=== PATIENT | female | born 1935 | race Caucasian/White ===

== ENCOUNTER → 2017-12-06 15:21 | Outpatient (CLI) | payer MEDICARE, OTHER, SELFPAY | PROVIDERS: Family Provider Family Medicine; PCP Family Medicine; Visit Provider Family Medicine | DX: M81.0 Age-related osteoporosis without current pathological fracture (principal); Z78.0 Asymptomatic menopausal state | CPT/HCPCS: 77080 ==

== ENCOUNTER → 2018-04-05 14:19 | Outpatient (CLI) | payer MEDICARE, OTHER, SELFPAY ==
--- NOTE | 2018-04-05 | DI.MG.S_ITS ---
BILATERAL DIGITAL SCREENING MAMMOGRAM 3D/2D WITH CAD: 04/05/2018 CLINICAL: Routine screening. Family history of breast cancer. Comparison is made to exams dated: 03/01/2017 mammogram, 01/13/2016 mammogram, and 01/11/2015 mammogram - [facility]. There are scattered fibroglandular elements in both breasts. Current study was also evaluated with a Computer Aided Detection (CAD) system. No significant masses, calcifications, or other findings are seen in either breast. There has been no significant interval change. IMPRESSION: NEGATIVE There is no mammographic evidence of malignancy. A 1 year screening mammogram is recommended. This exam was interpreted at Station ID: [id number]. NOTE: For mammograms, a report in lay terms will be sent to the patient. Approximately 15% of breast malignancies will not be visualized mammographically. In the management of a palpable breast mass, a negative mammogram must not discourage biopsy of a clinically suspicious lesion. Electronically Signed By: Ihsan grover/wilma:04/05/2018 16:39:50 letter sent: Normal Exam ACR BI-RADS Category 1: Negative [id number]
== END ==
PROVIDERS: Family Provider Family Medicine; PCP Family Medicine; Visit Provider Family Medicine
DX: Z12.31 Encounter for screening mammogram for malignant neoplasm of breast (principal); Z80.3 Family history of malignant neoplasm of breast
CPT/HCPCS: 77063; 77067

== ENCOUNTER → 2018-10-23 12:07 | Outpatient (CLI) | payer MEDICARE, OTHER, SELFPAY ==
--- NOTE | 2018-10-23 | DI.RAD.S_ITS ---
PROCEDURE: XR THORACIC SPINE 2V INDICATIONS: Pain in thoracic spine TECHNIQUE: 3 views of the thoracic spine were acquired. COMPARISON: None. FINDINGS: Motion artifact limits evaluation of the lateral spine. Bones: No fractures or dislocations. No suspicious bony lesions. Severe degenerative changes are present within the lower thoracic spine including intervertebral disc space narrowing, endplate sclerosis, and osteophytosis. 12 pairs of ribs are noted, and appear intact where visualized. Soft tissues: No paravertebral stripe thickening. Scattered atheromatous calcifications are visualized within the thoracic aorta. IMPRESSION: Thoracic spine osteoarthritis and aortic atherosclerosis. Dictated by: Jailene Julien M.D. on 10/23/2018 at 14:33 Approved by: Jailene Julien M.D. on 10/23/2018 at 14:34
== END ==
PROVIDERS: Family Provider Family Medicine; PCP Family Medicine; Visit Provider Family Medicine
DX: M47.894 Other spondylosis, thoracic region (principal); M54.6 Pain in thoracic spine
CPT/HCPCS: 72070

== ENCOUNTER → 2019-01-20 15:53 | Outpatient (CLI) | payer MEDICARE, OTHER, SELFPAY ==
--- NOTE | 2019-01-20 | DI.RAD.S_ITS ---
PROCEDURE: XR FOOT RT MIN 3V INDICATIONS: Right Foot Pain TECHNIQUE: 3 views of the foot were acquired. COMPARISON: None. FINDINGS: Bones: Diffuse osteopenia. No acute fractures or dislocations. Plantar calcaneal spurring. Multilevel degenerative changes predominantly involving the interphalangeal joints of the first through fifth toes. The distal interphalangeal joints and great toe interphalangeal joint are most pronounced. No osseous erosions or periarticular osteopenia. No suspicious bony lesions. Soft tissues: No tibiotalar joint effusion. Achilles tendon appears normal. IMPRESSION: 1. 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 2. Plantar calcaneal spurring. 3. Diffuse osteopenia. No evidence for erosive/inflammatory arthropathy. Dictated by: Ronald Mitchell M.D. on 01/20/2019 at 17:22 Approved by: Ronald Mitchell M.D. on 01/20/2019 at 17:25
== END ==
PROVIDERS: Family Provider Family Medicine; PCP Family Medicine; Visit Provider Family Medicine
DX: M79.671 Pain in right foot (principal); M77.31 Calcaneal spur, right foot; M85.871 Other specified disorders of bone density and structure, right ankle and foot
CPT/HCPCS: 73630

== ENCOUNTER → 2019-05-05 14:06 | Outpatient (CLI) | payer MEDICARE, OTHER, SELFPAY ==
--- NOTE | 2019-05-05 | DI.MG.S_ITS ---
BILATERAL DIGITAL SCREENING MAMMOGRAM 3D/2D WITH CAD: 05/05/2019 CLINICAL: Routine screening. Family history of breast cancer. Comparison is made to exams dated: 04/05/2018 mammogram, 03/01/2017 mammogram, and 01/13/2016 mammogram - [facility]. There are scattered fibroglandular elements in both breasts. Current study was also evaluated with a Computer Aided Detection (CAD) system. No significant masses, calcifications, or other findings are seen in either breast. There has been no significant interval change. IMPRESSION: NEGATIVE There is no mammographic evidence of malignancy. A 1 year screening mammogram is recommended. This exam was interpreted at Station ID: [id number]. NOTE: For mammograms, a report in lay terms will be sent to the patient. Approximately 15% of breast malignancies will not be visualized mammographically. In the management of a palpable breast mass, a negative mammogram must not discourage biopsy of a clinically suspicious lesion. Electronically Signed By: Ihsan grover/wilma:05/05/2019 15:06:03 letter sent: Normal Exam ACR BI-RADS Category 1: Negative [id number]
== END ==
PROVIDERS: Family Provider Family Medicine; PCP Family Medicine; Referring Provider Family Medicine; Visit Provider Family Medicine
DX: Z12.31 Encounter for screening mammogram for malignant neoplasm of breast (principal); Z80.3 Family history of malignant neoplasm of breast
CPT/HCPCS: 77063; 77067

== ENCOUNTER → 2020-01-13 11:03 | Outpatient (CLI) | payer MEDICARE, OTHER, SELFPAY ==
--- NOTE | 2020-01-13 | DI.RAD.S_ITS ---
PROCEDURE: FL BARIUM SWALLOW W SPEECH INDICATIONS: Other specified symptoms and signs involving the c COMPARISON: TECHNIQUE: Examination was conducted in conjunction with speech pathology per standard protocol. In the lateral projection, filming was performed of the patient swallowing. AP projection filming may also be performed with patient swallowing. COMPARISON: [facility], , CHEST 1 VIEW, 10/13/2015, 19:57. FINDINGS: Function: The oral preparatory phase is within normal limits, with proper containment. The subsequent oral propulsive phase is delayed. There is vallecular pooling which persists throughout the exam. There is intermittent piriform sinus pooling. No laryngotracheal penetration or aspiration demonstrated. Barium tablet transit was not delayed. Morphology: No strictures. Note a large hiatal hernia is seen on remote CXR from 2016. IMPRESSION: Persistent abnormal vallecular pooling throughout the exam. No aspiration. Please see separately prepared speech pathology report. Dictated by: Juan R Quezada M.D. on 01/13/2020 at 12:16 Approved by: Juan R Quezada M.D. on 01/13/2020 at 12:20
== END ==
PROVIDERS: Family Provider Family Medicine; PCP Family Medicine; Referring Provider Family Medicine; Visit Provider Family Medicine
DX: R09.89 Other specified symptoms and signs involving the circulatory and respiratory systems (principal); K44.9 Diaphragmatic hernia without obstruction or gangrene
CPT/HCPCS: 74230; 92611

== ENCOUNTER → 2020-05-05 12:42 | Outpatient (CLI) | payer MEDICARE, OTHER, SELFPAY ==
--- NOTE | 2020-05-05 | DI.RAD.S_ITS ---
PROCEDURE: XR DEXA AXIAL SKELETON INDICATIONS: Z78.0 COMPARISON: [facility], CR, XR DEXA AXIAL SKELETON, 12/06/2017, 15:54. FINDINGS: This blank DEXA report has been sent in error by the PACS system. The correct and complete report will be forthcoming in 1-2 days. Thank you for your patience and understanding. Dictated by: Radha Rodriguez MD, PhD on 05/05/2020 at 17:27 Approved by: Radha Rodriguez MD, PhD on 05/05/2020 at 17:27
== END ==
PROVIDERS: Family Provider Family Medicine; PCP Family Medicine; Referring Provider Family Medicine; Visit Provider Family Medicine
DX: M85.852 Other specified disorders of bone density and structure, left thigh (principal); Z78.0 Asymptomatic menopausal state; Z82.62 Family history of osteoporosis
CPT/HCPCS: 77080

== ENCOUNTER → 2020-05-07 10:12 | Outpatient (CLI) | payer MEDICARE, OTHER, SELFPAY ==
--- NOTE | 2020-05-07 10:14 | DI.RAD.S_ITS ---
PROCEDURE: XR THORACIC SPINE 3V INDICATIONS: THORACIC SPINE PAIN, CERVICAL DJD TECHNIQUE: 3 views of the thoracic spine were acquired. COMPARISON: [facility], CR, XR THORACIC SPINE 2V, 10/23/2018, 12:17. FINDINGS: Bones: No fractures or dislocations. No suspicious bony lesions. Mild rightward scoliosis of thoracic spine centered at T6-7 level is seen with compensatory leftward scoliosis of lumbar spine centered at L2-3 level slightly more exaggerated compared to 2019 study. Degenerative endplate changes throughout mid to lower thoracic spine is again seen, not significantly changed from prior study. 12 pairs of ribs are noted, and appear intact where visualized. Soft tissues: No paravertebral stripe thickening. IMPRESSION: No acute thoracic spine fracture or dislocation. Scoliosis of thoracolumbar spine slightly more exaggerated since previous study. 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 Dictated by: Jani Sims M.D. on 05/07/2020 at 12:11 Approved by: Jani Sims M.D. on 05/07/2020 at 12:13
--- NOTE | 2020-05-07 10:14 | DI.RAD.S_ITS ---
PROCEDURE: XR CERVICAL SPINE 2V OR 3V INDICATIONS: THORACIC SPINE PAIN, CERVICAL DJD TECHNIQUE: 3 view(s) of the cervical spine were acquired. COMPARISON: None. FINDINGS: Bones: No fractures or dislocations to the C7-T1 level. There is straightening of normal cervical lordosis. Degenerative endplate changes and decreased intervertebral disc space at C4-5 through C6-7 levels are seen. The lateral masses of C1 appear intact on the odontoid view. No suspicious bony lesions. Soft tissues: No prevertebral soft tissue swelling. IMPRESSION: No cervical spine fracture or dislocation. Degenerative disc disease throughout mid to lower cervical spine. Dictated by: Jani Sims M.D. on 05/07/2020 at 12:10 Approved by: Jani Sims M.D. on 05/07/2020 at 12:10
== END ==
PROVIDERS: Family Provider Family Medicine; PCP Family Medicine; Referring Provider Family Medicine; Visit Provider Family Medicine
DX: M47.812 Spondylosis without myelopathy or radiculopathy, cervical region (principal); M50.321 Other cervical disc degeneration at C4-C5 level; M41.85 Other forms of scoliosis, thoracolumbar region; M51.34 Other intervertebral disc degeneration, thoracic region
CPT/HCPCS: 72040; 72072

== ENCOUNTER → 2020-05-14 10:08 | Outpatient (CLI) | payer MEDICARE, OTHER, SELFPAY ==
--- NOTE | 2020-05-14 10:11 | DI.MG.S_ITS ---
BILATERAL DIGITAL SCREENING MAMMOGRAM 3D/2D WITH CAD: 05/14/2020 CLINICAL: Routine screening. Family history of breast cancer. Comparison is made to exams dated: 05/05/2019 mammogram, 04/05/2018 mammogram, 03/01/2017 mammogram, 01/13/2016 mammogram, and 01/11/2015 mammogram - . There are scattered fibroglandular elements in both breasts. Current study was also evaluated with a Computer Aided Detection (CAD) system. No significant masses, calcifications, or other findings are seen in either breast. There has been no significant interval change. IMPRESSION: NEGATIVE There is no mammographic evidence of malignancy. A 1 year screening mammogram is recommended. This exam was interpreted at Station ID: [id number]. NOTE: For mammograms, a report in lay terms will be sent to the patient. Approximately 15% of breast malignancies will not be visualized mammographically. In the management of a palpable breast mass, a negative mammogram must not discourage biopsy of a clinically suspicious lesion. Electronically Signed By: Juan R denney/wilma:05/14/2020 13:43:36 letter sent: Normal Exam ACR BI-RADS Category 1: Negative [id number]
== END ==
PROVIDERS: Family Provider Family Medicine; PCP Family Medicine; Referring Provider Family Medicine; Visit Provider Family Medicine
DX: Z12.31 Encounter for screening mammogram for malignant neoplasm of breast (principal); Z80.3 Family history of malignant neoplasm of breast
CPT/HCPCS: 77063; 77067

== ENCOUNTER → 2020-06-11 13:17 | Outpatient (CLI) | payer MEDICARE, OTHER, SELFPAY ==
[2020-06-11] MEDS: COVID-19 VACC, Ad26(JANSSEN)/PF 0.5 ML IM (13:24)
== END ==
PROVIDERS: Family Provider Family Medicine; PCP Family Medicine; Visit Provider Internal Medicine
DX: Z23 Encounter for immunization (principal)
CPT/HCPCS: 0031A; 91303

== ENCOUNTER → 2020-06-29 11:50 | Outpatient (CLI) | payer MEDICARE, OTHER, SELFPAY ==
--- NOTE | 2020-06-29 11:52 | DI.RAD.S_ITS ---
PROCEDURE: XR LUMBAR SPINE MIN 4V INDICATIONS: Scoliosis TECHNIQUE: 5 views of the lumbar spine acquired, including flexion and extension views. COMPARISON: None. FINDINGS: Bones: 5 nonrib-bearing vertebrae are present. Moderate levoscoliosis. Severe multilevel disc degeneration,. Moderate to severe L4-L5 and L5-S1 facet joint arthropathy. Bones are osteopenic. No vertebral body compression fractures. No suspicious bony lesions. Soft tissues: Overlying bowel gas pattern is normal. No suspicious soft tissue calcifications. Vascular calcifications indicate atherosclerosis. IMPRESSION: Multilevel spondylosis and diffuse osteopenia. Dictated by: Nilton Whittingtno [facility] Interpreted: Edgar Hart MD on 06/29/2020 at 17:30 Approved by: Edgar Hart M.D. on 06/30/2020 at 15:24
--- NOTE | 2020-06-29 11:56 | DI.MRI.S_ITS ---
PROCEDURE: MR LUMBAR SPINE WO CON INDICATIONS: SCOLIOSIS TECHNIQUE: Noncontrast sagittal T1 spin echo and T2 fast echo, sagittal STIR, axial T1 and T2 fast spin echo through the lumbar spine. In cases with scoliosis, additional coronal T2 fast spin echo may be performed. COMPARISON: None. FINDINGS: Image quality: Excellent. Alignment and Curvature: There is trace L3-L4 retrolisthesis. There is trace L5-S1 anterolisthesis. There is approximately 22? of convex left thoracolumbar spine scoliosis. Bone Marrow: Marrow is of normal overall signal. No acute vertebral body compression fractures. Spinal Cord: Conus medullaris terminates at the L1 level. Visualized cord demonstrates normal signal and size. Paraspinous Soft Tissues: No paravertebral masses. T12-L1: Loss of disc signal and height. Mild, diffuse disc bulge. Mild bilateral facet hypertrophy. Mild narrowing of the central canal. No neural foraminal narrowing. No neural compression. L1-L2: Near complete loss of disc substance. Mild bilateral facet hypertrophy. No central stenosis. Mild right neural foraminal narrowing. No neural compression. L2-L3: Loss of disc signal and height. Mild, diffuse disc bulge. Mild bilateral facet hypertrophy. Mild narrowing of the central canal. Mild bilateral neural foraminal narrowing. No neural compression L3-L4: Loss of disc signal and height. Mild, diffuse disc bulge. Mild, diffuse disc bulge. Moderate bilateral facet hypertrophy. Mild to moderate narrowing of the central canal. Moderate bilateral neural foraminal narrowing. No neural compression. L4-L5: Loss of disc signal and height. Mild, diffuse disc bulge. Moderate bilateral facet hypertrophy. Mild narrowing of the central canal. Mild right and moderate left neural foraminal narrowing. No neural compression. L5-S1: Loss of disc signal. Mild, diffuse disc bulge. Moderate bilateral facet hypertrophy. No central stenosis. Mild right and moderate left neural foraminal narrowing. No neural compression. IMPRESSION: 1. Convex left scoliosis. 2. Multilevel degenerative disease. 3. Multilevel facet arthropathy. 4. No severe central canal narrowing. 5. No severe neural foraminal narrowing. 6. No neural compression. Dictated by: Radha Rodriguez MD, PhD on 06/29/2020 at 16:24 Approved by: Radha Rodriguez MD, PhD on 06/29/2020 at 16:59
== END ==
PROVIDERS: Family Provider Family Medicine; PCP Family Medicine; Referring Provider Physical Medicine & Rehabilitation; Visit Provider Physical Medicine & Rehabilitation
DX: M41.85 Other forms of scoliosis, thoracolumbar region (principal); M54.5 Low back pain; M51.36 Other intervertebral disc degeneration, lumbar region; M51.37 Other intervertebral disc degeneration, lumbosacral region; M47.816 Spondylosis without myelopathy or radiculopathy, lumbar region; M47.817 Spondylosis without myelopathy or radiculopathy, lumbosacral region; M48.00 Spinal stenosis, site unspecified
CPT/HCPCS: 72110; 72148

== ENCOUNTER → 2020-08-03 08:04 | Outpatient (CLI) | payer MEDICARE, OTHER, SELFPAY ==
[2020-08-03 15:26] LABS: COVID19 -Nasal RAPID Negative (Negative)
== END ==
PROVIDERS: Family Provider Family Medicine; PCP Family Medicine; Visit Provider Physical Medicine & Rehabilitation
DX: Z20.822 Contact with and (suspected) exposure to COVID-19 (principal)
CPT/HCPCS: 87635; C9803

== ENCOUNTER 2020-08-05 12:52 | Outpatient (CLI) | payer MEDICARE, OTHER, SELFPAY ==
[2020-08-05] VITALS (9 sets, daily range): BP systolic 119–188; BP diastolic 56–83; PULSE 60–84; RESP 17–23; TEMP 37.1; O2SAT 96–100
--- NOTE | 2020-08-05 12:54 | DI.RAD.S_ITS ---
PROCEDURE: PAIN L INTERLAMINAR/CAUDAL INJ INDICATIONS: SPONDYLOSIS COMPARISON: [facility], CR, XR LUMBAR SPINE MIN 4V, 06/29/2020, 12:36. FINDINGS: Fluoroscopic spot filming was performed to verify placement of a spinal needle at the L5-S1 level, as labeled on the films. Appropriate location of the needle tip was confirmed by injection of iodinated contrast. IMPRESSION: No significant intraprocedural abnormality. Dictated by: Arron Coleman M.D. on 08/05/2020 at 13:18 Approved by: Arron Coleman M.D. on 08/05/2020 at 13:19
[2020-08-05] MEDS: MIDAZOLAM 5 MG/5 ML VIAL IV (13:37)
[2020-08-05] MEDS: BETAMETHASONE 30 MG/5 ML MDV 6 MG INJ (13:42)
[2020-08-05] MEDS: IOPAMIDOL 15 ML VIAL 3 ML INJ (13:42)
[2020-08-05] MEDS: BUPIVACAINE 0.25% (PF) VIAL 2 ML INJ (13:42)
[2020-08-05] MEDS: DEXAMETHASONE 10 MG/ML VIAL 20 MG INJ (13:43)
--- NOTE | 2020-08-05 13:55 | PM.PROC.IR.1 ---
Date/Time/Diagnoses Date of procedure: 08/05/20 Time of procedure: 13:55 Pre-procedure diagnosis: 1. HNP WITH RADICULAR FEATURES, 2. MULTILEVEL CENTRAL STENOSIS, Post-procedure diagnosis: same Procedure Notes Procedure: 1. FLUOROSCOPICALLY GUIDED CONTRAST CONTROLLED INTERLAMINAR EPIDURAL STEROID INJECTION - L5/S1 Indications: Stacey is referred by Dr. Sheridan for treatment of Bilateral Foraminal Stenosis L>R LE symptoms. Physician: Al Kunz Total Fluoroscopy time (seconds): 10 Total sedation minutes: 11 Complications: none Procedure in detail & Post-procedure care: FINDINGS Multilevel Central Spinal Stenosis with Nerve Root Compression DESCRIPTION OF PROCEDURE Fluoroscopically guided, contrast-controlled L5/S1 translaminar epidural steroid injection. Following review of allergy and review of potential side effects and complications, including, but not necessarily limited to, infection, allergic reaction, local tissue breakdown, temporary as well as permanent nerve injury, paralysis, stroke and possible , the patient indicated that the patient understood and agreed to proceed. An informed consent document was signed by the patient, witnessed by a nurse, and placed in the patient's chart. Additionally, other treatment options including modalities, medications, and physical therapy were reviewed with the patient. After review of previous anaesthesic history and IV conscious sedation the patient was deemed safe to proceed with today?s procedure with IV conscious sedation as ASA class II designation. Safety time-out was performed to confirm patient ID, procedure to be performed and site of procedure. IV sedation was accomplished with a combination of 1mg of Versed administered by the RN after DO order, titrated to patient comfort during the course of the procedure while the patient remained responsive to all verbal commands. In the prone position, following sterile prep and drape of the lumbar region, the L5/S1 translaminar space was identified fluoroscopically. The skin was anesthetized via a 25-gauge, 1.5-inch needle with 1% lidocaine solution. At this point, a 22-gauge short bevel spinal needle was atraumatically introduced and advanced under fluoroscopic guidance into the region of the L5/S1 translaminar space. Depth was confirmed on lateral view. Radiological data, including multiple fluoroscopic views of the lumbar spine, reveal a spinal needle at the L5/S1 translaminar space. Lateral views then show placement of the needle in the epidural space. Subsequent views show contrast material flowing superiorly and inferiorly in the epidural space. No vascular or intrathecal uptake is observed. At this point, using loss of resistance technique with saline and air, the epidural space was entered. This was confirmed following negative aspiration with injection of approximately 1.5cc of Isovue 200, showing excellent epidural flow without vascular or intrathecal uptake. At this point, 1cc of 1% lidocaine solution combined with 3cc or 20mg of dexamethasone and 6mg of betamethasone was injected without incident. The patent tolerated the procedure without signs of symptoms of complications prior to transfer to the recovery area for further monitoring. The patient was then transferred to the recovery area where they were observed for an appropriate period of time after the injection. The patient reported a VAS score of 6 prior to the procedure and a post-procedure VAS of 0. POST OP INSTRUCTIONS The patient was provided a Pain Log to continue to record their response to the target-specific procedure prior to follow-up visit with their referring physician. Additionally, specific post-injection care instructions and a contact number to our office were provided if concerns arise regarding possible complications associated with the procedure are suspected.
== END 2020-08-05 14:27 | disposition home or self-care (01) ==
LOC: RAD 12:53
PROVIDERS: Family Provider Family Medicine; PCP Family Medicine; Referring Provider Family Medicine; Visit Provider Physical Medicine & Rehabilitation
DX: M51.17 Intervertebral disc disorders with radiculopathy, lumbosacral region (principal); M48.07 Spinal stenosis, lumbosacral region
CPT/HCPCS: 62323; 99152; J0702; J1100; J2250; J3010

== ENCOUNTER 2020-08-18 13:45 | Outpatient (RCR) | payer MEDICARE, OTHER, SELFPAY ==
--- NOTE | 2017-08-06 16:52 | PT.OTN ---
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 All documentation prior to July 31 can be found under [employer] saved data. From July 31 forward all medical record documentation will be in [employer] 6.1.
--- NOTE | 2017-08-06 17:42 | PT.OTN ---
Current Diagnoses Scoliosis, unspecified (08/06/17) Spondylosis without myelopathy or radiculopathy, cervical region (08/06/17) Other intervertebral disc degeneration, lumbosacral region (08/06/17) Pain in thoracic spine (08/06/17) Physical Therapy Treatment Note PT-OP-A Visit Information Start: 08/06/17 17:30 Freq: Status: Active Protocol: Activity Type Activity Date Activity User E-Sign Co-Sign Detail Recorded Client Recorded Date Recorded By Document 08/06/17 14:30 [facility] [id number] 08/06/17 17:42 [facility] 08/06/17 14:30 Out-Patient Physical Therapy Visit Information [Visit Information] -Visit Type Treatment Note -Visit Start Time 14:30 -Visit Stop Time 15:15 -Total Visit Minutes 45 -Visit Number 10 -Number of ELECTRICAL DESIGNER DRAFTER Visits 0 [Evaluation Information] -Evaluation Date 05/28/17 PT-OP-C Subjective Start: 08/06/17 17:30 Freq: Status: Active Protocol: Activity Type Activity Date Activity User E-Sign Co-Sign Detail Recorded Client Recorded Date Recorded By Document 08/06/17 14:30 [facility] [id number] 08/06/17 17:42 [facility] 08/06/17 14:30 OP-PT Subjective [Patient Comments] -Patient Comments My shoulder has been feeling reasonably well , but my ribs have started to rub on my pelvis again. -Patient Reported Progress Same PT-OP-Q Treatments Start: 08/06/17 17:30 Freq: Status: Active Protocol: Activity Type Activity Date Activity User E-Sign Co-Sign Detail Recorded Client Recorded Date Recorded By Document 08/06/17 14:30 [facility] [id number] 08/06/17 17:42 [facility] 08/06/17 14:30 Cardio Equipment [Upper Body Ergometer (UBE)] -Duration (Minutes) 5 -RPM 60 -Height 2.5 Therapeutic Exercises [Supine Exercises] 1 -Supine Exercise Name Supine on Towel roll at T10-12 -Side bilateral -Comments increase thoracolumbar extension Manual Therapy Treatment [Soft Tissue Mobilization] 3 -Body Location Quadratus Lumborum -Mobilization Type Myofascial Release Strumming Sustained Pressure -Intensity/Depth Moderate -Body Position Sidelying 2 -Body Location Glute Med -Mobilization Type Strumming Sustained Pressure -Intensity/Depth Moderate -Body Position Sidelying 1 -Body Location Lumbar Erector Spinae -Mobilization Type Myofascial Release Sustained Pressure -Intensity/Depth Moderate -Body Position Sidelying [Joint Mobilizations] 1 -Joint Thoracic Spine -Direction P->A -Grade III -Body Position Sidelying [Manual Traction] Lumbar -Details Hip/Iliac crest depression -Body Position Sidelying PT-OP-T Assessment and Plan Start: 08/06/17 17:30 Freq: Status: Active Protocol: Activity Type Activity Date Activity User E-Sign Co-Sign Detail Recorded Client Recorded Date Recorded By Document 08/06/17 14:30 [facility] [id number] 08/06/17 17:42 [facility] 08/06/17 14:30 Physical Therapy Assessment [Rehab Potential] -Rehabilitation Potential Good [Impairments] -Impairments Functional Mobility Pain Posture ROM Soft Tissue Mobility Strength Tone [Progress Towards Goals] -Progress Towards Goals Slow Progress due to Medical Issues [Assessment Summary] -Assessment Pt continues to have difficulty based on severe Thoracic kyphosis, therapy helping to improve posture and mobility, however following therapy, she only notices benefits for a limited 2-3 days, and then returns to her normal posture. Physical Therapy Plan [Frequency and Duration] -Frequency of Treatment 1x/Week -Plan of Care Start Date 07/30/17 -Plan of Care End Date 10/07/17 [Therapeutic Interventions] -Therapeutic Interventions Aquatic Therapy Home Exercise Program Joint Mobilizations Manual Therapy Neuromuscular Re-education Self-Care/Home Management Soft Tissue Mobilization Therapeutic Exercises -Modalities Cold Pack/Ice Massage Electric Stimulation Hot Packs [Next Visit Focus/Plan] -Next Visit Plan Continued Manual therapy and posture training to help limit thoracic kyphosis
--- NOTE | 2017-08-13 15:44 | PT.OTN ---
Current Diagnoses Scoliosis, unspecified (08/13/17) Spondylosis without myelopathy or radiculopathy, cervical region (08/13/17) Other intervertebral disc degeneration, lumbosacral region (08/13/17) Pain in thoracic spine (08/13/17) Physical Therapy Treatment Note PT-OP-A Visit Information Start: 08/06/17 17:30 Freq: Status: Active Protocol: Document 08/13/17 14:30 DCW (Rec: 08/13/17 15:44 DCW [id number]) Out-Patient Physical Therapy Visit Information Visit Information Visit Type Treatment Note Visit Start Time 14:30 Visit Stop Time 15:15 Total Visit Minutes 45 Visit Number 11 Number of EXTRACT MIXER Visits 0 Evaluation Information Evaluation Date 05/28/17 PT-OP-C Subjective Start: 08/06/17 17:30 Freq: Status: Active Protocol: Document 08/13/17 14:30 DCW (Rec: 08/13/17 15:44 DCW [id number]) OP-PT Subjective Patient Comments Patient Comments I was doing well until I decided to get out and pull some weeds today and then finish up my laundry. Patient Reported Progress Improving PT-OP-Q Treatments Start: 08/06/17 17:30 Freq: Status: Active Protocol: Document 08/13/17 14:30 DCW (Rec: 08/13/17 15:44 DCW [id number]) Cardio Equipment Upper Body Ergometer (UBE) Duration (Minutes) 5 RPM 60 Height 2.5 Therapeutic Exercises Supine Exercises 1 Supine Exercise Name Supine on Towel roll at T10-12 Side bilateral Comments increase thoracolumbar extension Manual Therapy Treatment Soft Tissue Mobilization 3 Body Location Quadratus Lumborum Mobilization Type Myofascial Release Strumming Sustained Pressure Intensity/Depth Moderate Body Position Sidelying 2 Body Location Glute Med Mobilization Type Strumming Sustained Pressure Intensity/Depth Moderate Body Position Sidelying 1 Body Location Lumbar Erector Spinae Mobilization Type Myofascial Release Sustained Pressure Intensity/Depth Moderate Body Position Sidelying Joint Mobilizations 1 Joint Thoracic Spine Direction P->A Grade III Body Position Sidelying Manual Traction Lumbar Details Hip/Iliac crest depression Body Position Sidelying PT-OP-T Assessment and Plan Start: 08/06/17 17:30 Freq: Status: Active Protocol: Document 08/13/17 14:30 DCW (Rec: 08/13/17 15:44 DCW [id number]) Physical Therapy Assessment Rehab Potential Rehabilitation Potential Good Impairments Impairments Functional Mobility Pain Posture ROM Soft Tissue Mobility Strength Tone Progress Towards Goals Progress Towards Goals Slow Progress due to Medical Issues Assessment Summary Assessment Pt reports she felt good following last week, which was more manual therapy than normal for her. Pt tolerated it well, and had fewer complaints of her rib rubbing her pelvis. Physical Therapy Plan Frequency and Duration Frequency of Treatment 1x/Week Plan of Care Start Date 07/30/17 Plan of Care End Date 10/07/17 Therapeutic Interventions Therapeutic Interventions Aquatic Therapy Home Exercise Program Joint Mobilizations Manual Therapy Neuromuscular Re-education Self-Care/Home Management Soft Tissue Mobilization Therapeutic Exercises Modalities Cold Pack/Ice Massage Electric Stimulation Hot Packs Next Visit Focus/Plan Next Visit Plan Continued Manual therapy and posture training to help limit thoracic kyphosis
--- NOTE | 2017-08-20 15:10 | PT.OTN ---
Current Diagnoses Scoliosis, unspecified (08/20/17) Spondylosis without myelopathy or radiculopathy, cervical region (08/20/17) Other intervertebral disc degeneration, lumbosacral region (08/20/17) Pain in thoracic spine (08/20/17) Physical Therapy Treatment Note PT-OP-A Visit Information Start: 08/06/17 17:30 Freq: Status: Active Protocol: Document 08/20/17 14:30 DCW (Rec: 08/20/17 15:10 DCW [id number]) Out-Patient Physical Therapy Visit Information Visit Information Visit Type Treatment Note Visit Start Time 14:30 Visit Stop Time 15:15 Total Visit Minutes 45 Visit Number 12 Number of LATEX SPOOLER Visits 0 Evaluation Information Evaluation Date 05/28/17 PT-OP-C Subjective Start: 08/06/17 17:30 Freq: Status: Active Protocol: Document 08/20/17 14:30 DCW (Rec: 08/20/17 15:10 DCW [id number]) OP-PT Subjective Patient Comments Patient Comments Pt reports her shoulder and thumbs are bothering her a little more today. PT-OP-Q Treatments Start: 08/06/17 17:30 Freq: Status: Active Protocol: Document 08/20/17 14:30 DCW (Rec: 08/20/17 15:10 DCW [id number]) Cardio Equipment Upper Body Ergometer (UBE) Duration (Minutes) 5 RPM 60 Seat Position 13 Height 2.5 Therapeutic Exercises Supine Exercises 1 Supine Exercise Name Supine on Towel roll at T10-12 Side bilateral Comments increase thoracolumbar extension Manual Therapy Treatment Soft Tissue Mobilization 3 Body Location Quadratus Lumborum Mobilization Type Myofascial Release Strumming Sustained Pressure Intensity/Depth Moderate Body Position Sidelying 2 Body Location Glute Med Mobilization Type Strumming Sustained Pressure Intensity/Depth Moderate Body Position Sidelying 1 Body Location Lumbar Erector Spinae Mobilization Type Myofascial Release Sustained Pressure Intensity/Depth Moderate Body Position Sidelying Joint Mobilizations 1 Joint Thoracic Spine Direction P->A Grade III Body Position Sidelying Manual Traction Lumbar Details Hip/Iliac crest depression Body Position Sidelying PT-OP-T Assessment and Plan Start: 08/06/17 17:30 Freq: Status: Active Protocol: Document 08/20/17 14:30 DCW (Rec: 08/20/17 15:10 DCW [id number]) Physical Therapy Assessment Rehab Potential Rehabilitation Potential Good Impairments Impairments Functional Mobility Pain Posture ROM Soft Tissue Mobility Strength Tone Progress Towards Goals Progress Towards Goals Slow Progress due to Medical Issues Assessment Summary Assessment Pt able to stand with less kyphosis following her session today. Physical Therapy Plan Frequency and Duration Frequency of Treatment 1x/Week Plan of Care Start Date 07/30/17 Plan of Care End Date 10/07/17 Therapeutic Interventions Therapeutic Interventions Aquatic Therapy Home Exercise Program Joint Mobilizations Manual Therapy Neuromuscular Re-education Self-Care/Home Management Soft Tissue Mobilization Therapeutic Exercises Modalities Cold Pack/Ice Massage Electric Stimulation Hot Packs Next Visit Focus/Plan Next Visit Plan Manual therapy and TherEx to limit further Kyphosis Please Sign and Return: I have reviewed this Plan of Care and certify that the skilled therapy services above are required to meet the patient???s needs. Physician Signature Date Printed Name and Credentials Clinical Instructor Signature Printed Name and Credentials
--- NOTE | 2017-09-03 15:05 | PT.OTN ---
Current Diagnoses Scoliosis, unspecified (09/03/17) Spondylosis without myelopathy or radiculopathy, cervical region (09/03/17) Other intervertebral disc degeneration, lumbosacral region (09/03/17) Pain in thoracic spine (09/03/17) Physical Therapy Treatment Note PT-OP-A Visit Information Start: 08/06/17 17:30 Freq: Status: Active Protocol: Document 09/03/17 14:25 DCW (Rec: 09/03/17 15:05 DCW [id number]) Out-Patient Physical Therapy Visit Information Visit Information Visit Type Treatment Note Visit Start Time 14:25 Visit Stop Time 15:10 Total Visit Minutes 45 Visit Number 13 Number of CARGO INSPECTOR Visits 0 Evaluation Information Evaluation Date 05/28/17 PT-OP-C Subjective Start: 08/06/17 17:30 Freq: Status: Active Protocol: Document 09/03/17 14:25 DCW (Rec: 09/03/17 15:05 DCW [id number]) OP-PT Subjective Patient Comments Patient Comments It's been a while, and I'm really feeling it. Pt notes she is pretty stiff and sore. PT-OP-Q Treatments Start: 08/06/17 17:30 Freq: Status: Active Protocol: Document 09/03/17 14:25 DCW (Rec: 09/03/17 15:05 DCW [id number]) Cardio Equipment Upper Body Ergometer (UBE) Duration (Minutes) 5 RPM 60 Seat Position 13 Height 2.5 Therapeutic Exercises Supine Exercises 1 Supine Exercise Name Supine on Towel roll at T10-12 Side bilateral Comments increase thoracolumbar extension Manual Therapy Treatment Soft Tissue Mobilization 3 Body Location Quadratus Lumborum Mobilization Type Myofascial Release Strumming Sustained Pressure Intensity/Depth Moderate Body Position Sidelying 2 Body Location Glute Med Mobilization Type Strumming Sustained Pressure Intensity/Depth Moderate Body Position Sidelying 1 Body Location Lumbar Erector Spinae Mobilization Type Myofascial Release Sustained Pressure Intensity/Depth Moderate Body Position Sidelying Joint Mobilizations 1 Joint Thoracic Spine Direction P->A Grade III Body Position Sidelying Manual Traction Lumbar Details Hip/Iliac crest depression Body Position Sidelying PT-OP-T Assessment and Plan Start: 08/06/17 17:30 Freq: Status: Active Protocol: Document 09/03/17 14:25 DCW (Rec: 09/03/17 15:05 DCW [id number]) Physical Therapy Assessment Rehab Potential Rehabilitation Potential Good Impairments Impairments Functional Mobility Pain Posture ROM Soft Tissue Mobility Strength Tone Progress Towards Goals Progress Towards Goals Slow Progress due to Medical Issues Assessment Summary Assessment Pt more sore than normal following her session today due to two weeks between treatment sessions led to increased tone. Physical Therapy Plan Frequency and Duration Frequency of Treatment 1x/Week Plan of Care Start Date 07/30/17 Plan of Care End Date 10/07/17 Therapeutic Interventions Therapeutic Interventions Aquatic Therapy Home Exercise Program Joint Mobilizations Manual Therapy Neuromuscular Re-education Self-Care/Home Management Soft Tissue Mobilization Therapeutic Exercises Modalities Cold Pack/Ice Massage Electric Stimulation Hot Packs Next Visit Focus/Plan Next Visit Plan Manual therapy and TherEx to limit further Kyphosis
--- NOTE | 2017-09-10 15:10 | PT.OTN ---
Current Diagnoses Scoliosis, unspecified (09/10/17) Spondylosis without myelopathy or radiculopathy, cervical region (09/10/17) Other intervertebral disc degeneration, lumbosacral region (09/10/17) Pain in thoracic spine (09/10/17) Physical Therapy Treatment Note PT-OP-A Visit Information Start: 08/06/17 17:30 Freq: Status: Active Protocol: Document 09/10/17 14:30 DCW (Rec: 09/10/17 15:10 DCW [id number]) Out-Patient Physical Therapy Visit Information Visit Information Visit Type Treatment Note Visit Start Time 14:30 Visit Stop Time 15:15 Total Visit Minutes 45 Visit Number 14 Number of RAW STOCK MACHINE FEEDER Visits 0 Evaluation Information Evaluation Date 05/28/17 PT-OP-C Subjective Start: 08/06/17 17:30 Freq: Status: Active Protocol: Document 09/10/17 14:30 DCW (Rec: 09/10/17 15:10 DCW [id number]) OP-PT Subjective Patient Comments Patient Comments It's Sunday, so I'm a little sore from all my weekend chores, but I'm alright. PT-OP-Q Treatments Start: 08/06/17 17:30 Freq: Status: Active Protocol: Document 09/10/17 14:30 DCW (Rec: 09/10/17 15:10 DCW [id number]) Cardio Equipment Upper Body Ergometer (UBE) Duration (Minutes) 5 RPM 60 Seat Position 13 Height 3 PT-OP-T Assessment and Plan Start: 08/06/17 17:30 Freq: Status: Active Protocol: Document 09/10/17 14:30 DCW (Rec: 09/10/17 15:10 DCW [id number]) Physical Therapy Assessment Rehab Potential Rehabilitation Potential Good Impairments Impairments Functional Mobility Pain Posture ROM Soft Tissue Mobility Strength Tone Progress Towards Goals Progress Towards Goals Slow Progress due to Medical Issues Assessment Summary Assessment Pt improved today vs last week , still limited ROM through spine, particularly in the thoracic spine. Physical Therapy Plan Frequency and Duration Frequency of Treatment 1x/Week Plan of Care Start Date 07/30/17 Plan of Care End Date 10/07/17 Therapeutic Interventions Therapeutic Interventions Aquatic Therapy Home Exercise Program Joint Mobilizations Manual Therapy Neuromuscular Re-education Self-Care/Home Management Soft Tissue Mobilization Therapeutic Exercises Modalities Cold Pack/Ice Massage Electric Stimulation Hot Packs Next Visit Focus/Plan Next Visit Plan Manual therapy and TherEx to limit further Kyphosis
--- NOTE | 2017-09-17 15:10 | PT.OTN ---
Current Diagnoses Scoliosis, unspecified (09/17/17) Spondylosis without myelopathy or radiculopathy, cervical region (09/17/17) Other intervertebral disc degeneration, lumbosacral region (09/17/17) Pain in thoracic spine (09/17/17) Physical Therapy Treatment Note PT-OP-A Visit Information Start: 08/06/17 17:30 Freq: Status: Active Protocol: Document 09/17/17 14:30 DCW (Rec: 09/17/17 15:10 DCW [id number]) Out-Patient Physical Therapy Visit Information Visit Information Visit Type Treatment Note Visit Start Time 14:30 Visit Stop Time 15:15 Total Visit Minutes 45 Visit Number 15 Number of TABLEAU DEVELOPER Visits 0 Evaluation Information Evaluation Date 05/28/17 PT-OP-C Subjective Start: 08/06/17 17:30 Freq: Status: Active Protocol: Document 09/17/17 14:30 DCW (Rec: 09/17/17 15:10 DCW [id number]) OP-PT Subjective Patient Comments Patient Comments Pt reports she had a stressful day after her dog got out of their yard and she spent the morning looking for it. PT-OP-Q Treatments Start: 08/06/17 17:30 Freq: Status: Active Protocol: Document 09/17/17 14:30 DCW (Rec: 09/17/17 15:10 DCW [id number]) Cardio Equipment Upper Body Ergometer (UBE) Duration (Minutes) 5 RPM 60 Seat Position 13 Height 3 Therapeutic Exercises Supine Exercises 1 Supine Exercise Name Supine on Towel roll at T10-12 Side bilateral Comments increase thoracolumbar extension Manual Therapy Treatment Soft Tissue Mobilization 3 Body Location Quadratus Lumborum Mobilization Type Myofascial Release Strumming Sustained Pressure Intensity/Depth Moderate Body Position Sidelying 2 Body Location Glute Med Mobilization Type Strumming Sustained Pressure Intensity/Depth Moderate Body Position Sidelying 1 Body Location Lumbar Erector Spinae Mobilization Type Myofascial Release Sustained Pressure Intensity/Depth Moderate Body Position Sidelying Manual Traction Lumbar Details Hip/Iliac crest depression Body Position Sidelying PT-OP-T Assessment and Plan Start: 08/06/17 17:30 Freq: Status: Active Protocol: Document 09/17/17 14:30 DCW (Rec: 09/17/17 15:10 DCW [id number]) Physical Therapy Assessment Rehab Potential Rehabilitation Potential Good Impairments Impairments Functional Mobility Pain Posture ROM Soft Tissue Mobility Strength Tone Progress Towards Goals Progress Towards Goals Slow Progress due to Medical Issues Assessment Summary Assessment Pt improved vs last week, even after her self-reported stressful morning, although lying supine on the towel roll did produce increased complaints of discomfort today . Physical Therapy Plan Frequency and Duration Frequency of Treatment 1x/Week Plan of Care Start Date 07/30/17 Plan of Care End Date 10/07/17 Therapeutic Interventions Therapeutic Interventions Aquatic Therapy Home Exercise Program Joint Mobilizations Manual Therapy Neuromuscular Re-education Self-Care/Home Management Soft Tissue Mobilization Therapeutic Exercises Modalities Cold Pack/Ice Massage Electric Stimulation Hot Packs Next Visit Focus/Plan Next Visit Plan Manual therapy and TherEx to limit further Kyphosis
--- NOTE | 2017-09-24 15:13 | PT.OTN ---
Current Diagnoses Scoliosis, unspecified (09/24/17) Spondylosis without myelopathy or radiculopathy, cervical region (09/24/17) Other intervertebral disc degeneration, lumbosacral region (09/24/17) Pain in thoracic spine (09/24/17) Physical Therapy Treatment Note PT-OP-A Visit Information Start: 08/06/17 17:30 Freq: Status: Active Protocol: Document 09/24/17 14:30 DCW (Rec: 09/24/17 15:13 DCW [id number]) Out-Patient Physical Therapy Visit Information Visit Information Visit Type Treatment Note Visit Start Time 14:30 Visit Stop Time 15:25 Total Visit Minutes 55 Visit Number 16 Number of DIALYSIS NURSE Visits 0 Evaluation Information Evaluation Date 05/28/17 PT-OP-C Subjective Start: 08/06/17 17:30 Freq: Status: Active Protocol: Document 09/24/17 14:30 DCW (Rec: 09/24/17 15:13 DCW [id number]) OP-PT Subjective Patient Comments Patient Comments Pt reports she has already had a busy day, but is feeling pretty good overall PT-OP-Q Treatments Start: 08/06/17 17:30 Freq: Status: Active Protocol: Document 09/24/17 14:30 DCW (Rec: 09/24/17 15:13 DCW [id number]) Cardio Equipment Upper Body Ergometer (UBE) Duration (Minutes) 5 RPM 60 Seat Position 13 Height 3 Therapeutic Exercises Supine Exercises 1 Supine Exercise Name Supine on Towel roll at T10-12 Side bilateral Comments increase thoracolumbar extension Manual Therapy Treatment Soft Tissue Mobilization 3 Body Location Quadratus Lumborum Mobilization Type Myofascial Release Strumming Sustained Pressure Intensity/Depth Moderate Body Position Sidelying 2 Body Location Glute Med Mobilization Type Strumming Sustained Pressure Intensity/Depth Moderate Body Position Sidelying 1 Body Location Lumbar Erector Spinae Mobilization Type Myofascial Release Sustained Pressure Intensity/Depth Moderate Body Position Sidelying Joint Mobilizations 1 Joint Thoracic Spine Direction P->A Grade III Body Position Sidelying Manual Traction Lumbar Details Hip/Iliac crest depression Body Position Sidelying PT-OP-R Modalities Start: 08/06/17 17:30 Freq: Status: Active Protocol: Document 09/24/17 14:30 DCW (Rec: 06/25/18 15:13 DCW [id number]) Electric Stimulation Electric Stimulation Interferential Current (IFC) Body Location Lumbar Spine Duration (Minutes) 15 Intensity 21 Patient Position Sitting Combined With Heat/Cold Hot Pack PT-OP-T Assessment and Plan Start: 08/06/17 17:30 Freq: Status: Active Protocol: Document 09/24/17 14:30 DCW (Rec: 09/24/17 15:13 DCW [id number]) Physical Therapy Assessment Rehab Potential Rehabilitation Potential Good Impairments Impairments Functional Mobility Pain Posture ROM Soft Tissue Mobility Strength Tone Progress Towards Goals Progress Towards Goals Slow Progress due to Medical Issues Assessment Summary Assessment Attempting addition of E-stim and MHP today, pt has previouly had this in past PT sessions, reports it seems to help with her pain and mobility. Physical Therapy Plan Frequency and Duration Frequency of Treatment 1x/Week Plan of Care Start Date 07/30/17 Plan of Care End Date 10/07/17 Therapeutic Interventions Therapeutic Interventions Aquatic Therapy Home Exercise Program Joint Mobilizations Manual Therapy Neuromuscular Re-education Self-Care/Home Management Soft Tissue Mobilization Therapeutic Exercises Modalities Cold Pack/Ice Massage Electric Stimulation Hot Packs Next Visit Focus/Plan Next Note Type Progress Note Next Visit Plan Manual therapy and TherEx to limit further Kyphosis
--- NOTE | 2017-10-04 15:34 | PT.OTN ---
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, lumbosacral region (10/04/17) Pain in thoracic spine (10/04/17) Physical Therapy Treatment Note PT-OP-A Visit Information Start: 08/06/17 17:30 Freq: Status: Active Protocol: Document 10/04/17 14:25 DCW (Rec: 10/04/17 15:34 [facility] [id number]) Out-Patient Physical Therapy Visit Information Visit Information Visit Type Progress Note Visit Start Time 14:25 Visit Stop Time 15:20 Total Visit Minutes 55 Visit Number 17 Number of TREATMENT PLANT MECHANIC Visits 0 Evaluation Information Evaluation Date 05/28/17 PT-OP-B Current Condition Start: 10/04/17 14:21 Freq: Status: Active Protocol: Document 10/04/17 14:25 DCW (Rec: 10/04/17 15:34 [facility] [id number]) Current Condition History of Current Condition History of Current Condition Please see patient's chart in Therapy Source for complete history and initial evaluation Current Functional Impairments (Reported) Functional Limitations- Recreation/ Pt unable to tolerate yard- Hobbies work more than 90 minutes without significant increased pain. PT-OP-C Subjective Start: 08/06/17 17:30 Freq: Status: Active Protocol: Document 10/04/17 14:25 DCW (Rec: 10/04/17 15:34 [facility] [id number]) OP-PT Subjective Patient Comments Patient Comments Pt reports she really needs the hot pack today after spending four hours out gardening yesterday. Patient Reported Progress Same OP-PT Pain Assessment Location Bilateral Back Pain Location Details Thoracic spine, distal ribs, superior hip Intensity 7 Scale Used Numeric (1 - 10) PT-OP-F Manual Assessment Start: 10/04/17 14:21 Freq: Status: Active Protocol: Document 10/04/17 14:25 DCW (Rec: 10/04/17 15:34 [facility] [id number]) Manual Assessments Soft Tissue Assessment Soft Tissue Mobility Assessment Moderate tone in Bilateral thoracic and lumbar paraspinals, piriformis, iliopsoas, and quadratus lumborum. Mild tone in bilateral hamstrings and adductor vinod PT-OP-J Posture/Palpation/Skin Start: 10/04/17 14:21 Freq: Status: Active Protocol: Document 10/04/17 14:25 DCW (Rec: 10/04/17 15:34 DCW [id number]) Posture Evaluation Position Standing Head/C-Spine Posture Forward Head T-Spine Posture Flexible Scoliosis on (L) Increased Kyphosis L-Spine Posture Flexible Scoliosis on (R) Pelvis Posture (L) Iliac Crest Superior Hip Posture (L) Flexed (R) Flexed PT-OP-K Range of Motion Start: 10/04/17 14:21 Freq: Status: Active Protocol: Document 10/04/17 14:25 DCW (Rec: 10/04/17 15:34 DCW [id number]) Lumbar Spine Range of Motion Lumbar Spine Active Degrees Testing Position Standing Comments Max extension, pt is forward flexed 7? at her thoracic spine PT-OP-Q Treatments Start: 08/06/17 17:30 Freq: Status: Active Protocol: Document 10/04/17 14:25 DCW (Rec: 10/04/17 15:34 DCW [id number]) Cardio Equipment Upper Body Ergometer (UBE) Duration (Minutes) 5 RPM 60 Seat Position 13 Height 3 Therapeutic Exercises Supine Exercises 1 Supine Exercise Name Supine on Towel roll at T10-12 Side bilateral Comments increase thoracolumbar extension Manual Therapy Treatment Soft Tissue Mobilization 3 Body Location Quadratus Lumborum Mobilization Type Myofascial Release Strumming Sustained Pressure Intensity/Depth Moderate Body Position Sidelying 2 Body Location Glute Med Mobilization Type Strumming Sustained Pressure Intensity/Depth Moderate Body Position Sidelying 1 Body Location Lumbar Erector Spinae Mobilization Type Myofascial Release Sustained Pressure Intensity/Depth Moderate Body Position Sidelying Joint Mobilizations 1 Joint Thoracic Spine Direction P->A Grade III Body Position Sidelying Manual Traction Lumbar Details Hip/Iliac crest depression Body Position Sidelying PT-OP-R Modalities Start: 08/06/17 17:30 Freq: Status: Active Protocol: Document 10/04/17 14:25 DCW (Rec: 10/04/17 15:34 DCW [id number]) Electric Stimulation Electric Stimulation Interferential Current (IFC) Body Location Lumbar Spine Duration (Minutes) 15 Intensity 21 Patient Position Sitting Combined With Heat/Cold Hot Pack PT-OP-T Assessment and Plan Start: 08/06/17 17:30 Freq: Status: Active Protocol: Document 10/04/17 14:25 DCW (Rec: 10/04/17 15:34 DCW [id number]) Physical Therapy Assessment Rehab Potential Rehabilitation Potential Good Impairments Impairments Functional Mobility Pain Posture ROM Soft Tissue Mobility Strength Tone Goals Four Impairment Palpable muscle tone School Business Administrator Goal (LTG) Pt muscle tone grossly to mild levels of tone LTG Duration 11/15/17 Three Impairment Thoracic Spine ROM Short Term Goal (STG) Thoracic spine to lacking 10 degrees from neutral at full extension STG Duration Met Intermediate Goal (LTG) Thoracic spine to neutral at full extension LTG Duration 11/15/17 Two Impairment Pain Intermediate Goal (LTG) Pt to report decreased pain to a max of 4/10 LTG Duration 11/15/17 One Impairment Activity tolerance Intermediate Goal (LTG) Pt to tolerate gardening with no increased pain for three hours LTG Duration 11/15/17 Progress Towards Goals Progress Towards Goals Slow Progress due to Medical Issues Assessment Summary Assessment Pt tolerated e-stim and heat well last week, requests continued use. Pt made minimal progress since her last reassessment, however she admits that today was not a good day for remeasuring her, as she spent four hours gardening yesterday, and is much more stiff and sore than usual today. Physical Therapy Plan Frequency and Duration Frequency of Treatment 1x/Week Duration of Treatment 10 weeks Plan of Care Start Date 10/04/17 Plan of Care End Date 12/13/17 Therapeutic Interventions Therapeutic Interventions Aquatic Therapy Home Exercise Program Joint Mobilizations Manual Therapy Neuromuscular Re-education Self-Care/Home Management Soft Tissue Mobilization Therapeutic Exercises Modalities Cold Pack/Ice Massage Electric Stimulation Hot Packs Next Visit Focus/Plan Next Note Type Treatment Note Next Visit Plan Manual therapy and TherEx to limit further Kyphosis
--- NOTE | 2017-10-04 15:35 | PT.OPPOC ---
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, lumbosacral region (10/04/17) Pain in thoracic spine (10/04/17) Provider Visit Care Team Role Provider Type Jia Sheridan MD Attending Provider Physician Family Provider Primary Care Provider Specialty: Family Practice Address: [address] [place] [address], [facility] Email: Plan Of Care PT-OP-T Assessment and Plan Start: 08/06/17 17:30 Freq: Status: Active Protocol: Document 10/04/17 14:25 DCW (Rec: 10/04/17 15:34 DCW [id number]) Physical Therapy Assessment Rehab Potential Rehabilitation Potential Good Impairments Impairments Functional Mobility Pain Posture ROM Soft Tissue Mobility Strength Tone Goals Four Impairment Palpable muscle tone Gauge Machine Operator Goal (LTG) Pt muscle tone grossly to mild levels of tone LTG Duration 11/15/17 Three Impairment Thoracic Spine ROM Short Term Goal (STG) Thoracic spine to lacking 10 degrees from neutral at full extension STG Duration Met Fdc Goal (LTG) Thoracic spine to neutral at full extension LTG Duration 11/15/17 Two Impairment Pain Gauge Machine Operator Goal (LTG) Pt to report decreased pain to a max of 4/10 LTG Duration 11/15/17 One Impairment Activity tolerance Fdc Goal (LTG) Pt to tolerate gardening with no increased pain for three hours LTG Duration 11/15/17 Progress Towards Goals Progress Towards Goals Slow Progress due to Medical Issues Assessment Summary Assessment Pt tolerated e-stim and heat well last week, requests continued use. Pt made minimal progress since her last reassessment, however she admits that today was not a good day for remeasuring her, as she spent four hours gardening yesterday, and is much more stiff and sore than usual today. Physical Therapy Plan Frequency and Duration Frequency of Treatment 1x/Week Duration of Treatment 10 weeks Plan of Care Start Date 10/04/17 Plan of Care End Date 12/13/17 Therapeutic Interventions Therapeutic Interventions Aquatic Therapy Home Exercise Program Joint Mobilizations Manual Therapy Neuromuscular Re-education Self-Care/Home Management Soft Tissue Mobilization Therapeutic Exercises Modalities Cold Pack/Ice Massage Electric Stimulation Hot Packs Next Visit Focus/Plan Next Note Type Treatment Note Next Visit Plan Manual therapy and TherEx to limit further Kyphosis Plan of Care Dates Plan of Care Start Date 10/04/17 Plan of Care End Date 12/13/17 Please Sign and Return: I have reviewed this Plan of Care and certify that the skilled therapy services above are required to meet the patient?s needs. Physician Signature Date Printed Name and Credentials Clinical Instructor Signature Printed Name and Credentials
--- NOTE | 2017-10-08 16:59 | PT.OTN ---
Current Diagnoses Scoliosis, unspecified (10/08/17) Spondylosis without myelopathy or radiculopathy, cervical region (10/08/17) Other intervertebral disc degeneration, lumbosacral region (10/08/17) Pain in thoracic spine (10/08/17) Physical Therapy Treatment Note PT-OP-A Visit Information Start: 08/06/17 17:30 Freq: Status: Active Protocol: Document 10/08/17 14:30 DCW (Rec: 10/08/17 16:58 DCW [id number]) Out-Patient Physical Therapy Visit Information Visit Information Visit Type Treatment Note Visit Start Time 14:30 Visit Stop Time 15:25 Total Visit Minutes 55 Visit Number 18 Number of SEARCH CONSULTANT Visits 0 Evaluation Information Evaluation Date 05/28/17 PT-OP-B Current Condition Start: 10/04/17 14:21 Freq: Status: Active Protocol: Document 10/04/17 14:25 DCW (Rec: 10/04/17 15:34 DCW [id number]) Current Condition History of Current Condition History of Current Condition Please see patient's chart in Therapy Source for complete history and initial evaluation Current Functional Impairments (Reported) Functional Limitations- Recreation/ Pt unable to tolerate yard- Hobbies work more than 90 minutes without significant increased pain. PT-OP-C Subjective Start: 08/06/17 17:30 Freq: Status: Active Protocol: Document 10/08/17 14:30 DCW (Rec: 10/08/17 16:58 DCW [id number]) OP-PT Subjective Patient Comments Patient Comments Pt reports being a little sore today, but nothing too bad. PT-OP-F Manual Assessment Start: 10/04/17 14:21 Freq: Status: Active Protocol: Document 10/04/17 14:25 DCW (Rec: 10/04/17 15:34 DCW [id number]) Manual Assessments Soft Tissue Assessment Soft Tissue Mobility Assessment Moderate tone in Bilateral thoracic and lumbar paraspinals, piriformis, iliopsoas, and quadratus lumborum. Mild tone in bilateral hamstrings and adductor vinod PT-OP-J Posture/Palpation/Skin Start: 10/04/17 14:21 Freq: Status: Active Protocol: Document 10/04/17 14:25 DCW (Rec: 10/04/17 15:34 DCW [id number]) Posture Evaluation Position Standing Head/C-Spine Posture Forward Head T-Spine Posture Flexible Scoliosis on (L) Increased Kyphosis L-Spine Posture Flexible Scoliosis on (R) Pelvis Posture (L) Iliac Crest Superior Hip Posture (L) Flexed (R) Flexed PT-OP-K Range of Motion Start: 10/04/17 14:21 Freq: Status: Active Protocol: Document 10/04/17 14:25 DCW (Rec: 10/04/17 15:34 DCW [id number]) Lumbar Spine Range of Motion Lumbar Spine Active Degrees Testing Position Standing Comments Max extension, pt is forward flexed 7? at her thoracic spine PT-OP-Q Treatments Start: 08/06/17 17:30 Freq: Status: Active Protocol: Document 10/08/17 14:30 DCW (Rec: 10/08/17 16:58 DCW [id number]) Cardio Equipment Upper Body Ergometer (UBE) Duration (Minutes) 5 RPM 60 Seat Position 13 Height 3 Therapeutic Exercises Supine Exercises 1 Supine Exercise Name Supine on Towel roll at T10-12 Side bilateral Comments increase thoracolumbar extension Manual Therapy Treatment Soft Tissue Mobilization 3 Body Location Quadratus Lumborum Mobilization Type Myofascial Release Strumming Sustained Pressure Intensity/Depth Moderate Body Position Sidelying 2 Body Location Glute Med Mobilization Type Strumming Sustained Pressure Intensity/Depth Moderate Body Position Sidelying 1 Body Location Lumbar Erector Spinae Mobilization Type Myofascial Release Sustained Pressure Intensity/Depth Moderate Body Position Sidelying Joint Mobilizations 1 Joint Thoracic Spine Direction P->A Grade III Body Position Sidelying Manual Traction Lumbar Details Hip/Iliac crest depression Body Position Sidelying PT-OP-R Modalities Start: 08/06/17 17:30 Freq: Status: Active Protocol: Document 10/08/17 14:30 DCW (Rec: 10/08/17 16:58 DCW [id number]) Electric Stimulation Electric Stimulation Interferential Current (IFC) Body Location Lumbar Spine Duration (Minutes) 15 Intensity 29 Patient Position Sitting Combined With Heat/Cold Hot Pack PT-OP-T Assessment and Plan Start: 08/06/17 17:30 Freq: Status: Active Protocol: Document 10/08/17 14:30 DCW (Rec: 10/08/17 16:58 DCW [id number]) Physical Therapy Assessment Rehab Potential Rehabilitation Potential Good Impairments Impairments Functional Mobility Pain Posture ROM Soft Tissue Mobility Strength Tone Goals Four Impairment Palpable muscle tone Craps Dealer Goal (LTG) Pt muscle tone grossly to mild levels of tone LTG Duration 11/15/17 Three Impairment Thoracic Spine ROM Short Term Goal (STG) Thoracic spine to lacking 10 degrees from neutral at full extension STG Duration Met Craps Dealer Goal (LTG) Thoracic spine to neutral at full extension LTG Duration 11/15/17 Two Impairment Pain Senior Care Goal (LTG) Pt to report decreased pain to a max of 4/10 LTG Duration 11/15/17 One Impairment Activity tolerance Senior Care Goal (LTG) Pt to tolerate gardening with no increased pain for three hours LTG Duration 11/15/17 Progress Towards Goals Progress Towards Goals Slow Progress due to Medical Issues Assessment Summary Assessment Pt improved today vs last visit, much less stiffness and demonstrated increased mobility. Physical Therapy Plan Frequency and Duration Frequency of Treatment 1x/Week Duration of Treatment 10 weeks Plan of Care Start Date 10/04/17 Plan of Care End Date 12/13/17 Therapeutic Interventions Therapeutic Interventions Aquatic Therapy Home Exercise Program Joint Mobilizations Manual Therapy Neuromuscular Re-education Self-Care/Home Management Soft Tissue Mobilization Therapeutic Exercises Modalities Cold Pack/Ice Massage Electric Stimulation Hot Packs Next Visit Focus/Plan Next Note Type Treatment Note Next Visit Plan Manual therapy and TherEx to limit further Kyphosis
--- NOTE | 2017-10-22 15:12 | PT.OTN ---
Current Diagnoses Scoliosis, unspecified (10/22/17) Spondylosis without myelopathy or radiculopathy, cervical region (10/22/17) Other intervertebral disc degeneration, lumbosacral region (10/22/17) Pain in thoracic spine (10/22/17) Physical Therapy Treatment Note PT-OP-A Visit Information Start: 08/06/17 17:30 Freq: Status: Active Protocol: Document 10/22/17 14:30 DCW (Rec: 10/22/17 15:11 DCW [id number]) Out-Patient Physical Therapy Visit Information Visit Information Visit Type Treatment Note Visit Start Time 14:30 Visit Stop Time 15:25 Total Visit Minutes 55 Visit Number 19 Number of FEEDLOT MANAGER Visits 0 Evaluation Information Evaluation Date 05/28/17 PT-OP-B Current Condition Start: 10/04/17 14:21 Freq: Status: Active Protocol: Document 10/04/17 14:25 DCW (Rec: 10/04/17 15:34 DCW [id number]) Current Condition History of Current Condition History of Current Condition Please see patient's chart in Therapy Source for complete history and initial evaluation Current Functional Impairments (Reported) Functional Limitations- Recreation/ Pt unable to tolerate yard- Hobbies work more than 90 minutes without significant increased pain. PT-OP-C Subjective Start: 08/06/17 17:30 Freq: Status: Active Protocol: Document 10/22/17 14:30 DCW (Rec: 10/22/17 15:11 DCW [id number]) OP-PT Subjective Patient Comments Patient Comments I'm tired, my back hurts, but overall I'm alright. PT-OP-F Manual Assessment Start: 10/04/17 14:21 Freq: Status: Active Protocol: Document 10/04/17 14:25 DCW (Rec: 10/04/17 15:34 DCW [id number]) Manual Assessments Soft Tissue Assessment Soft Tissue Mobility Assessment Moderate tone in Bilateral thoracic and lumbar paraspinals, piriformis, iliopsoas, and quadratus lumborum. Mild tone in bilateral hamstrings and adductor vinod PT-OP-J Posture/Palpation/Skin Start: 10/04/17 14:21 Freq: Status: Active Protocol: Document 10/04/17 14:25 DCW (Rec: 10/04/17 15:34 DCW [id number]) Posture Evaluation Position Standing Head/C-Spine Posture Forward Head T-Spine Posture Flexible Scoliosis on (L) Increased Kyphosis L-Spine Posture Flexible Scoliosis on (R) Pelvis Posture (L) Iliac Crest Superior Hip Posture (L) Flexed (R) Flexed PT-OP-K Range of Motion Start: 10/04/17 14:21 Freq: Status: Active Protocol: Document 10/04/17 14:25 DCW (Rec: 10/04/17 15:34 DCW [id number]) Lumbar Spine Range of Motion Lumbar Spine Active Degrees Testing Position Standing Comments Max extension, pt is forward flexed 7? at her thoracic spine PT-OP-Q Treatments Start: 08/06/17 17:30 Freq: Status: Active Protocol: Document 10/22/17 14:30 DCW (Rec: 10/22/17 15:11 DCW [id number]) Cardio Equipment Upper Body Ergometer (UBE) Duration (Minutes) 5 RPM 60 Seat Position 13 Height 3 Therapeutic Exercises Supine Exercises 1 Supine Exercise Name Supine on Towel roll at T10-12 Side bilateral Comments increase thoracolumbar extension Manual Therapy Treatment Soft Tissue Mobilization 3 Body Location Quadratus Lumborum Mobilization Type Myofascial Release Strumming Sustained Pressure Intensity/Depth Moderate Body Position Sidelying 2 Body Location Glute Med Mobilization Type Strumming Sustained Pressure Intensity/Depth Moderate Body Position Sidelying 1 Body Location Lumbar Erector Spinae Mobilization Type Myofascial Release Sustained Pressure Intensity/Depth Moderate Body Position Sidelying Joint Mobilizations 1 Joint Thoracic Spine Direction P->A Grade III Body Position Sidelying Manual Traction Lumbar Details Hip/Iliac crest depression Body Position Sidelying PT-OP-R Modalities Start: 08/06/17 17:30 Freq: Status: Active Protocol: Document 10/22/17 14:30 DCW (Rec: 10/22/17 15:11 DCW [id number]) Electric Stimulation Electric Stimulation Interferential Current (IFC) Body Location Lumbar Spine Duration (Minutes) 15 Intensity 29 Patient Position Sitting Combined With Heat/Cold Hot Pack PT-OP-T Assessment and Plan Start: 08/06/17 17:30 Freq: Status: Active Protocol: Document 10/22/17 14:30 DCW (Rec: 07/23/18 15:11 DCW [id number]) Physical Therapy Assessment Rehab Potential Rehabilitation Potential Good Impairments Impairments Functional Mobility Pain Posture ROM Soft Tissue Mobility Strength Tone Goals Four Impairment Palpable muscle tone Mold Making 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 Goal (LTG) Pt muscle tone grossly to mild levels of tone LTG Duration 11/15/17 Three Impairment Thoracic Spine ROM Short Term Goal (STG) Thoracic spine to lacking 10 degrees from neutral at full extension STG Duration Met [employer] Making 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 Goal (LTG) Thoracic spine to neutral at full extension LTG Duration 11/15/17 Two Impairment Pain Chcf Goal (LTG) Pt to report decreased pain to a max of 4/10 LTG Duration 11/15/17 One Impairment Activity tolerance Chcf Goal (LTG) Pt to tolerate gardening with no increased pain for three hours LTG Duration 11/15/17 Progress Towards Goals Progress Towards Goals Slow Progress due to Medical Issues Assessment Summary Assessment Pt reporting less pain since beginning E-stim Physical Therapy Plan Frequency and Duration Frequency of Treatment 1x/Week Duration of Treatment 10 weeks Plan of Care Start Date 10/04/17 Plan of Care End Date 12/13/17 Therapeutic Interventions Therapeutic Interventions Aquatic Therapy Home Exercise Program Joint Mobilizations Manual Therapy Neuromuscular Re-education Self-Care/Home Management Soft Tissue Mobilization Therapeutic Exercises Modalities Cold Pack/Ice Massage Electric Stimulation Hot Packs Next Visit Focus/Plan Next Note Type Treatment Note Next Visit Plan Manual therapy and TherEx to limit further Kyphosis
--- NOTE | 2017-10-29 15:10 | PT.OTN ---
Current Diagnoses Scoliosis, unspecified (10/29/17) Spondylosis without myelopathy or radiculopathy, cervical region (10/29/17) Other intervertebral disc degeneration, lumbosacral region (10/29/17) Pain in thoracic spine (10/29/17) Physical Therapy Treatment Note PT-OP-A Visit Information Start: 08/06/17 17:30 Freq: Status: Active Protocol: Document 10/29/17 14:30 DCW (Rec: 10/29/17 15:10 DCW [id number]) Out-Patient Physical Therapy Visit Information Visit Information Visit Type Treatment Note Visit Start Time 14:30 Visit Stop Time 15:25 Total Visit Minutes 55 Visit Number 19 Number of HSE COORDINATOR Visits 0 Evaluation Information Evaluation Date 05/28/17 PT-OP-B Current Condition Start: 10/04/17 14:21 Freq: Status: Active Protocol: Document 10/04/17 14:25 DCW (Rec: 10/04/17 15:34 DCW [id number]) Current Condition History of Current Condition History of Current Condition Please see patient's chart in Therapy Source for complete history and initial evaluation Current Functional Impairments (Reported) Functional Limitations- Recreation/ Pt unable to tolerate yard- Hobbies work more than 90 minutes without significant increased pain. PT-OP-C Subjective Start: 08/06/17 17:30 Freq: Status: Active Protocol: Document 10/29/17 14:30 DCW (Rec: 10/29/17 15:10 DCW [id number]) OP-PT Subjective Patient Comments Patient Comments I'm doing okay, but I swept off my porch today, and it hasn't been cleaned in a while , so it was a lot of work. PT-OP-F Manual Assessment Start: 10/04/17 14:21 Freq: Status: Active Protocol: Document 10/04/17 14:25 DCW (Rec: 10/04/17 15:34 DCW [id number]) Manual Assessments Soft Tissue Assessment Soft Tissue Mobility Assessment Moderate tone in Bilateral thoracic and lumbar paraspinals, piriformis, iliopsoas, and quadratus lumborum. Mild tone in bilateral hamstrings and adductor vinod PT-OP-J Posture/Palpation/Skin Start: 10/04/17 14:21 Freq: Status: Active Protocol: Document 10/04/17 14:25 DCW (Rec: 10/04/17 15:34 DCW [id number]) Posture Evaluation Position Standing Head/C-Spine Posture Forward Head T-Spine Posture Flexible Scoliosis on (L) Increased Kyphosis L-Spine Posture Flexible Scoliosis on (R) Pelvis Posture (L) Iliac Crest Superior Hip Posture (L) Flexed (R) Flexed PT-OP-K Range of Motion Start: 10/04/17 14:21 Freq: Status: Active Protocol: Document 10/04/17 14:25 DCW (Rec: 10/04/17 15:34 DCW [id number]) Lumbar Spine Range of Motion Lumbar Spine Active Degrees Testing Position Standing Comments Max extension, pt is forward flexed 7? at her thoracic spine PT-OP-Q Treatments Start: 08/06/17 17:30 Freq: Status: Active Protocol: Document 10/29/17 14:30 DCW (Rec: 10/29/17 15:10 DCW [id number]) Cardio Equipment Upper Body Ergometer (UBE) Duration (Minutes) 5 RPM 60 Seat Position 13 Height 3 Therapeutic Exercises Supine Exercises 1 Supine Exercise Name Supine on Towel roll at T10-12 Side bilateral Comments increase thoracolumbar extension Manual Therapy Treatment Soft Tissue Mobilization 3 Body Location Quadratus Lumborum Mobilization Type Myofascial Release Strumming Sustained Pressure Intensity/Depth Moderate Body Position Sidelying 2 Body Location Glute Med Mobilization Type Strumming Sustained Pressure Intensity/Depth Moderate Body Position Sidelying 1 Body Location Lumbar Erector Spinae Mobilization Type Myofascial Release Sustained Pressure Intensity/Depth Moderate Body Position Sidelying Joint Mobilizations 1 Joint Thoracic Spine Direction P->A Grade III Body Position Sidelying Manual Traction Lumbar Details Hip/Iliac crest depression Body Position Sidelying PT-OP-R Modalities Start: 08/06/17 17:30 Freq: Status: Active Protocol: Document 10/29/17 14:30 DCW (Rec: 10/29/17 15:10 DCW [id number]) Electric Stimulation Electric Stimulation Interferential Current (IFC) Body Location Lumbar Spine Duration (Minutes) 15 Intensity 29 Patient Position Sitting Combined With Heat/Cold Hot Pack PT-OP-T Assessment and Plan Start: 08/06/17 17:30 Freq: Status: Active Protocol: Document 10/29/17 14:30 DCW (Rec: 10/29/17 15:10 DCW [id number]) Physical Therapy Assessment Rehab Potential Rehabilitation Potential Good Impairments Impairments Functional Mobility Pain Posture ROM Soft Tissue Mobility Strength Tone Goals Four Impairment Palpable muscle tone Speedometer Inspector Goal (LTG) Pt muscle tone grossly to mild levels of tone LTG Duration 11/15/17 Three Impairment Thoracic Spine ROM Short Term Goal (STG) Thoracic spine to lacking 10 degrees from neutral at full extension STG Duration Met [facility] Goal (LTG) Thoracic spine to neutral at full extension LTG Duration 11/15/17 Two Impairment Pain Speedometer Inspector Goal (LTG) Pt to report decreased pain to a max of 4/10 LTG Duration 11/15/17 One Impairment Activity tolerance Speedometer Inspector Goal (LTG) Pt to tolerate gardening with no increased pain for three hours LTG Duration 11/15/17 Progress Towards Goals Progress Towards Goals Slow Progress due to Medical Issues Assessment Summary Assessment Pt still progressing slowly, has been experiencing less rubbing of the ribs on her pelvis Physical Therapy Plan Frequency and Duration Frequency of Treatment 1x/Week Duration of Treatment 10 weeks Plan of Care Start Date 10/04/17 Plan of Care End Date 12/13/17 Therapeutic Interventions Therapeutic Interventions Aquatic Therapy Home Exercise Program Joint Mobilizations Manual Therapy Neuromuscular Re-education Self-Care/Home Management Soft Tissue Mobilization Therapeutic Exercises Modalities Cold Pack/Ice Massage Electric Stimulation Hot Packs Next Visit Focus/Plan Next Note Type Treatment Note Next Visit Plan Manual therapy and TherEx to limit further Kyphosis
--- NOTE | 2017-11-05 15:14 | PT.OTN ---
Current Diagnoses Scoliosis, unspecified (11/05/17) Spondylosis without myelopathy or radiculopathy, cervical region (11/05/17) Other intervertebral disc degeneration, lumbosacral region (11/05/17) Pain in thoracic spine (11/05/17) Physical Therapy Treatment Note PT-OP-A Visit Information Start: 08/06/17 17:30 Freq: Status: Active Protocol: Document 11/05/17 14:30 DCW (Rec: 11/05/17 15:13 DCW [id number]) Out-Patient Physical Therapy Visit Information Visit Information Visit Type Treatment Note Visit Start Time 14:30 Visit Stop Time 15:25 Total Visit Minutes 55 Visit Number 21 Number of CERTIFIED FAMILY MEDIATOR Visits 0 Evaluation Information Evaluation Date 05/28/17 PT-OP-B Current Condition Start: 10/04/17 14:21 Freq: Status: Active Protocol: Document 10/04/17 14:25 DCW (Rec: 10/04/17 15:34 DCW [id number]) Current Condition History of Current Condition History of Current Condition Please see patient's chart in Therapy Source for complete history and initial evaluation Current Functional Impairments (Reported) Functional Limitations- Recreation/ Pt unable to tolerate yard- Hobbies work more than 90 minutes without significant increased pain. PT-OP-C Subjective Start: 08/06/17 17:30 Freq: Status: Active Protocol: Document 11/05/17 14:30 DCW (Rec: 11/05/17 15:13 DCW [id number]) OP-PT Subjective Patient Comments Patient Comments Pt reports she is doing well following a relaxing weekend. PT-OP-F Manual Assessment Start: 10/04/17 14:21 Freq: Status: Active Protocol: Document 10/04/17 14:25 DCW (Rec: 10/04/17 15:34 DCW [id number]) Manual Assessments Soft Tissue Assessment Soft Tissue Mobility Assessment Moderate tone in Bilateral thoracic and lumbar paraspinals, piriformis, iliopsoas, and quadratus lumborum. Mild tone in bilateral hamstrings and adductor vinod PT-OP-J Posture/Palpation/Skin Start: 10/04/17 14:21 Freq: Status: Active Protocol: Document 10/04/17 14:25 DCW (Rec: 10/04/17 15:34 DCW [id number]) Posture Evaluation Position Standing Head/C-Spine Posture Forward Head T-Spine Posture Flexible Scoliosis on (L) Increased Kyphosis L-Spine Posture Flexible Scoliosis on (R) Pelvis Posture (L) Iliac Crest Superior Hip Posture (L) Flexed (R) Flexed PT-OP-K Range of Motion Start: 10/04/17 14:21 Freq: Status: Active Protocol: Document 10/04/17 14:25 DCW (Rec: 10/04/17 15:34 DCW [id number]) Lumbar Spine Range of Motion Lumbar Spine Active Degrees Testing Position Standing Comments Max extension, pt is forward flexed 7? at her thoracic spine PT-OP-Q Treatments Start: 08/06/17 17:30 Freq: Status: Active Protocol: Document 11/05/17 14:30 DCW (Rec: 11/05/17 15:13 DCW [id number]) Cardio Equipment Upper Body Ergometer (UBE) Duration (Minutes) 5 RPM 60 Seat Position 13 Height 3 Therapeutic Exercises Supine Exercises 1 Supine Exercise Name Supine on Towel roll at T10-12 Side bilateral Comments increase thoracolumbar extension Manual Therapy Treatment Soft Tissue Mobilization 3 Body Location Quadratus Lumborum Mobilization Type Myofascial Release Strumming Sustained Pressure Intensity/Depth Moderate Body Position Sidelying 2 Body Location Glute Med Mobilization Type Strumming Sustained Pressure Intensity/Depth Moderate Body Position Sidelying 1 Body Location Lumbar Erector Spinae Mobilization Type Myofascial Release Sustained Pressure Intensity/Depth Moderate Body Position Sidelying Joint Mobilizations 1 Joint Thoracic Spine Direction P->A Grade III Body Position Sidelying Manual Traction Lumbar Details Hip/Iliac crest depression Body Position Sidelying PT-OP-R Modalities Start: 08/06/17 17:30 Freq: Status: Active Protocol: Document 11/05/17 14:30 DCW (Rec: 11/05/17 15:13 DCW [id number]) Electric Stimulation Electric Stimulation Interferential Current (IFC) Body Location Lumbar Spine Duration (Minutes) 15 Intensity 29 Patient Position Sitting Combined With Heat/Cold Hot Pack PT-OP-T Assessment and Plan Start: 08/06/17 17:30 Freq: Status: Active Protocol: Document 11/05/17 14:30 DCW (Rec: 11/05/17 15:14 DCW [id number]) Physical Therapy Assessment Rehab Potential Rehabilitation Potential Good Impairments Impairments Functional Mobility Pain Posture ROM Soft Tissue Mobility Strength Tone Goals Four Impairment Palpable muscle tone Geometrician Goal (LTG) Pt muscle tone grossly to mild levels of tone LTG Duration 11/15/17 Three Impairment Thoracic Spine ROM Short Term Goal (STG) Thoracic spine to lacking 10 degrees from neutral at full extension STG Duration Met Geometrician Goal (LTG) Thoracic spine to neutral at full extension LTG Duration 11/15/17 Two Impairment Pain Detention Goal (LTG) Pt to report decreased pain to a max of 4/10 LTG Duration 11/15/17 One Impairment Activity tolerance Geometrician Goal (LTG) Pt to tolerate gardening with no increased pain for three hours LTG Duration 11/15/17 Progress Towards Goals Progress Towards Goals Slow Progress due to Medical Issues Assessment Summary Assessment Pt tolerated treatment well today Physical Therapy Plan Frequency and Duration Frequency of Treatment 1x/Week Duration of Treatment 10 weeks Plan of Care Start Date 10/04/17 Plan of Care End Date 12/13/17 Therapeutic Interventions Therapeutic Interventions Aquatic Therapy Home Exercise Program Joint Mobilizations Manual Therapy Neuromuscular Re-education Self-Care/Home Management Soft Tissue Mobilization Therapeutic Exercises Modalities Cold Pack/Ice Massage Electric Stimulation Hot Packs Next Visit Focus/Plan Next Note Type Treatment Note Next Visit Plan Manual therapy and TherEx to limit further Kyphosis
--- NOTE | 2017-11-21 15:57 | PT.OTN ---
Current Diagnoses Scoliosis, unspecified (11/21/17) Spondylosis without myelopathy or radiculopathy, cervical region (11/21/17) Other intervertebral disc degeneration, lumbosacral region (11/21/17) Pain in thoracic spine (11/21/17) Physical Therapy Treatment Note PT-OP-A Visit Information Start: 08/06/17 17:30 Freq: Status: Active Protocol: Document 11/21/17 15:15 DCW (Rec: 11/21/17 15:56 DCW [id number]) Out-Patient Physical Therapy Visit Information Visit Information Visit Type Treatment Note Visit Start Time 15:15 Visit Stop Time 16:10 Total Visit Minutes 55 Visit Number 22 Number of RESIDENTIAL SUBCONTRACTOR Visits 0 Evaluation Information Evaluation Date 05/28/17 PT-OP-B Current Condition Start: 10/04/17 14:21 Freq: Status: Active Protocol: Document 10/04/17 14:25 DCW (Rec: 10/04/17 15:34 DCW [id number]) Current Condition History of Current Condition History of Current Condition Please see patient's chart in Therapy Source for complete history and initial evaluation Current Functional Impairments (Reported) Functional Limitations- Recreation/ Pt unable to tolerate yard- Hobbies work more than 90 minutes without significant increased pain. PT-OP-C Subjective Start: 08/06/17 17:30 Freq: Status: Active Protocol: Document 11/21/17 15:15 DCW (Rec: 11/21/17 15:56 DCW [id number]) OP-PT Subjective Patient Comments Patient Comments Pt doing well today, but notes some shoulder and hand pain. PT-OP-F Manual Assessment Start: 10/04/17 14:21 Freq: Status: Active Protocol: Document 10/04/17 14:25 DCW (Rec: 10/04/17 15:34 DCW [id number]) Manual Assessments Soft Tissue Assessment Soft Tissue Mobility Assessment Moderate tone in Bilateral thoracic and lumbar paraspinals, piriformis, iliopsoas, and quadratus lumborum. Mild tone in bilateral hamstrings and adductor vinod PT-OP-J Posture/Palpation/Skin Start: 10/04/17 14:21 Freq: Status: Active Protocol: Document 10/04/17 14:25 DCW (Rec: 10/04/17 15:34 DCW [id number]) Posture Evaluation Position Standing Head/C-Spine Posture Forward Head T-Spine Posture Flexible Scoliosis on (L) Increased Kyphosis L-Spine Posture Flexible Scoliosis on (R) Pelvis Posture (L) Iliac Crest Superior Hip Posture (L) Flexed (R) Flexed PT-OP-K Range of Motion Start: 10/04/17 14:21 Freq: Status: Active Protocol: Document 10/04/17 14:25 DCW (Rec: 10/04/17 15:34 DCW [id number]) Lumbar Spine Range of Motion Lumbar Spine Active Degrees Testing Position Standing Comments Max extension, pt is forward flexed 7? at her thoracic spine PT-OP-Q Treatments Start: 08/06/17 17:30 Freq: Status: Active Protocol: Document 11/21/17 15:15 DCW (Rec: 11/21/17 15:56 DCW [id number]) Cardio Equipment Upper Body Ergometer (UBE) Duration (Minutes) 5 RPM 60 Seat Position 13 Height 3 Therapeutic Exercises Supine Exercises 1 Supine Exercise Name Supine on Towel roll at T10-12 Side bilateral Comments increase thoracolumbar extension Manual Therapy Treatment Soft Tissue Mobilization 3 Body Location Quadratus Lumborum Mobilization Type Myofascial Release Strumming Sustained Pressure Intensity/Depth Moderate Body Position Sidelying 2 Body Location Glute Med Mobilization Type Strumming Sustained Pressure Intensity/Depth Moderate Body Position Sidelying 1 Body Location Lumbar Erector Spinae Mobilization Type Myofascial Release Sustained Pressure Intensity/Depth Moderate Body Position Sidelying Joint Mobilizations 1 Joint Thoracic Spine Direction P->A Grade III Body Position Sidelying Manual Traction Lumbar Details Hip/Iliac crest depression Body Position Sidelying PT-OP-R Modalities Start: 08/06/17 17:30 Freq: Status: Active Protocol: Document 11/21/17 15:15 DCW (Rec: 11/21/17 15:56 DCW [id number]) Electric Stimulation Electric Stimulation Interferential Current (IFC) Body Location Lumbar Spine Duration (Minutes) 15 Intensity 29 Patient Position Sitting Combined With Heat/Cold Hot Pack PT-OP-T Assessment and Plan Start: 08/06/17 17:30 Freq: Status: Active Protocol: Document 11/21/17 15:15 DCW (Rec: 11/21/17 15:56 DCW [id number]) Physical Therapy Assessment Rehab Potential Rehabilitation Potential Good Impairments Impairments Functional Mobility Pain Posture ROM Soft Tissue Mobility Strength Tone Goals Four Impairment Palpable muscle tone Integration Aide Goal (LTG) Pt muscle tone grossly to mild levels of tone LTG Duration 11/15/17 Three Impairment Thoracic Spine ROM Short Term Goal (STG) Thoracic spine to lacking 10 degrees from neutral at full extension STG Duration Met Integration Aide Goal (LTG) Thoracic spine to neutral at full extension LTG Duration 11/15/17 Two Impairment Pain Fpc Goal (LTG) Pt to report decreased pain to a max of 4/10 LTG Duration 11/15/17 One Impairment Activity tolerance Fpc Goal (LTG) Pt to tolerate gardening with no increased pain for three hours LTG Duration 11/15/17 Progress Towards Goals Progress Towards Goals Slow Progress due to Medical Issues Assessment Summary Assessment Pt continues to make small improvements in her posture and thoracic kyphosis. Physical Therapy Plan Frequency and Duration Frequency of Treatment 1x/Week Duration of Treatment 10 weeks Plan of Care Start Date 10/04/17 Plan of Care End Date 12/13/17 Therapeutic Interventions Therapeutic Interventions Aquatic Therapy Home Exercise Program Joint Mobilizations Manual Therapy Neuromuscular Re-education Self-Care/Home Management Soft Tissue Mobilization Therapeutic Exercises Modalities Cold Pack/Ice Massage Electric Stimulation Hot Packs Next Visit Focus/Plan Next Note Type Treatment Note Next Visit Plan Manual therapy and TherEx to limit further Kyphosis
--- NOTE | 2017-11-27 16:47 | PT.OTN ---
Current Diagnoses Scoliosis, unspecified (11/27/17) Spondylosis without myelopathy or radiculopathy, cervical region (11/27/17) Other intervertebral disc degeneration, lumbosacral region (11/27/17) Pain in thoracic spine (11/27/17) Physical Therapy Treatment Note PT-OP-A Visit Information Start: 08/06/17 17:30 Freq: Status: Active Protocol: Document 11/27/17 16:00 DCW (Rec: 11/27/17 16:47 DCW [id number]) Out-Patient Physical Therapy Visit Information Visit Information Visit Type Treatment Note Visit Start Time 16:00 Visit Stop Time 16:55 Total Visit Minutes 55 Visit Number 23 Number of LIFE INSURANCE SALES AGENT Visits 0 Evaluation Information Evaluation Date 05/28/17 PT-OP-B Current Condition Start: 10/04/17 14:21 Freq: Status: Active Protocol: Document 10/04/17 14:25 DCW (Rec: 10/04/17 15:34 DCW [id number]) Current Condition History of Current Condition History of Current Condition Please see patient's chart in Therapy Source for complete history and initial evaluation Current Functional Impairments (Reported) Functional Limitations- Recreation/ Pt unable to tolerate yard- Hobbies work more than 90 minutes without significant increased pain. PT-OP-C Subjective Start: 08/06/17 17:30 Freq: Status: Active Protocol: Document 11/27/17 16:00 DCW (Rec: 11/27/17 16:47 DCW [id number]) OP-PT Subjective Patient Comments Patient Comments Pt reports she is doing well today. PT-OP-F Manual Assessment Start: 10/04/17 14:21 Freq: Status: Active Protocol: Document 10/04/17 14:25 DCW (Rec: 10/04/17 15:34 DCW [id number]) Manual Assessments Soft Tissue Assessment Soft Tissue Mobility Assessment Moderate tone in Bilateral thoracic and lumbar paraspinals, piriformis, iliopsoas, and quadratus lumborum. Mild tone in bilateral hamstrings and adductor vinod PT-OP-J Posture/Palpation/Skin Start: 10/04/17 14:21 Freq: Status: Active Protocol: Document 10/04/17 14:25 DCW (Rec: 10/04/17 15:34 DCW [id number]) Posture Evaluation Position Standing Head/C-Spine Posture Forward Head T-Spine Posture Flexible Scoliosis on (L) Increased Kyphosis L-Spine Posture Flexible Scoliosis on (R) Pelvis Posture (L) Iliac Crest Superior Hip Posture (L) Flexed (R) Flexed PT-OP-K Range of Motion Start: 10/04/17 14:21 Freq: Status: Active Protocol: Document 10/04/17 14:25 DCW (Rec: 10/04/17 15:34 DCW [id number]) Lumbar Spine Range of Motion Lumbar Spine Active Degrees Testing Position Standing Comments Max extension, pt is forward flexed 7? at her thoracic spine PT-OP-Q Treatments Start: 08/06/17 17:30 Freq: Status: Active Protocol: Document 11/27/17 16:00 DCW (Rec: 11/27/17 16:47 DCW [id number]) Cardio Equipment Upper Body Ergometer (UBE) Duration (Minutes) 5 RPM 60 Seat Position 13 Height 3 Therapeutic Exercises Supine Exercises 1 Supine Exercise Name Supine on Towel roll at T10-12 Side bilateral Comments increase thoracolumbar extension Manual Therapy Treatment Soft Tissue Mobilization 3 Body Location Quadratus Lumborum Mobilization Type Myofascial Release Strumming Sustained Pressure Intensity/Depth Moderate Body Position Sidelying 2 Body Location Glute Med Mobilization Type Strumming Sustained Pressure Intensity/Depth Moderate Body Position Sidelying 1 Body Location Lumbar Erector Spinae Mobilization Type Myofascial Release Sustained Pressure Intensity/Depth Moderate Body Position Sidelying Joint Mobilizations 1 Joint Thoracic Spine Direction P->A Grade III Body Position Sidelying Manual Traction Lumbar Details Hip/Iliac crest depression Body Position Sidelying PT-OP-R Modalities Start: 08/06/17 17:30 Freq: Status: Active Protocol: Document 11/27/17 16:00 DCW (Rec: 11/27/17 16:47 DCW [id number]) Electric Stimulation Electric Stimulation Interferential Current (IFC) Body Location Lumbar Spine Duration (Minutes) 15 Intensity 30 Patient Position Sitting Combined With Heat/Cold Hot Pack PT-OP-T Assessment and Plan Start: 08/06/17 17:30 Freq: Status: Active Protocol: Document 11/27/17 16:00 DCW (Rec: 11/27/17 16:47 DCW [id number]) Physical Therapy Assessment Rehab Potential Rehabilitation Potential Good Impairments Impairments Functional Mobility Pain Posture ROM Soft Tissue Mobility Strength Tone Goals Four Impairment Palpable muscle tone Chemistry Manager Goal (LTG) Pt muscle tone grossly to mild levels of tone LTG Duration 11/15/17 Three Impairment Thoracic Spine ROM Short Term Goal (STG) Thoracic spine to lacking 10 degrees from neutral at full extension STG Duration Met Chemistry Manager Goal (LTG) Thoracic spine to neutral at full extension LTG Duration 11/15/17 Two Impairment Pain Penitentiary Goal (LTG) Pt to report decreased pain to a max of 4/10 LTG Duration 11/15/17 One Impairment Activity tolerance Chemistry Manager Goal (LTG) Pt to tolerate gardening with no increased pain for three hours LTG Duration 11/15/17 Progress Towards Goals Progress Towards Goals Slow Progress due to Medical Issues Assessment Summary Assessment Pt continues to progress slowly. Physical Therapy Plan Frequency and Duration Frequency of Treatment 1x/Week Duration of Treatment 10 weeks Plan of Care Start Date 10/04/17 Plan of Care End Date 12/13/17 Therapeutic Interventions Therapeutic Interventions Aquatic Therapy Home Exercise Program Joint Mobilizations Manual Therapy Neuromuscular Re-education Self-Care/Home Management Soft Tissue Mobilization Therapeutic Exercises Modalities Cold Pack/Ice Massage Electric Stimulation Hot Packs Next Visit Focus/Plan Next Note Type Treatment Note Next Visit Plan Manual therapy and TherEx to limit further Kyphosis
--- NOTE | 2017-12-06 17:25 | PT.OTN ---
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) Other intervertebral disc degeneration, lumbosacral region (12/06/17) Pain in thoracic spine (12/06/17) Physical Therapy Treatment Note PT-OP-A Visit Information Start: 08/06/17 17:30 Freq: Status: Active Protocol: Document 12/06/17 16:45 DCW (Rec: 12/06/17 17:25 DCW [id number]) Out-Patient Physical Therapy Visit Information Visit Information Visit Type Treatment Note Visit Start Time 16:45 Visit Stop Time 17:40 Total Visit Minutes 55 Visit Number 24 Number of COURIER DRIVER Visits 0 Evaluation Information Evaluation Date 05/28/17 PT-OP-B Current Condition Start: 10/04/17 14:21 Freq: Status: Active Protocol: Document 10/04/17 14:25 DCW (Rec: 10/04/17 15:34 DCW [id number]) Current Condition History of Current Condition History of Current Condition Please see patient's chart in Therapy Source for complete history and initial evaluation Current Functional Impairments (Reported) Functional Limitations- Recreation/ Pt unable to tolerate yard- Hobbies work more than 90 minutes without significant increased pain. PT-OP-C Subjective Start: 08/06/17 17:30 Freq: Status: Active Protocol: Document 12/06/17 16:45 DCW (Rec: 12/06/17 17:25 DCW [id number]) OP-PT Subjective Patient Comments Patient Comments Pt has no new complaints today . PT-OP-F Manual Assessment Start: 10/04/17 14:21 Freq: Status: Active Protocol: Document 10/04/17 14:25 DCW (Rec: 10/04/17 15:34 DCW [id number]) Manual Assessments Soft Tissue Assessment Soft Tissue Mobility Assessment Moderate tone in Bilateral thoracic and lumbar paraspinals, piriformis, iliopsoas, and quadratus lumborum. Mild tone in bilateral hamstrings and adductor vinod PT-OP-J Posture/Palpation/Skin Start: 10/04/17 14:21 Freq: Status: Active Protocol: Document 10/04/17 14:25 DCW (Rec: 10/04/17 15:34 DCW [id number]) Posture Evaluation Position Standing Head/C-Spine Posture Forward Head T-Spine Posture Flexible Scoliosis on (L) Increased Kyphosis L-Spine Posture Flexible Scoliosis on (R) Pelvis Posture (L) Iliac Crest Superior Hip Posture (L) Flexed (R) Flexed PT-OP-K Range of Motion Start: 10/04/17 14:21 Freq: Status: Active Protocol: Document 10/04/17 14:25 DCW (Rec: 10/04/17 15:34 DCW [id number]) Lumbar Spine Range of Motion Lumbar Spine Active Degrees Testing Position Standing Comments Max extension, pt is forward flexed 7? at her thoracic spine PT-OP-Q Treatments Start: 08/06/17 17:30 Freq: Status: Active Protocol: Document 12/06/17 16:45 DCW (Rec: 12/06/17 17:25 DCW [id number]) Cardio Equipment Upper Body Ergometer (UBE) Duration (Minutes) 5 RPM 60 Seat Position 12 Height 3 Therapeutic Exercises Supine Exercises 1 Supine Exercise Name Supine on Towel roll at T10-12 Side bilateral Comments increase thoracolumbar extension Manual Therapy Treatment Soft Tissue Mobilization 3 Body Location Quadratus Lumborum Mobilization Type Myofascial Release Strumming Sustained Pressure Intensity/Depth Moderate Body Position Sidelying 2 Body Location Glute Med Mobilization Type Strumming Sustained Pressure Intensity/Depth Moderate Body Position Sidelying 1 Body Location Lumbar Erector Spinae Mobilization Type Myofascial Release Sustained Pressure Intensity/Depth Moderate Body Position Sidelying Joint Mobilizations 1 Joint Thoracic Spine Direction P->A Grade III Body Position Sidelying Manual Traction Lumbar Details Hip/Iliac crest depression Body Position Sidelying PT-OP-R Modalities Start: 08/06/17 17:30 Freq: Status: Active Protocol: Document 12/06/17 16:45 DCW (Rec: 12/06/17 17:25 DCW [id number]) Electric Stimulation Electric Stimulation Interferential Current (IFC) Body Location Lumbar Spine Duration (Minutes) 15 Intensity 30 Patient Position Sitting Combined With Heat/Cold Hot Pack PT-OP-T Assessment and Plan Start: 08/06/17 17:30 Freq: Status: Active Protocol: Document 12/06/17 16:45 DCW (Rec: 12/06/17 17:25 DCW [id number]) Physical Therapy Assessment Rehab Potential Rehabilitation Potential Good Impairments Impairments Functional Mobility Pain Posture ROM Soft Tissue Mobility Strength Tone Goals Four Impairment Palpable muscle tone Network Design Architect Goal (LTG) Pt muscle tone grossly to mild levels of tone LTG Duration 11/15/17 Three Impairment Thoracic Spine ROM Short Term Goal (STG) Thoracic spine to lacking 10 degrees from neutral at full extension STG Duration Met Network Design Architect Goal (LTG) Thoracic spine to neutral at full extension LTG Duration 11/15/17 Two Impairment Pain Penitentiary Goal (LTG) Pt to report decreased pain to a max of 4/10 LTG Duration 11/15/17 One Impairment Activity tolerance Network Design Architect Goal (LTG) Pt to tolerate gardening with no increased pain for three hours LTG Duration 11/15/17 Progress Towards Goals Progress Towards Goals Slow Progress due to Medical Issues Assessment Summary Assessment Pt had a Dexa scan today to determine if she has progressed to Osteoporosis, although this is unlikely to effect her treatment plan. Otherwise, pt tolerated treatment well. Pt has had less frequent rib pain from her ribs rubbing on her ilium. Physical Therapy Plan Frequency and Duration Frequency of Treatment 1x/Week Duration of Treatment 10 weeks Plan of Care Start Date 10/04/17 Plan of Care End Date 12/13/17 Therapeutic Interventions Therapeutic Interventions Aquatic Therapy Home Exercise Program Joint Mobilizations Manual Therapy Neuromuscular Re-education Self-Care/Home Management Soft Tissue Mobilization Therapeutic Exercises Modalities Cold Pack/Ice Massage Electric Stimulation Hot Packs Next Visit Focus/Plan Next Note Type Progress Note Next Visit Plan Manual therapy and TherEx to limit further Kyphosis
--- NOTE | 2017-12-10 14:33 | PT.OTN ---
Current Diagnoses Scoliosis, unspecified (12/10/17) Spondylosis without myelopathy or radiculopathy, cervical region (12/10/17) Other intervertebral disc degeneration, lumbosacral region (12/10/17) Pain in thoracic spine (12/10/17) Physical Therapy Treatment Note PT-OP-A Visit Information Start: 08/06/17 17:30 Freq: Status: Active Protocol: Document 12/10/17 13:45 DCW (Rec: 12/10/17 14:32 DCW [id number]) Out-Patient Physical Therapy Visit Information Visit Information Visit Type Re-Evaluation Visit Start Time 13:45 Visit Stop Time 14:40 Total Visit Minutes 55 Visit Number 25 Number of EARLY MORNING Visits 0 Evaluation Information Evaluation Date 05/28/17 PT-OP-B Current Condition Start: 10/04/17 14:21 Freq: Status: Active Protocol: Document 12/10/17 13:45 DCW (Rec: 12/10/17 13:56 DCW [id number]) Current Condition History of Current Condition History of Current Condition Please see patient's chart in Therapy Source for complete history and initial evaluation Current Functional Impairments (Reported) Functional Limitations- Recreation/ Pt unable to tolerate yard- Hobbies work more than 60 minutes without significant increased pain in her shoulders. PT-OP-C Subjective Start: 08/06/17 17:30 Freq: Status: Active Protocol: Document 12/10/17 13:45 DCW (Rec: 12/10/17 14:32 DCW [id number]) OP-PT Subjective Patient Comments Patient Comments Pt reports her biggest limitation when out gardening is now her shoulders. PT-OP-F Manual Assessment Start: 10/04/17 14:21 Freq: Status: Active Protocol: Document 12/10/17 13:45 DCW (Rec: 12/10/17 13:56 DCW [id number]) Manual Assessments Soft Tissue Assessment Soft Tissue Mobility Assessment Moderate tone in Bilateral thoracic and lumbar paraspinals, piriformis, iliopsoas, and quadratus lumborum. Mild tone in bilateral hamstrings and adductor vinod PT-OP-J Posture/Palpation/Skin Start: 10/04/17 14:21 Freq: Status: Active Protocol: Document 12/10/17 13:45 DCW (Rec: 12/10/17 13:56 DCW [id number]) Posture Evaluation Position Standing Head/C-Spine Posture Forward Head T-Spine Posture Flexible Scoliosis on (L) Increased Kyphosis L-Spine Posture Flexible Scoliosis on (R) Pelvis Posture (L) Iliac Crest Superior Hip Posture (L) Flexed (R) Flexed PT-OP-K Range of Motion Start: 10/04/17 14:21 Freq: Status: Active Protocol: Document 12/10/17 13:45 DCW (Rec: 12/10/17 13:56 DCW [id number]) Lumbar Spine Range of Motion Lumbar Spine Active Degrees Testing Position Standing Comments Max extension, pt is forward flexed 3? at her thoracic spine Shoulder Goniometric Range of Motion Shoulder Measured in Degrees Left Active Shoulder ROM WFL No Testing Position Sitting Flexion 128 Abduction 120 External Rotation at 0 degrees Abduction 54 Right Active Shoulder ROM WFL No Testing Position Sitting Flexion 108 Abduction 85 External Rotation at 0 degrees Abduction 42 PT-OP-M Strength Start: 10/04/17 14:21 Freq: Status: Active Protocol: Document 12/10/17 13:45 DCW (Rec: 12/10/17 14:04 DCW [id number]) Shoulder Strength Shoulder Manual Muscle Testing Right Flexion 4 Good Abduction (C5) 4 Good External Rotation 4- Good- Internal Rotation 5 Normal Left Flexion 4+ Good+ Abduction (C5) 4+ Good+ External Rotation 4+ Good+ Internal Rotation 5 Normal PT-OP-Q Treatments Start: 08/06/17 17:30 Freq: Status: Active Protocol: Document 12/10/17 13:45 DCW (Rec: 12/10/17 14:32 DCW [id number]) Cardio Equipment Upper Body Ergometer (UBE) Duration (Minutes) 5 RPM 60 Seat Position 12 Height 3 Therapeutic Exercises Supine Exercises 1 Supine Exercise Name Supine on Towel roll at T10-12 Side bilateral Comments increase thoracolumbar extension Manual Therapy Treatment Soft Tissue Mobilization 3 Body Location Quadratus Lumborum Mobilization Type Myofascial Release Strumming Sustained Pressure Intensity/Depth Moderate Body Position Sidelying 2 Body Location Glute Med Mobilization Type Strumming Sustained Pressure Intensity/Depth Moderate Body Position Sidelying 1 Body Location Lumbar Erector Spinae Mobilization Type Myofascial Release Sustained Pressure Intensity/Depth Moderate Body Position Sidelying Joint Mobilizations 1 Joint Thoracic Spine Direction P->A Grade III Body Position Sidelying Manual Traction Lumbar Details Hip/Iliac crest depression Body Position Sidelying PT-OP-R Modalities Start: 08/06/17 17:30 Freq: Status: Active Protocol: Document 12/10/17 13:45 DCW (Rec: 12/10/17 14:32 DCW [id number]) Electric Stimulation Electric Stimulation Interferential Current (IFC) Body Location Lumbar Spine Duration (Minutes) 15 Intensity 30 Patient Position Sitting Combined With Heat/Cold Hot Pack PT-OP-T Assessment and Plan Start: 08/06/17 17:30 Freq: Status: Active Protocol: Document 12/10/17 13:45 DCW (Rec: 12/10/17 14:32 DCW [id number]) Physical Therapy Assessment Rehab Potential Rehabilitation Potential Good Impairments Impairments Functional Mobility Pain Posture ROM Soft Tissue Mobility Strength Tone Goals Six Impairment Shoulder ROM Laundry Laborer Goal (LTG) Right shoulder ROM = Left shoulder ROM LTG Duration 02/09/18 Five Impairment Pt unable to lift 1/2 gallon of milk out of refrigerator with right arm Short Term Goal (STG) Pt to lift 1/2 gallon of milk with right arm without increased pain. STG Duration 01/09/18 Four Impairment Palpable muscle tone Longterm Goal (LTG) Pt muscle tone grossly to mild levels of tone LTG Duration 02/09/18 Three Impairment Thoracic Spine ROM Short Term Goal (STG) Thoracic spine to lacking 10 degrees from neutral at full extension STG Duration Met Laundry Laborer Goal (LTG) Thoracic spine to neutral at full extension LTG Duration 02/09/18 Two Impairment Pain Laundry Laborer Goal (LTG) Pt to report decreased pain to a max of 4/10 LTG Duration 02/09/18 One Impairment Activity tolerance Laundry Laborer Goal (LTG) Pt to tolerate gardening with no increased pain for three hours LTG Duration 02/09/18 Progress Towards Goals Progress Towards Goals Slow Progress due to Medical Issues Assessment Summary Assessment Pt would likely benefit from addition of shoulder mobility and strengthening to current POC to improve her tolerance to gardening. Physical Therapy Plan Frequency and Duration Frequency of Treatment 1x/Week Duration of Treatment 12 weeks Plan of Care Start Date 12/10/17 Plan of Care End Date 03/07/18 Therapeutic Interventions Therapeutic Interventions Aquatic Therapy Home Exercise Program Joint Mobilizations Manual Therapy Neuromuscular Re-education Self-Care/Home Management Soft Tissue Mobilization Therapeutic Exercises Modalities Cold Pack/Ice Massage Electric Stimulation Hot Packs Next Visit Focus/Plan Next Note Type Treatment Note Next Visit Plan Manual therapy and TherEx to limit further Kyphosis
--- NOTE | 2017-12-10 14:33 | PT.OPPOC ---
Current Diagnoses Scoliosis, unspecified (12/10/17) Spondylosis without myelopathy or radiculopathy, cervical region (12/10/17) Other intervertebral disc degeneration, lumbosacral region (12/10/17) Pain in thoracic spine (12/10/17) Provider Visit Care Team Role Provider Type Jia Sheridan MD Attending Provider Physician Family Provider Primary Care Provider Specialty: Family Practice Address: [address] [place] [address], [facility] Email: Plan Of Care PT-OP-T Assessment and Plan Start: 08/06/17 17:30 Freq: Status: Active Protocol: Document 12/10/17 13:45 DCW (Rec: 12/10/17 14:32 DCW [id number]) Physical Therapy Assessment Rehab Potential Rehabilitation Potential Good Impairments Impairments Functional Mobility Pain Posture ROM Soft Tissue Mobility Strength Tone Goals Six Impairment Shoulder ROM Halfway Goal (LTG) Right shoulder ROM = Left shoulder ROM LTG Duration 02/09/18 Five Impairment Pt unable to lift 1/2 gallon of milk out of refrigerator with right arm Short Term Goal (STG) Pt to lift 1/2 gallon of milk with right arm without increased pain. STG Duration 01/09/18 Four Impairment Palpable muscle tone Halfway Goal (LTG) Pt muscle tone grossly to mild levels of tone LTG Duration 02/09/18 Three Impairment Thoracic Spine ROM Short Term Goal (STG) Thoracic spine to lacking 10 degrees from neutral at full extension STG Duration Met Halfway Goal (LTG) Thoracic spine to neutral at full extension LTG Duration 02/09/18 Two Impairment Pain Duct Cleaner Goal (LTG) Pt to report decreased pain to a max of 4/10 LTG Duration 02/09/18 One Impairment Activity tolerance Duct Cleaner Goal (LTG) Pt to tolerate gardening with no increased pain for three hours LTG Duration 02/09/18 Progress Towards Goals Progress Towards Goals Slow Progress due to Medical Issues Assessment Summary Assessment Pt would likely benefit from addition of shoulder mobility and strengthening to current POC to improve her tolerance to gardening. Physical Therapy Plan Frequency and Duration Frequency of Treatment 1x/Week Duration of Treatment 12 weeks Plan of Care Start Date 12/10/17 Plan of Care End Date 03/07/18 Therapeutic Interventions Therapeutic Interventions Aquatic Therapy Home Exercise Program Joint Mobilizations Manual Therapy Neuromuscular Re-education Self-Care/Home Management Soft Tissue Mobilization Therapeutic Exercises Modalities Cold Pack/Ice Massage Electric Stimulation Hot Packs Next Visit Focus/Plan Next Note Type Treatment Note Next Visit Plan Manual therapy and TherEx to limit further Kyphosis Plan of Care Dates Plan of Care Start Date 12/10/17 Plan of Care End Date 03/07/18 Please Sign and Return: I have reviewed this Plan of Care and certify that the skilled therapy services above are required to meet the patient?s needs. Physician Signature Date Printed Name and Credentials Clinical Instructor Signature Printed Name and Credentials
--- NOTE | 2017-12-17 14:27 | PT.OTN ---
Current Diagnoses Scoliosis, unspecified (12/17/17) Spondylosis without myelopathy or radiculopathy, cervical region (12/17/17) Other intervertebral disc degeneration, lumbosacral region (12/17/17) Pain in thoracic spine (12/17/17) Physical Therapy Treatment Note PT-OP-A Visit Information Start: 08/06/17 17:30 Freq: Status: Active Protocol: Document 12/17/17 13:45 DCW (Rec: 12/17/17 14:27 DCW [id number]) Out-Patient Physical Therapy Visit Information Visit Information Visit Type Treatment Note Visit Start Time 13:45 Visit Stop Time 14:40 Total Visit Minutes 55 Visit Number 26 Number of IDEA MAN Visits 0 Evaluation Information Evaluation Date 05/28/17 PT-OP-B Current Condition Start: 10/04/17 14:21 Freq: Status: Active Protocol: Document 12/10/17 13:45 DCW (Rec: 12/10/17 13:56 DCW [id number]) Current Condition History of Current Condition History of Current Condition Please see patient's chart in Therapy Source for complete history and initial evaluation Current Functional Impairments (Reported) Functional Limitations- Recreation/ Pt unable to tolerate yard- Hobbies work more than 60 minutes without significant increased pain in her shoulders. PT-OP-C Subjective Start: 08/06/17 17:30 Freq: Status: Active Protocol: Document 12/17/17 13:45 DCW (Rec: 12/17/17 14:27 DCW [id number]) OP-PT Subjective Patient Comments Patient Comments I actually feel pretty good today. PT-OP-F Manual Assessment Start: 10/04/17 14:21 Freq: Status: Active Protocol: Document 12/10/17 13:45 DCW (Rec: 12/10/17 13:56 DCW [id number]) Manual Assessments Soft Tissue Assessment Soft Tissue Mobility Assessment Moderate tone in Bilateral thoracic and lumbar paraspinals, piriformis, iliopsoas, and quadratus lumborum. Mild tone in bilateral hamstrings and adductor vinod PT-OP-J Posture/Palpation/Skin Start: 10/04/17 14:21 Freq: Status: Active Protocol: Document 12/10/17 13:45 DCW (Rec: 12/10/17 13:56 DCW [id number]) Posture Evaluation Position Standing Head/C-Spine Posture Forward Head T-Spine Posture Flexible Scoliosis on (L) Increased Kyphosis L-Spine Posture Flexible Scoliosis on (R) Pelvis Posture (L) Iliac Crest Superior Hip Posture (L) Flexed (R) Flexed PT-OP-K Range of Motion Start: 10/04/17 14:21 Freq: Status: Active Protocol: Document 12/10/17 13:45 DCW (Rec: 12/10/17 13:56 DCW [id number]) Lumbar Spine Range of Motion Lumbar Spine Active Degrees Testing Position Standing Comments Max extension, pt is forward flexed 3? at her thoracic spine Shoulder Goniometric Range of Motion Shoulder Measured in Degrees Left Active Shoulder ROM WFL No Testing Position Sitting Flexion 128 Abduction 120 External Rotation at 0 degrees Abduction 54 Right Active Shoulder ROM WFL No Testing Position Sitting Flexion 108 Abduction 85 External Rotation at 0 degrees Abduction 42 PT-OP-M Strength Start: 10/04/17 14:21 Freq: Status: Active Protocol: Document 12/10/17 13:45 DCW (Rec: 12/10/17 14:04 DCW [id number]) Shoulder Strength Shoulder Manual Muscle Testing Right Flexion 4 Good Abduction (C5) 4 Good External Rotation 4- Good- Internal Rotation 5 Normal Left Flexion 4+ Good+ Abduction (C5) 4+ Good+ External Rotation 4+ Good+ Internal Rotation 5 Normal PT-OP-Q Treatments Start: 08/06/17 17:30 Freq: Status: Active Protocol: Document 12/17/17 13:45 DCW (Rec: 12/17/17 14:27 DCW [id number]) Cardio Equipment Upper Body Ergometer (UBE) Duration (Minutes) 5 RPM 60 Seat Position 12 Height 3 Therapeutic Exercises Supine Exercises 1 Supine Exercise Name Supine on Towel roll at T10-12 Side bilateral Comments increase thoracolumbar extension Manual Therapy Treatment Soft Tissue Mobilization 3 Body Location Quadratus Lumborum Mobilization Type Myofascial Release Strumming Sustained Pressure Intensity/Depth Moderate Body Position Sidelying 2 Body Location Glute Med Mobilization Type Strumming Sustained Pressure Intensity/Depth Moderate Body Position Sidelying 1 Body Location Lumbar Erector Spinae Mobilization Type Myofascial Release Sustained Pressure Intensity/Depth Moderate Body Position Sidelying Joint Mobilizations 1 Joint Thoracic Spine Direction P->A Grade III Body Position Sidelying Manual Traction Lumbar Details Hip/Iliac crest depression Body Position Sidelying PT-OP-R Modalities Start: 08/06/17 17:30 Freq: Status: Active Protocol: Document 12/17/17 13:45 DCW (Rec: 12/17/17 14:27 DCW [id number]) Electric Stimulation Electric Stimulation Interferential Current (IFC) Body Location Lumbar Spine Duration (Minutes) 15 Intensity 30 Patient Position Sitting Combined With Heat/Cold Hot Pack PT-OP-T Assessment and Plan Start: 08/06/17 17:30 Freq: Status: Active Protocol: Document 12/17/17 13:45 DCW (Rec: 12/17/17 14:27 DCW [id number]) Physical Therapy Assessment Impairments Impairments Functional Mobility Pain Posture ROM Soft Tissue Mobility Strength Tone Goals Six Impairment Shoulder ROM Residential Goal (LTG) Right shoulder ROM = Left shoulder ROM LTG Duration 02/09/18 Five Impairment Pt unable to lift 1/2 gallon of milk out of refrigerator with right arm Short Term Goal (STG) Pt to lift 1/2 gallon of milk with right arm without increased pain. STG Duration 01/09/18 Four Impairment Palpable muscle tone Residential Goal (LTG) Pt muscle tone grossly to mild levels of tone LTG Duration 02/09/18 Three Impairment Thoracic Spine ROM Short Term Goal (STG) Thoracic spine to lacking 10 degrees from neutral at full extension STG Duration Met Tensioning Machine Operator Goal (LTG) Thoracic spine to neutral at full extension LTG Duration 02/09/18 Two Impairment Pain Residential Goal (LTG) Pt to report decreased pain to a max of 4/10 LTG Duration 02/09/18 One Impairment Activity tolerance Tensioning Machine Operator Goal (LTG) Pt to tolerate gardening with no increased pain for three hours LTG Duration 02/09/18 Assessment Summary Assessment Pt doing well today, no new complaints Physical Therapy Plan Frequency and Duration Frequency of Treatment 1x/Week Duration of Treatment 12 weeks Plan of Care Start Date 12/10/17 Plan of Care End Date 03/07/18 Therapeutic Interventions Therapeutic Interventions Aquatic Therapy Home Exercise Program Joint Mobilizations Manual Therapy Neuromuscular Re-education Self-Care/Home Management Soft Tissue Mobilization Therapeutic Exercises Modalities Cold Pack/Ice Massage Electric Stimulation Hot Packs Next Visit Focus/Plan Next Note Type Treatment Note Next Visit Plan Manual therapy and TherEx to limit further Kyphosis, addition of shoulder strengthening.
--- NOTE | 2017-12-25 14:28 | PT.OTN ---
Current Diagnoses Scoliosis, unspecified (12/25/17) Spondylosis without myelopathy or radiculopathy, cervical region (12/25/17) Other intervertebral disc degeneration, lumbosacral region (12/25/17) Pain in thoracic spine (12/25/17) Physical Therapy Treatment Note PT-OP-A Visit Information Start: 08/06/17 17:30 Freq: Status: Active Protocol: Document 12/25/17 13:45 DCW (Rec: 12/25/17 14:28 DCW [id number]) Out-Patient Physical Therapy Visit Information Visit Information Visit Type Treatment Note Visit Start Time 13:45 Visit Stop Time 14:40 Total Visit Minutes 55 Visit Number 27 Number of LIVESTOCK RANCH HAND Visits 0 Evaluation Information Evaluation Date 05/28/17 PT-OP-B Current Condition Start: 10/04/17 14:21 Freq: Status: Active Protocol: Document 12/10/17 13:45 DCW (Rec: 12/10/17 13:56 DCW [id number]) Current Condition History of Current Condition History of Current Condition Please see patient's chart in Therapy Source for complete history and initial evaluation Current Functional Impairments (Reported) Functional Limitations- Recreation/ Pt unable to tolerate yard- Hobbies work more than 60 minutes without significant increased pain in her shoulders. PT-OP-C Subjective Start: 08/06/17 17:30 Freq: Status: Active Protocol: Document 12/25/17 13:45 DCW (Rec: 12/25/17 14:28 DCW [id number]) OP-PT Subjective Patient Comments Patient Comments Pt reports she got her Dexa scan a few weeks ago, and reports her left side is worse than my right side, and they don't know why. PT-OP-F Manual Assessment Start: 10/04/17 14:21 Freq: Status: Active Protocol: Document 12/10/17 13:45 DCW (Rec: 12/10/17 13:56 DCW [id number]) Manual Assessments Soft Tissue Assessment Soft Tissue Mobility Assessment Moderate tone in Bilateral thoracic and lumbar paraspinals, piriformis, iliopsoas, and quadratus lumborum. Mild tone in bilateral hamstrings and adductor vinod PT-OP-J Posture/Palpation/Skin Start: 10/04/17 14:21 Freq: Status: Active Protocol: Document 12/10/17 13:45 DCW (Rec: 12/10/17 13:56 DCW [id number]) Posture Evaluation Position Standing Head/C-Spine Posture Forward Head T-Spine Posture Flexible Scoliosis on (L) Increased Kyphosis L-Spine Posture Flexible Scoliosis on (R) Pelvis Posture (L) Iliac Crest Superior Hip Posture (L) Flexed (R) Flexed PT-OP-K Range of Motion Start: 10/04/17 14:21 Freq: Status: Active Protocol: Document 12/10/17 13:45 DCW (Rec: 12/10/17 13:56 DCW [id number]) Lumbar Spine Range of Motion Lumbar Spine Active Degrees Testing Position Standing Comments Max extension, pt is forward flexed 3? at her thoracic spine Shoulder Goniometric Range of Motion Shoulder Measured in Degrees Left Active Shoulder ROM WFL No Testing Position Sitting Flexion 128 Abduction 120 External Rotation at 0 degrees Abduction 54 Right Active Shoulder ROM WFL No Testing Position Sitting Flexion 108 Abduction 85 External Rotation at 0 degrees Abduction 42 PT-OP-M Strength Start: 10/04/17 14:21 Freq: Status: Active Protocol: Document 12/10/17 13:45 DCW (Rec: 12/10/17 14:04 DCW [id number]) Shoulder Strength Shoulder Manual Muscle Testing Right Flexion 4 Good Abduction (C5) 4 Good External Rotation 4- Good- Internal Rotation 5 Normal Left Flexion 4+ Good+ Abduction (C5) 4+ Good+ External Rotation 4+ Good+ Internal Rotation 5 Normal PT-OP-Q Treatments Start: 08/06/17 17:30 Freq: Status: Active Protocol: Document 12/25/17 13:45 DCW (Rec: 12/25/17 14:28 DCW [id number]) Cardio Equipment Upper Body Ergometer (UBE) Duration (Minutes) 5 RPM 60 Seat Position 12 Height 3 Therapeutic Exercises Supine Exercises 1 Supine Exercise Name Supine on Towel roll at T10-12 Side bilateral Comments increase thoracolumbar extension Manual Therapy Treatment Soft Tissue Mobilization 3 Body Location Quadratus Lumborum Mobilization Type Myofascial Release Strumming Sustained Pressure Intensity/Depth Moderate Body Position Sidelying 2 Body Location Glute Med Mobilization Type Strumming Sustained Pressure Intensity/Depth Moderate Body Position Sidelying 1 Body Location Lumbar Erector Spinae Mobilization Type Myofascial Release Sustained Pressure Intensity/Depth Moderate Body Position Sidelying Joint Mobilizations 1 Joint Thoracic Spine Direction P->A Grade III Body Position Sidelying Manual Traction Lumbar Details Hip/Iliac crest depression Body Position Sidelying Neuro Re-Education Treatment Other Activities PNF - Scapular Traction Details Scapular traction for posture Comments in sitting PNF - Irradiation Details Scapular irradiation /c resisted shoulder extension Comments in supine PT-OP-R Modalities Start: 08/06/17 17:30 Freq: Status: Active Protocol: Document 12/25/17 13:45 DCW (Rec: 12/25/17 14:28 DCW [id number]) Electric Stimulation Electric Stimulation Interferential Current (IFC) Body Location Lumbar Spine Duration (Minutes) 15 Intensity 31 Patient Position Sitting Combined With Heat/Cold Hot Pack PT-OP-T Assessment and Plan Start: 08/06/17 17:30 Freq: Status: Active Protocol: Document 12/25/17 13:45 DCW (Rec: 12/25/17 14:28 DCW [id number]) Physical Therapy Assessment Impairments Impairments Functional Mobility Pain Posture ROM Soft Tissue Mobility Strength Tone Goals Six Impairment Shoulder ROM Senior Living Goal (LTG) Right shoulder ROM = Left shoulder ROM LTG Duration 02/09/18 Five Impairment Pt unable to lift 1/2 gallon of milk out of refrigerator with right arm Short Term Goal (STG) Pt to lift 1/2 gallon of milk with right arm without increased pain. STG Duration 01/09/18 Four Impairment Palpable muscle tone Senior Living Goal (LTG) Pt muscle tone grossly to mild levels of tone LTG Duration 02/09/18 Three Impairment Thoracic Spine ROM Short Term Goal (STG) Thoracic spine to lacking 10 degrees from neutral at full extension STG Duration Met Senior Living Goal (LTG) Thoracic spine to neutral at full extension LTG Duration 02/09/18 Two Impairment Pain Implementation Specialist Goal (LTG) Pt to report decreased pain to a max of 4/10 LTG Duration 02/09/18 One Impairment Activity tolerance Senior Living Goal (LTG) Pt to tolerate gardening with no increased pain for three hours LTG Duration 02/09/18 Assessment Summary Assessment Pt tolerated addition of new PNF techniques well, increased activation of posterior thoracic musculature. Physical Therapy Plan Frequency and Duration Frequency of Treatment 1x/Week Duration of Treatment 12 weeks Plan of Care Start Date 12/10/17 Plan of Care End Date 03/07/18 Therapeutic Interventions Therapeutic Interventions Aquatic Therapy Home Exercise Program Joint Mobilizations Manual Therapy Neuromuscular Re-education Self-Care/Home Management Soft Tissue Mobilization Therapeutic Exercises Modalities Cold Pack/Ice Massage Electric Stimulation Hot Packs Next Visit Focus/Plan Next Note Type Treatment Note Next Visit Plan Manual therapy and TherEx to limit further Kyphosis, addition of shoulder strengthening.
--- NOTE | 2017-12-31 17:40 | PT.OTN ---
Current Diagnoses Scoliosis, unspecified (12/31/17) Spondylosis without myelopathy or radiculopathy, cervical region (12/31/17) Other intervertebral disc degeneration, lumbosacral region (12/31/17) Pain in thoracic spine (12/31/17) Physical Therapy Treatment Note PT-OP-A Visit Information Start: 08/06/17 17:30 Freq: Status: Active Protocol: Document 12/31/17 16:45 DCW (Rec: 12/31/17 17:40 DCW [id number]) Out-Patient Physical Therapy Visit Information Visit Information Visit Type Treatment Note Visit Start Time 16:45 Visit Stop Time 17:30 Total Visit Minutes 45 Visit Number 28 Number of RETAIL SUPPORT ASSOCIATE Visits 0 Evaluation Information Evaluation Date 05/28/17 PT-OP-B Current Condition Start: 10/04/17 14:21 Freq: Status: Active Protocol: Document 12/10/17 13:45 DCW (Rec: 12/10/17 13:56 DCW [id number]) Current Condition History of Current Condition History of Current Condition Please see patient's chart in Therapy Source for complete history and initial evaluation Current Functional Impairments (Reported) Functional Limitations- Recreation/ Pt unable to tolerate yard- Hobbies work more than 60 minutes without significant increased pain in her shoulders. PT-OP-C Subjective Start: 08/06/17 17:30 Freq: Status: Active Protocol: Document 12/31/17 16:45 DCW (Rec: 12/31/17 17:40 DCW [id number]) OP-PT Subjective Patient Comments Patient Comments Pt requests to skip e-stim today, as she is unable to stay late due to another appointment. PT-OP-F Manual Assessment Start: 10/04/17 14:21 Freq: Status: Active Protocol: Document 12/10/17 13:45 DCW (Rec: 12/10/17 13:56 DCW [id number]) Manual Assessments Soft Tissue Assessment Soft Tissue Mobility Assessment Moderate tone in Bilateral thoracic and lumbar paraspinals, piriformis, iliopsoas, and quadratus lumborum. Mild tone in bilateral hamstrings and adductor vinod PT-OP-J Posture/Palpation/Skin Start: 10/04/17 14:21 Freq: Status: Active Protocol: Document 12/10/17 13:45 DCW (Rec: 12/10/17 13:56 DCW [id number]) Posture Evaluation Position Standing Head/C-Spine Posture Forward Head T-Spine Posture Flexible Scoliosis on (L) Increased Kyphosis L-Spine Posture Flexible Scoliosis on (R) Pelvis Posture (L) Iliac Crest Superior Hip Posture (L) Flexed (R) Flexed PT-OP-K Range of Motion Start: 10/04/17 14:21 Freq: Status: Active Protocol: Document 12/10/17 13:45 DCW (Rec: 12/10/17 13:56 DCW [id number]) Lumbar Spine Range of Motion Lumbar Spine Active Degrees Testing Position Standing Comments Max extension, pt is forward flexed 3? at her thoracic spine Shoulder Goniometric Range of Motion Shoulder Measured in Degrees Left Active Shoulder ROM WFL No Testing Position Sitting Flexion 128 Abduction 120 External Rotation at 0 degrees Abduction 54 Right Active Shoulder ROM WFL No Testing Position Sitting Flexion 108 Abduction 85 External Rotation at 0 degrees Abduction 42 PT-OP-M Strength Start: 10/04/17 14:21 Freq: Status: Active Protocol: Document 12/10/17 13:45 DCW (Rec: 12/10/17 14:04 DCW [id number]) Shoulder Strength Shoulder Manual Muscle Testing Right Flexion 4 Good Abduction (C5) 4 Good External Rotation 4- Good- Internal Rotation 5 Normal Left Flexion 4+ Good+ Abduction (C5) 4+ Good+ External Rotation 4+ Good+ Internal Rotation 5 Normal PT-OP-Q Treatments Start: 08/06/17 17:30 Freq: Status: Active Protocol: Document 12/31/17 16:45 DCW (Rec: 12/31/17 17:40 DCW [id number]) Cardio Equipment Upper Body Ergometer (UBE) Duration (Minutes) 5 RPM 60 Seat Position 12 Height 3 Therapeutic Exercises Supine Exercises 1 Supine Exercise Name Supine on Towel roll at T10-12 Side bilateral Comments increase thoracolumbar extension Manual Therapy Treatment Soft Tissue Mobilization 3 Body Location Quadratus Lumborum Mobilization Type Myofascial Release Strumming Sustained Pressure Intensity/Depth Moderate Body Position Sidelying 2 Body Location Glute Med Mobilization Type Strumming Sustained Pressure Intensity/Depth Moderate Body Position Sidelying 1 Body Location Lumbar Erector Spinae Mobilization Type Myofascial Release Sustained Pressure Intensity/Depth Moderate Body Position Sidelying Joint Mobilizations 1 Joint Thoracic Spine Direction P->A Grade III Body Position Sidelying Manual Traction Lumbar Details Hip/Iliac crest depression Body Position Sidelying Neuro Re-Education Treatment Other Activities PNF - Scapular Traction Details Scapular traction for posture Comments in sitting PNF - Irradiation Details Scapular irradiation /c resisted shoulder extension Comments in supine PT-OP-R Modalities Start: 08/06/17 17:30 Freq: Status: Active Protocol: Document 12/25/17 13:45 DCW (Rec: 12/25/17 14:28 DCW [id number]) Electric Stimulation Electric Stimulation Interferential Current (IFC) Body Location Lumbar Spine Duration (Minutes) 15 Intensity 31 Patient Position Sitting Combined With Heat/Cold Hot Pack PT-OP-T Assessment and Plan Start: 08/06/17 17:30 Freq: Status: Active Protocol: Document 12/31/17 16:45 DCW (Rec: 12/31/17 17:40 DCW [id number]) Physical Therapy Assessment Impairments Impairments Functional Mobility Pain Posture ROM Soft Tissue Mobility Strength Tone Goals Six Impairment Shoulder ROM Operations Liaison Goal (LTG) Right shoulder ROM = Left shoulder ROM LTG Duration 02/09/18 Five Impairment Pt unable to lift 1/2 gallon of milk out of refrigerator with right arm Short Term Goal (STG) Pt to lift 1/2 gallon of milk with right arm without increased pain. STG Duration 01/09/18 Four Impairment Palpable muscle tone Custodial Goal (LTG) Pt muscle tone grossly to mild levels of tone LTG Duration 02/09/18 Three Impairment Thoracic Spine ROM Short Term Goal (STG) Thoracic spine to lacking 10 degrees from neutral at full extension STG Duration Met Custodial Goal (LTG) Thoracic spine to neutral at full extension LTG Duration 02/09/18 Two Impairment Pain Custodial Goal (LTG) Pt to report decreased pain to a max of 4/10 LTG Duration 02/09/18 One Impairment Activity tolerance Custodial Goal (LTG) Pt to tolerate gardening with no increased pain for three hours LTG Duration 02/09/18 Assessment Summary Assessment Pt responded well to manual therapy today, appeared to stand with improved thoracic extension following treatment Physical Therapy Plan Frequency and Duration Frequency of Treatment 1x/Week Duration of Treatment 12 weeks Plan of Care Start Date 12/10/17 Plan of Care End Date 03/07/18 Therapeutic Interventions Therapeutic Interventions Aquatic Therapy Home Exercise Program Joint Mobilizations Manual Therapy Neuromuscular Re-education Self-Care/Home Management Soft Tissue Mobilization Therapeutic Exercises Modalities Cold Pack/Ice Massage Electric Stimulation Hot Packs Next Visit Focus/Plan Next Note Type Treatment Note Next Visit Plan Manual therapy and TherEx to limit further Kyphosis, addition of shoulder strengthening.
--- NOTE | 2018-01-07 15:12 | PT.OTN ---
Current Diagnoses Scoliosis, unspecified (01/07/18) Spondylosis without myelopathy or radiculopathy, cervical region (01/07/18) Other intervertebral disc degeneration, lumbosacral region (01/07/18) Pain in thoracic spine (01/07/18) Physical Therapy Treatment Note PT-OP-A Visit Information Start: 08/06/17 17:30 Freq: Status: Active Protocol: Document 01/07/18 14:30 DCW (Rec: 01/07/18 15:11 DCW [id number]) Out-Patient Physical Therapy Visit Information Visit Information Visit Type Treatment Note Visit Start Time 14:30 Visit Stop Time 15:25 Total Visit Minutes 55 Visit Number 29 Number of CLIENT RESOURCE SPECIALIST Visits 0 Evaluation Information Evaluation Date 05/28/17 PT-OP-B Current Condition Start: 10/04/17 14:21 Freq: Status: Active Protocol: Document 12/10/17 13:45 DCW (Rec: 12/10/17 13:56 DCW [id number]) Current Condition History of Current Condition History of Current Condition Please see patient's chart in Therapy Source for complete history and initial evaluation Current Functional Impairments (Reported) Functional Limitations- Recreation/ Pt unable to tolerate yard- Hobbies work more than 60 minutes without significant increased pain in her shoulders. PT-OP-C Subjective Start: 08/06/17 17:30 Freq: Status: Active Protocol: Document 01/07/18 14:30 DCW (Rec: 01/07/18 15:11 DCW [id number]) OP-PT Subjective Patient Comments Patient Comments Pt reports she has been busy today switching out her closet for colder weather. PT-OP-F Manual Assessment Start: 10/04/17 14:21 Freq: Status: Active Protocol: Document 12/10/17 13:45 DCW (Rec: 12/10/17 13:56 DCW [id number]) Manual Assessments Soft Tissue Assessment Soft Tissue Mobility Assessment Moderate tone in Bilateral thoracic and lumbar paraspinals, piriformis, iliopsoas, and quadratus lumborum. Mild tone in bilateral hamstrings and adductor vinod PT-OP-J Posture/Palpation/Skin Start: 10/04/17 14:21 Freq: Status: Active Protocol: Document 12/10/17 13:45 DCW (Rec: 12/10/17 13:56 DCW [id number]) Posture Evaluation Position Standing Head/C-Spine Posture Forward Head T-Spine Posture Flexible Scoliosis on (L) Increased Kyphosis L-Spine Posture Flexible Scoliosis on (R) Pelvis Posture (L) Iliac Crest Superior Hip Posture (L) Flexed (R) Flexed PT-OP-K Range of Motion Start: 10/04/17 14:21 Freq: Status: Active Protocol: Document 12/10/17 13:45 DCW (Rec: 12/10/17 13:56 DCW [id number]) Lumbar Spine Range of Motion Lumbar Spine Active Degrees Testing Position Standing Comments Max extension, pt is forward flexed 3? at her thoracic spine Shoulder Goniometric Range of Motion Shoulder Measured in Degrees Left Active Shoulder ROM WFL No Testing Position Sitting Flexion 128 Abduction 120 External Rotation at 0 degrees Abduction 54 Right Active Shoulder ROM WFL No Testing Position Sitting Flexion 108 Abduction 85 External Rotation at 0 degrees Abduction 42 PT-OP-M Strength Start: 10/04/17 14:21 Freq: Status: Active Protocol: Document 12/10/17 13:45 DCW (Rec: 12/10/17 14:04 DCW [id number]) Shoulder Strength Shoulder Manual Muscle Testing Right Flexion 4 Good Abduction (C5) 4 Good External Rotation 4- Good- Internal Rotation 5 Normal Left Flexion 4+ Good+ Abduction (C5) 4+ Good+ External Rotation 4+ Good+ Internal Rotation 5 Normal PT-OP-Q Treatments Start: 08/06/17 17:30 Freq: Status: Active Protocol: Document 01/07/18 14:30 DCW (Rec: 01/07/18 15:11 DCW [id number]) Cardio Equipment Upper Body Ergometer (UBE) Duration (Minutes) 5 RPM 60 Seat Position 12 Height 3 Therapeutic Exercises Supine Exercises Serratus Punch Supine Exercise Name Serratus anterior punch with wand Side bilateral Equipment Used wand Shoulder Flexion Supine Exercise Name Flex with wand Side bilateral Equipment Used wand Comments Pain-free ROM 1 Supine Exercise Name Supine on Towel roll at T10-12 Side bilateral Comments increase thoracolumbar extension Manual Therapy Treatment Soft Tissue Mobilization 3 Body Location Quadratus Lumborum Mobilization Type Myofascial Release Strumming Sustained Pressure Intensity/Depth Moderate Body Position Sidelying 2 Body Location Glute Med Mobilization Type Strumming Sustained Pressure Intensity/Depth Moderate Body Position Sidelying 1 Body Location Lumbar Erector Spinae Mobilization Type Myofascial Release Sustained Pressure Intensity/Depth Moderate Body Position Sidelying Joint Mobilizations 1 Joint Thoracic Spine Direction P->A Grade III Body Position Sidelying Manual Traction Lumbar Details Hip/Iliac crest depression Body Position Sidelying Neuro Re-Education Treatment Other Activities PNF - Scapular Traction Details Scapular traction for posture Comments in sitting PNF - Irradiation Details Scapular irradiation /c resisted shoulder extension Comments in supine PT-OP-R Modalities Start: 08/06/17 17:30 Freq: Status: Active Protocol: Document 12/25/17 13:45 DCW (Rec: 12/25/17 14:28 DCW [id number]) Electric Stimulation Electric Stimulation Interferential Current (IFC) Body Location Lumbar Spine Duration (Minutes) 15 Intensity 31 Patient Position Sitting Combined With Heat/Cold Hot Pack PT-OP-T Assessment and Plan Start: 08/06/17 17:30 Freq: Status: Active Protocol: Document 01/07/18 14:30 DCW (Rec: 01/07/18 15:11 DCW [id number]) Physical Therapy Assessment Impairments Impairments Functional Mobility Pain Posture ROM Soft Tissue Mobility Strength Tone Goals Six Impairment Shoulder ROM [facility] Goal (LTG) Right shoulder ROM = Left shoulder ROM LTG Duration 02/09/18 Five Impairment Pt unable to lift 1/2 gallon of milk out of refrigerator with right arm Short Term Goal (STG) Pt to lift 1/2 gallon of milk with right arm without increased pain. STG Duration 01/09/18 Four Impairment Palpable muscle tone Balloon Sander Goal (LTG) Pt muscle tone grossly to mild levels of tone LTG Duration 02/09/18 Three Impairment Thoracic Spine ROM Short Term Goal (STG) Thoracic spine to lacking 10 degrees from neutral at full extension STG Duration Met Balloon Sander Goal (LTG) Thoracic spine to neutral at full extension LTG Duration 02/09/18 Two Impairment Pain [facility] Goal (LTG) Pt to report decreased pain to a max of 4/10 LTG Duration 02/09/18 One Impairment Activity tolerance [facility] Goal (LTG) Pt to tolerate gardening with no increased pain for three hours LTG Duration 02/09/18 Assessment Summary Assessment Pt tolerated new strengthening exercises well today. Physical Therapy Plan Frequency and Duration Frequency of Treatment 1x/Week Duration of Treatment 12 weeks Plan of Care Start Date 12/10/17 Plan of Care End Date 03/07/18 Therapeutic Interventions Therapeutic Interventions Aquatic Therapy Home Exercise Program Joint Mobilizations Manual Therapy Neuromuscular Re-education Self-Care/Home Management Soft Tissue Mobilization Therapeutic Exercises Modalities Cold Pack/Ice Massage Electric Stimulation Hot Packs Next Visit Focus/Plan Next Note Type Treatment Note Next Visit Plan Manual therapy and TherEx to limit further Kyphosis, addition of shoulder strengthening.
--- NOTE | 2018-01-28 14:28 | PT.OTN ---
Current Diagnoses Scoliosis, unspecified (01/28/18) Spondylosis without myelopathy or radiculopathy, cervical region (01/28/18) Other intervertebral disc degeneration, lumbosacral region (01/28/18) Pain in thoracic spine (01/28/18) Physical Therapy Treatment Note PT-OP-A Visit Information Start: 08/06/17 17:30 Freq: Status: Active Protocol: Document 01/28/18 13:45 DCW (Rec: 01/28/18 14:28 DCW [id number]) Out-Patient Physical Therapy Visit Information Visit Information Visit Type Treatment Note Visit Start Time 13:45 Visit Stop Time 13:40 Total Visit Minutes 55 Visit Number 30 Number of 911 EMERGENCY SERVICES DISPATCHER Visits 0 Evaluation Information Evaluation Date 05/28/17 PT-OP-B Current Condition Start: 10/04/17 14:21 Freq: Status: Active Protocol: Document 12/10/17 13:45 DCW (Rec: 12/10/17 13:56 DCW [id number]) Current Condition History of Current Condition History of Current Condition Please see patient's chart in Therapy Source for complete history and initial evaluation Current Functional Impairments (Reported) Functional Limitations- Recreation/ Pt unable to tolerate yard- Hobbies work more than 60 minutes without significant increased pain in her shoulders. PT-OP-C Subjective Start: 08/06/17 17:30 Freq: Status: Active Protocol: Document 01/28/18 13:45 DCW (Rec: 01/28/18 14:28 DCW [id number]) OP-PT Subjective Patient Comments Patient Comments I really need this today after such a long lay-off. PT-OP-F Manual Assessment Start: 10/04/17 14:21 Freq: Status: Active Protocol: Document 12/10/17 13:45 DCW (Rec: 12/10/17 13:56 DCW [id number]) Manual Assessments Soft Tissue Assessment Soft Tissue Mobility Assessment Moderate tone in Bilateral thoracic and lumbar paraspinals, piriformis, iliopsoas, and quadratus lumborum. Mild tone in bilateral hamstrings and adductor vinod PT-OP-J Posture/Palpation/Skin Start: 10/04/17 14:21 Freq: Status: Active Protocol: Document 12/10/17 13:45 DCW (Rec: 12/10/17 13:56 DCW [id number]) Posture Evaluation Position Standing Head/C-Spine Posture Forward Head T-Spine Posture Flexible Scoliosis on (L) Increased Kyphosis L-Spine Posture Flexible Scoliosis on (R) Pelvis Posture (L) Iliac Crest Superior Hip Posture (L) Flexed (R) Flexed PT-OP-K Range of Motion Start: 10/04/17 14:21 Freq: Status: Active Protocol: Document 12/10/17 13:45 DCW (Rec: 12/10/17 13:56 DCW [id number]) Lumbar Spine Range of Motion Lumbar Spine Active Degrees Testing Position Standing Comments Max extension, pt is forward flexed 3? at her thoracic spine Shoulder Goniometric Range of Motion Shoulder Measured in Degrees Left Active Shoulder ROM WFL No Testing Position Sitting Flexion 128 Abduction 120 External Rotation at 0 degrees Abduction 54 Right Active Shoulder ROM WFL No Testing Position Sitting Flexion 108 Abduction 85 External Rotation at 0 degrees Abduction 42 PT-OP-M Strength Start: 10/04/17 14:21 Freq: Status: Active Protocol: Document 12/10/17 13:45 DCW (Rec: 12/10/17 14:04 DCW [id number]) Shoulder Strength Shoulder Manual Muscle Testing Right Flexion 4 Good Abduction (C5) 4 Good External Rotation 4- Good- Internal Rotation 5 Normal Left Flexion 4+ Good+ Abduction (C5) 4+ Good+ External Rotation 4+ Good+ Internal Rotation 5 Normal PT-OP-Q Treatments Start: 08/06/17 17:30 Freq: Status: Active Protocol: Document 01/28/18 13:45 DCW (Rec: 01/28/18 14:28 DCW [id number]) Cardio Equipment Upper Body Ergometer (UBE) Duration (Minutes) 5 RPM 60 Seat Position 12 Height 3 Therapeutic Exercises Supine Exercises Serratus Punch Supine Exercise Name Serratus anterior punch with wand Side bilateral Equipment Used wand Shoulder Flexion Supine Exercise Name Flex with wand Side bilateral Equipment Used wand Comments Pain-free ROM 1 Supine Exercise Name Supine on Towel roll at T10-12 Side bilateral Comments increase thoracolumbar extension Manual Therapy Treatment Soft Tissue Mobilization 3 Body Location Quadratus Lumborum Mobilization Type Myofascial Release Strumming Sustained Pressure Intensity/Depth Moderate Body Position Sidelying 2 Body Location Glute Med Mobilization Type Strumming Sustained Pressure Intensity/Depth Moderate Body Position Sidelying 1 Body Location Lumbar Erector Spinae Mobilization Type Myofascial Release Sustained Pressure Intensity/Depth Moderate Body Position Sidelying Joint Mobilizations 1 Joint Thoracic Spine Direction P->A Grade III Body Position Sidelying Manual Traction Lumbar Details Hip/Iliac crest depression Body Position Sidelying Neuro Re-Education Treatment Other Activities PNF - Irradiation Details Scapular irradiation /c resisted shoulder extension Comments in supine PT-OP-R Modalities Start: 08/06/17 17:30 Freq: Status: Active Protocol: Document 01/28/18 13:45 DCW (Rec: 01/28/18 14:28 DCW [id number]) Electric Stimulation Electric Stimulation Interferential Current (IFC) Body Location Lumbar Spine Duration (Minutes) 15 Intensity 31 Patient Position Sitting Combined With Heat/Cold Hot Pack PT-OP-T Assessment and Plan Start: 08/06/17 17:30 Freq: Status: Active Protocol: Document 01/28/18 13:45 DCW (Rec: 01/28/18 14:28 DCW [id number]) Physical Therapy Assessment Impairments Impairments Functional Mobility Pain Posture ROM Soft Tissue Mobility Strength Tone Goals Six Impairment Shoulder ROM Diving Fisher Goal (LTG) Right shoulder ROM = Left shoulder ROM LTG Duration 02/09/18 Five Impairment Pt unable to lift 1/2 gallon of milk out of refrigerator with right arm Short Term Goal (STG) Pt to lift 1/2 gallon of milk with right arm without increased pain. STG Duration 01/09/18 Four Impairment Palpable muscle tone Residential Goal (LTG) Pt muscle tone grossly to mild levels of tone LTG Duration 02/09/18 Three Impairment Thoracic Spine ROM Short Term Goal (STG) Thoracic spine to lacking 10 degrees from neutral at full extension STG Duration Met Diving Fisher Goal (LTG) Thoracic spine to neutral at full extension LTG Duration 02/09/18 Two Impairment Pain Diving Fisher Goal (LTG) Pt to report decreased pain to a max of 4/10 LTG Duration 02/09/18 One Impairment Activity tolerance Diving Fisher Goal (LTG) Pt to tolerate gardening with no increased pain for three hours LTG Duration 02/09/18 Assessment Summary Assessment Pt had some increased muscle tone throughout lumbar and thoracic paraspinals following 20-day absence from therapy. Physical Therapy Plan Frequency and Duration Frequency of Treatment 1x/Week Duration of Treatment 12 weeks Plan of Care Start Date 12/10/17 Plan of Care End Date 12/06/18 Therapeutic Interventions Therapeutic Interventions Aquatic Therapy Home Exercise Program Joint Mobilizations Manual Therapy Neuromuscular Re-education Self-Care/Home Management Soft Tissue Mobilization Therapeutic Exercises Modalities Cold Pack/Ice Massage Electric Stimulation Hot Packs Next Visit Focus/Plan Next Note Type Treatment Note Next Visit Plan Manual therapy and TherEx to limit further Kyphosis, addition of shoulder strengthening.
--- NOTE | 2018-02-04 14:29 | PT.OTN ---
Current Diagnoses Scoliosis, unspecified (02/04/18) Spondylosis without myelopathy or radiculopathy, cervical region (02/04/18) Other intervertebral disc degeneration, lumbosacral region (02/04/18) Pain in thoracic spine (02/04/18) Physical Therapy Treatment Note PT-OP-A Visit Information Start: 08/06/17 17:30 Freq: Status: Active Protocol: Document 02/04/18 13:45 DCW (Rec: 02/04/18 14:28 DCW [id number]) Out-Patient Physical Therapy Visit Information Visit Information Visit Type Treatment Note Visit Start Time 13:45 Visit Stop Time 14:40 Total Visit Minutes 55 Visit Number 31 Number of GRE INSTRUCTOR Visits 0 Evaluation Information Evaluation Date 05/28/17 PT-OP-B Current Condition Start: 10/04/17 14:21 Freq: Status: Active Protocol: Document 12/10/17 13:45 DCW (Rec: 12/10/17 13:56 DCW [id number]) Current Condition History of Current Condition History of Current Condition Please see patient's chart in Therapy Source for complete history and initial evaluation Current Functional Impairments (Reported) Functional Limitations- Recreation/ Pt unable to tolerate yard- Hobbies work more than 60 minutes without significant increased pain in her shoulders. PT-OP-C Subjective Start: 08/06/17 17:30 Freq: Status: Active Protocol: Document 02/04/18 13:45 DCW (Rec: 02/04/18 14:28 DCW [id number]) OP-PT Subjective Patient Comments Patient Comments My hands are hurting, but other than that, I'm doing quite well. PT-OP-F Manual Assessment Start: 10/04/17 14:21 Freq: Status: Active Protocol: Document 12/10/17 13:45 DCW (Rec: 12/10/17 13:56 DCW [id number]) Manual Assessments Soft Tissue Assessment Soft Tissue Mobility Assessment Moderate tone in Bilateral thoracic and lumbar paraspinals, piriformis, iliopsoas, and quadratus lumborum. Mild tone in bilateral hamstrings and adductor vinod PT-OP-J Posture/Palpation/Skin Start: 10/04/17 14:21 Freq: Status: Active Protocol: Document 12/10/17 13:45 DCW (Rec: 12/10/17 13:56 DCW [id number]) Posture Evaluation Position Standing Head/C-Spine Posture Forward Head T-Spine Posture Flexible Scoliosis on (L) Increased Kyphosis L-Spine Posture Flexible Scoliosis on (R) Pelvis Posture (L) Iliac Crest Superior Hip Posture (L) Flexed (R) Flexed PT-OP-K Range of Motion Start: 10/04/17 14:21 Freq: Status: Active Protocol: Document 12/10/17 13:45 DCW (Rec: 12/10/17 13:56 DCW [id number]) Lumbar Spine Range of Motion Lumbar Spine Active Degrees Testing Position Standing Comments Max extension, pt is forward flexed 3? at her thoracic spine Shoulder Goniometric Range of Motion Shoulder Measured in Degrees Left Active Shoulder ROM WFL No Testing Position Sitting Flexion 128 Abduction 120 External Rotation at 0 degrees Abduction 54 Right Active Shoulder ROM WFL No Testing Position Sitting Flexion 108 Abduction 85 External Rotation at 0 degrees Abduction 42 PT-OP-M Strength Start: 10/04/17 14:21 Freq: Status: Active Protocol: Document 12/10/17 13:45 DCW (Rec: 12/10/17 14:04 DCW [id number]) Shoulder Strength Shoulder Manual Muscle Testing Right Flexion 4 Good Abduction (C5) 4 Good External Rotation 4- Good- Internal Rotation 5 Normal Left Flexion 4+ Good+ Abduction (C5) 4+ Good+ External Rotation 4+ Good+ Internal Rotation 5 Normal PT-OP-Q Treatments Start: 08/06/17 17:30 Freq: Status: Active Protocol: Document 02/04/18 13:45 DCW (Rec: 02/04/18 14:28 DCW [id number]) Cardio Equipment Upper Body Ergometer (UBE) Duration (Minutes) 5 RPM 60 Seat Position 12 Height 3 Therapeutic Exercises Supine Exercises Serratus Punch Supine Exercise Name Serratus anterior punch with wand Side bilateral Equipment Used wand Shoulder Flexion Supine Exercise Name Flex with wand Side bilateral Equipment Used wand Comments Pain-free ROM 1 Supine Exercise Name Supine on Towel roll at T10-12 Side bilateral Comments increase thoracolumbar extension Manual Therapy Treatment Soft Tissue Mobilization 3 Body Location Quadratus Lumborum Mobilization Type Myofascial Release Strumming Sustained Pressure Intensity/Depth Moderate Body Position Sidelying 2 Body Location Glute Med Mobilization Type Strumming Sustained Pressure Intensity/Depth Moderate Body Position Sidelying 1 Body Location Lumbar Erector Spinae Mobilization Type Myofascial Release Sustained Pressure Intensity/Depth Moderate Body Position Sidelying Joint Mobilizations 1 Joint Thoracic Spine Direction P->A Grade III Body Position Sidelying Manual Traction Lumbar Details Hip/Iliac crest depression Body Position Sidelying Neuro Re-Education Treatment Other Activities PNF - Irradiation Details Scapular irradiation /c resisted shoulder extension Comments in supine PT-OP-R Modalities Start: 08/06/17 17:30 Freq: Status: Active Protocol: Document 02/04/18 13:45 DCW (Rec: 02/04/18 14:28 DCW [id number]) Electric Stimulation Electric Stimulation Interferential Current (IFC) Body Location Lumbar Spine Duration (Minutes) 15 Intensity 31 Patient Position Sitting Combined With Heat/Cold Hot Pack PT-OP-T Assessment and Plan Start: 08/06/17 17:30 Freq: Status: Active Protocol: Document 02/04/18 13:45 DCW (Rec: 02/04/18 14:28 DCW [id number]) Physical Therapy Assessment Impairments Impairments Functional Mobility Pain Posture ROM Soft Tissue Mobility Strength Tone Goals Six Impairment Shoulder ROM Senior Living Goal (LTG) Right shoulder ROM = Left shoulder ROM LTG Duration 02/09/18 Five Impairment Pt unable to lift 1/2 gallon of milk out of refrigerator with right arm Short Term Goal (STG) Pt to lift 1/2 gallon of milk with right arm without increased pain. STG Duration 01/09/18 Four Impairment Palpable muscle tone Laboratory Animal Caretaker Goal (LTG) Pt muscle tone grossly to mild levels of tone LTG Duration 02/09/18 Three Impairment Thoracic Spine ROM Short Term Goal (STG) Thoracic spine to lacking 10 degrees from neutral at full extension STG Duration Met Senior Living Goal (LTG) Thoracic spine to neutral at full extension LTG Duration 02/09/18 Two Impairment Pain Laboratory Animal Caretaker Goal (LTG) Pt to report decreased pain to a max of 4/10 LTG Duration 02/09/18 One Impairment Activity tolerance Laboratory Animal Caretaker Goal (LTG) Pt to tolerate gardening with no increased pain for three hours LTG Duration 02/09/18 Assessment Summary Assessment Pt better today, decreased tone today vs last week. Physical Therapy Plan Frequency and Duration Frequency of Treatment 1x/Week Duration of Treatment 12 weeks Plan of Care Start Date 12/10/17 Plan of Care End Date 03/07/18 Therapeutic Interventions Therapeutic Interventions Aquatic Therapy Home Exercise Program Joint Mobilizations Manual Therapy Neuromuscular Re-education Self-Care/Home Management Soft Tissue Mobilization Therapeutic Exercises Modalities Cold Pack/Ice Massage Electric Stimulation Hot Packs Next Visit Focus/Plan Next Note Type Treatment Note Next Visit Plan Manual therapy and TherEx to limit further Kyphosis, addition of shoulder strengthening.
--- NOTE | 2018-02-11 14:29 | PT.OTN ---
Current Diagnoses Scoliosis, unspecified (02/11/18) Spondylosis without myelopathy or radiculopathy, cervical region (02/11/18) Other intervertebral disc degeneration, lumbosacral region (02/11/18) Pain in thoracic spine (02/11/18) Physical Therapy Treatment Note PT-OP-A Visit Information Start: 08/06/17 17:30 Freq: Status: Active Protocol: Document 02/11/18 13:45 DCW (Rec: 02/11/18 14:29 DCW [id number]) Out-Patient Physical Therapy Visit Information Visit Information Visit Type Treatment Note Visit Start Time 13:45 Visit Stop Time 14:40 Total Visit Minutes 55 Visit Number 32 Number of DIRECTOR PRIVATE Visits 0 Evaluation Information Evaluation Date 05/28/17 PT-OP-B Current Condition Start: 10/04/17 14:21 Freq: Status: Active Protocol: Document 12/10/17 13:45 DCW (Rec: 12/10/17 13:56 DCW [id number]) Current Condition History of Current Condition History of Current Condition Please see patient's chart in Therapy Source for complete history and initial evaluation Current Functional Impairments (Reported) Functional Limitations- Recreation/ Pt unable to tolerate yard- Hobbies work more than 60 minutes without significant increased pain in her shoulders. PT-OP-C Subjective Start: 08/06/17 17:30 Freq: Status: Active Protocol: Document 02/11/18 13:45 DCW (Rec: 02/11/18 14:29 DCW [id number]) OP-PT Subjective Patient Comments Patient Comments Pt reports her Sunday housework has been worse than usual today after being busy all weekend and feeling like I'm a day behind. PT-OP-F Manual Assessment Start: 10/04/17 14:21 Freq: Status: Active Protocol: Document 12/10/17 13:45 DCW (Rec: 12/10/17 13:56 DCW [id number]) Manual Assessments Soft Tissue Assessment Soft Tissue Mobility Assessment Moderate tone in Bilateral thoracic and lumbar paraspinals, piriformis, iliopsoas, and quadratus lumborum. Mild tone in bilateral hamstrings and adductor vinod PT-OP-J Posture/Palpation/Skin Start: 10/04/17 14:21 Freq: Status: Active Protocol: Document 12/10/17 13:45 DCW (Rec: 12/10/17 13:56 DCW [id number]) Posture Evaluation Position Standing Head/C-Spine Posture Forward Head T-Spine Posture Flexible Scoliosis on (L) Increased Kyphosis L-Spine Posture Flexible Scoliosis on (R) Pelvis Posture (L) Iliac Crest Superior Hip Posture (L) Flexed (R) Flexed PT-OP-K Range of Motion Start: 10/04/17 14:21 Freq: Status: Active Protocol: Document 12/10/17 13:45 DCW (Rec: 12/10/17 13:56 DCW [id number]) Lumbar Spine Range of Motion Lumbar Spine Active Degrees Testing Position Standing Comments Max extension, pt is forward flexed 3? at her thoracic spine Shoulder Goniometric Range of Motion Shoulder Measured in Degrees Left Active Shoulder ROM WFL No Testing Position Sitting Flexion 128 Abduction 120 External Rotation at 0 degrees Abduction 54 Right Active Shoulder ROM WFL No Testing Position Sitting Flexion 108 Abduction 85 External Rotation at 0 degrees Abduction 42 PT-OP-M Strength Start: 10/04/17 14:21 Freq: Status: Active Protocol: Document 12/10/17 13:45 DCW (Rec: 12/10/17 14:04 DCW [id number]) Shoulder Strength Shoulder Manual Muscle Testing Right Flexion 4 Good Abduction (C5) 4 Good External Rotation 4- Good- Internal Rotation 5 Normal Left Flexion 4+ Good+ Abduction (C5) 4+ Good+ External Rotation 4+ Good+ Internal Rotation 5 Normal PT-OP-Q Treatments Start: 08/06/17 17:30 Freq: Status: Active Protocol: Document 02/11/18 13:45 DCW (Rec: 02/11/18 14:29 DCW [id number]) Cardio Equipment Upper Body Ergometer (UBE) Duration (Minutes) 5 RPM 60 Seat Position 12 Height 3 Therapeutic Exercises Supine Exercises Serratus Punch Supine Exercise Name Serratus anterior punch with wand Side bilateral Resistance 2# Equipment Used wand Shoulder Flexion Supine Exercise Name Flex with wand Side bilateral Resistance 2# Equipment Used wand Comments Pain-free ROM 1 Supine Exercise Name Supine on Towel roll at T10-12 Side bilateral Comments increase thoracolumbar extension Manual Therapy Treatment Soft Tissue Mobilization 3 Body Location Quadratus Lumborum Mobilization Type Myofascial Release Strumming Sustained Pressure Intensity/Depth Moderate Body Position Sidelying 2 Body Location Glute Med Mobilization Type Strumming Sustained Pressure Intensity/Depth Moderate Body Position Sidelying 1 Body Location Lumbar Erector Spinae Mobilization Type Myofascial Release Sustained Pressure Intensity/Depth Moderate Body Position Sidelying Joint Mobilizations 1 Joint Thoracic Spine Direction P->A Grade III Body Position Sidelying Manual Traction Lumbar Details Hip/Iliac crest depression Body Position Sidelying Neuro Re-Education Treatment Other Activities PNF - Irradiation Details Scapular irradiation /c resisted shoulder extension Comments in supine PT-OP-R Modalities Start: 08/06/17 17:30 Freq: Status: Active Protocol: Document 02/11/18 13:45 DCW (Rec: 02/11/18 14:29 DCW [id number]) Electric Stimulation Electric Stimulation Interferential Current (IFC) Body Location Lumbar Spine Duration (Minutes) 15 Intensity 30 Patient Position Sitting Combined With Heat/Cold Hot Pack PT-OP-T Assessment and Plan Start: 08/06/17 17:30 Freq: Status: Active Protocol: Document 02/11/18 13:45 DCW (Rec: 02/11/18 14:29 DCW [id number]) Physical Therapy Assessment Impairments Impairments Functional Mobility Pain Posture ROM Soft Tissue Mobility Strength Tone Goals Six Impairment Shoulder ROM Dry Kiln Operator Goal (LTG) Right shoulder ROM = Left shoulder ROM LTG Duration 02/09/18 Five Impairment Pt unable to lift 1/2 gallon of milk out of refrigerator with right arm Short Term Goal (STG) Pt to lift 1/2 gallon of milk with right arm without increased pain. STG Duration 01/09/18 Four Impairment Palpable muscle tone Dry Kiln Operator Goal (LTG) Pt muscle tone grossly to mild levels of tone LTG Duration 02/09/18 Three Impairment Thoracic Spine ROM Short Term Goal (STG) Thoracic spine to lacking 10 degrees from neutral at full extension STG Duration Met Dry Kiln Operator Goal (LTG) Thoracic spine to neutral at full extension LTG Duration 02/09/18 Two Impairment Pain Alf Goal (LTG) Pt to report decreased pain to a max of 4/10 LTG Duration 02/09/18 One Impairment Activity tolerance Alf Goal (LTG) Pt to tolerate gardening with no increased pain for three hours LTG Duration 02/09/18 Assessment Summary Assessment Pt displaying improved standing posture, however continue to complain of occasional pain from her ribs rubbing against her iliac crest. Physical Therapy Plan Frequency and Duration Frequency of Treatment 1x/Week Duration of Treatment 12 weeks Plan of Care Start Date 12/10/17 Plan of Care End Date 03/07/18 Therapeutic Interventions Therapeutic Interventions Aquatic Therapy Home Exercise Program Joint Mobilizations Manual Therapy Neuromuscular Re-education Self-Care/Home Management Soft Tissue Mobilization Therapeutic Exercises Modalities Cold Pack/Ice Massage Electric Stimulation Hot Packs Next Visit Focus/Plan Next Note Type Treatment Note Next Visit Plan Manual therapy and TherEx to limit further Kyphosis, addition of shoulder strengthening.
--- NOTE | 2018-02-18 14:28 | PT.OTN ---
Current Diagnoses Scoliosis, unspecified (02/18/18) Spondylosis without myelopathy or radiculopathy, cervical region (02/18/18) Other intervertebral disc degeneration, lumbosacral region (02/18/18) Pain in thoracic spine (02/18/18) Physical Therapy Treatment Note PT-OP-A Visit Information Start: 08/06/17 17:30 Freq: Status: Active Protocol: Document 02/18/18 13:45 DCW (Rec: 02/18/18 14:27 DCW [id number]) Out-Patient Physical Therapy Visit Information Visit Information Visit Type Treatment Note Visit Start Time 13:45 Visit Stop Time 14:40 Total Visit Minutes 55 Visit Number 33 Number of COMMISSION ASSOCIATE Visits 0 Evaluation Information Evaluation Date 05/28/17 PT-OP-B Current Condition Start: 10/04/17 14:21 Freq: Status: Active Protocol: Document 12/10/17 13:45 DCW (Rec: 12/10/17 13:56 DCW [id number]) Current Condition History of Current Condition History of Current Condition Please see patient's chart in Therapy Source for complete history and initial evaluation Current Functional Impairments (Reported) Functional Limitations- Recreation/ Pt unable to tolerate yard- Hobbies work more than 60 minutes without significant increased pain in her shoulders. PT-OP-C Subjective Start: 08/06/17 17:30 Freq: Status: Active Protocol: Document 02/18/18 13:45 DCW (Rec: 02/18/18 14:27 DCW [id number]) OP-PT Subjective Patient Comments Patient Comments Pt reports that she is feeling pretty good today, despite having a busy day. PT-OP-F Manual Assessment Start: 10/04/17 14:21 Freq: Status: Active Protocol: Document 12/10/17 13:45 DCW (Rec: 12/10/17 13:56 DCW [id number]) Manual Assessments Soft Tissue Assessment Soft Tissue Mobility Assessment Moderate tone in Bilateral thoracic and lumbar paraspinals, piriformis, iliopsoas, and quadratus lumborum. Mild tone in bilateral hamstrings and adductor vinod PT-OP-J Posture/Palpation/Skin Start: 10/04/17 14:21 Freq: Status: Active Protocol: Document 12/10/17 13:45 DCW (Rec: 12/10/17 13:56 DCW [id number]) Posture Evaluation Position Standing Head/C-Spine Posture Forward Head T-Spine Posture Flexible Scoliosis on (L) Increased Kyphosis L-Spine Posture Flexible Scoliosis on (R) Pelvis Posture (L) Iliac Crest Superior Hip Posture (L) Flexed (R) Flexed PT-OP-K Range of Motion Start: 10/04/17 14:21 Freq: Status: Active Protocol: Document 12/10/17 13:45 DCW (Rec: 12/10/17 13:56 DCW [id number]) Lumbar Spine Range of Motion Lumbar Spine Active Degrees Testing Position Standing Comments Max extension, pt is forward flexed 3? at her thoracic spine Shoulder Goniometric Range of Motion Shoulder Measured in Degrees Left Active Shoulder ROM WFL No Testing Position Sitting Flexion 128 Abduction 120 External Rotation at 0 degrees Abduction 54 Right Active Shoulder ROM WFL No Testing Position Sitting Flexion 108 Abduction 85 External Rotation at 0 degrees Abduction 42 PT-OP-M Strength Start: 10/04/17 14:21 Freq: Status: Active Protocol: Document 12/10/17 13:45 DCW (Rec: 12/10/17 14:04 DCW [id number]) Shoulder Strength Shoulder Manual Muscle Testing Right Flexion 4 Good Abduction (C5) 4 Good External Rotation 4- Good- Internal Rotation 5 Normal Left Flexion 4+ Good+ Abduction (C5) 4+ Good+ External Rotation 4+ Good+ Internal Rotation 5 Normal PT-OP-Q Treatments Start: 08/06/17 17:30 Freq: Status: Active Protocol: Document 02/18/18 13:45 DCW (Rec: 02/18/18 14:27 DCW [id number]) Cardio Equipment Upper Body Ergometer (UBE) Duration (Minutes) 5 RPM 60 Seat Position 12 Height 3.5 Therapeutic Exercises Supine Exercises Serratus Punch Supine Exercise Name Serratus anterior punch with wand Side bilateral Resistance 2# Equipment Used wand Shoulder Flexion Supine Exercise Name Flex with wand Side bilateral Resistance 2# Equipment Used wand Comments Pain-free ROM 1 Supine Exercise Name Supine on Towel roll at T10-12 Side bilateral Comments increase thoracolumbar extension Manual Therapy Treatment Soft Tissue Mobilization 3 Body Location Quadratus Lumborum Mobilization Type Myofascial Release Strumming Sustained Pressure Intensity/Depth Moderate Body Position Sidelying 2 Body Location Glute Med Mobilization Type Strumming Sustained Pressure Intensity/Depth Moderate Body Position Sidelying 1 Body Location Lumbar Erector Spinae Mobilization Type Myofascial Release Sustained Pressure Intensity/Depth Moderate Body Position Sidelying Joint Mobilizations 1 Joint Thoracic Spine Direction P->A Grade III Body Position Sidelying Manual Traction Lumbar Details Hip/Iliac crest depression Body Position Sidelying PT-OP-R Modalities Start: 08/06/17 17:30 Freq: Status: Active Protocol: Document 02/18/18 13:45 DCW (Rec: 02/18/18 14:28 DCW [id number]) Electric Stimulation Electric Stimulation Interferential Current (IFC) Body Location Lumbar Spine Duration (Minutes) 15 Intensity 30 Patient Position Sitting Combined With Heat/Cold Hot Pack PT-OP-T Assessment and Plan Start: 08/06/17 17:30 Freq: Status: Active Protocol: Document 02/18/18 13:45 DCW (Rec: 02/18/18 14:27 DCW [id number]) Physical Therapy Assessment Impairments Impairments Functional Mobility Pain Posture ROM Soft Tissue Mobility Strength Tone Goals Six Impairment Shoulder ROM Sanitary [place] Machine Tender Goal (LTG) Right shoulder ROM = Left shoulder ROM LTG Duration 02/09/18 Five Impairment Pt unable to lift 1/2 gallon of milk out of refrigerator with right arm Short Term Goal (STG) Pt to lift 1/2 gallon of milk with right arm without increased pain. STG Duration 01/09/18 Four Impairment Palpable muscle tone Sanitary [place] Machine Tender Goal (LTG) Pt muscle tone grossly to mild levels of tone LTG Duration 02/09/18 Three Impairment Thoracic Spine ROM Short Term Goal (STG) Thoracic spine to lacking 10 degrees from neutral at full extension STG Duration Met Sanitary [place] Machine Tender Goal (LTG) Thoracic spine to neutral at full extension LTG Duration 02/09/18 Two Impairment Pain Sanitary [place] Machine Tender Goal (LTG) Pt to report decreased pain to a max of 4/10 LTG Duration 02/09/18 One Impairment Activity tolerance Sanitary [place] Machine Tender Goal (LTG) Pt to tolerate gardening with no increased pain for three hours LTG Duration 02/09/18 Assessment Summary Assessment Pt moving better today, able to turn to side-lying with less difficulty secondary to pain. Physical Therapy Plan Frequency and Duration Frequency of Treatment 1x/Week Duration of Treatment 12 weeks Plan of Care Start Date 12/10/17 Plan of Care End Date 12/06/18 Therapeutic Interventions Therapeutic Interventions Aquatic Therapy Home Exercise Program Joint Mobilizations Manual Therapy Neuromuscular Re-education Self-Care/Home Management Soft Tissue Mobilization Therapeutic Exercises Modalities Cold Pack/Ice Massage Electric Stimulation Hot Packs Next Visit Focus/Plan Next Note Type Treatment Note Next Visit Plan Manual therapy and TherEx to limit further Kyphosis, addition of shoulder strengthening.
--- NOTE | 2018-02-25 14:30 | PT.OTN ---
Current Diagnoses Scoliosis, unspecified (02/25/18) Spondylosis without myelopathy or radiculopathy, cervical region (02/25/18) Other intervertebral disc degeneration, lumbosacral region (02/25/18) Pain in thoracic spine (02/25/18) Physical Therapy Treatment Note PT-OP-A Visit Information Start: 08/06/17 17:30 Freq: Status: Active Protocol: Document 02/25/18 13:45 DCW (Rec: 02/25/18 14:30 DCW [id number]) Out-Patient Physical Therapy Visit Information Visit Information Visit Type Treatment Note Visit Start Time 13:45 Visit Stop Time 14:40 Total Visit Minutes 55 Visit Number 34 Number of FAMILY REUNIFICATION SPECIALIST Visits 0 Evaluation Information Evaluation Date 05/28/17 PT-OP-B Current Condition Start: 10/04/17 14:21 Freq: Status: Active Protocol: Document 12/10/17 13:45 DCW (Rec: 12/10/17 13:56 DCW [id number]) Current Condition History of Current Condition History of Current Condition Please see patient's chart in Therapy Source for complete history and initial evaluation Current Functional Impairments (Reported) Functional Limitations- Recreation/ Pt unable to tolerate yard- Hobbies work more than 60 minutes without significant increased pain in her shoulders. PT-OP-C Subjective Start: 08/06/17 17:30 Freq: Status: Active Protocol: Document 02/25/18 13:45 DCW (Rec: 02/25/18 14:30 DCW [id number]) OP-PT Subjective Patient Comments Patient Comments Aside from my lower back not doing too well, I'm pretty good today. PT-OP-F Manual Assessment Start: 10/04/17 14:21 Freq: Status: Active Protocol: Document 12/10/17 13:45 DCW (Rec: 12/10/17 13:56 DCW [id number]) Manual Assessments Soft Tissue Assessment Soft Tissue Mobility Assessment Moderate tone in Bilateral thoracic and lumbar paraspinals, piriformis, iliopsoas, and quadratus lumborum. Mild tone in bilateral hamstrings and adductor vinod PT-OP-J Posture/Palpation/Skin Start: 10/04/17 14:21 Freq: Status: Active Protocol: Document 12/10/17 13:45 DCW (Rec: 12/10/17 13:56 DCW [id number]) Posture Evaluation Position Standing Head/C-Spine Posture Forward Head T-Spine Posture Flexible Scoliosis on (L) Increased Kyphosis L-Spine Posture Flexible Scoliosis on (R) Pelvis Posture (L) Iliac Crest Superior Hip Posture (L) Flexed (R) Flexed PT-OP-K Range of Motion Start: 10/04/17 14:21 Freq: Status: Active Protocol: Document 12/10/17 13:45 DCW (Rec: 12/10/17 13:56 DCW [id number]) Lumbar Spine Range of Motion Lumbar Spine Active Degrees Testing Position Standing Comments Max extension, pt is forward flexed 3? at her thoracic spine Shoulder Goniometric Range of Motion Shoulder Measured in Degrees Left Active Shoulder ROM WFL No Testing Position Sitting Flexion 128 Abduction 120 External Rotation at 0 degrees Abduction 54 Right Active Shoulder ROM WFL No Testing Position Sitting Flexion 108 Abduction 85 External Rotation at 0 degrees Abduction 42 PT-OP-M Strength Start: 10/04/17 14:21 Freq: Status: Active Protocol: Document 12/10/17 13:45 DCW (Rec: 12/10/17 14:04 DCW [id number]) Shoulder Strength Shoulder Manual Muscle Testing Right Flexion 4 Good Abduction (C5) 4 Good External Rotation 4- Good- Internal Rotation 5 Normal Left Flexion 4+ Good+ Abduction (C5) 4+ Good+ External Rotation 4+ Good+ Internal Rotation 5 Normal PT-OP-Q Treatments Start: 08/06/17 17:30 Freq: Status: Active Protocol: Document 02/25/18 13:45 DCW (Rec: 02/25/18 14:30 DCW [id number]) Cardio Equipment Upper Body Ergometer (UBE) Duration (Minutes) 5 RPM 60 Seat Position 12 Height 3.5 Therapeutic Exercises Supine Exercises 1 Supine Exercise Name Supine on Towel roll at T10-12 Side bilateral Comments increase thoracolumbar extension Standing Exercises Rows Standing Exercise Name Rows Side bilateral Resistance Lv 2 Equipment Used T-band Shoulder Extension Standing Exercise Name Extension Side bilateral Resistance Lv 2 Equipment Used T-band Manual Therapy Treatment Soft Tissue Mobilization 3 Body Location Quadratus Lumborum Mobilization Type Myofascial Release Strumming Sustained Pressure Intensity/Depth Moderate Body Position Sidelying 2 Body Location Glute Med Mobilization Type Strumming Sustained Pressure Intensity/Depth Moderate Body Position Sidelying 1 Body Location Lumbar Erector Spinae Mobilization Type Myofascial Release Sustained Pressure Intensity/Depth Moderate Body Position Sidelying Joint Mobilizations 1 Joint Thoracic Spine Direction P->A Grade III Body Position Sidelying Manual Traction Lumbar Details Hip/Iliac crest depression Body Position Sidelying Neuro Re-Education Treatment Other Activities PNF - Irradiation Details Scapular irradiation /c resisted shoulder extension Comments in supine PT-OP-R Modalities Start: 08/06/17 17:30 Freq: Status: Active Protocol: Document 02/25/18 13:45 DCW (Rec: 02/25/18 14:30 DCW [id number]) Electric Stimulation Electric Stimulation Interferential Current (IFC) Body Location Lumbar Spine Duration (Minutes) 15 Intensity 33 Patient Position Sitting Combined With Heat/Cold Hot Pack PT-OP-T Assessment and Plan Start: 08/06/17 17:30 Freq: Status: Active Protocol: Document 02/25/18 13:45 DCW (Rec: 02/25/18 14:30 DCW [id number]) Physical Therapy Assessment Impairments Impairments Functional Mobility Pain Posture ROM Soft Tissue Mobility Strength Tone Goals Six Impairment Shoulder ROM Mcc Goal (LTG) Right shoulder ROM = Left shoulder ROM LTG Duration 02/09/18 Five Impairment Pt unable to lift 1/2 gallon of milk out of refrigerator with right arm Short Term Goal (STG) Pt to lift 1/2 gallon of milk with right arm without increased pain. STG Duration 01/09/18 Four Impairment Palpable muscle tone Prize Jacker Goal (LTG) Pt muscle tone grossly to mild levels of tone LTG Duration 02/09/18 Three Impairment Thoracic Spine ROM Short Term Goal (STG) Thoracic spine to lacking 10 degrees from neutral at full extension STG Duration Met Prize Jacker Goal (LTG) Thoracic spine to neutral at full extension LTG Duration 02/09/18 Two Impairment Pain Prize Jacker Goal (LTG) Pt to report decreased pain to a max of 4/10 LTG Duration 02/09/18 One Impairment Activity tolerance Mcc Goal (LTG) Pt to tolerate gardening with no increased pain for three hours LTG Duration 02/09/18 Assessment Summary Assessment During today's standing shoulder exercises, pt able to display best posture since she began therapy, nearly neutral in lumbar spine and shoulders aligned with hips when viewed laterally. Physical Therapy Plan Frequency and Duration Frequency of Treatment 1x/Week Duration of Treatment 12 weeks Plan of Care Start Date 12/10/17 Plan of Care End Date 03/07/18 Therapeutic Interventions Therapeutic Interventions Aquatic Therapy Home Exercise Program Joint Mobilizations Manual Therapy Neuromuscular Re-education Self-Care/Home Management Soft Tissue Mobilization Therapeutic Exercises Modalities Cold Pack/Ice Massage Electric Stimulation Hot Packs Next Visit Focus/Plan Next Note Type Treatment Note Next Visit Plan Manual therapy and TherEx to limit further Kyphosis, Shoulder strengthening and ROM
--- NOTE | 2018-03-05 16:44 | PT.OTN ---
Current Diagnoses Scoliosis, unspecified (03/05/18) Spondylosis without myelopathy or radiculopathy, cervical region (03/05/18) Other intervertebral disc degeneration, lumbosacral region (03/05/18) Pain in thoracic spine (03/05/18) Physical Therapy Treatment Note PT-OP-A Visit Information Start: 08/06/17 17:30 Freq: Status: Active Protocol: Document 03/05/18 16:00 DCW (Rec: 03/05/18 16:44 DCW [id number]) Out-Patient Physical Therapy Visit Information Visit Information Visit Type Progress Note Visit Start Time 16:00 Visit Stop Time 16:55 Total Visit Minutes 55 Visit Number 35 Number of POWDER MONKEY Visits 0 Evaluation Information Evaluation Date 05/28/17 PT-OP-B Current Condition Start: 10/04/17 14:21 Freq: Status: Active Protocol: Document 12/10/17 13:45 DCW (Rec: 12/10/17 13:56 DCW [id number]) Current Condition History of Current Condition History of Current Condition Please see patient's chart in Therapy Source for complete history and initial evaluation Current Functional Impairments (Reported) Functional Limitations- Recreation/ Pt unable to tolerate yard- Hobbies work more than 60 minutes without significant increased pain in her shoulders. 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 PT-OP-F Manual Assessment Start: 10/04/17 14:21 Freq: Status: Active Protocol: Document 03/05/18 16:00 DCW (Rec: 03/05/18 16:15 DCW [id number]) Manual Assessments Soft Tissue Assessment Soft Tissue Mobility Assessment Moderate tone in Bilateral thoracic and lumbar paraspinals, piriformis, iliopsoas, and quadratus lumborum. Mild tone in bilateral hamstrings and adductor vinod PT-OP-J Posture/Palpation/Skin Start: 10/04/17 14:21 Freq: Status: Active Protocol: Document 03/05/18 16:00 DCW (Rec: 03/05/18 16:14 DCW [id number]) Posture Evaluation Position Standing Head/C-Spine Posture Forward Head T-Spine Posture Flexible Scoliosis on (L) Increased Kyphosis L-Spine Posture Flexible Scoliosis on (R) Pelvis Posture (L) Iliac Crest Superior Hip Posture (L) Flexed (R) Flexed PT-OP-K Range of Motion Start: 10/04/17 14:21 Freq: Status: Active Protocol: Document 03/05/18 16:00 DCW (Rec: 03/05/18 16:14 DCW [id number]) Lumbar Spine Range of Motion Lumbar Spine Active Degrees Testing Position Standing Comments Max extension, pt is forward flexed 3? at her thoracic spine Shoulder Goniometric Range of Motion Shoulder Measured in Degrees Left Active Shoulder ROM WFL No Testing Position Sitting Flexion 135 Abduction 134 External Rotation at 0 degrees Abduction 54 Right Active Shoulder ROM WFL No Testing Position Sitting Flexion 128 Abduction 118 External Rotation at 0 degrees Abduction 52 PT-OP-M Strength Start: 10/04/17 14:21 Freq: Status: Active Protocol: Document 03/05/18 16:00 DCW (Rec: 03/05/18 16:14 DCW [id number]) Shoulder Strength Shoulder Manual Muscle Testing Right Flexion 4 Good Abduction (C5) 4+ Good+ External Rotation 4 Good Internal Rotation 5 Normal Left Flexion 4+ Good+ Abduction (C5) 4+ Good+ External Rotation 4+ Good+ Internal Rotation 5 Normal PT-OP-Q Treatments Start: 08/06/17 17:30 Freq: Status: Active Protocol: Document 03/05/18 16:00 DCW (Rec: 03/05/18 16:44 DCW [id number]) Cardio Equipment Upper Body Ergometer (UBE) Duration (Minutes) 5 RPM 60 Seat Position 12 Height 3.5 Therapeutic Exercises Supine Exercises Serratus Punch Supine Exercise Name Serratus anterior punch with wand Side bilateral Resistance 4# Equipment Used wand Shoulder Flexion Supine Exercise Name Flex with wand Side bilateral Resistance 4# Equipment Used wand Comments Pain-free ROM 1 Supine Exercise Name Supine on Towel roll at T10-12 Side bilateral Comments increase thoracolumbar extension Manual Therapy Treatment Soft Tissue Mobilization 3 Body Location Quadratus Lumborum Mobilization Type Myofascial Release Strumming Sustained Pressure Intensity/Depth Moderate Body Position Sidelying 2 Body Location Glute Med Mobilization Type Strumming Sustained Pressure Intensity/Depth Moderate Body Position Sidelying 1 Body Location Lumbar Erector Spinae Mobilization Type Myofascial Release Sustained Pressure Intensity/Depth Moderate Body Position Sidelying Joint Mobilizations 1 Joint Thoracic Spine Direction P->A Grade III Body Position Sidelying Manual Traction Lumbar Details Hip/Iliac crest depression Body Position Sidelying PT-OP-R Modalities Start: 08/06/17 17:30 Freq: Status: Active Protocol: Document 03/05/18 16:00 DCW (Rec: 03/05/18 16:44 DCW [id number]) Electric Stimulation Electric Stimulation Interferential Current (IFC) Body Location Lumbar Spine Duration (Minutes) 15 Intensity 39 Patient Position Sitting Combined With Heat/Cold Hot Pack PT-OP-T Assessment and Plan Start: 08/06/17 17:30 Freq: Status: Active Protocol: Document 03/05/18 16:00 DCW (Rec: 03/05/18 16:44 DCW [id number]) Physical Therapy Assessment Impairments Impairments Functional Mobility Pain Posture ROM Soft Tissue Mobility Strength Tone Goals Six Impairment Shoulder ROM Muffle Operator Goal (LTG) Right shoulder ROM = Left shoulder ROM LTG Duration 05/06/18 Five Impairment Pt unable to lift 1/2 gallon of milk out of refrigerator with right arm Short Term Goal (STG) Pt to lift 1/2 gallon of milk with right arm without increased pain. STG Duration 04/05/18 Four Impairment Palpable muscle tone Muffle Operator Goal (LTG) Pt muscle tone grossly to mild levels of tone LTG Duration 05/06/18 Three Impairment Thoracic Spine ROM Short Term Goal (STG) Thoracic spine to lacking 10 degrees from neutral at full extension STG Duration Met Muffle Operator Goal (LTG) Thoracic spine to neutral at full extension LTG Duration 05/06/18 Two Impairment Pain Muffle Operator Goal (LTG) Pt to report decreased pain to a max of 4/10 LTG Duration 05/06/18 One Impairment Activity tolerance Mcfp Goal (LTG) Pt to tolerate gardening with no increased pain for three hours LTG Duration 05/07/18 Assessment Summary Assessment Pt's back has been making good improvement recently, particularly with her standing posture following her PT sessions. Additionally, pt's shoulder shows significant improvement in ROM, with mil;d increases in strength. Physical Therapy Plan Frequency and Duration Frequency of Treatment 1x/Week Duration of Treatment 12 weeks Plan of Care Start Date 03/05/18 Plan of Care End Date 05/28/18 Therapeutic Interventions Therapeutic Interventions Aquatic Therapy Home Exercise Program Joint Mobilizations Manual Therapy Neuromuscular Re-education Self-Care/Home Management Soft Tissue Mobilization Therapeutic Exercises Modalities Cold Pack/Ice Massage Electric Stimulation Hot Packs Next Visit Focus/Plan Next Note Type Treatment Note Next Visit Plan Manual therapy and TherEx to limit further Kyphosis, Shoulder strengthening and ROM
--- NOTE | 2018-03-05 16:44 | PT.OPPOC ---
Current Diagnoses Scoliosis, unspecified (03/05/18) Spondylosis without myelopathy or radiculopathy, cervical region (03/05/18) Other intervertebral disc degeneration, lumbosacral region (03/05/18) Pain in thoracic spine (03/05/18) Provider Visit Care Team Role Provider Type Jia Sheridan MD Attending Provider Physician Family Provider Primary Care Provider Specialty: Family Practice Address: [address] [place] [address], [facility] Email: Plan Of Care PT-OP-T Assessment and Plan Start: 08/06/17 17:30 Freq: Status: Active Protocol: Document 03/05/18 16:00 DCW (Rec: 03/05/18 16:44 DCW [id number]) Physical Therapy Assessment Impairments Impairments Functional Mobility Pain Posture ROM Soft Tissue Mobility Strength Tone Goals Six Impairment Shoulder ROM Competitive Shopper Goal (LTG) Right shoulder ROM = Left shoulder ROM LTG Duration 05/06/18 Five Impairment Pt unable to lift 1/2 gallon of milk out of refrigerator with right arm Short Term Goal (STG) Pt to lift 1/2 gallon of milk with right arm without increased pain. STG Duration 04/05/18 Four Impairment Palpable muscle tone Retirement Goal (LTG) Pt muscle tone grossly to mild levels of tone LTG Duration 05/06/18 Three Impairment Thoracic Spine ROM Short Term Goal (STG) Thoracic spine to lacking 10 degrees from neutral at full extension STG Duration Met Retirement Goal (LTG) Thoracic spine to neutral at full extension LTG Duration 05/06/18 Two Impairment Pain Retirement Goal (LTG) Pt to report decreased pain to a max of 4/10 LTG Duration 05/06/18 One Impairment Activity tolerance Retirement Goal (LTG) Pt to tolerate gardening with no increased pain for three hours LTG Duration 05/07/18 Assessment Summary Assessment Pt's back has been making good improvement recently, particularly with her standing posture following her PT sessions. Additionally, pt's shoulder shows significant improvement in ROM, with mil;d increases in strength. Physical Therapy Plan Frequency and Duration Frequency of Treatment 1x/Week Duration of Treatment 12 weeks Plan of Care Start Date 03/05/18 Plan of Care End Date 05/28/18 Therapeutic Interventions Therapeutic Interventions Aquatic Therapy Home Exercise Program Joint Mobilizations Manual Therapy Neuromuscular Re-education Self-Care/Home Management Soft Tissue Mobilization Therapeutic Exercises Modalities Cold Pack/Ice Massage Electric Stimulation Hot Packs Next Visit Focus/Plan Next Note Type Treatment Note Next Visit Plan Manual therapy and TherEx to limit further Kyphosis, Shoulder strengthening and ROM Plan of Care Dates Plan of Care Start Date 03/05/18 Plan of Care End Date 05/28/18 Please Sign and Return: I have reviewed this Plan of Care and certify that the skilled therapy services above are required to meet the patient?s needs. Physician Signature Date Printed Name and Credentials Clinical Instructor Signature Printed Name and Credentials
--- NOTE | 2018-03-13 14:28 | PT.OTN ---
Current Diagnoses Scoliosis, unspecified (03/13/18) Spondylosis without myelopathy or radiculopathy, cervical region (03/13/18) Other intervertebral disc degeneration, lumbosacral region (03/13/18) Pain in thoracic spine (03/13/18) Physical Therapy Treatment Note PT-OP-A Visit Information Start: 08/06/17 17:30 Freq: Status: Active Protocol: Document 03/13/18 13:45 DCW (Rec: 03/13/18 14:28 DCW [id number]) Out-Patient Physical Therapy Visit Information Visit Information Visit Type Treatment Note Visit Start Time 13:45 Visit Stop Time 14:40 Total Visit Minutes 55 Visit Number 36 Number of LOW RAW SUGAR CUTTER Visits 0 Evaluation Information Evaluation Date 05/28/17 PT-OP-B Current Condition Start: 10/04/17 14:21 Freq: Status: Active Protocol: Document 12/10/17 13:45 DCW (Rec: 12/10/17 13:56 DCW [id number]) Current Condition History of Current Condition History of Current Condition Please see patient's chart in Therapy Source for complete history and initial evaluation Current Functional Impairments (Reported) Functional Limitations- Recreation/ Pt unable to tolerate yard- Hobbies work more than 60 minutes without significant increased pain in her shoulders. PT-OP-C Subjective Start: 08/06/17 17:30 Freq: Status: Active Protocol: Document 03/13/18 13:45 DCW (Rec: 03/13/18 14:28 DCW [id number]) OP-PT Subjective Patient Comments Patient Comments Pt reports that physically, she is doing well, but unfortunately her friend, who was 89 years old, this week, so she is having a difficult time emotionally. PT-OP-F Manual Assessment Start: 10/04/17 14:21 Freq: Status: Active Protocol: Document 03/05/18 16:00 DCW (Rec: 03/05/18 16:15 DCW [id number]) Manual Assessments Soft Tissue Assessment Soft Tissue Mobility Assessment Moderate tone in Bilateral thoracic and lumbar paraspinals, piriformis, iliopsoas, and quadratus lumborum. Mild tone in bilateral hamstrings and adductor vinod PT-OP-J Posture/Palpation/Skin Start: 10/04/17 14:21 Freq: Status: Active Protocol: Document 03/05/18 16:00 DCW (Rec: 03/05/18 16:14 DCW [id number]) Posture Evaluation Position Standing Head/C-Spine Posture Forward Head T-Spine Posture Flexible Scoliosis on (L) Increased Kyphosis L-Spine Posture Flexible Scoliosis on (R) Pelvis Posture (L) Iliac Crest Superior Hip Posture (L) Flexed (R) Flexed PT-OP-K Range of Motion Start: 10/04/17 14:21 Freq: Status: Active Protocol: Document 03/05/18 16:00 DCW (Rec: 03/05/18 16:14 DCW [id number]) Lumbar Spine Range of Motion Lumbar Spine Active Degrees Testing Position Standing Comments Max extension, pt is forward flexed 3? at her thoracic spine Shoulder Goniometric Range of Motion Shoulder Measured in Degrees Left Active Shoulder ROM WFL No Testing Position Sitting Flexion 135 Abduction 134 External Rotation at 0 degrees Abduction 54 Right Active Shoulder ROM WFL No Testing Position Sitting Flexion 128 Abduction 118 External Rotation at 0 degrees Abduction 52 PT-OP-M Strength Start: 10/04/17 14:21 Freq: Status: Active Protocol: Document 03/05/18 16:00 DCW (Rec: 03/05/18 16:14 DCW [id number]) Shoulder Strength Shoulder Manual Muscle Testing Right Flexion 4 Good Abduction (C5) 4+ Good+ External Rotation 4 Good Internal Rotation 5 Normal Left Flexion 4+ Good+ Abduction (C5) 4+ Good+ External Rotation 4+ Good+ Internal Rotation 5 Normal PT-OP-Q Treatments Start: 08/06/17 17:30 Freq: Status: Active Protocol: Document 03/13/18 13:45 DCW (Rec: 03/13/18 14:28 DCW [id number]) Cardio Equipment Upper Body Ergometer (UBE) Duration (Minutes) 5 RPM 60 Seat Position 12 Height 3.5 Therapeutic Exercises Supine Exercises Serratus Punch Supine Exercise Name Serratus anterior punch with wand Side bilateral Resistance 4# Equipment Used wand 1 Supine Exercise Name Supine on Towel roll at T10-12 Side bilateral Comments increase thoracolumbar extension Standing Exercises Rows Standing Exercise Name Rows Side bilateral Resistance Lv 2 Equipment Used T-band Shoulder Extension Standing Exercise Name Extension Side bilateral Resistance Lv 2 Equipment Used T-band Manual Therapy Treatment Soft Tissue Mobilization 3 Body Location Quadratus Lumborum Mobilization Type Myofascial Release Strumming Sustained Pressure Intensity/Depth Moderate Body Position Sidelying 2 Body Location Glute Med Mobilization Type Strumming Sustained Pressure Intensity/Depth Moderate Body Position Sidelying 1 Body Location Lumbar Erector Spinae Mobilization Type Myofascial Release Sustained Pressure Intensity/Depth Moderate Body Position Sidelying Joint Mobilizations 1 Joint Thoracic Spine Direction P->A Grade III Body Position Sidelying Manual Traction Lumbar Details Hip/Iliac crest depression Body Position Sidelying PT-OP-R Modalities Start: 08/06/17 17:30 Freq: Status: Active Protocol: Document 03/13/18 13:45 DCW (Rec: 03/13/18 14:28 DCW [id number]) Electric Stimulation Electric Stimulation Interferential Current (IFC) Body Location Lumbar Spine Duration (Minutes) 15 Intensity 48 Patient Position Sitting Combined With Heat/Cold Hot Pack PT-OP-T Assessment and Plan Start: 08/06/17 17:30 Freq: Status: Active Protocol: Document 03/13/18 13:45 DCW (Rec: 03/13/18 14:28 DCW [id number]) Physical Therapy Assessment Impairments Impairments Functional Mobility Pain Posture ROM Soft Tissue Mobility Strength Tone Goals Six Impairment Shoulder ROM Lmsw Goal (LTG) Right shoulder ROM = Left shoulder ROM LTG Duration 05/06/18 Five Impairment Pt unable to lift 1/2 gallon of milk out of refrigerator with right arm Short Term Goal (STG) Pt to lift 1/2 gallon of milk with right arm without increased pain. STG Duration 04/05/18 Four Impairment Palpable muscle tone Lmsw Goal (LTG) Pt muscle tone grossly to mild levels of tone LTG Duration 05/06/18 Three Impairment Thoracic Spine ROM Short Term Goal (STG) Thoracic spine to lacking 10 degrees from neutral at full extension STG Duration Met Lmsw Goal (LTG) Thoracic spine to neutral at full extension LTG Duration 05/06/18 Two Impairment Pain Lmsw Goal (LTG) Pt to report decreased pain to a max of 4/10 LTG Duration 05/06/18 One Impairment Activity tolerance Halfway Goal (LTG) Pt to tolerate gardening with no increased pain for three hours LTG Duration 05/07/18 Assessment Summary Assessment Pt presents today with decreased paraspinal tone. Decreased complaints of tenderness with palpation. Physical Therapy Plan Frequency and Duration Frequency of Treatment 1x/Week Duration of Treatment 12 weeks Plan of Care Start Date 03/05/18 Plan of Care End Date 05/28/18 Therapeutic Interventions Therapeutic Interventions Aquatic Therapy Home Exercise Program Joint Mobilizations Manual Therapy Neuromuscular Re-education Self-Care/Home Management Soft Tissue Mobilization Therapeutic Exercises Modalities Cold Pack/Ice Massage Electric Stimulation Hot Packs Next Visit Focus/Plan Next Note Type Treatment Note Next Visit Plan Manual therapy and TherEx to limit further Kyphosis, Shoulder strengthening and ROM
--- NOTE | 2018-03-20 14:27 | PT.OTN ---
Current Diagnoses Scoliosis, unspecified (03/20/18) Spondylosis without myelopathy or radiculopathy, cervical region (03/20/18) Other intervertebral disc degeneration, lumbosacral region (03/20/18) Pain in thoracic spine (03/20/18) Physical Therapy Treatment Note PT-OP-A Visit Information Start: 08/06/17 17:30 Freq: Status: Active Protocol: Document 03/20/18 13:45 DCW (Rec: 03/20/18 14:27 DCW [id number]) Out-Patient Physical Therapy Visit Information Visit Information Visit Type Treatment Note Visit Start Time 13:45 Visit Stop Time 14:40 Total Visit Minutes 55 Visit Number 37 Number of WAITER/WAITRESS BUFFET Visits 0 Evaluation Information Evaluation Date 05/28/17 PT-OP-B Current Condition Start: 10/04/17 14:21 Freq: Status: Active Protocol: Document 12/10/17 13:45 DCW (Rec: 12/10/17 13:56 DCW [id number]) Current Condition History of Current Condition History of Current Condition Please see patient's chart in Therapy Source for complete history and initial evaluation Current Functional Impairments (Reported) Functional Limitations- Recreation/ Pt unable to tolerate yard- Hobbies work more than 60 minutes without significant increased pain in her shoulders. PT-OP-C Subjective Start: 08/06/17 17:30 Freq: Status: Active Protocol: Document 03/20/18 13:45 DCW (Rec: 03/20/18 14:27 DCW [id number]) OP-PT Subjective Patient Comments Patient Comments Pt reports that she has a little kink in her low back today for some reason. PT-OP-F Manual Assessment Start: 10/04/17 14:21 Freq: Status: Active Protocol: Document 03/05/18 16:00 DCW (Rec: 03/05/18 16:15 DCW [id number]) Manual Assessments Soft Tissue Assessment Soft Tissue Mobility Assessment Moderate tone in Bilateral thoracic and lumbar paraspinals, piriformis, iliopsoas, and quadratus lumborum. Mild tone in bilateral hamstrings and adductor vinod PT-OP-J Posture/Palpation/Skin Start: 10/04/17 14:21 Freq: Status: Active Protocol: Document 03/05/18 16:00 DCW (Rec: 03/05/18 16:14 DCW [id number]) Posture Evaluation Position Standing Head/C-Spine Posture Forward Head T-Spine Posture Flexible Scoliosis on (L) Increased Kyphosis L-Spine Posture Flexible Scoliosis on (R) Pelvis Posture (L) Iliac Crest Superior Hip Posture (L) Flexed (R) Flexed PT-OP-K Range of Motion Start: 10/04/17 14:21 Freq: Status: Active Protocol: Document 03/05/18 16:00 DCW (Rec: 03/05/18 16:14 DCW [id number]) Lumbar Spine Range of Motion Lumbar Spine Active Degrees Testing Position Standing Comments Max extension, pt is forward flexed 3? at her thoracic spine Shoulder Goniometric Range of Motion Shoulder Measured in Degrees Left Active Shoulder ROM WFL No Testing Position Sitting Flexion 135 Abduction 134 External Rotation at 0 degrees Abduction 54 Right Active Shoulder ROM WFL No Testing Position Sitting Flexion 128 Abduction 118 External Rotation at 0 degrees Abduction 52 PT-OP-M Strength Start: 10/04/17 14:21 Freq: Status: Active Protocol: Document 03/05/18 16:00 DCW (Rec: 03/05/18 16:14 DCW [id number]) Shoulder Strength Shoulder Manual Muscle Testing Right Flexion 4 Good Abduction (C5) 4+ Good+ External Rotation 4 Good Internal Rotation 5 Normal Left Flexion 4+ Good+ Abduction (C5) 4+ Good+ External Rotation 4+ Good+ Internal Rotation 5 Normal PT-OP-Q Treatments Start: 08/06/17 17:30 Freq: Status: Active Protocol: Document 03/20/18 13:45 DCW (Rec: 03/20/18 14:27 DCW [id number]) Cardio Equipment Upper Body Ergometer (UBE) Duration (Minutes) 5 RPM 60 Seat Position 12 Height 3 Therapeutic Exercises Supine Exercises Serratus Punch Supine Exercise Name Serratus anterior punch with wand Side bilateral Resistance 4# Equipment Used wand 1 Supine Exercise Name Supine on Towel roll at T10-12 Side bilateral Comments increase thoracolumbar extension Standing Exercises Rows Standing Exercise Name Rows Side bilateral Resistance Lv 2 Equipment Used T-band Shoulder Extension Standing Exercise Name Extension Side bilateral Resistance Lv 2 Equipment Used T-band Manual Therapy Treatment Soft Tissue Mobilization 3 Body Location Quadratus Lumborum Mobilization Type Myofascial Release Strumming Sustained Pressure Intensity/Depth Moderate Body Position Sidelying 2 Body Location Glute Med Mobilization Type Strumming Sustained Pressure Intensity/Depth Moderate Body Position Sidelying 1 Body Location Lumbar Erector Spinae Mobilization Type Myofascial Release Sustained Pressure Intensity/Depth Moderate Body Position Sidelying Joint Mobilizations 1 Joint Thoracic Spine Direction P->A Grade III Body Position Sidelying Manual Traction Lumbar Details Hip/Iliac crest depression Body Position Sidelying PT-OP-R Modalities Start: 08/06/17 17:30 Freq: Status: Active Protocol: Document 03/20/18 13:45 DCW (Rec: 03/20/18 14:27 DCW [id number]) Electric Stimulation Electric Stimulation Interferential Current (IFC) Body Location Lumbar Spine Duration (Minutes) 15 Intensity 48 Patient Position Sitting Combined With Heat/Cold Hot Pack PT-OP-T Assessment and Plan Start: 08/06/17 17:30 Freq: Status: Active Protocol: Document 03/20/18 13:45 DCW (Rec: 03/20/18 14:27 DCW [id number]) Physical Therapy Assessment Impairments Impairments Functional Mobility Pain Posture ROM Soft Tissue Mobility Strength Tone Goals Six Impairment Shoulder ROM Social Worker Palliative Care Goal (LTG) Right shoulder ROM = Left shoulder ROM LTG Duration 05/06/18 Five Impairment Pt unable to lift 1/2 gallon of milk out of refrigerator with right arm Short Term Goal (STG) Pt to lift 1/2 gallon of milk with right arm without increased pain. STG Duration 04/05/18 Four Impairment Palpable muscle tone Social Worker Palliative Care Goal (LTG) Pt muscle tone grossly to mild levels of tone LTG Duration 05/06/18 Three Impairment Thoracic Spine ROM Short Term Goal (STG) Thoracic spine to lacking 10 degrees from neutral at full extension STG Duration Met Shelter Goal (LTG) Thoracic spine to neutral at full extension LTG Duration 05/06/18 Two Impairment Pain Shelter Goal (LTG) Pt to report decreased pain to a max of 4/10 LTG Duration 05/06/18 One Impairment Activity tolerance Shelter Goal (LTG) Pt to tolerate gardening with no increased pain for three hours LTG Duration 05/07/18 Assessment Summary Assessment Pt's shoulders have been showing improved ROM and pain- control. Physical Therapy Plan Frequency and Duration Frequency of Treatment 1x/Week Duration of Treatment 12 weeks Plan of Care Start Date 03/05/18 Plan of Care End Date 05/28/18 Therapeutic Interventions Therapeutic Interventions Aquatic Therapy Home Exercise Program Joint Mobilizations Manual Therapy Neuromuscular Re-education Self-Care/Home Management Soft Tissue Mobilization Therapeutic Exercises Modalities Cold Pack/Ice Massage Electric Stimulation Hot Packs Next Visit Focus/Plan Next Note Type Treatment Note Next Visit Plan Manual therapy and TherEx to limit further Kyphosis, Shoulder strengthening and ROM
--- NOTE | 2018-03-28 15:57 | PT.OTN ---
Current Diagnoses Scoliosis, unspecified (03/28/18) Spondylosis without myelopathy or radiculopathy, cervical region (03/28/18) Other intervertebral disc degeneration, lumbosacral region (03/28/18) Pain in thoracic spine (03/28/18) Physical Therapy Treatment Note PT-OP-A Visit Information Start: 08/06/17 17:30 Freq: Status: Active Protocol: Document 03/28/18 15:15 DCW (Rec: 03/28/18 15:57 DCW [id number]) Out-Patient Physical Therapy Visit Information Visit Information Visit Type Treatment Note Visit Start Time 15:15 Visit Stop Time 16:10 Total Visit Minutes 55 Visit Number 38 Number of MANAGER RFID Visits 0 Evaluation Information Evaluation Date 05/28/17 PT-OP-B Current Condition Start: 10/04/17 14:21 Freq: Status: Active Protocol: Document 12/10/17 13:45 DCW (Rec: 12/10/17 13:56 DCW [id number]) Current Condition History of Current Condition History of Current Condition Please see patient's chart in Therapy Source for complete history and initial evaluation Current Functional Impairments (Reported) Functional Limitations- Recreation/ Pt unable to tolerate yard- Hobbies work more than 60 minutes without significant increased pain in her shoulders. PT-OP-C Subjective Start: 08/06/17 17:30 Freq: Status: Active Protocol: Document 03/28/18 15:15 DCW (Rec: 03/28/18 15:57 DCW [id number]) OP-PT Subjective Patient Comments Patient Comments Pt reports she is doing well today, but a little tired this late in the afternoon. PT-OP-F Manual Assessment Start: 10/04/17 14:21 Freq: Status: Active Protocol: Document 03/05/18 16:00 DCW (Rec: 03/05/18 16:15 DCW [id number]) Manual Assessments Soft Tissue Assessment Soft Tissue Mobility Assessment Moderate tone in Bilateral thoracic and lumbar paraspinals, piriformis, iliopsoas, and quadratus lumborum. Mild tone in bilateral hamstrings and adductor vinod PT-OP-J Posture/Palpation/Skin Start: 10/04/17 14:21 Freq: Status: Active Protocol: Document 03/05/18 16:00 DCW (Rec: 03/05/18 16:14 DCW [id number]) Posture Evaluation Position Standing Head/C-Spine Posture Forward Head T-Spine Posture Flexible Scoliosis on (L) Increased Kyphosis L-Spine Posture Flexible Scoliosis on (R) Pelvis Posture (L) Iliac Crest Superior Hip Posture (L) Flexed (R) Flexed PT-OP-K Range of Motion Start: 10/04/17 14:21 Freq: Status: Active Protocol: Document 03/05/18 16:00 DCW (Rec: 03/05/18 16:14 DCW [id number]) Lumbar Spine Range of Motion Lumbar Spine Active Degrees Testing Position Standing Comments Max extension, pt is forward flexed 3? at her thoracic spine Shoulder Goniometric Range of Motion Shoulder Measured in Degrees Left Active Shoulder ROM WFL No Testing Position Sitting Flexion 135 Abduction 134 External Rotation at 0 degrees Abduction 54 Right Active Shoulder ROM WFL No Testing Position Sitting Flexion 128 Abduction 118 External Rotation at 0 degrees Abduction 52 PT-OP-M Strength Start: 10/04/17 14:21 Freq: Status: Active Protocol: Document 03/05/18 16:00 DCW (Rec: 03/05/18 16:14 DCW [id number]) Shoulder Strength Shoulder Manual Muscle Testing Right Flexion 4 Good Abduction (C5) 4+ Good+ External Rotation 4 Good Internal Rotation 5 Normal Left Flexion 4+ Good+ Abduction (C5) 4+ Good+ External Rotation 4+ Good+ Internal Rotation 5 Normal PT-OP-Q Treatments Start: 08/06/17 17:30 Freq: Status: Active Protocol: Document 03/28/18 15:15 DCW (Rec: 03/28/18 15:57 DCW [id number]) Cardio Equipment Upper Body Ergometer (UBE) Duration (Minutes) 5 RPM 60 Seat Position 12 Height 3 Therapeutic Exercises Supine Exercises Serratus Punch Supine Exercise Name Serratus anterior punch with wand Side bilateral Resistance 5# Equipment Used wand Shoulder Flexion Supine Exercise Name Flex with wand Side bilateral Resistance 5# Equipment Used wand Comments Pain-free ROM 1 Supine Exercise Name Supine on Towel roll at T10-12 Side bilateral Comments increase thoracolumbar extension Standing Exercises Rows Standing Exercise Name Rows Side bilateral Resistance Lv 2 Equipment Used T-band Shoulder Extension Standing Exercise Name Extension Side bilateral Resistance Lv 2 Equipment Used T-band Manual Therapy Treatment Soft Tissue Mobilization 3 Body Location Quadratus Lumborum Mobilization Type Myofascial Release Strumming Sustained Pressure Intensity/Depth Moderate Body Position Sidelying 2 Body Location Glute Med Mobilization Type Strumming Sustained Pressure Intensity/Depth Moderate Body Position Sidelying 1 Body Location Lumbar Erector Spinae Mobilization Type Myofascial Release Sustained Pressure Intensity/Depth Moderate Body Position Sidelying Joint Mobilizations 1 Joint Thoracic Spine Direction P->A Grade III Body Position Sidelying Manual Traction Lumbar Details Hip/Iliac crest depression Body Position Sidelying PT-OP-R Modalities Start: 08/06/17 17:30 Freq: Status: Active Protocol: Document 03/28/18 15:15 DCW (Rec: 03/28/18 15:57 DCW [id number]) Electric Stimulation Electric Stimulation Interferential Current (IFC) Body Location Lumbar Spine Duration (Minutes) 15 Intensity 48 Patient Position Sitting Combined With Heat/Cold Hot Pack PT-OP-T Assessment and Plan Start: 08/06/17 17:30 Freq: Status: Active Protocol: Document 03/28/18 15:15 DCW (Rec: 03/28/18 15:57 DCW [id number]) Physical Therapy Assessment Impairments Impairments Functional Mobility Pain Posture ROM Soft Tissue Mobility Strength Tone Goals Six Impairment Shoulder ROM Crossing Tender Goal (LTG) Right shoulder ROM = Left shoulder ROM LTG Duration 05/06/18 Five Impairment Pt unable to lift 1/2 gallon of milk out of refrigerator with right arm Short Term Goal (STG) Pt to lift 1/2 gallon of milk with right arm without increased pain. STG Duration 04/05/18 Four Impairment Palpable muscle tone Senior Care Goal (LTG) Pt muscle tone grossly to mild levels of tone LTG Duration 05/06/18 Three Impairment Thoracic Spine ROM Short Term Goal (STG) Thoracic spine to lacking 10 degrees from neutral at full extension STG Duration Met Crossing Tender Goal (LTG) Thoracic spine to neutral at full extension LTG Duration 05/06/18 Two Impairment Pain Crossing Tender Goal (LTG) Pt to report decreased pain to a max of 4/10 LTG Duration 05/06/18 One Impairment Activity tolerance Senior Care Goal (LTG) Pt to tolerate gardening with no increased pain for three hours LTG Duration 05/07/18 Assessment Summary Assessment Pt experiencing less frequent rubbing of her ribs on her iliac crest, overall improved back pain. Physical Therapy Plan Frequency and Duration Frequency of Treatment 1x/Week Duration of Treatment 12 weeks Plan of Care Start Date 03/05/18 Plan of Care End Date 05/28/18 Therapeutic Interventions Therapeutic Interventions Aquatic Therapy Home Exercise Program Joint Mobilizations Manual Therapy Neuromuscular Re-education Self-Care/Home Management Soft Tissue Mobilization Therapeutic Exercises Modalities Cold Pack/Ice Massage Electric Stimulation Hot Packs Next Visit Focus/Plan Next Note Type Treatment Note Next Visit Plan Manual therapy and TherEx to limit further Kyphosis, Shoulder strengthening and ROM
--- NOTE | 2018-04-08 17:00 | PT.OTN ---
Current Diagnoses Scoliosis, unspecified (04/08/18) Spondylosis without myelopathy or radiculopathy, cervical region (04/08/18) Other intervertebral disc degeneration, lumbosacral region (04/08/18) Pain in thoracic spine (04/08/18) Physical Therapy Treatment Note PT-OP-A Visit Information Start: 08/06/17 17:30 Freq: Status: Active Protocol: Document 04/08/18 14:30 DCW (Rec: 04/08/18 17:00 DCW [id number]) Out-Patient Physical Therapy Visit Information Visit Information Visit Type Treatment Note Visit Start Time 14:30 Visit Stop Time 15:25 Total Visit Minutes 55 Visit Number 39 Number of LOSS PREVENTION SPECIALIST Visits 0 Evaluation Information Evaluation Date 05/28/17 PT-OP-B Current Condition Start: 10/04/17 14:21 Freq: Status: Active Protocol: Document 12/10/17 13:45 DCW (Rec: 12/10/17 13:56 DCW [id number]) Current Condition History of Current Condition History of Current Condition Please see patient's chart in Therapy Source for complete history and initial evaluation Current Functional Impairments (Reported) Functional Limitations- Recreation/ Pt unable to tolerate yard- Hobbies work more than 60 minutes without significant increased pain in her shoulders. PT-OP-C Subjective Start: 08/06/17 17:30 Freq: Status: Active Protocol: Document 04/08/18 14:30 DCW (Rec: 04/08/18 17:00 DCW [id number]) OP-PT Subjective Patient Comments Patient Comments Pt reports increased shoulder pain today, but she does not know the cause. PT-OP-F Manual Assessment Start: 10/04/17 14:21 Freq: Status: Active Protocol: Document 03/05/18 16:00 DCW (Rec: 03/05/18 16:15 DCW [id number]) Manual Assessments Soft Tissue Assessment Soft Tissue Mobility Assessment Moderate tone in Bilateral thoracic and lumbar paraspinals, piriformis, iliopsoas, and quadratus lumborum. Mild tone in bilateral hamstrings and adductor vinod PT-OP-J Posture/Palpation/Skin Start: 10/04/17 14:21 Freq: Status: Active Protocol: Document 03/05/18 16:00 DCW (Rec: 03/05/18 16:14 DCW [id number]) Posture Evaluation Position Standing Head/C-Spine Posture Forward Head T-Spine Posture Flexible Scoliosis on (L) Increased Kyphosis L-Spine Posture Flexible Scoliosis on (R) Pelvis Posture (L) Iliac Crest Superior Hip Posture (L) Flexed (R) Flexed PT-OP-K Range of Motion Start: 10/04/17 14:21 Freq: Status: Active Protocol: Document 03/05/18 16:00 DCW (Rec: 03/05/18 16:14 DCW [id number]) Lumbar Spine Range of Motion Lumbar Spine Active Degrees Testing Position Standing Comments Max extension, pt is forward flexed 3? at her thoracic spine Shoulder Goniometric Range of Motion Shoulder Measured in Degrees Left Active Shoulder ROM WFL No Testing Position Sitting Flexion 135 Abduction 134 External Rotation at 0 degrees Abduction 54 Right Active Shoulder ROM WFL No Testing Position Sitting Flexion 128 Abduction 118 External Rotation at 0 degrees Abduction 52 PT-OP-M Strength Start: 10/04/17 14:21 Freq: Status: Active Protocol: Document 03/05/18 16:00 DCW (Rec: 03/05/18 16:14 DCW [id number]) Shoulder Strength Shoulder Manual Muscle Testing Right Flexion 4 Good Abduction (C5) 4+ Good+ External Rotation 4 Good Internal Rotation 5 Normal Left Flexion 4+ Good+ Abduction (C5) 4+ Good+ External Rotation 4+ Good+ Internal Rotation 5 Normal PT-OP-Q Treatments Start: 08/06/17 17:30 Freq: Status: Active Protocol: Document 04/08/18 14:30 DCW (Rec: 04/08/18 17:00 DCW [id number]) Cardio Equipment Upper Body Ergometer (UBE) Duration (Minutes) 5 RPM 60 Seat Position 12 Height 3 Therapeutic Exercises Sitting Exercises PROM Abduction Sitting Exercise Name Pullies GH Abduction PROM Flexion Sitting Exercise Name Pullies GH flexion Side bilateral Standing Exercises Rows Standing Exercise Name Rows Side bilateral Resistance Lv 2 Equipment Used T-band Shoulder Extension Standing Exercise Name Extension Side bilateral Resistance Lv 2 Equipment Used T-band Manual Therapy Treatment Soft Tissue Mobilization 3 Body Location Quadratus Lumborum Mobilization Type Myofascial Release Strumming Sustained Pressure Intensity/Depth Moderate Body Position Sidelying 2 Body Location Glute Med Mobilization Type Strumming Sustained Pressure Intensity/Depth Moderate Body Position Sidelying 1 Body Location Lumbar Erector Spinae Mobilization Type Myofascial Release Sustained Pressure Intensity/Depth Moderate Body Position Sidelying Joint Mobilizations Glenohumeral Joint GH joint mobs Direction inferior Grade II Body Position Supine 1 Joint Thoracic Spine Direction P->A Grade III Body Position Sidelying Manual Traction Lumbar Details Hip/Iliac crest depression Body Position Sidelying PT-OP-R Modalities Start: 08/06/17 17:30 Freq: Status: Active Protocol: Document 04/08/18 14:30 DCW (Rec: 04/08/18 17:00 DCW [id number]) Electric Stimulation Electric Stimulation Interferential Current (IFC) Body Location Lumbar Spine Duration (Minutes) 15 Intensity 28 Patient Position Sitting Combined With Heat/Cold Hot Pack PT-OP-T Assessment and Plan Start: 08/06/17 17:30 Freq: Status: Active Protocol: Document 04/08/18 14:30 DCW (Rec: 04/08/18 17:00 DCW [id number]) Physical Therapy Assessment Impairments Impairments Functional Mobility Pain Posture ROM Soft Tissue Mobility Strength Tone Goals Six Impairment Shoulder ROM Alf Goal (LTG) Right shoulder ROM = Left shoulder ROM LTG Duration 05/06/18 Five Impairment Pt unable to lift 1/2 gallon of milk out of refrigerator with right arm Short Term Goal (STG) Pt to lift 1/2 gallon of milk with right arm without increased pain. STG Duration 04/05/18 Four Impairment Palpable muscle tone Funeral Pre Need Consultant Goal (LTG) Pt muscle tone grossly to mild levels of tone LTG Duration 05/06/18 Three Impairment Thoracic Spine ROM Short Term Goal (STG) Thoracic spine to lacking 10 degrees from neutral at full extension STG Duration Met Funeral Pre Need Consultant Goal (LTG) Thoracic spine to neutral at full extension LTG Duration 05/06/18 Two Impairment Pain Funeral Pre Need Consultant Goal (LTG) Pt to report decreased pain to a max of 4/10 LTG Duration 05/06/18 One Impairment Activity tolerance Funeral Pre Need Consultant Goal (LTG) Pt to tolerate gardening with no increased pain for three hours LTG Duration 05/07/18 Assessment Summary Assessment Pt noted decreased shoulder pain following treatment session today, PT requested that she continue to assess shoulder function over the next few days. Physical Therapy Plan Frequency and Duration Frequency of Treatment 1x/Week Duration of Treatment 12 weeks Plan of Care Start Date 03/05/18 Plan of Care End Date 05/28/18 Therapeutic Interventions Therapeutic Interventions Aquatic Therapy Home Exercise Program Joint Mobilizations Manual Therapy Neuromuscular Re-education Self-Care/Home Management Soft Tissue Mobilization Therapeutic Exercises Modalities Cold Pack/Ice Massage Electric Stimulation Hot Packs Next Visit Focus/Plan Next Note Type Treatment Note Next Visit Plan Manual therapy and TherEx to limit further Kyphosis, Shoulder strengthening and ROM
--- NOTE | 2018-04-15 15:15 | PT.OTN ---
Current Diagnoses Scoliosis, unspecified (04/15/18) Spondylosis without myelopathy or radiculopathy, cervical region (04/15/18) Other intervertebral disc degeneration, lumbosacral region (04/15/18) Pain in thoracic spine (04/15/18) Physical Therapy Treatment Note PT-OP-A Visit Information Start: 08/06/17 17:30 Freq: Status: Active Protocol: Document 04/15/18 14:30 DCW (Rec: 04/15/18 15:15 DCW [id number]) Out-Patient Physical Therapy Visit Information Visit Information Visit Type Treatment Note Visit Start Time 14:30 Visit Stop Time 15:25 Total Visit Minutes 55 Visit Number 40 Number of FUNERAL HOME GENERAL MANAGER Visits 0 Evaluation Information Evaluation Date 05/28/17 PT-OP-B Current Condition Start: 10/04/17 14:21 Freq: Status: Active Protocol: Document 12/10/17 13:45 DCW (Rec: 12/10/17 13:56 DCW [id number]) Current Condition History of Current Condition History of Current Condition Please see patient's chart in Therapy Source for complete history and initial evaluation Current Functional Impairments (Reported) Functional Limitations- Recreation/ Pt unable to tolerate yard- Hobbies work more than 60 minutes without significant increased pain in her shoulders. PT-OP-C Subjective Start: 08/06/17 17:30 Freq: Status: Active Protocol: Document 04/15/18 14:30 DCW (Rec: 04/15/18 15:15 DCW [id number]) OP-PT Subjective Patient Comments Patient Comments Pt reports she spent about 3. 5 hours working out in her yard on Sunday, and I expected my back to kill me, but it didn't!. It was a little sore, but not too bad. PT-OP-F Manual Assessment Start: 10/04/17 14:21 Freq: Status: Active Protocol: Document 03/05/18 16:00 DCW (Rec: 03/05/18 16:15 DCW [id number]) Manual Assessments Soft Tissue Assessment Soft Tissue Mobility Assessment Moderate tone in Bilateral thoracic and lumbar paraspinals, piriformis, iliopsoas, and quadratus lumborum. Mild tone in bilateral hamstrings and adductor vinod PT-OP-J Posture/Palpation/Skin Start: 10/04/17 14:21 Freq: Status: Active Protocol: Document 03/05/18 16:00 DCW (Rec: 03/05/18 16:14 DCW [id number]) Posture Evaluation Position Standing Head/C-Spine Posture Forward Head T-Spine Posture Flexible Scoliosis on (L) Increased Kyphosis L-Spine Posture Flexible Scoliosis on (R) Pelvis Posture (L) Iliac Crest Superior Hip Posture (L) Flexed (R) Flexed PT-OP-K Range of Motion Start: 10/04/17 14:21 Freq: Status: Active Protocol: Document 03/05/18 16:00 DCW (Rec: 03/05/18 16:14 DCW [id number]) Lumbar Spine Range of Motion Lumbar Spine Active Degrees Testing Position Standing Comments Max extension, pt is forward flexed 3? at her thoracic spine Shoulder Goniometric Range of Motion Shoulder Measured in Degrees Left Active Shoulder ROM WFL No Testing Position Sitting Flexion 135 Abduction 134 External Rotation at 0 degrees Abduction 54 Right Active Shoulder ROM WFL No Testing Position Sitting Flexion 128 Abduction 118 External Rotation at 0 degrees Abduction 52 PT-OP-M Strength Start: 10/04/17 14:21 Freq: Status: Active Protocol: Document 03/05/18 16:00 DCW (Rec: 03/05/18 16:14 DCW [id number]) Shoulder Strength Shoulder Manual Muscle Testing Right Flexion 4 Good Abduction (C5) 4+ Good+ External Rotation 4 Good Internal Rotation 5 Normal Left Flexion 4+ Good+ Abduction (C5) 4+ Good+ External Rotation 4+ Good+ Internal Rotation 5 Normal PT-OP-Q Treatments Start: 08/06/17 17:30 Freq: Status: Active Protocol: Document 04/15/18 14:30 DCW (Rec: 04/15/18 15:15 DCW [id number]) Cardio Equipment Upper Body Ergometer (UBE) Duration (Minutes) 5 RPM 60 Seat Position 11 Height 3 Therapeutic Exercises Sitting Exercises PROM Abduction Sitting Exercise Name Pullies GH Abduction PROM Flexion Sitting Exercise Name Pullies GH flexion Side bilateral Standing Exercises Rows Standing Exercise Name Rows Side bilateral Resistance Lv 2 Equipment Used T-band Shoulder Extension Standing Exercise Name Extension Side bilateral Resistance Lv 2 Equipment Used T-band Manual Therapy Treatment Soft Tissue Mobilization 3 Body Location Quadratus Lumborum Mobilization Type Myofascial Release Strumming Sustained Pressure Intensity/Depth Moderate Body Position Sidelying 2 Body Location Glute Med Mobilization Type Strumming Sustained Pressure Intensity/Depth Moderate Body Position Sidelying 1 Body Location Lumbar Erector Spinae Mobilization Type Myofascial Release Sustained Pressure Intensity/Depth Moderate Body Position Sidelying Joint Mobilizations Glenohumeral Joint GH joint mobs Direction inferior Grade II Body Position Supine 1 Joint Thoracic Spine Direction P->A Grade III Body Position Sidelying Manual Traction Lumbar Details Hip/Iliac crest depression Body Position Sidelying PT-OP-R Modalities Start: 08/06/17 17:30 Freq: Status: Active Protocol: Document 04/15/18 14:30 DCW (Rec: 04/15/18 15:15 DCW [id number]) Electric Stimulation Electric Stimulation Interferential Current (IFC) Body Location Lumbar Spine Duration (Minutes) 15 Intensity 28 Patient Position Sitting Combined With Heat/Cold Hot Pack PT-OP-T Assessment and Plan Start: 08/06/17 17:30 Freq: Status: Active Protocol: Document 04/15/18 14:30 DCW (Rec: 04/15/18 15:15 DCW [id number]) Physical Therapy Assessment Impairments Impairments Functional Mobility Pain Posture ROM Soft Tissue Mobility Strength Tone Goals Six Impairment Shoulder ROM Retirement Goal (LTG) Right shoulder ROM = Left shoulder ROM LTG Duration 05/06/18 Five Impairment Pt unable to lift 1/2 gallon of milk out of refrigerator with right arm Short Term Goal (STG) Pt to lift 1/2 gallon of milk with right arm without increased pain. STG Duration 04/05/18 Four Impairment Palpable muscle tone Air Defense Control Officer Goal (LTG) Pt muscle tone grossly to mild levels of tone LTG Duration 05/06/18 Three Impairment Thoracic Spine ROM Short Term Goal (STG) Thoracic spine to lacking 10 degrees from neutral at full extension STG Duration Met Air Defense Control Officer Goal (LTG) Thoracic spine to neutral at full extension LTG Duration 05/06/18 Two Impairment Pain Air Defense Control Officer Goal (LTG) Pt to report decreased pain to a max of 4/10 LTG Duration 05/06/18 One Impairment Activity tolerance Air Defense Control Officer Goal (LTG) Pt to tolerate gardening with no increased pain for three hours LTG Duration 05/07/18 Assessment Summary Assessment Pt again noted shoulder pain worse than back pain, and so therapy focused more on shoulder mobility and manual therapy than prior visits. Pt noted improvement following therapy session. Physical Therapy Plan Frequency and Duration Frequency of Treatment 1x/Week Duration of Treatment 12 weeks Plan of Care Start Date 03/05/18 Plan of Care End Date 05/28/18 Therapeutic Interventions Therapeutic Interventions Aquatic Therapy Home Exercise Program Joint Mobilizations Manual Therapy Neuromuscular Re-education Self-Care/Home Management Soft Tissue Mobilization Therapeutic Exercises Modalities Cold Pack/Ice Massage Electric Stimulation Hot Packs Next Visit Focus/Plan Next Note Type Treatment Note Next Visit Plan Manual therapy and TherEx to limit further Kyphosis, Shoulder strengthening and ROM
--- NOTE | 2018-04-22 15:13 | PT.OTN ---
Current Diagnoses Scoliosis, unspecified (04/22/18) Spondylosis without myelopathy or radiculopathy, cervical region (04/22/18) Other intervertebral disc degeneration, lumbosacral region (04/22/18) Pain in thoracic spine (04/22/18) Physical Therapy Treatment Note PT-OP-A Visit Information Start: 08/06/17 17:30 Freq: Status: Active Protocol: Document 04/22/18 14:30 DCW (Rec: 04/22/18 15:13 DCW [id number]) Out-Patient Physical Therapy Visit Information Visit Information Visit Type Treatment Note Visit Start Time 14:30 Visit Stop Time 15:25 Total Visit Minutes 55 Visit Number 41 Number of REFUSE LABORER Visits 0 Evaluation Information Evaluation Date 05/28/17 PT-OP-B Current Condition Start: 10/04/17 14:21 Freq: Status: Active Protocol: Document 12/10/17 13:45 DCW (Rec: 12/10/17 13:56 DCW [id number]) Current Condition History of Current Condition History of Current Condition Please see patient's chart in Therapy Source for complete history and initial evaluation Current Functional Impairments (Reported) Functional Limitations- Recreation/ Pt unable to tolerate yard- Hobbies work more than 60 minutes without significant increased pain in her shoulders. PT-OP-C Subjective Start: 08/06/17 17:30 Freq: Status: Active Protocol: Document 04/22/18 14:30 DCW (Rec: 04/22/18 15:13 DCW [id number]) OP-PT Subjective Patient Comments Patient Comments My shoulders feel good today, but my back is bothering me today. PT-OP-F Manual Assessment Start: 10/04/17 14:21 Freq: Status: Active Protocol: Document 03/05/18 16:00 DCW (Rec: 03/05/18 16:15 DCW [id number]) Manual Assessments Soft Tissue Assessment Soft Tissue Mobility Assessment Moderate tone in Bilateral thoracic and lumbar paraspinals, piriformis, iliopsoas, and quadratus lumborum. Mild tone in bilateral hamstrings and adductor vinod PT-OP-J Posture/Palpation/Skin Start: 10/04/17 14:21 Freq: Status: Active Protocol: Document 03/05/18 16:00 DCW (Rec: 03/05/18 16:14 DCW [id number]) Posture Evaluation Position Standing Head/C-Spine Posture Forward Head T-Spine Posture Flexible Scoliosis on (L) Increased Kyphosis L-Spine Posture Flexible Scoliosis on (R) Pelvis Posture (L) Iliac Crest Superior Hip Posture (L) Flexed (R) Flexed PT-OP-K Range of Motion Start: 10/04/17 14:21 Freq: Status: Active Protocol: Document 03/05/18 16:00 DCW (Rec: 03/05/18 16:14 DCW [id number]) Lumbar Spine Range of Motion Lumbar Spine Active Degrees Testing Position Standing Comments Max extension, pt is forward flexed 3? at her thoracic spine Shoulder Goniometric Range of Motion Shoulder Measured in Degrees Left Active Shoulder ROM WFL No Testing Position Sitting Flexion 135 Abduction 134 External Rotation at 0 degrees Abduction 54 Right Active Shoulder ROM WFL No Testing Position Sitting Flexion 128 Abduction 118 External Rotation at 0 degrees Abduction 52 PT-OP-M Strength Start: 10/04/17 14:21 Freq: Status: Active Protocol: Document 03/05/18 16:00 DCW (Rec: 03/05/18 16:14 DCW [id number]) Shoulder Strength Shoulder Manual Muscle Testing Right Flexion 4 Good Abduction (C5) 4+ Good+ External Rotation 4 Good Internal Rotation 5 Normal Left Flexion 4+ Good+ Abduction (C5) 4+ Good+ External Rotation 4+ Good+ Internal Rotation 5 Normal PT-OP-Q Treatments Start: 08/06/17 17:30 Freq: Status: Active Protocol: Document 04/22/18 14:30 DCW (Rec: 04/22/18 15:13 DCW [id number]) Cardio Equipment Upper Body Ergometer (UBE) Duration (Minutes) 5 RPM 60 Seat Position 11 Height 3 Therapeutic Exercises Supine Exercises Serratus Punch Supine Exercise Name Serratus anterior punch with wand Side bilateral Resistance 5# Equipment Used wand Shoulder Flexion Supine Exercise Name Flex with wand Side bilateral Resistance 5# Equipment Used wand Comments Pain-free ROM 1 Supine Exercise Name Supine on Towel roll at T10-12 Side bilateral Comments increase thoracolumbar extension Manual Therapy Treatment Soft Tissue Mobilization 3 Body Location Quadratus Lumborum Mobilization Type Myofascial Release Strumming Sustained Pressure Intensity/Depth Moderate Body Position Sidelying 2 Body Location Glute Med Mobilization Type Strumming Sustained Pressure Intensity/Depth Moderate Body Position Sidelying 1 Body Location Lumbar Erector Spinae Mobilization Type Myofascial Release Sustained Pressure Intensity/Depth Moderate Body Position Sidelying Joint Mobilizations Glenohumeral Joint GH joint mobs Direction inferior Grade II Body Position Supine 1 Joint Thoracic Spine Direction P->A Grade III Body Position Sidelying Manual Traction Lumbar Details Hip/Iliac crest depression Body Position Sidelying PT-OP-R Modalities Start: 08/06/17 17:30 Freq: Status: Active Protocol: Document 04/22/18 14:30 DCW (Rec: 04/22/18 15:13 DCW [id number]) Electric Stimulation Electric Stimulation Interferential Current (IFC) Body Location Lumbar Spine Duration (Minutes) 15 Intensity 30 Patient Position Sitting Combined With Heat/Cold Hot Pack PT-OP-T Assessment and Plan Start: 08/06/17 17:30 Freq: Status: Active Protocol: Document 04/22/18 14:30 DCW (Rec: 04/22/18 15:13 DCW [id number]) Physical Therapy Assessment Impairments Impairments Functional Mobility Pain Posture ROM Soft Tissue Mobility Strength Tone Goals Six Impairment Shoulder ROM Package Reinspector Goal (LTG) Right shoulder ROM = Left shoulder ROM LTG Duration 05/06/18 Five Impairment Pt unable to lift 1/2 gallon of milk out of refrigerator with right arm Short Term Goal (STG) Pt to lift 1/2 gallon of milk with right arm without increased pain. STG Duration 04/05/18 Four Impairment Palpable muscle tone Mcc Goal (LTG) Pt muscle tone grossly to mild levels of tone LTG Duration 05/06/18 Three Impairment Thoracic Spine ROM Short Term Goal (STG) Thoracic spine to lacking 10 degrees from neutral at full extension STG Duration Met Mcc Goal (LTG) Thoracic spine to neutral at full extension LTG Duration 05/06/18 Two Impairment Pain Mcc Goal (LTG) Pt to report decreased pain to a max of 4/10 LTG Duration 05/06/18 One Impairment Activity tolerance Mcc Goal (LTG) Pt to tolerate gardening with no increased pain for three hours LTG Duration 05/07/18 Assessment Summary Assessment Pt tolerated treatment well today, no complaints of shoulder pain. Physical Therapy Plan Frequency and Duration Frequency of Treatment 1x/Week Duration of Treatment 12 weeks Plan of Care Start Date 03/05/18 Plan of Care End Date 05/28/18 Therapeutic Interventions Therapeutic Interventions Aquatic Therapy Home Exercise Program Joint Mobilizations Manual Therapy Neuromuscular Re-education Self-Care/Home Management Soft Tissue Mobilization Therapeutic Exercises Modalities Cold Pack/Ice Massage Electric Stimulation Hot Packs Next Visit Focus/Plan Next Note Type Treatment Note Next Visit Plan Manual therapy and TherEx to limit further Kyphosis, Shoulder strengthening and ROM
--- NOTE | 2018-04-29 15:14 | PT.OTN ---
Current Diagnoses Scoliosis, unspecified (04/29/18) Spondylosis without myelopathy or radiculopathy, cervical region (04/29/18) Other intervertebral disc degeneration, lumbosacral region (04/29/18) Pain in thoracic spine (04/29/18) Physical Therapy Treatment Note PT-OP-A Visit Information Start: 08/06/17 17:30 Freq: Status: Active Protocol: Document 04/29/18 14:30 DCW (Rec: 04/29/18 15:14 DCW [id number]) Out-Patient Physical Therapy Visit Information Visit Information Visit Type Treatment Note Visit Start Time 14:30 Visit Stop Time 15:25 Total Visit Minutes 55 Visit Number 42 Number of HAIR CUTTER Visits 0 Evaluation Information Evaluation Date 05/28/17 PT-OP-B Current Condition Start: 10/04/17 14:21 Freq: Status: Active Protocol: Document 12/10/17 13:45 DCW (Rec: 12/10/17 13:56 DCW [id number]) Current Condition History of Current Condition History of Current Condition Please see patient's chart in Therapy Source for complete history and initial evaluation Current Functional Impairments (Reported) Functional Limitations- Recreation/ Pt unable to tolerate yard- Hobbies work more than 60 minutes without significant increased pain in her shoulders. PT-OP-C Subjective Start: 08/06/17 17:30 Freq: Status: Active Protocol: Document 04/29/18 14:30 DCW (Rec: 04/29/18 15:14 DCW [id number]) OP-PT Subjective Patient Comments Patient Comments My back has had it today. Pt does admit to spending three hours each Sunday and Sunday working out in her yard. PT-OP-F Manual Assessment Start: 10/04/17 14:21 Freq: Status: Active Protocol: Document 03/05/18 16:00 DCW (Rec: 03/05/18 16:15 DCW [id number]) Manual Assessments Soft Tissue Assessment Soft Tissue Mobility Assessment Moderate tone in Bilateral thoracic and lumbar paraspinals, piriformis, iliopsoas, and quadratus lumborum. Mild tone in bilateral hamstrings and adductor vinod PT-OP-J Posture/Palpation/Skin Start: 10/04/17 14:21 Freq: Status: Active Protocol: Document 03/05/18 16:00 DCW (Rec: 03/05/18 16:14 DCW [id number]) Posture Evaluation Position Standing Head/C-Spine Posture Forward Head T-Spine Posture Flexible Scoliosis on (L) Increased Kyphosis L-Spine Posture Flexible Scoliosis on (R) Pelvis Posture (L) Iliac Crest Superior Hip Posture (L) Flexed (R) Flexed PT-OP-K Range of Motion Start: 10/04/17 14:21 Freq: Status: Active Protocol: Document 03/05/18 16:00 DCW (Rec: 03/05/18 16:14 DCW [id number]) Lumbar Spine Range of Motion Lumbar Spine Active Degrees Testing Position Standing Comments Max extension, pt is forward flexed 3? at her thoracic spine Shoulder Goniometric Range of Motion Shoulder Measured in Degrees Left Active Shoulder ROM WFL No Testing Position Sitting Flexion 135 Abduction 134 External Rotation at 0 degrees Abduction 54 Right Active Shoulder ROM WFL No Testing Position Sitting Flexion 128 Abduction 118 External Rotation at 0 degrees Abduction 52 PT-OP-M Strength Start: 10/04/17 14:21 Freq: Status: Active Protocol: Document 03/05/18 16:00 DCW (Rec: 03/05/18 16:14 DCW [id number]) Shoulder Strength Shoulder Manual Muscle Testing Right Flexion 4 Good Abduction (C5) 4+ Good+ External Rotation 4 Good Internal Rotation 5 Normal Left Flexion 4+ Good+ Abduction (C5) 4+ Good+ External Rotation 4+ Good+ Internal Rotation 5 Normal PT-OP-Q Treatments Start: 08/06/17 17:30 Freq: Status: Active Protocol: Document 04/29/18 14:30 DCW (Rec: 04/29/18 15:14 DCW [id number]) Cardio Equipment Upper Body Ergometer (UBE) Duration (Minutes) 5 RPM 60 Seat Position 11 Height 3 Therapeutic Exercises Supine Exercises 1 Supine Exercise Name Supine on Towel roll at T10-12 Side bilateral Comments increase thoracolumbar extension Manual Therapy Treatment Soft Tissue Mobilization 3 Body Location Quadratus Lumborum Mobilization Type Myofascial Release Strumming Sustained Pressure Intensity/Depth Moderate Body Position Sidelying 2 Body Location Glute Med Mobilization Type Strumming Sustained Pressure Intensity/Depth Moderate Body Position Sidelying 1 Body Location Lumbar Erector Spinae Mobilization Type Myofascial Release Sustained Pressure Intensity/Depth Moderate Body Position Sidelying Joint Mobilizations 1 Joint Thoracic Spine Direction P->A Grade III Body Position Sidelying Manual Traction Lumbar Details Hip/Iliac crest depression Body Position Sidelying PT-OP-R Modalities Start: 08/06/17 17:30 Freq: Status: Active Protocol: Document 04/29/18 14:30 DCW (Rec: 04/29/18 15:14 DCW [id number]) Electric Stimulation Electric Stimulation Interferential Current (IFC) Body Location Lumbar Spine Duration (Minutes) 15 Intensity 30 Patient Position Sitting Combined With Heat/Cold Hot Pack PT-OP-T Assessment and Plan Start: 08/06/17 17:30 Freq: Status: Active Protocol: Document 04/29/18 14:30 DCW (Rec: 04/29/18 15:14 DCW [id number]) Physical Therapy Assessment Impairments Impairments Functional Mobility Pain Posture ROM Soft Tissue Mobility Strength Tone Goals Six Impairment Shoulder ROM [facility] Goal (LTG) Right shoulder ROM = Left shoulder ROM LTG Duration 05/06/18 Five Impairment Pt unable to lift 1/2 gallon of milk out of refrigerator with right arm Short Term Goal (STG) Pt to lift 1/2 gallon of milk with right arm without increased pain. STG Duration 04/05/18 Four Impairment Palpable muscle tone Photographic Lithographer Goal (LTG) Pt muscle tone grossly to mild levels of tone LTG Duration 05/06/18 Three Impairment Thoracic Spine ROM Short Term Goal (STG) Thoracic spine to lacking 10 degrees from neutral at full extension STG Duration Met [facility] Goal (LTG) Thoracic spine to neutral at full extension LTG Duration 05/06/18 Two Impairment Pain Photographic Lithographer Goal (LTG) Pt to report decreased pain to a max of 4/10 LTG Duration 05/06/18 One Impairment Activity tolerance [facility] Goal (LTG) Pt to tolerate gardening with no increased pain for three hours LTG Duration 05/07/18 Assessment Summary Assessment Notably increased tone throughout low back and piriformis today after a long weekend of outdoor working. Physical Therapy Plan Frequency and Duration Frequency of Treatment 1x/Week Duration of Treatment 12 weeks Plan of Care Start Date 03/05/18 Plan of Care End Date 05/28/18 Therapeutic Interventions Therapeutic Interventions Aquatic Therapy Home Exercise Program Joint Mobilizations Manual Therapy Neuromuscular Re-education Self-Care/Home Management Soft Tissue Mobilization Therapeutic Exercises Modalities Cold Pack/Ice Massage Electric Stimulation Hot Packs Next Visit Focus/Plan Next Note Type Treatment Note Next Visit Plan Manual therapy and TherEx to limit further Kyphosis, Shoulder strengthening and ROM
--- NOTE | 2018-05-06 15:16 | PT.OTN ---
Current Diagnoses Scoliosis, unspecified (05/06/18) Spondylosis without myelopathy or radiculopathy, cervical region (05/06/18) Other intervertebral disc degeneration, lumbosacral region (05/06/18) Pain in thoracic spine (05/06/18) Physical Therapy Treatment Note PT-OP-A Visit Information Start: 08/06/17 17:30 Freq: Status: Active Protocol: Document 05/06/18 14:30 DCW (Rec: 05/06/18 15:14 DCW [id number]) Out-Patient Physical Therapy Visit Information Visit Information Visit Type Treatment Note Visit Start Time 14:30 Visit Stop Time 15:25 Total Visit Minutes 55 Visit Number 43 Number of CUSHION SPRING ASSEMBLER Visits 0 Evaluation Information Evaluation Date 05/28/17 PT-OP-B Current Condition Start: 10/04/17 14:21 Freq: Status: Active Protocol: Document 12/10/17 13:45 DCW (Rec: 12/10/17 13:56 DCW [id number]) Current Condition History of Current Condition History of Current Condition Please see patient's chart in Therapy Source for complete history and initial evaluation Current Functional Impairments (Reported) Functional Limitations- Recreation/ Pt unable to tolerate yard- Hobbies work more than 60 minutes without significant increased pain in her shoulders. PT-OP-C Subjective Start: 08/06/17 17:30 Freq: Status: Active Protocol: Document 05/06/18 14:30 DCW (Rec: 05/06/18 15:14 DCW [id number]) OP-PT Subjective Patient Comments Patient Comments Pt reports she is doing well today, no complaints, and due to the snow, did not do quite as much work as normal. PT-OP-F Manual Assessment Start: 10/04/17 14:21 Freq: Status: Active Protocol: Document 03/05/18 16:00 DCW (Rec: 03/05/18 16:15 DCW [id number]) Manual Assessments Soft Tissue Assessment Soft Tissue Mobility Assessment Moderate tone in Bilateral thoracic and lumbar paraspinals, piriformis, iliopsoas, and quadratus lumborum. Mild tone in bilateral hamstrings and adductor vinod PT-OP-J Posture/Palpation/Skin Start: 10/04/17 14:21 Freq: Status: Active Protocol: Document 03/05/18 16:00 DCW (Rec: 03/05/18 16:14 DCW [id number]) Posture Evaluation Position Standing Head/C-Spine Posture Forward Head T-Spine Posture Flexible Scoliosis on (L) Increased Kyphosis L-Spine Posture Flexible Scoliosis on (R) Pelvis Posture (L) Iliac Crest Superior Hip Posture (L) Flexed (R) Flexed PT-OP-K Range of Motion Start: 10/04/17 14:21 Freq: Status: Active Protocol: Document 03/05/18 16:00 DCW (Rec: 03/05/18 16:14 DCW [id number]) Lumbar Spine Range of Motion Lumbar Spine Active Degrees Testing Position Standing Comments Max extension, pt is forward flexed 3? at her thoracic spine Shoulder Goniometric Range of Motion Shoulder Measured in Degrees Left Active Shoulder ROM WFL No Testing Position Sitting Flexion 135 Abduction 134 External Rotation at 0 degrees Abduction 54 Right Active Shoulder ROM WFL No Testing Position Sitting Flexion 128 Abduction 118 External Rotation at 0 degrees Abduction 52 PT-OP-M Strength Start: 10/04/17 14:21 Freq: Status: Active Protocol: Document 03/05/18 16:00 DCW (Rec: 03/05/18 16:14 DCW [id number]) Shoulder Strength Shoulder Manual Muscle Testing Right Flexion 4 Good Abduction (C5) 4+ Good+ External Rotation 4 Good Internal Rotation 5 Normal Left Flexion 4+ Good+ Abduction (C5) 4+ Good+ External Rotation 4+ Good+ Internal Rotation 5 Normal PT-OP-Q Treatments Start: 08/06/17 17:30 Freq: Status: Active Protocol: Document 05/06/18 14:30 DCW (Rec: 05/06/18 15:14 DCW [id number]) Cardio Equipment Upper Body Ergometer (UBE) Duration (Minutes) 5 RPM 60 Seat Position 11 Height 3 Therapeutic Exercises Supine Exercises Shoulder Flexion Supine Exercise Name Flex with wand Side bilateral Resistance 5# Equipment Used wand Comments Pain-free ROM 1 Supine Exercise Name Supine on Towel roll at T10-12 Side bilateral Comments increase thoracolumbar extension Sitting Exercises PROM Abduction Sitting Exercise Name Pullies GH Abduction PROM Flexion Sitting Exercise Name Pullies GH flexion Side bilateral Standing Exercises Shoulder Extension Standing Exercise Name Extension Side bilateral Resistance Lv 2 Equipment Used T-band Manual Therapy Treatment Soft Tissue Mobilization 3 Body Location Quadratus Lumborum Mobilization Type Myofascial Release Strumming Sustained Pressure Intensity/Depth Moderate Body Position Sidelying 2 Body Location Glute Med Mobilization Type Strumming Sustained Pressure Intensity/Depth Moderate Body Position Sidelying 1 Body Location Lumbar Erector Spinae Mobilization Type Myofascial Release Sustained Pressure Intensity/Depth Moderate Body Position Sidelying Joint Mobilizations 1 Joint Thoracic Spine Direction P->A Grade III Body Position Sidelying Manual Traction Lumbar Details Hip/Iliac crest depression Body Position Sidelying PT-OP-R Modalities Start: 08/06/17 17:30 Freq: Status: Active Protocol: Document 05/06/18 14:30 DCW (Rec: 05/06/18 15:14 DCW [id number]) Electric Stimulation Electric Stimulation Interferential Current (IFC) Body Location Lumbar Spine Duration (Minutes) 15 Intensity 30 Patient Position Sitting Combined With Heat/Cold Hot Pack PT-OP-T Assessment and Plan Start: 08/06/17 17:30 Freq: Status: Active Protocol: Document 05/06/18 14:30 DCW (Rec: 05/06/18 15:14 DCW [id number]) Physical Therapy Assessment Impairments Impairments Functional Mobility Pain Posture ROM Soft Tissue Mobility Strength Tone Goals Six Impairment Shoulder ROM Half-Way Goal (LTG) Right shoulder ROM = Left shoulder ROM LTG Duration 05/06/18 Five Impairment Pt unable to lift 1/2 gallon of milk out of refrigerator with right arm Short Term Goal (STG) Pt to lift 1/2 gallon of milk with right arm without increased pain. STG Duration 04/05/18 Four Impairment Palpable muscle tone Half-Way Goal (LTG) Pt muscle tone grossly to mild levels of tone LTG Duration 05/06/18 Three Impairment Thoracic Spine ROM Short Term Goal (STG) Thoracic spine to lacking 10 degrees from neutral at full extension STG Duration Met Library Paraprofessional Goal (LTG) Thoracic spine to neutral at full extension LTG Duration 05/06/18 Two Impairment Pain Library Paraprofessional Goal (LTG) Pt to report decreased pain to a max of 4/10 LTG Duration 05/06/18 One Impairment Activity tolerance Half-Way Goal (LTG) Pt to tolerate gardening with no increased pain for three hours LTG Duration 05/07/18 Assessment Summary Assessment Pt presenting with less paraspinal tone compared to last week, reporting less pain . Physical Therapy Plan Frequency and Duration Frequency of Treatment 1x/Week Duration of Treatment 12 weeks Plan of Care Start Date 12/04/18 Plan of Care End Date 05/28/18 Therapeutic Interventions Therapeutic Interventions Aquatic Therapy Home Exercise Program Joint Mobilizations Manual Therapy Neuromuscular Re-education Self-Care/Home Management Soft Tissue Mobilization Therapeutic Exercises Modalities Cold Pack/Ice Massage Electric Stimulation Hot Packs Next Visit Focus/Plan Next Note Type Treatment Note Next Visit Plan Manual therapy and TherEx to limit further Kyphosis, Shoulder strengthening and ROM
--- NOTE | 2018-05-13 15:02 | PT.OTN ---
Current Diagnoses Scoliosis, unspecified (05/13/18) Spondylosis without myelopathy or radiculopathy, cervical region (05/13/18) Other intervertebral disc degeneration, lumbosacral region (05/13/18) Pain in thoracic spine (05/13/18) Physical Therapy Treatment Note PT-OP-A Visit Information Start: 08/06/17 17:30 Freq: Status: Active Protocol: Document 05/13/18 14:20 DCW (Rec: 05/13/18 15:02 DCW [id number]) Out-Patient Physical Therapy Visit Information Visit Information Visit Type Treatment Note Visit Start Time 14:20 Visit Stop Time 15:00 Total Visit Minutes 40 Visit Number 44 Number of PROFESSOR OF ENVIRONMENTAL SCIENCE Visits 0 Evaluation Information Evaluation Date 05/28/17 PT-OP-B Current Condition Start: 10/04/17 14:21 Freq: Status: Active Protocol: Document 12/10/17 13:45 DCW (Rec: 12/10/17 13:56 DCW [id number]) Current Condition History of Current Condition History of Current Condition Please see patient's chart in Therapy Source for complete history and initial evaluation Current Functional Impairments (Reported) Functional Limitations- Recreation/ Pt unable to tolerate yard- Hobbies work more than 60 minutes without significant increased pain in her shoulders. PT-OP-C Subjective Start: 08/06/17 17:30 Freq: Status: Active Protocol: Document 05/13/18 14:20 DCW (Rec: 05/13/18 15:02 DCW [id number]) OP-PT Subjective Patient Comments Patient Comments Pt reports some increased hip pain today, but other than that, I'm doing pretty good. PT-OP-F Manual Assessment Start: 10/04/17 14:21 Freq: Status: Active Protocol: Document 03/05/18 16:00 DCW (Rec: 03/05/18 16:15 DCW [id number]) Manual Assessments Soft Tissue Assessment Soft Tissue Mobility Assessment Moderate tone in Bilateral thoracic and lumbar paraspinals, piriformis, iliopsoas, and quadratus lumborum. Mild tone in bilateral hamstrings and adductor vinod PT-OP-J Posture/Palpation/Skin Start: 10/04/17 14:21 Freq: Status: Active Protocol: Document 03/05/18 16:00 DCW (Rec: 03/05/18 16:14 DCW [id number]) Posture Evaluation Position Standing Head/C-Spine Posture Forward Head T-Spine Posture Flexible Scoliosis on (L) Increased Kyphosis L-Spine Posture Flexible Scoliosis on (R) Pelvis Posture (L) Iliac Crest Superior Hip Posture (L) Flexed (R) Flexed PT-OP-K Range of Motion Start: 10/04/17 14:21 Freq: Status: Active Protocol: Document 03/05/18 16:00 DCW (Rec: 03/05/18 16:14 DCW [id number]) Lumbar Spine Range of Motion Lumbar Spine Active Degrees Testing Position Standing Comments Max extension, pt is forward flexed 3? at her thoracic spine Shoulder Goniometric Range of Motion Shoulder Measured in Degrees Left Active Shoulder ROM WFL No Testing Position Sitting Flexion 135 Abduction 134 External Rotation at 0 degrees Abduction 54 Right Active Shoulder ROM WFL No Testing Position Sitting Flexion 128 Abduction 118 External Rotation at 0 degrees Abduction 52 PT-OP-M Strength Start: 10/04/17 14:21 Freq: Status: Active Protocol: Document 03/05/18 16:00 DCW (Rec: 03/05/18 16:14 DCW [id number]) Shoulder Strength Shoulder Manual Muscle Testing Right Flexion 4 Good Abduction (C5) 4+ Good+ External Rotation 4 Good Internal Rotation 5 Normal Left Flexion 4+ Good+ Abduction (C5) 4+ Good+ External Rotation 4+ Good+ Internal Rotation 5 Normal PT-OP-Q Treatments Start: 08/06/17 17:30 Freq: Status: Active Protocol: Document 05/13/18 14:20 DCW (Rec: 05/13/18 15:02 DCW [id number]) Cardio Equipment Upper Body Ergometer (UBE) Duration (Minutes) 5 RPM 60 Seat Position 11 Height 3 Therapeutic Exercises Supine Exercises 1 Supine Exercise Name Supine on Towel roll at T10-12 Side bilateral Comments increase thoracolumbar extension Sitting Exercises PROM Abduction Sitting Exercise Name Pullies GH Abduction PROM Flexion Sitting Exercise Name Pullies GH flexion Side bilateral Standing Exercises Rows Standing Exercise Name Rows Side bilateral Resistance Lv 2 Equipment Used T-band Shoulder Extension Standing Exercise Name Extension Side bilateral Resistance Lv 2 Equipment Used T-band Manual Therapy Treatment Soft Tissue Mobilization 3 Body Location Quadratus Lumborum Mobilization Type Myofascial Release Strumming Sustained Pressure Intensity/Depth Moderate Body Position Sidelying 2 Body Location Glute Med Mobilization Type Strumming Sustained Pressure Intensity/Depth Moderate Body Position Sidelying 1 Body Location Lumbar Erector Spinae Mobilization Type Myofascial Release Sustained Pressure Intensity/Depth Moderate Body Position Sidelying Joint Mobilizations 1 Joint Thoracic Spine Direction P->A Grade III Body Position Sidelying Manual Traction Lumbar Details Hip/Iliac crest depression Body Position Sidelying PT-OP-R Modalities Start: 08/06/17 17:30 Freq: Status: Active Protocol: Document 05/06/18 14:30 DCW (Rec: 05/06/18 15:14 DCW [id number]) Electric Stimulation Electric Stimulation Interferential Current (IFC) Body Location Lumbar Spine Duration (Minutes) 15 Intensity 30 Patient Position Sitting Combined With Heat/Cold Hot Pack PT-OP-T Assessment and Plan Start: 08/06/17 17:30 Freq: Status: Active Protocol: Document 05/13/18 14:20 DCW (Rec: 05/13/18 15:02 DCW [id number]) Physical Therapy Assessment Impairments Impairments Functional Mobility Pain Posture ROM Soft Tissue Mobility Strength Tone Goals Six Impairment Shoulder ROM Skilled Nursing Goal (LTG) Right shoulder ROM = Left shoulder ROM LTG Duration 05/06/18 Five Impairment Pt unable to lift 1/2 gallon of milk out of refrigerator with right arm Short Term Goal (STG) Pt to lift 1/2 gallon of milk with right arm without increased pain. STG Duration 04/05/18 Four Impairment Palpable muscle tone Nurse Obgyn Goal (LTG) Pt muscle tone grossly to mild levels of tone LTG Duration 05/06/18 Three Impairment Thoracic Spine ROM Short Term Goal (STG) Thoracic spine to lacking 10 degrees from neutral at full extension STG Duration Met Skilled Nursing Goal (LTG) Thoracic spine to neutral at full extension LTG Duration 05/06/18 Two Impairment Pain Nurse Obgyn Goal (LTG) Pt to report decreased pain to a max of 4/10 LTG Duration 05/06/18 One Impairment Activity tolerance Nurse Obgyn Goal (LTG) Pt to tolerate gardening with no increased pain for three hours LTG Duration 05/07/18 Assessment Summary Assessment Pt agreeable to skip e-stim today due to increased levels of snowfall, hoping to get home before the roads become too covered. Physical Therapy Plan Frequency and Duration Frequency of Treatment 1x/Week Duration of Treatment 12 weeks Plan of Care Start Date 03/05/18 Plan of Care End Date 05/28/18 Therapeutic Interventions Therapeutic Interventions Aquatic Therapy Home Exercise Program Joint Mobilizations Manual Therapy Neuromuscular Re-education Self-Care/Home Management Soft Tissue Mobilization Therapeutic Exercises Modalities Cold Pack/Ice Massage Electric Stimulation Hot Packs Next Visit Focus/Plan Next Note Type Treatment Note Next Visit Plan Manual therapy and TherEx to limit further Kyphosis, Shoulder strengthening and ROM
--- NOTE | 2018-05-20 15:15 | PT.OTN ---
Current Diagnoses Scoliosis, unspecified (05/20/18) Spondylosis without myelopathy or radiculopathy, cervical region (05/20/18) Other intervertebral disc degeneration, lumbosacral region (05/20/18) Pain in thoracic spine (05/20/18) Physical Therapy Treatment Note PT-OP-A Visit Information Start: 08/06/17 17:30 Freq: Status: Active Protocol: Document 05/20/18 14:30 DCW (Rec: 05/20/18 15:15 DCW [id number]) Out-Patient Physical Therapy Visit Information Visit Information Visit Type Treatment Note Visit Start Time 14:30 Visit Stop Time 15:25 Total Visit Minutes 55 Visit Number 45 Number of GRATING MACHINE OPERATOR Visits 0 Evaluation Information Evaluation Date 05/28/17 PT-OP-B Current Condition Start: 10/04/17 14:21 Freq: Status: Active Protocol: Document 12/10/17 13:45 DCW (Rec: 12/10/17 13:56 DCW [id number]) Current Condition History of Current Condition History of Current Condition Please see patient's chart in Therapy Source for complete history and initial evaluation Current Functional Impairments (Reported) Functional Limitations- Recreation/ Pt unable to tolerate yard- Hobbies work more than 60 minutes without significant increased pain in her shoulders. PT-OP-C Subjective Start: 08/06/17 17:30 Freq: Status: Active Protocol: Document 05/20/18 14:30 DCW (Rec: 05/20/18 15:15 DCW [id number]) OP-PT Subjective Patient Comments Patient Comments Pt notes that she is feeling pretty good at the moment. PT-OP-F Manual Assessment Start: 10/04/17 14:21 Freq: Status: Active Protocol: Document 03/05/18 16:00 DCW (Rec: 03/05/18 16:15 DCW [id number]) Manual Assessments Soft Tissue Assessment Soft Tissue Mobility Assessment Moderate tone in Bilateral thoracic and lumbar paraspinals, piriformis, iliopsoas, and quadratus lumborum. Mild tone in bilateral hamstrings and adductor vinod PT-OP-J Posture/Palpation/Skin Start: 10/04/17 14:21 Freq: Status: Active Protocol: Document 03/05/18 16:00 DCW (Rec: 03/05/18 16:14 DCW [id number]) Posture Evaluation Position Standing Head/C-Spine Posture Forward Head T-Spine Posture Flexible Scoliosis on (L) Increased Kyphosis L-Spine Posture Flexible Scoliosis on (R) Pelvis Posture (L) Iliac Crest Superior Hip Posture (L) Flexed (R) Flexed PT-OP-K Range of Motion Start: 10/04/17 14:21 Freq: Status: Active Protocol: Document 03/05/18 16:00 DCW (Rec: 03/05/18 16:14 DCW [id number]) Lumbar Spine Range of Motion Lumbar Spine Active Degrees Testing Position Standing Comments Max extension, pt is forward flexed 3? at her thoracic spine Shoulder Goniometric Range of Motion Shoulder Measured in Degrees Left Active Shoulder ROM WFL No Testing Position Sitting Flexion 135 Abduction 134 External Rotation at 0 degrees Abduction 54 Right Active Shoulder ROM WFL No Testing Position Sitting Flexion 128 Abduction 118 External Rotation at 0 degrees Abduction 52 PT-OP-M Strength Start: 10/04/17 14:21 Freq: Status: Active Protocol: Document 03/05/18 16:00 DCW (Rec: 03/05/18 16:14 DCW [id number]) Shoulder Strength Shoulder Manual Muscle Testing Right Flexion 4 Good Abduction (C5) 4+ Good+ External Rotation 4 Good Internal Rotation 5 Normal Left Flexion 4+ Good+ Abduction (C5) 4+ Good+ External Rotation 4+ Good+ Internal Rotation 5 Normal PT-OP-Q Treatments Start: 08/06/17 17:30 Freq: Status: Active Protocol: Document 05/20/18 14:30 DCW (Rec: 05/20/18 15:15 DCW [id number]) Cardio Equipment Upper Body Ergometer (UBE) Duration (Minutes) 5 RPM 60 Seat Position 11 Height 3 Therapeutic Exercises Supine Exercises 1 Supine Exercise Name Supine on Towel roll at T10-12 Side bilateral Comments increase thoracolumbar extension Sitting Exercises PROM Abduction Sitting Exercise Name Pullies GH Abduction PROM Flexion Sitting Exercise Name Pullies GH flexion Side bilateral Manual Therapy Treatment Soft Tissue Mobilization 3 Body Location Quadratus Lumborum Mobilization Type Myofascial Release Strumming Sustained Pressure Intensity/Depth Moderate Body Position Sidelying 2 Body Location Glute Med Mobilization Type Strumming Sustained Pressure Intensity/Depth Moderate Body Position Sidelying 1 Body Location Lumbar Erector Spinae Mobilization Type Myofascial Release Sustained Pressure Intensity/Depth Moderate Body Position Sidelying Joint Mobilizations 1 Joint Thoracic Spine Direction P->A Grade III Body Position Sidelying Manual Traction Lumbar Details Hip/Iliac crest depression Body Position Sidelying PT-OP-R Modalities Start: 08/06/17 17:30 Freq: Status: Active Protocol: Document 05/20/18 14:30 DCW (Rec: 05/20/18 15:15 DCW [id number]) Electric Stimulation Electric Stimulation Interferential Current (IFC) Body Location Lumbar Spine Duration (Minutes) 15 Intensity 30 Patient Position Sitting Combined With Heat/Cold Hot Pack PT-OP-T Assessment and Plan Start: 08/06/17 17:30 Freq: Status: Active Protocol: Document 05/20/18 14:30 DCW (Rec: 05/20/18 15:15 DCW [id number]) Physical Therapy Assessment Impairments Impairments Functional Mobility Pain Posture ROM Soft Tissue Mobility Strength Tone Goals Six Impairment Shoulder ROM Custodial Goal (LTG) Right shoulder ROM = Left shoulder ROM LTG Duration 05/06/18 Five Impairment Pt unable to lift 1/2 gallon of milk out of refrigerator with right arm Short Term Goal (STG) Pt to lift 1/2 gallon of milk with right arm without increased pain. STG Duration 04/05/18 Four Impairment Palpable muscle tone Custodial Goal (LTG) Pt muscle tone grossly to mild levels of tone LTG Duration 05/06/18 Three Impairment Thoracic Spine ROM Short Term Goal (STG) Thoracic spine to lacking 10 degrees from neutral at full extension STG Duration Met Custodial Goal (LTG) Thoracic spine to neutral at full extension LTG Duration 05/06/18 Two Impairment Pain Metal Patternmaker Goal (LTG) Pt to report decreased pain to a max of 4/10 LTG Duration 05/06/18 One Impairment Activity tolerance Metal Patternmaker Goal (LTG) Pt to tolerate gardening with no increased pain for three hours LTG Duration 05/07/18 Assessment Summary Assessment Pt doing well today, tolerated treatment, however had some increased tone through lumbar paraspinals. Physical Therapy Plan Frequency and Duration Frequency of Treatment 1x/Week Duration of Treatment 12 weeks Plan of Care Start Date 03/05/18 Plan of Care End Date 05/28/18 Therapeutic Interventions Therapeutic Interventions Aquatic Therapy Home Exercise Program Joint Mobilizations Manual Therapy Neuromuscular Re-education Self-Care/Home Management Soft Tissue Mobilization Therapeutic Exercises Modalities Cold Pack/Ice Massage Electric Stimulation Hot Packs Next Visit Focus/Plan Next Note Type Treatment Note Next Visit Plan Manual therapy and TherEx to limit further Kyphosis, Shoulder strengthening and ROM
--- NOTE | 2018-05-27 15:12 | PT.OTN ---
Current Diagnoses Scoliosis, unspecified (05/27/18) Spondylosis without myelopathy or radiculopathy, cervical region (05/27/18) Other intervertebral disc degeneration, lumbosacral region (05/27/18) Pain in thoracic spine (05/27/18) Physical Therapy Treatment Note PT-OP-A Visit Information Start: 08/06/17 17:30 Freq: Status: Active Protocol: Document 05/27/18 14:30 DCW (Rec: 05/27/18 15:12 DCW [id number]) Out-Patient Physical Therapy Visit Information Visit Information Visit Type Treatment Note Visit Start Time 14:30 Visit Stop Time 15:25 Total Visit Minutes 55 Visit Number 46 Number of NET WEB DEVELOPER Visits 0 Evaluation Information Evaluation Date 05/28/17 PT-OP-B Current Condition Start: 10/04/17 14:21 Freq: Status: Active Protocol: Document 12/10/17 13:45 DCW (Rec: 12/10/17 13:56 DCW [id number]) Current Condition History of Current Condition History of Current Condition Please see patient's chart in Therapy Source for complete history and initial evaluation Current Functional Impairments (Reported) Functional Limitations- Recreation/ Pt unable to tolerate yard- Hobbies work more than 60 minutes without significant increased pain in her shoulders. PT-OP-C Subjective Start: 08/06/17 17:30 Freq: Status: Active Protocol: Document 05/27/18 14:30 DCW (Rec: 05/27/18 15:12 DCW [id number]) OP-PT Subjective Patient Comments Patient Comments Pt reports she is doing fairly well today physically, but is a little fatigued due to having a sick dog at home. PT-OP-F Manual Assessment Start: 10/04/17 14:21 Freq: Status: Active Protocol: Document 03/05/18 16:00 DCW (Rec: 03/05/18 16:15 DCW [id number]) Manual Assessments Soft Tissue Assessment Soft Tissue Mobility Assessment Moderate tone in Bilateral thoracic and lumbar paraspinals, piriformis, iliopsoas, and quadratus lumborum. Mild tone in bilateral hamstrings and adductor vinod PT-OP-J Posture/Palpation/Skin Start: 10/04/17 14:21 Freq: Status: Active Protocol: Document 03/05/18 16:00 DCW (Rec: 03/05/18 16:14 DCW [id number]) Posture Evaluation Position Standing Head/C-Spine Posture Forward Head T-Spine Posture Flexible Scoliosis on (L) Increased Kyphosis L-Spine Posture Flexible Scoliosis on (R) Pelvis Posture (L) Iliac Crest Superior Hip Posture (L) Flexed (R) Flexed PT-OP-K Range of Motion Start: 10/04/17 14:21 Freq: Status: Active Protocol: Document 03/05/18 16:00 DCW (Rec: 03/05/18 16:14 DCW [id number]) Lumbar Spine Range of Motion Lumbar Spine Active Degrees Testing Position Standing Comments Max extension, pt is forward flexed 3? at her thoracic spine Shoulder Goniometric Range of Motion Shoulder Measured in Degrees Left Active Shoulder ROM WFL No Testing Position Sitting Flexion 135 Abduction 134 External Rotation at 0 degrees Abduction 54 Right Active Shoulder ROM WFL No Testing Position Sitting Flexion 128 Abduction 118 External Rotation at 0 degrees Abduction 52 PT-OP-M Strength Start: 10/04/17 14:21 Freq: Status: Active Protocol: Document 03/05/18 16:00 DCW (Rec: 03/05/18 16:14 DCW [id number]) Shoulder Strength Shoulder Manual Muscle Testing Right Flexion 4 Good Abduction (C5) 4+ Good+ External Rotation 4 Good Internal Rotation 5 Normal Left Flexion 4+ Good+ Abduction (C5) 4+ Good+ External Rotation 4+ Good+ Internal Rotation 5 Normal PT-OP-Q Treatments Start: 08/06/17 17:30 Freq: Status: Active Protocol: Document 05/27/18 14:30 DCW (Rec: 05/27/18 15:12 DCW [id number]) Cardio Equipment Upper Body Ergometer (UBE) Duration (Minutes) 5 RPM 60 Seat Position 11 Height 3 Therapeutic Exercises Supine Exercises 1 Supine Exercise Name Supine on Towel roll at T10-12 Side bilateral Comments increase thoracolumbar extension Sitting Exercises PROM Abduction Sitting Exercise Name Pullies GH Abduction PROM Flexion Sitting Exercise Name Pullies GH flexion Side bilateral Manual Therapy Treatment Soft Tissue Mobilization 3 Body Location Quadratus Lumborum Mobilization Type Myofascial Release Strumming Sustained Pressure Intensity/Depth Moderate Body Position Sidelying 2 Body Location Glute Med Mobilization Type Strumming Sustained Pressure Intensity/Depth Moderate Body Position Sidelying 1 Body Location Lumbar Erector Spinae Mobilization Type Myofascial Release Sustained Pressure Intensity/Depth Moderate Body Position Sidelying Joint Mobilizations 1 Joint Thoracic Spine Direction P->A Grade III Body Position Sidelying Manual Traction Lumbar Details Hip/Iliac crest depression Body Position Sidelying PT-OP-R Modalities Start: 08/06/17 17:30 Freq: Status: Active Protocol: Document 05/27/18 14:30 DCW (Rec: 05/27/18 15:12 DCW [id number]) Electric Stimulation Electric Stimulation Interferential Current (IFC) Body Location Lumbar Spine Duration (Minutes) 15 Intensity 30 Patient Position Sitting Combined With Heat/Cold Hot Pack PT-OP-T Assessment and Plan Start: 08/06/17 17:30 Freq: Status: Active Protocol: Document 05/27/18 14:30 DCW (Rec: 05/27/18 15:12 DCW [id number]) Physical Therapy Assessment Impairments Impairments Functional Mobility Pain Posture ROM Soft Tissue Mobility Strength Tone Goals Six Impairment Shoulder ROM Long-Term Goal (LTG) Right shoulder ROM = Left shoulder ROM LTG Duration 05/06/18 Five Impairment Pt unable to lift 1/2 gallon of milk out of refrigerator with right arm Short Term Goal (STG) Pt to lift 1/2 gallon of milk with right arm without increased pain. STG Duration 04/05/18 Four Impairment Palpable muscle tone Long-Term Goal (LTG) Pt muscle tone grossly to mild levels of tone LTG Duration 05/06/18 Three Impairment Thoracic Spine ROM Short Term Goal (STG) Thoracic spine to lacking 10 degrees from neutral at full extension STG Duration Met Long-Term Goal (LTG) Thoracic spine to neutral at full extension LTG Duration 05/06/18 Two Impairment Pain Long-Term Goal (LTG) Pt to report decreased pain to a max of 4/10 LTG Duration 05/06/18 One Impairment Activity tolerance Long-Term Goal (LTG) Pt to tolerate gardening with no increased pain for three hours LTG Duration 05/07/18 Assessment Summary Assessment Pt's shoulders are bothering her less recently, but in frequency and severity, still occasionally has pain from her ribs and pelvis rubbing against each other due to her excessive kyphosis. Physical Therapy Plan Frequency and Duration Frequency of Treatment 1x/Week Duration of Treatment 12 weeks Plan of Care Start Date 03/05/18 Plan of Care End Date 05/28/18 Therapeutic Interventions Therapeutic Interventions Aquatic Therapy Home Exercise Program Joint Mobilizations Manual Therapy Neuromuscular Re-education Self-Care/Home Management Soft Tissue Mobilization Therapeutic Exercises Modalities Cold Pack/Ice Massage Electric Stimulation Hot Packs Next Visit Focus/Plan Next Note Type Progress Note Next Visit Plan Manual therapy and TherEx to limit further Kyphosis, Shoulder strengthening and ROM
--- NOTE | 2018-06-03 15:14 | PT.OTN ---
Current Diagnoses Scoliosis, unspecified (06/03/18) Spondylosis without myelopathy or radiculopathy, cervical region (06/03/18) Other intervertebral disc degeneration, lumbosacral region (06/03/18) Pain in thoracic spine (06/03/18) Physical Therapy Treatment Note PT-OP-A Visit Information Start: 08/06/17 17:30 Freq: Status: Active Protocol: Document 06/03/18 14:30 DCW (Rec: 06/03/18 15:14 DCW [id number]) Out-Patient Physical Therapy Visit Information Visit Information Visit Type Treatment Note Visit Start Time 14:30 Visit Stop Time 15:15 Total Visit Minutes 45 Visit Number 47 Number of INTERNAL INVESTIGATOR Visits 0 Evaluation Information Evaluation Date 05/28/17 PT-OP-B Current Condition Start: 10/04/17 14:21 Freq: Status: Active Protocol: Document 12/10/17 13:45 DCW (Rec: 12/10/17 13:56 DCW [id number]) Current Condition History of Current Condition History of Current Condition Please see patient's chart in Therapy Source for complete history and initial evaluation Current Functional Impairments (Reported) Functional Limitations- Recreation/ Pt unable to tolerate yard- Hobbies work more than 60 minutes without significant increased pain in her shoulders. PT-OP-C Subjective Start: 08/06/17 17:30 Freq: Status: Active Protocol: Document 06/03/18 14:30 DCW (Rec: 06/03/18 15:14 DCW [id number]) OP-PT Subjective Patient Comments Patient Comments Pt reports she is actually pretty good today. PT-OP-F Manual Assessment Start: 10/04/17 14:21 Freq: Status: Active Protocol: Document 03/05/18 16:00 DCW (Rec: 03/05/18 16:15 DCW [id number]) Manual Assessments Soft Tissue Assessment Soft Tissue Mobility Assessment Moderate tone in Bilateral thoracic and lumbar paraspinals, piriformis, iliopsoas, and quadratus lumborum. Mild tone in bilateral hamstrings and adductor vinod PT-OP-J Posture/Palpation/Skin Start: 10/04/17 14:21 Freq: Status: Active Protocol: Document 03/05/18 16:00 DCW (Rec: 03/05/18 16:14 DCW [id number]) Posture Evaluation Position Standing Head/C-Spine Posture Forward Head T-Spine Posture Flexible Scoliosis on (L) Increased Kyphosis L-Spine Posture Flexible Scoliosis on (R) Pelvis Posture (L) Iliac Crest Superior Hip Posture (L) Flexed (R) Flexed PT-OP-K Range of Motion Start: 10/04/17 14:21 Freq: Status: Active Protocol: Document 03/05/18 16:00 DCW (Rec: 03/05/18 16:14 DCW [id number]) Lumbar Spine Range of Motion Lumbar Spine Active Degrees Testing Position Standing Comments Max extension, pt is forward flexed 3? at her thoracic spine Shoulder Goniometric Range of Motion Shoulder Measured in Degrees Left Active Shoulder ROM WFL No Testing Position Sitting Flexion 135 Abduction 134 External Rotation at 0 degrees Abduction 54 Right Active Shoulder ROM WFL No Testing Position Sitting Flexion 128 Abduction 118 External Rotation at 0 degrees Abduction 52 PT-OP-M Strength Start: 10/04/17 14:21 Freq: Status: Active Protocol: Document 03/05/18 16:00 DCW (Rec: 03/05/18 16:14 DCW [id number]) Shoulder Strength Shoulder Manual Muscle Testing Right Flexion 4 Good Abduction (C5) 4+ Good+ External Rotation 4 Good Internal Rotation 5 Normal Left Flexion 4+ Good+ Abduction (C5) 4+ Good+ External Rotation 4+ Good+ Internal Rotation 5 Normal PT-OP-Q Treatments Start: 08/06/17 17:30 Freq: Status: Active Protocol: Document 06/03/18 14:30 DCW (Rec: 06/03/18 15:14 DCW [id number]) Cardio Equipment Upper Body Ergometer (UBE) Duration (Minutes) 5 RPM 60 Seat Position 12 Height 3 Therapeutic Exercises Supine Exercises 1 Supine Exercise Name Supine on Towel roll at T10-12 Side bilateral Comments increase thoracolumbar extension Sitting Exercises PROM Abduction Sitting Exercise Name Pullies GH Abduction PROM Flexion Sitting Exercise Name Pullies GH flexion Side bilateral Manual Therapy Treatment Soft Tissue Mobilization 3 Body Location Quadratus Lumborum Mobilization Type Myofascial Release Strumming Sustained Pressure Intensity/Depth Moderate Body Position Sidelying 2 Body Location Glute Med Mobilization Type Strumming Sustained Pressure Intensity/Depth Moderate Body Position Sidelying 1 Body Location Lumbar Erector Spinae Mobilization Type Myofascial Release Sustained Pressure Intensity/Depth Moderate Body Position Sidelying Joint Mobilizations 1 Joint Thoracic Spine Direction P->A Grade III Body Position Sidelying Manual Traction Lumbar Details Hip/Iliac crest depression Body Position Sidelying PT-OP-R Modalities Start: 08/06/17 17:30 Freq: Status: Active Protocol: Document 05/27/18 14:30 DCW (Rec: 05/27/18 15:12 DCW [id number]) Electric Stimulation Electric Stimulation Interferential Current (IFC) Body Location Lumbar Spine Duration (Minutes) 15 Intensity 30 Patient Position Sitting Combined With Heat/Cold Hot Pack PT-OP-T Assessment and Plan Start: 08/06/17 17:30 Freq: Status: Active Protocol: Document 06/03/18 14:30 DCW (Rec: 06/03/18 15:14 DCW [id number]) Physical Therapy Assessment Impairments Impairments Functional Mobility Pain Posture ROM Soft Tissue Mobility Strength Tone Goals Six Impairment Shoulder ROM Pararescue Manager Goal (LTG) Right shoulder ROM = Left shoulder ROM LTG Duration 05/06/18 Five Impairment Pt unable to lift 1/2 gallon of milk out of refrigerator with right arm Short Term Goal (STG) Pt to lift 1/2 gallon of milk with right arm without increased pain. STG Duration 04/05/18 Four Impairment Palpable muscle tone Senior Living Goal (LTG) Pt muscle tone grossly to mild levels of tone LTG Duration 05/06/18 Three Impairment Thoracic Spine ROM Short Term Goal (STG) Thoracic spine to lacking 10 degrees from neutral at full extension STG Duration Met Senior Living Goal (LTG) Thoracic spine to neutral at full extension LTG Duration 05/06/18 Two Impairment Pain Senior Living Goal (LTG) Pt to report decreased pain to a max of 4/10 LTG Duration 05/06/18 One Impairment Activity tolerance Pararescue Manager Goal (LTG) Pt to tolerate gardening with no increased pain for three hours LTG Duration 05/07/18 Assessment Summary Assessment Pt requested skipping E-stim today, as she has a meeting to get to. Pt tolerated treatment well, and is feeling less severe and less frequent pain. Physical Therapy Plan Frequency and Duration Frequency of Treatment 1x/Week Duration of Treatment 12 weeks Plan of Care Start Date 03/05/18 Plan of Care End Date 05/28/18 Therapeutic Interventions Therapeutic Interventions Aquatic Therapy Home Exercise Program Joint Mobilizations Manual Therapy Neuromuscular Re-education Self-Care/Home Management Soft Tissue Mobilization Therapeutic Exercises Modalities Cold Pack/Ice Massage Electric Stimulation Hot Packs Next Visit Focus/Plan Next Note Type Progress Note Next Visit Plan Manual therapy and TherEx to limit further Kyphosis, Shoulder strengthening and ROM
--- NOTE | 2018-06-03 15:15 | PT.OPPOC ---
Current Diagnoses Scoliosis, unspecified (06/03/18) Spondylosis without myelopathy or radiculopathy, cervical region (06/03/18) Other intervertebral disc degeneration, lumbosacral region (06/03/18) Pain in thoracic spine (06/03/18) Provider Visit Care Team Role Provider Type Jia Sheridan MD Attending Provider Physician Family Provider Primary Care Provider Specialty: Family Practice Address: [address] [place] [address], [facility] Email: Plan Of Care PT-OP-T Assessment and Plan Start: 08/06/17 17:30 Freq: Status: Active Protocol: Document 06/03/18 14:30 DCW (Rec: 06/03/18 15:14 DCW [id number]) Physical Therapy Assessment Impairments Impairments Functional Mobility Pain Posture ROM Soft Tissue Mobility Strength Tone Goals Six Impairment Shoulder ROM Ip Litigation Paralegal Goal (LTG) Right shoulder ROM = Left shoulder ROM LTG Duration 05/06/18 Five Impairment Pt unable to lift 1/2 gallon of milk out of refrigerator with right arm Short Term Goal (STG) Pt to lift 1/2 gallon of milk with right arm without increased pain. STG Duration 04/05/18 Four Impairment Palpable muscle tone Snf Goal (LTG) Pt muscle tone grossly to mild levels of tone LTG Duration 05/06/18 Three Impairment Thoracic Spine ROM Short Term Goal (STG) Thoracic spine to lacking 10 degrees from neutral at full extension STG Duration Met Snf Goal (LTG) Thoracic spine to neutral at full extension LTG Duration 05/06/18 Two Impairment Pain Snf Goal (LTG) Pt to report decreased pain to a max of 4/10 LTG Duration 05/06/18 One Impairment Activity tolerance Snf Goal (LTG) Pt to tolerate gardening with no increased pain for three hours LTG Duration 05/07/18 Assessment Summary Assessment Pt requested skipping E-stim today, as she has a meeting to get to. Pt tolerated treatment well, and is feeling less severe and less frequent pain. Continued therapy as indicated for decreased kyphosis should help assist pt with continued decrease in pain. Physical Therapy Plan Frequency and Duration Frequency of Treatment 1x/Week Duration of Treatment 12 weeks Plan of Care Start Date 06/03/18 Plan of Care End Date 08/26/18 Therapeutic Interventions Therapeutic Interventions Aquatic Therapy Home Exercise Program Joint Mobilizations Manual Therapy Neuromuscular Re-education Self-Care/Home Management Soft Tissue Mobilization Therapeutic Exercises Modalities Cold Pack/Ice Massage Electric Stimulation Hot Packs Next Visit Focus/Plan Next Note Type Progress Note Next Visit Plan Manual therapy and TherEx to limit further Kyphosis, Shoulder strengthening and ROM Plan of Care Dates Plan of Care Start Date 06/03/18 Plan of Care End Date 08/26/18 Please Sign and Return: I have reviewed this Plan of Care and certify that the skilled therapy services above are required to meet the patient?s needs. Physician Signature Date Printed Name and Credentials Clinical Instructor Signature Printed Name and Credentials
--- NOTE | 2018-06-03 15:15 | PT.OTN ---
Current Diagnoses Scoliosis, unspecified (06/03/18) Spondylosis without myelopathy or radiculopathy, cervical region (06/03/18) Other intervertebral disc degeneration, lumbosacral region (06/03/18) Pain in thoracic spine (06/03/18) Physical Therapy Treatment Note PT-OP-A Visit Information Start: 08/06/17 17:30 Freq: Status: Active Protocol: Document 06/03/18 14:30 DCW (Rec: 06/03/18 15:14 DCW [id number]) Out-Patient Physical Therapy Visit Information Visit Information Visit Type Treatment Note Visit Start Time 14:30 Visit Stop Time 15:15 Total Visit Minutes 45 Visit Number 47 Number of HEALTHCARE ARCHITECT Visits 0 Evaluation Information Evaluation Date 05/28/17 PT-OP-B Current Condition Start: 10/04/17 14:21 Freq: Status: Active Protocol: Document 12/10/17 13:45 DCW (Rec: 12/10/17 13:56 DCW [id number]) Current Condition History of Current Condition History of Current Condition Please see patient's chart in Therapy Source for complete history and initial evaluation Current Functional Impairments (Reported) Functional Limitations- Recreation/ Pt unable to tolerate yard- Hobbies work more than 60 minutes without significant increased pain in her shoulders. PT-OP-C Subjective Start: 08/06/17 17:30 Freq: Status: Active Protocol: Document 06/03/18 14:30 DCW (Rec: 06/03/18 15:14 DCW [id number]) OP-PT Subjective Patient Comments Patient Comments Pt reports she is actually pretty good today. PT-OP-F Manual Assessment Start: 10/04/17 14:21 Freq: Status: Active Protocol: Document 03/05/18 16:00 DCW (Rec: 03/05/18 16:15 DCW [id number]) Manual Assessments Soft Tissue Assessment Soft Tissue Mobility Assessment Moderate tone in Bilateral thoracic and lumbar paraspinals, piriformis, iliopsoas, and quadratus lumborum. Mild tone in bilateral hamstrings and adductor vinod PT-OP-J Posture/Palpation/Skin Start: 10/04/17 14:21 Freq: Status: Active Protocol: Document 03/05/18 16:00 DCW (Rec: 03/05/18 16:14 DCW [id number]) Posture Evaluation Position Standing Head/C-Spine Posture Forward Head T-Spine Posture Flexible Scoliosis on (L) Increased Kyphosis L-Spine Posture Flexible Scoliosis on (R) Pelvis Posture (L) Iliac Crest Superior Hip Posture (L) Flexed (R) Flexed PT-OP-K Range of Motion Start: 10/04/17 14:21 Freq: Status: Active Protocol: Document 03/05/18 16:00 DCW (Rec: 03/05/18 16:14 DCW [id number]) Lumbar Spine Range of Motion Lumbar Spine Active Degrees Testing Position Standing Comments Max extension, pt is forward flexed 3? at her thoracic spine Shoulder Goniometric Range of Motion Shoulder Measured in Degrees Left Active Shoulder ROM WFL No Testing Position Sitting Flexion 135 Abduction 134 External Rotation at 0 degrees Abduction 54 Right Active Shoulder ROM WFL No Testing Position Sitting Flexion 128 Abduction 118 External Rotation at 0 degrees Abduction 52 PT-OP-M Strength Start: 10/04/17 14:21 Freq: Status: Active Protocol: Document 03/05/18 16:00 DCW (Rec: 03/05/18 16:14 DCW [id number]) Shoulder Strength Shoulder Manual Muscle Testing Right Flexion 4 Good Abduction (C5) 4+ Good+ External Rotation 4 Good Internal Rotation 5 Normal Left Flexion 4+ Good+ Abduction (C5) 4+ Good+ External Rotation 4+ Good+ Internal Rotation 5 Normal PT-OP-Q Treatments Start: 08/06/17 17:30 Freq: Status: Active Protocol: Document 06/03/18 14:30 DCW (Rec: 06/03/18 15:14 DCW [id number]) Cardio Equipment Upper Body Ergometer (UBE) Duration (Minutes) 5 RPM 60 Seat Position 12 Height 3 Therapeutic Exercises Supine Exercises 1 Supine Exercise Name Supine on Towel roll at T10-12 Side bilateral Comments increase thoracolumbar extension Sitting Exercises PROM Abduction Sitting Exercise Name Pullies GH Abduction PROM Flexion Sitting Exercise Name Pullies GH flexion Side bilateral Manual Therapy Treatment Soft Tissue Mobilization 3 Body Location Quadratus Lumborum Mobilization Type Myofascial Release Strumming Sustained Pressure Intensity/Depth Moderate Body Position Sidelying 2 Body Location Glute Med Mobilization Type Strumming Sustained Pressure Intensity/Depth Moderate Body Position Sidelying 1 Body Location Lumbar Erector Spinae Mobilization Type Myofascial Release Sustained Pressure Intensity/Depth Moderate Body Position Sidelying Joint Mobilizations 1 Joint Thoracic Spine Direction P->A Grade III Body Position Sidelying Manual Traction Lumbar Details Hip/Iliac crest depression Body Position Sidelying PT-OP-R Modalities Start: 08/06/17 17:30 Freq: Status: Active Protocol: Document 05/27/18 14:30 DCW (Rec: 05/27/18 15:12 DCW [id number]) Electric Stimulation Electric Stimulation Interferential Current (IFC) Body Location Lumbar Spine Duration (Minutes) 15 Intensity 30 Patient Position Sitting Combined With Heat/Cold Hot Pack PT-OP-T Assessment and Plan Start: 08/06/17 17:30 Freq: Status: Active Protocol: Document 06/03/18 14:30 DCW (Rec: 06/03/18 15:14 DCW [id number]) Physical Therapy Assessment Impairments Impairments Functional Mobility Pain Posture ROM Soft Tissue Mobility Strength Tone Goals Six Impairment Shoulder ROM Flour Blender Helper Goal (LTG) Right shoulder ROM = Left shoulder ROM LTG Duration 05/06/18 Five Impairment Pt unable to lift 1/2 gallon of milk out of refrigerator with right arm Short Term Goal (STG) Pt to lift 1/2 gallon of milk with right arm without increased pain. STG Duration 04/05/18 Four Impairment Palpable muscle tone Correction Goal (LTG) Pt muscle tone grossly to mild levels of tone LTG Duration 05/06/18 Three Impairment Thoracic Spine ROM Short Term Goal (STG) Thoracic spine to lacking 10 degrees from neutral at full extension STG Duration Met Correction Goal (LTG) Thoracic spine to neutral at full extension LTG Duration 05/06/18 Two Impairment Pain Correction Goal (LTG) Pt to report decreased pain to a max of 4/10 LTG Duration 05/06/18 One Impairment Activity tolerance Flour Blender Helper Goal (LTG) Pt to tolerate gardening with no increased pain for three hours LTG Duration 05/07/18 Assessment Summary Assessment Pt requested skipping E-stim today, as she has a meeting to get to. Pt tolerated treatment well, and is feeling less severe and less frequent pain. Continued therapy as indicated for decreased kyphosis should help assist pt with continued decrease in pain. Physical Therapy Plan Frequency and Duration Frequency of Treatment 1x/Week Duration of Treatment 12 weeks Plan of Care Start Date 06/03/18 Plan of Care End Date 08/26/18 Therapeutic Interventions Therapeutic Interventions Aquatic Therapy Home Exercise Program Joint Mobilizations Manual Therapy Neuromuscular Re-education Self-Care/Home Management Soft Tissue Mobilization Therapeutic Exercises Modalities Cold Pack/Ice Massage Electric Stimulation Hot Packs Next Visit Focus/Plan Next Note Type Progress Note Next Visit Plan Manual therapy and TherEx to limit further Kyphosis, Shoulder strengthening and ROM
--- NOTE | 2018-06-10 15:27 | PT.OTN ---
Current Diagnoses Scoliosis, unspecified (06/10/18) Spondylosis without myelopathy or radiculopathy, cervical region (06/10/18) Other intervertebral disc degeneration, lumbosacral region (06/10/18) Pain in thoracic spine (06/10/18) Physical Therapy Treatment Note PT-OP-A Visit Information Start: 08/06/17 17:30 Freq: Status: Active Protocol: Document 06/10/18 14:30 DCW (Rec: 06/10/18 15:27 DCW [id number]) Out-Patient Physical Therapy Visit Information Visit Information Visit Type Treatment Note Visit Start Time 14:30 Visit Stop Time 15:25 Total Visit Minutes 55 Visit Number 48 Number of DREDGE CAPTAIN Visits 0 Evaluation Information Evaluation Date 05/28/17 PT-OP-B Current Condition Start: 10/04/17 14:21 Freq: Status: Active Protocol: Document 12/10/17 13:45 DCW (Rec: 12/10/17 13:56 DCW [id number]) Current Condition History of Current Condition History of Current Condition Please see patient's chart in Therapy Source for complete history and initial evaluation Current Functional Impairments (Reported) Functional Limitations- Recreation/ Pt unable to tolerate yard- Hobbies work more than 60 minutes without significant increased pain in her shoulders. PT-OP-C Subjective Start: 08/06/17 17:30 Freq: Status: Active Protocol: Document 06/10/18 14:30 DCW (Rec: 06/10/18 15:27 DCW [id number]) OP-PT Subjective Patient Comments Patient Comments Pt notes that her back has been sore today. PT-OP-F Manual Assessment Start: 10/04/17 14:21 Freq: Status: Active Protocol: Document 03/05/18 16:00 DCW (Rec: 03/05/18 16:15 DCW [id number]) Manual Assessments Soft Tissue Assessment Soft Tissue Mobility Assessment Moderate tone in Bilateral thoracic and lumbar paraspinals, piriformis, iliopsoas, and quadratus lumborum. Mild tone in bilateral hamstrings and adductor vinod PT-OP-J Posture/Palpation/Skin Start: 10/04/17 14:21 Freq: Status: Active Protocol: Document 03/05/18 16:00 DCW (Rec: 03/05/18 16:14 DCW [id number]) Posture Evaluation Position Standing Head/C-Spine Posture Forward Head T-Spine Posture Flexible Scoliosis on (L) Increased Kyphosis L-Spine Posture Flexible Scoliosis on (R) Pelvis Posture (L) Iliac Crest Superior Hip Posture (L) Flexed (R) Flexed PT-OP-K Range of Motion Start: 10/04/17 14:21 Freq: Status: Active Protocol: Document 03/05/18 16:00 DCW (Rec: 03/05/18 16:14 DCW [id number]) Lumbar Spine Range of Motion Lumbar Spine Active Degrees Testing Position Standing Comments Max extension, pt is forward flexed 3? at her thoracic spine Shoulder Goniometric Range of Motion Shoulder Measured in Degrees Left Active Shoulder ROM WFL No Testing Position Sitting Flexion 135 Abduction 134 External Rotation at 0 degrees Abduction 54 Right Active Shoulder ROM WFL No Testing Position Sitting Flexion 128 Abduction 118 External Rotation at 0 degrees Abduction 52 PT-OP-M Strength Start: 10/04/17 14:21 Freq: Status: Active Protocol: Document 03/05/18 16:00 DCW (Rec: 03/05/18 16:14 DCW [id number]) Shoulder Strength Shoulder Manual Muscle Testing Right Flexion 4 Good Abduction (C5) 4+ Good+ External Rotation 4 Good Internal Rotation 5 Normal Left Flexion 4+ Good+ Abduction (C5) 4+ Good+ External Rotation 4+ Good+ Internal Rotation 5 Normal PT-OP-Q Treatments Start: 08/06/17 17:30 Freq: Status: Active Protocol: Document 06/10/18 14:30 DCW (Rec: 06/10/18 15:27 DCW [id number]) Cardio Equipment Upper Body Ergometer (UBE) Duration (Minutes) 5 RPM 60 Seat Position 12 Height 3 Therapeutic Exercises Supine Exercises 1 Supine Exercise Name Supine on Towel roll at T10-12 Side bilateral Comments increase thoracolumbar extension Sitting Exercises PROM Abduction Sitting Exercise Name Pullies GH Abduction PROM Flexion Sitting Exercise Name Pullies GH flexion Side bilateral Standing Exercises Rows Standing Exercise Name Rows Side bilateral Resistance Lv 2 Equipment Used T-band Shoulder Extension Standing Exercise Name Extension Side bilateral Resistance Lv 2 Equipment Used T-band Manual Therapy Treatment Soft Tissue Mobilization 3 Body Location Quadratus Lumborum Mobilization Type Myofascial Release Strumming Sustained Pressure Intensity/Depth Moderate Body Position Sidelying 2 Body Location Glute Med Mobilization Type Strumming Sustained Pressure Intensity/Depth Moderate Body Position Sidelying 1 Body Location Lumbar Erector Spinae Mobilization Type Myofascial Release Sustained Pressure Intensity/Depth Moderate Body Position Sidelying Joint Mobilizations 1 Joint Thoracic Spine Direction P->A Grade III Body Position Sidelying Manual Traction Lumbar Details Hip/Iliac crest depression Body Position Sidelying PT-OP-R Modalities Start: 08/06/17 17:30 Freq: Status: Active Protocol: Document 06/10/18 14:30 DCW (Rec: 06/10/18 15:27 DCW [id number]) Electric Stimulation Electric Stimulation Interferential Current (IFC) Body Location Lumbar Spine Duration (Minutes) 15 Intensity 30 Patient Position Sitting Combined With Heat/Cold Hot Pack PT-OP-T Assessment and Plan Start: 08/06/17 17:30 Freq: Status: Active Protocol: Document 06/10/18 14:30 DCW (Rec: 06/10/18 15:27 DCW [id number]) Physical Therapy Assessment Impairments Impairments Functional Mobility Pain Posture ROM Soft Tissue Mobility Strength Tone Goals Six Impairment Shoulder ROM Drop Wire Aligner Goal (LTG) Right shoulder ROM = Left shoulder ROM LTG Duration 05/06/18 Five Impairment Pt unable to lift 1/2 gallon of milk out of refrigerator with right arm Short Term Goal (STG) Pt to lift 1/2 gallon of milk with right arm without increased pain. STG Duration 04/05/18 Four Impairment Palpable muscle tone Longterm Goal (LTG) Pt muscle tone grossly to mild levels of tone LTG Duration 05/06/18 Three Impairment Thoracic Spine ROM Short Term Goal (STG) Thoracic spine to lacking 10 degrees from neutral at full extension STG Duration Met Drop Wire Aligner Goal (LTG) Thoracic spine to neutral at full extension LTG Duration 05/06/18 Two Impairment Pain Longterm Goal (LTG) Pt to report decreased pain to a max of 4/10 LTG Duration 05/06/18 One Impairment Activity tolerance Longterm Goal (LTG) Pt to tolerate gardening with no increased pain for three hours LTG Duration 05/07/18 Assessment Summary Assessment Pt reported decreased low/mid back pain following treatment today, able to stand up closer to neutral in her T-spine. Physical Therapy Plan Frequency and Duration Frequency of Treatment 1x/Week Duration of Treatment 12 weeks Plan of Care Start Date 06/03/18 Plan of Care End Date 08/26/18 Therapeutic Interventions Therapeutic Interventions Aquatic Therapy Home Exercise Program Joint Mobilizations Manual Therapy Neuromuscular Re-education Self-Care/Home Management Soft Tissue Mobilization Therapeutic Exercises Modalities Cold Pack/Ice Massage Electric Stimulation Hot Packs Next Visit Focus/Plan Next Note Type Progress Note Next Visit Plan Manual therapy and TherEx to limit further Kyphosis, Shoulder strengthening and ROM
--- NOTE | 2018-06-17 15:11 | PT.OTN ---
Current Diagnoses Scoliosis, unspecified (06/17/18) Spondylosis without myelopathy or radiculopathy, cervical region (06/17/18) Other intervertebral disc degeneration, lumbosacral region (06/17/18) Pain in thoracic spine (06/17/18) Physical Therapy Treatment Note PT-OP-A Visit Information Start: 08/06/17 17:30 Freq: Status: Active Protocol: Document 06/17/18 14:30 DCW (Rec: 06/17/18 15:11 DCW [id number]) Out-Patient Physical Therapy Visit Information Visit Information Visit Type Treatment Note Visit Start Time 14:30 Visit Stop Time 15:25 Total Visit Minutes 55 Visit Number 48 Number of UTILITY TELLER Visits 0 Evaluation Information Evaluation Date 05/28/17 PT-OP-B Current Condition Start: 10/04/17 14:21 Freq: Status: Active Protocol: Document 12/10/17 13:45 DCW (Rec: 12/10/17 13:56 DCW [id number]) Current Condition History of Current Condition History of Current Condition Please see patient's chart in Therapy Source for complete history and initial evaluation Current Functional Impairments (Reported) Functional Limitations- Recreation/ Pt unable to tolerate yard- Hobbies work more than 60 minutes without significant increased pain in her shoulders. PT-OP-C Subjective Start: 08/06/17 17:30 Freq: Status: Active Protocol: Document 06/17/18 14:30 DCW (Rec: 06/17/18 15:11 DCW [id number]) OP-PT Subjective Patient Comments Patient Comments Pt reports that at her recent Dr's appt, she was measured at 1/4 inch taller than what she has been, so she is very excited that her back may be straightening out. PT-OP-F Manual Assessment Start: 10/04/17 14:21 Freq: Status: Active Protocol: Document 03/05/18 16:00 DCW (Rec: 03/05/18 16:15 DCW [id number]) Manual Assessments Soft Tissue Assessment Soft Tissue Mobility Assessment Moderate tone in Bilateral thoracic and lumbar paraspinals, piriformis, iliopsoas, and quadratus lumborum. Mild tone in bilateral hamstrings and adductor vinod PT-OP-J Posture/Palpation/Skin Start: 10/04/17 14:21 Freq: Status: Active Protocol: Document 03/05/18 16:00 DCW (Rec: 03/05/18 16:14 DCW [id number]) Posture Evaluation Position Standing Head/C-Spine Posture Forward Head T-Spine Posture Flexible Scoliosis on (L) Increased Kyphosis L-Spine Posture Flexible Scoliosis on (R) Pelvis Posture (L) Iliac Crest Superior Hip Posture (L) Flexed (R) Flexed PT-OP-K Range of Motion Start: 10/04/17 14:21 Freq: Status: Active Protocol: Document 03/05/18 16:00 DCW (Rec: 03/05/18 16:14 DCW [id number]) Lumbar Spine Range of Motion Lumbar Spine Active Degrees Testing Position Standing Comments Max extension, pt is forward flexed 3? at her thoracic spine Shoulder Goniometric Range of Motion Shoulder Measured in Degrees Left Active Shoulder ROM WFL No Testing Position Sitting Flexion 135 Abduction 134 External Rotation at 0 degrees Abduction 54 Right Active Shoulder ROM WFL No Testing Position Sitting Flexion 128 Abduction 118 External Rotation at 0 degrees Abduction 52 PT-OP-M Strength Start: 10/04/17 14:21 Freq: Status: Active Protocol: Document 03/05/18 16:00 DCW (Rec: 03/05/18 16:14 DCW [id number]) Shoulder Strength Shoulder Manual Muscle Testing Right Flexion 4 Good Abduction (C5) 4+ Good+ External Rotation 4 Good Internal Rotation 5 Normal Left Flexion 4+ Good+ Abduction (C5) 4+ Good+ External Rotation 4+ Good+ Internal Rotation 5 Normal PT-OP-Q Treatments Start: 08/06/17 17:30 Freq: Status: Active Protocol: Document 06/17/18 14:30 DCW (Rec: 06/17/18 15:11 DCW [id number]) Cardio Equipment Upper Body Ergometer (UBE) Duration (Minutes) 5 RPM 60 Seat Position 12 Height 3 Therapeutic Exercises Supine Exercises Shoulder Flexion Supine Exercise Name Flex with wand Side bilateral Resistance 5# Equipment Used wand Comments Pain-free ROM 1 Supine Exercise Name Supine on Towel roll at T10-12 Side bilateral Comments increase thoracolumbar extension Standing Exercises Rows Standing Exercise Name Rows Side bilateral Resistance Lv 3 Equipment Used T-band Shoulder Extension Standing Exercise Name Extension Side bilateral Resistance Lv 3 Equipment Used T-band Manual Therapy Treatment Soft Tissue Mobilization 3 Body Location Quadratus Lumborum Mobilization Type Myofascial Release Strumming Sustained Pressure Intensity/Depth Moderate Body Position Sidelying 2 Body Location Glute Med Mobilization Type Strumming Sustained Pressure Intensity/Depth Moderate Body Position Sidelying 1 Body Location Lumbar Erector Spinae Mobilization Type Myofascial Release Sustained Pressure Intensity/Depth Moderate Body Position Sidelying Joint Mobilizations 1 Joint Thoracic Spine Direction P->A Grade III Body Position Sidelying Manual Traction Lumbar Details Hip/Iliac crest depression Body Position Sidelying PT-OP-R Modalities Start: 08/06/17 17:30 Freq: Status: Active Protocol: Document 06/17/18 14:30 DCW (Rec: 06/17/18 15:11 DCW [id number]) Electric Stimulation Electric Stimulation Interferential Current (IFC) Body Location Lumbar Spine Duration (Minutes) 15 Intensity 35 Patient Position Sitting Combined With Heat/Cold Hot Pack PT-OP-T Assessment and Plan Start: 08/06/17 17:30 Freq: Status: Active Protocol: Document 06/17/18 14:30 DCW (Rec: 06/17/18 15:11 DCW [id number]) Physical Therapy Assessment Impairments Impairments Functional Mobility Pain Posture ROM Soft Tissue Mobility Strength Tone Goals Six Impairment Shoulder ROM Residential Goal (LTG) Right shoulder ROM = Left shoulder ROM LTG Duration 05/06/18 Five Impairment Pt unable to lift 1/2 gallon of milk out of refrigerator with right arm Short Term Goal (STG) Pt to lift 1/2 gallon of milk with right arm without increased pain. STG Duration 04/05/18 Four Impairment Palpable muscle tone Cement Production Plant Operator Goal (LTG) Pt muscle tone grossly to mild levels of tone LTG Duration 05/06/18 Three Impairment Thoracic Spine ROM Short Term Goal (STG) Thoracic spine to lacking 10 degrees from neutral at full extension STG Duration Met Cement Production Plant Operator Goal (LTG) Thoracic spine to neutral at full extension LTG Duration 05/06/18 Two Impairment Pain Cement Production Plant Operator Goal (LTG) Pt to report decreased pain to a max of 4/10 LTG Duration 05/06/18 One Impairment Activity tolerance Residential Goal (LTG) Pt to tolerate gardening with no increased pain for three hours LTG Duration 05/07/18 Assessment Summary Assessment Pt had no complaints during treatment, reduced tone in paraspinals. Physical Therapy Plan Frequency and Duration Frequency of Treatment 1x/Week Duration of Treatment 12 weeks Plan of Care Start Date 06/03/18 Plan of Care End Date 08/26/18 Therapeutic Interventions Therapeutic Interventions Aquatic Therapy Home Exercise Program Joint Mobilizations Manual Therapy Neuromuscular Re-education Self-Care/Home Management Soft Tissue Mobilization Therapeutic Exercises Modalities Cold Pack/Ice Massage Electric Stimulation Hot Packs Next Visit Focus/Plan Next Note Type Progress Note Next Visit Plan Manual therapy and TherEx to limit further Kyphosis, Shoulder strengthening and ROM
--- NOTE | 2018-06-26 16:46 | PT.OTN ---
Current Diagnoses Scoliosis, unspecified (06/26/18) Spondylosis without myelopathy or radiculopathy, cervical region (06/26/18) Other intervertebral disc degeneration, lumbosacral region (06/26/18) Pain in thoracic spine (06/26/18) Physical Therapy Treatment Note PT-OP-A Visit Information Start: 08/06/17 17:30 Freq: Status: Active Protocol: Document 06/26/18 16:00 DCW (Rec: 06/26/18 16:46 DCW [id number]) Out-Patient Physical Therapy Visit Information Visit Information Visit Type Treatment Note Visit Start Time 16:00 Visit Stop Time 16:55 Total Visit Minutes 55 Visit Number 50 Number of ASSET LIABILITY ANALYST Visits 0 Evaluation Information Evaluation Date 05/28/17 PT-OP-B Current Condition Start: 10/04/17 14:21 Freq: Status: Active Protocol: Document 12/10/17 13:45 DCW (Rec: 12/10/17 13:56 DCW [id number]) Current Condition History of Current Condition History of Current Condition Please see patient's chart in Therapy Source for complete history and initial evaluation Current Functional Impairments (Reported) Functional Limitations- Recreation/ Pt unable to tolerate yard- Hobbies work more than 60 minutes without significant increased pain in her shoulders. PT-OP-C Subjective Start: 08/06/17 17:30 Freq: Status: Active Protocol: Document 06/26/18 16:00 DCW (Rec: 06/26/18 16:46 DCW [id number]) OP-PT Subjective Patient Comments Patient Comments Pt arrived to her PT appointment on Sunday, however after reporting her BP had been high earlier in the day, it was measured at 186/88, and she was sent home. After following-up at her physician' s office, her medication was adjusted, and she returns today to make up her missed appointment, with a more reasonable BP of 145/80 PT-OP-F Manual Assessment Start: 10/04/17 14:21 Freq: Status: Active Protocol: Document 03/05/18 16:00 DCW (Rec: 03/05/18 16:15 DCW [id number]) Manual Assessments Soft Tissue Assessment Soft Tissue Mobility Assessment Moderate tone in Bilateral thoracic and lumbar paraspinals, piriformis, iliopsoas, and quadratus lumborum. Mild tone in bilateral hamstrings and adductor vinod PT-OP-J Posture/Palpation/Skin Start: 10/04/17 14:21 Freq: Status: Active Protocol: Document 03/05/18 16:00 DCW (Rec: 03/05/18 16:14 DCW [id number]) Posture Evaluation Position Standing Head/C-Spine Posture Forward Head T-Spine Posture Flexible Scoliosis on (L) Increased Kyphosis L-Spine Posture Flexible Scoliosis on (R) Pelvis Posture (L) Iliac Crest Superior Hip Posture (L) Flexed (R) Flexed PT-OP-K Range of Motion Start: 10/04/17 14:21 Freq: Status: Active Protocol: Document 03/05/18 16:00 DCW (Rec: 03/05/18 16:14 DCW [id number]) Lumbar Spine Range of Motion Lumbar Spine Active Degrees Testing Position Standing Comments Max extension, pt is forward flexed 3? at her thoracic spine Shoulder Goniometric Range of Motion Shoulder Measured in Degrees Left Active Shoulder ROM WFL No Testing Position Sitting Flexion 135 Abduction 134 External Rotation at 0 degrees Abduction 54 Right Active Shoulder ROM WFL No Testing Position Sitting Flexion 128 Abduction 118 External Rotation at 0 degrees Abduction 52 PT-OP-M Strength Start: 10/04/17 14:21 Freq: Status: Active Protocol: Document 03/05/18 16:00 DCW (Rec: 03/05/18 16:14 DCW [id number]) Shoulder Strength Shoulder Manual Muscle Testing Right Flexion 4 Good Abduction (C5) 4+ Good+ External Rotation 4 Good Internal Rotation 5 Normal Left Flexion 4+ Good+ Abduction (C5) 4+ Good+ External Rotation 4+ Good+ Internal Rotation 5 Normal PT-OP-Q Treatments Start: 08/06/17 17:30 Freq: Status: Active Protocol: Document 06/26/18 16:00 DCW (Rec: 06/26/18 16:46 DCW [id number]) Cardio Equipment Upper Body Ergometer (UBE) Duration (Minutes) 5 RPM 60 Seat Position 12 Height 3 Therapeutic Exercises Supine Exercises 1 Supine Exercise Name Supine on Towel roll at T10-12 Side bilateral Comments increase thoracolumbar extension Sitting Exercises PROM Abduction Sitting Exercise Name Pullies GH Abduction PROM Flexion Sitting Exercise Name Pullies GH flexion Side bilateral Manual Therapy Treatment Soft Tissue Mobilization 3 Body Location Quadratus Lumborum Mobilization Type Myofascial Release Strumming Sustained Pressure Intensity/Depth Moderate Body Position Sidelying 2 Body Location Glute Med Mobilization Type Strumming Sustained Pressure Intensity/Depth Moderate Body Position Sidelying 1 Body Location Lumbar Erector Spinae Mobilization Type Myofascial Release Sustained Pressure Intensity/Depth Moderate Body Position Sidelying Joint Mobilizations 1 Joint Thoracic Spine Direction P->A Grade III Body Position Sidelying Manual Traction Lumbar Details Hip/Iliac crest depression Body Position Sidelying PT-OP-R Modalities Start: 08/06/17 17:30 Freq: Status: Active Protocol: Document 06/26/18 16:00 DCW (Rec: 06/26/18 16:46 DCW [id number]) Electric Stimulation Electric Stimulation Interferential Current (IFC) Body Location Lumbar Spine Duration (Minutes) 15 Intensity 33 Patient Position Sitting Combined With Heat/Cold Hot Pack PT-OP-T Assessment and Plan Start: 08/06/17 17:30 Freq: Status: Active Protocol: Document 06/26/18 16:00 DCW (Rec: 06/26/18 16:46 DCW [id number]) Physical Therapy Assessment Impairments Impairments Functional Mobility Pain Posture ROM Soft Tissue Mobility Strength Tone Goals Six Impairment Shoulder ROM Nursing Home Goal (LTG) Right shoulder ROM = Left shoulder ROM LTG Duration 05/06/18 Five Impairment Pt unable to lift 1/2 gallon of milk out of refrigerator with right arm Short Term Goal (STG) Pt to lift 1/2 gallon of milk with right arm without increased pain. STG Duration 04/05/18 Four Impairment Palpable muscle tone Forest Fire Equipment Operator Goal (LTG) Pt muscle tone grossly to mild levels of tone LTG Duration 05/06/18 Three Impairment Thoracic Spine ROM Short Term Goal (STG) Thoracic spine to lacking 10 degrees from neutral at full extension STG Duration Met Forest Fire Equipment Operator Goal (LTG) Thoracic spine to neutral at full extension LTG Duration 05/06/18 Two Impairment Pain Forest Fire Equipment Operator Goal (LTG) Pt to report decreased pain to a max of 4/10 LTG Duration 05/06/18 One Impairment Activity tolerance Nursing Home Goal (LTG) Pt to tolerate gardening with no increased pain for three hours LTG Duration 05/07/18 Assessment Summary Assessment Pt beginning to increase kyphosis again for unknown reasons, reported she has been feeling like her ribs are getting lower again and about to start rubbing on her pelvis. Focus continued treatment on improving posture and decreasing kyphosis. Physical Therapy Plan Frequency and Duration Frequency of Treatment 1x/Week Duration of Treatment 12 weeks Plan of Care Start Date 06/03/18 Plan of Care End Date 08/26/18 Therapeutic Interventions Therapeutic Interventions Aquatic Therapy Home Exercise Program Joint Mobilizations Manual Therapy Neuromuscular Re-education Self-Care/Home Management Soft Tissue Mobilization Therapeutic Exercises Modalities Cold Pack/Ice Massage Electric Stimulation Hot Packs Next Visit Focus/Plan Next Note Type Treatment Note Next Visit Plan Manual therapy and TherEx to limit further Kyphosis, Shoulder strengthening and ROM
--- NOTE | 2018-07-01 11:14 | PT.OTN ---
Current Diagnoses Scoliosis, unspecified (07/01/18) Spondylosis without myelopathy or radiculopathy, cervical region (07/01/18) Other intervertebral disc degeneration, lumbosacral region (07/01/18) Pain in thoracic spine (07/01/18) Physical Therapy Treatment Note PT-OP-A Visit Information Start: 08/06/17 17:30 Freq: Status: Active Protocol: Document 07/01/18 10:30 DCW (Rec: 07/01/18 11:14 DCW [id number]) Out-Patient Physical Therapy Visit Information Visit Information Visit Type Treatment Note Visit Start Time 10:30 Visit Stop Time 11:25 Total Visit Minutes 55 Visit Number 51 Number of FANS CLERK Visits 0 Evaluation Information Evaluation Date 05/28/17 PT-OP-B Current Condition Start: 10/04/17 14:21 Freq: Status: Active Protocol: Document 12/10/17 13:45 DCW (Rec: 12/10/17 13:56 DCW [id number]) Current Condition History of Current Condition History of Current Condition Please see patient's chart in Therapy Source for complete history and initial evaluation Current Functional Impairments (Reported) Functional Limitations- Recreation/ Pt unable to tolerate yard- Hobbies work more than 60 minutes without significant increased pain in her shoulders. PT-OP-C Subjective Start: 08/06/17 17:30 Freq: Status: Active Protocol: Document 07/01/18 10:30 DCW (Rec: 07/01/18 11:14 DCW [id number]) OP-PT Subjective Patient Comments Patient Comments Pt reports that her right shoulder was bothering her this morning, but her back seems to be reasonably pain- free today. Well, no worse than normal at least. PT-OP-F Manual Assessment Start: 10/04/17 14:21 Freq: Status: Active Protocol: Document 03/05/18 16:00 DCW (Rec: 03/05/18 16:15 DCW [id number]) Manual Assessments Soft Tissue Assessment Soft Tissue Mobility Assessment Moderate tone in Bilateral thoracic and lumbar paraspinals, piriformis, iliopsoas, and quadratus lumborum. Mild tone in bilateral hamstrings and adductor vinod PT-OP-J Posture/Palpation/Skin Start: 10/04/17 14:21 Freq: Status: Active Protocol: Document 03/05/18 16:00 DCW (Rec: 03/05/18 16:14 DCW [id number]) Posture Evaluation Position Standing Head/C-Spine Posture Forward Head T-Spine Posture Flexible Scoliosis on (L) Increased Kyphosis L-Spine Posture Flexible Scoliosis on (R) Pelvis Posture (L) Iliac Crest Superior Hip Posture (L) Flexed (R) Flexed PT-OP-K Range of Motion Start: 10/04/17 14:21 Freq: Status: Active Protocol: Document 03/05/18 16:00 DCW (Rec: 03/05/18 16:14 DCW [id number]) Lumbar Spine Range of Motion Lumbar Spine Active Degrees Testing Position Standing Comments Max extension, pt is forward flexed 3? at her thoracic spine Shoulder Goniometric Range of Motion Shoulder Measured in Degrees Left Active Shoulder ROM WFL No Testing Position Sitting Flexion 135 Abduction 134 External Rotation at 0 degrees Abduction 54 Right Active Shoulder ROM WFL No Testing Position Sitting Flexion 128 Abduction 118 External Rotation at 0 degrees Abduction 52 PT-OP-M Strength Start: 10/04/17 14:21 Freq: Status: Active Protocol: Document 03/05/18 16:00 DCW (Rec: 03/05/18 16:14 DCW [id number]) Shoulder Strength Shoulder Manual Muscle Testing Right Flexion 4 Good Abduction (C5) 4+ Good+ External Rotation 4 Good Internal Rotation 5 Normal Left Flexion 4+ Good+ Abduction (C5) 4+ Good+ External Rotation 4+ Good+ Internal Rotation 5 Normal PT-OP-Q Treatments Start: 08/06/17 17:30 Freq: Status: Active Protocol: Document 07/01/18 10:30 DCW (Rec: 07/01/18 11:14 DCW [id number]) Cardio Equipment Upper Body Ergometer (UBE) Duration (Minutes) 5 RPM 60 Seat Position 12 Height 3 Therapeutic Exercises Supine Exercises Shoulder Flexion Supine Exercise Name Flex with wand Side bilateral Resistance 5# Equipment Used wand Comments Pain-free ROM 1 Supine Exercise Name Supine on Towel roll at T10-12 Side bilateral Comments increase thoracolumbar extension Sitting Exercises PROM Abduction Sitting Exercise Name Pullies GH Abduction PROM Flexion Sitting Exercise Name Pullies GH flexion Side bilateral Standing Exercises Rows Standing Exercise Name Rows Side bilateral Resistance Lv 3 Equipment Used T-band Shoulder Extension Standing Exercise Name Extension Side bilateral Resistance Lv 3 Equipment Used T-band Manual Therapy Treatment Soft Tissue Mobilization 3 Body Location Quadratus Lumborum Mobilization Type Myofascial Release Strumming Sustained Pressure Intensity/Depth Moderate Body Position Sidelying 2 Body Location Glute Med Mobilization Type Strumming Sustained Pressure Intensity/Depth Moderate Body Position Sidelying 1 Body Location Lumbar Erector Spinae Mobilization Type Myofascial Release Sustained Pressure Intensity/Depth Moderate Body Position Sidelying Joint Mobilizations 1 Joint Thoracic Spine Direction P->A Grade III Body Position Sidelying Manual Traction Lumbar Details Hip/Iliac crest depression Body Position Sidelying PT-OP-R Modalities Start: 08/06/17 17:30 Freq: Status: Active Protocol: Document 07/01/18 10:30 DCW (Rec: 07/01/18 11:14 DCW [id number]) Electric Stimulation Electric Stimulation Interferential Current (IFC) Body Location Lumbar Spine Duration (Minutes) 15 Intensity 35 Patient Position Sitting Combined With Heat/Cold Hot Pack PT-OP-T Assessment and Plan Start: 08/06/17 17:30 Freq: Status: Active Protocol: Document 07/01/18 10:30 DCW (Rec: 07/01/18 11:14 DCW [id number]) Physical Therapy Assessment Impairments Impairments Functional Mobility Pain Posture ROM Soft Tissue Mobility Strength Tone Goals Six Impairment Shoulder ROM Welding Process Specialist Goal (LTG) Right shoulder ROM = Left shoulder ROM LTG Duration 05/06/18 Five Impairment Pt unable to lift 1/2 gallon of milk out of refrigerator with right arm Short Term Goal (STG) Pt to lift 1/2 gallon of milk with right arm without increased pain. STG Duration 04/05/18 Four Impairment Palpable muscle tone Residential Goal (LTG) Pt muscle tone grossly to mild levels of tone LTG Duration 05/06/18 Three Impairment Thoracic Spine ROM Short Term Goal (STG) Thoracic spine to lacking 10 degrees from neutral at full extension STG Duration Met Residential Goal (LTG) Thoracic spine to neutral at full extension LTG Duration 05/06/18 Two Impairment Pain Residential Goal (LTG) Pt to report decreased pain to a max of 4/10 LTG Duration 05/06/18 One Impairment Activity tolerance Residential Goal (LTG) Pt to tolerate gardening with no increased pain for three hours LTG Duration 05/07/18 Assessment Summary Assessment Pt improved from last week, no longer complaining about increased rib pain. Pt is noticing increased should stiffness today, focused a little more on shoulder rehab during today's session. Physical Therapy Plan Frequency and Duration Frequency of Treatment 1x/Week Duration of Treatment 12 weeks Plan of Care Start Date 06/03/18 Plan of Care End Date 08/26/18 Therapeutic Interventions Therapeutic Interventions Aquatic Therapy Home Exercise Program Joint Mobilizations Manual Therapy Neuromuscular Re-education Self-Care/Home Management Soft Tissue Mobilization Therapeutic Exercises Modalities Cold Pack/Ice Massage Electric Stimulation Hot Packs Next Visit Focus/Plan Next Note Type Treatment Note Next Visit Plan Manual therapy and TherEx to limit further Kyphosis, Shoulder strengthening and ROM
--- NOTE | 2018-07-24 15:13 | PT.OTN ---
Current Diagnoses Scoliosis, unspecified (07/24/18) Spondylosis without myelopathy or radiculopathy, cervical region (07/24/18) Other intervertebral disc degeneration, lumbosacral region (07/24/18) Pain in thoracic spine (07/24/18) Physical Therapy Treatment Note PT-OP-A Visit Information Start: 08/06/17 17:30 Freq: Status: Active Protocol: Document 07/24/18 14:30 DCW (Rec: 07/24/18 15:12 DCW [id number]) Out-Patient Physical Therapy Visit Information Visit Information Visit Type Treatment Note Visit Start Time 14:30 Visit Stop Time 15:25 Total Visit Minutes 55 Visit Number 52 Number of PLC PROGRAMMER Visits 0 Evaluation Information Evaluation Date 05/28/17 PT-OP-B Current Condition Start: 10/04/17 14:21 Freq: Status: Active Protocol: Document 12/10/17 13:45 DCW (Rec: 12/10/17 13:56 DCW [id number]) Current Condition History of Current Condition History of Current Condition Please see patient's chart in Therapy Source for complete history and initial evaluation Current Functional Impairments (Reported) Functional Limitations- Recreation/ Pt unable to tolerate yard- Hobbies work more than 60 minutes without significant increased pain in her shoulders. PT-OP-C Subjective Start: 08/06/17 17:30 Freq: Status: Active Protocol: Document 07/24/18 14:30 DCW (Rec: 07/24/18 15:12 DCW [id number]) OP-PT Subjective Patient Comments Patient Comments It's always a little worse when I'm not able to get in here regularly. PT-OP-F Manual Assessment Start: 10/04/17 14:21 Freq: Status: Active Protocol: Document 03/05/18 16:00 DCW (Rec: 03/05/18 16:15 DCW [id number]) Manual Assessments Soft Tissue Assessment Soft Tissue Mobility Assessment Moderate tone in Bilateral thoracic and lumbar paraspinals, piriformis, iliopsoas, and quadratus lumborum. Mild tone in bilateral hamstrings and adductor vinod PT-OP-J Posture/Palpation/Skin Start: 10/04/17 14:21 Freq: Status: Active Protocol: Document 03/05/18 16:00 DCW (Rec: 03/05/18 16:14 DCW [id number]) Posture Evaluation Position Standing Head/C-Spine Posture Forward Head T-Spine Posture Flexible Scoliosis on (L) Increased Kyphosis L-Spine Posture Flexible Scoliosis on (R) Pelvis Posture (L) Iliac Crest Superior Hip Posture (L) Flexed (R) Flexed PT-OP-K Range of Motion Start: 10/04/17 14:21 Freq: Status: Active Protocol: Document 03/05/18 16:00 DCW (Rec: 03/05/18 16:14 DCW [id number]) Lumbar Spine Range of Motion Lumbar Spine Active Degrees Testing Position Standing Comments Max extension, pt is forward flexed 3? at her thoracic spine Shoulder Goniometric Range of Motion Shoulder Measured in Degrees Left Active Shoulder ROM WFL No Testing Position Sitting Flexion 135 Abduction 134 External Rotation at 0 degrees Abduction 54 Right Active Shoulder ROM WFL No Testing Position Sitting Flexion 128 Abduction 118 External Rotation at 0 degrees Abduction 52 PT-OP-M Strength Start: 10/04/17 14:21 Freq: Status: Active Protocol: Document 03/05/18 16:00 DCW (Rec: 03/05/18 16:14 DCW [id number]) Shoulder Strength Shoulder Manual Muscle Testing Right Flexion 4 Good Abduction (C5) 4+ Good+ External Rotation 4 Good Internal Rotation 5 Normal Left Flexion 4+ Good+ Abduction (C5) 4+ Good+ External Rotation 4+ Good+ Internal Rotation 5 Normal PT-OP-Q Treatments Start: 08/06/17 17:30 Freq: Status: Active Protocol: Document 07/24/18 14:30 DCW (Rec: 07/24/18 15:12 DCW [id number]) Cardio Equipment Upper Body Ergometer (UBE) Duration (Minutes) 5 RPM 60 Seat Position 12 Height 3 Therapeutic Exercises Supine Exercises Serratus Punch Supine Exercise Name Serratus anterior punch with wand Side bilateral Resistance 5# Equipment Used wand Shoulder Flexion Supine Exercise Name Flex with wand Side bilateral Resistance 5# Equipment Used wand Comments Pain-free ROM 1 Supine Exercise Name Supine on Towel roll at T10-12 Side bilateral Comments increase thoracolumbar extension Standing Exercises Rows Standing Exercise Name Rows Side bilateral Resistance Lv 3 Equipment Used T-band Shoulder Extension Standing Exercise Name Extension Side bilateral Resistance Lv 3 Equipment Used T-band Manual Therapy Treatment Soft Tissue Mobilization 3 Body Location Quadratus Lumborum Mobilization Type Myofascial Release Strumming Sustained Pressure Intensity/Depth Moderate Body Position Sidelying 2 Body Location Glute Med Mobilization Type Strumming Sustained Pressure Intensity/Depth Moderate Body Position Sidelying 1 Body Location Lumbar Erector Spinae Mobilization Type Myofascial Release Sustained Pressure Intensity/Depth Moderate Body Position Sidelying Joint Mobilizations 1 Joint Thoracic Spine Direction P->A Grade III Body Position Sidelying Manual Traction Lumbar Details Hip/Iliac crest depression Body Position Sidelying PT-OP-R Modalities Start: 08/06/17 17:30 Freq: Status: Active Protocol: Document 07/24/18 14:30 DCW (Rec: 07/24/18 15:12 DCW [id number]) Electric Stimulation Electric Stimulation Interferential Current (IFC) Body Location Lumbar Spine Duration (Minutes) 15 Intensity 36 Patient Position Sitting Combined With Heat/Cold Hot Pack PT-OP-T Assessment and Plan Start: 08/06/17 17:30 Freq: Status: Active Protocol: Document 07/24/18 14:30 DCW (Rec: 07/24/18 15:12 DCW [id number]) Physical Therapy Assessment Impairments Impairments Functional Mobility Pain Posture ROM Soft Tissue Mobility Strength Tone Goals Six Impairment Shoulder ROM Custodial Goal (LTG) Right shoulder ROM = Left shoulder ROM LTG Duration 05/06/18 Five Impairment Pt unable to lift 1/2 gallon of milk out of refrigerator with right arm Short Term Goal (STG) Pt to lift 1/2 gallon of milk with right arm without increased pain. STG Duration 04/05/18 Four Impairment Palpable muscle tone Real Estate Manager Goal (LTG) Pt muscle tone grossly to mild levels of tone LTG Duration 05/06/18 Three Impairment Thoracic Spine ROM Short Term Goal (STG) Thoracic spine to lacking 10 degrees from neutral at full extension STG Duration Met Custodial Goal (LTG) Thoracic spine to neutral at full extension LTG Duration 05/06/18 Two Impairment Pain Custodial Goal (LTG) Pt to report decreased pain to a max of 4/10 LTG Duration 05/06/18 One Impairment Activity tolerance Real Estate Manager Goal (LTG) Pt to tolerate gardening with no increased pain for three hours LTG Duration 05/07/18 Assessment Summary Assessment Pt did well today, especially considering she has not been in to therapy for the past three weeks, no increase in tone along paraspinals. Physical Therapy Plan Frequency and Duration Frequency of Treatment 1x/Week Duration of Treatment 12 weeks Plan of Care Start Date 06/03/18 Plan of Care End Date 08/26/18 Therapeutic Interventions Therapeutic Interventions Aquatic Therapy Home Exercise Program Joint Mobilizations Manual Therapy Neuromuscular Re-education Self-Care/Home Management Soft Tissue Mobilization Therapeutic Exercises Modalities Cold Pack/Ice Massage Electric Stimulation Hot Packs Next Visit Focus/Plan Next Note Type Treatment Note Next Visit Plan Manual therapy and TherEx to limit further Kyphosis, Shoulder strengthening and ROM
--- NOTE | 2018-07-30 17:36 | PT.OTN ---
Current Diagnoses Scoliosis, unspecified (07/30/18) Spondylosis without myelopathy or radiculopathy, cervical region (07/30/18) Other intervertebral disc degeneration, lumbosacral region (07/30/18) Pain in thoracic spine (07/30/18) Physical Therapy Treatment Note PT-OP-A Visit Information Start: 08/06/17 17:30 Freq: Status: Active Protocol: Document 07/30/18 14:30 DCW (Rec: 07/30/18 17:36 DCW [id number]) Out-Patient Physical Therapy Visit Information Visit Information Visit Type Treatment Note Visit Start Time 14:30 Visit Stop Time 15:25 Total Visit Minutes 55 Visit Number 53 Number of CIVIL ENGINEERING PROJECT MANAGER Visits 0 Evaluation Information Evaluation Date 05/28/17 PT-OP-B Current Condition Start: 10/04/17 14:21 Freq: Status: Active Protocol: Document 12/10/17 13:45 DCW (Rec: 12/10/17 13:56 DCW [id number]) Current Condition History of Current Condition History of Current Condition Please see patient's chart in Therapy Source for complete history and initial evaluation Current Functional Impairments (Reported) Functional Limitations- Recreation/ Pt unable to tolerate yard- Hobbies work more than 60 minutes without significant increased pain in her shoulders. PT-OP-C Subjective Start: 08/06/17 17:30 Freq: Status: Active Protocol: Document 07/30/18 14:30 DCW (Rec: 07/30/18 17:36 DCW [id number]) OP-PT Subjective Patient Comments Patient Comments Pt reports she has spent the past two days gardening and moving dirt, and other than being tired, she does not feel like her pain has increased, which she takes as a good sign . PT-OP-F Manual Assessment Start: 10/04/17 14:21 Freq: Status: Active Protocol: Document 03/05/18 16:00 DCW (Rec: 03/05/18 16:15 DCW [id number]) Manual Assessments Soft Tissue Assessment Soft Tissue Mobility Assessment Moderate tone in Bilateral thoracic and lumbar paraspinals, piriformis, iliopsoas, and quadratus lumborum. Mild tone in bilateral hamstrings and adductor vinod PT-OP-J Posture/Palpation/Skin Start: 10/04/17 14:21 Freq: Status: Active Protocol: Document 03/05/18 16:00 DCW (Rec: 03/05/18 16:14 DCW [id number]) Posture Evaluation Position Standing Head/C-Spine Posture Forward Head T-Spine Posture Flexible Scoliosis on (L) Increased Kyphosis L-Spine Posture Flexible Scoliosis on (R) Pelvis Posture (L) Iliac Crest Superior Hip Posture (L) Flexed (R) Flexed PT-OP-K Range of Motion Start: 10/04/17 14:21 Freq: Status: Active Protocol: Document 03/05/18 16:00 DCW (Rec: 03/05/18 16:14 DCW [id number]) Lumbar Spine Range of Motion Lumbar Spine Active Degrees Testing Position Standing Comments Max extension, pt is forward flexed 3? at her thoracic spine Shoulder Goniometric Range of Motion Shoulder Measured in Degrees Left Active Shoulder ROM WFL No Testing Position Sitting Flexion 135 Abduction 134 External Rotation at 0 degrees Abduction 54 Right Active Shoulder ROM WFL No Testing Position Sitting Flexion 128 Abduction 118 External Rotation at 0 degrees Abduction 52 PT-OP-M Strength Start: 10/04/17 14:21 Freq: Status: Active Protocol: Document 03/05/18 16:00 DCW (Rec: 03/05/18 16:14 DCW [id number]) Shoulder Strength Shoulder Manual Muscle Testing Right Flexion 4 Good Abduction (C5) 4+ Good+ External Rotation 4 Good Internal Rotation 5 Normal Left Flexion 4+ Good+ Abduction (C5) 4+ Good+ External Rotation 4+ Good+ Internal Rotation 5 Normal PT-OP-Q Treatments Start: 08/06/17 17:30 Freq: Status: Active Protocol: Document 07/30/18 14:30 DCW (Rec: 07/30/18 17:36 DCW [id number]) Cardio Equipment Upper Body Ergometer (UBE) Duration (Minutes) 5 RPM 60 Seat Position 12 Height 3 Therapeutic Exercises Supine Exercises 1 Supine Exercise Name Supine on Towel roll at T10-12 Side bilateral Comments increase thoracolumbar extension Sitting Exercises PROM Abduction Sitting Exercise Name Pullies GH Abduction PROM Flexion Sitting Exercise Name Pullies GH flexion Side bilateral Standing Exercises Rows Standing Exercise Name Rows Side bilateral Resistance Lv 3 Equipment Used T-band Shoulder Extension Standing Exercise Name Extension Side bilateral Resistance Lv 3 Equipment Used T-band Manual Therapy Treatment Soft Tissue Mobilization 3 Body Location Quadratus Lumborum Mobilization Type Myofascial Release Strumming Sustained Pressure Intensity/Depth Moderate Body Position Sidelying 2 Body Location Glute Med Mobilization Type Strumming Sustained Pressure Intensity/Depth Moderate Body Position Sidelying 1 Body Location Lumbar Erector Spinae Mobilization Type Myofascial Release Sustained Pressure Intensity/Depth Moderate Body Position Sidelying Joint Mobilizations 1 Joint Thoracic Spine Direction P->A Grade III Body Position Sidelying Manual Traction Lumbar Details Hip/Iliac crest depression Body Position Sidelying PT-OP-R Modalities Start: 08/06/17 17:30 Freq: Status: Active Protocol: Document 07/30/18 14:30 DCW (Rec: 07/30/18 17:36 DCW [id number]) Electric Stimulation Electric Stimulation Interferential Current (IFC) Body Location Lumbar Spine Duration (Minutes) 15 Intensity 36 Patient Position Sitting Combined With Heat/Cold Hot Pack PT-OP-T Assessment and Plan Start: 08/06/17 17:30 Freq: Status: Active Protocol: Document 07/30/18 14:30 DCW (Rec: 07/30/18 17:36 DCW [id number]) Physical Therapy Assessment Impairments Impairments Functional Mobility Pain Posture ROM Soft Tissue Mobility Strength Tone Goals Six Impairment Shoulder ROM Claims Investigator Goal (LTG) Right shoulder ROM = Left shoulder ROM LTG Duration 05/06/18 Five Impairment Pt unable to lift 1/2 gallon of milk out of refrigerator with right arm Short Term Goal (STG) Pt to lift 1/2 gallon of milk with right arm without increased pain. STG Duration 04/05/18 Four Impairment Palpable muscle tone Snf Goal (LTG) Pt muscle tone grossly to mild levels of tone LTG Duration 05/06/18 Three Impairment Thoracic Spine ROM Short Term Goal (STG) Thoracic spine to lacking 10 degrees from neutral at full extension STG Duration Met Snf Goal (LTG) Thoracic spine to neutral at full extension LTG Duration 05/06/18 Two Impairment Pain Snf Goal (LTG) Pt to report decreased pain to a max of 4/10 LTG Duration 05/06/18 One Impairment Activity tolerance Snf Goal (LTG) Pt to tolerate gardening with no increased pain for three hours LTG Duration 05/07/18 Assessment Summary Assessment Pt continues to display decrease in tone along paraspinals and improved mobility. Physical Therapy Plan Frequency and Duration Frequency of Treatment 1x/Week Duration of Treatment 12 weeks Plan of Care Start Date 06/03/18 Plan of Care End Date 08/26/18 Therapeutic Interventions Therapeutic Interventions Aquatic Therapy Home Exercise Program Joint Mobilizations Manual Therapy Neuromuscular Re-education Self-Care/Home Management Soft Tissue Mobilization Therapeutic Exercises Modalities Cold Pack/Ice Massage Electric Stimulation Hot Packs Next Visit Focus/Plan Next Note Type Treatment Note Next Visit Plan Manual therapy and TherEx to limit further Kyphosis, Shoulder strengthening and ROM
--- NOTE | 2018-08-05 15:14 | PT.OTN ---
Current Diagnoses Scoliosis, unspecified (08/05/18) Spondylosis without myelopathy or radiculopathy, cervical region (08/05/18) Pain in thoracic spine (08/05/18) Physical Therapy Treatment Note PT-OP-A Visit Information Start: 08/06/17 17:30 Freq: Status: Active Protocol: Document 08/05/18 14:30 DCW (Rec: 08/05/18 15:13 DCW [id number]) Out-Patient Physical Therapy Visit Information Visit Information Visit Type Treatment Note Visit Start Time 14:30 Visit Stop Time 15:25 Total Visit Minutes 55 Visit Number 54 Number of MERCHANDISE DIRECTOR Visits 0 Evaluation Information Evaluation Date 05/28/17 PT-OP-B Current Condition Start: 10/04/17 14:21 Freq: Status: Active Protocol: Document 12/10/17 13:45 DCW (Rec: 12/10/17 13:56 DCW [id number]) Current Condition History of Current Condition History of Current Condition Please see patient's chart in Therapy Source for complete history and initial evaluation Current Functional Impairments (Reported) Functional Limitations- Recreation/ Pt unable to tolerate yard- Hobbies work more than 60 minutes without significant increased pain in her shoulders. PT-OP-C Subjective Start: 08/06/17 17:30 Freq: Status: Active Protocol: Document 08/05/18 14:30 DCW (Rec: 08/05/18 15:13 DCW [id number]) OP-PT Subjective Patient Comments Patient Comments Pt notes that he back is hurting more today. PT-OP-F Manual Assessment Start: 10/04/17 14:21 Freq: Status: Active Protocol: Document 03/05/18 16:00 DCW (Rec: 03/05/18 16:15 DCW [id number]) Manual Assessments Soft Tissue Assessment Soft Tissue Mobility Assessment Moderate tone in Bilateral thoracic and lumbar paraspinals, piriformis, iliopsoas, and quadratus lumborum. Mild tone in bilateral hamstrings and adductor vinod PT-OP-J Posture/Palpation/Skin Start: 10/04/17 14:21 Freq: Status: Active Protocol: Document 03/05/18 16:00 DCW (Rec: 03/05/18 16:14 DCW [id number]) Posture Evaluation Position Standing Head/C-Spine Posture Forward Head T-Spine Posture Flexible Scoliosis on (L) Increased Kyphosis L-Spine Posture Flexible Scoliosis on (R) Pelvis Posture (L) Iliac Crest Superior Hip Posture (L) Flexed (R) Flexed PT-OP-K Range of Motion Start: 10/04/17 14:21 Freq: Status: Active Protocol: Document 03/05/18 16:00 DCW (Rec: 03/05/18 16:14 DCW [id number]) Lumbar Spine Range of Motion Lumbar Spine Active Degrees Testing Position Standing Comments Max extension, pt is forward flexed 3? at her thoracic spine Shoulder Goniometric Range of Motion Shoulder Measured in Degrees Left Active Shoulder ROM WFL No Testing Position Sitting Flexion 135 Abduction 134 External Rotation at 0 degrees Abduction 54 Right Active Shoulder ROM WFL No Testing Position Sitting Flexion 128 Abduction 118 External Rotation at 0 degrees Abduction 52 PT-OP-M Strength Start: 10/04/17 14:21 Freq: Status: Active Protocol: Document 03/05/18 16:00 DCW (Rec: 03/05/18 16:14 DCW [id number]) Shoulder Strength Shoulder Manual Muscle Testing Right Flexion 4 Good Abduction (C5) 4+ Good+ External Rotation 4 Good Internal Rotation 5 Normal Left Flexion 4+ Good+ Abduction (C5) 4+ Good+ External Rotation 4+ Good+ Internal Rotation 5 Normal PT-OP-Q Treatments Start: 08/06/17 17:30 Freq: Status: Active Protocol: Document 08/05/18 14:30 DCW (Rec: 08/05/18 15:13 DCW [id number]) Cardio Equipment Upper Body Ergometer (UBE) Duration (Minutes) 5 RPM 60 Seat Position 12 Height 3 Therapeutic Exercises Supine Exercises 1 Supine Exercise Name Supine on Towel roll at T10-12 Side bilateral Comments increase thoracolumbar extension Sitting Exercises PROM Abduction Sitting Exercise Name Pullies GH Abduction PROM Flexion Sitting Exercise Name Pullies GH flexion Side bilateral Manual Therapy Treatment Soft Tissue Mobilization 3 Body Location Quadratus Lumborum Mobilization Type Myofascial Release Strumming Sustained Pressure Intensity/Depth Moderate Body Position Sidelying 2 Body Location Glute Med Mobilization Type Strumming Sustained Pressure Intensity/Depth Moderate Body Position Sidelying 1 Body Location Lumbar Erector Spinae Mobilization Type Myofascial Release Sustained Pressure Intensity/Depth Moderate Body Position Sidelying Joint Mobilizations 1 Joint Thoracic Spine Direction P->A Grade III Body Position Sidelying Manual Traction Lumbar Details Hip/Iliac crest depression Body Position Sidelying PT-OP-R Modalities Start: 08/06/17 17:30 Freq: Status: Active Protocol: Document 08/05/18 14:30 DCW (Rec: 08/05/18 15:13 DCW [id number]) Electric Stimulation Electric Stimulation Interferential Current (IFC) Body Location Lumbar Spine Duration (Minutes) 15 Intensity 34 Patient Position Sitting Combined With Heat/Cold Hot Pack PT-OP-T Assessment and Plan Start: 08/06/17 17:30 Freq: Status: Active Protocol: Document 08/05/18 14:30 DCW (Rec: 08/05/18 15:13 DCW [id number]) Physical Therapy Assessment Impairments Impairments Functional Mobility Pain Posture ROM Soft Tissue Mobility Strength Tone Goals Six Impairment Shoulder ROM Halfway Goal (LTG) Right shoulder ROM = Left shoulder ROM LTG Duration 05/06/18 Five Impairment Pt unable to lift 1/2 gallon of milk out of refrigerator with right arm Short Term Goal (STG) Pt to lift 1/2 gallon of milk with right arm without increased pain. STG Duration 04/05/18 Four Impairment Palpable muscle tone Halfway Goal (LTG) Pt muscle tone grossly to mild levels of tone LTG Duration 05/06/18 Three Impairment Thoracic Spine ROM Short Term Goal (STG) Thoracic spine to lacking 10 degrees from neutral at full extension STG Duration Met Recycling Coordinator Goal (LTG) Thoracic spine to neutral at full extension LTG Duration 05/06/18 Two Impairment Pain Recycling Coordinator Goal (LTG) Pt to report decreased pain to a max of 4/10 LTG Duration 05/06/18 One Impairment Activity tolerance Halfway Goal (LTG) Pt to tolerate gardening with no increased pain for three hours LTG Duration 05/07/18 Assessment Summary Assessment Pt similar to last week, despite her report of increased back pain today. Pt experiencing less pain/rubbing in ribs. Physical Therapy Plan Frequency and Duration Frequency of Treatment 1x/Week Duration of Treatment 12 weeks Plan of Care Start Date 06/03/18 Plan of Care End Date 08/26/18 Therapeutic Interventions Therapeutic Interventions Aquatic Therapy Home Exercise Program Joint Mobilizations Manual Therapy Neuromuscular Re-education Self-Care/Home Management Soft Tissue Mobilization Therapeutic Exercises Modalities Cold Pack/Ice Massage Electric Stimulation Hot Packs Next Visit Focus/Plan Next Note Type Progress Note Next Visit Plan Prog note to reassess and determine current level of function.
--- NOTE | 2018-08-19 15:15 | PT.OTN ---
Current Diagnoses Scoliosis, unspecified (08/05/18) Spondylosis without myelopathy or radiculopathy, cervical region (08/05/18) Pain in thoracic spine (08/05/18) Physical Therapy Treatment Note PT-OP-A Visit Information Start: 08/06/17 17:30 Freq: Status: Active Protocol: Document 08/19/18 14:30 DCW (Rec: 08/19/18 15:13 DCW [id number]) Out-Patient Physical Therapy Visit Information Visit Information Visit Type Progress Note Visit Start Time 14:30 Visit Stop Time 15:25 Total Visit Minutes 55 Visit Number 55 Number of SAFETY PERSON Visits 0 Evaluation Information Evaluation Date 05/28/17 PT-OP-B Current Condition Start: 10/04/17 14:21 Freq: Status: Active Protocol: Document 12/10/17 13:45 DCW (Rec: 12/10/17 13:56 DCW [id number]) Current Condition History of Current Condition History of Current Condition Please see patient's chart in Therapy Source for complete history and initial evaluation Current Functional Impairments (Reported) Functional Limitations- Recreation/ Pt unable to tolerate yard- Hobbies work more than 60 minutes without significant increased pain in her shoulders. PT-OP-C Subjective Start: 08/06/17 17:30 Freq: Status: Active Protocol: Document 08/19/18 14:30 DCW (Rec: 08/19/18 15:13 DCW [id number]) OP-PT Subjective Patient Comments Patient Comments Pt overall feeling pretty well , has had a long week with her being in the hospital for dehydration. PT-OP-F Manual Assessment Start: 10/04/17 14:21 Freq: Status: Active Protocol: Document 08/19/18 14:30 DCW (Rec: 08/19/18 14:48 DCW [id number]) Manual Assessments Soft Tissue Assessment Soft Tissue Mobility Assessment Moderate tone in Bilateral thoracic and lumbar paraspinals, piriformis, iliopsoas, and quadratus lumborum. Mild tone in bilateral hamstrings and adductor vinod PT-OP-J Posture/Palpation/Skin Start: 10/04/17 14:21 Freq: Status: Active Protocol: Document 08/19/18 14:30 DCW (Rec: 08/19/18 14:48 DCW [id number]) Posture Evaluation Position Standing Head/C-Spine Posture Forward Head T-Spine Posture Flexible Scoliosis on (L) Increased Kyphosis L-Spine Posture Flexible Scoliosis on (R) Pelvis Posture (L) Iliac Crest Superior Hip Posture (L) Flexed (R) Flexed Comments Posture Comments Pt's jorge with cues to stand as tall as possible: 5' PT-OP-K Range of Motion Start: 10/04/17 14:21 Freq: Status: Active Protocol: Document 08/19/18 14:30 DCW (Rec: 08/19/18 14:48 DCW [id number]) Lumbar Spine Range of Motion Lumbar Spine Active Degrees Testing Position Standing Comments Max extension, pt is forward flexed 3? at her thoracic spine Shoulder Goniometric Range of Motion Shoulder Measured in Degrees Left Active Shoulder ROM WFL No Testing Position Sitting Flexion 143 Abduction 130 External Rotation at 0 degrees Abduction 52 Right Active Shoulder ROM WFL No Testing Position Sitting Flexion 144 Abduction 124 External Rotation at 0 degrees Abduction 60 PT-OP-M Strength Start: 10/04/17 14:21 Freq: Status: Active Protocol: Document 08/19/18 14:30 DCW (Rec: 08/19/18 14:48 DCW [id number]) Shoulder Strength Shoulder Manual Muscle Testing Right Flexion 4 Good Abduction (C5) 4+ Good+ External Rotation 4 Good Internal Rotation 5 Normal Left Flexion 4+ Good+ Abduction (C5) 4+ Good+ External Rotation 4+ Good+ Internal Rotation 5 Normal PT-OP-Q Treatments Start: 08/06/17 17:30 Freq: Status: Active Protocol: Document 08/19/18 14:30 DCW (Rec: 08/19/18 15:13 DCW [id number]) Cardio Equipment Upper Body Ergometer (UBE) Duration (Minutes) 5 RPM 60 Seat Position 12 Height 3 Therapeutic Exercises Supine Exercises 1 Supine Exercise Name Supine on Towel roll at T10-12 Side bilateral Comments increase thoracolumbar extension Sitting Exercises PROM Abduction Sitting Exercise Name Pullies GH Abduction PROM Flexion Sitting Exercise Name Pullies GH flexion Side bilateral Manual Therapy Treatment Soft Tissue Mobilization 3 Body Location Quadratus Lumborum Mobilization Type Myofascial Release Strumming Sustained Pressure Intensity/Depth Moderate Body Position Sidelying 2 Body Location Glute Med Mobilization Type Strumming Sustained Pressure Intensity/Depth Moderate Body Position Sidelying 1 Body Location Lumbar Erector Spinae Mobilization Type Myofascial Release Sustained Pressure Intensity/Depth Moderate Body Position Sidelying Joint Mobilizations 1 Joint Thoracic Spine Direction P->A Grade III Body Position Sidelying Manual Traction Lumbar Details Hip/Iliac crest depression Body Position Sidelying Other Other Manual Treatments MMT, ROM, Posture testing PT-OP-R Modalities Start: 08/06/17 17:30 Freq: Status: Active Protocol: Document 08/19/18 14:30 DCW (Rec: 08/19/18 15:13 DCW [id number]) Electric Stimulation Electric Stimulation Interferential Current (IFC) Body Location Lumbar Spine Duration (Minutes) 15 Patient Position Sitting Combined With Heat/Cold Hot Pack PT-OP-T Assessment and Plan Start: 08/06/17 17:30 Freq: Status: Active Protocol: Document 08/19/18 14:30 DCW (Rec: 08/19/18 15:13 DCW [id number]) Physical Therapy Assessment Impairments Impairments Functional Mobility Pain Posture ROM Soft Tissue Mobility Strength Tone Goals Six Impairment Shoulder ROM Fci Goal (LTG) Right shoulder ROM = Left shoulder ROM LTG Duration 10/19/18 - Improving Five Impairment Pt unable to lift 1/2 gallon of milk out of refrigerator with right arm Short Term Goal (STG) Pt to lift 1/2 gallon of milk with right arm without increased pain. STG Duration Met Four Impairment Palpable muscle tone Fci Goal (LTG) Pt muscle tone grossly to mild levels of tone LTG Duration 10/19/18 - Improving Three Impairment Thoracic Spine ROM Short Term Goal (STG) Thoracic spine to lacking 10 degrees from neutral at full extension STG Duration Met Fci Goal (LTG) Thoracic spine to neutral at full extension LTG Duration 10/19/18 Two Impairment Pain Seed Service Advisor Goal (LTG) Pt to report decreased pain to a max of 4/10 LTG Duration 10/19/18 - Improving One Impairment Activity tolerance Seed Service Advisor Goal (LTG) Pt to tolerate gardening with no increased pain for three hours LTG Duration 10/19/18 - Improving Assessment Summary Assessment Pt posture and UE strength largely similar to last reassessment, however shoulder ROM has greatly improved. Pt will likely benefit from continued skilled therapy, however with continued plateau in posture, may be approaching plateau and discharge by next POC date. Physical Therapy Plan Frequency and Duration Frequency of Treatment 1x/Week Duration of Treatment 8 weeks Plan of Care Start Date 08/19/18 Plan of Care End Date 10/14/18 Therapeutic Interventions Therapeutic Interventions Aquatic Therapy Home Exercise Program Joint Mobilizations Manual Therapy Neuromuscular Re-education Self-Care/Home Management Soft Tissue Mobilization Therapeutic Exercises Modalities Cold Pack/Ice Massage Electric Stimulation Hot Packs Next Visit Focus/Plan Next Note Type Progress Note Next Visit Plan Prog note to reassess and determine current level of function.
--- NOTE | 2018-08-19 15:16 | PT.OPPOC ---
Current Diagnoses Scoliosis, unspecified (08/05/18) Spondylosis without myelopathy or radiculopathy, cervical region (08/05/18) Pain in thoracic spine (08/05/18) Provider Visit Care Team Role Provider Type Jia Sheridan MD Attending Provider Physician Family Provider Primary Care Provider Specialty: Family Practice Address: [address] [place] [address], [id number] Email: Plan Of Care PT-OP-T Assessment and Plan Start: 08/06/17 17:30 Freq: Status: Active Protocol: Document 08/19/18 14:30 DCW (Rec: 08/19/18 15:13 DCW [id number]) Physical Therapy Assessment Impairments Impairments Functional Mobility Pain Posture ROM Soft Tissue Mobility Strength Tone Goals Six Impairment Shoulder ROM Operational Risk Analyst Goal (LTG) Right shoulder ROM = Left shoulder ROM LTG Duration 10/19/18 - Improving Five Impairment Pt unable to lift 1/2 gallon of milk out of refrigerator with right arm Short Term Goal (STG) Pt to lift 1/2 gallon of milk with right arm without increased pain. STG Duration Met Four Impairment Palpable muscle tone Senior Care Goal (LTG) Pt muscle tone grossly to mild levels of tone LTG Duration 10/19/18 - Improving Three Impairment Thoracic Spine ROM Short Term Goal (STG) Thoracic spine to lacking 10 degrees from neutral at full extension STG Duration Met Senior Care Goal (LTG) Thoracic spine to neutral at full extension LTG Duration 10/19/18 Two Impairment Pain Operational Risk Analyst Goal (LTG) Pt to report decreased pain to a max of 4/10 LTG Duration 10/19/18 - Improving One Impairment Activity tolerance Operational Risk Analyst Goal (LTG) Pt to tolerate gardening with no increased pain for three hours LTG Duration 10/19/18 - Improving Assessment Summary Assessment Pt posture and UE strength largely similar to last reassessment, however shoulder ROM has greatly improved. Pt will likely benefit from continued skilled therapy, however with continued plateau in posture, may be approaching plateau and discharge by next POC date. Physical Therapy Plan Frequency and Duration Frequency of Treatment 1x/Week Duration of Treatment 8 weeks Plan of Care Start Date 08/19/18 Plan of Care End Date 10/14/18 Therapeutic Interventions Therapeutic Interventions Aquatic Therapy Home Exercise Program Joint Mobilizations Manual Therapy Neuromuscular Re-education Self-Care/Home Management Soft Tissue Mobilization Therapeutic Exercises Modalities Cold Pack/Ice Massage Electric Stimulation Hot Packs Next Visit Focus/Plan Next Note Type Progress Note Next Visit Plan Prog note to reassess and determine current level of function. Plan of Care Dates Plan of Care Start Date 08/19/18 Plan of Care End Date 10/14/18 Please Sign and Return: I have reviewed this Plan of Care and certify that the skilled therapy services above are required to meet the patient?s needs. Physician Signature Date Printed Name and Credentials Clinical Instructor Signature Printed Name and Credentials
--- NOTE | 2018-09-05 15:17 | PT.OTN ---
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/18) Pain in thoracic spine (09/05/18) Physical Therapy Treatment Note PT-OP-A Visit Information Start: 08/06/17 17:30 Freq: Status: Active Protocol: Document 09/05/18 14:30 DCW (Rec: 09/05/18 15:17 DCW [id number]) Out-Patient Physical Therapy Visit Information Visit Information Visit Type Treatment Note Visit Start Time 14:30 Visit Stop Time 15:25 Total Visit Minutes 55 Visit Number 56 Number of SEED BUYER Visits 0 Evaluation Information Evaluation Date 05/28/17 PT-OP-B Current Condition Start: 10/04/17 14:21 Freq: Status: Active Protocol: Document 12/10/17 13:45 DCW (Rec: 12/10/17 13:56 DCW [id number]) Current Condition History of Current Condition History of Current Condition Please see patient's chart in Therapy Source for complete history and initial evaluation Current Functional Impairments (Reported) Functional Limitations- Recreation/ Pt unable to tolerate yard- Hobbies work more than 60 minutes without significant increased pain in her shoulders. PT-OP-C Subjective Start: 08/06/17 17:30 Freq: Status: Active Protocol: Document 09/05/18 14:30 DCW (Rec: 09/05/18 15:17 DCW [id number]) OP-PT Subjective Patient Comments Patient Comments I'm glad to see you. I spent too much time out in the yard, and I'm still paying for it. My shoulders aren't too bad at the moment, but my back is really feeling it. PT-OP-F Manual Assessment Start: 10/04/17 14:21 Freq: Status: Active Protocol: Document 08/19/18 14:30 DCW (Rec: 08/19/18 14:48 DCW [id number]) Manual Assessments Soft Tissue Assessment Soft Tissue Mobility Assessment Moderate tone in Bilateral thoracic and lumbar paraspinals, piriformis, iliopsoas, and quadratus lumborum. Mild tone in bilateral hamstrings and adductor vinod PT-OP-J Posture/Palpation/Skin Start: 10/04/17 14:21 Freq: Status: Active Protocol: Document 08/19/18 14:30 DCW (Rec: 08/19/18 14:48 DCW [id number]) Posture Evaluation Position Standing Head/C-Spine Posture Forward Head T-Spine Posture Flexible Scoliosis on (L) Increased Kyphosis L-Spine Posture Flexible Scoliosis on (R) Pelvis Posture (L) Iliac Crest Superior Hip Posture (L) Flexed (R) Flexed Comments Posture Comments Pt's jorge with cues to stand as tall as possible: 5' PT-OP-K Range of Motion Start: 10/04/17 14:21 Freq: Status: Active Protocol: Document 08/19/18 14:30 DCW (Rec: 08/19/18 14:48 DCW [id number]) Lumbar Spine Range of Motion Lumbar Spine Active Degrees Testing Position Standing Comments Max extension, pt is forward flexed 3? at her thoracic spine Shoulder Goniometric Range of Motion Shoulder Measured in Degrees Left Active Shoulder ROM WFL No Testing Position Sitting Flexion 143 Abduction 130 External Rotation at 0 degrees Abduction 52 Right Active Shoulder ROM WFL No Testing Position Sitting Flexion 144 Abduction 124 External Rotation at 0 degrees Abduction 60 PT-OP-M Strength Start: 10/04/17 14:21 Freq: Status: Active Protocol: Document 08/19/18 14:30 DCW (Rec: 08/19/18 14:48 DCW [id number]) Shoulder Strength Shoulder Manual Muscle Testing Right Flexion 4 Good Abduction (C5) 4+ Good+ External Rotation 4 Good Internal Rotation 5 Normal Left Flexion 4+ Good+ Abduction (C5) 4+ Good+ External Rotation 4+ Good+ Internal Rotation 5 Normal PT-OP-Q Treatments Start: 08/06/17 17:30 Freq: Status: Active Protocol: Document 09/05/18 14:30 DCW (Rec: 09/05/18 15:17 DCW [id number]) Cardio Equipment Upper Body Ergometer (UBE) Duration (Minutes) 5 RPM 60 Seat Position 12 Height 3.5 Therapeutic Exercises Standing Exercises Rows Standing Exercise Name Rows Side bilateral Resistance Lv 3 Equipment Used T-band Shoulder Extension Standing Exercise Name Extension Side bilateral Resistance Lv 3 Equipment Used T-band Manual Therapy Treatment Soft Tissue Mobilization 3 Body Location Quadratus Lumborum Mobilization Type Myofascial Release Strumming Sustained Pressure Intensity/Depth Moderate Body Position Sidelying 2 Body Location Glute Med Mobilization Type Strumming Sustained Pressure Intensity/Depth Moderate Body Position Sidelying 1 Body Location Lumbar Erector Spinae Mobilization Type Myofascial Release Sustained Pressure Intensity/Depth Moderate Body Position Sidelying Joint Mobilizations 1 Joint Thoracic Spine Direction P->A Grade III Body Position Sidelying Manual Traction Lumbar Details Hip/Iliac crest depression Body Position Sidelying PT-OP-R Modalities Start: 08/06/17 17:30 Freq: Status: Active Protocol: Document 09/05/18 14:30 DCW (Rec: 09/05/18 15:17 DCW [id number]) Electric Stimulation Electric Stimulation Interferential Current (IFC) Body Location Lumbar Spine Duration (Minutes) 15 Patient Position Sitting Combined With Heat/Cold Hot Pack PT-OP-T Assessment and Plan Start: 08/06/17 17:30 Freq: Status: Active Protocol: Document 09/05/18 14:30 DCW (Rec: 09/05/18 15:17 DCW [id number]) Physical Therapy Assessment Impairments Impairments Functional Mobility Pain Posture ROM Soft Tissue Mobility Strength Tone Goals Six Impairment Shoulder ROM Fdc Goal (LTG) Right shoulder ROM = Left shoulder ROM LTG Duration 10/19/18 - Improving Five Impairment Pt unable to lift 1/2 gallon of milk out of refrigerator with right arm Short Term Goal (STG) Pt to lift 1/2 gallon of milk with right arm without increased pain. STG Duration Met Four Impairment Palpable muscle tone Fdc Goal (LTG) Pt muscle tone grossly to mild levels of tone LTG Duration 10/19/18 - Improving Three Impairment Thoracic Spine ROM Short Term Goal (STG) Thoracic spine to lacking 10 degrees from neutral at full extension STG Duration Met Fdc Goal (LTG) Thoracic spine to neutral at full extension LTG Duration 10/19/18 Two Impairment Pain Millinery Department Manager Goal (LTG) Pt to report decreased pain to a max of 4/10 LTG Duration 10/19/18 - Improving One Impairment Activity tolerance Millinery Department Manager Goal (LTG) Pt to tolerate gardening with no increased pain for three hours LTG Duration 10/19/18 - Improving Assessment Summary Assessment Pt tolerated treatment well today, reported reduced tenderness to palpation along lumbar paraspinals. Physical Therapy Plan Frequency and Duration Frequency of Treatment 1x/Week Duration of Treatment 8 weeks Plan of Care Start Date 08/19/18 Plan of Care End Date 10/14/18 Therapeutic Interventions Therapeutic Interventions Aquatic Therapy Home Exercise Program Joint Mobilizations Manual Therapy Neuromuscular Re-education Self-Care/Home Management Soft Tissue Mobilization Therapeutic Exercises Modalities Cold Pack/Ice Massage Electric Stimulation Hot Packs Next Visit Focus/Plan Next Note Type Treatment Note Next Visit Plan Manual therapy and TherEx to limit further Kyphosis, Shoulder strengthening and ROM
--- NOTE | 2018-09-09 15:11 | PT.OTN ---
Current Diagnoses Scoliosis, unspecified (09/09/18) Spondylosis without myelopathy or radiculopathy, cervical region (09/09/18) Pain in thoracic spine (09/09/18) Physical Therapy Treatment Note PT-OP-A Visit Information Start: 08/06/17 17:30 Freq: Status: Active Protocol: Document 09/09/18 14:30 DCW (Rec: 09/09/18 15:11 DCW [id number]) Out-Patient Physical Therapy Visit Information Visit Information Visit Type Treatment Note Visit Start Time 14:30 Visit Stop Time 15:25 Total Visit Minutes 55 Visit Number 57 Number of ASSEMBLER MUSICAL INSTRUMENTS Visits 0 Evaluation Information Evaluation Date 05/28/17 PT-OP-B Current Condition Start: 10/04/17 14:21 Freq: Status: Active Protocol: Document 12/10/17 13:45 DCW (Rec: 12/10/17 13:56 DCW [id number]) Current Condition History of Current Condition History of Current Condition Please see patient's chart in Therapy Source for complete history and initial evaluation Current Functional Impairments (Reported) Functional Limitations- Recreation/ Pt unable to tolerate yard- Hobbies work more than 60 minutes without significant increased pain in her shoulders. PT-OP-C Subjective Start: 08/06/17 17:30 Freq: Status: Active Protocol: Document 09/09/18 14:30 DCW (Rec: 09/09/18 15:11 DCW [id number]) OP-PT Subjective Patient Comments Patient Comments Today I've been changing winter blankets for summer blankets, and dragging down big containers out of storage, so my back isn't a whole lot better. PT-OP-F Manual Assessment Start: 10/04/17 14:21 Freq: Status: Active Protocol: Document 08/19/18 14:30 DCW (Rec: 08/19/18 14:48 DCW [id number]) Manual Assessments Soft Tissue Assessment Soft Tissue Mobility Assessment Moderate tone in Bilateral thoracic and lumbar paraspinals, piriformis, iliopsoas, and quadratus lumborum. Mild tone in bilateral hamstrings and adductor vinod PT-OP-J Posture/Palpation/Skin Start: 10/04/17 14:21 Freq: Status: Active Protocol: Document 08/19/18 14:30 DCW (Rec: 08/19/18 14:48 DCW [id number]) Posture Evaluation Position Standing Head/C-Spine Posture Forward Head T-Spine Posture Flexible Scoliosis on (L) Increased Kyphosis L-Spine Posture Flexible Scoliosis on (R) Pelvis Posture (L) Iliac Crest Superior Hip Posture (L) Flexed (R) Flexed Comments Posture Comments Pt's jorge with cues to stand as tall as possible: 5' PT-OP-K Range of Motion Start: 10/04/17 14:21 Freq: Status: Active Protocol: Document 08/19/18 14:30 DCW (Rec: 08/19/18 14:48 DCW [id number]) Lumbar Spine Range of Motion Lumbar Spine Active Degrees Testing Position Standing Comments Max extension, pt is forward flexed 3? at her thoracic spine Shoulder Goniometric Range of Motion Shoulder Measured in Degrees Left Active Shoulder ROM WFL No Testing Position Sitting Flexion 143 Abduction 130 External Rotation at 0 degrees Abduction 52 Right Active Shoulder ROM WFL No Testing Position Sitting Flexion 144 Abduction 124 External Rotation at 0 degrees Abduction 60 PT-OP-M Strength Start: 10/04/17 14:21 Freq: Status: Active Protocol: Document 08/19/18 14:30 DCW (Rec: 08/19/18 14:48 DCW [id number]) Shoulder Strength Shoulder Manual Muscle Testing Right Flexion 4 Good Abduction (C5) 4+ Good+ External Rotation 4 Good Internal Rotation 5 Normal Left Flexion 4+ Good+ Abduction (C5) 4+ Good+ External Rotation 4+ Good+ Internal Rotation 5 Normal PT-OP-Q Treatments Start: 08/06/17 17:30 Freq: Status: Active Protocol: Document 09/09/18 14:30 DCW (Rec: 09/09/18 15:11 DCW [id number]) Cardio Equipment Upper Body Ergometer (UBE) Duration (Minutes) 5 RPM 60 Seat Position 12 Height 3.5 Therapeutic Exercises Standing Exercises Rows Standing Exercise Name Rows Side bilateral Resistance Lv 3 Equipment Used T-band Shoulder Extension Standing Exercise Name Extension Side bilateral Resistance Lv 3 Equipment Used T-band Manual Therapy Treatment Soft Tissue Mobilization 3 Body Location Quadratus Lumborum Mobilization Type Myofascial Release Strumming Sustained Pressure Intensity/Depth Moderate Body Position Sidelying 2 Body Location Glute Med Mobilization Type Strumming Sustained Pressure Intensity/Depth Moderate Body Position Sidelying 1 Body Location Lumbar Erector Spinae Mobilization Type Myofascial Release Sustained Pressure Intensity/Depth Moderate Body Position Sidelying Joint Mobilizations 1 Joint Thoracic Spine Direction P->A Grade III Body Position Sidelying Manual Traction Lumbar Details Hip/Iliac crest depression Body Position Sidelying PT-OP-R Modalities Start: 08/06/17 17:30 Freq: Status: Active Protocol: Document 09/09/18 14:30 DCW (Rec: 09/09/18 15:11 DCW [id number]) Electric Stimulation Electric Stimulation Interferential Current (IFC) Body Location Lumbar Spine Duration (Minutes) 15 Patient Position Sitting Combined With Heat/Cold Hot Pack PT-OP-T Assessment and Plan Start: 08/06/17 17:30 Freq: Status: Active Protocol: Document 09/09/18 14:30 DCW (Rec: 09/09/18 15:11 DCW [id number]) Physical Therapy Assessment Impairments Impairments Functional Mobility Pain Posture ROM Soft Tissue Mobility Strength Tone Goals Six Impairment Shoulder ROM Batch Room Technician Goal (LTG) Right shoulder ROM = Left shoulder ROM LTG Duration 10/19/18 - Improving Five Impairment Pt unable to lift 1/2 gallon of milk out of refrigerator with right arm Short Term Goal (STG) Pt to lift 1/2 gallon of milk with right arm without increased pain. STG Duration Met Four Impairment Palpable muscle tone Fpc Goal (LTG) Pt muscle tone grossly to mild levels of tone LTG Duration 10/19/18 - Improving Three Impairment Thoracic Spine ROM Short Term Goal (STG) Thoracic spine to lacking 10 degrees from neutral at full extension STG Duration Met Fpc Goal (LTG) Thoracic spine to neutral at full extension LTG Duration 10/19/18 Two Impairment Pain Fpc Goal (LTG) Pt to report decreased pain to a max of 4/10 LTG Duration 10/19/18 - Improving One Impairment Activity tolerance Batch Room Technician Goal (LTG) Pt to tolerate gardening with no increased pain for three hours LTG Duration 10/19/18 - Improving Assessment Summary Assessment Pt presented with decreased paraspinal tone today, tolerated treatment well. Physical Therapy Plan Frequency and Duration Frequency of Treatment 1x/Week Duration of Treatment 8 weeks Plan of Care Start Date 08/19/18 Plan of Care End Date 10/14/18 Therapeutic Interventions Therapeutic Interventions Aquatic Therapy Home Exercise Program Joint Mobilizations Manual Therapy Neuromuscular Re-education Self-Care/Home Management Soft Tissue Mobilization Therapeutic Exercises Modalities Cold Pack/Ice Massage Electric Stimulation Hot Packs Next Visit Focus/Plan Next Note Type Treatment Note Next Visit Plan Manual therapy and TherEx to limit further Kyphosis, Shoulder strengthening and ROM
--- NOTE | 2018-09-16 15:10 | PT.OTN ---
Current Diagnoses Scoliosis, unspecified (09/16/18) Spondylosis without myelopathy or radiculopathy, cervical region (09/16/18) Pain in thoracic spine (09/16/18) Physical Therapy Treatment Note PT-OP-A Visit Information Start: 08/06/17 17:30 Freq: Status: Active Protocol: Document 09/16/18 14:30 DCW (Rec: 09/16/18 15:10 DCW [id number]) Out-Patient Physical Therapy Visit Information Visit Information Visit Type Treatment Note Visit Start Time 14:30 Visit Stop Time 15:25 Total Visit Minutes 55 Visit Number 58 Number of FUDGE CANDY MAKER Visits 0 Evaluation Information Evaluation Date 05/28/17 PT-OP-B Current Condition Start: 10/04/17 14:21 Freq: Status: Active Protocol: Document 12/10/17 13:45 DCW (Rec: 12/10/17 13:56 DCW [id number]) Current Condition History of Current Condition History of Current Condition Please see patient's chart in Therapy Source for complete history and initial evaluation Current Functional Impairments (Reported) Functional Limitations- Recreation/ Pt unable to tolerate yard- Hobbies work more than 60 minutes without significant increased pain in her shoulders. PT-OP-C Subjective Start: 08/06/17 17:30 Freq: Status: Active Protocol: Document 09/16/18 14:30 DCW (Rec: 09/16/18 15:10 DCW [id number]) OP-PT Subjective Patient Comments Patient Comments Pt notes she spent the past two days gardening, so she is more sore today than normal, but the pain is more of an over-all generalized soreness. PT-OP-F Manual Assessment Start: 10/04/17 14:21 Freq: Status: Active Protocol: Document 08/19/18 14:30 DCW (Rec: 08/19/18 14:48 DCW [id number]) Manual Assessments Soft Tissue Assessment Soft Tissue Mobility Assessment Moderate tone in Bilateral thoracic and lumbar paraspinals, piriformis, iliopsoas, and quadratus lumborum. Mild tone in bilateral hamstrings and adductor vinod PT-OP-J Posture/Palpation/Skin Start: 10/04/17 14:21 Freq: Status: Active Protocol: Document 08/19/18 14:30 DCW (Rec: 08/19/18 14:48 DCW [id number]) Posture Evaluation Position Standing Head/C-Spine Posture Forward Head T-Spine Posture Flexible Scoliosis on (L) Increased Kyphosis L-Spine Posture Flexible Scoliosis on (R) Pelvis Posture (L) Iliac Crest Superior Hip Posture (L) Flexed (R) Flexed Comments Posture Comments Pt's jorge with cues to stand as tall as possible: 5' PT-OP-K Range of Motion Start: 10/04/17 14:21 Freq: Status: Active Protocol: Document 08/19/18 14:30 DCW (Rec: 08/19/18 14:48 DCW [id number]) Lumbar Spine Range of Motion Lumbar Spine Active Degrees Testing Position Standing Comments Max extension, pt is forward flexed 3? at her thoracic spine Shoulder Goniometric Range of Motion Shoulder Left Active Shoulder ROM WFL No Testing Position Sitting Flexion 143 Abduction 130 External Rotation at 0 degrees Abduction 52 Right Active Shoulder ROM WFL No Testing Position Sitting Flexion 144 Abduction 124 External Rotation at 0 degrees Abduction 60 PT-OP-M Strength Start: 10/04/17 14:21 Freq: Status: Active Protocol: Document 08/19/18 14:30 DCW (Rec: 08/19/18 14:48 DCW [id number]) Shoulder Strength Shoulder Manual Muscle Testing Right Flexion 4 Good Abduction (C5) 4+ Good+ External Rotation 4 Good Internal Rotation 5 Normal Left Flexion 4+ Good+ Abduction (C5) 4+ Good+ External Rotation 4+ Good+ Internal Rotation 5 Normal PT-OP-Q Treatments Start: 08/06/17 17:30 Freq: Status: Active Protocol: Document 09/16/18 14:30 DCW (Rec: 09/16/18 15:10 DCW [id number]) Cardio Equipment Upper Body Ergometer (UBE) Duration (Minutes) 5 RPM 60 Seat Position 12 Height 3.5 Therapeutic Exercises Supine Exercises 1 Supine Exercise Name Supine on Towel roll at T10-12 Side bilateral Comments increase thoracolumbar extension Sitting Exercises PROM Abduction Sitting Exercise Name Pullies GH Abduction PROM Flexion Sitting Exercise Name Pullies GH flexion Side bilateral Standing Exercises Rows Standing Exercise Name Rows Side bilateral Resistance Lv 3 Equipment Used T-band Shoulder Extension Standing Exercise Name Extension Side bilateral Resistance Lv 3 Equipment Used T-band Manual Therapy Treatment Soft Tissue Mobilization 3 Body Location Quadratus Lumborum Mobilization Type Myofascial Release Strumming Sustained Pressure Intensity/Depth Moderate Body Position Sidelying 2 Body Location Glute Med Mobilization Type Strumming Sustained Pressure Intensity/Depth Moderate Body Position Sidelying 1 Body Location Lumbar Erector Spinae Mobilization Type Myofascial Release Sustained Pressure Intensity/Depth Moderate Body Position Sidelying Joint Mobilizations 1 Joint Thoracic Spine Direction P->A Grade III Body Position Sidelying Manual Traction Lumbar Details Hip/Iliac crest depression Body Position Sidelying PT-OP-R Modalities Start: 08/06/17 17:30 Freq: Status: Active Protocol: Document 09/16/18 14:30 DCW (Rec: 09/16/18 15:10 DCW [id number]) Electric Stimulation Electric Stimulation Interferential Current (IFC) Body Location Lumbar Spine Duration (Minutes) 15 Patient Position Sitting Combined With Heat/Cold Hot Pack PT-OP-T Assessment and Plan Start: 08/06/17 17:30 Freq: Status: Active Protocol: Document 09/16/18 14:30 DCW (Rec: 09/16/18 15:10 DCW [id number]) Physical Therapy Assessment Impairments Impairments Functional Mobility Pain Posture ROM Soft Tissue Mobility Strength Tone Goals Six Impairment Shoulder ROM Newspaper Writer Goal (LTG) Right shoulder ROM = Left shoulder ROM LTG Duration 10/19/18 - Improving Five Impairment Pt unable to lift 1/2 gallon of milk out of refrigerator with right arm Short Term Goal (STG) Pt to lift 1/2 gallon of milk with right arm without increased pain. STG Duration Met Four Impairment Palpable muscle tone Newspaper Writer Goal (LTG) Pt muscle tone grossly to mild levels of tone LTG Duration 10/19/18 - Improving Three Impairment Thoracic Spine ROM Short Term Goal (STG) Thoracic spine to lacking 10 degrees from neutral at full extension STG Duration Met Long-Term Goal (LTG) Thoracic spine to neutral at full extension LTG Duration 10/19/18 Two Impairment Pain Newspaper Writer Goal (LTG) Pt to report decreased pain to a max of 4/10 LTG Duration 10/19/18 - Improving One Impairment Activity tolerance Newspaper Writer Goal (LTG) Pt to tolerate gardening with no increased pain for three hours LTG Duration 10/19/18 - Improving Assessment Summary Assessment Despite complaints of soreness at the start of her session, pt tolerated STM well, had no increased complaints of muscle soreness or tenderness. Physical Therapy Plan Frequency and Duration Frequency of Treatment 1x/Week Duration of Treatment 8 weeks Plan of Care Start Date 08/19/18 Plan of Care End Date 10/14/18 Therapeutic Interventions Therapeutic Interventions Aquatic Therapy Home Exercise Program Joint Mobilizations Manual Therapy Neuromuscular Re-education Self-Care/Home Management Soft Tissue Mobilization Therapeutic Exercises Modalities Cold Pack/Ice Massage Electric Stimulation Hot Packs Next Visit Focus/Plan Next Note Type Treatment Note Next Visit Plan Manual therapy and TherEx to limit further Kyphosis, Shoulder strengthening and ROM
--- NOTE | 2018-09-23 15:14 | PT.OTN ---
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) Pain in thoracic spine (09/23/18) Physical Therapy Treatment Note PT-OP-A Visit Information Start: 08/06/17 17:30 Freq: Status: Active Protocol: Document 09/23/18 14:30 DCW (Rec: 09/23/18 15:12 DCW [id number]) Out-Patient Physical Therapy Visit Information Visit Information Visit Type Treatment Note Visit Start Time 14:30 Visit Stop Time 15:25 Total Visit Minutes 55 Visit Number 59 Number of SAFETY SPEC Visits 0 Evaluation Information Evaluation Date 05/28/17 PT-OP-B Current Condition Start: 10/04/17 14:21 Freq: Status: Active Protocol: Document 12/10/17 13:45 DCW (Rec: 12/10/17 13:56 DCW [id number]) Current Condition History of Current Condition History of Current Condition Please see patient's chart in Therapy Source for complete history and initial evaluation Current Functional Impairments (Reported) Functional Limitations- Recreation/ Pt unable to tolerate yard- Hobbies work more than 60 minutes without significant increased pain in her shoulders. PT-OP-C Subjective Start: 08/06/17 17:30 Freq: Status: Active Protocol: Document 09/23/18 14:30 DCW (Rec: 09/23/18 15:12 DCW [id number]) OP-PT Subjective Patient Comments Patient Comments Pt reports her back started hurting in the middle of the night last night, makes me think we might need a new mattress. PT-OP-F Manual Assessment Start: 10/04/17 14:21 Freq: Status: Active Protocol: Document 08/19/18 14:30 DCW (Rec: 08/19/18 14:48 DCW [id number]) Manual Assessments Soft Tissue Assessment Soft Tissue Mobility Assessment Moderate tone in Bilateral thoracic and lumbar paraspinals, piriformis, iliopsoas, and quadratus lumborum. Mild tone in bilateral hamstrings and adductor vinod PT-OP-J Posture/Palpation/Skin Start: 10/04/17 14:21 Freq: Status: Active Protocol: Document 08/19/18 14:30 DCW (Rec: 08/19/18 14:48 DCW [id number]) Posture Evaluation Position Standing Head/C-Spine Posture Forward Head T-Spine Posture Flexible Scoliosis on (L) Increased Kyphosis L-Spine Posture Flexible Scoliosis on (R) Pelvis Posture (L) Iliac Crest Superior Hip Posture (L) Flexed (R) Flexed Comments Posture Comments Pt's jorge with cues to stand as tall as possible: 5' PT-OP-K Range of Motion Start: 10/04/17 14:21 Freq: Status: Active Protocol: Document 08/19/18 14:30 DCW (Rec: 08/19/18 14:48 DCW [id number]) Lumbar Spine Range of Motion Lumbar Spine Active Degrees Testing Position Standing Comments Max extension, pt is forward flexed 3? at her thoracic spine Shoulder Goniometric Range of Motion Shoulder Left Active Shoulder ROM WFL No Testing Position Sitting Flexion 143 Abduction 130 External Rotation at 0 degrees Abduction 52 Right Active Shoulder ROM WFL No Testing Position Sitting Flexion 144 Abduction 124 External Rotation at 0 degrees Abduction 60 PT-OP-M Strength Start: 10/04/17 14:21 Freq: Status: Active Protocol: Document 08/19/18 14:30 DCW (Rec: 08/19/18 14:48 DCW [id number]) Shoulder Strength Shoulder Manual Muscle Testing Right Flexion 4 Good Abduction (C5) 4+ Good+ External Rotation 4 Good Internal Rotation 5 Normal Left Flexion 4+ Good+ Abduction (C5) 4+ Good+ External Rotation 4+ Good+ Internal Rotation 5 Normal PT-OP-Q Treatments Start: 08/06/17 17:30 Freq: Status: Active Protocol: Document 09/23/18 14:30 DCW (Rec: 09/23/18 15:12 DCW [id number]) Cardio Equipment Upper Body Ergometer (UBE) Duration (Minutes) 5 RPM 60 Seat Position 12 Height 3.5 Therapeutic Exercises Sitting Exercises PROM Abduction Sitting Exercise Name Pullies GH Abduction PROM Flexion Sitting Exercise Name Pullies GH flexion Side bilateral Standing Exercises Rows Standing Exercise Name Rows Side bilateral Resistance Lv 3 Equipment Used T-band Shoulder Extension Standing Exercise Name Extension Side bilateral Resistance Lv 3 Equipment Used T-band Manual Therapy Treatment Soft Tissue Mobilization 3 Body Location Quadratus Lumborum Mobilization Type Myofascial Release Strumming Sustained Pressure Intensity/Depth Moderate Body Position Sidelying 2 Body Location Glute Med Mobilization Type Strumming Sustained Pressure Intensity/Depth Moderate Body Position Sidelying 1 Body Location Lumbar Erector Spinae Mobilization Type Myofascial Release Sustained Pressure Intensity/Depth Moderate Body Position Sidelying Joint Mobilizations 1 Joint Thoracic Spine Direction P->A Grade III Body Position Sidelying Manual Traction Lumbar Details Hip/Iliac crest depression Body Position Sidelying PT-OP-R Modalities Start: 08/06/17 17:30 Freq: Status: Active Protocol: Document 09/23/18 14:30 DCW (Rec: 09/23/18 15:12 DCW [id number]) Electric Stimulation Electric Stimulation Interferential Current (IFC) Body Location Lumbar Spine Duration (Minutes) 15 Patient Position Sitting Combined With Heat/Cold Hot Pack PT-OP-T Assessment and Plan Start: 08/06/17 17:30 Freq: Status: Active Protocol: Document 09/23/18 14:30 DCW (Rec: 09/23/18 15:12 DCW [id number]) Physical Therapy Assessment Impairments Impairments Functional Mobility Pain Posture ROM Soft Tissue Mobility Strength Tone Goals Six Impairment Shoulder ROM Fdc Goal (LTG) Right shoulder ROM = Left shoulder ROM LTG Duration 10/19/18 - Improving Five Impairment Pt unable to lift 1/2 gallon of milk out of refrigerator with right arm Short Term Goal (STG) Pt to lift 1/2 gallon of milk with right arm without increased pain. STG Duration Met Four Impairment Palpable muscle tone Drafter Structural Goal (LTG) Pt muscle tone grossly to mild levels of tone LTG Duration 10/19/18 - Improving Three Impairment Thoracic Spine ROM Short Term Goal (STG) Thoracic spine to lacking 10 degrees from neutral at full extension STG Duration Met Fdc Goal (LTG) Thoracic spine to neutral at full extension LTG Duration 10/19/18 Two Impairment Pain Drafter Structural Goal (LTG) Pt to report decreased pain to a max of 4/10 LTG Duration 10/19/18 - Improving One Impairment Activity tolerance Drafter Structural Goal (LTG) Pt to tolerate gardening with no increased pain for three hours LTG Duration 10/19/18 - Improving Assessment Summary Assessment Pt doing well today, did display increased paraspinal tone along right side, pt showed good shoulder ROM today . Physical Therapy Plan Frequency and Duration Frequency of Treatment 1x/Week Duration of Treatment 8 weeks Plan of Care Start Date 08/19/18 Plan of Care End Date 07/15/19 Therapeutic Interventions Therapeutic Interventions Aquatic Therapy Home Exercise Program Joint Mobilizations Manual Therapy Neuromuscular Re-education Self-Care/Home Management Soft Tissue Mobilization Therapeutic Exercises Modalities Cold Pack/Ice Massage Electric Stimulation Hot Packs Next Visit Focus/Plan Next Note Type Treatment Note Next Visit Plan Manual therapy and TherEx to limit further Kyphosis, Shoulder strengthening and ROM
--- NOTE | 2018-10-01 11:14 | PT.OTN ---
Current Diagnoses Scoliosis, unspecified (10/01/18) Spondylosis without myelopathy or radiculopathy, cervical region (10/01/18) Pain in thoracic spine (10/01/18) Physical Therapy Treatment Note PT-OP-A Visit Information Start: 08/06/17 17:30 Freq: Status: Active Protocol: Document 10/01/18 10:30 DCW (Rec: 10/01/18 11:14 DCW [id number]) Out-Patient Physical Therapy Visit Information Visit Information Visit Type Treatment Note Visit Start Time 10:30 Visit Stop Time 11:25 Total Visit Minutes 55 Visit Number 60 Number of DIRECTOR OUTCOMES Visits 0 Evaluation Information Evaluation Date 05/28/17 PT-OP-B Current Condition Start: 10/04/17 14:21 Freq: Status: Active Protocol: Document 12/10/17 13:45 DCW (Rec: 12/10/17 13:56 DCW [id number]) Current Condition History of Current Condition History of Current Condition Please see patient's chart in Therapy Source for complete history and initial evaluation Current Functional Impairments (Reported) Functional Limitations- Recreation/ Pt unable to tolerate yard- Hobbies work more than 60 minutes without significant increased pain in her shoulders. PT-OP-C Subjective Start: 08/06/17 17:30 Freq: Status: Active Protocol: Document 10/01/18 10:30 DCW (Rec: 10/01/18 11:14 DCW [id number]) OP-PT Subjective Patient Comments Patient Comments Pt reports she is doing fairly well today. PT-OP-F Manual Assessment Start: 10/04/17 14:21 Freq: Status: Active Protocol: Document 08/19/18 14:30 DCW (Rec: 08/19/18 14:48 DCW [id number]) Manual Assessments Soft Tissue Assessment Soft Tissue Mobility Assessment Moderate tone in Bilateral thoracic and lumbar paraspinals, piriformis, iliopsoas, and quadratus lumborum. Mild tone in bilateral hamstrings and adductor vinod PT-OP-J Posture/Palpation/Skin Start: 10/04/17 14:21 Freq: Status: Active Protocol: Document 08/19/18 14:30 DCW (Rec: 08/19/18 14:48 DCW [id number]) Posture Evaluation Position Standing Head/C-Spine Posture Forward Head T-Spine Posture Flexible Scoliosis on (L) Increased Kyphosis L-Spine Posture Flexible Scoliosis on (R) Pelvis Posture (L) Iliac Crest Superior Hip Posture (L) Flexed (R) Flexed Comments Posture Comments Pt's jorge with cues to stand as tall as possible: 5' PT-OP-K Range of Motion Start: 10/04/17 14:21 Freq: Status: Active Protocol: Document 08/19/18 14:30 DCW (Rec: 08/19/18 14:48 DCW [id number]) Lumbar Spine Range of Motion Lumbar Spine Active Degrees Testing Position Standing Comments Max extension, pt is forward flexed 3? at her thoracic spine Shoulder Goniometric Range of Motion Shoulder Left Active Shoulder ROM WFL No Testing Position Sitting Flexion 143 Abduction 130 External Rotation at 0 degrees Abduction 52 Right Active Shoulder ROM WFL No Testing Position Sitting Flexion 144 Abduction 124 External Rotation at 0 degrees Abduction 60 PT-OP-M Strength Start: 10/04/17 14:21 Freq: Status: Active Protocol: Document 08/19/18 14:30 DCW (Rec: 08/19/18 14:48 DCW [id number]) Shoulder Strength Shoulder Manual Muscle Testing Right Flexion 4 Good Abduction (C5) 4+ Good+ External Rotation 4 Good Internal Rotation 5 Normal Left Flexion 4+ Good+ Abduction (C5) 4+ Good+ External Rotation 4+ Good+ Internal Rotation 5 Normal PT-OP-Q Treatments Start: 08/06/17 17:30 Freq: Status: Active Protocol: Document 10/01/18 10:30 DCW (Rec: 10/01/18 11:14 DCW [id number]) Cardio Equipment Upper Body Ergometer (UBE) Duration (Minutes) 5 RPM 60 Seat Position 12 Height 3.5 Therapeutic Exercises Supine Exercises 1 Supine Exercise Name Supine on Towel roll at T10-12 Side bilateral Comments increase thoracolumbar extension Sitting Exercises PROM Abduction Sitting Exercise Name Pullies GH Abduction PROM Flexion Sitting Exercise Name Pullies GH flexion Side bilateral Standing Exercises Rows Standing Exercise Name Rows Side bilateral Resistance Lv 3 Equipment Used T-band Shoulder Extension Standing Exercise Name Extension Side bilateral Resistance Lv 3 Equipment Used T-band Manual Therapy Treatment Soft Tissue Mobilization 3 Body Location Quadratus Lumborum Mobilization Type Myofascial Release Strumming Sustained Pressure Intensity/Depth Moderate Body Position Sidelying 2 Body Location Glute Med Mobilization Type Strumming Sustained Pressure Intensity/Depth Moderate Body Position Sidelying 1 Body Location Lumbar Erector Spinae Mobilization Type Myofascial Release Sustained Pressure Intensity/Depth Moderate Body Position Sidelying Joint Mobilizations 1 Joint Thoracic Spine Direction P->A Grade III Body Position Sidelying Manual Traction Lumbar Details Hip/Iliac crest depression Body Position Sidelying PT-OP-R Modalities Start: 08/06/17 17:30 Freq: Status: Active Protocol: Document 10/01/18 10:30 DCW (Rec: 10/01/18 11:14 DCW [id number]) Electric Stimulation Electric Stimulation Interferential Current (IFC) Body Location Lumbar Spine Duration (Minutes) 15 Patient Position Sitting Combined With Heat/Cold Hot Pack PT-OP-T Assessment and Plan Start: 08/06/17 17:30 Freq: Status: Active Protocol: Document 10/01/18 10:30 DCW (Rec: 10/01/18 11:14 DCW [id number]) Physical Therapy Assessment Impairments Impairments Functional Mobility Pain Posture ROM Soft Tissue Mobility Strength Tone Goals Six Impairment Shoulder ROM Gift Manager Goal (LTG) Right shoulder ROM = Left shoulder ROM LTG Duration 10/19/18 - Improving Five Impairment Pt unable to lift 1/2 gallon of milk out of refrigerator with right arm Short Term Goal (STG) Pt to lift 1/2 gallon of milk with right arm without increased pain. STG Duration Met Four Impairment Palpable muscle tone Fpc Goal (LTG) Pt muscle tone grossly to mild levels of tone LTG Duration 10/19/18 - Improving Three Impairment Thoracic Spine ROM Short Term Goal (STG) Thoracic spine to lacking 10 degrees from neutral at full extension STG Duration Met Gift Manager Goal (LTG) Thoracic spine to neutral at full extension LTG Duration 10/19/18 Two Impairment Pain Fpc Goal (LTG) Pt to report decreased pain to a max of 4/10 LTG Duration 10/19/18 - Improving One Impairment Activity tolerance Fpc Goal (LTG) Pt to tolerate gardening with no increased pain for three hours LTG Duration 10/19/18 - Improving Assessment Summary Assessment Pt a little tight today after a busy weekend, but tolerated treatment well. Physical Therapy Plan Frequency and Duration Frequency of Treatment 1x/Week Duration of Treatment 8 weeks Plan of Care Start Date 08/19/18 Plan of Care End Date 10/14/18 Therapeutic Interventions Therapeutic Interventions Aquatic Therapy Home Exercise Program Joint Mobilizations Manual Therapy Neuromuscular Re-education Self-Care/Home Management Soft Tissue Mobilization Therapeutic Exercises Modalities Cold Pack/Ice Massage Electric Stimulation Hot Packs Next Visit Focus/Plan Next Note Type Treatment Note Next Visit Plan Manual therapy and TherEx to limit further Kyphosis, Shoulder strengthening and ROM
--- NOTE | 2018-10-07 12:42 | PT.OTN ---
Current Diagnoses Scoliosis, unspecified (10/07/18) Spondylosis without myelopathy or radiculopathy, cervical region (10/07/18) Pain in thoracic spine (10/07/18) Physical Therapy Treatment Note PT-OP-A Visit Information Start: 08/06/17 17:30 Freq: Status: Active Protocol: Document 10/07/18 12:00 DCW (Rec: 10/07/18 12:42 DCW [id number]) Out-Patient Physical Therapy Visit Information Visit Information Visit Type Treatment Note Visit Start Time 12:00 Visit Stop Time 12:55 Total Visit Minutes 55 Visit Number 61 Number of CHIP MIXING MACHINE OPERATOR Visits 0 Evaluation Information Evaluation Date 05/28/17 PT-OP-B Current Condition Start: 10/04/17 14:21 Freq: Status: Active Protocol: Document 12/10/17 13:45 DCW (Rec: 12/10/17 13:56 DCW [id number]) Current Condition History of Current Condition History of Current Condition Please see patient's chart in Therapy Source for complete history and initial evaluation Current Functional Impairments (Reported) Functional Limitations- Recreation/ Pt unable to tolerate yard- Hobbies work more than 60 minutes without significant increased pain in her shoulders. PT-OP-C Subjective Start: 08/06/17 17:30 Freq: Status: Active Protocol: Document 10/07/18 12:00 DCW (Rec: 10/07/18 12:42 DCW [id number]) OP-PT Subjective Patient Comments Patient Comments Pt is very sore today, notes she did not sleep well, and believes that she needs a new mattress. PT-OP-F Manual Assessment Start: 10/04/17 14:21 Freq: Status: Active Protocol: Document 08/19/18 14:30 DCW (Rec: 08/19/18 14:48 DCW [id number]) Manual Assessments Soft Tissue Assessment Soft Tissue Mobility Assessment Moderate tone in Bilateral thoracic and lumbar paraspinals, piriformis, iliopsoas, and quadratus lumborum. Mild tone in bilateral hamstrings and adductor vinod PT-OP-J Posture/Palpation/Skin Start: 10/04/17 14:21 Freq: Status: Active Protocol: Document 08/19/18 14:30 DCW (Rec: 05/20/19 14:48 DCW [id number]) Posture Evaluation Position Standing Head/C-Spine Posture Forward Head T-Spine Posture Flexible Scoliosis on (L) Increased Kyphosis L-Spine Posture Flexible Scoliosis on (R) Pelvis Posture (L) Iliac Crest Superior Hip Posture (L) Flexed (R) Flexed Comments Posture Comments Pt's jorge with cues to stand as tall as possible: 5' PT-OP-K Range of Motion Start: 10/04/17 14:21 Freq: Status: Active Protocol: Document 08/19/18 14:30 DCW (Rec: 08/19/18 14:48 DCW [id number]) Lumbar Spine Range of Motion Lumbar Spine Active Degrees Testing Position Standing Comments Max extension, pt is forward flexed 3? at her thoracic spine Shoulder Goniometric Range of Motion Shoulder Left Active Shoulder ROM WFL No Testing Position Sitting Flexion 143 Abduction 130 External Rotation at 0 degrees Abduction 52 Right Active Shoulder ROM WFL No Testing Position Sitting Flexion 144 Abduction 124 External Rotation at 0 degrees Abduction 60 PT-OP-M Strength Start: 10/04/17 14:21 Freq: Status: Active Protocol: Document 08/19/18 14:30 DCW (Rec: 08/19/18 14:48 DCW [id number]) Shoulder Strength Shoulder Manual Muscle Testing Right Flexion 4 Good Abduction (C5) 4+ Good+ External Rotation 4 Good Internal Rotation 5 Normal Left Flexion 4+ Good+ Abduction (C5) 4+ Good+ External Rotation 4+ Good+ Internal Rotation 5 Normal PT-OP-Q Treatments Start: 08/06/17 17:30 Freq: Status: Active Protocol: Document 10/07/18 12:00 DCW (Rec: 10/07/18 12:42 DCW [id number]) Cardio Equipment Upper Body Ergometer (UBE) Duration (Minutes) 5 RPM 60 Seat Position 12 Height 3.5 Therapeutic Exercises Supine Exercises 1 Supine Exercise Name Supine on Towel roll at T10-12 Side bilateral Comments increase thoracolumbar extension Sitting Exercises PROM Abduction Sitting Exercise Name Pullies GH Abduction PROM Flexion Sitting Exercise Name Pullies GH flexion Side bilateral Manual Therapy Treatment Soft Tissue Mobilization 4 Body Location Piriformis Mobilization Type Strumming Sustained Pressure Trigger Point Release Intensity/Depth Deep Body Position Sidelying 3 Body Location Quadratus Lumborum Mobilization Type Myofascial Release Strumming Sustained Pressure Intensity/Depth Moderate Body Position Sidelying 2 Body Location Glute Med Mobilization Type Strumming Sustained Pressure Intensity/Depth Moderate Body Position Sidelying 1 Body Location Lumbar Erector Spinae Mobilization Type Myofascial Release Sustained Pressure Intensity/Depth Moderate Body Position Sidelying Joint Mobilizations 1 Joint Thoracic Spine Direction P->A Grade III Body Position Sidelying Manual Traction Lumbar Details Hip/Iliac crest depression Body Position Sidelying PT-OP-R Modalities Start: 08/06/17 17:30 Freq: Status: Active Protocol: Document 10/07/18 12:00 DCW (Rec: 10/07/18 12:42 DCW [id number]) Electric Stimulation Electric Stimulation Interferential Current (IFC) Body Location Lumbar Spine Duration (Minutes) 15 Patient Position Sitting Combined With Heat/Cold Hot Pack PT-OP-T Assessment and Plan Start: 08/06/17 17:30 Freq: Status: Active Protocol: Document 10/07/18 12:00 DCW (Rec: 10/07/18 12:42 DCW [id number]) Physical Therapy Assessment Impairments Impairments Functional Mobility Pain Posture ROM Soft Tissue Mobility Strength Tone Goals Six Impairment Shoulder ROM Sales Agent Goal (LTG) Right shoulder ROM = Left shoulder ROM LTG Duration 10/19/18 - Improving Five Impairment Pt unable to lift 1/2 gallon of milk out of refrigerator with right arm Short Term Goal (STG) Pt to lift 1/2 gallon of milk with right arm without increased pain. STG Duration Met Four Impairment Palpable muscle tone Sales Agent Goal (LTG) Pt muscle tone grossly to mild levels of tone LTG Duration 10/19/18 - Improving Three Impairment Thoracic Spine ROM Short Term Goal (STG) Thoracic spine to lacking 10 degrees from neutral at full extension STG Duration Met Sales Agent Goal (LTG) Thoracic spine to neutral at full extension LTG Duration 10/19/18 Two Impairment Pain Sales Agent Goal (LTG) Pt to report decreased pain to a max of 4/10 LTG Duration 10/19/18 - Improving One Impairment Activity tolerance Chcf Goal (LTG) Pt to tolerate gardening with no increased pain for three hours LTG Duration 10/19/18 - Improving Assessment Summary Assessment Pt had increased pain and tone in bilateral piriformis today , noted that seemed to be where her pain was located. Physical Therapy Plan Frequency and Duration Frequency of Treatment 1x/Week Duration of Treatment 8 weeks Plan of Care Start Date 08/19/18 Plan of Care End Date 10/14/18 Therapeutic Interventions Therapeutic Interventions Aquatic Therapy Home Exercise Program Joint Mobilizations Manual Therapy Neuromuscular Re-education Self-Care/Home Management Soft Tissue Mobilization Therapeutic Exercises Modalities Cold Pack/Ice Massage Electric Stimulation Hot Packs Next Visit Focus/Plan Next Note Type Progress Note Next Visit Plan New POC
--- NOTE | 2018-10-22 17:04 | PT.OTN ---
Current Diagnoses Scoliosis, unspecified (10/22/18) Spondylosis without myelopathy or radiculopathy, cervical region (10/22/18) Pain in thoracic spine (10/22/18) Physical Therapy Treatment Note PT-OP-A Visit Information Start: 08/06/17 17:30 Freq: Status: Active Protocol: Document 10/22/18 14:21 EA (Rec: 10/22/18 14:31 EA [id number]) Out-Patient Physical Therapy Visit Information Visit Information Visit Type Treatment Note Visit Note Re-eval no charge performed today Visit Start Time 13:00 Visit Stop Time 13:45 Total Visit Minutes 45 Visit Number 62 PT-OP-B Current Condition Start: 10/04/17 14:21 Freq: Status: Active Protocol: Document 12/10/17 13:45 DCW (Rec: 12/10/17 13:56 DCW [id number]) Current Condition History of Current Condition History of Current Condition Please see patient's chart in Therapy Source for complete history and initial evaluation Current Functional Impairments (Reported) Functional Limitations- Recreation/ Pt unable to tolerate yard- Hobbies work more than 60 minutes without significant increased pain in her shoulders. PT-OP-C Subjective Start: 08/06/17 17:30 Freq: Status: Active Protocol: Document 10/22/18 14:21 EA (Rec: 10/22/18 14:31 EA [id number]) OP-PT Subjective Patient Comments Patient Comments Came up to conclussion that I am not gonna be able to lift the same as I was 31 years old. 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 PT-OP-F Manual Assessment Start: 10/04/17 14:21 Freq: Status: Active Protocol: Document 08/19/18 14:30 DCW (Rec: 08/19/18 14:48 DCW [id number]) Manual Assessments Soft Tissue Assessment Soft Tissue Mobility Assessment Moderate tone in Bilateral thoracic and lumbar paraspinals, piriformis, iliopsoas, and quadratus lumborum. Mild tone in bilateral hamstrings and adductor viond PT-OP-J Posture/Palpation/Skin Start: 10/04/17 14:21 Freq: Status: Active Protocol: Document 10/22/18 14:21 EA (Rec: 10/22/18 14:31 EA [id number]) Posture Evaluation Position Standing Head/C-Spine Posture Forward Head T-Spine Posture Flexible Scoliosis on (L) Increased Kyphosis L-Spine Posture Flexible Scoliosis on (R) Pelvis Posture (L) Iliac Crest Superior Hip Posture (L) Flexed (R) Flexed PT-OP-K Range of Motion Start: 10/04/17 14:21 Freq: Status: Active Protocol: Document 08/19/18 14:30 DCW (Rec: 08/19/18 14:48 DCW [id number]) Lumbar Spine Range of Motion Lumbar Spine Active Degrees Testing Position Standing Comments Max extension, pt is forward flexed 3? at her thoracic spine Shoulder Goniometric Range of Motion Shoulder Left Active Shoulder ROM WFL No Testing Position Sitting Flexion 143 Abduction 130 External Rotation at 0 degrees Abduction 52 Right Active Shoulder ROM WFL No Testing Position Sitting Flexion 144 Abduction 124 External Rotation at 0 degrees Abduction 60 PT-OP-M Strength Start: 10/04/17 14:21 Freq: Status: Active Protocol: Document 08/19/18 14:30 DCW (Rec: 08/19/18 14:48 DCW [id number]) Shoulder Strength Shoulder Manual Muscle Testing Right Flexion 4 Good Abduction (C5) 4+ Good+ External Rotation 4 Good Internal Rotation 5 Normal Left Flexion 4+ Good+ Abduction (C5) 4+ Good+ External Rotation 4+ Good+ Internal Rotation 5 Normal PT-OP-Q Treatments Start: 08/06/17 17:30 Freq: Status: Active Protocol: Document 10/22/18 14:21 EA (Rec: 10/22/18 14:31 EA [id number]) Therapeutic Exercises Supine Exercises 2 Supine Exercise Name Partial bridging Reps/Minutes x 5 reps Comments monitor hamstring cramps 1 Supine Exercise Name Supine on Towel roll at T10-12 Side bilateral Comments increase thoracolumbar extension Sitting Exercises 3 Sitting Exercise Name Scapular adduction Reps/Minutes x 10 reps 2 Sitting Exercise Name Chin tucked Reps/Minutes x 10 reps 1 Sitting Exercise Name Thoracic extensions Reps/Minutes x 5 reps x 5 SH Standing Exercises 1 Standing Exercise Name Wall posture Reps/Minutes x 5SH x 5 reps Manual Therapy Treatment Soft Tissue Mobilization 4 Body Location Piriformis Mobilization Type Strumming Sustained Pressure Trigger Point Release Intensity/Depth Deep Body Position Sidelying 3 Body Location Quadratus Lumborum Mobilization Type Myofascial Release Strumming Sustained Pressure Intensity/Depth Moderate Body Position Sidelying 2 Body Location Glute Med Mobilization Type Strumming Sustained Pressure Intensity/Depth Moderate Body Position Sidelying 1 Body Location Lumbar Erector Spinae Mobilization Type Myofascial Release Sustained Pressure Intensity/Depth Moderate Body Position Sidelying PT-OP-R Modalities Start: 08/06/17 17:30 Freq: Status: Active Protocol: Document 10/22/18 14:21 EA (Rec: 10/22/18 14:31 EA [id number]) Electric Stimulation Electric Stimulation Interferential Current (IFC) Body Location Lumbar Spine Duration (Minutes) 15 Patient Position Sitting Combined With Heat/Cold Hot Pack PT-OP-T Assessment and Plan Start: 08/06/17 17:30 Freq: Status: Active Protocol: Document 10/22/18 14:21 EA (Rec: 10/22/18 14:31 EA [id number]) Physical Therapy Assessment Impairments Impairments Functional Mobility Pain Posture ROM Soft Tissue Mobility Strength Tone Goals Six Impairment Difficulty of getting in the car Skilled Nursing Goal (LTG) Patient will get in to the car with proper mechanics without difficulty anifficultynd low back pain LTG Duration 5 wks Five Impairment Difficulty of lifting laundry from floor to shoulder level Truckman Goal (LTG) Patient will learn good lifting mechanics to prevent further low back pain. LTG Duration 4 wks Four Impairment Palpable muscle tone Skilled Nursing Goal (LTG) Pt muscle tone grossly to mild levels of tone LTG Duration 4 wks Three Impairment Thoracic Spine ROM Short Term Goal (STG) Thoracic spine to lacking 10 degrees from neutral at full extension STG Duration Met Skilled Nursing Goal (LTG) Thoracic spine to neutral at full extension LTG Duration 5 wks Two Impairment Pain Skilled Nursing Goal (LTG) Pt to report decreased pain to a max of 4/10 LTG Duration no improvement One Impairment Activity tolerance Truckman Goal (LTG) Pt to tolerate gardening with no increased pain for three hours LTG Duration 4 wks - Improving Assessment Summary Assessment Patient exhibits severe trunk bending and poor postural control/endurance in standing. Limitation or difficulty in getting in the car is may be due to active insufficiency of hip flexors as patient c/o ribs touching her pelvis while getting into her car; this issue might be beneficial with correction of posture. I recommended to see her physician for spine imaging to rule out compression fracture. Overall patient improve minimally but slowly at this time. She would still benefit with skilled PT to improve posture, strengthening of posterior muscle and preventing further increase of back and shoulder symptoms. Physical Therapy Plan Frequency and Duration Frequency of Treatment 1x/Week Duration of Treatment 8 wks Plan of Care Start Date 10/22/18 Plan of Care End Date 12/17/18 Therapeutic Interventions Therapeutic Interventions Aquatic Therapy Home Exercise Program Joint Mobilizations Manual Therapy Neuromuscular Re-education Self-Care/Home Management Soft Tissue Mobilization Therapeutic Exercises Modalities Cold Pack/Ice Massage Electric Stimulation Hot Packs Other Referrals/Consults Referrals/Consults Recommended Recommended to see her physcian for spine X-ray to rule out compression fracture
--- NOTE | 2018-10-22 17:05 | PT.OPPOC ---
Current Diagnoses Scoliosis, unspecified (10/22/18) Spondylosis without myelopathy or radiculopathy, cervical region (10/22/18) Pain in thoracic spine (10/22/18) Provider Visit Care Team Role Provider Type Jia Sheridan MD Attending Provider Physician Family Provider Primary Care Provider Specialty: Family Practice Address: [address] [place] [address], [id number] Email: Plan Of Care PT-OP-T Assessment and Plan Start: 08/06/17 17:30 Freq: Status: Active Protocol: Document 10/22/18 14:21 EA (Rec: 10/22/18 14:31 EA [id number]) Physical Therapy Assessment Impairments Impairments Functional Mobility Pain Posture ROM Soft Tissue Mobility Strength Tone Goals Six Impairment Difficulty of getting in the car Intermediate Goal (LTG) Patient will get in to the car with proper mechanics without difficulty anifficultynd low back pain LTG Duration 5 wks Five Impairment Difficulty of lifting laundry from floor to shoulder level Stunt Double Goal (LTG) Patient will learn good lifting mechanics to prevent further low back pain. LTG Duration 4 wks Four Impairment Palpable muscle tone Intermediate Goal (LTG) Pt muscle tone grossly to mild levels of tone LTG Duration 4 wks Three Impairment Thoracic Spine ROM Short Term Goal (STG) Thoracic spine to lacking 10 degrees from neutral at full extension STG Duration Met Intermediate Goal (LTG) Thoracic spine to neutral at full extension LTG Duration 5 wks Two Impairment Pain Intermediate Goal (LTG) Pt to report decreased pain to a max of 4/10 LTG Duration no improvement One Impairment Activity tolerance Intermediate Goal (LTG) Pt to tolerate gardening with no increased pain for three hours LTG Duration 4 wks - Improving Assessment Summary Assessment Patient exhibits severe trunk bending and poor postural control/endurance in standing. Limitation or difficulty in getting in the car is may be due to active insufficiency of hip flexors as patient c/o ribs touching her pelvis while getting into her car; this issue might be beneficial with correction of posture. I recommended to see her physician for spine imaging to rule out compressiong fracture. Overall patient improve minimally but slowly at this time. She would still benefit with skilled PT to improve posture, strengthening of posterior muscle and preventing further increase of back and shoulder symptoms. Physical Therapy Plan Frequency and Duration Frequency of Treatment 1x/Week Duration of Treatment 8 wks Plan of Care Start Date 10/22/18 Plan of Care End Date 12/17/18 Therapeutic Interventions Therapeutic Interventions Aquatic Therapy Home Exercise Program Joint Mobilizations Manual Therapy Neuromuscular Re-education Self-Care/Home Management Soft Tissue Mobilization Therapeutic Exercises Modalities Cold Pack/Ice Massage Electric Stimulation Hot Packs Other Referrals/Consults Referrals/Consults Recommended Recommended to see her physcian for spine X-ray to rule out compression fracture Plan of Care Dates Plan of Care Start Date 10/22/18 Plan of Care End Date 12/17/18 Please Sign and Return: I have reviewed this Plan of Care and certify that the skilled therapy services above are required to meet the patient?s needs. Physician Signature Date Printed Name and Credentials Clinical Instructor Signature Printed Name and Credentials
--- NOTE | 2018-11-06 14:30 | PT.OTN ---
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 PT-OP-C Subjective Start: 08/06/17 17:30 Freq: Status: Active Protocol: Document 11/06/18 13:45 DCW (Rec: 11/06/18 14:30 DCW [id number]) OP-PT Subjective Patient Comments Patient Comments Pt reports she has been miserable the past few days, has been experiencing small muslce spasms all up and down her back, although it isn't too bad right now. PT-OP-F Manual Assessment Start: 10/04/17 14:21 Freq: Status: Active Protocol: Document 08/19/18 14:30 DCW (Rec: 08/19/18 14:48 DCW [id number]) Manual Assessments Soft Tissue Assessment Soft Tissue Mobility Assessment Moderate tone in Bilateral thoracic and lumbar paraspinals, piriformis, iliopsoas, and quadratus lumborum. Mild tone in bilateral hamstrings and adductor vinod PT-OP-J Posture/Palpation/Skin Start: 10/04/17 14:21 Freq: Status: Active Protocol: Document 10/22/18 14:21 EA (Rec: 10/22/18 14:31 EA [id number]) Posture Evaluation Position Standing Head/C-Spine Posture Forward Head T-Spine Posture Flexible Scoliosis on (L) Increased Kyphosis L-Spine Posture Flexible Scoliosis on (R) Pelvis Posture (L) Iliac Crest Superior Hip Posture (L) Flexed (R) Flexed PT-OP-K Range of Motion Start: 10/04/17 14:21 Freq: Status: Active Protocol: Document 08/19/18 14:30 DCW (Rec: 08/19/18 14:48 DCW [id number]) Lumbar Spine Range of Motion Lumbar Spine Active Degrees Testing Position Standing Comments Max extension, pt is forward flexed 3? at her thoracic spine Shoulder Goniometric Range of Motion Shoulder Left Active Shoulder ROM WFL No Testing Position Sitting Flexion 143 Abduction 130 External Rotation at 0 degrees Abduction 52 Right Active Shoulder ROM WFL No Testing Position Sitting Flexion 144 Abduction 124 External Rotation at 0 degrees Abduction 60 PT-OP-M Strength Start: 10/04/17 14:21 Freq: Status: Active Protocol: Document 08/19/18 14:30 DCW (Rec: 08/19/18 14:48 DCW [id number]) Shoulder Strength Shoulder Manual Muscle Testing Right Flexion 4 Good Abduction (C5) 4+ Good+ External Rotation 4 Good Internal Rotation 5 Normal Left Flexion 4+ Good+ Abduction (C5) 4+ Good+ External Rotation 4+ Good+ Internal Rotation 5 Normal PT-OP-Q Treatments Start: 08/06/17 17:30 Freq: Status: Active Protocol: Document 11/06/18 13:45 DCW (Rec: 11/06/18 14:30 DCW [id number]) Cardio Equipment Upper Body Ergometer (UBE) Duration (Minutes) 5 RPM 60 Seat Position 12 Height 3 Therapeutic Exercises Supine Exercises 1 Supine Exercise Name Supine on Towel roll at T10-12 Side bilateral Comments increase thoracolumbar extension Manual Therapy Treatment Soft Tissue Mobilization 4 Body Location Piriformis Mobilization Type Strumming Sustained Pressure Trigger Point Release Intensity/Depth Deep Body Position Sidelying 3 Body Location Quadratus Lumborum Mobilization Type Myofascial Release Strumming Sustained Pressure Intensity/Depth Moderate Body Position Sidelying 2 Body Location Glute Med Mobilization Type Strumming Sustained Pressure Intensity/Depth Moderate Body Position Sidelying 1 Body Location Lumbar Erector Spinae Mobilization Type Myofascial Release Sustained Pressure Intensity/Depth Moderate Body Position Sidelying Joint Mobilizations 1 Joint Thoracic Spine Direction P->A Grade III Body Position Sidelying Manual Traction Lumbar Details Hip/Iliac crest depression Body Position Sidelying PT-OP-R Modalities Start: 08/06/17 17:30 Freq: Status: Active Protocol: Document 11/06/18 13:45 DCW (Rec: 11/06/18 14:30 DCW [id number]) Electric Stimulation Electric Stimulation Interferential Current (IFC) Body Location Lumbar Spine Duration (Minutes) 15 Patient Position Sitting Combined With Heat/Cold Hot Pack PT-OP-T Assessment and Plan Start: 08/06/17 17:30 Freq: Status: Active Protocol: Document 11/06/18 13:45 DCW (Rec: 11/06/18 14:30 DCW [id number]) Physical Therapy Assessment Impairments Impairments Functional Mobility Pain Posture ROM Soft Tissue Mobility Strength Tone Goals Six Impairment Difficulty of getting in the car Intermediate Goal (LTG) Patient will get in to the car with proper mechanics without difficulty anifficultynd low back pain LTG Duration 5 wks Five Impairment Difficulty of lifting laundry from floor to shoulder level Intermediate Goal (LTG) Patient will learn good lifting mechanics to prevent further low back pain. LTG Duration 4 wks Four Impairment Palpable muscle tone Intermediate Goal (LTG) Pt muscle tone grossly to mild levels of tone LTG Duration 4 wks Three Impairment Thoracic Spine ROM Short Term Goal (STG) Thoracic spine to lacking 10 degrees from neutral at full extension STG Duration Met Moss Bleacher Goal (LTG) Thoracic spine to neutral at full extension LTG Duration 5 wks Two Impairment Pain Intermediate Goal (LTG) Pt to report decreased pain to a max of 4/10 LTG Duration no improvement One Impairment Activity tolerance Intermediate Goal (LTG) Pt to tolerate gardening with no increased pain for three hours LTG Duration 4 wks - Improving Assessment Summary Assessment Pt x-ray shows no compression fracture, just severe degenerative changes and osteoarthritis. Continued therapy focused on improving posture, shoulder strength, and paraspinal tone recommended. Physical Therapy Plan Frequency and Duration Frequency of Treatment 1x/Week Duration of Treatment 8 wks Plan of Care Start Date 10/22/18 Plan of Care End Date 12/17/18 Therapeutic Interventions Therapeutic Interventions Aquatic Therapy Home Exercise Program Joint Mobilizations Manual Therapy Neuromuscular Re-education Self-Care/Home Management Soft Tissue Mobilization Therapeutic Exercises Modalities Cold Pack/Ice Massage Electric Stimulation Hot Packs Other Referrals/Consults Referrals/Consults Recommended Recommended to see her physcian for spine X-ray to rule out compression fracture
--- NOTE | 2018-11-13 14:32 | PT.OTN ---
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) Pain in thoracic spine (11/13/18) Physical Therapy Treatment Note PT-OP-A Visit Information Start: 08/06/17 17:30 Freq: Status: Active Protocol: Document 11/13/18 13:45 DCW (Rec: 11/13/18 14:31 DCW [id number]) Out-Patient Physical Therapy Visit Information Visit Information Visit Type Treatment Note Visit Start Time 13:45 Visit Stop Time 14:40 Total Visit Minutes 55 Visit Number 64 Number of AMBULATORY NURSE Visits 0 Evaluation Information Evaluation Date 05/28/17 PT-OP-B Current Condition Start: 10/04/17 14:21 Freq: Status: Active Protocol: Document 12/10/17 13:45 DCW (Rec: 12/10/17 13:56 DCW [id number]) Current Condition History of Current Condition History of Current Condition Please see patient's chart in Therapy Source for complete history and initial evaluation Current Functional Impairments (Reported) Functional Limitations- Recreation/ Pt unable to tolerate yard- Hobbies work more than 60 minutes without significant increased pain in her shoulders. PT-OP-C Subjective Start: 08/06/17 17:30 Freq: Status: Active Protocol: Document 11/13/18 13:45 DCW (Rec: 11/13/18 14:31 DCW [id number]) OP-PT Subjective Patient Comments Patient Comments Pt reports that she spent a lot of time out in her garden, which resulted in increased shoulder pain. PT-OP-F Manual Assessment Start: 10/04/17 14:21 Freq: Status: Active Protocol: Document 08/19/18 14:30 DCW (Rec: 08/19/18 14:48 DCW [id number]) Manual Assessments Soft Tissue Assessment Soft Tissue Mobility Assessment Moderate tone in Bilateral thoracic and lumbar paraspinals, piriformis, iliopsoas, and quadratus lumborum. Mild tone in bilateral hamstrings and adductor vinod PT-OP-J Posture/Palpation/Skin Start: 10/04/17 14:21 Freq: Status: Active Protocol: Document 10/22/18 14:21 EA (Rec: 10/22/18 14:31 EA [id number]) Posture Evaluation Position Standing Head/C-Spine Posture Forward Head T-Spine Posture Flexible Scoliosis on (L) Increased Kyphosis L-Spine Posture Flexible Scoliosis on (R) Pelvis Posture (L) Iliac Crest Superior Hip Posture (L) Flexed (R) Flexed PT-OP-K Range of Motion Start: 10/04/17 14:21 Freq: Status: Active Protocol: Document 08/19/18 14:30 DCW (Rec: 08/19/18 14:48 DCW [id number]) Lumbar Spine Range of Motion Lumbar Spine Active Degrees Testing Position Standing Comments Max extension, pt is forward flexed 3? at her thoracic spine Shoulder Goniometric Range of Motion Shoulder Left Active Shoulder ROM WFL No Testing Position Sitting Flexion 143 Abduction 130 External Rotation at 0 degrees Abduction 52 Right Active Shoulder ROM WFL No Testing Position Sitting Flexion 144 Abduction 124 External Rotation at 0 degrees Abduction 60 PT-OP-M Strength Start: 10/04/17 14:21 Freq: Status: Active Protocol: Document 08/19/18 14:30 DCW (Rec: 08/19/18 14:48 DCW [id number]) Shoulder Strength Shoulder Manual Muscle Testing Right Flexion 4 Good Abduction (C5) 4+ Good+ External Rotation 4 Good Internal Rotation 5 Normal Left Flexion 4+ Good+ Abduction (C5) 4+ Good+ External Rotation 4+ Good+ Internal Rotation 5 Normal PT-OP-Q Treatments Start: 08/06/17 17:30 Freq: Status: Active Protocol: Document 11/13/18 13:45 DCW (Rec: 11/13/18 14:31 DCW [id number]) Cardio Equipment Upper Body Ergometer (UBE) Duration (Minutes) 5 RPM 60 Seat Position 12 Height 3 Therapeutic Exercises Supine Exercises 1 Supine Exercise Name Supine on Towel roll at T10-12 Side bilateral Comments increase thoracolumbar extension Sitting Exercises PROM Abduction Sitting Exercise Name Pullies GH Abduction PROM Flexion Sitting Exercise Name Pullies GH flexion Side bilateral Manual Therapy Treatment Soft Tissue Mobilization 4 Body Location Piriformis Mobilization Type Strumming Sustained Pressure Trigger Point Release Intensity/Depth Deep Body Position Sidelying 3 Body Location Quadratus Lumborum Mobilization Type Myofascial Release Strumming Sustained Pressure Intensity/Depth Moderate Body Position Sidelying 2 Body Location Glute Med Mobilization Type Strumming Sustained Pressure Intensity/Depth Moderate Body Position Sidelying 1 Body Location Lumbar Erector Spinae Mobilization Type Myofascial Release Sustained Pressure Intensity/Depth Moderate Body Position Sidelying Joint Mobilizations 1 Joint Thoracic Spine Direction P->A Grade III Body Position Sidelying Manual Traction Lumbar Details Hip/Iliac crest depression Body Position Sidelying PT-OP-R Modalities Start: 08/06/17 17:30 Freq: Status: Active Protocol: Document 11/13/18 13:45 DCW (Rec: 11/13/18 14:31 DCW [id number]) Electric Stimulation Electric Stimulation Interferential Current (IFC) Body Location Lumbar Spine Duration (Minutes) 15 Patient Position Sitting Combined With Heat/Cold Hot Pack PT-OP-T Assessment and Plan Start: 08/06/17 17:30 Freq: Status: Active Protocol: Document 11/13/18 13:45 DCW (Rec: 11/13/18 14:31 DCW [id number]) Physical Therapy Assessment Impairments Impairments Functional Mobility Pain Posture ROM Soft Tissue Mobility Strength Tone Goals Six Impairment Difficulty of getting in the car Car Rental Agency Manager Goal (LTG) Patient will get in to the car with proper mechanics without difficulty anifficultynd low back pain LTG Duration 5 wks Five Impairment Difficulty of lifting laundry from floor to shoulder level Mcfp Goal (LTG) Patient will learn good lifting mechanics to prevent further low back pain. LTG Duration 4 wks Four Impairment Palpable muscle tone Car Rental Agency Manager Goal (LTG) Pt muscle tone grossly to mild levels of tone LTG Duration 4 wks Three Impairment Thoracic Spine ROM Short Term Goal (STG) Thoracic spine to lacking 10 degrees from neutral at full extension STG Duration Met Car Rental Agency Manager Goal (LTG) Thoracic spine to neutral at full extension LTG Duration 5 wks Two Impairment Pain Mcfp Goal (LTG) Pt to report decreased pain to a max of 4/10 LTG Duration no improvement One Impairment Activity tolerance Mcfp Goal (LTG) Pt to tolerate gardening with no increased pain for three hours LTG Duration 4 wks - Improving Assessment Summary Assessment Pt a bit more tender to palpation today after increased soreness from working in her garden. Physical Therapy Plan Frequency and Duration Frequency of Treatment 1x/Week Duration of Treatment 8 wks Plan of Care Start Date 10/22/18 Plan of Care End Date 12/17/18 Therapeutic Interventions Therapeutic Interventions Aquatic Therapy Home Exercise Program Joint Mobilizations Manual Therapy Neuromuscular Re-education Self-Care/Home Management Soft Tissue Mobilization Therapeutic Exercises Modalities Cold Pack/Ice Massage Electric Stimulation Hot Packs Other Referrals/Consults Referrals/Consults Recommended Recommended to see her physcian for spine X-ray to rule out compression fracture
--- NOTE | 2018-11-20 15:15 | PT.OTN ---
Current Diagnoses Scoliosis, unspecified (11/20/18) Spondylosis without myelopathy or radiculopathy, cervical region (11/20/18) Pain in thoracic spine (11/20/18) Physical Therapy Treatment Note PT-OP-A Visit Information Start: 08/06/17 17:30 Freq: Status: Active Protocol: Document 11/20/18 14:30 DCW (Rec: 11/20/18 15:15 DCW [id number]) Out-Patient Physical Therapy Visit Information Visit Information Visit Type Treatment Note Visit Start Time 14:30 Visit Stop Time 15:25 Total Visit Minutes 55 Visit Number 65 Number of STOGY ROLLER Visits 0 Evaluation Information Evaluation Date 05/28/17 PT-OP-B Current Condition Start: 10/04/17 14:21 Freq: Status: Active Protocol: Document 12/10/17 13:45 DCW (Rec: 12/10/17 13:56 DCW [id number]) Current Condition History of Current Condition History of Current Condition Please see patient's chart in Therapy Source for complete history and initial evaluation Current Functional Impairments (Reported) Functional Limitations- Recreation/ Pt unable to tolerate yard- Hobbies work more than 60 minutes without significant increased pain in her shoulders. PT-OP-C Subjective Start: 08/06/17 17:30 Freq: Status: Active Protocol: Document 11/20/18 14:30 DCW (Rec: 11/20/18 15:15 DCW [id number]) OP-PT Subjective Patient Comments Patient Comments Pt notes she is feeling much better this week, but has had a very busy day today. PT-OP-F Manual Assessment Start: 10/04/17 14:21 Freq: Status: Active Protocol: Document 08/19/18 14:30 DCW (Rec: 08/19/18 14:48 DCW [id number]) Manual Assessments Soft Tissue Assessment Soft Tissue Mobility Assessment Moderate tone in Bilateral thoracic and lumbar paraspinals, piriformis, iliopsoas, and quadratus lumborum. Mild tone in bilateral hamstrings and adductor vinod PT-OP-J Posture/Palpation/Skin Start: 10/04/17 14:21 Freq: Status: Active Protocol: Document 10/22/18 14:21 EA (Rec: 10/22/18 14:31 EA [id number]) Posture Evaluation Position Standing Head/C-Spine Posture Forward Head T-Spine Posture Flexible Scoliosis on (L) Increased Kyphosis L-Spine Posture Flexible Scoliosis on (R) Pelvis Posture (L) Iliac Crest Superior Hip Posture (L) Flexed (R) Flexed PT-OP-K Range of Motion Start: 10/04/17 14:21 Freq: Status: Active Protocol: Document 08/19/18 14:30 DCW (Rec: 08/19/18 14:48 DCW [id number]) Lumbar Spine Range of Motion Lumbar Spine Active Degrees Testing Position Standing Comments Max extension, pt is forward flexed 3? at her thoracic spine Shoulder Goniometric Range of Motion Shoulder Left Active Shoulder ROM WFL No Testing Position Sitting Flexion 143 Abduction 130 External Rotation at 0 degrees Abduction 52 Right Active Shoulder ROM WFL No Testing Position Sitting Flexion 144 Abduction 124 External Rotation at 0 degrees Abduction 60 PT-OP-M Strength Start: 10/04/17 14:21 Freq: Status: Active Protocol: Document 08/19/18 14:30 DCW (Rec: 08/19/18 14:48 DCW [id number]) Shoulder Strength Shoulder Manual Muscle Testing Right Flexion 4 Good Abduction (C5) 4+ Good+ External Rotation 4 Good Internal Rotation 5 Normal Left Flexion 4+ Good+ Abduction (C5) 4+ Good+ External Rotation 4+ Good+ Internal Rotation 5 Normal PT-OP-Q Treatments Start: 08/06/17 17:30 Freq: Status: Active Protocol: Document 11/20/18 14:30 DCW (Rec: 11/20/18 15:15 DCW [id number]) Cardio Equipment Upper Body Ergometer (UBE) Duration (Minutes) 5 RPM 60 Seat Position 12 Height 3 Therapeutic Exercises Sitting Exercises PROM Abduction Sitting Exercise Name Pullies GH Abduction PROM Flexion Sitting Exercise Name Pullies GH flexion Side bilateral Standing Exercises Rows Standing Exercise Name Rows Side bilateral Resistance Lv 3 Equipment Used T-band Shoulder Extension Standing Exercise Name Extension Side bilateral Resistance Lv 3 Equipment Used T-band Manual Therapy Treatment Soft Tissue Mobilization 4 Body Location Piriformis Mobilization Type Strumming Sustained Pressure Trigger Point Release Intensity/Depth Deep Body Position Sidelying 3 Body Location Quadratus Lumborum Mobilization Type Myofascial Release Strumming Sustained Pressure Intensity/Depth Moderate Body Position Sidelying 2 Body Location Glute Med Mobilization Type Strumming Sustained Pressure Intensity/Depth Moderate Body Position Sidelying 1 Body Location Lumbar Erector Spinae Mobilization Type Myofascial Release Sustained Pressure Intensity/Depth Moderate Body Position Sidelying Joint Mobilizations 1 Joint Thoracic Spine Direction P->A Grade III Body Position Sidelying Manual Traction Lumbar Details Hip/Iliac crest depression Body Position Sidelying PT-OP-R Modalities Start: 08/06/17 17:30 Freq: Status: Active Protocol: Document 11/20/18 14:30 DCW (Rec: 11/20/18 15:15 DCW [id number]) Electric Stimulation Electric Stimulation Interferential Current (IFC) Body Location Lumbar Spine Duration (Minutes) 15 Patient Position Sitting Combined With Heat/Cold Hot Pack PT-OP-T Assessment and Plan Start: 08/06/17 17:30 Freq: Status: Active Protocol: Document 11/20/18 14:30 DCW (Rec: 11/20/18 15:15 DCW [id number]) Physical Therapy Assessment Impairments Impairments Functional Mobility Pain Posture ROM Soft Tissue Mobility Strength Tone Goals Six Impairment Difficulty of getting in the car Skilled Nursing Goal (LTG) Patient will get in to the car with proper mechanics without difficulty anifficultynd low back pain LTG Duration 5 wks Five Impairment Difficulty of lifting laundry from floor to shoulder level Skilled Nursing Goal (LTG) Patient will learn good lifting mechanics to prevent further low back pain. LTG Duration 4 wks Four Impairment Palpable muscle tone Train Brakeman Goal (LTG) Pt muscle tone grossly to mild levels of tone LTG Duration 4 wks Three Impairment Thoracic Spine ROM Short Term Goal (STG) Thoracic spine to lacking 10 degrees from neutral at full extension STG Duration Met Skilled Nursing Goal (LTG) Thoracic spine to neutral at full extension LTG Duration 5 wks Two Impairment Pain Skilled Nursing Goal (LTG) Pt to report decreased pain to a max of 4/10 LTG Duration no improvement One Impairment Activity tolerance Skilled Nursing Goal (LTG) Pt to tolerate gardening with no increased pain for three hours LTG Duration 4 wks - Improving Assessment Summary Assessment Pt much improved today, fewer tender areas along her paraspinals, and more mobile through her shoulders. Physical Therapy Plan Frequency and Duration Frequency of Treatment 1x/Week Duration of Treatment 8 wks Plan of Care Start Date 10/22/18 Plan of Care End Date 12/17/18 Therapeutic Interventions Therapeutic Interventions Aquatic Therapy Home Exercise Program Joint Mobilizations Manual Therapy Neuromuscular Re-education Self-Care/Home Management Soft Tissue Mobilization Therapeutic Exercises Modalities Cold Pack/Ice Massage Electric Stimulation Hot Packs Next Visit Focus/Plan Next Note Type Treatment Note Next Visit Plan Thoracic and Lumbar ROM, Shoulder strengthening, improved posture.
--- NOTE | 2018-11-27 14:29 | PT.OTN ---
Current Diagnoses Scoliosis, unspecified (11/27/18) Spondylosis without myelopathy or radiculopathy, cervical region (11/27/18) Pain in thoracic spine (11/27/18) Physical Therapy Treatment Note PT-OP-A Visit Information Start: 08/06/17 17:30 Freq: Status: Active Protocol: Document 11/27/18 13:45 DCW (Rec: 11/27/18 14:29 DCW [id number]) Out-Patient Physical Therapy Visit Information Visit Information Visit Type Treatment Note Visit Start Time 14:30 Visit Stop Time 15:25 Total Visit Minutes 55 Visit Number 65 Number of MANAGER HOUSEKEEPING Visits 0 Evaluation Information Evaluation Date 05/28/17 PT-OP-B Current Condition Start: 10/04/17 14:21 Freq: Status: Active Protocol: Document 12/10/17 13:45 DCW (Rec: 12/10/17 13:56 DCW [id number]) Current Condition History of Current Condition History of Current Condition Please see patient's chart in Therapy Source for complete history and initial evaluation Current Functional Impairments (Reported) Functional Limitations- Recreation/ Pt unable to tolerate yard- Hobbies work more than 60 minutes without significant increased pain in her shoulders. PT-OP-C Subjective Start: 08/06/17 17:30 Freq: Status: Active Protocol: Document 11/27/18 13:45 DCW (Rec: 11/27/18 14:29 DCW [id number]) OP-PT Subjective Patient Comments Patient Comments Pt notes she is feeling alright today, although reports her left shoulder hurts more than normal today. PT-OP-F Manual Assessment Start: 10/04/17 14:21 Freq: Status: Active Protocol: Document 08/19/18 14:30 DCW (Rec: 08/19/18 14:48 DCW [id number]) Manual Assessments Soft Tissue Assessment Soft Tissue Mobility Assessment Moderate tone in Bilateral thoracic and lumbar paraspinals, piriformis, iliopsoas, and quadratus lumborum. Mild tone in bilateral hamstrings and adductor vinod PT-OP-J Posture/Palpation/Skin Start: 10/04/17 14:21 Freq: Status: Active Protocol: Document 10/22/18 14:21 EA (Rec: 10/22/18 14:31 EA [id number]) Posture Evaluation Position Standing Head/C-Spine Posture Forward Head T-Spine Posture Flexible Scoliosis on (L), Increased Kyphosis L-Spine Posture Flexible Scoliosis on (R) Pelvis Posture (L) Iliac Crest Superior Hip Posture (L) Flexed,(R) Flexed PT-OP-K Range of Motion Start: 10/04/17 14:21 Freq: Status: Active Protocol: Document 08/19/18 14:30 DCW (Rec: 08/19/18 14:48 DCW [id number]) Lumbar Spine Range of Motion Lumbar Spine Active Degrees Testing Position Standing Comments Max extension, pt is forward flexed 3? at her thoracic spine Shoulder Goniometric Range of Motion Shoulder Left Active Shoulder ROM WFL No Testing Position Sitting Flexion 143 Abduction 130 External Rotation at 0 degrees Abduction 52 Right Active Shoulder ROM WFL No Testing Position Sitting Flexion 144 Abduction 124 External Rotation at 0 degrees Abduction 60 PT-OP-M Strength Start: 10/04/17 14:21 Freq: Status: Active Protocol: Document 08/19/18 14:30 DCW (Rec: 08/19/18 14:48 DCW [id number]) Shoulder Strength Shoulder Manual Muscle Testing Right Flexion 4 Good Abduction (C5) 4+ Good+ External Rotation 4 Good Internal Rotation 5 Normal Left Flexion 4+ Good+ Abduction (C5) 4+ Good+ External Rotation 4+ Good+ Internal Rotation 5 Normal PT-OP-Q Treatments Start: 08/06/17 17:30 Freq: Status: Active Protocol: Document 11/27/18 13:45 DCW (Rec: 11/27/18 14:29 DCW [id number]) Cardio Equipment Upper Body Ergometer (UBE) Duration (Minutes) 5 RPM 60 Seat Position 12 Height 3 Therapeutic Exercises Supine Exercises Serratus Punch Supine Exercise Name Serratus anterior punch with wand Side bilateral Resistance 5# Equipment Used wand Shoulder Flexion Supine Exercise Name Flex with wand Side bilateral Resistance 5# Equipment Used wand Comments Pain-free ROM 1 Supine Exercise Name Supine on Towel roll at T10-12 Side bilateral Comments increase thoracolumbar extension Sitting Exercises PROM Abduction Sitting Exercise Name Pullies GH Abduction PROM Flexion Sitting Exercise Name Pullies GH flexion Side bilateral Manual Therapy Treatment Soft Tissue Mobilization 4 Body Location Piriformis Mobilization Type Strumming,Sustained Pressure, Trigger Point Release Intensity/Depth Deep Body Position Sidelying 3 Body Location Quadratus Lumborum Mobilization Type Myofascial Release,Strumming, Sustained Pressure Intensity/Depth Moderate Body Position Sidelying 2 Body Location Glute Med Mobilization Type Strumming,Sustained Pressure Intensity/Depth Moderate Body Position Sidelying 1 Body Location Lumbar Erector Spinae Mobilization Type Myofascial Release,Sustained Pressure Intensity/Depth Moderate Body Position Sidelying Joint Mobilizations 1 Joint Thoracic Spine Direction P->A Grade III Body Position Sidelying Manual Traction Lumbar Details Hip/Iliac crest depression Body Position Sidelying PT-OP-R Modalities Start: 08/06/17 17:30 Freq: Status: Active Protocol: Document 11/27/18 13:45 DCW (Rec: 11/27/18 14:29 DCW [id number]) Electric Stimulation Electric Stimulation Interferential Current (IFC) Body Location Lumbar Spine Duration (Minutes) 15 Patient Position Sitting Combined With Heat/Cold Hot Pack PT-OP-T Assessment and Plan Start: 08/06/17 17:30 Freq: Status: Active Protocol: Document 11/27/18 13:45 DCW (Rec: 11/27/18 14:29 DCW [id number]) Physical Therapy Assessment Impairments Impairments Functional Mobility,Pain, Posture,ROM,Soft Tissue Mobility,Strength,Tone Goals Six Impairment Difficulty of getting in the car Plating Technician Goal (LTG) Patient will get in to the car with proper mechanics without difficulty anifficultynd low back pain LTG Duration 5 wks Five Impairment Difficulty of lifting laundry from floor to shoulder level Half-Way Goal (LTG) Patient will learn good lifting mechanics to prevent further low back pain. LTG Duration 4 wks Four Impairment Palpable muscle tone Plating Technician Goal (LTG) Pt muscle tone grossly to mild levels of tone LTG Duration 4 wks Three Impairment Thoracic Spine ROM Short Term Goal (STG) Thoracic spine to lacking 10 degrees from neutral at full extension STG Duration Met Plating Technician Goal (LTG) Thoracic spine to neutral at full extension LTG Duration 5 wks Two Impairment Pain Half-Way Goal (LTG) Pt to report decreased pain to a max of 4/10 LTG Duration no improvement One Impairment Activity tolerance Half-Way Goal (LTG) Pt to tolerate gardening with no increased pain for three hours LTG Duration 4 wks - Improving Assessment Summary Assessment Pt's sore shoulder today tolerated TherEx well, no continued complaints following therapy. Physical Therapy Plan Frequency and Duration Frequency of Treatment 1x/Week Duration of Treatment 8 wks Plan of Care Start Date 10/22/18 Plan of Care End Date 12/17/18 Therapeutic Interventions Therapeutic Interventions Aquatic Therapy,Home Exercise Program,Joint Mobilizations, Manual Therapy,Neuromuscular Re-education,Self-Care/Home Management,Soft Tissue Mobilization,Therapeutic Exercises Modalities Cold Pack/Ice Massage,Electric Stimulation,Hot Packs Next Visit Focus/Plan Next Note Type Treatment Note Next Visit Plan Thoracic and Lumbar ROM, Shoulder strengthening, improved posture.
--- NOTE | 2018-12-04 14:29 | PT.OTN ---
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) Pain in thoracic spine (12/04/18) Physical Therapy Treatment Note PT-OP-A Visit Information Start: 08/06/17 17:30 Freq: Status: Active Protocol: Document 12/04/18 13:45 DCW (Rec: 12/04/18 14:29 DCW [id number]) Out-Patient Physical Therapy Visit Information Visit Information Visit Type Treatment Note Visit Start Time 13:45 Visit Stop Time 14:40 Total Visit Minutes 55 Visit Number 67 Number of SAS ETL DEVELOPER Visits 0 Evaluation Information Evaluation Date 05/28/17 PT-OP-B Current Condition Start: 10/04/17 14:21 Freq: Status: Active Protocol: Document 12/10/17 13:45 DCW (Rec: 12/10/17 13:56 DCW [id number]) Current Condition History of Current Condition History of Current Condition Please see patient's chart in Therapy Source for complete history and initial evaluation Current Functional Impairments (Reported) Functional Limitations- Recreation/ Pt unable to tolerate yard- Hobbies work more than 60 minutes without significant increased pain in her shoulders. PT-OP-C Subjective Start: 08/06/17 17:30 Freq: Status: Active Protocol: Document 12/04/18 13:45 DCW (Rec: 12/04/18 14:29 DCW [id number]) OP-PT Subjective Patient Comments Patient Comments Pt notes that her left posterior hip and left shoulder are bothering her a little more today, I think it might be my mattress. PT-OP-F Manual Assessment Start: 10/04/17 14:21 Freq: Status: Active Protocol: Document 08/19/18 14:30 DCW (Rec: 08/19/18 14:48 DCW [id number]) Manual Assessments Soft Tissue Assessment Soft Tissue Mobility Assessment Moderate tone in Bilateral thoracic and lumbar paraspinals, piriformis, iliopsoas, and quadratus lumborum. Mild tone in bilateral hamstrings and adductor vinod PT-OP-J Posture/Palpation/Skin Start: 10/04/17 14:21 Freq: Status: Active Protocol: Document 10/22/18 14:21 EA (Rec: 10/22/18 14:31 EA [id number]) Posture Evaluation Position Standing Head/C-Spine Posture Forward Head T-Spine Posture Flexible Scoliosis on (L), Increased Kyphosis L-Spine Posture Flexible Scoliosis on (R) Pelvis Posture (L) Iliac Crest Superior Hip Posture (L) Flexed,(R) Flexed PT-OP-K Range of Motion Start: 10/04/17 14:21 Freq: Status: Active Protocol: Document 08/19/18 14:30 DCW (Rec: 08/19/18 14:48 DCW [id number]) Lumbar Spine Range of Motion Lumbar Spine Active Degrees Testing Position Standing Comments Max extension, pt is forward flexed 3? at her thoracic spine Shoulder Goniometric Range of Motion Shoulder Left Active Shoulder ROM WFL No Testing Position Sitting Flexion 143 Abduction 130 External Rotation at 0 degrees Abduction 52 Right Active Shoulder ROM WFL No Testing Position Sitting Flexion 144 Abduction 124 External Rotation at 0 degrees Abduction 60 PT-OP-M Strength Start: 10/04/17 14:21 Freq: Status: Active Protocol: Document 08/19/18 14:30 DCW (Rec: 08/19/18 14:48 DCW [id number]) Shoulder Strength Shoulder Manual Muscle Testing Right Flexion 4 Good Abduction (C5) 4+ Good+ External Rotation 4 Good Internal Rotation 5 Normal Left Flexion 4+ Good+ Abduction (C5) 4+ Good+ External Rotation 4+ Good+ Internal Rotation 5 Normal PT-OP-Q Treatments Start: 08/06/17 17:30 Freq: Status: Active Protocol: Document 12/04/18 13:45 DCW (Rec: 12/04/18 14:29 DCW [id number]) Cardio Equipment Upper Body Ergometer (UBE) Duration (Minutes) 5 RPM 60 Seat Position 12 Height 3 Therapeutic Exercises Supine Exercises 1 Supine Exercise Name Supine on Towel roll at T10-12 Side bilateral Comments increase thoracolumbar extension Sitting Exercises PROM Abduction Sitting Exercise Name Pullies GH Abduction PROM Flexion Sitting Exercise Name Pullies GH flexion Side bilateral Standing Exercises Rows Standing Exercise Name Rows Side bilateral Resistance Lv 3 Equipment Used T-band Shoulder Extension Standing Exercise Name Extension Side bilateral Resistance Lv 3 Equipment Used T-band Manual Therapy Treatment Soft Tissue Mobilization 4 Body Location Piriformis Mobilization Type Strumming,Sustained Pressure, Trigger Point Release Intensity/Depth Deep Body Position Sidelying 3 Body Location Quadratus Lumborum Mobilization Type Myofascial Release,Strumming, Sustained Pressure Intensity/Depth Moderate Body Position Sidelying 2 Body Location Glute Med Mobilization Type Strumming,Sustained Pressure Intensity/Depth Moderate Body Position Sidelying 1 Body Location Lumbar Erector Spinae Mobilization Type Myofascial Release,Sustained Pressure Intensity/Depth Moderate Body Position Sidelying Joint Mobilizations 1 Joint Thoracic Spine Direction P->A Grade III Body Position Sidelying Manual Traction Lumbar Details Hip/Iliac crest depression Body Position Sidelying PT-OP-R Modalities Start: 08/06/17 17:30 Freq: Status: Active Protocol: Document 12/04/18 13:45 DCW (Rec: 12/04/18 14:29 DCW [id number]) Electric Stimulation Electric Stimulation Interferential Current (IFC) Body Location Lumbar Spine Duration (Minutes) 15 Patient Position Sitting Combined With Heat/Cold Hot Pack PT-OP-T Assessment and Plan Start: 08/06/17 17:30 Freq: Status: Active Protocol: Document 12/04/18 13:45 DCW (Rec: 12/04/18 14:29 DCW [id number]) Physical Therapy Assessment Impairments Impairments Functional Mobility,Pain, Posture,ROM,Soft Tissue Mobility,Strength,Tone Goals Six Impairment Difficulty of getting in the car Longterm Goal (LTG) Patient will get in to the car with proper mechanics without difficulty anifficultynd low back pain LTG Duration 5 wks Five Impairment Difficulty of lifting laundry from floor to shoulder level Longterm Goal (LTG) Patient will learn good lifting mechanics to prevent further low back pain. LTG Duration 4 wks Four Impairment Palpable muscle tone Longterm Goal (LTG) Pt muscle tone grossly to mild levels of tone LTG Duration 4 wks Three Impairment Thoracic Spine ROM Short Term Goal (STG) Thoracic spine to lacking 10 degrees from neutral at full extension STG Duration [place] [employer] Goal (LTG) Thoracic spine to neutral at full extension LTG Duration 5 wks Two Impairment Pain Longterm Goal (LTG) Pt to report decreased pain to a max of 4/10 LTG Duration no improvement One Impairment Activity tolerance Longterm Goal (LTG) Pt to tolerate gardening with no increased pain for three hours LTG Duration 4 wks - Improving Assessment Summary Assessment Pt presenting today with decreased tenderness compared to last week, tolerated all treatment well today. Physical Therapy Plan Frequency and Duration Frequency of Treatment 1x/Week Duration of Treatment 8 wks Plan of Care Start Date 10/22/18 Plan of Care End Date 12/17/18 Therapeutic Interventions Therapeutic Interventions Aquatic Therapy,Home Exercise Program,Joint Mobilizations, Manual Therapy,Neuromuscular Re-education,Self-Care/Home Management,Soft Tissue Mobilization,Therapeutic Exercises Modalities Cold Pack/Ice Massage,Electric Stimulation,Hot Packs Next Visit Focus/Plan Next Note Type Treatment Note Next Visit Plan Thoracic and Lumbar ROM, Shoulder strengthening, improved posture.
--- NOTE | 2018-12-18 14:34 | PT.OTN ---
Current Diagnoses Scoliosis, unspecified (12/18/18) Spondylosis without myelopathy or radiculopathy, cervical region (12/18/18) Pain in thoracic spine (12/18/18) Physical Therapy Treatment Note PT-OP-A Visit Information Start: 08/06/17 17:30 Freq: Status: Active Protocol: Document 12/18/18 13:45 DCW (Rec: 12/18/18 14:34 DCW [id number]) Out-Patient Physical Therapy Visit Information Visit Information Visit Type Treatment Note Visit Start Time 13:45 Visit Stop Time 14:40 Total Visit Minutes 55 Visit Number 68 Number of DORMITORY KEEPER Visits 0 Evaluation Information Evaluation Date 05/28/17 PT-OP-B Current Condition Start: 10/04/17 14:21 Freq: Status: Active Protocol: Document 12/10/17 13:45 DCW (Rec: 12/10/17 13:56 DCW [id number]) Current Condition History of Current Condition History of Current Condition Please see patient's chart in Therapy Source for complete history and initial evaluation Current Functional Impairments (Reported) Functional Limitations- Recreation/ Pt unable to tolerate yard- Hobbies work more than 60 minutes without significant increased pain in her shoulders. PT-OP-C Subjective Start: 08/06/17 17:30 Freq: Status: Active Protocol: Document 12/18/18 13:45 DCW (Rec: 12/18/18 14:34 DCW [id number]) OP-PT Subjective Patient Comments Patient Comments Pt feels like her back has been not terrible recently. PT-OP-F Manual Assessment Start: 10/04/17 14:21 Freq: Status: Active Protocol: Document 12/18/18 13:45 DCW (Rec: 12/18/18 14:23 DCW [id number]) Manual Assessments Soft Tissue Assessment Soft Tissue Mobility Assessment Moderate tone in Bilateral thoracic and lumbar paraspinals, piriformis, iliopsoas, and quadratus lumborum. Mild tone in bilateral hamstrings and adductor vinod PT-OP-J Posture/Palpation/Skin Start: 10/04/17 14:21 Freq: Status: Active Protocol: Document 12/18/18 13:45 DCW (Rec: 12/18/18 14:23 DCW [id number]) Posture Evaluation Position Standing Head/C-Spine Posture Forward Head T-Spine Posture Flexible Scoliosis on (L), Increased Kyphosis L-Spine Posture Flexible Scoliosis on (R) Pelvis Posture (L) Iliac Crest Superior Hip Posture (L) Flexed,(R) Flexed Comments Posture Comments Pt's jorge with cues to stand as tall as possible: 5'1 /c 1 .25 heel PT-OP-K Range of Motion Start: 10/04/17 14:21 Freq: Status: Active Protocol: Document 12/18/18 13:45 DCW (Rec: 12/18/18 14:23 DCW [id number]) Lumbar Spine Range of Motion Lumbar Spine Active Degrees Testing Position Standing Comments Max extension, pt is forward flexed 3? at her thoracic spine Shoulder Goniometric Range of Motion Shoulder Left Active Shoulder ROM WFL No Testing Position Sitting Flexion 160 Abduction 153 External Rotation at 0 degrees Abduction 52 Right Active Shoulder ROM WFL No Testing Position Sitting Flexion 158 Abduction 125 External Rotation at 0 degrees Abduction 60 PT-OP-M Strength Start: 10/04/17 14:21 Freq: Status: Active Protocol: Document 12/18/18 13:45 DCW (Rec: 12/18/18 14:23 DCW [id number]) Shoulder Strength Shoulder Manual Muscle Testing Right Flexion 4 Good Abduction (C5) 4+ Good+ External Rotation 4+ Good+ Internal Rotation 5 Normal Left Flexion 4 Good Abduction (C5) 4+ Good+ External Rotation 4+ Good+ Internal Rotation 5 Normal PT-OP-Q Treatments Start: 08/06/17 17:30 Freq: Status: Active Protocol: Document 12/18/18 13:45 DCW (Rec: 12/18/18 14:34 DCW [id number]) Cardio Equipment Upper Body Ergometer (UBE) Duration (Minutes) 5 RPM 60 Seat Position 12 Height 3 Therapeutic Exercises Sitting Exercises 1 Sitting Exercise Name Shoulder retraction Manual Therapy Treatment Soft Tissue Mobilization 4 Body Location Piriformis Mobilization Type Strumming,Sustained Pressure, Trigger Point Release Intensity/Depth Deep Body Position Sidelying 3 Body Location Quadratus Lumborum Mobilization Type Myofascial Release,Strumming, Sustained Pressure Intensity/Depth Moderate Body Position Sidelying 2 Body Location Glute Med Mobilization Type Strumming,Sustained Pressure Intensity/Depth Moderate Body Position Sidelying 1 Body Location Lumbar Erector Spinae Mobilization Type Myofascial Release,Sustained Pressure Intensity/Depth Moderate Body Position Sidelying Joint Mobilizations 1 Joint Thoracic Spine Direction P->A Grade III Body Position Sidelying Manual Traction Lumbar Details Hip/Iliac crest depression Body Position Sidelying PT-OP-R Modalities Start: 08/06/17 17:30 Freq: Status: Active Protocol: Document 12/18/18 13:45 DCW (Rec: 12/18/18 14:34 DCW [id number]) Electric Stimulation Electric Stimulation Interferential Current (IFC) Body Location Lumbar Spine Duration (Minutes) 15 Patient Position Sitting Combined With Heat/Cold Hot Pack PT-OP-T Assessment and Plan Start: 08/06/17 17:30 Freq: Status: Active Protocol: Document 12/18/18 13:45 DCW (Rec: 12/18/18 14:34 DCW [id number]) Physical Therapy Assessment Impairments Impairments Functional Mobility,Pain, Posture,ROM,Soft Tissue Mobility,Strength,Tone Goals Six Impairment Difficulty of getting in the car [employer] Supervisor Goal (LTG) Patient will get in to the car with proper mechanics without difficulty anifficultynd low back pain LTG Duration 5 wks Five Impairment Difficulty of lifting laundry from floor to shoulder level [employer] Supervisor Goal (LTG) Patient will learn good lifting mechanics to prevent further low back pain. LTG Duration 4 wks Four Impairment Palpable muscle tone [employer] Supervisor Goal (LTG) Pt muscle tone grossly to mild levels of tone LTG Duration 4 wks Three Impairment Thoracic Spine ROM Short Term Goal (STG) Thoracic spine to lacking 10 degrees from neutral at full extension STG Duration Met [employer] Supervisor Goal (LTG) Thoracic spine to neutral at full extension LTG Duration 5 wks Two Impairment Pain Retirement Goal (LTG) Pt to report decreased pain to a max of 4/10 LTG Duration 4 wks - improving (5/10 on ) One Impairment Activity tolerance Retirement Goal (LTG) Pt to tolerate gardening with no increased pain for three hours LTG Duration 4 wks - Improving Assessment Summary Assessment Pt displays substantial improvement in shoulder ROM bilaterally, notes improved functional mobility. Pt's posture is fairly unchanged, however pt has been experiencing fewer instances of her ribs rubbing on her iliac crest Physical Therapy Plan Frequency and Duration Frequency of Treatment 1x/Week Duration of Treatment 3 months Plan of Care Start Date 12/18/18 Plan of Care End Date 03/18/19 Therapeutic Interventions Therapeutic Interventions Aquatic Therapy,Home Exercise Program,Joint Mobilizations, Manual Therapy,Neuromuscular Re-education,Self-Care/Home Management,Soft Tissue Mobilization,Therapeutic Exercises Modalities Cold Pack/Ice Massage,Electric Stimulation,Hot Packs Next Visit Focus/Plan Next Note Type Treatment Note Next Visit Plan Thoracic and Lumbar ROM, Shoulder strengthening, improved posture.
--- NOTE | 2018-12-18 14:35 | PT.OPPOC ---
Current Diagnoses Scoliosis, unspecified (12/18/18) Spondylosis without myelopathy or radiculopathy, cervical region (12/18/18) Pain in thoracic spine (12/18/18) Visit Care Team Role Provider Type Jia Sheridan MD Attending Provider Physician Family Provider Primary Care Provider Specialty: Family Practice Address: [address] [place] [address], [id number] Email: [email or web address] Plan Of Care PT-OP-T Assessment and Plan Start: 08/06/17 17:30 Freq: Status: Active Protocol: Document 12/18/18 13:45 DCW (Rec: 12/18/18 14:34 DCW [id number]) Physical Therapy Assessment Impairments Impairments Functional Mobility,Pain, Posture,ROM,Soft Tissue Mobility,Strength,Tone Goals Six Impairment Difficulty of getting in the car [facility] Goal (LTG) Patient will get in to the car with proper mechanics without difficulty anifficultynd low back pain LTG Duration 5 wks Five Impairment Difficulty of lifting laundry from floor to shoulder level Embroidery Supervisor Goal (LTG) Patient will learn good lifting mechanics to prevent further low back pain. LTG Duration 4 wks Four Impairment Palpable muscle tone [facility] Goal (LTG) Pt muscle tone grossly to mild levels of tone LTG Duration 4 wks Three Impairment Thoracic Spine ROM Short Term Goal (STG) Thoracic spine to lacking 10 degrees from neutral at full extension STG Duration Met Embroidery Supervisor Goal (LTG) Thoracic spine to neutral at full extension LTG Duration 5 wks Two Impairment Pain [facility] Goal (LTG) Pt to report decreased pain to a max of 4/10 LTG Duration 4 wks - improving (5/10 on ) One Impairment Activity tolerance Embroidery Supervisor Goal (LTG) Pt to tolerate gardening with no increased pain for three hours LTG Duration 4 wks - Improving Assessment Summary Assessment Pt displays substantial improvement in shoulder ROM bilaterally, notes improved functional mobility. Pt's posture is fairly unchanged, however pt has been experiencing fewer instances of her ribs rubbing on her iliac crest Physical Therapy Plan Frequency and Duration Frequency of Treatment 1x/Week Duration of Treatment 3 months Plan of Care Start Date 12/18/18 Plan of Care End Date 03/18/19 Therapeutic Interventions Therapeutic Interventions Aquatic Therapy,Home Exercise Program,Joint Mobilizations, Manual Therapy,Neuromuscular Re-education,Self-Care/Home Management,Soft Tissue Mobilization,Therapeutic Exercises Modalities Cold Pack/Ice Massage,Electric Stimulation,Hot Packs Next Visit Focus/Plan Next Note Type Treatment Note Next Visit Plan Thoracic and Lumbar ROM, Shoulder strengthening, improved posture. Plan of Care Dates Plan of Care Start Date 12/18/18 Plan of Care End Date 03/18/19
--- NOTE | 2018-12-25 14:27 | PT.OTN ---
Current Diagnoses Scoliosis, unspecified (12/25/18) Spondylosis without myelopathy or radiculopathy, cervical region (12/25/18) Pain in thoracic spine (12/25/18) Physical Therapy Treatment Note PT-OP-A Visit Information Start: 08/06/17 17:30 Freq: Status: Active Protocol: Document 12/25/18 13:45 DCW (Rec: 12/25/18 14:27 DCW [id number]) Out-Patient Physical Therapy Visit Information Visit Information Visit Type Treatment Note Visit Start Time 13:45 Visit Stop Time 14:40 Total Visit Minutes 55 Visit Number 69 Number of CORRECTIVE THERAPIST Visits 0 Evaluation Information Evaluation Date 05/28/17 PT-OP-B Current Condition Start: 10/04/17 14:21 Freq: Status: Active Protocol: Document 12/10/17 13:45 DCW (Rec: 12/10/17 13:56 DCW [id number]) Current Condition History of Current Condition History of Current Condition Please see patient's chart in Therapy Source for complete history and initial evaluation Current Functional Impairments (Reported) Functional Limitations- Recreation/ Pt unable to tolerate yard- Hobbies work more than 60 minutes without significant increased pain in her shoulders. PT-OP-C Subjective Start: 08/06/17 17:30 Freq: Status: Active Protocol: Document 12/25/18 13:45 DCW (Rec: 12/25/18 14:27 DCW [id number]) OP-PT Subjective Patient Comments Patient Comments Pt reports she is miserable today, but it is more due to mental and emotional than anything physical. Pt reports that her dog is dying, she has an upcoming procedure on her eye, and her is undergoing treatment for skin cancer, and with it all happening at once, she is just overwhelmed. PT-OP-F Manual Assessment Start: 10/04/17 14:21 Freq: Status: Active Protocol: Document 12/18/18 13:45 DCW (Rec: 12/18/18 14:23 DCW [id number]) Manual Assessments Soft Tissue Assessment Soft Tissue Mobility Assessment Moderate tone in Bilateral thoracic and lumbar paraspinals, piriformis, iliopsoas, and quadratus lumborum. Mild tone in bilateral hamstrings and adductor vinod PT-OP-J Posture/Palpation/Skin Start: 10/04/17 14:21 Freq: Status: Active Protocol: Document 12/18/18 13:45 DCW (Rec: 12/18/18 14:23 DCW [id number]) Posture Evaluation Position Standing Head/C-Spine Posture Forward Head T-Spine Posture Flexible Scoliosis on (L), Increased Kyphosis L-Spine Posture Flexible Scoliosis on (R) Pelvis Posture (L) Iliac Crest Superior Hip Posture (L) Flexed,(R) Flexed Comments Posture Comments Pt's jorge with cues to stand as tall as possible: 5'1 /c 1 .25 heel PT-OP-K Range of Motion Start: 10/04/17 14:21 Freq: Status: Active Protocol: Document 12/18/18 13:45 DCW (Rec: 12/18/18 14:23 DCW [id number]) Lumbar Spine Range of Motion Lumbar Spine Active Degrees Testing Position Standing Comments Max extension, pt is forward flexed 3? at her thoracic spine Shoulder Goniometric Range of Motion Shoulder Left Active Shoulder ROM WFL No Testing Position Sitting Flexion 160 Abduction 153 External Rotation at 0 degrees Abduction 52 Right Active Shoulder ROM WFL No Testing Position Sitting Flexion 158 Abduction 125 External Rotation at 0 degrees Abduction 60 PT-OP-M Strength Start: 10/04/17 14:21 Freq: Status: Active Protocol: Document 12/18/18 13:45 DCW (Rec: 12/18/18 14:23 DCW [id number]) Shoulder Strength Shoulder Manual Muscle Testing Right Flexion 4 Good Abduction (C5) 4+ Good+ External Rotation 4+ Good+ Internal Rotation 5 Normal Left Flexion 4 Good Abduction (C5) 4+ Good+ External Rotation 4+ Good+ Internal Rotation 5 Normal PT-OP-Q Treatments Start: 08/06/17 17:30 Freq: Status: Active Protocol: Document 12/25/18 13:45 DCW (Rec: 12/25/18 14:27 DCW [id number]) Cardio Equipment Upper Body Ergometer (UBE) Duration (Minutes) 5 RPM 60 Seat Position 12 Height 3 Therapeutic Exercises Supine Exercises 1 Supine Exercise Name Supine on Towel roll at T10-12 Side bilateral Comments increase thoracolumbar extension Sitting Exercises PROM Abduction Sitting Exercise Name Pullies GH Abduction PROM Flexion Sitting Exercise Name Pullies GH flexion Side bilateral Standing Exercises Rows Standing Exercise Name Rows Side bilateral Resistance Lv 3 Equipment Used T-band Shoulder Extension Standing Exercise Name Extension Side bilateral Resistance Lv 3 Equipment Used T-band Manual Therapy Treatment Soft Tissue Mobilization 4 Body Location Piriformis Mobilization Type Strumming,Sustained Pressure, Trigger Point Release Intensity/Depth Deep Body Position Sidelying 3 Body Location Quadratus Lumborum Mobilization Type Myofascial Release,Strumming, Sustained Pressure Intensity/Depth Moderate Body Position Sidelying 2 Body Location Glute Med Mobilization Type Strumming,Sustained Pressure Intensity/Depth Moderate Body Position Sidelying 1 Body Location Lumbar Erector Spinae Mobilization Type Myofascial Release,Sustained Pressure Intensity/Depth Moderate Body Position Sidelying Joint Mobilizations 1 Joint Thoracic Spine Direction P->A Grade III Body Position Sidelying Manual Traction Lumbar Details Hip/Iliac crest depression Body Position Sidelying PT-OP-R Modalities Start: 08/06/17 17:30 Freq: Status: Active Protocol: Document 12/25/18 13:45 DCW (Rec: 12/25/18 14:27 DCW [id number]) Electric Stimulation Electric Stimulation Interferential Current (IFC) Body Location Lumbar Spine Duration (Minutes) 15 Patient Position Sitting Combined With Heat/Cold Hot Pack PT-OP-T Assessment and Plan Start: 08/06/17 17:30 Freq: Status: Active Protocol: Document 12/25/18 13:45 DCW (Rec: 12/25/18 14:27 DCW [id number]) Physical Therapy Assessment Impairments Impairments Functional Mobility,Pain, Posture,ROM,Soft Tissue Mobility,Strength,Tone Goals Six Impairment Difficulty of getting in the car [facility] Home Goal (LTG) Patient will get in to the car with proper mechanics without difficulty anifficultynd low back pain LTG Duration 5 wks Five Impairment Difficulty of lifting laundry from floor to shoulder level [facility] Home Goal (LTG) Patient will learn good lifting mechanics to prevent further low back pain. LTG Duration 4 wks Four Impairment Palpable muscle tone [facility] Home Goal (LTG) Pt muscle tone grossly to mild levels of tone LTG Duration 4 wks Three Impairment Thoracic Spine ROM Short Term Goal (STG) Thoracic spine to lacking 10 degrees from neutral at full extension STG Duration Met [facility] Home Goal (LTG) Thoracic spine to neutral at full extension LTG Duration 5 wks Two Impairment Pain Maintainer Plant Goal (LTG) Pt to report decreased pain to a max of 4/10 LTG Duration 4 wks - improving (5/10 on ) One Impairment Activity tolerance Maintainer Plant Goal (LTG) Pt to tolerate gardening with no increased pain for three hours LTG Duration 4 wks - Improving Assessment Summary Assessment Pt right side much more tender than left today along paraspinals. Physical Therapy Plan Frequency and Duration Frequency of Treatment 1x/Week Duration of Treatment 3 months Plan of Care Start Date 12/18/18 Plan of Care End Date 03/18/19 Therapeutic Interventions Therapeutic Interventions Aquatic Therapy,Home Exercise Program,Joint Mobilizations, Manual Therapy,Neuromuscular Re-education,Self-Care/Home Management,Soft Tissue Mobilization,Therapeutic Exercises Modalities Cold Pack/Ice Massage,Electric Stimulation,Hot Packs Next Visit Focus/Plan Next Note Type Treatment Note Next Visit Plan Thoracic and Lumbar ROM, Shoulder strengthening, improved posture.
--- NOTE | 2019-01-01 14:36 | PT.OTN ---
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) Pain in thoracic spine (01/01/19) Physical Therapy Treatment Note PT-OP-A Visit Information Start: 08/06/17 17:30 Freq: Status: Active Protocol: Document 01/01/19 13:45 DCW (Rec: 01/01/19 14:36 DCW [id number]) Out-Patient Physical Therapy Visit Information Visit Information Visit Type Treatment Note Visit Start Time 13:45 Visit Stop Time 14:40 Total Visit Minutes 55 Visit Number 70 Number of RETAIL BUSINESS DEVELOPMENT MANAGER Visits 0 Evaluation Information Evaluation Date 05/28/17 PT-OP-B Current Condition Start: 10/04/17 14:21 Freq: Status: Active Protocol: Document 12/10/17 13:45 DCW (Rec: 12/10/17 13:56 DCW [id number]) Current Condition History of Current Condition History of Current Condition Please see patient's chart in Therapy Source for complete history and initial evaluation Current Functional Impairments (Reported) Functional Limitations- Recreation/ Pt unable to tolerate yard- Hobbies work more than 60 minutes without significant increased pain in her shoulders. PT-OP-C Subjective Start: 08/06/17 17:30 Freq: Status: Active Protocol: Document 01/01/19 13:45 DCW (Rec: 01/01/19 14:36 DCW [id number]) OP-PT Subjective Patient Comments Patient Comments Pt very upset today, had to put her dog down this morning. PT-OP-F Manual Assessment Start: 10/04/17 14:21 Freq: Status: Active Protocol: Document 12/18/18 13:45 DCW (Rec: 12/18/18 14:23 DCW [id number]) Manual Assessments Soft Tissue Assessment Soft Tissue Mobility Assessment Moderate tone in Bilateral thoracic and lumbar paraspinals, piriformis, iliopsoas, and quadratus lumborum. Mild tone in bilateral hamstrings and adductor vinod PT-OP-J Posture/Palpation/Skin Start: 10/04/17 14:21 Freq: Status: Active Protocol: Document 12/18/18 13:45 DCW (Rec: 12/18/18 14:23 DCW [id number]) Posture Evaluation Position Standing Head/C-Spine Posture Forward Head T-Spine Posture Flexible Scoliosis on (L), Increased Kyphosis L-Spine Posture Flexible Scoliosis on (R) Pelvis Posture (L) Iliac Crest Superior Hip Posture (L) Flexed,(R) Flexed Comments Posture Comments Pt's jorge with cues to stand as tall as possible: 5'1 /c 1 .25 heel PT-OP-K Range of Motion Start: 10/04/17 14:21 Freq: Status: Active Protocol: Document 12/18/18 13:45 DCW (Rec: 12/18/18 14:23 DCW [id number]) Lumbar Spine Range of Motion Lumbar Spine Active Degrees Testing Position Standing Comments Max extension, pt is forward flexed 3? at her thoracic spine Shoulder Goniometric Range of Motion Shoulder Left Active Shoulder ROM WFL No Testing Position Sitting Flexion 160 Abduction 153 External Rotation at 0 degrees Abduction 52 Right Active Shoulder ROM WFL No Testing Position Sitting Flexion 158 Abduction 125 External Rotation at 0 degrees Abduction 60 PT-OP-M Strength Start: 10/04/17 14:21 Freq: Status: Active Protocol: Document 12/18/18 13:45 DCW (Rec: 12/18/18 14:23 DCW [id number]) Shoulder Strength Shoulder Manual Muscle Testing Right Flexion 4 Good Abduction (C5) 4+ Good+ External Rotation 4+ Good+ Internal Rotation 5 Normal Left Flexion 4 Good Abduction (C5) 4+ Good+ External Rotation 4+ Good+ Internal Rotation 5 Normal PT-OP-Q Treatments Start: 08/06/17 17:30 Freq: Status: Active Protocol: Document 01/01/19 13:45 DCW (Rec: 01/01/19 14:36 DCW [id number]) Cardio Equipment Upper Body Ergometer (UBE) Duration (Minutes) 5 RPM 60 Seat Position 12 Height 3 Therapeutic Exercises Supine Exercises 1 Supine Exercise Name Supine on Towel roll at T10-12 Side bilateral Comments increase thoracolumbar extension Sitting Exercises PROM Abduction Sitting Exercise Name Pullies GH Abduction PROM Flexion Sitting Exercise Name Pullies GH flexion Side bilateral Manual Therapy Treatment Soft Tissue Mobilization 4 Body Location Piriformis Mobilization Type Strumming,Sustained Pressure, Trigger Point Release Intensity/Depth Deep Body Position Sidelying 3 Body Location Quadratus Lumborum Mobilization Type Myofascial Release,Strumming, Sustained Pressure Intensity/Depth Moderate Body Position Sidelying 2 Body Location Glute Med Mobilization Type Strumming,Sustained Pressure Intensity/Depth Moderate Body Position Sidelying 1 Body Location Lumbar Erector Spinae Mobilization Type Myofascial Release,Sustained Pressure Intensity/Depth Moderate Body Position Sidelying Joint Mobilizations 1 Joint Thoracic Spine Direction P->A Grade III Body Position Sidelying Manual Traction Lumbar Details Hip/Iliac crest depression Body Position Sidelying PT-OP-R Modalities Start: 08/06/17 17:30 Freq: Status: Active Protocol: Document 01/01/19 13:45 DCW (Rec: 01/01/19 14:36 DCW [id number]) Electric Stimulation Electric Stimulation Interferential Current (IFC) Body Location Lumbar Spine Duration (Minutes) 15 Patient Position Sitting Combined With Heat/Cold Hot Pack PT-OP-T Assessment and Plan Start: 08/06/17 17:30 Freq: Status: Active Protocol: Document 01/01/19 13:45 DCW (Rec: 01/01/19 14:36 DCW [id number]) Physical Therapy Assessment Impairments Impairments Functional Mobility,Pain, Posture,ROM,Soft Tissue Mobility,Strength,Tone Goals Six Impairment Difficulty of getting in the car Financial Sales Manager Goal (LTG) Patient will get in to the car with proper mechanics without difficulty anifficultynd low back pain LTG Duration 5 wks Five Impairment Difficulty of lifting laundry from floor to shoulder level Prison Goal (LTG) Patient will learn good lifting mechanics to prevent further low back pain. LTG Duration 4 wks Four Impairment Palpable muscle tone Financial Sales Manager Goal (LTG) Pt muscle tone grossly to mild levels of tone LTG Duration 4 wks Three Impairment Thoracic Spine ROM Short Term Goal (STG) Thoracic spine to lacking 10 degrees from neutral at full extension STG Duration Met Financial Sales Manager Goal (LTG) Thoracic spine to neutral at full extension LTG Duration 5 wks Two Impairment Pain Prison Goal (LTG) Pt to report decreased pain to a max of 4/10 LTG Duration 4 wks - improving (5/10 on ) One Impairment Activity tolerance Financial Sales Manager Goal (LTG) Pt to tolerate gardening with no increased pain for three hours LTG Duration 4 wks - Improving Assessment Summary Assessment Pt paraspinal tone less today than last week, reported decreased tenderness with palpation. Physical Therapy Plan Frequency and Duration Frequency of Treatment 1x/Week Duration of Treatment 3 months Plan of Care Start Date 12/18/18 Plan of Care End Date 03/18/19 Therapeutic Interventions Therapeutic Interventions Aquatic Therapy,Home Exercise Program,Joint Mobilizations, Manual Therapy,Neuromuscular Re-education,Self-Care/Home Management,Soft Tissue Mobilization,Therapeutic Exercises Modalities Cold Pack/Ice Massage,Electric Stimulation,Hot Packs Next Visit Focus/Plan Next Note Type Treatment Note Next Visit Plan Thoracic and Lumbar ROM, Shoulder strengthening, improved posture.
--- NOTE | 2019-01-06 15:59 | PT.OTN ---
Current Diagnoses Scoliosis, unspecified (01/06/19) Spondylosis without myelopathy or radiculopathy, cervical region (01/06/19) Pain in thoracic spine (01/06/19) Physical Therapy Treatment Note PT-OP-A Visit Information Start: 08/06/17 17:30 Freq: Status: Active Protocol: Document 01/06/19 15:15 DCW (Rec: 01/06/19 15:58 DCW [id number]) Out-Patient Physical Therapy Visit Information Visit Information Visit Type Treatment Note Visit Start Time 15:15 Visit Stop Time 16:10 Total Visit Minutes 55 Visit Number 71 Number of COAL SHOOTER Visits 0 Evaluation Information Evaluation Date 05/28/17 PT-OP-B Current Condition Start: 10/04/17 14:21 Freq: Status: Active Protocol: Document 12/10/17 13:45 DCW (Rec: 12/10/17 13:56 DCW [id number]) Current Condition History of Current Condition History of Current Condition Please see patient's chart in Therapy Source for complete history and initial evaluation Current Functional Impairments (Reported) Functional Limitations- Recreation/ Pt unable to tolerate yard- Hobbies work more than 60 minutes without significant increased pain in her shoulders. PT-OP-C Subjective Start: 08/06/17 17:30 Freq: Status: Active Protocol: Document 01/06/19 15:15 DCW (Rec: 01/06/19 15:58 DCW [id number]) OP-PT Subjective Patient Comments Patient Comments My back is popping every time I move, but my shoulders are feeling pretty good. PT-OP-F Manual Assessment Start: 10/04/17 14:21 Freq: Status: Active Protocol: Document 12/18/18 13:45 DCW (Rec: 12/18/18 14:23 DCW [id number]) Manual Assessments Soft Tissue Assessment Soft Tissue Mobility Assessment Moderate tone in Bilateral thoracic and lumbar paraspinals, piriformis, iliopsoas, and quadratus lumborum. Mild tone in bilateral hamstrings and adductor vinod PT-OP-J Posture/Palpation/Skin Start: 10/04/17 14:21 Freq: Status: Active Protocol: Document 12/18/18 13:45 DCW (Rec: 12/18/18 14:23 DCW [id number]) Posture Evaluation Position Standing Head/C-Spine Posture Forward Head T-Spine Posture Flexible Scoliosis on (L), Increased Kyphosis L-Spine Posture Flexible Scoliosis on (R) Pelvis Posture (L) Iliac Crest Superior Hip Posture (L) Flexed,(R) Flexed Comments Posture Comments Pt's jorge with cues to stand as tall as possible: 5'1 /c 1 .25 heel PT-OP-K Range of Motion Start: 10/04/17 14:21 Freq: Status: Active Protocol: Document 12/18/18 13:45 DCW (Rec: 12/18/18 14:23 DCW [id number]) Lumbar Spine Range of Motion Lumbar Spine Active Degrees Testing Position Standing Comments Max extension, pt is forward flexed 3? at her thoracic spine Shoulder Goniometric Range of Motion Shoulder Left Active Shoulder ROM WFL No Testing Position Sitting Flexion 160 Abduction 153 External Rotation at 0 degrees Abduction 52 Right Active Shoulder ROM WFL No Testing Position Sitting Flexion 158 Abduction 125 External Rotation at 0 degrees Abduction 60 PT-OP-M Strength Start: 10/04/17 14:21 Freq: Status: Active Protocol: Document 12/18/18 13:45 DCW (Rec: 12/18/18 14:23 DCW [id number]) Shoulder Strength Shoulder Manual Muscle Testing Right Flexion 4 Good Abduction (C5) 4+ Good+ External Rotation 4+ Good+ Internal Rotation 5 Normal Left Flexion 4 Good Abduction (C5) 4+ Good+ External Rotation 4+ Good+ Internal Rotation 5 Normal PT-OP-Q Treatments Start: 08/06/17 17:30 Freq: Status: Active Protocol: Document 01/06/19 15:15 DCW (Rec: 01/06/19 15:58 DCW [id number]) Cardio Equipment Upper Body Ergometer (UBE) Duration (Minutes) 5 RPM 60 Seat Position 12 Height 3 Therapeutic Exercises Supine Exercises 1 Supine Exercise Name Supine on Towel roll at T10-12 Side bilateral Comments increase thoracolumbar extension Standing Exercises Rows Standing Exercise Name Rows Side bilateral Resistance Lv 3 Equipment Used T-band Shoulder Extension Standing Exercise Name Extension Side bilateral Resistance Lv 3 Equipment Used T-band Manual Therapy Treatment Soft Tissue Mobilization 4 Body Location Piriformis Mobilization Type Strumming,Sustained Pressure, Trigger Point Release Intensity/Depth Deep Body Position Sidelying 3 Body Location Quadratus Lumborum Mobilization Type Myofascial Release,Strumming, Sustained Pressure Intensity/Depth Moderate Body Position Sidelying 2 Body Location Glute Med Mobilization Type Strumming,Sustained Pressure Intensity/Depth Moderate Body Position Sidelying 1 Body Location Lumbar Erector Spinae Mobilization Type Myofascial Release,Sustained Pressure Intensity/Depth Moderate Body Position Sidelying Joint Mobilizations 1 Joint Thoracic Spine Direction P->A Grade III Body Position Sidelying Manual Traction Lumbar Details Hip/Iliac crest depression Body Position Sidelying PT-OP-R Modalities Start: 08/06/17 17:30 Freq: Status: Active Protocol: Document 01/06/19 15:15 DCW (Rec: 01/06/19 15:58 DCW [id number]) Electric Stimulation Electric Stimulation Interferential Current (IFC) Body Location Lumbar Spine Duration (Minutes) 15 Patient Position Sitting Combined With Heat/Cold Hot Pack PT-OP-T Assessment and Plan Start: 08/06/17 17:30 Freq: Status: Active Protocol: Document 01/06/19 15:15 DCW (Rec: 01/06/19 15:58 DCW [id number]) Physical Therapy Assessment Impairments Impairments Functional Mobility,Pain, Posture,ROM,Soft Tissue Mobility,Strength,Tone Goals Six Impairment Difficulty of getting in the car Paint Prep Technician Goal (LTG) Patient will get in to the car with proper mechanics without difficulty anifficultynd low back pain LTG Duration 5 wks Five Impairment Difficulty of lifting laundry from floor to shoulder level [facility] Goal (LTG) Patient will learn good lifting mechanics to prevent further low back pain. LTG Duration 4 wks Four Impairment Palpable muscle tone Paint Prep Technician Goal (LTG) Pt muscle tone grossly to mild levels of tone LTG Duration 4 wks Three Impairment Thoracic Spine ROM Short Term Goal (STG) Thoracic spine to lacking 10 degrees from neutral at full extension STG Duration Met Paint Prep Technician Goal (LTG) Thoracic spine to neutral at full extension LTG Duration 5 wks Two Impairment Pain Paint Prep Technician Goal (LTG) Pt to report decreased pain to a max of 4/10 LTG Duration 4 wks - improving (5/10 on ) One Impairment Activity tolerance Paint Prep Technician Goal (LTG) Pt to tolerate gardening with no increased pain for three hours LTG Duration 4 wks - Improving Assessment Summary Assessment Pt tolerated treatment well today, had mild complaints of tenderness along paraspinals, but STM went well. Physical Therapy Plan Frequency and Duration Frequency of Treatment 1x/Week Duration of Treatment 3 months Plan of Care Start Date 12/18/18 Plan of Care End Date 03/18/19 Therapeutic Interventions Therapeutic Interventions Aquatic Therapy,Home Exercise Program,Joint Mobilizations, Manual Therapy,Neuromuscular Re-education,Self-Care/Home Management,Soft Tissue Mobilization,Therapeutic Exercises Modalities Cold Pack/Ice Massage,Electric Stimulation,Hot Packs Next Visit Focus/Plan Next Note Type Treatment Note Next Visit Plan Thoracic and Lumbar ROM, Shoulder strengthening, improved posture.
--- NOTE | 2019-01-29 14:28 | PT.OTN ---
Current Diagnoses Scoliosis, unspecified (01/29/19) Spondylosis without myelopathy or radiculopathy, cervical region (01/29/19) Pain in thoracic spine (01/29/19) Physical Therapy Treatment Note PT-OP-A Visit Information Start: 08/06/17 17:30 Freq: Status: Active Protocol: Document 01/29/19 13:45 DCW (Rec: 01/29/19 14:28 DCW [id number]) Out-Patient Physical Therapy Visit Information Visit Information Visit Type Treatment Note Visit Start Time 13:45 Visit Stop Time 14:40 Total Visit Minutes 55 Visit Number 72 Number of WORLD LANGUAGE TEACHER Visits 0 Evaluation Information Evaluation Date 05/28/17 PT-OP-B Current Condition Start: 10/04/17 14:21 Freq: Status: Active Protocol: Document 12/10/17 13:45 DCW (Rec: 12/10/17 13:56 DCW [id number]) Current Condition History of Current Condition History of Current Condition Please see patient's chart in Therapy Source for complete history and initial evaluation Current Functional Impairments (Reported) Functional Limitations- Recreation/ Pt unable to tolerate yard- Hobbies work more than 60 minutes without significant increased pain in her shoulders. PT-OP-C Subjective Start: 08/06/17 17:30 Freq: Status: Active Protocol: Document 01/29/19 13:45 DCW (Rec: 01/29/19 14:28 DCW [id number]) OP-PT Subjective Patient Comments Patient Comments Pt notes she feels terrible today after not being here for the past three weeks. Notes her foot, back, and eye are all painful. 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 Pt also has had a new referral sent over to work on balance and gait. PT-OP-F Manual Assessment Start: 10/04/17 14:21 Freq: Status: Active Protocol: Document 12/18/18 13:45 DCW (Rec: 12/18/18 14:23 DCW [id number]) Manual Assessments Soft Tissue Assessment Soft Tissue Mobility Assessment Moderate tone in Bilateral thoracic and lumbar paraspinals, piriformis, iliopsoas, and quadratus lumborum. Mild tone in bilateral hamstrings and adductor vinod PT-OP-J Posture/Palpation/Skin Start: 10/04/17 14:21 Freq: Status: Active Protocol: Document 12/18/18 13:45 DCW (Rec: 12/18/18 14:23 DCW [id number]) Posture Evaluation Position Standing Head/C-Spine Posture Forward Head T-Spine Posture Flexible Scoliosis on (L), Increased Kyphosis L-Spine Posture Flexible Scoliosis on (R) Pelvis Posture (L) Iliac Crest Superior Hip Posture (L) Flexed,(R) Flexed Comments Posture Comments Pt's jorge with cues to stand as tall as possible: 5'1 /c 1 .25 heel PT-OP-K Range of Motion Start: 10/04/17 14:21 Freq: Status: Active Protocol: Document 12/18/18 13:45 DCW (Rec: 12/18/18 14:23 DCW [id number]) Lumbar Spine Range of Motion Lumbar Spine Active Degrees Testing Position Standing Comments Max extension, pt is forward flexed 3? at her thoracic spine Shoulder Goniometric Range of Motion Shoulder Left Active Shoulder ROM WFL No Testing Position Sitting Flexion 160 Abduction 153 External Rotation at 0 degrees Abduction 52 Right Active Shoulder ROM WFL No Testing Position Sitting Flexion 158 Abduction 125 External Rotation at 0 degrees Abduction 60 PT-OP-M Strength Start: 10/04/17 14:21 Freq: Status: Active Protocol: Document 12/18/18 13:45 DCW (Rec: 12/18/18 14:23 DCW [id number]) Shoulder Strength Shoulder Manual Muscle Testing Right Flexion 4 Good Abduction (C5) 4+ Good+ External Rotation 4+ Good+ Internal Rotation 5 Normal Left Flexion 4 Good Abduction (C5) 4+ Good+ External Rotation 4+ Good+ Internal Rotation 5 Normal PT-OP-Q Treatments Start: 08/06/17 17:30 Freq: Status: Active Protocol: Document 01/29/19 13:45 DCW (Rec: 01/29/19 14:28 DCW [id number]) Cardio Equipment Upper Body Ergometer (UBE) Duration (Minutes) 5 RPM 60 Seat Position 12 Height 3 Gym Equipment Therapeutic Ball Low Trunk Rotation Exercise Details Low trunk Rotation Ball Size/Color Blue - 45 cm Body Position Hooklying Therapeutic Exercises Supine Exercises 1 Supine Exercise Name Supine on Towel roll at T10-12 Side bilateral Comments increase thoracolumbar extension Manual Therapy Treatment Soft Tissue Mobilization 4 Body Location Piriformis Mobilization Type Strumming,Sustained Pressure, Trigger Point Release Intensity/Depth Deep Body Position Sidelying 3 Body Location Quadratus Lumborum Mobilization Type Myofascial Release,Strumming, Sustained Pressure Intensity/Depth Moderate Body Position Sidelying 2 Body Location Glute Med Mobilization Type Strumming,Sustained Pressure Intensity/Depth Moderate Body Position Sidelying 1 Body Location Lumbar Erector Spinae Mobilization Type Myofascial Release,Sustained Pressure Intensity/Depth Moderate Body Position Sidelying Joint Mobilizations 1 Joint Thoracic Spine Direction P->A Grade III Body Position Sidelying Manual Traction Lumbar Details Hip/Iliac crest depression Body Position Sidelying PT-OP-R Modalities Start: 08/06/17 17:30 Freq: Status: Active Protocol: Document 01/29/19 13:45 DCW (Rec: 01/29/19 14:28 DCW [id number]) Electric Stimulation Electric Stimulation Interferential Current (IFC) Body Location Lumbar Spine Duration (Minutes) 15 Patient Position Sitting Combined With Heat/Cold Hot Pack PT-OP-T Assessment and Plan Start: 08/06/17 17:30 Freq: Status: Active Protocol: Document 01/29/19 13:45 DCW (Rec: 01/29/19 14:28 DCW [id number]) Physical Therapy Assessment Impairments Impairments Functional Mobility,Pain, Posture,ROM,Soft Tissue Mobility,Strength,Tone Goals Six Impairment Difficulty of getting in the car Detention Goal (LTG) Patient will get in to the car with proper mechanics without difficulty anifficultynd low back pain LTG Duration 5 wks Five Impairment Difficulty of lifting laundry from floor to shoulder level Detention Goal (LTG) Patient will learn good lifting mechanics to prevent further low back pain. LTG Duration 4 wks Four Impairment Palpable muscle tone Information Support Project Manager Goal (LTG) Pt muscle tone grossly to mild levels of tone LTG Duration 4 wks Three Impairment Thoracic Spine ROM Short Term Goal (STG) Thoracic spine to lacking 10 degrees from neutral at full extension STG Duration Met Detention Goal (LTG) Thoracic spine to neutral at full extension LTG Duration 5 wks Two Impairment Pain Information Support Project Manager Goal (LTG) Pt to report decreased pain to a max of 4/10 LTG Duration 4 wks - improving (5/10 on 9/ 18/19) One Impairment Activity tolerance Information Support Project Manager Goal (LTG) Pt to tolerate gardening with no increased pain for three hours LTG Duration 4 wks - Improving Assessment Summary Assessment Pt had increased stiffness, tone, and pain through her low back today after an extended break from PT, too sore to address new referral for balance/gait today, will perform re-evaluation next visit. Physical Therapy Plan Frequency and Duration Frequency of Treatment 1x/Week Duration of Treatment 3 months Plan of Care Start Date 12/18/18 Plan of Care End Date 03/18/19 Therapeutic Interventions Therapeutic Interventions Aquatic Therapy,Home Exercise Program,Joint Mobilizations, Manual Therapy,Neuromuscular Re-education,Self-Care/Home Management,Soft Tissue Mobilization,Therapeutic Exercises Modalities Cold Pack/Ice Massage,Electric Stimulation,Hot Packs Next Visit Focus/Plan Next Note Type Re-Evaluation Next Visit Plan Addition of balance/gait referral, assessment and objective measures.
--- NOTE | 2019-02-20 14:53 | PT.OTRE ---
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) Pain in thoracic spine (02/20/19) Visit Care Team Role Provider Type Jia Sheridan MD Attending Provider Physician Family Provider Primary Care Provider Specialty: Family Practice Address: [address] [place] [address], [id number] Email: [email or web address] Physical Therapy Re-Evaluation PT-OP-A Visit Information Start: 08/06/17 17:30 Freq: Status: Active Protocol: Document 02/20/19 13:45 DCW (Rec: 02/20/19 14:53 DCW [id number]) Out-Patient Physical Therapy Visit Information Visit Information Visit Type Re-Evaluation Visit Start Time 13:45 Visit Stop Time 14:40 Total Visit Minutes 55 Visit Number 73 Number of ULTRASONOGRAPHER Visits 0 Evaluation Information Evaluation Date 05/28/17 PT-OP-B Current Condition Start: 10/04/17 14:21 Freq: Status: Active Protocol: Document 02/20/19 13:45 DCW (Rec: 02/20/19 14:36 DCW [id number]) Current Condition History of Current Condition History of Current Condition Please see patient's chart in Therapy Source for complete history and initial evaluation ADDENDEM 02/20/19: Pt has a new referral to work on balance and gait. Pt notes she doesn't have any recent falls , but that's because I'm good at grabbing things before I go down. Pt has been using a SPC for assistance, and has recently gotten a FWW, although she has yet to use it . Pt admits that she has not been picking my feet up very well. PT-OP-C Subjective Start: 08/06/17 17:30 Freq: Status: Active Protocol: Document 02/20/19 13:45 DCW (Rec: 02/20/19 14:53 DCW [id number]) OP-PT Subjective Patient Comments Patient Comments Pt reports back pain after another three week absence from therapy, but has a new referral for balance and gait, and would prefer to address that at this time. PT-OP-D Balance Start: 02/20/19 13:46 Freq: Status: Active Protocol: Document 02/20/19 13:45 DCW (Rec: 02/20/19 14:33 DCW [id number]) OP-PT Balance Assessment Sitting Balance Static Sitting Balance Ability Good Dynamic Sitting Balance Ability Good Standing Balance Static Standing Balance Ability Fair Dynamic Standing Balance Ability Fair Balance Tests Yanez Balance Test Yanez Balance Test Score 42/56 Yanez Impairment Rating 20 to 39% Impaired (Score 34- 44) Yanez Balance Assessment Evaluation Sitting to Standing Ability Independent w/out Hands Unsupported Stance Safely- 2 minutes Sitting Unsupported, Feet on Floor Safely- 2 minutes Standing to Sitting Ability Safely, Minimal Hand Use Transfer Ability Safely, Minimal Hand Use Unsupported Stance- Eyes Closed Supervision, 10 seconds Unsupported Stance- Eyes Open Supervision to maintain Reaching Forward Standing Safely, 5 inches Pick- Up Object From Floor Independent/Safe Look Behind Shoulder - Standing Shifts Weight Unilateral Turning 360 Degrees Supervision/Verbal Cues Unsupported Stance, Alternating Feet on 4 Steps w/Supervision Stair Unsupported Tandem Stance Small Step- 30 seconds Unilateral Leg Stance Lifts Leg/Unable to Hold Total Score Yanez Total Score (out of 56 points) 42 Yanez Impairment Rating 20 to 39% Impaired (Score 34- 44) Mensah Fall Scale Copyright Permission Rodrick BARROW, Rodrick RM, Crescencio SJ. Development of a scale to identify the fall- prone patient. Can J Aging 1989;8;366-7. Barby Mensah (2009). Preventing patient falls. (2nd ed). [place]: [place]. PT-OP-E Functional Tests Start: 02/20/19 13:46 Freq: Status: Active Protocol: Document 02/20/19 13:45 DCW (Rec: 02/20/19 14:33 DCW [id number]) Functional Tests 2 Minute Walk Test Distance 233 Device Used none Comments 1.94 ft/sec Dynamic Gait Index (DGI) Score 14/24 DGI Impairment Rating 40 to <60% Impaired (Score 10- 14) PT-OP-F Manual Assessment Start: 10/04/17 14:21 Freq: Status: Active Protocol: Document 12/18/18 13:45 DCW (Rec: 12/18/18 14:23 DCW [id number]) Manual Assessments Soft Tissue Assessment Soft Tissue Mobility Assessment Moderate tone in Bilateral thoracic and lumbar paraspinals, piriformis, iliopsoas, and quadratus lumborum. Mild tone in bilateral hamstrings and adductor vinod PT-OP-J Posture/Palpation/Skin Start: 10/04/17 14:21 Freq: Status: Active Protocol: Document 12/18/18 13:45 DCW (Rec: 12/18/18 14:23 DCW [id number]) Posture Evaluation Position Standing Head/C-Spine Posture Forward Head T-Spine Posture Flexible Scoliosis on (L), Increased Kyphosis L-Spine Posture Flexible Scoliosis on (R) Pelvis Posture (L) Iliac Crest Superior Hip Posture (L) Flexed,(R) Flexed Comments Posture Comments Pt's jorge with cues to stand as tall as possible: 5'1 /c 1 .25 heel PT-OP-K Range of Motion Start: 10/04/17 14:21 Freq: Status: Active Protocol: Document 12/18/18 13:45 DCW (Rec: 12/18/18 14:23 DCW [id number]) Lumbar Spine Range of Motion Lumbar Spine Active Degrees Testing Position Standing Comments Max extension, pt is forward flexed 3? at her thoracic spine Shoulder Goniometric Range of Motion Shoulder Measured in Degrees Left Active Shoulder ROM WFL No Testing Position Sitting Flexion 160 Abduction 153 External Rotation at 0 degrees Abduction 52 Right Active Shoulder ROM WFL No Testing Position Sitting Flexion 158 Abduction 125 External Rotation at 0 degrees Abduction 60 PT-OP-M Strength Start: 10/04/17 14:21 Freq: Status: Active Protocol: Document 12/18/18 13:45 DCW (Rec: 12/18/18 14:23 DCW [id number]) Shoulder Strength Shoulder Manual Muscle Testing Right Flexion 4 Good Abduction (C5) 4+ Good+ External Rotation 4+ Good+ Internal Rotation 5 Normal Left Flexion 4 Good Abduction (C5) 4+ Good+ External Rotation 4+ Good+ Internal Rotation 5 Normal PT-OP-Q Treatments Start: 08/06/17 17:30 Freq: Status: Active Protocol: Document 02/20/19 13:45 DCW (Rec: 02/20/19 14:53 DCW [id number]) Neuro Re-Education Treatment Other Activities Testing Comments DGI, Yanez, 2 MWT PT-OP-R Modalities Start: 05/07/18 17:30 Freq: Status: Active Protocol: Document 02/20/19 13:45 DCW (Rec: 02/20/19 14:53 DCW [id number]) Electric Stimulation Electric Stimulation Interferential Current (IFC) Body Location Lumbar Spine Duration (Minutes) 15 Patient Position Sitting Combined With Heat/Cold Hot Pack PT-OP-T Assessment and Plan Start: 08/06/17 17:30 Freq: Status: Active Protocol: Document 02/20/19 13:45 DCW (Rec: 02/20/19 14:53 DCW [id number]) Physical Therapy Assessment Impairments Impairments Activity Tolerance,Balance, Functional Activities, Functional Mobility,Gait,Pain, Posture,ROM,Soft Tissue Mobility,Strength,Tone Goals Seven Impairment Pt displays increased falls risk Short Term Goal (STG) Pt to score a 47/56 on the Yanez Balance Scale to demonstrate a decreased falls risk STG Duration 03/27/19 [employer] Traffic Controller Goal (LTG) Pt to score a 18/24 on the DGI LTG Duration 05/08/19 Six Impairment Difficulty of getting in the car Road Traffic Controller Goal (LTG) Patient will get in to the car with proper mechanics without difficulty anifficultynd low back pain LTG Duration 5 wks Five Impairment Difficulty of lifting laundry from floor to shoulder level Road Traffic Controller Goal (LTG) Patient will learn good lifting mechanics to prevent further low back pain. LTG Duration 4 wks Four Impairment Palpable muscle tone Road Traffic Controller Goal (LTG) Pt muscle tone grossly to mild levels of tone LTG Duration 4 wks Three Impairment Thoracic Spine ROM Short Term Goal (STG) Thoracic spine to lacking 10 degrees from neutral at full extension STG Duration Met Road Traffic Controller Goal (LTG) Thoracic spine to neutral at full extension LTG Duration 5 wks Two Impairment Pain Road Traffic Controller Goal (LTG) Pt to report decreased pain to a max of 4/10 LTG Duration 4 wks - improving (5/10 on ) One Impairment Activity tolerance Longterm Goal (LTG) Pt to tolerate gardening with no increased pain for three hours LTG Duration 4 wks - Improving Assessment Summary Assessment Pt demonstrates a decline in activity tolerance and fair static and dynamic balance. Pt 's score of 42/56 on the Yanez and 14/24 on the DGI both indicate an increased falls risk, and pt's inability to complete the 6 MWT, instead stopping after 2 minutes for the 2 MWT distance of 233', demonstrates decreased activity tolerance. Pt should benefit from skilled therapy focusing on improving balance and activity tolerance, as well as continued therapy for her poor posture, thoracic spine and shoulder pain. Physical Therapy Plan Frequency and Duration Frequency of Treatment 1x/Week Duration of Treatment 3 months Plan of Care Start Date 02/20/19 Plan of Care End Date 05/21/19 Therapeutic Interventions Therapeutic Interventions Aquatic Therapy,Home Exercise Program,Joint Mobilizations, Manual Therapy,Neuromuscular Re-education,Self-Care/Home Management,Soft Tissue Mobilization,Therapeutic Exercises Modalities Cold Pack/Ice Massage,Electric Stimulation,Hot Packs Next Visit Focus/Plan Next Note Type Treatment Note Next Visit Plan Addition of balance/gait rehabilitation
--- NOTE | 2019-02-26 16:44 | PT.OTN ---
Current Diagnoses Scoliosis, unspecified (02/26/19) Spondylosis without myelopathy or radiculopathy, cervical region (02/26/19) Pain in thoracic spine (02/26/19) Physical Therapy Treatment Note PT-OP-A Visit Information Start: 08/06/17 17:30 Freq: Status: Active Protocol: Document 02/26/19 16:00 DCW (Rec: 02/26/19 16:44 DCW [id number]) Out-Patient Physical Therapy Visit Information Visit Information Visit Type Treatment Note Visit Start Time 16:00 Visit Stop Time 16:55 Total Visit Minutes 55 Visit Number 74 Number of BONE PROCESS OPERATOR Visits 0 Evaluation Information Evaluation Date 05/28/17 PT-OP-B Current Condition Start: 10/04/17 14:21 Freq: Status: Active Protocol: Document 02/20/19 13:45 DCW (Rec: 02/20/19 14:36 DCW [id number]) Current Condition History of Current Condition History of Current Condition Please see patient's chart in Therapy Source for complete history and initial evaluation ADDENDEM 02/20/19: Pt has a new referral to work on balance and gait. Pt notes she doesn't have any recent falls , but that's because I'm good at grabbing things before I go down. Pt has been using a SPC for assistance, and has recently gotten a FWW, although she has yet to use it . Pt admits that she has not been picking my feet up very well. PT-OP-C Subjective Start: 08/06/17 17:30 Freq: Status: Active Protocol: Document 02/26/19 16:00 DCW (Rec: 02/26/19 16:44 DCW [id number]) OP-PT Subjective Patient Comments Patient Comments Pt ready to work on her balance, but is fearful that her R ankle arthritis may limit some of the balance exercises. PT-OP-D Balance Start: 02/20/19 13:46 Freq: Status: Active Protocol: Document 02/20/19 13:45 DCW (Rec: 02/20/19 14:33 DCW [id number]) OP-PT Balance Assessment Sitting Balance Static Sitting Balance Ability Good Dynamic Sitting Balance Ability Good Standing Balance Static Standing Balance Ability Fair Dynamic Standing Balance Ability Fair Balance Tests Yanez Balance Test Yanez Balance Test Score 42/56 Yanez Impairment Rating 20 to 39% Impaired (Score 34- 44) Yanez Balance Assessment Evaluation Sitting to Standing Ability Independent w/out Hands Unsupported Stance Safely- 2 minutes Sitting Unsupported, Feet on Floor Safely- 2 minutes Standing to Sitting Ability Safely, Minimal Hand Use Transfer Ability Safely, Minimal Hand Use Unsupported Stance- Eyes Closed Supervision, 10 seconds Unsupported Stance- Eyes Open Supervision to maintain Reaching Forward Standing Safely, 5 inches Pick- Up Object From Floor Independent/Safe Look Behind Shoulder - Standing Shifts Weight Unilateral Turning 360 Degrees Supervision/Verbal Cues Unsupported Stance, Alternating Feet on 4 Steps w/Supervision Stair Unsupported Tandem Stance Small Step- 30 seconds Unilateral Leg Stance Lifts Leg/Unable to Hold Total Score Yanez Total Score (out of 56 points) 42 Yanez Impairment Rating 20 to 39% Impaired (Score 34- 44) Mensah Fall Scale Copyright Permission PT-OP-E Functional Tests Start: 02/20/19 13:46 Freq: Status: Active Protocol: Document 02/20/19 13:45 DCW (Rec: 02/20/19 14:33 DCW [id number]) Functional Tests 2 Minute Walk Test Distance 233 Device Used none Comments 1.94 ft/sec Dynamic Gait Index (DGI) Score 14/24 DGI Impairment Rating 40 to <60% Impaired (Score 10- 14) PT-OP-F Manual Assessment Start: 10/04/17 14:21 Freq: Status: Active Protocol: Document 12/18/18 13:45 DCW (Rec: 12/18/18 14:23 DCW [id number]) Manual Assessments Soft Tissue Assessment Soft Tissue Mobility Assessment Moderate tone in Bilateral thoracic and lumbar paraspinals, piriformis, iliopsoas, and quadratus lumborum. Mild tone in bilateral hamstrings and adductor vinod PT-OP-J Posture/Palpation/Skin Start: 10/04/17 14:21 Freq: Status: Active Protocol: Document 12/18/18 13:45 DCW (Rec: 12/18/18 14:23 DCW [id number]) Posture Evaluation Position Standing Head/C-Spine Posture Forward Head T-Spine Posture Flexible Scoliosis on (L), Increased Kyphosis L-Spine Posture Flexible Scoliosis on (R) Pelvis Posture (L) Iliac Crest Superior Hip Posture (L) Flexed,(R) Flexed Comments Posture Comments Pt's jorge with cues to stand as tall as possible: 5'1 /c 1 .25 heel PT-OP-K Range of Motion Start: 10/04/17 14:21 Freq: Status: Active Protocol: Document 12/18/18 13:45 DCW (Rec: 12/18/18 14:23 DCW [id number]) Lumbar Spine Range of Motion Lumbar Spine Active Degrees Testing Position Standing Comments Max extension, pt is forward flexed 3? at her thoracic spine Shoulder Goniometric Range of Motion Shoulder Left Active Shoulder ROM WFL No Testing Position Sitting Flexion 160 Abduction 153 External Rotation at 0 degrees Abduction 52 Right Active Shoulder ROM WFL No Testing Position Sitting Flexion 158 Abduction 125 External Rotation at 0 degrees Abduction 60 PT-OP-M Strength Start: 10/04/17 14:21 Freq: Status: Active Protocol: Document 12/18/18 13:45 DCW (Rec: 12/18/18 14:23 DCW [id number]) Shoulder Strength Shoulder Manual Muscle Testing Right Flexion 4 Good Abduction (C5) 4+ Good+ External Rotation 4+ Good+ Internal Rotation 5 Normal Left Flexion 4 Good Abduction (C5) 4+ Good+ External Rotation 4+ Good+ Internal Rotation 5 Normal PT-OP-Q Treatments Start: 08/06/17 17:30 Freq: Status: Active Protocol: Document 02/26/19 16:00 DCW (Rec: 02/26/19 16:44 DCW [id number]) Gym Equipment Shuttle Balance Blue Details Eyes open/closed Therapeutic Exercises Supine Exercises 1 Supine Exercise Name Supine on Towel roll at T10-12 Side bilateral Comments increase thoracolumbar extension Manual Therapy Treatment Soft Tissue Mobilization 4 Body Location Piriformis Mobilization Type Strumming,Sustained Pressure, Trigger Point Release Intensity/Depth Deep Body Position Sidelying 3 Body Location Quadratus Lumborum Mobilization Type Myofascial Release,Strumming, Sustained Pressure Intensity/Depth Moderate Body Position Sidelying 2 Body Location Glute Med Mobilization Type Strumming,Sustained Pressure Intensity/Depth Moderate Body Position Sidelying 1 Body Location Lumbar Erector Spinae Mobilization Type Myofascial Release,Sustained Pressure Intensity/Depth Moderate Body Position Sidelying Joint Mobilizations 1 Joint Thoracic Spine Direction P->A Grade III Body Position Sidelying Manual Traction Lumbar Details Hip/Iliac crest depression Body Position Sidelying Neuro Re-Education Treatment Balance Activities BOSU Details DL stance on BOSU Foam Stance Details Eyes open/closed Surface Pascual foam PT-OP-R Modalities Start: 08/06/17 17:30 Freq: Status: Active Protocol: Document 02/26/19 16:00 DCW (Rec: 02/26/19 16:44 DCW [id number]) Electric Stimulation Electric Stimulation Interferential Current (IFC) Body Location Lumbar Spine Duration (Minutes) 15 Patient Position Sitting Combined With Heat/Cold Hot Pack PT-OP-T Assessment and Plan Start: 08/06/17 17:30 Freq: Status: Active Protocol: Document 02/26/19 16:00 DCW (Rec: 02/26/19 16:44 DCW [id number]) Physical Therapy Assessment Impairments Impairments Activity Tolerance,Balance, Functional Activities, Functional Mobility,Gait,Pain, Posture,ROM,Soft Tissue Mobility,Strength,Tone Goals Seven Impairment Pt displays increased falls risk Short Term Goal (STG) Pt to score a 47/56 on the Yanez Balance Scale to demonstrate a decreased falls risk STG Duration 03/27/19 [facility] Goal (LTG) Pt to score a 18/24 on the DGI LTG Duration 05/08/19 Six Impairment Difficulty of getting in the car [facility] Goal (LTG) Patient will get in to the car with proper mechanics without difficulty anifficultynd low back pain LTG Duration 5 wks Five Impairment Difficulty of lifting laundry from floor to shoulder level [facility] Goal (LTG) Patient will learn good lifting mechanics to prevent further low back pain. LTG Duration 4 wks Four Impairment Palpable muscle tone Diesel Engine Operator Goal (LTG) Pt muscle tone grossly to mild levels of tone LTG Duration 4 wks Three Impairment Thoracic Spine ROM Short Term Goal (STG) Thoracic spine to lacking 10 degrees from neutral at full extension STG Duration Met [facility] Goal (LTG) Thoracic spine to neutral at full extension LTG Duration 5 wks Two Impairment Pain [facility] Goal (LTG) Pt to report decreased pain to a max of 4/10 LTG Duration 4 wks - improving (5/10 on ) One Impairment Activity tolerance Diesel Engine Operator Goal (LTG) Pt to tolerate gardening with no increased pain for three hours LTG Duration 4 wks - Improving Assessment Summary Assessment Pt tolerated addition of balance activities well, looking to shift focus on more balance and stability exercises following re- evaluation last week. Pt should still tolerate posture training and manual therapy for her low/mid back. Physical Therapy Plan Frequency and Duration Frequency of Treatment 1x/Week Duration of Treatment 3 months Plan of Care Start Date 02/20/19 Plan of Care End Date 05/21/19 Therapeutic Interventions Therapeutic Interventions Aquatic Therapy,Home Exercise Program,Joint Mobilizations, Manual Therapy,Neuromuscular Re-education,Self-Care/Home Management,Soft Tissue Mobilization,Therapeutic Exercises Modalities Cold Pack/Ice Massage,Electric Stimulation,Hot Packs Next Visit Focus/Plan Next Note Type Treatment Note Next Visit Plan Addition of balance/gait rehabilitation
--- NOTE | 2019-03-06 16:48 | PT.OTN ---
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) Pain in thoracic spine (03/06/19) Physical Therapy Treatment Note PT-OP-A Visit Information Start: 08/06/17 17:30 Freq: Status: Active Protocol: Document 03/06/19 16:00 DCW (Rec: 03/06/19 16:46 DCW [id number]) Out-Patient Physical Therapy Visit Information Visit Information Visit Type Treatment Note Visit Start Time 16:00 Visit Stop Time 16:55 Total Visit Minutes 55 Visit Number 75 Number of GUEST RELATIONS EXECUTIVE Visits 0 Evaluation Information Evaluation Date 05/28/17 PT-OP-B Current Condition Start: 10/04/17 14:21 Freq: Status: Active Protocol: Document 02/20/19 13:45 DCW (Rec: 02/20/19 14:36 DCW [id number]) Current Condition History of Current Condition History of Current Condition Please see patient's chart in Therapy Source for complete history and initial evaluation ADDENDEM 02/20/19: Pt has a new referral to work on balance and gait. Pt notes she doesn't have any recent falls , but that's because I'm good at grabbing things before I go down. Pt has been using a SPC for assistance, and has recently gotten a FWW, although she has yet to use it . Pt admits that she has not been picking my feet up very well. PT-OP-C Subjective Start: 08/06/17 17:30 Freq: Status: Active Protocol: Document 03/06/19 16:00 DCW (Rec: 03/06/19 16:48 DCW [id number]) OP-PT Subjective Patient Comments Patient Comments Pt feeling pretty good today, brought in her new 4WW to get PT's opinion. PT-OP-D Balance Start: 02/20/19 13:46 Freq: Status: Active Protocol: Document 02/20/19 13:45 DCW (Rec: 02/20/19 14:33 DCW [id number]) OP-PT Balance Assessment Sitting Balance Static Sitting Balance Ability Good Dynamic Sitting Balance Ability Good Standing Balance Static Standing Balance Ability Fair Dynamic Standing Balance Ability Fair Balance Tests Yanez Balance Test Yanez Balance Test Score 42/56 Yanez Impairment Rating 20 to 39% Impaired (Score 34- 44) Yanez Balance Assessment Evaluation Sitting to Standing Ability Independent w/out Hands Unsupported Stance Safely- 2 minutes Sitting Unsupported, Feet on Floor Safely- 2 minutes Standing to Sitting Ability Safely, Minimal Hand Use Transfer Ability Safely, Minimal Hand Use Unsupported Stance- Eyes Closed Supervision, 10 seconds Unsupported Stance- Eyes Open Supervision to maintain Reaching Forward Standing Safely, 5 inches Pick- Up Object From Floor Independent/Safe Look Behind Shoulder - Standing Shifts Weight Unilateral Turning 360 Degrees Supervision/Verbal Cues Unsupported Stance, Alternating Feet on 4 Steps w/Supervision Stair Unsupported Tandem Stance Small Step- 30 seconds Unilateral Leg Stance Lifts Leg/Unable to Hold Total Score Yanez Total Score (out of 56 points) 42 Yanez Impairment Rating 20 to 39% Impaired (Score 34- 44) Mensah Fall Scale Copyright Permission PT-OP-E Functional Tests Start: 02/20/19 13:46 Freq: Status: Active Protocol: Document 02/20/19 13:45 DCW (Rec: 02/20/19 14:33 DCW [id number]) Functional Tests 2 Minute Walk Test Distance 233 Device Used none Comments 1.94 ft/sec Dynamic Gait Index (DGI) Score 1424 DGI Impairment Rating 40 to <60% Impaired (Score 10- 14) PT-OP-F Manual Assessment Start: 10/04/17 14:21 Freq: Status: Active Protocol: Document 12/18/18 13:45 DCW (Rec: 12/18/18 14:23 DCW [id number]) Manual Assessments Soft Tissue Assessment Soft Tissue Mobility Assessment Moderate tone in Bilateral thoracic and lumbar paraspinals, piriformis, iliopsoas, and quadratus lumborum. Mild tone in bilateral hamstrings and adductor vinod PT-OP-J Posture/Palpation/Skin Start: 10/04/17 14:21 Freq: Status: Active Protocol: Document 12/18/18 13:45 DCW (Rec: 12/18/18 14:23 DCW [id number]) Posture Evaluation Position Standing Head/C-Spine Posture Forward Head T-Spine Posture Flexible Scoliosis on (L), Increased Kyphosis L-Spine Posture Flexible Scoliosis on (R) Pelvis Posture (L) Iliac Crest Superior Hip Posture (L) Flexed,(R) Flexed Comments Posture Comments Pt's jorge with cues to stand as tall as possible: 5'1 /c 1 .25 heel PT-OP-K Range of Motion Start: 10/04/17 14:21 Freq: Status: Active Protocol: Document 12/18/18 13:45 DCW (Rec: 12/18/18 14:23 DCW [id number]) Lumbar Spine Range of Motion Lumbar Spine Active Degrees Testing Position Standing Comments Max extension, pt is forward flexed 3? at her thoracic spine Shoulder Goniometric Range of Motion Shoulder Left Active Shoulder ROM WFL No Testing Position Sitting Flexion 160 Abduction 153 External Rotation at 0 degrees Abduction 52 Right Active Shoulder ROM WFL No Testing Position Sitting Flexion 158 Abduction 125 External Rotation at 0 degrees Abduction 60 PT-OP-M Strength Start: 10/04/17 14:21 Freq: Status: Active Protocol: Document 12/18/18 13:45 DCW (Rec: 12/18/18 14:23 DCW [id number]) Shoulder Strength Shoulder Manual Muscle Testing Right Flexion 4 Good Abduction (C5) 4+ Good+ External Rotation 4+ Good+ Internal Rotation 5 Normal Left Flexion 4 Good Abduction (C5) 4+ Good+ External Rotation 4+ Good+ Internal Rotation 5 Normal PT-OP-Q Treatments Start: 08/06/17 17:30 Freq: Status: Active Protocol: Document 03/06/19 16:00 DCW (Rec: 03/06/19 16:46 DCW [id number]) Manual Therapy Treatment Soft Tissue Mobilization 4 Body Location Piriformis Mobilization Type Strumming,Sustained Pressure, Trigger Point Release Intensity/Depth Deep Body Position Sidelying 3 Body Location Quadratus Lumborum Mobilization Type Myofascial Release,Strumming, Sustained Pressure Intensity/Depth Moderate Body Position Sidelying 2 Body Location Glute Med Mobilization Type Strumming,Sustained Pressure Intensity/Depth Moderate Body Position Sidelying 1 Body Location Lumbar Erector Spinae Mobilization Type Myofascial Release,Sustained Pressure Intensity/Depth Moderate Body Position Sidelying Joint Mobilizations 1 Joint Thoracic Spine Direction P->A Grade III Body Position Sidelying Manual Traction Lumbar Details Hip/Iliac crest depression Body Position Sidelying Neuro Re-Education Treatment Balance Activities Tandem Walking Details Tandem Walking Tandem Stance Details Tandem Stance BOSU Details DL stance on BOSU Foam Stance Details Eyes open/closed Surface Pascual foam PT-OP-R Modalities Start: 08/06/17 17:30 Freq: Status: Active Protocol: Document 03/06/19 16:00 DCW (Rec: 03/06/19 16:46 DCW [id number]) Electric Stimulation Electric Stimulation Interferential Current (IFC) Body Location Lumbar Spine Duration (Minutes) 15 Patient Position Sitting Combined With Heat/Cold Hot Pack PT-OP-T Assessment and Plan Start: 08/06/17 17:30 Freq: Status: Active Protocol: Document 03/06/19 16:00 DCW (Rec: 03/06/19 16:46 DCW [id number]) Physical Therapy Assessment Impairments Impairments Activity Tolerance,Balance, Functional Activities, Functional Mobility,Gait,Pain, Posture,ROM,Soft Tissue Mobility,Strength,Tone Goals Seven Impairment Pt displays increased falls risk Short Term Goal (STG) Pt to score a 47/56 on the Yanez Balance Scale to demonstrate a decreased falls risk STG Duration 03/27/19 Cargo Broker Goal (LTG) Pt to score a 18/24 on the DGI LTG Duration 05/08/19 Six Impairment Difficulty of getting in the car Cargo Broker Goal (LTG) Patient will get in to the car with proper mechanics without difficulty anifficultynd low back pain LTG Duration 5 wks Five Impairment Difficulty of lifting laundry from floor to shoulder level Assisted Goal (LTG) Patient will learn good lifting mechanics to prevent further low back pain. LTG Duration 4 wks Four Impairment Palpable muscle tone Assisted Goal (LTG) Pt muscle tone grossly to mild levels of tone LTG Duration 4 wks Three Impairment Thoracic Spine ROM Short Term Goal (STG) Thoracic spine to lacking 10 degrees from neutral at full extension STG Duration Met Cargo Broker Goal (LTG) Thoracic spine to neutral at full extension LTG Duration 5 wks Two Impairment Pain Cargo Broker Goal (LTG) Pt to report decreased pain to a max of 4/10 LTG Duration 4 wks - improving (5/10 on ) One Impairment Activity tolerance Assisted Goal (LTG) Pt to tolerate gardening with no increased pain for three hours LTG Duration 4 wks - Improving Assessment Summary Assessment Pt tolerated treatment well. Working on improving posture while challenging balance. Physical Therapy Plan Frequency and Duration Frequency of Treatment 1x/Week Duration of Treatment 3 months Plan of Care Start Date 02/20/19 Plan of Care End Date 05/21/19 Therapeutic Interventions Therapeutic Interventions Aquatic Therapy,Home Exercise Program,Joint Mobilizations, Manual Therapy,Neuromuscular Re-education,Self-Care/Home Management,Soft Tissue Mobilization,Therapeutic Exercises Modalities Cold Pack/Ice Massage,Electric Stimulation,Hot Packs Next Visit Focus/Plan Next Note Type Treatment Note Next Visit Plan Addition of balance/gait rehabilitation
--- NOTE | 2019-03-12 14:30 | PT.OTN ---
Current Diagnoses Scoliosis, unspecified (03/12/19) Spondylosis without myelopathy or radiculopathy, cervical region (03/12/19) Pain in thoracic spine (03/12/19) Physical Therapy Treatment Note PT-OP-A Visit Information Start: 08/06/17 17:30 Freq: Status: Active Protocol: Document 03/12/19 13:45 DCW (Rec: 03/12/19 14:30 DCW [id number]) Out-Patient Physical Therapy Visit Information Visit Information Visit Type Treatment Note Visit Start Time 13:45 Visit Stop Time 14:40 Total Visit Minutes 55 Visit Number 76 Number of WIND SITE MANAGER Visits 0 Evaluation Information Evaluation Date 05/28/17 PT-OP-B Current Condition Start: 10/04/17 14:21 Freq: Status: Active Protocol: Document 02/20/19 13:45 DCW (Rec: 02/20/19 14:36 DCW [id number]) Current Condition History of Current Condition History of Current Condition Please see patient's chart in Therapy Source for complete history and initial evaluation ADDENDEM 02/20/19: Pt has a new referral to work on balance and gait. Pt notes she doesn't have any recent falls , but that's because I'm good at grabbing things before I go down. Pt has been using a SPC for assistance, and has recently gotten a FWW, although she has yet to use it . Pt admits that she has not been picking my feet up very well. PT-OP-C Subjective Start: 08/06/17 17:30 Freq: Status: Active Protocol: Document 03/12/19 13:45 DCW (Rec: 03/12/19 14:30 DCW [id number]) OP-PT Subjective Patient Comments Patient Comments I'm feeling good today. PT-OP-D Balance Start: 02/20/19 13:46 Freq: Status: Active Protocol: Document 02/20/19 13:45 DCW (Rec: 02/20/19 14:33 DCW [id number]) OP-PT Balance Assessment Sitting Balance Static Sitting Balance Ability Good Dynamic Sitting Balance Ability Good Standing Balance Static Standing Balance Ability Fair Dynamic Standing Balance Ability Fair Balance Tests Yanez Balance Test Yanez Balance Test Score 42/56 Yanez Impairment Rating 20 to 39% Impaired (Score 34- 44) Yanez Balance Assessment Evaluation Sitting to Standing Ability Independent w/out Hands Unsupported Stance Safely- 2 minutes Sitting Unsupported, Feet on Floor Safely- 2 minutes Standing to Sitting Ability Safely, Minimal Hand Use Transfer Ability Safely, Minimal Hand Use Unsupported Stance- Eyes Closed Supervision, 10 seconds Unsupported Stance- Eyes Open Supervision to maintain Reaching Forward Standing Safely, 5 inches Pick- Up Object From Floor Independent/Safe Look Behind Shoulder - Standing Shifts Weight Unilateral Turning 360 Degrees Supervision/Verbal Cues Unsupported Stance, Alternating Feet on 4 Steps w/Supervision Stair Unsupported Tandem Stance Small Step- 30 seconds Unilateral Leg Stance Lifts Leg/Unable to Hold Total Score Yanez Total Score (out of 56 points) 42 Yanez Impairment Rating 20 to 39% Impaired (Score 34- 44) Mensah Fall Scale Copyright Permission PT-OP-E Functional Tests Start: 02/20/19 13:46 Freq: Status: Active Protocol: Document 02/20/19 13:45 DCW (Rec: 02/20/19 14:33 DCW [id number]) Functional Tests 2 Minute Walk Test Distance 233 Device Used none Comments 1.94 ft/sec Dynamic Gait Index (DGI) Score 1424 DGI Impairment Rating 40 to <60% Impaired (Score 10- 14) PT-OP-F Manual Assessment Start: 10/04/17 14:21 Freq: Status: Active Protocol: Document 12/18/18 13:45 DCW (Rec: 12/18/18 14:23 DCW [id number]) Manual Assessments Soft Tissue Assessment Soft Tissue Mobility Assessment Moderate tone in Bilateral thoracic and lumbar paraspinals, piriformis, iliopsoas, and quadratus lumborum. Mild tone in bilateral hamstrings and adductor vinod PT-OP-J Posture/Palpation/Skin Start: 10/04/17 14:21 Freq: Status: Active Protocol: Document 12/18/18 13:45 DCW (Rec: 12/18/18 14:23 DCW [id number]) Posture Evaluation Position Standing Head/C-Spine Posture Forward Head T-Spine Posture Flexible Scoliosis on (L), Increased Kyphosis L-Spine Posture Flexible Scoliosis on (R) Pelvis Posture (L) Iliac Crest Superior Hip Posture (L) Flexed,(R) Flexed Comments Posture Comments Pt's jorge with cues to stand as tall as possible: 5'1 /c 1 .25 heel PT-OP-K Range of Motion Start: 10/04/17 14:21 Freq: Status: Active Protocol: Document 12/18/18 13:45 DCW (Rec: 12/18/18 14:23 DCW [id number]) Lumbar Spine Range of Motion Lumbar Spine Active Degrees Testing Position Standing Comments Max extension, pt is forward flexed 3? at her thoracic spine Shoulder Goniometric Range of Motion Shoulder Left Active Shoulder ROM WFL No Testing Position Sitting Flexion 160 Abduction 153 External Rotation at 0 degrees Abduction 52 Right Active Shoulder ROM WFL No Testing Position Sitting Flexion 158 Abduction 125 External Rotation at 0 degrees Abduction 60 PT-OP-M Strength Start: 10/04/17 14:21 Freq: Status: Active Protocol: Document 12/18/18 13:45 DCW (Rec: 12/18/18 14:23 DCW [id number]) Shoulder Strength Shoulder Manual Muscle Testing Right Flexion 4 Good Abduction (C5) 4+ Good+ External Rotation 4+ Good+ Internal Rotation 5 Normal Left Flexion 4 Good Abduction (C5) 4+ Good+ External Rotation 4+ Good+ Internal Rotation 5 Normal PT-OP-Q Treatments Start: 08/06/17 17:30 Freq: Status: Active Protocol: Document 03/12/19 13:45 DCW (Rec: 03/12/19 14:30 DCW [id number]) Gym Equipment Shuttle Balance Blue Details Eyes open/closed, Staggered Stance Therapeutic Exercises Supine Exercises 1 Supine Exercise Name Supine on Towel roll at T10-12 Side bilateral Comments increase thoracolumbar extension Manual Therapy Treatment Soft Tissue Mobilization 4 Body Location Piriformis Mobilization Type Strumming,Sustained Pressure, Trigger Point Release Intensity/Depth Deep Body Position Sidelying 3 Body Location Quadratus Lumborum Mobilization Type Myofascial Release,Strumming, Sustained Pressure Intensity/Depth Moderate Body Position Sidelying 2 Body Location Glute Med Mobilization Type Strumming,Sustained Pressure Intensity/Depth Moderate Body Position Sidelying 1 Body Location Lumbar Erector Spinae Mobilization Type Myofascial Release,Sustained Pressure Intensity/Depth Moderate Body Position Sidelying Joint Mobilizations 1 Joint Thoracic Spine Direction P->A Grade III Body Position Sidelying Manual Traction Lumbar Details Hip/Iliac crest depression Body Position Sidelying Neuro Re-Education Treatment Balance Activities SLS Details SLS Surface Firm BOSU Details DL stance on BOSU Foam Stance Details Head turns Surface Blue Foam PT-OP-R Modalities Start: 08/06/17 17:30 Freq: Status: Active Protocol: Document 03/12/19 13:45 DCW (Rec: 03/12/19 14:30 DCW [id number]) Electric Stimulation Electric Stimulation Interferential Current (IFC) Body Location Lumbar Spine Duration (Minutes) 15 Patient Position Sitting Combined With Heat/Cold Hot Pack PT-OP-T Assessment and Plan Start: 08/06/17 17:30 Freq: Status: Active Protocol: Document 03/12/19 13:45 DCW (Rec: 03/12/19 14:30 DCW [id number]) Physical Therapy Assessment Impairments Impairments Activity Tolerance,Balance, Functional Activities, Functional Mobility,Gait,Pain, Posture,ROM,Soft Tissue Mobility,Strength,Tone Goals Seven Impairment Pt displays increased falls risk Short Term Goal (STG) Pt to score a 47/56 on the Yanez Balance Scale to demonstrate a decreased falls risk STG Duration 03/27/19 Welder Production Line Combination Goal (LTG) Pt to score a 18/24 on the DGI LTG Duration 05/08/19 Six Impairment Difficulty of getting in the car Welder Production Line Combination Goal (LTG) Patient will get in to the car with proper mechanics without difficulty anifficultynd low back pain LTG Duration 5 wks Five Impairment Difficulty of lifting laundry from floor to shoulder level Welder Production Line Combination Goal (LTG) Patient will learn good lifting mechanics to prevent further low back pain. LTG Duration 4 wks Four Impairment Palpable muscle tone Usp Goal (LTG) Pt muscle tone grossly to mild levels of tone LTG Duration 4 wks Three Impairment Thoracic Spine ROM Short Term Goal (STG) Thoracic spine to lacking 10 degrees from neutral at full extension STG Duration Met Welder Production Line Combination Goal (LTG) Thoracic spine to neutral at full extension LTG Duration 5 wks Two Impairment Pain Usp Goal (LTG) Pt to report decreased pain to a max of 4/10 LTG Duration 4 wks - improving (5/10 on ) One Impairment Activity tolerance Welder Production Line Combination Goal (LTG) Pt to tolerate gardening with no increased pain for three hours LTG Duration 4 wks - Improving Assessment Summary Assessment Pt seems to be responding well to balance challenges, although posture does not seem to be changing much. Physical Therapy Plan Frequency and Duration Frequency of Treatment 1x/Week Duration of Treatment 3 months Plan of Care Start Date 02/20/19 Plan of Care End Date 05/21/19 Therapeutic Interventions Therapeutic Interventions Aquatic Therapy,Home Exercise Program,Joint Mobilizations, Manual Therapy,Neuromuscular Re-education,Self-Care/Home Management,Soft Tissue Mobilization,Therapeutic Exercises Modalities Cold Pack/Ice Massage,Electric Stimulation,Hot Packs Next Visit Focus/Plan Next Note Type Treatment Note Next Visit Plan Addition of balance/gait rehabilitation
--- NOTE | 2019-03-19 14:30 | PT.OTN ---
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) Pain in thoracic spine (03/19/19) Physical Therapy Treatment Note PT-OP-A Visit Information Start: 08/06/17 17:30 Freq: Status: Active Protocol: Document 03/19/19 13:45 DCW (Rec: 03/19/19 14:30 DCW [id number]) Out-Patient Physical Therapy Visit Information Visit Information Visit Type Treatment Note Visit Start Time 13:45 Visit Stop Time 14:40 Total Visit Minutes 55 Visit Number 77 Number of [employer] BUSINESS DEVELOPMENT Visits 0 Evaluation Information Evaluation Date 05/28/17 PT-OP-B Current Condition Start: 10/04/17 14:21 Freq: Status: Active Protocol: Document 02/20/19 13:45 DCW (Rec: 02/20/19 14:36 DCW [id number]) Current Condition History of Current Condition History of Current Condition Please see patient's chart in Therapy Source for complete history and initial evaluation ADDENDEM 02/20/19: Pt has a new referral to work on balance and gait. Pt notes she doesn't have any recent falls , but that's because I'm good at grabbing things before I go down. Pt has been using a SPC for assistance, and has recently gotten a FWW, although she has yet to use it . Pt admits that she has not been picking my feet up very well. PT-OP-C Subjective Start: 08/06/17 17:30 Freq: Status: Active Protocol: Document 03/19/19 13:45 DCW (Rec: 03/19/19 14:30 DCW [id number]) OP-PT Subjective Patient Comments Patient Comments Pt doing fairly well today, although admits she is in a bad mood. PT-OP-D Balance Start: 02/20/19 13:46 Freq: Status: Active Protocol: Document 02/20/19 13:45 DCW (Rec: 02/20/19 14:33 DCW [id number]) OP-PT Balance Assessment Sitting Balance Static Sitting Balance Ability Good Dynamic Sitting Balance Ability Good Standing Balance Static Standing Balance Ability Fair Dynamic Standing Balance Ability Fair Balance Tests Yanez Balance Test Yanez Balance Test Score 42/56 Yanez Impairment Rating 20 to 39% Impaired (Score 34- 44) Yanez Balance Assessment Evaluation Sitting to Standing Ability Independent w/out Hands Unsupported Stance Safely- 2 minutes Sitting Unsupported, Feet on Floor Safely- 2 minutes Standing to Sitting Ability Safely, Minimal Hand Use Transfer Ability Safely, Minimal Hand Use Unsupported Stance- Eyes Closed Supervision, 10 seconds Unsupported Stance- Eyes Open Supervision to maintain Reaching Forward Standing Safely, 5 inches Pick- Up Object From Floor Independent/Safe Look Behind Shoulder - Standing Shifts Weight Unilateral Turning 360 Degrees Supervision/Verbal Cues Unsupported Stance, Alternating Feet on 4 Steps w/Supervision Stair Unsupported Tandem Stance Small Step- 30 seconds Unilateral Leg Stance Lifts Leg/Unable to Hold Total Score Yanez Total Score (out of 56 points) 42 Yanez Impairment Rating 20 to 39% Impaired (Score 34- 44) Mensah Fall Scale Copyright Permission PT-OP-E Functional Tests Start: 02/20/19 13:46 Freq: Status: Active Protocol: Document 02/20/19 13:45 DCW (Rec: 02/20/19 14:33 DCW [id number]) Functional Tests 2 Minute Walk Test Distance 233 Device Used none Comments 1.94 ft/sec Dynamic Gait Index (DGI) Score 14/24 DGI Impairment Rating 40 to <60% Impaired (Score 10- 14) PT-OP-F Manual Assessment Start: 10/04/17 14:21 Freq: Status: Active Protocol: Document 12/18/18 13:45 DCW (Rec: 12/18/18 14:23 DCW [id number]) Manual Assessments Soft Tissue Assessment Soft Tissue Mobility Assessment Moderate tone in Bilateral thoracic and lumbar paraspinals, piriformis, iliopsoas, and quadratus lumborum. Mild tone in bilateral hamstrings and adductor vinod PT-OP-J Posture/Palpation/Skin Start: 10/04/17 14:21 Freq: Status: Active Protocol: Document 12/18/18 13:45 DCW (Rec: 12/18/18 14:23 DCW [id number]) Posture Evaluation Position Standing Head/C-Spine Posture Forward Head T-Spine Posture Flexible Scoliosis on (L), Increased Kyphosis L-Spine Posture Flexible Scoliosis on (R) Pelvis Posture (L) Iliac Crest Superior Hip Posture (L) Flexed,(R) Flexed Comments Posture Comments Pt's jorge with cues to stand as tall as possible: 5'1 /c 1 .25 heel PT-OP-K Range of Motion Start: 10/04/17 14:21 Freq: Status: Active Protocol: Document 12/18/18 13:45 DCW (Rec: 12/18/18 14:23 DCW [id number]) Lumbar Spine Range of Motion Lumbar Spine Active Degrees Testing Position Standing Comments Max extension, pt is forward flexed 3? at her thoracic spine Shoulder Goniometric Range of Motion Shoulder Left Active Shoulder ROM WFL No Testing Position Sitting Flexion 160 Abduction 153 External Rotation at 0 degrees Abduction 52 Right Active Shoulder ROM WFL No Testing Position Sitting Flexion 158 Abduction 125 External Rotation at 0 degrees Abduction 60 PT-OP-M Strength Start: 10/04/17 14:21 Freq: Status: Active Protocol: Document 12/18/18 13:45 DCW (Rec: 12/18/18 14:23 DCW [id number]) Shoulder Strength Shoulder Manual Muscle Testing Right Flexion 4 Good Abduction (C5) 4+ Good+ External Rotation 4+ Good+ Internal Rotation 5 Normal Left Flexion 4 Good Abduction (C5) 4+ Good+ External Rotation 4+ Good+ Internal Rotation 5 Normal PT-OP-Q Treatments Start: 08/06/17 17:30 Freq: Status: Active Protocol: Document 03/19/19 13:45 DCW (Rec: 03/19/19 14:30 DCW [id number]) Cardio Equipment Upper Body Ergometer (UBE) Duration (Minutes) 5 RPM 60 Seat Position 12 Height 3 Gym Equipment Shuttle Balance Blue Details Eyes open/closed, Staggered Stance Comments vs Perturbation Therapeutic Exercises Supine Exercises 1 Supine Exercise Name Supine on Towel roll at T10-12 Side bilateral Comments increase thoracolumbar extension Manual Therapy Treatment Soft Tissue Mobilization 4 Body Location Piriformis Mobilization Type Strumming,Sustained Pressure, Trigger Point Release Intensity/Depth Deep Body Position Sidelying 3 Body Location Quadratus Lumborum Mobilization Type Myofascial Release,Strumming, Sustained Pressure Intensity/Depth Moderate Body Position Sidelying 2 Body Location Glute Med Mobilization Type Strumming,Sustained Pressure Intensity/Depth Moderate Body Position Sidelying 1 Body Location Lumbar Erector Spinae Mobilization Type Myofascial Release,Sustained Pressure Intensity/Depth Moderate Body Position Sidelying Joint Mobilizations 1 Joint Thoracic Spine Direction P->A Grade III Body Position Sidelying Manual Traction Lumbar Details Hip/Iliac crest depression Body Position Sidelying Comments MWM Neuro Re-Education Treatment Balance Activities SLS Details SLS Surface Firm PT-OP-R Modalities Start: 08/06/17 17:30 Freq: Status: Active Protocol: Document 03/19/19 13:45 DCW (Rec: 03/19/19 14:30 DCW [id number]) Electric Stimulation Electric Stimulation Interferential Current (IFC) Body Location Lumbar Spine Duration (Minutes) 15 Patient Position Sitting Combined With Heat/Cold Hot Pack PT-OP-T Assessment and Plan Start: 08/06/17 17:30 Freq: Status: Active Protocol: Document 03/19/19 13:45 DCW (Rec: 03/19/19 14:30 DCW [id number]) Physical Therapy Assessment Impairments Impairments Activity Tolerance,Balance, Functional Activities, Functional Mobility,Gait,Pain, Posture,ROM,Soft Tissue Mobility,Strength,Tone Goals Seven Impairment Pt displays increased falls risk Short Term Goal (STG) Pt to score a 47/56 on the Yanez Balance Scale to demonstrate a decreased falls risk STG Duration 03/27/19 Regulator Pin Inserter Goal (LTG) Pt to score a 18/24 on the DGI LTG Duration 05/08/19 Six Impairment Difficulty of getting in the car Intermediate Goal (LTG) Patient will get in to the car with proper mechanics without difficulty anifficultynd low back pain LTG Duration 5 wks Five Impairment Difficulty of lifting laundry from floor to shoulder level Intermediate Goal (LTG) Patient will learn good lifting mechanics to prevent further low back pain. LTG Duration 4 wks Four Impairment Palpable muscle tone Regulator Pin Inserter Goal (LTG) Pt muscle tone grossly to mild levels of tone LTG Duration 4 wks Three Impairment Thoracic Spine ROM Short Term Goal (STG) Thoracic spine to lacking 10 degrees from neutral at full extension STG Duration Met Regulator Pin Inserter Goal (LTG) Thoracic spine to neutral at full extension LTG Duration 5 wks Two Impairment Pain Intermediate Goal (LTG) Pt to report decreased pain to a max of 4/10 LTG Duration 4 wks - improving (5/10 on ) One Impairment Activity tolerance Intermediate Goal (LTG) Pt to tolerate gardening with no increased pain for three hours LTG Duration 4 wks - Improving Assessment Summary Assessment Pt doing well, no current concerns regarding treatment plan. Physical Therapy Plan Frequency and Duration Frequency of Treatment 1x/Week Duration of Treatment 3 months Plan of Care Start Date 02/20/19 Plan of Care End Date 05/21/19 Therapeutic Interventions Therapeutic Interventions Aquatic Therapy,Home Exercise Program,Joint Mobilizations, Manual Therapy,Neuromuscular Re-education,Self-Care/Home Management,Soft Tissue Mobilization,Therapeutic Exercises Modalities Cold Pack/Ice Massage,Electric Stimulation,Hot Packs Next Visit Focus/Plan Next Note Type Treatment Note Next Visit Plan Addition of balance/gait rehabilitation
--- NOTE | 2019-03-28 14:28 | PT.OTN ---
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) Pain in thoracic spine (03/28/19) Physical Therapy Treatment Note PT-OP-A Visit Information Start: 08/06/17 17:30 Freq: Status: Active Protocol: Document 03/28/19 13:45 DCW (Rec: 03/28/19 14:27 DCW [id number]) Out-Patient Physical Therapy Visit Information Visit Information Visit Type Treatment Note Visit Start Time 13:45 Visit Stop Time 14:40 Total Visit Minutes 55 Visit Number 78 Number of PRINCIPAL HARDWARE ARCHITECT Visits 0 Evaluation Information Evaluation Date 05/28/17 PT-OP-B Current Condition Start: 10/04/17 14:21 Freq: Status: Active Protocol: Document 02/20/19 13:45 DCW (Rec: 02/20/19 14:36 DCW [id number]) Current Condition History of Current Condition History of Current Condition Please see patient's chart in Therapy Source for complete history and initial evaluation ADDENDEM 02/20/19: Pt has a new referral to work on balance and gait. Pt notes she doesn't have any recent falls , but that's because I'm good at grabbing things before I go down. Pt has been using a SPC for assistance, and has recently gotten a FWW, although she has yet to use it . Pt admits that she has not been picking my feet up very well. PT-OP-C Subjective Start: 08/06/17 17:30 Freq: Status: Active Protocol: Document 03/28/19 13:45 DCW (Rec: 03/28/19 14:27 DCW [id number]) OP-PT Subjective Patient Comments Patient Comments I'm okay physically, but I just feel like I'm a wreck emotionally. Notes that her fell earlier this week , and he is badly bruised and having a hard time moving around. PT-OP-D Balance Start: 02/20/19 13:46 Freq: Status: Active Protocol: Document 02/20/19 13:45 DCW (Rec: 02/20/19 14:33 DCW [id number]) OP-PT Balance Assessment Sitting Balance Static Sitting Balance Ability Good Dynamic Sitting Balance Ability Good Standing Balance Static Standing Balance Ability Fair Dynamic Standing Balance Ability Fair Balance Tests Yanez Balance Test Yanez Balance Test Score 42/56 Yanez Impairment Rating 20 to 39% Impaired (Score 34- 44) Yanez Balance Assessment Evaluation Sitting to Standing Ability Independent w/out Hands Unsupported Stance Safely- 2 minutes Sitting Unsupported, Feet on Floor Safely- 2 minutes Standing to Sitting Ability Safely, Minimal Hand Use Transfer Ability Safely, Minimal Hand Use Unsupported Stance- Eyes Closed Supervision, 10 seconds Unsupported Stance- Eyes Open Supervision to maintain Reaching Forward Standing Safely, 5 inches Pick- Up Object From Floor Independent/Safe Look Behind Shoulder - Standing Shifts Weight Unilateral Turning 360 Degrees Supervision/Verbal Cues Unsupported Stance, Alternating Feet on 4 Steps w/Supervision Stair Unsupported Tandem Stance Small Step- 30 seconds Unilateral Leg Stance Lifts Leg/Unable to Hold Total Score Yanez Total Score (out of 56 points) 42 Yanez Impairment Rating 20 to 39% Impaired (Score 34- 44) Mensah Fall Scale Copyright Permission PT-OP-E Functional Tests Start: 02/20/19 13:46 Freq: Status: Active Protocol: Document 02/20/19 13:45 DCW (Rec: 02/20/19 14:33 DCW [id number]) Functional Tests 2 Minute Walk Test Distance 233 Device Used none Comments 1.94 ft/sec Dynamic Gait Index (DGI) Score 14/24 DGI Impairment Rating 40 to <60% Impaired (Score 10- 14) PT-OP-F Manual Assessment Start: 10/04/17 14:21 Freq: Status: Active Protocol: Document 12/18/18 13:45 DCW (Rec: 12/18/18 14:23 DCW [id number]) Manual Assessments Soft Tissue Assessment Soft Tissue Mobility Assessment Moderate tone in Bilateral thoracic and lumbar paraspinals, piriformis, iliopsoas, and quadratus lumborum. Mild tone in bilateral hamstrings and adductor vinod PT-OP-J Posture/Palpation/Skin Start: 10/04/17 14:21 Freq: Status: Active Protocol: Document 12/18/18 13:45 DCW (Rec: 12/18/18 14:23 DCW [id number]) Posture Evaluation Position Standing Head/C-Spine Posture Forward Head T-Spine Posture Flexible Scoliosis on (L), Increased Kyphosis L-Spine Posture Flexible Scoliosis on (R) Pelvis Posture (L) Iliac Crest Superior Hip Posture (L) Flexed,(R) Flexed Comments Posture Comments Pt's jorge with cues to stand as tall as possible: 5'1 /c 1 .25 heel PT-OP-K Range of Motion Start: 10/04/17 14:21 Freq: Status: Active Protocol: Document 12/18/18 13:45 DCW (Rec: 12/18/18 14:23 DCW [id number]) Lumbar Spine Range of Motion Lumbar Spine Active Degrees Testing Position Standing Comments Max extension, pt is forward flexed 3? at her thoracic spine Shoulder Goniometric Range of Motion Shoulder Left Active Shoulder ROM WFL No Testing Position Sitting Flexion 160 Abduction 153 External Rotation at 0 degrees Abduction 52 Right Active Shoulder ROM WFL No Testing Position Sitting Flexion 158 Abduction 125 External Rotation at 0 degrees Abduction 60 PT-OP-M Strength Start: 10/04/17 14:21 Freq: Status: Active Protocol: Document 12/18/18 13:45 DCW (Rec: 12/18/18 14:23 DCW [id number]) Shoulder Strength Shoulder Manual Muscle Testing Right Flexion 4 Good Abduction (C5) 4+ Good+ External Rotation 4+ Good+ Internal Rotation 5 Normal Left Flexion 4 Good Abduction (C5) 4+ Good+ External Rotation 4+ Good+ Internal Rotation 5 Normal PT-OP-Q Treatments Start: 08/06/17 17:30 Freq: Status: Active Protocol: Document 03/28/19 13:45 DCW (Rec: 03/28/19 14:27 DCW [id number]) Cardio Equipment Upper Body Ergometer (UBE) Duration (Minutes) 5 RPM 60 Seat Position 12 Height 3 Gym Equipment Shuttle Balance Blue Details Eyes open/closed, Staggered Stance Comments vs Perturbation Therapeutic Exercises Supine Exercises 1 Supine Exercise Name Supine on Towel roll at T10-12 Side bilateral Comments increase thoracolumbar extension Manual Therapy Treatment Soft Tissue Mobilization 4 Body Location Piriformis Mobilization Type Strumming,Sustained Pressure, Trigger Point Release Intensity/Depth Deep Body Position Sidelying 3 Body Location Quadratus Lumborum Mobilization Type Myofascial Release,Strumming, Sustained Pressure Intensity/Depth Moderate Body Position Sidelying 2 Body Location Glute Med Mobilization Type Strumming,Sustained Pressure Intensity/Depth Moderate Body Position Sidelying 1 Body Location Lumbar Erector Spinae Mobilization Type Myofascial Release,Sustained Pressure Intensity/Depth Moderate Body Position Sidelying Joint Mobilizations 1 Joint Thoracic Spine Direction P->A Grade III Body Position Sidelying Manual Traction Lumbar Details Hip/Iliac crest depression Body Position Sidelying Comments MWM Neuro Re-Education Treatment Balance Activities SLS Details SLS Surface Firm PT-OP-R Modalities Start: 08/06/17 17:30 Freq: Status: Active Protocol: Document 03/28/19 13:45 DCW (Rec: 03/28/19 14:27 DCW [id number]) Electric Stimulation Electric Stimulation Interferential Current (IFC) Body Location Lumbar Spine Duration (Minutes) 15 Patient Position Sitting Combined With Heat/Cold Hot Pack PT-OP-T Assessment and Plan Start: 08/06/17 17:30 Freq: Status: Active Protocol: Document 03/28/19 13:45 DCW (Rec: 03/28/19 14:27 DCW [id number]) Physical Therapy Assessment Impairments Impairments Activity Tolerance,Balance, Functional Activities, Functional Mobility,Gait,Pain, Posture,ROM,Soft Tissue Mobility,Strength,Tone Goals Seven Impairment Pt displays increased falls risk Short Term Goal (STG) Pt to score a 47/56 on the Yanez Balance Scale to demonstrate a decreased falls risk STG Duration 03/27/19 Superintendent Circus Goal (LTG) Pt to score a 18/24 on the DGI LTG Duration 05/08/19 Six Impairment Difficulty of getting in the car Residential Goal (LTG) Patient will get in to the car with proper mechanics without difficulty anifficultynd low back pain LTG Duration 5 wks Five Impairment Difficulty of lifting laundry from floor to shoulder level Superintendent Circus Goal (LTG) Patient will learn good lifting mechanics to prevent further low back pain. LTG Duration 4 wks Four Impairment Palpable muscle tone Superintendent Circus Goal (LTG) Pt muscle tone grossly to mild levels of tone LTG Duration 4 wks Three Impairment Thoracic Spine ROM Short Term Goal (STG) Thoracic spine to lacking 10 degrees from neutral at full extension STG Duration Met Residential Goal (LTG) Thoracic spine to neutral at full extension LTG Duration 5 wks Two Impairment Pain Residential Goal (LTG) Pt to report decreased pain to a max of 4/10 LTG Duration 4 wks - improving (5/10 on ) One Impairment Activity tolerance Residential Goal (LTG) Pt to tolerate gardening with no increased pain for three hours LTG Duration 4 wks - Improving Assessment Summary Assessment Pt tolerating balance training well, working hard at home on her HEP. Physical Therapy Plan Frequency and Duration Frequency of Treatment 1x/Week Duration of Treatment 3 months Plan of Care Start Date 02/20/19 Plan of Care End Date 05/21/19 Therapeutic Interventions Therapeutic Interventions Aquatic Therapy,Home Exercise Program,Joint Mobilizations, Manual Therapy,Neuromuscular Re-education,Self-Care/Home Management,Soft Tissue Mobilization,Therapeutic Exercises Modalities Cold Pack/Ice Massage,Electric Stimulation,Hot Packs Next Visit Focus/Plan Next Note Type Treatment Note Next Visit Plan Addition of balance/gait rehabilitation
--- NOTE | 2019-04-01 14:28 | PT.OTN ---
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) Pain in thoracic spine (04/01/19) Physical Therapy Treatment Note PT-OP-A Visit Information Start: 08/06/17 17:30 Freq: Status: Active Protocol: Document 04/01/19 13:45 DCW (Rec: 04/01/19 14:27 DCW [id number]) Out-Patient Physical Therapy Visit Information Visit Information Visit Type Treatment Note Visit Start Time 13:45 Visit Stop Time 14:30 Total Visit Minutes 45 Visit Number 79 Number of CLOTH EXAMINER Visits 0 Evaluation Information Evaluation Date 05/28/17 PT-OP-B Current Condition Start: 10/04/17 14:21 Freq: Status: Active Protocol: Document 02/20/19 13:45 DCW (Rec: 02/20/19 14:36 DCW [id number]) Current Condition History of Current Condition History of Current Condition Please see patient's chart in Therapy Source for complete history and initial evaluation ADDENDEM 02/20/19: Pt has a new referral to work on balance and gait. Pt notes she doesn't have any recent falls , but that's because I'm good at grabbing things before I go down. Pt has been using a SPC for assistance, and has recently gotten a FWW, although she has yet to use it . Pt admits that she has not been picking my feet up very well. PT-OP-C Subjective Start: 08/06/17 17:30 Freq: Status: Active Protocol: Document 04/01/19 13:45 DCW (Rec: 04/01/19 14:27 DCW [id number]) OP-PT Subjective Patient Comments Patient Comments Pt is having a difficult time recently, notes her has had some personality changes that she is worried about since he fell last week, she is hopeful that his appointment today with his PCP will help straighten things out. PT-OP-D Balance Start: 02/20/19 13:46 Freq: Status: Active Protocol: Document 02/20/19 13:45 DCW (Rec: 02/20/19 14:33 DCW [id number]) OP-PT Balance Assessment Sitting Balance Static Sitting Balance Ability Good Dynamic Sitting Balance Ability Good Standing Balance Static Standing Balance Ability Fair Dynamic Standing Balance Ability Fair Balance Tests Yanez Balance Test Yanez Balance Test Score 42/56 Yanez Impairment Rating 20 to 39% Impaired (Score 34- 44) Yanez Balance Assessment Evaluation Sitting to Standing Ability Independent w/out Hands Unsupported Stance Safely- 2 minutes Sitting Unsupported, Feet on Floor Safely- 2 minutes Standing to Sitting Ability Safely, Minimal Hand Use Transfer Ability Safely, Minimal Hand Use Unsupported Stance- Eyes Closed Supervision, 10 seconds Unsupported Stance- Eyes Open Supervision to maintain Reaching Forward Standing Safely, 5 inches Pick- Up Object From Floor Independent/Safe Look Behind Shoulder - Standing Shifts Weight Unilateral Turning 360 Degrees Supervision/Verbal Cues Unsupported Stance, Alternating Feet on 4 Steps w/Supervision Stair Unsupported Tandem Stance Small Step- 30 seconds Unilateral Leg Stance Lifts Leg/Unable to Hold Total Score Yanez Total Score (out of 56 points) 42 Yanez Impairment Rating 20 to 39% Impaired (Score 34- 44) Mensah Fall Scale Copyright Permission PT-OP-E Functional Tests Start: 02/20/19 13:46 Freq: Status: Active Protocol: Document 02/20/19 13:45 DCW (Rec: 02/20/19 14:33 DCW [id number]) Functional Tests 2 Minute Walk Test Distance 233 Device Used none Comments 1.94 ft/sec Dynamic Gait Index (DGI) Score 14/24 DGI Impairment Rating 40 to <60% Impaired (Score 10- 14) PT-OP-F Manual Assessment Start: 10/04/17 14:21 Freq: Status: Active Protocol: Document 12/18/18 13:45 DCW (Rec: 12/18/18 14:23 DCW [id number]) Manual Assessments Soft Tissue Assessment Soft Tissue Mobility Assessment Moderate tone in Bilateral thoracic and lumbar paraspinals, piriformis, iliopsoas, and quadratus lumborum. Mild tone in bilateral hamstrings and adductor vinod PT-OP-J Posture/Palpation/Skin Start: 10/04/17 14:21 Freq: Status: Active Protocol: Document 12/18/18 13:45 DCW (Rec: 12/18/18 14:23 DCW [id number]) Posture Evaluation Position Standing Head/C-Spine Posture Forward Head T-Spine Posture Flexible Scoliosis on (L), Increased Kyphosis L-Spine Posture Flexible Scoliosis on (R) Pelvis Posture (L) Iliac Crest Superior Hip Posture (L) Flexed,(R) Flexed Comments Posture Comments Pt's jorge with cues to stand as tall as possible: 5'1 /c 1 .25 heel PT-OP-K Range of Motion Start: 10/04/17 14:21 Freq: Status: Active Protocol: Document 12/18/18 13:45 DCW (Rec: 12/18/18 14:23 DCW [id number]) Lumbar Spine Range of Motion Lumbar Spine Active Degrees Testing Position Standing Comments Max extension, pt is forward flexed 3? at her thoracic spine Shoulder Goniometric Range of Motion Shoulder Left Active Shoulder ROM WFL No Testing Position Sitting Flexion 160 Abduction 153 External Rotation at 0 degrees Abduction 52 Right Active Shoulder ROM WFL No Testing Position Sitting Flexion 158 Abduction 125 External Rotation at 0 degrees Abduction 60 PT-OP-M Strength Start: 10/04/17 14:21 Freq: Status: Active Protocol: Document 12/18/18 13:45 DCW (Rec: 12/18/18 14:23 DCW [id number]) Shoulder Strength Shoulder Manual Muscle Testing Right Flexion 4 Good Abduction (C5) 4+ Good+ External Rotation 4+ Good+ Internal Rotation 5 Normal Left Flexion 4 Good Abduction (C5) 4+ Good+ External Rotation 4+ Good+ Internal Rotation 5 Normal PT-OP-Q Treatments Start: 08/06/17 17:30 Freq: Status: Active Protocol: Document 04/01/19 13:45 DCW (Rec: 04/01/19 14:27 DCW [id number]) Cardio Equipment Upper Body Ergometer (UBE) Duration (Minutes) 5 RPM 60 Seat Position 12 Height 3 Gym Equipment Shuttle Balance Blue Details Eyes open/closed, Staggered Stance Comments vs Perturbation Therapeutic Exercises Supine Exercises 1 Supine Exercise Name Supine on Towel roll at T10-12 Side bilateral Comments increase thoracolumbar extension Sitting Exercises PROM Abduction Sitting Exercise Name Pullies GH Abduction Side bilateral PROM Flexion Sitting Exercise Name Pullies GH flexion Side bilateral Manual Therapy Treatment Soft Tissue Mobilization 4 Body Location Piriformis Mobilization Type Strumming,Sustained Pressure, Trigger Point Release Intensity/Depth Deep Body Position Sidelying 3 Body Location Quadratus Lumborum Mobilization Type Myofascial Release,Strumming, Sustained Pressure Intensity/Depth Moderate Body Position Sidelying 2 Body Location Glute Med Mobilization Type Strumming,Sustained Pressure Intensity/Depth Moderate Body Position Sidelying 1 Body Location Lumbar Erector Spinae Mobilization Type Myofascial Release,Sustained Pressure Intensity/Depth Moderate Body Position Sidelying Joint Mobilizations 1 Joint Thoracic Spine Direction P->A Grade III Body Position Sidelying Manual Traction Lumbar Details Hip/Iliac crest depression Body Position Sidelying Comments MWM Neuro Re-Education Treatment Balance Activities SLS Details SLS Surface Firm Tandem Walking Details Tandem Walking PT-OP-R Modalities Start: 08/06/17 17:30 Freq: Status: Active Protocol: Document 03/28/19 13:45 DCW (Rec: 03/28/19 14:27 DCW [id number]) Electric Stimulation Electric Stimulation Interferential Current (IFC) Body Location Lumbar Spine Duration (Minutes) 15 Patient Position Sitting Combined With Heat/Cold Hot Pack PT-OP-T Assessment and Plan Start: 08/06/17 17:30 Freq: Status: Active Protocol: Document 04/01/19 13:45 DCW (Rec: 04/01/19 14:27 DCW [id number]) Physical Therapy Assessment Impairments Impairments Activity Tolerance,Balance, Functional Activities, Functional Mobility,Gait,Pain, Posture,ROM,Soft Tissue Mobility,Strength,Tone Goals Seven Impairment Pt displays increased falls risk Short Term Goal (STG) Pt to score a 47/56 on the Yanez Balance Scale to demonstrate a decreased falls risk STG Duration 03/27/19 Snf Goal (LTG) Pt to score a 18/24 on the DGI LTG Duration 05/08/19 Six Impairment Difficulty of getting in the car Snf Goal (LTG) Patient will get in to the car with proper mechanics without difficulty anifficultynd low back pain LTG Duration 5 wks Five Impairment Difficulty of lifting laundry from floor to shoulder level Environmental Science Technician Goal (LTG) Patient will learn good lifting mechanics to prevent further low back pain. LTG Duration 4 wks Four Impairment Palpable muscle tone Environmental Science Technician Goal (LTG) Pt muscle tone grossly to mild levels of tone LTG Duration 4 wks Three Impairment Thoracic Spine ROM Short Term Goal (STG) Thoracic spine to lacking 10 degrees from neutral at full extension STG Duration Met Snf Goal (LTG) Thoracic spine to neutral at full extension LTG Duration 5 wks Two Impairment Pain Environmental Science Technician Goal (LTG) Pt to report decreased pain to a max of 4/10 LTG Duration 4 wks - improving (08/09 on ) One Impairment Activity tolerance Environmental Science Technician Goal (LTG) Pt to tolerate gardening with no increased pain for three hours LTG Duration 4 wks - Improving Assessment Summary Assessment Pt tolerated treatment well today, requested to skip e- stim to get to another appointment. Physical Therapy Plan Frequency and Duration Frequency of Treatment 1x/Week Duration of Treatment 3 months Plan of Care Start Date 02/20/19 Plan of Care End Date 05/21/19 Therapeutic Interventions Therapeutic Interventions Aquatic Therapy,Home Exercise Program,Joint Mobilizations, Manual Therapy,Neuromuscular Re-education,Self-Care/Home Management,Soft Tissue Mobilization,Therapeutic Exercises Modalities Cold Pack/Ice Massage,Electric Stimulation,Hot Packs Next Visit Focus/Plan Next Note Type Treatment Note Next Visit Plan Addition of balance/gait rehabilitation
--- NOTE | 2019-04-09 14:30 | PT.OTN ---
Current Diagnoses Scoliosis, unspecified (04/09/19) Spondylosis without myelopathy or radiculopathy, cervical region (04/09/19) Pain in thoracic spine (04/09/19) Physical Therapy Treatment Note PT-OP-A Visit Information Start: 08/06/17 17:30 Freq: Status: Active Protocol: Document 04/09/19 13:45 DCW (Rec: 04/09/19 14:30 DCW [id number]) Out-Patient Physical Therapy Visit Information Visit Information Visit Type Treatment Note Visit Start Time 13:45 Visit Stop Time 14:40 Total Visit Minutes 55 Visit Number 80 Number of HIDES INSPECTOR Visits 0 Evaluation Information Evaluation Date 05/28/17 PT-OP-B Current Condition Start: 10/04/17 14:21 Freq: Status: Active Protocol: Document 02/20/19 13:45 DCW (Rec: 02/20/19 14:36 DCW [id number]) Current Condition History of Current Condition History of Current Condition Please see patient's chart in Therapy Source for complete history and initial evaluation ADDENDEM 02/20/19: Pt has a new referral to work on balance and gait. Pt notes she doesn't have any recent falls , but that's because I'm good at grabbing things before I go down. Pt has been using a SPC for assistance, and has recently gotten a FWW, although she has yet to use it . Pt admits that she has not been picking my feet up very well. PT-OP-C Subjective Start: 08/06/17 17:30 Freq: Status: Active Protocol: Document 04/09/19 13:45 DCW (Rec: 04/09/19 14:30 DCW [id number]) OP-PT Subjective Patient Comments Patient Comments Pt reports she is doing well today, no new complaints. PT-OP-D Balance Start: 02/20/19 13:46 Freq: Status: Active Protocol: Document 02/20/19 13:45 DCW (Rec: 02/20/19 14:33 DCW [id number]) OP-PT Balance Assessment Sitting Balance Static Sitting Balance Ability Good Dynamic Sitting Balance Ability Good Standing Balance Static Standing Balance Ability Fair Dynamic Standing Balance Ability Fair Balance Tests Yanez Balance Test Yanez Balance Test Score 42/56 Yanez Impairment Rating 20 to 39% Impaired (Score 34- 44) Yanez Balance Assessment Evaluation Sitting to Standing Ability Independent w/out Hands Unsupported Stance Safely- 2 minutes Sitting Unsupported, Feet on Floor Safely- 2 minutes Standing to Sitting Ability Safely, Minimal Hand Use Transfer Ability Safely, Minimal Hand Use Unsupported Stance- Eyes Closed Supervision, 10 seconds Unsupported Stance- Eyes Open Supervision to maintain Reaching Forward Standing Safely, 5 inches Pick- Up Object From Floor Independent/Safe Look Behind Shoulder - Standing Shifts Weight Unilateral Turning 360 Degrees Supervision/Verbal Cues Unsupported Stance, Alternating Feet on 4 Steps w/Supervision Stair Unsupported Tandem Stance Small Step- 30 seconds Unilateral Leg Stance Lifts Leg/Unable to Hold Total Score Yanez Total Score (out of 56 points) 42 Yanez Impairment Rating 20 to 39% Impaired (Score 34- 44) Mensah Fall Scale Copyright Permission PT-OP-E Functional Tests Start: 02/20/19 13:46 Freq: Status: Active Protocol: Document 02/20/19 13:45 DCW (Rec: 02/20/19 14:33 DCW [id number]) Functional Tests 2 Minute Walk Test Distance 233 Device Used none Comments 1.94 ft/sec Dynamic Gait Index (DGI) Score 14/24 DGI Impairment Rating 40 to <60% Impaired (Score 10- 14) PT-OP-F Manual Assessment Start: 10/04/17 14:21 Freq: Status: Active Protocol: Document 12/18/18 13:45 DCW (Rec: 12/18/18 14:23 DCW [id number]) Manual Assessments Soft Tissue Assessment Soft Tissue Mobility Assessment Moderate tone in Bilateral thoracic and lumbar paraspinals, piriformis, iliopsoas, and quadratus lumborum. Mild tone in bilateral hamstrings and adductor vinod PT-OP-J Posture/Palpation/Skin Start: 10/04/17 14:21 Freq: Status: Active Protocol: Document 12/18/18 13:45 DCW (Rec: 12/18/18 14:23 DCW [id number]) Posture Evaluation Position Standing Head/C-Spine Posture Forward Head T-Spine Posture Flexible Scoliosis on (L), Increased Kyphosis L-Spine Posture Flexible Scoliosis on (R) Pelvis Posture (L) Iliac Crest Superior Hip Posture (L) Flexed,(R) Flexed Comments Posture Comments Pt's jorge with cues to stand as tall as possible: 5'1 /c 1 .25 heel PT-OP-K Range of Motion Start: 10/04/17 14:21 Freq: Status: Active Protocol: Document 12/18/18 13:45 DCW (Rec: 12/18/18 14:23 DCW [id number]) Lumbar Spine Range of Motion Lumbar Spine Active Degrees Testing Position Standing Comments Max extension, pt is forward flexed 3? at her thoracic spine Shoulder Goniometric Range of Motion Shoulder Left Active Shoulder ROM WFL No Testing Position Sitting Flexion 160 Abduction 153 External Rotation at 0 degrees Abduction 52 Right Active Shoulder ROM WFL No Testing Position Sitting Flexion 158 Abduction 125 External Rotation at 0 degrees Abduction 60 PT-OP-M Strength Start: 10/04/17 14:21 Freq: Status: Active Protocol: Document 12/18/18 13:45 DCW (Rec: 12/18/18 14:23 DCW [id number]) Shoulder Strength Shoulder Manual Muscle Testing Right Flexion 4 Good Abduction (C5) 4+ Good+ External Rotation 4+ Good+ Internal Rotation 5 Normal Left Flexion 4 Good Abduction (C5) 4+ Good+ External Rotation 4+ Good+ Internal Rotation 5 Normal PT-OP-Q Treatments Start: 08/06/17 17:30 Freq: Status: Active Protocol: Document 04/09/19 13:45 DCW (Rec: 04/09/19 14:30 DCW [id number]) Cardio Equipment Upper Body Ergometer (UBE) Duration (Minutes) 5 RPM 60 Seat Position 12 Height 3 Gym Equipment Shuttle Balance Red Details Eyes open/closed, Staggered Stance Therapeutic Exercises Supine Exercises 1 Supine Exercise Name Supine on Towel roll at T10-12 Side bilateral Comments increase thoracolumbar extension Sitting Exercises PROM Abduction Sitting Exercise Name Pullies GH Abduction Side bilateral PROM Flexion Sitting Exercise Name Pullies GH flexion Side bilateral Manual Therapy Treatment Soft Tissue Mobilization 4 Body Location Piriformis Mobilization Type Strumming,Sustained Pressure, Trigger Point Release Intensity/Depth Deep Body Position Sidelying 3 Body Location Quadratus Lumborum Mobilization Type Myofascial Release,Strumming, Sustained Pressure Intensity/Depth Moderate Body Position Sidelying 2 Body Location Glute Med Mobilization Type Strumming,Sustained Pressure Intensity/Depth Moderate Body Position Sidelying 1 Body Location Lumbar Erector Spinae Mobilization Type Myofascial Release,Sustained Pressure Intensity/Depth Moderate Body Position Sidelying Joint Mobilizations 1 Joint Thoracic Spine Direction P->A Grade III Body Position Sidelying Manual Traction Lumbar Details Hip/Iliac crest depression Body Position Sidelying Comments MWM PT-OP-R Modalities Start: 08/06/17 17:30 Freq: Status: Active Protocol: Document 03/28/19 13:45 DCW (Rec: 03/28/19 14:27 DCW [id number]) Electric Stimulation Electric Stimulation Interferential Current (IFC) Body Location Lumbar Spine Duration (Minutes) 15 Patient Position Sitting Combined With Heat/Cold Hot Pack PT-OP-T Assessment and Plan Start: 08/06/17 17:30 Freq: Status: Active Protocol: Document 04/09/19 13:45 DCW (Rec: 04/09/19 14:30 DCW [id number]) Physical Therapy Assessment Impairments Impairments Activity Tolerance,Balance, Functional Activities, Functional Mobility,Gait,Pain, Posture,ROM,Soft Tissue Mobility,Strength,Tone Goals Seven Impairment Pt displays increased falls risk Short Term Goal (STG) Pt to score a 47/56 on the Yanez Balance Scale to demonstrate a decreased falls risk STG Duration 03/27/19 Sealer Sander Goal (LTG) Pt to score a 18/24 on the DGI LTG Duration 05/08/19 Six Impairment Difficulty of getting in the car Long-Term Goal (LTG) Patient will get in to the car with proper mechanics without difficulty anifficultynd low back pain LTG Duration 5 wks Five Impairment Difficulty of lifting laundry from floor to shoulder level Sealer Sander Goal (LTG) Patient will learn good lifting mechanics to prevent further low back pain. LTG Duration 4 wks Four Impairment Palpable muscle tone Sealer Sander Goal (LTG) Pt muscle tone grossly to mild levels of tone LTG Duration 4 wks Three Impairment Thoracic Spine ROM Short Term Goal (STG) Thoracic spine to lacking 10 degrees from neutral at full extension STG Duration Met Sealer Sander Goal (LTG) Thoracic spine to neutral at full extension LTG Duration 5 wks Two Impairment Pain Long-Term Goal (LTG) Pt to report decreased pain to a max of 4/10 LTG Duration 4 wks - improving (5/10 on ) One Impairment Activity tolerance Long-Term Goal (LTG) Pt to tolerate gardening with no increased pain for three hours LTG Duration 4 wks - Improving Assessment Summary Assessment Pt tolerated all treatment well today, except for some increased left hip pain following STM. Physical Therapy Plan Frequency and Duration Frequency of Treatment 1x/Week Duration of Treatment 3 months Plan of Care Start Date 02/20/19 Plan of Care End Date 05/21/19 Therapeutic Interventions Therapeutic Interventions Aquatic Therapy,Home Exercise Program,Joint Mobilizations, Manual Therapy,Neuromuscular Re-education,Self-Care/Home Management,Soft Tissue Mobilization,Therapeutic Exercises Modalities Cold Pack/Ice Massage,Electric Stimulation,Hot Packs Next Visit Focus/Plan Next Note Type Treatment Note Next Visit Plan Addition of balance/gait rehabilitation
--- NOTE | 2019-04-30 16:43 | PT.OTN ---
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 Pt notes she doesn't have any recent falls , but that's because I'm good at grabbing things before I go down. Pt has been using a SPC for assistance, and has recently gotten a FWW, although she has yet to use it . Pt admits that she has not been picking my feet up very well. PT-OP-C Subjective Start: 08/06/17 17:30 Freq: Status: Active Protocol: Document 04/30/19 16:00 DCW (Rec: 04/30/19 16:42 DCW [id number]) OP-PT Subjective Patient Comments Patient Comments Pt notes that her ribs are starting to hurt again recently, with her ribs rubbing on her iliac crest. PT-OP-D Balance Start: 02/20/19 13:46 Freq: Status: Active Protocol: Document 02/20/19 13:45 DCW (Rec: 02/20/19 14:33 DCW [id number]) OP-PT Balance Assessment Sitting Balance Static Sitting Balance Ability Good Dynamic Sitting Balance Ability Good Standing Balance Static Standing Balance Ability Fair Dynamic Standing Balance Ability Fair Balance Tests Yanez Balance Test Yanez Balance Test Score 42/56 Yanez Impairment Rating 20 to 39% Impaired (Score 34- 44) Yanez Balance Assessment Evaluation Sitting to Standing Ability Independent w/out Hands Unsupported Stance Safely- 2 minutes Sitting Unsupported, Feet on Floor Safely- 2 minutes Standing to Sitting Ability Safely, Minimal Hand Use Transfer Ability Safely, Minimal Hand Use Unsupported Stance- Eyes Closed Supervision, 10 seconds Unsupported Stance- Eyes Open Supervision to maintain Reaching Forward Standing Safely, 5 inches Pick- Up Object From Floor Independent/Safe Look Behind Shoulder - Standing Shifts Weight Unilateral Turning 360 Degrees Supervision/Verbal Cues Unsupported Stance, Alternating Feet on 4 Steps w/Supervision Stair Unsupported Tandem Stance Small Step- 30 seconds Unilateral Leg Stance Lifts Leg/Unable to Hold Total Score Yanez Total Score (out of 56 points) 42 Yanez Impairment Rating 20 to 39% Impaired (Score 34- 44) Mensah Fall Scale Copyright Permission PT-OP-E Functional Tests Start: 02/20/19 13:46 Freq: Status: Active Protocol: Document 02/20/19 13:45 DCW (Rec: 02/20/19 14:33 DCW [id number]) Functional Tests 2 Minute Walk Test Distance 233 Device Used none Comments 1.94 ft/sec Dynamic Gait Index (DGI) Score 14/24 DGI Impairment Rating 40 to <60% Impaired (Score 10- 14) PT-OP-F Manual Assessment Start: 10/04/17 14:21 Freq: Status: Active Protocol: Document 12/18/18 13:45 DCW (Rec: 12/18/18 14:23 DCW [id number]) Manual Assessments Soft Tissue Assessment Soft Tissue Mobility Assessment Moderate tone in Bilateral thoracic and lumbar paraspinals, piriformis, iliopsoas, and quadratus lumborum. Mild tone in bilateral hamstrings and adductor vinod PT-OP-J Posture/Palpation/Skin Start: 10/04/17 14:21 Freq: Status: Active Protocol: Document 12/18/18 13:45 DCW (Rec: 12/18/18 14:23 DCW [id number]) Posture Evaluation Position Standing Head/C-Spine Posture Forward Head T-Spine Posture Flexible Scoliosis on (L), Increased Kyphosis L-Spine Posture Flexible Scoliosis on (R) Pelvis Posture (L) Iliac Crest Superior Hip Posture (L) Flexed,(R) Flexed Comments Posture Comments Pt's jorge with cues to stand as tall as possible: 5'1 /c 1 .25 heel PT-OP-K Range of Motion Start: 10/04/17 14:21 Freq: Status: Active Protocol: Document 12/18/18 13:45 DCW (Rec: 12/18/18 14:23 DCW [id number]) Lumbar Spine Range of Motion Lumbar Spine Active Degrees Testing Position Standing Comments Max extension, pt is forward flexed 3? at her thoracic spine Shoulder Goniometric Range of Motion Shoulder Left Active Shoulder ROM WFL No Testing Position Sitting Flexion 160 Abduction 153 External Rotation at 0 degrees Abduction 52 Right Active Shoulder ROM WFL No Testing Position Sitting Flexion 158 Abduction 125 External Rotation at 0 degrees Abduction 60 PT-OP-M Strength Start: 10/04/17 14:21 Freq: Status: Active Protocol: Document 12/18/18 13:45 DCW (Rec: 12/18/18 14:23 DCW [id number]) Shoulder Strength Shoulder Manual Muscle Testing Right Flexion 4 Good Abduction (C5) 4+ Good+ External Rotation 4+ Good+ Internal Rotation 5 Normal Left Flexion 4 Good Abduction (C5) 4+ Good+ External Rotation 4+ Good+ Internal Rotation 5 Normal PT-OP-Q Treatments Start: 08/06/17 17:30 Freq: Status: Active Protocol: Document 04/30/19 16:00 DCW (Rec: 04/30/19 16:42 DCW [id number]) Cardio Equipment Upper Body Ergometer (UBE) Duration (Minutes) 5 RPM 60 Seat Position 12 Height 3 Therapeutic Exercises Supine Exercises 1 Supine Exercise Name Supine on Towel roll at T10-12 Side bilateral Comments increase thoracolumbar extension Sitting Exercises PROM Abduction Sitting Exercise Name Pullies GH Abduction Side bilateral PROM Flexion Sitting Exercise Name Pullies GH flexion Side bilateral Manual Therapy Treatment Soft Tissue Mobilization 4 Body Location Piriformis Mobilization Type Strumming,Sustained Pressure, Trigger Point Release Intensity/Depth Deep Body Position Sidelying 3 Body Location Quadratus Lumborum Mobilization Type Myofascial Release,Strumming, Sustained Pressure Intensity/Depth Moderate Body Position Sidelying 2 Body Location Glute Med Mobilization Type Strumming,Sustained Pressure Intensity/Depth Moderate Body Position Sidelying 1 Body Location Lumbar Erector Spinae Mobilization Type Myofascial Release,Sustained Pressure Intensity/Depth Moderate Body Position Sidelying Joint Mobilizations 1 Joint Thoracic Spine Direction P->A Grade III Body Position Sidelying Manual Traction Lumbar Details Hip/Iliac crest depression Body Position Sidelying Comments MWM PT-OP-R Modalities Start: 08/06/17 17:30 Freq: Status: Active Protocol: Document 04/30/19 16:00 DCW (Rec: 04/30/19 16:42 DCW [id number]) Electric Stimulation Electric Stimulation Interferential Current (IFC) Body Location Lumbar Spine Duration (Minutes) 15 Patient Position Sitting Combined With Heat/Cold Hot Pack PT-OP-T Assessment and Plan Start: 08/06/17 17:30 Freq: Status: Active Protocol: Document 04/30/19 16:00 DCW (Rec: 04/30/19 16:42 DCW [id number]) Physical Therapy Assessment Impairments Impairments Activity Tolerance,Balance, Functional Activities, Functional Mobility,Gait,Pain, Posture,ROM,Soft Tissue Mobility,Strength,Tone Goals Seven Impairment Pt displays increased falls risk Short Term Goal (STG) Pt to score a 47/56 on the Yanez Balance Scale to demonstrate a decreased falls risk STG Duration 03/27/19 Therapeutic Riding Instructor Goal (LTG) Pt to score a 18/24 on the DGI LTG Duration 05/08/19 Six Impairment Difficulty of getting in the car [facility] Goal (LTG) Patient will get in to the car with proper mechanics without difficulty anifficultynd low back pain LTG Duration 5 wks Five Impairment Difficulty of lifting laundry from floor to shoulder level [facility] Goal (LTG) Patient will learn good lifting mechanics to prevent further low back pain. LTG Duration 4 wks Four Impairment Palpable muscle tone Therapeutic Riding Instructor Goal (LTG) Pt muscle tone grossly to mild levels of tone LTG Duration 4 wks Three Impairment Thoracic Spine ROM Short Term Goal (STG) Thoracic spine to lacking 10 degrees from neutral at full extension STG Duration Met Therapeutic Riding Instructor Goal (LTG) Thoracic spine to neutral at full extension LTG Duration 5 wks Two Impairment Pain [facility] Goal (LTG) Pt to report decreased pain to a max of 4/10 LTG Duration 4 wks - improving (5/10 on ) One Impairment Activity tolerance [facility] Goal (LTG) Pt to tolerate gardening with no increased pain for three hours LTG Duration 4 wks - Improving Assessment Summary Assessment Focus today more on manual therapy of low back and hip in an effort to decrease pt's pain from her ribs. Physical Therapy Plan Frequency and Duration Frequency of Treatment 1x/Week Duration of Treatment 3 months Plan of Care Start Date 02/20/19 Plan of Care End Date 05/21/19 Therapeutic Interventions Therapeutic Interventions Aquatic Therapy,Home Exercise Program,Joint Mobilizations, Manual Therapy,Neuromuscular Re-education,Self-Care/Home Management,Soft Tissue Mobilization,Therapeutic Exercises Modalities Cold Pack/Ice Massage,Electric Stimulation,Hot Packs Next Visit Focus/Plan Next Note Type Treatment Note Next Visit Plan Addition of balance/gait rehabilitation
--- NOTE | 2019-05-07 15:11 | PT.OTN ---
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 Pt notes she doesn't have any recent falls , but that's because I'm good at grabbing things before I go down. Pt has been using a SPC for assistance, and has recently gotten a FWW, although she has yet to use it . Pt admits that she has not been picking my feet up very well. PT-OP-C Subjective Start: 08/06/17 17:30 Freq: Status: Active Protocol: Document 05/07/19 14:30 DCW (Rec: 05/07/19 15:11 DCW [id number]) OP-PT Subjective Patient Comments Patient Comments Pt reports she will not have time to stay for e-stim, she has a meeting at 3:00. PT-OP-D Balance Start: 02/20/19 13:46 Freq: Status: Active Protocol: Document 02/20/19 13:45 DCW (Rec: 02/20/19 14:33 DCW [id number]) OP-PT Balance Assessment Sitting Balance Static Sitting Balance Ability Good Dynamic Sitting Balance Ability Good Standing Balance Static Standing Balance Ability Fair Dynamic Standing Balance Ability Fair Balance Tests Yanez Balance Test Yanez Balance Test Score 42/56 Yanez Impairment Rating 20 to 39% Impaired (Score 34- 44) Yanez Balance Assessment Evaluation Sitting to Standing Ability Independent w/out Hands Unsupported Stance Safely- 2 minutes Sitting Unsupported, Feet on Floor Safely- 2 minutes Standing to Sitting Ability Safely, Minimal Hand Use Transfer Ability Safely, Minimal Hand Use Unsupported Stance- Eyes Closed Supervision, 10 seconds Unsupported Stance- Eyes Open Supervision to maintain Reaching Forward Standing Safely, 5 inches Pick- Up Object From Floor Independent/Safe Look Behind Shoulder - Standing Shifts Weight Unilateral Turning 360 Degrees Supervision/Verbal Cues Unsupported Stance, Alternating Feet on 4 Steps w/Supervision Stair Unsupported Tandem Stance Small Step- 30 seconds Unilateral Leg Stance Lifts Leg/Unable to Hold Total Score Yanez Total Score (out of 56 points) 42 Yanez Impairment Rating 20 to 39% Impaired (Score 34- 44) Mensah Fall Scale Copyright Permission PT-OP-E Functional Tests Start: 02/20/19 13:46 Freq: Status: Active Protocol: Document 02/20/19 13:45 DCW (Rec: 02/20/19 14:33 DCW [id number]) Functional Tests 2 Minute Walk Test Distance 233 Device Used none Comments 1.94 ft/sec Dynamic Gait Index (DGI) Score 1424 DGI Impairment Rating 40 to <60% Impaired (Score 10- 14) PT-OP-F Manual Assessment Start: 10/04/17 14:21 Freq: Status: Active Protocol: Document 12/18/18 13:45 DCW (Rec: 12/18/18 14:23 DCW [id number]) Manual Assessments Soft Tissue Assessment Soft Tissue Mobility Assessment Moderate tone in Bilateral thoracic and lumbar paraspinals, piriformis, iliopsoas, and quadratus lumborum. Mild tone in bilateral hamstrings and adductor vinod PT-OP-J Posture/Palpation/Skin Start: 10/04/17 14:21 Freq: Status: Active Protocol: Document 12/18/18 13:45 DCW (Rec: 12/18/18 14:23 DCW [id number]) Posture Evaluation Position Standing Head/C-Spine Posture Forward Head T-Spine Posture Flexible Scoliosis on (L), Increased Kyphosis L-Spine Posture Flexible Scoliosis on (R) Pelvis Posture (L) Iliac Crest Superior Hip Posture (L) Flexed,(R) Flexed Comments Posture Comments Pt's jorge with cues to stand as tall as possible: 5'1 /c 1 .25 heel PT-OP-K Range of Motion Start: 10/04/17 14:21 Freq: Status: Active Protocol: Document 12/18/18 13:45 DCW (Rec: 12/18/18 14:23 DCW [id number]) Lumbar Spine Range of Motion Lumbar Spine Active Degrees Testing Position Standing Comments Max extension, pt is forward flexed 3? at her thoracic spine Shoulder Goniometric Range of Motion Shoulder Left Active Shoulder ROM WFL No Testing Position Sitting Flexion 160 Abduction 153 External Rotation at 0 degrees Abduction 52 Right Active Shoulder ROM WFL No Testing Position Sitting Flexion 158 Abduction 125 External Rotation at 0 degrees Abduction 60 PT-OP-M Strength Start: 10/04/17 14:21 Freq: Status: Active Protocol: Document 12/18/18 13:45 DCW (Rec: 12/18/18 14:23 DCW [id number]) Shoulder Strength Shoulder Manual Muscle Testing Right Flexion 4 Good Abduction (C5) 4+ Good+ External Rotation 4+ Good+ Internal Rotation 5 Normal Left Flexion 4 Good Abduction (C5) 4+ Good+ External Rotation 4+ Good+ Internal Rotation 5 Normal PT-OP-Q Treatments Start: 08/06/17 17:30 Freq: Status: Active Protocol: Document 05/07/19 14:30 DCW (Rec: 05/07/19 15:11 DCW [id number]) Cardio Equipment Upper Body Ergometer (UBE) Duration (Minutes) 5 RPM 60 Seat Position 12 Height 3 Gym Equipment Shuttle Balance Red Details Eyes open/closed, Staggered Stance Manual Therapy Treatment Soft Tissue Mobilization 4 Body Location Piriformis Mobilization Type Strumming,Sustained Pressure, Trigger Point Release Intensity/Depth Deep Body Position Sidelying 3 Body Location Quadratus Lumborum Mobilization Type Myofascial Release,Strumming, Sustained Pressure Intensity/Depth Moderate Body Position Sidelying 2 Body Location Glute Med Mobilization Type Strumming,Sustained Pressure Intensity/Depth Moderate Body Position Sidelying 1 Body Location Lumbar Erector Spinae Mobilization Type Myofascial Release,Sustained Pressure Intensity/Depth Moderate Body Position Sidelying Joint Mobilizations 1 Joint Thoracic Spine Direction P->A Grade III Body Position Sidelying Manual Traction Lumbar Details Hip/Iliac crest depression Body Position Sidelying Comments MWM Neuro Re-Education Treatment Balance Activities SLS Details SLS Equipment // bars Foam Stance Details EO/EC Surface Pascual PT-OP-R Modalities Start: 08/06/17 17:30 Freq: Status: Active Protocol: Document 04/30/19 16:00 DCW (Rec: 04/30/19 16:42 DCW [id number]) Electric Stimulation Electric Stimulation Interferential Current (IFC) Body Location Lumbar Spine Duration (Minutes) 15 Patient Position Sitting Combined With Heat/Cold Hot Pack PT-OP-T Assessment and Plan Start: 08/06/17 17:30 Freq: Status: Active Protocol: Document 05/07/19 14:30 DCW (Rec: 05/07/19 15:11 DCW [id number]) Physical Therapy Assessment Impairments Impairments Activity Tolerance,Balance, Functional Activities, Functional Mobility,Gait,Pain, Posture,ROM,Soft Tissue Mobility,Strength,Tone Goals Seven Impairment Pt displays increased falls risk Short Term Goal (STG) Pt to score a 47/56 on the Yanez Balance Scale to demonstrate a decreased falls risk STG Duration 03/27/19 Steam Plant Records Clerk Goal (LTG) Pt to score a 18/24 on the DGI LTG Duration 05/08/19 Six Impairment Difficulty of getting in the car Detention Goal (LTG) Patient will get in to the car with proper mechanics without difficulty anifficultynd low back pain LTG Duration 5 wks Five Impairment Difficulty of lifting laundry from floor to shoulder level Detention Goal (LTG) Patient will learn good lifting mechanics to prevent further low back pain. LTG Duration 4 wks Four Impairment Palpable muscle tone Detention Goal (LTG) Pt muscle tone grossly to mild levels of tone LTG Duration 4 wks Three Impairment Thoracic Spine ROM Short Term Goal (STG) Thoracic spine to lacking 10 degrees from neutral at full extension STG Duration Met Detention Goal (LTG) Thoracic spine to neutral at full extension LTG Duration 5 wks Two Impairment Pain Steam Plant Records Clerk Goal (LTG) Pt to report decreased pain to a max of 4/10 LTG Duration 4 wks - improving (5/10 on ) One Impairment Activity tolerance Detention Goal (LTG) Pt to tolerate gardening with no increased pain for three hours LTG Duration 4 wks - Improving Assessment Summary Assessment Did more today with balance, pt had to leave early to get to a meeting. Pt will have an upcoming reassessment in the next two weeks. Physical Therapy Plan Frequency and Duration Frequency of Treatment 1x/Week Duration of Treatment 3 months Plan of Care Start Date 02/20/19 Plan of Care End Date 05/21/19 Therapeutic Interventions Therapeutic Interventions Aquatic Therapy,Home Exercise Program,Joint Mobilizations, Manual Therapy,Neuromuscular Re-education,Self-Care/Home Management,Soft Tissue Mobilization,Therapeutic Exercises Modalities Cold Pack/Ice Massage,Electric Stimulation,Hot Packs Next Visit Focus/Plan Next Note Type Treatment Note Next Visit Plan Addition of balance/gait rehabilitation
--- NOTE | 2019-05-13 16:55 | PT.OTN ---
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) Pain in thoracic spine (05/13/19) Physical Therapy Treatment Note PT-OP-A Visit Information Start: 08/06/17 17:30 Freq: Status: Active Protocol: Document 05/13/19 16:00 DCW (Rec: 05/13/19 16:54 DCW [id number]) Out-Patient Physical Therapy Visit Information Visit Information Visit Type Treatment Note Visit Start Time 16:00 Visit Stop Time 16:55 Total Visit Minutes 55 Visit Number 83 Number of CAR REPAIRER HELPER Visits 0 Evaluation Information Evaluation Date 05/28/17 PT-OP-B Current Condition Start: 10/04/17 14:21 Freq: Status: Active Protocol: Document 02/20/19 13:45 DCW (Rec: 02/20/19 14:36 DCW [id number]) Current Condition History of Current Condition History of Current Condition Please see patient's chart in Therapy Source for complete history and initial evaluation ADDENDEM 02/20/19: Pt has a new referral to work on balance and gait. Pt notes she doesn't have any recent falls , but that's because I'm good at grabbing things before I go down. Pt has been using a SPC for assistance, and has recently gotten a FWW, although she has yet to use it . Pt admits that she has not been picking my feet up very well. PT-OP-C Subjective Start: 08/06/17 17:30 Freq: Status: Active Protocol: Document 05/13/19 16:00 DCW (Rec: 05/13/19 16:54 DCW [id number]) OP-PT Subjective Patient Comments Patient Comments Pt is very frustrated today due to trouble buying a mattress, but otherwise is doing well today. PT-OP-D Balance Start: 02/20/19 13:46 Freq: Status: Active Protocol: Document 02/20/19 13:45 DCW (Rec: 02/20/19 14:33 DCW [id number]) OP-PT Balance Assessment Sitting Balance Static Sitting Balance Ability Good Dynamic Sitting Balance Ability Good Standing Balance Static Standing Balance Ability Fair Dynamic Standing Balance Ability Fair Balance Tests Yanez Balance Test Yanez Balance Test Score 42/56 Yanez Impairment Rating 20 to 39% Impaired (Score 34- 44) Yanez Balance Assessment Evaluation Sitting to Standing Ability Independent w/out Hands Unsupported Stance Safely- 2 minutes Sitting Unsupported, Feet on Floor Safely- 2 minutes Standing to Sitting Ability Safely, Minimal Hand Use Transfer Ability Safely, Minimal Hand Use Unsupported Stance- Eyes Closed Supervision, 10 seconds Unsupported Stance- Eyes Open Supervision to maintain Reaching Forward Standing Safely, 5 inches Pick- Up Object From Floor Independent/Safe Look Behind Shoulder - Standing Shifts Weight Unilateral Turning 360 Degrees Supervision/Verbal Cues Unsupported Stance, Alternating Feet on 4 Steps w/Supervision Stair Unsupported Tandem Stance Small Step- 30 seconds Unilateral Leg Stance Lifts Leg/Unable to Hold Total Score Yanez Total Score (out of 56 points) 42 Yanez Impairment Rating 20 to 39% Impaired (Score 34- 44) Mensah Fall Scale Copyright Permission PT-OP-E Functional Tests Start: 02/20/19 13:46 Freq: Status: Active Protocol: Document 02/20/19 13:45 DCW (Rec: 02/20/19 14:33 DCW [id number]) Functional Tests 2 Minute Walk Test Distance 233 Device Used none Comments 1.94 ft/sec Dynamic Gait Index (DGI) Score 14/24 DGI Impairment Rating 40 to <60% Impaired (Score 10- 14) PT-OP-F Manual Assessment Start: 10/04/17 14:21 Freq: Status: Active Protocol: Document 12/18/18 13:45 DCW (Rec: 12/18/18 14:23 DCW [id number]) Manual Assessments Soft Tissue Assessment Soft Tissue Mobility Assessment Moderate tone in Bilateral thoracic and lumbar paraspinals, piriformis, iliopsoas, and quadratus lumborum. Mild tone in bilateral hamstrings and adductor vinod PT-OP-J Posture/Palpation/Skin Start: 10/04/17 14:21 Freq: Status: Active Protocol: Document 12/18/18 13:45 DCW (Rec: 12/18/18 14:23 DCW [id number]) Posture Evaluation Position Standing Head/C-Spine Posture Forward Head T-Spine Posture Flexible Scoliosis on (L), Increased Kyphosis L-Spine Posture Flexible Scoliosis on (R) Pelvis Posture (L) Iliac Crest Superior Hip Posture (L) Flexed,(R) Flexed Comments Posture Comments Pt's jorge with cues to stand as tall as possible: 5'1 /c 1 .25 heel PT-OP-K Range of Motion Start: 10/04/17 14:21 Freq: Status: Active Protocol: Document 12/18/18 13:45 DCW (Rec: 12/18/18 14:23 DCW [id number]) Lumbar Spine Range of Motion Lumbar Spine Active Degrees Testing Position Standing Comments Max extension, pt is forward flexed 3? at her thoracic spine Shoulder Goniometric Range of Motion Shoulder Left Active Shoulder ROM WFL No Testing Position Sitting Flexion 160 Abduction 153 External Rotation at 0 degrees Abduction 52 Right Active Shoulder ROM WFL No Testing Position Sitting Flexion 158 Abduction 125 External Rotation at 0 degrees Abduction 60 PT-OP-M Strength Start: 10/04/17 14:21 Freq: Status: Active Protocol: Document 12/18/18 13:45 DCW (Rec: 12/18/18 14:23 DCW [id number]) Shoulder Strength Shoulder Manual Muscle Testing Right Flexion 4 Good Abduction (C5) 4+ Good+ External Rotation 4+ Good+ Internal Rotation 5 Normal Left Flexion 4 Good Abduction (C5) 4+ Good+ External Rotation 4+ Good+ Internal Rotation 5 Normal PT-OP-Q Treatments Start: 08/06/17 17:30 Freq: Status: Active Protocol: Document 05/13/19 16:00 DCW (Rec: 05/13/19 16:54 DCW [id number]) Cardio Equipment Upper Body Ergometer (UBE) Duration (Minutes) 5 RPM 60 Seat Position 12 Height 3 Gym Equipment Shuttle Balance Red Details Eyes open/closed, Staggered Stance Manual Therapy Treatment Soft Tissue Mobilization 4 Body Location Piriformis Mobilization Type Strumming,Sustained Pressure, Trigger Point Release Intensity/Depth Deep Body Position Sidelying 3 Body Location Quadratus Lumborum Mobilization Type Myofascial Release,Strumming, Sustained Pressure Intensity/Depth Moderate Body Position Sidelying 2 Body Location Glute Med Mobilization Type Strumming,Sustained Pressure Intensity/Depth Moderate Body Position Sidelying 1 Body Location Lumbar Erector Spinae Mobilization Type Myofascial Release,Sustained Pressure Intensity/Depth Moderate Body Position Sidelying Joint Mobilizations 1 Joint Thoracic Spine Direction P->A Grade III Body Position Sidelying Manual Traction Lumbar Details Hip/Iliac crest depression Body Position Sidelying Comments MWM Neuro Re-Education Treatment Balance Activities Hurdles Details Hurdles Equipment // bars PT-OP-R Modalities Start: 08/06/17 17:30 Freq: Status: Active Protocol: Document 05/13/19 16:00 DCW (Rec: 05/13/19 16:54 DCW [id number]) Electric Stimulation Electric Stimulation Interferential Current (IFC) Body Location Lumbar Spine Duration (Minutes) 15 Patient Position Sitting Combined With Heat/Cold Hot Pack PT-OP-T Assessment and Plan Start: 08/06/17 17:30 Freq: Status: Active Protocol: Document 05/13/19 16:00 DCW (Rec: 05/13/19 16:54 DCW [id number]) Physical Therapy Assessment Impairments Impairments Activity Tolerance,Balance, Functional Activities, Functional Mobility,Gait,Pain, Posture,ROM,Soft Tissue Mobility,Strength,Tone Goals Seven Impairment Pt displays increased falls risk Short Term Goal (STG) Pt to score a 47/56 on the Yanez Balance Scale to demonstrate a decreased falls risk STG Duration 03/27/19 Social Worker Palliative Care Goal (LTG) Pt to score a 18/24 on the DGI LTG Duration 05/08/19 Six Impairment Difficulty of getting in the car Residential Goal (LTG) Patient will get in to the car with proper mechanics without difficulty anifficultynd low back pain LTG Duration 5 wks Five Impairment Difficulty of lifting laundry from floor to shoulder level Residential Goal (LTG) Patient will learn good lifting mechanics to prevent further low back pain. LTG Duration 4 wks Four Impairment Palpable muscle tone Residential Goal (LTG) Pt muscle tone grossly to mild levels of tone LTG Duration 4 wks Three Impairment Thoracic Spine ROM Short Term Goal (STG) Thoracic spine to lacking 10 degrees from neutral at full extension STG Duration Met Residential Goal (LTG) Thoracic spine to neutral at full extension LTG Duration 5 wks Two Impairment Pain Residential Goal (LTG) Pt to report decreased pain to a max of 4/10 LTG Duration 4 wks - improving (5/10 on ) One Impairment Activity tolerance Residential Goal (LTG) Pt to tolerate gardening with no increased pain for three hours LTG Duration 4 wks - Improving Assessment Summary Assessment Pt had increased tone and tenderness along left paraspinals. Pt balance looked improved today, will reassess pts level of function next week. Physical Therapy Plan Frequency and Duration Frequency of Treatment 1x/Week Duration of Treatment 3 months Plan of Care Start Date 02/20/19 Plan of Care End Date 05/21/19 Therapeutic Interventions Therapeutic Interventions Aquatic Therapy,Home Exercise Program,Joint Mobilizations, Manual Therapy,Neuromuscular Re-education,Self-Care/Home Management,Soft Tissue Mobilization,Therapeutic Exercises Modalities Cold Pack/Ice Massage,Electric Stimulation,Hot Packs Next Visit Focus/Plan Next Note Type Progress Note Next Visit Plan Assess progress with mobility, balance
--- NOTE | 2019-05-21 17:56 | PT.OTN ---
Current Diagnoses Scoliosis, unspecified (05/21/19) Spondylosis without myelopathy or radiculopathy, cervical region (05/21/19) Pain in thoracic spine (05/21/19) Physical Therapy Treatment Note PT-OP-A Visit Information Start: 08/06/17 17:30 Freq: Status: Active Protocol: Document 05/21/19 14:30 DCW (Rec: 05/21/19 17:55 DCW [id number]) Out-Patient Physical Therapy Visit Information Visit Information Visit Type Progress Note Visit Start Time 14:30 Visit Stop Time 15:15 Total Visit Minutes 45 Visit Number 84 Number of MOLDER MACHINE Visits 0 Evaluation Information Evaluation Date 05/28/17 PT-OP-B Current Condition Start: 10/04/17 14:21 Freq: Status: Active Protocol: Document 02/20/19 13:45 DCW (Rec: 02/20/19 14:36 DCW [id number]) Current Condition History of Current Condition History of Current Condition Please see patient's chart in Therapy Source for complete history and initial evaluation ADDENDEM 02/20/19: Pt has a new referral to work on balance and gait. Pt notes she doesn't have any recent falls , but that's because I'm good at grabbing things before I go down. Pt has been using a SPC for assistance, and has recently gotten a FWW, although she has yet to use it . Pt admits that she has not been picking my feet up very well. PT-OP-C Subjective Start: 08/06/17 17:30 Freq: Status: Active Protocol: Document 05/21/19 14:30 DCW (Rec: 05/21/19 17:55 DCW [id number]) OP-PT Subjective Patient Comments Patient Comments Pt reports she is doing well today, has not been having the hip pain caused by her ribs rubbning on her pelvis. PT-OP-D Balance Start: 02/20/19 13:46 Freq: Status: Active Protocol: Document 05/21/19 14:30 DCW (Rec: 05/21/19 15:12 DCW [id number]) OP-PT Balance Assessment Sitting Balance Static Sitting Balance Ability Good Dynamic Sitting Balance Ability Good Standing Balance Static Standing Balance Ability Fair Dynamic Standing Balance Ability Fair Balance Tests Yanez Balance Test Yanez Balance Test Score 45/56 Yanez Impairment Rating 1 to 19% Impaired (Score 45-55 ) Yanez Balance Assessment Evaluation Sitting to Standing Ability Independent w/out Hands Unsupported Stance Safely- 2 minutes Sitting Unsupported, Feet on Floor Safely- 2 minutes Standing to Sitting Ability Safely, Minimal Hand Use Transfer Ability Safely, Minimal Hand Use Unsupported Stance- Eyes Closed Safely, 10 seconds Unsupported Stance- Eyes Open Independent, 1 minute Reaching Forward Standing Safely, 5 inches Pick- Up Object From Floor Independent/Safe Look Behind Shoulder - Standing Shifts Weight Unilateral Turning 360 Degrees Turns slowly, but safely Unsupported Stance, Alternating Feet on 4 Steps w/Supervision Stair Unsupported Tandem Stance Small Step- 30 seconds Unilateral Leg Stance Lifts Leg/Unable to Hold Total Score Yanez Total Score (out of 56 points) 45 Yanez Impairment Rating 1 to 19% Impaired (Score 45-55 ) Mensah Fall Scale Copyright Permission PT-OP-E Functional Tests Start: 02/20/19 13:46 Freq: Status: Active Protocol: Document 05/21/19 14:30 DCW (Rec: 05/21/19 15:12 DCW [id number]) Functional Tests 2 Minute Walk Test Distance 274 Device Used none Comments 2.28 ft/sec Dynamic Gait Index (DGI) Score 18/24 DGI Impairment Rating 20 to <40% Impaired (Score 15- 19) PT-OP-F Manual Assessment Start: 10/04/17 14:21 Freq: Status: Active Protocol: Document 05/21/19 14:30 DCW (Rec: 05/21/19 15:12 DCW [id number]) Manual Assessments Soft Tissue Assessment Soft Tissue Mobility Assessment Moderate tone in Bilateral thoracic and lumbar paraspinals, piriformis, iliopsoas, and quadratus lumborum. Mild tone in bilateral hamstrings and adductor vinod PT-OP-J Posture/Palpation/Skin Start: 10/04/17 14:21 Freq: Status: Active Protocol: Document 05/21/19 14:30 DCW (Rec: 05/21/19 15:12 DCW [id number]) Posture Evaluation Position Standing Head/C-Spine Posture Forward Head T-Spine Posture Flexible Scoliosis on (L), Increased Kyphosis L-Spine Posture Flexible Scoliosis on (R) Pelvis Posture (L) Iliac Crest Superior Hip Posture (L) Flexed,(R) Flexed Comments Posture Comments Pt's jorge with cues to stand as tall as possible: 5'0.75 / c 0.75 heel PT-OP-K Range of Motion Start: 10/04/17 14:21 Freq: Status: Active Protocol: Document 05/21/19 14:30 DCW (Rec: 05/21/19 15:12 DCW [id number]) Lumbar Spine Range of Motion Lumbar Spine Active Degrees Testing Position Standing Comments Max extension, pt is forward flexed 3? at her thoracic spine Shoulder Goniometric Range of Motion Shoulder Left Active Shoulder ROM WFL No Testing Position Sitting Flexion 162 Abduction 151 External Rotation at 0 degrees Abduction 59 Right Active Shoulder ROM WFL No Testing Position Sitting Flexion 162 Abduction 122 External Rotation at 0 degrees Abduction 60 PT-OP-M Strength Start: 10/04/17 14:21 Freq: Status: Active Protocol: Document 12/18/18 13:45 DCW (Rec: 12/18/18 14:23 DCW [id number]) Shoulder Strength Shoulder Manual Muscle Testing Right Flexion 4 Good Abduction (C5) 4+ Good+ External Rotation 4+ Good+ Internal Rotation 5 Normal Left Flexion 4 Good Abduction (C5) 4+ Good+ External Rotation 4+ Good+ Internal Rotation 5 Normal PT-OP-Q Treatments Start: 08/06/17 17:30 Freq: Status: Active Protocol: Document 05/21/19 14:30 DCW (Rec: 05/21/19 17:55 DCW [id number]) Manual Therapy Treatment Other Other Manual Treatments ROM, Posture testing Neuro Re-Education Treatment Other Activities Testing Comments DGI, Yanez, 2 MWT PT-OP-R Modalities Start: 08/06/17 17:30 Freq: Status: Active Protocol: Document 05/13/19 16:00 DCW (Rec: 05/13/19 16:54 DCW [id number]) Electric Stimulation Electric Stimulation Interferential Current (IFC) Body Location Lumbar Spine Duration (Minutes) 15 Patient Position Sitting Combined With Heat/Cold Hot Pack PT-OP-T Assessment and Plan Start: 08/06/17 17:30 Freq: Status: Active Protocol: Document 05/21/19 14:30 DCW (Rec: 05/21/19 17:55 DCW [id number]) Physical Therapy Assessment Impairments Impairments Activity Tolerance,Balance, Functional Activities, Functional Mobility,Gait,Pain, Posture,ROM,Soft Tissue Mobility,Strength,Tone Goals Seven Impairment Pt displays increased falls risk Short Term Goal (STG) Pt to score a 47/56 on the Yanez Balance Scale to demonstrate a decreased falls risk STG Duration 06/19/19 - Improving 45/56 Care Home Goal (LTG) Pt to score a 18/24 on the DGI - MET New Goal: 21/24 LTG Duration 08/19/19 Six Impairment Difficulty of getting in the car Rolling Mill Plugger Goal (LTG) Patient will get in to the car with proper mechanics without difficulty or low back pain LTG Duration Met Five Impairment Difficulty of lifting laundry from floor to shoulder level Rolling Mill Plugger Goal (LTG) Patient will learn good lifting mechanics to prevent further low back pain. LTG Duration 08/19/19 Four Impairment Palpable muscle tone Rolling Mill Plugger Goal (LTG) Pt muscle tone grossly to mild levels of tone LTG Duration 08/19/19 Three Impairment Thoracic Spine ROM Short Term Goal (STG) Thoracic spine to lacking 10 degrees from neutral at full extension STG Duration Met Rolling Mill Plugger Goal (LTG) Thoracic spine to neutral at full extension LTG Duration 08/19/19 Two Impairment Pain Rolling Mill Plugger Goal (LTG) Pt to report decreased pain to a max of 4/10 LTG Duration 08/19/19 One Impairment Activity tolerance Care Home Goal (LTG) Pt to tolerate gardening with no increased pain for three hours LTG Duration 08/19/19 Assessment Summary Assessment Pt shows improvement in multiple areas since last reassessment. DGI has increased from 14/24 to 18/24, Yanez a smaller increase from 42/56 to 45/56. Her 2 MWT improved 40', and her height has increased 1/4 inch, showing improved ability to improve her posture. Continued skilled therapy indicated to continue to improve balance, posture, decrease pain, and improve functional mobility. Physical Therapy Plan Frequency and Duration Frequency of Treatment 1x/Week Duration of Treatment 3 months Plan of Care Start Date 05/21/19 Plan of Care End Date 08/19/19 Therapeutic Interventions Therapeutic Interventions Aquatic Therapy,Home Exercise Program,Joint Mobilizations, Manual Therapy,Neuromuscular Re-education,Self-Care/Home Management,Soft Tissue Mobilization,Therapeutic Exercises Modalities Cold Pack/Ice Massage,Electric Stimulation,Hot Packs Next Visit Focus/Plan Next Note Type Treatment Note Next Visit Plan Balance training, posture training, shoulder/scapular strengthening, STM
--- NOTE | 2019-05-21 17:56 | PT.OPPOC ---
Physical, Occupational & Speech Therapy At [facility] Current Diagnoses Scoliosis, unspecified (05/21/19) Spondylosis without myelopathy or radiculopathy, cervical region (05/21/19) Pain in thoracic spine (05/21/19) Visit Care Team Role Provider Type Jia Sheridan MD Attending Provider Physician Family Provider Primary Care Provider Specialty: [facility] Address: [address] [place] [address], [facility] [place], [place], [facility] Email: [email or web address] Plan Of Care PT-OP-T Assessment and Plan Start: 08/06/17 17:30 Freq: Status: Active Protocol: Document 05/21/19 14:30 DCW (Rec: 05/21/19 17:55 DCW [id number]) Physical Therapy Assessment Impairments Impairments Activity Tolerance,Balance, Functional Activities, Functional Mobility,Gait,Pain, Posture,ROM,Soft Tissue Mobility,Strength,Tone Goals Seven Impairment Pt displays increased falls risk Short Term Goal (STG) Pt to score a 47/56 on the Yanez Balance Scale to demonstrate a decreased falls risk STG Duration 06/19/19 - Improving 45/56 Mcc Goal (LTG) Pt to score a 18/24 on the DGI - MET New Goal: LTG Duration 08/19/19 Six Impairment Difficulty of getting in the car Mcc Goal (LTG) Patient will get in to the car with proper mechanics without difficulty or low back pain LTG Duration Met Five Impairment Difficulty of lifting laundry from floor to shoulder level Mcc Goal (LTG) Patient will learn good lifting mechanics to prevent further low back pain. LTG Duration 08/19/19 Four Impairment Palpable muscle tone Mcc Goal (LTG) Pt muscle tone grossly to mild levels of tone LTG Duration 08/19/19 Three Impairment Thoracic Spine ROM Short Term Goal (STG) Thoracic spine to lacking 10 degrees from neutral at full extension STG Duration Met Sew Out Operator Goal (LTG) Thoracic spine to neutral at full extension LTG Duration 08/19/19 Two Impairment Pain Sew Out Operator Goal (LTG) Pt to report decreased pain to a max of 4/10 LTG Duration 08/19/19 One Impairment Activity tolerance Mcc Goal (LTG) Pt to tolerate gardening with no increased pain for three hours LTG Duration 08/19/19 Assessment Summary Assessment Pt shows improvement in multiple areas since last reassessment. DGI has increased from to 18, Yanez a smaller increase from 42/56 to 45/56. Her 2 MWT improved 40', and her height has increased 1/4 inch, showing improved ability to improve her posture. Continued skilled therapy indicated to continue to improve balance, posture, decrease pain, and improve functional mobility. Physical Therapy Plan Frequency and Duration Frequency of Treatment 1x/Week Duration of Treatment 3 months Plan of Care Start Date 05/21/19 Plan of Care End Date 08/19/19 Therapeutic Interventions Therapeutic Interventions Aquatic Therapy,Home Exercise Program,Joint Mobilizations, Manual Therapy,Neuromuscular Re-education,Self-Care/Home Management,Soft Tissue Mobilization,Therapeutic Exercises Modalities Cold Pack/Ice Massage,Electric Stimulation,Hot Packs Next Visit Focus/Plan Next Note Type Treatment Note Next Visit Plan Balance training, posture training, shoulder/scapular strengthening, STM Plan of Care Dates Plan of Care Start Date 05/21/19 Plan of Care End Date 08/19/19 Electronically Signed by: Wallace Wilson, PT 05/21/19 [id number] Please Sign and Return: I have reviewed this Plan of Care and certify that the skilled therapy services above are required to meet the patient?s needs. Physician Signature Date Printed Name and Credentials Clinical Instructor Signature Printed Name and Credentials
--- NOTE | 2019-05-28 15:20 | PT.OTN ---
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) Pain in thoracic spine (05/28/19) Physical Therapy Treatment Note PT-OP-A Visit Information Start: 08/06/17 17:30 Freq: Status: Active Protocol: Document 05/28/19 14:30 DCW (Rec: 05/28/19 15:19 DCW [id number]) Out-Patient Physical Therapy Visit Information Visit Information Visit Type Treatment Note Visit Start Time 14:30 Visit Stop Time 15:10 Total Visit Minutes 40 Visit Number 85 Number of QUALITY SUPERVISOR Visits 0 Evaluation Information Evaluation Date 05/28/17 PT-OP-B Current Condition Start: 10/04/17 14:21 Freq: Status: Active Protocol: Document 02/20/19 13:45 DCW (Rec: 02/20/19 14:36 DCW [id number]) Current Condition History of Current Condition History of Current Condition Please see patient's chart in Therapy Source for complete history and initial evaluation ADDENDEM 02/20/19: Pt has a new referral to work on balance and gait. Pt notes she doesn't have any recent falls , but that's because I'm good at grabbing things before I go down. Pt has been using a SPC for assistance, and has recently gotten a FWW, although she has yet to use it . Pt admits that she has not been picking my feet up very well. PT-OP-C Subjective Start: 08/06/17 17:30 Freq: Status: Active Protocol: Document 05/28/19 14:30 DCW (Rec: 05/28/19 15:19 DCW [id number]) OP-PT Subjective Patient Comments Patient Comments Pt feeling pretty good, needs to leave a little early to get to a class. PT-OP-D Balance Start: 02/20/19 13:46 Freq: Status: Active Protocol: Document 05/21/19 14:30 DCW (Rec: 05/21/19 15:12 DCW [id number]) OP-PT Balance Assessment Sitting Balance Static Sitting Balance Ability Good Dynamic Sitting Balance Ability Good Standing Balance Static Standing Balance Ability Fair Dynamic Standing Balance Ability Fair Balance Tests Yanez Balance Test Yanez Balance Test Score 45/56 Yanez Impairment Rating 1 to 19% Impaired (Score 45-55 ) Yanez Balance Assessment Evaluation Sitting to Standing Ability Independent w/out Hands Unsupported Stance Safely- 2 minutes Sitting Unsupported, Feet on Floor Safely- 2 minutes Standing to Sitting Ability Safely, Minimal Hand Use Transfer Ability Safely, Minimal Hand Use Unsupported Stance- Eyes Closed Safely, 10 seconds Unsupported Stance- Eyes Open Independent, 1 minute Reaching Forward Standing Safely, 5 inches Pick- Up Object From Floor Independent/Safe Look Behind Shoulder - Standing Shifts Weight Unilateral Turning 360 Degrees Turns slowly, but safely Unsupported Stance, Alternating Feet on 4 Steps w/Supervision Stair Unsupported Tandem Stance Small Step- 30 seconds Unilateral Leg Stance Lifts Leg/Unable to Hold Total Score Yanez Total Score (out of 56 points) 45 Yanez Impairment Rating 1 to 19% Impaired (Score 45-55 ) Mensah Fall Scale Copyright Permission PT-OP-E Functional Tests Start: 02/20/19 13:46 Freq: Status: Active Protocol: Document 05/21/19 14:30 DCW (Rec: 05/21/19 15:12 DCW [id number]) Functional Tests 2 Minute Walk Test Distance 274 Device Used none Comments 2.28 ft/sec Dynamic Gait Index (DGI) Score 18/24 DGI Impairment Rating 20 to <40% Impaired (Score 15- 19) PT-OP-F Manual Assessment Start: 10/04/17 14:21 Freq: Status: Active Protocol: Document 05/21/19 14:30 DCW (Rec: 05/21/19 15:12 DCW [id number]) Manual Assessments Soft Tissue Assessment Soft Tissue Mobility Assessment Moderate tone in Bilateral thoracic and lumbar paraspinals, piriformis, iliopsoas, and quadratus lumborum. Mild tone in bilateral hamstrings and adductor vinod PT-OP-J Posture/Palpation/Skin Start: 10/04/17 14:21 Freq: Status: Active Protocol: Document 05/21/19 14:30 DCW (Rec: 05/21/19 15:12 DCW [id number]) Posture Evaluation Position Standing Head/C-Spine Posture Forward Head T-Spine Posture Flexible Scoliosis on (L), Increased Kyphosis L-Spine Posture Flexible Scoliosis on (R) Pelvis Posture (L) Iliac Crest Superior Hip Posture (L) Flexed,(R) Flexed Comments Posture Comments Pt's jorge with cues to stand as tall as possible: 5'0.75 / c 0.75 heel PT-OP-K Range of Motion Start: 10/04/17 14:21 Freq: Status: Active Protocol: Document 05/21/19 14:30 DCW (Rec: 05/21/19 15:12 DCW [id number]) Lumbar Spine Range of Motion Lumbar Spine Active Degrees Testing Position Standing Comments Max extension, pt is forward flexed 3? at her thoracic spine Shoulder Goniometric Range of Motion Shoulder Left Active Shoulder ROM WFL No Testing Position Sitting Flexion 162 Abduction 151 External Rotation at 0 degrees Abduction 59 Right Active Shoulder ROM WFL No Testing Position Sitting Flexion 162 Abduction 122 External Rotation at 0 degrees Abduction 60 PT-OP-M Strength Start: 10/04/17 14:21 Freq: Status: Active Protocol: Document 12/18/18 13:45 DCW (Rec: 12/18/18 14:23 DCW [id number]) Shoulder Strength Shoulder Manual Muscle Testing Right Flexion 4 Good Abduction (C5) 4+ Good+ External Rotation 4+ Good+ Internal Rotation 5 Normal Left Flexion 4 Good Abduction (C5) 4+ Good+ External Rotation 4+ Good+ Internal Rotation 5 Normal PT-OP-Q Treatments Start: 08/06/17 17:30 Freq: Status: Active Protocol: Document 05/28/19 14:30 DCW (Rec: 05/28/19 15:19 DCW [id number]) Cardio Equipment Upper Body Ergometer (UBE) Duration (Minutes) 5 RPM 60 Seat Position 12 Height 3 Gym Equipment Shuttle Balance Red Details Eyes open/closed, Staggered Stance Therapeutic Exercises Supine Exercises 1 Supine Exercise Name Supine on Towel roll at T10-12 Side bilateral Comments increase thoracolumbar extension Manual Therapy Treatment Soft Tissue Mobilization 4 Body Location Piriformis Mobilization Type Strumming,Sustained Pressure, Trigger Point Release Intensity/Depth Deep Body Position Sidelying 3 Body Location Quadratus Lumborum Mobilization Type Myofascial Release,Strumming, Sustained Pressure Intensity/Depth Moderate Body Position Sidelying 2 Body Location Glute Med Mobilization Type Strumming,Sustained Pressure Intensity/Depth Moderate Body Position Sidelying 1 Body Location Lumbar Erector Spinae Mobilization Type Myofascial Release,Sustained Pressure Intensity/Depth Moderate Body Position Sidelying Joint Mobilizations 1 Joint Thoracic Spine Direction P->A Grade III Body Position Sidelying Manual Traction Lumbar Details Hip/Iliac crest depression Body Position Sidelying Comments MWM PT-OP-R Modalities Start: 08/06/17 17:30 Freq: Status: Active Protocol: Document 05/13/19 16:00 DCW (Rec: 05/13/19 16:54 DCW [id number]) Electric Stimulation Electric Stimulation Interferential Current (IFC) Body Location Lumbar Spine Duration (Minutes) 15 Patient Position Sitting Combined With Heat/Cold Hot Pack PT-OP-T Assessment and Plan Start: 08/06/17 17:30 Freq: Status: Active Protocol: Document 05/28/19 14:30 DCW (Rec: 05/28/19 15:19 DCW [id number]) Physical Therapy Assessment Impairments Impairments Activity Tolerance,Balance, Functional Activities, Functional Mobility,Gait,Pain, Posture,ROM,Soft Tissue Mobility,Strength,Tone Goals Seven Impairment Pt displays increased falls risk Short Term Goal (STG) Pt to score a 47/56 on the Yanez Balance Scale to demonstrate a decreased falls risk STG Duration 06/19/19 - Improving 45/56 Mcfp Goal (LTG) Pt to score a 18/24 on the DGI - MET New Goal: LTG Duration 08/19/19 Six Impairment Difficulty of getting in the car Mcfp Goal (LTG) Patient will get in to the car with proper mechanics without difficulty or low back pain LTG Duration Met Five Impairment Difficulty of lifting laundry from floor to shoulder level Inspector [employer]ys Goal (LTG) Patient will learn good lifting mechanics to prevent further low back pain. LTG Duration 08/19/19 Four Impairment Palpable muscle tone Mcfp Goal (LTG) Pt muscle tone grossly to mild levels of tone LTG Duration 08/19/19 Three Impairment Thoracic Spine ROM Short Term Goal (STG) Thoracic spine to lacking 10 degrees from neutral at full extension STG Duration Met [employer] Goal (LTG) Thoracic spine to neutral at full extension LTG Duration 08/19/19 Two Impairment Pain Mcfp Goal (LTG) Pt to report decreased pain to a max of 4/10 LTG Duration 08/19/19 One Impairment Activity tolerance Mcfp Goal (LTG) Pt to tolerate gardening with no increased pain for three hours LTG Duration 08/19/19 Assessment Summary Assessment Ended session 5 minutes early today to allow for pt to get to her class in time. Pt tolerated all treatment well, had some increased discomfort with right paraspinal STM. Physical Therapy Plan Frequency and Duration Frequency of Treatment 1x/Week Duration of Treatment 3 months Plan of Care Start Date 05/21/19 Plan of Care End Date 08/19/19 Therapeutic Interventions Therapeutic Interventions Aquatic Therapy,Home Exercise Program,Joint Mobilizations, Manual Therapy,Neuromuscular Re-education,Self-Care/Home Management,Soft Tissue Mobilization,Therapeutic Exercises Modalities Cold Pack/Ice Massage,Electric Stimulation,Hot Packs Next Visit Focus/Plan Next Note Type Treatment Note Next Visit Plan Balance training, posture training, shoulder/scapular strengthening, STM
--- NOTE | 2019-06-04 14:32 | PT.OTN ---
Current Diagnoses Scoliosis, unspecified (06/04/19) Spondylosis without myelopathy or radiculopathy, cervical region (06/04/19) Pain in thoracic spine (06/04/19) Physical Therapy Treatment Note PT-OP-A Visit Information Start: 08/06/17 17:30 Freq: Status: Active Protocol: Document 06/04/19 13:45 DCW (Rec: 06/04/19 14:31 DCW [id number]) Out-Patient Physical Therapy Visit Information Visit Information Visit Type Treatment Note Visit Start Time 13:45 Visit Stop Time 14:30 Total Visit Minutes 45 Visit Number 86 Number of DYE BOARDING MACHINE OPERATOR Visits 0 Evaluation Information Evaluation Date 05/28/17 PT-OP-B Current Condition Start: 10/04/17 14:21 Freq: Status: Active Protocol: Document 02/20/19 13:45 DCW (Rec: 02/20/19 14:36 DCW [id number]) Current Condition History of Current Condition History of Current Condition Please see patient's chart in Therapy Source for complete history and initial evaluation ADDENDEM 02/20/19: Pt has a new referral to work on balance and gait. Pt notes she doesn't have any recent falls , but that's because I'm good at grabbing things before I go down. Pt has been using a SPC for assistance, and has recently gotten a FWW, although she has yet to use it . Pt admits that she has not been picking my feet up very well. PT-OP-C Subjective Start: 08/06/17 17:30 Freq: Status: Active Protocol: Document 06/04/19 13:45 DCW (Rec: 06/04/19 14:31 DCW [id number]) OP-PT Subjective Patient Comments Patient Comments Pt reports her back was terrible last night, but not too bad now. My ribs have been bothering me again. PT-OP-D Balance Start: 02/20/19 13:46 Freq: Status: Active Protocol: Document 05/21/19 14:30 DCW (Rec: 05/21/19 15:12 DCW [id number]) OP-PT Balance Assessment Sitting Balance Static Sitting Balance Ability Good Dynamic Sitting Balance Ability Good Standing Balance Static Standing Balance Ability Fair Dynamic Standing Balance Ability Fair Balance Tests Yanez Balance Test Yanez Balance Test Score 45/56 Yanez Impairment Rating 1 to 19% Impaired (Score 45-55 ) Yanez Balance Assessment Evaluation Sitting to Standing Ability Independent w/out Hands Unsupported Stance Safely- 2 minutes Sitting Unsupported, Feet on Floor Safely- 2 minutes Standing to Sitting Ability Safely, Minimal Hand Use Transfer Ability Safely, Minimal Hand Use Unsupported Stance- Eyes Closed Safely, 10 seconds Unsupported Stance- Eyes Open Independent, 1 minute Reaching Forward Standing Safely, 5 inches Pick- Up Object From Floor Independent/Safe Look Behind Shoulder - Standing Shifts Weight Unilateral Turning 360 Degrees Turns slowly, but safely Unsupported Stance, Alternating Feet on 4 Steps w/Supervision Stair Unsupported Tandem Stance Small Step- 30 seconds Unilateral Leg Stance Lifts Leg/Unable to Hold Total Score Yanez Total Score (out of 56 points) 45 Yanez Impairment Rating 1 to 19% Impaired (Score 45-55 ) Mensah Fall Scale Copyright Permission PT-OP-E Functional Tests Start: 02/20/19 13:46 Freq: Status: Active Protocol: Document 05/21/19 14:30 DCW (Rec: 05/21/19 15:12 DCW [id number]) Functional Tests 2 Minute Walk Test Distance 274 Device Used none Comments 2.28 ft/sec Dynamic Gait Index (DGI) Score 18/24 DGI Impairment Rating 20 to <40% Impaired (Score 15- 19) PT-OP-F Manual Assessment Start: 10/04/17 14:21 Freq: Status: Active Protocol: Document 05/21/19 14:30 DCW (Rec: 05/21/19 15:12 DCW [id number]) Manual Assessments Soft Tissue Assessment Soft Tissue Mobility Assessment Moderate tone in Bilateral thoracic and lumbar paraspinals, piriformis, iliopsoas, and quadratus lumborum. Mild tone in bilateral hamstrings and adductor vinod PT-OP-J Posture/Palpation/Skin Start: 10/04/17 14:21 Freq: Status: Active Protocol: Document 05/21/19 14:30 DCW (Rec: 05/21/19 15:12 DCW [id number]) Posture Evaluation Position Standing Head/C-Spine Posture Forward Head T-Spine Posture Flexible Scoliosis on (L), Increased Kyphosis L-Spine Posture Flexible Scoliosis on (R) Pelvis Posture (L) Iliac Crest Superior Hip Posture (L) Flexed,(R) Flexed Comments Posture Comments Pt's jorge with cues to stand as tall as possible: 5'0.75 / c 0.75 heel PT-OP-K Range of Motion Start: 10/04/17 14:21 Freq: Status: Active Protocol: Document 05/21/19 14:30 DCW (Rec: 05/21/19 15:12 DCW [id number]) Lumbar Spine Range of Motion Lumbar Spine Active Degrees Testing Position Standing Comments Max extension, pt is forward flexed 3? at her thoracic spine Shoulder Goniometric Range of Motion Shoulder Left Active Shoulder ROM WFL No Testing Position Sitting Flexion 162 Abduction 151 External Rotation at 0 degrees Abduction 59 Right Active Shoulder ROM WFL No Testing Position Sitting Flexion 162 Abduction 122 External Rotation at 0 degrees Abduction 60 PT-OP-M Strength Start: 10/04/17 14:21 Freq: Status: Active Protocol: Document 12/18/18 13:45 DCW (Rec: 12/18/18 14:23 DCW [id number]) Shoulder Strength Shoulder Manual Muscle Testing Right Flexion 4 Good Abduction (C5) 4+ Good+ External Rotation 4+ Good+ Internal Rotation 5 Normal Left Flexion 4 Good Abduction (C5) 4+ Good+ External Rotation 4+ Good+ Internal Rotation 5 Normal PT-OP-Q Treatments Start: 08/06/17 17:30 Freq: Status: Active Protocol: Document 06/04/19 13:45 DCW (Rec: 06/04/19 14:31 DCW [id number]) Cardio Equipment Upper Body Ergometer (UBE) Duration (Minutes) 5 RPM 60 Seat Position 12 Height 3 Gym Equipment Shuttle Balance Red Details Eyes open/closed, Staggered Stance Therapeutic Exercises Supine Exercises 1 Supine Exercise Name Supine on Towel roll at T10-12 Side bilateral Comments increase thoracolumbar extension Standing Exercises Rows Standing Exercise Name Rows Side bilateral Resistance Lv 3 Equipment Used T-band Shoulder Extension Standing Exercise Name Extension Side bilateral Resistance Lv 3 Equipment Used T-band Manual Therapy Treatment Soft Tissue Mobilization 4 Body Location Piriformis Mobilization Type Strumming,Sustained Pressure, Trigger Point Release Intensity/Depth Deep Body Position Sidelying 3 Body Location Quadratus Lumborum Mobilization Type Myofascial Release,Strumming, Sustained Pressure Intensity/Depth Moderate Body Position Sidelying 2 Body Location Glute Med Mobilization Type Strumming,Sustained Pressure Intensity/Depth Moderate Body Position Sidelying 1 Body Location Lumbar Erector Spinae Mobilization Type Myofascial Release,Sustained Pressure Intensity/Depth Moderate Body Position Sidelying Joint Mobilizations 1 Joint Thoracic Spine Direction P->A Grade III Body Position Sidelying Manual Traction Lumbar Details Hip/Iliac crest depression Body Position Sidelying Comments MWM PT-OP-R Modalities Start: 08/06/17 17:30 Freq: Status: Active Protocol: Document 06/04/19 13:45 DCW (Rec: 06/04/19 14:32 DCW [id number]) Electric Stimulation Electric Stimulation Interferential Current (IFC) Body Location Lumbar Spine Duration (Minutes) 15 Patient Position Sitting Combined With Heat/Cold Hot Pack PT-OP-T Assessment and Plan Start: 08/06/17 17:30 Freq: Status: Active Protocol: Document 06/04/19 13:45 DCW (Rec: 06/04/19 14:31 DCW [id number]) Physical Therapy Assessment Impairments Impairments Activity Tolerance,Balance, Functional Activities, Functional Mobility,Gait,Pain, Posture,ROM,Soft Tissue Mobility,Strength,Tone Goals Seven Impairment Pt displays increased falls risk Short Term Goal (STG) Pt to score a 47/56 on the Yanez Balance Scale to demonstrate a decreased falls risk STG Duration 06/19/19 - Improving 45/56 Safety And Health Manager Goal (LTG) Pt to score a 18/24 on the DGI - MET New Goal: LTG Duration 08/19/19 Six Impairment Difficulty of getting in the car [facility] Goal (LTG) Patient will get in to the car with proper mechanics without difficulty or low back pain LTG Duration Met Five Impairment Difficulty of lifting laundry from floor to shoulder level Safety And Health Manager Goal (LTG) Patient will learn good lifting mechanics to prevent further low back pain. LTG Duration 08/19/19 Four Impairment Palpable muscle tone Safety And Health Manager Goal (LTG) Pt muscle tone grossly to mild levels of tone LTG Duration 08/19/19 Three Impairment Thoracic Spine ROM Short Term Goal (STG) Thoracic spine to lacking 10 degrees from neutral at full extension STG Duration Met [facility]ci Goal (LTG) Thoracic spine to neutral at full extension LTG Duration 08/19/19 Two Impairment Pain Safety And Health Manager Goal (LTG) Pt to report decreased pain to a max of 4/10 LTG Duration 08/19/19 One Impairment Activity tolerance Safety And Health Manager Goal (LTG) Pt to tolerate gardening with no increased pain for three hours LTG Duration 08/19/19 Assessment Summary Assessment Pt had decreased tone compared to last week, much better lumbar mobility. Physical Therapy Plan Frequency and Duration Frequency of Treatment 1x/Week Duration of Treatment 3 months Plan of Care Start Date 05/21/19 Plan of Care End Date 08/19/19 Therapeutic Interventions Therapeutic Interventions Aquatic Therapy,Home Exercise Program,Joint Mobilizations, Manual Therapy,Neuromuscular Re-education,Self-Care/Home Management,Soft Tissue Mobilization,Therapeutic Exercises Modalities Cold Pack/Ice Massage,Electric Stimulation,Hot Packs Next Visit Focus/Plan Next Note Type Treatment Note Next Visit Plan Balance training, posture training, shoulder/scapular strengthening, STM
--- NOTE | 2019-06-11 15:16 | PT.OTN ---
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) Pain in thoracic spine (06/11/19) Physical Therapy Treatment Note PT-OP-A Visit Information Start: 08/06/17 17:30 Freq: Status: Active Protocol: Document 06/11/19 14:30 DCW (Rec: 06/11/19 15:16 DCW [id number]) Out-Patient Physical Therapy Visit Information Visit Information Visit Type Treatment Note Visit Start Time 14:30 Visit Stop Time 15:10 Total Visit Minutes 40 Visit Number 87 Number of HOLDER PILE DRIVING Visits 0 Evaluation Information Evaluation Date 05/28/17 PT-OP-B Current Condition Start: 10/04/17 14:21 Freq: Status: Active Protocol: Document 02/20/19 13:45 DCW (Rec: 02/20/19 14:36 DCW [id number]) Current Condition History of Current Condition History of Current Condition Please see patient's chart in Therapy Source for complete history and initial evaluation ADDENDEM 02/20/19: Pt has a new referral to work on balance and gait. Pt notes she doesn't have any recent falls , but that's because I'm good at grabbing things before I go down. Pt has been using a SPC for assistance, and has recently gotten a FWW, although she has yet to use it . Pt admits that she has not been picking my feet up very well. PT-OP-C Subjective Start: 08/06/17 17:30 Freq: Status: Active Protocol: Document 06/11/19 14:30 DCW (Rec: 06/11/19 15:16 DCW [id number]) OP-PT Subjective Patient Comments Patient Comments Pt reports overall she is doing alright today. PT-OP-D Balance Start: 02/20/19 13:46 Freq: Status: Active Protocol: Document 05/21/19 14:30 DCW (Rec: 05/21/19 15:12 DCW [id number]) OP-PT Balance Assessment Sitting Balance Static Sitting Balance Ability Good Dynamic Sitting Balance Ability Good Standing Balance Static Standing Balance Ability Fair Dynamic Standing Balance Ability Fair Balance Tests Yanez Balance Test Yanez Balance Test Score 45/56 Yanez Impairment Rating 1 to 19% Impaired (Score 45-55 ) Yanez Balance Assessment Evaluation Sitting to Standing Ability Independent w/out Hands Unsupported Stance Safely- 2 minutes Sitting Unsupported, Feet on Floor Safely- 2 minutes Standing to Sitting Ability Safely, Minimal Hand Use Transfer Ability Safely, Minimal Hand Use Unsupported Stance- Eyes Closed Safely, 10 seconds Unsupported Stance- Eyes Open Independent, 1 minute Reaching Forward Standing Safely, 5 inches Pick- Up Object From Floor Independent/Safe Look Behind Shoulder - Standing Shifts Weight Unilateral Turning 360 Degrees Turns slowly, but safely Unsupported Stance, Alternating Feet on 4 Steps w/Supervision Stair Unsupported Tandem Stance Small Step- 30 seconds Unilateral Leg Stance Lifts Leg/Unable to Hold Total Score Yanez Total Score (out of 56 points) 45 Yanez Impairment Rating 1 to 19% Impaired (Score 45-55 ) Mensah Fall Scale Copyright Permission PT-OP-E Functional Tests Start: 02/20/19 13:46 Freq: Status: Active Protocol: Document 05/21/19 14:30 DCW (Rec: 05/21/19 15:12 DCW [id number]) Functional Tests 2 Minute Walk Test Distance 274 Device Used none Comments 2.28 ft/sec Dynamic Gait Index (DGI) Score 18/24 DGI Impairment Rating 20 to <40% Impaired (Score 15- 19) PT-OP-F Manual Assessment Start: 10/04/17 14:21 Freq: Status: Active Protocol: Document 05/21/19 14:30 DCW (Rec: 05/21/19 15:12 DCW [id number]) Manual Assessments Soft Tissue Assessment Soft Tissue Mobility Assessment Moderate tone in Bilateral thoracic and lumbar paraspinals, piriformis, iliopsoas, and quadratus lumborum. Mild tone in bilateral hamstrings and adductor vinod PT-OP-J Posture/Palpation/Skin Start: 10/04/17 14:21 Freq: Status: Active Protocol: Document 05/21/19 14:30 DCW (Rec: 05/21/19 15:12 DCW [id number]) Posture Evaluation Position Standing Head/C-Spine Posture Forward Head T-Spine Posture Flexible Scoliosis on (L), Increased Kyphosis L-Spine Posture Flexible Scoliosis on (R) Pelvis Posture (L) Iliac Crest Superior Hip Posture (L) Flexed,(R) Flexed Comments Posture Comments Pt's jorge with cues to stand as tall as possible: 5'0.75 / c 0.75 heel PT-OP-K Range of Motion Start: 10/04/17 14:21 Freq: Status: Active Protocol: Document 05/21/19 14:30 DCW (Rec: 05/21/19 15:12 DCW [id number]) Lumbar Spine Range of Motion Lumbar Spine Active Degrees Testing Position Standing Comments Max extension, pt is forward flexed 3? at her thoracic spine Shoulder Goniometric Range of Motion Shoulder Left Active Shoulder ROM WFL No Testing Position Sitting Flexion 162 Abduction 151 External Rotation at 0 degrees Abduction 59 Right Active Shoulder ROM WFL No Testing Position Sitting Flexion 162 Abduction 122 External Rotation at 0 degrees Abduction 60 PT-OP-M Strength Start: 10/04/17 14:21 Freq: Status: Active Protocol: Document 12/18/18 13:45 DCW (Rec: 12/18/18 14:23 DCW [id number]) Shoulder Strength Shoulder Manual Muscle Testing Right Flexion 4 Good Abduction (C5) 4+ Good+ External Rotation 4+ Good+ Internal Rotation 5 Normal Left Flexion 4 Good Abduction (C5) 4+ Good+ External Rotation 4+ Good+ Internal Rotation 5 Normal PT-OP-Q Treatments Start: 08/06/17 17:30 Freq: Status: Active Protocol: Document 06/11/19 14:30 DCW (Rec: 06/11/19 15:16 DCW [id number]) Cardio Equipment Upper Body Ergometer (UBE) Duration (Minutes) 5 RPM 60 Seat Position 12 Height 3 Gym Equipment Shuttle Balance Red Details Eyes open/closed, Staggered Stance Therapeutic Exercises Supine Exercises 1 Supine Exercise Name Supine on Towel roll at T10-12 Side bilateral Comments increase thoracolumbar extension Manual Therapy Treatment Soft Tissue Mobilization 4 Body Location Piriformis Mobilization Type Strumming,Sustained Pressure, Trigger Point Release Intensity/Depth Deep Body Position Sidelying 3 Body Location Quadratus Lumborum Mobilization Type Myofascial Release,Strumming, Sustained Pressure Intensity/Depth Moderate Body Position Sidelying 2 Body Location Glute Med Mobilization Type Strumming,Sustained Pressure Intensity/Depth Moderate Body Position Sidelying 1 Body Location Lumbar Erector Spinae Mobilization Type Myofascial Release,Sustained Pressure Intensity/Depth Moderate Body Position Sidelying Joint Mobilizations 1 Joint Thoracic Spine Direction P->A Grade III Body Position Sidelying Manual Traction Lumbar Details Hip/Iliac crest depression Body Position Sidelying Comments MWM PT-OP-R Modalities Start: 08/06/17 17:30 Freq: Status: Active Protocol: Document 06/11/19 14:30 DCW (Rec: 06/11/19 15:16 DCW [id number]) Electric Stimulation Electric Stimulation Interferential Current (IFC) Body Location Lumbar Spine Duration (Minutes) 15 Patient Position Sitting Combined With Heat/Cold Hot Pack PT-OP-T Assessment and Plan Start: 08/06/17 17:30 Freq: Status: Active Protocol: Document 06/11/19 14:30 DCW (Rec: 06/11/19 15:16 DCW [id number]) Physical Therapy Assessment Impairments Impairments Activity Tolerance,Balance, Functional Activities, Functional Mobility,Gait,Pain, Posture,ROM,Soft Tissue Mobility,Strength,Tone Goals Seven Impairment Pt displays increased falls risk Short Term Goal (STG) Pt to score a 47/56 on the Yanez Balance Scale to demonstrate a decreased falls risk STG Duration 06/19/19 - Improving 45/56 Fci Goal (LTG) Pt to score a 18/24 on the DGI - MET New Goal: LTG Duration 08/19/19 Six Impairment Difficulty of getting in the car Fci Goal (LTG) Patient will get in to the car with proper mechanics without difficulty or low back pain LTG Duration Met Five Impairment Difficulty of lifting laundry from floor to shoulder level Fci Goal (LTG) Patient will learn good lifting mechanics to prevent further low back pain. LTG Duration 08/19/19 Four Impairment Palpable muscle tone [employer] C[employer] Developer Goal (LTG) Pt muscle tone grossly to mild levels of tone LTG Duration 08/19/19 Three Impairment Thoracic Spine ROM Short Term Goal (STG) Thoracic spine to lacking 10 degrees from neutral at full extension STG Duration Met [employer] C[employer] Developer Goal (LTG) Thoracic spine to neutral at full extension LTG Duration 08/19/19 Two Impairment Pain Fci Goal (LTG) Pt to report decreased pain to a max of 4/10 LTG Duration 08/19/19 One Impairment Activity tolerance [employer] Crm Developer Goal (LTG) Pt to tolerate gardening with no increased pain for three hours LTG Duration 08/19/19 Assessment Summary Assessment Pt did well today, tolerated all treatment. Balance continues to improve. Physical Therapy Plan Frequency and Duration Frequency of Treatment 1x/Week Duration of Treatment 3 months Plan of Care Start Date 05/21/19 Plan of Care End Date 08/19/19 Therapeutic Interventions Therapeutic Interventions Aquatic Therapy,Home Exercise Program,Joint Mobilizations, Manual Therapy,Neuromuscular Re-education,Self-Care/Home Management,Soft Tissue Mobilization,Therapeutic Exercises Modalities Cold Pack/Ice Massage,Electric Stimulation,Hot Packs Next Visit Focus/Plan Next Note Type Treatment Note Next Visit Plan Balance training, posture training, shoulder/scapular strengthening, STM
--- NOTE | 2019-06-18 15:17 | PT.OTN ---
Current Diagnoses Scoliosis, unspecified (06/18/19) Spondylosis without myelopathy or radiculopathy, cervical region (06/18/19) Pain in thoracic spine (06/18/19) Physical Therapy Treatment Note PT-OP-A Visit Information Start: 08/06/17 17:30 Freq: Status: Active Protocol: Document 06/18/19 14:30 DCW (Rec: 06/18/19 15:17 DCW [id number]) Out-Patient Physical Therapy Visit Information Visit Information Visit Type Treatment Note Visit Start Time 14:30 Visit Stop Time 15:25 Total Visit Minutes 55 Visit Number 88 Number of REFRIGERATION BRAZER/SOLDERER Visits 0 Evaluation Information Evaluation Date 05/28/17 PT-OP-B Current Condition Start: 10/04/17 14:21 Freq: Status: Active Protocol: Document 02/20/19 13:45 DCW (Rec: 02/20/19 14:36 DCW [id number]) Current Condition History of Current Condition History of Current Condition Please see patient's chart in Therapy Source for complete history and initial evaluation ADDENDEM 02/20/19: Pt has a new referral to work on balance and gait. Pt notes she doesn't have any recent falls , but that's because I'm good at grabbing things before I go down. Pt has been using a SPC for assistance, and has recently gotten a FWW, although she has yet to use it . Pt admits that she has not been picking my feet up very well. PT-OP-C Subjective Start: 08/06/17 17:30 Freq: Status: Active Protocol: Document 06/18/19 14:30 DCW (Rec: 06/18/19 15:17 DCW [id number]) OP-PT Subjective Patient Comments Patient Comments Pt reports her spine and ribs are very sore today. PT-OP-D Balance Start: 02/20/19 13:46 Freq: Status: Active Protocol: Document 05/21/19 14:30 DCW (Rec: 05/21/19 15:12 DCW [id number]) OP-PT Balance Assessment Sitting Balance Static Sitting Balance Ability Good Dynamic Sitting Balance Ability Good Standing Balance Static Standing Balance Ability Fair Dynamic Standing Balance Ability Fair Balance Tests Yanez Balance Test Yanez Balance Test Score 45/56 Yanez Impairment Rating 1 to 19% Impaired (Score 45-55 ) Yanez Balance Assessment Evaluation Sitting to Standing Ability Independent w/out Hands Unsupported Stance Safely- 2 minutes Sitting Unsupported, Feet on Floor Safely- 2 minutes Standing to Sitting Ability Safely, Minimal Hand Use Transfer Ability Safely, Minimal Hand Use Unsupported Stance- Eyes Closed Safely, 10 seconds Unsupported Stance- Eyes Open Independent, 1 minute Reaching Forward Standing Safely, 5 inches Pick- Up Object From Floor Independent/Safe Look Behind Shoulder - Standing Shifts Weight Unilateral Turning 360 Degrees Turns slowly, but safely Unsupported Stance, Alternating Feet on 4 Steps w/Supervision Stair Unsupported Tandem Stance Small Step- 30 seconds Unilateral Leg Stance Lifts Leg/Unable to Hold Total Score Yanez Total Score (out of 56 points) 45 Yanez Impairment Rating 1 to 19% Impaired (Score 45-55 ) Mensah Fall Scale Copyright Permission PT-OP-E Functional Tests Start: 02/20/19 13:46 Freq: Status: Active Protocol: Document 05/21/19 14:30 DCW (Rec: 05/21/19 15:12 DCW [id number]) Functional Tests 2 Minute Walk Test Distance 274 Device Used none Comments 2.28 ft/sec Dynamic Gait Index (DGI) Score 18/24 DGI Impairment Rating 20 to <40% Impaired (Score 15- 19) PT-OP-F Manual Assessment Start: 10/04/17 14:21 Freq: Status: Active Protocol: Document 05/21/19 14:30 DCW (Rec: 05/21/19 15:12 DCW [id number]) Manual Assessments Soft Tissue Assessment Soft Tissue Mobility Assessment Moderate tone in Bilateral thoracic and lumbar paraspinals, piriformis, iliopsoas, and quadratus lumborum. Mild tone in bilateral hamstrings and adductor vinod PT-OP-J Posture/Palpation/Skin Start: 10/04/17 14:21 Freq: Status: Active Protocol: Document 05/21/19 14:30 DCW (Rec: 05/21/19 15:12 DCW [id number]) Posture Evaluation Position Standing Head/C-Spine Posture Forward Head T-Spine Posture Flexible Scoliosis on (L), Increased Kyphosis L-Spine Posture Flexible Scoliosis on (R) Pelvis Posture (L) Iliac Crest Superior Hip Posture (L) Flexed,(R) Flexed Comments Posture Comments Pt's jorge with cues to stand as tall as possible: 5'0.75 / c 0.75 heel PT-OP-K Range of Motion Start: 10/04/17 14:21 Freq: Status: Active Protocol: Document 05/21/19 14:30 DCW (Rec: 05/21/19 15:12 DCW [id number]) Lumbar Spine Range of Motion Lumbar Spine Active Degrees Testing Position Standing Comments Max extension, pt is forward flexed 3? at her thoracic spine Shoulder Goniometric Range of Motion Shoulder Left Active Shoulder ROM WFL No Testing Position Sitting Flexion 162 Abduction 151 External Rotation at 0 degrees Abduction 59 Right Active Shoulder ROM WFL No Testing Position Sitting Flexion 162 Abduction 122 External Rotation at 0 degrees Abduction 60 PT-OP-M Strength Start: 10/04/17 14:21 Freq: Status: Active Protocol: Document 12/18/18 13:45 DCW (Rec: 12/18/18 14:23 DCW [id number]) Shoulder Strength Shoulder Manual Muscle Testing Right Flexion 4 Good Abduction (C5) 4+ Good+ External Rotation 4+ Good+ Internal Rotation 5 Normal Left Flexion 4 Good Abduction (C5) 4+ Good+ External Rotation 4+ Good+ Internal Rotation 5 Normal PT-OP-Q Treatments Start: 08/06/17 17:30 Freq: Status: Active Protocol: Document 06/18/19 14:30 DCW (Rec: 06/18/19 15:17 DCW [id number]) Cardio Equipment Upper Body Ergometer (UBE) Duration (Minutes) 5 RPM 60 Seat Position 12 Height 3 Therapeutic Exercises Supine Exercises 1 Supine Exercise Name Supine on Towel roll at T10-12 Side bilateral Comments increase thoracolumbar extension Standing Exercises Rows Standing Exercise Name Rows Side bilateral Resistance Lv 3 Equipment Used T-band Shoulder Extension Standing Exercise Name Extension Side bilateral Resistance Lv 3 Equipment Used T-band Manual Therapy Treatment Soft Tissue Mobilization 4 Body Location Piriformis Mobilization Type Strumming,Sustained Pressure, Trigger Point Release Intensity/Depth Deep Body Position Sidelying 3 Body Location Quadratus Lumborum Mobilization Type Myofascial Release,Strumming, Sustained Pressure Intensity/Depth Moderate Body Position Sidelying 2 Body Location Glute Med Mobilization Type Strumming,Sustained Pressure Intensity/Depth Moderate Body Position Sidelying 1 Body Location Lumbar Erector Spinae Mobilization Type Myofascial Release,Sustained Pressure Intensity/Depth Moderate Body Position Sidelying Joint Mobilizations 1 Joint Thoracic Spine Direction P->A Grade III Body Position Sidelying Manual Traction Lumbar Details Hip/Iliac crest depression Body Position Sidelying Comments MWM PT-OP-R Modalities Start: 08/06/17 17:30 Freq: Status: Active Protocol: Document 06/18/19 14:30 DCW (Rec: 06/18/19 15:17 DCW [id number]) Electric Stimulation Electric Stimulation Interferential Current (IFC) Body Location Lumbar Spine Duration (Minutes) 15 Patient Position Sitting Combined With Heat/Cold Hot Pack PT-OP-T Assessment and Plan Start: 08/06/17 17:30 Freq: Status: Active Protocol: Document 06/18/19 14:30 DCW (Rec: 06/18/19 15:17 DCW [id number]) Physical Therapy Assessment Impairments Impairments Activity Tolerance,Balance, Functional Activities, Functional Mobility,Gait,Pain, Posture,ROM,Soft Tissue Mobility,Strength,Tone Goals Seven Impairment Pt displays increased falls risk Short Term Goal (STG) Pt to score a 47/56 on the Yanez Balance Scale to demonstrate a decreased falls risk STG Duration 06/19/19 - Improving 45/56 Fpc Goal (LTG) Pt to score a 18/24 on the DGI - MET New Goal: LTG Duration 08/19/19 Six Impairment Difficulty of getting in the car Fpc Goal (LTG) Patient will get in to the car with proper mechanics without difficulty or low back pain LTG Duration Met Five Impairment Difficulty of lifting laundry from floor to shoulder level Air Twist Operator Goal (LTG) Patient will learn good lifting mechanics to prevent further low back pain. LTG Duration 08/19/19 Four Impairment Palpable muscle tone Fpc Goal (LTG) Pt muscle tone grossly to mild levels of tone LTG Duration 08/19/19 Three Impairment Thoracic Spine ROM Short Term Goal (STG) Thoracic spine to lacking 10 degrees from neutral at full extension STG Duration Met Air Twist Operator Goal (LTG) Thoracic spine to neutral at full extension LTG Duration 08/19/19 Two Impairment Pain [employer] Twist Operator Goal (LTG) Pt to report decreased pain to a max of 4/10 LTG Duration 08/19/19 One Impairment Activity tolerance Fpc Goal (LTG) Pt to tolerate gardening with no increased pain for three hours LTG Duration 08/19/19 Assessment Summary Assessment Pt displayed decreased posture and increased paraspinal tone today. Was standing a little better following STM. Physical Therapy Plan Frequency and Duration Frequency of Treatment 1x/Week Duration of Treatment 3 months Plan of Care Start Date 05/21/19 Plan of Care End Date 08/19/19 Therapeutic Interventions Therapeutic Interventions Aquatic Therapy,Home Exercise Program,Joint Mobilizations, Manual Therapy,Neuromuscular Re-education,Self-Care/Home Management,Soft Tissue Mobilization,Therapeutic Exercises Modalities Cold Pack/Ice Massage,Electric Stimulation,Hot Packs Hold Physical Therapy Reason For Hold Hold for at least the next two weeks due to pt being in a high risk category for Covid- 19 Next Visit Focus/Plan Next Note Type Treatment Note Next Visit Plan Balance training, posture training, shoulder/scapular strengthening, STM
--- NOTE | 2019-07-29 12:55 | PT-OP ANOTE ---
Spoke with patient over the phone about return to therapy as the clinic slowly opens back up following CDC recommendations. Pt is interested about scheduling further appointments.
--- NOTE | 2019-08-13 14:35 | PT.OTN ---
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) Pain in thoracic spine (08/13/19) Physical Therapy Treatment Note PT-OP-A Visit Information Start: 08/06/17 17:30 Freq: Status: Active Protocol: Document 08/13/19 13:40 DCW (Rec: 08/13/19 14:35 DCW [id number]) Out-Patient Physical Therapy Visit Information Visit Information Visit Type Progress Note Visit Start Time 13:40 Visit Stop Time 14:40 Total Visit Minutes 60 Visit Number 89 Number of CREDIT OFFICE MANAGER Visits 0 Evaluation Information Evaluation Date 05/28/17 PT-OP-B Current Condition Start: 10/04/17 14:21 Freq: Status: Active Protocol: Document 02/20/19 13:45 DCW (Rec: 02/20/19 14:36 DCW [id number]) Current Condition History of Current Condition History of Current Condition Please see patient's chart in Therapy Source for complete history and initial evaluation ADDENDEM 02/20/19: Pt has a new referral to work on balance and gait. Pt notes she doesn't have any recent falls , but that's because I'm good at grabbing things before I go down. Pt has been using a SPC for assistance, and has recently gotten a FWW, although she has yet to use it . Pt admits that she has not been picking my feet up very well. PT-OP-C Subjective Start: 08/06/17 17:30 Freq: Status: Active Protocol: Document 08/13/19 13:40 DCW (Rec: 08/13/19 14:35 DCW [id number]) OP-PT Subjective Patient Comments Patient Comments Pt reports she has been struggling with her back and hip pain, as well as her balance, without regular therapy. PT-OP-D Balance Start: 02/20/19 13:46 Freq: Status: Active Protocol: Document 05/21/19 14:30 DCW (Rec: 05/21/19 15:12 DCW [id number]) OP-PT Balance Assessment Sitting Balance Static Sitting Balance Ability Good Dynamic Sitting Balance Ability Good Standing Balance Static Standing Balance Ability Fair Dynamic Standing Balance Ability Fair Balance Tests Yanez Balance Test Yanez Balance Test Score 45/56 Yanez Impairment Rating 1 to 19% Impaired (Score 45-55 ) Yanez Balance Assessment Evaluation Sitting to Standing Ability Independent w/out Hands Unsupported Stance Safely- 2 minutes Sitting Unsupported, Feet on Floor Safely- 2 minutes Standing to Sitting Ability Safely, Minimal Hand Use Transfer Ability Safely, Minimal Hand Use Unsupported Stance- Eyes Closed Safely, 10 seconds Unsupported Stance- Eyes Open Independent, 1 minute Reaching Forward Standing Safely, 5 inches Pick- Up Object From Floor Independent/Safe Look Behind Shoulder - Standing Shifts Weight Unilateral Turning 360 Degrees Turns slowly, but safely Unsupported Stance, Alternating Feet on 4 Steps w/Supervision Stair Unsupported Tandem Stance Small Step- 30 seconds Unilateral Leg Stance Lifts Leg/Unable to Hold Total Score Yanez Total Score (out of 56 points) 45 Yanez Impairment Rating 1 to 19% Impaired (Score 45-55 ) Mensah Fall Scale Copyright Permission PT-OP-E Functional Tests Start: 02/20/19 13:46 Freq: Status: Active Protocol: Document 08/13/19 13:40 DCW (Rec: 08/13/19 14:02 DCW [id number]) Functional Tests 2 Minute Walk Test Distance 237 Device Used SPC Comments 1.98 ft/sec Dynamic Gait Index (DGI) Score 16/24 DGI Impairment Rating 20 to <40% Impaired (Score 15- 19) PT-OP-F Manual Assessment Start: 10/04/17 14:21 Freq: Status: Active Protocol: Document 05/21/19 14:30 DCW (Rec: 05/21/19 15:12 DCW [id number]) Manual Assessments Soft Tissue Assessment Soft Tissue Mobility Assessment Moderate tone in Bilateral thoracic and lumbar paraspinals, piriformis, iliopsoas, and quadratus lumborum. Mild tone in bilateral hamstrings and adductor vinod PT-OP-J Posture/Palpation/Skin Start: 10/04/17 14:21 Freq: Status: Active Protocol: Document 08/13/19 13:40 DCW (Rec: 08/13/19 14:02 DCW [id number]) Posture Evaluation Comments Posture Comments Pt's jorge with cues to stand as tall as possible: 5' 1/4 / c 3/4 heel PT-OP-K Range of Motion Start: 10/04/17 14:21 Freq: Status: Active Protocol: Document 08/13/19 13:40 DCW (Rec: 08/13/19 14:02 DCW [id number]) Lumbar Spine Range of Motion Lumbar Spine Active Degrees Testing Position Standing Comments Max extension, pt is forward flexed 5? at her thoracic spine Shoulder Goniometric Range of Motion Shoulder Left Active Shoulder ROM WFL No Testing Position Sitting Flexion 157 Abduction 148 External Rotation at 0 degrees Abduction 60 Right Active Shoulder ROM WFL No Testing Position Sitting Flexion 135 Abduction 124 External Rotation at 0 degrees Abduction 60 PT-OP-M Strength Start: 10/04/17 14:21 Freq: Status: Active Protocol: Document 12/18/18 13:45 DCW (Rec: 12/18/18 14:23 DCW [id number]) Shoulder Strength Shoulder Manual Muscle Testing Right Flexion 4 Good Abduction (C5) 4+ Good+ External Rotation 4+ Good+ Internal Rotation 5 Normal Left Flexion 4 Good Abduction (C5) 4+ Good+ External Rotation 4+ Good+ Internal Rotation 5 Normal PT-OP-Q Treatments Start: 08/06/17 17:30 Freq: Status: Active Protocol: Document 08/13/19 13:40 DCW (Rec: 08/13/19 14:35 DCW [id number]) Gym Equipment Shuttle Balance Red Details Eyes open/closed, Staggered Stance Manual Therapy Treatment Soft Tissue Mobilization 4 Body Location Piriformis Mobilization Type Strumming,Sustained Pressure, Trigger Point Release Intensity/Depth Deep Body Position Sidelying 3 Body Location Quadratus Lumborum Mobilization Type Myofascial Release,Strumming, Sustained Pressure Intensity/Depth Moderate Body Position Sidelying 2 Body Location Glute Med Mobilization Type Strumming,Sustained Pressure Intensity/Depth Moderate Body Position Sidelying 1 Body Location Lumbar Erector Spinae Mobilization Type Myofascial Release,Sustained Pressure Intensity/Depth Moderate Body Position Sidelying Joint Mobilizations 1 Joint Thoracic Spine Direction P->A Grade III Body Position Sidelying Manual Traction Lumbar Details Hip/Iliac crest depression Body Position Sidelying Comments MWM Neuro Re-Education Treatment Other Activities Testing Details 2 MWT, DGI PT-OP-R Modalities Start: 08/06/17 17:30 Freq: Status: Active Protocol: Document 08/13/19 13:40 DCW (Rec: 08/13/19 14:35 DCW [id number]) Electric Stimulation Electric Stimulation Interferential Current (IFC) Body Location Lumbar Spine Duration (Minutes) 15 Patient Position Sitting Combined With Heat/Cold Hot Pack PT-OP-T Assessment and Plan Start: 08/06/17 17:30 Freq: Status: Active Protocol: Document 08/13/19 13:40 DCW (Rec: 08/13/19 14:35 DCW [id number]) Physical Therapy Assessment Impairments Impairments Activity Tolerance,Balance, Functional Activities, Functional Mobility,Gait,Pain, Posture,ROM,Soft Tissue Mobility,Strength,Tone Goals Seven Impairment Pt displays increased falls risk Short Term Goal (STG) Pt to score a 47/56 on the Yanez Balance Scale to demonstrate a decreased falls risk STG Duration 09/13/19 - Improving 45/56 Shelter Goal (LTG) Pt to score a 18/24 on the DGI - MET New Goal: LTG Duration 10/13/19 - Declined to Six Impairment Difficulty of getting in the car Project Controls Specialist Goal (LTG) Patient will get in to the car with proper mechanics without difficulty or low back pain LTG Duration Met Five Impairment Difficulty of lifting laundry from floor to shoulder level Shelter Goal (LTG) Patient will learn good lifting mechanics to prevent further low back pain. LTG Duration 10/13/19 Four Impairment Palpable muscle tone Shelter Goal (LTG) Pt muscle tone grossly to mild levels of tone 08/13/1956-Brc-Bonsvm tone LTG Duration 10/13/19 Three Impairment Thoracic Spine ROM Short Term Goal (STG) Thoracic spine to lacking 10 degrees from neutral at full extension STG Duration Met Project Controls Specialist Goal (LTG) Thoracic spine to neutral at full extension LTG Duration 10/13/19 - Decline to lacking 5 degrees Two Impairment Pain Shelter Goal (LTG) Pt to report decreased pain to a max of 4/10 LTG Duration 10/13/19 One Impairment Activity tolerance Shelter Goal (LTG) Pt to tolerate gardening with no increased pain for three hours 08/13/19 - pt tolerating two hours of gardening with increased pain after 30 minutes LTG Duration 10/13/19 Assessment Summary Assessment Pt overall displays decline in posture, shoulder ROM, and balance after an 8 week absence following clinic closure due to Covid-19. Pt should benefit from continued therapy focusing on shoulder strength and mobility, balance training, posture training, body mechanics, and manual therapy to decrease muscle tone. Physical Therapy Plan Frequency and Duration Frequency of Treatment 1x/Week Duration of Treatment 3 months Plan of Care Start Date 08/13/19 Plan of Care End Date 11/11/19 Therapeutic Interventions Therapeutic Interventions Aquatic Therapy,Home Exercise Program,Joint Mobilizations, Manual Therapy,Neuromuscular Re-education,Self-Care/Home Management,Soft Tissue Mobilization,Therapeutic Exercises Modalities Cold Pack/Ice Massage,Electric Stimulation,Hot Packs Next Visit Focus/Plan Next Note Type Treatment Note Next Visit Plan Balance training, posture training, shoulder/scapular strengthening, STM
--- NOTE | 2019-08-13 14:36 | PT.OPPOC ---
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 [place], [facility] Email: [email or web address] Plan Of Care PT-OP-T Assessment and Plan Start: 08/06/17 17:30 Freq: Status: Active Protocol: Document 08/13/19 13:40 DCW (Rec: 08/13/19 14:35 DCW [id number]) Physical Therapy Assessment Impairments Impairments Activity Tolerance,Balance, Functional Activities, Functional Mobility,Gait,Pain, Posture,ROM,Soft Tissue Mobility,Strength,Tone Goals Seven Impairment Pt displays increased falls risk Short Term Goal (STG) Pt to score a 47/56 on the Yanez Balance Scale to demonstrate a decreased falls risk STG Duration 09/13/19 - Improving 45/56 Golf Sales Manager Goal (LTG) Pt to score a 18/24 on the DGI - MET New Goal: LTG Duration 10/13/19 - Declined to Six Impairment Difficulty of getting in the car Golf Sales Manager Goal (LTG) Patient will get in to the car with proper mechanics without difficulty or low back pain LTG Duration Met Five Impairment Difficulty of lifting laundry from floor to shoulder level Golf Sales Manager Goal (LTG) Patient will learn good lifting mechanics to prevent further low back pain. LTG Duration 10/13/19 Four Impairment Palpable muscle tone Golf Sales Manager Goal (LTG) Pt muscle tone grossly to mild levels of tone 08/13/1983-Drp-Smtmzq tone LTG Duration 10/13/19 Three Impairment Thoracic Spine ROM Short Term Goal (STG) Thoracic spine to lacking 10 degrees from neutral at full extension STG Duration Met Mcfp Goal (LTG) Thoracic spine to neutral at full extension LTG Duration 10/13/19 - Decline to lacking 5 degrees Two Impairment Pain Golf Sales Manager Goal (LTG) Pt to report decreased pain to a max of 4/10 LTG Duration 10/13/19 One Impairment Activity tolerance Mcfp Goal (LTG) Pt to tolerate gardening with no increased pain for three hours 08/13/19 - pt tolerating two hours of gardening with increased pain after 30 minutes LTG Duration 10/13/19 Assessment Summary Assessment Pt overall displays decline in posture, shoulder ROM, and balance after an 8 week abscence following clinic closure due to Covid-19. Pt should benefit from continued therapy focusing on shoulder strength and mobility, balance training, posture training, body mechanics, and manual therapy to decrease muscle tone. Physical Therapy Plan Frequency and Duration Frequency of Treatment 1x/Week Duration of Treatment 3 months Plan of Care Start Date 08/13/19 Plan of Care End Date 11/11/19 Therapeutic Interventions Therapeutic Interventions Aquatic Therapy,Home Exercise Program,Joint Mobilizations, Manual Therapy,Neuromuscular Re-education,Self-Care/Home Management,Soft Tissue Mobilization,Therapeutic Exercises Modalities Cold Pack/Ice Massage,Electric Stimulation,Hot Packs Next Visit Focus/Plan Next Note Type Treatment Note Next Visit Plan Balance training, posture training, shoulder/scapular strengthening, STM Plan of Care Dates Plan of Care Start Date 08/13/19 Plan of Care End Date 11/11/19 Electronically Signed by: Wallace Wilson, PT 08/13/19 [id number] Please Sign and Return: I have reviewed this Plan of Care and certify that the skilled therapy services above are required to meet the patient?s needs. Physician Signature Date Printed Name and Credentials Clinical Instructor Signature Printed Name and Credentials
--- NOTE | 2019-08-20 15:17 | PT.OTN ---
Current Diagnoses Scoliosis, unspecified (08/20/19) Spondylosis without myelopathy or radiculopathy, cervical region (08/20/19) Pain in thoracic spine (08/20/19) Physical Therapy Treatment Note PT-OP-A Visit Information Start: 08/06/17 17:30 Freq: Status: Active Protocol: Document 08/20/19 14:30 DCW (Rec: 08/20/19 15:16 DCW [id number]) Out-Patient Physical Therapy Visit Information Visit Information Visit Type Treatment Note Visit Start Time 14:30 Visit Stop Time 15:25 Total Visit Minutes 55 Visit Number 90 Number of CREATIVE STRATEGIST Visits 0 Evaluation Information Evaluation Date 05/28/17 PT-OP-B Current Condition Start: 10/04/17 14:21 Freq: Status: Active Protocol: Document 02/20/19 13:45 DCW (Rec: 02/20/19 14:36 DCW [id number]) Current Condition History of Current Condition History of Current Condition Please see patient's chart in Therapy Source for complete history and initial evaluation ADDENDEM 02/20/19: Pt has a new referral to work on balance and gait. Pt notes she doesn't have any recent falls , but that's because I'm good at grabbing things before I go down. Pt has been using a SPC for assistance, and has recently gotten a FWW, although she has yet to use it . Pt admits that she has not been picking my feet up very well. PT-OP-C Subjective Start: 08/06/17 17:30 Freq: Status: Active Protocol: Document 08/20/19 14:30 DCW (Rec: 08/20/19 15:16 DCW [id number]) OP-PT Subjective Patient Comments Patient Comments Pt repots she fell into a rock pile on Sunday, has some scrapes on her right elbow and right knee, but is otherwise doing okay. PT-OP-D Balance Start: 02/20/19 13:46 Freq: Status: Active Protocol: Document 05/21/19 14:30 DCW (Rec: 05/21/19 15:12 DCW [id number]) OP-PT Balance Assessment Sitting Balance Static Sitting Balance Ability Good Dynamic Sitting Balance Ability Good Standing Balance Static Standing Balance Ability Fair Dynamic Standing Balance Ability Fair Balance Tests Yanez Balance Test Yanez Balance Test Score 45/56 Yanez Impairment Rating 1 to 19% Impaired (Score 45-55 ) Yanez Balance Assessment Evaluation Sitting to Standing Ability Independent w/out Hands Unsupported Stance Safely- 2 minutes Sitting Unsupported, Feet on Floor Safely- 2 minutes Standing to Sitting Ability Safely, Minimal Hand Use Transfer Ability Safely, Minimal Hand Use Unsupported Stance- Eyes Closed Safely, 10 seconds Unsupported Stance- Eyes Open Independent, 1 minute Reaching Forward Standing Safely, 5 inches Pick- Up Object From Floor Independent/Safe Look Behind Shoulder - Standing Shifts Weight Unilateral Turning 360 Degrees Turns slowly, but safely Unsupported Stance, Alternating Feet on 4 Steps w/Supervision Stair Unsupported Tandem Stance Small Step- 30 seconds Unilateral Leg Stance Lifts Leg/Unable to Hold Total Score Yanez Total Score (out of 56 points) 45 Yanez Impairment Rating 1 to 19% Impaired (Score 45-55 ) Mensah Fall Scale Copyright Permission PT-OP-E Functional Tests Start: 02/20/19 13:46 Freq: Status: Active Protocol: Document 08/13/19 13:40 DCW (Rec: 08/13/19 14:02 DCW [id number]) Functional Tests 2 Minute Walk Test Distance 237 Device Used SPC Comments 1.98 ft/sec Dynamic Gait Index (DGI) Score 16/24 DGI Impairment Rating 20 to <40% Impaired (Score 15- 19) PT-OP-F Manual Assessment Start: 10/04/17 14:21 Freq: Status: Active Protocol: Document 05/21/19 14:30 DCW (Rec: 05/21/19 15:12 DCW [id number]) Manual Assessments Soft Tissue Assessment Soft Tissue Mobility Assessment Moderate tone in Bilateral thoracic and lumbar paraspinals, piriformis, iliopsoas, and quadratus lumborum. Mild tone in bilateral hamstrings and adductor vinod PT-OP-J Posture/Palpation/Skin Start: 10/04/17 14:21 Freq: Status: Active Protocol: Document 08/13/19 13:40 DCW (Rec: 08/13/19 14:02 DCW [id number]) Posture Evaluation Comments Posture Comments Pt's jorge with cues to stand as tall as possible: 5' 1/4 / c 3/4 heel PT-OP-K Range of Motion Start: 10/04/17 14:21 Freq: Status: Active Protocol: Document 08/13/19 13:40 DCW (Rec: 08/13/19 14:02 DCW [id number]) Lumbar Spine Range of Motion Lumbar Spine Active Degrees Testing Position Standing Comments Max extension, pt is forward flexed 5? at her thoracic spine Shoulder Goniometric Range of Motion Shoulder Left Active Shoulder ROM WFL No Testing Position Sitting Flexion 157 Abduction 148 External Rotation at 0 degrees Abduction 60 Right Active Shoulder ROM WFL No Testing Position Sitting Flexion 135 Abduction 124 External Rotation at 0 degrees Abduction 60 PT-OP-M Strength Start: 10/04/17 14:21 Freq: Status: Active Protocol: Document 12/18/18 13:45 DCW (Rec: 12/18/18 14:23 DCW [id number]) Shoulder Strength Shoulder Manual Muscle Testing Right Flexion 4 Good Abduction (C5) 4+ Good+ External Rotation 4+ Good+ Internal Rotation 5 Normal Left Flexion 4 Good Abduction (C5) 4+ Good+ External Rotation 4+ Good+ Internal Rotation 5 Normal PT-OP-Q Treatments Start: 08/06/17 17:30 Freq: Status: Active Protocol: Document 08/20/19 14:30 DCW (Rec: 08/20/19 15:16 DCW [id number]) Cardio Equipment Upper Body Ergometer (UBE) Duration (Minutes) 5 RPM 60 Seat Position 12 Height 3 Therapeutic Exercises Supine Exercises 1 Supine Exercise Name Supine on Towel roll at T10-12 Side bilateral Comments increase thoracolumbar extension Standing Exercises Rows Standing Exercise Name Rows Side bilateral Resistance Lv 3 Equipment Used T-band Shoulder Extension Standing Exercise Name Extension Side bilateral Resistance Lv 3 Equipment Used T-band Manual Therapy Treatment Soft Tissue Mobilization 4 Body Location Piriformis Mobilization Type Strumming,Sustained Pressure, Trigger Point Release Intensity/Depth Deep Body Position Sidelying 3 Body Location Quadratus Lumborum Mobilization Type Myofascial Release,Strumming, Sustained Pressure Intensity/Depth Moderate Body Position Sidelying 2 Body Location Glute Med Mobilization Type Strumming,Sustained Pressure Intensity/Depth Moderate Body Position Sidelying 1 Body Location Lumbar Erector Spinae Mobilization Type Myofascial Release,Sustained Pressure Intensity/Depth Moderate Body Position Sidelying Joint Mobilizations 1 Joint Thoracic Spine Direction P->A Grade III Body Position Sidelying Manual Traction Lumbar Details Hip/Iliac crest depression Body Position Sidelying Comments MWM PT-OP-R Modalities Start: 08/06/17 17:30 Freq: Status: Active Protocol: Document 08/20/19 14:30 DCW (Rec: 08/20/19 15:16 DCW [id number]) Electric Stimulation Electric Stimulation Interferential Current (IFC) Body Location Lumbar Spine Duration (Minutes) 15 Patient Position Sitting Combined With Heat/Cold Hot Pack PT-OP-T Assessment and Plan Start: 08/06/17 17:30 Freq: Status: Active Protocol: Document 08/20/19 14:30 DCW (Rec: 08/20/19 15:16 DCW [id number]) Physical Therapy Assessment Impairments Impairments Activity Tolerance,Balance, Functional Activities, Functional Mobility,Gait,Pain, Posture,ROM,Soft Tissue Mobility,Strength,Tone Goals Seven Impairment Pt displays increased falls risk Short Term Goal (STG) Pt to score a 47/56 on the Yanez Balance Scale to demonstrate a decreased falls risk STG Duration 09/13/19 - Improving 45/56 Clinical Data Manager Goal (LTG) Pt to score a 18/24 on the DGI - MET New Goal: LTG Duration 10/13/19 - Declined to Six Impairment Difficulty of getting in the car Custodial Goal (LTG) Patient will get in to the car with proper mechanics without difficulty or low back pain LTG Duration Met Five Impairment Difficulty of lifting laundry from floor to shoulder level Clinical Data Manager Goal (LTG) Patient will learn good lifting mechanics to prevent further low back pain. LTG Duration 10/13/19 Four Impairment Palpable muscle tone Clinical Data Manager Goal (LTG) Pt muscle tone grossly to mild levels of tone 08/13/1962-Etr-Imrkim tone LTG Duration 10/13/19 Three Impairment Thoracic Spine ROM Short Term Goal (STG) Thoracic spine to lacking 10 degrees from neutral at full extension STG Duration Met Clinical Data Manager Goal (LTG) Thoracic spine to neutral at full extension LTG Duration 10/13/19 - Decline to lacking 5 degrees Two Impairment Pain Custodial Goal (LTG) Pt to report decreased pain to a max of 4/10 LTG Duration 10/13/19 One Impairment Activity tolerance Clinical Data Manager Goal (LTG) Pt to tolerate gardening with no increased pain for three hours 08/13/19 - pt tolerating two hours of gardening with increased pain after 30 minutes LTG Duration 10/13/19 Assessment Summary Assessment Pt showing no decreased function following her fall earlier this week, no complaints of increased pain or stiffness. Pt performed well on her Shuttle balance exercises today. Physical Therapy Plan Frequency and Duration Frequency of Treatment 1x/Week Duration of Treatment 3 months Plan of Care Start Date 08/13/19 Plan of Care End Date 11/11/19 Therapeutic Interventions Therapeutic Interventions Aquatic Therapy,Home Exercise Program,Joint Mobilizations, Manual Therapy,Neuromuscular Re-education,Self-Care/Home Management,Soft Tissue Mobilization,Therapeutic Exercises Modalities Cold Pack/Ice Massage,Electric Stimulation,Hot Packs Next Visit Focus/Plan Next Note Type Treatment Note Next Visit Plan Balance training, posture training, shoulder/scapular strengthening, STM
--- NOTE | 2019-08-27 14:29 | PT.OTN ---
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) Pain in thoracic spine (08/27/19) Physical Therapy Treatment Note PT-OP-A Visit Information Start: 08/06/17 17:30 Freq: Status: Active Protocol: Document 08/27/19 13:45 DCW (Rec: 08/27/19 14:29 DCW [id number]) Out-Patient Physical Therapy Visit Information Visit Information Visit Type Treatment Note Visit Start Time 13:45 Visit Stop Time 14:40 Total Visit Minutes 55 Visit Number 91 Number of RESERVOIR ENGINEERING MANAGER Visits 0 Evaluation Information Evaluation Date 05/28/17 PT-OP-B Current Condition Start: 10/04/17 14:21 Freq: Status: Active Protocol: Document 02/20/19 13:45 DCW (Rec: 02/20/19 14:36 DCW [id number]) Current Condition History of Current Condition History of Current Condition Please see patient's chart in Therapy Source for complete history and initial evaluation ADDENDEM 02/20/19: Pt has a new referral to work on balance and gait. Pt notes she doesn't have any recent falls , but that's because I'm good at grabbing things before I go down. Pt has been using a SPC for assistance, and has recently gotten a FWW, although she has yet to use it . Pt admits that she has not been picking my feet up very well. PT-OP-C Subjective Start: 08/06/17 17:30 Freq: Status: Active Protocol: Document 08/27/19 13:45 DCW (Rec: 08/27/19 14:29 DCW [id number]) OP-PT Subjective Patient Comments Patient Comments Pt reports she had a stomach virus earlier in the week, but she is now feeling much better. PT-OP-D Balance Start: 02/20/19 13:46 Freq: Status: Active Protocol: Document 05/21/19 14:30 DCW (Rec: 05/21/19 15:12 DCW [id number]) OP-PT Balance Assessment Sitting Balance Static Sitting Balance Ability Good Dynamic Sitting Balance Ability Good Standing Balance Static Standing Balance Ability Fair Dynamic Standing Balance Ability Fair Balance Tests Yanez Balance Test Yanez Balance Test Score 45/56 Yanez Impairment Rating 1 to 19% Impaired (Score 45-55 ) Yanez Balance Assessment Evaluation Sitting to Standing Ability Independent w/out Hands Unsupported Stance Safely- 2 minutes Sitting Unsupported, Feet on Floor Safely- 2 minutes Standing to Sitting Ability Safely, Minimal Hand Use Transfer Ability Safely, Minimal Hand Use Unsupported Stance- Eyes Closed Safely, 10 seconds Unsupported Stance- Eyes Open Independent, 1 minute Reaching Forward Standing Safely, 5 inches Pick- Up Object From Floor Independent/Safe Look Behind Shoulder - Standing Shifts Weight Unilateral Turning 360 Degrees Turns slowly, but safely Unsupported Stance, Alternating Feet on 4 Steps w/Supervision Stair Unsupported Tandem Stance Small Step- 30 seconds Unilateral Leg Stance Lifts Leg/Unable to Hold Total Score Yanez Total Score (out of 56 points) 45 Yanez Impairment Rating 1 to 19% Impaired (Score 45-55 ) Mensah Fall Scale Copyright Permission PT-OP-E Functional Tests Start: 02/20/19 13:46 Freq: Status: Active Protocol: Document 08/13/19 13:40 DCW (Rec: 08/13/19 14:02 DCW [id number]) Functional Tests 2 Minute Walk Test Distance 237 Device Used SPC Comments 1.98 ft/sec Dynamic Gait Index (DGI) Score 16/24 DGI Impairment Rating 20 to <40% Impaired (Score 15- 19) PT-OP-F Manual Assessment Start: 10/04/17 14:21 Freq: Status: Active Protocol: Document 05/21/19 14:30 DCW (Rec: 05/21/19 15:12 DCW [id number]) Manual Assessments Soft Tissue Assessment Soft Tissue Mobility Assessment Moderate tone in Bilateral thoracic and lumbar paraspinals, piriformis, iliopsoas, and quadratus lumborum. Mild tone in bilateral hamstrings and adductor vinod PT-OP-J Posture/Palpation/Skin Start: 10/04/17 14:21 Freq: Status: Active Protocol: Document 08/13/19 13:40 DCW (Rec: 08/13/19 14:02 DCW [id number]) Posture Evaluation Comments Posture Comments Pt's jorge with cues to stand as tall as possible: 5' 1/4 / c 3/4 heel PT-OP-K Range of Motion Start: 10/04/17 14:21 Freq: Status: Active Protocol: Document 08/13/19 13:40 DCW (Rec: 08/13/19 14:02 DCW [id number]) Lumbar Spine Range of Motion Lumbar Spine Active Degrees Testing Position Standing Comments Max extension, pt is forward flexed 5? at her thoracic spine Shoulder Goniometric Range of Motion Shoulder Left Active Shoulder ROM WFL No Testing Position Sitting Flexion 157 Abduction 148 External Rotation at 0 degrees Abduction 60 Right Active Shoulder ROM WFL No Testing Position Sitting Flexion 135 Abduction 124 External Rotation at 0 degrees Abduction 60 PT-OP-M Strength Start: 10/04/17 14:21 Freq: Status: Active Protocol: Document 12/18/18 13:45 DCW (Rec: 12/18/18 14:23 DCW [id number]) Shoulder Strength Shoulder Manual Muscle Testing Right Flexion 4 Good Abduction (C5) 4+ Good+ External Rotation 4+ Good+ Internal Rotation 5 Normal Left Flexion 4 Good Abduction (C5) 4+ Good+ External Rotation 4+ Good+ Internal Rotation 5 Normal PT-OP-Q Treatments Start: 08/06/17 17:30 Freq: Status: Active Protocol: Document 08/27/19 13:45 DCW (Rec: 08/27/19 14:29 DCW [id number]) Cardio Equipment Upper Body Ergometer (UBE) Duration (Minutes) 5 RPM 60 Seat Position 12 Height 3 Gym Equipment Shuttle Balance Red Details Eyes open/closed, Staggered Stance Therapeutic Exercises Supine Exercises 1 Supine Exercise Name Supine on Towel roll at T10-12 Side bilateral Comments increase thoracolumbar extension Manual Therapy Treatment Soft Tissue Mobilization 4 Body Location Piriformis Mobilization Type Strumming,Sustained Pressure, Trigger Point Release Intensity/Depth Deep Body Position Sidelying 3 Body Location Quadratus Lumborum Mobilization Type Myofascial Release,Strumming, Sustained Pressure Intensity/Depth Moderate Body Position Sidelying 2 Body Location Glute Med Mobilization Type Strumming,Sustained Pressure Intensity/Depth Moderate Body Position Sidelying 1 Body Location Lumbar Erector Spinae Mobilization Type Myofascial Release,Sustained Pressure Intensity/Depth Moderate Body Position Sidelying Joint Mobilizations 1 Joint Thoracic Spine Direction P->A Grade III Body Position Sidelying Manual Traction Lumbar Details Hip/Iliac crest depression Body Position Sidelying Comments MWM PT-OP-R Modalities Start: 08/06/17 17:30 Freq: Status: Active Protocol: Document 05/27/20 13:45 DCW (Rec: 08/27/19 14:29 DCW [id number]) Electric Stimulation Electric Stimulation Interferential Current (IFC) Body Location Lumbar Spine Duration (Minutes) 15 Patient Position Sitting Combined With Heat/Cold Hot Pack PT-OP-T Assessment and Plan Start: 08/06/17 17:30 Freq: Status: Active Protocol: Document 08/27/19 13:45 DCW (Rec: 08/27/19 14:29 DCW [id number]) Physical Therapy Assessment Impairments Impairments Activity Tolerance,Balance, Functional Activities, Functional Mobility,Gait,Pain, Posture,ROM,Soft Tissue Mobility,Strength,Tone Goals Seven Impairment Pt displays increased falls risk Short Term Goal (STG) Pt to score a 47/56 on the Yanez Balance Scale to demonstrate a decreased falls risk STG Duration 09/13/19 - Improving 45/56 Sample Card Maker Goal (LTG) Pt to score a 18/24 on the DGI - MET New Goal: LTG Duration 10/13/19 - Declined to Six Impairment Difficulty of getting in the car Sample Card Maker Goal (LTG) Patient will get in to the car with proper mechanics without difficulty or low back pain LTG Duration Met Five Impairment Difficulty of lifting laundry from floor to shoulder level Intermediate Goal (LTG) Patient will learn good lifting mechanics to prevent further low back pain. LTG Duration 10/13/19 Four Impairment Palpable muscle tone Sample Card Maker Goal (LTG) Pt muscle tone grossly to mild levels of tone 08/13/1934-Aon-Mhqnzn tone LTG Duration 10/13/19 Three Impairment Thoracic Spine ROM Short Term Goal (STG) Thoracic spine to lacking 10 degrees from neutral at full extension STG Duration Met Intermediate Goal (LTG) Thoracic spine to neutral at full extension LTG Duration 10/13/19 - Decline to lacking 5 degrees Two Impairment Pain Intermediate Goal (LTG) Pt to report decreased pain to a max of 4/10 LTG Duration 10/13/19 One Impairment Activity tolerance Sample Card Maker Goal (LTG) Pt to tolerate gardening with no increased pain for three hours 08/13/19 - pt tolerating two hours of gardening with increased pain after 30 minutes LTG Duration 10/13/19 Assessment Summary Assessment Pt reporting some increased soreness in her hips today, notable increased paraspinal tone. Pt tolerated manual therapy well, feeling more limber following treatment. Physical Therapy Plan Frequency and Duration Frequency of Treatment 1x/Week Duration of Treatment 3 months Plan of Care Start Date 08/13/19 Plan of Care End Date 11/11/19 Therapeutic Interventions Therapeutic Interventions Aquatic Therapy,Home Exercise Program,Joint Mobilizations, Manual Therapy,Neuromuscular Re-education,Self-Care/Home Management,Soft Tissue Mobilization,Therapeutic Exercises Modalities Cold Pack/Ice Massage,Electric Stimulation,Hot Packs Next Visit Focus/Plan Next Note Type Treatment Note Next Visit Plan Balance training, posture training, shoulder/scapular strengthening, STM
--- NOTE | 2019-09-03 13:47 | PT.OTN ---
Current Diagnoses Scoliosis, unspecified (09/03/19) Spondylosis without myelopathy or radiculopathy, cervical region (09/03/19) Pain in thoracic spine (09/03/19) Physical Therapy Treatment Note PT-OP-A Visit Information Start: 08/06/17 17:30 Freq: Status: Active Protocol: Document 09/03/19 13:00 DCW (Rec: 09/03/19 13:47 DCW [id number]) Out-Patient Physical Therapy Visit Information Visit Information Visit Type Treatment Note Visit Start Time 13:00 Visit Stop Time 13:55 Total Visit Minutes 55 Visit Number 92 Number of AUTOMOBILE SERVICE ADVISOR Visits 0 Evaluation Information Evaluation Date 05/28/17 PT-OP-B Current Condition Start: 10/04/17 14:21 Freq: Status: Active Protocol: Document 02/20/19 13:45 DCW (Rec: 02/20/19 14:36 DCW [id number]) Current Condition History of Current Condition History of Current Condition Please see patient's chart in Therapy Source for complete history and initial evaluation ADDENDEM 02/20/19: Pt has a new referral to work on balance and gait. Pt notes she doesn't have any recent falls , but that's because I'm good at grabbing things before I go down. Pt has been using a SPC for assistance, and has recently gotten a FWW, although she has yet to use it . Pt admits that she has not been picking my feet up very well. PT-OP-C Subjective Start: 08/06/17 17:30 Freq: Status: Active Protocol: Document 09/03/19 13:00 DCW (Rec: 09/03/19 13:47 DCW [id number]) OP-PT Subjective Patient Comments Patient Comments Pt doing well today, but had a rough time with her stress test yesterday. PT-OP-D Balance Start: 02/20/19 13:46 Freq: Status: Active Protocol: Document 05/21/19 14:30 DCW (Rec: 05/21/19 15:12 DCW [id number]) OP-PT Balance Assessment Sitting Balance Static Sitting Balance Ability Good Dynamic Sitting Balance Ability Good Standing Balance Static Standing Balance Ability Fair Dynamic Standing Balance Ability Fair Balance Tests Yanez Balance Test Yanez Balance Test Score 45/56 Yanez Impairment Rating 1 to 19% Impaired (Score 45-55 ) Yanez Balance Assessment Evaluation Sitting to Standing Ability Independent w/out Hands Unsupported Stance Safely- 2 minutes Sitting Unsupported, Feet on Floor Safely- 2 minutes Standing to Sitting Ability Safely, Minimal Hand Use Transfer Ability Safely, Minimal Hand Use Unsupported Stance- Eyes Closed Safely, 10 seconds Unsupported Stance- Eyes Open Independent, 1 minute Reaching Forward Standing Safely, 5 inches Pick- Up Object From Floor Independent/Safe Look Behind Shoulder - Standing Shifts Weight Unilateral Turning 360 Degrees Turns slowly, but safely Unsupported Stance, Alternating Feet on 4 Steps w/Supervision Stair Unsupported Tandem Stance Small Step- 30 seconds Unilateral Leg Stance Lifts Leg/Unable to Hold Total Score Yanez Total Score (out of 56 points) 45 Yanez Impairment Rating 1 to 19% Impaired (Score 45-55 ) Mensah Fall Scale Copyright Permission PT-OP-E Functional Tests Start: 02/20/19 13:46 Freq: Status: Active Protocol: Document 08/13/19 13:40 DCW (Rec: 08/13/19 14:02 DCW [id number]) Functional Tests 2 Minute Walk Test Distance 237 Device Used SPC Comments 1.98 ft/sec Dynamic Gait Index (DGI) Score 16/24 DGI Impairment Rating 20 to <40% Impaired (Score 15- 19) PT-OP-F Manual Assessment Start: 10/04/17 14:21 Freq: Status: Active Protocol: Document 05/21/19 14:30 DCW (Rec: 05/21/19 15:12 DCW [id number]) Manual Assessments Soft Tissue Assessment Soft Tissue Mobility Assessment Moderate tone in Bilateral thoracic and lumbar paraspinals, piriformis, iliopsoas, and quadratus lumborum. Mild tone in bilateral hamstrings and adductor vinod PT-OP-J Posture/Palpation/Skin Start: 10/04/17 14:21 Freq: Status: Active Protocol: Document 08/13/19 13:40 DCW (Rec: 08/13/19 14:02 DCW [id number]) Posture Evaluation Comments Posture Comments Pt's jorge with cues to stand as tall as possible: 5' 1/4 / c 3/4 heel PT-OP-K Range of Motion Start: 10/04/17 14:21 Freq: Status: Active Protocol: Document 08/13/19 13:40 DCW (Rec: 08/13/19 14:02 DCW [id number]) Lumbar Spine Range of Motion Lumbar Spine Active Degrees Testing Position Standing Comments Max extension, pt is forward flexed 5? at her thoracic spine Shoulder Goniometric Range of Motion Shoulder Left Active Shoulder ROM WFL No Testing Position Sitting Flexion 157 Abduction 148 External Rotation at 0 degrees Abduction 60 Right Active Shoulder ROM WFL No Testing Position Sitting Flexion 135 Abduction 124 External Rotation at 0 degrees Abduction 60 PT-OP-M Strength Start: 10/04/17 14:21 Freq: Status: Active Protocol: Document 12/18/18 13:45 DCW (Rec: 12/18/18 14:23 DCW [id number]) Shoulder Strength Shoulder Manual Muscle Testing Right Flexion 4 Good Abduction (C5) 4+ Good+ External Rotation 4+ Good+ Internal Rotation 5 Normal Left Flexion 4 Good Abduction (C5) 4+ Good+ External Rotation 4+ Good+ Internal Rotation 5 Normal PT-OP-Q Treatments Start: 08/06/17 17:30 Freq: Status: Active Protocol: Document 09/03/19 13:00 DCW (Rec: 09/03/19 13:47 DCW [id number]) Cardio Equipment Upper Body Ergometer (UBE) Duration (Minutes) 5 RPM 60 Seat Position 12 Height 3 Gym Equipment Shuttle Balance Red Details Eyes open/closed, Staggered Stance Therapeutic Exercises Supine Exercises 1 Supine Exercise Name Supine on Towel roll at T10-12 Side bilateral Comments increase thoracolumbar extension Standing Exercises Rows Standing Exercise Name Rows Side bilateral Resistance Lv 3 Equipment Used T-band Shoulder Extension Standing Exercise Name Extension Side bilateral Resistance Lv 3 Equipment Used T-band Manual Therapy Treatment Soft Tissue Mobilization 4 Body Location Piriformis Mobilization Type Strumming,Sustained Pressure, Trigger Point Release Intensity/Depth Deep Body Position Sidelying 3 Body Location Quadratus Lumborum Mobilization Type Myofascial Release,Strumming, Sustained Pressure Intensity/Depth Moderate Body Position Sidelying 2 Body Location Glute Med Mobilization Type Strumming,Sustained Pressure Intensity/Depth Moderate Body Position Sidelying 1 Body Location Lumbar Erector Spinae Mobilization Type Myofascial Release,Sustained Pressure Intensity/Depth Moderate Body Position Sidelying Joint Mobilizations 1 Joint Thoracic Spine Direction P->A Grade III Body Position Sidelying Manual Traction Lumbar Details Hip/Iliac crest depression Body Position Sidelying Comments MWM PT-OP-R Modalities Start: 08/06/17 17:30 Freq: Status: Active Protocol: Document 09/03/19 13:00 DCW (Rec: 09/03/19 13:47 DCW [id number]) Electric Stimulation Electric Stimulation Interferential Current (IFC) Body Location Lumbar Spine Duration (Minutes) 15 Patient Position Sitting Combined With Heat/Cold Hot Pack PT-OP-T Assessment and Plan Start: 08/06/17 17:30 Freq: Status: Active Protocol: Document 09/03/19 13:00 DCW (Rec: 09/03/19 13:47 DCW [id number]) Physical Therapy Assessment Impairments Impairments Activity Tolerance,Balance, Functional Activities, Functional Mobility,Gait,Pain, Posture,ROM,Soft Tissue Mobility,Strength,Tone Goals Seven Impairment Pt displays increased falls risk Short Term Goal (STG) Pt to score a 47/56 on the Yanez Balance Scale to demonstrate a decreased falls risk STG Duration 09/13/19 - Improving 45/56 Residential Goal (LTG) Pt to score a 18/24 on the DGI - MET New Goal: LTG Duration 10/13/19 - Declined to Six Impairment Difficulty of getting in the car Residential Goal (LTG) Patient will get in to the car with proper mechanics without difficulty or low back pain LTG Duration Met Five Impairment Difficulty of lifting laundry from floor to shoulder level Councilman Goal (LTG) Patient will learn good lifting mechanics to prevent further low back pain. LTG Duration 10/13/19 Four Impairment Palpable muscle tone Residential Goal (LTG) Pt muscle tone grossly to mild levels of tone 08/13/1946-Rcw-Zuocqc tone LTG Duration 10/13/19 Three Impairment Thoracic Spine ROM Short Term Goal (STG) Thoracic spine to lacking 10 degrees from neutral at full extension STG Duration Met Residential Goal (LTG) Thoracic spine to neutral at full extension LTG Duration 10/13/19 - Decline to lacking 5 degrees Two Impairment Pain Residential Goal (LTG) Pt to report decreased pain to a max of 4/10 LTG Duration 10/13/19 One Impairment Activity tolerance Councilman Goal (LTG) Pt to tolerate gardening with no increased pain for three hours 08/13/19 - pt tolerating two hours of gardening with increased pain after 30 minutes LTG Duration 10/13/19 Assessment Summary Assessment Pt presents today with increased protrusion of her lower thoracic vertebrae, notes increased pain following her time in the MRI yesterday during her stress test. Pt noted improvement in discomfort following today's therapy session. Physical Therapy Plan Frequency and Duration Frequency of Treatment 1x/Week Duration of Treatment 3 months Plan of Care Start Date 08/13/19 Plan of Care End Date 11/11/19 Therapeutic Interventions Therapeutic Interventions Aquatic Therapy,Home Exercise Program,Joint Mobilizations, Manual Therapy,Neuromuscular Re-education,Self-Care/Home Management,Soft Tissue Mobilization,Therapeutic Exercises Modalities Cold Pack/Ice Massage,Electric Stimulation,Hot Packs Next Visit Focus/Plan Next Note Type Treatment Note Next Visit Plan Balance training, posture training, shoulder/scapular strengthening, STM
--- NOTE | 2019-09-10 14:30 | PT.OTN ---
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) Pain in thoracic spine (09/10/19) Physical Therapy Treatment Note PT-OP-A Visit Information Start: 08/06/17 17:30 Freq: Status: Active Protocol: Document 09/10/19 13:45 DCW (Rec: 09/10/19 14:30 DCW [id number]) Out-Patient Physical Therapy Visit Information Visit Information Visit Type Treatment Note Visit Start Time 13:45 Visit Stop Time 14:40 Total Visit Minutes 55 Visit Number 93 Number of CYBER SYSTEMS ENGINEER Visits 0 Evaluation Information Evaluation Date 05/28/17 PT-OP-B Current Condition Start: 10/04/17 14:21 Freq: Status: Active Protocol: Document 02/20/19 13:45 DCW (Rec: 02/20/19 14:36 DCW [id number]) Current Condition History of Current Condition History of Current Condition Please see patient's chart in Therapy Source for complete history and initial evaluation ADDENDEM 02/20/19: Pt has a new referral to work on balance and gait. Pt notes she doesn't have any recent falls , but that's because I'm good at grabbing things before I go down. Pt has been using a SPC for assistance, and has recently gotten a FWW, although she has yet to use it . Pt admits that she has not been picking my feet up very well. PT-OP-C Subjective Start: 08/06/17 17:30 Freq: Status: Active Protocol: Document 09/10/19 13:45 DCW (Rec: 09/10/19 14:30 DCW [id number]) OP-PT Subjective Patient Comments Patient Comments Pt reports her ribs and shoulders are sore today. PT-OP-D Balance Start: 02/20/19 13:46 Freq: Status: Active Protocol: Document 05/21/19 14:30 DCW (Rec: 05/21/19 15:12 DCW [id number]) OP-PT Balance Assessment Sitting Balance Static Sitting Balance Ability Good Dynamic Sitting Balance Ability Good Standing Balance Static Standing Balance Ability Fair Dynamic Standing Balance Ability Fair Balance Tests Yanez Balance Test Yanez Balance Test Score 45/56 Yanez Impairment Rating 1 to 19% Impaired (Score 45-55 ) Yanez Balance Assessment Evaluation Sitting to Standing Ability Independent w/out Hands Unsupported Stance Safely- 2 minutes Sitting Unsupported, Feet on Floor Safely- 2 minutes Standing to Sitting Ability Safely, Minimal Hand Use Transfer Ability Safely, Minimal Hand Use Unsupported Stance- Eyes Closed Safely, 10 seconds Unsupported Stance- Eyes Open Independent, 1 minute Reaching Forward Standing Safely, 5 inches Pick- Up Object From Floor Independent/Safe Look Behind Shoulder - Standing Shifts Weight Unilateral Turning 360 Degrees Turns slowly, but safely Unsupported Stance, Alternating Feet on 4 Steps w/Supervision Stair Unsupported Tandem Stance Small Step- 30 seconds Unilateral Leg Stance Lifts Leg/Unable to Hold Total Score Yanez Total Score (out of 56 points) 45 Yanez Impairment Rating 1 to 19% Impaired (Score 45-55 ) Mensah Fall Scale Copyright Permission PT-OP-E Functional Tests Start: 02/20/19 13:46 Freq: Status: Active Protocol: Document 08/13/19 13:40 DCW (Rec: 08/13/19 14:02 DCW [id number]) Functional Tests 2 Minute Walk Test Distance 237 Device Used SPC Comments 1.98 ft/sec Dynamic Gait Index (DGI) Score 16/24 DGI Impairment Rating 20 to <40% Impaired (Score 15- 19) PT-OP-F Manual Assessment Start: 10/04/17 14:21 Freq: Status: Active Protocol: Document 05/21/19 14:30 DCW (Rec: 05/21/19 15:12 DCW [id number]) Manual Assessments Soft Tissue Assessment Soft Tissue Mobility Assessment Moderate tone in Bilateral thoracic and lumbar paraspinals, piriformis, iliopsoas, and quadratus lumborum. Mild tone in bilateral hamstrings and adductor vinod PT-OP-J Posture/Palpation/Skin Start: 10/04/17 14:21 Freq: Status: Active Protocol: Document 08/13/19 13:40 DCW (Rec: 08/13/19 14:02 DCW [id number]) Posture Evaluation Comments Posture Comments Pt's jorge with cues to stand as tall as possible: 5' 1/4 / c 3/4 heel PT-OP-K Range of Motion Start: 10/04/17 14:21 Freq: Status: Active Protocol: Document 08/13/19 13:40 DCW (Rec: 08/13/19 14:02 DCW [id number]) Lumbar Spine Range of Motion Lumbar Spine Active Degrees Testing Position Standing Comments Max extension, pt is forward flexed 5? at her thoracic spine Shoulder Goniometric Range of Motion Shoulder Left Active Shoulder ROM WFL No Testing Position Sitting Flexion 157 Abduction 148 External Rotation at 0 degrees Abduction 60 Right Active Shoulder ROM WFL No Testing Position Sitting Flexion 135 Abduction 124 External Rotation at 0 degrees Abduction 60 PT-OP-M Strength Start: 10/04/17 14:21 Freq: Status: Active Protocol: Document 12/18/18 13:45 DCW (Rec: 12/18/18 14:23 DCW [id number]) Shoulder Strength Shoulder Manual Muscle Testing Right Flexion 4 Good Abduction (C5) 4+ Good+ External Rotation 4+ Good+ Internal Rotation 5 Normal Left Flexion 4 Good Abduction (C5) 4+ Good+ External Rotation 4+ Good+ Internal Rotation 5 Normal PT-OP-Q Treatments Start: 08/06/17 17:30 Freq: Status: Active Protocol: Document 09/10/19 13:45 DCW (Rec: 09/10/19 14:30 DCW [id number]) Cardio Equipment Upper Body Ergometer (UBE) Duration (Minutes) 5 RPM 60 Seat Position 12 Height 3 Therapeutic Exercises Supine Exercises 1 Supine Exercise Name Supine on Towel roll at T10-12 Side bilateral Comments increase thoracolumbar extension Sitting Exercises PROM Abduction Sitting Exercise Name Pullies GH Abduction Side bilateral PROM Flexion Sitting Exercise Name Pullies GH flexion Side bilateral Standing Exercises Rows Standing Exercise Name Rows Side bilateral Resistance Lv 3 Equipment Used T-band Shoulder Extension Standing Exercise Name Extension Side bilateral Resistance Lv 2 Equipment Used T-band Manual Therapy Treatment Soft Tissue Mobilization 4 Body Location Piriformis Mobilization Type Strumming,Sustained Pressure, Trigger Point Release Intensity/Depth Deep Body Position Sidelying 3 Body Location Quadratus Lumborum Mobilization Type Myofascial Release,Strumming, Sustained Pressure Intensity/Depth Moderate Body Position Sidelying 2 Body Location Glute Med Mobilization Type Strumming,Sustained Pressure Intensity/Depth Moderate Body Position Sidelying 1 Body Location Lumbar Erector Spinae Mobilization Type Myofascial Release,Sustained Pressure Intensity/Depth Moderate Body Position Sidelying Joint Mobilizations 1 Joint Thoracic Spine Direction P->A Grade III Body Position Sidelying Manual Traction Lumbar Details Hip/Iliac crest depression Body Position Sidelying Comments MWM PT-OP-R Modalities Start: 08/06/17 17:30 Freq: Status: Active Protocol: Document 09/10/19 13:45 DCW (Rec: 09/10/19 14:30 DCW [id number]) Electric Stimulation Electric Stimulation Interferential Current (IFC) Body Location Lumbar Spine Duration (Minutes) 15 Patient Position Sitting Combined With Heat/Cold Hot Pack PT-OP-T Assessment and Plan Start: 08/06/17 17:30 Freq: Status: Active Protocol: Document 09/10/19 13:45 DCW (Rec: 09/10/19 14:30 DCW [id number]) Physical Therapy Assessment Impairments Impairments Activity Tolerance,Balance, Functional Activities, Functional Mobility,Gait,Pain, Posture,ROM,Soft Tissue Mobility,Strength,Tone Goals Seven Impairment Pt displays increased falls risk Short Term Goal (STG) Pt to score a 47/56 on the Yanez Balance Scale to demonstrate a decreased falls risk STG Duration 09/13/19 - Improving 45/56 [facility] Goal (LTG) Pt to score a 18/24 on the DGI - MET New Goal: LTG Duration 10/13/19 - Declined to Six Impairment Difficulty of getting in the car Materials Clerk Goal (LTG) Patient will get in to the car with proper mechanics without difficulty or low back pain LTG Duration Met Five Impairment Difficulty of lifting laundry from floor to shoulder level [facility] Goal (LTG) Patient will learn good lifting mechanics to prevent further low back pain. LTG Duration 10/13/19 Four Impairment Palpable muscle tone Materials Clerk Goal (LTG) Pt muscle tone grossly to mild levels of tone 08/13/1971-Tso-Pjxsit tone LTG Duration 10/13/19 Three Impairment Thoracic Spine ROM Short Term Goal (STG) Thoracic spine to lacking 10 degrees from neutral at full extension STG Duration Met [facility] Goal (LTG) Thoracic spine to neutral at full extension LTG Duration 10/13/19 - Decline to lacking 5 degrees Two Impairment Pain [facility] Goal (LTG) Pt to report decreased pain to a max of 4/10 LTG Duration 10/13/19 One Impairment Activity tolerance [facility] Goal (LTG) Pt to tolerate gardening with no increased pain for three hours 08/13/19 - pt tolerating two hours of gardening with increased pain after 30 minutes LTG Duration 10/13/19 Assessment Summary Assessment Pt noted improvement following manual therapy techniques, able to perform bed mobility with less restriction due to pain. Physical Therapy Plan Frequency and Duration Frequency of Treatment 1x/Week Duration of Treatment 3 months Plan of Care Start Date 08/13/19 Plan of Care End Date 11/11/19 Therapeutic Interventions Therapeutic Interventions Aquatic Therapy,Home Exercise Program,Joint Mobilizations, Manual Therapy,Neuromuscular Re-education,Self-Care/Home Management,Soft Tissue Mobilization,Therapeutic Exercises Modalities Cold Pack/Ice Massage,Electric Stimulation,Hot Packs Next Visit Focus/Plan Next Note Type Treatment Note Next Visit Plan Balance training, posture training, shoulder/scapular strengthening, STM
--- NOTE | 2019-09-17 14:34 | PT.OTN ---
Current Diagnoses Scoliosis, unspecified (09/17/19) Spondylosis without myelopathy or radiculopathy, cervical region (09/17/19) Pain in thoracic spine (09/17/19) Physical Therapy Treatment Note PT-OP-A Visit Information Start: 08/06/17 17:30 Freq: Status: Active Protocol: Document 09/17/19 13:45 DCW (Rec: 09/17/19 14:33 DCW [id number]) Out-Patient Physical Therapy Visit Information Visit Information Visit Type Treatment Note Visit Start Time 13:45 Visit Stop Time 14:40 Total Visit Minutes 55 Visit Number 94 Number of CUSTOMER ENGINEERING SPECIALIST Visits 0 Evaluation Information Evaluation Date 05/28/17 PT-OP-B Current Condition Start: 10/04/17 14:21 Freq: Status: Active Protocol: Document 02/20/19 13:45 DCW (Rec: 02/20/19 14:36 DCW [id number]) Current Condition History of Current Condition History of Current Condition Please see patient's chart in Therapy Source for complete history and initial evaluation ADDENDEM 02/20/19: Pt has a new referral to work on balance and gait. Pt notes she doesn't have any recent falls , but that's because I'm good at grabbing things before I go down. Pt has been using a SPC for assistance, and has recently gotten a FWW, although she has yet to use it . Pt admits that she has not been picking my feet up very well. PT-OP-C Subjective Start: 08/06/17 17:30 Freq: Status: Active Protocol: Document 09/17/19 13:45 DCW (Rec: 09/17/19 14:33 DCW [id number]) OP-PT Subjective Patient Comments Patient Comments I'm having some standing issues today. I seem to have trouble balancing. PT-OP-D Balance Start: 02/20/19 13:46 Freq: Status: Active Protocol: Document 05/21/19 14:30 DCW (Rec: 05/21/19 15:12 DCW [id number]) OP-PT Balance Assessment Sitting Balance Static Sitting Balance Ability Good Dynamic Sitting Balance Ability Good Standing Balance Static Standing Balance Ability Fair Dynamic Standing Balance Ability Fair Balance Tests Yanez Balance Test Yanez Balance Test Score 45/56 Yanez Impairment Rating 1 to 19% Impaired (Score 45-55 ) Yanez Balance Assessment Evaluation Sitting to Standing Ability Independent w/out Hands Unsupported Stance Safely- 2 minutes Sitting Unsupported, Feet on Floor Safely- 2 minutes Standing to Sitting Ability Safely, Minimal Hand Use Transfer Ability Safely, Minimal Hand Use Unsupported Stance- Eyes Closed Safely, 10 seconds Unsupported Stance- Eyes Open Independent, 1 minute Reaching Forward Standing Safely, 5 inches Pick- Up Object From Floor Independent/Safe Look Behind Shoulder - Standing Shifts Weight Unilateral Turning 360 Degrees Turns slowly, but safely Unsupported Stance, Alternating Feet on 4 Steps w/Supervision Stair Unsupported Tandem Stance Small Step- 30 seconds Unilateral Leg Stance Lifts Leg/Unable to Hold Total Score Yanez Total Score (out of 56 points) 45 Yanez Impairment Rating 1 to 19% Impaired (Score 45-55 ) Mensah Fall Scale Copyright Permission PT-OP-E Functional Tests Start: 02/20/19 13:46 Freq: Status: Active Protocol: Document 08/13/19 13:40 DCW (Rec: 08/13/19 14:02 DCW [id number]) Functional Tests 2 Minute Walk Test Distance 237 Device Used SPC Comments 1.98 ft/sec Dynamic Gait Index (DGI) Score 16/24 DGI Impairment Rating 20 to <40% Impaired (Score 15- 19) PT-OP-F Manual Assessment Start: 10/04/17 14:21 Freq: Status: Active Protocol: Document 05/21/19 14:30 DCW (Rec: 05/21/19 15:12 DCW [id number]) Manual Assessments Soft Tissue Assessment Soft Tissue Mobility Assessment Moderate tone in Bilateral thoracic and lumbar paraspinals, piriformis, iliopsoas, and quadratus lumborum. Mild tone in bilateral hamstrings and adductor vinod PT-OP-J Posture/Palpation/Skin Start: 10/04/17 14:21 Freq: Status: Active Protocol: Document 08/13/19 13:40 DCW (Rec: 08/13/19 14:02 DCW [id number]) Posture Evaluation Comments Posture Comments Pt's jorge with cues to stand as tall as possible: 5' 1/4 / c 3/4 heel PT-OP-K Range of Motion Start: 10/04/17 14:21 Freq: Status: Active Protocol: Document 08/13/19 13:40 DCW (Rec: 08/13/19 14:02 DCW [id number]) Lumbar Spine Range of Motion Lumbar Spine Active Degrees Testing Position Standing Comments Max extension, pt is forward flexed 5? at her thoracic spine Shoulder Goniometric Range of Motion Shoulder Left Active Shoulder ROM WFL No Testing Position Sitting Flexion 157 Abduction 148 External Rotation at 0 degrees Abduction 60 Right Active Shoulder ROM WFL No Testing Position Sitting Flexion 135 Abduction 124 External Rotation at 0 degrees Abduction 60 PT-OP-M Strength Start: 10/04/17 14:21 Freq: Status: Active Protocol: Document 12/18/18 13:45 DCW (Rec: 12/18/18 14:23 DCW [id number]) Shoulder Strength Shoulder Manual Muscle Testing Right Flexion 4 Good Abduction (C5) 4+ Good+ External Rotation 4+ Good+ Internal Rotation 5 Normal Left Flexion 4 Good Abduction (C5) 4+ Good+ External Rotation 4+ Good+ Internal Rotation 5 Normal PT-OP-Q Treatments Start: 08/06/17 17:30 Freq: Status: Active Protocol: Document 09/17/19 13:45 DCW (Rec: 09/17/19 14:33 DCW [id number]) Gym Equipment Shuttle Balance Red Details Eyes open/closed, Staggered Stance Therapeutic Exercises Supine Exercises 1 Supine Exercise Name Supine on Towel roll at T10-12 Side bilateral Comments increase thoracolumbar extension Sitting Exercises PROM Abduction Sitting Exercise Name Pullies GH Abduction Side bilateral PROM Flexion Sitting Exercise Name Pullies GH flexion Side bilateral Manual Therapy Treatment Soft Tissue Mobilization 4 Body Location Piriformis Mobilization Type Strumming,Sustained Pressure, Trigger Point Release Intensity/Depth Deep Body Position Sidelying 3 Body Location Quadratus Lumborum Mobilization Type Myofascial Release,Strumming, Sustained Pressure Intensity/Depth Moderate Body Position Sidelying 2 Body Location Glute Med Mobilization Type Strumming,Sustained Pressure Intensity/Depth Moderate Body Position Sidelying 1 Body Location Lumbar Erector Spinae Mobilization Type Myofascial Release,Sustained Pressure Intensity/Depth Moderate Body Position Sidelying Joint Mobilizations 1 Joint Thoracic Spine Direction P->A Grade III Body Position Sidelying Manual Traction Lumbar Details Hip/Iliac crest depression Body Position Sidelying Comments MWM PT-OP-R Modalities Start: 08/06/17 17:30 Freq: Status: Active Protocol: Document 09/17/19 13:45 DCW (Rec: 09/17/19 14:33 DCW [id number]) Electric Stimulation Electric Stimulation Interferential Current (IFC) Body Location Lumbar Spine Duration (Minutes) 15 Patient Position Sitting Combined With Heat/Cold Hot Pack PT-OP-T Assessment and Plan Start: 08/06/17 17:30 Freq: Status: Active Protocol: Document 09/17/19 13:45 DCW (Rec: 09/17/19 14:33 DCW [id number]) Physical Therapy Assessment Impairments Impairments Activity Tolerance,Balance, Functional Activities, Functional Mobility,Gait,Pain, Posture,ROM,Soft Tissue Mobility,Strength,Tone Goals Seven Impairment Pt displays increased falls risk Short Term Goal (STG) Pt to score a 47/56 on the Yanez Balance Scale to demonstrate a decreased falls risk STG Duration 09/13/19 - Improving 45/56 Power Systems Engineer Goal (LTG) Pt to score a 18/24 on the DGI - MET New Goal: LTG Duration 10/13/19 - Declined to Six Impairment Difficulty of getting in the car Long-Term Goal (LTG) Patient will get in to the car with proper mechanics without difficulty or low back pain LTG Duration Met Five Impairment Difficulty of lifting laundry from floor to shoulder level Power Systems Engineer Goal (LTG) Patient will learn good lifting mechanics to prevent further low back pain. LTG Duration 10/13/19 Four Impairment Palpable muscle tone Power Systems Engineer Goal (LTG) Pt muscle tone grossly to mild levels of tone 08/13/1950-Uzl-Sjbmnr tone LTG Duration 10/13/19 Three Impairment Thoracic Spine ROM Short Term Goal (STG) Thoracic spine to lacking 10 degrees from neutral at full extension STG Duration Met Power Systems Engineer Goal (LTG) Thoracic spine to neutral at full extension LTG Duration 10/13/19 - Decline to lacking 5 degrees Two Impairment Pain Power Systems Engineer Goal (LTG) Pt to report decreased pain to a max of 4/10 LTG Duration 10/13/19 One Impairment Activity tolerance Long-Term Goal (LTG) Pt to tolerate gardening with no increased pain for three hours 08/13/19 - pt tolerating two hours of gardening with increased pain after 30 minutes LTG Duration 10/13/19 Assessment Summary Assessment Pt had increased right-sided tone in paraspinals and piriformis, causing increased pain and stiffness today. Reported improvement following manual therapy. Physical Therapy Plan Frequency and Duration Frequency of Treatment 1x/Week Duration of Treatment 3 months Plan of Care Start Date 08/13/19 Plan of Care End Date 11/11/19 Therapeutic Interventions Therapeutic Interventions Aquatic Therapy,Home Exercise Program,Joint Mobilizations, Manual Therapy,Neuromuscular Re-education,Self-Care/Home Management,Soft Tissue Mobilization,Therapeutic Exercises Modalities Cold Pack/Ice Massage,Electric Stimulation,Hot Packs Next Visit Focus/Plan Next Note Type Treatment Note Next Visit Plan Balance training, posture training, shoulder/scapular strengthening, STM
--- NOTE | 2019-09-24 14:35 | PT.OTN ---
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) Pain in thoracic spine (09/24/19) Physical Therapy Treatment Note PT-OP-A Visit Information Start: 08/06/17 17:30 Freq: Status: Active Protocol: Document 09/24/19 13:45 DCW (Rec: 09/24/19 14:35 DCW [id number]) Out-Patient Physical Therapy Visit Information Visit Information Visit Type Treatment Note Visit Start Time 13:45 Visit Stop Time 14:40 Total Visit Minutes 55 Visit Number 95 Number of OPERATIONS RESEARCH SCIENTIST Visits 0 Evaluation Information Evaluation Date 05/28/17 PT-OP-B Current Condition Start: 10/04/17 14:21 Freq: Status: Active Protocol: Document 02/20/19 13:45 DCW (Rec: 02/20/19 14:36 DCW [id number]) Current Condition History of Current Condition History of Current Condition Please see patient's chart in Therapy Source for complete history and initial evaluation ADDENDEM 02/20/19: Pt has a new referral to work on balance and gait. Pt notes she doesn't have any recent falls , but that's because I'm good at grabbing things before I go down. Pt has been using a SPC for assistance, and has recently gotten a FWW, although she has yet to use it . Pt admits that she has not been picking my feet up very well. PT-OP-C Subjective Start: 08/06/17 17:30 Freq: Status: Active Protocol: Document 09/24/19 13:45 DCW (Rec: 09/24/19 14:35 DCW [id number]) OP-PT Subjective Patient Comments Patient Comments I've noticed my back is barking at me when I bend over to pick stuff up, but my shoulders have been feeling better. PT-OP-D Balance Start: 02/20/19 13:46 Freq: Status: Active Protocol: Document 05/21/19 14:30 DCW (Rec: 05/21/19 15:12 DCW [id number]) OP-PT Balance Assessment Sitting Balance Static Sitting Balance Ability Good Dynamic Sitting Balance Ability Good Standing Balance Static Standing Balance Ability Fair Dynamic Standing Balance Ability Fair Balance Tests Yanez Balance Test Yanez Balance Test Score 45/56 Yanez Impairment Rating 1 to 19% Impaired (Score 45-55 ) Yanez Balance Assessment Evaluation Sitting to Standing Ability Independent w/out Hands Unsupported Stance Safely- 2 minutes Sitting Unsupported, Feet on Floor Safely- 2 minutes Standing to Sitting Ability Safely, Minimal Hand Use Transfer Ability Safely, Minimal Hand Use Unsupported Stance- Eyes Closed Safely, 10 seconds Unsupported Stance- Eyes Open Independent, 1 minute Reaching Forward Standing Safely, 5 inches Pick- Up Object From Floor Independent/Safe Look Behind Shoulder - Standing Shifts Weight Unilateral Turning 360 Degrees Turns slowly, but safely Unsupported Stance, Alternating Feet on 4 Steps w/Supervision Stair Unsupported Tandem Stance Small Step- 30 seconds Unilateral Leg Stance Lifts Leg/Unable to Hold Total Score Yanez Total Score (out of 56 points) 45 Yanez Impairment Rating 1 to 19% Impaired (Score 45-55 ) Mensah Fall Scale Copyright Permission PT-OP-E Functional Tests Start: 02/20/19 13:46 Freq: Status: Active Protocol: Document 08/13/19 13:40 DCW (Rec: 08/13/19 14:02 DCW [id number]) Functional Tests 2 Minute Walk Test Distance 237 Device Used SPC Comments 1.98 ft/sec Dynamic Gait Index (DGI) Score 16/24 DGI Impairment Rating 20 to <40% Impaired (Score 15- 19) PT-OP-F Manual Assessment Start: 10/04/17 14:21 Freq: Status: Active Protocol: Document 05/21/19 14:30 DCW (Rec: 05/21/19 15:12 DCW [id number]) Manual Assessments Soft Tissue Assessment Soft Tissue Mobility Assessment Moderate tone in Bilateral thoracic and lumbar paraspinals, piriformis, iliopsoas, and quadratus lumborum. Mild tone in bilateral hamstrings and adductor vinod PT-OP-J Posture/Palpation/Skin Start: 10/04/17 14:21 Freq: Status: Active Protocol: Document 08/13/19 13:40 DCW (Rec: 08/13/19 14:02 DCW [id number]) Posture Evaluation Comments Posture Comments Pt's jorge with cues to stand as tall as possible: 5' 1/4 / c 3/4 heel PT-OP-K Range of Motion Start: 10/04/17 14:21 Freq: Status: Active Protocol: Document 08/13/19 13:40 DCW (Rec: 08/13/19 14:02 DCW [id number]) Lumbar Spine Range of Motion Lumbar Spine Active Degrees Testing Position Standing Comments Max extension, pt is forward flexed 5? at her thoracic spine Shoulder Goniometric Range of Motion Shoulder Left Active Shoulder ROM WFL No Testing Position Sitting Flexion 157 Abduction 148 External Rotation at 0 degrees Abduction 60 Right Active Shoulder ROM WFL No Testing Position Sitting Flexion 135 Abduction 124 External Rotation at 0 degrees Abduction 60 PT-OP-M Strength Start: 10/04/17 14:21 Freq: Status: Active Protocol: Document 12/18/18 13:45 DCW (Rec: 12/18/18 14:23 DCW [id number]) Shoulder Strength Shoulder Manual Muscle Testing Right Flexion 4 Good Abduction (C5) 4+ Good+ External Rotation 4+ Good+ Internal Rotation 5 Normal Left Flexion 4 Good Abduction (C5) 4+ Good+ External Rotation 4+ Good+ Internal Rotation 5 Normal PT-OP-Q Treatments Start: 08/06/17 17:30 Freq: Status: Active Protocol: Document 09/24/19 13:45 DCW (Rec: 09/24/19 14:35 DCW [id number]) Cardio Equipment Upper Body Ergometer (UBE) Duration (Minutes) 5 RPM 60 Seat Position 12 Height 3 Gym Equipment Shuttle Balance Red Details Eyes open/closed, Staggered Stance Therapeutic Exercises Supine Exercises 1 Supine Exercise Name Supine on Towel roll at T10-12 Side bilateral Comments increase thoracolumbar extension Manual Therapy Treatment Soft Tissue Mobilization 4 Body Location Piriformis Mobilization Type Strumming,Sustained Pressure, Trigger Point Release Intensity/Depth Deep Body Position Sidelying 3 Body Location Quadratus Lumborum Mobilization Type Myofascial Release,Strumming, Sustained Pressure Intensity/Depth Moderate Body Position Sidelying 2 Body Location Glute Med Mobilization Type Strumming,Sustained Pressure Intensity/Depth Moderate Body Position Sidelying 1 Body Location Lumbar Erector Spinae Mobilization Type Myofascial Release,Sustained Pressure Intensity/Depth Moderate Body Position Sidelying Joint Mobilizations 1 Joint Thoracic Spine Direction P->A Grade III Body Position Sidelying Manual Traction Lumbar Details Hip/Iliac crest depression Body Position Sidelying Comments MWM Neuro Re-Education Treatment Balance Activities Tandem Walking Details Tandem Walking Tandem Stance Details Tandem Stance PT-OP-R Modalities Start: 08/06/17 17:30 Freq: Status: Active Protocol: Document 09/24/19 13:45 DCW (Rec: 09/24/19 14:35 DCW [id number]) Electric Stimulation Electric Stimulation Interferential Current (IFC) Body Location Lumbar Spine Duration (Minutes) 15 Patient Position Sitting Combined With Heat/Cold Hot Pack PT-OP-T Assessment and Plan Start: 08/06/17 17:30 Freq: Status: Active Protocol: Document 09/24/19 13:45 DCW (Rec: 09/24/19 14:35 DCW [id number]) Physical Therapy Assessment Impairments Impairments Activity Tolerance,Balance, Functional Activities, Functional Mobility,Gait,Pain, Posture,ROM,Soft Tissue Mobility,Strength,Tone Goals Seven Impairment Pt displays increased falls risk Short Term Goal (STG) Pt to score a 47/56 on the Yanez Balance Scale to demonstrate a decreased falls risk STG Duration 09/13/19 - Improving 45/56 Jail Goal (LTG) Pt to score a 18/24 on the DGI - MET New Goal: LTG Duration 10/13/19 - Declined to Six Impairment Difficulty of getting in the car Jail Goal (LTG) Patient will get in to the car with proper mechanics without difficulty or low back pain LTG Duration Met Five Impairment Difficulty of lifting laundry from floor to shoulder level Jail Goal (LTG) Patient will learn good lifting mechanics to prevent further low back pain. LTG Duration 10/13/19 Four Impairment Palpable muscle tone Waxer Floor Goal (LTG) Pt muscle tone grossly to mild levels of tone 08/13/1926-Aen-Nbguzf tone LTG Duration 10/13/19 Three Impairment Thoracic Spine ROM Short Term Goal (STG) Thoracic spine to lacking 10 degrees from neutral at full extension STG Duration Met [place] Floor Goal (LTG) Thoracic spine to neutral at full extension LTG Duration 10/13/19 - Decline to lacking 5 degrees Two Impairment Pain Jail Goal (LTG) Pt to report decreased pain to a max of 4/10 LTG Duration 10/13/19 One Impairment Activity tolerance [place] Floor Goal (LTG) Pt to tolerate gardening with no increased pain for three hours 08/13/19 - pt tolerating two hours of gardening with increased pain after 30 minutes LTG Duration 7/13/20 Assessment Summary Assessment Pt moving better today, less stiffness in back and shoulders. Pt did have increased tone in left paraspinals today instead of right, which is what was tight last week. Physical Therapy Plan Frequency and Duration Frequency of Treatment 1x/Week Duration of Treatment 3 months Plan of Care Start Date 08/13/19 Plan of Care End Date 11/11/19 Therapeutic Interventions Therapeutic Interventions Aquatic Therapy,Home Exercise Program,Joint Mobilizations, Manual Therapy,Neuromuscular Re-education,Self-Care/Home Management,Soft Tissue Mobilization,Therapeutic Exercises Modalities Cold Pack/Ice Massage,Electric Stimulation,Hot Packs Next Visit Focus/Plan Next Note Type Treatment Note Next Visit Plan Balance training, posture training, shoulder/scapular strengthening, STM
--- NOTE | 2019-09-30 16:01 | PT.OTN ---
Current Diagnoses Scoliosis, unspecified (09/30/19) Spondylosis without myelopathy or radiculopathy, cervical region (09/30/19) Pain in thoracic spine (09/30/19) Physical Therapy Treatment Note PT-OP-A Visit Information Start: 08/06/17 17:30 Freq: Status: Active Protocol: Document 09/30/19 15:15 DCW (Rec: 09/30/19 16:01 DCW [id number]) Out-Patient Physical Therapy Visit Information Visit Information Visit Type Treatment Note Visit Start Time 15:15 Visit Stop Time 16:10 Total Visit Minutes 55 Visit Number 96 Number of MEASURING MACHINE TENDER Visits 0 Evaluation Information Evaluation Date 05/28/17 PT-OP-B Current Condition Start: 10/04/17 14:21 Freq: Status: Active Protocol: Document 02/20/19 13:45 DCW (Rec: 02/20/19 14:36 DCW [id number]) Current Condition History of Current Condition History of Current Condition Please see patient's chart in Therapy Source for complete history and initial evaluation ADDENDEM 02/20/19: Pt has a new referral to work on balance and gait. Pt notes she doesn't have any recent falls , but that's because I'm good at grabbing things before I go down. Pt has been using a SPC for assistance, and has recently gotten a FWW, although she has yet to use it . Pt admits that she has not been picking my feet up very well. PT-OP-C Subjective Start: 08/06/17 17:30 Freq: Status: Active Protocol: Document 09/30/19 15:15 DCW (Rec: 09/30/19 16:01 DCW [id number]) OP-PT Subjective Patient Comments Patient Comments Pt notes her back is a little sore today. PT-OP-D Balance Start: 02/20/19 13:46 Freq: Status: Active Protocol: Document 05/21/19 14:30 DCW (Rec: 05/21/19 15:12 DCW [id number]) OP-PT Balance Assessment Sitting Balance Static Sitting Balance Ability Good Dynamic Sitting Balance Ability Good Standing Balance Static Standing Balance Ability Fair Dynamic Standing Balance Ability Fair Balance Tests Yanez Balance Test Yanez Balance Test Score 45/56 Yanez Impairment Rating 1 to 19% Impaired (Score 45-55 ) Yanez Balance Assessment Evaluation Sitting to Standing Ability Independent w/out Hands Unsupported Stance Safely- 2 minutes Sitting Unsupported, Feet on Floor Safely- 2 minutes Standing to Sitting Ability Safely, Minimal Hand Use Transfer Ability Safely, Minimal Hand Use Unsupported Stance- Eyes Closed Safely, 10 seconds Unsupported Stance- Eyes Open Independent, 1 minute Reaching Forward Standing Safely, 5 inches Pick- Up Object From Floor Independent/Safe Look Behind Shoulder - Standing Shifts Weight Unilateral Turning 360 Degrees Turns slowly, but safely Unsupported Stance, Alternating Feet on 4 Steps w/Supervision Stair Unsupported Tandem Stance Small Step- 30 seconds Unilateral Leg Stance Lifts Leg/Unable to Hold Total Score Yanez Total Score (out of 56 points) 45 Yanez Impairment Rating 1 to 19% Impaired (Score 45-55 ) Mensah Fall Scale Copyright Permission PT-OP-E Functional Tests Start: 02/20/19 13:46 Freq: Status: Active Protocol: Document 08/13/19 13:40 DCW (Rec: 08/13/19 14:02 DCW [id number]) Functional Tests 2 Minute Walk Test Distance 237 Device Used SPC Comments 1.98 ft/sec Dynamic Gait Index (DGI) Score 16/24 DGI Impairment Rating 20 to <40% Impaired (Score 15- 19) PT-OP-F Manual Assessment Start: 10/04/17 14:21 Freq: Status: Active Protocol: Document 05/21/19 14:30 DCW (Rec: 05/21/19 15:12 DCW [id number]) Manual Assessments Soft Tissue Assessment Soft Tissue Mobility Assessment Moderate tone in Bilateral thoracic and lumbar paraspinals, piriformis, iliopsoas, and quadratus lumborum. Mild tone in bilateral hamstrings and adductor vinod PT-OP-J Posture/Palpation/Skin Start: 10/04/17 14:21 Freq: Status: Active Protocol: Document 08/13/19 13:40 DCW (Rec: 08/13/19 14:02 DCW [id number]) Posture Evaluation Comments Posture Comments Pt's jorge with cues to stand as tall as possible: 5' 1/4 / c 3/4 heel PT-OP-K Range of Motion Start: 10/04/17 14:21 Freq: Status: Active Protocol: Document 08/13/19 13:40 DCW (Rec: 08/13/19 14:02 DCW [id number]) Lumbar Spine Range of Motion Lumbar Spine Active Degrees Testing Position Standing Comments Max extension, pt is forward flexed 5? at her thoracic spine Shoulder Goniometric Range of Motion Shoulder Left Active Shoulder ROM WFL No Testing Position Sitting Flexion 157 Abduction 148 External Rotation at 0 degrees Abduction 60 Right Active Shoulder ROM WFL No Testing Position Sitting Flexion 135 Abduction 124 External Rotation at 0 degrees Abduction 60 PT-OP-M Strength Start: 10/04/17 14:21 Freq: Status: Active Protocol: Document 12/18/18 13:45 DCW (Rec: 12/18/18 14:23 DCW [id number]) Shoulder Strength Shoulder Manual Muscle Testing Right Flexion 4 Good Abduction (C5) 4+ Good+ External Rotation 4+ Good+ Internal Rotation 5 Normal Left Flexion 4 Good Abduction (C5) 4+ Good+ External Rotation 4+ Good+ Internal Rotation 5 Normal PT-OP-Q Treatments Start: 08/06/17 17:30 Freq: Status: Active Protocol: Document 09/30/19 15:15 DCW (Rec: 09/30/19 16:01 DCW [id number]) Cardio Equipment Upper Body Ergometer (UBE) Duration (Minutes) 5 RPM 60 Seat Position 13 Height 3 Therapeutic Exercises Sitting Exercises PROM Abduction Sitting Exercise Name Pullies GH Abduction Side bilateral PROM Flexion Sitting Exercise Name Pullies GH flexion Side bilateral Standing Exercises Rows Standing Exercise Name Rows Side bilateral Resistance Lv 3 Equipment Used T-band Shoulder Extension Standing Exercise Name Extension Side bilateral Resistance Lv 2 Equipment Used T-band Manual Therapy Treatment Soft Tissue Mobilization 4 Body Location Piriformis Mobilization Type Strumming,Sustained Pressure, Trigger Point Release Intensity/Depth Deep Body Position Sidelying 3 Body Location Quadratus Lumborum Mobilization Type Myofascial Release,Strumming, Sustained Pressure Intensity/Depth Moderate Body Position Sidelying 2 Body Location Glute Med Mobilization Type Strumming,Sustained Pressure Intensity/Depth Moderate Body Position Sidelying 1 Body Location Lumbar Erector Spinae Mobilization Type Myofascial Release,Sustained Pressure Intensity/Depth Moderate Body Position Sidelying Joint Mobilizations 1 Joint Thoracic Spine Direction P->A Grade III Body Position Sidelying Manual Traction Lumbar Details Hip/Iliac crest depression Body Position Sidelying Comments MWM PT-OP-R Modalities Start: 08/06/17 17:30 Freq: Status: Active Protocol: Document 09/30/19 15:15 DCW (Rec: 09/30/19 16:01 DCW [id number]) Electric Stimulation Electric Stimulation Interferential Current (IFC) Body Location Lumbar Spine Duration (Minutes) 15 Patient Position Sitting Combined With Heat/Cold Hot Pack PT-OP-T Assessment and Plan Start: 08/06/17 17:30 Freq: Status: Active Protocol: Document 09/30/19 15:15 DCW (Rec: 09/30/19 16:01 DCW [id number]) Physical Therapy Assessment Impairments Impairments Activity Tolerance,Balance, Functional Activities, Functional Mobility,Gait,Pain, Posture,ROM,Soft Tissue Mobility,Strength,Tone Goals Seven Impairment Pt displays increased falls risk Short Term Goal (STG) Pt to score a 47/56 on the Yanez Balance Scale to demonstrate a decreased falls risk STG Duration 09/13/19 - Improving 45/56 Geographic Information Systems Engineer Goal (LTG) Pt to score a 18/24 on the DGI - MET New Goal: LTG Duration 10/13/19 - Declined to Six Impairment Difficulty of getting in the car Geographic Information Systems Engineer Goal (LTG) Patient will get in to the car with proper mechanics without difficulty or low back pain LTG Duration Met Five Impairment Difficulty of lifting laundry from floor to shoulder level Mcfp Goal (LTG) Patient will learn good lifting mechanics to prevent further low back pain. LTG Duration 10/13/19 Four Impairment Palpable muscle tone Mcfp Goal (LTG) Pt muscle tone grossly to mild levels of tone 08/13/1927-Cfs-Nlvuys tone LTG Duration 10/13/19 Three Impairment Thoracic Spine ROM Short Term Goal (STG) Thoracic spine to lacking 10 degrees from neutral at full extension STG Duration Met Geographic Information Systems Engineer Goal (LTG) Thoracic spine to neutral at full extension LTG Duration 10/13/19 - Decline to lacking 5 degrees Two Impairment Pain Geographic Information Systems Engineer Goal (LTG) Pt to report decreased pain to a max of 4/10 LTG Duration 10/13/19 One Impairment Activity tolerance Geographic Information Systems Engineer Goal (LTG) Pt to tolerate gardening with no increased pain for three hours 08/13/19 - pt tolerating two hours of gardening with increased pain after 30 minutes LTG Duration 10/13/19 Assessment Summary Assessment Pt felt better today, still having some rib pain due to rubbing against pelvis. Pt stood with improved posture today performing shoulder exercises. Physical Therapy Plan Frequency and Duration Frequency of Treatment 1x/Week Duration of Treatment 3 months Plan of Care Start Date 08/13/19 Plan of Care End Date 11/11/19 Therapeutic Interventions Therapeutic Interventions Aquatic Therapy,Home Exercise Program,Joint Mobilizations, Manual Therapy,Neuromuscular Re-education,Self-Care/Home Management,Soft Tissue Mobilization,Therapeutic Exercises Modalities Cold Pack/Ice Massage,Electric Stimulation,Hot Packs Next Visit Focus/Plan Next Note Type Treatment Note Next Visit Plan Balance training, posture training, shoulder/scapular strengthening, STM
--- NOTE | 2019-10-09 12:48 | PT.OTN ---
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) Pain in thoracic spine (10/09/19) Physical Therapy Treatment Note PT-OP-A Visit Information Start: 08/06/17 17:30 Freq: Status: Active Protocol: Document 10/09/19 12:00 DCW (Rec: 10/09/19 12:47 DCW [id number]) Out-Patient Physical Therapy Visit Information Visit Information Visit Type Treatment Note Visit Start Time 12:00 Visit Stop Time 12:55 Total Visit Minutes 55 Visit Number 97 Number of RFID ANALYST Visits 0 Evaluation Information Evaluation Date 05/28/17 PT-OP-B Current Condition Start: 10/04/17 14:21 Freq: Status: Active Protocol: Document 02/20/19 13:45 DCW (Rec: 02/20/19 14:36 DCW [id number]) Current Condition History of Current Condition History of Current Condition Please see patient's chart in Therapy Source for complete history and initial evaluation ADDENDEM 02/20/19: Pt has a new referral to work on balance and gait. Pt notes she doesn't have any recent falls , but that's because I'm good at grabbing things before I go down. Pt has been using a SPC for assistance, and has recently gotten a FWW, although she has yet to use it . Pt admits that she has not been picking my feet up very well. PT-OP-C Subjective Start: 08/06/17 17:30 Freq: Status: Active Protocol: Document 10/09/19 12:00 DCW (Rec: 10/09/19 12:47 DCW [id number]) OP-PT Subjective Patient Comments Patient Comments My ribs aren't good, and my right shoulder isn't good, but otherwise, I'm pretty good. PT-OP-D Balance Start: 02/20/19 13:46 Freq: Status: Active Protocol: Document 05/21/19 14:30 DCW (Rec: 05/21/19 15:12 DCW [id number]) OP-PT Balance Assessment Sitting Balance Static Sitting Balance Ability Good Dynamic Sitting Balance Ability Good Standing Balance Static Standing Balance Ability Fair Dynamic Standing Balance Ability Fair Balance Tests Yanez Balance Test Yanez Balance Test Score 45/56 Yanez Impairment Rating 1 to 19% Impaired (Score 45-55 ) Yanez Balance Assessment Evaluation Sitting to Standing Ability Independent w/out Hands Unsupported Stance Safely- 2 minutes Sitting Unsupported, Feet on Floor Safely- 2 minutes Standing to Sitting Ability Safely, Minimal Hand Use Transfer Ability Safely, Minimal Hand Use Unsupported Stance- Eyes Closed Safely, 10 seconds Unsupported Stance- Eyes Open Independent, 1 minute Reaching Forward Standing Safely, 5 inches Pick- Up Object From Floor Independent/Safe Look Behind Shoulder - Standing Shifts Weight Unilateral Turning 360 Degrees Turns slowly, but safely Unsupported Stance, Alternating Feet on 4 Steps w/Supervision Stair Unsupported Tandem Stance Small Step- 30 seconds Unilateral Leg Stance Lifts Leg/Unable to Hold Total Score Yanez Total Score (out of 56 points) 45 Yanez Impairment Rating 1 to 19% Impaired (Score 45-55 ) Mensah Fall Scale Copyright Permission PT-OP-E Functional Tests Start: 02/20/19 13:46 Freq: Status: Active Protocol: Document 08/13/19 13:40 DCW (Rec: 08/13/19 14:02 DCW [id number]) Functional Tests 2 Minute Walk Test Distance 237 Device Used SPC Comments 1.98 ft/sec Dynamic Gait Index (DGI) Score 16/24 DGI Impairment Rating 20 to <40% Impaired (Score 15- 19) PT-OP-F Manual Assessment Start: 10/04/17 14:21 Freq: Status: Active Protocol: Document 05/21/19 14:30 DCW (Rec: 05/21/19 15:12 DCW [id number]) Manual Assessments Soft Tissue Assessment Soft Tissue Mobility Assessment Moderate tone in Bilateral thoracic and lumbar paraspinals, piriformis, iliopsoas, and quadratus lumborum. Mild tone in bilateral hamstrings and adductor vinod PT-OP-J Posture/Palpation/Skin Start: 10/04/17 14:21 Freq: Status: Active Protocol: Document 08/13/19 13:40 DCW (Rec: 08/13/19 14:02 DCW [id number]) Posture Evaluation Comments Posture Comments Pt's jorge with cues to stand as tall as possible: 5' 1/4 / c 3/4 heel PT-OP-K Range of Motion Start: 10/04/17 14:21 Freq: Status: Active Protocol: Document 08/13/19 13:40 DCW (Rec: 08/13/19 14:02 DCW [id number]) Lumbar Spine Range of Motion Lumbar Spine Active Degrees Testing Position Standing Comments Max extension, pt is forward flexed 5? at her thoracic spine Shoulder Goniometric Range of Motion Shoulder Left Active Shoulder ROM WFL No Testing Position Sitting Flexion 157 Abduction 148 External Rotation at 0 degrees Abduction 60 Right Active Shoulder ROM WFL No Testing Position Sitting Flexion 135 Abduction 124 External Rotation at 0 degrees Abduction 60 PT-OP-M Strength Start: 10/04/17 14:21 Freq: Status: Active Protocol: Document 12/18/18 13:45 DCW (Rec: 12/18/18 14:23 DCW [id number]) Shoulder Strength Shoulder Manual Muscle Testing Right Flexion 4 Good Abduction (C5) 4+ Good+ External Rotation 4+ Good+ Internal Rotation 5 Normal Left Flexion 4 Good Abduction (C5) 4+ Good+ External Rotation 4+ Good+ Internal Rotation 5 Normal PT-OP-Q Treatments Start: 08/06/17 17:30 Freq: Status: Active Protocol: Document 10/09/19 12:00 DCW (Rec: 10/09/19 12:47 DCW [id number]) Cardio Equipment Upper Body Ergometer (UBE) Duration (Minutes) 5 RPM 60 Seat Position 13 Height 3 Therapeutic Exercises Supine Exercises 1 Supine Exercise Name Supine on Towel roll at T10-12 Side bilateral Comments increase thoracolumbar extension Sitting Exercises PROM Abduction Sitting Exercise Name Pullies GH Abduction Side bilateral PROM Flexion Sitting Exercise Name Pullies GH flexion Side bilateral Standing Exercises Rows Standing Exercise Name Rows Side bilateral Resistance Lv 3 Equipment Used T-band Shoulder Extension Standing Exercise Name Extension Side bilateral Resistance Lv 2 Equipment Used T-band Manual Therapy Treatment Soft Tissue Mobilization 4 Body Location Piriformis Mobilization Type Strumming,Sustained Pressure, Trigger Point Release Intensity/Depth Deep Body Position Sidelying 3 Body Location Quadratus Lumborum Mobilization Type Myofascial Release,Strumming, Sustained Pressure Intensity/Depth Moderate Body Position Sidelying 2 Body Location Glute Med Mobilization Type Strumming,Sustained Pressure Intensity/Depth Moderate Body Position Sidelying 1 Body Location Lumbar Erector Spinae Mobilization Type Myofascial Release,Sustained Pressure Intensity/Depth Moderate Body Position Sidelying Joint Mobilizations 1 Joint Thoracic Spine Direction P->A Grade III Body Position Sidelying Manual Traction Lumbar Details Hip/Iliac crest depression Body Position Sidelying Comments MWM PT-OP-R Modalities Start: 08/06/17 17:30 Freq: Status: Active Protocol: Document 10/09/19 12:00 DCW (Rec: 10/09/19 12:47 DCW [id number]) Electric Stimulation Electric Stimulation Interferential Current (IFC) Body Location Lumbar Spine Duration (Minutes) 15 Patient Position Sitting Combined With Heat/Cold Hot Pack PT-OP-T Assessment and Plan Start: 08/06/17 17:30 Freq: Status: Active Protocol: Document 10/09/19 12:00 DCW (Rec: 10/09/19 12:47 DCW [id number]) Physical Therapy Assessment Impairments Impairments Activity Tolerance,Balance, Functional Activities, Functional Mobility,Gait,Pain, Posture,ROM,Soft Tissue Mobility,Strength,Tone Goals Seven Impairment Pt displays increased falls risk Short Term Goal (STG) Pt to score a 47/56 on the Yanez Balance Scale to demonstrate a decreased falls risk STG Duration 09/13/19 - Improving 45/56 Electrical Engineer Goal (LTG) Pt to score a 18/24 on the DGI - MET New Goal: LTG Duration 10/13/19 - Declined to Six Impairment Difficulty of getting in the car Electrical Engineer Goal (LTG) Patient will get in to the car with proper mechanics without difficulty or low back pain LTG Duration Met Five Impairment Difficulty of lifting laundry from floor to shoulder level Electrical Engineer Goal (LTG) Patient will learn good lifting mechanics to prevent further low back pain. LTG Duration 10/13/19 Four Impairment Palpable muscle tone Electrical Engineer Goal (LTG) Pt muscle tone grossly to mild levels of tone 08/13/1961-Ffa-Jpuxbe tone LTG Duration 10/13/19 Three Impairment Thoracic Spine ROM Short Term Goal (STG) Thoracic spine to lacking 10 degrees from neutral at full extension STG Duration Met Electrical Engineer Goal (LTG) Thoracic spine to neutral at full extension LTG Duration 10/13/19 - Decline to lacking 5 degrees Two Impairment Pain Residential Goal (LTG) Pt to report decreased pain to a max of 4/10 LTG Duration 10/13/19 One Impairment Activity tolerance Residential Goal (LTG) Pt to tolerate gardening with no increased pain for three hours 08/13/19 - pt tolerating two hours of gardening with increased pain after 30 minutes LTG Duration 10/13/19 Assessment Summary Assessment Pt having increased soreness after multiple hours spent out performing gardening. Decreased R shoulder mobility today, improved posture during shoulder exercises. Physical Therapy Plan Frequency and Duration Frequency of Treatment 1x/Week Duration of Treatment 3 months Plan of Care Start Date 08/13/19 Plan of Care End Date 11/11/19 Therapeutic Interventions Therapeutic Interventions Aquatic Therapy,Home Exercise Program,Joint Mobilizations, Manual Therapy,Neuromuscular Re-education,Self-Care/Home Management,Soft Tissue Mobilization,Therapeutic Exercises Modalities Cold Pack/Ice Massage,Electric Stimulation,Hot Packs Next Visit Focus/Plan Next Note Type Treatment Note Next Visit Plan Balance training, posture training, shoulder/scapular strengthening, STM
--- NOTE | 2019-10-15 12:44 | PT.OTN ---
Current Diagnoses Scoliosis, unspecified (10/15/19) Spondylosis without myelopathy or radiculopathy, cervical region (10/15/19) Pain in thoracic spine (10/15/19) Physical Therapy Treatment Note PT-OP-A Visit Information Start: 08/06/17 17:30 Freq: Status: Active Protocol: Document 10/15/19 12:00 DCW (Rec: 10/15/19 12:44 DCW [id number]) Out-Patient Physical Therapy Visit Information Visit Information Visit Type Treatment Note Visit Start Time 12:00 Visit Stop Time 12:55 Total Visit Minutes 55 Visit Number 98 Number of MIXER BLENDER Visits 0 Evaluation Information Evaluation Date 05/28/17 PT-OP-B Current Condition Start: 10/04/17 14:21 Freq: Status: Active Protocol: Document 02/20/19 13:45 DCW (Rec: 02/20/19 14:36 DCW [id number]) Current Condition History of Current Condition History of Current Condition Please see patient's chart in Therapy Source for complete history and initial evaluation ADDENDEM 02/20/19: Pt has a new referral to work on balance and gait. Pt notes she doesn't have any recent falls , but that's because I'm good at grabbing things before I go down. Pt has been using a SPC for assistance, and has recently gotten a FWW, although she has yet to use it . Pt admits that she has not been picking my feet up very well. PT-OP-C Subjective Start: 08/06/17 17:30 Freq: Status: Active Protocol: Document 10/15/19 12:00 DCW (Rec: 10/15/19 12:44 DCW [id number]) OP-PT Subjective Patient Comments Patient Comments Pt notes her shoulder is sore , but not awful. The back is worse than the shoulder today. PT-OP-D Balance Start: 02/20/19 13:46 Freq: Status: Active Protocol: Document 05/21/19 14:30 DCW (Rec: 05/21/19 15:12 DCW [id number]) OP-PT Balance Assessment Sitting Balance Static Sitting Balance Ability Good Dynamic Sitting Balance Ability Good Standing Balance Static Standing Balance Ability Fair Dynamic Standing Balance Ability Fair Balance Tests Yanez Balance Test Yanez Balance Test Score 45/56 Yanez Impairment Rating 1 to 19% Impaired (Score 45-55 ) Yanez Balance Assessment Evaluation Sitting to Standing Ability Independent w/out Hands Unsupported Stance Safely- 2 minutes Sitting Unsupported, Feet on Floor Safely- 2 minutes Standing to Sitting Ability Safely, Minimal Hand Use Transfer Ability Safely, Minimal Hand Use Unsupported Stance- Eyes Closed Safely, 10 seconds Unsupported Stance- Eyes Open Independent, 1 minute Reaching Forward Standing Safely, 5 inches Pick- Up Object From Floor Independent/Safe Look Behind Shoulder - Standing Shifts Weight Unilateral Turning 360 Degrees Turns slowly, but safely Unsupported Stance, Alternating Feet on 4 Steps w/Supervision Stair Unsupported Tandem Stance Small Step- 30 seconds Unilateral Leg Stance Lifts Leg/Unable to Hold Total Score Yanez Total Score (out of 56 points) 45 Yanez Impairment Rating 1 to 19% Impaired (Score 45-55 ) Mensah Fall Scale Copyright Permission PT-OP-E Functional Tests Start: 02/20/19 13:46 Freq: Status: Active Protocol: Document 08/13/19 13:40 DCW (Rec: 08/13/19 14:02 DCW [id number]) Functional Tests 2 Minute Walk Test Distance 237 Device Used SPC Comments 1.98 ft/sec Dynamic Gait Index (DGI) Score 16/24 DGI Impairment Rating 20 to <40% Impaired (Score 15- 19) PT-OP-F Manual Assessment Start: 10/04/17 14:21 Freq: Status: Active Protocol: Document 05/21/19 14:30 DCW (Rec: 05/21/19 15:12 DCW [id number]) Manual Assessments Soft Tissue Assessment Soft Tissue Mobility Assessment Moderate tone in Bilateral thoracic and lumbar paraspinals, piriformis, iliopsoas, and quadratus lumborum. Mild tone in bilateral hamstrings and adductor vinod PT-OP-J Posture/Palpation/Skin Start: 10/04/17 14:21 Freq: Status: Active Protocol: Document 08/13/19 13:40 DCW (Rec: 08/13/19 14:02 DCW [id number]) Posture Evaluation Comments Posture Comments Pt's jorge with cues to stand as tall as possible: 5' 1/4 / c 3/4 heel PT-OP-K Range of Motion Start: 10/04/17 14:21 Freq: Status: Active Protocol: Document 08/13/19 13:40 DCW (Rec: 08/13/19 14:02 DCW [id number]) Lumbar Spine Range of Motion Lumbar Spine Active Degrees Testing Position Standing Comments Max extension, pt is forward flexed 5? at her thoracic spine Shoulder Goniometric Range of Motion Shoulder Left Active Shoulder ROM WFL No Testing Position Sitting Flexion 157 Abduction 148 External Rotation at 0 degrees Abduction 60 Right Active Shoulder ROM WFL No Testing Position Sitting Flexion 135 Abduction 124 External Rotation at 0 degrees Abduction 60 PT-OP-M Strength Start: 10/04/17 14:21 Freq: Status: Active Protocol: Document 12/18/18 13:45 DCW (Rec: 12/18/18 14:23 DCW [id number]) Shoulder Strength Shoulder Manual Muscle Testing Right Flexion 4 Good Abduction (C5) 4+ Good+ External Rotation 4+ Good+ Internal Rotation 5 Normal Left Flexion 4 Good Abduction (C5) 4+ Good+ External Rotation 4+ Good+ Internal Rotation 5 Normal PT-OP-Q Treatments Start: 08/06/17 17:30 Freq: Status: Active Protocol: Document 10/15/19 12:00 DCW (Rec: 10/15/19 12:44 DCW [id number]) Cardio Equipment Upper Body Ergometer (UBE) Duration (Minutes) 5 RPM 60 Seat Position 13 Height 3 Gym Equipment Shuttle Balance Red Details Eyes open/closed, Staggered Stance Therapeutic Exercises Supine Exercises 1 Supine Exercise Name Supine on Towel roll at T10-12 Side bilateral Comments increase thoracolumbar extension Manual Therapy Treatment Soft Tissue Mobilization 4 Body Location Piriformis Mobilization Type Strumming,Sustained Pressure, Trigger Point Release Intensity/Depth Deep Body Position Sidelying 3 Body Location Quadratus Lumborum Mobilization Type Myofascial Release,Strumming, Sustained Pressure Intensity/Depth Moderate Body Position Sidelying 2 Body Location Glute Med Mobilization Type Strumming,Sustained Pressure Intensity/Depth Moderate Body Position Sidelying 1 Body Location Lumbar Erector Spinae Mobilization Type Myofascial Release,Sustained Pressure Intensity/Depth Moderate Body Position Sidelying Joint Mobilizations 1 Joint Thoracic Spine Direction P->A Grade III Body Position Sidelying Manual Traction Lumbar Details Hip/Iliac crest depression Body Position Sidelying Comments MWM PT-OP-R Modalities Start: 08/06/17 17:30 Freq: Status: Active Protocol: Document 10/15/19 12:00 DCW (Rec: 10/15/19 12:44 DCW [id number]) Electric Stimulation Electric Stimulation Interferential Current (IFC) Body Location Lumbar Spine Duration (Minutes) 15 Patient Position Sitting Combined With Heat/Cold Hot Pack PT-OP-T Assessment and Plan Start: 08/06/17 17:30 Freq: Status: Active Protocol: Document 10/15/19 12:00 DCW (Rec: 10/15/19 12:44 DCW [id number]) Physical Therapy Assessment Impairments Impairments Activity Tolerance,Balance, Functional Activities, Functional Mobility,Gait,Pain, Posture,ROM,Soft Tissue Mobility,Strength,Tone Goals Seven Impairment Pt displays increased falls risk Short Term Goal (STG) Pt to score a 47/56 on the Yanez Balance Scale to demonstrate a decreased falls risk STG Duration 09/13/19 - Improving 45/56 Care Home Goal (LTG) Pt to score a 18/24 on the DGI - MET New Goal: LTG Duration 10/13/19 - Declined to Six Impairment Difficulty of getting in the car Care Home Goal (LTG) Patient will get in to the car with proper mechanics without difficulty or low back pain LTG Duration Met Five Impairment Difficulty of lifting laundry from floor to shoulder level Burnisher Goal (LTG) Patient will learn good lifting mechanics to prevent further low back pain. LTG Duration 10/13/19 Four Impairment Palpable muscle tone Care Home Goal (LTG) Pt muscle tone grossly to mild levels of tone 08/13/1973-Lji-Jbkcnr tone LTG Duration 10/13/19 Three Impairment Thoracic Spine ROM Short Term Goal (STG) Thoracic spine to lacking 10 degrees from neutral at full extension STG Duration Met Burnisher Goal (LTG) Thoracic spine to neutral at full extension LTG Duration 10/13/19 - Decline to lacking 5 degrees Two Impairment Pain Burnisher Goal (LTG) Pt to report decreased pain to a max of 4/10 LTG Duration 10/13/19 One Impairment Activity tolerance Care Home Goal (LTG) Pt to tolerate gardening with no increased pain for three hours 08/13/19 - pt tolerating two hours of gardening with increased pain after 30 minutes LTG Duration 10/13/19 Assessment Summary Assessment Pt had some increased tone in thoracic paraspinals, but overall showing improved mobility today. Physical Therapy Plan Frequency and Duration Frequency of Treatment 1x/Week Duration of Treatment 3 months Plan of Care Start Date 08/13/19 Plan of Care End Date 11/11/19 Therapeutic Interventions Therapeutic Interventions Aquatic Therapy,Home Exercise Program,Joint Mobilizations, Manual Therapy,Neuromuscular Re-education,Self-Care/Home Management,Soft Tissue Mobilization,Therapeutic Exercises Modalities Cold Pack/Ice Massage,Electric Stimulation,Hot Packs Next Visit Focus/Plan Next Note Type Treatment Note Next Visit Plan Balance training, posture training, shoulder/scapular strengthening, STM
--- NOTE | 2019-10-22 16:45 | PT.OTN ---
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) Pain in thoracic spine (10/22/19) Physical Therapy Treatment Note PT-OP-A Visit Information Start: 08/06/17 17:30 Freq: Status: Active Protocol: Document 10/22/19 16:10 DCW (Rec: 10/22/19 16:44 DCW [id number]) Out-Patient Physical Therapy Visit Information Visit Information Visit Type Treatment Note Visit Note 10 min late Visit Start Time 16:10 Visit Stop Time 16:45 Total Visit Minutes 35 Visit Number 99 Number of PORTABLE GRINDING MACHINE OPERATOR Visits 0 Evaluation Information Evaluation Date 05/28/17 PT-OP-B Current Condition Start: 10/04/17 14:21 Freq: Status: Active Protocol: Document 02/20/19 13:45 DCW (Rec: 02/20/19 14:36 DCW [id number]) Current Condition History of Current Condition History of Current Condition Please see patient's chart in Therapy Source for complete history and initial evaluation ADDENDEM 02/20/19: Pt has a new referral to work on balance and gait. Pt notes she doesn't have any recent falls , but that's because I'm good at grabbing things before I go down. Pt has been using a SPC for assistance, and has recently gotten a FWW, although she has yet to use it . Pt admits that she has not been picking my feet up very well. PT-OP-C Subjective Start: 08/06/17 17:30 Freq: Status: Active Protocol: Document 10/22/19 16:10 DCW (Rec: 10/22/19 16:44 DCW [id number]) OP-PT Subjective Patient Comments Patient Comments Pt reports her back and ribs are sore today, but the rest of me is actually feeling pretty good. PT-OP-D Balance Start: 02/20/19 13:46 Freq: Status: Active Protocol: Document 05/21/19 14:30 DCW (Rec: 05/21/19 15:12 DCW [id number]) OP-PT Balance Assessment Sitting Balance Static Sitting Balance Ability Good Dynamic Sitting Balance Ability Good Standing Balance Static Standing Balance Ability Fair Dynamic Standing Balance Ability Fair Balance Tests Yanez Balance Test Yanez Balance Test Score 45/56 Yanez Impairment Rating 1 to 19% Impaired (Score 45-55 ) Yanez Balance Assessment Evaluation Sitting to Standing Ability Independent w/out Hands Unsupported Stance Safely- 2 minutes Sitting Unsupported, Feet on Floor Safely- 2 minutes Standing to Sitting Ability Safely, Minimal Hand Use Transfer Ability Safely, Minimal Hand Use Unsupported Stance- Eyes Closed Safely, 10 seconds Unsupported Stance- Eyes Open Independent, 1 minute Reaching Forward Standing Safely, 5 inches Pick- Up Object From Floor Independent/Safe Look Behind Shoulder - Standing Shifts Weight Unilateral Turning 360 Degrees Turns slowly, but safely Unsupported Stance, Alternating Feet on 4 Steps w/Supervision Stair Unsupported Tandem Stance Small Step- 30 seconds Unilateral Leg Stance Lifts Leg/Unable to Hold Total Score Yanez Total Score (out of 56 points) 45 Yanez Impairment Rating 1 to 19% Impaired (Score 45-55 ) Mensah Fall Scale Copyright Permission PT-OP-E Functional Tests Start: 02/20/19 13:46 Freq: Status: Active Protocol: Document 08/13/19 13:40 DCW (Rec: 08/13/19 14:02 DCW [id number]) Functional Tests 2 Minute Walk Test Distance 237 Device Used SPC Comments 1.98 ft/sec Dynamic Gait Index (DGI) Score 16/24 DGI Impairment Rating 20 to <40% Impaired (Score 15- 19) PT-OP-F Manual Assessment Start: 10/04/17 14:21 Freq: Status: Active Protocol: Document 05/21/19 14:30 DCW (Rec: 05/21/19 15:12 DCW [id number]) Manual Assessments Soft Tissue Assessment Soft Tissue Mobility Assessment Moderate tone in Bilateral thoracic and lumbar paraspinals, piriformis, iliopsoas, and quadratus lumborum. Mild tone in bilateral hamstrings and adductor vinod PT-OP-J Posture/Palpation/Skin Start: 10/04/17 14:21 Freq: Status: Active Protocol: Document 08/13/19 13:40 DCW (Rec: 08/13/19 14:02 DCW [id number]) Posture Evaluation Comments Posture Comments Pt's jorge with cues to stand as tall as possible: 5' 1/4 / c 3/4 heel PT-OP-K Range of Motion Start: 10/04/17 14:21 Freq: Status: Active Protocol: Document 08/13/19 13:40 DCW (Rec: 08/13/19 14:02 DCW [id number]) Lumbar Spine Range of Motion Lumbar Spine Active Degrees Testing Position Standing Comments Max extension, pt is forward flexed 5? at her thoracic spine Shoulder Goniometric Range of Motion Shoulder Left Active Shoulder ROM WFL No Testing Position Sitting Flexion 157 Abduction 148 External Rotation at 0 degrees Abduction 60 Right Active Shoulder ROM WFL No Testing Position Sitting Flexion 135 Abduction 124 External Rotation at 0 degrees Abduction 60 PT-OP-M Strength Start: 10/04/17 14:21 Freq: Status: Active Protocol: Document 12/18/18 13:45 DCW (Rec: 12/18/18 14:23 DCW [id number]) Shoulder Strength Shoulder Manual Muscle Testing Right Flexion 4 Good Abduction (C5) 4+ Good+ External Rotation 4+ Good+ Internal Rotation 5 Normal Left Flexion 4 Good Abduction (C5) 4+ Good+ External Rotation 4+ Good+ Internal Rotation 5 Normal PT-OP-Q Treatments Start: 08/06/17 17:30 Freq: Status: Active Protocol: Document 10/22/19 16:10 DCW (Rec: 10/22/19 16:44 DCW [id number]) Cardio Equipment Upper Body Ergometer (UBE) Duration (Minutes) 5 RPM 60 Seat Position 13 Height 3 Therapeutic Exercises Supine Exercises 1 Supine Exercise Name Supine on Towel roll at T10-12 Side bilateral Comments increase thoracolumbar extension Manual Therapy Treatment Soft Tissue Mobilization 4 Body Location Piriformis Mobilization Type Strumming,Sustained Pressure, Trigger Point Release Intensity/Depth Deep Body Position Sidelying 3 Body Location Quadratus Lumborum Mobilization Type Myofascial Release,Strumming, Sustained Pressure Intensity/Depth Moderate Body Position Sidelying 2 Body Location Glute Med Mobilization Type Strumming,Sustained Pressure Intensity/Depth Moderate Body Position Sidelying 1 Body Location Lumbar Erector Spinae Mobilization Type Myofascial Release,Sustained Pressure Intensity/Depth Moderate Body Position Sidelying Joint Mobilizations 1 Joint Thoracic Spine Direction P->A Grade III Body Position Sidelying Manual Traction Lumbar Details Hip/Iliac crest depression Body Position Sidelying Comments MWM PT-OP-R Modalities Start: 08/06/17 17:30 Freq: Status: Active Protocol: Document 10/15/19 12:00 DCW (Rec: 10/15/19 12:44 DCW [id number]) Electric Stimulation Electric Stimulation Interferential Current (IFC) Body Location Lumbar Spine Duration (Minutes) 15 Patient Position Sitting Combined With Heat/Cold Hot Pack PT-OP-T Assessment and Plan Start: 08/06/17 17:30 Freq: Status: Active Protocol: Document 10/22/19 16:10 DCW (Rec: 10/22/19 16:44 DCW [id number]) Physical Therapy Assessment Impairments Impairments Activity Tolerance,Balance, Functional Activities, Functional Mobility,Gait,Pain, Posture,ROM,Soft Tissue Mobility,Strength,Tone Goals Seven Impairment Pt displays increased falls risk Short Term Goal (STG) Pt to score a 47/56 on the Yanez Balance Scale to demonstrate a decreased falls risk STG Duration 09/13/19 - Improving 45/56 Lithographic Proofer Goal (LTG) Pt to score a 18/24 on the DGI - MET New Goal: LTG Duration 10/13/19 - Declined to Six Impairment Difficulty of getting in the car [facility] Goal (LTG) Patient will get in to the car with proper mechanics without difficulty or low back pain LTG Duration Met Five Impairment Difficulty of lifting laundry from floor to shoulder level Lithographic Proofer Goal (LTG) Patient will learn good lifting mechanics to prevent further low back pain. LTG Duration 10/13/19 Four Impairment Palpable muscle tone Lithographic Proofer Goal (LTG) Pt muscle tone grossly to mild levels of tone 08/13/1925-Nxe-Rqhhis tone LTG Duration 10/13/19 Three Impairment Thoracic Spine ROM Short Term Goal (STG) Thoracic spine to lacking 10 degrees from neutral at full extension STG Duration Met [facility] Goal (LTG) Thoracic spine to neutral at full extension LTG Duration 10/13/19 - Decline to lacking 5 degrees Two Impairment Pain Lithographic Proofer Goal (LTG) Pt to report decreased pain to a max of 4/10 LTG Duration 10/13/19 One Impairment Activity tolerance [facility] Goal (LTG) Pt to tolerate gardening with no increased pain for three hours 08/13/19 - pt tolerating two hours of gardening with increased pain after 30 minutes LTG Duration 10/13/19 Assessment Summary Assessment Pt refused e-stim today, not having a great day and would rather just go home. Pt tolerated treatment well today . Physical Therapy Plan Frequency and Duration Frequency of Treatment 1x/Week Duration of Treatment 3 months Plan of Care Start Date 08/13/19 Plan of Care End Date 11/11/19 Therapeutic Interventions Therapeutic Interventions Aquatic Therapy,Home Exercise Program,Joint Mobilizations, Manual Therapy,Neuromuscular Re-education,Self-Care/Home Management,Soft Tissue Mobilization,Therapeutic Exercises Modalities Cold Pack/Ice Massage,Electric Stimulation,Hot Packs Next Visit Focus/Plan Next Note Type Treatment Note Next Visit Plan Balance training, posture training, shoulder/scapular strengthening, STM
--- NOTE | 2019-10-29 16:44 | PT.OTN ---
Current Diagnoses Scoliosis, unspecified (10/29/19) Spondylosis without myelopathy or radiculopathy, cervical region (10/29/19) Pain in thoracic spine (10/29/19) Physical Therapy Treatment Note PT-OP-A Visit Information Start: 08/06/17 17:30 Freq: Status: Active Protocol: Document 10/29/19 16:00 DCW (Rec: 10/29/19 16:43 DCW [id number]) Out-Patient Physical Therapy Visit Information Visit Information Visit Type Treatment Note Visit Start Time 16:00 Visit Stop Time 16:45 Total Visit Minutes 45 Visit Number 100 Number of SURGERY ATTENDANT Visits 0 Evaluation Information Evaluation Date 05/28/17 PT-OP-B Current Condition Start: 10/04/17 14:21 Freq: Status: Active Protocol: Document 02/20/19 13:45 DCW (Rec: 02/20/19 14:36 DCW [id number]) Current Condition History of Current Condition History of Current Condition Please see patient's chart in Therapy Source for complete history and initial evaluation ADDENDEM 02/20/19: Pt has a new referral to work on balance and gait. Pt notes she doesn't have any recent falls , but that's because I'm good at grabbing things before I go down. Pt has been using a SPC for assistance, and has recently gotten a FWW, although she has yet to use it . Pt admits that she has not been picking my feet up very well. PT-OP-C Subjective Start: 08/06/17 17:30 Freq: Status: Active Protocol: Document 10/29/19 16:00 DCW (Rec: 10/29/19 16:43 DCW [id number]) OP-PT Subjective Patient Comments Patient Comments Pt reports her right lower back is bothering her a lot today. Also notes that she is very fatigued after spending four hours in her yard gardening. PT-OP-D Balance Start: 02/20/19 13:46 Freq: Status: Active Protocol: Document 05/21/19 14:30 DCW (Rec: 05/21/19 15:12 DCW [id number]) OP-PT Balance Assessment Sitting Balance Static Sitting Balance Ability Good Dynamic Sitting Balance Ability Good Standing Balance Static Standing Balance Ability Fair Dynamic Standing Balance Ability Fair Balance Tests Yanez Balance Test Yanez Balance Test Score 45/56 Yanez Impairment Rating 1 to 19% Impaired (Score 45-55 ) Yanez Balance Assessment Evaluation Sitting to Standing Ability Independent w/out Hands Unsupported Stance Safely- 2 minutes Sitting Unsupported, Feet on Floor Safely- 2 minutes Standing to Sitting Ability Safely, Minimal Hand Use Transfer Ability Safely, Minimal Hand Use Unsupported Stance- Eyes Closed Safely, 10 seconds Unsupported Stance- Eyes Open Independent, 1 minute Reaching Forward Standing Safely, 5 inches Pick- Up Object From Floor Independent/Safe Look Behind Shoulder - Standing Shifts Weight Unilateral Turning 360 Degrees Turns slowly, but safely Unsupported Stance, Alternating Feet on 4 Steps w/Supervision Stair Unsupported Tandem Stance Small Step- 30 seconds Unilateral Leg Stance Lifts Leg/Unable to Hold Total Score Yanez Total Score (out of 56 points) 45 Yanez Impairment Rating 1 to 19% Impaired (Score 45-55 ) Mensah Fall Scale Copyright Permission PT-OP-E Functional Tests Start: 02/20/19 13:46 Freq: Status: Active Protocol: Document 08/13/19 13:40 DCW (Rec: 08/13/19 14:02 DCW [id number]) Functional Tests 2 Minute Walk Test Distance 237 Device Used SPC Comments 1.98 ft/sec Dynamic Gait Index (DGI) Score 16/24 DGI Impairment Rating 20 to <40% Impaired (Score 15- 19) PT-OP-F Manual Assessment Start: 10/04/17 14:21 Freq: Status: Active Protocol: Document 05/21/19 14:30 DCW (Rec: 05/21/19 15:12 DCW [id number]) Manual Assessments Soft Tissue Assessment Soft Tissue Mobility Assessment Moderate tone in Bilateral thoracic and lumbar paraspinals, piriformis, iliopsoas, and quadratus lumborum. Mild tone in bilateral hamstrings and adductor vinod PT-OP-J Posture/Palpation/Skin Start: 10/04/17 14:21 Freq: Status: Active Protocol: Document 08/13/19 13:40 DCW (Rec: 08/13/19 14:02 DCW [id number]) Posture Evaluation Comments Posture Comments Pt's jorge with cues to stand as tall as possible: 5' 1/4 / c 3/4 heel PT-OP-K Range of Motion Start: 10/04/17 14:21 Freq: Status: Active Protocol: Document 08/13/19 13:40 DCW (Rec: 08/13/19 14:02 DCW [id number]) Lumbar Spine Range of Motion Lumbar Spine Active Degrees Testing Position Standing Comments Max extension, pt is forward flexed 5? at her thoracic spine Shoulder Goniometric Range of Motion Shoulder Left Active Shoulder ROM WFL No Testing Position Sitting Flexion 157 Abduction 148 External Rotation at 0 degrees Abduction 60 Right Active Shoulder ROM WFL No Testing Position Sitting Flexion 135 Abduction 124 External Rotation at 0 degrees Abduction 60 PT-OP-M Strength Start: 10/04/17 14:21 Freq: Status: Active Protocol: Document 12/18/18 13:45 DCW (Rec: 12/18/18 14:23 DCW [id number]) Shoulder Strength Shoulder Manual Muscle Testing Right Flexion 4 Good Abduction (C5) 4+ Good+ External Rotation 4+ Good+ Internal Rotation 5 Normal Left Flexion 4 Good Abduction (C5) 4+ Good+ External Rotation 4+ Good+ Internal Rotation 5 Normal PT-OP-Q Treatments Start: 08/06/17 17:30 Freq: Status: Active Protocol: Document 10/29/19 16:00 DCW (Rec: 10/29/19 16:43 DCW [id number]) Cardio Equipment Upper Body Ergometer (UBE) Duration (Minutes) 5 RPM 60 Seat Position 13 Height 3 Therapeutic Exercises Supine Exercises 1 Supine Exercise Name Supine on Towel roll at T10-12 Side bilateral Comments increase thoracolumbar extension Manual Therapy Treatment Soft Tissue Mobilization 4 Body Location Piriformis Mobilization Type Strumming,Sustained Pressure, Trigger Point Release Intensity/Depth Deep Body Position Sidelying 3 Body Location Quadratus Lumborum Mobilization Type Myofascial Release,Strumming, Sustained Pressure Intensity/Depth Moderate Body Position Sidelying 2 Body Location Glute Med Mobilization Type Strumming,Sustained Pressure Intensity/Depth Moderate Body Position Sidelying 1 Body Location Lumbar Erector Spinae Mobilization Type Myofascial Release,Sustained Pressure Intensity/Depth Moderate Body Position Sidelying Joint Mobilizations 1 Joint Thoracic Spine Direction P->A Grade III Body Position Sidelying Manual Traction Lumbar Details Hip/Iliac crest depression Body Position Sidelying Comments MWM PT-OP-R Modalities Start: 08/06/17 17:30 Freq: Status: Active Protocol: Document 10/29/19 16:00 DCW (Rec: 10/29/19 16:44 DCW [id number]) Electric Stimulation Electric Stimulation Interferential Current (IFC) Body Location Lumbar Spine Duration (Minutes) 15 Patient Position Sitting Combined With Heat/Cold Hot Pack PT-OP-T Assessment and Plan Start: 08/06/17 17:30 Freq: Status: Active Protocol: Document 10/29/19 16:00 DCW (Rec: 10/29/19 16:43 DCW [id number]) Physical Therapy Assessment Impairments Impairments Activity Tolerance,Balance, Functional Activities, Functional Mobility,Gait,Pain, Posture,ROM,Soft Tissue Mobility,Strength,Tone Goals Seven Impairment Pt displays increased falls risk Short Term Goal (STG) Pt to score a 47/56 on the Yanez Balance Scale to demonstrate a decreased falls risk STG Duration 09/13/19 - Improving 45/56 Greens Keeper Goal (LTG) Pt to score a 18/24 on the DGI - MET New Goal: LTG Duration 10/13/19 - Declined to Six Impairment Difficulty of getting in the car Greens Keeper Goal (LTG) Patient will get in to the car with proper mechanics without difficulty or low back pain LTG Duration Met Five Impairment Difficulty of lifting laundry from floor to shoulder level Greens Keeper Goal (LTG) Patient will learn good lifting mechanics to prevent further low back pain. LTG Duration 10/13/19 Four Impairment Palpable muscle tone Greens Keeper Goal (LTG) Pt muscle tone grossly to mild levels of tone 08/13/1985-Ste-Ahxqum tone LTG Duration 10/13/19 Three Impairment Thoracic Spine ROM Short Term Goal (STG) Thoracic spine to lacking 10 degrees from neutral at full extension STG Duration Met [facility] Goal (LTG) Thoracic spine to neutral at full extension LTG Duration 10/13/19 - Decline to lacking 5 degrees Two Impairment Pain Fdc Goal (LTG) Pt to report decreased pain to a max of 4/10 LTG Duration 10/13/19 One Impairment Activity tolerance [facility]dc Goal (LTG) Pt to tolerate gardening with no increased pain for three hours 08/13/19 - pt tolerating two hours of gardening with increased pain after 30 minutes LTG Duration 10/13/19 Assessment Summary Assessment Pt clearly very sore and fatigued today, increased tone throughout her low back. Pt moving slowly today, but able to participate in all activities. Physical Therapy Plan Frequency and Duration Frequency of Treatment 1x/Week Duration of Treatment 3 months Plan of Care Start Date 08/13/19 Plan of Care End Date 11/11/19 Therapeutic Interventions Therapeutic Interventions Aquatic Therapy,Home Exercise Program,Joint Mobilizations, Manual Therapy,Neuromuscular Re-education,Self-Care/Home Management,Soft Tissue Mobilization,Therapeutic Exercises Modalities Cold Pack/Ice Massage,Electric Stimulation,Hot Packs Next Visit Focus/Plan Next Note Type Treatment Note Next Visit Plan Balance training, posture training, shoulder/scapular strengthening, STM
--- NOTE | 2019-11-05 12:43 | PT.OTN ---
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) Pain in thoracic spine (11/05/19) Physical Therapy Treatment Note PT-OP-A Visit Information Start: 08/06/17 17:30 Freq: Status: Active Protocol: Document 11/05/19 12:00 DCW (Rec: 11/05/19 12:43 DCW [id number]) Out-Patient Physical Therapy Visit Information Visit Information Visit Type Treatment Note Visit Start Time 12:00 Visit Stop Time 12:45 Total Visit Minutes 45 Visit Number 101 Number of CULINARY ARTIST Visits 0 Evaluation Information Evaluation Date 05/28/17 PT-OP-B Current Condition Start: 10/04/17 14:21 Freq: Status: Active Protocol: Document 02/20/19 13:45 DCW (Rec: 02/20/19 14:36 DCW [id number]) Current Condition History of Current Condition History of Current Condition Please see patient's chart in Therapy Source for complete history and initial evaluation ADDENDEM 02/20/19: Pt has a new referral to work on balance and gait. Pt notes she doesn't have any recent falls , but that's because I'm good at grabbing things before I go down. Pt has been using a SPC for assistance, and has recently gotten a FWW, although she has yet to use it . Pt admits that she has not been picking my feet up very well. PT-OP-C Subjective Start: 08/06/17 17:30 Freq: Status: Active Protocol: Document 11/05/19 12:00 DCW (Rec: 11/05/19 12:43 DCW [id number]) OP-PT Subjective Patient Comments Patient Comments Pt reports her shoulders feel good today, but her back/ribs are sore. PT-OP-D Balance Start: 02/20/19 13:46 Freq: Status: Active Protocol: Document 05/21/19 14:30 DCW (Rec: 05/21/19 15:12 DCW [id number]) OP-PT Balance Assessment Sitting Balance Static Sitting Balance Ability Good Dynamic Sitting Balance Ability Good Standing Balance Static Standing Balance Ability Fair Dynamic Standing Balance Ability Fair Balance Tests Yanez Balance Test Yanez Balance Test Score 45/56 Yanez Impairment Rating 1 to 19% Impaired (Score 45-55 ) Yanez Balance Assessment Evaluation Sitting to Standing Ability Independent w/out Hands Unsupported Stance Safely- 2 minutes Sitting Unsupported, Feet on Floor Safely- 2 minutes Standing to Sitting Ability Safely, Minimal Hand Use Transfer Ability Safely, Minimal Hand Use Unsupported Stance- Eyes Closed Safely, 10 seconds Unsupported Stance- Eyes Open Independent, 1 minute Reaching Forward Standing Safely, 5 inches Pick- Up Object From Floor Independent/Safe Look Behind Shoulder - Standing Shifts Weight Unilateral Turning 360 Degrees Turns slowly, but safely Unsupported Stance, Alternating Feet on 4 Steps w/Supervision Stair Unsupported Tandem Stance Small Step- 30 seconds Unilateral Leg Stance Lifts Leg/Unable to Hold Total Score Yanez Total Score (out of 56 points) 45 Yanez Impairment Rating 1 to 19% Impaired (Score 45-55 ) Mensah Fall Scale Copyright Permission PT-OP-E Functional Tests Start: 02/20/19 13:46 Freq: Status: Active Protocol: Document 08/13/19 13:40 DCW (Rec: 08/13/19 14:02 DCW [id number]) Functional Tests 2 Minute Walk Test Distance 237 Device Used SPC Comments 1.98 ft/sec Dynamic Gait Index (DGI) Score 16/24 DGI Impairment Rating 20 to <40% Impaired (Score 15- 19) PT-OP-F Manual Assessment Start: 10/04/17 14:21 Freq: Status: Active Protocol: Document 05/21/19 14:30 DCW (Rec: 05/21/19 15:12 DCW [id number]) Manual Assessments Soft Tissue Assessment Soft Tissue Mobility Assessment Moderate tone in Bilateral thoracic and lumbar paraspinals, piriformis, iliopsoas, and quadratus lumborum. Mild tone in bilateral hamstrings and adductor vinod PT-OP-J Posture/Palpation/Skin Start: 10/04/17 14:21 Freq: Status: Active Protocol: Document 08/13/19 13:40 DCW (Rec: 08/13/19 14:02 DCW [id number]) Posture Evaluation Comments Posture Comments Pt's jorge with cues to stand as tall as possible: 5' 1/4 / c 3/4 heel PT-OP-K Range of Motion Start: 10/04/17 14:21 Freq: Status: Active Protocol: Document 08/13/19 13:40 DCW (Rec: 08/13/19 14:02 DCW [id number]) Lumbar Spine Range of Motion Lumbar Spine Active Degrees Testing Position Standing Comments Max extension, pt is forward flexed 5? at her thoracic spine Shoulder Goniometric Range of Motion Shoulder Left Active Shoulder ROM WFL No Testing Position Sitting Flexion 157 Abduction 148 External Rotation at 0 degrees Abduction 60 Right Active Shoulder ROM WFL No Testing Position Sitting Flexion 135 Abduction 124 External Rotation at 0 degrees Abduction 60 PT-OP-M Strength Start: 10/04/17 14:21 Freq: Status: Active Protocol: Document 12/18/18 13:45 DCW (Rec: 12/18/18 14:23 DCW [id number]) Shoulder Strength Shoulder Manual Muscle Testing Right Flexion 4 Good Abduction (C5) 4+ Good+ External Rotation 4+ Good+ Internal Rotation 5 Normal Left Flexion 4 Good Abduction (C5) 4+ Good+ External Rotation 4+ Good+ Internal Rotation 5 Normal PT-OP-Q Treatments Start: 08/06/17 17:30 Freq: Status: Active Protocol: Document 11/05/19 12:00 DCW (Rec: 11/05/19 12:43 DCW [id number]) Cardio Equipment Upper Body Ergometer (UBE) Duration (Minutes) 5 RPM 60 Seat Position 13 Height 3 Gym Equipment Shuttle Balance Red Details Eyes open/closed, Staggered Stance Therapeutic Exercises Supine Exercises 1 Supine Exercise Name Supine on Towel roll at T10-12 Side bilateral Comments increase thoracolumbar extension Manual Therapy Treatment Soft Tissue Mobilization 4 Body Location Piriformis Mobilization Type Strumming,Sustained Pressure, Trigger Point Release Intensity/Depth Deep Body Position Sidelying 3 Body Location Quadratus Lumborum Mobilization Type Myofascial Release,Strumming, Sustained Pressure Intensity/Depth Moderate Body Position Sidelying 2 Body Location Glute Med Mobilization Type Strumming,Sustained Pressure Intensity/Depth Moderate Body Position Sidelying 1 Body Location Lumbar Erector Spinae Mobilization Type Myofascial Release,Sustained Pressure Intensity/Depth Moderate Body Position Sidelying Joint Mobilizations 1 Joint Thoracic Spine Direction P->A Grade III Body Position Sidelying Manual Traction Lumbar Details Hip/Iliac crest depression Body Position Sidelying Comments MWM PT-OP-R Modalities Start: 08/06/17 17:30 Freq: Status: Active Protocol: Document 11/05/19 12:00 DCW (Rec: 11/05/19 12:43 DCW [id number]) Electric Stimulation Electric Stimulation Interferential Current (IFC) Body Location Lumbar Spine Duration (Minutes) 15 Patient Position Sitting Combined With Heat/Cold Hot Pack PT-OP-T Assessment and Plan Start: 08/06/17 17:30 Freq: Status: Active Protocol: Document 11/05/19 12:00 DCW (Rec: 11/05/19 12:43 DCW [id number]) Physical Therapy Assessment Impairments Impairments Activity Tolerance,Balance, Functional Activities, Functional Mobility,Gait,Pain, Posture,ROM,Soft Tissue Mobility,Strength,Tone Goals Seven Impairment Pt displays increased falls risk Short Term Goal (STG) Pt to score a 47/56 on the Yanez Balance Scale to demonstrate a decreased falls risk STG Duration 09/13/19 - Improving 45/56 Manager Enterprise Content Management Goal (LTG) Pt to score a 18/24 on the DGI - MET New Goal: LTG Duration 10/13/19 - Declined to Six Impairment Difficulty of getting in the car Manager [employer] Management Goal (LTG) Patient will get in to the car with proper mechanics without difficulty or low back pain LTG Duration Met Five Impairment Difficulty of lifting laundry from floor to shoulder level Manager [employer] Management Goal (LTG) Patient will learn good lifting mechanics to prevent further low back pain. LTG Duration 10/13/19 Four Impairment Palpable muscle tone Mcfp Goal (LTG) Pt muscle tone grossly to mild levels of tone 08/13/1967-Hvm-Xsuelf tone LTG Duration 10/13/19 Three Impairment Thoracic Spine ROM Short Term Goal (STG) Thoracic spine to lacking 10 degrees from neutral at full extension STG Duration Met Manager [employer] Management Goal (LTG) Thoracic spine to neutral at full extension LTG Duration 10/13/19 - Decline to lacking 5 degrees Two Impairment Pain Mcfp Goal (LTG) Pt to report decreased pain to a max of 4/10 LTG Duration 10/13/19 One Impairment Activity tolerance Mcfp Goal (LTG) Pt to tolerate gardening with no increased pain for three hours 08/13/19 - pt tolerating two hours of gardening with increased pain after 30 minutes LTG Duration 10/13/19 Assessment Summary Assessment Pt doing better today than she has been the past few weeks. Pt's left paraspinals doing very well, still fairly tight through the right. Physical Therapy Plan Frequency and Duration Frequency of Treatment 1x/Week Duration of Treatment 3 months Plan of Care Start Date 08/13/19 Plan of Care End Date 11/11/19 Therapeutic Interventions Therapeutic Interventions Aquatic Therapy,Home Exercise Program,Joint Mobilizations, Manual Therapy,Neuromuscular Re-education,Self-Care/Home Management,Soft Tissue Mobilization,Therapeutic Exercises Modalities Cold Pack/Ice Massage,Electric Stimulation,Hot Packs Next Visit Focus/Plan Next Note Type Treatment Note Next Visit Plan Balance training, posture training, shoulder/scapular strengthening, STM
--- NOTE | 2019-11-12 13:32 | PT.OTN ---
Current Diagnoses Scoliosis, unspecified (11/12/19) Spondylosis without myelopathy or radiculopathy, cervical region (11/12/19) Pain in thoracic spine (11/12/19) Physical Therapy Treatment Note PT-OP-A Visit Information Start: 08/06/17 17:30 Freq: Status: Active Protocol: Document 11/12/19 12:05 DCW (Rec: 11/12/19 13:32 DCW [id number]) Out-Patient Physical Therapy Visit Information Visit Information Visit Type Progress Note Visit Start Time 12:05 Visit Stop Time 12:55 Total Visit Minutes 50 Visit Number 102 Evaluation Information Evaluation Date 05/28/17 PT-OP-B Current Condition Start: 10/04/17 14:21 Freq: Status: Active Protocol: Document 02/20/19 13:45 DCW (Rec: 02/20/19 14:36 DCW [id number]) Current Condition History of Current Condition History of Current Condition Please see patient's chart in Therapy Source for complete history and initial evaluation ADDENDEM 02/20/19: Pt has a new referral to work on balance and gait. Pt notes she doesn't have any recent falls , but that's because I'm good at grabbing things before I go down. Pt has been using a SPC for assistance, and has recently gotten a FWW, although she has yet to use it . Pt admits that she has not been picking my feet up very well. PT-OP-C Subjective Start: 08/06/17 17:30 Freq: Status: Active Protocol: Document 11/12/19 12:05 DCW (Rec: 11/12/19 13:32 DCW [id number]) OP-PT Subjective Patient Comments Patient Comments Pt feeling a little stiff and sore today. PT-OP-D Balance Start: 02/20/19 13:46 Freq: Status: Active Protocol: Document 11/12/19 12:05 DCW (Rec: 11/12/19 12:44 DCW [id number]) Balance Tests Yanez Balance Test Yanez Balance Test Score 45/56 Yanez Impairment Rating 1 to 19% Impaired (Score 45-55 ) Yanez Balance Assessment Evaluation Sitting to Standing Ability Independent w/out Hands Unsupported Stance Safely- 2 minutes Sitting Unsupported, Feet on Floor Safely- 2 minutes Standing to Sitting Ability Safely, Minimal Hand Use Transfer Ability Safely, Minimal Hand Use Unsupported Stance- Eyes Closed Safely, 10 seconds Unsupported Stance- Eyes Open Independent, 1 minute Reaching Forward Standing Safely, 5 inches Pick- Up Object From Floor Independent/Safe Look Behind Shoulder - Standing Shifts Weight Unilateral Turning 360 Degrees Turns slowly, but safely Unsupported Stance, Alternating Feet on 2 Steps w/Minimum Assist Stair Unsupported Tandem Stance Holds Tandem- 30 seconds Unilateral Leg Stance Lifts Leg/Unable to Hold Total Score Yanez Total Score (out of 56 points) 45 Yanez Impairment Rating 1 to 19% Impaired (Score 45-55 ) PT-OP-E Functional Tests Start: 02/20/19 13:46 Freq: Status: Active Protocol: Document 11/12/19 12:05 DCW (Rec: 11/12/19 12:44 DCW [id number]) Functional Tests 2 Minute Walk Test Distance 240 Device Used none Comments 2.0 ft/sec Dynamic Gait Index (DGI) Score 18/24 DGI Impairment Rating 20 to <40% Impaired (Score 15- 19) PT-OP-F Manual Assessment Start: 10/04/17 14:21 Freq: Status: Active Protocol: Document 05/21/19 14:30 DCW (Rec: 05/21/19 15:12 DCW [id number]) Manual Assessments Soft Tissue Assessment Soft Tissue Mobility Assessment Moderate tone in Bilateral thoracic and lumbar paraspinals, piriformis, iliopsoas, and quadratus lumborum. Mild tone in bilateral hamstrings and adductor vinod PT-OP-J Posture/Palpation/Skin Start: 10/04/17 14:21 Freq: Status: Active Protocol: Document 11/12/19 12:05 DCW (Rec: 11/12/19 12:44 DCW [id number]) Posture Evaluation Position Standing Head/C-Spine Posture Forward Head T-Spine Posture Flexible Scoliosis on (L), Increased Kyphosis L-Spine Posture Flexible Scoliosis on (R) Pelvis Posture (L) Iliac Crest Superior Hip Posture (L) Flexed,(R) Flexed Comments Posture Comments Pt's jorge with cues to stand as tall as possible: 5' /c 1 heel heel PT-OP-K Range of Motion Start: 10/04/17 14:21 Freq: Status: Active Protocol: Document 11/12/19 12:05 DCW (Rec: 11/12/19 12:44 DCW [id number]) Lumbar Spine Range of Motion Lumbar Spine Active Degrees Testing Position Standing Comments Max extension, pt is forward flexed 5? at her thoracic spine Shoulder Goniometric Range of Motion Shoulder Left Active Shoulder ROM WFL No Testing Position Sitting Flexion 160 Abduction 152 External Rotation at 0 degrees Abduction 62 Right Active Shoulder ROM WFL No Testing Position Sitting Flexion 122 Abduction 105 External Rotation at 0 degrees Abduction 51 PT-OP-M Strength Start: 10/04/17 14:21 Freq: Status: Active Protocol: Document 12/18/18 13:45 DCW (Rec: 12/18/18 14:23 DCW [id number]) Shoulder Strength Shoulder Manual Muscle Testing Right Flexion 4 Good Abduction (C5) 4+ Good+ External Rotation 4+ Good+ Internal Rotation 5 Normal Left Flexion 4 Good Abduction (C5) 4+ Good+ External Rotation 4+ Good+ Internal Rotation 5 Normal PT-OP-Q Treatments Start: 08/06/17 17:30 Freq: Status: Active Protocol: Document 11/12/19 12:05 DCW (Rec: 11/12/19 13:32 DCW [id number]) Neuro Re-Education Treatment Other Activities Testing Details 2 MWT, DGI, Yanez PT-OP-R Modalities Start: 08/06/17 17:30 Freq: Status: Active Protocol: Document 11/12/19 12:05 DCW (Rec: 11/12/19 13:32 DCW [id number]) Electric Stimulation Electric Stimulation Interferential Current (IFC) Body Location Lumbar Spine Duration (Minutes) 15 Patient Position Sitting Combined With Heat/Cold Hot Pack PT-OP-T Assessment and Plan Start: 08/06/17 17:30 Freq: Status: Active Protocol: Document 11/12/19 12:05 DCW (Rec: 11/12/19 13:32 DCW [id number]) Physical Therapy Assessment Impairments Impairments Activity Tolerance,Balance, Functional Activities, Functional Mobility,Gait,Pain, Posture,ROM,Soft Tissue Mobility,Strength,Tone Goals Seven Impairment Pt displays increased falls risk Short Term Goal (STG) Pt to score a 47/56 on the Yanez Balance Scale to demonstrate a decreased falls risk STG Duration 12/13/19 - Improving 45/56 Assisted Goal (LTG) Pt to score a 18/24 on the DGI - MET New Goal: 21 LTG Duration 01/12/20 - Improving - 18 Six Impairment Difficulty of getting in the car Assisted Goal (LTG) Patient will get in to the car with proper mechanics without difficulty or low back pain LTG Duration Met Five Impairment Difficulty of lifting laundry from floor to shoulder level Assisted Goal (LTG) Patient will learn good lifting mechanics to prevent further low back pain. LTG Duration 01/12/20 Four Impairment Palpable muscle tone Evaluator Goal (LTG) Pt muscle tone grossly to mild levels of tone 08/13/1938-Ihc-Btwuvq tone LTG Duration 01/12/20 Three Impairment Thoracic Spine ROM Short Term Goal (STG) Thoracic spine to lacking 10 degrees from neutral at full extension STG Duration Met Assisted Goal (LTG) Thoracic spine to neutral at full extension LTG Duration 01/12/20 - Decline to lacking 5 degrees Two Impairment Pain Assisted Goal (LTG) Pt to report decreased pain to a max of 4/10 LTG Duration 01/12/20 One Impairment Activity tolerance Assisted Goal (LTG) Pt to tolerate gardening with no increased pain for three hours 08/13/19 - pt tolerating two hours of gardening with increased pain after 30 minutes LTG Duration 01/12/20 Assessment Summary Assessment Pt showing return to pre- coronavirus shut-down after a slight decline in function following the long lay-off. Yanez similar to previous scores of 45/65, DGI increased to 18/24, gait speed increased to 2 ft/sec during 2 MWT. Physical Therapy Plan Frequency and Duration Frequency of Treatment 1x/Week Duration of Treatment 3 months Plan of Care Start Date 11/12/19 Plan of Care End Date 02/10/20 Therapeutic Interventions Therapeutic Interventions Aquatic Therapy,Home Exercise Program,Joint Mobilizations, Manual Therapy,Neuromuscular Re-education,Self-Care/Home Management,Soft Tissue Mobilization,Therapeutic Exercises Modalities Cold Pack/Ice Massage,Electric Stimulation,Hot Packs Next Visit Focus/Plan Next Note Type Treatment Note Next Visit Plan Balance training, posture training, shoulder/scapular strengthening, STM
--- NOTE | 2019-11-12 13:33 | PT.OPPOC ---
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) Pain in thoracic spine (11/12/19) Visit Care Team Role Provider Type Jia Sheridan MD Attending Provider Physician Family Provider Primary Care Provider Specialty: [facility] Address: [address] [place] [address], [facility] [place], [place], [facility] Email: [email or web address] Plan Of Care PT-OP-T Assessment and Plan Start: 08/06/17 17:30 Freq: Status: Active Protocol: Document 11/12/19 12:05 DCW (Rec: 11/12/19 13:32 DCW [id number]) Physical Therapy Assessment Impairments Impairments Activity Tolerance,Balance, Functional Activities, Functional Mobility,Gait,Pain, Posture,ROM,Soft Tissue Mobility,Strength,Tone Goals Seven Impairment Pt displays increased falls risk Short Term Goal (STG) Pt to score a 47/56 on the Yanez Balance Scale to demonstrate a decreased falls risk STG Duration 12/13/19 - Improving 45/56 Mcfp Goal (LTG) Pt to score a 18/24 on the DGI - MET New Goal: LTG Duration 01/12/20 - Improving - Six Impairment Difficulty of getting in the car Senior Supply Chain Analyst Goal (LTG) Patient will get in to the car with proper mechanics without difficulty or low back pain LTG Duration Met Five Impairment Difficulty of lifting laundry from floor to shoulder level Senior Supply Chain Analyst Goal (LTG) Patient will learn good lifting mechanics to prevent further low back pain. LTG Duration 01/12/20 Four Impairment Palpable muscle tone Senior Supply Chain Analyst Goal (LTG) Pt muscle tone grossly to mild levels of tone 08/13/1931-Ljn-Ulpzzq tone LTG Duration 01/12/20 Three Impairment Thoracic Spine ROM Short Term Goal (STG) Thoracic spine to lacking 10 degrees from neutral at full extension STG Duration Met Senior Supply Chain Analyst Goal (LTG) Thoracic spine to neutral at full extension LTG Duration 01/12/20 - Decline to lacking 5 degrees Two Impairment Pain Senior Supply Chain Analyst Goal (LTG) Pt to report decreased pain to a max of 4/10 LTG Duration 01/12/20 One Impairment Activity tolerance Mcfp Goal (LTG) Pt to tolerate gardening with no increased pain for three hours 08/13/19 - pt tolerating two hours of gardening with increased pain after 30 minutes LTG Duration 01/12/20 Assessment Summary Assessment Pt showing return to pre- coronavirus shut-down after a slight decline in function following the long lay-off. Yanez similar to previous scores of 45/65, DGI increased to 18/24, gait speed increased to 2 ft/sec during 2 MWT. Physical Therapy Plan Frequency and Duration Frequency of Treatment 1x/Week Duration of Treatment 3 months Plan of Care Start Date 11/12/19 Plan of Care End Date 02/10/20 Therapeutic Interventions Therapeutic Interventions Aquatic Therapy,Home Exercise Program,Joint Mobilizations, Manual Therapy,Neuromuscular Re-education,Self-Care/Home Management,Soft Tissue Mobilization,Therapeutic Exercises Modalities Cold Pack/Ice Massage,Electric Stimulation,Hot Packs Next Visit Focus/Plan Next Note Type Treatment Note Next Visit Plan Balance training, posture training, shoulder/scapular strengthening, STM Plan of Care Dates Plan of Care Start Date 11/12/19 Plan of Care End Date 02/10/20 Electronically Signed by: Wallace Wilson, PT 11/12/19 [id number] Please Sign and Return: I have reviewed this Plan of Care and certify that the skilled therapy services above are required to meet the patient?s needs. Physician Signature Date Printed Name and Credentials Clinical Instructor Signature Printed Name and Credentials
--- NOTE | 2019-11-19 12:54 | PT.OTN ---
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) Pain in thoracic spine (11/19/19) Physical Therapy Treatment Note PT-OP-A Visit Information Start: 08/06/17 17:30 Freq: Status: Active Protocol: Document 11/19/19 12:00 DCW (Rec: 11/19/19 12:53 DCW [id number]) Out-Patient Physical Therapy Visit Information Visit Information Visit Type Treatment Note Visit Start Time 12:00 Visit Stop Time 12:55 Total Visit Minutes 55 Visit Number 103 Number of ELECTROSTATIC PAINTER Visits 0 Evaluation Information Evaluation Date 05/28/17 PT-OP-B Current Condition Start: 10/04/17 14:21 Freq: Status: Active Protocol: Document 02/20/19 13:45 DCW (Rec: 02/20/19 14:36 DCW [id number]) Current Condition History of Current Condition History of Current Condition Please see patient's chart in Therapy Source for complete history and initial evaluation ADDENDEM 02/20/19: Pt has a new referral to work on balance and gait. Pt notes she doesn't have any recent falls , but that's because I'm good at grabbing things before I go down. Pt has been using a SPC for assistance, and has recently gotten a FWW, although she has yet to use it . Pt admits that she has not been picking my feet up very well. PT-OP-C Subjective Start: 08/06/17 17:30 Freq: Status: Active Protocol: Document 11/19/19 12:00 DCW (Rec: 11/19/19 12:53 DCW [id number]) OP-PT Subjective Patient Comments Patient Comments I'm moving pretty slow this morning. I spent too much time in the garden yesterday, and I'm really paying for it today . PT-OP-D Balance Start: 02/20/19 13:46 Freq: Status: Active Protocol: Document 11/12/19 12:05 DCW (Rec: 11/12/19 12:44 DCW [id number]) Balance Tests Yanez Balance Test Yanez Balance Test Score 45/56 Yanez Impairment Rating 1 to 19% Impaired (Score 45-55 ) Yanez Balance Assessment Evaluation Sitting to Standing Ability Independent w/out Hands Unsupported Stance Safely- 2 minutes Sitting Unsupported, Feet on Floor Safely- 2 minutes Standing to Sitting Ability Safely, Minimal Hand Use Transfer Ability Safely, Minimal Hand Use Unsupported Stance- Eyes Closed Safely, 10 seconds Unsupported Stance- Eyes Open Independent, 1 minute Reaching Forward Standing Safely, 5 inches Pick- Up Object From Floor Independent/Safe Look Behind Shoulder - Standing Shifts Weight Unilateral Turning 360 Degrees Turns slowly, but safely Unsupported Stance, Alternating Feet on 2 Steps w/Minimum Assist Stair Unsupported Tandem Stance Holds Tandem- 30 seconds Unilateral Leg Stance Lifts Leg/Unable to Hold Total Score Yanez Total Score (out of 56 points) 45 Yanez Impairment Rating 1 to 19% Impaired (Score 45-55 ) PT-OP-E Functional Tests Start: 02/20/19 13:46 Freq: Status: Active Protocol: Document 11/12/19 12:05 DCW (Rec: 11/12/19 12:44 DCW [id number]) Functional Tests 2 Minute Walk Test Distance 240 Device Used none Comments 2.0 ft/sec Dynamic Gait Index (DGI) Score 18/24 DGI Impairment Rating 20 to <40% Impaired (Score 15- 19) PT-OP-F Manual Assessment Start: 10/04/17 14:21 Freq: Status: Active Protocol: Document 05/21/19 14:30 DCW (Rec: 05/21/19 15:12 DCW [id number]) Manual Assessments Soft Tissue Assessment Soft Tissue Mobility Assessment Moderate tone in Bilateral thoracic and lumbar paraspinals, piriformis, iliopsoas, and quadratus lumborum. Mild tone in bilateral hamstrings and adductor vinod PT-OP-J Posture/Palpation/Skin Start: 10/04/17 14:21 Freq: Status: Active Protocol: Document 11/12/19 12:05 DCW (Rec: 11/12/19 12:44 DCW [id number]) Posture Evaluation Position Standing Head/C-Spine Posture Forward Head T-Spine Posture Flexible Scoliosis on (L), Increased Kyphosis L-Spine Posture Flexible Scoliosis on (R) Pelvis Posture (L) Iliac Crest Superior Hip Posture (L) Flexed,(R) Flexed Comments Posture Comments Pt's jorge with cues to stand as tall as possible: 5' /c 1 heel heel PT-OP-K Range of Motion Start: 10/04/17 14:21 Freq: Status: Active Protocol: Document 11/12/19 12:05 DCW (Rec: 11/12/19 12:44 DCW [id number]) Lumbar Spine Range of Motion Lumbar Spine Active Degrees Testing Position Standing Comments Max extension, pt is forward flexed 5? at her thoracic spine Shoulder Goniometric Range of Motion Shoulder Left Active Shoulder ROM WFL No Testing Position Sitting Flexion 160 Abduction 152 External Rotation at 0 degrees Abduction 62 Right Active Shoulder ROM WFL No Testing Position Sitting Flexion 122 Abduction 105 External Rotation at 0 degrees Abduction 51 PT-OP-M Strength Start: 10/04/17 14:21 Freq: Status: Active Protocol: Document 12/18/18 13:45 DCW (Rec: 12/18/18 14:23 DCW [id number]) Shoulder Strength Shoulder Manual Muscle Testing Right Flexion 4 Good Abduction (C5) 4+ Good+ External Rotation 4+ Good+ Internal Rotation 5 Normal Left Flexion 4 Good Abduction (C5) 4+ Good+ External Rotation 4+ Good+ Internal Rotation 5 Normal PT-OP-Q Treatments Start: 08/06/17 17:30 Freq: Status: Active Protocol: Document 11/19/19 12:00 DCW (Rec: 11/19/19 12:53 DCW [id number]) Cardio Equipment Upper Body Ergometer (UBE) Duration (Minutes) 5 RPM 60 Seat Position 13 Height 3 Therapeutic Exercises Sitting Exercises PROM Abduction Sitting Exercise Name Pullies GH Abduction Side bilateral PROM Flexion Sitting Exercise Name Pullies GH flexion Side bilateral Manual Therapy Treatment Soft Tissue Mobilization 4 Body Location Piriformis Mobilization Type Strumming,Sustained Pressure, Trigger Point Release Intensity/Depth Deep Body Position Sidelying 3 Body Location Quadratus Lumborum Mobilization Type Myofascial Release,Strumming, Sustained Pressure Intensity/Depth Moderate Body Position Sidelying 2 Body Location Glute Med Mobilization Type Strumming,Sustained Pressure Intensity/Depth Moderate Body Position Sidelying 1 Body Location Lumbar Erector Spinae Mobilization Type Myofascial Release,Sustained Pressure Intensity/Depth Moderate Body Position Sidelying Joint Mobilizations 1 Joint Thoracic Spine Direction P->A Grade III Body Position Sidelying Manual Traction Lumbar Details Hip/Iliac crest depression Body Position Sidelying Comments MWM PT-OP-R Modalities Start: 08/06/17 17:30 Freq: Status: Active Protocol: Document 11/19/19 12:00 DCW (Rec: 11/19/19 12:53 DCW [id number]) Electric Stimulation Electric Stimulation Interferential Current (IFC) Body Location Lumbar Spine Duration (Minutes) 15 Patient Position Sitting Combined With Heat/Cold Hot Pack PT-OP-T Assessment and Plan Start: 08/06/17 17:30 Freq: Status: Active Protocol: Document 11/19/19 12:00 DCW (Rec: 11/19/19 12:53 DCW [id number]) Physical Therapy Assessment Impairments Impairments Activity Tolerance,Balance, Functional Activities, Functional Mobility,Gait,Pain, Posture,ROM,Soft Tissue Mobility,Strength,Tone Goals Seven Impairment Pt displays increased falls risk Short Term Goal (STG) Pt to score a 47/56 on the Yanez Balance Scale to demonstrate a decreased falls risk STG Duration 12/13/19 - Improving 45/56 Residential Goal (LTG) Pt to score a 18/24 on the DGI - MET New Goal: LTG Duration 01/12/20 - Improving - Six Impairment Difficulty of getting in the car Residential Goal (LTG) Patient will get in to the car with proper mechanics without difficulty or low back pain LTG Duration Met Five Impairment Difficulty of lifting laundry from floor to shoulder level Crew Lead Goal (LTG) Patient will learn good lifting mechanics to prevent further low back pain. LTG Duration 01/12/20 Four Impairment Palpable muscle tone Crew Lead Goal (LTG) Pt muscle tone grossly to mild levels of tone 08/13/1954-Vny-Bhdmzt tone LTG Duration 01/12/20 Three Impairment Thoracic Spine ROM Short Term Goal (STG) Thoracic spine to lacking 10 degrees from neutral at full extension STG Duration Met Crew Lead Goal (LTG) Thoracic spine to neutral at full extension LTG Duration 01/12/20 - Decline to lacking 5 degrees Two Impairment Pain Crew Lead Goal (LTG) Pt to report decreased pain to a max of 4/10 LTG Duration 01/12/20 One Impairment Activity tolerance Residential Goal (LTG) Pt to tolerate gardening with no increased pain for three hours 08/13/19 - pt tolerating two hours of gardening with increased pain after 30 minutes LTG Duration 01/12/20 Assessment Summary Assessment Pt did well today, despite complaints of pain and stiffness from gardening yesterday. Physical Therapy Plan Frequency and Duration Frequency of Treatment 1x/Week Duration of Treatment 3 months Plan of Care Start Date 11/12/19 Plan of Care End Date 02/10/20 Therapeutic Interventions Therapeutic Interventions Aquatic Therapy,Home Exercise Program,Joint Mobilizations, Manual Therapy,Neuromuscular Re-education,Self-Care/Home Management,Soft Tissue Mobilization,Therapeutic Exercises Modalities Cold Pack/Ice Massage,Electric Stimulation,Hot Packs Next Visit Focus/Plan Next Note Type Treatment Note Next Visit Plan Balance training, posture training, shoulder/scapular strengthening, STM
--- NOTE | 2019-12-03 12:44 | PT.OTN ---
Current Diagnoses Scoliosis, unspecified (12/03/19) Spondylosis without myelopathy or radiculopathy, cervical region (12/03/19) Pain in thoracic spine (12/03/19) Physical Therapy Treatment Note PT-OP-A Visit Information Start: 08/06/17 17:30 Freq: Status: Active Protocol: Document 12/03/19 12:00 DCW (Rec: 12/03/19 12:44 DCW [id number]) Out-Patient Physical Therapy Visit Information Visit Information Visit Type Treatment Note Visit Start Time 12:00 Visit Stop Time 12:55 Total Visit Minutes 55 Visit Number 104 Number of SLOT MANAGER Visits 0 Evaluation Information Evaluation Date 05/28/17 PT-OP-B Current Condition Start: 10/04/17 14:21 Freq: Status: Active Protocol: Document 02/20/19 13:45 DCW (Rec: 02/20/19 14:36 DCW [id number]) Current Condition History of Current Condition History of Current Condition Please see patient's chart in Therapy Source for complete history and initial evaluation ADDENDEM 02/20/19: Pt has a new referral to work on balance and gait. Pt notes she doesn't have any recent falls , but that's because I'm good at grabbing things before I go down. Pt has been using a SPC for assistance, and has recently gotten a FWW, although she has yet to use it . Pt admits that she has not been picking my feet up very well. PT-OP-C Subjective Start: 08/06/17 17:30 Freq: Status: Active Protocol: Document 12/03/19 12:00 DCW (Rec: 12/03/19 12:44 DCW [id number]) OP-PT Subjective Patient Comments Patient Comments Pt reports her back is pretty sore today after doing a lot of gardening. PT-OP-D Balance Start: 02/20/19 13:46 Freq: Status: Active Protocol: Document 11/12/19 12:05 DCW (Rec: 11/12/19 12:44 DCW [id number]) Balance Tests Yanez Balance Test Yanez Balance Test Score 45/56 Yanez Impairment Rating 1 to 19% Impaired (Score 45-55 ) Yanez Balance Assessment Evaluation Sitting to Standing Ability Independent w/out Hands Unsupported Stance Safely- 2 minutes Sitting Unsupported, Feet on Floor Safely- 2 minutes Standing to Sitting Ability Safely, Minimal Hand Use Transfer Ability Safely, Minimal Hand Use Unsupported Stance- Eyes Closed Safely, 10 seconds Unsupported Stance- Eyes Open Independent, 1 minute Reaching Forward Standing Safely, 5 inches Pick- Up Object From Floor Independent/Safe Look Behind Shoulder - Standing Shifts Weight Unilateral Turning 360 Degrees Turns slowly, but safely Unsupported Stance, Alternating Feet on 2 Steps w/Minimum Assist Stair Unsupported Tandem Stance Holds Tandem- 30 seconds Unilateral Leg Stance Lifts Leg/Unable to Hold Total Score Yanez Total Score (out of 56 points) 45 Yanez Impairment Rating 1 to 19% Impaired (Score 45-55 ) PT-OP-E Functional Tests Start: 02/20/19 13:46 Freq: Status: Active Protocol: Document 11/12/19 12:05 DCW (Rec: 11/12/19 12:44 DCW [id number]) Functional Tests 2 Minute Walk Test Distance 240 Device Used none Comments 2.0 ft/sec Dynamic Gait Index (DGI) Score 18/24 DGI Impairment Rating 20 to <40% Impaired (Score 15- 19) PT-OP-F Manual Assessment Start: 10/04/17 14:21 Freq: Status: Active Protocol: Document 05/21/19 14:30 DCW (Rec: 05/21/19 15:12 DCW [id number]) Manual Assessments Soft Tissue Assessment Soft Tissue Mobility Assessment Moderate tone in Bilateral thoracic and lumbar paraspinals, piriformis, iliopsoas, and quadratus lumborum. Mild tone in bilateral hamstrings and adductor vinod PT-OP-J Posture/Palpation/Skin Start: 10/04/17 14:21 Freq: Status: Active Protocol: Document 11/12/19 12:05 DCW (Rec: 11/12/19 12:44 DCW [id number]) Posture Evaluation Position Standing Head/C-Spine Posture Forward Head T-Spine Posture Flexible Scoliosis on (L), Increased Kyphosis L-Spine Posture Flexible Scoliosis on (R) Pelvis Posture (L) Iliac Crest Superior Hip Posture (L) Flexed,(R) Flexed Comments Posture Comments Pt's jorge with cues to stand as tall as possible: 5' /c 1 heel heel PT-OP-K Range of Motion Start: 10/04/17 14:21 Freq: Status: Active Protocol: Document 11/12/19 12:05 DCW (Rec: 11/12/19 12:44 DCW [id number]) Lumbar Spine Range of Motion Lumbar Spine Active Degrees Testing Position Standing Comments Max extension, pt is forward flexed 5? at her thoracic spine Shoulder Goniometric Range of Motion Shoulder Left Active Shoulder ROM WFL No Testing Position Sitting Flexion 160 Abduction 152 External Rotation at 0 degrees Abduction 62 Right Active Shoulder ROM WFL No Testing Position Sitting Flexion 122 Abduction 105 External Rotation at 0 degrees Abduction 51 PT-OP-M Strength Start: 10/04/17 14:21 Freq: Status: Active Protocol: Document 12/18/18 13:45 DCW (Rec: 12/18/18 14:23 DCW [id number]) Shoulder Strength Shoulder Manual Muscle Testing Right Flexion 4 Good Abduction (C5) 4+ Good+ External Rotation 4+ Good+ Internal Rotation 5 Normal Left Flexion 4 Good Abduction (C5) 4+ Good+ External Rotation 4+ Good+ Internal Rotation 5 Normal PT-OP-Q Treatments Start: 08/06/17 17:30 Freq: Status: Active Protocol: Document 12/03/19 12:00 DCW (Rec: 12/03/19 12:44 DCW [id number]) Cardio Equipment Upper Body Ergometer (UBE) Duration (Minutes) 5 RPM 60 Seat Position 12 Height 3 Therapeutic Exercises Supine Exercises 1 Supine Exercise Name Supine on Towel roll at T10-12 Side bilateral Comments increase thoracolumbar extension Sitting Exercises PROM Abduction Sitting Exercise Name Pullies GH Abduction Side bilateral PROM Flexion Sitting Exercise Name Pullies GH flexion Side bilateral Standing Exercises Rows Standing Exercise Name Rows Side bilateral Resistance Lv 3 Equipment Used T-band Shoulder Extension Standing Exercise Name Extension Side bilateral Resistance Lv 2 Equipment Used T-band Manual Therapy Treatment Soft Tissue Mobilization 4 Body Location Piriformis Mobilization Type Strumming,Sustained Pressure, Trigger Point Release Intensity/Depth Deep Body Position Sidelying 3 Body Location Quadratus Lumborum Mobilization Type Myofascial Release,Strumming, Sustained Pressure Intensity/Depth Moderate Body Position Sidelying 2 Body Location Glute Med Mobilization Type Strumming,Sustained Pressure Intensity/Depth Moderate Body Position Sidelying 1 Body Location Lumbar Erector Spinae Mobilization Type Myofascial Release,Sustained Pressure Intensity/Depth Moderate Body Position Sidelying Joint Mobilizations 1 Joint Thoracic Spine Direction P->A Grade III Body Position Sidelying Manual Traction Lumbar Details Hip/Iliac crest depression Body Position Sidelying Comments MWM PT-OP-R Modalities Start: 08/06/17 17:30 Freq: Status: Active Protocol: Document 12/03/19 12:00 DCW (Rec: 12/03/19 12:44 DCW [id number]) Electric Stimulation Electric Stimulation Interferential Current (IFC) Body Location Lumbar Spine Duration (Minutes) 15 Patient Position Sitting Combined With Heat/Cold Hot Pack PT-OP-T Assessment and Plan Start: 08/06/17 17:30 Freq: Status: Active Protocol: Document 12/03/19 12:00 DCW (Rec: 12/03/19 12:44 DCW [id number]) Physical Therapy Assessment Impairments Impairments Activity Tolerance,Balance, Functional Activities, Functional Mobility,Gait,Pain, Posture,ROM,Soft Tissue Mobility,Strength,Tone Goals Seven Impairment Pt displays increased falls risk Short Term Goal (STG) Pt to score a 47/56 on the Yanez Balance Scale to demonstrate a decreased falls risk STG Duration 12/13/19 - Improving 45/56 Fund Accounting Manager Goal (LTG) Pt to score a 18/24 on the DGI - MET New Goal: LTG Duration 01/12/20 - Improving - Six Impairment Difficulty of getting in the car Fund Accounting Manager Goal (LTG) Patient will get in to the car with proper mechanics without difficulty or low back pain LTG Duration Met Five Impairment Difficulty of lifting laundry from floor to shoulder level Fund Accounting Manager Goal (LTG) Patient will learn good lifting mechanics to prevent further low back pain. LTG Duration 01/12/20 Four Impairment Palpable muscle tone Fund Accounting Manager Goal (LTG) Pt muscle tone grossly to mild levels of tone 08/13/1908-Csj-Nszdgc tone LTG Duration 01/12/20 Three Impairment Thoracic Spine ROM Short Term Goal (STG) Thoracic spine to lacking 10 degrees from neutral at full extension STG Duration Met Fund Accounting Manager Goal (LTG) Thoracic spine to neutral at full extension LTG Duration 01/12/20 - Decline to lacking 5 degrees Two Impairment Pain Mcc Goal (LTG) Pt to report decreased pain to a max of 4/10 LTG Duration 01/12/20 One Impairment Activity tolerance Mcc Goal (LTG) Pt to tolerate gardening with no increased pain for three hours 08/13/19 - pt tolerating two hours of gardening with increased pain after 30 minutes LTG Duration 01/12/20 Assessment Summary Assessment Pt experiencing increase tone in low back after gardening yesterday, increased tenderness to palpation. Physical Therapy Plan Frequency and Duration Frequency of Treatment 1x/Week Duration of Treatment 3 months Plan of Care Start Date 11/12/19 Plan of Care End Date 02/10/20 Therapeutic Interventions Therapeutic Interventions Aquatic Therapy,Home Exercise Program,Joint Mobilizations, Manual Therapy,Neuromuscular Re-education,Self-Care/Home Management,Soft Tissue Mobilization,Therapeutic Exercises Modalities Cold Pack/Ice Massage,Electric Stimulation,Hot Packs Next Visit Focus/Plan Next Note Type Treatment Note Next Visit Plan Balance training, posture training, shoulder/scapular strengthening, STM
--- NOTE | 2019-12-11 14:30 | PT.OTN ---
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) Pain in thoracic spine (12/11/19) Physical Therapy Treatment Note PT-OP-A Visit Information Start: 08/06/17 17:30 Freq: Status: Active Protocol: Document 12/11/19 13:45 DCW (Rec: 12/11/19 14:30 DCW [id number]) Out-Patient Physical Therapy Visit Information Visit Information Visit Type Treatment Note Visit Start Time 13:45 Visit Stop Time 14:40 Total Visit Minutes 55 Visit Number 105 Number of QUALITY NURSE Visits 0 Evaluation Information Evaluation Date 05/28/17 PT-OP-B Current Condition Start: 10/04/17 14:21 Freq: Status: Active Protocol: Document 02/20/19 13:45 DCW (Rec: 02/20/19 14:36 DCW [id number]) Current Condition History of Current Condition History of Current Condition Please see patient's chart in Therapy Source for complete history and initial evaluation ADDENDEM 02/20/19: Pt has a new referral to work on balance and gait. Pt notes she doesn't have any recent falls , but that's because I'm good at grabbing things before I go down. Pt has been using a SPC for assistance, and has recently gotten a FWW, although she has yet to use it . Pt admits that she has not been picking my feet up very well. PT-OP-C Subjective Start: 08/06/17 17:30 Freq: Status: Active Protocol: Document 12/11/19 13:45 DCW (Rec: 12/11/19 14:30 DCW [id number]) OP-PT Subjective Patient Comments Patient Comments Pt notes she is having increased low back pain after spending a long time in her garden yesterday. PT-OP-D Balance Start: 02/20/19 13:46 Freq: Status: Active Protocol: Document 11/12/19 12:05 DCW (Rec: 11/12/19 12:44 DCW [id number]) Balance Tests Yanez Balance Test Yanez Balance Test Score 45/56 Yanez Impairment Rating 1 to 19% Impaired (Score 45-55 ) Yanez Balance Assessment Evaluation Sitting to Standing Ability Independent w/out Hands Unsupported Stance Safely- 2 minutes Sitting Unsupported, Feet on Floor Safely- 2 minutes Standing to Sitting Ability Safely, Minimal Hand Use Transfer Ability Safely, Minimal Hand Use Unsupported Stance- Eyes Closed Safely, 10 seconds Unsupported Stance- Eyes Open Independent, 1 minute Reaching Forward Standing Safely, 5 inches Pick- Up Object From Floor Independent/Safe Look Behind Shoulder - Standing Shifts Weight Unilateral Turning 360 Degrees Turns slowly, but safely Unsupported Stance, Alternating Feet on 2 Steps w/Minimum Assist Stair Unsupported Tandem Stance Holds Tandem- 30 seconds Unilateral Leg Stance Lifts Leg/Unable to Hold Total Score Yanez Total Score (out of 56 points) 45 Yanez Impairment Rating 1 to 19% Impaired (Score 45-55 ) PT-OP-E Functional Tests Start: 02/20/19 13:46 Freq: Status: Active Protocol: Document 11/12/19 12:05 DCW (Rec: 11/12/19 12:44 DCW [id number]) Functional Tests 2 Minute Walk Test Distance 240 Device Used none Comments 2.0 ft/sec Dynamic Gait Index (DGI) Score 18/24 DGI Impairment Rating 20 to <40% Impaired (Score 15- 19) PT-OP-F Manual Assessment Start: 10/04/17 14:21 Freq: Status: Active Protocol: Document 05/21/19 14:30 DCW (Rec: 05/21/19 15:12 DCW [id number]) Manual Assessments Soft Tissue Assessment Soft Tissue Mobility Assessment Moderate tone in Bilateral thoracic and lumbar paraspinals, piriformis, iliopsoas, and quadratus lumborum. Mild tone in bilateral hamstrings and adductor vinod PT-OP-J Posture/Palpation/Skin Start: 10/04/17 14:21 Freq: Status: Active Protocol: Document 11/12/19 12:05 DCW (Rec: 11/12/19 12:44 DCW [id number]) Posture Evaluation Position Standing Head/C-Spine Posture Forward Head T-Spine Posture Flexible Scoliosis on (L), Increased Kyphosis L-Spine Posture Flexible Scoliosis on (R) Pelvis Posture (L) Iliac Crest Superior Hip Posture (L) Flexed,(R) Flexed Comments Posture Comments Pt's jorge with cues to stand as tall as possible: 5' /c 1 heel heel PT-OP-K Range of Motion Start: 10/04/17 14:21 Freq: Status: Active Protocol: Document 11/12/19 12:05 DCW (Rec: 11/12/19 12:44 DCW [id number]) Lumbar Spine Range of Motion Lumbar Spine Active Degrees Testing Position Standing Comments Max extension, pt is forward flexed 5? at her thoracic spine Shoulder Goniometric Range of Motion Shoulder Left Active Shoulder ROM WFL No Testing Position Sitting Flexion 160 Abduction 152 External Rotation at 0 degrees Abduction 62 Right Active Shoulder ROM WFL No Testing Position Sitting Flexion 122 Abduction 105 External Rotation at 0 degrees Abduction 51 PT-OP-M Strength Start: 10/04/17 14:21 Freq: Status: Active Protocol: Document 12/18/18 13:45 DCW (Rec: 12/18/18 14:23 DCW [id number]) Shoulder Strength Shoulder Manual Muscle Testing Right Flexion 4 Good Abduction (C5) 4+ Good+ External Rotation 4+ Good+ Internal Rotation 5 Normal Left Flexion 4 Good Abduction (C5) 4+ Good+ External Rotation 4+ Good+ Internal Rotation 5 Normal PT-OP-Q Treatments Start: 08/06/17 17:30 Freq: Status: Active Protocol: Document 12/11/19 13:45 DCW (Rec: 12/11/19 14:30 DCW [id number]) Cardio Equipment Upper Body Ergometer (UBE) Duration (Minutes) 5 RPM 60 Seat Position 12 Height 3 Gym Equipment Shuttle Balance Red Details WBOS, Staggered Stance Therapeutic Exercises Supine Exercises 1 Supine Exercise Name Supine on Towel roll at T10-12 Side bilateral Comments increase thoracolumbar extension Manual Therapy Treatment Soft Tissue Mobilization 4 Body Location Piriformis Mobilization Type Strumming,Sustained Pressure, Trigger Point Release Intensity/Depth Deep Body Position Sidelying 3 Body Location Quadratus Lumborum Mobilization Type Myofascial Release,Strumming, Sustained Pressure Intensity/Depth Moderate Body Position Sidelying 2 Body Location Glute Med Mobilization Type Strumming,Sustained Pressure Intensity/Depth Moderate Body Position Sidelying 1 Body Location Lumbar Erector Spinae Mobilization Type Myofascial Release,Sustained Pressure Intensity/Depth Moderate Body Position Sidelying Joint Mobilizations 1 Joint Thoracic Spine Direction P->A Grade III Body Position Sidelying Manual Traction Lumbar Details Hip/Iliac crest depression Body Position Sidelying Comments MWM PT-OP-R Modalities Start: 08/06/17 17:30 Freq: Status: Active Protocol: Document 12/11/19 13:45 DCW (Rec: 12/11/19 14:30 DCW [id number]) Electric Stimulation Electric Stimulation Interferential Current (IFC) Body Location Lumbar Spine Duration (Minutes) 15 Patient Position Sitting Combined With Heat/Cold Hot Pack PT-OP-T Assessment and Plan Start: 08/06/17 17:30 Freq: Status: Active Protocol: Document 12/11/19 13:45 DCW (Rec: 12/11/19 14:30 DCW [id number]) Physical Therapy Assessment Impairments Impairments Activity Tolerance,Balance, Functional Activities, Functional Mobility,Gait,Pain, Posture,ROM,Soft Tissue Mobility,Strength,Tone Goals Seven Impairment Pt displays increased falls risk Short Term Goal (STG) Pt to score a 47/56 on the Yanez Balance Scale to demonstrate a decreased falls risk STG Duration 12/13/19 - Improving 45/56 Intermediate Goal (LTG) Pt to score a 18/24 on the DGI - MET New Goal: LTG Duration 01/12/20 - Improving - Six Impairment Difficulty of getting in the car Food [employer] Nutrition Services Supervisor Goal (LTG) Patient will get in to the car with proper mechanics without difficulty or low back pain LTG Duration Met Five Impairment Difficulty of lifting laundry from floor to shoulder level Intermediate Goal (LTG) Patient will learn good lifting mechanics to prevent further low back pain. LTG Duration 01/12/20 Four Impairment Palpable muscle tone Intermediate Goal (LTG) Pt muscle tone grossly to mild levels of tone 08/13/1976-Irt-Dzqjme tone LTG Duration 01/12/20 Three Impairment Thoracic Spine ROM Short Term Goal (STG) Thoracic spine to lacking 10 degrees from neutral at full extension STG Duration Met Intermediate Goal (LTG) Thoracic spine to neutral at full extension LTG Duration 01/12/20 - Decline to lacking 5 degrees Two Impairment Pain Intermediate Goal (LTG) Pt to report decreased pain to a max of 4/10 LTG Duration 01/12/20 One Impairment Activity tolerance Intermediate Goal (LTG) Pt to tolerate gardening with no increased pain for three hours 08/13/19 - pt tolerating two hours of gardening with increased pain after 30 minutes LTG Duration 01/12/20 Assessment Summary Assessment Pt doing better today, especially following STM. improved stability and mobility of low back. Physical Therapy Plan Frequency and Duration Frequency of Treatment 1x/Week Duration of Treatment 3 months Plan of Care Start Date 11/12/19 Plan of Care End Date 02/10/20 Therapeutic Interventions Therapeutic Interventions Aquatic Therapy,Home Exercise Program,Joint Mobilizations, Manual Therapy,Neuromuscular Re-education,Self-Care/Home Management,Soft Tissue Mobilization,Therapeutic Exercises Modalities Cold Pack/Ice Massage,Electric Stimulation,Hot Packs Next Visit Focus/Plan Next Note Type Treatment Note Next Visit Plan Balance training, posture training, shoulder/scapular strengthening, STM
--- NOTE | 2019-12-15 13:20 | PT-OP ANOTE ---
Pt DNS for today's appt. Left a message on her voicemail missed her 1300 appt today and reminded next appt 12/25/19 at 1215.
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
--- NOTE | 2019-12-25 13:16 | PT.OTN ---
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) Pain in thoracic spine (12/25/19) Physical Therapy Treatment Note PT-OP-A Visit Information Start: 08/06/17 17:30 Freq: Status: Active Protocol: Document 12/25/19 12:19 SP (Rec: 12/25/19 14:35 SP [id number]) Out-Patient Physical Therapy Visit Information Visit Information Visit Type Treatment Note Visit Start Time 12:19 Visit Stop Time 13:16 Total Visit Minutes 57 Visit Number 107 Number of BUILDING PRINCIPAL Visits 2 PT-OP-B Current Condition Start: 10/04/17 14:21 Freq: Status: Active Protocol: Document 02/20/19 13:45 DCW (Rec: 02/20/19 14:36 DCW [id number]) Current Condition History of Current Condition History of Current Condition Please see patient's chart in Therapy Source for complete history and initial evaluation ADDENDEM 02/20/19: Pt has a new referral to work on balance and gait. Pt notes she doesn't have any recent falls , but that's because I'm good at grabbing things before I go down. Pt has been using a SPC for assistance, and has recently gotten a FWW, although she has yet to use it . Pt admits that she has not been picking my feet up very well. PT-OP-C Subjective Start: 08/06/17 17:30 Freq: Status: Active Protocol: Document 12/25/19 12:19 SP (Rec: 12/25/19 14:35 SP [id number]) OP-PT Subjective Patient Comments Patient Comments Pt reported having hard time finding place to perform exercises at home that would get most benefits, want to review HEP. PT-OP-D Balance Start: 02/20/19 13:46 Freq: Status: Active Protocol: Document 11/12/19 12:05 DCW (Rec: 11/12/19 12:44 DCW [id number]) Balance Tests Yanez Balance Test Yanez Balance Test Score 45/56 Yanez Impairment Rating 1 to 19% Impaired (Score 45-55 ) Yanez Balance Assessment Evaluation Sitting to Standing Ability Independent w/out Hands Unsupported Stance Safely- 2 minutes Sitting Unsupported, Feet on Floor Safely- 2 minutes Standing to Sitting Ability Safely, Minimal Hand Use Transfer Ability Safely, Minimal Hand Use Unsupported Stance- Eyes Closed Safely, 10 seconds Unsupported Stance- Eyes Open Independent, 1 minute Reaching Forward Standing Safely, 5 inches Pick- Up Object From Floor Independent/Safe Look Behind Shoulder - Standing Shifts Weight Unilateral Turning 360 Degrees Turns slowly, but safely Unsupported Stance, Alternating Feet on 2 Steps w/Minimum Assist Stair Unsupported Tandem Stance Holds Tandem- 30 seconds Unilateral Leg Stance Lifts Leg/Unable to Hold Total Score Yanez Total Score (out of 56 points) 45 Yanez Impairment Rating 1 to 19% Impaired (Score 45-55 ) PT-OP-E Functional Tests Start: 02/20/19 13:46 Freq: Status: Active Protocol: Document 11/12/19 12:05 DCW (Rec: 11/12/19 12:44 DCW [id number]) Functional Tests 2 Minute Walk Test Distance 240 Device Used none Comments 2.0 ft/sec Dynamic Gait Index (DGI) Score 18/24 DGI Impairment Rating 20 to <40% Impaired (Score 15- 19) PT-OP-F Manual Assessment Start: 10/04/17 14:21 Freq: Status: Active Protocol: Document 05/21/19 14:30 DCW (Rec: 05/21/19 15:12 DCW [id number]) Manual Assessments Soft Tissue Assessment Soft Tissue Mobility Assessment Moderate tone in Bilateral thoracic and lumbar paraspinals, piriformis, iliopsoas, and quadratus lumborum. Mild tone in bilateral hamstrings and adductor vinod PT-OP-J Posture/Palpation/Skin Start: 10/04/17 14:21 Freq: Status: Active Protocol: Document 11/12/19 12:05 DCW (Rec: 11/12/19 12:44 DCW [id number]) Posture Evaluation Position Standing Head/C-Spine Posture Forward Head T-Spine Posture Flexible Scoliosis on (L), Increased Kyphosis L-Spine Posture Flexible Scoliosis on (R) Pelvis Posture (L) Iliac Crest Superior Hip Posture (L) Flexed,(R) Flexed Comments Posture Comments Pt's jorge with cues to stand as tall as possible: 5' /c 1 heel heel PT-OP-K Range of Motion Start: 10/04/17 14:21 Freq: Status: Active Protocol: Document 11/12/19 12:05 DCW (Rec: 11/12/19 12:44 DCW [id number]) Lumbar Spine Range of Motion Lumbar Spine Active Degrees Testing Position Standing Comments Max extension, pt is forward flexed 5? at her thoracic spine Shoulder Goniometric Range of Motion Shoulder Left Active Shoulder ROM WFL No Testing Position Sitting Flexion 160 Abduction 152 External Rotation at 0 degrees Abduction 62 Right Active Shoulder ROM WFL No Testing Position Sitting Flexion 122 Abduction 105 External Rotation at 0 degrees Abduction 51 PT-OP-M Strength Start: 10/04/17 14:21 Freq: Status: Active Protocol: Document 12/18/18 13:45 DCW (Rec: 12/18/18 14:23 DCW [id number]) Shoulder Strength Shoulder Manual Muscle Testing Right Flexion 4 Good Abduction (C5) 4+ Good+ External Rotation 4+ Good+ Internal Rotation 5 Normal Left Flexion 4 Good Abduction (C5) 4+ Good+ External Rotation 4+ Good+ Internal Rotation 5 Normal PT-OP-Q Treatments Start: 08/06/17 17:30 Freq: Status: Active Protocol: Document 12/25/19 12:19 SP (Rec: 12/25/19 14:35 SP [id number]) Cardio Equipment Upper Body Ergometer (UBE) Duration (Minutes) 6 RPM 60 Seat Position 12 Height 3 Other f/b Therapeutic Exercises Supine Exercises Serratus Punch Supine Exercise Name Serratus anterior punch with wand Side bilateral Resistance Tb #2 Equipment Used loops on Tb to assist no pain hands gripping arthritis- better Reps/Minutes 2x10 Comments looped behind back, target to punch to Shoulder Flexion Supine Exercise Name diagonal Y OH Side bilateral Resistance Tb #1 > #2 Reps/Minutes x15 each resistance Comments Pain-free ROM ( 154* R, 167* L) 1 Supine Exercise Name Supine on Towel roll at T10-12 w/ UE FF OH Side bilateral Resistance TB #1 Reps/Minutes x10 alternate R and L Comments increase thoracolumbar extension and breath expansion Sitting Exercises PROM Abduction Sitting Exercise Name Pullies GH Abduction Side bilateral Reps/Minutes 1 min PROM Flexion Sitting Exercise Name Pullies GH flexion Side bilateral Reps/Minutes 1 min Standing Exercises Rows Standing Exercise Name Rows Side bilateral Resistance Lv 3 Equipment Used T-band Reps/Minutes 2x20 Comments cued upright posture Shoulder Extension Standing Exercise Name Extension Side bilateral Resistance Lv 2 Equipment Used T-band Reps/Minutes 2x20 Comments cued upright posture PT-OP-R Modalities Start: 08/06/17 17:30 Freq: Status: Active Protocol: Document 12/25/19 12:19 SP (Rec: 12/25/19 14:35 SP [id number]) Electric Stimulation Electric Stimulation Interferential Current (IFC) Body Location Lumbar Spine Duration (Minutes) 15 Intensity 22 Patient Position Sitting Combined With Heat/Cold Hot Pack PT-OP-T Assessment and Plan Start: 08/06/17 17:30 Freq: Status: Active Protocol: Document 12/25/19 12:19 SP (Rec: 12/25/19 14:35 SP [id number]) Physical Therapy Assessment Goals Seven Impairment Pt displays increased falls risk Short Term Goal (STG) Pt to score a 47/56 on the Yanez Balance Scale to demonstrate a decreased falls risk STG Duration 12/13/19 - Improving 45/56 Custodial Goal (LTG) Pt to score a 18/24 on the DGI - MET New Goal: LTG Duration 01/12/20 - Improving - Six Impairment Difficulty of getting in the car Registered Physical Therapist Goal (LTG) Patient will get in to the car with proper mechanics without difficulty or low back pain LTG Duration Met Five Impairment Difficulty of lifting laundry from floor to shoulder level Custodial Goal (LTG) Patient will learn good lifting mechanics to prevent further low back pain. LTG Duration 01/12/20 Four Impairment Palpable muscle tone Custodial Goal (LTG) Pt muscle tone grossly to mild levels of tone 08/13/1964-Ygs-Omtjno tone LTG Duration 01/12/20 Three Impairment Thoracic Spine ROM Short Term Goal (STG) Thoracic spine to lacking 10 degrees from neutral at full extension STG Duration Met Registered Physical Therapist Goal (LTG) Thoracic spine to neutral at full extension LTG Duration 01/12/20 - Decline to lacking 5 degrees Two Impairment Pain Registered Physical Therapist Goal (LTG) Pt to report decreased pain to a max of 4/10 LTG Duration 01/12/20 One Impairment Activity tolerance Custodial Goal (LTG) Pt to tolerate gardening with no increased pain for three hours 08/13/19 - pt tolerating two hours of gardening with increased pain after 30 minutes LTG Duration 01/12/20 Assessment Summary Assessment Reviewed HEP standing, supine with cuing for proper form and tolerant range, towel roll lower TS to allow for ext range with tolerance of FF then took out for scaption Y . Pt made gains in increased resistance with supine UE exercises today. Physical Therapy Plan Frequency and Duration Frequency of Treatment 1x/Week Duration of Treatment 3 months Plan of Care Start Date 11/12/19 Plan of Care End Date 02/10/20 Therapeutic Interventions Therapeutic Interventions Aquatic Therapy,Home Exercise Program,Joint Mobilizations, Manual Therapy,Neuromuscular Re-education,Self-Care/Home Management,Soft Tissue Mobilization,Therapeutic Exercises Modalities Cold Pack/Ice Massage,Electric Stimulation,Hot Packs Next Visit Focus/Plan Next Note Type Treatment Note Next Visit Plan Assess response to TB exercises intiated last tx. Next tx STMs to abdominals, psoas to compliment posture. *Continue Balance training, posture training, shoulder/ scapular strengthening, STM
--- NOTE | 2020-01-05 14:04 | PT.OTN ---
Current Diagnoses Scoliosis, unspecified (01/05/20) Spondylosis without myelopathy or radiculopathy, cervical region (01/05/20) Pain in thoracic spine (01/05/20) Physical Therapy Treatment Note PT-OP-A Visit Information Start: 08/06/17 17:30 Freq: Status: Active Protocol: Document 01/05/20 13:04 SP (Rec: 01/05/20 15:35 SP [id number]) Out-Patient Physical Therapy Visit Information Visit Information Visit Type Treatment Note Visit Start Time 13:04 Visit Stop Time 14:04 Total Visit Minutes 60 Visit Number 108 Number of HEAD START TEACHER Visits 3 PT-OP-B Current Condition Start: 10/04/17 14:21 Freq: Status: Active Protocol: Document 02/20/19 13:45 DCW (Rec: 02/20/19 14:36 DCW [id number]) Current Condition History of Current Condition History of Current Condition Please see patient's chart in Therapy Source for complete history and initial evaluation ADDENDEM 02/20/19: Pt has a new referral to work on balance and gait. Pt notes she doesn't have any recent falls , but that's because I'm good at grabbing things before I go down. Pt has been using a SPC for assistance, and has recently gotten a FWW, although she has yet to use it . Pt admits that she has not been picking my feet up very well. PT-OP-C Subjective Start: 08/06/17 17:30 Freq: Status: Active Protocol: Document 01/05/20 13:04 SP (Rec: 01/05/20 15:35 SP [id number]) OP-PT Subjective Patient Comments Patient Comments Pt reported my low back pain little more today, really glad when got the call for her appt today to feel better. PT-OP-D Balance Start: 02/20/19 13:46 Freq: Status: Active Protocol: Document 11/12/19 12:05 DCW (Rec: 11/12/19 12:44 DCW [id number]) Balance Tests Yanez Balance Test Yanez Balance Test Score 45/56 Yanez Impairment Rating 1 to 19% Impaired (Score 45-55 ) Yanez Balance Assessment Evaluation Sitting to Standing Ability Independent w/out Hands Unsupported Stance Safely- 2 minutes Sitting Unsupported, Feet on Floor Safely- 2 minutes Standing to Sitting Ability Safely, Minimal Hand Use Transfer Ability Safely, Minimal Hand Use Unsupported Stance- Eyes Closed Safely, 10 seconds Unsupported Stance- Eyes Open Independent, 1 minute Reaching Forward Standing Safely, 5 inches Pick- Up Object From Floor Independent/Safe Look Behind Shoulder - Standing Shifts Weight Unilateral Turning 360 Degrees Turns slowly, but safely Unsupported Stance, Alternating Feet on 2 Steps w/Minimum Assist Stair Unsupported Tandem Stance Holds Tandem- 30 seconds Unilateral Leg Stance Lifts Leg/Unable to Hold Total Score Yanez Total Score (out of 56 points) 45 Yanez Impairment Rating 1 to 19% Impaired (Score 45-55 ) PT-OP-E Functional Tests Start: 02/20/19 13:46 Freq: Status: Active Protocol: Document 11/12/19 12:05 DCW (Rec: 11/12/19 12:44 DCW [id number]) Functional Tests 2 Minute Walk Test Distance 240 Device Used none Comments 2.0 ft/sec Dynamic Gait Index (DGI) Score 18/24 DGI Impairment Rating 20 to <40% Impaired (Score 15- 19) PT-OP-F Manual Assessment Start: 10/04/17 14:21 Freq: Status: Active Protocol: Document 05/21/19 14:30 DCW (Rec: 05/21/19 15:12 DCW [id number]) Manual Assessments Soft Tissue Assessment Soft Tissue Mobility Assessment Moderate tone in Bilateral thoracic and lumbar paraspinals, piriformis, iliopsoas, and quadratus lumborum. Mild tone in bilateral hamstrings and adductor vinod PT-OP-J Posture/Palpation/Skin Start: 10/04/17 14:21 Freq: Status: Active Protocol: Document 11/12/19 12:05 DCW (Rec: 11/12/19 12:44 DCW [id number]) Posture Evaluation Position Standing Head/C-Spine Posture Forward Head T-Spine Posture Flexible Scoliosis on (L), Increased Kyphosis L-Spine Posture Flexible Scoliosis on (R) Pelvis Posture (L) Iliac Crest Superior Hip Posture (L) Flexed,(R) Flexed Comments Posture Comments Pt's jorge with cues to stand as tall as possible: 5' /c 1 heel heel PT-OP-K Range of Motion Start: 10/04/17 14:21 Freq: Status: Active Protocol: Document 11/12/19 12:05 DCW (Rec: 11/12/19 12:44 DCW [id number]) Lumbar Spine Range of Motion Lumbar Spine Active Degrees Testing Position Standing Comments Max extension, pt is forward flexed 5? at her thoracic spine Shoulder Goniometric Range of Motion Shoulder Left Active Shoulder ROM WFL No Testing Position Sitting Flexion 160 Abduction 152 External Rotation at 0 degrees Abduction 62 Right Active Shoulder ROM WFL No Testing Position Sitting Flexion 122 Abduction 105 External Rotation at 0 degrees Abduction 51 PT-OP-M Strength Start: 10/04/17 14:21 Freq: Status: Active Protocol: Document 12/18/18 13:45 DCW (Rec: 12/18/18 14:23 DCW [id number]) Shoulder Strength Shoulder Manual Muscle Testing Right Flexion 4 Good Abduction (C5) 4+ Good+ External Rotation 4+ Good+ Internal Rotation 5 Normal Left Flexion 4 Good Abduction (C5) 4+ Good+ External Rotation 4+ Good+ Internal Rotation 5 Normal PT-OP-Q Treatments Start: 08/06/17 17:30 Freq: Status: Active Protocol: Document 01/05/20 13:04 SP (Rec: 01/05/20 15:35 SP [id number]) Cardio Equipment Upper Body Ergometer (UBE) Duration (Minutes) 6 RPM 60 Seat Position 12 Height 3 Other f/b Therapeutic Exercises Supine Exercises Serratus Punch Supine Exercise Name Serratus anterior punch Side bilateral Resistance Tb #1 supine & seated Equipment Used loops on Tb to assist no pain hands gripping arthritis- better Reps/Minutes 2x10 Comments looped behind back, target to punch to Shoulder Flexion Supine Exercise Name single diagonal Y OH, double Tb #1 x10 Side bilateral Resistance TB #2 Reps/Minutes x15 each resistance Comments Pain-free ROM ( 154* R, 167* L) 1 Supine Exercise Name Supine on Towel roll at T10-12 w/ UE FF OH Side bilateral Resistance TB #1 Reps/Minutes x10 alternate R and L Comments increase thoracolumbar extension and breath expansion Sidelying Exercises open book\ Sidelying Exercise Name hand on head TS rotation Side bilateral Reps/Minutes x6 Comments REveiw, contact scapular PNF facilitation Standing Exercises Rows Standing Exercise Name Rows seated and standing Side bilateral Resistance Lv 2 Equipment Used T-band Reps/Minutes 2x20 Comments cued upright posture PT-OP-R Modalities Start: 08/06/17 17:30 Freq: Status: Active Protocol: Document 01/05/20 13:04 SP (Rec: 01/05/20 15:35 SP [id number]) Electric Stimulation Electric Stimulation Interferential Current (IFC) Body Location Lumbar Spine Duration (Minutes) 15 Intensity 23 Patient Position Sitting Combined With Heat/Cold Hot Pack Comments stool under B feet PT-OP-T Assessment and Plan Start: 08/06/17 17:30 Freq: Status: Active Protocol: Document 01/05/20 13:04 SP (Rec: 01/05/20 15:35 SP [id number]) Physical Therapy Assessment Goals Seven Impairment Pt displays increased falls risk Short Term Goal (STG) Pt to score a 47/56 on the Yanez Balance Scale to demonstrate a decreased falls risk STG Duration 12/13/19 - Improving 45/56 Nursing Home Goal (LTG) Pt to score a 18/24 on the DGI - MET New Goal: LTG Duration 01/12/20 - Improving - Six Impairment Difficulty of getting in the car Radiologic Technology Program Director Goal (LTG) Patient will get in to the car with proper mechanics without difficulty or low back pain LTG Duration Met Five Impairment Difficulty of lifting laundry from floor to shoulder level Radiologic Technology Program Director Goal (LTG) Patient will learn good lifting mechanics to prevent further low back pain. LTG Duration 01/12/20 Four Impairment Palpable muscle tone Radiologic Technology Program Director Goal (LTG) Pt muscle tone grossly to mild levels of tone 08/13/1948-Ybv-Orhapp tone LTG Duration 01/12/20 Three Impairment Thoracic Spine ROM Short Term Goal (STG) Thoracic spine to lacking 10 degrees from neutral at full extension STG Duration Met Radiologic Technology Program Director Goal (LTG) Thoracic spine to neutral at full extension LTG Duration 01/12/20 - Decline to lacking 5 degrees Two Impairment Pain Nursing Home Goal (LTG) Pt to report decreased pain to a max of 4/10 LTG Duration 01/12/20 One Impairment Activity tolerance Nursing Home Goal (LTG) Pt to tolerate gardening with no increased pain for three hours 08/13/19 - pt tolerating two hours of gardening with increased pain after 30 minutes LTG Duration 01/12/20 Assessment Summary Assessment Review supine HEP and added seated/ stand resisted rows and shld ext to side today with cuing for scap stabilization depression and upright posture with awareness of abdominal facilitation to decrease LB recruitment, good result feedback. Provided loops on TB due to challenged by gripping with arthritis and reviewed how to anchor in doorway at waist height. Physical Therapy Plan Frequency and Duration Frequency of Treatment 1x/Week Duration of Treatment 3 months Plan of Care Start Date 11/12/19 Plan of Care End Date 02/10/20 Therapeutic Interventions Therapeutic Interventions Aquatic Therapy,Home Exercise Program,Joint Mobilizations, Manual Therapy,Neuromuscular Re-education,Self-Care/Home Management,Soft Tissue Mobilization,Therapeutic Exercises Modalities Cold Pack/Ice Massage,Electric Stimulation,Hot Packs Next Visit Focus/Plan Next Note Type Treatment Note Next Visit Plan Assess response to TB rows/ ext seated/ stand intiated last tx. Next tx STMs to abdominals, psoas to compliment posture. *Continue Balance training, posture training, shoulder/ scapular strengthening, STM
--- NOTE | 2020-01-12 12:55 | PT.OTN ---
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) Pain in thoracic spine (01/12/20) Physical Therapy Treatment Note PT-OP-A Visit Information Start: 08/06/17 17:30 Freq: Status: Active Protocol: Document 01/12/20 12:46 MA (Rec: 01/12/20 13:08 MA [email or web address]) Out-Patient Physical Therapy Visit Information Visit Information Visit Type Treatment Note Visit Start Time 12:00 Visit Stop Time 12:55 Visit Number 55 Number of MANAGER OF PROGRAM Visits 4 PT-OP-B Current Condition Start: 10/04/17 14:21 Freq: Status: Active Protocol: Document 02/20/19 13:45 DCW (Rec: 02/20/19 14:36 DCW [id number]) Current Condition History of Current Condition History of Current Condition Please see patient's chart in Therapy Source for complete history and initial evaluation ADDENDEM 02/20/19: Pt has a new referral to work on balance and gait. Pt notes she doesn't have any recent falls , but that's because I'm good at grabbing things before I go down. Pt has been using a SPC for assistance, and has recently gotten a FWW, although she has yet to use it . Pt admits that she has not been picking my feet up very well. PT-OP-C Subjective Start: 08/06/17 17:30 Freq: Status: Active Protocol: Document 01/12/20 12:46 MA (Rec: 01/12/20 13:08 MA [email or web address]) OP-PT Subjective Patient Comments Patient Comments Pt stated her pain is not too bad today but she has had more trouble lifting her foot to step over things recently PT-OP-D Balance Start: 02/20/19 13:46 Freq: Status: Active Protocol: Document 11/12/19 12:05 DCW (Rec: 11/12/19 12:44 DCW [id number]) Balance Tests Yanez Balance Test Yanez Balance Test Score 45/56 Yanez Impairment Rating 1 to 19% Impaired (Score 45-55 ) Yanez Balance Assessment Evaluation Sitting to Standing Ability Independent w/out Hands Unsupported Stance Safely- 2 minutes Sitting Unsupported, Feet on Floor Safely- 2 minutes Standing to Sitting Ability Safely, Minimal Hand Use Transfer Ability Safely, Minimal Hand Use Unsupported Stance- Eyes Closed Safely, 10 seconds Unsupported Stance- Eyes Open Independent, 1 minute Reaching Forward Standing Safely, 5 inches Pick- Up Object From Floor Independent/Safe Look Behind Shoulder - Standing Shifts Weight Unilateral Turning 360 Degrees Turns slowly, but safely Unsupported Stance, Alternating Feet on 2 Steps w/Minimum Assist Stair Unsupported Tandem Stance Holds Tandem- 30 seconds Unilateral Leg Stance Lifts Leg/Unable to Hold Total Score Yanez Total Score (out of 56 points) 45 Yanez Impairment Rating 1 to 19% Impaired (Score 45-55 ) PT-OP-E Functional Tests Start: 02/20/19 13:46 Freq: Status: Active Protocol: Document 11/12/19 12:05 DCW (Rec: 11/12/19 12:44 DCW [id number]) Functional Tests 2 Minute Walk Test Distance 240 Device Used none Comments 2.0 ft/sec Dynamic Gait Index (DGI) Score 18/24 DGI Impairment Rating 20 to <40% Impaired (Score 15- 19) PT-OP-F Manual Assessment Start: 10/04/17 14:21 Freq: Status: Active Protocol: Document 05/21/19 14:30 DCW (Rec: 05/21/19 15:12 DCW [id number]) Manual Assessments Soft Tissue Assessment Soft Tissue Mobility Assessment Moderate tone in Bilateral thoracic and lumbar paraspinals, piriformis, iliopsoas, and quadratus lumborum. Mild tone in bilateral hamstrings and adductor vinod PT-OP-J Posture/Palpation/Skin Start: 10/04/17 14:21 Freq: Status: Active Protocol: Document 11/12/19 12:05 DCW (Rec: 11/12/19 12:44 DCW [id number]) Posture Evaluation Position Standing Head/C-Spine Posture Forward Head T-Spine Posture Flexible Scoliosis on (L), Increased Kyphosis L-Spine Posture Flexible Scoliosis on (R) Pelvis Posture (L) Iliac Crest Superior Hip Posture (L) Flexed,(R) Flexed Comments Posture Comments Pt's jorge with cues to stand as tall as possible: 5' /c 1 heel heel PT-OP-K Range of Motion Start: 10/04/17 14:21 Freq: Status: Active Protocol: Document 11/12/19 12:05 DCW (Rec: 11/12/19 12:44 DCW [id number]) Lumbar Spine Range of Motion Lumbar Spine Active Degrees Testing Position Standing Comments Max extension, pt is forward flexed 5? at her thoracic spine Shoulder Goniometric Range of Motion Shoulder Left Active Shoulder ROM WFL No Testing Position Sitting Flexion 160 Abduction 152 External Rotation at 0 degrees Abduction 62 Right Active Shoulder ROM WFL No Testing Position Sitting Flexion 122 Abduction 105 External Rotation at 0 degrees Abduction 51 PT-OP-M Strength Start: 10/04/17 14:21 Freq: Status: Active Protocol: Document 12/18/18 13:45 DCW (Rec: 12/18/18 14:23 DCW [id number]) Shoulder Strength Shoulder Manual Muscle Testing Right Flexion 4 Good Abduction (C5) 4+ Good+ External Rotation 4+ Good+ Internal Rotation 5 Normal Left Flexion 4 Good Abduction (C5) 4+ Good+ External Rotation 4+ Good+ Internal Rotation 5 Normal PT-OP-Q Treatments Start: 08/06/17 17:30 Freq: Status: Active Protocol: Document 01/12/20 12:46 MA (Rec: 01/12/20 13:08 MA [email or web address]) Cardio Equipment Recumbent Elliptical ([employer]) Duration (Minutes) 6 Resistance 1 Seat Position 6 Therapeutic Exercises Supine Exercises Passive Pec Stretch Supine Exercise Name Supine on Towel roll at T10-12 Reps/Minutes 2x30 sec Comments hands behind head, elbows wide to stretch pecs Standing Exercises Rows Standing Exercise Name Rows Side bilateral Resistance #2 Equipment Used T-band Reps/Minutes 2x10 Comments VC for upright posture and slowing down movemnt Shoulder Extension Standing Exercise Name Extension Side bilateral Resistance Lv 2 Equipment Used T-band Reps/Minutes 2x10 Comments VC for upright posture and arm extension Neuro Re-Education Treatment Balance Activities Hurdles Details Stepping over 2 platform Equipment 2 step Reps/Duration 6x2 steps Comments SPC and gait belt; pt stepped over 2 platform to mimick stepping over bricks in her garden; VC for thoracic extension PT-OP-R Modalities Start: 08/06/17 17:30 Freq: Status: Active Protocol: Document 01/12/20 12:46 MA (Rec: 01/12/20 13:08 MA [email or web address]) Electric Stimulation Electric Stimulation Interferential Current (IFC) Body Location Lumbar Spine Duration (Minutes) 15 Intensity 18 Patient Position Sitting Combined With Heat/Cold Hot Pack Comments stool under B feet PT-OP-T Assessment and Plan Start: 08/06/17 17:30 Freq: Status: Active Protocol: Document 01/12/20 12:46 MA (Rec: 01/12/20 13:08 MA [email or web address]) Physical Therapy Assessment Assessment Summary Assessment pt with mild SOB after standing retraction exercises needing single seated rest break; during stepping exercises, pt needed VC to maintain upright posture due to forward trunk lean. Educated pt on importance of thoracic extension and increased hip flexion to avoid falls Physical Therapy Plan Frequency and Duration Frequency of Treatment 1x/Week Duration of Treatment 3 months Plan of Care Start Date 11/12/19 Plan of Care End Date 02/10/20 Next Visit Focus/Plan Next Note Type Treatment Note Next Visit Plan Next tx STMs to abdominals, psoas to compliment posture. *Continue Balance training, posture training, shoulder/ scapular strengthening, STM
--- NOTE | 2020-01-27 14:30 | PT.OTN ---
Current Diagnoses Scoliosis, unspecified (01/27/20) Spondylosis without myelopathy or radiculopathy, cervical region (01/27/20) Pain in thoracic spine (01/27/20) Physical Therapy Treatment Note PT-OP-A Visit Information Start: 08/06/17 17:30 Freq: Status: Active Protocol: Document 01/27/20 13:45 DCW (Rec: 01/27/20 14:29 DCW [id number]) Out-Patient Physical Therapy Visit Information Visit Information Visit Type Treatment Note Visit Start Time 13:45 Visit Stop Time 14:40 Total Visit Minutes 55 Visit Number 110 Number of PACKAGER HAND Visits 0 PT-OP-B Current Condition Start: 10/04/17 14:21 Freq: Status: Active Protocol: Document 02/20/19 13:45 DCW (Rec: 02/20/19 14:36 DCW [id number]) Current Condition History of Current Condition History of Current Condition Please see patient's chart in Therapy Source for complete history and initial evaluation ADDENDEM 02/20/19: Pt has a new referral to work on balance and gait. Pt notes she doesn't have any recent falls , but that's because I'm good at grabbing things before I go down. Pt has been using a SPC for assistance, and has recently gotten a FWW, although she has yet to use it . Pt admits that she has not been picking my feet up very well. PT-OP-C Subjective Start: 08/06/17 17:30 Freq: Status: Active Protocol: Document 01/27/20 13:45 DCW (Rec: 01/27/20 14:29 DCW [id number]) OP-PT Subjective Patient Comments Patient Comments My back and shoulders are both hurting today. My ribs too. It's just one of those days where everything is bothering me. PT-OP-D Balance Start: 02/20/19 13:46 Freq: Status: Active Protocol: Document 11/12/19 12:05 DCW (Rec: 11/12/19 12:44 DCW [id number]) Balance Tests Yanez Balance Test Yanez Balance Test Score 45/56 Yanez Impairment Rating 1 to 19% Impaired (Score 45-55 ) Yanez Balance Assessment Evaluation Sitting to Standing Ability Independent w/out Hands Unsupported Stance Safely- 2 minutes Sitting Unsupported, Feet on Floor Safely- 2 minutes Standing to Sitting Ability Safely, Minimal Hand Use Transfer Ability Safely, Minimal Hand Use Unsupported Stance- Eyes Closed Safely, 10 seconds Unsupported Stance- Eyes Open Independent, 1 minute Reaching Forward Standing Safely, 5 inches Pick- Up Object From Floor Independent/Safe Look Behind Shoulder - Standing Shifts Weight Unilateral Turning 360 Degrees Turns slowly, but safely Unsupported Stance, Alternating Feet on 2 Steps w/Minimum Assist Stair Unsupported Tandem Stance Holds Tandem- 30 seconds Unilateral Leg Stance Lifts Leg/Unable to Hold Total Score Yanez Total Score (out of 56 points) 45 Yanez Impairment Rating 1 to 19% Impaired (Score 45-55 ) PT-OP-E Functional Tests Start: 02/20/19 13:46 Freq: Status: Active Protocol: Document 11/12/19 12:05 DCW (Rec: 11/12/19 12:44 DCW [id number]) Functional Tests 2 Minute Walk Test Distance 240 Device Used none Comments 2.0 ft/sec Dynamic Gait Index (DGI) Score 18/24 DGI Impairment Rating 20 to <40% Impaired (Score 15- 19) PT-OP-F Manual Assessment Start: 10/04/17 14:21 Freq: Status: Active Protocol: Document 05/21/19 14:30 DCW (Rec: 05/21/19 15:12 DCW [id number]) Manual Assessments Soft Tissue Assessment Soft Tissue Mobility Assessment Moderate tone in Bilateral thoracic and lumbar paraspinals, piriformis, iliopsoas, and quadratus lumborum. Mild tone in bilateral hamstrings and adductor vinod PT-OP-J Posture/Palpation/Skin Start: 10/04/17 14:21 Freq: Status: Active Protocol: Document 11/12/19 12:05 DCW (Rec: 11/12/19 12:44 DCW [id number]) Posture Evaluation Position Standing Head/C-Spine Posture Forward Head T-Spine Posture Flexible Scoliosis on (L), Increased Kyphosis L-Spine Posture Flexible Scoliosis on (R) Pelvis Posture (L) Iliac Crest Superior Hip Posture (L) Flexed,(R) Flexed Comments Posture Comments Pt's jorge with cues to stand as tall as possible: 5' /c 1 heel heel PT-OP-K Range of Motion Start: 10/04/17 14:21 Freq: Status: Active Protocol: Document 11/12/19 12:05 DCW (Rec: 11/12/19 12:44 DCW [id number]) Lumbar Spine Range of Motion Lumbar Spine Active Degrees Testing Position Standing Comments Max extension, pt is forward flexed 5? at her thoracic spine Shoulder Goniometric Range of Motion Shoulder Left Active Shoulder ROM WFL No Testing Position Sitting Flexion 160 Abduction 152 External Rotation at 0 degrees Abduction 62 Right Active Shoulder ROM WFL No Testing Position Sitting Flexion 122 Abduction 105 External Rotation at 0 degrees Abduction 51 PT-OP-M Strength Start: 10/04/17 14:21 Freq: Status: Active Protocol: Document 12/18/18 13:45 DCW (Rec: 12/18/18 14:23 DCW [id number]) Shoulder Strength Shoulder Manual Muscle Testing Right Flexion 4 Good Abduction (C5) 4+ Good+ External Rotation 4+ Good+ Internal Rotation 5 Normal Left Flexion 4 Good Abduction (C5) 4+ Good+ External Rotation 4+ Good+ Internal Rotation 5 Normal PT-OP-Q Treatments Start: 08/06/17 17:30 Freq: Status: Active Protocol: Document 01/27/20 13:45 DCW (Rec: 01/27/20 14:29 DCW [id number]) Cardio Equipment Upper Body Ergometer (UBE) Duration (Minutes) 5 RPM 60 Seat Position 12 Height 2.5 Therapeutic Exercises Supine Exercises 1 Supine Exercise Name Supine on Towel roll at T10-12 Side bilateral Comments increase thoracolumbar extension Manual Therapy Treatment Soft Tissue Mobilization 4 Body Location Piriformis Mobilization Type Strumming,Sustained Pressure, Trigger Point Release Intensity/Depth Moderate Body Position Sidelying 3 Body Location Quadratus Lumborum Mobilization Type Myofascial Release,Strumming, Sustained Pressure Intensity/Depth Moderate Body Position Sidelying 2 Body Location Glute Med Mobilization Type Strumming,Sustained Pressure Intensity/Depth Moderate Body Position Sidelying 1 Body Location Lumbar Erector Spinae Mobilization Type Myofascial Release,Sustained Pressure Intensity/Depth Moderate Body Position Sidelying Joint Mobilizations 1 Joint Thoracic Spine Direction P->A Grade II Body Position Sidelying Manual Traction Lumbar Details Hip/Iliac crest depression Body Position Sidelying Comments MWM Other Other Manual Treatments ROM, Posture testing PT-OP-R Modalities Start: 08/06/17 17:30 Freq: Status: Active Protocol: Document 01/12/20 12:46 MA (Rec: 01/12/20 13:08 MA [email or web address]) Electric Stimulation Electric Stimulation Interferential Current (IFC) Body Location Lumbar Spine Duration (Minutes) 15 Intensity 18 Patient Position Sitting Combined With Heat/Cold Hot Pack Comments stool under B feet PT-OP-T Assessment and Plan Start: 08/06/17 17:30 Freq: Status: Active Protocol: Document 01/27/20 13:45 DCW (Rec: 01/27/20 14:29 DCW [id number]) Physical Therapy Assessment Goals Seven Impairment Pt displays increased falls risk Short Term Goal (STG) Pt to score a 47/56 on the Yanez Balance Scale to demonstrate a decreased falls risk STG Duration 12/13/19 - Improving 45/56 Penitentiary Goal (LTG) Pt to score a 18/24 on the DGI - MET New Goal: LTG Duration 01/12/20 - Improving - Six Impairment Difficulty of getting in the car Exhibitions And Collections Manager Goal (LTG) Patient will get in to the car with proper mechanics without difficulty or low back pain LTG Duration Met Five Impairment Difficulty of lifting laundry from floor to shoulder level Penitentiary Goal (LTG) Patient will learn good lifting mechanics to prevent further low back pain. LTG Duration 01/12/20 Four Impairment Palpable muscle tone Penitentiary Goal (LTG) Pt muscle tone grossly to mild levels of tone 08/13/1930-Awh-Ysjsjl tone LTG Duration 01/12/20 Three Impairment Thoracic Spine ROM Short Term Goal (STG) Thoracic spine to lacking 10 degrees from neutral at full extension STG Duration Met Penitentiary Goal (LTG) Thoracic spine to neutral at full extension LTG Duration 01/12/20 - Decline to lacking 5 degrees Two Impairment Pain Penitentiary Goal (LTG) Pt to report decreased pain to a max of 4/10 LTG Duration 01/12/20 One Impairment Activity tolerance Exhibitions And Collections Manager Goal (LTG) Pt to tolerate gardening with no increased pain for three hours 08/13/19 - pt tolerating two hours of gardening with increased pain after 30 minutes LTG Duration 01/12/20 Assessment Summary Assessment Pt very sore today, not able to participate as much in usual PT activities. Did feel loosened up following STM. Physical Therapy Plan Frequency and Duration Frequency of Treatment 1x/Week Duration of Treatment 3 months Plan of Care Start Date 11/12/19 Plan of Care End Date 02/10/20 Therapeutic Interventions Therapeutic Interventions Aquatic Therapy,Home Exercise Program,Joint Mobilizations, Manual Therapy,Neuromuscular Re-education,Self-Care/Home Management,Soft Tissue Mobilization,Therapeutic Exercises Modalities Cold Pack/Ice Massage,Electric Stimulation,Hot Packs Next Visit Focus/Plan Next Note Type Treatment Note Next Visit Plan Next tx STMs to abdominals, psoas to compliment posture. *Continue Balance training, posture training, shoulder/ scapular strengthening, STM
--- NOTE | 2020-02-03 14:28 | PT.OTN ---
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) Pain in thoracic spine (02/03/20) Physical Therapy Treatment Note PT-OP-A Visit Information Start: 08/06/17 17:30 Freq: Status: Active Protocol: Document 02/03/20 13:48 DCW (Rec: 02/03/20 14:28 DCW [id number]) Out-Patient Physical Therapy Visit Information Visit Information Visit Type Treatment Note Visit Start Time 13:48 Visit Stop Time 14:35 Total Visit Minutes 47 Visit Number 111 Number of VEGETABLE INSPECTOR Visits 0 PT-OP-B Current Condition Start: 10/04/17 14:21 Freq: Status: Active Protocol: Document 02/20/19 13:45 DCW (Rec: 02/20/19 14:36 DCW [id number]) Current Condition History of Current Condition History of Current Condition Please see patient's chart in Therapy Source for complete history and initial evaluation ADDENDEM 02/20/19: Pt has a new referral to work on balance and gait. Pt notes she doesn't have any recent falls , but that's because I'm good at grabbing things before I go down. Pt has been using a SPC for assistance, and has recently gotten a FWW, although she has yet to use it . Pt admits that she has not been picking my feet up very well. PT-OP-C Subjective Start: 08/06/17 17:30 Freq: Status: Active Protocol: Document 02/03/20 13:48 DCW (Rec: 02/03/20 14:28 DCW [id number]) OP-PT Subjective Patient Comments Patient Comments Pt reports yesterday was a Tramadol night, she was very sore during the night, her back was aching. PT-OP-D Balance Start: 02/20/19 13:46 Freq: Status: Active Protocol: Document 11/12/19 12:05 DCW (Rec: 11/12/19 12:44 DCW [id number]) Balance Tests Yanez Balance Test Yanez Balance Test Score 45/56 Yanez Impairment Rating 1 to 19% Impaired (Score 45-55 ) Yanez Balance Assessment Evaluation Sitting to Standing Ability Independent w/out Hands Unsupported Stance Safely- 2 minutes Sitting Unsupported, Feet on Floor Safely- 2 minutes Standing to Sitting Ability Safely, Minimal Hand Use Transfer Ability Safely, Minimal Hand Use Unsupported Stance- Eyes Closed Safely, 10 seconds Unsupported Stance- Eyes Open Independent, 1 minute Reaching Forward Standing Safely, 5 inches Pick- Up Object From Floor Independent/Safe Look Behind Shoulder - Standing Shifts Weight Unilateral Turning 360 Degrees Turns slowly, but safely Unsupported Stance, Alternating Feet on 2 Steps w/Minimum Assist Stair Unsupported Tandem Stance Holds Tandem- 30 seconds Unilateral Leg Stance Lifts Leg/Unable to Hold Total Score Yanez Total Score (out of 56 points) 45 Yanez Impairment Rating 1 to 19% Impaired (Score 45-55 ) PT-OP-E Functional Tests Start: 02/20/19 13:46 Freq: Status: Active Protocol: Document 11/12/19 12:05 DCW (Rec: 11/12/19 12:44 DCW [id number]) Functional Tests 2 Minute Walk Test Distance 240 Device Used none Comments 2.0 ft/sec Dynamic Gait Index (DGI) Score 18/24 DGI Impairment Rating 20 to <40% Impaired (Score 15- 19) PT-OP-F Manual Assessment Start: 10/04/17 14:21 Freq: Status: Active Protocol: Document 05/21/19 14:30 DCW (Rec: 05/21/19 15:12 DCW [id number]) Manual Assessments Soft Tissue Assessment Soft Tissue Mobility Assessment Moderate tone in Bilateral thoracic and lumbar paraspinals, piriformis, iliopsoas, and quadratus lumborum. Mild tone in bilateral hamstrings and adductor vinod PT-OP-J Posture/Palpation/Skin Start: 10/04/17 14:21 Freq: Status: Active Protocol: Document 11/12/19 12:05 DCW (Rec: 11/12/19 12:44 DCW [id number]) Posture Evaluation Position Standing Head/C-Spine Posture Forward Head T-Spine Posture Flexible Scoliosis on (L), Increased Kyphosis L-Spine Posture Flexible Scoliosis on (R) Pelvis Posture (L) Iliac Crest Superior Hip Posture (L) Flexed,(R) Flexed Comments Posture Comments Pt's jorge with cues to stand as tall as possible: 5' /c 1 heel heel PT-OP-K Range of Motion Start: 10/04/17 14:21 Freq: Status: Active Protocol: Document 11/12/19 12:05 DCW (Rec: 11/12/19 12:44 DCW [id number]) Lumbar Spine Range of Motion Lumbar Spine Active Degrees Testing Position Standing Comments Max extension, pt is forward flexed 5? at her thoracic spine Shoulder Goniometric Range of Motion Shoulder Left Active Shoulder ROM WFL No Testing Position Sitting Flexion 160 Abduction 152 External Rotation at 0 degrees Abduction 62 Right Active Shoulder ROM WFL No Testing Position Sitting Flexion 122 Abduction 105 External Rotation at 0 degrees Abduction 51 PT-OP-M Strength Start: 10/04/17 14:21 Freq: Status: Active Protocol: Document 12/18/18 13:45 DCW (Rec: 12/18/18 14:23 DCW [id number]) Shoulder Strength Shoulder Manual Muscle Testing Right Flexion 4 Good Abduction (C5) 4+ Good+ External Rotation 4+ Good+ Internal Rotation 5 Normal Left Flexion 4 Good Abduction (C5) 4+ Good+ External Rotation 4+ Good+ Internal Rotation 5 Normal PT-OP-Q Treatments Start: 08/06/17 17:30 Freq: Status: Active Protocol: Document 02/03/20 13:48 DCW (Rec: 02/03/20 14:28 DCW [id number]) Cardio Equipment Upper Body Ergometer (UBE) Duration (Minutes) 5 RPM 60 Seat Position 12 Height 2.5 Therapeutic Exercises Supine Exercises 1 Supine Exercise Name Supine on Towel roll at T10-12 Side bilateral Comments increase thoracolumbar extension Sitting Exercises PROM Abduction Sitting Exercise Name Pullies GH Abduction Side bilateral PROM Flexion Sitting Exercise Name Pullies GH flexion Side bilateral Standing Exercises Rows Standing Exercise Name Rows Side bilateral Resistance Lv 2 Equipment Used T-band Reps/Minutes 2x10 Comments VC for upright posture and slowing down movemnt Shoulder Extension Standing Exercise Name Extension Side bilateral Resistance Lv 2 Equipment Used T-band Reps/Minutes 2x10 Comments VC for upright posture and arm extension Manual Therapy Treatment Soft Tissue Mobilization 4 Body Location Piriformis Mobilization Type Strumming,Sustained Pressure, Trigger Point Release Intensity/Depth Moderate Body Position Sidelying 3 Body Location Quadratus Lumborum Mobilization Type Myofascial Release,Strumming, Sustained Pressure Intensity/Depth Moderate Body Position Sidelying 2 Body Location Glute Med Mobilization Type Strumming,Sustained Pressure Intensity/Depth Moderate Body Position Sidelying 1 Body Location Lumbar Erector Spinae Mobilization Type Myofascial Release,Sustained Pressure Intensity/Depth Moderate Body Position Sidelying Joint Mobilizations 1 Joint Thoracic Spine Direction P->A Grade II Body Position Sidelying Manual Traction Lumbar Details Hip/Iliac crest depression Body Position Sidelying Comments MWM PT-OP-R Modalities Start: 08/06/17 17:30 Freq: Status: Active Protocol: Document 02/03/20 13:48 DCW (Rec: 02/03/20 14:28 DCW [id number]) Electric Stimulation Electric Stimulation Interferential Current (IFC) Body Location Lumbar Spine Duration (Minutes) 15 Patient Position Sitting Combined With Heat/Cold Hot Pack Comments stool under B feet PT-OP-T Assessment and Plan Start: 08/06/17 17:30 Freq: Status: Active Protocol: Document 02/03/20 13:48 DCW (Rec: 02/03/20 14:28 DCW [id number]) Physical Therapy Assessment Assessment Summary Assessment Pt moving better today, not as stiff or sore as last week. Improved posture during band exercises. Physical Therapy Plan Frequency and Duration Frequency of Treatment 1x/Week Duration of Treatment 3 months Plan of Care Start Date 11/12/19 Plan of Care End Date 02/10/20 Therapeutic Interventions Therapeutic Interventions Aquatic Therapy,Home Exercise Program,Joint Mobilizations, Manual Therapy,Neuromuscular Re-education,Self-Care/Home Management,Soft Tissue Mobilization,Therapeutic Exercises Modalities Cold Pack/Ice Massage,Electric Stimulation,Hot Packs Next Visit Focus/Plan Next Note Type Treatment Note Next Visit Plan Next tx STMs to abdominals, psoas to compliment posture. *Continue Balance training, posture training, shoulder/ scapular strengthening, STM
--- NOTE | 2020-02-10 14:30 | PT.OTN ---
Current Diagnoses Scoliosis, unspecified (02/10/20) Spondylosis without myelopathy or radiculopathy, cervical region (02/10/20) Pain in thoracic spine (02/10/20) Physical Therapy Treatment Note PT-OP-A Visit Information Start: 08/06/17 17:30 Freq: Status: Active Protocol: Document 02/10/20 13:45 DCW (Rec: 02/10/20 14:30 DCW [id number]) Out-Patient Physical Therapy Visit Information Visit Information Visit Type Treatment Note Visit Start Time 13:45 Visit Stop Time 14:40 Total Visit Minutes 55 Visit Number 112 Number of CERTIFIED MEDICATION TECHNICIAN Visits 0 PT-OP-B Current Condition Start: 10/04/17 14:21 Freq: Status: Active Protocol: Document 02/20/19 13:45 DCW (Rec: 02/20/19 14:36 DCW [id number]) Current Condition History of Current Condition History of Current Condition Please see patient's chart in Therapy Source for complete history and initial evaluation ADDENDEM 02/20/19: Pt has a new referral to work on balance and gait. Pt notes she doesn't have any recent falls , but that's because I'm good at grabbing things before I go down. Pt has been using a SPC for assistance, and has recently gotten a FWW, although she has yet to use it . Pt admits that she has not been picking my feet up very well. PT-OP-C Subjective Start: 08/06/17 17:30 Freq: Status: Active Protocol: Document 02/10/20 13:45 DCW (Rec: 02/10/20 14:30 DCW [id number]) OP-PT Subjective Patient Comments Patient Comments Pt reports she is doing alright today overall, her back is hurting, but the shoulders are feeling reasonable. PT-OP-D Balance Start: 02/20/19 13:46 Freq: Status: Active Protocol: Document 11/12/19 12:05 DCW (Rec: 11/12/19 12:44 DCW [id number]) Balance Tests Yanez Balance Test Yanez Balance Test Score 45/56 Yanez Impairment Rating 1 to 19% Impaired (Score 45-55 ) Yanez Balance Assessment Evaluation Sitting to Standing Ability Independent w/out Hands Unsupported Stance Safely- 2 minutes Sitting Unsupported, Feet on Floor Safely- 2 minutes Standing to Sitting Ability Safely, Minimal Hand Use Transfer Ability Safely, Minimal Hand Use Unsupported Stance- Eyes Closed Safely, 10 seconds Unsupported Stance- Eyes Open Independent, 1 minute Reaching Forward Standing Safely, 5 inches Pick- Up Object From Floor Independent/Safe Look Behind Shoulder - Standing Shifts Weight Unilateral Turning 360 Degrees Turns slowly, but safely Unsupported Stance, Alternating Feet on 2 Steps w/Minimum Assist Stair Unsupported Tandem Stance Holds Tandem- 30 seconds Unilateral Leg Stance Lifts Leg/Unable to Hold Total Score Yanez Total Score (out of 56 points) 45 Yanez Impairment Rating 1 to 19% Impaired (Score 45-55 ) PT-OP-E Functional Tests Start: 02/20/19 13:46 Freq: Status: Active Protocol: Document 11/12/19 12:05 DCW (Rec: 11/12/19 12:44 DCW [id number]) Functional Tests 2 Minute Walk Test Distance 240 Device Used none Comments 2.0 ft/sec Dynamic Gait Index (DGI) Score 18/24 DGI Impairment Rating 20 to <40% Impaired (Score 15- 19) PT-OP-F Manual Assessment Start: 10/04/17 14:21 Freq: Status: Active Protocol: Document 05/21/19 14:30 DCW (Rec: 05/21/19 15:12 DCW [id number]) Manual Assessments Soft Tissue Assessment Soft Tissue Mobility Assessment Moderate tone in Bilateral thoracic and lumbar paraspinals, piriformis, iliopsoas, and quadratus lumborum. Mild tone in bilateral hamstrings and adductor vinod PT-OP-J Posture/Palpation/Skin Start: 10/04/17 14:21 Freq: Status: Active Protocol: Document 11/12/19 12:05 DCW (Rec: 11/12/19 12:44 DCW [id number]) Posture Evaluation Position Standing Head/C-Spine Posture Forward Head T-Spine Posture Flexible Scoliosis on (L), Increased Kyphosis L-Spine Posture Flexible Scoliosis on (R) Pelvis Posture (L) Iliac Crest Superior Hip Posture (L) Flexed,(R) Flexed Comments Posture Comments Pt's jorge with cues to stand as tall as possible: 5' /c 1 heel heel PT-OP-K Range of Motion Start: 10/04/17 14:21 Freq: Status: Active Protocol: Document 11/12/19 12:05 DCW (Rec: 11/12/19 12:44 DCW [id number]) Lumbar Spine Range of Motion Lumbar Spine Active Degrees Testing Position Standing Comments Max extension, pt is forward flexed 5? at her thoracic spine Shoulder Goniometric Range of Motion Shoulder Left Active Shoulder ROM WFL No Testing Position Sitting Flexion 160 Abduction 152 External Rotation at 0 degrees Abduction 62 Right Active Shoulder ROM WFL No Testing Position Sitting Flexion 122 Abduction 105 External Rotation at 0 degrees Abduction 51 PT-OP-M Strength Start: 10/04/17 14:21 Freq: Status: Active Protocol: Document 12/18/18 13:45 DCW (Rec: 12/18/18 14:23 DCW [id number]) Shoulder Strength Shoulder Manual Muscle Testing Right Flexion 4 Good Abduction (C5) 4+ Good+ External Rotation 4+ Good+ Internal Rotation 5 Normal Left Flexion 4 Good Abduction (C5) 4+ Good+ External Rotation 4+ Good+ Internal Rotation 5 Normal PT-OP-Q Treatments Start: 08/06/17 17:30 Freq: Status: Active Protocol: Document 02/10/20 13:45 DCW (Rec: 02/10/20 14:30 DCW [id number]) Cardio Equipment Upper Body Ergometer (UBE) Duration (Minutes) 5 RPM 60 Seat Position 12 Height 2.5 Therapeutic Exercises Supine Exercises 1 Supine Exercise Name Supine on Towel roll at T10-12 Side bilateral Comments increase thoracolumbar extension Standing Exercises Rows Standing Exercise Name Rows Side bilateral Resistance Lv 2 Equipment Used T-band Reps/Minutes 2x10 Comments VC for upright posture and slowing down movemnt Shoulder Extension Standing Exercise Name Extension Side bilateral Resistance Lv 2 Equipment Used T-band Reps/Minutes 2x10 Comments VC for upright posture and arm extension Manual Therapy Treatment Soft Tissue Mobilization 4 Body Location Piriformis Mobilization Type Strumming,Sustained Pressure, Trigger Point Release Intensity/Depth Moderate Body Position Sidelying 3 Body Location Quadratus Lumborum Mobilization Type Myofascial Release,Strumming, Sustained Pressure Intensity/Depth Moderate Body Position Sidelying 2 Body Location Glute Med Mobilization Type Strumming,Sustained Pressure Intensity/Depth Moderate Body Position Sidelying 1 Body Location Lumbar Erector Spinae Mobilization Type Myofascial Release,Sustained Pressure Intensity/Depth Moderate Body Position Sidelying Joint Mobilizations 1 Joint Thoracic Spine Direction P->A Grade II Body Position Sidelying Manual Traction Lumbar Details Hip/Iliac crest depression Body Position Sidelying Comments MWM PT-OP-R Modalities Start: 08/06/17 17:30 Freq: Status: Active Protocol: Document 02/10/20 13:45 DCW (Rec: 02/10/20 14:30 DCW [id number]) Electric Stimulation Electric Stimulation Interferential Current (IFC) Body Location Lumbar Spine Duration (Minutes) 15 Patient Position Sitting Combined With Heat/Cold Hot Pack Comments stool under B feet PT-OP-T Assessment and Plan Start: 08/06/17 17:30 Freq: Status: Active Protocol: Document 02/10/20 13:45 DCW (Rec: 02/10/20 14:30 DCW [id number]) Physical Therapy Assessment Goals Seven Impairment Pt displays increased falls risk Short Term Goal (STG) Pt to score a 47/56 on the Yanez Balance Scale to demonstrate a decreased falls risk STG Duration 12/13/19 - Improving 45/56 Care Home Goal (LTG) Pt to score a 18/24 on the DGI - MET New Goal: LTG Duration 01/12/20 - Improving - Six Impairment Difficulty of getting in the car Replanter Goal (LTG) Patient will get in to the car with proper mechanics without difficulty or low back pain LTG Duration Met Five Impairment Difficulty of lifting laundry from floor to shoulder level Replanter Goal (LTG) Patient will learn good lifting mechanics to prevent further low back pain. LTG Duration 01/12/20 Four Impairment Palpable muscle tone Replanter Goal (LTG) Pt muscle tone grossly to mild levels of tone 08/13/1923-Jcu-Aigoxp tone LTG Duration 01/12/20 Three Impairment Thoracic Spine ROM Short Term Goal (STG) Thoracic spine to lacking 10 degrees from neutral at full extension STG Duration Met Care Home Goal (LTG) Thoracic spine to neutral at full extension LTG Duration 01/12/20 - Decline to lacking 5 degrees Two Impairment Pain Replanter Goal (LTG) Pt to report decreased pain to a max of 4/10 LTG Duration 01/12/20 One Impairment Activity tolerance Replanter Goal (LTG) Pt to tolerate gardening with no increased pain for three hours 08/13/19 - pt tolerating two hours of gardening with increased pain after 30 minutes LTG Duration 01/12/20 Assessment Summary Assessment Pt moving a little better today again, although at end of session did have some sudden pain in hip after moving my leg the wrong way. I didn't know it was the wrong way until it happened. Physical Therapy Plan Frequency and Duration Frequency of Treatment 1x/Week Duration of Treatment 3 months Plan of Care Start Date 11/12/19 Plan of Care End Date 02/10/20 Therapeutic Interventions Therapeutic Interventions Aquatic Therapy,Home Exercise Program,Joint Mobilizations, Manual Therapy,Neuromuscular Re-education,Self-Care/Home Management,Soft Tissue Mobilization,Therapeutic Exercises Modalities Cold Pack/Ice Massage,Electric Stimulation,Hot Packs Next Visit Focus/Plan Next Note Type Treatment Note Next Visit Plan Next tx STMs to abdominals, psoas to compliment posture. *Continue Balance training, posture training, shoulder/ scapular strengthening, STM
--- NOTE | 2020-02-17 15:58 | PT.OTN ---
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) Pain in thoracic spine (02/17/20) Physical Therapy Treatment Note PT-OP-A Visit Information Start: 08/06/17 17:30 Freq: Status: Active Protocol: Document 02/17/20 13:45 DCW (Rec: 02/17/20 15:58 DCW [id number]) Out-Patient Physical Therapy Visit Information Visit Information Visit Type Progress Note Visit Start Time 13:45 Visit Stop Time 14:30 Total Visit Minutes 45 Visit Number 113 Number of ETL DATABASE DEVELOPER Visits 0 PT-OP-B Current Condition Start: 10/04/17 14:21 Freq: Status: Active Protocol: Document 02/20/19 13:45 DCW (Rec: 02/20/19 14:36 DCW [id number]) Current Condition History of Current Condition History of Current Condition Please see patient's chart in Therapy Source for complete history and initial evaluation ADDENDEM 02/20/19: Pt has a new referral to work on balance and gait. Pt notes she doesn't have any recent falls , but that's because I'm good at grabbing things before I go down. Pt has been using a SPC for assistance, and has recently gotten a FWW, although she has yet to use it . Pt admits that she has not been picking my feet up very well. PT-OP-C Subjective Start: 08/06/17 17:30 Freq: Status: Active Protocol: Document 02/17/20 13:45 DCW (Rec: 02/17/20 15:58 DCW [id number]) OP-PT Subjective Patient Comments Patient Comments Pt having a good day overall today, but feels a little tired. PT-OP-D Balance Start: 02/20/19 13:46 Freq: Status: Active Protocol: Document 02/17/20 13:45 DCW (Rec: 02/17/20 14:23 DCW [id number]) Balance Tests Yanez Balance Test Yanez Balance Test Score 46/56 Yanez Impairment Rating 1 to 19% Impaired (Score 45-55 ) Yanez Balance Assessment Evaluation Sitting to Standing Ability Independent w/out Hands Unsupported Stance Safely- 2 minutes Sitting Unsupported, Feet on Floor Safely- 2 minutes Standing to Sitting Ability Safely, Minimal Hand Use Transfer Ability Safely, Minimal Hand Use Unsupported Stance- Eyes Closed Safely, 10 seconds Unsupported Stance- Eyes Open Independent, 1 minute Reaching Forward Standing Safely, 5 inches Pick- Up Object From Floor Independent/Safe Look Behind Shoulder - Standing Turns Sideways Only Turning 360 Degrees Turns slowly, but safely Unsupported Stance, Alternating Feet on (I)- 8 Steps in > 20 secs Stair Unsupported Tandem Stance Holds Tandem- 30 seconds Unilateral Leg Stance Lifts Leg/Unable to Hold Total Score Yanez Total Score (out of 56 points) 46 Yanez Impairment Rating 1 to 19% Impaired (Score 45-55 ) PT-OP-E Functional Tests Start: 02/20/19 13:46 Freq: Status: Active Protocol: Document 02/17/20 13:45 DCW (Rec: 02/17/20 14:23 DCW [id number]) Functional Tests 2 Minute Walk Test Distance 242 Device Used SPC Comments 2.02 ft/sec Dynamic Gait Index (DGI) Score 17/24 DGI Impairment Rating 20 to <40% Impaired (Score 15- 19) PT-OP-F Manual Assessment Start: 10/04/17 14:21 Freq: Status: Active Protocol: Document 05/21/19 14:30 DCW (Rec: 05/21/19 15:12 DCW [id number]) Manual Assessments Soft Tissue Assessment Soft Tissue Mobility Assessment Moderate tone in Bilateral thoracic and lumbar paraspinals, piriformis, iliopsoas, and quadratus lumborum. Mild tone in bilateral hamstrings and adductor vinod PT-OP-J Posture/Palpation/Skin Start: 10/04/17 14:21 Freq: Status: Active Protocol: Document 02/17/20 13:45 DCW (Rec: 02/17/20 14:23 DCW [id number]) Posture Evaluation Position Standing Head/C-Spine Posture Forward Head T-Spine Posture Flexible Scoliosis on (L), Increased Kyphosis L-Spine Posture Flexible Scoliosis on (R) Pelvis Posture (L) Iliac Crest Superior Hip Posture (L) Flexed,(R) Flexed Comments Posture Comments Pt's jorge with cues to stand as tall as possible: 5' /c 1 heel heel PT-OP-K Range of Motion Start: 10/04/17 14:21 Freq: Status: Active Protocol: Document 02/17/20 13:45 DCW (Rec: 02/17/20 14:23 DCW [id number]) Lumbar Spine Range of Motion Lumbar Spine Active Degrees Testing Position Standing Comments Max extension, pt is forward flexed 6? at her thoracic spine Shoulder Goniometric Range of Motion Shoulder Left Active Shoulder ROM WFL No Testing Position Sitting Flexion 159 Abduction 158 External Rotation at 0 degrees Abduction 60 Right Active Shoulder ROM WFL No Testing Position Sitting Flexion 146 Abduction 129 External Rotation at 0 degrees Abduction 54 PT-OP-M Strength Start: 10/04/17 14:21 Freq: Status: Active Protocol: Document 12/18/18 13:45 DCW (Rec: 12/18/18 14:23 DCW [id number]) Shoulder Strength Shoulder Manual Muscle Testing Right Flexion 4 Good Abduction (C5) 4+ Good+ External Rotation 4+ Good+ Internal Rotation 5 Normal Left Flexion 4 Good Abduction (C5) 4+ Good+ External Rotation 4+ Good+ Internal Rotation 5 Normal PT-OP-Q Treatments Start: 08/06/17 17:30 Freq: Status: Active Protocol: Document 02/17/20 13:45 DCW (Rec: 02/17/20 15:58 DCW [id number]) Neuro Re-Education Treatment Other Activities Testing Details 2 MWT, DGI, Yanez PT-OP-R Modalities Start: 08/06/17 17:30 Freq: Status: Active Protocol: Document 02/10/20 13:45 DCW (Rec: 02/10/20 14:30 DCW [id number]) Electric Stimulation Electric Stimulation Interferential Current (IFC) Body Location Lumbar Spine Duration (Minutes) 15 Patient Position Sitting Combined With Heat/Cold Hot Pack Comments stool under B feet PT-OP-T Assessment and Plan Start: 08/06/17 17:30 Freq: Status: Active Protocol: Document 02/17/20 13:45 DCW (Rec: 02/17/20 15:58 DCW [id number]) Physical Therapy Assessment Impairments Impairments Activity Tolerance,Balance, Functional Activities, Functional Mobility,Gait,Pain, Posture,ROM,Soft Tissue Mobility,Strength,Tone Goals Seven Impairment Pt displays increased falls risk Short Term Goal (STG) Pt to score a 47/56 on the Yanez Balance Scale to demonstrate a decreased falls risk STG Duration 04/01/20 - Improving 46/56 Shelter Goal (LTG) Pt to score a 1824 on the DGI - MET New Goal: LTG Duration 05/19/20 - Mild decline Six Impairment Difficulty of getting in the car Automotive Customer Experience Advisor Goal (LTG) Patient will get in to the car with proper mechanics without difficulty or low back pain LTG Duration Met Five Impairment Difficulty of lifting laundry from floor to shoulder level Automotive Customer Experience Advisor Goal (LTG) Patient will learn good lifting mechanics to prevent further low back pain. LTG Duration Met Four Impairment Palpable muscle tone Shelter Goal (LTG) Pt muscle tone grossly to mild levels of tone 02/17/2061-Rds-Pqcujq tone LTG Duration 05/19/20 Three Impairment Thoracic Spine ROM Short Term Goal (STG) Thoracic spine to lacking 10 degrees from neutral at full extension STG Duration Met Automotive Customer Experience Advisor Goal (LTG) Thoracic spine to neutral at full extension LTG Duration 05/19/20 - Decline to lacking 6 degrees Two Impairment Pain Automotive Customer Experience Advisor Goal (LTG) Pt to report decreased pain to a max of 4/10 LTG Duration 05/19/20 One Impairment Activity tolerance Shelter Goal (LTG) Pt to tolerate gardening with no increased pain for three hours 02/17/20 - pt tolerating two hours of gardening with increased pain after 30 minutes LTG Duration 05/19/20 Assessment Summary Assessment Many of pt's tests (2 MWT, Yanez, DGI) are largely unchanged, which may indicate a progress plateau, however pt has shown significant improvement with shoulder ROM, and posture has not been declining, which should continue to improve with further skilled therapeutic intervention. Physical Therapy Plan Frequency and Duration Frequency of Treatment 1x/Week Duration of Treatment 3 months Plan of Care Start Date 02/17/20 Plan of Care End Date 05/19/20 Therapeutic Interventions Therapeutic Interventions Aquatic Therapy,Home Exercise Program,Joint Mobilizations, Manual Therapy,Neuromuscular Re-education,Self-Care/Home Management,Soft Tissue Mobilization,Therapeutic Exercises Modalities Cold Pack/Ice Massage,Electric Stimulation,Hot Packs Next Visit Focus/Plan Next Note Type Treatment Note Next Visit Plan Next tx STMs to abdominals, psoas to compliment posture. *Continue Balance training, posture training, shoulder/ scapular strengthening, STM
--- NOTE | 2020-02-17 15:58 | PT.OPPOC ---
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) Pain in thoracic spine (02/17/20) Visit Care Team Role Provider Type Jia Sheridan MD Attending Provider Physician Family Provider Primary Care Provider Specialty: [facility] Practice Address: [address] [place] [address], [facility] [place], [facility] Email: [email or web address] Plan Of Care PT-OP-T Assessment and Plan Start: 08/06/17 17:30 Freq: Status: Active Protocol: Document 02/17/20 13:45 DCW (Rec: 02/17/20 15:58 DCW [id number]) Physical Therapy Assessment Impairments Impairments Activity Tolerance,Balance, Functional Activities, Functional Mobility,Gait,Pain, Posture,ROM,Soft Tissue Mobility,Strength,Tone Goals Seven Impairment Pt displays increased falls risk Short Term Goal (STG) Pt to score a 47/56 on the Yanez Balance Scale to demonstrate a decreased falls risk STG Duration 04/01/20 - Improving 46/56 Jail Goal (LTG) Pt to score a 18/24 on the DGI - MET New Goal: LTG Duration 05/19/20 - Mild decline Six Impairment Difficulty of getting in the car Electronic Plotting System Operator Goal (LTG) Patient will get in to the car with proper mechanics without difficulty or low back pain LTG Duration Met Five Impairment Difficulty of lifting laundry from floor to shoulder level Electronic Plotting System Operator Goal (LTG) Patient will learn good lifting mechanics to prevent further low back pain. LTG Duration Met Four Impairment Palpable muscle tone Electronic Plotting System Operator Goal (LTG) Pt muscle tone grossly to mild levels of tone 02/17/2091-Gcf-Mztalf tone LTG Duration 05/19/20 Three Impairment Thoracic Spine ROM Short Term Goal (STG) Thoracic spine to lacking 10 degrees from neutral at full extension STG Duration Met Jail Goal (LTG) Thoracic spine to neutral at full extension LTG Duration 05/19/20 - Decline to lacking 6 degrees Two Impairment Pain Electronic Plotting System Operator Goal (LTG) Pt to report decreased pain to a max of 4/10 LTG Duration 05/19/20 One Impairment Activity tolerance Electronic Plotting System Operator Goal (LTG) Pt to tolerate gardening with no increased pain for three hours 02/17/20 - pt tolerating two hours of gardening with increased pain after 30 minutes LTG Duration 05/19/20 Assessment Summary Assessment Many of pt's tests (2 MWT, Yanez, DGI) are largely unchanged, which may indicate a progress plateau, however pt has shown significant improvement with shoulder ROM, and posture has not been declining, which should continue to improve with further skilled therapeutic intervention. Physical Therapy Plan Frequency and Duration Frequency of Treatment 1x/Week Duration of Treatment 3 months Plan of Care Start Date 02/17/20 Plan of Care End Date 05/19/20 Therapeutic Interventions Therapeutic Interventions Aquatic Therapy,Home Exercise Program,Joint Mobilizations, Manual Therapy,Neuromuscular Re-education,Self-Care/Home Management,Soft Tissue Mobilization,Therapeutic Exercises Modalities Cold Pack/Ice Massage,Electric Stimulation,Hot Packs Next Visit Focus/Plan Next Note Type Treatment Note Next Visit Plan Next tx STMs to abdominals, psoas to compliment posture. *Continue Balance training, posture training, shoulder/ scapular strengthening, STM Plan of Care Dates Plan of Care Start Date 02/17/20 Plan of Care End Date 05/19/20 Electronically Signed by: Wallace Wilson, PT 02/17/20 [id number] Please Sign and Return: I have reviewed this Plan of Care and certify that the skilled therapy services above are required to meet the patient?s needs. Physician Signature Date Printed Name and Credentials Clinical Instructor Signature Printed Name and Credentials
--- NOTE | 2020-03-02 16:07 | PT.OTN ---
Current Diagnoses Scoliosis, unspecified (03/02/20) Spondylosis without myelopathy or radiculopathy, cervical region (03/02/20) Pain in thoracic spine (03/02/20) Physical Therapy Treatment Note PT-OP-A Visit Information Start: 08/06/17 17:30 Freq: Status: Active Protocol: Document 03/02/20 15:18 DCW (Rec: 03/02/20 16:06 DCW [id number]) Out-Patient Physical Therapy Visit Information Visit Information Visit Type Treatment Note Visit Start Time 15:18 Visit Stop Time 16:13 Total Visit Minutes 55 Visit Number 114 Number of GRAIN MILLER HELPER Visits 0 PT-OP-B Current Condition Start: 10/04/17 14:21 Freq: Status: Active Protocol: Document 02/20/19 13:45 DCW (Rec: 02/20/19 14:36 DCW [id number]) Current Condition History of Current Condition History of Current Condition Please see patient's chart in Therapy Source for complete history and initial evaluation ADDENDEM 02/20/19: Pt has a new referral to work on balance and gait. Pt notes she doesn't have any recent falls , but that's because I'm good at grabbing things before I go down. Pt has been using a SPC for assistance, and has recently gotten a FWW, although she has yet to use it . Pt admits that she has not been picking my feet up very well. PT-OP-C Subjective Start: 08/06/17 17:30 Freq: Status: Active Protocol: Document 03/02/20 15:18 DCW (Rec: 03/02/20 16:06 DCW [id number]) OP-PT Subjective Patient Comments Patient Comments My shoulder is really cranky today. PT-OP-D Balance Start: 02/20/19 13:46 Freq: Status: Active Protocol: Document 02/17/20 13:45 DCW (Rec: 02/17/20 14:23 DCW [id number]) Balance Tests Yanez Balance Test Yanez Balance Test Score 46/56 Yanez Impairment Rating 1 to 19% Impaired (Score 45-55 ) Yanez Balance Assessment Evaluation Sitting to Standing Ability Independent w/out Hands Unsupported Stance Safely- 2 minutes Sitting Unsupported, Feet on Floor Safely- 2 minutes Standing to Sitting Ability Safely, Minimal Hand Use Transfer Ability Safely, Minimal Hand Use Unsupported Stance- Eyes Closed Safely, 10 seconds Unsupported Stance- Eyes Open Independent, 1 minute Reaching Forward Standing Safely, 5 inches Pick- Up Object From Floor Independent/Safe Look Behind Shoulder - Standing Turns Sideways Only Turning 360 Degrees Turns slowly, but safely Unsupported Stance, Alternating Feet on (I)- 8 Steps in > 20 secs Stair Unsupported Tandem Stance Holds Tandem- 30 seconds Unilateral Leg Stance Lifts Leg/Unable to Hold Total Score Yanez Total Score (out of 56 points) 46 Yanez Impairment Rating 1 to 19% Impaired (Score 45-55 ) PT-OP-E Functional Tests Start: 02/20/19 13:46 Freq: Status: Active Protocol: Document 02/17/20 13:45 DCW (Rec: 02/17/20 14:23 DCW [id number]) Functional Tests 2 Minute Walk Test Distance 242 Device Used SPC Comments 2.02 ft/sec Dynamic Gait Index (DGI) Score 17/24 DGI Impairment Rating 20 to <40% Impaired (Score 15- 19) PT-OP-F Manual Assessment Start: 10/04/17 14:21 Freq: Status: Active Protocol: Document 05/21/19 14:30 DCW (Rec: 05/21/19 15:12 DCW [id number]) Manual Assessments Soft Tissue Assessment Soft Tissue Mobility Assessment Moderate tone in Bilateral thoracic and lumbar paraspinals, piriformis, iliopsoas, and quadratus lumborum. Mild tone in bilateral hamstrings and adductor vinod PT-OP-J Posture/Palpation/Skin Start: 10/04/17 14:21 Freq: Status: Active Protocol: Document 02/17/20 13:45 DCW (Rec: 02/17/20 14:23 DCW [id number]) Posture Evaluation Position Standing Head/C-Spine Posture Forward Head T-Spine Posture Flexible Scoliosis on (L), Increased Kyphosis L-Spine Posture Flexible Scoliosis on (R) Pelvis Posture (L) Iliac Crest Superior Hip Posture (L) Flexed,(R) Flexed Comments Posture Comments Pt's jorge with cues to stand as tall as possible: 5' /c 1 heel heel PT-OP-K Range of Motion Start: 10/04/17 14:21 Freq: Status: Active Protocol: Document 02/17/20 13:45 DCW (Rec: 02/17/20 14:23 DCW [id number]) Lumbar Spine Range of Motion Lumbar Spine Active Degrees Testing Position Standing Comments Max extension, pt is forward flexed 6? at her thoracic spine Shoulder Goniometric Range of Motion Shoulder Left Active Shoulder ROM WFL No Testing Position Sitting Flexion 159 Abduction 158 External Rotation at 0 degrees Abduction 60 Right Active Shoulder ROM WFL No Testing Position Sitting Flexion 146 Abduction 129 External Rotation at 0 degrees Abduction 54 PT-OP-M Strength Start: 10/04/17 14:21 Freq: Status: Active Protocol: Document 12/18/18 13:45 DCW (Rec: 12/18/18 14:23 DCW [id number]) Shoulder Strength Shoulder Manual Muscle Testing Right Flexion 4 Good Abduction (C5) 4+ Good+ External Rotation 4+ Good+ Internal Rotation 5 Normal Left Flexion 4 Good Abduction (C5) 4+ Good+ External Rotation 4+ Good+ Internal Rotation 5 Normal PT-OP-Q Treatments Start: 08/06/17 17:30 Freq: Status: Active Protocol: Document 03/02/20 15:18 DCW (Rec: 03/02/20 16:06 DCW [id number]) Cardio Equipment Upper Body Ergometer (UBE) Duration (Minutes) 5 RPM 60 Seat Position 12 Height 2.5 Therapeutic Exercises Supine Exercises 1 Supine Exercise Name Supine on Towel roll at T10-12 Side bilateral Comments increase thoracolumbar extension Sitting Exercises PROM Abduction Sitting Exercise Name Pullies GH Abduction Side bilateral PROM Flexion Sitting Exercise Name Pullies GH flexion Side bilateral Standing Exercises Rows Standing Exercise Name Rows Side bilateral Resistance Lv 2 Equipment Used T-band Reps/Minutes 2x10 Comments VC for upright posture and slowing down movemnt Shoulder Extension Standing Exercise Name Extension Side bilateral Resistance Lv 2 Equipment Used T-band Reps/Minutes 2x10 Comments VC for upright posture and arm extension Manual Therapy Treatment Soft Tissue Mobilization 4 Body Location Piriformis Mobilization Type Strumming,Sustained Pressure, Trigger Point Release Intensity/Depth Moderate Body Position Sidelying 3 Body Location Quadratus Lumborum Mobilization Type Myofascial Release,Strumming, Sustained Pressure Intensity/Depth Moderate Body Position Sidelying 2 Body Location Glute Med Mobilization Type Strumming,Sustained Pressure Intensity/Depth Moderate Body Position Sidelying 1 Body Location Lumbar Erector Spinae Mobilization Type Myofascial Release,Sustained Pressure Intensity/Depth Moderate Body Position Sidelying Joint Mobilizations 1 Joint Thoracic Spine Direction P->A Grade II Body Position Sidelying Manual Traction Lumbar Details Hip/Iliac crest depression Body Position Sidelying Comments MWM PT-OP-R Modalities Start: 08/06/17 17:30 Freq: Status: Active Protocol: Document 03/02/20 15:18 DCW (Rec: 03/02/20 16:07 DCW [id number]) Electric Stimulation Electric Stimulation Interferential Current (IFC) Body Location Lumbar Spine Duration (Minutes) 15 Patient Position Sitting Combined With Heat/Cold Hot Pack Comments stool under B feet PT-OP-T Assessment and Plan Start: 08/06/17 17:30 Freq: Status: Active Protocol: Document 03/02/20 15:18 DCW (Rec: 03/02/20 16:06 DCW [id number]) Physical Therapy Assessment Impairments Impairments Activity Tolerance,Balance, Functional Activities, Functional Mobility,Gait,Pain, Posture,ROM,Soft Tissue Mobility,Strength,Tone Goals Seven Impairment Pt displays increased falls risk Short Term Goal (STG) Pt to score a 47/56 on the Yanez Balance Scale to demonstrate a decreased falls risk STG Duration 04/01/20 - Improving 46/56 Regional Environmental Manager Goal (LTG) Pt to score a 18/24 on the DGI - MET New Goal: LTG Duration 05/19/20 - Mild decline Six Impairment Difficulty of getting in the car Prison Goal (LTG) Patient will get in to the car with proper mechanics without difficulty or low back pain LTG Duration Met Five Impairment Difficulty of lifting laundry from floor to shoulder level Regional Environmental Manager Goal (LTG) Patient will learn good lifting mechanics to prevent further low back pain. LTG Duration Met Four Impairment Palpable muscle tone Regional Environmental Manager Goal (LTG) Pt muscle tone grossly to mild levels of tone 02/17/2065-Jyo-Sxvsbb tone LTG Duration 05/19/20 Three Impairment Thoracic Spine ROM Short Term Goal (STG) Thoracic spine to lacking 10 degrees from neutral at full extension STG Duration Met Prison Goal (LTG) Thoracic spine to neutral at full extension LTG Duration 05/19/20 - Decline to lacking 6 degrees Two Impairment Pain Prison Goal (LTG) Pt to report decreased pain to a max of 4/10 LTG Duration 2/17/21 One Impairment Activity tolerance Prison Goal (LTG) Pt to tolerate gardening with no increased pain for three hours 02/17/20 - pt tolerating two hours of gardening with increased pain after 30 minutes LTG Duration 05/19/20 Assessment Summary Assessment Pt moving tenderly today, had increased pain with supine on towel roll. Shoulder pain and difficulty with ROM. Physical Therapy Plan Frequency and Duration Frequency of Treatment 1x/Week Duration of Treatment 3 months Plan of Care Start Date 02/17/20 Plan of Care End Date 05/19/20 Therapeutic Interventions Therapeutic Interventions Aquatic Therapy,Home Exercise Program,Joint Mobilizations, Manual Therapy,Neuromuscular Re-education,Self-Care/Home Management,Soft Tissue Mobilization,Therapeutic Exercises Modalities Cold Pack/Ice Massage,Electric Stimulation,Hot Packs Next Visit Focus/Plan Next Note Type Treatment Note Next Visit Plan Next tx STMs to abdominals, psoas to compliment posture. *Continue Balance training, posture training, shoulder/ scapular strengthening, STM
--- NOTE | 2020-03-09 13:00 | PT-OP ANOTE ---
Pt called and cancelled today's PM appt, feeling ill.
--- NOTE | 2020-03-16 15:16 | PT.OTN ---
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) Pain in thoracic spine (03/16/20) Physical Therapy Treatment Note PT-OP-A Visit Information Start: 08/06/17 17:30 Freq: Status: Active Protocol: Document 03/16/20 14:30 DCW (Rec: 03/16/20 15:16 DCW [id number]) Out-Patient Physical Therapy Visit Information Visit Information Visit Type Treatment Note Visit Start Time 14:30 Visit Stop Time 15:25 Total Visit Minutes 55 Visit Number 115 Number of OR SCRUB TECH Visits 0 PT-OP-B Current Condition Start: 10/04/17 14:21 Freq: Status: Active Protocol: Document 02/20/19 13:45 DCW (Rec: 02/20/19 14:36 DCW [id number]) Current Condition History of Current Condition History of Current Condition Please see patient's chart in Therapy [facility] for complete history and initial evaluation ADDENDEM 02/20/19: Pt has a new referral to work on balance and gait. Pt notes she doesn't have any recent falls , but that's because I'm good at grabbing things before I go down. Pt has been using a SPC for assistance, and has recently gotten a FWW, although she has yet to use it . Pt admits that she has not been picking my feet up very well. PT-OP-C Subjective Start: 08/06/17 17:30 Freq: Status: Active Protocol: Document 03/16/20 14:30 DCW (Rec: 03/16/20 15:16 DCW [id number]) OP-PT Subjective Patient Comments Patient Comments My ribs are getting to me today. I think I've been sitting and writing too many bernardino cards. PT-OP-D Balance Start: 02/20/19 13:46 Freq: Status: Active Protocol: Document 02/17/20 13:45 DCW (Rec: 02/17/20 14:23 DCW [id number]) Balance Tests Yanez Balance Test Yanez Balance Test Score 46/56 Yanez Impairment Rating 1 to 19% Impaired (Score 45-55 ) Yanez Balance Assessment Evaluation Sitting to Standing Ability Independent w/out Hands Unsupported Stance Safely- 2 minutes Sitting Unsupported, Feet on Floor Safely- 2 minutes Standing to Sitting Ability Safely, Minimal Hand Use Transfer Ability Safely, Minimal Hand Use Unsupported Stance- Eyes Closed Safely, 10 seconds Unsupported Stance- Eyes Open Independent, 1 minute Reaching Forward Standing Safely, 5 inches Pick- Up Object From Floor Independent/Safe Look Behind Shoulder - Standing Turns Sideways Only Turning 360 Degrees Turns slowly, but safely Unsupported Stance, Alternating Feet on (I)- 8 Steps in > 20 secs Stair Unsupported Tandem Stance Holds Tandem- 30 seconds Unilateral Leg Stance Lifts Leg/Unable to Hold Total Score Yanez Total Score (out of 56 points) 46 Yanez Impairment Rating 1 to 19% Impaired (Score 45-55 ) PT-OP-E Functional Tests Start: 02/20/19 13:46 Freq: Status: Active Protocol: Document 02/17/20 13:45 DCW (Rec: 02/17/20 14:23 DCW [id number]) Functional Tests 2 Minute Walk Test Distance 242 Device Used SPC Comments 2.02 ft/sec Dynamic Gait Index (DGI) Score 17/24 DGI Impairment Rating 20 to <40% Impaired (Score 15- 19) PT-OP-F Manual Assessment Start: 10/04/17 14:21 Freq: Status: Active Protocol: Document 05/21/19 14:30 DCW (Rec: 05/21/19 15:12 DCW [id number]) Manual Assessments Soft Tissue Assessment Soft Tissue Mobility Assessment Moderate tone in Bilateral thoracic and lumbar paraspinals, piriformis, iliopsoas, and quadratus lumborum. Mild tone in bilateral hamstrings and adductor vinod PT-OP-J Posture/Palpation/Skin Start: 10/04/17 14:21 Freq: Status: Active Protocol: Document 02/17/20 13:45 DCW (Rec: 02/17/20 14:23 DCW [id number]) Posture Evaluation Position Standing Head/C-Spine Posture Forward Head T-Spine Posture Flexible Scoliosis on (L), Increased Kyphosis L-Spine Posture Flexible Scoliosis on (R) Pelvis Posture (L) Iliac Crest Superior Hip Posture (L) Flexed,(R) Flexed Comments Posture Comments Pt's jorge with cues to stand as tall as possible: 5' /c 1 heel heel PT-OP-K Range of Motion Start: 10/04/17 14:21 Freq: Status: Active Protocol: Document 02/17/20 13:45 DCW (Rec: 02/17/20 14:23 DCW [id number]) Lumbar Spine Range of Motion Lumbar Spine Active Degrees Testing Position Standing Comments Max extension, pt is forward flexed 6? at her thoracic spine Shoulder Goniometric Range of Motion Shoulder Left Active Shoulder ROM WFL No Testing Position Sitting Flexion 159 Abduction 158 External Rotation at 0 degrees Abduction 60 Right Active Shoulder ROM WFL No Testing Position Sitting Flexion 146 Abduction 129 External Rotation at 0 degrees Abduction 54 PT-OP-M Strength Start: 10/04/17 14:21 Freq: Status: Active Protocol: Document 12/18/18 13:45 DCW (Rec: 12/18/18 14:23 DCW [id number]) Shoulder Strength Shoulder Manual Muscle Testing Right Flexion 4 Good Abduction (C5) 4+ Good+ External Rotation 4+ Good+ Internal Rotation 5 Normal Left Flexion 4 Good Abduction (C5) 4+ Good+ External Rotation 4+ Good+ Internal Rotation 5 Normal PT-OP-Q Treatments Start: 08/06/17 17:30 Freq: Status: Active Protocol: Document 03/16/20 14:30 DCW (Rec: 03/16/20 15:16 DCW [id number]) Cardio Equipment Upper Body Ergometer (UBE) Duration (Minutes) 5 RPM 60 Seat Position 12 Height 2.5 Therapeutic Exercises Supine Exercises 1 Supine Exercise Name Supine on Towel roll at T10-12 Side bilateral Comments increase thoracolumbar extension Sitting Exercises PROM Abduction Sitting Exercise Name Pullies GH Abduction Side bilateral PROM Flexion Sitting Exercise Name Pullies GH flexion Side bilateral Manual Therapy Treatment Soft Tissue Mobilization 4 Body Location Piriformis Mobilization Type Strumming,Sustained Pressure, Trigger Point Release Intensity/Depth Moderate Body Position Sidelying 3 Body Location Quadratus Lumborum Mobilization Type Myofascial Release,Strumming, Sustained Pressure Intensity/Depth Moderate Body Position Sidelying 2 Body Location Glute Med Mobilization Type Strumming,Sustained Pressure Intensity/Depth Moderate Body Position Sidelying 1 Body Location Lumbar Erector Spinae Mobilization Type Myofascial Release,Sustained Pressure Intensity/Depth Moderate Body Position Sidelying Joint Mobilizations 1 Joint Thoracic Spine Direction P->A Grade II Body Position Sidelying Manual Traction Lumbar Details Hip/Iliac crest depression Body Position Sidelying Comments MWM PT-OP-R Modalities Start: 08/06/17 17:30 Freq: Status: Active Protocol: Document 03/16/20 14:30 DCW (Rec: 03/16/20 15:16 DCW [id number]) Electric Stimulation Electric Stimulation Interferential Current (IFC) Body Location Lumbar Spine Duration (Minutes) 15 Patient Position Sitting Combined With Heat/Cold Hot Pack Comments stool under B feet PT-OP-T Assessment and Plan Start: 08/06/17 17:30 Freq: Status: Active Protocol: Document 03/16/20 14:30 DCW (Rec: 03/16/20 15:16 DCW [id number]) Physical Therapy Assessment Impairments Impairments Activity Tolerance,Balance, Functional Activities, Functional Mobility,Gait,Pain, Posture,ROM,Soft Tissue Mobility,Strength,Tone Goals Seven Impairment Pt displays increased falls risk Short Term Goal (STG) Pt to score a 47/56 on the Yanez Balance Scale to demonstrate a decreased falls risk STG Duration 04/01/20 - Improving 46/56 Assisted Goal (LTG) Pt to score a 18/24 on the DGI - MET New Goal: LTG Duration 05/19/20 - Mild decline Six Impairment Difficulty of getting in the car Assisted Goal (LTG) Patient will get in to the car with proper mechanics without difficulty or low back pain LTG Duration Met Five Impairment Difficulty of lifting laundry from floor to shoulder level Assisted Goal (LTG) Patient will learn good lifting mechanics to prevent further low back pain. LTG Duration Met Four Impairment Palpable muscle tone Meat Manager Goal (LTG) Pt muscle tone grossly to mild levels of tone 02/17/2044-Iiq-Wwbqmn tone LTG Duration 05/19/20 Three Impairment Thoracic Spine ROM Short Term Goal (STG) Thoracic spine to lacking 10 degrees from neutral at full extension STG Duration Met Meat Manager Goal (LTG) Thoracic spine to neutral at full extension LTG Duration 05/19/20 - Decline to lacking 6 degrees Two Impairment Pain Assisted Goal (LTG) Pt to report decreased pain to a max of 4/10 LTG Duration 05/19/20 One Impairment Activity tolerance Meat Manager Goal (LTG) Pt to tolerate gardening with no increased pain for three hours 02/17/20 - pt tolerating two hours of gardening with increased pain after 30 minutes LTG Duration 05/19/20 Assessment Summary Assessment Pt doing better today, STM not as bad as it had been, especially with two weeks in between sessions. Physical Therapy Plan Frequency and Duration Frequency of Treatment 1x/Week Duration of Treatment 3 months Plan of Care Start Date 02/17/20 Plan of Care End Date 05/19/20 Therapeutic Interventions Therapeutic Interventions Aquatic Therapy,Home Exercise Program,Joint Mobilizations, Manual Therapy,Neuromuscular Re-education,Self-Care/Home Management,Soft Tissue Mobilization,Therapeutic Exercises Modalities Cold Pack/Ice Massage,Electric Stimulation,Hot Packs Next Visit Focus/Plan Next Note Type Treatment Note Next Visit Plan Next tx STMs to abdominals, psoas to compliment posture. *Continue Balance training, posture training, shoulder/ scapular strengthening, STM
--- NOTE | 2020-03-23 14:33 | PT.OTN ---
Current Diagnoses Scoliosis, unspecified (03/23/20) Spondylosis without myelopathy or radiculopathy, cervical region (03/23/20) Pain in thoracic spine (03/23/20) Physical Therapy Treatment Note PT-OP-A Visit Information Start: 08/06/17 17:30 Freq: Status: Active Protocol: Document 03/23/20 13:45 DCW (Rec: 03/23/20 14:33 DCW [id number]) Out-Patient Physical Therapy Visit Information Visit Information Visit Type Treatment Note Visit Start Time 13:45 Visit Stop Time 14:40 Total Visit Minutes 55 Visit Number 116 Number of ARMATURE WINDER Visits 0 PT-OP-B Current Condition Start: 10/04/17 14:21 Freq: Status: Active Protocol: Document 02/20/19 13:45 DCW (Rec: 02/20/19 14:36 DCW [id number]) Current Condition History of Current Condition History of Current Condition Please see patient's chart in Therapy Source for complete history and initial evaluation ADDENDEM 02/20/19: Pt has a new referral to work on balance and gait. Pt notes she doesn't have any recent falls , but that's because I'm good at grabbing things before I go down. Pt has been using a SPC for assistance, and has recently gotten a FWW, although she has yet to use it . Pt admits that she has not been picking my feet up very well. PT-OP-C Subjective Start: 08/06/17 17:30 Freq: Status: Active Protocol: Document 03/23/20 13:45 DCW (Rec: 03/23/20 14:33 DCW [id number]) OP-PT Subjective Patient Comments Patient Comments Pt reports shes doing pretty well today. PT-OP-D Balance Start: 02/20/19 13:46 Freq: Status: Active Protocol: Document 02/17/20 13:45 DCW (Rec: 02/17/20 14:23 DCW [id number]) Balance Tests Yanez Balance Test Yanez Balance Test Score 46/56 Yanez Impairment Rating 1 to 19% Impaired (Score 45-55 ) Yanez Balance Assessment Evaluation Sitting to Standing Ability Independent w/out Hands Unsupported Stance Safely- 2 minutes Sitting Unsupported, Feet on Floor Safely- 2 minutes Standing to Sitting Ability Safely, Minimal Hand Use Transfer Ability Safely, Minimal Hand Use Unsupported Stance- Eyes Closed Safely, 10 seconds Unsupported Stance- Eyes Open Independent, 1 minute Reaching Forward Standing Safely, 5 inches Pick- Up Object From Floor Independent/Safe Look Behind Shoulder - Standing Turns Sideways Only Turning 360 Degrees Turns slowly, but safely Unsupported Stance, Alternating Feet on (I)- 8 Steps in > 20 secs Stair Unsupported Tandem Stance Holds Tandem- 30 seconds Unilateral Leg Stance Lifts Leg/Unable to Hold Total Score Yanez Total Score (out of 56 points) 46 Yanez Impairment Rating 1 to 19% Impaired (Score 45-55 ) PT-OP-E Functional Tests Start: 02/20/19 13:46 Freq: Status: Active Protocol: Document 02/17/20 13:45 DCW (Rec: 02/17/20 14:23 DCW [id number]) Functional Tests 2 Minute Walk Test Distance 242 Device Used SPC Comments 2.02 ft/sec Dynamic Gait Index (DGI) Score 17/24 DGI Impairment Rating 20 to <40% Impaired (Score 15- 19) PT-OP-F Manual Assessment Start: 10/04/17 14:21 Freq: Status: Active Protocol: Document 05/21/19 14:30 DCW (Rec: 05/21/19 15:12 DCW [id number]) Manual Assessments Soft Tissue Assessment Soft Tissue Mobility Assessment Moderate tone in Bilateral thoracic and lumbar paraspinals, piriformis, iliopsoas, and quadratus lumborum. Mild tone in bilateral hamstrings and adductor vinod PT-OP-J Posture/Palpation/Skin Start: 10/04/17 14:21 Freq: Status: Active Protocol: Document 02/17/20 13:45 DCW (Rec: 02/17/20 14:23 DCW [id number]) Posture Evaluation Position Standing Head/C-Spine Posture Forward Head T-Spine Posture Flexible Scoliosis on (L), Increased Kyphosis L-Spine Posture Flexible Scoliosis on (R) Pelvis Posture (L) Iliac Crest Superior Hip Posture (L) Flexed,(R) Flexed Comments Posture Comments Pt's jorge with cues to stand as tall as possible: 5' /c 1 heel heel PT-OP-K Range of Motion Start: 10/04/17 14:21 Freq: Status: Active Protocol: Document 02/17/20 13:45 DCW (Rec: 02/17/20 14:23 DCW [id number]) Lumbar Spine Range of Motion Lumbar Spine Active Degrees Testing Position Standing Comments Max extension, pt is forward flexed 6? at her thoracic spine Shoulder Goniometric Range of Motion Shoulder Left Active Shoulder ROM WFL No Testing Position Sitting Flexion 159 Abduction 158 External Rotation at 0 degrees Abduction 60 Right Active Shoulder ROM WFL No Testing Position Sitting Flexion 146 Abduction 129 External Rotation at 0 degrees Abduction 54 PT-OP-M Strength Start: 10/04/17 14:21 Freq: Status: Active Protocol: Document 12/18/18 13:45 DCW (Rec: 12/18/18 14:23 DCW [id number]) Shoulder Strength Shoulder Manual Muscle Testing Right Flexion 4 Good Abduction (C5) 4+ Good+ External Rotation 4+ Good+ Internal Rotation 5 Normal Left Flexion 4 Good Abduction (C5) 4+ Good+ External Rotation 4+ Good+ Internal Rotation 5 Normal PT-OP-Q Treatments Start: 08/06/17 17:30 Freq: Status: Active Protocol: Document 03/23/20 13:45 DCW (Rec: 03/23/20 14:33 DCW [id number]) Cardio Equipment Upper Body Ergometer (UBE) Duration (Minutes) 5 RPM 60 Seat Position 12 Height 2.5 Therapeutic Exercises Sitting Exercises PROM Abduction Sitting Exercise Name Pullies GH Abduction Side bilateral PROM Flexion Sitting Exercise Name Pullies GH flexion Side bilateral Standing Exercises Rows Standing Exercise Name Rows Side bilateral Resistance Lv 2 Equipment Used T-band Reps/Minutes 2x10 Comments VC for upright posture and slowing down movemnt Shoulder Extension Standing Exercise Name Extension Side bilateral Resistance Lv 2 Equipment Used T-band Reps/Minutes 2x10 Comments VC for upright posture and arm extension Manual Therapy Treatment Soft Tissue Mobilization 4 Body Location Piriformis Mobilization Type Strumming,Sustained Pressure, Trigger Point Release Intensity/Depth Moderate Body Position Sidelying 3 Body Location Quadratus Lumborum Mobilization Type Myofascial Release,Strumming, Sustained Pressure Intensity/Depth Moderate Body Position Sidelying 2 Body Location Glute Med Mobilization Type Strumming,Sustained Pressure Intensity/Depth Moderate Body Position Sidelying 1 Body Location Lumbar Erector Spinae Mobilization Type Myofascial Release,Sustained Pressure Intensity/Depth Moderate Body Position Sidelying Joint Mobilizations 1 Joint Thoracic Spine Direction P->A Grade II Body Position Sidelying Manual Traction Lumbar Details Hip/Iliac crest depression Body Position Sidelying Comments MWM PT-OP-R Modalities Start: 08/06/17 17:30 Freq: Status: Active Protocol: Document 03/23/20 13:45 DCW (Rec: 03/23/20 14:33 DCW [id number]) Electric Stimulation Electric Stimulation Interferential Current (IFC) Body Location Lumbar Spine Duration (Minutes) 15 Patient Position Sitting Combined With Heat/Cold Hot Pack Comments stool under B feet PT-OP-T Assessment and Plan Start: 08/06/17 17:30 Freq: Status: Active Protocol: Document 03/23/20 13:45 DCW (Rec: 03/23/20 14:33 DCW [id number]) Physical Therapy Assessment Impairments Impairments Activity Tolerance,Balance, Functional Activities, Functional Mobility,Gait,Pain, Posture,ROM,Soft Tissue Mobility,Strength,Tone Goals Seven Impairment Pt displays increased falls risk Short Term Goal (STG) Pt to score a 47/56 on the Yanez Balance Scale to demonstrate a decreased falls risk STG Duration 04/01/20 - Improving 46/56 Shelter Goal (LTG) Pt to score a 18/24 on the DGI - MET New Goal: LTG Duration 05/19/20 - Mild decline Six Impairment Difficulty of getting in the car Biologics Specialist Goal (LTG) Patient will get in to the car with proper mechanics without difficulty or low back pain LTG Duration Met Five Impairment Difficulty of lifting laundry from floor to shoulder level Shelter Goal (LTG) Patient will learn good lifting mechanics to prevent further low back pain. LTG Duration Met Four Impairment Palpable muscle tone Biologics Specialist Goal (LTG) Pt muscle tone grossly to mild levels of tone 02/17/2092-Jsz-Muxifr tone LTG Duration 05/19/20 Three Impairment Thoracic Spine ROM Short Term Goal (STG) Thoracic spine to lacking 10 degrees from neutral at full extension STG Duration Met Shelter Goal (LTG) Thoracic spine to neutral at full extension LTG Duration 05/19/20 - Decline to lacking 6 degrees Two Impairment Pain Shelter Goal (LTG) Pt to report decreased pain to a max of 4/10 LTG Duration 05/19/20 One Impairment Activity tolerance Shelter Goal (LTG) Pt to tolerate gardening with no increased pain for three hours 02/17/20 - pt tolerating two hours of gardening with increased pain after 30 minutes LTG Duration 05/19/20 Assessment Summary Assessment Pt feeling better today, does note some increased crepitus in her back with occasional associated discomfort. Physical Therapy Plan Frequency and Duration Frequency of Treatment 1x/Week Duration of Treatment 3 months Plan of Care Start Date 02/17/20 Plan of Care End Date 05/19/20 Therapeutic Interventions Therapeutic Interventions Aquatic Therapy,Home Exercise Program,Joint Mobilizations, Manual Therapy,Neuromuscular Re-education,Self-Care/Home Management,Soft Tissue Mobilization,Therapeutic Exercises Modalities Cold Pack/Ice Massage,Electric Stimulation,Hot Packs Next Visit Focus/Plan Next Note Type Treatment Note Next Visit Plan Next tx STMs to abdominals, psoas to compliment posture. *Continue Balance training, posture training, shoulder/ scapular strengthening, STM
--- NOTE | 2020-03-30 14:31 | PT.OTN ---
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) Pain in thoracic spine (03/30/20) Physical Therapy Treatment Note PT-OP-A Visit Information Start: 08/06/17 17:30 Freq: Status: Active Protocol: Document 03/30/20 13:45 DCW (Rec: 03/30/20 14:31 DCW [id number]) Out-Patient Physical Therapy Visit Information Visit Information Visit Type Treatment Note Visit Start Time 13:45 Visit Stop Time 14:40 Total Visit Minutes 55 Visit Number 117 Number of CUSTOMER ADVOCACY MANAGER Visits 0 PT-OP-B Current Condition Start: 10/04/17 14:21 Freq: Status: Active Protocol: Document 02/20/19 13:45 DCW (Rec: 02/20/19 14:36 DCW [id number]) Current Condition History of Current Condition History of Current Condition Please see patient's chart in Therapy Source for complete history and initial evaluation ADDENDEM 02/20/19: Pt has a new referral to work on balance and gait. Pt notes she doesn't have any recent falls , but that's because I'm good at grabbing things before I go down. Pt has been using a SPC for assistance, and has recently gotten a FWW, although she has yet to use it . Pt admits that she has not been picking my feet up very well. PT-OP-C Subjective Start: 08/06/17 17:30 Freq: Status: Active Protocol: Document 03/30/20 13:45 DCW (Rec: 03/30/20 14:31 DCW [id number]) OP-PT Subjective Patient Comments Patient Comments I'm doing alright today. PT-OP-D Balance Start: 02/20/19 13:46 Freq: Status: Active Protocol: Document 02/17/20 13:45 DCW (Rec: 02/17/20 14:23 DCW [id number]) Balance Tests Yanez Balance Test Yanez Balance Test Score 46/56 Yanez Impairment Rating 1 to 19% Impaired (Score 45-55 ) Yanez Balance Assessment Evaluation Sitting to Standing Ability Independent w/out Hands Unsupported Stance Safely- 2 minutes Sitting Unsupported, Feet on Floor Safely- 2 minutes Standing to Sitting Ability Safely, Minimal Hand Use Transfer Ability Safely, Minimal Hand Use Unsupported Stance- Eyes Closed Safely, 10 seconds Unsupported Stance- Eyes Open Independent, 1 minute Reaching Forward Standing Safely, 5 inches Pick- Up Object From Floor Independent/Safe Look Behind Shoulder - Standing Turns Sideways Only Turning 360 Degrees Turns slowly, but safely Unsupported Stance, Alternating Feet on (I)- 8 Steps in > 20 secs Stair Unsupported Tandem Stance Holds Tandem- 30 seconds Unilateral Leg Stance Lifts Leg/Unable to Hold Total Score Yanez Total Score (out of 56 points) 46 Yanez Impairment Rating 1 to 19% Impaired (Score 45-55 ) PT-OP-E Functional Tests Start: 02/20/19 13:46 Freq: Status: Active Protocol: Document 02/17/20 13:45 DCW (Rec: 02/17/20 14:23 DCW [id number]) Functional Tests 2 Minute Walk Test Distance 242 Device Used SPC Comments 2.02 ft/sec Dynamic Gait Index (DGI) Score 17/24 DGI Impairment Rating 20 to <40% Impaired (Score 15- 19) PT-OP-F Manual Assessment Start: 10/04/17 14:21 Freq: Status: Active Protocol: Document 05/21/19 14:30 DCW (Rec: 05/21/19 15:12 DCW [id number]) Manual Assessments Soft Tissue Assessment Soft Tissue Mobility Assessment Moderate tone in Bilateral thoracic and lumbar paraspinals, piriformis, iliopsoas, and quadratus lumborum. Mild tone in bilateral hamstrings and adductor vinod PT-OP-J Posture/Palpation/Skin Start: 10/04/17 14:21 Freq: Status: Active Protocol: Document 02/17/20 13:45 DCW (Rec: 02/17/20 14:23 DCW [id number]) Posture Evaluation Position Standing Head/C-Spine Posture Forward Head T-Spine Posture Flexible Scoliosis on (L), Increased Kyphosis L-Spine Posture Flexible Scoliosis on (R) Pelvis Posture (L) Iliac Crest Superior Hip Posture (L) Flexed,(R) Flexed Comments Posture Comments Pt's jorge with cues to stand as tall as possible: 5' /c 1 heel heel PT-OP-K Range of Motion Start: 10/04/17 14:21 Freq: Status: Active Protocol: Document 02/17/20 13:45 DCW (Rec: 02/17/20 14:23 DCW [id number]) Lumbar Spine Range of Motion Lumbar Spine Active Degrees Testing Position Standing Comments Max extension, pt is forward flexed 6? at her thoracic spine Shoulder Goniometric Range of Motion Shoulder Left Active Shoulder ROM WFL No Testing Position Sitting Flexion 159 Abduction 158 External Rotation at 0 degrees Abduction 60 Right Active Shoulder ROM WFL No Testing Position Sitting Flexion 146 Abduction 129 External Rotation at 0 degrees Abduction 54 PT-OP-M Strength Start: 10/04/17 14:21 Freq: Status: Active Protocol: Document 12/18/18 13:45 DCW (Rec: 12/18/18 14:23 DCW [id number]) Shoulder Strength Shoulder Manual Muscle Testing Right Flexion 4 Good Abduction (C5) 4+ Good+ External Rotation 4+ Good+ Internal Rotation 5 Normal Left Flexion 4 Good Abduction (C5) 4+ Good+ External Rotation 4+ Good+ Internal Rotation 5 Normal PT-OP-Q Treatments Start: 08/06/17 17:30 Freq: Status: Active Protocol: Document 03/30/20 13:45 DCW (Rec: 03/30/20 14:31 DCW [id number]) Cardio Equipment Upper Body Ergometer (UBE) Duration (Minutes) 5 RPM 60 Seat Position 12 Height 2.5 Therapeutic Exercises Supine Exercises 1 Supine Exercise Name Supine on Towel roll at T10-12 Side bilateral Comments increase thoracolumbar extension Sitting Exercises PROM Abduction Sitting Exercise Name Pullies GH Abduction Side bilateral PROM Flexion Sitting Exercise Name Pullies GH flexion Side bilateral Standing Exercises Rows Standing Exercise Name Rows Side bilateral Resistance Lv 2 Equipment Used T-band Reps/Minutes 2x10 Comments VC for upright posture and slowing down movemnt Shoulder Extension Standing Exercise Name Extension Side bilateral Resistance Lv 2 Equipment Used T-band Reps/Minutes 2x10 Comments VC for upright posture and arm extension Manual Therapy Treatment Soft Tissue Mobilization 4 Body Location Piriformis Mobilization Type Strumming,Sustained Pressure, Trigger Point Release Intensity/Depth Moderate Body Position Sidelying 3 Body Location Quadratus Lumborum Mobilization Type Myofascial Release,Strumming, Sustained Pressure Intensity/Depth Moderate Body Position Sidelying 2 Body Location Glute Med Mobilization Type Strumming,Sustained Pressure Intensity/Depth Moderate Body Position Sidelying 1 Body Location Lumbar Erector Spinae Mobilization Type Myofascial Release,Sustained Pressure Intensity/Depth Moderate Body Position Sidelying Joint Mobilizations 1 Joint Thoracic Spine Direction P->A Grade II Body Position Sidelying Manual Traction Lumbar Details Hip/Iliac crest depression Body Position Sidelying Comments MWM PT-OP-R Modalities Start: 08/06/17 17:30 Freq: Status: Active Protocol: Document 03/30/20 13:45 DCW (Rec: 03/30/20 14:31 DCW [id number]) Electric Stimulation Electric Stimulation Interferential Current (IFC) Body Location Lumbar Spine Duration (Minutes) 15 Patient Position Sitting Combined With Heat/Cold Hot Pack Comments stool under B feet PT-OP-T Assessment and Plan Start: 08/06/17 17:30 Freq: Status: Active Protocol: Document 03/30/20 13:45 DCW (Rec: 03/30/20 14:31 DCW [id number]) Physical Therapy Assessment Impairments Impairments Activity Tolerance,Balance, Functional Activities, Functional Mobility,Gait,Pain, Posture,ROM,Soft Tissue Mobility,Strength,Tone Goals Seven Impairment Pt displays increased falls risk Short Term Goal (STG) Pt to score a 47/56 on the Yanez Balance Scale to demonstrate a decreased falls risk STG Duration 04/01/20 - Improving 46/56 Entry Level Electrical Engineer Goal (LTG) Pt to score a 18/24 on the DGI - MET New Goal: LTG Duration 05/19/20 - Mild decline Six Impairment Difficulty of getting in the car [facility] Goal (LTG) Patient will get in to the car with proper mechanics without difficulty or low back pain LTG Duration Met Five Impairment Difficulty of lifting laundry from floor to shoulder level [facility] Goal (LTG) Patient will learn good lifting mechanics to prevent further low back pain. LTG Duration Met Four Impairment Palpable muscle tone Entry Level Electrical Engineer Goal (LTG) Pt muscle tone grossly to mild levels of tone 02/17/2097-Dvb-Htcvsw tone LTG Duration 05/19/20 Three Impairment Thoracic Spine ROM Short Term Goal (STG) Thoracic spine to lacking 10 degrees from neutral at full extension STG Duration Met Entry Level Electrical Engineer Goal (LTG) Thoracic spine to neutral at full extension LTG Duration 05/19/20 - Decline to lacking 6 degrees Two Impairment Pain [facility] Goal (LTG) Pt to report decreased pain to a max of 4/10 LTG Duration 05/19/20 One Impairment Activity tolerance Entry Level Electrical Engineer Goal (LTG) Pt to tolerate gardening with no increased pain for three hours 02/17/20 - pt tolerating two hours of gardening with increased pain after 30 minutes LTG Duration 05/19/20 Assessment Summary Assessment Pt doing well today, not having as much pain today, is having some difficulty with spinal mobility. Physical Therapy Plan Frequency and Duration Frequency of Treatment 1x/Week Duration of Treatment 3 months Plan of Care Start Date 02/17/20 Plan of Care End Date 05/19/20 Therapeutic Interventions Therapeutic Interventions Aquatic Therapy,Home Exercise Program,Joint Mobilizations, Manual Therapy,Neuromuscular Re-education,Self-Care/Home Management,Soft Tissue Mobilization,Therapeutic Exercises Modalities Cold Pack/Ice Massage,Electric Stimulation,Hot Packs Next Visit Focus/Plan Next Note Type Treatment Note Next Visit Plan Next tx STMs to abdominals, psoas to compliment posture. *Continue Balance training, posture training, shoulder/ scapular strengthening, STM
--- NOTE | 2020-04-13 14:45 | PT.OTN ---
Current Diagnoses Scoliosis, unspecified (04/13/20) Spondylosis without myelopathy or radiculopathy, cervical region (04/13/20) Pain in thoracic spine (04/13/20) Physical Therapy Treatment Note PT-OP-A Visit Information Start: 08/06/17 17:30 Freq: Status: Active Protocol: Document 04/13/20 13:55 SP (Rec: 04/13/20 16:01 SP [id number]) Out-Patient Physical Therapy Visit Information Visit Information Visit Type Treatment Note Visit Start Time 13:55 Visit Stop Time 14:45 Total Visit Minutes 50 Visit Number 118 Number of ELECTRONICS TECH Visits 1 PT-OP-B Current Condition Start: 10/04/17 14:21 Freq: Status: Active Protocol: Document 02/20/19 13:45 DCW (Rec: 02/20/19 14:36 DCW [id number]) Current Condition History of Current Condition History of Current Condition Please see patient's chart in Therapy Source for complete history and initial evaluation ADDENDEM 02/20/19: Pt has a new referral to work on balance and gait. Pt notes she doesn't have any recent falls , but that's because I'm good at grabbing things before I go down. Pt has been using a SPC for assistance, and has recently gotten a FWW, although she has yet to use it . Pt admits that she has not been picking my feet up very well. PT-OP-C Subjective Start: 08/06/17 17:30 Freq: Status: Active Protocol: Document 04/13/20 13:55 SP (Rec: 04/13/20 16:01 SP [id number]) OP-PT Subjective Patient Comments Patient Comments Pt report her B ribs are hurting today and feel like stuck down near pelvis. Pt has intestinal issues last week and why missed. PT-OP-D Balance Start: 02/20/19 13:46 Freq: Status: Active Protocol: Document 02/17/20 13:45 DCW (Rec: 02/17/20 14:23 DCW [id number]) Balance Tests Yanez Balance Test Yanez Balance Test Score 46/56 Yanez Impairment Rating 1 to 19% Impaired (Score 45-55 ) Yanez Balance Assessment Evaluation Sitting to Standing Ability Independent w/out Hands Unsupported Stance Safely- 2 minutes Sitting Unsupported, Feet on Floor Safely- 2 minutes Standing to Sitting Ability Safely, Minimal Hand Use Transfer Ability Safely, Minimal Hand Use Unsupported Stance- Eyes Closed Safely, 10 seconds Unsupported Stance- Eyes Open Independent, 1 minute Reaching Forward Standing Safely, 5 inches Pick- Up Object From Floor Independent/Safe Look Behind Shoulder - Standing Turns Sideways Only Turning 360 Degrees Turns slowly, but safely Unsupported Stance, Alternating Feet on (I)- 8 Steps in > 20 secs Stair Unsupported Tandem Stance Holds Tandem- 30 seconds Unilateral Leg Stance Lifts Leg/Unable to Hold Total Score Yanez Total Score (out of 56 points) 46 Yanez Impairment Rating 1 to 19% Impaired (Score 45-55 ) PT-OP-E Functional Tests Start: 02/20/19 13:46 Freq: Status: Active Protocol: Document 02/17/20 13:45 DCW (Rec: 02/17/20 14:23 DCW [id number]) Functional Tests 2 Minute Walk Test Distance 242 Device Used SPC Comments 2.02 ft/sec Dynamic Gait Index (DGI) Score 17/24 DGI Impairment Rating 20 to <40% Impaired (Score 15- 19) PT-OP-F Manual Assessment Start: 10/04/17 14:21 Freq: Status: Active Protocol: Document 05/21/19 14:30 DCW (Rec: 05/21/19 15:12 DCW [id number]) Manual Assessments Soft Tissue Assessment Soft Tissue Mobility Assessment Moderate tone in Bilateral thoracic and lumbar paraspinals, piriformis, iliopsoas, and quadratus lumborum. Mild tone in bilateral hamstrings and adductor vinod PT-OP-J Posture/Palpation/Skin Start: 10/04/17 14:21 Freq: Status: Active Protocol: Document 02/17/20 13:45 DCW (Rec: 02/17/20 14:23 DCW [id number]) Posture Evaluation Position Standing Head/C-Spine Posture Forward Head T-Spine Posture Flexible Scoliosis on (L), Increased Kyphosis L-Spine Posture Flexible Scoliosis on (R) Pelvis Posture (L) Iliac Crest Superior Hip Posture (L) Flexed,(R) Flexed Comments Posture Comments Pt's jorge with cues to stand as tall as possible: 5' /c 1 heel heel PT-OP-K Range of Motion Start: 10/04/17 14:21 Freq: Status: Active Protocol: Document 02/17/20 13:45 DCW (Rec: 02/17/20 14:23 DCW [id number]) Lumbar Spine Range of Motion Lumbar Spine Active Degrees Testing Position Standing Comments Max extension, pt is forward flexed 6? at her thoracic spine Shoulder Goniometric Range of Motion Shoulder Left Active Shoulder ROM WFL No Testing Position Sitting Flexion 159 Abduction 158 External Rotation at 0 degrees Abduction 60 Right Active Shoulder ROM WFL No Testing Position Sitting Flexion 146 Abduction 129 External Rotation at 0 degrees Abduction 54 PT-OP-M Strength Start: 10/04/17 14:21 Freq: Status: Active Protocol: Document 12/18/18 13:45 DCW (Rec: 12/18/18 14:23 DCW [id number]) Shoulder Strength Shoulder Manual Muscle Testing Right Flexion 4 Good Abduction (C5) 4+ Good+ External Rotation 4+ Good+ Internal Rotation 5 Normal Left Flexion 4 Good Abduction (C5) 4+ Good+ External Rotation 4+ Good+ Internal Rotation 5 Normal PT-OP-Q Treatments Start: 08/06/17 17:30 Freq: Status: Active Protocol: Document 04/13/20 13:55 SP (Rec: 04/13/20 16:01 SP [id number]) Cardio Equipment Upper Body Ergometer (UBE) Duration (Minutes) 5 RPM 60 Seat Position 12 Height 2.5 Other 282 total cycles Therapeutic Exercises Supine Exercises 1 Supine Exercise Name Supine on Towel roll at T10-12 w/ scap retraction Side bilateral Equipment Used 3 pillows under neck/ shlds Reps/Minutes 5 sec hold x8 Comments increase thoracolumbar extension Sitting Exercises PROM Abduction Sitting Exercise Name Pullies GH Abduction Side bilateral Reps/Minutes x10 PROM Flexion Sitting Exercise Name Pullies GH flexion Side bilateral Reps/Minutes x10 Manual Therapy Treatment Soft Tissue Mobilization abdominal Body Location int/ ext obliques, intercostals Mobilization Type Myofascial Release Intensity/Depth Moderate Body Position Hooklying Comments B 4 Body Location Piriformis Mobilization Type Strumming,Sustained Pressure, Trigger Point Release Intensity/Depth Moderate Body Position Sidelying Comments B 3 Body Location Quadratus Lumborum Mobilization Type Myofascial Release,Strumming, Sustained Pressure Intensity/Depth Moderate Body Position Sidelying Comments B 2 Body Location Glute Med Mobilization Type Strumming,Sustained Pressure Intensity/Depth Moderate Body Position Sidelying Comments B 1 Body Location Lumbar Erector Spinae Mobilization Type Myofascial Release,Sustained Pressure Intensity/Depth Moderate Body Position Sidelying Comments B Joint Mobilizations 1 Joint Thoracic Spine Direction P->A Grade II Body Position Sidelying PT-OP-R Modalities Start: 08/06/17 17:30 Freq: Status: Active Protocol: Document 04/13/20 13:55 SP (Rec: 04/13/20 16:01 SP [id number]) Electric Stimulation Electric Stimulation Interferential Current (IFC) Body Location Lumbar Spine Duration (Minutes) 15 Intensity 23 Contraction Type Normal Target/Sweep Target High/Low High Patient Position Sitting Combined With Heat/Cold Hot Pack Comments stool under B feet PT-OP-T Assessment and Plan Start: 08/06/17 17:30 Freq: Status: Active Protocol: Document 04/13/20 13:55 SP (Rec: 04/13/20 16:01 SP [id number]) Physical Therapy Assessment Goals Seven Impairment Pt displays increased falls risk Short Term Goal (STG) Pt to score a 47/56 on the Yanez Balance Scale to demonstrate a decreased falls risk STG Duration 04/01/20 - Improving 46/56 Seed Trucker Goal (LTG) Pt to score a 18/24 on the DGI - MET New Goal: LTG Duration 05/19/20 - Mild decline Six Impairment Difficulty of getting in the car Skilled Nursing Goal (LTG) Patient will get in to the car with proper mechanics without difficulty or low back pain LTG Duration Met Five Impairment Difficulty of lifting laundry from floor to shoulder level Seed Trucker Goal (LTG) Patient will learn good lifting mechanics to prevent further low back pain. LTG Duration Met Four Impairment Palpable muscle tone Skilled Nursing Goal (LTG) Pt muscle tone grossly to mild levels of tone 02/17/2022-Kza-Zjonhz tone LTG Duration 05/19/20 Three Impairment Thoracic Spine ROM Short Term Goal (STG) Thoracic spine to lacking 10 degrees from neutral at full extension STG Duration Met Seed Trucker Goal (LTG) Thoracic spine to neutral at full extension LTG Duration 05/19/20 - Decline to lacking 6 degrees Two Impairment Pain Seed Trucker Goal (LTG) Pt to report decreased pain to a max of 4/10 LTG Duration 05/19/20 One Impairment Activity tolerance Skilled Nursing Goal (LTG) Pt to tolerate gardening with no increased pain for three hours 02/17/20 - pt tolerating two hours of gardening with increased pain after 30 minutes LTG Duration 05/19/20 Assessment Summary Assessment Pt had increased pain in posterolateral LS closer to ribcage when arrived with increased rounded/ kyphotic posture. Improved pain from 8/ 10 to 6/10 post ther ex and manual and no change post ES w / MHP and walking around, improved standing posture gait leaving. I feel little more loosened up and less pain than when came in. Physical Therapy Plan Frequency and Duration Frequency of Treatment 1x/Week Duration of Treatment 3 months Plan of Care Start Date 02/17/20 Plan of Care End Date 05/19/20 Therapeutic Interventions Therapeutic Interventions Aquatic Therapy,Home Exercise Program,Joint Mobilizations, Manual Therapy,Neuromuscular Re-education,Self-Care/Home Management,Soft Tissue Mobilization,Therapeutic Exercises Modalities Cold Pack/Ice Massage,Electric Stimulation,Hot Packs Next Visit Focus/Plan Next Note Type Treatment Note Next Visit Plan Assess intiated abdominal STMs , next tx possible psoas to compliment posture. *Continue Per PT POC: Balance training, posture training, shoulder/scapular strengthening, STM
--- NOTE | 2020-04-21 16:03 | PT.OTN ---
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) Pain in thoracic spine (04/21/20) Physical Therapy Treatment Note PT-OP-A Visit Information Start: 08/06/17 17:30 Freq: Status: Active Protocol: Document 04/21/20 15:15 DCW (Rec: 04/21/20 16:02 DCW [id number]) Out-Patient Physical Therapy Visit Information Visit Information Visit Type Treatment Note Visit Start Time 15:15 Visit Stop Time 16:10 Total Visit Minutes 55 Visit Number 119 Number of ASSISTANT SUPERINTENDENT FOR CURRICULUM Visits 0 Evaluation Information Evaluation Date 05/28/17 PT-OP-B Current Condition Start: 10/04/17 14:21 Freq: Status: Active Protocol: Document 02/20/19 13:45 DCW (Rec: 02/20/19 14:36 DCW [id number]) Current Condition History of Current Condition History of Current Condition Please see patient's chart in Therapy Source for complete history and initial evaluation ADDENDEM 02/20/19: Pt has a new referral to work on balance and gait. Pt notes she doesn't have any recent falls , but that's because I'm good at grabbing things before I go down. Pt has been using a SPC for assistance, and has recently gotten a FWW, although she has yet to use it . Pt admits that she has not been picking my feet up very well. PT-OP-C Subjective Start: 08/06/17 17:30 Freq: Status: Active Protocol: Document 04/21/20 15:15 DCW (Rec: 04/21/20 16:02 DCW [id number]) OP-PT Subjective Patient Comments Patient Comments Pt notes her arm has been bothering her today, it's not the joint, it's in the muscle . PT is unsure of the cause. PT-OP-D Balance Start: 02/20/19 13:46 Freq: Status: Active Protocol: Document 02/17/20 13:45 DCW (Rec: 02/17/20 14:23 DCW [id number]) Balance Tests Yanez Balance Test Yanez Balance Test Score 46/56 Yanez Impairment Rating 1 to 19% Impaired (Score 45-55 ) Yanez Balance Assessment Evaluation Sitting to Standing Ability Independent w/out Hands Unsupported Stance Safely- 2 minutes Sitting Unsupported, Feet on Floor Safely- 2 minutes Standing to Sitting Ability Safely, Minimal Hand Use Transfer Ability Safely, Minimal Hand Use Unsupported Stance- Eyes Closed Safely, 10 seconds Unsupported Stance- Eyes Open Independent, 1 minute Reaching Forward Standing Safely, 5 inches Pick- Up Object From Floor Independent/Safe Look Behind Shoulder - Standing Turns Sideways Only Turning 360 Degrees Turns slowly, but safely Unsupported Stance, Alternating Feet on (I)- 8 Steps in > 20 secs Stair Unsupported Tandem Stance Holds Tandem- 30 seconds Unilateral Leg Stance Lifts Leg/Unable to Hold Total Score Yanez Total Score (out of 56 points) 46 Yanez Impairment Rating 1 to 19% Impaired (Score 45-55 ) PT-OP-E Functional Tests Start: 02/20/19 13:46 Freq: Status: Active Protocol: Document 02/17/20 13:45 DCW (Rec: 02/17/20 14:23 DCW [id number]) Functional Tests 2 Minute Walk Test Distance 242 Device Used SPC Comments 2.02 ft/sec Dynamic Gait Index (DGI) Score 17/24 DGI Impairment Rating 20 to <40% Impaired (Score 15- 19) PT-OP-F Manual Assessment Start: 10/04/17 14:21 Freq: Status: Active Protocol: Document 05/21/19 14:30 DCW (Rec: 05/21/19 15:12 DCW [id number]) Manual Assessments Soft Tissue Assessment Soft Tissue Mobility Assessment Moderate tone in Bilateral thoracic and lumbar paraspinals, piriformis, iliopsoas, and quadratus lumborum. Mild tone in bilateral hamstrings and adductor vinod PT-OP-J Posture/Palpation/Skin Start: 10/04/17 14:21 Freq: Status: Active Protocol: Document 02/17/20 13:45 DCW (Rec: 02/17/20 14:23 DCW [id number]) Posture Evaluation Position Standing Head/C-Spine Posture Forward Head T-Spine Posture Flexible Scoliosis on (L), Increased Kyphosis L-Spine Posture Flexible Scoliosis on (R) Pelvis Posture (L) Iliac Crest Superior Hip Posture (L) Flexed,(R) Flexed Comments Posture Comments Pt's jorge with cues to stand as tall as possible: 5' /c 1 heel heel PT-OP-K Range of Motion Start: 10/04/17 14:21 Freq: Status: Active Protocol: Document 02/17/20 13:45 DCW (Rec: 02/17/20 14:23 DCW [id number]) Lumbar Spine Range of Motion Lumbar Spine Active Degrees Testing Position Standing Comments Max extension, pt is forward flexed 6? at her thoracic spine Shoulder Goniometric Range of Motion Shoulder Left Active Shoulder ROM WFL No Testing Position Sitting Flexion 159 Abduction 158 External Rotation at 0 degrees Abduction 60 Right Active Shoulder ROM WFL No Testing Position Sitting Flexion 146 Abduction 129 External Rotation at 0 degrees Abduction 54 PT-OP-M Strength Start: 10/04/17 14:21 Freq: Status: Active Protocol: Document 12/18/18 13:45 DCW (Rec: 12/18/18 14:23 DCW [id number]) Shoulder Strength Shoulder Manual Muscle Testing Right Flexion 4 Good Abduction (C5) 4+ Good+ External Rotation 4+ Good+ Internal Rotation 5 Normal Left Flexion 4 Good Abduction (C5) 4+ Good+ External Rotation 4+ Good+ Internal Rotation 5 Normal PT-OP-Q Treatments Start: 08/06/17 17:30 Freq: Status: Active Protocol: Document 04/21/20 15:15 DCW (Rec: 04/21/20 16:02 DCW [id number]) Cardio Equipment Upper Body Ergometer (UBE) Duration (Minutes) 5 RPM 60 Seat Position 12 Height 2.5 Therapeutic Exercises Supine Exercises 1 Supine Exercise Name Supine on Towel roll at T10-12 Side bilateral Comments increase thoracolumbar extension Sitting Exercises PROM Abduction Sitting Exercise Name Pullies GH Abduction Side bilateral Reps/Minutes x10 PROM Flexion Sitting Exercise Name Pullies GH flexion Side bilateral Reps/Minutes x10 Standing Exercises Rows Standing Exercise Name Rows Side bilateral Resistance Lv 2 Equipment Used T-band Reps/Minutes 2x10 Comments VC for upright posture and slowing down movemnt Shoulder Extension Standing Exercise Name Extension Side bilateral Resistance Lv 2 Equipment Used T-band Reps/Minutes 2x10 Comments VC for upright posture and arm extension Manual Therapy Treatment Soft Tissue Mobilization 4 Body Location Piriformis Mobilization Type Strumming,Sustained Pressure, Trigger Point Release Intensity/Depth Moderate Body Position Sidelying 3 Body Location Quadratus Lumborum Mobilization Type Myofascial Release,Strumming, Sustained Pressure Intensity/Depth Moderate Body Position Sidelying 2 Body Location Glute Med Mobilization Type Strumming,Sustained Pressure Intensity/Depth Moderate Body Position Sidelying 1 Body Location Lumbar Erector Spinae Mobilization Type Myofascial Release,Sustained Pressure Intensity/Depth Moderate Body Position Sidelying Joint Mobilizations 1 Joint Thoracic Spine Direction P->A Grade II Body Position Sidelying Manual Traction Lumbar Details Hip/Iliac crest depression Body Position Sidelying Comments MWM PT-OP-R Modalities Start: 08/06/17 17:30 Freq: Status: Active Protocol: Document 04/21/20 15:15 DCW (Rec: 04/21/20 16:02 DCW [id number]) Electric Stimulation Electric Stimulation Interferential Current (IFC) Body Location Lumbar Spine Duration (Minutes) 15 Patient Position Sitting Combined With Heat/Cold Hot Pack Comments stool under B feet PT-OP-T Assessment and Plan Start: 08/06/17 17:30 Freq: Status: Active Protocol: Document 04/21/20 15:15 DCW (Rec: 04/21/20 16:02 DCW [id number]) Physical Therapy Assessment Impairments Impairments Activity Tolerance,Balance, Functional Activities, Functional Mobility,Gait,Pain, Posture,ROM,Soft Tissue Mobility,Strength,Tone Goals Seven Impairment Pt displays increased falls risk Short Term Goal (STG) Pt to score a 47/56 on the Yanez Balance Scale to demonstrate a decreased falls risk STG Duration 04/01/20 - Improving 46/56 Sales Operations Analyst Goal (LTG) Pt to score a 18/24 on the DGI - MET New Goal: LTG Duration 05/19/20 - Mild decline Six Impairment Difficulty of getting in the car Sales Operations Analyst Goal (LTG) Patient will get in to the car with proper mechanics without difficulty or low back pain LTG Duration Met Five Impairment Difficulty of lifting laundry from floor to shoulder level Sales Operations Analyst Goal (LTG) Patient will learn good lifting mechanics to prevent further low back pain. LTG Duration Met Four Impairment Palpable muscle tone Sales Operations Analyst Goal (LTG) Pt muscle tone grossly to mild levels of tone 02/17/2085-Kie-Wgprce tone LTG Duration 05/19/20 Three Impairment Thoracic Spine ROM Short Term Goal (STG) Thoracic spine to lacking 10 degrees from neutral at full extension STG Duration Met Sales Operations Analyst Goal (LTG) Thoracic spine to neutral at full extension LTG Duration 05/19/20 - Decline to lacking 6 degrees Two Impairment Pain Sales Operations Analyst Goal (LTG) Pt to report decreased pain to a max of 4/10 LTG Duration 05/19/20 One Impairment Activity tolerance Sales Operations Analyst Goal (LTG) Pt to tolerate gardening with no increased pain for three hours 02/17/20 - pt tolerating two hours of gardening with increased pain after 30 minutes LTG Duration 05/19/20 Assessment Summary Assessment Pt having significant increase in kyphosis and scoliosis today, unclear of the sudden cause. Recommended to pt to return to PCP to discuss options if she doesn't see improvement over next few days . Physical Therapy Plan Frequency and Duration Frequency of Treatment 1x/Week Duration of Treatment 3 months Plan of Care Start Date 02/17/20 Plan of Care End Date 05/19/20 Therapeutic Interventions Therapeutic Interventions Aquatic Therapy,Home Exercise Program,Joint Mobilizations, Manual Therapy,Neuromuscular Re-education,Self-Care/Home Management,Soft Tissue Mobilization,Therapeutic Exercises Modalities Cold Pack/Ice Massage,Electric Stimulation,Hot Packs Next Visit Focus/Plan Next Note Type Treatment Note Next Visit Plan Assess intiated abdominal STMs , next tx possible psoas to compliment posture. *Continue Per PT POC: Balance training, posture training, shoulder/scapular strengthening, STM
--- NOTE | 2020-04-28 16:00 | PT.OTN ---
Current Diagnoses Scoliosis, unspecified (04/28/20) Spondylosis without myelopathy or radiculopathy, cervical region (04/28/20) Pain in thoracic spine (04/28/20) Physical Therapy Treatment Note PT-OP-A Visit Information Start: 08/06/17 17:30 Freq: Status: Active Protocol: Document 04/28/20 15:15 DCW (Rec: 04/28/20 16:00 DCW [id number]) Out-Patient Physical Therapy Visit Information Visit Information Visit Type Treatment Note Visit Start Time 15:15 Visit Stop Time 16:10 Total Visit Minutes 55 Visit Number 120 Number of WOOD SHINGLE ROOFER Visits 0 Evaluation Information Evaluation Date 05/28/17 PT-OP-B Current Condition Start: 10/04/17 14:21 Freq: Status: Active Protocol: Document 02/20/19 13:45 DCW (Rec: 02/20/19 14:36 DCW [id number]) Current Condition History of Current Condition History of Current Condition Please see patient's chart in Therapy Source for complete history and initial evaluation ADDENDEM 02/20/19: Pt has a new referral to work on balance and gait. Pt notes she doesn't have any recent falls , but that's because I'm good at grabbing things before I go down. Pt has been using a SPC for assistance, and has recently gotten a FWW, although she has yet to use it . Pt admits that she has not been picking my feet up very well. PT-OP-C Subjective Start: 08/06/17 17:30 Freq: Status: Active Protocol: Document 04/28/20 15:15 DCW (Rec: 04/28/20 16:00 DCW [id number]) OP-PT Subjective Patient Comments Patient Comments Pt reports continuing pain in her arm, not any worse, its just kind of there. PT-OP-D Balance Start: 02/20/19 13:46 Freq: Status: Active Protocol: Document 02/17/20 13:45 DCW (Rec: 02/17/20 14:23 DCW [id number]) Balance Tests Yanez Balance Test Yanez Balance Test Score 46/56 Yanez Impairment Rating 1 to 19% Impaired (Score 45-55 ) Yanez Balance Assessment Evaluation Sitting to Standing Ability Independent w/out Hands Unsupported Stance Safely- 2 minutes Sitting Unsupported, Feet on Floor Safely- 2 minutes Standing to Sitting Ability Safely, Minimal Hand Use Transfer Ability Safely, Minimal Hand Use Unsupported Stance- Eyes Closed Safely, 10 seconds Unsupported Stance- Eyes Open Independent, 1 minute Reaching Forward Standing Safely, 5 inches Pick- Up Object From Floor Independent/Safe Look Behind Shoulder - Standing Turns Sideways Only Turning 360 Degrees Turns slowly, but safely Unsupported Stance, Alternating Feet on (I)- 8 Steps in > 20 secs Stair Unsupported Tandem Stance Holds Tandem- 30 seconds Unilateral Leg Stance Lifts Leg/Unable to Hold Total Score Yanez Total Score (out of 56 points) 46 Yanez Impairment Rating 1 to 19% Impaired (Score 45-55 ) PT-OP-E Functional Tests Start: 02/20/19 13:46 Freq: Status: Active Protocol: Document 02/17/20 13:45 DCW (Rec: 02/17/20 14:23 DCW [id number]) Functional Tests 2 Minute Walk Test Distance 242 Device Used SPC Comments 2.02 ft/sec Dynamic Gait Index (DGI) Score 17/24 DGI Impairment Rating 20 to <40% Impaired (Score 15- 19) PT-OP-F Manual Assessment Start: 10/04/17 14:21 Freq: Status: Active Protocol: Document 05/21/19 14:30 DCW (Rec: 05/21/19 15:12 DCW [id number]) Manual Assessments Soft Tissue Assessment Soft Tissue Mobility Assessment Moderate tone in Bilateral thoracic and lumbar paraspinals, piriformis, iliopsoas, and quadratus lumborum. Mild tone in bilateral hamstrings and adductor vinod PT-OP-J Posture/Palpation/Skin Start: 10/04/17 14:21 Freq: Status: Active Protocol: Document 02/17/20 13:45 DCW (Rec: 02/17/20 14:23 DCW [id number]) Posture Evaluation Position Standing Head/C-Spine Posture Forward Head T-Spine Posture Flexible Scoliosis on (L), Increased Kyphosis L-Spine Posture Flexible Scoliosis on (R) Pelvis Posture (L) Iliac Crest Superior Hip Posture (L) Flexed,(R) Flexed Comments Posture Comments Pt's jorge with cues to stand as tall as possible: 5' /c 1 heel heel PT-OP-K Range of Motion Start: 10/04/17 14:21 Freq: Status: Active Protocol: Document 02/17/20 13:45 DCW (Rec: 02/17/20 14:23 DCW [id number]) Lumbar Spine Range of Motion Lumbar Spine Active Degrees Testing Position Standing Comments Max extension, pt is forward flexed 6? at her thoracic spine Shoulder Goniometric Range of Motion Shoulder Left Active Shoulder ROM WFL No Testing Position Sitting Flexion 159 Abduction 158 External Rotation at 0 degrees Abduction 60 Right Active Shoulder ROM WFL No Testing Position Sitting Flexion 146 Abduction 129 External Rotation at 0 degrees Abduction 54 PT-OP-M Strength Start: 10/04/17 14:21 Freq: Status: Active Protocol: Document 12/18/18 13:45 DCW (Rec: 12/18/18 14:23 DCW [id number]) Shoulder Strength Shoulder Manual Muscle Testing Right Flexion 4 Good Abduction (C5) 4+ Good+ External Rotation 4+ Good+ Internal Rotation 5 Normal Left Flexion 4 Good Abduction (C5) 4+ Good+ External Rotation 4+ Good+ Internal Rotation 5 Normal PT-OP-Q Treatments Start: 08/06/17 17:30 Freq: Status: Active Protocol: Document 04/28/20 15:15 DCW (Rec: 04/28/20 16:00 DCW [id number]) Therapeutic Exercises Sitting Exercises PROM Abduction Sitting Exercise Name Pullies GH Abduction Side bilateral Reps/Minutes x10 PROM Flexion Sitting Exercise Name Pullies GH flexion Side bilateral Reps/Minutes x10 Standing Exercises Rows Standing Exercise Name Rows Side bilateral Resistance Lv 2 Equipment Used T-band Reps/Minutes 2x10 Comments VC for upright posture and slowing down movemnt Shoulder Extension Standing Exercise Name Extension Side bilateral Resistance Lv 2 Equipment Used T-band Reps/Minutes 2x10 Comments VC for upright posture and arm extension Manual Therapy Treatment Soft Tissue Mobilization 4 Body Location Piriformis Mobilization Type Strumming,Sustained Pressure, Trigger Point Release Intensity/Depth Moderate Body Position Sidelying 3 Body Location Quadratus Lumborum Mobilization Type Myofascial Release,Strumming, Sustained Pressure Intensity/Depth Moderate Body Position Sidelying 2 Body Location Glute Med Mobilization Type Strumming,Sustained Pressure Intensity/Depth Moderate Body Position Sidelying 1 Body Location Lumbar Erector Spinae Mobilization Type Myofascial Release,Sustained Pressure Intensity/Depth Moderate Body Position Sidelying Joint Mobilizations 1 Joint Thoracic Spine Direction P->A Grade II Body Position Sidelying Manual Traction Lumbar Details Hip/Iliac crest depression Body Position Sidelying Comments MWM PT-OP-R Modalities Start: 08/06/17 17:30 Freq: Status: Active Protocol: Document 04/28/20 15:15 DCW (Rec: 04/28/20 16:00 DCW [id number]) Electric Stimulation Electric Stimulation Interferential Current (IFC) Body Location Lumbar Spine Duration (Minutes) 15 Patient Position Sitting Combined With Heat/Cold Hot Pack Comments stool under B feet PT-OP-T Assessment and Plan Start: 08/06/17 17:30 Freq: Status: Active Protocol: Document 04/28/20 15:15 DCW (Rec: 04/28/20 16:00 DCW [id number]) Physical Therapy Assessment Impairments Impairments Activity Tolerance,Balance, Functional Activities, Functional Mobility,Gait,Pain, Posture,ROM,Soft Tissue Mobility,Strength,Tone Goals Seven Impairment Pt displays increased falls risk Short Term Goal (STG) Pt to score a 47/56 on the Yanez Balance Scale to demonstrate a decreased falls risk STG Duration 04/01/20 - Improving 46/56 Admissions Counselor Goal (LTG) Pt to score a 18/24 on the DGI - MET New Goal: LTG Duration 05/19/20 - Mild decline Six Impairment Difficulty of getting in the car Admissions Counselor Goal (LTG) Patient will get in to the car with proper mechanics without difficulty or low back pain LTG Duration Met Five Impairment Difficulty of lifting laundry from floor to shoulder level Admissions Counselor Goal (LTG) Patient will learn good lifting mechanics to prevent further low back pain. LTG Duration Met Four Impairment Palpable muscle tone Intermediate Goal (LTG) Pt muscle tone grossly to mild levels of tone 02/17/2097-Oeq-Bmqcbq tone LTG Duration 05/19/20 Three Impairment Thoracic Spine ROM Short Term Goal (STG) Thoracic spine to lacking 10 degrees from neutral at full extension STG Duration Met Admissions Counselor Goal (LTG) Thoracic spine to neutral at full extension LTG Duration 05/19/20 - Decline to lacking 6 degrees Two Impairment Pain Intermediate Goal (LTG) Pt to report decreased pain to a max of 4/10 LTG Duration 05/19/20 One Impairment Activity tolerance Admissions Counselor Goal (LTG) Pt to tolerate gardening with no increased pain for three hours 02/17/20 - pt tolerating two hours of gardening with increased pain after 30 minutes LTG Duration 05/19/20 Assessment Summary Assessment Pt seeing her PCP tomorrow, therapist recommended pointing out her recent worsening spinal curvature. Pt tolerated treatment fairly well today overall, less paraspinal tone than what she has recently been presenting with. Physical Therapy Plan Frequency and Duration Frequency of Treatment 1x/Week Duration of Treatment 3 months Plan of Care Start Date 02/17/20 Plan of Care End Date 05/19/20 Therapeutic Interventions Therapeutic Interventions Aquatic Therapy,Home Exercise Program,Joint Mobilizations, Manual Therapy,Neuromuscular Re-education,Self-Care/Home Management,Soft Tissue Mobilization,Therapeutic Exercises Modalities Cold Pack/Ice Massage,Electric Stimulation,Hot Packs Next Visit Focus/Plan Next Note Type Treatment Note Next Visit Plan Assess intiated abdominal STMs , next tx possible psoas to compliment posture. *Continue Per PT POC: Balance training, posture training, shoulder/scapular strengthening, STM
--- NOTE | 2020-05-05 15:57 | PT.OTN ---
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) Pain in thoracic spine (05/05/20) Physical Therapy Treatment Note PT-OP-A Visit Information Start: 08/06/17 17:30 Freq: Status: Active Protocol: Document 05/05/20 15:15 DCW (Rec: 05/05/20 15:57 DCW [id number]) Out-Patient Physical Therapy Visit Information Visit Information Visit Type Treatment Note Visit Start Time 15:15 Visit Stop Time 16:10 Total Visit Minutes 55 Visit Number 121 Number of HANDY MAN Visits 0 Evaluation Information Evaluation Date 05/28/17 PT-OP-B Current Condition Start: 10/04/17 14:21 Freq: Status: Active Protocol: Document 02/20/19 13:45 DCW (Rec: 02/20/19 14:36 DCW [id number]) Current Condition History of Current Condition History of Current Condition Please see patient's chart in Therapy Source for complete history and initial evaluation ADDENDEM 02/20/19: Pt has a new referral to work on balance and gait. Pt notes she doesn't have any recent falls , but that's because I'm good at grabbing things before I go down. Pt has been using a SPC for assistance, and has recently gotten a FWW, although she has yet to use it . Pt admits that she has not been picking my feet up very well. PT-OP-C Subjective Start: 08/06/17 17:30 Freq: Status: Active Protocol: Document 05/05/20 15:15 DCW (Rec: 05/05/20 15:57 DCW [id number]) OP-PT Subjective Patient Comments Patient Comments Pt reports she underwent a Dexa scan earlier today, and she is very sore due to lying on the firm table. PT-OP-D Balance Start: 02/20/19 13:46 Freq: Status: Active Protocol: Document 02/17/20 13:45 DCW (Rec: 02/17/20 14:23 DCW [id number]) Balance Tests Yanez Balance Test Yanez Balance Test Score 46/56 Yanez Impairment Rating 1 to 19% Impaired (Score 45-55 ) Yanez Balance Assessment Evaluation Sitting to Standing Ability Independent w/out Hands Unsupported Stance Safely- 2 minutes Sitting Unsupported, Feet on Floor Safely- 2 minutes Standing to Sitting Ability Safely, Minimal Hand Use Transfer Ability Safely, Minimal Hand Use Unsupported Stance- Eyes Closed Safely, 10 seconds Unsupported Stance- Eyes Open Independent, 1 minute Reaching Forward Standing Safely, 5 inches Pick- Up Object From Floor Independent/Safe Look Behind Shoulder - Standing Turns Sideways Only Turning 360 Degrees Turns slowly, but safely Unsupported Stance, Alternating Feet on (I)- 8 Steps in > 20 secs Stair Unsupported Tandem Stance Holds Tandem- 30 seconds Unilateral Leg Stance Lifts Leg/Unable to Hold Total Score Yanez Total Score (out of 56 points) 46 Yanez Impairment Rating 1 to 19% Impaired (Score 45-55 ) PT-OP-E Functional Tests Start: 02/20/19 13:46 Freq: Status: Active Protocol: Document 02/17/20 13:45 DCW (Rec: 02/17/20 14:23 DCW [id number]) Functional Tests 2 Minute Walk Test Distance 242 Device Used SPC Comments 2.02 ft/sec Dynamic Gait Index (DGI) Score 17/24 DGI Impairment Rating 20 to <40% Impaired (Score 15- 19) PT-OP-F Manual Assessment Start: 10/04/17 14:21 Freq: Status: Active Protocol: Document 05/21/19 14:30 DCW (Rec: 05/21/19 15:12 DCW [id number]) Manual Assessments Soft Tissue Assessment Soft Tissue Mobility Assessment Moderate tone in Bilateral thoracic and lumbar paraspinals, piriformis, iliopsoas, and quadratus lumborum. Mild tone in bilateral hamstrings and adductor vinod PT-OP-J Posture/Palpation/Skin Start: 10/04/17 14:21 Freq: Status: Active Protocol: Document 02/17/20 13:45 DCW (Rec: 02/17/20 14:23 DCW [id number]) Posture Evaluation Position Standing Head/C-Spine Posture Forward Head T-Spine Posture Flexible Scoliosis on (L), Increased Kyphosis L-Spine Posture Flexible Scoliosis on (R) Pelvis Posture (L) Iliac Crest Superior Hip Posture (L) Flexed,(R) Flexed Comments Posture Comments Pt's jorge with cues to stand as tall as possible: 5' /c 1 heel heel PT-OP-K Range of Motion Start: 10/04/17 14:21 Freq: Status: Active Protocol: Document 02/17/20 13:45 DCW (Rec: 02/17/20 14:23 DCW [id number]) Lumbar Spine Range of Motion Lumbar Spine Active Degrees Testing Position Standing Comments Max extension, pt is forward flexed 6? at her thoracic spine Shoulder Goniometric Range of Motion Shoulder Left Active Shoulder ROM WFL No Testing Position Sitting Flexion 159 Abduction 158 External Rotation at 0 degrees Abduction 60 Right Active Shoulder ROM WFL No Testing Position Sitting Flexion 146 Abduction 129 External Rotation at 0 degrees Abduction 54 PT-OP-M Strength Start: 10/04/17 14:21 Freq: Status: Active Protocol: Document 12/18/18 13:45 DCW (Rec: 12/18/18 14:23 DCW [id number]) Shoulder Strength Shoulder Manual Muscle Testing Right Flexion 4 Good Abduction (C5) 4+ Good+ External Rotation 4+ Good+ Internal Rotation 5 Normal Left Flexion 4 Good Abduction (C5) 4+ Good+ External Rotation 4+ Good+ Internal Rotation 5 Normal PT-OP-Q Treatments Start: 08/06/17 17:30 Freq: Status: Active Protocol: Document 05/05/20 15:15 DCW (Rec: 05/05/20 15:57 DCW [id number]) Cardio Equipment Upper Body Ergometer (UBE) Duration (Minutes) 5 RPM 60 Seat Position 12 Height 2.5 Therapeutic Exercises Sitting Exercises PROM Abduction Sitting Exercise Name Pullies GH Abduction Side bilateral Reps/Minutes x10 PROM Flexion Sitting Exercise Name Pullies GH flexion Side bilateral Reps/Minutes x10 Manual Therapy Treatment Soft Tissue Mobilization 4 Body Location Piriformis Mobilization Type Strumming,Sustained Pressure, Trigger Point Release Intensity/Depth Moderate Body Position Sidelying 3 Body Location Quadratus Lumborum Mobilization Type Myofascial Release,Strumming, Sustained Pressure Intensity/Depth Moderate Body Position Sidelying 2 Body Location Glute Med Mobilization Type Strumming,Sustained Pressure Intensity/Depth Moderate Body Position Sidelying 1 Body Location Lumbar Erector Spinae Mobilization Type Myofascial Release,Sustained Pressure Intensity/Depth Moderate Body Position Sidelying Joint Mobilizations 1 Joint Thoracic Spine Direction P->A Grade II Body Position Sidelying Manual Traction Lumbar Details Hip/Iliac crest depression Body Position Sidelying Comments MWM PT-OP-R Modalities Start: 08/06/17 17:30 Freq: Status: Active Protocol: Document 05/05/20 15:15 DCW (Rec: 05/05/20 15:57 DCW [id number]) Electric Stimulation Electric Stimulation Interferential Current (IFC) Body Location Lumbar Spine Duration (Minutes) 15 Patient Position Sitting Combined With Heat/Cold Hot Pack Comments stool under B feet PT-OP-T Assessment and Plan Start: 08/06/17 17:30 Freq: Status: Active Protocol: Document 05/05/20 15:15 DCW (Rec: 05/05/20 15:57 DCW [id number]) Physical Therapy Assessment Impairments Impairments Activity Tolerance,Balance, Functional Activities, Functional Mobility,Gait,Pain, Posture,ROM,Soft Tissue Mobility,Strength,Tone Goals Seven Impairment Pt displays increased falls risk Short Term Goal (STG) Pt to score a 47/56 on the Yanez Balance Scale to demonstrate a decreased falls risk STG Duration 04/01/20 - Improving 46/56 On Site Manager Goal (LTG) Pt to score a 18/24 on the DGI - MET New Goal: LTG Duration 05/19/20 - Mild decline Six Impairment Difficulty of getting in the car On Site Manager Goal (LTG) Patient will get in to the car with proper mechanics without difficulty or low back pain LTG Duration Met Five Impairment Difficulty of lifting laundry from floor to shoulder level On Site Manager Goal (LTG) Patient will learn good lifting mechanics to prevent further low back pain. LTG Duration Met Four Impairment Palpable muscle tone On Site Manager Goal (LTG) Pt muscle tone grossly to mild levels of tone 02/17/2030-Cfp-Xnpait tone LTG Duration 05/19/20 Three Impairment Thoracic Spine ROM Short Term Goal (STG) Thoracic spine to lacking 10 degrees from neutral at full extension STG Duration Met On Site Manager Goal (LTG) Thoracic spine to neutral at full extension LTG Duration 05/19/20 - Decline to lacking 6 degrees Two Impairment Pain Senior Care Goal (LTG) Pt to report decreased pain to a max of 4/10 LTG Duration 05/19/20 One Impairment Activity tolerance Senior Care Goal (LTG) Pt to tolerate gardening with no increased pain for three hours 02/17/20 - pt tolerating two hours of gardening with increased pain after 30 minutes LTG Duration 2/17/21 Assessment Summary Assessment Decreased pressure used during STM and did not have pt lie back on towel roll due to increased soreness following Dexa scan today. Pt felt much less sore following therapy. Physical Therapy Plan Frequency and Duration Frequency of Treatment 1x/Week Duration of Treatment 3 months Plan of Care Start Date 02/17/20 Plan of Care End Date 05/19/20 Therapeutic Interventions Therapeutic Interventions Aquatic Therapy,Home Exercise Program,Joint Mobilizations, Manual Therapy,Neuromuscular Re-education,Self-Care/Home Management,Soft Tissue Mobilization,Therapeutic Exercises Modalities Cold Pack/Ice Massage,Electric Stimulation,Hot Packs Next Visit Focus/Plan Next Note Type Treatment Note Next Visit Plan Assess initiated abdominal STMs , next tx possible psoas to compliment posture. *Continue Per PT POC: Balance training, posture training, shoulder/scapular strengthening, STM
--- NOTE | 2020-05-12 16:09 | PT.OTN ---
Current Diagnoses Scoliosis, unspecified (05/12/20) Spondylosis without myelopathy or radiculopathy, cervical region (05/12/20) Pain in thoracic spine (05/12/20) Physical Therapy Treatment Note PT-OP-A Visit Information Start: 08/06/17 17:30 Freq: Status: Active Protocol: Document 05/12/20 15:15 DCW (Rec: 05/12/20 16:08 DCW [id number]) Out-Patient Physical Therapy Visit Information Visit Information Visit Type Treatment Note Visit Start Time 15:15 Visit Stop Time 16:10 Total Visit Minutes 55 Visit Number 122 Number of PIN SORTER AND BAGGER Visits 0 Evaluation Information Evaluation Date 05/28/17 PT-OP-B Current Condition Start: 10/04/17 14:21 Freq: Status: Active Protocol: Document 02/20/19 13:45 DCW (Rec: 02/20/19 14:36 DCW [id number]) Current Condition History of Current Condition History of Current Condition Please see patient's chart in Therapy Source for complete history and initial evaluation ADDENDEM 02/20/19: Pt has a new referral to work on balance and gait. Pt notes she doesn't have any recent falls , but that's because I'm good at grabbing things before I go down. Pt has been using a SPC for assistance, and has recently gotten a FWW, although she has yet to use it . Pt admits that she has not been picking my feet up very well. PT-OP-C Subjective Start: 08/06/17 17:30 Freq: Status: Active Protocol: Document 05/12/20 15:15 DCW (Rec: 05/12/20 16:08 DCW [id number]) OP-PT Subjective Patient Comments Patient Comments Pt notes she is quite a bit better than she was last week . NOtes she had a few x-rays last week, in order to prepare for an appointment with Dr Seth. PT-OP-D Balance Start: 02/20/19 13:46 Freq: Status: Active Protocol: Document 02/17/20 13:45 DCW (Rec: 02/17/20 14:23 DCW [id number]) Balance Tests Yanez Balance Test Yanez Balance Test Score 46/56 Yanez Impairment Rating 1 to 19% Impaired (Score 45-55 ) Yanez Balance Assessment Evaluation Sitting to Standing Ability Independent w/out Hands Unsupported Stance Safely- 2 minutes Sitting Unsupported, Feet on Floor Safely- 2 minutes Standing to Sitting Ability Safely, Minimal Hand Use Transfer Ability Safely, Minimal Hand Use Unsupported Stance- Eyes Closed Safely, 10 seconds Unsupported Stance- Eyes Open Independent, 1 minute Reaching Forward Standing Safely, 5 inches Pick- Up Object From Floor Independent/Safe Look Behind Shoulder - Standing Turns Sideways Only Turning 360 Degrees Turns slowly, but safely Unsupported Stance, Alternating Feet on (I)- 8 Steps in > 20 secs Stair Unsupported Tandem Stance Holds Tandem- 30 seconds Unilateral Leg Stance Lifts Leg/Unable to Hold Total Score Yanez Total Score (out of 56 points) 46 Yanez Impairment Rating 1 to 19% Impaired (Score 45-55 ) PT-OP-E Functional Tests Start: 02/20/19 13:46 Freq: Status: Active Protocol: Document 02/17/20 13:45 DCW (Rec: 02/17/20 14:23 DCW [id number]) Functional Tests 2 Minute Walk Test Distance 242 Device Used SPC Comments 2.02 ft/sec Dynamic Gait Index (DGI) Score 1724 DGI Impairment Rating 20 to <40% Impaired (Score 15- 19) PT-OP-F Manual Assessment Start: 10/04/17 14:21 Freq: Status: Active Protocol: Document 05/21/19 14:30 DCW (Rec: 05/21/19 15:12 DCW [id number]) Manual Assessments Soft Tissue Assessment Soft Tissue Mobility Assessment Moderate tone in Bilateral thoracic and lumbar paraspinals, piriformis, iliopsoas, and quadratus lumborum. Mild tone in bilateral hamstrings and adductor vinod PT-OP-J Posture/Palpation/Skin Start: 10/04/17 14:21 Freq: Status: Active Protocol: Document 02/17/20 13:45 DCW (Rec: 02/17/20 14:23 DCW [id number]) Posture Evaluation Position Standing Head/C-Spine Posture Forward Head T-Spine Posture Flexible Scoliosis on (L), Increased Kyphosis L-Spine Posture Flexible Scoliosis on (R) Pelvis Posture (L) Iliac Crest Superior Hip Posture (L) Flexed,(R) Flexed Comments Posture Comments Pt's jorge with cues to stand as tall as possible: 5' /c 1 heel heel PT-OP-K Range of Motion Start: 10/04/17 14:21 Freq: Status: Active Protocol: Document 02/17/20 13:45 DCW (Rec: 02/17/20 14:23 DCW [id number]) Lumbar Spine Range of Motion Lumbar Spine Active Degrees Testing Position Standing Comments Max extension, pt is forward flexed 6? at her thoracic spine Shoulder Goniometric Range of Motion Shoulder Left Active Shoulder ROM WFL No Testing Position Sitting Flexion 159 Abduction 158 External Rotation at 0 degrees Abduction 60 Right Active Shoulder ROM WFL No Testing Position Sitting Flexion 146 Abduction 129 External Rotation at 0 degrees Abduction 54 PT-OP-M Strength Start: 10/04/17 14:21 Freq: Status: Active Protocol: Document 12/18/18 13:45 DCW (Rec: 12/18/18 14:23 DCW [id number]) Shoulder Strength Shoulder Manual Muscle Testing Right Flexion 4 Good Abduction (C5) 4+ Good+ External Rotation 4+ Good+ Internal Rotation 5 Normal Left Flexion 4 Good Abduction (C5) 4+ Good+ External Rotation 4+ Good+ Internal Rotation 5 Normal PT-OP-Q Treatments Start: 08/06/17 17:30 Freq: Status: Active Protocol: Document 05/12/20 15:15 DCW (Rec: 05/12/20 16:08 DCW [id number]) Cardio Equipment Upper Body Ergometer (UBE) Duration (Minutes) 5 RPM 60 Seat Position 12 Height 2.5 Therapeutic Exercises Sitting Exercises PROM Abduction Sitting Exercise Name Pullies GH Abduction Side bilateral Reps/Minutes x10 PROM Flexion Sitting Exercise Name Pullies GH flexion Side bilateral Reps/Minutes x10 Standing Exercises Rows Standing Exercise Name Rows Side bilateral Resistance Lv 2 Equipment Used T-band Reps/Minutes 2x10 Comments VC for upright posture and slowing down movemnt Shoulder Extension Standing Exercise Name Extension Side bilateral Resistance Lv 2 Equipment Used T-band Reps/Minutes 2x10 Comments VC for upright posture and arm extension Manual Therapy Treatment Soft Tissue Mobilization 4 Body Location Piriformis Mobilization Type Strumming,Sustained Pressure, Trigger Point Release Intensity/Depth Moderate Body Position Sidelying 3 Body Location Quadratus Lumborum Mobilization Type Myofascial Release,Strumming, Sustained Pressure Intensity/Depth Moderate Body Position Sidelying 2 Body Location Glute Med Mobilization Type Strumming,Sustained Pressure Intensity/Depth Moderate Body Position Sidelying 1 Body Location Lumbar Erector Spinae Mobilization Type Myofascial Release,Sustained Pressure Intensity/Depth Moderate Body Position Sidelying Joint Mobilizations 1 Joint Thoracic Spine Direction P->A Grade II Body Position Sidelying Manual Traction Lumbar Details Hip/Iliac crest depression Body Position Sidelying Comments MWM PT-OP-R Modalities Start: 08/06/17 17:30 Freq: Status: Active Protocol: Document 05/12/20 15:15 DCW (Rec: 05/12/20 16:08 DCW [id number]) Electric Stimulation Electric Stimulation Interferential Current (IFC) Body Location Lumbar Spine Duration (Minutes) 15 Patient Position Sitting Combined With Heat/Cold Hot Pack Comments stool under B feet PT-OP-T Assessment and Plan Start: 08/06/17 17:30 Freq: Status: Active Protocol: Document 05/12/20 15:15 DCW (Rec: 05/12/20 16:08 DCW [id number]) Physical Therapy Assessment Impairments Impairments Activity Tolerance,Balance, Functional Activities, Functional Mobility,Gait,Pain, Posture,ROM,Soft Tissue Mobility,Strength,Tone Goals Seven Impairment Pt displays increased falls risk Short Term Goal (STG) Pt to score a 47/56 on the Yanez Balance Scale to demonstrate a decreased falls risk STG Duration 04/01/20 - Improving 46/56 Mcc Goal (LTG) Pt to score a 18/24 on the DGI - MET New Goal: LTG Duration 05/19/20 - Mild decline Six Impairment Difficulty of getting in the car Manufacturing Development Engineer Goal (LTG) Patient will get in to the car with proper mechanics without difficulty or low back pain LTG Duration Met Five Impairment Difficulty of lifting laundry from floor to shoulder level Mcc Goal (LTG) Patient will learn good lifting mechanics to prevent further low back pain. LTG Duration Met Four Impairment Palpable muscle tone Mcc Goal (LTG) Pt muscle tone grossly to mild levels of tone 02/17/2063-Hrz-Hganpw tone LTG Duration 05/19/20 Three Impairment Thoracic Spine ROM Short Term Goal (STG) Thoracic spine to lacking 10 degrees from neutral at full extension STG Duration Met Mcc Goal (LTG) Thoracic spine to neutral at full extension LTG Duration 05/19/20 - Decline to lacking 6 degrees Two Impairment Pain Manufacturing Development Engineer Goal (LTG) Pt to report decreased pain to a max of 4/10 LTG Duration 05/19/20 One Impairment Activity tolerance Manufacturing Development Engineer Goal (LTG) Pt to tolerate gardening with no increased pain for three hours 02/17/20 - pt tolerating two hours of gardening with increased pain after 30 minutes LTG Duration 05/19/20 Assessment Summary Assessment Pt doing much better today than last week, much better mobility getting onto and up from the treatment table. Pt still presenting with worsening kyphotic and scoliotic curvatures. Physical Therapy Plan Frequency and Duration Frequency of Treatment 1x/Week Duration of Treatment 3 months Plan of Care Start Date 02/17/20 Plan of Care End Date 05/19/20 Therapeutic Interventions Therapeutic Interventions Aquatic Therapy,Home Exercise Program,Joint Mobilizations, Manual Therapy,Neuromuscular Re-education,Self-Care/Home Management,Soft Tissue Mobilization,Therapeutic Exercises Modalities Cold Pack/Ice Massage,Electric Stimulation,Hot Packs Next Visit Focus/Plan Next Note Type Progress Note Next Visit Plan Reassessment/New POC
--- NOTE | 2020-05-19 17:36 | PT.OTN ---
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) Pain in thoracic spine (05/19/20) Physical Therapy Treatment Note PT-OP-A Visit Information Start: 08/06/17 17:30 Freq: Status: Active Protocol: Document 05/19/20 16:00 DCW (Rec: 05/19/20 17:36 DCW [id number]) Out-Patient Physical Therapy Visit Information Visit Information Visit Type Progress Note Visit Start Time 16:00 Visit Stop Time 16:45 Total Visit Minutes 45 Visit Number 123 Number of BILINGUAL SPEECH THERAPIST Visits 0 Evaluation Information Evaluation Date 05/28/17 PT-OP-B Current Condition Start: 10/04/17 14:21 Freq: Status: Active Protocol: Document 02/20/19 13:45 DCW (Rec: 02/20/19 14:36 DCW [id number]) Current Condition History of Current Condition History of Current Condition Please see patient's chart in Therapy Source for complete history and initial evaluation ADDENDEM 02/20/19: Pt has a new referral to work on balance and gait. Pt notes she doesn't have any recent falls , but that's because I'm good at grabbing things before I go down. Pt has been using a SPC for assistance, and has recently gotten a FWW, although she has yet to use it . Pt admits that she has not been picking my feet up very well. PT-OP-C Subjective Start: 08/06/17 17:30 Freq: Status: Active Protocol: Document 05/19/20 16:00 DCW (Rec: 05/19/20 17:36 DCW [id number]) OP-PT Subjective Patient Comments Patient Comments Pt feeling much better today than recent weeks. PT-OP-D Balance Start: 02/20/19 13:46 Freq: Status: Active Protocol: Document 05/19/20 16:00 DCW (Rec: 05/19/20 16:41 DCW [id number]) Balance Tests Yanez Balance Test Yanez Balance Test Score 46/56 Yanez Impairment Rating 1 to 19% Impaired (Score 45-55 ) Yanez Balance Assessment Evaluation Sitting to Standing Ability Independent w/out Hands Unsupported Stance Safely- 2 minutes Sitting Unsupported, Feet on Floor Safely- 2 minutes Standing to Sitting Ability Safely, Minimal Hand Use Transfer Ability Safely, Minimal Hand Use Unsupported Stance- Eyes Closed Safely, 10 seconds Unsupported Stance- Eyes Open Independent, 1 minute Reaching Forward Standing Safely, 5 inches Pick- Up Object From Floor Independent/Safe Look Behind Shoulder - Standing Turns Sideways Only Turning 360 Degrees Turns slowly, but safely Unsupported Stance, Alternating Feet on (I)- 8 Steps in > 20 secs Stair Unsupported Tandem Stance Holds Tandem- 30 seconds Unilateral Leg Stance Lifts Leg/Unable to Hold Total Score Yanez Total Score (out of 56 points) 46 Yanez Impairment Rating 1 to 19% Impaired (Score 45-55 ) PT-OP-E Functional Tests Start: 02/20/19 13:46 Freq: Status: Active Protocol: Document 05/19/20 16:00 DCW (Rec: 05/19/20 16:41 DCW [id number]) Functional Tests 2 Minute Walk Test Distance 257 Device Used SPC Comments 2.14 ft/sec Dynamic Gait Index (DGI) Score 19/24 DGI Impairment Rating 20 to <40% Impaired (Score 15- 19) PT-OP-F Manual Assessment Start: 10/04/17 14:21 Freq: Status: Active Protocol: Document 05/21/19 14:30 DCW (Rec: 05/21/19 15:12 DCW [id number]) Manual Assessments Soft Tissue Assessment Soft Tissue Mobility Assessment Moderate tone in Bilateral thoracic and lumbar paraspinals, piriformis, iliopsoas, and quadratus lumborum. Mild tone in bilateral hamstrings and adductor vinod PT-OP-J Posture/Palpation/Skin Start: 10/04/17 14:21 Freq: Status: Active Protocol: Document 05/19/20 16:00 DCW (Rec: 05/19/20 16:41 DCW [id number]) Posture Evaluation Position Standing Head/C-Spine Posture Forward Head T-Spine Posture Flexible Scoliosis on (L), Increased Kyphosis L-Spine Posture Flexible Scoliosis on (R) Pelvis Posture (L) Iliac Crest Superior Hip Posture (L) Flexed,(R) Flexed Comments Posture Comments Pt's jorge with cues to stand as tall as possible: 5' 0.5 / c 1 heel heel PT-OP-K Range of Motion Start: 10/04/17 14:21 Freq: Status: Active Protocol: Document 05/19/20 16:00 DCW (Rec: 05/19/20 16:41 DCW [id number]) Lumbar Spine Range of Motion Lumbar Spine Active Degrees Testing Position Standing Comments Max extension, pt is forward flexed 5? at her thoracic spine Shoulder Goniometric Range of Motion Shoulder Left Active Shoulder ROM WFL No Testing Position Sitting Flexion 159 Abduction 149 External Rotation at 0 degrees Abduction 58 Right Active Shoulder ROM WFL No Testing Position Sitting Flexion 138 Abduction 126 External Rotation at 0 degrees Abduction 55 PT-OP-M Strength Start: 10/04/17 14:21 Freq: Status: Active Protocol: Document 12/18/18 13:45 DCW (Rec: 12/18/18 14:23 DCW [id number]) Shoulder Strength Shoulder Manual Muscle Testing Right Flexion 4 Good Abduction (C5) 4+ Good+ External Rotation 4+ Good+ Internal Rotation 5 Normal Left Flexion 4 Good Abduction (C5) 4+ Good+ External Rotation 4+ Good+ Internal Rotation 5 Normal PT-OP-Q Treatments Start: 08/06/17 17:30 Freq: Status: Active Protocol: Document 05/19/20 16:00 DCW (Rec: 05/19/20 17:36 DCW [id number]) Neuro Re-Education Treatment Other Activities Testing Details 2 MWT, DGI, Yanez PT-OP-R Modalities Start: 08/06/17 17:30 Freq: Status: Active Protocol: Document 05/12/20 15:15 DCW (Rec: 05/12/20 16:08 DCW [id number]) Electric Stimulation Electric Stimulation Interferential Current (IFC) Body Location Lumbar Spine Duration (Minutes) 15 Patient Position Sitting Combined With Heat/Cold Hot Pack Comments stool under B feet PT-OP-T Assessment and Plan Start: 08/06/17 17:30 Freq: Status: Active Protocol: Document 05/19/20 16:00 DCW (Rec: 05/19/20 17:36 DCW [id number]) Physical Therapy Assessment Impairments Impairments Activity Tolerance,Balance, Functional Activities, Functional Mobility,Gait,Pain, Posture,ROM,Soft Tissue Mobility,Strength,Tone Goals Seven Impairment Pt displays increased falls risk Short Term Goal (STG) Pt to score a 47/56 on the Yanez Balance Scale to demonstrate a decreased falls risk STG Duration 4/17/21 - current 46/56 Chief Fundraising Officer Goal (LTG) Pt to score a 18/24 on the DGI - MET New Goal: LTG Duration 08/16/20 - Current Six Impairment Difficulty of getting in the car Chief Fundraising Officer Goal (LTG) Patient will get in to the car with proper mechanics without difficulty or low back pain LTG Duration Met Five Impairment Difficulty of lifting laundry from floor to shoulder level Retirement Goal (LTG) Patient will learn good lifting mechanics to prevent further low back pain. LTG Duration Met Four Impairment Palpable muscle tone Chief Fundraising Officer Goal (LTG) Pt muscle tone grossly to mild levels of tone 05/19/2087-Tvp-Wezodq tone LTG Duration 08/16/20 Three Impairment Thoracic Spine ROM Short Term Goal (STG) Thoracic spine to lacking 10? from neutral at full extension STG Duration Met Retirement Goal (LTG) Thoracic spine to neutral at full extension LTG Duration 05/19/20 - currently lacking 5? Two Impairment Pain Chief Fundraising Officer Goal (LTG) Pt to report decreased pain to a max of 4/10 LTG Duration 08/16/20 One Impairment Activity tolerance Retirement Goal (LTG) Pt to tolerate gardening with no increased pain for three hours 05/19/20 - pt tolerating two hours of gardening with increased pain after 30 minutes LTG Duration 08/16/20 Assessment Summary Assessment Pt overall showing some improvement in most areas. Yanez score is unchanged, shoulder ROM is largely the same, but shows improvement in DGI (2 points), 2 MWT (15') and shows improved thoracic extension, gaining a half inch of height. Continued skilled therapy should be beneficial in order to continue working to improve balance, posture, and strength. Physical Therapy Plan Frequency and Duration Frequency of Treatment 1x/Week Duration of Treatment 3 months Plan of Care Start Date 05/19/20 Plan of Care End Date 08/16/20 Therapeutic Interventions Therapeutic Interventions Aquatic Therapy,Home Exercise Program,Joint Mobilizations, Manual Therapy,Neuromuscular Re-education,Self-Care/Home Management,Soft Tissue Mobilization,Therapeutic Exercises Modalities Cold Pack/Ice Massage,Electric Stimulation,Hot Packs Next Visit Focus/Plan Next Note Type Treatment Note Next Visit Plan STM/posture, strengthening
--- NOTE | 2020-05-19 17:37 | PT.OPPOC ---
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) Pain in thoracic spine (05/19/20) Visit Care Team Role Provider Type Jia Sheridan MD Attending Provider Physician Family Provider Primary Care Provider Referring Provider Specialty: [facility] Practice Address: [address] [place] [address], [facility] [place], [address] Email: [email or web address] Plan Of Care PT-OP-T Assessment and Plan Start: 08/06/17 17:30 Freq: Status: Active Protocol: Document 05/19/20 16:00 DCW (Rec: 05/19/20 17:36 DCW [id number]) Physical Therapy Assessment Impairments Impairments Activity Tolerance,Balance, Functional Activities, Functional Mobility,Gait,Pain, Posture,ROM,Soft Tissue Mobility,Strength,Tone Goals Seven Impairment Pt displays increased falls risk Short Term Goal (STG) Pt to score a 47/56 on the Yanez Balance Scale to demonstrate a decreased falls risk STG Duration 07/17/20 - current 46/56 Snowmobile Mechanic Goal (LTG) Pt to score a 18/24 on the DGI - MET New Goal: LTG Duration 08/16/20 - Current Six Impairment Difficulty of getting in the car Penitentiary Goal (LTG) Patient will get in to the car with proper mechanics without difficulty or low back pain LTG Duration Met Five Impairment Difficulty of lifting laundry from floor to shoulder level Penitentiary Goal (LTG) Patient will learn good lifting mechanics to prevent further low back pain. LTG Duration Met Four Impairment Palpable muscle tone Snowmobile Mechanic Goal (LTG) Pt muscle tone grossly to mild levels of tone 05/19/2013-Rdt-Vixhxb tone LTG Duration 08/16/20 Three Impairment Thoracic Spine ROM Short Term Goal (STG) Thoracic spine to lacking 10? from neutral at full extension STG Duration Met Snowmobile Mechanic Goal (LTG) Thoracic spine to neutral at full extension LTG Duration 05/19/20 - currently lacking 5? Two Impairment Pain Snowmobile Mechanic Goal (LTG) Pt to report decreased pain to a max of 4/10 LTG Duration 08/16/20 One Impairment Activity tolerance Snowmobile Mechanic Goal (LTG) Pt to tolerate gardening with no increased pain for three hours 05/19/20 - pt tolerating two hours of gardening with increased pain after 30 minutes LTG Duration 08/16/20 Assessment Summary Assessment Pt overall showing some improvement in most areas. Yanez score is unchanged, shoulder ROM is largely the same, but shows improvement in DGI (2 points), 2 MWT (15') and shows improved thoracic extension, gaining a half inch of height. Continued skilled therapy should be beneficial in order to continue working to improve balance, posture, and strength. Physical Therapy Plan Frequency and Duration Frequency of Treatment 1x/Week Duration of Treatment 3 months Plan of Care Start Date 05/19/20 Plan of Care End Date 08/16/20 Therapeutic Interventions Therapeutic Interventions Aquatic Therapy,Home Exercise Program,Joint Mobilizations, Manual Therapy,Neuromuscular Re-education,Self-Care/Home Management,Soft Tissue Mobilization,Therapeutic Exercises Modalities Cold Pack/Ice Massage,Electric Stimulation,Hot Packs Next Visit Focus/Plan Next Note Type Treatment Note Next Visit Plan STM/posture, strengthening Plan of Care Dates Plan of Care Start Date 05/19/20 Plan of Care End Date 08/16/20 Electronically Signed by: Wallace Wilson, PT 05/19/20 [id number] Please Sign and Return: I have reviewed this Plan of Care and certify that the skilled therapy services above are required to meet the patient?s needs. Physician Signature Date Printed Name and Credentials Clinical Instructor Signature Printed Name and Credentials
--- NOTE | 2020-05-26 16:48 | PT.OTN ---
Current Diagnoses Scoliosis, unspecified (05/26/20) Spondylosis without myelopathy or radiculopathy, cervical region (05/26/20) Pain in thoracic spine (05/26/20) Physical Therapy Treatment Note PT-OP-A Visit Information Start: 08/06/17 17:30 Freq: Status: Active Protocol: Document 05/26/20 16:00 DCW (Rec: 05/26/20 16:48 DCW [id number]) Out-Patient Physical Therapy Visit Information Visit Information Visit Type Treatment Note Visit Start Time 16:00 Visit Stop Time 16:55 Total Visit Minutes 55 Visit Number 124 Number of ELECTRICAL DEVELOPMENT ENGINEER Visits 0 Evaluation Information Evaluation Date 05/28/17 PT-OP-B Current Condition Start: 10/04/17 14:21 Freq: Status: Active Protocol: Document 02/20/19 13:45 DCW (Rec: 02/20/19 14:36 DCW [id number]) Current Condition History of Current Condition History of Current Condition Please see patient's chart in Therapy Source for complete history and initial evaluation ADDENDEM 02/20/19: Pt has a new referral to work on balance and gait. Pt notes she doesn't have any recent falls , but that's because I'm good at grabbing things before I go down. Pt has been using a SPC for assistance, and has recently gotten a FWW, although she has yet to use it . Pt admits that she has not been picking my feet up very well. PT-OP-C Subjective Start: 08/06/17 17:30 Freq: Status: Active Protocol: Document 05/26/20 16:00 DCW (Rec: 05/26/20 16:48 DCW [id number]) OP-PT Subjective Patient Comments Patient Comments Physically I'm okay, emotionally, I'm just angry. PT-OP-D Balance Start: 02/20/19 13:46 Freq: Status: Active Protocol: Document 05/19/20 16:00 DCW (Rec: 05/19/20 16:41 DCW [id number]) Balance Tests Yanez Balance Test Yanez Balance Test Score 46/56 Yanez Impairment Rating 1 to 19% Impaired (Score 45-55 ) Yanez Balance Assessment Evaluation Sitting to Standing Ability Independent w/out Hands Unsupported Stance Safely- 2 minutes Sitting Unsupported, Feet on Floor Safely- 2 minutes Standing to Sitting Ability Safely, Minimal Hand Use Transfer Ability Safely, Minimal Hand Use Unsupported Stance- Eyes Closed Safely, 10 seconds Unsupported Stance- Eyes Open Independent, 1 minute Reaching Forward Standing Safely, 5 inches Pick- Up Object From Floor Independent/Safe Look Behind Shoulder - Standing Turns Sideways Only Turning 360 Degrees Turns slowly, but safely Unsupported Stance, Alternating Feet on (I)- 8 Steps in > 20 secs Stair Unsupported Tandem Stance Holds Tandem- 30 seconds Unilateral Leg Stance Lifts Leg/Unable to Hold Total Score Yanez Total Score (out of 56 points) 46 Yanez Impairment Rating 1 to 19% Impaired (Score 45-55 ) PT-OP-E Functional Tests Start: 02/20/19 13:46 Freq: Status: Active Protocol: Document 05/19/20 16:00 DCW (Rec: 05/19/20 16:41 DCW [id number]) Functional Tests 2 Minute Walk Test Distance 257 Device Used SPC Comments 2.14 ft/sec Dynamic Gait Index (DGI) Score 19/24 DGI Impairment Rating 20 to <40% Impaired (Score 15- 19) PT-OP-F Manual Assessment Start: 10/04/17 14:21 Freq: Status: Active Protocol: Document 05/21/19 14:30 DCW (Rec: 05/21/19 15:12 DCW [id number]) Manual Assessments Soft Tissue Assessment Soft Tissue Mobility Assessment Moderate tone in Bilateral thoracic and lumbar paraspinals, piriformis, iliopsoas, and quadratus lumborum. Mild tone in bilateral hamstrings and adductor vinod PT-OP-J Posture/Palpation/Skin Start: 10/04/17 14:21 Freq: Status: Active Protocol: Document 05/19/20 16:00 DCW (Rec: 05/19/20 16:41 DCW [id number]) Posture Evaluation Position Standing Head/C-Spine Posture Forward Head T-Spine Posture Flexible Scoliosis on (L), Increased Kyphosis L-Spine Posture Flexible Scoliosis on (R) Pelvis Posture (L) Iliac Crest Superior Hip Posture (L) Flexed,(R) Flexed Comments Posture Comments Pt's jorge with cues to stand as tall as possible: 5' 0.5 / c 1 heel heel PT-OP-K Range of Motion Start: 10/04/17 14:21 Freq: Status: Active Protocol: Document 05/19/20 16:00 DCW (Rec: 05/19/20 16:41 DCW [id number]) Lumbar Spine Range of Motion Lumbar Spine Active Degrees Testing Position Standing Comments Max extension, pt is forward flexed 5? at her thoracic spine Shoulder Goniometric Range of Motion Shoulder Left Active Shoulder ROM WFL No Testing Position Sitting Flexion 159 Abduction 149 External Rotation at 0 degrees Abduction 58 Right Active Shoulder ROM WFL No Testing Position Sitting Flexion 138 Abduction 126 External Rotation at 0 degrees Abduction 55 PT-OP-M Strength Start: 10/04/17 14:21 Freq: Status: Active Protocol: Document 12/18/18 13:45 DCW (Rec: 12/18/18 14:23 DCW [id number]) Shoulder Strength Shoulder Manual Muscle Testing Right Flexion 4 Good Abduction (C5) 4+ Good+ External Rotation 4+ Good+ Internal Rotation 5 Normal Left Flexion 4 Good Abduction (C5) 4+ Good+ External Rotation 4+ Good+ Internal Rotation 5 Normal PT-OP-Q Treatments Start: 08/06/17 17:30 Freq: Status: Active Protocol: Document 05/26/20 16:00 DCW (Rec: 05/26/20 16:48 DCW [id number]) Cardio Equipment Upper Body Ergometer (UBE) Duration (Minutes) 5 RPM 60 Seat Position 12 Height 2.5 Therapeutic Exercises Supine Exercises 1 Supine Exercise Name Supine on Towel roll at T10-12 Side bilateral Comments increase thoracolumbar extension Sitting Exercises PROM Abduction Sitting Exercise Name Pullies GH Abduction Side bilateral Reps/Minutes x10 PROM Flexion Sitting Exercise Name Pullies GH flexion Side bilateral Reps/Minutes x10 Manual Therapy Treatment Soft Tissue Mobilization 4 Body Location Piriformis Mobilization Type Strumming,Sustained Pressure, Trigger Point Release Intensity/Depth Moderate Body Position Sidelying 3 Body Location Quadratus Lumborum Mobilization Type Myofascial Release,Strumming, Sustained Pressure Intensity/Depth Moderate Body Position Sidelying 2 Body Location Glute Med Mobilization Type Strumming,Sustained Pressure Intensity/Depth Moderate Body Position Sidelying 1 Body Location Lumbar Erector Spinae Mobilization Type Myofascial Release,Sustained Pressure Intensity/Depth Moderate Body Position Sidelying Joint Mobilizations 1 Joint Thoracic Spine Direction P->A Grade II Body Position Sidelying Manual Traction Lumbar Details Hip/Iliac crest depression Body Position Sidelying Comments MWM PT-OP-R Modalities Start: 08/06/17 17:30 Freq: Status: Active Protocol: Document 05/26/20 16:00 DCW (Rec: 05/26/20 16:48 DCW [id number]) Electric Stimulation Electric Stimulation Interferential Current (IFC) Body Location Lumbar Spine Duration (Minutes) 15 Patient Position Sitting Combined With Heat/Cold Hot Pack Comments stool under B feet PT-OP-T Assessment and Plan Start: 08/06/17 17:30 Freq: Status: Active Protocol: Document 05/26/20 16:00 DCW (Rec: 05/26/20 16:48 DCW [id number]) Physical Therapy Assessment Impairments Impairments Activity Tolerance,Balance, Functional Activities, Functional Mobility,Gait,Pain, Posture,ROM,Soft Tissue Mobility,Strength,Tone Goals Seven Impairment Pt displays increased falls risk Short Term Goal (STG) Pt to score a 47/56 on the Yanez Balance Scale to demonstrate a decreased falls risk STG Duration 07/17/20 - current 46/56 Correction Goal (LTG) Pt to score a 18/24 on the DGI - MET New Goal: LTG Duration 08/16/20 - Current Six Impairment Difficulty of getting in the car Funding Specialist Goal (LTG) Patient will get in to the car with proper mechanics without difficulty or low back pain LTG Duration Met Five Impairment Difficulty of lifting laundry from floor to shoulder level Correction Goal (LTG) Patient will learn good lifting mechanics to prevent further low back pain. LTG Duration Met Four Impairment Palpable muscle tone Correction Goal (LTG) Pt muscle tone grossly to mild levels of tone 05/19/2028-Xsz-Ubvlna tone LTG Duration 08/16/20 Three Impairment Thoracic Spine ROM Short Term Goal (STG) Thoracic spine to lacking 10? from neutral at full extension STG Duration Met Correction Goal (LTG) Thoracic spine to neutral at full extension LTG Duration 05/19/20 - currently lacking 5? Two Impairment Pain Funding Specialist Goal (LTG) Pt to report decreased pain to a max of 4/10 LTG Duration 08/16/20 One Impairment Activity tolerance Correction Goal (LTG) Pt to tolerate gardening with no increased pain for three hours 05/19/20 - pt tolerating two hours of gardening with increased pain after 30 minutes LTG Duration 08/16/20 Assessment Summary Assessment Pt tolerated treatment well today, feeling pretty good overall. Decreased complaints of her ribs rubbing her hip recently. Physical Therapy Plan Frequency and Duration Frequency of Treatment 1x/Week Duration of Treatment 3 months Plan of Care Start Date 05/19/20 Plan of Care End Date 08/16/20 Therapeutic Interventions Therapeutic Interventions Aquatic Therapy,Home Exercise Program,Joint Mobilizations, Manual Therapy,Neuromuscular Re-education,Self-Care/Home Management,Soft Tissue Mobilization,Therapeutic Exercises Modalities Cold Pack/Ice Massage,Electric Stimulation,Hot Packs Next Visit Focus/Plan Next Note Type Treatment Note Next Visit Plan STM/posture, strengthening
--- NOTE | 2020-06-02 11:14 | PT.OTN ---
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) Pain in thoracic spine (06/02/20) Physical Therapy Treatment Note PT-OP-A Visit Information Start: 08/06/17 17:30 Freq: Status: Active Protocol: Document 06/02/20 10:30 DCW (Rec: 06/02/20 11:14 DCW [id number]) Out-Patient Physical Therapy Visit Information Visit Information Visit Type Treatment Note Visit Start Time 10:30 Visit Stop Time 11:25 Total Visit Minutes 55 Visit Number 125 Number of TABLET MACHINE OPERATOR Visits 0 Evaluation Information Evaluation Date 05/28/17 PT-OP-B Current Condition Start: 10/04/17 14:21 Freq: Status: Active Protocol: Document 02/20/19 13:45 DCW (Rec: 02/20/19 14:36 DCW [id number]) Current Condition History of Current Condition History of Current Condition Please see patient's chart in Therapy Source for complete history and initial evaluation ADDENDEM 02/20/19: Pt has a new referral to work on balance and gait. Pt notes she doesn't have any recent falls , but that's because I'm good at grabbing things before I go down. Pt has been using a SPC for assistance, and has recently gotten a FWW, although she has yet to use it . Pt admits that she has not been picking my feet up very well. PT-OP-C Subjective Start: 08/06/17 17:30 Freq: Status: Active Protocol: Document 06/02/20 10:30 DCW (Rec: 06/02/20 11:14 DCW [id number]) OP-PT Subjective Patient Comments Patient Comments Pt reports she feels pretty good today. PT-OP-D Balance Start: 02/20/19 13:46 Freq: Status: Active Protocol: Document 05/19/20 16:00 DCW (Rec: 05/19/20 16:41 DCW [id number]) Balance Tests Yanez Balance Test Yanez Balance Test Score 46/56 Yanez Impairment Rating 1 to 19% Impaired (Score 45-55 ) Yanez Balance Assessment Evaluation Sitting to Standing Ability Independent w/out Hands Unsupported Stance Safely- 2 minutes Sitting Unsupported, Feet on Floor Safely- 2 minutes Standing to Sitting Ability Safely, Minimal Hand Use Transfer Ability Safely, Minimal Hand Use Unsupported Stance- Eyes Closed Safely, 10 seconds Unsupported Stance- Eyes Open Independent, 1 minute Reaching Forward Standing Safely, 5 inches Pick- Up Object From Floor Independent/Safe Look Behind Shoulder - Standing Turns Sideways Only Turning 360 Degrees Turns slowly, but safely Unsupported Stance, Alternating Feet on (I)- 8 Steps in > 20 secs Stair Unsupported Tandem Stance Holds Tandem- 30 seconds Unilateral Leg Stance Lifts Leg/Unable to Hold Total Score Yanez Total Score (out of 56 points) 46 Yanez Impairment Rating 1 to 19% Impaired (Score 45-55 ) PT-OP-E Functional Tests Start: 02/20/19 13:46 Freq: Status: Active Protocol: Document 05/19/20 16:00 DCW (Rec: 05/19/20 16:41 DCW [id number]) Functional Tests 2 Minute Walk Test Distance 257 Device Used SPC Comments 2.14 ft/sec Dynamic Gait Index (DGI) Score 19/24 DGI Impairment Rating 20 to <40% Impaired (Score 15- 19) PT-OP-F Manual Assessment Start: 10/04/17 14:21 Freq: Status: Active Protocol: Document 05/21/19 14:30 DCW (Rec: 05/21/19 15:12 DCW [id number]) Manual Assessments Soft Tissue Assessment Soft Tissue Mobility Assessment Moderate tone in Bilateral thoracic and lumbar paraspinals, piriformis, iliopsoas, and quadratus lumborum. Mild tone in bilateral hamstrings and adductor vinod PT-OP-J Posture/Palpation/Skin Start: 10/04/17 14:21 Freq: Status: Active Protocol: Document 05/19/20 16:00 DCW (Rec: 05/19/20 16:41 DCW [id number]) Posture Evaluation Position Standing Head/C-Spine Posture Forward Head T-Spine Posture Flexible Scoliosis on (L), Increased Kyphosis L-Spine Posture Flexible Scoliosis on (R) Pelvis Posture (L) Iliac Crest Superior Hip Posture (L) Flexed,(R) Flexed Comments Posture Comments Pt's jorge with cues to stand as tall as possible: 5' 0.5 / c 1 heel heel PT-OP-K Range of Motion Start: 10/04/17 14:21 Freq: Status: Active Protocol: Document 05/19/20 16:00 DCW (Rec: 05/19/20 16:41 DCW [id number]) Lumbar Spine Range of Motion Lumbar Spine Active Degrees Testing Position Standing Comments Max extension, pt is forward flexed 5? at her thoracic spine Shoulder Goniometric Range of Motion Shoulder Left Active Shoulder ROM WFL No Testing Position Sitting Flexion 159 Abduction 149 External Rotation at 0 degrees Abduction 58 Right Active Shoulder ROM WFL No Testing Position Sitting Flexion 138 Abduction 126 External Rotation at 0 degrees Abduction 55 PT-OP-M Strength Start: 10/04/17 14:21 Freq: Status: Active Protocol: Document 12/18/18 13:45 DCW (Rec: 12/18/18 14:23 DCW [id number]) Shoulder Strength Shoulder Manual Muscle Testing Right Flexion 4 Good Abduction (C5) 4+ Good+ External Rotation 4+ Good+ Internal Rotation 5 Normal Left Flexion 4 Good Abduction (C5) 4+ Good+ External Rotation 4+ Good+ Internal Rotation 5 Normal PT-OP-Q Treatments Start: 08/06/17 17:30 Freq: Status: Active Protocol: Document 06/02/20 10:30 DCW (Rec: 06/02/20 11:14 DCW [id number]) Cardio Equipment Upper Body Ergometer (UBE) Duration (Minutes) 5 RPM 60 Seat Position 12 Height 2.5 Therapeutic Exercises Supine Exercises 1 Supine Exercise Name Supine on Towel roll at T10-12 Side bilateral Comments increase thoracolumbar extension Sitting Exercises PROM Abduction Sitting Exercise Name Pullies GH Abduction Side bilateral Reps/Minutes x10 PROM Flexion Sitting Exercise Name Pullies GH flexion Side bilateral Reps/Minutes x10 Standing Exercises Rows Standing Exercise Name Rows Side bilateral Resistance Lv 3 Equipment Used T-band Reps/Minutes 2x10 Comments VC for upright posture and slowing down movemnt Shoulder Extension Standing Exercise Name Extension Side bilateral Resistance Lv 3 Equipment Used T-band Reps/Minutes 2x10 Comments VC for upright posture and arm extension Manual Therapy Treatment Soft Tissue Mobilization 4 Body Location Piriformis Mobilization Type Strumming,Sustained Pressure, Trigger Point Release Intensity/Depth Moderate Body Position Sidelying 3 Body Location Quadratus Lumborum Mobilization Type Myofascial Release,Strumming, Sustained Pressure Intensity/Depth Moderate Body Position Sidelying 2 Body Location Glute Med Mobilization Type Strumming,Sustained Pressure Intensity/Depth Moderate Body Position Sidelying 1 Body Location Lumbar Erector Spinae Mobilization Type Myofascial Release,Sustained Pressure Intensity/Depth Moderate Body Position Sidelying Joint Mobilizations 1 Joint Thoracic Spine Direction P->A Grade II Body Position Sidelying Manual Traction Lumbar Details Hip/Iliac crest depression Body Position Sidelying Comments MWM PT-OP-R Modalities Start: 08/06/17 17:30 Freq: Status: Active Protocol: Document 06/02/20 10:30 DCW (Rec: 06/02/20 11:14 DCW [id number]) Electric Stimulation Electric Stimulation Interferential Current (IFC) Body Location Lumbar Spine Duration (Minutes) 15 Patient Position Sitting Combined With Heat/Cold Hot Pack Comments stool under B feet PT-OP-T Assessment and Plan Start: 08/06/17 17:30 Freq: Status: Active Protocol: Document 06/02/20 10:30 DCW (Rec: 06/02/20 11:14 DCW [id number]) Physical Therapy Assessment Impairments Impairments Activity Tolerance,Balance, Functional Activities, Functional Mobility,Gait,Pain, Posture,ROM,Soft Tissue Mobility,Strength,Tone Goals Seven Impairment Pt displays increased falls risk Short Term Goal (STG) Pt to score a 47/56 on the Yanez Balance Scale to demonstrate a decreased falls risk STG Duration 07/17/20 - current 46/56 Fpc Goal (LTG) Pt to score a 18/24 on the DGI - MET New Goal: LTG Duration 08/16/20 - Current Six Impairment Difficulty of getting in the car Waiter/Waitress Goal (LTG) Patient will get in to the car with proper mechanics without difficulty or low back pain LTG Duration Met Five Impairment Difficulty of lifting laundry from floor to shoulder level Fpc Goal (LTG) Patient will learn good lifting mechanics to prevent further low back pain. LTG Duration Met Four Impairment Palpable muscle tone Fpc Goal (LTG) Pt muscle tone grossly to mild levels of tone 05/19/2037-Zof-Nvuxqa tone LTG Duration 08/16/20 Three Impairment Thoracic Spine ROM Short Term Goal (STG) Thoracic spine to lacking 10? from neutral at full extension STG Duration Met Fpc Goal (LTG) Thoracic spine to neutral at full extension LTG Duration 05/19/20 - currently lacking 5? Two Impairment Pain Waiter/Waitress Goal (LTG) Pt to report decreased pain to a max of 4/10 LTG Duration 08/16/20 One Impairment Activity tolerance Fpc Goal (LTG) Pt to tolerate gardening with no increased pain for three hours 05/19/20 - pt tolerating two hours of gardening with increased pain after 30 minutes LTG Duration 08/16/20 Assessment Summary Assessment Pt had no complaints today, less tone through low back, minimal discomfort with STM. Physical Therapy Plan Frequency and Duration Frequency of Treatment 1x/Week Duration of Treatment 3 months Plan of Care Start Date 05/19/20 Plan of Care End Date 08/16/20 Therapeutic Interventions Therapeutic Interventions Aquatic Therapy,Home Exercise Program,Joint Mobilizations, Manual Therapy,Neuromuscular Re-education,Self-Care/Home Management,Soft Tissue Mobilization,Therapeutic Exercises Modalities Cold Pack/Ice Massage,Electric Stimulation,Hot Packs Next Visit Focus/Plan Next Note Type Treatment Note Next Visit Plan STM/posture, strengthening
--- NOTE | 2020-06-09 14:37 | PT.OTN ---
Current Diagnoses Scoliosis, unspecified (06/09/20) Spondylosis without myelopathy or radiculopathy, cervical region (06/09/20) Pain in thoracic spine (06/09/20) Physical Therapy Treatment Note PT-OP-A Visit Information Start: 08/06/17 17:30 Freq: Status: Active Protocol: Document 06/09/20 13:45 DCW (Rec: 06/09/20 14:36 DCW [id number]) Out-Patient Physical Therapy Visit Information Visit Information Visit Type Treatment Note Visit Start Time 13:45 Visit Stop Time 14:40 Total Visit Minutes 55 Visit Number 126 Number of OUTSOLES CHANNEL OPENER Visits 0 Evaluation Information Evaluation Date 05/28/17 PT-OP-B Current Condition Start: 10/04/17 14:21 Freq: Status: Active Protocol: Document 02/20/19 13:45 DCW (Rec: 02/20/19 14:36 DCW [id number]) Current Condition History of Current Condition History of Current Condition Please see patient's chart in Therapy Source for complete history and initial evaluation ADDENDEM 02/20/19: Pt has a new referral to work on balance and gait. Pt notes she doesn't have any recent falls , but that's because I'm good at grabbing things before I go down. Pt has been using a SPC for assistance, and has recently gotten a FWW, although she has yet to use it . Pt admits that she has not been picking my feet up very well. PT-OP-C Subjective Start: 08/06/17 17:30 Freq: Status: Active Protocol: Document 06/09/20 13:45 DCW (Rec: 06/09/20 14:36 DCW [id number]) OP-PT Subjective Patient Comments Patient Comments Pt notes she is reasonably well today. PT-OP-D Balance Start: 02/20/19 13:46 Freq: Status: Active Protocol: Document 05/19/20 16:00 DCW (Rec: 05/19/20 16:41 DCW [id number]) Balance Tests Yanez Balance Test Yanez Balance Test Score 46/56 Yanez Impairment Rating 1 to 19% Impaired (Score 45-55 ) Yanez Balance Assessment Evaluation Sitting to Standing Ability Independent w/out Hands Unsupported Stance Safely- 2 minutes Sitting Unsupported, Feet on Floor Safely- 2 minutes Standing to Sitting Ability Safely, Minimal Hand Use Transfer Ability Safely, Minimal Hand Use Unsupported Stance- Eyes Closed Safely, 10 seconds Unsupported Stance- Eyes Open Independent, 1 minute Reaching Forward Standing Safely, 5 inches Pick- Up Object From Floor Independent/Safe Look Behind Shoulder - Standing Turns Sideways Only Turning 360 Degrees Turns slowly, but safely Unsupported Stance, Alternating Feet on (I)- 8 Steps in > 20 secs Stair Unsupported Tandem Stance Holds Tandem- 30 seconds Unilateral Leg Stance Lifts Leg/Unable to Hold Total Score Yanez Total Score (out of 56 points) 46 Yanez Impairment Rating 1 to 19% Impaired (Score 45-55 ) PT-OP-E Functional Tests Start: 02/20/19 13:46 Freq: Status: Active Protocol: Document 05/19/20 16:00 DCW (Rec: 05/19/20 16:41 DCW [id number]) Functional Tests 2 Minute Walk Test Distance 257 Device Used SPC Comments 2.14 ft/sec Dynamic Gait Index (DGI) Score 19/24 DGI Impairment Rating 20 to <40% Impaired (Score 15- 19) PT-OP-F Manual Assessment Start: 10/04/17 14:21 Freq: Status: Active Protocol: Document 05/21/19 14:30 DCW (Rec: 05/21/19 15:12 DCW [id number]) Manual Assessments Soft Tissue Assessment Soft Tissue Mobility Assessment Moderate tone in Bilateral thoracic and lumbar paraspinals, piriformis, iliopsoas, and quadratus lumborum. Mild tone in bilateral hamstrings and adductor vinod PT-OP-J Posture/Palpation/Skin Start: 10/04/17 14:21 Freq: Status: Active Protocol: Document 05/19/20 16:00 DCW (Rec: 05/19/20 16:41 DCW [id number]) Posture Evaluation Position Standing Head/C-Spine Posture Forward Head T-Spine Posture Flexible Scoliosis on (L), Increased Kyphosis L-Spine Posture Flexible Scoliosis on (R) Pelvis Posture (L) Iliac Crest Superior Hip Posture (L) Flexed,(R) Flexed Comments Posture Comments Pt's jorge with cues to stand as tall as possible: 5' 0.5 / c 1 heel heel PT-OP-K Range of Motion Start: 10/04/17 14:21 Freq: Status: Active Protocol: Document 05/19/20 16:00 DCW (Rec: 05/19/20 16:41 DCW [id number]) Lumbar Spine Range of Motion Lumbar Spine Active Degrees Testing Position Standing Comments Max extension, pt is forward flexed 5? at her thoracic spine Shoulder Goniometric Range of Motion Shoulder Left Active Shoulder ROM WFL No Testing Position Sitting Flexion 159 Abduction 149 External Rotation at 0 degrees Abduction 58 Right Active Shoulder ROM WFL No Testing Position Sitting Flexion 138 Abduction 126 External Rotation at 0 degrees Abduction 55 PT-OP-M Strength Start: 10/04/17 14:21 Freq: Status: Active Protocol: Document 12/18/18 13:45 DCW (Rec: 12/18/18 14:23 DCW [id number]) Shoulder Strength Shoulder Manual Muscle Testing Right Flexion 4 Good Abduction (C5) 4+ Good+ External Rotation 4+ Good+ Internal Rotation 5 Normal Left Flexion 4 Good Abduction (C5) 4+ Good+ External Rotation 4+ Good+ Internal Rotation 5 Normal PT-OP-Q Treatments Start: 08/06/17 17:30 Freq: Status: Active Protocol: Document 06/09/20 13:45 DCW (Rec: 06/09/20 14:36 DCW [id number]) Cardio Equipment Upper Body Ergometer (UBE) Duration (Minutes) 5 RPM 60 Seat Position 12 Height 2.5 Therapeutic Exercises Supine Exercises 1 Supine Exercise Name Supine on Towel roll at T10-12 Side bilateral Comments increase thoracolumbar extension Sitting Exercises PROM Abduction Sitting Exercise Name Pullies GH Abduction Side bilateral Reps/Minutes x10 PROM Flexion Sitting Exercise Name Pullies GH flexion Side bilateral Reps/Minutes x10 Manual Therapy Treatment Soft Tissue Mobilization 4 Body Location Piriformis Mobilization Type Strumming,Sustained Pressure, Trigger Point Release Intensity/Depth Moderate Body Position Sidelying 3 Body Location Quadratus Lumborum Mobilization Type Myofascial Release,Strumming, Sustained Pressure Intensity/Depth Moderate Body Position Sidelying 2 Body Location Glute Med Mobilization Type Strumming,Sustained Pressure Intensity/Depth Moderate Body Position Sidelying 1 Body Location Lumbar Erector Spinae Mobilization Type Myofascial Release,Sustained Pressure Intensity/Depth Moderate Body Position Sidelying Joint Mobilizations 1 Joint Thoracic Spine Direction P->A Grade II Body Position Sidelying Manual Traction Lumbar Details Hip/Iliac crest depression Body Position Sidelying Comments MWM PT-OP-R Modalities Start: 08/06/17 17:30 Freq: Status: Active Protocol: Document 06/09/20 13:45 DCW (Rec: 06/09/20 14:36 DCW [id number]) Electric Stimulation Electric Stimulation Interferential Current (IFC) Body Location Lumbar Spine Duration (Minutes) 15 Patient Position Sitting Combined With Heat/Cold Hot Pack Comments stool under B feet PT-OP-T Assessment and Plan Start: 08/06/17 17:30 Freq: Status: Active Protocol: Document 06/09/20 13:45 DCW (Rec: 06/09/20 14:36 DCW [id number]) Physical Therapy Assessment Impairments Impairments Activity Tolerance,Balance, Functional Activities, Functional Mobility,Gait,Pain, Posture,ROM,Soft Tissue Mobility,Strength,Tone Goals Seven Impairment Pt displays increased falls risk Short Term Goal (STG) Pt to score a 47/56 on the Yanez Balance Scale to demonstrate a decreased falls risk STG Duration 07/17/20 - current 46/56 Prison Goal (LTG) Pt to score a 18/24 on the DGI - MET New Goal: LTG Duration 08/16/20 - Current Six Impairment Difficulty of getting in the car Fumigator And Sterilizer Goal (LTG) Patient will get in to the car with proper mechanics without difficulty or low back pain LTG Duration Met Five Impairment Difficulty of lifting laundry from floor to shoulder level Prison Goal (LTG) Patient will learn good lifting mechanics to prevent further low back pain. LTG Duration Met Four Impairment Palpable muscle tone Prison Goal (LTG) Pt muscle tone grossly to mild levels of tone 05/19/2049-Cjs-Jtrwyu tone LTG Duration 08/16/20 Three Impairment Thoracic Spine ROM Short Term Goal (STG) Thoracic spine to lacking 10? from neutral at full extension STG Duration Met Fumigator And Sterilizer Goal (LTG) Thoracic spine to neutral at full extension LTG Duration 05/19/20 - currently lacking 5? Two Impairment Pain Fumigator And Sterilizer Goal (LTG) Pt to report decreased pain to a max of 4/10 LTG Duration 08/16/20 One Impairment Activity tolerance Prison Goal (LTG) Pt to tolerate gardening with no increased pain for three hours 05/19/20 - pt tolerating two hours of gardening with increased pain after 30 minutes LTG Duration 08/16/20 Assessment Summary Assessment Pt has slightly increased tone in low back and piriformis today. Physical Therapy Plan Frequency and Duration Frequency of Treatment 1x/Week Duration of Treatment 3 months Plan of Care Start Date 05/19/20 Plan of Care End Date 08/16/20 Therapeutic Interventions Therapeutic Interventions Aquatic Therapy,Home Exercise Program,Joint Mobilizations, Manual Therapy,Neuromuscular Re-education,Self-Care/Home Management,Soft Tissue Mobilization,Therapeutic Exercises Modalities Cold Pack/Ice Massage,Electric Stimulation,Hot Packs Next Visit Focus/Plan Next Note Type Treatment Note Next Visit Plan STM/posture, strengthening
--- NOTE | 2020-06-16 14:27 | PT.OTN ---
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) Pain in thoracic spine (06/16/20) Physical Therapy Treatment Note PT-OP-A Visit Information Start: 08/06/17 17:30 Freq: Status: Active Protocol: Document 06/16/20 13:45 DCW (Rec: 06/16/20 14:27 DCW [id number]) Out-Patient Physical Therapy Visit Information Visit Information Visit Type Treatment Note Visit Start Time 13:45 Visit Stop Time 14:40 Total Visit Minutes 55 Visit Number 127 Number of LEATHER CRAFTSMAN Visits 0 Evaluation Information Evaluation Date 05/28/17 PT-OP-B Current Condition Start: 10/04/17 14:21 Freq: Status: Active Protocol: Document 02/20/19 13:45 DCW (Rec: 02/20/19 14:36 DCW [id number]) Current Condition History of Current Condition History of Current Condition Please see patient's chart in Therapy Source for complete history and initial evaluation ADDENDEM 02/20/19: Pt has a new referral to work on balance and gait. Pt notes she doesn't have any recent falls , but that's because I'm good at grabbing things before I go down. Pt has been using a SPC for assistance, and has recently gotten a FWW, although she has yet to use it . Pt admits that she has not been picking my feet up very well. PT-OP-C Subjective Start: 08/06/17 17:30 Freq: Status: Active Protocol: Document 06/16/20 13:45 DCW (Rec: 06/16/20 14:27 DCW [id number]) OP-PT Subjective Patient Comments Patient Comments Pt reports she has had a very busy day, between having a hair appointment and going to see Dr Kunz, who wants her to get a new MRI and spine x- rays. PT-OP-D Balance Start: 02/20/19 13:46 Freq: Status: Active Protocol: Document 05/19/20 16:00 DCW (Rec: 05/19/20 16:41 DCW [id number]) Balance Tests Yanez Balance Test Yanez Balance Test Score 46/56 Yanez Impairment Rating 1 to 19% Impaired (Score 45-55 ) Yanez Balance Assessment Evaluation Sitting to Standing Ability Independent w/out Hands Unsupported Stance Safely- 2 minutes Sitting Unsupported, Feet on Floor Safely- 2 minutes Standing to Sitting Ability Safely, Minimal Hand Use Transfer Ability Safely, Minimal Hand Use Unsupported Stance- Eyes Closed Safely, 10 seconds Unsupported Stance- Eyes Open Independent, 1 minute Reaching Forward Standing Safely, 5 inches Pick- Up Object From Floor Independent/Safe Look Behind Shoulder - Standing Turns Sideways Only Turning 360 Degrees Turns slowly, but safely Unsupported Stance, Alternating Feet on (I)- 8 Steps in > 20 secs Stair Unsupported Tandem Stance Holds Tandem- 30 seconds Unilateral Leg Stance Lifts Leg/Unable to Hold Total Score Yanez Total Score (out of 56 points) 46 Yanez Impairment Rating 1 to 19% Impaired (Score 45-55 ) PT-OP-E Functional Tests Start: 02/20/19 13:46 Freq: Status: Active Protocol: Document 05/19/20 16:00 DCW (Rec: 05/19/20 16:41 DCW [id number]) Functional Tests 2 Minute Walk Test Distance 257 Device Used SPC Comments 2.14 ft/sec Dynamic Gait Index (DGI) Score 19/24 DGI Impairment Rating 20 to <40% Impaired (Score 15- 19) PT-OP-F Manual Assessment Start: 10/04/17 14:21 Freq: Status: Active Protocol: Document 05/21/19 14:30 DCW (Rec: 05/21/19 15:12 DCW [id number]) Manual Assessments Soft Tissue Assessment Soft Tissue Mobility Assessment Moderate tone in Bilateral thoracic and lumbar paraspinals, piriformis, iliopsoas, and quadratus lumborum. Mild tone in bilateral hamstrings and adductor vinod PT-OP-J Posture/Palpation/Skin Start: 10/04/17 14:21 Freq: Status: Active Protocol: Document 05/19/20 16:00 DCW (Rec: 05/19/20 16:41 DCW [id number]) Posture Evaluation Position Standing Head/C-Spine Posture Forward Head T-Spine Posture Flexible Scoliosis on (L), Increased Kyphosis L-Spine Posture Flexible Scoliosis on (R) Pelvis Posture (L) Iliac Crest Superior Hip Posture (L) Flexed,(R) Flexed Comments Posture Comments Pt's jorge with cues to stand as tall as possible: 5' 0.5 / c 1 heel heel PT-OP-K Range of Motion Start: 10/04/17 14:21 Freq: Status: Active Protocol: Document 05/19/20 16:00 DCW (Rec: 05/19/20 16:41 DCW [id number]) Lumbar Spine Range of Motion Lumbar Spine Active Degrees Testing Position Standing Comments Max extension, pt is forward flexed 5? at her thoracic spine Shoulder Goniometric Range of Motion Shoulder Left Active Shoulder ROM WFL No Testing Position Sitting Flexion 159 Abduction 149 External Rotation at 0 degrees Abduction 58 Right Active Shoulder ROM WFL No Testing Position Sitting Flexion 138 Abduction 126 External Rotation at 0 degrees Abduction 55 PT-OP-M Strength Start: 10/04/17 14:21 Freq: Status: Active Protocol: Document 12/18/18 13:45 DCW (Rec: 12/18/18 14:23 DCW [id number]) Shoulder Strength Shoulder Manual Muscle Testing Right Flexion 4 Good Abduction (C5) 4+ Good+ External Rotation 4+ Good+ Internal Rotation 5 Normal Left Flexion 4 Good Abduction (C5) 4+ Good+ External Rotation 4+ Good+ Internal Rotation 5 Normal PT-OP-Q Treatments Start: 08/06/17 17:30 Freq: Status: Active Protocol: Document 06/16/20 13:45 DCW (Rec: 06/16/20 14:27 DCW [id number]) Cardio Equipment Upper Body Ergometer (UBE) Duration (Minutes) 5 RPM 60 Seat Position 12 Height 2.5 Therapeutic Exercises Standing Exercises Rows Standing Exercise Name Rows Side bilateral Resistance Lv 3 Equipment Used T-band Reps/Minutes 2x10 Comments VC for upright posture and slowing down movemnt Shoulder Extension Standing Exercise Name Extension Side bilateral Resistance Lv 3 Equipment Used T-band Reps/Minutes 2x10 Comments VC for upright posture and arm extension Manual Therapy Treatment Soft Tissue Mobilization 4 Body Location Piriformis Mobilization Type Strumming,Sustained Pressure, Trigger Point Release Intensity/Depth Moderate Body Position Sidelying 3 Body Location Quadratus Lumborum Mobilization Type Myofascial Release,Strumming, Sustained Pressure Intensity/Depth Moderate Body Position Sidelying 2 Body Location Glute Med Mobilization Type Strumming,Sustained Pressure Intensity/Depth Moderate Body Position Sidelying 1 Body Location Lumbar Erector Spinae Mobilization Type Myofascial Release,Sustained Pressure Intensity/Depth Moderate Body Position Sidelying Joint Mobilizations 1 Joint Thoracic Spine Direction P->A Grade II Body Position Sidelying Manual Traction Lumbar Details Hip/Iliac crest depression Body Position Sidelying Comments MWM PT-OP-R Modalities Start: 08/06/17 17:30 Freq: Status: Active Protocol: Document 06/16/20 13:45 DCW (Rec: 06/16/20 14:27 DCW [id number]) Electric Stimulation Electric Stimulation Interferential Current (IFC) Body Location Lumbar Spine Duration (Minutes) 15 Patient Position Sitting Combined With Heat/Cold Hot Pack Comments stool under B feet PT-OP-T Assessment and Plan Start: 08/06/17 17:30 Freq: Status: Active Protocol: Document 06/16/20 13:45 DCW (Rec: 06/16/20 14:27 DCW [id number]) Physical Therapy Assessment Impairments Impairments Activity Tolerance,Balance, Functional Activities, Functional Mobility,Gait,Pain, Posture,ROM,Soft Tissue Mobility,Strength,Tone Goals Seven Impairment Pt displays increased falls risk Short Term Goal (STG) Pt to score a 47/56 on the Yanez Balance Scale to demonstrate a decreased falls risk STG Duration 07/17/20 - current 46/56 Grape Pruner Goal (LTG) Pt to score a 18/24 on the DGI - MET New Goal: LTG Duration 08/16/20 - Current Six Impairment Difficulty of getting in the car Residential Goal (LTG) Patient will get in to the car with proper mechanics without difficulty or low back pain LTG Duration Met Five Impairment Difficulty of lifting laundry from floor to shoulder level Residential Goal (LTG) Patient will learn good lifting mechanics to prevent further low back pain. LTG Duration Met Four Impairment Palpable muscle tone Grape Pruner Goal (LTG) Pt muscle tone grossly to mild levels of tone 05/19/2040-Pft-Wihqxb tone LTG Duration 08/16/20 Three Impairment Thoracic Spine ROM Short Term Goal (STG) Thoracic spine to lacking 10? from neutral at full extension STG Duration Met Residential Goal (LTG) Thoracic spine to neutral at full extension LTG Duration 05/19/20 - currently lacking 5? Two Impairment Pain Grape Pruner Goal (LTG) Pt to report decreased pain to a max of 4/10 LTG Duration 08/16/20 One Impairment Activity tolerance Grape Pruner Goal (LTG) Pt to tolerate gardening with no increased pain for three hours 05/19/20 - pt tolerating two hours of gardening with increased pain after 30 minutes LTG Duration 08/16/20 Assessment Summary Assessment Pt doing well today, reduced tone compared to last week. Tolerated treatment with no complaints. Physical Therapy Plan Frequency and Duration Frequency of Treatment 1x/Week Duration of Treatment 3 months Plan of Care Start Date 05/19/20 Plan of Care End Date 08/16/20 Therapeutic Interventions Therapeutic Interventions Aquatic Therapy,Home Exercise Program,Joint Mobilizations, Manual Therapy,Neuromuscular Re-education,Self-Care/Home Management,Soft Tissue Mobilization,Therapeutic Exercises Modalities Cold Pack/Ice Massage,Electric Stimulation,Hot Packs Next Visit Focus/Plan Next Note Type Treatment Note Next Visit Plan STM/posture, strengthening
--- NOTE | 2020-06-23 14:27 | PT.OTN ---
Current Diagnoses Scoliosis, unspecified (06/23/20) Spondylosis without myelopathy or radiculopathy, cervical region (06/23/20) Pain in thoracic spine (06/23/20) Physical Therapy Treatment Note PT-OP-A Visit Information Start: 08/06/17 17:30 Freq: Status: Active Protocol: Document 06/23/20 13:45 DCW (Rec: 06/23/20 14:27 DCW [id number]) Out-Patient Physical Therapy Visit Information Visit Information Visit Type Treatment Note Visit Start Time 13:45 Visit Stop Time 14:40 Total Visit Minutes 55 Visit Number 128 Number of MORTGAGE PROCESSING MANAGER Visits 0 Evaluation Information Evaluation Date 05/28/17 PT-OP-B Current Condition Start: 10/04/17 14:21 Freq: Status: Active Protocol: Document 02/20/19 13:45 DCW (Rec: 02/20/19 14:36 DCW [id number]) Current Condition History of Current Condition History of Current Condition Please see patient's chart in Therapy Source for complete history and initial evaluation ADDENDEM 02/20/19: Pt has a new referral to work on balance and gait. Pt notes she doesn't have any recent falls , but that's because I'm good at grabbing things before I go down. Pt has been using a SPC for assistance, and has recently gotten a FWW, although she has yet to use it . Pt admits that she has not been picking my feet up very well. PT-OP-C Subjective Start: 08/06/17 17:30 Freq: Status: Active Protocol: Document 06/23/20 13:45 DCW (Rec: 06/23/20 14:27 DCW [id number]) OP-PT Subjective Patient Comments Patient Comments Pt notes she is miserable today after a change in her medication has increased her pain. PT-OP-D Balance Start: 02/20/19 13:46 Freq: Status: Active Protocol: Document 05/19/20 16:00 DCW (Rec: 05/19/20 16:41 DCW [id number]) Balance Tests Yanez Balance Test Yanez Balance Test Score 46/56 Yanez Impairment Rating 1 to 19% Impaired (Score 45-55 ) Yanez Balance Assessment Evaluation Sitting to Standing Ability Independent w/out Hands Unsupported Stance Safely- 2 minutes Sitting Unsupported, Feet on Floor Safely- 2 minutes Standing to Sitting Ability Safely, Minimal Hand Use Transfer Ability Safely, Minimal Hand Use Unsupported Stance- Eyes Closed Safely, 10 seconds Unsupported Stance- Eyes Open Independent, 1 minute Reaching Forward Standing Safely, 5 inches Pick- Up Object From Floor Independent/Safe Look Behind Shoulder - Standing Turns Sideways Only Turning 360 Degrees Turns slowly, but safely Unsupported Stance, Alternating Feet on (I)- 8 Steps in > 20 secs Stair Unsupported Tandem Stance Holds Tandem- 30 seconds Unilateral Leg Stance Lifts Leg/Unable to Hold Total Score Yanez Total Score (out of 56 points) 46 Yanez Impairment Rating 1 to 19% Impaired (Score 45-55 ) PT-OP-E Functional Tests Start: 02/20/19 13:46 Freq: Status: Active Protocol: Document 05/19/20 16:00 DCW (Rec: 05/19/20 16:41 DCW [id number]) Functional Tests 2 Minute Walk Test Distance 257 Device Used SPC Comments 2.14 ft/sec Dynamic Gait Index (DGI) Score 19/24 DGI Impairment Rating 20 to <40% Impaired (Score 15- 19) PT-OP-F Manual Assessment Start: 10/04/17 14:21 Freq: Status: Active Protocol: Document 05/21/19 14:30 DCW (Rec: 05/21/19 15:12 DCW [id number]) Manual Assessments Soft Tissue Assessment Soft Tissue Mobility Assessment Moderate tone in Bilateral thoracic and lumbar paraspinals, piriformis, iliopsoas, and quadratus lumborum. Mild tone in bilateral hamstrings and adductor vinod PT-OP-J Posture/Palpation/Skin Start: 10/04/17 14:21 Freq: Status: Active Protocol: Document 05/19/20 16:00 DCW (Rec: 05/19/20 16:41 DCW [id number]) Posture Evaluation Position Standing Head/C-Spine Posture Forward Head T-Spine Posture Flexible Scoliosis on (L), Increased Kyphosis L-Spine Posture Flexible Scoliosis on (R) Pelvis Posture (L) Iliac Crest Superior Hip Posture (L) Flexed,(R) Flexed Comments Posture Comments Pt's jorge with cues to stand as tall as possible: 5' 0.5 / c 1 heel heel PT-OP-K Range of Motion Start: 10/04/17 14:21 Freq: Status: Active Protocol: Document 05/19/20 16:00 DCW (Rec: 05/19/20 16:41 DCW [id number]) Lumbar Spine Range of Motion Lumbar Spine Active Degrees Testing Position Standing Comments Max extension, pt is forward flexed 5? at her thoracic spine Shoulder Goniometric Range of Motion Shoulder Left Active Shoulder ROM WFL No Testing Position Sitting Flexion 159 Abduction 149 External Rotation at 0 degrees Abduction 58 Right Active Shoulder ROM WFL No Testing Position Sitting Flexion 138 Abduction 126 External Rotation at 0 degrees Abduction 55 PT-OP-M Strength Start: 10/04/17 14:21 Freq: Status: Active Protocol: Document 12/18/18 13:45 DCW (Rec: 12/18/18 14:23 DCW [id number]) Shoulder Strength Shoulder Manual Muscle Testing Right Flexion 4 Good Abduction (C5) 4+ Good+ External Rotation 4+ Good+ Internal Rotation 5 Normal Left Flexion 4 Good Abduction (C5) 4+ Good+ External Rotation 4+ Good+ Internal Rotation 5 Normal PT-OP-Q Treatments Start: 08/06/17 17:30 Freq: Status: Active Protocol: Document 06/23/20 13:45 DCW (Rec: 06/23/20 14:27 DCW [id number]) Cardio Equipment Upper Body Ergometer (UBE) Duration (Minutes) 5 RPM 60 Seat Position 12 Height 2.5 Therapeutic Exercises Sitting Exercises PROM Abduction Sitting Exercise Name Pullies GH Abduction Side bilateral Reps/Minutes x10 PROM Flexion Sitting Exercise Name Pullies GH flexion Side bilateral Reps/Minutes x10 Standing Exercises Rows Standing Exercise Name Rows Side bilateral Resistance Lv 3 Equipment Used T-band Reps/Minutes 2x10 Comments VC for upright posture and slowing down movemnt Shoulder Extension Standing Exercise Name Extension Side bilateral Resistance Lv 3 Equipment Used T-band Reps/Minutes 2x10 Comments VC for upright posture and arm extension Manual Therapy Treatment Soft Tissue Mobilization 4 Body Location Piriformis Mobilization Type Strumming,Sustained Pressure, Trigger Point Release Intensity/Depth Moderate Body Position Sidelying 3 Body Location Quadratus Lumborum Mobilization Type Myofascial Release,Strumming, Sustained Pressure Intensity/Depth Moderate Body Position Sidelying 2 Body Location Glute Med Mobilization Type Strumming,Sustained Pressure Intensity/Depth Moderate Body Position Sidelying 1 Body Location Lumbar Erector Spinae Mobilization Type Myofascial Release,Sustained Pressure Intensity/Depth Moderate Body Position Sidelying Joint Mobilizations 1 Joint Thoracic Spine Direction P->A Grade II Body Position Sidelying Manual Traction Lumbar Details Hip/Iliac crest depression Body Position Sidelying Comments MWM PT-OP-R Modalities Start: 08/06/17 17:30 Freq: Status: Active Protocol: Document 06/23/20 13:45 DCW (Rec: 06/23/20 14:27 DCW [id number]) Electric Stimulation Electric Stimulation Interferential Current (IFC) Body Location Lumbar Spine Duration (Minutes) 15 Patient Position Sitting Combined With Heat/Cold Hot Pack Comments stool under B feet PT-OP-T Assessment and Plan Start: 08/06/17 17:30 Freq: Status: Active Protocol: Document 06/23/20 13:45 DCW (Rec: 06/23/20 14:27 DCW [id number]) Physical Therapy Assessment Impairments Impairments Activity Tolerance,Balance, Functional Activities, Functional Mobility,Gait,Pain, Posture,ROM,Soft Tissue Mobility,Strength,Tone Goals Seven Impairment Pt displays increased falls risk Short Term Goal (STG) Pt to score a 47/56 on the Yanez Balance Scale to demonstrate a decreased falls risk STG Duration 07/17/20 - current 46/56 Rail Operations Controller Goal (LTG) Pt to score a 18/24 on the DGI - MET New Goal: LTG Duration 08/16/20 - Current Six Impairment Difficulty of getting in the car Rail Operations Controller Goal (LTG) Patient will get in to the car with proper mechanics without difficulty or low back pain LTG Duration Met Five Impairment Difficulty of lifting laundry from floor to shoulder level Rail Operations Controller Goal (LTG) Patient will learn good lifting mechanics to prevent further low back pain. LTG Duration Met Four Impairment Palpable muscle tone [facility] Goal (LTG) Pt muscle tone grossly to mild levels of tone 05/19/2056-Twg-Hqjjzy tone LTG Duration 08/16/20 Three Impairment Thoracic Spine ROM Short Term Goal (STG) Thoracic spine to lacking 10? from neutral at full extension STG Duration Met Rail Operations Controller Goal (LTG) Thoracic spine to neutral at full extension LTG Duration 05/19/20 - currently lacking 5? Two Impairment Pain [facility] Goal (LTG) Pt to report decreased pain to a max of 4/10 LTG Duration 08/16/20 One Impairment Activity tolerance [facility] Goal (LTG) Pt to tolerate gardening with no increased pain for three hours 05/19/20 - pt tolerating two hours of gardening with increased pain after 30 minutes LTG Duration 08/16/20 Assessment Summary Assessment Pt displays some increased paraspinal tone today, but tolerated treatment well, appears to be performing bed mobility on plinth with more ease. Physical Therapy Plan Frequency and Duration Frequency of Treatment 1x/Week Duration of Treatment 3 months Plan of Care Start Date 05/19/20 Plan of Care End Date 08/16/20 Therapeutic Interventions Therapeutic Interventions Aquatic Therapy,Home Exercise Program,Joint Mobilizations, Manual Therapy,Neuromuscular Re-education,Self-Care/Home Management,Soft Tissue Mobilization,Therapeutic Exercises Modalities Cold Pack/Ice Massage,Electric Stimulation,Hot Packs Next Visit Focus/Plan Next Note Type Treatment Note Next Visit Plan STM/posture, strengthening
--- NOTE | 2020-06-30 14:24 | PT.OTN ---
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) Pain in thoracic spine (06/30/20) Physical Therapy Treatment Note PT-OP-A Visit Information Start: 08/06/17 17:30 Freq: Status: Active Protocol: Document 06/30/20 13:45 DCW (Rec: 06/30/20 14:24 DCW [id number]) Out-Patient Physical Therapy Visit Information Visit Information Visit Type Treatment Note Visit Start Time 13:45 Visit Stop Time 14:40 Total Visit Minutes 55 Visit Number 129 Number of CASINO CONTROLLER Visits 0 Evaluation Information Evaluation Date 05/28/17 PT-OP-B Current Condition Start: 10/04/17 14:21 Freq: Status: Active Protocol: Document 02/20/19 13:45 DCW (Rec: 02/20/19 14:36 DCW [id number]) Current Condition History of Current Condition History of Current Condition Please see patient's chart in Therapy Source for complete history and initial evaluation ADDENDEM 02/20/19: Pt has a new referral to work on balance and gait. Pt notes she doesn't have any recent falls , but that's because I'm good at grabbing things before I go down. Pt has been using a SPC for assistance, and has recently gotten a FWW, although she has yet to use it . Pt admits that she has not been picking my feet up very well. PT-OP-C Subjective Start: 08/06/17 17:30 Freq: Status: Active Protocol: Document 06/30/20 13:45 DCW (Rec: 06/30/20 14:24 DCW [id number]) OP-PT Subjective Patient Comments Patient Comments Notes she is fair today. Notes she had a significant increase in pain following her MRI yesterday. PT-OP-D Balance Start: 02/20/19 13:46 Freq: Status: Active Protocol: Document 05/19/20 16:00 DCW (Rec: 05/19/20 16:41 DCW [id number]) Balance Tests Yanez Balance Test Yanez Balance Test Score 46/56 Yanez Impairment Rating 1 to 19% Impaired (Score 45-55 ) Yanez Balance Assessment Evaluation Sitting to Standing Ability Independent w/out Hands Unsupported Stance Safely- 2 minutes Sitting Unsupported, Feet on Floor Safely- 2 minutes Standing to Sitting Ability Safely, Minimal Hand Use Transfer Ability Safely, Minimal Hand Use Unsupported Stance- Eyes Closed Safely, 10 seconds Unsupported Stance- Eyes Open Independent, 1 minute Reaching Forward Standing Safely, 5 inches Pick- Up Object From Floor Independent/Safe Look Behind Shoulder - Standing Turns Sideways Only Turning 360 Degrees Turns slowly, but safely Unsupported Stance, Alternating Feet on (I)- 8 Steps in > 20 secs Stair Unsupported Tandem Stance Holds Tandem- 30 seconds Unilateral Leg Stance Lifts Leg/Unable to Hold Total Score Yanez Total Score (out of 56 points) 46 Yanez Impairment Rating 1 to 19% Impaired (Score 45-55 ) PT-OP-E Functional Tests Start: 02/20/19 13:46 Freq: Status: Active Protocol: Document 05/19/20 16:00 DCW (Rec: 05/19/20 16:41 DCW [id number]) Functional Tests 2 Minute Walk Test Distance 257 Device Used SPC Comments 2.14 ft/sec Dynamic Gait Index (DGI) Score 19/24 DGI Impairment Rating 20 to <40% Impaired (Score 15- 19) PT-OP-F Manual Assessment Start: 10/04/17 14:21 Freq: Status: Active Protocol: Document 05/21/19 14:30 DCW (Rec: 05/21/19 15:12 DCW [id number]) Manual Assessments Soft Tissue Assessment Soft Tissue Mobility Assessment Moderate tone in Bilateral thoracic and lumbar paraspinals, piriformis, iliopsoas, and quadratus lumborum. Mild tone in bilateral hamstrings and adductor vinod PT-OP-J Posture/Palpation/Skin Start: 10/04/17 14:21 Freq: Status: Active Protocol: Document 05/19/20 16:00 DCW (Rec: 05/19/20 16:41 DCW [id number]) Posture Evaluation Position Standing Head/C-Spine Posture Forward Head T-Spine Posture Flexible Scoliosis on (L), Increased Kyphosis L-Spine Posture Flexible Scoliosis on (R) Pelvis Posture (L) Iliac Crest Superior Hip Posture (L) Flexed,(R) Flexed Comments Posture Comments Pt's jorge with cues to stand as tall as possible: 5' 0.5 / c 1 heel heel PT-OP-K Range of Motion Start: 10/04/17 14:21 Freq: Status: Active Protocol: Document 05/19/20 16:00 DCW (Rec: 05/19/20 16:41 DCW [id number]) Lumbar Spine Range of Motion Lumbar Spine Active Degrees Testing Position Standing Comments Max extension, pt is forward flexed 5? at her thoracic spine Shoulder Goniometric Range of Motion Shoulder Left Active Shoulder ROM WFL No Testing Position Sitting Flexion 159 Abduction 149 External Rotation at 0 degrees Abduction 58 Right Active Shoulder ROM WFL No Testing Position Sitting Flexion 138 Abduction 126 External Rotation at 0 degrees Abduction 55 PT-OP-M Strength Start: 10/04/17 14:21 Freq: Status: Active Protocol: Document 12/18/18 13:45 DCW (Rec: 12/18/18 14:23 DCW [id number]) Shoulder Strength Shoulder Manual Muscle Testing Right Flexion 4 Good Abduction (C5) 4+ Good+ External Rotation 4+ Good+ Internal Rotation 5 Normal Left Flexion 4 Good Abduction (C5) 4+ Good+ External Rotation 4+ Good+ Internal Rotation 5 Normal PT-OP-Q Treatments Start: 08/06/17 17:30 Freq: Status: Active Protocol: Document 06/30/20 13:45 DCW (Rec: 06/30/20 14:24 DCW [id number]) Cardio Equipment Upper Body Ergometer (UBE) Duration (Minutes) 5 RPM 60 Seat Position 12 Height 2.5 Therapeutic Exercises Sitting Exercises PROM Abduction Sitting Exercise Name Pullies GH Abduction Side bilateral Reps/Minutes x10 PROM Flexion Sitting Exercise Name Pullies GH flexion Side bilateral Reps/Minutes x10 Manual Therapy Treatment Soft Tissue Mobilization 4 Body Location Piriformis Mobilization Type Strumming,Sustained Pressure, Trigger Point Release Intensity/Depth Moderate Body Position Sidelying 3 Body Location Quadratus Lumborum Mobilization Type Myofascial Release,Strumming, Sustained Pressure Intensity/Depth Moderate Body Position Sidelying 2 Body Location Glute Med Mobilization Type Strumming,Sustained Pressure Intensity/Depth Moderate Body Position Sidelying 1 Body Location Lumbar Erector Spinae Mobilization Type Myofascial Release,Sustained Pressure Intensity/Depth Moderate Body Position Sidelying Joint Mobilizations 1 Joint Thoracic Spine Direction P->A Grade II Body Position Sidelying Manual Traction Lumbar Details Hip/Iliac crest depression Body Position Sidelying Comments MWM PT-OP-R Modalities Start: 08/06/17 17:30 Freq: Status: Active Protocol: Document 06/30/20 13:45 DCW (Rec: 06/30/20 14:24 DCW [id number]) Electric Stimulation Electric Stimulation Interferential Current (IFC) Body Location Lumbar Spine Duration (Minutes) 15 Patient Position Sitting Combined With Heat/Cold Hot Pack Comments stool under B feet PT-OP-T Assessment and Plan Start: 08/06/17 17:30 Freq: Status: Active Protocol: Document 06/30/20 13:45 DCW (Rec: 06/30/20 14:24 DCW [id number]) Physical Therapy Assessment Impairments Impairments Activity Tolerance,Balance, Functional Activities, Functional Mobility,Gait,Pain, Posture,ROM,Soft Tissue Mobility,Strength,Tone Goals Seven Impairment Pt displays increased falls risk Short Term Goal (STG) Pt to score a 47/56 on the Yanez Balance Scale to demonstrate a decreased falls risk STG Duration 07/17/20 - current 46/56 Fci Goal (LTG) Pt to score a 18/24 on the DGI - MET New Goal: LTG Duration 08/16/20 - Current Six Impairment Difficulty of getting in the car Fci Goal (LTG) Patient will get in to the car with proper mechanics without difficulty or low back pain LTG Duration Met Five Impairment Difficulty of lifting laundry from floor to shoulder level Center Machine Set Up Operator Goal (LTG) Patient will learn good lifting mechanics to prevent further low back pain. LTG Duration Met Four Impairment Palpable muscle tone Center Machine Set Up Operator Goal (LTG) Pt muscle tone grossly to mild levels of tone 05/19/2069-Spj-Nlafry tone LTG Duration 08/16/20 Three Impairment Thoracic Spine ROM Short Term Goal (STG) Thoracic spine to lacking 10? from neutral at full extension STG Duration Met Center Machine Set Up Operator Goal (LTG) Thoracic spine to neutral at full extension LTG Duration 05/19/20 - currently lacking 5? Two Impairment Pain Center Machine Set Up Operator Goal (LTG) Pt to report decreased pain to a max of 4/10 LTG Duration 08/16/20 One Impairment Activity tolerance Center Machine Set Up Operator Goal (LTG) Pt to tolerate gardening with no increased pain for three hours 05/19/20 - pt tolerating two hours of gardening with increased pain after 30 minutes LTG Duration 08/16/20 Assessment Summary Assessment Pt actually doing well today despite her complaints of significant pain yesterday after her MRI. Physical Therapy Plan Frequency and Duration Frequency of Treatment 1x/Week Duration of Treatment 3 months Plan of Care Start Date 05/19/20 Plan of Care End Date 08/16/20 Therapeutic Interventions Therapeutic Interventions Aquatic Therapy,Home Exercise Program,Joint Mobilizations, Manual Therapy,Neuromuscular Re-education,Self-Care/Home Management,Soft Tissue Mobilization,Therapeutic Exercises Modalities Cold Pack/Ice Massage,Electric Stimulation,Hot Packs Next Visit Focus/Plan Next Note Type Treatment Note Next Visit Plan STM/posture, strengthening
--- NOTE | 2020-07-07 11:15 | PT.OTN ---
Current Diagnoses Scoliosis, unspecified (07/07/20) Spondylosis without myelopathy or radiculopathy, cervical region (07/07/20) Pain in thoracic spine (07/07/20) Physical Therapy Treatment Note PT-OP-A Visit Information Start: 08/06/17 17:30 Freq: Status: Active Protocol: Document 07/07/20 10:35 DCW (Rec: 07/07/20 11:15 DCW [id number]) Out-Patient Physical Therapy Visit Information Visit Information Visit Type Treatment Note Visit Start Time 10:35 Visit Stop Time 11:25 Total Visit Minutes 50 Visit Number 130 Number of CHEESE MAKER Visits 0 Evaluation Information Evaluation Date 05/28/17 PT-OP-B Current Condition Start: 10/04/17 14:21 Freq: Status: Active Protocol: Document 02/20/19 13:45 DCW (Rec: 02/20/19 14:36 DCW [id number]) Current Condition History of Current Condition History of Current Condition Please see patient's chart in Therapy Source for complete history and initial evaluation ADDENDEM 02/20/19: Pt has a new referral to work on balance and gait. Pt notes she doesn't have any recent falls , but that's because I'm good at grabbing things before I go down. Pt has been using a SPC for assistance, and has recently gotten a FWW, although she has yet to use it . Pt admits that she has not been picking my feet up very well. PT-OP-C Subjective Start: 08/06/17 17:30 Freq: Status: Active Protocol: Document 07/07/20 10:35 DCW (Rec: 07/07/20 11:15 DCW [id number]) OP-PT Subjective Patient Comments Patient Comments I'm not doing well today. I'm sore, I can barely stand up straight, and my is in rough shape this morning. PT-OP-D Balance Start: 02/20/19 13:46 Freq: Status: Active Protocol: Document 05/19/20 16:00 DCW (Rec: 05/19/20 16:41 DCW [id number]) Balance Tests Yanez Balance Test Yanez Balance Test Score 46/56 Yanez Impairment Rating 1 to 19% Impaired (Score 45-55 ) Yanez Balance Assessment Evaluation Sitting to Standing Ability Independent w/out Hands Unsupported Stance Safely- 2 minutes Sitting Unsupported, Feet on Floor Safely- 2 minutes Standing to Sitting Ability Safely, Minimal Hand Use Transfer Ability Safely, Minimal Hand Use Unsupported Stance- Eyes Closed Safely, 10 seconds Unsupported Stance- Eyes Open Independent, 1 minute Reaching Forward Standing Safely, 5 inches Pick- Up Object From Floor Independent/Safe Look Behind Shoulder - Standing Turns Sideways Only Turning 360 Degrees Turns slowly, but safely Unsupported Stance, Alternating Feet on (I)- 8 Steps in > 20 secs Stair Unsupported Tandem Stance Holds Tandem- 30 seconds Unilateral Leg Stance Lifts Leg/Unable to Hold Total Score Yanez Total Score (out of 56 points) 46 Yanez Impairment Rating 1 to 19% Impaired (Score 45-55 ) PT-OP-E Functional Tests Start: 02/20/19 13:46 Freq: Status: Active Protocol: Document 05/19/20 16:00 DCW (Rec: 05/19/20 16:41 DCW [id number]) Functional Tests 2 Minute Walk Test Distance 257 Device Used SPC Comments 2.14 ft/sec Dynamic Gait Index (DGI) Score 19/24 DGI Impairment Rating 20 to <40% Impaired (Score 15- 19) PT-OP-F Manual Assessment Start: 10/04/17 14:21 Freq: Status: Active Protocol: Document 05/21/19 14:30 DCW (Rec: 05/21/19 15:12 DCW [id number]) Manual Assessments Soft Tissue Assessment Soft Tissue Mobility Assessment Moderate tone in Bilateral thoracic and lumbar paraspinals, piriformis, iliopsoas, and quadratus lumborum. Mild tone in bilateral hamstrings and adductor vinod PT-OP-J Posture/Palpation/Skin Start: 10/04/17 14:21 Freq: Status: Active Protocol: Document 05/19/20 16:00 DCW (Rec: 05/19/20 16:41 DCW [id number]) Posture Evaluation Position Standing Head/C-Spine Posture Forward Head T-Spine Posture Flexible Scoliosis on (L), Increased Kyphosis L-Spine Posture Flexible Scoliosis on (R) Pelvis Posture (L) Iliac Crest Superior Hip Posture (L) Flexed,(R) Flexed Comments Posture Comments Pt's jorge with cues to stand as tall as possible: 5' 0.5 / c 1 heel heel PT-OP-K Range of Motion Start: 10/04/17 14:21 Freq: Status: Active Protocol: Document 05/19/20 16:00 DCW (Rec: 05/19/20 16:41 DCW [id number]) Lumbar Spine Range of Motion Lumbar Spine Active Degrees Testing Position Standing Comments Max extension, pt is forward flexed 5? at her thoracic spine Shoulder Goniometric Range of Motion Shoulder Left Active Shoulder ROM WFL No Testing Position Sitting Flexion 159 Abduction 149 External Rotation at 0 degrees Abduction 58 Right Active Shoulder ROM WFL No Testing Position Sitting Flexion 138 Abduction 126 External Rotation at 0 degrees Abduction 55 PT-OP-M Strength Start: 10/04/17 14:21 Freq: Status: Active Protocol: Document 12/18/18 13:45 DCW (Rec: 12/18/18 14:23 DCW [id number]) Shoulder Strength Shoulder Manual Muscle Testing Right Flexion 4 Good Abduction (C5) 4+ Good+ External Rotation 4+ Good+ Internal Rotation 5 Normal Left Flexion 4 Good Abduction (C5) 4+ Good+ External Rotation 4+ Good+ Internal Rotation 5 Normal PT-OP-Q Treatments Start: 08/06/17 17:30 Freq: Status: Active Protocol: Document 07/07/20 10:35 DCW (Rec: 07/07/20 11:15 DCW [id number]) Cardio Equipment Upper Body Ergometer (UBE) Duration (Minutes) 5 RPM 60 Seat Position 12 Height 2.5 Therapeutic Exercises Supine Exercises 1 Supine Exercise Name Supine on Towel roll at T10-12 Side bilateral Comments increase thoracolumbar extension Sitting Exercises PROM Abduction Sitting Exercise Name Pullies GH Abduction Side bilateral Reps/Minutes x10 PROM Flexion Sitting Exercise Name Pullies GH flexion Side bilateral Reps/Minutes x10 Standing Exercises Shoulder Extension Standing Exercise Name Extension Side bilateral Resistance Lv 3 Equipment Used T-band Reps/Minutes 2x10 Comments VC for upright posture and arm extension Manual Therapy Treatment Soft Tissue Mobilization 4 Body Location Piriformis Mobilization Type Strumming,Sustained Pressure, Trigger Point Release Intensity/Depth Moderate Body Position Sidelying 3 Body Location Quadratus Lumborum Mobilization Type Myofascial Release,Strumming, Sustained Pressure Intensity/Depth Moderate Body Position Sidelying 2 Body Location Glute Med Mobilization Type Strumming,Sustained Pressure Intensity/Depth Moderate Body Position Sidelying 1 Body Location Lumbar Erector Spinae Mobilization Type Myofascial Release,Sustained Pressure Intensity/Depth Moderate Body Position Sidelying Joint Mobilizations 1 Joint Thoracic Spine Direction P->A Grade II Body Position Sidelying Manual Traction Lumbar Details Hip/Iliac crest depression Body Position Sidelying Comments MWM PT-OP-R Modalities Start: 08/06/17 17:30 Freq: Status: Active Protocol: Document 07/07/20 10:35 DCW (Rec: 07/07/20 11:15 DCW [id number]) Electric Stimulation Electric Stimulation Interferential Current (IFC) Body Location Lumbar Spine Duration (Minutes) 15 Patient Position Sitting Combined With Heat/Cold Hot Pack Comments stool under B feet PT-OP-T Assessment and Plan Start: 08/06/17 17:30 Freq: Status: Active Protocol: Document 07/07/20 10:35 DCW (Rec: 07/07/20 11:15 DCW [id number]) Physical Therapy Assessment Impairments Impairments Activity Tolerance,Balance, Functional Activities, Functional Mobility,Gait,Pain, Posture,ROM,Soft Tissue Mobility,Strength,Tone Goals Seven Impairment Pt displays increased falls risk Short Term Goal (STG) Pt to score a 47/56 on the Yanez Balance Scale to demonstrate a decreased falls risk STG Duration 07/17/20 - current 46/56 Fpc Goal (LTG) Pt to score a 18/24 on the DGI - MET New Goal: LTG Duration 08/16/20 - Current Six Impairment Difficulty of getting in the car Meat Supervisor Goal (LTG) Patient will get in to the car with proper mechanics without difficulty or low back pain LTG Duration Met Five Impairment Difficulty of lifting laundry from floor to shoulder level Meat Supervisor Goal (LTG) Patient will learn good lifting mechanics to prevent further low back pain. LTG Duration Met Four Impairment Palpable muscle tone Meat Supervisor Goal (LTG) Pt muscle tone grossly to mild levels of tone 05/19/2098-Upz-Vvfrnx tone LTG Duration 08/16/20 Three Impairment Thoracic Spine ROM Short Term Goal (STG) Thoracic spine to lacking 10? from neutral at full extension STG Duration Met Meat Supervisor Goal (LTG) Thoracic spine to neutral at full extension LTG Duration 05/19/20 - currently lacking 5? Two Impairment Pain Meat Supervisor Goal (LTG) Pt to report decreased pain to a max of 4/10 LTG Duration 08/16/20 One Impairment Activity tolerance Meat Supervisor Goal (LTG) Pt to tolerate gardening with no increased pain for three hours 05/19/20 - pt tolerating two hours of gardening with increased pain after 30 minutes LTG Duration 08/16/20 Assessment Summary Assessment Pt struggled more today with her standing exercises, had to sit and rest after shoulder extension, had some tremor in her legs, notes she was fatigued. Physical Therapy Plan Frequency and Duration Frequency of Treatment 1x/Week Duration of Treatment 3 months Plan of Care Start Date 05/19/20 Plan of Care End Date 08/16/20 Therapeutic Interventions Therapeutic Interventions Aquatic Therapy,Home Exercise Program,Joint Mobilizations, Manual Therapy,Neuromuscular Re-education,Self-Care/Home Management,Soft Tissue Mobilization,Therapeutic Exercises Modalities Cold Pack/Ice Massage,Electric Stimulation,Hot Packs Next Visit Focus/Plan Next Note Type Treatment Note Next Visit Plan STM/posture, strengthening
--- NOTE | 2020-07-21 14:31 | PT.OTN ---
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) Pain in thoracic spine (07/21/20) Physical Therapy Treatment Note PT-OP-A Visit Information Start: 08/06/17 17:30 Freq: Status: Active Protocol: Document 07/21/20 13:45 DCW (Rec: 07/21/20 14:30 DCW [id number]) Out-Patient Physical Therapy Visit Information Visit Information Visit Type Treatment Note Visit Start Time 13:45 Visit Stop Time 14:40 Total Visit Minutes 55 Visit Number 131 Number of ERP MANAGER Visits 0 Evaluation Information Evaluation Date 05/28/17 PT-OP-B Current Condition Start: 10/04/17 14:21 Freq: Status: Active Protocol: Document 02/20/19 13:45 DCW (Rec: 02/20/19 14:36 DCW [id number]) Current Condition History of Current Condition History of Current Condition Please see patient's chart in Therapy Source for complete history and initial evaluation ADDENDEM 02/20/19: Pt has a new referral to work on balance and gait. Pt notes she doesn't have any recent falls , but that's because I'm good at grabbing things before I go down. Pt has been using a SPC for assistance, and has recently gotten a FWW, although she has yet to use it . Pt admits that she has not been picking my feet up very well. PT-OP-C Subjective Start: 08/06/17 17:30 Freq: Status: Active Protocol: Document 07/21/20 13:45 DCW (Rec: 07/21/20 14:30 DCW [id number]) OP-PT Subjective Patient Comments Patient Comments I've had a miserable couple of weeks. Mainly due to her 's medical problems, however pt does admit that she is doing too much work outside, which flares up her back PT-OP-D Balance Start: 02/20/19 13:46 Freq: Status: Active Protocol: Document 05/19/20 16:00 DCW (Rec: 05/19/20 16:41 DCW [id number]) Balance Tests Yanez Balance Test Yanez Balance Test Score 46/56 Yanez Impairment Rating 1 to 19% Impaired (Score 45-55 ) Yanez Balance Assessment Evaluation Sitting to Standing Ability Independent w/out Hands Unsupported Stance Safely- 2 minutes Sitting Unsupported, Feet on Floor Safely- 2 minutes Standing to Sitting Ability Safely, Minimal Hand Use Transfer Ability Safely, Minimal Hand Use Unsupported Stance- Eyes Closed Safely, 10 seconds Unsupported Stance- Eyes Open Independent, 1 minute Reaching Forward Standing Safely, 5 inches Pick- Up Object From Floor Independent/Safe Look Behind Shoulder - Standing Turns Sideways Only Turning 360 Degrees Turns slowly, but safely Unsupported Stance, Alternating Feet on (I)- 8 Steps in > 20 secs Stair Unsupported Tandem Stance Holds Tandem- 30 seconds Unilateral Leg Stance Lifts Leg/Unable to Hold Total Score Yanez Total Score (out of 56 points) 46 Yanez Impairment Rating 1 to 19% Impaired (Score 45-55 ) PT-OP-E Functional Tests Start: 02/20/19 13:46 Freq: Status: Active Protocol: Document 05/19/20 16:00 DCW (Rec: 05/19/20 16:41 DCW [id number]) Functional Tests 2 Minute Walk Test Distance 257 Device Used SPC Comments 2.14 ft/sec Dynamic Gait Index (DGI) Score 19/24 DGI Impairment Rating 20 to <40% Impaired (Score 15- 19) PT-OP-F Manual Assessment Start: 10/04/17 14:21 Freq: Status: Active Protocol: Document 05/21/19 14:30 DCW (Rec: 05/21/19 15:12 DCW [id number]) Manual Assessments Soft Tissue Assessment Soft Tissue Mobility Assessment Moderate tone in Bilateral thoracic and lumbar paraspinals, piriformis, iliopsoas, and quadratus lumborum. Mild tone in bilateral hamstrings and adductor vinod PT-OP-J Posture/Palpation/Skin Start: 10/04/17 14:21 Freq: Status: Active Protocol: Document 05/19/20 16:00 DCW (Rec: 05/19/20 16:41 DCW [id number]) Posture Evaluation Position Standing Head/C-Spine Posture Forward Head T-Spine Posture Flexible Scoliosis on (L), Increased Kyphosis L-Spine Posture Flexible Scoliosis on (R) Pelvis Posture (L) Iliac Crest Superior Hip Posture (L) Flexed,(R) Flexed Comments Posture Comments Pt's jorge with cues to stand as tall as possible: 5' 0.5 / c 1 heel heel PT-OP-K Range of Motion Start: 10/04/17 14:21 Freq: Status: Active Protocol: Document 05/19/20 16:00 DCW (Rec: 05/19/20 16:41 DCW [id number]) Lumbar Spine Range of Motion Lumbar Spine Active Degrees Testing Position Standing Comments Max extension, pt is forward flexed 5? at her thoracic spine Shoulder Goniometric Range of Motion Shoulder Left Active Shoulder ROM WFL No Testing Position Sitting Flexion 159 Abduction 149 External Rotation at 0 degrees Abduction 58 Right Active Shoulder ROM WFL No Testing Position Sitting Flexion 138 Abduction 126 External Rotation at 0 degrees Abduction 55 PT-OP-M Strength Start: 10/04/17 14:21 Freq: Status: Active Protocol: Document 12/18/18 13:45 DCW (Rec: 12/18/18 14:23 DCW [id number]) Shoulder Strength Shoulder Manual Muscle Testing Right Flexion 4 Good Abduction (C5) 4+ Good+ External Rotation 4+ Good+ Internal Rotation 5 Normal Left Flexion 4 Good Abduction (C5) 4+ Good+ External Rotation 4+ Good+ Internal Rotation 5 Normal PT-OP-Q Treatments Start: 08/06/17 17:30 Freq: Status: Active Protocol: Document 07/21/20 13:45 DCW (Rec: 07/21/20 14:30 DCW [id number]) Cardio Equipment Upper Body Ergometer (UBE) Duration (Minutes) 5 RPM 60 Seat Position 12 Height 2.5 Therapeutic Exercises Standing Exercises Rows Standing Exercise Name Rows Side bilateral Resistance Lv 2 Equipment Used T-band Reps/Minutes 2x10 Comments VC for upright posture and slowing down movemnt Shoulder Extension Standing Exercise Name Extension Side bilateral Resistance Lv 2 Equipment Used T-band Reps/Minutes 2x10 Comments VC for upright posture and arm extension Manual Therapy Treatment Soft Tissue Mobilization 4 Body Location Piriformis Mobilization Type Strumming,Sustained Pressure, Trigger Point Release Intensity/Depth Moderate Body Position Sidelying 3 Body Location Quadratus Lumborum Mobilization Type Myofascial Release,Strumming, Sustained Pressure Intensity/Depth Moderate Body Position Sidelying 2 Body Location Glute Med Mobilization Type Strumming,Sustained Pressure Intensity/Depth Moderate Body Position Sidelying 1 Body Location Lumbar Erector Spinae Mobilization Type Myofascial Release,Sustained Pressure Intensity/Depth Moderate Body Position Sidelying Joint Mobilizations 1 Joint Thoracic Spine Direction P->A Grade II Body Position Sidelying Manual Traction Lumbar Details Hip/Iliac crest depression Body Position Sidelying Comments MWM PT-OP-R Modalities Start: 08/06/17 17:30 Freq: Status: Active Protocol: Document 07/21/20 13:45 DCW (Rec: 07/21/20 14:30 DCW [id number]) Electric Stimulation Electric Stimulation Interferential Current (IFC) Body Location Lumbar Spine Duration (Minutes) 15 Patient Position Sitting Combined With Heat/Cold Hot Pack Comments stool under B feet PT-OP-T Assessment and Plan Start: 08/06/17 17:30 Freq: Status: Active Protocol: Document 07/21/20 13:45 DCW (Rec: 07/21/20 14:30 DCW [id number]) Physical Therapy Assessment Impairments Impairments Activity Tolerance,Balance, Functional Activities, Functional Mobility,Gait,Pain, Posture,ROM,Soft Tissue Mobility,Strength,Tone Goals Seven Impairment Pt displays increased falls risk Short Term Goal (STG) Pt to score a 47/56 on the Yanez Balance Scale to demonstrate a decreased falls risk STG Duration 07/17/20 - current 46/56 Employee Communications Specialist Goal (LTG) Pt to score a 18/24 on the DGI - MET New Goal: LTG Duration 08/16/20 - Current Six Impairment Difficulty of getting in the car Fdc Goal (LTG) Patient will get in to the car with proper mechanics without difficulty or low back pain LTG Duration Met Five Impairment Difficulty of lifting laundry from floor to shoulder level Fdc Goal (LTG) Patient will learn good lifting mechanics to prevent further low back pain. LTG Duration Met Four Impairment Palpable muscle tone Employee Communications Specialist Goal (LTG) Pt muscle tone grossly to mild levels of tone 05/19/2034-Cho-Pgznvb tone LTG Duration 08/16/20 Three Impairment Thoracic Spine ROM Short Term Goal (STG) Thoracic spine to lacking 10? from neutral at full extension STG Duration Met Fdc Goal (LTG) Thoracic spine to neutral at full extension LTG Duration 05/19/20 - currently lacking 5? Two Impairment Pain Fdc Goal (LTG) Pt to report decreased pain to a max of 4/10 LTG Duration 08/16/20 One Impairment Activity tolerance Fdc Goal (LTG) Pt to tolerate gardening with no increased pain for three hours 05/19/20 - pt tolerating two hours of gardening with increased pain after 30 minutes LTG Duration 08/16/20 Assessment Summary Assessment Pt better today than she was during last session, not nearly as fatigued, although pt currently stressed due to 's recent health concerns. Physical Therapy Plan Frequency and Duration Frequency of Treatment 1x/Week Duration of Treatment 3 months Plan of Care Start Date 05/19/20 Plan of Care End Date 08/16/20 Therapeutic Interventions Therapeutic Interventions Aquatic Therapy,Home Exercise Program,Joint Mobilizations, Manual Therapy,Neuromuscular Re-education,Self-Care/Home Management,Soft Tissue Mobilization,Therapeutic Exercises Modalities Cold Pack/Ice Massage,Electric Stimulation,Hot Packs Next Visit Focus/Plan Next Note Type Treatment Note Next Visit Plan STM/posture, strengthening
--- NOTE | 2020-07-28 14:30 | PT.OTN ---
Current Diagnoses Scoliosis, unspecified (07/28/20) Spondylosis without myelopathy or radiculopathy, cervical region (07/28/20) Pain in thoracic spine (07/28/20) Physical Therapy Treatment Note PT-OP-A Visit Information Start: 08/06/17 17:30 Freq: Status: Active Protocol: Document 07/28/20 13:45 DCW (Rec: 07/28/20 14:30 DCW [id number]) Out-Patient Physical Therapy Visit Information Visit Information Visit Type Treatment Note Visit Start Time 13:45 Visit Stop Time 14:40 Total Visit Minutes 55 Visit Number 132 Number of GAS SHOVEL OPERATOR Visits 0 Evaluation Information Evaluation Date 05/28/17 PT-OP-B Current Condition Start: 10/04/17 14:21 Freq: Status: Active Protocol: Document 02/20/19 13:45 DCW (Rec: 02/20/19 14:36 DCW [id number]) Current Condition History of Current Condition History of Current Condition Please see patient's chart in Therapy Source for complete history and initial evaluation ADDENDEM 02/20/19: Pt has a new referral to work on balance and gait. Pt notes she doesn't have any recent falls , but that's because I'm good at grabbing things before I go down. Pt has been using a SPC for assistance, and has recently gotten a FWW, although she has yet to use it . Pt admits that she has not been picking my feet up very well. PT-OP-C Subjective Start: 08/06/17 17:30 Freq: Status: Active Protocol: Document 07/28/20 13:45 DCW (Rec: 07/28/20 14:30 DCW [id number]) OP-PT Subjective Patient Comments Patient Comments Pt reports she is feeling pretty good overall. PT-OP-D Balance Start: 02/20/19 13:46 Freq: Status: Active Protocol: Document 05/19/20 16:00 DCW (Rec: 05/19/20 16:41 DCW [id number]) Balance Tests Yanez Balance Test Yanez Balance Test Score 46/56 Yanez Impairment Rating 1 to 19% Impaired (Score 45-55 ) Yanez Balance Assessment Evaluation Sitting to Standing Ability Independent w/out Hands Unsupported Stance Safely- 2 minutes Sitting Unsupported, Feet on Floor Safely- 2 minutes Standing to Sitting Ability Safely, Minimal Hand Use Transfer Ability Safely, Minimal Hand Use Unsupported Stance- Eyes Closed Safely, 10 seconds Unsupported Stance- Eyes Open Independent, 1 minute Reaching Forward Standing Safely, 5 inches Pick- Up Object From Floor Independent/Safe Look Behind Shoulder - Standing Turns Sideways Only Turning 360 Degrees Turns slowly, but safely Unsupported Stance, Alternating Feet on (I)- 8 Steps in > 20 secs Stair Unsupported Tandem Stance Holds Tandem- 30 seconds Unilateral Leg Stance Lifts Leg/Unable to Hold Total Score Yanez Total Score (out of 56 points) 46 Yanez Impairment Rating 1 to 19% Impaired (Score 45-55 ) PT-OP-E Functional Tests Start: 02/20/19 13:46 Freq: Status: Active Protocol: Document 05/19/20 16:00 DCW (Rec: 05/19/20 16:41 DCW [id number]) Functional Tests 2 Minute Walk Test Distance 257 Device Used SPC Comments 2.14 ft/sec Dynamic Gait Index (DGI) Score 19/24 DGI Impairment Rating 20 to <40% Impaired (Score 15- 19) PT-OP-F Manual Assessment Start: 10/04/17 14:21 Freq: Status: Active Protocol: Document 05/21/19 14:30 DCW (Rec: 05/21/19 15:12 DCW [id number]) Manual Assessments Soft Tissue Assessment Soft Tissue Mobility Assessment Moderate tone in Bilateral thoracic and lumbar paraspinals, piriformis, iliopsoas, and quadratus lumborum. Mild tone in bilateral hamstrings and adductor vinod PT-OP-J Posture/Palpation/Skin Start: 10/04/17 14:21 Freq: Status: Active Protocol: Document 05/19/20 16:00 DCW (Rec: 05/19/20 16:41 DCW [id number]) Posture Evaluation Position Standing Head/C-Spine Posture Forward Head T-Spine Posture Flexible Scoliosis on (L), Increased Kyphosis L-Spine Posture Flexible Scoliosis on (R) Pelvis Posture (L) Iliac Crest Superior Hip Posture (L) Flexed,(R) Flexed Comments Posture Comments Pt's jorge with cues to stand as tall as possible: 5' 0.5 / c 1 heel heel PT-OP-K Range of Motion Start: 10/04/17 14:21 Freq: Status: Active Protocol: Document 05/19/20 16:00 DCW (Rec: 05/19/20 16:41 DCW [id number]) Lumbar Spine Range of Motion Lumbar Spine Active Degrees Testing Position Standing Comments Max extension, pt is forward flexed 5? at her thoracic spine Shoulder Goniometric Range of Motion Shoulder Left Active Shoulder ROM WFL No Testing Position Sitting Flexion 159 Abduction 149 External Rotation at 0 degrees Abduction 58 Right Active Shoulder ROM WFL No Testing Position Sitting Flexion 138 Abduction 126 External Rotation at 0 degrees Abduction 55 PT-OP-M Strength Start: 10/04/17 14:21 Freq: Status: Active Protocol: Document 12/18/18 13:45 DCW (Rec: 12/18/18 14:23 DCW [id number]) Shoulder Strength Shoulder Manual Muscle Testing Right Flexion 4 Good Abduction (C5) 4+ Good+ External Rotation 4+ Good+ Internal Rotation 5 Normal Left Flexion 4 Good Abduction (C5) 4+ Good+ External Rotation 4+ Good+ Internal Rotation 5 Normal PT-OP-Q Treatments Start: 08/06/17 17:30 Freq: Status: Active Protocol: Document 07/28/20 13:45 DCW (Rec: 07/28/20 14:30 DCW [id number]) Cardio Equipment Upper Body Ergometer (UBE) Duration (Minutes) 5 RPM 60 Seat Position 12 Height 2.5 Therapeutic Exercises Supine Exercises 1 Supine Exercise Name Supine on Towel roll at T10-12 Side bilateral Comments increase thoracolumbar extension Sitting Exercises PROM Abduction Sitting Exercise Name Pullies GH Abduction Side bilateral Reps/Minutes x10 PROM Flexion Sitting Exercise Name Pullies GH flexion Side bilateral Reps/Minutes x10 Standing Exercises Rows Standing Exercise Name Rows Side bilateral Resistance Lv 2 Equipment Used T-band Reps/Minutes 2x10 Comments VC for upright posture and slowing down movemnt Shoulder Extension Standing Exercise Name Extension Side bilateral Resistance Lv 2 Equipment Used T-band Reps/Minutes 2x10 Comments VC for upright posture and arm extension Manual Therapy Treatment Soft Tissue Mobilization 4 Body Location Piriformis Mobilization Type Strumming,Sustained Pressure, Trigger Point Release Intensity/Depth Moderate Body Position Sidelying 3 Body Location Quadratus Lumborum Mobilization Type Myofascial Release,Strumming, Sustained Pressure Intensity/Depth Moderate Body Position Sidelying 2 Body Location Glute Med Mobilization Type Strumming,Sustained Pressure Intensity/Depth Moderate Body Position Sidelying 1 Body Location Lumbar Erector Spinae Mobilization Type Myofascial Release,Sustained Pressure Intensity/Depth Moderate Body Position Sidelying Joint Mobilizations 1 Joint Thoracic Spine Direction P->A Grade II Body Position Sidelying Manual Traction Lumbar Details Hip/Iliac crest depression Body Position Sidelying Comments MWM PT-OP-R Modalities Start: 08/06/17 17:30 Freq: Status: Active Protocol: Document 07/28/20 13:45 DCW (Rec: 07/28/20 14:30 DCW [id number]) Electric Stimulation Electric Stimulation Interferential Current (IFC) Body Location Lumbar Spine Duration (Minutes) 15 Patient Position Sitting Combined With Heat/Cold Hot Pack Comments stool under B feet PT-OP-T Assessment and Plan Start: 08/06/17 17:30 Freq: Status: Active Protocol: Document 07/28/20 13:45 DCW (Rec: 07/28/20 14:30 DCW [id number]) Physical Therapy Assessment Impairments Impairments Activity Tolerance,Balance, Functional Activities, Functional Mobility,Gait,Pain, Posture,ROM,Soft Tissue Mobility,Strength,Tone Goals Seven Impairment Pt displays increased falls risk Short Term Goal (STG) Pt to score a 47/56 on the Yanez Balance Scale to demonstrate a decreased falls risk STG Duration 07/17/20 - current 46/56 [facility] Goal (LTG) Pt to score a 18/24 on the DGI - MET New Goal: LTG Duration 08/16/20 - Current Six Impairment Difficulty of getting in the car Seat Joiner Chainstitch Goal (LTG) Patient will get in to the car with proper mechanics without difficulty or low back pain LTG Duration Met Five Impairment Difficulty of lifting laundry from floor to shoulder level Seat Joiner Chainstitch Goal (LTG) Patient will learn good lifting mechanics to prevent further low back pain. LTG Duration Met Four Impairment Palpable muscle tone Chcf Goal (LTG) Pt muscle tone grossly to mild levels of tone 05/19/2039-Tdl-Qhhktf tone LTG Duration 08/16/20 Three Impairment Thoracic Spine ROM Short Term Goal (STG) Thoracic spine to lacking 10? from neutral at full extension STG Duration Met Chcf Goal (LTG) Thoracic spine to neutral at full extension LTG Duration 05/19/20 - currently lacking 5? Two Impairment Pain Seat Joiner Chainstitch Goal (LTG) Pt to report decreased pain to a max of 4/10 LTG Duration 08/16/20 One Impairment Activity tolerance Seat Joiner Chainstitch Goal (LTG) Pt to tolerate gardening with no increased pain for three hours 05/19/20 - pt tolerating two hours of gardening with increased pain after 30 minutes LTG Duration 08/16/20 Assessment Summary Assessment Less tone through her low back paraspinals today, although pt did note multiple areas of tenderness. Physical Therapy Plan Frequency and Duration Frequency of Treatment 1x/Week Duration of Treatment 3 months Plan of Care Start Date 05/19/20 Plan of Care End Date 08/16/20 Therapeutic Interventions Therapeutic Interventions Aquatic Therapy,Home Exercise Program,Joint Mobilizations, Manual Therapy,Neuromuscular Re-education,Self-Care/Home Management,Soft Tissue Mobilization,Therapeutic Exercises Modalities Cold Pack/Ice Massage,Electric Stimulation,Hot Packs Next Visit Focus/Plan Next Note Type Treatment Note Next Visit Plan STM/posture, strengthening
--- NOTE | 2020-08-04 14:26 | PT.OTN ---
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) Pain in thoracic spine (08/04/20) Physical Therapy Treatment Note PT-OP-A Visit Information Start: 08/06/17 17:30 Freq: Status: Active Protocol: Document 08/04/20 13:45 DCW (Rec: 08/04/20 14:26 DCW [id number]) Out-Patient Physical Therapy Visit Information Visit Information Visit Type Treatment Note Visit Start Time 13:45 Visit Stop Time 14:40 Total Visit Minutes 55 Visit Number 133 Number of NEUROPSYCHOLOGY MEDICAL CONSULTANT Visits 0 Evaluation Information Evaluation Date 05/28/17 PT-OP-B Current Condition Start: 10/04/17 14:21 Freq: Status: Active Protocol: Document 02/20/19 13:45 DCW (Rec: 02/20/19 14:36 DCW [id number]) Current Condition History of Current Condition History of Current Condition Please see patient's chart in Therapy Source for complete history and initial evaluation ADDENDEM 02/20/19: Pt has a new referral to work on balance and gait. Pt notes she doesn't have any recent falls , but that's because I'm good at grabbing things before I go down. Pt has been using a SPC for assistance, and has recently gotten a FWW, although she has yet to use it . Pt admits that she has not been picking my feet up very well. PT-OP-C Subjective Start: 08/06/17 17:30 Freq: Status: Active Protocol: Document 08/04/20 13:45 DCW (Rec: 08/04/20 14:26 DCW [id number]) OP-PT Subjective Patient Comments Patient Comments My left shoulder decided to be achy today, I'm not sure why. PT-OP-D Balance Start: 02/20/19 13:46 Freq: Status: Active Protocol: Document 05/19/20 16:00 DCW (Rec: 05/19/20 16:41 DCW [id number]) Balance Tests Yanez Balance Test Yanez Balance Test Score 46/56 Yanez Impairment Rating 1 to 19% Impaired (Score 45-55 ) Yanez Balance Assessment Evaluation Sitting to Standing Ability Independent w/out Hands Unsupported Stance Safely- 2 minutes Sitting Unsupported, Feet on Floor Safely- 2 minutes Standing to Sitting Ability Safely, Minimal Hand Use Transfer Ability Safely, Minimal Hand Use Unsupported Stance- Eyes Closed Safely, 10 seconds Unsupported Stance- Eyes Open Independent, 1 minute Reaching Forward Standing Safely, 5 inches Pick- Up Object From Floor Independent/Safe Look Behind Shoulder - Standing Turns Sideways Only Turning 360 Degrees Turns slowly, but safely Unsupported Stance, Alternating Feet on (I)- 8 Steps in > 20 secs Stair Unsupported Tandem Stance Holds Tandem- 30 seconds Unilateral Leg Stance Lifts Leg/Unable to Hold Total Score Yanez Total Score (out of 56 points) 46 Yanez Impairment Rating 1 to 19% Impaired (Score 45-55 ) PT-OP-E Functional Tests Start: 02/20/19 13:46 Freq: Status: Active Protocol: Document 05/19/20 16:00 DCW (Rec: 05/19/20 16:41 DCW [id number]) Functional Tests 2 Minute Walk Test Distance 257 Device Used SPC Comments 2.14 ft/sec Dynamic Gait Index (DGI) Score 19/24 DGI Impairment Rating 20 to <40% Impaired (Score 15- 19) PT-OP-F Manual Assessment Start: 10/04/17 14:21 Freq: Status: Active Protocol: Document 05/21/19 14:30 DCW (Rec: 05/21/19 15:12 DCW [id number]) Manual Assessments Soft Tissue Assessment Soft Tissue Mobility Assessment Moderate tone in Bilateral thoracic and lumbar paraspinals, piriformis, iliopsoas, and quadratus lumborum. Mild tone in bilateral hamstrings and adductor vinod PT-OP-J Posture/Palpation/Skin Start: 10/04/17 14:21 Freq: Status: Active Protocol: Document 05/19/20 16:00 DCW (Rec: 05/19/20 16:41 DCW [id number]) Posture Evaluation Position Standing Head/C-Spine Posture Forward Head T-Spine Posture Flexible Scoliosis on (L), Increased Kyphosis L-Spine Posture Flexible Scoliosis on (R) Pelvis Posture (L) Iliac Crest Superior Hip Posture (L) Flexed,(R) Flexed Comments Posture Comments Pt's jorge with cues to stand as tall as possible: 5' 0.5 / c 1 heel heel PT-OP-K Range of Motion Start: 10/04/17 14:21 Freq: Status: Active Protocol: Document 05/19/20 16:00 DCW (Rec: 05/19/20 16:41 DCW [id number]) Lumbar Spine Range of Motion Lumbar Spine Active Degrees Testing Position Standing Comments Max extension, pt is forward flexed 5? at her thoracic spine Shoulder Goniometric Range of Motion Shoulder Left Active Shoulder ROM WFL No Testing Position Sitting Flexion 159 Abduction 149 External Rotation at 0 degrees Abduction 58 Right Active Shoulder ROM WFL No Testing Position Sitting Flexion 138 Abduction 126 External Rotation at 0 degrees Abduction 55 PT-OP-M Strength Start: 10/04/17 14:21 Freq: Status: Active Protocol: Document 12/18/18 13:45 DCW (Rec: 12/18/18 14:23 DCW [id number]) Shoulder Strength Shoulder Manual Muscle Testing Right Flexion 4 Good Abduction (C5) 4+ Good+ External Rotation 4+ Good+ Internal Rotation 5 Normal Left Flexion 4 Good Abduction (C5) 4+ Good+ External Rotation 4+ Good+ Internal Rotation 5 Normal PT-OP-Q Treatments Start: 08/06/17 17:30 Freq: Status: Active Protocol: Document 08/04/20 13:45 DCW (Rec: 08/04/20 14:26 DCW [id number]) Cardio Equipment Upper Body Ergometer (UBE) Duration (Minutes) 5 RPM 60 Seat Position 12 Height 2.5 Therapeutic Exercises Supine Exercises 1 Supine Exercise Name Supine on Towel roll at T10-12 Side bilateral Comments increase thoracolumbar extension Sitting Exercises PROM Abduction Sitting Exercise Name Pullies GH Abduction Side bilateral Reps/Minutes x10 PROM Flexion Sitting Exercise Name Pullies GH flexion Side bilateral Reps/Minutes x10 Standing Exercises Rows Standing Exercise Name Rows Side bilateral Resistance Lv 2 Equipment Used T-band Reps/Minutes 2x10 Comments VC for upright posture and slowing down movemnt Shoulder Extension Standing Exercise Name Extension Side bilateral Resistance Lv 2 Equipment Used T-band Reps/Minutes 2x10 Comments VC for upright posture and arm extension Manual Therapy Treatment Soft Tissue Mobilization 4 Body Location Piriformis Mobilization Type Strumming,Sustained Pressure, Trigger Point Release Intensity/Depth Moderate Body Position Sidelying 3 Body Location Quadratus Lumborum Mobilization Type Myofascial Release,Strumming, Sustained Pressure Intensity/Depth Moderate Body Position Sidelying 2 Body Location Glute Med Mobilization Type Strumming,Sustained Pressure Intensity/Depth Moderate Body Position Sidelying 1 Body Location Lumbar Erector Spinae Mobilization Type Myofascial Release,Sustained Pressure Intensity/Depth Moderate Body Position Sidelying Joint Mobilizations 1 Joint Thoracic Spine Direction P->A Grade II Body Position Sidelying Manual Traction Lumbar Details Hip/Iliac crest depression Body Position Sidelying Comments MWM PT-OP-R Modalities Start: 08/06/17 17:30 Freq: Status: Active Protocol: Document 08/04/20 13:45 DCW (Rec: 08/04/20 14:26 DCW [id number]) Electric Stimulation Electric Stimulation Interferential Current (IFC) Body Location Lumbar Spine Duration (Minutes) 15 Patient Position Sitting Combined With Heat/Cold Hot Pack Comments stool under B feet PT-OP-T Assessment and Plan Start: 08/06/17 17:30 Freq: Status: Active Protocol: Document 08/04/20 13:45 DCW (Rec: 08/04/20 14:26 DCW [id number]) Physical Therapy Assessment Impairments Impairments Activity Tolerance,Balance, Functional Activities, Functional Mobility,Gait,Pain, Posture,ROM,Soft Tissue Mobility,Strength,Tone Goals Seven Impairment Pt displays increased falls risk Short Term Goal (STG) Pt to score a 47/56 on the Yanez Balance Scale to demonstrate a decreased falls risk STG Duration 07/17/20 - current 46/56 Firm Administrator Goal (LTG) Pt to score a 18/24 on the DGI - MET New Goal: LTG Duration 08/16/20 - Current Six Impairment Difficulty of getting in the car Long-Term Goal (LTG) Patient will get in to the car with proper mechanics without difficulty or low back pain LTG Duration Met Five Impairment Difficulty of lifting laundry from floor to shoulder level Long-Term Goal (LTG) Patient will learn good lifting mechanics to prevent further low back pain. LTG Duration Met Four Impairment Palpable muscle tone Firm Administrator Goal (LTG) Pt muscle tone grossly to mild levels of tone 05/19/2030-Rfw-Tyqmme tone LTG Duration 08/16/20 Three Impairment Thoracic Spine ROM Short Term Goal (STG) Thoracic spine to lacking 10? from neutral at full extension STG Duration Met Firm Administrator Goal (LTG) Thoracic spine to neutral at full extension LTG Duration 05/19/20 - currently lacking 5? Two Impairment Pain Firm Administrator Goal (LTG) Pt to report decreased pain to a max of 4/10 LTG Duration 08/16/20 One Impairment Activity tolerance Long-Term Goal (LTG) Pt to tolerate gardening with no increased pain for three hours 05/19/20 - pt tolerating two hours of gardening with increased pain after 30 minutes LTG Duration 08/16/20 Assessment Summary Assessment Less tone through her low back paraspinals today, although pt did note multiple areas of tenderness. Physical Therapy Plan Frequency and Duration Frequency of Treatment 1x/Week Duration of Treatment 3 months Plan of Care Start Date 05/19/20 Plan of Care End Date 08/16/20 Therapeutic Interventions Therapeutic Interventions Aquatic Therapy,Home Exercise Program,Joint Mobilizations, Manual Therapy,Neuromuscular Re-education,Self-Care/Home Management,Soft Tissue Mobilization,Therapeutic Exercises Modalities Cold Pack/Ice Massage,Electric Stimulation,Hot Packs Next Visit Focus/Plan Next Note Type Treatment Note Next Visit Plan STM/posture, strengthening
--- NOTE | 2020-08-11 14:28 | PT.OTN ---
Current Diagnoses Scoliosis, unspecified (08/11/20) Spondylosis without myelopathy or radiculopathy, cervical region (08/11/20) Pain in thoracic spine (08/11/20) Physical Therapy Treatment Note PT-OP-A Visit Information Start: 08/06/17 17:30 Freq: Status: Active Protocol: Document 08/11/20 13:45 DCW (Rec: 08/11/20 14:28 DCW [id number]) Out-Patient Physical Therapy Visit Information Visit Information Visit Type Treatment Note Visit Start Time 13:45 Visit Stop Time 14:40 Total Visit Minutes 55 Visit Number 134 Number of RADIOLOGIC TECHNICIAN Visits 0 Evaluation Information Evaluation Date 05/28/17 PT-OP-B Current Condition Start: 10/04/17 14:21 Freq: Status: Active Protocol: Document 02/20/19 13:45 DCW (Rec: 02/20/19 14:36 DCW [id number]) Current Condition History of Current Condition History of Current Condition Please see patient's chart in Therapy Source for complete history and initial evaluation ADDENDEM 02/20/19: Pt has a new referral to work on balance and gait. Pt notes she doesn't have any recent falls , but that's because I'm good at grabbing things before I go down. Pt has been using a SPC for assistance, and has recently gotten a FWW, although she has yet to use it . Pt admits that she has not been picking my feet up very well. PT-OP-C Subjective Start: 08/06/17 17:30 Freq: Status: Active Protocol: Document 08/11/20 13:45 DCW (Rec: 08/11/20 14:28 DCW [id number]) OP-PT Subjective Patient Comments Patient Comments Pt reports she is feeling pretty good today, notes she had an epidural steroid injection , felt really good for a few days, then the effects started to fade, and she's unsure now how much it is helping. PT-OP-D Balance Start: 02/20/19 13:46 Freq: Status: Active Protocol: Document 05/19/20 16:00 DCW (Rec: 05/19/20 16:41 DCW [id number]) Balance Tests Yanez Balance Test Yanez Balance Test Score 46/56 Yanez Impairment Rating 1 to 19% Impaired (Score 45-55 ) Yanez Balance Assessment Evaluation Sitting to Standing Ability Independent w/out Hands Unsupported Stance Safely- 2 minutes Sitting Unsupported, Feet on Floor Safely- 2 minutes Standing to Sitting Ability Safely, Minimal Hand Use Transfer Ability Safely, Minimal Hand Use Unsupported Stance- Eyes Closed Safely, 10 seconds Unsupported Stance- Eyes Open Independent, 1 minute Reaching Forward Standing Safely, 5 inches Pick- Up Object From Floor Independent/Safe Look Behind Shoulder - Standing Turns Sideways Only Turning 360 Degrees Turns slowly, but safely Unsupported Stance, Alternating Feet on (I)- 8 Steps in > 20 secs Stair Unsupported Tandem Stance Holds Tandem- 30 seconds Unilateral Leg Stance Lifts Leg/Unable to Hold Total Score Yanez Total Score (out of 56 points) 46 Yanez Impairment Rating 1 to 19% Impaired (Score 45-55 ) PT-OP-E Functional Tests Start: 02/20/19 13:46 Freq: Status: Active Protocol: Document 05/19/20 16:00 DCW (Rec: 05/19/20 16:41 DCW [id number]) Functional Tests 2 Minute Walk Test Distance 257 Device Used SPC Comments 2.14 ft/sec Dynamic Gait Index (DGI) Score 19/24 DGI Impairment Rating 20 to <40% Impaired (Score 15- 19) PT-OP-F Manual Assessment Start: 10/04/17 14:21 Freq: Status: Active Protocol: Document 05/21/19 14:30 DCW (Rec: 05/21/19 15:12 DCW [id number]) Manual Assessments Soft Tissue Assessment Soft Tissue Mobility Assessment Moderate tone in Bilateral thoracic and lumbar paraspinals, piriformis, iliopsoas, and quadratus lumborum. Mild tone in bilateral hamstrings and adductor vinod PT-OP-J Posture/Palpation/Skin Start: 10/04/17 14:21 Freq: Status: Active Protocol: Document 05/19/20 16:00 DCW (Rec: 05/19/20 16:41 DCW [id number]) Posture Evaluation Position Standing Head/C-Spine Posture Forward Head T-Spine Posture Flexible Scoliosis on (L), Increased Kyphosis L-Spine Posture Flexible Scoliosis on (R) Pelvis Posture (L) Iliac Crest Superior Hip Posture (L) Flexed,(R) Flexed Comments Posture Comments Pt's jorge with cues to stand as tall as possible: 5' 0.5 / c 1 heel heel PT-OP-K Range of Motion Start: 10/04/17 14:21 Freq: Status: Active Protocol: Document 05/19/20 16:00 DCW (Rec: 05/19/20 16:41 DCW [id number]) Lumbar Spine Range of Motion Lumbar Spine Active Degrees Testing Position Standing Comments Max extension, pt is forward flexed 5? at her thoracic spine Shoulder Goniometric Range of Motion Shoulder Left Active Shoulder ROM WFL No Testing Position Sitting Flexion 159 Abduction 149 External Rotation at 0 degrees Abduction 58 Right Active Shoulder ROM WFL No Testing Position Sitting Flexion 138 Abduction 126 External Rotation at 0 degrees Abduction 55 PT-OP-M Strength Start: 10/04/17 14:21 Freq: Status: Active Protocol: Document 12/18/18 13:45 DCW (Rec: 12/18/18 14:23 DCW [id number]) Shoulder Strength Shoulder Manual Muscle Testing Right Flexion 4 Good Abduction (C5) 4+ Good+ External Rotation 4+ Good+ Internal Rotation 5 Normal Left Flexion 4 Good Abduction (C5) 4+ Good+ External Rotation 4+ Good+ Internal Rotation 5 Normal PT-OP-Q Treatments Start: 08/06/17 17:30 Freq: Status: Active Protocol: Document 08/11/20 13:45 DCW (Rec: 08/11/20 14:28 DCW [id number]) Cardio Equipment Upper Body Ergometer (UBE) Duration (Minutes) 5 RPM 60 Seat Position 12 Height 2.5 Therapeutic Exercises Sitting Exercises PROM Abduction Sitting Exercise Name Pullies GH Abduction Side bilateral Reps/Minutes x10 PROM Flexion Sitting Exercise Name Pullies GH flexion Side bilateral Reps/Minutes x10 Standing Exercises Rows Standing Exercise Name Rows Side bilateral Resistance Lv 2 Equipment Used T-band Reps/Minutes 2x10 Comments VC for upright posture and slowing down movemnt Shoulder Extension Standing Exercise Name Extension Side bilateral Resistance Lv 2 Equipment Used T-band Reps/Minutes 2x10 Comments VC for upright posture and arm extension Manual Therapy Treatment Soft Tissue Mobilization 4 Body Location Piriformis Mobilization Type Strumming,Sustained Pressure, Trigger Point Release Intensity/Depth Moderate Body Position Sidelying 3 Body Location Quadratus Lumborum Mobilization Type Myofascial Release,Strumming, Sustained Pressure Intensity/Depth Moderate Body Position Sidelying 2 Body Location Glute Med Mobilization Type Strumming,Sustained Pressure Intensity/Depth Moderate Body Position Sidelying 1 Body Location Lumbar Erector Spinae Mobilization Type Myofascial Release,Sustained Pressure Intensity/Depth Moderate Body Position Sidelying Joint Mobilizations 1 Joint Thoracic Spine Direction P->A Grade II Body Position Sidelying Manual Traction Lumbar Details Hip/Iliac crest depression Body Position Sidelying Comments MWM PT-OP-R Modalities Start: 08/06/17 17:30 Freq: Status: Active Protocol: Document 08/11/20 13:45 DCW (Rec: 08/11/20 14:28 DCW [id number]) Electric Stimulation Electric Stimulation Interferential Current (IFC) Body Location Lumbar Spine Duration (Minutes) 15 Patient Position Sitting Combined With Heat/Cold Hot Pack Comments stool under B feet PT-OP-T Assessment and Plan Start: 08/06/17 17:30 Freq: Status: Active Protocol: Document 08/11/20 13:45 DCW (Rec: 08/11/20 14:28 DCW [id number]) Physical Therapy Assessment Impairments Impairments Activity Tolerance,Balance, Functional Activities, Functional Mobility,Gait,Pain, Posture,ROM,Soft Tissue Mobility,Strength,Tone Goals Seven Impairment Pt displays increased falls risk Short Term Goal (STG) Pt to score a 47/56 on the Yanez Balance Scale to demonstrate a decreased falls risk STG Duration 07/17/20 - current 46/56 Half-Way Goal (LTG) Pt to score a 18/24 on the DGI - MET New Goal: LTG Duration 08/16/20 - Current Six Impairment Difficulty of getting in the car Business Banking Relationship Manager Goal (LTG) Patient will get in to the car with proper mechanics without difficulty or low back pain LTG Duration Met Five Impairment Difficulty of lifting laundry from floor to shoulder level Half-Way Goal (LTG) Patient will learn good lifting mechanics to prevent further low back pain. LTG Duration Met Four Impairment Palpable muscle tone Business Banking Relationship Manager Goal (LTG) Pt muscle tone grossly to mild levels of tone 05/19/2047-Yke-Mhgqnq tone LTG Duration 08/16/20 Three Impairment Thoracic Spine ROM Short Term Goal (STG) Thoracic spine to lacking 10? from neutral at full extension STG Duration Met Business Banking Relationship Manager Goal (LTG) Thoracic spine to neutral at full extension LTG Duration 05/19/20 - currently lacking 5? Two Impairment Pain Business Banking Relationship Manager Goal (LTG) Pt to report decreased pain to a max of 4/10 LTG Duration 08/16/20 One Impairment Activity tolerance Business Banking Relationship Manager Goal (LTG) Pt to tolerate gardening with no increased pain for three hours 05/19/20 - pt tolerating two hours of gardening with increased pain after 30 minutes LTG Duration 08/16/20 Assessment Summary Assessment Pt tolerated treatment well today, appears to be moving better following her steroid injection last week. Physical Therapy Plan Frequency and Duration Frequency of Treatment 1x/Week Duration of Treatment 3 months Plan of Care Start Date 05/19/20 Plan of Care End Date 08/16/20 Therapeutic Interventions Therapeutic Interventions Aquatic Therapy,Home Exercise Program,Joint Mobilizations, Manual Therapy,Neuromuscular Re-education,Self-Care/Home Management,Soft Tissue Mobilization,Therapeutic Exercises Modalities Cold Pack/Ice Massage,Electric Stimulation,Hot Packs Next Visit Focus/Plan Next Note Type Treatment Note Next Visit Plan STM/posture, strengthening
--- NOTE | 2020-08-18 14:35 | PT.OTN ---
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) Pain in thoracic spine (08/18/20) Physical Therapy Treatment Note PT-OP-A Visit Information Start: 08/06/17 17:30 Freq: Status: Active Protocol: Document 08/18/20 13:45 DCW (Rec: 08/18/20 14:32 DCW [id number]) Out-Patient Physical Therapy Visit Information Visit Information Visit Type Discharge Summary Visit Start Time 13:45 Visit Stop Time 14:30 Total Visit Minutes 45 Visit Number 135 Number of BED MACHINE OPERATOR Visits 0 Evaluation Information Evaluation Date 05/28/17 PT-OP-B Current Condition Start: 10/04/17 14:21 Freq: Status: Active Protocol: Document 02/20/19 13:45 DCW (Rec: 02/20/19 14:36 DCW [id number]) Current Condition History of Current Condition History of Current Condition Please see patient's chart in Therapy Source for complete history and initial evaluation ADDENDEM 02/20/19: Pt has a new referral to work on balance and gait. Pt notes she doesn't have any recent falls , but that's because I'm good at grabbing things before I go down. Pt has been using a SPC for assistance, and has recently gotten a FWW, although she has yet to use it . Pt admits that she has not been picking my feet up very well. PT-OP-C Subjective Start: 08/06/17 17:30 Freq: Status: Active Protocol: Document 08/18/20 13:45 DCW (Rec: 08/18/20 14:32 DCW [id number]) OP-PT Subjective Patient Comments Patient Comments Pt reports she was pretty sore after her last visit, but feels better now. PT-OP-D Balance Start: 02/20/19 13:46 Freq: Status: Active Protocol: Document 08/18/20 13:45 DCW (Rec: 08/18/20 14:17 DCW [id number]) Balance Tests Yanez Balance Test Yanez Balance Test Score 46/56 Yanez Impairment Rating 1 to 19% Impaired (Score 45-55 ) Yanez Balance Assessment Evaluation Sitting to Standing Ability Independent w/out Hands Unsupported Stance Safely- 2 minutes Sitting Unsupported, Feet on Floor Safely- 2 minutes Standing to Sitting Ability Safely, Minimal Hand Use Transfer Ability Safely, Minimal Hand Use Unsupported Stance- Eyes Closed Safely, 10 seconds Unsupported Stance- Eyes Open Independent, 1 minute Reaching Forward Standing Safely, 5 inches Pick- Up Object From Floor Independent/Safe Look Behind Shoulder - Standing Shifts Weight Unilateral Turning 360 Degrees Turns slowly, but safely Unsupported Stance, Alternating Feet on 4 Steps w/Supervision Stair Unsupported Tandem Stance Holds Tandem- 30 seconds Unilateral Leg Stance Lifts Leg/Unable to Hold Total Score Yanez Total Score (out of 56 points) 46 Yanez Impairment Rating 1 to 19% Impaired (Score 45-55 ) PT-OP-E Functional Tests Start: 02/20/19 13:46 Freq: Status: Active Protocol: Document 08/18/20 13:45 DCW (Rec: 08/18/20 14:17 DCW [id number]) Functional Tests 2 Minute Walk Test Distance 217 Device Used SPC Comments 1.81 ft/sec Dynamic Gait Index (DGI) Score 17/24 DGI Impairment Rating 20 to <40% Impaired (Score 15- 19) PT-OP-F Manual Assessment Start: 10/04/17 14:21 Freq: Status: Active Protocol: Document 05/21/19 14:30 DCW (Rec: 05/21/19 15:12 DCW [id number]) Manual Assessments Soft Tissue Assessment Soft Tissue Mobility Assessment Moderate tone in Bilateral thoracic and lumbar paraspinals, piriformis, iliopsoas, and quadratus lumborum. Mild tone in bilateral hamstrings and adductor vinod PT-OP-J Posture/Palpation/Skin Start: 10/04/17 14:21 Freq: Status: Active Protocol: Document 08/18/20 13:45 DCW (Rec: 08/18/20 14:17 DCW [id number]) Posture Evaluation Position Standing Head/C-Spine Posture Forward Head T-Spine Posture Flexible Scoliosis on (L), Increased Kyphosis L-Spine Posture Flexible Scoliosis on (R) Pelvis Posture (L) Iliac Crest Superior Hip Posture (L) Flexed,(R) Flexed Comments Posture Comments Pt's jorge with cues to stand as tall as possible: 5' 0.75 /c 1.25 heel heel PT-OP-K Range of Motion Start: 10/04/17 14:21 Freq: Status: Active Protocol: Document 08/18/20 13:45 DCW (Rec: 08/18/20 14:17 DCW [id number]) Lumbar Spine Range of Motion Lumbar Spine Active Degrees Testing Position Standing Comments Max extension, pt is forward flexed 6? at her thoracic spine Shoulder Goniometric Range of Motion Shoulder Left Active Shoulder ROM WFL No Testing Position Sitting Flexion 150 Abduction 148 External Rotation at 0 degrees Abduction 58 Right Active Shoulder ROM WFL No Testing Position Sitting Flexion 134 Abduction 128 External Rotation at 0 degrees Abduction 55 PT-OP-M Strength Start: 10/04/17 14:21 Freq: Status: Active Protocol: Document 12/18/18 13:45 DCW (Rec: 12/18/18 14:23 DCW [id number]) Shoulder Strength Shoulder Manual Muscle Testing Right Flexion 4 Good Abduction (C5) 4+ Good+ External Rotation 4+ Good+ Internal Rotation 5 Normal Left Flexion 4 Good Abduction (C5) 4+ Good+ External Rotation 4+ Good+ Internal Rotation 5 Normal PT-OP-Q Treatments Start: 08/06/17 17:30 Freq: Status: Active Protocol: Document 08/18/20 13:45 DCW (Rec: 08/18/20 14:32 DCW [id number]) Neuro Re-Education Treatment Other Activities Testing Details 2 MWT, DGI, Yanez PT-OP-R Modalities Start: 08/06/17 17:30 Freq: Status: Active Protocol: Document 08/11/20 13:45 DCW (Rec: 08/11/20 14:28 DCW [id number]) Electric Stimulation Electric Stimulation Interferential Current (IFC) Body Location Lumbar Spine Duration (Minutes) 15 Patient Position Sitting Combined With Heat/Cold Hot Pack Comments stool under B feet PT-OP-T Assessment and Plan Start: 08/06/17 17:30 Freq: Status: Active Protocol: Document 08/18/20 13:45 DCW (Rec: 08/18/20 14:32 DCW [id number]) Physical Therapy Assessment Impairments Impairments Activity Tolerance,Balance, Functional Activities, Functional Mobility,Gait,Pain, Posture,ROM,Soft Tissue Mobility,Strength,Tone Goals Seven Impairment Pt displays increased falls risk Short Term Goal (STG) Pt to score a 47/56 on the Yanez Balance Scale to demonstrate a decreased falls risk STG Duration 07/17/20 - current 46/56 Registered Nurse Midwife Goal (LTG) Pt to score a 18/24 on the DGI - MET New Goal: LTG Duration 08/16/20 - Current Six Impairment Difficulty of getting in the car Shelter Goal (LTG) Patient will get in to the car with proper mechanics without difficulty or low back pain LTG Duration Met Five Impairment Difficulty of lifting laundry from floor to shoulder level Registered Nurse Midwife Goal (LTG) Patient will learn good lifting mechanics to prevent further low back pain. LTG Duration Met Four Impairment Palpable muscle tone Registered Nurse Midwife Goal (LTG) Pt muscle tone grossly to mild levels of tone 05/19/2012-Ksa-Offpjz tone LTG Duration 08/16/20 Three Impairment Thoracic Spine ROM Short Term Goal (STG) Thoracic spine to lacking 10? from neutral at full extension STG Duration Met Registered Nurse Midwife Goal (LTG) Thoracic spine to neutral at full extension LTG Duration 05/19/20 - currently lacking 5? Two Impairment Pain Shelter Goal (LTG) Pt to report decreased pain to a max of 4/10 LTG Duration 08/16/20 One Impairment Activity tolerance Registered Nurse Midwife Goal (LTG) Pt to tolerate gardening with no increased pain for three hours 05/19/20 - pt tolerating two hours of gardening with increased pain after 30 minutes LTG Duration 08/16/20 Progress Towards Goals Progress Towards Goals Slow Progress due to Medical Issues Assessment Summary Assessment Pt reassessment today showed pt has largely not changed since her last assessment. Yanez and DGI scores have not shown a statistically significant change, her posture is unchanged, and mobility has not improved. Pt has reached a progress plateau , and is no longer benefitting from skilled therapy. Pt will be discharged at this time, and will require a new referral in order to return to skilled therapy. Physical Therapy Plan Frequency and Duration Frequency of Treatment 1x/Week Duration of Treatment 1 day Plan of Care Start Date 08/18/20 Plan of Care End Date 08/19/20 Therapeutic Interventions Therapeutic Interventions Aquatic Therapy,Home Exercise Program,Joint Mobilizations, Manual Therapy,Neuromuscular Re-education,Self-Care/Home Management,Soft Tissue Mobilization,Therapeutic Exercises Modalities Cold Pack/Ice Massage,Electric Stimulation,Hot Packs Discharge Physical Therapy Discharge Reasons Plateau in Progress Next Visit Focus/Plan Next Note Type Discharge Summary
--- NOTE | 2020-08-18 14:36 | PT.OPPOC ---
Physical, Occupational & Speech Therapy At 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) Pain in thoracic spine (08/18/20) Visit Care Team Role Provider Type Jia Sheridan MD Attending Provider Physician Family Provider Primary Care Provider Referring Provider Specialty: [facility] Practice Address: [address] [place] [address], [facility] [place], [address] Email: [email or web address] Plan Of Care PT-OP-T Assessment and Plan Start: 08/06/17 17:30 Freq: Status: Active Protocol: Document 08/18/20 13:45 DCW (Rec: 08/18/20 14:32 DCW [id number]) Physical Therapy Assessment Impairments Impairments Activity Tolerance,Balance, Functional Activities, Functional Mobility,Gait,Pain, Posture,ROM,Soft Tissue Mobility,Strength,Tone Goals Seven Impairment Pt displays increased falls risk Short Term Goal (STG) Pt to score a 47/56 on the Yanez Balance Scale to demonstrate a decreased falls risk STG Duration 07/17/20 - current 46/56 Senior Lead Software Engineer Goal (LTG) Pt to score a 18/24 on the DGI - MET New Goal: LTG Duration 08/16/20 - Current Six Impairment Difficulty of getting in the car Senior Lead Software Engineer Goal (LTG) Patient will get in to the car with proper mechanics without difficulty or low back pain LTG Duration Met Five Impairment Difficulty of lifting laundry from floor to shoulder level Fpc Goal (LTG) Patient will learn good lifting mechanics to prevent further low back pain. LTG Duration Met Four Impairment Palpable muscle tone Fpc Goal (LTG) Pt muscle tone grossly to mild levels of tone 05/19/2004-Gzv-Abqzxn tone LTG Duration 08/16/20 Three Impairment Thoracic Spine ROM Short Term Goal (STG) Thoracic spine to lacking 10? from neutral at full extension STG Duration Met Fpc Goal (LTG) Thoracic spine to neutral at full extension LTG Duration 05/19/20 - currently lacking 5? Two Impairment Pain Fpc Goal (LTG) Pt to report decreased pain to a max of 4/10 LTG Duration 08/16/20 One Impairment Activity tolerance Fpc Goal (LTG) Pt to tolerate gardening with no increased pain for three hours 05/19/20 - pt tolerating two hours of gardening with increased pain after 30 minutes LTG Duration 08/16/20 Progress Towards Goals Progress Towards Goals Slow Progress due to Medical Issues Assessment Summary Assessment Pt reassessment today showed pt has largely not changed since her last assessment. Yanez and DGI scores have not shown a statistically significant change, her posture is unchanged, and mobility has not improved. Pt has reached a progress plateau , and is no longer benefitting from skilled therapy. Pt will be discharged at this time, and will require a new referral in order to return to skilled therapy. Physical Therapy Plan Frequency and Duration Frequency of Treatment 1x/Week Duration of Treatment 1 day Plan of Care Start Date 08/18/20 Plan of Care End Date 08/19/20 Therapeutic Interventions Therapeutic Interventions Aquatic Therapy,Home Exercise Program,Joint Mobilizations, Manual Therapy,Neuromuscular Re-education,Self-Care/Home Management,Soft Tissue Mobilization,Therapeutic Exercises Modalities Cold Pack/Ice Massage,Electric Stimulation,Hot Packs Discharge Physical Therapy Discharge Reasons Plateau in Progress Next Visit Focus/Plan Next Note Type Discharge Summary Plan of Care Dates Plan of Care Start Date 08/18/20 Plan of Care End Date 08/19/20 Electronically Signed by: Wallace Wilson, PT 08/18/20 [id number] Please Sign and Return: I have reviewed this Plan of Care and certify that the skilled therapy services above are required to meet the patient?s needs. Physician Signature Date Printed Name and Credentials Clinical Instructor Signature Printed Name and Credentials
== END 2020-08-19 07:56 | disposition home or self-care (01) ==
LOC: PHYS 13:45
PROVIDERS: Family Provider Family Medicine; PCP Family Medicine; Referring Provider Family Medicine; Visit Provider Family Medicine
DX: M54.6 Pain in thoracic spine (principal); M47.812 Spondylosis without myelopathy or radiculopathy, cervical region; M41.9 Scoliosis, unspecified
CPT/HCPCS: 97014; 97032; 97110; 97112; 97140; 97164; G0283

== ENCOUNTER → 2020-10-19 08:03 | Outpatient (CLI) | payer MEDICARE, OTHER, SELFPAY ==
[2020-10-19 12:47] LABS: COVID19 -Nasal RAPID Negative (Negative)
== END ==
PROVIDERS: Family Provider Family Medicine; PCP Family Medicine; Visit Provider Physical Medicine & Rehabilitation
DX: Z20.822 Contact with and (suspected) exposure to COVID-19 (principal)
CPT/HCPCS: 87635; C9803

== ENCOUNTER 2020-10-21 13:17 | Outpatient (CLI) | payer MEDICARE, OTHER, SELFPAY ==
[2020-10-21] VITALS (7 sets, daily range): BP systolic 119–153; BP diastolic 60–76; PULSE 65–77; RESP 14–20; TEMP 37; O2SAT 98–100
--- NOTE | 2020-10-21 13:20 | DI.RAD.S_ITS ---
PROCEDURE: PAIN L/S FACET INJ/BLK 1ST LEÓN COMPARISON: [facility], CR, XR LUMBAR SPINE MIN 4V, 06/29/2020, 12:36. [facility], MR, MR LUMBAR SPINE WO CON, 06/29/2020, 12:04. INDICATIONS: SPONDYLOSIS FINDINGS: 6 intraoperative fluoroscopy images demonstrate needle placement at L4-L5 and L5-S1 facet joints bilaterally. IMPRESSION: Fluoroscopy for pain management. Dictated by: Gonzalo Head M.D. on 10/21/2020 at 17:03 Approved by: Gonzalo Head M.D. on 10/21/2020 at 17:04
[2020-10-21] MEDS: MIDAZOLAM 5 MG/5 ML VIAL IV (14:15)
[2020-10-21] MEDS: BUPIVACAINE 0.5% (PF) VIAL 5 ML INJ (14:18)
[2020-10-21] MEDS: IOPAMIDOL 15 ML VIAL 3 ML INJ (14:18)
[2020-10-21] MEDS: BETAMETHASONE 30 MG/5 ML MDV 12 MG INJ (14:19)
[2020-10-21] MEDS: LIDOCAINE 1% 20 ML 10 ML INJ (14:19)
--- NOTE | 2020-10-21 14:31 | P.PCN_ITS ---
Date/Time/Diagnoses Date of procedure: 10/21/20 Time of procedure: 14:31 Pre-procedure diagnosis: 1. FACET ARTHROPATHY 2. AXIAL LBP 3. MULTILEVEL DDD Post-procedure diagnosis: same Procedure Notes Procedure: 1. FLUOROSCOPICALLY GUIDED CONTRAST CONTROLLED FACET JOINT INJECTIONS BILATERAL L4/5, L5/S1 Indications: Stacey is referred by Dr. Sheridan for treatment of Axial LBP Physician: Al Kunz Total Fluoroscopy time (seconds): 11 Total sedation minutes: 12 Complications: none Procedure in detail & Post-procedure care: FINDINGS Multilevel Facet Arthropathy with Clinically significant axial LBP DESCRIPTION OF PROCEDURE Fluoroscopically guided, contrast-controlled bilateral L4/5, L5/S1 facet joint injections. Following review of allergy and review of potential side effects and complications, including, but not necessarily limited to, infection, allergic reaction, local tissue breakdown, stroke, temporary or permanent nerve injury, paralysis, and possible , the patient indicated that the patient understood and agreed to proceed. An informed consent document was signed by the patient, witnessed by a nurse, and placed in the patient's chart. Additionally, other treatment options including medications, modalities, and physical therapy were reviewed with the patient. After review of previous anaesthesic history and IV conscious sedation the patient was deemed safe to proceed with today?s procedure with IV conscious sedation as ASA class II designation. Safety time-out was performed to confirm patient ID, procedure to be performed and site of procedure. IV sedation was accomplished with a combination of 2mg of Versed was administered by the RN after DO order, titrated to patient comfort during the course of the procedure while the patient remained responsive to all verbal commands In the prone position, following sterile prep and drape of the lumbar region, the posterior aspect of the L4/5, L5/S1 facet joints were identified fluoroscopically. The skin was anesthetized via a 25-gauge 1.5inch needle with 1% lidocaine solution into the corresponding facet joints. At this point, a 22- gauge 3.5-inch spinal needle was atraumatically introduced and advanced under fluoroscopic guidance into the corresponding facet joints. Following negative aspiration, injections of approximately 0.2cc of Isovue 200 confirmed interarticular placement without vascular uptake. The identical procedure was then performed at the L4/5, L5/S1 facet joints on the left. Radiological data, including multiple fluoroscopic views of the lumbosacral spine, reveal a spinal needle at the L4/5, L5/S1 facet joints bilaterally. Subsequent views show flow of contrast material both superiorly and inferiorly within the joint space without vascular or intrathecal uptake. At this point, a total of 0.5cc including a mixture of 0.25cc Marcaine and 0.25cc betamethasone was injected without complication into each of the corresponding facet joints. The patient tolerated the procedure well without signs or symptoms of complications prior to transfer to the recovery area continued monitoring without incident. The patient was then transferred to the recovery area where they were observed for an appropriate period of time after the injection. The patient reported a VAS score of 7 prior to the procedure and a post- procedure VAS of 0. POST OP INSTRUCTIONS The patient was provided a Pain Log to continue to record their response to the target-specific procedure prior to follow-up visit with their referring physician. Additionally, specific post-injection care instructions and a contact number to our office were provided if concerns arise regarding possible complications associated with the procedure are suspected.
== END 2020-10-21 14:48 | disposition home or self-care (01) ==
LOC: RAD 13:18
PROVIDERS: Family Provider Family Medicine; PCP Family Medicine; Referring Provider Physical Medicine & Rehabilitation; Visit Provider Physical Medicine & Rehabilitation
DX: M47.816 Spondylosis without myelopathy or radiculopathy, lumbar region (principal); M47.817 Spondylosis without myelopathy or radiculopathy, lumbosacral region; M51.36 Other intervertebral disc degeneration, lumbar region; M51.37 Other intervertebral disc degeneration, lumbosacral region; M54.5 Low back pain
CPT/HCPCS: 64493; 64494; 99152; J0702; J2250; J3010

== ENCOUNTER → 2021-01-17 08:27 | Outpatient (CLI) | payer MEDICARE, OTHER, SELFPAY ==
[2021-01-17 13:56] LABS: COVID19 -Nasal RAPID Negative (Negative)
== END ==
PROVIDERS: Family Provider Family Medicine; PCP Family Medicine; Visit Provider Physical Medicine & Rehabilitation
DX: Z20.822 Contact with and (suspected) exposure to COVID-19 (principal)
CPT/HCPCS: 87635; C9803

== ENCOUNTER 2021-01-18 12:36 | Outpatient (CLI) | payer MEDICARE, OTHER, SELFPAY ==
[2021-01-18] VITALS (9 sets, daily range): BP systolic 124–178; BP diastolic 61–84; PULSE 69–87; RESP 16–20; TEMP 36.9; O2SAT 96–99
--- NOTE | 2021-01-18 12:38 | DI.RAD.S_ITS ---
PROCEDURE: PAIN L/S TRANSFORAMINAL INJECT INDICATIONS: SPONDYLOSIS COMPARISON: [facility], XA, PAIN L/S FACET INJ/BLK 1ST LEÓN, 10/21/2020, 14:19. FINDINGS: Fluoroscopic spot filming was performed to verify placement of a spinal needle on the left at the L4-L5 level, as labeled on the films. Appropriate location of the needle tip was confirmed by injection of iodinated contrast. IMPRESSION: Intraprocedural examination within normal limits. Dictated by: Arron Coleman M.D. on 01/18/2021 at 13:31 Approved by: Arron Coleman M.D. on 01/18/2021 at 13:31
[2021-01-18] MEDS: MIDAZOLAM 5 MG/5 ML VIAL IV (13:49)
[2021-01-18] MEDS: BUPIVACAINE 0.25% (PF) VIAL 2 ML INJ (13:54)
[2021-01-18] MEDS: BETAMETHASONE 30 MG/5 ML MDV 12 MG INJ (13:54)
[2021-01-18] MEDS: DEXAMETHASONE 10 MG/ML VIAL 20 MG INJ (13:54)
[2021-01-18] MEDS: IOPAMIDOL 15 ML VIAL 3 ML INJ (13:54)
--- NOTE | 2021-01-18 14:05 | P.PCN_ITS ---
Date/Time/Diagnoses Date of procedure: 01/18/21 Time of procedure: 14:05 Pre-procedure diagnosis: 1. FORAMINAL STENOSIS WITH LE SYMPTOMS Post-procedure diagnosis: same Procedure Notes Procedure: 1. FLUOROSCOPICALLY GUIDED CONTRAST CONTROLLED TRANSFORAMINAL EPIDURAL STEROID INJECTION - LEFT L4/5 Indications: tSacey is referred by Dr. Sheridan for treatment of Foraminal Stenosis with Left LE Symptoms Physician: Al Kunz Total Fluoroscopy time (seconds): 14 Total sedation minutes: 12 Complications: none Procedure in detail & Post-procedure care: FINDINGS Foraminal Nerve Root Compression secondary to disc disease and facet hypertrophy DESCRIPTION OF PROCEDURE Following review of allergy and review of potential side effects and complications, including, but not necessarily limited to, infection, allergic reaction, local tissue breakdown, stroke, temporary or permanent nerve injury, paralysis, and possible , the patient indicated that the patient understood and agreed to proceed. An informed consent document was signed by the patient, witnessed by a nurse, and placed in the patient's chart. Additionally, other treatment options including medications, modalities, and physical therapy were reviewed with the patient. After review of previous anaesthesic history and IV conscious sedation the patient was deemed safe to proceed with today?s procedure with IV conscious sedation as ASA class II designation. Safety time-out was performed to confirm patient ID, procedure to be performed and site of procedure. IV sedation was accomplished with a combination of 2mg of Versed administered by the RN after DO order, titrated to patient comfort during the course of the procedure while the patient remained responsive to all verbal commands In the prone position following sterile prep and drape of the lumbar region, the left L4/5 posterior neuroforamen was identified fluoroscopically. The skin was anesthetized via a 25-gauge 1.5-inch needle with 1% lidocaine solution. At this point, a 25-gauge 3.5-inch spinal needle was atraumatically introduced and advanced under fluoroscopic guidance through the posterior left L4/5 neuroforamen to approximately the anterior aspect of the canal. Depth was confirmed on lateral view. Following negative aspiration, injection of approximately 1.5 cc of Isovue 200 under live fluoroscopy in the AP view confirmed excellent flow along the nerve root, into the epidural space without vascular or intrathecal uptake observed Radiological data, including multiple fluoroscopic views of the lumbosacral spine, reveal a spinal needle at the left L4/5 posterior neuroforamen. Subsequent views show flow of contrast material flowing superiorly and inferiorly along the nerve root confirming epidural flow. Subsequently, a test dose of 1.5cc of 1% lidocaine solution was administered and patient was observed for two minutes for signs or symptoms of complications, including abdominal pain, shortness of breath, bilateral upper or lower extremity weakness, nausea and vomiting, prior to steroid injection. At this point, a total of 4cc or 20mg of dexamethasone and 12mg of betamethasone was injected without incident. The procedure tolerated the procedure well without signs or symptoms of complications prior to transfer to the recovery area continued monitoring without incident. The patient was then transferred to the recovery area where they were observed for an appropriate time after the injection. The patient reported a VAS score of 7 prior to the procedure and a post- procedure VAS of 0. POST OP INSTRUCTIONS The patient was provided a Pain Log to continue to record their response to the target-specific procedure prior to follow-up visit with their referring physician. Additionally, specific post-injection care instructions and a contact number to our office were provided if concerns arise regarding possible complications associated with the procedure are suspected.
== END 2021-01-18 14:24 | disposition home or self-care (01) ==
LOC: RAD 12:38
PROVIDERS: Family Provider Family Medicine; PCP Family Medicine; Referring Provider Physical Medicine & Rehabilitation; Visit Provider Physical Medicine & Rehabilitation
DX: M48.061 Spinal stenosis, lumbar region without neurogenic claudication (principal); M51.16 Intervertebral disc disorders with radiculopathy, lumbar region
CPT/HCPCS: 64483; 99152; J0702; J1100; J2250

== ENCOUNTER → 2021-02-11 13:41 | Outpatient (CLI) | payer MEDICARE, OTHER, SELFPAY ==
[2021-02-11] MEDS: COVID-19 VACC #3, MRNA(MOD) 50 MCG/0.25 ML VIAL IM (13:56)
== END ==
PROVIDERS: Family Provider Family Medicine; PCP Family Medicine; Visit Provider Internal Medicine
DX: Z23 Encounter for immunization (principal)
CPT/HCPCS: 0013A; 91301

== ENCOUNTER 2021-02-17 15:15 | Outpatient (RCR) | payer MEDICARE, OTHER, SELFPAY ==
--- NOTE | 2020-12-13 15:02 | PT.OIE ---
Current Diagnoses Unsteadiness on feet (12/13/20) Unspecified lack of coordination (12/13/20) Past Medical History (Last Reviewed 09/27/20 @ 16:37 by Al Kunz DO) Facet arthropathy, lumbar Gait instability H/O bladder repair surgery Lumbar radiculopathy Multilevel foraminal stenosis Scoliosis Past Surgical History (Last Reviewed 09/27/20 @ 16:37 by Al Kunz DO) H/O bladder repair surgery Visit Care Team Role Provider Type Jia Sheridan MD Attending Provider Physician Family Provider Primary Care Provider Referring Provider Specialty: Family Practice Address: [address] [place] [address], [facility] Email: [email or web address] [facility] Initial Evaluation PT-OP-A Visit Information Start: 12/13/20 14:37 Freq: Status: Active Protocol: Document 12/13/20 13:45 DCW (Rec: 12/13/20 14:51 DCW [id number]) Out-Patient Physical Therapy Visit Information Visit Information Visit Type Initial Evaluation Visit Start Time 13:45 Visit Stop Time 14:30 Total Visit Minutes 45 Visit Number 1 Number of HOME THEATER EXPERIENCE EXPERT Visits 0 Evaluation Information Evaluation Date 12/13/20 PT-OP-B Current Condition Start: 12/13/20 14:37 Freq: Status: Active Protocol: Document 12/13/20 13:45 DCW (Rec: 12/13/20 14:51 DC [id number]) Current Condition History of Current Condition Onset Date Long-standing history Current Complaints Worsening balance History of Current Condition Pt is an 85 year old female well known to this clinic after multiple courses of rehab over the last few years, presenting today with complaints of worsening balance. Pt reports she has been experiencing increased difficulty with being out walking in her yard, difficulty walking up driveways, and feels like her left leg has been getting weaker. Pt has had multiple falls over the last year, most involved tripping over holes or dips in her yard. 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 PT-OP-C Subjective Start: 12/13/20 14:37 Freq: Status: Active Protocol: Document 12/13/20 13:45 DCW (Rec: 12/13/20 14:51 [facility] [id number]) OP-PT Subjective Patient Comments Patient Comments I'd be doing pretty well if I could stand up without falling over. Patient Reported Progress Worse Patient Questionnaires ABC- Activity Specific Balance Confidence Scale ABC Score 25% ABC Functional Impairment 60 to <80% Impaired (Score 21- 40) PT-OP-D Balance Start: 12/13/20 14:37 Freq: Status: Active Protocol: Document 12/13/20 13:45 DCW (Rec: 12/13/20 14:51 [facility] [id number]) OP-PT Balance Assessment Sitting Balance Static Sitting Balance Ability Good Dynamic Sitting Balance Ability Good Standing Balance Static Standing Balance Ability Fair Dynamic Standing Balance Ability Poor Device Used SPC Balance Tests Yanez Balance Test Yanez Balance Test Score 30/56 Yanez Impairment Rating 40 to 59% Impaired (Score 23- 33) Yanez Balance Assessment Evaluation Sitting to Standing Ability Several Tries w/Hands Unsupported Stance Safely- 2 minutes Sitting Unsupported, Feet on Floor Safely- 2 minutes Standing to Sitting Ability Assist, Control w/Hands Transfer Ability Safely, Hand Use Unsupported Stance- Eyes Closed Supervision, 10 seconds Unsupported Stance- Eyes Open Supervision to maintain Reaching Forward Standing Safely, 2 inches Pick- Up Object From Floor Requires Assistance Look Behind Shoulder - Standing Supervision w/Turning Turning 360 Degrees Supervision/Verbal Cues Unsupported Stance, Alternating Feet on 2 Steps w/Minimum Assist Stair Unsupported Tandem Stance Small Step- 30 seconds Unilateral Leg Stance Lifts Leg/Unable to Hold Total Score Yanez Total Score (out of 56 points) 30 Yanez Impairment Rating 40 to 59% Impaired (Score 23- 33) Mensah Fall Scale Copyright Permission PT-OP-E Functional Tests Start: 12/13/20 14:37 Freq: Status: Active Protocol: Document 12/13/20 13:45 DCW (Rec: 12/13/20 14:51 [facility] [id number]) Functional Tests Dynamic Gait Index (DGI) Score 12/24 Timed Up and Go (TUG) Score 27.28 /c SPC Comments 3-trial average (28.41, 26.21 , 27.22) PT-OP-G Mobility & Gait Start: 12/13/20 14:37 Freq: Status: Active Protocol: Document 12/13/20 13:45 DCW (Rec: 12/13/20 14:51 [facility] [id number]) OP Gait Assessment Gait Gait Assistance Required: Independent Assistive Devices Assistive Device Straight Cane Gait Deviations General Gait Pattern Decreased Stride Length, Decreased Feet Clearance, Flexed Trunk,Wide Based Gait Factors Limiting Gait Function Factors Limiting Gait Function Decreased Strength,Limited Range of Motion,Poor Balance Stair Climbing Evaluation Evaluation Level of Assist On Stairs Contact Guard Assistance Devices Stair Climbing Assistive Devices Left Railing,Right Railing Technique/Endurance Stair Climbing Direction Ascend and Descend Stair Climbing Technique Step to Step PT-OP-M Strength Start: 12/13/20 14:37 Freq: Status: Active Protocol: Document 12/13/20 13:45 DCW (Rec: 12/13/20 14:51 [facility] [id number]) Hip Strength Hip Manual Muscle Testing Right Flexion (L2) 4- Good- Extension (S1) 4 Good Abduction 3+ Fair+ Adduction 3+ Fair+ External Rotation 4 Good Internal Rotation 4- Good- Left Flexion (L2) 3+ Fair+ Extension (S1) 4- Good- Abduction 3+ Fair+ Adduction 3+ Fair+ External Rotation 4- Good- Internal Rotation 3+ Fair+ Knee Strength Knee Manual Muscle Testing Right Flexion (S2) 4 Good Extension (L3) 4 Good Left Flexion (S2) 4- Good- Extension (L3) 4- Good- PT-OP-T Assessment and Plan Start: 12/13/20 14:37 Freq: Status: Active Protocol: Document 12/13/20 13:45 DCW (Rec: 12/13/20 15:02 [facility] [id number]) Physical Therapy Assessment Rehab Potential Rehabilitation Potential Fair Evaluation Complexity Number of Personal Factors/Comorbidities 3 or More Number of Body Systems Impaired 3 Clinical Presentation at Evaluation Unstable Impairments Impairments Activity Tolerance,Balance, Coordination,Functional Activities,Functional Mobility ,Gait,Posture,ROM,Strength Other Concerns Fall Risk Yes, per Yanez (30) DGI () and TUG (27.28) scores Goals Three Impairment Pt in an increased falls risk per Yanez, TUG, and DGI scores Short Term Goal (STG) Pt to improve TUG score by at least 7 seconds to <20 show decreased falls risk STG Duration 01/24/21 Care Home Goal (LTG) Pt to improve Yanez score by at least 8 points to 38/56 in order to demonstrate improved falls risk. LTG Duration 03/14/21 Two Impairment Pt exhibits LE weakness, L>R, which impacts righting reactions Care Home Goal (LTG) Pt to demonstrate LE MMT of at worst 4/5 in all planes bilaterally LTG Duration 03/14/21 One Impairment Pt does not have an appropriate Home Exercise Program Short Term Goal (STG) Pt to be independent and compliant with an appropriate HEP STG Duration 01/24/21 Assessment Summary Assessment Pt presents with significant decline in balance since she was last seen in Physical Therapy four months ago. In that time, her DGI has declined from 17/24 to 12/24, and her Yanez has declined from 46/56 to 30/56, putting her into an increased falls risk category. Lower extremity weakness, L>R, may be the cause of some of this worsening balance, however she does appear to be demonstrating a fairly significant global functional decline. Pt should benefit from skilled therapy focusing on balance training, gait training, and LE strengthening . Physical Therapy Plan Frequency and Duration Frequency of Treatment 2x/Week Duration of Treatment Three months Plan of Care Start Date 12/13/20 Plan of Care End Date 03/14/21 Therapeutic Interventions Therapeutic Interventions Balance Training,Coordination Training,Gait Training,Home Exercise Program,Neuromuscular Re-education,Patient/ Caregiver Education,Self-Care/ Home Management,Therapeutic Activities,Therapeutic Exercises Modalities Cold Pack/Ice Massage,Electric Stimulation,Hot Packs, Ultrasound Next Visit Focus/Plan Next Note Type Treatment Note Next Visit Plan Balance training, LE strengthening, gait training
--- NOTE | 2020-12-13 15:03 | PT.OPPOC ---
Physical, Occupational & Speech Therapy At [facility] Current Diagnoses Unsteadiness on feet (12/13/20) Unspecified lack of coordination (12/13/20) Visit Care Team Role Provider Type Jia Sheridan MD Attending Provider Physician Family Provider Primary Care Provider Referring Provider Specialty: [facility] Practice Address: [address] [place] [address], [place], [place], [facility] Email: [email or web address] Plan Of Care PT-OP-T Assessment and Plan Start: 12/13/20 14:37 Freq: Status: Active Protocol: Document 12/13/20 13:45 DCW (Rec: 12/13/20 15:02 DCW [id number]) Physical Therapy Assessment Rehab Potential Rehabilitation Potential Fair Evaluation Complexity Number of Personal Factors/Comorbidities 3 or More Number of Body Systems Impaired 3 Clinical Presentation at Evaluation Unstable Impairments Impairments Activity Tolerance,Balance, Coordination,Functional Activities,Functional Mobility ,Gait,Posture,ROM,Strength Other Concerns Fall Risk Yes, per Yanez (30/56) DGI () and TUG (27.28) scores Goals Three Impairment Pt in an increased falls risk per Yanez, TUG, and DGI scores Short Term Goal (STG) Pt to improve TUG score by at least 7 seconds to <20 show decreased falls risk STG Duration 01/24/21 Animal Attendants And Trainers Goal (LTG) Pt to improve Yanez score by at least 8 points to 38/56 in order to demonstrate improved falls risk. LTG Duration 03/14/21 Two Impairment Pt exhibits LE weakness, L>R, which impacts righting reactions [facility]ci Goal (LTG) Pt to demonstrate LE MMT of at worst 4/5 in all planes bilaterally LTG Duration 03/14/21 One Impairment Pt does not have an appropriate Home Exercise Program Short Term Goal (STG) Pt to be independent and compliant with an appropriate HEP STG Duration 01/24/21 Assessment Summary Assessment Pt presents with significant decline in balance since she was last seen in Physical Therapy four months ago. In that time, her DGI has declined from 17/24 to 12/24, and her Yanez has declined from 46/56 to 30/56, putting her into an increased falls risk category. Lower extremity weakness, L>R, may be the cause of some of this worsening balance, however she does appear to be demonstrating a fairly significant global functional decline. Pt should benefit from skilled therapy focusing on balance training, gait training, and LE strengthening . Physical Therapy Plan Frequency and Duration Frequency of Treatment 2x/Week Duration of Treatment Three months Plan of Care Start Date 12/13/20 Plan of Care End Date 03/14/21 Therapeutic Interventions Therapeutic Interventions Balance Training,Coordination Training,Gait Training,Home Exercise Program,Neuromuscular Re-education,Patient/ Caregiver Education,Self-Care/ Home Management,Therapeutic Activities,Therapeutic Exercises Modalities Cold Pack/Ice Massage,Electric Stimulation,Hot Packs, Ultrasound Next Visit Focus/Plan Next Note Type Treatment Note Next Visit Plan Balance training, LE strengthening, gait training Plan of Care Dates Plan of Care Start Date 12/13/20 Plan of Care End Date 03/14/21 Electronically Signed by: Wallace Wilson, PT 12/13/20 [id number] Please Sign and Return: I have reviewed this Plan of Care and certify that the skilled therapy services above are required to meet the patient?s needs. Physician Signature Date Printed Name and Credentials Clinical Instructor Signature Printed Name and Credentials
--- NOTE | 2020-12-16 16:03 | PT.OTN ---
Current Diagnoses Unsteadiness on feet (12/16/20) Unspecified lack of coordination (12/16/20) Physical Therapy Treatment Note PT-OP-A Visit Information Start: 12/13/20 14:37 Freq: Status: Active Protocol: Document 12/16/20 15:21 DCW (Rec: 12/16/20 16:02 RIW [id number]) Out-Patient Physical Therapy Visit Information Visit Information Visit Type Treatment Note Visit Start Time 15:21 Visit Stop Time 16:00 Total Visit Minutes 39 Visit Number 2 Number of DRILLING FLUIDS SPECIALIST Visits 0 Evaluation Information Evaluation Date 12/13/20 PT-OP-B Current Condition Start: 12/13/20 14:37 Freq: Status: Active Protocol: Document 12/13/20 13:45 DCW (Rec: 12/13/20 14:51 DCW [id number]) Current Condition History of Current Condition Onset Date Long-standing history Current Complaints Worsening balance History of Current Condition Pt is an 85 year old female well known to this clinic after multiple courses of rehab over the last few years, presenting today with complaints of worsening balance. Pt reports she has been experiencing increased difficulty with being out walking in her yard, difficulty walking up driveways, and feels like her left leg has been getting weaker. Pt has had multiple falls over the last year, most involved tripping over holes or dips in her yard. 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 PT-OP-C Subjective Start: 12/13/20 14:37 Freq: Status: Active Protocol: Document 12/16/20 15:21 DCW (Rec: 12/16/20 16:03 DCW [id number]) OP-PT Subjective Patient Comments Patient Comments Pt reports she is doing pretty well today. PT-OP-D Balance Start: 12/13/20 14:37 Freq: Status: Active Protocol: Document 12/13/20 13:45 DCW (Rec: 12/13/20 14:51 DCW [id number]) OP-PT Balance Assessment Sitting Balance Static Sitting Balance Ability Good Dynamic Sitting Balance Ability Good Standing Balance Static Standing Balance Ability Fair Dynamic Standing Balance Ability Poor Device Used SPC Balance Tests Yanez Balance Test Yanez Balance Test Score 30/56 Yanez Impairment Rating 40 to 59% Impaired (Score 23- 33) Yanez Balance Assessment Evaluation Sitting to Standing Ability Several Tries w/Hands Unsupported Stance Safely- 2 minutes Sitting Unsupported, Feet on Floor Safely- 2 minutes Standing to Sitting Ability Assist, Control w/Hands Transfer Ability Safely, Hand Use Unsupported Stance- Eyes Closed Supervision, 10 seconds Unsupported Stance- Eyes Open Supervision to maintain Reaching Forward Standing Safely, 2 inches Pick- Up Object From Floor Requires Assistance Look Behind Shoulder - Standing Supervision w/Turning Turning 360 Degrees Supervision/Verbal Cues Unsupported Stance, Alternating Feet on 2 Steps w/Minimum Assist Stair Unsupported Tandem Stance Small Step- 30 seconds Unilateral Leg Stance Lifts Leg/Unable to Hold Total Score Yanez Total Score (out of 56 points) 30 Yanez Impairment Rating 40 to 59% Impaired (Score 23- 33) Mensah Fall Scale Copyright Permission PT-OP-E Functional Tests Start: 12/13/20 14:37 Freq: Status: Active Protocol: Document 12/13/20 13:45 DCW (Rec: 12/13/20 14:51 [id number] Functional Tests Dynamic Gait Index (DGI) Score 03/25 Timed Up and Go (TUG) Score 27.28 /c SPC Comments 3-trial average (28.41, 26.21 , 27.22) PT-OP-G Mobility & Gait Start: 12/13/20 14:37 Freq: Status: Active Protocol: Document 12/13/20 13:45 DCW (Rec: 12/13/20 14:51 DC [id number]) OP Gait Assessment Gait Gait Assistance Required: Independent Assistive Devices Assistive Device Straight Cane Gait Deviations General Gait Pattern Decreased Stride Length, Decreased Feet Clearance, Flexed Trunk,Wide Based Gait Factors Limiting Gait Function Factors Limiting Gait Function Decreased Strength,Limited Range of Motion,Poor Balance Stair Climbing Evaluation Evaluation Level of Assist On Stairs Contact Guard Assistance Devices Stair Climbing Assistive Devices Left Railing,Right Railing Technique/Endurance Stair Climbing Direction Ascend and Descend Stair Climbing Technique Step to Step PT-OP-M Strength Start: 12/13/20 14:37 Freq: Status: Active Protocol: Document 12/13/20 13:45 DCW (Rec: 12/13/20 14:51 [facility] [id number]) Hip Strength Hip Manual Muscle Testing Right Flexion (L2) 4- Good- Extension (S1) 4 Good Abduction 3+ Fair+ Adduction 3+ Fair+ External Rotation 4 Good Internal Rotation 4- Good- Left Flexion (L2) 3+ Fair+ Extension (S1) 4- Good- Abduction 3+ Fair+ Adduction 3+ Fair+ External Rotation 4- Good- Internal Rotation 3+ Fair+ Knee Strength Knee Manual Muscle Testing Right Flexion (S2) 4 Good Extension (L3) 4 Good Left Flexion (S2) 4- Good- Extension (L3) 4- Good- PT-OP-Q Treatments Start: 12/13/20 14:37 Freq: Status: Active Protocol: Document 12/16/20 15:21 DCW (Rec: 12/16/20 16:02 DCW [id number]) Gym Equipment Shuttle Balance Red Details WBOS, Staggered Stance Comments Min A, wt shifting/ stationary Neuro Re-Education Treatment Balance Activities Toe-taps Details Cross body toe-taps on cones Ball pick-up/Toss Details Ball pick-up/toss Hurdles Equipment Hurdles Comments Forward SLS Details SLS Equipment // bars Tandem Stance Details Tandem Stance Foam Stance Details EO/EC Surface Pascual PT-OP-T Assessment and Plan Start: 12/13/20 14:37 Freq: Status: Active Protocol: Document 12/16/20 15:21 DCW (Rec: 12/16/20 16:02 DCW [id number]) Physical Therapy Assessment Impairments Impairments Activity Tolerance,Balance, Coordination,Functional Activities,Functional Mobility ,Gait,Posture,ROM,Strength Goals Three Impairment Pt in an increased falls risk per Yanez, TUG, and DGI scores Short Term Goal (STG) Pt to improve TUG score by at least 7 seconds to <20 show decreased falls risk STG Duration 01/24/21 Care Provider Goal (LTG) Pt to improve Yanez score by at least 8 points to 38/56 in order to demonstrate improved falls risk. LTG Duration 03/14/21 Two Impairment Pt exhibits LE weakness, L>R, which impacts righting reactions Care Provider Goal (LTG) Pt to demonstrate LE MMT of at worst 4/5 in all planes bilaterally LTG Duration 03/14/21 One Impairment Pt does not have an appropriate Home Exercise Program Short Term Goal (STG) Pt to be independent and compliant with an appropriate HEP STG Duration 01/24/21 Assessment Summary Assessment Pt did fairly well with therapy today, although noticeable difficulty with balance challenges. Physical Therapy Plan Frequency and Duration Frequency of Treatment 2x/Week Duration of Treatment Three months Plan of Care Start Date 12/13/20 Plan of Care End Date 03/14/21 Therapeutic Interventions Therapeutic Interventions Balance Training,Coordination Training,Gait Training,Home Exercise Program,Neuromuscular Re-education,Patient/ Caregiver Education,Self-Care/ Home Management,Therapeutic Activities,Therapeutic Exercises Modalities Cold Pack/Ice Massage,Electric Stimulation,Hot Packs, Ultrasound Next Visit Focus/Plan Next Note Type Treatment Note Next Visit Plan Balance training, LE strengthening, gait training
--- NOTE | 2020-12-22 16:45 | PT.OTN ---
Current Diagnoses Unsteadiness on feet (12/22/20) Unspecified lack of coordination (12/22/20) Physical Therapy Treatment Note PT-OP-A Visit Information Start: 12/13/20 14:37 Freq: Status: Active Protocol: Document 12/22/20 16:00 DCW (Rec: 12/22/20 16:45 DCW [id number]) Out-Patient Physical Therapy Visit Information Visit Information Visit Type Treatment Note Visit Start Time 16:00 Visit Stop Time 16:45 Total Visit Minutes 45 Visit Number 3 Number of BARREL INSPECTOR Visits 0 Evaluation Information Evaluation Date 12/13/20 PT-OP-B Current Condition Start: 12/13/20 14:37 Freq: Status: Active Protocol: Document 12/13/20 13:45 DCW (Rec: 12/13/20 14:51 DCW [id number]) Current Condition History of Current Condition Onset Date Long-standing history Current Complaints Worsening balance History of Current Condition Pt is an 85 year old female well known to this clinic after multiple courses of rehab over the last few years, presenting today with complaints of worsening balance. Pt reports she has been experiencing increased difficulty with being out walking in her yard, difficulty walking up driveways, and feels like her left leg has been getting weaker. Pt has had multiple falls over the last year, most involved tripping over holes or dips in her yard. 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 PT-OP-C Subjective Start: 12/13/20 14:37 Freq: Status: Active Protocol: Document 12/22/20 16:00 DCW (Rec: 12/22/20 16:45 DCW [id number]) OP-PT Subjective Patient Comments Patient Comments Pt reports she is doing fairly well today. PT-OP-D Balance Start: 12/13/20 14:37 Freq: Status: Active Protocol: Document 12/13/20 13:45 DCW (Rec: 12/13/20 14:51 DCW [id number]) OP-PT Balance Assessment Sitting Balance Static Sitting Balance Ability Good Dynamic Sitting Balance Ability Good Standing Balance Static Standing Balance Ability Fair Dynamic Standing Balance Ability Poor Device Used SPC Balance Tests Yanez Balance Test Yanez Balance Test Score 30/56 Yanez Impairment Rating 40 to 59% Impaired (Score 23- 33) Yanez Balance Assessment Evaluation Sitting to Standing Ability Several Tries w/Hands Unsupported Stance Safely- 2 minutes Sitting Unsupported, Feet on Floor Safely- 2 minutes Standing to Sitting Ability Assist, Control w/Hands Transfer Ability Safely, Hand Use Unsupported Stance- Eyes Closed Supervision, 10 seconds Unsupported Stance- Eyes Open Supervision to maintain Reaching Forward Standing Safely, 2 inches Pick- Up Object From Floor Requires Assistance Look Behind Shoulder - Standing Supervision w/Turning Turning 360 Degrees Supervision/Verbal Cues Unsupported Stance, Alternating Feet on 2 Steps w/Minimum Assist Stair Unsupported Tandem Stance Small Step- 30 seconds Unilateral Leg Stance Lifts Leg/Unable to Hold Total Score Yanez Total Score (out of 56 points) 30 Yanez Impairment Rating 40 to 59% Impaired (Score 23- 33) Mensah Fall Scale Copyright Permission PT-OP-E Functional Tests Start: 12/13/20 14:37 Freq: Status: Active Protocol: Document 12/13/20 13:45 DCW (Rec: 12/13/20 14:51 [id number] Functional Tests Dynamic Gait Index (DGI) Score 03/25 Timed Up and Go (TUG) Score 27.28 /c SPC Comments 3-trial average (28.41, 26.21 , 27.22) PT-OP-G Mobility & Gait Start: 12/13/20 14:37 Freq: Status: Active Protocol: Document 12/13/20 13:45 DCW (Rec: 12/13/20 14:51 DC [id number]) OP Gait Assessment Gait Gait Assistance Required: Independent Assistive Devices Assistive Device Straight Cane Gait Deviations General Gait Pattern Decreased Stride Length, Decreased Feet Clearance, Flexed Trunk,Wide Based Gait Factors Limiting Gait Function Factors Limiting Gait Function Decreased Strength,Limited Range of Motion,Poor Balance Stair Climbing Evaluation Evaluation Level of Assist On Stairs Contact Guard Assistance Devices Stair Climbing Assistive Devices Left Railing,Right Railing Technique/Endurance Stair Climbing Direction Ascend and Descend Stair Climbing Technique Step to Step PT-OP-M Strength Start: 12/13/20 14:37 Freq: Status: Active Protocol: Document 12/13/20 13:45 DCW (Rec: 12/13/20 14:51 ALW [id number]) Hip Strength Hip Manual Muscle Testing Right Flexion (L2) 4- Good- Extension (S1) 4 Good Abduction 3+ Fair+ Adduction 3+ Fair+ External Rotation 4 Good Internal Rotation 4- Good- Left Flexion (L2) 3+ Fair+ Extension (S1) 4- Good- Abduction 3+ Fair+ Adduction 3+ Fair+ External Rotation 4- Good- Internal Rotation 3+ Fair+ Knee Strength Knee Manual Muscle Testing Right Flexion (S2) 4 Good Extension (L3) 4 Good Left Flexion (S2) 4- Good- Extension (L3) 4- Good- PT-OP-Q Treatments Start: 12/13/20 14:37 Freq: Status: Active Protocol: Document 12/22/20 16:00 DCW (Rec: 12/22/20 16:45 DCW [id number]) Gym Equipment Shuttle Balance Red Details WBOS, Staggered Stance Comments Min A, wt shifting/ stationary Neuro Re-Education Treatment Balance Activities Toe-taps Details Cross body toe-taps on cones Ball pick-up/Toss Details Ball pick-up/toss Hurdles Equipment Hurdles Comments Forward SLS Details SLS Equipment // bars Tandem Stance Details Tandem Stance Foam Stance Details EO/EC Surface Pascual PT-OP-T Assessment and Plan Start: 12/13/20 14:37 Freq: Status: Active Protocol: Document 12/22/20 16:00 DCW (Rec: 12/22/20 16:45 DCW [id number]) Physical Therapy Assessment Impairments Impairments Activity Tolerance,Balance, Coordination,Functional Activities,Functional Mobility ,Gait,Posture,ROM,Strength Goals Three Impairment Pt in an increased falls risk per Yanez, TUG, and DGI scores Short Term Goal (STG) Pt to improve TUG score by at least 7 seconds to <20 show decreased falls risk STG Duration 01/24/21 Ict Account Manager Goal (LTG) Pt to improve Yanez score by at least 8 points to 38/56 in order to demonstrate improved falls risk. LTG Duration 03/14/21 Two Impairment Pt exhibits LE weakness, L>R, which impacts righting reactions Ict Account Manager Goal (LTG) Pt to demonstrate LE MMT of at worst 4/5 in all planes bilaterally LTG Duration 03/14/21 One Impairment Pt does not have an appropriate Home Exercise Program Short Term Goal (STG) Pt to be independent and compliant with an appropriate HEP STG Duration 01/24/21 Assessment Summary Assessment Pt tolerating treatment well, having some difficulty with SLS, EC stance, and tandem stance Physical Therapy Plan Frequency and Duration Frequency of Treatment 2x/Week Duration of Treatment Three months Plan of Care Start Date 12/13/20 Plan of Care End Date 03/14/21 Therapeutic Interventions Therapeutic Interventions Balance Training,Coordination Training,Gait Training,Home Exercise Program,Neuromuscular Re-education,Patient/ Caregiver Education,Self-Care/ Home Management,Therapeutic Activities,Therapeutic Exercises Modalities Cold Pack/Ice Massage,Electric Stimulation,Hot Packs, Ultrasound Next Visit Focus/Plan Next Note Type Treatment Note Next Visit Plan Balance training, LE strengthening, gait training
--- NOTE | 2020-12-30 12:46 | PT.OTN ---
Current Diagnoses Unsteadiness on feet (12/30/20) Unspecified lack of coordination (12/30/20) Physical Therapy Treatment Note PT-OP-A Visit Information Start: 12/13/20 14:37 Freq: Status: Active Protocol: Document 12/30/20 12:00 DCW (Rec: 12/30/20 12:46 DCW [id number]) Out-Patient Physical Therapy Visit Information Visit Information Visit Type Treatment Note Visit Start Time 12:00 Visit Stop Time 12:45 Total Visit Minutes 45 Visit Number 4 Number of [employer] Visits 0 Evaluation Information Evaluation Date 12/13/20 PT-OP-B Current Condition Start: 12/13/20 14:37 Freq: Status: Active Protocol: Document 12/13/20 13:45 DCW (Rec: 12/13/20 14:51 DCW [id number]) Current Condition History of Current Condition Onset Date Long-standing history Current Complaints Worsening balance History of Current Condition Pt is an 85 year old female well known to this clinic after multiple courses of rehab over the last few years, presenting today with complaints of worsening balance. Pt reports she has been experiencing increased difficulty with being out walking in her yard, difficulty walking up driveways, and feels like her left leg has been getting weaker. Pt has had multiple falls over the last year, most involved tripping over holes or dips in her yard. 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 PT-OP-C Subjective Start: 12/13/20 14:37 Freq: Status: Active Protocol: Document 12/30/20 12:00 DCW (Rec: 12/30/20 12:46 DCW [id number]) OP-PT Subjective Patient Comments Patient Comments Pt fairly fatigued today, dealing with a lot of medical issues regarding her . PT-OP-D Balance Start: 12/13/20 14:37 Freq: Status: Active Protocol: Document 12/13/20 13:45 DCW (Rec: 12/13/20 14:51 DCW [id number]) OP-PT Balance Assessment Sitting Balance Static Sitting Balance Ability Good Dynamic Sitting Balance Ability Good Standing Balance Static Standing Balance Ability Fair Dynamic Standing Balance Ability Poor Device Used SPC Balance Tests Yanez Balance Test Yanez Balance Test Score 30/56 Yanez Impairment Rating 40 to 59% Impaired (Score 23- 33) Yanez Balance Assessment Evaluation Sitting to Standing Ability Several Tries w/Hands Unsupported Stance Safely- 2 minutes Sitting Unsupported, Feet on Floor Safely- 2 minutes Standing to Sitting Ability Assist, Control w/Hands Transfer Ability Safely, Hand Use Unsupported Stance- Eyes Closed Supervision, 10 seconds Unsupported Stance- Eyes Open Supervision to maintain Reaching Forward Standing Safely, 2 inches Pick- Up Object From Floor Requires Assistance Look Behind Shoulder - Standing Supervision w/Turning Turning 360 Degrees Supervision/Verbal Cues Unsupported Stance, Alternating Feet on 2 Steps w/Minimum Assist Stair Unsupported Tandem Stance Small Step- 30 seconds Unilateral Leg Stance Lifts Leg/Unable to Hold Total Score Yanez Total Score (out of 56 points) 30 Yanez Impairment Rating 40 to 59% Impaired (Score 23- 33) Mensah Fall Scale Copyright Permission PT-OP-E Functional Tests Start: 12/13/20 14:37 Freq: Status: Active Protocol: Document 12/13/20 13:45 DCW (Rec: 12/13/20 14:51 DCW [id number]) Functional Tests Dynamic Gait Index (DGI) Score 03/25 Timed Up and Go (TUG) Score 27.28 /c SPC Comments 3-trial average (28.41, 26.21 , 27.22) PT-OP-G Mobility & Gait Start: 12/13/20 14:37 Freq: Status: Active Protocol: Document 12/13/20 13:45 DCW (Rec: 12/13/20 14:51 [facility] [id number]) OP Gait Assessment Gait Gait Assistance Required: Independent Assistive Devices Assistive Device Straight Cane Gait Deviations General Gait Pattern Decreased Stride Length, Decreased Feet Clearance, Flexed Trunk,Wide Based Gait Factors Limiting Gait Function Factors Limiting Gait Function Decreased Strength,Limited Range of Motion,Poor Balance Stair Climbing Evaluation Evaluation Level of Assist On Stairs Contact Guard Assistance Devices Stair Climbing Assistive Devices Left Railing,Right Railing Technique/Endurance Stair Climbing Direction Ascend and Descend Stair Climbing Technique Step to Step PT-OP-M Strength Start: 12/13/20 14:37 Freq: Status: Active Protocol: Document 12/13/20 13:45 DCW (Rec: 12/13/20 14:51 DCW [id number]) Hip Strength Hip Manual Muscle Testing Right Flexion (L2) 4- Good- Extension (S1) 4 Good Abduction 3+ Fair+ Adduction 3+ Fair+ External Rotation 4 Good Internal Rotation 4- Good- Left Flexion (L2) 3+ Fair+ Extension (S1) 4- Good- Abduction 3+ Fair+ Adduction 3+ Fair+ External Rotation 4- Good- Internal Rotation 3+ Fair+ Knee Strength Knee Manual Muscle Testing Right Flexion (S2) 4 Good Extension (L3) 4 Good Left Flexion (S2) 4- Good- Extension (L3) 4- Good- PT-OP-Q Treatments Start: 12/13/20 14:37 Freq: Status: Active Protocol: Document 12/30/20 12:00 DCW (Rec: 12/30/20 12:46 DCW [id number]) Gym Equipment Shuttle Balance Red Details WBOS (EO/EC), Staggered Stance Comments Min A, wt shifting/ stationary Neuro Re-Education Treatment Balance Activities Toe-taps Details Cross body toe-taps on cones Ball pick-up/Toss Details Ball pick-up/toss Hurdles Equipment Hurdles Comments Forward SLS Details SLS Equipment // bars Tandem Stance Details Tandem Stance Foam Stance Details EO/EC Surface Pascual PT-OP-T Assessment and Plan Start: 12/13/20 14:37 Freq: Status: Active Protocol: Document 12/30/20 12:00 DCW (Rec: 12/30/20 12:46 DCW [id number]) Physical Therapy Assessment Impairments Impairments Activity Tolerance,Balance, Coordination,Functional Activities,Functional Mobility ,Gait,Posture,ROM,Strength Goals Three Impairment Pt in an increased falls risk per Yanez, TUG, and DGI scores Short Term Goal (STG) Pt to improve TUG score by at least 7 seconds to <20 show decreased falls risk STG Duration 01/24/21 Penitentiary Goal (LTG) Pt to improve Yanez score by at least 8 points to 38/56 in order to demonstrate improved falls risk. LTG Duration 03/14/21 Two Impairment Pt exhibits LE weakness, L>R, which impacts righting reactions Penitentiary Goal (LTG) Pt to demonstrate LE MMT of at worst 4/5 in all planes bilaterally LTG Duration 03/14/21 One Impairment Pt does not have an appropriate Home Exercise Program Short Term Goal (STG) Pt to be independent and compliant with an appropriate HEP STG Duration 01/24/21 Assessment Summary Assessment Pt required a few short rest breaks, but is otherwise doing pretty well with her balance training. Physical Therapy Plan Frequency and Duration Frequency of Treatment 2x/Week Duration of Treatment Three months Plan of Care Start Date 12/13/20 Plan of Care End Date 03/14/21 Therapeutic Interventions Therapeutic Interventions Balance Training,Coordination Training,Gait Training,Home Exercise Program,Neuromuscular Re-education,Patient/ Caregiver Education,Self-Care/ Home Management,Therapeutic Activities,Therapeutic Exercises Modalities Cold Pack/Ice Massage,Electric Stimulation,Hot Packs, Ultrasound Next Visit Focus/Plan Next Note Type Treatment Note Next Visit Plan Balance training, LE strengthening, gait training
--- NOTE | 2021-01-04 16:01 | PT.OTN ---
Current Diagnoses Unsteadiness on feet (01/04/21) Unspecified lack of coordination (01/04/21) Physical Therapy Treatment Note PT-OP-A Visit Information Start: 12/13/20 14:37 Freq: Status: Active Protocol: Document 01/04/21 15:28 DCW (Rec: 01/04/21 16:00 DCW [id number]) Out-Patient Physical Therapy Visit Information Visit Information Visit Type Treatment Note Visit Start Time 12:00 Visit Stop Time 12:45 Total Visit Minutes 45 Visit Number 5 Number of SKEIN YARN DYER Visits 0 Evaluation Information Evaluation Date 12/13/20 PT-OP-B Current Condition Start: 12/13/20 14:37 Freq: Status: Active Protocol: Document 12/13/20 13:45 DCW (Rec: 12/13/20 14:51 DCW [id number]) Current Condition History of Current Condition Onset Date Long-standing history Current Complaints Worsening balance History of Current Condition Pt is an 85 year old female well known to this clinic after multiple courses of rehab over the last few years, presenting today with complaints of worsening balance. Pt reports she has been experiencing increased difficulty with being out walking in her yard, difficulty walking up driveways, and feels like her left leg has been getting weaker. Pt has had multiple falls over the last year, most involved tripping over holes or dips in her yard. 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 PT-OP-C Subjective Start: 12/13/20 14:37 Freq: Status: Active Protocol: Document 01/04/21 15:28 DCW (Rec: 01/04/21 16:00 DCW [id number]) OP-PT Subjective Patient Comments Patient Comments Pt apologizes for running late , got out of another appointment later than expected. PT-OP-D Balance Start: 12/13/20 14:37 Freq: Status: Active Protocol: Document 12/13/20 13:45 DCW (Rec: 12/13/20 14:51 DCW [id number]) OP-PT Balance Assessment Sitting Balance Static Sitting Balance Ability Good Dynamic Sitting Balance Ability Good Standing Balance Static Standing Balance Ability Fair Dynamic Standing Balance Ability Poor Device Used SPC Balance Tests Yanez Balance Test Yanez Balance Test Score 30/56 Yanez Impairment Rating 40 to 59% Impaired (Score 23- 33) Yanez Balance Assessment Evaluation Sitting to Standing Ability Several Tries w/Hands Unsupported Stance Safely- 2 minutes Sitting Unsupported, Feet on Floor Safely- 2 minutes Standing to Sitting Ability Assist, Control w/Hands Transfer Ability Safely, Hand Use Unsupported Stance- Eyes Closed Supervision, 10 seconds Unsupported Stance- Eyes Open Supervision to maintain Reaching Forward Standing Safely, 2 inches Pick- Up Object From Floor Requires Assistance Look Behind Shoulder - Standing Supervision w/Turning Turning 360 Degrees Supervision/Verbal Cues Unsupported Stance, Alternating Feet on 2 Steps w/Minimum Assist Stair Unsupported Tandem Stance Small Step- 30 seconds Unilateral Leg Stance Lifts Leg/Unable to Hold Total Score Yanez Total Score (out of 56 points) 30 Yanez Impairment Rating 40 to 59% Impaired (Score 23- 33) Mensah Fall Scale Copyright Permission PT-OP-E Functional Tests Start: 12/13/20 14:37 Freq: Status: Active Protocol: Document 12/13/20 13:45 DCW (Rec: 12/13/20 14:51 DCW [id number]) Functional Tests Dynamic Gait Index (DGI) Score 03/25 Timed Up and Go (TUG) Score 27.28 /c SPC Comments 3-trial average (28.41, 26.21 , 27.22) PT-OP-G Mobility & Gait Start: 12/13/20 14:37 Freq: Status: Active Protocol: Document 12/13/20 13:45 DCW (Rec: 12/13/20 14:51 [facility] [id number]) OP Gait Assessment Gait Gait Assistance Required: Independent Assistive Devices Assistive Device Straight Cane Gait Deviations General Gait Pattern Decreased Stride Length, Decreased Feet Clearance, Flexed Trunk,Wide Based Gait Factors Limiting Gait Function Factors Limiting Gait Function Decreased Strength,Limited Range of Motion,Poor Balance Stair Climbing Evaluation Evaluation Level of Assist On Stairs Contact Guard Assistance Devices Stair Climbing Assistive Devices Left Railing,Right Railing Technique/Endurance Stair Climbing Direction Ascend and Descend Stair Climbing Technique Step to Step PT-OP-M Strength Start: 12/13/20 14:37 Freq: Status: Active Protocol: Document 12/13/20 13:45 DCW (Rec: 12/13/20 14:51 DCW [id number]) Hip Strength Hip Manual Muscle Testing Right Flexion (L2) 4- Good- Extension (S1) 4 Good Abduction 3+ Fair+ Adduction 3+ Fair+ External Rotation 4 Good Internal Rotation 4- Good- Left Flexion (L2) 3+ Fair+ Extension (S1) 4- Good- Abduction 3+ Fair+ Adduction 3+ Fair+ External Rotation 4- Good- Internal Rotation 3+ Fair+ Knee Strength Knee Manual Muscle Testing Right Flexion (S2) 4 Good Extension (L3) 4 Good Left Flexion (S2) 4- Good- Extension (L3) 4- Good- PT-OP-Q Treatments Start: 12/13/20 14:37 Freq: Status: Active Protocol: Document 01/04/21 15:28 DCW (Rec: 01/04/21 16:00 DCW [id number]) Gym Equipment Shuttle Balance Red Details WBOS (EO/EC), Staggered Stance Comments Min A, wt shifting/ stationary Neuro Re-Education Treatment Balance Activities Ball pick-up/Toss Details Ball pick-up/toss Hurdles Equipment Hurdles Comments Forward SLS Details SLS Equipment // bars PT-OP-T Assessment and Plan Start: 12/13/20 14:37 Freq: Status: Active Protocol: Document 01/04/21 15:28 DCW (Rec: 01/04/21 16:00 DCW [id number]) Physical Therapy Assessment Impairments Impairments Activity Tolerance,Balance, Coordination,Functional Activities,Functional Mobility ,Gait,Posture,ROM,Strength Goals Three Impairment Pt in an increased falls risk per Yanez, TUG, and DGI scores Short Term Goal (STG) Pt to improve TUG score by at least 7 seconds to <20 show decreased falls risk STG Duration 01/24/21 Skilled Nursing Goal (LTG) Pt to improve Yanez score by at least 8 points to 38/56 in order to demonstrate improved falls risk. LTG Duration 03/14/21 Two Impairment Pt exhibits LE weakness, L>R, which impacts righting reactions Clinical Abstractor Goal (LTG) Pt to demonstrate LE MMT of at worst 4/5 in all planes bilaterally LTG Duration 03/14/21 One Impairment Pt does not have an appropriate Home Exercise Program Short Term Goal (STG) Pt to be independent and compliant with an appropriate HEP STG Duration 01/24/21 Assessment Summary Assessment Pt fatigued today, rushed due to running late, but tolerated treatment well. Physical Therapy Plan Frequency and Duration Frequency of Treatment 2x/Week Duration of Treatment Three months Plan of Care Start Date 12/13/20 Plan of Care End Date 03/14/21 Therapeutic Interventions Therapeutic Interventions Balance Training,Coordination Training,Gait Training,Home Exercise Program,Neuromuscular Re-education,Patient/ Caregiver Education,Self-Care/ Home Management,Therapeutic Activities,Therapeutic Exercises Modalities Cold Pack/Ice Massage,Electric Stimulation,Hot Packs, Ultrasound Next Visit Focus/Plan Next Note Type Treatment Note Next Visit Plan Balance training, LE strengthening, gait training
--- NOTE | 2021-01-06 16:01 | PT.OTN ---
Current Diagnoses Unsteadiness on feet (01/06/21) Unspecified lack of coordination (01/06/21) Physical Therapy Treatment Note PT-OP-A Visit Information Start: 12/13/20 14:37 Freq: Status: Active Protocol: Document 01/06/21 15:15 DCW (Rec: 01/06/21 16:01 ILW [id number]) Out-Patient Physical Therapy Visit Information Visit Information Visit Type Treatment Note Visit Start Time 15:15 Visit Stop Time 16:00 Total Visit Minutes 45 Visit Number 6 Number of CERTIFIED PEDIATRIC NURSE PRACTITIONER Visits 0 Evaluation Information Evaluation Date 12/13/20 PT-OP-B Current Condition Start: 12/13/20 14:37 Freq: Status: Active Protocol: Document 12/13/20 13:45 DCW (Rec: 12/13/20 14:51 DCW [id number]) Current Condition History of Current Condition Onset Date Long-standing history Current Complaints Worsening balance History of Current Condition Pt is an 85 year old female well known to this clinic after multiple courses of rehab over the last few years, presenting today with complaints of worsening balance. Pt reports she has been experiencing increased difficulty with being out walking in her yard, difficulty walking up driveways, and feels like her left leg has been getting weaker. Pt has had multiple falls over the last year, most involved tripping over holes or dips in her yard. 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 PT-OP-C Subjective Start: 12/13/20 14:37 Freq: Status: Active Protocol: Document 01/06/21 15:15 DCW (Rec: 01/06/21 16:01 DCW [id number]) OP-PT Subjective Patient Comments Patient Comments Pt feeling pretty good today. PT-OP-D Balance Start: 12/13/20 14:37 Freq: Status: Active Protocol: Document 12/13/20 13:45 DCW (Rec: 12/13/20 14:51 DCW [id number]) OP-PT Balance Assessment Sitting Balance Static Sitting Balance Ability Good Dynamic Sitting Balance Ability Good Standing Balance Static Standing Balance Ability Fair Dynamic Standing Balance Ability Poor Device Used SPC Balance Tests Yanez Balance Test Yanez Balance Test Score 30/56 Yanez Impairment Rating 40 to 59% Impaired (Score 23- 33) Yanez Balance Assessment Evaluation Sitting to Standing Ability Several Tries w/Hands Unsupported Stance Safely- 2 minutes Sitting Unsupported, Feet on Floor Safely- 2 minutes Standing to Sitting Ability Assist, Control w/Hands Transfer Ability Safely, Hand Use Unsupported Stance- Eyes Closed Supervision, 10 seconds Unsupported Stance- Eyes Open Supervision to maintain Reaching Forward Standing Safely, 2 inches Pick- Up Object From Floor Requires Assistance Look Behind Shoulder - Standing Supervision w/Turning Turning 360 Degrees Supervision/Verbal Cues Unsupported Stance, Alternating Feet on 2 Steps w/Minimum Assist Stair Unsupported Tandem Stance Small Step- 30 seconds Unilateral Leg Stance Lifts Leg/Unable to Hold Total Score Yanez Total Score (out of 56 points) 30 Yanez Impairment Rating 40 to 59% Impaired (Score 23- 33) Mensah Fall Scale Copyright Permission PT-OP-E Functional Tests Start: 12/13/20 14:37 Freq: Status: Active Protocol: Document 12/13/20 13:45 DCW (Rec: 12/13/20 14:51 [id number] Functional Tests Dynamic Gait Index (DGI) Score 03/25 Timed Up and Go (TUG) Score 27.28 /c SPC Comments 3-trial average (28.41, 26.21 , 27.22) PT-OP-G Mobility & Gait Start: 12/13/20 14:37 Freq: Status: Active Protocol: Document 12/13/20 13:45 DCW (Rec: 12/13/20 14:51 [facility] [id number]) OP Gait Assessment Gait Gait Assistance Required: Independent Assistive Devices Assistive Device Straight Cane Gait Deviations General Gait Pattern Decreased Stride Length, Decreased Feet Clearance, Flexed Trunk,Wide Based Gait Factors Limiting Gait Function Factors Limiting Gait Function Decreased Strength,Limited Range of Motion,Poor Balance Stair Climbing Evaluation Evaluation Level of Assist On Stairs Contact Guard Assistance Devices Stair Climbing Assistive Devices Left Railing,Right Railing Technique/Endurance Stair Climbing Direction Ascend and Descend Stair Climbing Technique Step to Step PT-OP-M Strength Start: 12/13/20 14:37 Freq: Status: Active Protocol: Document 12/13/20 13:45 DCW (Rec: 12/13/20 14:51 [id number] Hip Strength Hip Manual Muscle Testing Right Flexion (L2) 4- Good- Extension (S1) 4 Good Abduction 3+ Fair+ Adduction 3+ Fair+ External Rotation 4 Good Internal Rotation 4- Good- Left Flexion (L2) 3+ Fair+ Extension (S1) 4- Good- Abduction 3+ Fair+ Adduction 3+ Fair+ External Rotation 4- Good- Internal Rotation 3+ Fair+ Knee Strength Knee Manual Muscle Testing Right Flexion (S2) 4 Good Extension (L3) 4 Good Left Flexion (S2) 4- Good- Extension (L3) 4- Good- PT-OP-Q Treatments Start: 12/13/20 14:37 Freq: Status: Active Protocol: Document 01/06/21 15:15 DCW (Rec: 01/06/21 16:01 DCW [id number]) Gym Equipment Shuttle Balance Red Details WBOS (EO/EC), Staggered Stance Comments Min A, wt shifting/ stationary Neuro Re-Education Treatment Balance Activities Ball pick-up/Toss Details Ball pick-up/toss Hurdles Equipment Hurdles Comments Forward, side-stepping SLS Details SLS Equipment // bars Tandem Stance Details Tandem Stance PT-OP-T Assessment and Plan Start: 12/13/20 14:37 Freq: Status: Active Protocol: Document 01/06/21 15:15 DCW (Rec: 01/06/21 16:01 DCW [id number]) Physical Therapy Assessment Impairments Impairments Activity Tolerance,Balance, Coordination,Functional Activities,Functional Mobility ,Gait,Posture,ROM,Strength Goals Three Impairment Pt in an increased falls risk per Yanez, TUG, and DGI scores Short Term Goal (STG) Pt to improve TUG score by at least 7 seconds to <20 show decreased falls risk STG Duration 01/24/21 Shelter Goal (LTG) Pt to improve Yanez score by at least 8 points to 38/56 in order to demonstrate improved falls risk. LTG Duration 03/14/21 Two Impairment Pt exhibits LE weakness, L>R, which impacts righting reactions [employer] Extra Goal (LTG) Pt to demonstrate LE MMT of at worst 4/5 in all planes bilaterally LTG Duration 03/14/21 One Impairment Pt does not have an appropriate Home Exercise Program Short Term Goal (STG) Pt to be independent and compliant with an appropriate HEP STG Duration 01/24/21 Assessment Summary Assessment Pt tolerated treatment better today, looking better on Shuttle balance, less fatigue. Physical Therapy Plan Frequency and Duration Frequency of Treatment 2x/Week Duration of Treatment Three months Plan of Care Start Date 12/13/20 Plan of Care End Date 03/14/21 Therapeutic Interventions Therapeutic Interventions Balance Training,Coordination Training,Gait Training,Home Exercise Program,Neuromuscular Re-education,Patient/ Caregiver Education,Self-Care/ Home Management,Therapeutic Activities,Therapeutic Exercises Modalities Cold Pack/Ice Massage,Electric Stimulation,Hot Packs, Ultrasound Next Visit Focus/Plan Next Note Type Treatment Note Next Visit Plan Balance training, LE strengthening, gait training
--- NOTE | 2021-01-11 16:01 | PT.OTN ---
Current Diagnoses Unsteadiness on feet (01/11/21) Unspecified lack of coordination (01/11/21) Physical Therapy Treatment Note PT-OP-A Visit Information Start: 12/13/20 14:37 Freq: Status: Active Protocol: Document 01/11/21 15:15 DCW (Rec: 01/11/21 16:01 DCW [id number]) Out-Patient Physical Therapy Visit Information Visit Information Visit Type Treatment Note Visit Start Time 15:15 Visit Stop Time 16:00 Total Visit Minutes 45 Visit Number 7 Number of EXPANDER Visits 0 Evaluation Information Evaluation Date 12/13/20 PT-OP-B Current Condition Start: 12/13/20 14:37 Freq: Status: Active Protocol: Document 12/13/20 13:45 DCW (Rec: 12/13/20 14:51 DCW [id number]) Current Condition History of Current Condition Onset Date Long-standing history Current Complaints Worsening balance History of Current Condition Pt is an 85 year old female well known to this clinic after multiple courses of rehab over the last few years, presenting today with complaints of worsening balance. Pt reports she has been experiencing increased difficulty with being out walking in her yard, difficulty walking up driveways, and feels like her left leg has been getting weaker. Pt has had multiple falls over the last year, most involved tripping over holes or dips in her yard. 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 PT-OP-C Subjective Start: 12/13/20 14:37 Freq: Status: Active Protocol: Document 01/11/21 15:15 DCW (Rec: 01/11/21 16:01 DCW [id number]) OP-PT Subjective Patient Comments Patient Comments Both my legs feel incredibly weak today, I don't know why. PT-OP-D Balance Start: 12/13/20 14:37 Freq: Status: Active Protocol: Document 12/13/20 13:45 DCW (Rec: 12/13/20 14:51 DCW [id number]) OP-PT Balance Assessment Sitting Balance Static Sitting Balance Ability Good Dynamic Sitting Balance Ability Good Standing Balance Static Standing Balance Ability Fair Dynamic Standing Balance Ability Poor Device Used SPC Balance Tests Yanez Balance Test Yanez Balance Test Score 30/56 Yanez Impairment Rating 40 to 59% Impaired (Score 23- 33) Yanez Balance Assessment Evaluation Sitting to Standing Ability Several Tries w/Hands Unsupported Stance Safely- 2 minutes Sitting Unsupported, Feet on Floor Safely- 2 minutes Standing to Sitting Ability Assist, Control w/Hands Transfer Ability Safely, Hand Use Unsupported Stance- Eyes Closed Supervision, 10 seconds Unsupported Stance- Eyes Open Supervision to maintain Reaching Forward Standing Safely, 2 inches Pick- Up Object From Floor Requires Assistance Look Behind Shoulder - Standing Supervision w/Turning Turning 360 Degrees Supervision/Verbal Cues Unsupported Stance, Alternating Feet on 2 Steps w/Minimum Assist Stair Unsupported Tandem Stance Small Step- 30 seconds Unilateral Leg Stance Lifts Leg/Unable to Hold Total Score Yanez Total Score (out of 56 points) 30 Yanez Impairment Rating 40 to 59% Impaired (Score 23- 33) Mensah Fall Scale Copyright Permission PT-OP-E Functional Tests Start: 12/13/20 14:37 Freq: Status: Active Protocol: Document 12/13/20 13:45 DCW (Rec: 12/13/20 14:51 COW [id number]) Functional Tests Dynamic Gait Index (DGI) Score 03/25 Timed Up and Go (TUG) Score 27.28 /c SPC Comments 3-trial average (28.41, 26.21 , 27.22) PT-OP-G Mobility & Gait Start: 12/13/20 14:37 Freq: Status: Active Protocol: Document 12/13/20 13:45 DCW (Rec: 12/13/20 14:51 [facility] [id number]) OP Gait Assessment Gait Gait Assistance Required: Independent Assistive Devices Assistive Device Straight Cane Gait Deviations General Gait Pattern Decreased Stride Length, Decreased Feet Clearance, Flexed Trunk,Wide Based Gait Factors Limiting Gait Function Factors Limiting Gait Function Decreased Strength,Limited Range of Motion,Poor Balance Stair Climbing Evaluation Evaluation Level of Assist On Stairs Contact Guard Assistance Devices Stair Climbing Assistive Devices Left Railing,Right Railing Technique/Endurance Stair Climbing Direction Ascend and Descend Stair Climbing Technique Step to Step PT-OP-M Strength Start: 12/13/20 14:37 Freq: Status: Active Protocol: Document 12/13/20 13:45 DCW (Rec: 12/13/20 14:51 COW [id number]) Hip Strength Hip Manual Muscle Testing Right Flexion (L2) 4- Good- Extension (S1) 4 Good Abduction 3+ Fair+ Adduction 3+ Fair+ External Rotation 4 Good Internal Rotation 4- Good- Left Flexion (L2) 3+ Fair+ Extension (S1) 4- Good- Abduction 3+ Fair+ Adduction 3+ Fair+ External Rotation 4- Good- Internal Rotation 3+ Fair+ Knee Strength Knee Manual Muscle Testing Right Flexion (S2) 4 Good Extension (L3) 4 Good Left Flexion (S2) 4- Good- Extension (L3) 4- Good- PT-OP-Q Treatments Start: 12/13/20 14:37 Freq: Status: Active Protocol: Document 01/11/21 15:15 DCW (Rec: 01/11/21 16:01 DCW [id number]) Gym Equipment Shuttle Balance Red Details WBOS (EO/EC), Staggered Stance Comments Min A, wt shifting/ stationary Neuro Re-Education Treatment Balance Activities Ball pick-up/Toss Details Ball pick-up/toss Hurdles Equipment Hurdles Comments Forward, side-stepping SLS Details SLS Equipment // bars Tandem Stance Details Tandem Stance PT-OP-T Assessment and Plan Start: 12/13/20 14:37 Freq: Status: Active Protocol: Document 01/11/21 15:15 DCW (Rec: 01/11/21 16:01 DCW [id number]) Physical Therapy Assessment Impairments Impairments Activity Tolerance,Balance, Coordination,Functional Activities,Functional Mobility ,Gait,Posture,ROM,Strength Goals Three Impairment Pt in an increased falls risk per Yanez, TUG, and DGI scores Short Term Goal (STG) Pt to improve TUG score by at least 7 seconds to <20 show decreased falls risk STG Duration 01/24/21 Supervisor [employer] Goal (LTG) Pt to improve Yanez score by at least 8 points to 38/56 in order to demonstrate improved falls risk. LTG Duration 03/14/21 Two Impairment Pt exhibits LE weakness, L>R, which impacts righting reactions Supervisor [employer] Goal (LTG) Pt to demonstrate LE MMT of at worst 4/5 in all planes bilaterally LTG Duration 03/14/21 One Impairment Pt does not have an appropriate Home Exercise Program Short Term Goal (STG) Pt to be independent and compliant with an appropriate HEP STG Duration 01/24/21 Assessment Summary Assessment Pt having a good day today with her stability, showing improved tandem stance and hurdles, still struggling with SLS. Physical Therapy Plan Frequency and Duration Frequency of Treatment 2x/Week Duration of Treatment Three months Plan of Care Start Date 12/13/20 Plan of Care End Date 03/14/21 Therapeutic Interventions Therapeutic Interventions Balance Training,Coordination Training,Gait Training,Home Exercise Program,Neuromuscular Re-education,Patient/ Caregiver Education,Self-Care/ Home Management,Therapeutic Activities,Therapeutic Exercises Modalities Cold Pack/Ice Massage,Electric Stimulation,Hot Packs, Ultrasound Next Visit Focus/Plan Next Note Type Treatment Note Next Visit Plan Balance training, LE strengthening, gait training
--- NOTE | 2021-01-13 16:01 | PT.OTN ---
Current Diagnoses Unsteadiness on feet (01/13/21) Unspecified lack of coordination (01/13/21) Physical Therapy Treatment Note PT-OP-A Visit Information Start: 12/13/20 14:37 Freq: Status: Active Protocol: Document 01/13/21 15:17 DCW (Rec: 01/13/21 16:00 DCW [id number]) Out-Patient Physical Therapy Visit Information Visit Information Visit Type Treatment Note Visit Start Time 15:17 Visit Stop Time 16:00 Total Visit Minutes 43 Visit Number 8 Number of INSTRUMENT SPECIALIST Visits 0 Evaluation Information Evaluation Date 12/13/20 PT-OP-B Current Condition Start: 12/13/20 14:37 Freq: Status: Active Protocol: Document 12/13/20 13:45 DCW (Rec: 12/13/20 14:51 DCW [id number]) Current Condition History of Current Condition Onset Date Long-standing history Current Complaints Worsening balance History of Current Condition Pt is an 85 year old female well known to this clinic after multiple courses of rehab over the last few years, presenting today with complaints of worsening balance. Pt reports she has been experiencing increased difficulty with being out walking in her yard, difficulty walking up driveways, and feels like her left leg has been getting weaker. Pt has had multiple falls over the last year, most involved tripping over holes or dips in her yard. 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 PT-OP-C Subjective Start: 12/13/20 14:37 Freq: Status: Active Protocol: Document 01/13/21 15:17 DCW (Rec: 01/13/21 16:00 DCW [id number]) OP-PT Subjective Patient Comments Patient Comments I'm still just feeling really really weak. PT-OP-D Balance Start: 12/13/20 14:37 Freq: Status: Active Protocol: Document 12/13/20 13:45 DCW (Rec: 12/13/20 14:51 DCW [id number]) OP-PT Balance Assessment Sitting Balance Static Sitting Balance Ability Good Dynamic Sitting Balance Ability Good Standing Balance Static Standing Balance Ability Fair Dynamic Standing Balance Ability Poor Device Used SPC Balance Tests Yanez Balance Test Yanez Balance Test Score 30/56 Yanez Impairment Rating 40 to 59% Impaired (Score 23- 33) Yanez Balance Assessment Evaluation Sitting to Standing Ability Several Tries w/Hands Unsupported Stance Safely- 2 minutes Sitting Unsupported, Feet on Floor Safely- 2 minutes Standing to Sitting Ability Assist, Control w/Hands Transfer Ability Safely, Hand Use Unsupported Stance- Eyes Closed Supervision, 10 seconds Unsupported Stance- Eyes Open Supervision to maintain Reaching Forward Standing Safely, 2 inches Pick- Up Object From Floor Requires Assistance Look Behind Shoulder - Standing Supervision w/Turning Turning 360 Degrees Supervision/Verbal Cues Unsupported Stance, Alternating Feet on 2 Steps w/Minimum Assist Stair Unsupported Tandem Stance Small Step- 30 seconds Unilateral Leg Stance Lifts Leg/Unable to Hold Total Score Yanez Total Score (out of 56 points) 30 Yanez Impairment Rating 40 to 59% Impaired (Score 23- 33) Mensah Fall Scale Copyright Permission PT-OP-E Functional Tests Start: 12/13/20 14:37 Freq: Status: Active Protocol: Document 12/13/20 13:45 DCW (Rec: 12/13/20 14:51 [id number][facility] Functional Tests Dynamic Gait Index (DGI) Score 03/25 Timed Up and Go (TUG) Score 27.28 /c SPC Comments 3-trial average (28.41, 26.21 , 27.22) PT-OP-G Mobility & Gait Start: 12/13/20 14:37 Freq: Status: Active Protocol: Document 12/13/20 13:45 DCW (Rec: 12/13/20 14:51 DC [id number]) OP Gait Assessment Gait Gait Assistance Required: Independent Assistive Devices Assistive Device Straight Cane Gait Deviations General Gait Pattern Decreased Stride Length, Decreased Feet Clearance, Flexed Trunk,Wide Based Gait Factors Limiting Gait Function Factors Limiting Gait Function Decreased Strength,Limited Range of Motion,Poor Balance Stair Climbing Evaluation Evaluation Level of Assist On Stairs Contact Guard Assistance Devices Stair Climbing Assistive Devices Left Railing,Right Railing Technique/Endurance Stair Climbing Direction Ascend and Descend Stair Climbing Technique Step to Step PT-OP-M Strength Start: 12/13/20 14:37 Freq: Status: Active Protocol: Document 12/13/20 13:45 DCW (Rec: 12/13/20 14:51 [facility] [id number]) Hip Strength Hip Manual Muscle Testing Right Flexion (L2) 4- Good- Extension (S1) 4 Good Abduction 3+ Fair+ Adduction 3+ Fair+ External Rotation 4 Good Internal Rotation 4- Good- Left Flexion (L2) 3+ Fair+ Extension (S1) 4- Good- Abduction 3+ Fair+ Adduction 3+ Fair+ External Rotation 4- Good- Internal Rotation 3+ Fair+ Knee Strength Knee Manual Muscle Testing Right Flexion (S2) 4 Good Extension (L3) 4 Good Left Flexion (S2) 4- Good- Extension (L3) 4- Good- PT-OP-Q Treatments Start: 12/13/20 14:37 Freq: Status: Active Protocol: Document 01/13/21 15:17 DCW (Rec: 01/13/21 16:00 DCW [id number]) Gym Equipment Shuttle Balance Red Details WBOS (EO/EC), Staggered Stance Comments Min A, wt shifting/ stationary Neuro Re-Education Treatment Balance Activities Ball pick-up/Toss Details Ball pick-up/toss Hurdles Equipment Hurdles Comments Forward, side-stepping SLS Details SLS Equipment // bars Tandem Stance Details Tandem Stance PT-OP-T Assessment and Plan Start: 12/13/20 14:37 Freq: Status: Active Protocol: Document 01/13/21 15:17 DCW (Rec: 01/13/21 16:00 DCW [id number]) Physical Therapy Assessment Impairments Impairments Activity Tolerance,Balance, Coordination,Functional Activities,Functional Mobility ,Gait,Posture,ROM,Strength Goals Three Impairment Pt in an increased falls risk per Yanez, TUG, and DGI scores Short Term Goal (STG) Pt to improve TUG score by at least 7 seconds to <20 show decreased falls risk STG Duration 01/24/21 Longterm Goal (LTG) Pt to improve Yanez score by at least 8 points to 38/56 in order to demonstrate improved falls risk. LTG Duration 03/14/21 Two Impairment Pt exhibits LE weakness, L>R, which impacts righting reactions District Director Goal (LTG) Pt to demonstrate LE MMT of at worst 4/5 in all planes bilaterally LTG Duration 03/14/21 One Impairment Pt does not have an appropriate Home Exercise Program Short Term Goal (STG) Pt to be independent and compliant with an appropriate HEP STG Duration 01/24/21 Assessment Summary Assessment Pt again demonstrating increased stability during balance challenges, improved SLS and also doing better with hurdles. Physical Therapy Plan Frequency and Duration Frequency of Treatment 2x/Week Duration of Treatment Three months Plan of Care Start Date 12/13/20 Plan of Care End Date 03/14/21 Therapeutic Interventions Therapeutic Interventions Balance Training,Coordination Training,Gait Training,Home Exercise Program,Neuromuscular Re-education,Patient/ Caregiver Education,Self-Care/ Home Management,Therapeutic Activities,Therapeutic Exercises Modalities Cold Pack/Ice Massage,Electric Stimulation,Hot Packs, Ultrasound Next Visit Focus/Plan Next Note Type Treatment Note Next Visit Plan Balance training, LE strengthening, gait training
--- NOTE | 2021-01-20 16:01 | PT.OTN ---
Current Diagnoses Unsteadiness on feet (01/20/21) Unspecified lack of coordination (01/20/21) Physical Therapy Treatment Note PT-OP-A Visit Information Start: 12/13/20 14:37 Freq: Status: Active Protocol: Document 01/20/21 15:22 DCW (Rec: 01/20/21 16:01 [facility] [id number]) Out-Patient Physical Therapy Visit Information Visit Information Visit Type Treatment Note Visit Start Time 15:22 Visit Stop Time 16:00 Total Visit Minutes 38 Visit Number 9 Number of VIOLIN MECHANIC Visits 0 Evaluation Information Evaluation Date 12/13/20 PT-OP-B Current Condition Start: 12/13/20 14:37 Freq: Status: Active Protocol: Document 12/13/20 13:45 DCW (Rec: 12/13/20 14:51 DCW [id number]) Current Condition History of Current Condition Onset Date Long-standing history Current Complaints Worsening balance History of Current Condition Pt is an 85 year old female well known to this clinic after multiple courses of rehab over the last few years, presenting today with complaints of worsening balance. Pt reports she has been experiencing increased difficulty with being out walking in her yard, difficulty walking up driveways, and feels like her left leg has been getting weaker. Pt has had multiple falls over the last year, most involved tripping over holes or dips in her yard. 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 PT-OP-C Subjective Start: 12/13/20 14:37 Freq: Status: Active Protocol: Document 01/20/21 15:22 DCW (Rec: 01/20/21 16:01 DCW [id number]) OP-PT Subjective Patient Comments Patient Comments I got the shot in my back, my back feels much better, but my legs feel terribly weak. PT-OP-D Balance Start: 12/13/20 14:37 Freq: Status: Active Protocol: Document 12/13/20 13:45 DCW (Rec: 12/13/20 14:51 DCW [id number]) OP-PT Balance Assessment Sitting Balance Static Sitting Balance Ability Good Dynamic Sitting Balance Ability Good Standing Balance Static Standing Balance Ability Fair Dynamic Standing Balance Ability Poor Device Used SPC Balance Tests Yanez Balance Test Yanez Balance Test Score 30/56 Yanez Impairment Rating 40 to 59% Impaired (Score 23- 33) Yanez Balance Assessment Evaluation Sitting to Standing Ability Several Tries w/Hands Unsupported Stance Safely- 2 minutes Sitting Unsupported, Feet on Floor Safely- 2 minutes Standing to Sitting Ability Assist, Control w/Hands Transfer Ability Safely, Hand Use Unsupported Stance- Eyes Closed Supervision, 10 seconds Unsupported Stance- Eyes Open Supervision to maintain Reaching Forward Standing Safely, 2 inches Pick- Up Object From Floor Requires Assistance Look Behind Shoulder - Standing Supervision w/Turning Turning 360 Degrees Supervision/Verbal Cues Unsupported Stance, Alternating Feet on 2 Steps w/Minimum Assist Stair Unsupported Tandem Stance Small Step- 30 seconds Unilateral Leg Stance Lifts Leg/Unable to Hold Total Score Yanez Total Score (out of 56 points) 30 Yanez Impairment Rating 40 to 59% Impaired (Score 23- 33) Mensah Fall Scale Copyright Permission PT-OP-E Functional Tests Start: 12/13/20 14:37 Freq: Status: Active Protocol: Document 12/13/20 13:45 DCW (Rec: 12/13/20 14:51 [id number] Functional Tests Dynamic Gait Index (DGI) Score 12/24 Timed Up and Go (TUG) Score 27.28 /c SPC Comments 3-trial average (28.41, 26.21 , 27.22) PT-OP-G Mobility & Gait Start: 12/13/20 14:37 Freq: Status: Active Protocol: Document 12/13/20 13:45 DCW (Rec: 12/13/20 14:51 [facility] [id number]) OP Gait Assessment Gait Gait Assistance Required: Independent Assistive Devices Assistive Device Straight Cane Gait Deviations General Gait Pattern Decreased Stride Length, Decreased Feet Clearance, Flexed Trunk,Wide Based Gait Factors Limiting Gait Function Factors Limiting Gait Function Decreased Strength,Limited Range of Motion,Poor Balance Stair Climbing Evaluation Evaluation Level of Assist On Stairs Contact Guard Assistance Devices Stair Climbing Assistive Devices Left Railing,Right Railing Technique/Endurance Stair Climbing Direction Ascend and Descend Stair Climbing Technique Step to Step PT-OP-M Strength Start: 12/13/20 14:37 Freq: Status: Active Protocol: Document 12/13/20 13:45 DCW (Rec: 12/13/20 14:51 DCW [id number]) Hip Strength Hip Manual Muscle Testing Right Flexion (L2) 4- Good- Extension (S1) 4 Good Abduction 3+ Fair+ Adduction 3+ Fair+ External Rotation 4 Good Internal Rotation 4- Good- Left Flexion (L2) 3+ Fair+ Extension (S1) 4- Good- Abduction 3+ Fair+ Adduction 3+ Fair+ External Rotation 4- Good- Internal Rotation 3+ Fair+ Knee Strength Knee Manual Muscle Testing Right Flexion (S2) 4 Good Extension (L3) 4 Good Left Flexion (S2) 4- Good- Extension (L3) 4- Good- PT-OP-Q Treatments Start: 12/13/20 14:37 Freq: Status: Active Protocol: Document 01/20/21 15:22 DCW (Rec: 01/20/21 16:01 DCW [id number]) Gym Equipment Shuttle Balance Red Details WBOS (EO/EC), Staggered Stance Comments Min A, wt shifting/ stationary Neuro Re-Education Treatment Balance Activities Ball pick-up/Toss Details Ball pick-up/toss Hurdles Equipment Hurdles Comments Forward, side-stepping SLS Details SLS Equipment // bars PT-OP-T Assessment and Plan Start: 12/13/20 14:37 Freq: Status: Active Protocol: Document 01/20/21 15:22 DCW (Rec: 01/20/21 16:01 DCW [id number]) Physical Therapy Assessment Impairments Impairments Activity Tolerance,Balance, Coordination,Functional Activities,Functional Mobility ,Gait,Posture,ROM,Strength Goals Three Impairment Pt in an increased falls risk per Yanez, TUG, and DGI scores Short Term Goal (STG) Pt to improve TUG score by at least 7 seconds to <20 show decreased falls risk STG Duration 01/24/21 Floral Designer Salesperson Goal (LTG) Pt to improve Yanez score by at least 8 points to 38/56 in order to demonstrate improved falls risk. LTG Duration 03/14/21 Two Impairment Pt exhibits LE weakness, L>R, which impacts righting reactions Floral Designer Salesperson Goal (LTG) Pt to demonstrate LE MMT of at worst 4/5 in all planes bilaterally LTG Duration 03/14/21 One Impairment Pt does not have an appropriate Home Exercise Program Short Term Goal (STG) Pt to be independent and compliant with an appropriate HEP STG Duration 01/24/21 Assessment Summary Assessment Pt struggling a little bit more today, but felt a little more comfortable on the shuttle balance. Physical Therapy Plan Frequency and Duration Frequency of Treatment 2x/Week Duration of Treatment Three months Plan of Care Start Date 12/13/20 Plan of Care End Date 03/14/21 Therapeutic Interventions Therapeutic Interventions Balance Training,Coordination Training,Gait Training,Home Exercise Program,Neuromuscular Re-education,Patient/ Caregiver Education,Self-Care/ Home Management,Therapeutic Activities,Therapeutic Exercises Modalities Cold Pack/Ice Massage,Electric Stimulation,Hot Packs, Ultrasound Next Visit Focus/Plan Next Note Type Treatment Note Next Visit Plan Balance training, LE strengthening, gait training
--- NOTE | 2021-01-25 15:58 | PT.OTN ---
Current Diagnoses Unsteadiness on feet (01/25/21) Unspecified lack of coordination (01/25/21) Physical Therapy Treatment Note PT-OP-A Visit Information Start: 12/13/20 14:37 Freq: Status: Active Protocol: Document 01/25/21 15:20 DCW (Rec: 01/25/21 15:58 DCW [id number]) Out-Patient Physical Therapy Visit Information Visit Information Visit Type Treatment Note Visit Start Time 15:20 Visit Stop Time 16:00 Total Visit Minutes 40 Visit Number 10 Number of FISHER TRAP Visits 0 Evaluation Information Evaluation Date 12/13/20 PT-OP-B Current Condition Start: 12/13/20 14:37 Freq: Status: Active Protocol: Document 12/13/20 13:45 DCW (Rec: 12/13/20 14:51 DCW [id number]) Current Condition History of Current Condition Onset Date Long-standing history Current Complaints Worsening balance History of Current Condition Pt is an 85 year old female well known to this clinic after multiple courses of rehab over the last few years, presenting today with complaints of worsening balance. Pt reports she has been experiencing increased difficulty with being out walking in her yard, difficulty walking up driveways, and feels like her left leg has been getting weaker. Pt has had multiple falls over the last year, most involved tripping over holes or dips in her yard. 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 PT-OP-C Subjective Start: 12/13/20 14:37 Freq: Status: Active Protocol: Document 01/25/21 15:20 DCW (Rec: 01/25/21 15:58 DCW [id number]) OP-PT Subjective Patient Comments Patient Comments I'm just cugging along. PT-OP-D Balance Start: 12/13/20 14:37 Freq: Status: Active Protocol: Document 12/13/20 13:45 DCW (Rec: 12/13/20 14:51 DCW [id number]) OP-PT Balance Assessment Sitting Balance Static Sitting Balance Ability Good Dynamic Sitting Balance Ability Good Standing Balance Static Standing Balance Ability Fair Dynamic Standing Balance Ability Poor Device Used SPC Balance Tests Yanez Balance Test Yanez Balance Test Score 30/56 Yanez Impairment Rating 40 to 59% Impaired (Score 23- 33) Yanez Balance Assessment Evaluation Sitting to Standing Ability Several Tries w/Hands Unsupported Stance Safely- 2 minutes Sitting Unsupported, Feet on Floor Safely- 2 minutes Standing to Sitting Ability Assist, Control w/Hands Transfer Ability Safely, Hand Use Unsupported Stance- Eyes Closed Supervision, 10 seconds Unsupported Stance- Eyes Open Supervision to maintain Reaching Forward Standing Safely, 2 inches Pick- Up Object From Floor Requires Assistance Look Behind Shoulder - Standing Supervision w/Turning Turning 360 Degrees Supervision/Verbal Cues Unsupported Stance, Alternating Feet on 2 Steps w/Minimum Assist Stair Unsupported Tandem Stance Small Step- 30 seconds Unilateral Leg Stance Lifts Leg/Unable to Hold Total Score Yanez Total Score (out of 56 points) 30 Yanez Impairment Rating 40 to 59% Impaired (Score 23- 33) Mensha Fall Scale Copyright Permission PT-OP-E Functional Tests Start: 12/13/20 14:37 Freq: Status: Active Protocol: Document 12/13/20 13:45 DCW (Rec: 12/13/20 14:51 [id number] Functional Tests Dynamic Gait Index (DGI) Score 03/25 Timed Up and Go (TUG) Score 27.28 /c SPC Comments 3-trial average (28.41, 26.21 , 27.22) PT-OP-G Mobility & Gait Start: 12/13/20 14:37 Freq: Status: Active Protocol: Document 12/13/20 13:45 DCW (Rec: 12/13/20 14:51 DC [id number]) OP Gait Assessment Gait Gait Assistance Required: Independent Assistive Devices Assistive Device Straight Cane Gait Deviations General Gait Pattern Decreased Stride Length, Decreased Feet Clearance, Flexed Trunk,Wide Based Gait Factors Limiting Gait Function Factors Limiting Gait Function Decreased Strength,Limited Range of Motion,Poor Balance Stair Climbing Evaluation Evaluation Level of Assist On Stairs Contact Guard Assistance Devices Stair Climbing Assistive Devices Left Railing,Right Railing Technique/Endurance Stair Climbing Direction Ascend and Descend Stair Climbing Technique Step to Step PT-OP-M Strength Start: 12/13/20 14:37 Freq: Status: Active Protocol: Document 12/13/20 13:45 DCW (Rec: 12/13/20 14:51 MSW [id number]) Hip Strength Hip Manual Muscle Testing Right Flexion (L2) 4- Good- Extension (S1) 4 Good Abduction 3+ Fair+ Adduction 3+ Fair+ External Rotation 4 Good Internal Rotation 4- Good- Left Flexion (L2) 3+ Fair+ Extension (S1) 4- Good- Abduction 3+ Fair+ Adduction 3+ Fair+ External Rotation 4- Good- Internal Rotation 3+ Fair+ Knee Strength Knee Manual Muscle Testing Right Flexion (S2) 4 Good Extension (L3) 4 Good Left Flexion (S2) 4- Good- Extension (L3) 4- Good- PT-OP-Q Treatments Start: 12/13/20 14:37 Freq: Status: Active Protocol: Document 01/25/21 15:20 DCW (Rec: 01/25/21 15:58 DCW [id number]) Gym Equipment Shuttle Balance Red Details WBOS (EO/EC), Staggered Stance Comments Min A, wt shifting/ stationary Neuro Re-Education Treatment Balance Activities Ball pick-up/Toss Details Ball pick-up/toss Hurdles Equipment Hurdles Comments Forward, side-stepping SLS Details SLS Equipment // bars Tandem Stance Details Tandem Stance PT-OP-T Assessment and Plan Start: 12/13/20 14:37 Freq: Status: Active Protocol: Document 01/25/21 15:20 DCW (Rec: 01/25/21 15:58 DCW [id number]) Physical Therapy Assessment Impairments Impairments Activity Tolerance,Balance, Coordination,Functional Activities,Functional Mobility ,Gait,Posture,ROM,Strength Goals Three Impairment Pt in an increased falls risk per Yanez, TUG, and DGI scores Short Term Goal (STG) Pt to improve TUG score by at least 7 seconds to <20 show decreased falls risk STG Duration 01/24/21 Fdc Goal (LTG) Pt to improve Yanez score by at least 8 points to 38/56 in order to demonstrate improved falls risk. LTG Duration 03/14/21 Two Impairment Pt exhibits LE weakness, L>R, which impacts righting reactions Pest Control Service Representative Goal (LTG) Pt to demonstrate LE MMT of at worst 4/5 in all planes bilaterally LTG Duration 03/14/21 One Impairment Pt does not have an appropriate Home Exercise Program Short Term Goal (STG) Pt to be independent and compliant with an appropriate HEP STG Duration 01/24/21 Assessment Summary Assessment Pt was performing significantly better with side -stepping over hurdles today. Physical Therapy Plan Frequency and Duration Frequency of Treatment 2x/Week Duration of Treatment Three months Plan of Care Start Date 12/13/20 Plan of Care End Date 03/14/21 Therapeutic Interventions Therapeutic Interventions Balance Training,Coordination Training,Gait Training,Home Exercise Program,Neuromuscular Re-education,Patient/ Caregiver Education,Self-Care/ Home Management,Therapeutic Activities,Therapeutic Exercises Modalities Cold Pack/Ice Massage,Electric Stimulation,Hot Packs, Ultrasound Next Visit Focus/Plan Next Note Type Treatment Note Next Visit Plan Balance training, LE strengthening, gait training
--- NOTE | 2021-01-27 15:59 | PT.OTN ---
Current Diagnoses Unsteadiness on feet (01/27/21) Unspecified lack of coordination (01/27/21) Physical Therapy Treatment Note PT-OP-A Visit Information Start: 12/13/20 14:37 Freq: Status: Active Protocol: Document 01/27/21 15:15 DCW (Rec: 01/27/21 15:59 DCW [id number]) Out-Patient Physical Therapy Visit Information Visit Information Visit Type Treatment Note Visit Start Time 15:15 Visit Stop Time 16:00 Total Visit Minutes 45 Visit Number 11 Number of SALES ESTIMATOR Visits 0 Evaluation Information Evaluation Date 12/13/20 PT-OP-B Current Condition Start: 12/13/20 14:37 Freq: Status: Active Protocol: Document 12/13/20 13:45 DCW (Rec: 12/13/20 14:51 DCW [id number]) Current Condition History of Current Condition Onset Date Long-standing history Current Complaints Worsening balance History of Current Condition Pt is an 85 year old female well known to this clinic after multiple courses of rehab over the last few years, presenting today with complaints of worsening balance. Pt reports she has been experiencing increased difficulty with being out walking in her yard, difficulty walking up driveways, and feels like her left leg has been getting weaker. Pt has had multiple falls over the last year, most involved tripping over holes or dips in her yard. 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 PT-OP-C Subjective Start: 12/13/20 14:37 Freq: Status: Active Protocol: Document 01/27/21 15:15 DCW (Rec: 01/27/21 15:59 DCW [id number]) OP-PT Subjective Patient Comments Patient Comments Pt notes she is doing well today. PT-OP-D Balance Start: 12/13/20 14:37 Freq: Status: Active Protocol: Document 12/13/20 13:45 DCW (Rec: 12/13/20 14:51 DCW [id number]) OP-PT Balance Assessment Sitting Balance Static Sitting Balance Ability Good Dynamic Sitting Balance Ability Good Standing Balance Static Standing Balance Ability Fair Dynamic Standing Balance Ability Poor Device Used SPC Balance Tests Yanez Balance Test Yanez Balance Test Score 30/56 Yanez Impairment Rating 40 to 59% Impaired (Score 23- 33) Yanez Balance Assessment Evaluation Sitting to Standing Ability Several Tries w/Hands Unsupported Stance Safely- 2 minutes Sitting Unsupported, Feet on Floor Safely- 2 minutes Standing to Sitting Ability Assist, Control w/Hands Transfer Ability Safely, Hand Use Unsupported Stance- Eyes Closed Supervision, 10 seconds Unsupported Stance- Eyes Open Supervision to maintain Reaching Forward Standing Safely, 2 inches Pick- Up Object From Floor Requires Assistance Look Behind Shoulder - Standing Supervision w/Turning Turning 360 Degrees Supervision/Verbal Cues Unsupported Stance, Alternating Feet on 2 Steps w/Minimum Assist Stair Unsupported Tandem Stance Small Step- 30 seconds Unilateral Leg Stance Lifts Leg/Unable to Hold Total Score Yanez Total Score (out of 56 points) 30 Yanez Impairment Rating 40 to 59% Impaired (Score 23- 33) Mensah Fall Scale Copyright Permission PT-OP-E Functional Tests Start: 12/13/20 14:37 Freq: Status: Active Protocol: Document 12/13/20 13:45 DCW (Rec: 12/13/20 14:51 [id number] Functional Tests Dynamic Gait Index (DGI) Score 03/25 Timed Up and Go (TUG) Score 27.28 /c SPC Comments 3-trial average (28.41, 26.21 , 27.22) PT-OP-G Mobility & Gait Start: 12/13/20 14:37 Freq: Status: Active Protocol: Document 12/13/20 13:45 DCW (Rec: 12/13/20 14:51 [facility] [id number]) OP Gait Assessment Gait Gait Assistance Required: Independent Assistive Devices Assistive Device Straight Cane Gait Deviations General Gait Pattern Decreased Stride Length, Decreased Feet Clearance, Flexed Trunk,Wide Based Gait Factors Limiting Gait Function Factors Limiting Gait Function Decreased Strength,Limited Range of Motion,Poor Balance Stair Climbing Evaluation Evaluation Level of Assist On Stairs Contact Guard Assistance Devices Stair Climbing Assistive Devices Left Railing,Right Railing Technique/Endurance Stair Climbing Direction Ascend and Descend Stair Climbing Technique Step to Step PT-OP-M Strength Start: 12/13/20 14:37 Freq: Status: Active Protocol: Document 12/13/20 13:45 DCW (Rec: 12/13/20 14:51 [id number] Hip Strength Hip Manual Muscle Testing Right Flexion (L2) 4- Good- Extension (S1) 4 Good Abduction 3+ Fair+ Adduction 3+ Fair+ External Rotation 4 Good Internal Rotation 4- Good- Left Flexion (L2) 3+ Fair+ Extension (S1) 4- Good- Abduction 3+ Fair+ Adduction 3+ Fair+ External Rotation 4- Good- Internal Rotation 3+ Fair+ Knee Strength Knee Manual Muscle Testing Right Flexion (S2) 4 Good Extension (L3) 4 Good Left Flexion (S2) 4- Good- Extension (L3) 4- Good- PT-OP-Q Treatments Start: 12/13/20 14:37 Freq: Status: Active Protocol: Document 01/27/21 15:15 DCW (Rec: 01/27/21 15:59 DCW [id number]) Gym Equipment Shuttle Balance Red Details WBOS (EO/EC), Staggered Stance Comments Min A, wt shifting/ stationary Neuro Re-Education Treatment Balance Activities Ball pick-up/Toss Details Ball pick-up/toss Hurdles Equipment Hurdles Comments Forward, side-stepping SLS Details SLS Equipment // bars Tandem Stance Details Tandem Stance PT-OP-T Assessment and Plan Start: 12/13/20 14:37 Freq: Status: Active Protocol: Document 01/27/21 15:15 DCW (Rec: 01/27/21 15:59 DCW [id number]) Physical Therapy Assessment Impairments Impairments Activity Tolerance,Balance, Coordination,Functional Activities,Functional Mobility ,Gait,Posture,ROM,Strength Goals Three Impairment Pt in an increased falls risk per Yanez, TUG, and DGI scores Short Term Goal (STG) Pt to improve TUG score by at least 7 seconds to <20 show decreased falls risk STG Duration 01/24/21 Shelter Goal (LTG) Pt to improve Yanez score by at least 8 points to 38/56 in order to demonstrate improved falls risk. LTG Duration 03/14/21 Two Impairment Pt exhibits LE weakness, L>R, which impacts righting reactions Shelter Goal (LTG) Pt to demonstrate LE MMT of at worst 4/5 in all planes bilaterally LTG Duration 03/14/21 One Impairment Pt does not have an appropriate Home Exercise Program Short Term Goal (STG) Pt to be independent and compliant with an appropriate HEP STG Duration 01/24/21 Assessment Summary Assessment Pt showing good progress with balance and gait stability. Physical Therapy Plan Frequency and Duration Frequency of Treatment 2x/Week Duration of Treatment Three months Plan of Care Start Date 12/13/20 Plan of Care End Date 03/14/21 Therapeutic Interventions Therapeutic Interventions Balance Training,Coordination Training,Gait Training,Home Exercise Program,Neuromuscular Re-education,Patient/ Caregiver Education,Self-Care/ Home Management,Therapeutic Activities,Therapeutic Exercises Modalities Cold Pack/Ice Massage,Electric Stimulation,Hot Packs, Ultrasound Next Visit Focus/Plan Next Note Type Treatment Note Next Visit Plan Balance training, LE strengthening, gait training
--- NOTE | 2021-02-01 16:00 | PT.OTN ---
Current Diagnoses Unsteadiness on feet (02/01/21) Unspecified lack of coordination (02/01/21) Physical Therapy Treatment Note PT-OP-A Visit Information Start: 12/13/20 14:37 Freq: Status: Active Protocol: Document 02/01/21 15:16 DCW (Rec: 02/01/21 15:59 DCW [id number]) Out-Patient Physical Therapy Visit Information Visit Information Visit Type Treatment Note Visit Start Time 15:16 Visit Stop Time 16:00 Total Visit Minutes 44 Visit Number 12 Number of TUGBOAT CAPTAIN Visits 0 Evaluation Information Evaluation Date 12/13/20 PT-OP-B Current Condition Start: 12/13/20 14:37 Freq: Status: Active Protocol: Document 12/13/20 13:45 DCW (Rec: 12/13/20 14:51 DCW [id number]) Current Condition History of Current Condition Onset Date Long-standing history Current Complaints Worsening balance History of Current Condition Pt is an 85 year old female well known to this clinic after multiple courses of rehab over the last few years, presenting today with complaints of worsening balance. Pt reports she has been experiencing increased difficulty with being out walking in her yard, difficulty walking up driveways, and feels like her left leg has been getting weaker. Pt has had multiple falls over the last year, most involved tripping over holes or dips in her yard. 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 PT-OP-C Subjective Start: 12/13/20 14:37 Freq: Status: Active Protocol: Document 02/01/21 15:16 DCW (Rec: 02/01/21 15:59 DCW [id number]) OP-PT Subjective Patient Comments Patient Comments Aside from being wet, I'm doing pretty well. PT-OP-D Balance Start: 12/13/20 14:37 Freq: Status: Active Protocol: Document 12/13/20 13:45 DCW (Rec: 12/13/20 14:51 DCW [id number]) OP-PT Balance Assessment Sitting Balance Static Sitting Balance Ability Good Dynamic Sitting Balance Ability Good Standing Balance Static Standing Balance Ability Fair Dynamic Standing Balance Ability Poor Device Used SPC Balance Tests Yanez Balance Test Yanez Balance Test Score 30/56 Yanez Impairment Rating 40 to 59% Impaired (Score 23- 33) Yanez Balance Assessment Evaluation Sitting to Standing Ability Several Tries w/Hands Unsupported Stance Safely- 2 minutes Sitting Unsupported, Feet on Floor Safely- 2 minutes Standing to Sitting Ability Assist, Control w/Hands Transfer Ability Safely, Hand Use Unsupported Stance- Eyes Closed Supervision, 10 seconds Unsupported Stance- Eyes Open Supervision to maintain Reaching Forward Standing Safely, 2 inches Pick- Up Object From Floor Requires Assistance Look Behind Shoulder - Standing Supervision w/Turning Turning 360 Degrees Supervision/Verbal Cues Unsupported Stance, Alternating Feet on 2 Steps w/Minimum Assist Stair Unsupported Tandem Stance Small Step- 30 seconds Unilateral Leg Stance Lifts Leg/Unable to Hold Total Score Yanez Total Score (out of 56 points) 30 Yanez Impairment Rating 40 to 59% Impaired (Score 23- 33) Mensah Fall Scale Copyright Permission PT-OP-E Functional Tests Start: 12/13/20 14:37 Freq: Status: Active Protocol: Document 12/13/20 13:45 DCW (Rec: 12/13/20 14:51 [facility] [id number]) Functional Tests Dynamic Gait Index (DGI) Score 03/25 Timed Up and Go (TUG) Score 27.28 /c SPC Comments 3-trial average (28.41, 26.21 , 27.22) PT-OP-G Mobility & Gait Start: 12/13/20 14:37 Freq: Status: Active Protocol: Document 12/13/20 13:45 DCW (Rec: 12/13/20 14:51 DC [id number]) OP Gait Assessment Gait Gait Assistance Required: Independent Assistive Devices Assistive Device Straight Cane Gait Deviations General Gait Pattern Decreased Stride Length, Decreased Feet Clearance, Flexed Trunk,Wide Based Gait Factors Limiting Gait Function Factors Limiting Gait Function Decreased Strength,Limited Range of Motion,Poor Balance Stair Climbing Evaluation Evaluation Level of Assist On Stairs Contact Guard Assistance Devices Stair Climbing Assistive Devices Left Railing,Right Railing Technique/Endurance Stair Climbing Direction Ascend and Descend Stair Climbing Technique Step to Step PT-OP-M Strength Start: 12/13/20 14:37 Freq: Status: Active Protocol: Document 12/13/20 13:45 DCW (Rec: 12/13/20 14:51 [facility] [id number]) Hip Strength Hip Manual Muscle Testing Right Flexion (L2) 4- Good- Extension (S1) 4 Good Abduction 3+ Fair+ Adduction 3+ Fair+ External Rotation 4 Good Internal Rotation 4- Good- Left Flexion (L2) 3+ Fair+ Extension (S1) 4- Good- Abduction 3+ Fair+ Adduction 3+ Fair+ External Rotation 4- Good- Internal Rotation 3+ Fair+ Knee Strength Knee Manual Muscle Testing Right Flexion (S2) 4 Good Extension (L3) 4 Good Left Flexion (S2) 4- Good- Extension (L3) 4- Good- PT-OP-Q Treatments Start: 12/13/20 14:37 Freq: Status: Active Protocol: Document 02/01/21 15:16 DCW (Rec: 02/01/21 15:59 DCW [id number]) Gym Equipment Shuttle Balance Red Details WBOS (EO/EC), Staggered Stance Comments Min A, wt shifting/ stationary Neuro Re-Education Treatment Balance Activities Ball pick-up/Toss Details Ball pick-up/toss Hurdles Equipment Hurdles Comments Forward, side-stepping SLS Details SLS Equipment // bars Tandem Walking Details Tandem Walking Tandem Stance Details Tandem Stance PT-OP-T Assessment and Plan Start: 12/13/20 14:37 Freq: Status: Active Protocol: Document 02/01/21 15:16 DCW (Rec: 02/01/21 15:59 DCW [id number]) Physical Therapy Assessment Impairments Impairments Activity Tolerance,Balance, Coordination,Functional Activities,Functional Mobility ,Gait,Posture,ROM,Strength Goals Three Impairment Pt in an increased falls risk per Yanez, TUG, and DGI scores Short Term Goal (STG) Pt to improve TUG score by at least 7 seconds to <20 show decreased falls risk STG Duration 01/24/21 Assistant Secretary Goal (LTG) Pt to improve Yanez score by at least 8 points to 38/56 in order to demonstrate improved falls risk. LTG Duration 03/14/21 Two Impairment Pt exhibits LE weakness, L>R, which impacts righting reactions Mcc Goal (LTG) Pt to demonstrate LE MMT of at worst 4/5 in all planes bilaterally LTG Duration 03/14/21 One Impairment Pt does not have an appropriate Home Exercise Program Short Term Goal (STG) Pt to be independent and compliant with an appropriate HEP STG Duration 01/24/21 Assessment Summary Assessment Pt improving with hurdles, much more confident side- stepping. Physical Therapy Plan Frequency and Duration Frequency of Treatment 2x/Week Duration of Treatment Three months Plan of Care Start Date 12/13/20 Plan of Care End Date 03/14/21 Therapeutic Interventions Therapeutic Interventions Balance Training,Coordination Training,Gait Training,Home Exercise Program,Neuromuscular Re-education,Patient/ Caregiver Education,Self-Care/ Home Management,Therapeutic Activities,Therapeutic Exercises Modalities Cold Pack/Ice Massage,Electric Stimulation,Hot Packs, Ultrasound Next Visit Focus/Plan Next Note Type Treatment Note Next Visit Plan Balance training, LE strengthening, gait training
--- NOTE | 2021-02-08 15:57 | PT.OTN ---
Current Diagnoses Unsteadiness on feet (02/08/21) Unspecified lack of coordination (02/08/21) Physical Therapy Treatment Note PT-OP-A Visit Information Start: 12/13/20 14:37 Freq: Status: Active Protocol: Document 02/08/21 15:15 DCW (Rec: 02/08/21 15:57 DCW [id number]) Out-Patient Physical Therapy Visit Information Visit Information Visit Type Treatment Note Visit Start Time 15:15 Visit Stop Time 16:00 Total Visit Minutes 45 Visit Number 14 Number of BIRTH ATTENDANT Visits 0 Evaluation Information Evaluation Date 12/13/20 PT-OP-B Current Condition Start: 12/13/20 14:37 Freq: Status: Active Protocol: Document 12/13/20 13:45 DCW (Rec: 12/13/20 14:51 DCW [id number]) Current Condition History of Current Condition Onset Date Long-standing history Current Complaints Worsening balance History of Current Condition Pt is an 85 year old female well known to this clinic after multiple courses of rehab over the last few years, presenting today with complaints of worsening balance. Pt reports she has been experiencing increased difficulty with being out walking in her yard, difficulty walking up driveways, and feels like her left leg has been getting weaker. Pt has had multiple falls over the last year, most involved tripping over holes or dips in her yard. 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 PT-OP-C Subjective Start: 12/13/20 14:37 Freq: Status: Active Protocol: Document 02/08/21 15:15 DCW (Rec: 02/08/21 15:57 DCW [id number]) OP-PT Subjective Patient Comments Patient Comments Pt has been having a difficult week, pt's had a fall PT-OP-D Balance Start: 12/13/20 14:37 Freq: Status: Active Protocol: Document 12/13/20 13:45 DCW (Rec: 12/13/20 14:51 DCW [id number]) OP-PT Balance Assessment Sitting Balance Static Sitting Balance Ability Good Dynamic Sitting Balance Ability Good Standing Balance Static Standing Balance Ability Fair Dynamic Standing Balance Ability Poor Device Used SPC Balance Tests Yanez Balance Test Yanez Balance Test Score 30/56 Yanez Impairment Rating 40 to 59% Impaired (Score 23- 33) Yanez Balance Assessment Evaluation Sitting to Standing Ability Several Tries w/Hands Unsupported Stance Safely- 2 minutes Sitting Unsupported, Feet on Floor Safely- 2 minutes Standing to Sitting Ability Assist, Control w/Hands Transfer Ability Safely, Hand Use Unsupported Stance- Eyes Closed Supervision, 10 seconds Unsupported Stance- Eyes Open Supervision to maintain Reaching Forward Standing Safely, 2 inches Pick- Up Object From Floor Requires Assistance Look Behind Shoulder - Standing Supervision w/Turning Turning 360 Degrees Supervision/Verbal Cues Unsupported Stance, Alternating Feet on 2 Steps w/Minimum Assist Stair Unsupported Tandem Stance Small Step- 30 seconds Unilateral Leg Stance Lifts Leg/Unable to Hold Total Score Yanez Total Score (out of 56 points) 30 Yanez Impairment Rating 40 to 59% Impaired (Score 23- 33) Mensah Fall Scale Copyright Permission PT-OP-E Functional Tests Start: 12/13/20 14:37 Freq: Status: Active Protocol: Document 12/13/20 13:45 DCW (Rec: 12/13/20 14:51 [facility] [id number]) Functional Tests Dynamic Gait Index (DGI) Score 03/25 Timed Up and Go (TUG) Score 27.28 /c SPC Comments 3-trial average (28.41, 26.21 , 27.22) PT-OP-G Mobility & Gait Start: 12/13/20 14:37 Freq: Status: Active Protocol: Document 12/13/20 13:45 DCW (Rec: 12/13/20 14:51 [facility] [id number]) OP Gait Assessment Gait Gait Assistance Required: Independent Assistive Devices Assistive Device Straight Cane Gait Deviations General Gait Pattern Decreased Stride Length, Decreased Feet Clearance, Flexed Trunk,Wide Based Gait Factors Limiting Gait Function Factors Limiting Gait Function Decreased Strength,Limited Range of Motion,Poor Balance Stair Climbing Evaluation Evaluation Level of Assist On Stairs Contact Guard Assistance Devices Stair Climbing Assistive Devices Left Railing,Right Railing Technique/Endurance Stair Climbing Direction Ascend and Descend Stair Climbing Technique Step to Step PT-OP-M Strength Start: 12/13/20 14:37 Freq: Status: Active Protocol: Document 12/13/20 13:45 DCW (Rec: 12/13/20 14:51 [facility] [id number]) Hip Strength Hip Manual Muscle Testing Right Flexion (L2) 4- Good- Extension (S1) 4 Good Abduction 3+ Fair+ Adduction 3+ Fair+ External Rotation 4 Good Internal Rotation 4- Good- Left Flexion (L2) 3+ Fair+ Extension (S1) 4- Good- Abduction 3+ Fair+ Adduction 3+ Fair+ External Rotation 4- Good- Internal Rotation 3+ Fair+ Knee Strength Knee Manual Muscle Testing Right Flexion (S2) 4 Good Extension (L3) 4 Good Left Flexion (S2) 4- Good- Extension (L3) 4- Good- PT-OP-Q Treatments Start: 12/13/20 14:37 Freq: Status: Active Protocol: Document 02/08/21 15:15 DCW (Rec: 02/08/21 15:57 DCW [id number]) Gym Equipment Shuttle Balance Red Details WBOS (EO/EC), Staggered Stance Comments Min A, wt shifting/ stationary Neuro Re-Education Treatment Balance Activities Toe-taps Details Cross body toe-taps on cones Ball pick-up/Toss Details Ball pick-up/toss Hurdles Equipment Hurdles Comments Forward, side-stepping SLS Details SLS Equipment // bars Tandem Walking Details Tandem Walking Tandem Stance Details Tandem Stance PT-OP-T Assessment and Plan Start: 12/13/20 14:37 Freq: Status: Active Protocol: Document 02/08/21 15:15 DCW (Rec: 02/08/21 15:57 DCW [id number]) Physical Therapy Assessment Impairments Impairments Activity Tolerance,Balance, Coordination,Functional Activities,Functional Mobility ,Gait,Posture,ROM,Strength Goals Three Impairment Pt in an increased falls risk per Yanez, TUG, and DGI scores Short Term Goal (STG) Pt to improve TUG score by at least 7 seconds to <20 show decreased falls risk STG Duration 01/24/21 Geophysicist Goal (LTG) Pt to improve Yanez score by at least 8 points to 38/56 in order to demonstrate improved falls risk. LTG Duration 03/14/21 Two Impairment Pt exhibits LE weakness, L>R, which impacts righting reactions Usp Goal (LTG) Pt to demonstrate LE MMT of at worst 4/5 in all planes bilaterally LTG Duration 03/14/21 One Impairment Pt does not have an appropriate Home Exercise Program Short Term Goal (STG) Pt to be independent and compliant with an appropriate HEP STG Duration 01/24/21 Assessment Summary Assessment Pt doing well with improved balance challenges in // bars. Physical Therapy Plan Frequency and Duration Frequency of Treatment 2x/Week Duration of Treatment Three months Plan of Care Start Date 12/13/20 Plan of Care End Date 03/14/21 Therapeutic Interventions Therapeutic Interventions Balance Training,Coordination Training,Gait Training,Home Exercise Program,Neuromuscular Re-education,Patient/ Caregiver Education,Self-Care/ Home Management,Therapeutic Activities,Therapeutic Exercises Modalities Cold Pack/Ice Massage,Electric Stimulation,Hot Packs, Ultrasound Next Visit Focus/Plan Next Note Type Treatment Note Next Visit Plan Balance training, LE strengthening, gait training
--- NOTE | 2021-02-15 15:57 | PT.OTN ---
Current Diagnoses Unsteadiness on feet (02/15/21) Unspecified lack of coordination (02/15/21) Physical Therapy Treatment Note PT-OP-A Visit Information Start: 12/13/20 14:37 Freq: Status: Active Protocol: Document 02/15/21 15:15 DCW (Rec: 02/15/21 15:57 DCW [id number]) Out-Patient Physical Therapy Visit Information Visit Information Visit Type Treatment Note Visit Start Time 15:15 Visit Stop Time 16:00 Total Visit Minutes 45 Visit Number 15 Number of MOTION DESIGNER Visits 0 Evaluation Information Evaluation Date 12/13/20 PT-OP-B Current Condition Start: 12/13/20 14:37 Freq: Status: Active Protocol: Document 12/13/20 13:45 DCW (Rec: 12/13/20 14:51 DCW [id number]) Current Condition History of Current Condition Onset Date Long-standing history Current Complaints Worsening balance History of Current Condition Pt is an 85 year old female well known to this clinic after multiple courses of rehab over the last few years, presenting today with complaints of worsening balance. Pt reports she has been experiencing increased difficulty with being out walking in her yard, difficulty walking up driveways, and feels like her left leg has been getting weaker. Pt has had multiple falls over the last year, most involved tripping over holes or dips in her yard. 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 PT-OP-C Subjective Start: 12/13/20 14:37 Freq: Status: Active Protocol: Document 02/15/21 15:15 DCW (Rec: 02/15/21 15:57 DCW [id number]) OP-PT Subjective Patient Comments Patient Comments Pt doing pretty well today. PT-OP-D Balance Start: 12/13/20 14:37 Freq: Status: Active Protocol: Document 12/13/20 13:45 DCW (Rec: 12/13/20 14:51 DCW [id number]) OP-PT Balance Assessment Sitting Balance Static Sitting Balance Ability Good Dynamic Sitting Balance Ability Good Standing Balance Static Standing Balance Ability Fair Dynamic Standing Balance Ability Poor Device Used SPC Balance Tests Yanez Balance Test Yanez Balance Test Score 30/56 Yanez Impairment Rating 40 to 59% Impaired (Score 23- 33) Yanez Balance Assessment Evaluation Sitting to Standing Ability Several Tries w/Hands Unsupported Stance Safely- 2 minutes Sitting Unsupported, Feet on Floor Safely- 2 minutes Standing to Sitting Ability Assist, Control w/Hands Transfer Ability Safely, Hand Use Unsupported Stance- Eyes Closed Supervision, 10 seconds Unsupported Stance- Eyes Open Supervision to maintain Reaching Forward Standing Safely, 2 inches Pick- Up Object From Floor Requires Assistance Look Behind Shoulder - Standing Supervision w/Turning Turning 360 Degrees Supervision/Verbal Cues Unsupported Stance, Alternating Feet on 2 Steps w/Minimum Assist Stair Unsupported Tandem Stance Small Step- 30 seconds Unilateral Leg Stance Lifts Leg/Unable to Hold Total Score Yanez Total Score (out of 56 points) 30 Yanez Impairment Rating 40 to 59% Impaired (Score 23- 33) Mensah Fall Scale Copyright Permission PT-OP-E Functional Tests Start: 12/13/20 14:37 Freq: Status: Active Protocol: Document 12/13/20 13:45 DCW (Rec: 12/13/20 14:51 [id number] Functional Tests Dynamic Gait Index (DGI) Score 03/25 Timed Up and Go (TUG) Score 27.28 /c SPC Comments 3-trial average (28.41, 26.21 , 27.22) PT-OP-G Mobility & Gait Start: 12/13/20 14:37 Freq: Status: Active Protocol: Document 12/13/20 13:45 DCW (Rec: 12/13/20 14:51 [facility] [id number]) OP Gait Assessment Gait Gait Assistance Required: Independent Assistive Devices Assistive Device Straight Cane Gait Deviations General Gait Pattern Decreased Stride Length, Decreased Feet Clearance, Flexed Trunk,Wide Based Gait Factors Limiting Gait Function Factors Limiting Gait Function Decreased Strength,Limited Range of Motion,Poor Balance Stair Climbing Evaluation Evaluation Level of Assist On Stairs Contact Guard Assistance Devices Stair Climbing Assistive Devices Left Railing,Right Railing Technique/Endurance Stair Climbing Direction Ascend and Descend Stair Climbing Technique Step to Step PT-OP-M Strength Start: 12/13/20 14:37 Freq: Status: Active Protocol: Document 12/13/20 13:45 DCW (Rec: 12/13/20 14:51 [id number]) Hip Strength Hip Manual Muscle Testing Right Flexion (L2) 4- Good- Extension (S1) 4 Good Abduction 3+ Fair+ Adduction 3+ Fair+ External Rotation 4 Good Internal Rotation 4- Good- Left Flexion (L2) 3+ Fair+ Extension (S1) 4- Good- Abduction 3+ Fair+ Adduction 3+ Fair+ External Rotation 4- Good- Internal Rotation 3+ Fair+ Knee Strength Knee Manual Muscle Testing Right Flexion (S2) 4 Good Extension (L3) 4 Good Left Flexion (S2) 4- Good- Extension (L3) 4- Good- PT-OP-Q Treatments Start: 12/13/20 14:37 Freq: Status: Active Protocol: Document 02/15/21 15:15 DCW (Rec: 02/15/21 15:57 DCW [id number]) Gym Equipment Shuttle Balance Red Details WBOS (EO/EC), Staggered Stance Comments Min A, wt shifting/ stationary Neuro Re-Education Treatment Balance Activities Toe-taps Details Cross body toe-taps on cones Ball pick-up/Toss Details Ball pick-up/toss Hurdles Equipment Hurdles Comments Forward, side-stepping SLS Details SLS Equipment // bars Tandem Walking Details Tandem Walking Tandem Stance Details Tandem Stance PT-OP-T Assessment and Plan Start: 12/13/20 14:37 Freq: Status: Active Protocol: Document 02/15/21 15:15 DCW (Rec: 02/15/21 15:57 DCW [id number]) Physical Therapy Assessment Impairments Impairments Activity Tolerance,Balance, Coordination,Functional Activities,Functional Mobility ,Gait,Posture,ROM,Strength Goals Three Impairment Pt in an increased falls risk per Yanez, TUG, and DGI scores Short Term Goal (STG) Pt to improve TUG score by at least 7 seconds to <20 show decreased falls risk STG Duration 01/24/21 Intermediate Goal (LTG) Pt to improve Yanez score by at least 8 points to 38/56 in order to demonstrate improved falls risk. LTG Duration 03/14/21 Two Impairment Pt exhibits LE weakness, L>R, which impacts righting reactions Intermediate Goal (LTG) Pt to demonstrate LE MMT of at worst 4/5 in all planes bilaterally LTG Duration 03/14/21 One Impairment Pt does not have an appropriate Home Exercise Program Short Term Goal (STG) Pt to be independent and compliant with an appropriate HEP STG Duration 01/24/21 Assessment Summary Assessment Pt improving speed and quality when stepping over hurdles both Fwd and lateral Physical Therapy Plan Frequency and Duration Frequency of Treatment 2x/Week Duration of Treatment Three months Plan of Care Start Date 12/13/20 Plan of Care End Date 03/14/21 Therapeutic Interventions Therapeutic Interventions Balance Training,Coordination Training,Gait Training,Home Exercise Program,Neuromuscular Re-education,Patient/ Caregiver Education,Self-Care/ Home Management,Therapeutic Activities,Therapeutic Exercises Modalities Cold Pack/Ice Massage,Electric Stimulation,Hot Packs, Ultrasound Next Visit Focus/Plan Next Note Type Treatment Note Next Visit Plan Balance training, LE strengthening, gait training
--- NOTE | 2021-02-17 15:59 | PT.OTN ---
Current Diagnoses Unsteadiness on feet (02/17/21) Unspecified lack of coordination (02/17/21) Physical Therapy Treatment Note PT-OP-A Visit Information Start: 12/13/20 14:37 Freq: Status: Active Protocol: Document 02/17/21 15:15 DCW (Rec: 02/17/21 15:59 DCW [id number]) Out-Patient Physical Therapy Visit Information Visit Information Visit Type Treatment Note Visit Start Time 15:15 Visit Stop Time 16:00 Total Visit Minutes 45 Visit Number 16 Number of TALENT ACQUISITION ASSISTANT Visits 0 Evaluation Information Evaluation Date 12/13/20 PT-OP-B Current Condition Start: 12/13/20 14:37 Freq: Status: Active Protocol: Document 12/13/20 13:45 DCW (Rec: 12/13/20 14:51 DCW [id number]) Current Condition History of Current Condition Onset Date Long-standing history Current Complaints Worsening balance History of Current Condition Pt is an 85 year old female well known to this clinic after multiple courses of rehab over the last few years, presenting today with complaints of worsening balance. Pt reports she has been experiencing increased difficulty with being out walking in her yard, difficulty walking up driveways, and feels like her left leg has been getting weaker. Pt has had multiple falls over the last year, most involved tripping over holes or dips in her yard. 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 PT-OP-C Subjective Start: 12/13/20 14:37 Freq: Status: Active Protocol: Document 02/17/21 15:15 DCW (Rec: 02/17/21 15:59 DCW [id number]) OP-PT Subjective Patient Comments Patient Comments Pt feels like she is progressing well. PT-OP-D Balance Start: 12/13/20 14:37 Freq: Status: Active Protocol: Document 12/13/20 13:45 DCW (Rec: 12/13/20 14:51 DCW [id number]) OP-PT Balance Assessment Sitting Balance Static Sitting Balance Ability Good Dynamic Sitting Balance Ability Good Standing Balance Static Standing Balance Ability Fair Dynamic Standing Balance Ability Poor Device Used SPC Balance Tests Yanez Balance Test Yanez Balance Test Score 30/56 Yanez Impairment Rating 40 to 59% Impaired (Score 23- 33) Yanez Balance Assessment Evaluation Sitting to Standing Ability Several Tries w/Hands Unsupported Stance Safely- 2 minutes Sitting Unsupported, Feet on Floor Safely- 2 minutes Standing to Sitting Ability Assist, Control w/Hands Transfer Ability Safely, Hand Use Unsupported Stance- Eyes Closed Supervision, 10 seconds Unsupported Stance- Eyes Open Supervision to maintain Reaching Forward Standing Safely, 2 inches Pick- Up Object From Floor Requires Assistance Look Behind Shoulder - Standing Supervision w/Turning Turning 360 Degrees Supervision/Verbal Cues Unsupported Stance, Alternating Feet on 2 Steps w/Minimum Assist Stair Unsupported Tandem Stance Small Step- 30 seconds Unilateral Leg Stance Lifts Leg/Unable to Hold Total Score Yanez Total Score (out of 56 points) 30 Yanez Impairment Rating 40 to 59% Impaired (Score 23- 33) Mensah Fall Scale Copyright Permission PT-OP-E Functional Tests Start: 12/13/20 14:37 Freq: Status: Active Protocol: Document 12/13/20 13:45 DCW (Rec: 12/13/20 14:51 [id number]) Functional Tests Dynamic Gait Index (DGI) Score 03/25 Timed Up and Go (TUG) Score 27.28 /c SPC Comments 3-trial average (28.41, 26.21 , 27.22) PT-OP-G Mobility & Gait Start: 12/13/20 14:37 Freq: Status: Active Protocol: Document 12/13/20 13:45 DCW (Rec: 12/13/20 14:51 DC [id number]) OP Gait Assessment Gait Gait Assistance Required: Independent Assistive Devices Assistive Device Straight Cane Gait Deviations General Gait Pattern Decreased Stride Length, Decreased Feet Clearance, Flexed Trunk,Wide Based Gait Factors Limiting Gait Function Factors Limiting Gait Function Decreased Strength,Limited Range of Motion,Poor Balance Stair Climbing Evaluation Evaluation Level of Assist On Stairs Contact Guard Assistance Devices Stair Climbing Assistive Devices Left Railing,Right Railing Technique/Endurance Stair Climbing Direction Ascend and Descend Stair Climbing Technique Step to Step PT-OP-M Strength Start: 12/13/20 14:37 Freq: Status: Active Protocol: Document 12/13/20 13:45 DCW (Rec: 12/13/20 14:51 IDW [id number]) Hip Strength Hip Manual Muscle Testing Right Flexion (L2) 4- Good- Extension (S1) 4 Good Abduction 3+ Fair+ Adduction 3+ Fair+ External Rotation 4 Good Internal Rotation 4- Good- Left Flexion (L2) 3+ Fair+ Extension (S1) 4- Good- Abduction 3+ Fair+ Adduction 3+ Fair+ External Rotation 4- Good- Internal Rotation 3+ Fair+ Knee Strength Knee Manual Muscle Testing Right Flexion (S2) 4 Good Extension (L3) 4 Good Left Flexion (S2) 4- Good- Extension (L3) 4- Good- PT-OP-Q Treatments Start: 12/13/20 14:37 Freq: Status: Active Protocol: Document 02/17/21 15:15 DCW (Rec: 02/17/21 15:59 DCW [id number]) Gym Equipment Shuttle Balance Red Details WBOS (EO/EC), Staggered Stance Comments Min A, wt shifting/ stationary Neuro Re-Education Treatment Balance Activities Toe-taps Details Cross body toe-taps on cones Ball pick-up/Toss Details Ball pick-up/toss Hurdles Equipment Hurdles Comments Forward, side-stepping SLS Details SLS Equipment // bars Tandem Walking Details Tandem Walking Tandem Stance Details Tandem Stance Foam Stance Details EO/EC Surface Pascual PT-OP-T Assessment and Plan Start: 12/13/20 14:37 Freq: Status: Active Protocol: Document 02/17/21 15:15 DCW (Rec: 02/17/21 15:59 DCW [id number]) Physical Therapy Assessment Impairments Impairments Activity Tolerance,Balance, Coordination,Functional Activities,Functional Mobility ,Gait,Posture,ROM,Strength Goals Three Impairment Pt in an increased falls risk per Yanez, TUG, and DGI scores Short Term Goal (STG) Pt to improve TUG score by at least 7 seconds to <20 show decreased falls risk STG Duration 01/24/21 Mcfp Goal (LTG) Pt to improve Yanez score by at least 8 points to 38/56 in order to demonstrate improved falls risk. LTG Duration 03/14/21 Two Impairment Pt exhibits LE weakness, L>R, which impacts righting reactions Mcfp Goal (LTG) Pt to demonstrate LE MMT of at worst 4/5 in all planes bilaterally LTG Duration 03/14/21 One Impairment Pt does not have an appropriate Home Exercise Program Short Term Goal (STG) Pt to be independent and compliant with an appropriate HEP STG Duration 01/24/21 Assessment Summary Assessment Pt feeling more confident with balance and stability. improving tandem stance and SLS. Physical Therapy Plan Frequency and Duration Frequency of Treatment 2x/Week Duration of Treatment Three months Plan of Care Start Date 12/13/20 Plan of Care End Date 03/14/21 Therapeutic Interventions Therapeutic Interventions Balance Training,Coordination Training,Gait Training,Home Exercise Program,Neuromuscular Re-education,Patient/ Caregiver Education,Self-Care/ Home Management,Therapeutic Activities,Therapeutic Exercises Modalities Cold Pack/Ice Massage,Electric Stimulation,Hot Packs, Ultrasound Next Visit Focus/Plan Next Note Type Treatment Note Next Visit Plan Balance training, LE strengthening, gait training
--- NOTE | 2021-05-02 17:41 | PT.OPDS ---
Current Diagnoses Unsteadiness on feet (02/17/21) Unspecified lack of coordination (02/17/21) Visit Care Team Role Provider Type Jia Sheridan MD Attending Provider Physician Family Provider Primary Care Provider Referring Provider Specialty: [facility] Practice Address: [address] [place] [address], [id number] Email: [email or web address] Visit Number Visit Number 16 Discharge Summary PT-OP-B Current Condition Start: 12/13/20 14:37 Freq: Status: Active Protocol: Document 12/13/20 13:45 DCW (Rec: 12/13/20 14:51 DCW [id number]) Current Condition History of Current Condition Onset Date Long-standing history Current Complaints Worsening balance History of Current Condition Pt is an 85 year old female well known to this clinic after multiple courses of rehab over the last few years, presenting today with complaints of worsening balance. Pt reports she has been experiencing increased difficulty with being out walking in her yard, difficulty walking up driveways, and feels like her left leg has been getting weaker. Pt has had multiple falls over the last year, most involved tripping over holes or dips in her yard. 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 PT-OP-C Subjective Start: 12/13/20 14:37 Freq: Status: Active Protocol: Document 02/17/21 15:15 DCW (Rec: 02/17/21 15:59 DCW [id number]) OP-PT Subjective Patient Comments Patient Comments Pt feels like she is progressing well. PT-OP-D Balance Start: 12/13/20 14:37 Freq: Status: Active Protocol: Document 12/13/20 13:45 DCW (Rec: 12/13/20 14:51 DCW [id number]) OP-PT Balance Assessment Sitting Balance Static Sitting Balance Ability Good Dynamic Sitting Balance Ability Good Standing Balance Static Standing Balance Ability Fair Dynamic Standing Balance Ability Poor Device Used SPC Balance Tests Yanez Balance Test Yanez Balance Test Score 30/56 Yanez Impairment Rating 40 to 59% Impaired (Score 23- 33) Yanez Balance Assessment Evaluation Sitting to Standing Ability Several Tries w/Hands Unsupported Stance Safely- 2 minutes Sitting Unsupported, Feet on Floor Safely- 2 minutes Standing to Sitting Ability Assist, Control w/Hands Transfer Ability Safely, Hand Use Unsupported Stance- Eyes Closed Supervision, 10 seconds Unsupported Stance- Eyes Open Supervision to maintain Reaching Forward Standing Safely, 2 inches Pick- Up Object From Floor Requires Assistance Look Behind Shoulder - Standing Supervision w/Turning Turning 360 Degrees Supervision/Verbal Cues Unsupported Stance, Alternating Feet on 2 Steps w/Minimum Assist Stair Unsupported Tandem Stance Small Step- 30 seconds Unilateral Leg Stance Lifts Leg/Unable to Hold Total Score Yanez Total Score (out of 56 points) 30 Yanez Impairment Rating 40 to 59% Impaired (Score 23- 33) Mensah Fall Scale Copyright Permission PT-OP-E Functional Tests Start: 12/13/20 14:37 Freq: Status: Active Protocol: Document 12/13/20 13:45 DCW (Rec: 12/13/20 14:51 DCW [id number]) Functional Tests Dynamic Gait Index (DGI) Score 03/25 Timed Up and Go (TUG) Score 27.28 /c SPC Comments 3-trial average (28.41, 26.21 , 27.22) PT-OP-G Mobility & Gait Start: 12/13/20 14:37 Freq: Status: Active Protocol: Document 12/13/20 13:45 DCW (Rec: 12/13/20 14:51 DCW [id number]) OP Gait Assessment Gait Gait Assistance Required: Independent Assistive Devices Assistive Device Straight Cane Gait Deviations General Gait Pattern Decreased Stride Length, Decreased Feet Clearance, Flexed Trunk,Wide Based Gait Factors Limiting Gait Function Factors Limiting Gait Function Decreased Strength,Limited Range of Motion,Poor Balance Stair Climbing Evaluation Evaluation Level of Assist On Stairs Contact Guard Assistance Devices Stair Climbing Assistive Devices Left Railing,Right Railing Technique/Endurance Stair Climbing Direction Ascend and Descend Stair Climbing Technique Step to Step PT-OP-M Strength Start: 12/13/20 14:37 Freq: Status: Active Protocol: Document 12/13/20 13:45 DCW (Rec: 12/13/20 14:51 DCW [id number]) Hip Strength Hip Manual Muscle Testing Right Flexion (L2) 4- Good- Extension (S1) 4 Good Abduction 3+ Fair+ Adduction 3+ Fair+ External Rotation 4 Good Internal Rotation 4- Good- Left Flexion (L2) 3+ Fair+ Extension (S1) 4- Good- Abduction 3+ Fair+ Adduction 3+ Fair+ External Rotation 4- Good- Internal Rotation 3+ Fair+ Knee Strength Knee Manual Muscle Testing Right Flexion (S2) 4 Good Extension (L3) 4 Good Left Flexion (S2) 4- Good- Extension (L3) 4- Good- PT-OP-T Assessment and Plan Start: 12/13/20 14:37 Freq: Status: Active Protocol: Document 05/02/21 17:40 DCW (Rec: 05/02/21 17:41 DC [id number]) Physical Therapy Assessment Assessment Summary Assessment Pt returning to skilled therapy with new referral, this case will be discharged at this time.
== END 2021-05-03 07:31 ==
LOC: PHYS 15:15
PROVIDERS: Family Provider Family Medicine; PCP Family Medicine; Referring Provider Family Medicine; Visit Provider Family Medicine
DX: R26.81 Unsteadiness on feet (principal); R27.9 Unspecified lack of coordination
CPT/HCPCS: 97112; 97162

== ENCOUNTER → 2021-05-20 11:25 | Outpatient (CLI) | payer MEDICARE, OTHER, SELFPAY ==
--- NOTE | 2021-05-20 | DI.MG.S_ITS ---
BILATERAL DIGITAL SCREENING MAMMOGRAM 3D/2D WITH CAD: 05/20/2021 CLINICAL: Routine screening. Family history of breast cancer. Comparison is made to exams dated: 05/14/2020 mammogram, 05/05/2019 mammogram, and 04/05/2018 mammogram - [facility]. There are scattered fibroglandular elements in both breasts. Current study was also evaluated with a Computer Aided Detection (CAD) system. No significant masses, calcifications, or other findings are seen in either breast. There has been no significant interval change. IMPRESSION: NEGATIVE There is no mammographic evidence of malignancy. A 1 year screening mammogram is recommended. This exam was interpreted at Station ID: [id number]. NOTE: For mammograms, a report in lay terms will be sent to the patient. Approximately 15% of breast malignancies will not be visualized mammographically. In the management of a palpable breast mass, a negative mammogram must not discourage biopsy of a clinically suspicious lesion. Electronically Signed By: Fernando Whatley M.D., jr/wilma:05/20/2021 14:41:53 letter sent: Normal Exam ACR BI-RADS Category 1: Negative [id number]
== END ==
PROVIDERS: Family Provider Family Medicine; PCP Family Medicine; Referring Provider Family Medicine; Visit Provider Family Medicine
DX: Z12.31 Encounter for screening mammogram for malignant neoplasm of breast (principal); Z80.3 Family history of malignant neoplasm of breast
CPT/HCPCS: 77063; 77067

== ENCOUNTER → 2021-08-10 12:06 | Outpatient (CLI) | payer MEDICARE, OTHER, SELFPAY ==
--- NOTE | 2021-08-10 12:12 | DI.RAD.S_ITS ---
PROCEDURE: XR HIP W PEL IF DONE RT 2V INDICATIONS: Radiculopathy, lumbar region TECHNIQUE: AP pelvis with lateral view(s) of the right hip(s). COMPARISON: [facility], , XR LUMBAR SPINE MIN 4V, 06/29/2020, 12:36. FINDINGS: Bones: No fractures or dislocations. Pelvic ring appears intact. No suspicious bony lesions. There are mild degenerative changes of the hips. Degenerative changes of the visualized lower lumbar spine. The sacroiliac joints have degenerative changes. Soft tissues: The visualized bowel gas pattern is normal. No suspicious soft tissue calcifications. IMPRESSION: Mild degenerative changes of both hips and sacroiliac joints. Dictated by: Bruce Julien M.D. on 08/10/2021 at 14:10 Approved by: Bruce Julien M.D. on 08/10/2021 at 14:12
--- NOTE | 2021-08-10 12:12 | DI.RAD.S_ITS ---
PROCEDURE: XR LUMBAR SPINE 2-3V INDICATIONS: Radiculopathy, lumbar region TECHNIQUE: 3 views of the lumbar spine were acquired. COMPARISON: [facility], , XR LUMBAR SPINE MIN 4V, 06/29/2020, 12:36. FINDINGS: Bones: There are severe degenerative changes of the lumbar spine with leftward scoliosis. Disc space narrowing is seen throughout the visualized thoracic spine and the lumbar spine. No vertebral body height loss. Soft tissues: Overlying bowel gas pattern is normal. No suspicious soft tissue calcifications. IMPRESSION: 1. Multilevel severe lumbar spondylosis. 2. Levoscoliosis with a Reeder angle of 21?. Dictated by: Bruce Julien M.D. on 08/10/2021 at 14:07 Approved by: Bruce Julien M.D. on 08/10/2021 at 14:09
== END ==
PROVIDERS: Family Provider Family Medicine; PCP Family Medicine; Referring Provider Family Medicine; Visit Provider Family Medicine
DX: M47.26 Other spondylosis with radiculopathy, lumbar region (principal); M47.28 Other spondylosis with radiculopathy, sacral and sacrococcygeal region; M41.86 Other forms of scoliosis, lumbar region
CPT/HCPCS: 72100; 73502

== ENCOUNTER → 2021-08-22 13:52 | Outpatient (CLI) | payer MEDICARE, OTHER, SELFPAY ==
[2021-08-22 15:41] LABS: COVID19 -Nasal RAPID Negative (Negative)
== END ==
PROVIDERS: Family Provider Family Medicine; PCP Family Medicine; Visit Provider Physical Medicine & Rehabilitation
DX: Z20.822 Contact with and (suspected) exposure to COVID-19 (principal)
CPT/HCPCS: 87635; C9803

== ENCOUNTER 2021-08-23 14:52 | Outpatient (CLI) | payer MEDICARE, OTHER, SELFPAY ==
[2021-08-23] VITALS (8 sets, daily range): BP systolic 126–162; BP diastolic 56–75; PULSE 69–84; RESP 16–19; TEMP 36.7; O2SAT 96–100
--- NOTE | 2021-08-23 14:54 | DI.RAD.S_ITS ---
PROCEDURE: PAIN L/S TRANSFORAMINAL INJECT INDICATIONS: SPONDYLOSIS COMPARISON: [facility], , PAIN L/S TRANSFORAMINAL INJECT, 01/18/2021, 13:54. FINDINGS: Fluoroscopic spot filming was performed to verify placement of spinal needles at the mid/lower lumbar level(s), as labeled on the films. Appropriate location(s) of the needle tip(s) was confirmed by injection of iodinated contrast. IMPRESSION: Needle placement as above. Dictated by: Matt Olivo M.D. on 08/23/2021 at 16:26 Approved by: Matt Olivo M.D. on 08/23/2021 at 16:26
[2021-08-23] MEDS: MIDAZOLAM 2 MG/2 ML VIAL IV (15:53)
[2021-08-23] MEDS: IOPAMIDOL 15 ML VIAL 3 ML INJ (15:55)
[2021-08-23] MEDS: DEXAMETHASONE 10 MG/ML VIAL 20 MG INJ (15:56)
[2021-08-23] MEDS: BETAMETHASONE 30 MG/5 ML MDV 6 MG INJ (15:56)
[2021-08-23] MEDS: BUPIVACAINE 0.25% (PF) VIAL 2 ML INJ (15:56)
--- NOTE | 2021-08-23 16:12 | P.PCN_ITS ---
Date/Time/Diagnoses Date of procedure: 08/23/21 Time of procedure: 16:12 Pre-procedure diagnosis: 1. FORAMINAL STENOSIS WITH LE SYMPTOMS Post-procedure diagnosis: same Procedure Notes Procedure: 1. FLUOROSCOPICALLY GUIDED CONTRAST CONTROLLED TRANSFORAMINAL EPIDURAL STEROID INJECTION - RIGHT L3/4 TFESI Indications: Stacey is referred by Dr. Sheridan for treatment of Foraminal Stenosis with right LE Symptoms Physician: Al Kunz Total Fluoroscopy time (seconds): 8 Total sedation minutes: 10 Complications: none Procedure in detail & Post-procedure care: FINDINGS Foraminal Nerve Root Compression secondary to disc disease and facet hypertrophy DESCRIPTION OF PROCEDURE Following review of allergy and review of potential side effects and complications, including, but not necessarily limited to, infection, allergic reaction, local tissue breakdown, stroke, temporary or permanent nerve injury, paralysis, and possible , the patient indicated that the patient understood and agreed to proceed. An informed consent document was signed by the patient, witnessed by a nurse, and placed in the patient's chart. Additionally, other treatment options including medications, modalities, and physical therapy were reviewed with the patient. After review of previous anaesthesic history and IV conscious sedation the patient was deemed safe to proceed with today?s procedure with IV conscious sedation as ASA class II designation. Safety time-out was performed to confirm patient ID, procedure to be performed and site of procedure. IV sedation was accomplished with a combination of 1mg of Versed was administered by the RN after DO order, titrated to patient comfort during the course of the procedure while the patient remained responsive to all verbal commands In the prone position following sterile prep and drape of the lumbar region, the right L3/4 posterior neuroforamen was identified fluoroscopically. The skin was anesthetized via a 25-gauge 1.5-inch needle with 1% lidocaine solution. At this point, a 25-gauge 3.5-inch spinal needle was atraumatically introduced and advanced under fluoroscopic guidance through the posterior right L3/4 neuroforamen to approximately the anterior aspect of the canal. Depth was confirmed on lateral view. Following negative aspiration, injection of approximately 1.5 cc of Isovue 200 under live fluoroscopy in the AP view con firmed excellent flow along the nerve root, into the epidural space without vascular or intrathecal uptake observed Radiological data, including multiple fluoroscopic views of the lumbosacral spine, reveal a spinal needle at the right L3/4 posterior neuroforamen. Subsequent views show flow of contrast material flowing superiorly and inferiorly along the nerve root confirming epidural flow. Subsequently, a test dose of 1.5 cc of 1% lidocaine solution was administered and patient was observed for two minutes for signs or symptoms of complications, including abdominal pain, shortness of breath, bilateral upper or lower extremity weakness, nausea and vomiting, prior to steroid injection. At this point, a total of 3cc or 20mg of dexamethasone and 6mg of betamethasone was injected without incident. The patient tolerated the procedure well without signs or symptoms of complications prior to transfer to the recovery area continued monitoring without incident. The patient was then transferred to the recovery area where they were observed for an appropriate time after the injection. The patient reported a VAS score of 7 prior to the procedure and a post-procedure VAS of 0. POST OP INSTRUCTIONS The patient was provided a Pain Log to continue to record their response to the target-specific procedure prior to follow-up visit with their referring ph ysician. Additionally, specific post-injection care instructions and a contact number to our office were provided if concerns arise regarding possible complications associated with the procedure are suspected.
== END 2021-08-23 16:29 | disposition home or self-care (01) ==
PROVIDERS: Family Provider Family Medicine; PCP Family Medicine; Referring Provider Physical Medicine & Rehabilitation; Visit Provider Physical Medicine & Rehabilitation
DX: M48.061 Spinal stenosis, lumbar region without neurogenic claudication (principal); M51.16 Intervertebral disc disorders with radiculopathy, lumbar region
CPT/HCPCS: 64483; 99152; J0702; J1100; J2250

== ENCOUNTER → 2021-09-20 16:50 | Outpatient (CLI) | payer MEDICARE, OTHER, SELFPAY ==
--- NOTE | 2021-09-20 | DI.US.S_ITS ---
PROCEDURE: US PERIPH VENOUS LOW EXTREM LT INDICATIONS: R22.2 TECHNIQUE: Real-time imaging, as well as color and pulse Doppler interrogation, were performed of the lower extremity deep veins from the inguinal ligament to the popliteal fossa. COMPARISON: None. FINDINGS: The common femoral, femoral and popliteal veins are normally compressible, and free of intraluminal thrombus. Color and pulse Doppler demonstrate normal phasic intraluminal flow. There is normal augmentation response to distal compression maneuver. IMPRESSION: Negative for deep venous thrombosis. Dictated by: Arron Coleman M.D. on 09/20/2021 at 17:06 Approved by: Arron Coleman M.D. on 09/20/2021 at 17:06
== END ==
PROVIDERS: Family Provider Family Medicine; PCP Family Medicine; Referring Provider Family Medicine; Visit Provider Family Medicine
DX: R22.42 Localized swelling, mass and lump, left lower limb (principal)
CPT/HCPCS: 93971

== ENCOUNTER → 2021-10-13 15:12 | Outpatient (CLI) | payer MEDICARE, OTHER, SELFPAY ==
--- NOTE | 2021-10-13 | DI.RAD.S_ITS ---
PROCEDURE: XR CHEST 2V INDICATIONS: SHORTNESS OF BREATH TECHNIQUE: 2 views of the chest were acquired. COMPARISON: [facility], , CHEST 1 VIEW, 10/13/2015, 19:57. FINDINGS: Surgical changes and devices: None. Lungs and pleura: Lungs are clear. No pleural effusions or pneumothorax. Mediastinum: Mediastinal contours are normal. Heart size is normal. Large retrocardiac hiatal hernia. Bones and chest wall: No suspicious bony abnormalities. Multilevel degenerative disc changes with severe degenerative changes identified in the visualized lumbar spine. Soft tissues appear unremarkable. IMPRESSION: No acute cardiopulmonary disease process. Dictated by: Radha Rodriguez MD, PhD on 10/13/2021 at 17:20 Approved by: Radha Rodriguez MD, PhD on 10/13/2021 at 17:21
== END ==
PROVIDERS: Family Provider Family Medicine; PCP Family Medicine; Referring Provider Family Medicine; Visit Provider Family Medicine
DX: R06.02 Shortness of breath (principal)
CPT/HCPCS: 71046

== ENCOUNTER 2021-10-22 10:11 | Observation (INO) | payer MEDICARE, OTHER, SELFPAY ==
[2021-10-22] VITALS (16 sets, daily range): BP systolic 140–161; BP diastolic 51–74; PULSE 60–88; RESP 14–30; TEMP 36.6–37.6; O2SAT 84–99; BMI 26.7
--- NOTE | 2021-10-22 10:17 | ED_ITS ---
HPI - Abdominal Pain General Chief Complaint: GI Bleed Stated Complaint: loose bloody stool Time Seen by Provider: 10/22/21 10:15 History of Present Illness HPI narrative: This 86-year-old woman with no significant past medical history reports to the emergency department today with abdominal pain, hematochezia and tremor. She says yesterday she saw a scant amount of blood in her pad in her underwear and was not sure whether it was vaginal or rectal but this morning she is quite carlo r that it is red rectal bleeding. She says that she had lump be bloody stool this morning. She also has some abdominal pain and she has been shaking quite a bit. No nausea or vomiting, no dysuria though she does endorse chronic incontinence. She says her throat is dry. No URI symptoms otherwise. No back pain or flank pain. Related Data Home Medications Medication Instructions Recorded Confirmed acetaminophen 500 mg tablet 500 mg PO Q6H PRN 06/16/20 08/17/21 (Tylenol Extra Strength) darifenacin 15 mg tablet,extended 15 mg PO DAILY 06/16/20 08/17/21 release 24 hr docusate sodium 100 mg capsule 100 mg PO DAILY 06/16/20 08/17/21 (Dulcolax Stool Softener (docusate)) esomeprazole magnesium 20 mg 20 mg PO DAILY 06/16/20 08/17/21 capsule,delayed release (Nexium) estradiol 10 mcg vaginal tablet 10 mcg vaginal 2XW 06/16/20 08/17/21 etodolac 400 mg tablet 400 mg PO BID 06/16/20 08/17/21 losartan 100 mg tablet 100 mg PO DAILY 06/16/20 08/17/21 lutein 20 mg capsule 20 mg PO DAILY 06/16/20 08/17/21 oxybutynin chloride 5 mg tablet 5 mg PO BID-TID PRN 06/16/20 08/17/21 simvastatin 10 mg tablet 10 mg PO BEDTIME 06/16/20 08/17/21 tramadol 50 mg tablet 50 mg PO Q8H PRN 06/16/20 08/17/21 cyclosporine 0.05 % eye drops in a 1 drp EYE-BOTH ONCE 08/17/21 08/17/21 dropperette latanoprost 0.005 % eye drops 1 drp EYE-BOTH DAILY 08/17/21 08/17/21 Previous Rx's Medication Instructions Recorded gabapentin 300 mg capsule 300 mg PO .COMPLEX #90 caps 10/05/21 Allergies Allergy/AdvReac Type Severity Reaction Status Date / Time ciprofloxacin [From Cipro] Allergy Intermediate MOUTH SORES Verified 10/22/21 11:23 codeine [CODEINE] Allergy Unknown Unverified 08/17/21 13:17 Review of Systems Review of Systems Narrative: Complete review of systems is otherwise negative Patient History Medical History Facet arthropathy, lumbar Gait instability Lumbar radiculopathy Multilevel foraminal stenosis Scoliosis Surgical History H/O bladder repair surgery Family History Father Bleeding acute gastric ulcer Mother Cancer Arthritis Social History Smoking Status: Never smoker Smoking Status: Never smoker Exam Narrative Exam Narrative: GENERAL: Alert, cooperative and in no distress. HEAD: Atraumatic. Normocephalic. EYES: Sclera are clear without icterus. Extraocular movements are full. ENT: No rhinorrhea. NECK: Supple. Full range of motion. CARDIOVASCULAR: Normal rate and rhythm without murmur gallop or rub. RESPIRATORY: Clear to auscultation. Breath sounds equal bilaterally. No wheezes, rales, or rhonchi. GASTROINTESTINAL: Abdomen soft, non-tender, nondistended. Rectal examination: Normal rectal tone, no mass palpable, scant blood on the examining glove. No melena, no stool. EXTREMITIES: No edema, full range of motion. No obvious trauma. BACK: Normal inspection, no CVA tenderness. NEURO: Nonfocal examination, normal speech, face is symmetric, normal upper extremity strength bilaterally, normal lower extremity strength bilaterally. Extraocular movements are full. SKIN: No rash or erythema of visible areas PSYCH: Normally oriented. Normal range of affect. Appropriate behavior Initial Vital Signs Initial Vital Signs: Vital Signs Temperature 99.6 F 10/22/21 10:11 Pulse Rate 80 10/22/21 10:11 Respiratory Rate 18 10/22/21 10:11 Blood Pressure 154/67 H 10/22/21 10:11 Pulse Oximetry 96 10/22/21 10:11 Oxygen Delivery Method 10/22/21 10:11 Course Orders Ordered: ED Orders 10/22/21 10:19 XR chest 1V Stat 10/22/21 10:22 CT abdomen pelvis w con Stat CBC Auto Diff [Complete Blood Count AUTO DIFF] Stat CMP [Comprehensive Metabolic Panel] Stat Lactate (Lactic Acid) Stat Lipase Stat Troponin I Stat 10/22/21 10:25 COVID19 -Nasal RAPID/Pre-Proc Stat UA dip and micro [Urinalysis and Microscopic] Stat Urine Culture Stat 10/22/21 11:24 EKG-12 Lead Stat 10/22/21 14:08 Consult to General Surgery Stat 10/22/21 14:11 Blood Culture Stat Discontinued Medications Acetaminophen (Acetaminophen 325 Mg Tablet) 975 mg PO NOW ONE Stop: 10/22/21 10:19 Last Admin: 10/22/21 10:48 Dose: 975 mg Documented By: MILAD Piperacillin Sod/Tazobactam (Sod 4.5 gm/ Sodium Chloride) 100 mls @ 200 mls/hr IV NOW ONE Stop: 10/22/21 14:12 Consultations Consultation #1: Spoke to Dr. Solares who agrees to consult in the morning. Recommends NPO after MN Consultation #2: Will speak to hospitalist and admit. Vital Signs Vital signs: Vital Signs - 8 hr 10/22/21 10:11 10/22/21 10:19 10/22/21 10:20 Temperature 99.6 F Pulse Rate 80 85 76 Respiratory Rate 18 28 H 21 Blood Pressure 154/67 H Pulse Oximetry 96 95 97 Oxygen Delivery Method Room Air 10/22/21 10:20 10/22/21 10:30 10/22/21 10:30 Temperature Pulse Rate 88 Respiratory Rate Blood Pressure 154/67 H 155/74 H Pulse Oximetry 97 Oxygen Delivery Method 10/22/21 11:00 10/22/21 11:00 10/22/21 11:18 Temperature 99.7 F H 99.7 F H Pulse Rate 84 Respiratory Rate 18 Blood Pressure 156/69 H Pulse Oximetry 99 Oxygen Delivery Method MDM - Abdominal Pain Lab Data Result diagrams: 10/22/21 10:22 10/22/21 10:22 Labs: Lab Results 10/22/21 10/22/21 10/22/21 Range/Units 10:22 10:22 10:22 WBC 10.4 (4.5-11.0) X10^3/uL RBC 4.43 (4.0-5.2) X10^6/uL Hgb 12.7 (12.0-16.0) g/dL Hct 38.5 (36-46) % MCV 87.0 (80-100) fL MCH 28.6 (26-34) PG MCHC 32.8 (30-36) % RDW 14.5 (11.6-14.8) % Plt Count 280 (150-400) X10^3/uL Neut % (Auto) 81.9 H (50-75) % Lymph % (Auto) 10.0 L (25-40) % [place] % (Auto) 7.3 (3-14) % Eos % (Auto) 0.3 L (2-4) % Baso % (Auto) 0.5 (0-2) % Neut # (Auto) 8500 H (2802-3247) /uL Lymph # (Auto) 1000 L (4740-8346) /uL [place] # (Auto) 800 (0-900) /uL Eos # (Auto) 0 (0-450) /uL Baso # (Auto) 0 (0-100) /uL Sodium 135 L (137-145) mmol/L Potassium 3.6 (3.4-5.1) mmol/L Chloride 96 L (98-107) mmol/L Carbon Dioxide 29 (22-32) mmol/L BUN 20 H (7-17) mg/dL Creatinine 0.76 (0.52-1.04) mg/dL Estimated GFR > 60 (>60) mL/min BUN/Creatinine Ratio 26.3 H (6-22) Glucose 117 H (80-110) mg/dL Lactate (0.7-2.1) mmol/L Calcium 8.9 (8.4-10.2) mg/dL Total Bilirubin 0.9 (0.2-1.3) mg/dL AST 37 H (14-36) IU/L ALT 32 (<35) IU/L Alkaline Phosphatase 94 (38-126) U/L Troponin I < 0.012 (0.01-0.034) ng/mL Total Protein 7.2 (6.3-8.2) g/dL Albumin 4.1 (3.5-5.0) g/dL Globulin 3.1 (1.7-4.1) g/dL Albumin/Globulin Ratio 1.3 (1.0-2.8) Lipase 55 (23-300) U/L Urine Color Urine Appearance Urine pH (4.5-8.0) Ur Specific [place] (1.000-1.035) Urine Protein (Negative) Urine Glucose (UA) (Negative) g/dL Urine Ketones (NEGATIVE) Urine Occult Blood (Negative) Urine Nitrate (Negative) Urine Bilirubin (NEGATIVE) Urine Urobilinogen (0.2) E.U./dL Ur Leukocyte Esterase (NEGATIVE) Urine RBC (0-5/HPF) Urine WBC (0-5/HPF) Ur Squamous Epith Cells (0-5/HPF) Urine Bacteria (None) Ur Culture Indicated? SARS-CoV-2 (PCR) (Negative) 10/22/21 10/22/21 10/22/21 Range/Units 10:22 10:25 10:25 WBC (4.5-11.0) X10^3/uL RBC (4.0-5.2) X10^6/uL Hgb (12.0-16.0) g/dL Hct (36-46) % MCV (80-100) fL MCH (26-34) PG MCHC (30-36) % RDW (11.6-14.8) % Plt Count (150-400) X10^3/uL Neut % (Auto) (50-75) % Lymph % (Auto) (25-40) % [place] % (Auto) (3-14) % Eos % (Auto) (2-4) % Baso % (Auto) (0-2) % Neut # (Auto) (3616-3143) /uL Lymph # (Auto) (3617-3325) /uL [place] # (Auto) (0-900) /uL Eos # (Auto) (0-450) /uL Baso # (Auto) (0-100) /uL Sodium (137-145) mmol/L Potassium (3.4-5.1) mmol/L Chloride (98-107) mmol/L Carbon Dioxide (22-32) mmol/L BUN (7-17) mg/dL Creatinine (0.52-1.04) mg/dL Estimated GFR (>60) mL/min BUN/Creatinine Ratio (6-22) Glucose (80-110) mg/dL Lactate 1.7 (0.7-2.1) mmol/L Calcium (8.4-10.2) mg/dL Total Bilirubin (0.2-1.3) mg/dL AST (14-36) IU/L ALT (<35) IU/L Alkaline Phosphatase (38-126) U/L Troponin I (0.01-0.034) ng/mL Total Protein (6.3-8.2) g/dL Albumin (3.5-5.0) g/dL Globulin (1.7-4.1) g/dL Albumin/Globulin Ratio (1.0-2.8) Lipase (23-300) U/L Urine Color Yellow Urine Appearance Sl cloudy Urine pH 5.5 (4.5-8.0) Ur Specific [place] 1.010 (1.000-1.035) Urine Protein Negative (Negative) Urine Glucose (UA) Negative (Negative) g/dL Urine Ketones Negative (NEGATIVE) Urine Occult Blood Trace-intact (Negative) Urine Nitrate Negative (Negative) Urine Bilirubin Negative (NEGATIVE) Urine Urobilinogen 0.2 (0.2) E.U./dL Ur Leukocyte Esterase Negative (NEGATIVE) Urine RBC 0-1/hpf (0-5/HPF) Urine WBC 5-10/hpf H (0-5/HPF) Ur Squamous Epith Cells 0-1 /hpf (0-5/HPF) Urine Bacteria Many (>30) H (None) Ur Culture Indicated? Specimen cultured SARS-CoV-2 (PCR) Negative (Negative) Point of care testing: Point of Care Testing Stool Occult Blood Positive Imaging Data Chest x-ray: Radiologist's Impression: IMPRESSION:? No acute cardiopulmonary abnormality. ? ? Dictated by: Bruce Julien M.D. on 10/22/2021 at 11:35 ? ? Approved by: Bruce Julien M.D. on 10/22/2021 at 11:36 ? CT scan - abdomen/pelvis: Radiologist's Impression: IMPRESSION: 1. Circumferential wall thickening of the splenic fracture, left colon, and sigmoid colon.? Differential diagnosis includes infectious or inflammatory colitis as well as ischemic colitis. 2. Large hiatal hernia containing the stomach and tail of the pancreas.? ? ? Dictated by: Bruce Julien M.D. on 10/22/2021 at 11:36 ? ? Approved by: Bruce Julien M.D. on 10/22/2021 at 11:42 ? Discharge Plan Departure Patient Disposition: Admitted As Inpatient Clinical Impression: Acute lower gastrointestinal bleeding, Urinary tract infection, Abdominal pain
--- NOTE | 2021-10-22 10:19 | DI.RAD.S_ITS ---
PROCEDURE: XR CHEST 1V INDICATIONS: Palpitations TECHNIQUE: One view of the chest was acquired. COMPARISON: [facility], CR, XR CHEST 2V, 10/13/2021, 15:35. FINDINGS: Surgical changes and devices: None. Lungs and pleura: Lungs are clear. No pleural effusions or pneumothorax. Mediastinum: Mediastinal contours appear normal. Heart size is normal. The aorta has atherosclerotic calcifications. Bones and chest wall: There is rightward curvature of the thoracic spine. No suspicious bony lesions. Overlying soft tissues appear unremarkable. IMPRESSION: No acute cardiopulmonary abnormality. Dictated by: Bruce Julien M.D. on 10/22/2021 at 11:35 Approved by: Bruce Julien M.D. on 10/22/2021 at 11:36
--- NOTE | 2021-10-22 10:22 | DI.CT.S_ITS ---
PROCEDURE: CT ABDOMEN PELVIS W CON INDICATIONS: Fever and abdominal pain TECHNIQUE: After the administration of oral and intravenous contrast, axial sections were acquired from the lung bases to the pubic symphysis. Coronal and sagittal reformats were performed. For radiation dose reduction, the following was used: automated exposure control, adjustment of mA and/or kV according to patient size. COMPARISON:None. FINDINGS: Image quality: Excellent. Lung bases: Left basilar atelectasis, the lung bases otherwise clear. Heart size is normal. Large paraesophageal hiatal hernia containing most of the stomach and the tail of the pancreas within chest. Solid organs: Liver: The liver has no mass or intrahepatic biliary ductal dilatation. The portal vein and hepatic veins are patent. Biliary: The gallbladder has no gallstones, pericholecystic fluid, gallbladder wall thickening, or surrounding inflammatory change. Pancreas: The pancreas has no mass or ductal dilatation. There is no surrounding inflammation. The tail of the pancreas extends into the hiatal hernia. Spleen: Normal size. There are no masses. Adrenals: No hypertrophy or nodules. Kidneys: No obstructive calculus or hydronephrosis. No solid mass. No cystic mass. Peritoneum and bowel: Large hiatal hernia above. The small bowel has a normal caliber and appearance. The terminal ileum is normal. The right colon transverse colon are normal. The splenic flexure, left, sigmoid colon have diffuse wall thickening and edema to the rectosigmoid junction. The appendix is not definitively visualized and therefore acute appendicitis cannot be excluded; however there are no secondary findings to suggest acute appendicitis. No free fluid or air. Nodes and vessels: No retroperitoneal or mesenteric adenopathy by size criteria. Aorta and inferior vena cava are normal in size. Miscellaneous: No abdominal wall mass or hernia. PELVIS: Genitourinary: The bladder has no wall thickening or mass. The bladder is decompressed with [place] Bones: Degenerative changes with no focal abnormality. Leftward curvature of thoracolumbar spine No vertebral body compression fractures. IMPRESSION: 1. Circumferential wall thickening of the splenic fracture, left colon, and sigmoid colon. Differential diagnosis includes infectious or inflammatory colitis as well as ischemic colitis. 2. Large hiatal hernia containing the stomach and tail of the pancreas. Dictated by: Bruce Julien M.D. on 10/22/2021 at 11:36 Approved by: Bruce Julien M.D. on 10/22/2021 at 11:42
[2021-10-22] MEDS: ACETAMINOPHEN 325 MG TABLET 975 MG PO (10:48)
[2021-10-22 10:49] LABS: Add Manual Diff / Slide Review NO; Basophils Absolute Auto 0 /uL (0-100); Basophils Percent Auto 0.5 % (0-2); Eosinophils Absolute Auto 0 /uL (0-450); Eosinophils Percent Auto 0.3 % (2-4); Hematocrit 38.5 % (36-46); Hemoglobin 12.7 g/dL (12.0-16.0); Lymphocytes Absolute Auto 1000 /uL (1100-4500); Mean Corpuscular HGB Conc 32.8 % (30-36); Mean Corpuscular Hemoglobin 28.6 PG (26-34); Monocytes Absolute Auto 800 /uL (0-900); Monocytes Percent Auto 7.3 % (3-14); Neutrophils Absolute Auto 8500 /uL (1500-7000); Neutrophils Percent Auto 81.9 % (50-75); Platelet Count 280 X10^3/uL (150-400); Red Blood Cell Count 4.43 X10^6/uL (4.0-5.2); Red Cell Distribution Width 14.5 % (11.6-14.8); White Blood Cell Count 10.4 X10^3/uL (4.5-11.0)
[2021-10-22 11:00] LABS: Alanine Aminotransferase 32 IU/L (<35); Albumin 4.1 g/dL (3.5-5.0); Albumin Globulin Ratio 1.3 (1.0-2.8); Alkaline Phosphatase 94 U/L (38-126); Aspartate Aminotransferase 37 IU/L (14-36); BUN Creatinine Ratio 26.3 (6-22); Bilirubin Total 0.9 mg/dL (0.2-1.3); Blood Urea Nitrogen 20 mg/dL (7-17); Calcium 8.9 mg/dL (8.4-10.2); Carbon Dioxide 29 mmol/L (22-32); Chloride 96 mmol/L (98-107); Estimated Glomerular Filt Rate > 60 mL/min (>60); Globulin 3.1 g/dL (1.7-4.1); Glucose 117 mg/dL (80-110); HEMOLYSIS 18 (0-50); Potassium 3.6 mmol/L (3.4-5.1); Sodium 135 mmol/L (137-145); Total Protein 7.2 g/dL (6.3-8.2)
[2021-10-22 11:01] LABS: Lactate (Lactic Acid) 1.7 mmol/L (0.7-2.1)
[2021-10-22 11:04] LABS: Appearance Urine UA SL CLOUDY; Bilirubin Urine UA NEGATIVE (NEGATIVE); Color Urine UA YELLOW; Glucose Urine UA NEGATIVE (Negative); Ketones Urine UA NEGATIVE (NEGATIVE); Leukocyte Esterase Urine UA NEGATIVE (NEGATIVE); Nitrite Urine UA NEGATIVE (Negative); Occult Blood Urine UA TRACE-INTACT (Negative); Protein Urine UA NEGATIVE (Negative); Urobilinogen Urine UA 0.2 E.U./dL (0.2)
[2021-10-22 11:05] LABS: pH Urine UA 5.5 (4.5-8.0)
[2021-10-22 11:11] LABS: Bacteria Urine Many (>30); Culture Indicated Urine Specimen Cultured; RBC Urine 0-1/HPF (0-5/HPF); Squamous Epithelial Cell Urine 0-1 /HPF (0-5/HPF); WBC Urine 5-10/HPF (0-5/HPF)
[2021-10-22 11:20] LABS: COVID19 -Nasal RAPID Negative (Negative)
[2021-10-22 11:32] LABS: Lipase 55 U/L (23-300)
[2021-10-22 11:45] LABS: Troponin I < 0.012 ng/mL (0.01-0.034)
--- NOTE | 2021-10-22 11:54 | PC.NURSE ---
Upon assessing pt's face the left eye lid is lower than the right eye lid. When asked to squeeze her eyes shut and open them wide there is no asymmetry noted. When asked to smile with her teeth, the right side of the face does not raise like the right side does. Pt has equal strength in bother her legs and arms. notified.
--- NOTE | 2021-10-22 14:54 | P.HP_ITS ---
History of Present Illness History of Present Illness Date Patient Seen: 10/22/21 Time Patient Seen: 17:04 Chief complaint: loose bloody stool Narrative: Stacey Lawson is a 86-year-old female with past medical history of hypertension, hyperlipidemia, GERD, and overactive bladder who presents with lower quadrant abdominal pain, dysuria and bright red blood per rectum. Patient states she was in her normal state of health until last night she suddenly vomited before bed. She denied epigastric abdominal pain last night but developed lower quadrant abdominal pain this morning past some bright red blood with mucus her last bowel movement was yesterday and was normal. She was quite concerned about passing the blood so she called the paramedics. She has never had this before. She had a colonoscopy several years ago and denies any significant findings. She denies any black stools. She notes chronic intermittent diarrhea but is unchanged from previous. She does note some dysuria for the past few days. She feels weak. She denies fever, chills, chest pain, shortness a breath, or headache. Patient History Medical History Facet arthropathy, lumbar Gait instability Lumbar radiculopathy Multilevel foraminal stenosis Scoliosis Surgical History H/O bladder repair surgery Family & Social History Family History Father Bleeding acute gastric ulcer Mother Cancer Arthritis Safety & Behavioral: Feels Safe in Current Yes Environment Been Physically Hurt or No Threatened By a Person Tobacco & Substance use: Smoking Status Never smoker Substance Use Type does not use Meds Home Medications and Allergies Home Medications Medication Instructions Recorded Confirmed Type acetaminophen 500 mg tablet 500 mg PO Q6H PRN Back Pain 06/16/20 10/22/21 Histor y (Tylenol Extra Strength) darifenacin 15 mg tablet,extended 15 mg PO DAILY 06/16/20 10/22/21 History release 24 hr docusate sodium 100 mg capsule 100 mg PO DAILY 06/16/20 10/22/21 History (Dulcolax Stool Softener (docusate)) esomeprazole magnesium 20 mg 20 mg PO DAILY 06/16/20 10/22/21 History capsule,delayed release (Nexium) estradiol 10 mcg vaginal tablet 10 mcg vaginal 2XW 06/16/20 10/22/21 History etodolac 400 mg tablet 400 mg PO BID 06/16/20 10/22/21 History losartan 100 mg tablet 100 mg PO DAILY 06/16/20 10/22/21 History lutein 20 mg capsule 20 mg PO DAILY 06/16/20 10/22/21 History oxybutynin chloride 5 mg tablet 5 mg PO BID-TID PRN unknown 06/16/20 10/22/21 History simvastatin 10 mg tablet 10 mg PO BEDTIME 06/16/20 10/22/21 History tramadol 50 mg tablet 50 mg PO Q8H PRN Back pain 06/16/20 10/22/21 History cyclosporine 0.05 % eye drops in a 1 drp EYE-BOTH ONCE 08/17/21 10/22/21 History dropperette latanoprost 0.005 % eye drops 1 drp EYE-BOTH DAILY 08/17/21 10/22/21 History gabapentin 300 mg capsule 300 mg PO .COMPLEX #90 caps 10/05/21 10/22/21 Rx Allergies Allergy/AdvReac Type Severity Reaction Status Date / Time ciprofloxacin [From Cipro] Allergy Intermediate MOUTH SORES Verified 10/22/21 11:23 codeine [CODEINE] Allergy Unknown Unverified 08/17/21 13:17 Review of Systems Review of Systems Narrative: All other systems reviewed with the patient and are negative unless otherwise stated. Exam Vital Signs (past 8 hours): - 10/22/21 10:11 10/22/21 10:19 10/22/21 10:20 Temperature 99.6 F Pulse Rate 80 85 76 Respiratory Rate 18 28 H 21 Blood Pressure 154/67 H Pulse Oximetry 96 95 97 Oxygen Delivery Method Room Air 10/22/21 10:20 10/22/21 10:30 10/22/21 10:30 Temperature Pulse Rate 88 Respiratory Rate Blood Pressure 154/67 H 155/74 H Pulse Oximetry 97 Oxygen Delivery Method 10/22/21 11:00 10/22/21 11:00 10/22/21 11:18 Temperature 99.7 F H 99.7 F H Pulse Rate 84 Respiratory Rate 18 Blood Pressure 156/69 H Pulse Oximetry 99 Oxygen Delivery Method 10/22/21 11:30 10/22/21 12:00 10/22/21 12:30 Temperature 99.7 F H 99.5 F 99.1 F Pulse Rate 67 62 73 Respiratory Rate 17 25 H 30 H Blood Pressure Pulse Oximetry 84 L 97 96 Oxygen Delivery Method 10/22/21 13:00 10/22/21 13:30 10/22/21 14:00 Temperature 99.0 F 99.0 F 99.0 F Pulse Rate 64 60 77 Respiratory Rate 14 14 20 Blood Pressure Pulse Oximetry 97 97 96 Oxygen Delivery Method 10/22/21 14:30 Temperature 99.0 F Pulse Rate 68 Respiratory Rate 25 H Blood Pressure Pulse Oximetry 97 Oxygen Delivery Method Oxygen Delivery Method Room Air Narrative Exam Narrative: GEN: Elderly female in no acute distress, appears somewhat ill HEENT: moist mucous membranes, PERRL NECK: trachea midline, no JVD CV: regular rate and rhythm, 2/6 systolic murmur present PULM: clear bilaterally ABD: soft, tender in suprapubic area, nondistended, no organomegaly EXT: warm and well perfused with no edema NEURO: awake, alert, oriented, no focal deficits Objective Labs Result Diagrams: 10/22/21 10:22 10/22/21 10:22 Labs: Laboratory Results - last 24 hr 10/22/21 10/22/21 10/22/21 10:22 10:22 10:22 WBC 10.4 RBC 4.43 Hgb 12.7 Hct 38.5 MCV 87.0 MCH 28.6 MCHC 32.8 RDW 14.5 Plt Count 280 Neut % (Auto) 81.9 H Lymph % (Auto) 10.0 L [place] % (Auto) 7.3 Eos % (Auto) 0.3 L Baso % (Auto) 0.5 Neut # (Auto) 8500 H Lymph # (Auto) 1000 L [place] # (Auto) 800 Eos # (Auto) 0 Baso # (Auto) 0 Sodium 135 L Potassium 3.6 Chloride 96 L Carbon Dioxide 29 BUN 20 H Creatinine 0.76 Estimated GFR > 60 BUN/Creatinine Ratio 26.3 H Glucose 117 H Lactate Calcium 8.9 Total Bilirubin 0.9 AST 37 H ALT 32 Alkaline Phosphatase 94 Troponin I < 0.012 Total Protein 7.2 Albumin 4.1 Globulin 3.1 Albumin/Globulin Ratio 1.3 Lipase 55 Urine Color Urine Appearance Urine pH Ur Specific [place] Urine Protein Urine Glucose (UA) Urine Ketones Urine Occult Blood Urine Nitrate Urine Bilirubin Urine Urobilinogen Ur Leukocyte Esterase Urine RBC Urine WBC Ur Squamous Epith Cells Urine Bacteria Ur Culture Indicated? SARS-CoV-2 (PCR) 10/22/21 10/22/21 10/22/21 10:22 10:25 10:25 WBC RBC Hgb Hct MCV MCH MCHC RDW Plt Count Neut % (Auto) Lymph % (Auto) [place] % (Auto) Eos % (Auto) Baso % (Auto) Neut # (Auto) Lymph # (Auto) [place] # (Auto) Eos # (Auto) Baso # (Auto) Sodium Potassium Chloride Carbon Dioxide BUN Creatinine Estimated GFR BUN/Creatinine Ratio Glucose Lactate 1.7 Calcium Total Bilirubin AST ALT Alkaline Phosphatase Troponin I Total Protein Albumin Globulin Albumin/Globulin Ratio Lipase Urine Color Yellow Urine Appearance Sl cloudy Urine pH 5.5 Ur Specific [place] 1.010 Urine Protein Negative Urine Glucose (UA) Negative Urine Ketones Negative Urine Occult Blood Trace-intact Urine Nitrate Negative Urine Bilirubin Negative Urine Urobilinogen 0.2 Ur Leukocyte Esterase Negative Urine RBC 0-1/hpf Urine WBC 5-10/hpf H Ur Squamous Epith Cells 0-1 /hpf Urine Bacteria Many (>30) H Ur Culture Indicated? Specimen cultured SARS-CoV-2 (PCR) Negative Assessment & Plan Assessment & Plan narrative: # acute hematochezia -patient passed some mucus and bright red blood per rectum -likely hemorrhoids the patient will need colonoscopy to confirm -hemoglobin currently normal at 12.7 -general surgery consulted by ED, will see in the morning -keep NPO at midnight in case of scope # lower quadrant abdominal pain, acute -appears to be in the suprapubic area on exam -CT scan of abdomen showed colitis, which General surgery thinks is an over-read -could represent cystitis the patient has pyuria so will start IV ceftriaxone daily -follow-up urine culture # possible colitis, acute -CT abdomen pelvis showed circumferential wall thickening of the splenic flexure, left colon and sigmoid colon -general surgery recommended holding on Zosyn for now -patient without diarrhea, cytosis and mild low-grade temperature of 99.7? F # GERD, chronic -continue PPI # hypertension, chronic -continue home losartan # hyperlipidemia, chronic -hold home simvastatin as not on formulary # chronic pain -continue home tramadol Code status is DNR. COVID negative. DVT prophylaxis contraindicated due to hematochezia, use SCDs. Proxy is son Mark Scott. I have reviewed home meds and used all available resources to reconcile the home meds. Time Spent With Patient Critical Care time: I spent a total of [] minutes of critical care time on this patient's care today; this time is exclusive of procedural time.
[2021-10-22] MEDS: LOSARTAN 50 MG TABLET 100 MG PO (17:58)
[2021-10-22] MEDS: cefTRIAXone 1,000 MG in SODIUM CHLORIDE 0.9% 100 ML 200 MG IV (18:02)
[2021-10-22] MEDS: GABAPENTIN 300 MG CAPSULE PO (20:32)
[2021-10-23 05:01] VITALS: BP 145/60; PULSE 86; RESP 18; TEMP 37.3; O2SAT 95
[2021-10-23 06:19] LABS: Add Manual Diff / Slide Review NO; Basophils Absolute Auto 100 /uL (0-100); Basophils Percent Auto 0.7 % (0-2); Eosinophils Absolute Auto 200 /uL (0-450); Eosinophils Percent Auto 1.5 % (2-4); Hematocrit 33.1 % (36-46); Hemoglobin 11.1 g/dL (12.0-16.0); Lymphocytes Absolute Auto 1500 /uL (1100-4500); Lymphocytes Percent Auto 14.2 % (25-40); Mean Corpuscular HGB Conc 33.4 % (30-36); Mean Corpuscular Hemoglobin 28.9 PG (26-34); Mean Corpuscular Volume 86.6 fL (80-100); Monocytes Absolute Auto 800 /uL (0-900); Monocytes Percent Auto 7.3 % (3-14); Neutrophils Absolute Auto 8000 /uL (1500-7000); Neutrophils Percent Auto 76.3 % (50-75); Platelet Count 208 X10^3/uL (150-400); Red Blood Cell Count 3.83 X10^6/uL (4.0-5.2); Red Cell Distribution Width 14.4 % (11.6-14.8); White Blood Cell Count 10.4 X10^3/uL (4.5-11.0)
[2021-10-23 06:24] LABS: BUN Creatinine Ratio 23.7 (6-22); Blood Urea Nitrogen 14 mg/dL (7-17); Calcium 8.2 mg/dL (8.4-10.2); Carbon Dioxide 28 mmol/L (22-32); Chloride 100 mmol/L (98-107); Estimated Glomerular Filt Rate > 60 mL/min (>60); Glucose 109 mg/dL (80-110); HEMOLYSIS < 15 (0-50); Potassium 3.4 mmol/L (3.4-5.1); Sodium 133 mmol/L (137-145)
--- NOTE | 2021-10-23 07:37 | CM.DPNOTE ---
Late Entry from last night 10/22/21 at 1615: Per ED SAMPLE SEWER, pt likely getting admitted and is the primary CG for her spouse with dementia and no local family but has neighbor and hinduism support and two sons who live in [place] and [place] and have left msgs for them but no return call yet. Spouse is currently bedside. Per RN, pt requesting assist with calling her Pastor Bradley for support with spouse. SW called [facility] [employer] and left msg for Senior Manager Creative Servicesjosh Bradley. ROGELIO then called on-call Home Care Administrator Moises Zhou who confirms he knows pt's Senior Manager Creative Services from the community and has his cell phone and very kindly offered to attempt to contact Senior Manager Creative Services Kirk and help attempt to coordinate safe plan for spouse to go home tonight if reasonable and Moises very generously offered to arrive bedside within the hour to help support pt and spouse and even provide transport if needed and safe plan set up with hinduism and neighbors. ROGELIO met bedside briefly with pt, spouse who is pleasantly confused, and MD and discussed above and SW updated documentation manager towards attempts at getting spouse safely home while pt being treated overnight. DILLON Price
[2021-10-23] MEDS: ACETAMINOPHEN 325 MG TABLET 650 MG PO (08:13)
[2021-10-23] MEDS: GABAPENTIN 300 MG CAPSULE PO (08:13)
[2021-10-23] MEDS: PANTOPRAZOLE DR 40 MG TABLET PO (08:13)
[2021-10-23] MEDS: LOSARTAN 50 MG TABLET 100 MG PO (08:13)
--- NOTE | 2021-10-23 09:03 | CM.DANOTE ---
DCP Assessment: Payor: Medicare PCP: MD Arvin Pt is an 86 y.o. F who presented to the ER with abdominal pain. Pt stated that she saw some scant amount of blood in her underwear and was not sure if it was from the vagina or rectum. Pt declined N/V. Pt has no significant PMH. Pt was admitted as inpatient for further workup and evaluation. Pt currently NPO DCP met with pt this morning to inquire about discharge needs. DCP introduced herself and role. Pt sitting up in bed. Pt states that she lives with her spouse, Regina, and is his sole care provider. Pt states that they live in a 1 story house and she uses a cane more than her walker. Pt states that she has support through her christian and neighbors. DCP inquired about spouse and pt states that he got home safely last night and she is trying to get in contact with him this morning but has been unable to. DCP inquired about who would drive her home when she is discharged from the hospital. Pt states that she has not figured that out yet, but she is hoping to have someone from her christian or a neighbor come to pick her up. DCP offered her assistance if she is unable to locate or contact anyone to assist her home. Pt thankful for the discussion and will contact her for any further needs. White board updated and instructed to call. DCP to continue to follow. P: Once pt is medically stable, pt to discharge home via friend or christian support. Mercy Salgado RN/MARSHALL Discharge Planning/Care Management CM Discharge Assessment Start: 10/23/21 09:02 Freq: Status: Active Protocol: Document 10/23/21 09:02 JAISON (Rec: 10/23/21 09:03 JAISON [id number]) Discharge Planning Assessment Assigned Seed Sorter Mercy Salgado RN/MARSHALL Advance Directives? No History Provided By Patient Prior Living Arrangements House Household Members spouse Type of transporation used prior to Drives own vehicle admit Independent with ADL's Yes Is patient alert and oriented? Yes Caregiver for Another Yes: Spouse DME Already Rented / Owned FWW / Walker,Cane Discharge Plan Home Referrals Initiated None needed Additional Comment At this time. Whiteboard Updated in Patient Room with Yes name and ext. # of Seed Sorter Comment Instructed to call Review Status In Process Please Provide Date Initial DC 10/23/21 Assessment Was Performed Next Review Type Continued Stay Review
[2021-10-23] MEDS: POTASSIUM CHLORIDE 20 MEQ/15 ML UDC 40 MEQ PO (11:33)
--- NOTE | 2021-10-23 11:42 | PC.NURSE ---
Day shift: Pt attempting to reach her Spouse at home this AM. Spouse was called but did not answer. Asked Pt if she wanted us to contact her Sons and she declined that. Placed on reg diet by Dr Solares this AM.
--- NOTE | 2021-10-23 11:44 | PM.CN ---
History of Present Illness Consult details Date Patient Seen: 10/23/21 Time Patient Seen: 11:44 Chief complaint: loose bloody stool Narrative: Stacey is a an 86-year-old woman who presented to the ER yesterday with sudden onset of lower abdominal pain and 2 episodes of hematochezia. A CT scan showed questionable thickening of the left colon from the splenic flexure to the rectosigmoid junction. Since admission her pain has resolved and she is not had any more bloody bowel movements. She believes she had a colonoscopy about 10 years ago. Meds Home Medications and Allergies Home Medications Medication Instructions Recorded Confirmed Type acetaminophen 500 mg tablet 500 mg PO Q6H PRN Back Pain 06/16/20 10/22/21 History (Tylenol Extra Strength) darifenacin 15 mg tablet,extended 15 mg PO DAILY 06/16/20 10/22/21 History release 24 hr docusate sodium 100 mg capsule 100 mg PO DAILY 06/16/20 10/22/21 History (Dulcolax Stool Softener (docusate)) esomeprazole magnesium 20 mg 20 mg PO DAILY 06/16/20 10/22/21 History capsule,delayed release (Nexium) estradiol 10 mcg vaginal tablet 10 mcg vaginal 2XW 06/16/20 10/22/21 History etodolac 400 mg tablet 400 mg PO BID 06/16/20 10/22/21 History losartan 100 mg tablet 100 mg PO DAILY 06/16/20 10/22/21 History lutein 20 mg capsule 20 mg PO DAILY 06/16/20 10/22/21 History oxybutynin chloride 5 mg tablet 5 mg PO BID-TID PRN unknown 06/16/20 10/22/21 History simvastatin 10 mg tablet 10 mg PO BEDTIME 06/16/20 10/22/21 History tramadol 50 mg tablet 50 mg PO Q8H PRN Back pain 06/16/20 10/22/21 History cyclosporine 0.05 % eye drops in a 1 drp EYE-BOTH ONCE 08/17/21 10/22/21 History dropperette latanoprost 0.005 % eye drops 1 drp EYE-BOTH DAILY 08/17/21 10/22/21 History gabapentin 300 mg capsule 300 mg PO .COMPLEX #90 caps 10/05/21 10/22/21 Rx Allergies Allergy/AdvReac Type Severity Reaction Status Date / Time ciprofloxacin [From Cipro] Allergy Intermediate MOUTH SORES Verified 10/22/21 20:29 codeine [CODEINE] Allergy Unknown Verified 10/22/21 20:29 Exam Vital Signs (past 8 hours): - 10/23/21 05:01 Temperature 99.1 F Pulse Rate 86 Respiratory Rate 18 Blood Pressure 145/60 H Pulse Oximetry 95 Oxygen Flow Rate 0 Oxygen Delivery Method Room Air Oxygen Flow Rate 0 Narrative Exam Narrative: Abdomen is soft and nontender No acute distress Objective Labs Result Diagrams: 10/23/21 06:00 10/23/21 06:00 Labs: Laboratory Results - last 24 hr 10/22/21 10/23/21 10/23/21 10: 06:00 06:00 WBC 10.4 RBC 3.83 L Hgb 11.1 L Hct 33.1 L MCV 86.6 MCH 28.9 MCHC 33.4 RDW 14.4 Plt Count 208 Neut % (Auto) 76.3 H Lymph % (Auto) 14.2 L [place] % (Auto) 7.3 Eos % (Auto) 1.5 L Baso % (Auto) 0.7 Neut # (Auto) 8000 H Lymph # (Auto) 1500 [place] # (Auto) 800 Eos # (Auto) 200 Baso # (Auto) 100 Sodium 133 L Potassium 3.4 Chloride 100 Carbon Dioxide 28 BUN 14 Creatinine 0.59 Estimated GFR > 60 BUN/Creatinine Ratio 23.7 H Glucose 109 Calcium 8.2 L Troponin I < 0.012 PFSH Medical History Facet arthropathy, lumbar Gait instability Lumbar radiculopathy Multilevel foraminal stenosis Scoliosis Surgical History H/O bladder repair surgery Family History Father Bleeding acute gastric ulcer Mother Cancer Arthritis Social History household members: spouse Tobacco & Substance Use Smoking Status: Never smoker alcohol intake: current Assessment & Plan Assessment and plan (1) Acute lower gastrointestinal bleeding: Status: Acute Plan Unclear etiology for symptoms and CT findings. Recommend advancement of diet. If she tolerates she can be discharged and we can arrange for an outpatient colonoscopy. Time Spent With Patient Critical Care time: I spent a total of [] minutes of critical care time on this patient's care today; this time is exclusive of procedural time.
[2021-10-23 12:00] VITALS: BP 123/49; PULSE 68; RESP 19; TEMP 35.9; O2SAT 96
[2021-10-23] MEDS: TRAMADOL 50 MG TABLET PO (12:00)
--- NOTE | 2021-10-23 15:01 | P.PN_ITS ---
Subjective Subjective Date Patient Seen: 10/23/21 Interval history: This morning the pt reports she is feeling well, just tired. She denies any further bleeding, although she has not had a BM since being in the hospital. She continues to have mild abdominal cramping, but states it is very mild and hardly worth mentioning. Exam Vital Signs (past 8 hours): Oxygen Delivery Method Room Air Oxygen Flow Rate 0 Narrative Exam Narrative: Gen: NAD, sitting comfortably in bed, appears well CV: RRR, no murmurs Resp: clear to auscultation bilaterally Abd: soft, nontender, nondistended, normoactive bowel sounds Ext: no edema Objective Labs Result Diagrams: 10/23/21 06:00 10/23/21 06:00 Labs: Laboratory Results - last 24 hr 10/23/21 10/23/21 06:00 06:00 WBC 10.4 RBC 3.83 L Hgb 11.1 L Hct 33.1 L MCV 86.6 MCH 28.9 MCHC 33.4 RDW 14.4 Plt Count 208 Neut % (Auto) 76.3 H Lymph % (Auto) 14.2 L [place] % (Auto) 7.3 Eos % (Auto) 1.5 L Baso % (Auto) 0.7 Neut # (Auto) 8000 H Lymph # (Auto) 1500 [place] # (Auto) 800 Eos # (Auto) 200 Baso # (Auto) 100 Sodium 133 L Potassium 3.4 Chloride 100 Carbon Dioxide 28 BUN 14 Creatinine 0.59 Estimated GFR > 60 BUN/Creatinine Ratio 23.7 H Glucose 109 Calcium 8.2 L PFSH Medical History Facet arthropathy, lumbar Gait instability Lumbar radiculopathy Multilevel foraminal stenosis Scoliosis Surgical History H/O bladder repair surgery Family History Father Bleeding acute gastric ulcer Mother Cancer Arthritis Social History household members: spouse Smoking Status: Never smoker alcohol intake: current Assessment & Plan Assessment & Plan narrative: Pt is an 86yo woman with GERD, HTN, and overactive bladder who presented with abdominal pain, dysuria, and bright red blood per rectum. # Acute hematochezia: No ongoing bleeding with stable H/H, although pt without BM in the hospital yet. Potentially due to hemorrhoids - Surgery consulted - Advance diet - Consider outpatient colonoscopy - Monitor for ongoing bleeding # Lower quadrant abdominal pain, acute: Very mild, lower quadrants. CT read as colitis, however general surgery felt was over-read. No other symptoms such as fever, elevated WBC count, diarrhea suggestive of such. Possibly due to likely UTI. - Continue IV Ceftriaxone - F/U urine culture # GERD, chronic - Continue PPI # Hypertension, chronic - Continue home losartan # Hyperlipidemia, chronic - Hold home simvastatin as not on formulary # Chronic pain -continue home tramadol Code status is DNR. DVT prophylaxis contraindicated due to hematochezia, use SCDs. FEN: General diet Dispo: Pending continued advancement of diet without symptom return. Possible d/c later today. Time Spent With Patient Critical Care time: I spent a total of [] minutes of critical care time on this patient's care today; this time is exclusive of procedural time. Quality VTE Deep Vein Thrombosis/Pulmonary Embolism Present on Admission: No
--- NOTE | 2021-10-23 16:41 | PM.DS.1 ---
History of Present Illness History of Present Illness Date Patient Seen: 10/23/21 Chief complaint: loose bloody stool Narrative: Stacey Lawson is a 86-year-old female with past medical history of hypertension, hyperlipidemia, GERD, and overactive bladder who presents with lower quadrant abdominal pain, dysuria and bright red blood per rectum.? Patient states she was in her normal state of health until last night she suddenly vomited before bed.? She denied epigastric abdominal pain last night but developed lower quadrant abdominal pain this morning past some bright red blood with mucus her last bowel movement was yesterday and was normal.? She was quite concerned about passing the blood so she called the paramedics. She has never had this before. She had a colonoscopy several years ago and denies any significant findings. She denies any black stools.? She notes chronic intermittent diarrhea but is unchanged from previous.? She does note some dysuria for the past few days.? She feels weak.? She denies fever, chills, chest pain, shortness a breath, or headache. Discharge Providers Provider Date of admission: 10/22/21 14:49 Discharge Date: 10/23/21 Primary care physician: Jia Sheridan MD Consults: 10/22/21 14:08 Consult to General Surgery Stat Comment: Consulting Provider: Mark Solares Reason for consultation: abd pain Has provider been notified: Yes 10/22/21 15:46 Consult to Dietitian, Adult Routine Comment: Reason For Exam: weight loss Consult to Pastoral Services Routine Comment: Pt request Discharge provider: Iris Zavala MD Summary Hospital Course Discharge Diagnosis: Acute hematochezia Lower quadrant abdominal pain, acute GERD, chronic Hypertension, chronic Hyperlipidemia, chronic Chronic pain Hospital Course: The pt presented with mild lower abdominal pain and hematochezia. CT showed potential colitis, however her symptoms were not entirely consistent. Initial U/A did show evidence of UTI. The pt was treated with Ceftriaxone in the hospital. Culture is thus far negative, but antibiotics will be continued for now until culture final. Her H/H remained stable. Surgery evaluated the pt, and felt she was appropriate for outpatient colonoscopy. The pt attempted a BM while in the hospital, and did have some bright red blood on her tissue. On exam, she had a large external hemorrhoid that appeared to have a small opening that was no longer actively bleeding. She can follow-up with surgery as an outpatient for consideration of banding. Status at Discharge Cognitive/behavioral status at discharge: oriented Functional status at discharge: uses cane/walker Overall status at discharge: patient is back to baseline Exam Vital Signs (past 8 hours): - 10/23/21 12:00 Temperature 96.7 F L Pulse Rate 68 Respiratory Rate 19 Blood Pressure 123/49 L Pulse Oximetry 96 Oxygen Flow Rate 0 Oxygen Delivery Method Room Air Oxygen Flow Rate 0 Narrative Exam Narrative: See progress note from earlier today Objective Labs Result Diagrams: 10/23/21 06:00 10/23/21 06:00 Labs: Laboratory Results - last 24 hr 10/23/21 10/23/21 06:00 06:00 WBC 10.4 RBC 3.83 L Hgb 11.1 L Hct 33.1 L MCV 86.6 MCH 28.9 MCHC 33.4 RDW 14.4 Plt Count 208 Neut % (Auto) 76.3 H Lymph % (Auto) 14.2 L [place] % (Auto) 7.3 Eos % (Auto) 1.5 L Baso % (Auto) 0.7 Neut # (Auto) 8000 H Lymph # (Auto) 1500 [place] # (Auto) 800 Eos # (Auto) 200 Baso # (Auto) 100 Sodium 133 L Potassium 3.4 Chloride 100 Carbon Dioxide 28 BUN 14 Creatinine 0.59 Estimated GFR > 60 BUN/Creatinine Ratio 23.7 H Glucose 109 Calcium 8.2 L PFSH Medical History Facet arthropathy, lumbar Gait instability Lumbar radiculopathy Multilevel foraminal stenosis Scoliosis Surgical History H/O bladder repair surgery Family History Father Bleeding acute gastric ulcer Mother Cancer Arthritis Social History household members: spouse Smoking Status: Never smoker alcohol intake: current Discharge Plan Discharge Plan Patient Disposition: Home Discharge orders & Medications Prescriptions: New cephalexin 500 mg capsule 500 mg PO BID Qty: 6 0RF Continued gabapentin 300 mg capsule 300 mg PO .COMPLEX Qty: 90 2RF Rx Instructions: 1-2 PO Tid to begin at HS and titrate to pain relief oxybutynin chloride 5 mg tablet 5 mg PO BID-TID PRN (Reason: unknown) esomeprazole magnesium [Nexium] 20 mg capsule,delayed release(DR/EC) 20 mg PO DAILY tramadol 50 mg tablet 50 mg PO Q8H PRN (Reason: Back pain) etodolac 400 mg tablet 400 mg PO BID darifenacin 15 mg tablet extended release 24 hr 15 mg PO DAILY losartan 100 mg tablet 100 mg PO DAILY simvastatin 10 mg tablet 10 mg PO BEDTIME lutein 20 mg capsule 20 mg PO DAILY Rx Instructions: give with meal/snack estradiol 10 mcg tablet 10 mcg vaginal 2XW docusate sodium [Dulcolax Stool Softener (dss)] 100 mg capsule 100 mg PO DAILY acetaminophen [Tylenol Extra Strength] 500 mg tablet 500 mg PO Q6H PRN (Reason: Back Pain) latanoprost 0.005 % drops 1 drp EYE-BOTH DAILY Label Comments: INSTILL ONE DROP INTO EACH EYE ONCE DAILY IN THE EVENING cyclosporine 0.05 % dropperette 1 drp EYE-BOTH ONCE Follow up/Referrals: Jia Sheridan MD [Primary Care Provider] - 1 Week Diet/Activity/Treatments Diet: Diet as Tolerated and Regular Visit Report/Discharge Packet Visit Report Forms: Patient Portal/API, Stroke Signs & Symptoms Discharge Data Primary Care Provider: Jia Sheridan Quality VTE Deep Vein Thrombosis/Pulmonary Embolism Present on Admission: No
[2021-10-23] MEDS: cefTRIAXone 1,000 MG in SODIUM CHLORIDE 0.9% 100 ML 200 MG IV (16:42)
--- NOTE | 2021-10-23 17:07 | PC.NURSE ---
Day shift: Paperwork signed and all questions answered. Pt's neighbor is coming to pick her up at approx [address] Zavala the Pt has a large hemorrhoid that is the cause of the blood on toilet paper. Pt states I'm very happy to be going home. Pt only wanted her cookie to eat for dinner. Will write another note when Pt leaves AC unit.
--- NOTE | 2021-10-23 18:38 | PC.NURSE ---
Day shift: Pt left unit at approx 1830. Pt has all personal belongings. Taken to car that her friend Carlyn is driving via WC by this real estate underwriter. Tolerated well.
== END 2021-10-23 18:40 | disposition home or self-care (01) ==
LOC: ED 14:11 → AC 10-23 11:11
PROVIDERS: Student in an Organized Health Care Education/Training Program; Admitting Provider Family Medicine; Emergency Provider Family Medicine Addiction Medicine; Family Provider Family Medicine; PCP Family Medicine; Referring Provider Family Medicine Addiction Medicine; Visit Provider Family Medicine
DX: K92.1 Melena (principal); R25.1 Tremor, unspecified; R10.30 Lower abdominal pain, unspecified; K64.4 Residual hemorrhoidal skin tags; K21.9 Gastro-esophageal reflux disease without esophagitis; I10 Essential (primary) hypertension; E78.5 Hyperlipidemia, unspecified; G89.29 Other chronic pain; Z66 Do not resuscitate; Z20.822 Contact with and (suspected) exposure to COVID-19
CPT/HCPCS: 36415; 71045; 74177; 80048; 80053; 81001; 82272; 83605; 83690; 84484; 85025; 87040; 87086; 87635; 93005; 93010; 96365; 99217; 99225; 99284; C9803; G0378; J0696; Q9967

== ENCOUNTER 2021-12-20 11:15 | Outpatient (RCR) | payer MEDICARE, OTHER, SELFPAY ==
--- NOTE | 2021-05-17 16:00 | PT.OPPOC ---
Physical, Occupational & Speech Therapy At [facility] Current Diagnoses Scoliosis, unspecified (05/17/21) Unsteadiness on feet (05/17/21) History of falling (05/17/21) Visit Care Team Role Provider Type Jia Sheridan MD Family Provider Physician Primary Care Provider Specialty: Family Practice Address: [address] [place] [address], [place], [address] Email: [email or web address] Kunz DO Attending Provider Physician Referring Provider Specialty: Physiatry Pain Management Address: [address] [place] [address], [id number] Email: [email or web address] Plan Of Care PT-OP-T Assessment and Plan Start: 05/17/21 17:35 Freq: Status: Active Protocol: Document 05/17/21 15:25 DCW (Rec: 05/17/21 17:53 DCW [id number]) Physical Therapy Assessment Rehab Potential Rehabilitation Potential Fair Evaluation Complexity Number of Personal Factors/Comorbidities 3 or More Number of Body Systems Impaired 3 Clinical Presentation at Evaluation Unstable Impairments Impairments Activity Tolerance,Balance, Functional Activities, Functional Mobility,Gait,Pain, Posture,Soft Tissue Mobility, Strength Other Concerns Fall Risk Yes, per Yanez (36/56) and TUG (29.93) plus recent fall Goals Three Impairment Pt does not have an appropriate home exercise program Short Term Goal (STG) Pt to be independent and compliant with an appropriate HEP STG Duration 07/15/21 Two Impairment Pt exhibits bilateral weakness in hip abduction Correction Goal (LTG) Pt to increase hip abduction MMT bilaterally to at least 4/ 5 to improve stability and gait LTG Duration 08/14/21 One Impairment Pt displays increased falls risk per Yanez and TUG Correction Goal (LTG) Pt to increase Yanez score by at least 9 points to 45/56 to demonstrate a reduced falls risk. LTG Duration 08/14/21 Assessment Summary Assessment Pt presents with a slight decline in functional mobility since she was last in therapy in January,. TUG score has decreased by more than 2.5 seconds from 27.28 to 29.93, bilateral LE strength largely unchanged, Yanez still indicates increased falls risk . Pt also notes increased pain in her esteves area bilaterally, potentially associated with her worsening severe scoliosis and kyphosis. Increased physical and mental stress from decreasing independence of her due to dementia has also impacted her functional levels. Pt should benefit from skilled therapy focusing on improving LE strength, balance training, and improving activity tolerance. Physical Therapy Plan Frequency and Duration Frequency of Treatment 2x/Week Duration of Treatment Three months Plan of Care Start Date 05/17/21 Plan of Care End Date 08/14/21 Therapeutic Interventions Therapeutic Interventions Aquatic Therapy,Balance Training,Gait Training,Home Exercise Program,Joint Mobilizations,Manual Therapy, Neuromuscular Re-education, Patient/Caregiver Education, Self-Care/Home Management,Soft Tissue Mobilization, Therapeutic Activities, Therapeutic Exercises Modalities Cold Pack/Ice Massage,Electric Stimulation,Hot Packs Next Visit Focus/Plan Next Note Type Treatment Note Next Visit Plan LE strengthening, balance training Plan of Care Dates Plan of Care Start Date 05/17/21 Plan of Care End Date 08/14/21 Electronically Signed by: Wallace Wilson, PT 05/18/21 1758 Please Sign and Return: I have reviewed this Plan of Care and certify that the skilled therapy services above are required to meet the patient?s needs. Physician Signature Date Printed Name and Credentials Clinical Instructor Signature Printed Name and Credentials
--- NOTE | 2021-05-17 16:00 | PT.OIE ---
Current Diagnoses Scoliosis, unspecified (05/17/21) Unsteadiness on feet (05/17/21) History of falling (05/17/21) Past Medical History (Last Reviewed 04/25/21 @ 10:57 by Al Kunz DO) Facet arthropathy, lumbar Gait instability H/O bladder repair surgery Lumbar radiculopathy Multilevel foraminal stenosis Scoliosis Past Surgical History (Last Reviewed 04/25/21 @ 10:57 by Al Kunz DO) H/O bladder repair surgery Visit Care Team Role Provider Type Jia Sherdian MD Family Provider Physician Primary Care Provider Specialty: Family Practice Address: [address] [place] [address], [id number] Email: [email or web address] Al Kunz DO Attending Provider Physician Referring Provider Specialty: Physiatry Pain Management Address: [address] [place] [address], [id number] Email: [email or web address] Physical Therapy Initial Evaluation PT-OP-A Visit Information Start: 05/17/21 17:35 Freq: Status: Active Protocol: Document 05/17/21 15:25 DCW (Rec: 05/17/21 17:37 DCW [id number]) Out-Patient Physical Therapy Visit Information Visit Information Visit Type Initial Evaluation Visit Start Time 15:25 Visit Stop Time 16:00 Total Visit Minutes 35 Visit Number 1 Number of CONFECTIONERY MAKER Visits 0 Evaluation Information Evaluation Date 05/17/21 PT-OP-B Current Condition Start: 05/17/21 17:35 Freq: Status: Active Protocol: Document 05/17/21 15:25 DCW (Rec: 05/18/21 10:48 DCW [id number]) Current Condition History of Current Condition Onset Date Multi-year history Current Complaints Decreased balance, recent fall , esteves pain, back pain History of Current Condition Pt is an 86 year old female well known to this clinic presenting with complaints of declining balance, decreased activity tolerance, and leg/ back pain. Pt has undergone multiple rounds of therapy at this clinic for these same complaints, with varying levels of success. Pt notes that she experiences esteves pain fairly frequently, and her back bothers her if she stands longer than one minute.Admits to a fall a few days ago in her garage because she was rushing around, trying to do things too fast. Reports she landed on her back, which hurt at the time, but is now back to normal. Pt is also spending more energy caring for her recently, who has been struggling more with dementia . Pt was last in therapy three months ago, and feels like she has declined quite a bit since then. Treatment Goals Patient/Caregiver Goals Improve balance, activity tolerance, and decrease pain PT-OP-C Subjective Start: 05/17/21 17:35 Freq: Status: Active Protocol: Document 05/17/21 15:25 DCW (Rec: 05/18/21 10:48 [facility] [id number]) OP-PT Subjective Patient Comments Patient Comments Out of 10? Some days I'm a 2 , some days I'm an 8. Patient Reported Progress Worse Patient Questionnaires ABC- Activity Specific Balance Confidence Scale ABC Score 9.69% ABC Functional Impairment 80 to <100% Impaired (Score 1- 20) Dizziness Handicap Inventory DHI Score 42% DHI Functional Impairment 40 to 59% Impaired (Score 40- 59) PT-OP-D Balance Start: 05/17/21 17:35 Freq: Status: Active Protocol: Document 05/17/21 15:25 DCW (Rec: 05/18/21 10:48 [facility] [id number]) OP-PT Balance Assessment Sitting Balance Static Sitting Balance Ability Good Dynamic Sitting Balance Ability Good Standing Balance Static Standing Balance Ability Fair Dynamic Standing Balance Ability Poor Balance Tests Yanez Balance Test Yanez Balance Test Score 36/56 Yanez Impairment Rating 20 to 39% Impaired (Score 34- 44) Yanez Balance Assessment Evaluation Sitting to Standing Ability Independent w/Hands Unsupported Stance 30 seconds Sitting Unsupported, Feet on Floor Safely- 2 minutes Standing to Sitting Ability Safely, Minimal Hand Use Transfer Ability Safely, Hand Use Unsupported Stance- Eyes Closed Supervision, 10 seconds Unsupported Stance- Eyes Open Supervision to maintain Reaching Forward Standing Safely, 2 inches Pick- Up Object From Floor Supervision Look Behind Shoulder - Standing Turns Sideways Only Turning 360 Degrees Turns slowly, but safely Unsupported Stance, Alternating Feet on 4 Steps w/Supervision Stair Unsupported Tandem Stance Small Step- 30 seconds Unilateral Leg Stance Lifts Leg/Unable to Hold Total Score Yanez Total Score (out of 56 points) 36 Yanez Impairment Rating 20 to 39% Impaired (Score 34- 44) Mensah Fall Scale Copyright Permission PT-OP-E Functional Tests Start: 05/17/21 17:35 Freq: Status: Active Protocol: Document 05/17/21 15:25 DCW (Rec: 05/17/21 17:54 DCW [id number]) Functional Tests Timed Up and Go (TUG) Score 29.93 /c SPC Comments 3-trial average (29.85, 29.22, 30.71) TUG Impairment Rating 100% Impaired (Score 20) PT-OP-J Posture/Palpation/Skin Start: 05/17/21 17:35 Freq: Status: Active Protocol: Document 05/17/21 15:25 DCW (Rec: 05/18/21 10:48 DCW [id number]) Posture Evaluation Position Standing Evaluation View Posterior Head/C-Spine Posture Forward Head T-Spine Posture Fixed Scoliosis on (R), Increased Kyphosis L-Spine Posture Flattened,Fixed Scoliosis on ( L) PT-OP-M Strength Start: 05/17/21 17:35 Freq: Status: Active Protocol: Document 05/17/21 15:25 DCW (Rec: 05/18/21 10:48 DCW [id number]) Hip Strength Hip Manual Muscle Testing Right Flexion (L2) 4- Good- Abduction 3+ Fair+ Adduction 4- Good- Left Flexion (L2) 4- Good- Abduction 3+ Fair+ Adduction 4- Good- Knee Strength Knee Manual Muscle Testing Right Flexion (S2) 4 Good Extension (L3) 4- Good- Left Flexion (S2) 4- Good- Extension (L3) 3+ Fair+ PT-OP-T Assessment and Plan Start: 05/17/21 17:35 Freq: Status: Active Protocol: Document 05/17/21 15:25 DCW (Rec: 05/17/21 17:53 DCW [id number]) Physical Therapy Assessment Rehab Potential Rehabilitation Potential Fair Evaluation Complexity Number of Personal Factors/Comorbidities 3 or More Number of Body Systems Impaired 3 Clinical Presentation at Evaluation Unstable Impairments Impairments Activity Tolerance,Balance, Functional Activities, Functional Mobility,Gait,Pain, Posture,Soft Tissue Mobility, Strength Other Concerns Fall Risk Yes, per Yanez (36/56) and TUG (29.93) plus recent fall Goals Three Impairment Pt does not have an appropriate home exercise program Short Term Goal (STG) Pt to be independent and compliant with an appropriate HEP STG Duration 07/15/21 Two Impairment Pt exhibits bilateral weakness in hip abduction Snf Goal (LTG) Pt to increase hip abduction MMT bilaterally to at least 4/ 5 to improve stability and gait LTG Duration 08/14/21 One Impairment Pt displays increased falls risk per Yanez and TUG Snf Goal (LTG) Pt to increase Yanez score by at least 9 points to 45/56 to demonstrate a reduced falls risk. LTG Duration 08/14/21 Assessment Summary Assessment Pt presents with a slight decline in functional mobility since she was last in therapy in January,. TUG score has decreased by more than 2.5 seconds from 27.28 to 29.93, bilateral LE strength largely unchanged, Yanez still indicates increased falls risk . Pt also notes increased pain in her esteves area bilaterally, potentially associated with her worsening severe scoliosis and kyphosis. Increased physical and mental stress from decreasing independence of her due to dementia has also impacted her functional levels. Pt should benefit from skilled therapy focusing on improving LE strength, balance training, and improving activity tolerance. Physical Therapy Plan Frequency and Duration Frequency of Treatment 2x/Week Duration of Treatment Three months Plan of Care Start Date 05/17/21 Plan of Care End Date 08/14/21 Therapeutic Interventions Therapeutic Interventions Aquatic Therapy,Balance Training,Gait Training,Home Exercise Program,Joint Mobilizations,Manual Therapy, Neuromuscular Re-education, Patient/Caregiver Education, Self-Care/Home Management,Soft Tissue Mobilization, Therapeutic Activities, Therapeutic Exercises Modalities Cold Pack/Ice Massage,Electric Stimulation,Hot Packs Next Visit Focus/Plan Next Note Type Treatment Note Next Visit Plan LE strengthening, balance training
--- NOTE | 2021-05-19 11:58 | PT.OTN ---
Current Diagnoses Scoliosis, unspecified (05/19/21) Unsteadiness on feet (05/19/21) History of falling (05/19/21) Physical Therapy Treatment Note PT-OP-A Visit Information Start: 05/17/21 17:35 Freq: Status: Active Protocol: Document 05/19/21 11:22 DCW (Rec: 05/19/21 11:58 DCW [id number]) Out-Patient Physical Therapy Visit Information Visit Information Visit Type Treatment Note Visit Start Time 11: Visit Stop Time 12:00 Total Visit Minutes 38 Visit Number 2 Number of SEAMER OPERATOR Visits 0 Evaluation Information Evaluation Date 05/17/21 PT-OP-B Current Condition Start: 05/17/21 17:35 Freq: Status: Active Protocol: Document 05/17/21 15:25 DCW (Rec: 05/18/21 10:48 DCW [id number]) Current Condition History of Current Condition Onset Date Multi-year history Current Complaints Decreased balance, recent fall , esteves pain, back pain History of Current Condition Pt is an 86 year old female well known to this clinic presenting with complaints of declining balance, decreased activity tolerance, and leg/ back pain. Pt has undergone multiple rounds of therapy at this clinic for these same complaints, with varying levels of success. Pt notes that she experiences esteves pain fairly frequently, and her back bothers her if she stands longer than one minute.Admits to a fall a few days ago in her garage because she was rushing around, trying to do things too fast. Reports she landed on her back, which hurt at the time, but is now back to normal. Pt is also spending more energy caring for her recently, who has been struggling more with dementia . Pt was last in therapy three months ago, and feels like she has declined quite a bit since then. Treatment Goals Patient/Caregiver Goals Improve balance, activity tolerance, and decrease pain PT-OP-C Subjective Start: 05/17/21 17:35 Freq: Status: Active Protocol: Document 05/19/21 11:22 DCW (Rec: 05/19/21 11:58 DCW [id number]) OP-PT Subjective Patient Comments Patient Comments Pt feeling alright today PT-OP-D Balance Start: 05/17/21 17:35 Freq: Status: Active Protocol: Document 05/17/21 15:25 DCW (Rec: 05/18/21 10:48 DCW [id number]) OP-PT Balance Assessment Sitting Balance Static Sitting Balance Ability Good Dynamic Sitting Balance Ability Good Standing Balance Static Standing Balance Ability Fair Dynamic Standing Balance Ability Poor Balance Tests Yanez Balance Test Yanez Balance Test Score 36/56 Yanez Impairment Rating 20 to 39% Impaired (Score 34- 44) Yanez Balance Assessment Evaluation Sitting to Standing Ability Independent w/Hands Unsupported Stance 30 seconds Sitting Unsupported, Feet on Floor Safely- 2 minutes Standing to Sitting Ability Safely, Minimal Hand Use Transfer Ability Safely, Hand Use Unsupported Stance- Eyes Closed Supervision, 10 seconds Unsupported Stance- Eyes Open Supervision to maintain Reaching Forward Standing Safely, 2 inches Pick- Up Object From Floor Supervision Look Behind Shoulder - Standing Turns Sideways Only Turning 360 Degrees Turns slowly, but safely Unsupported Stance, Alternating Feet on 4 Steps w/Supervision Stair Unsupported Tandem Stance Small Step- 30 seconds Unilateral Leg Stance Lifts Leg/Unable to Hold Total Score Yanez Total Score (out of 56 points) 36 Ynaez Impairment Rating 20 to 39% Impaired (Score 34- 44) Mensah Fall Scale Copyright Permission PT-OP-E Functional Tests Start: 05/17/21 17:35 Freq: Status: Active Protocol: Document 05/17/21 15:25 DCW (Rec: 05/17/21 17:54 DCW [id number]) Functional Tests Timed Up and Go (TUG) Score 29.93 /c SPC Comments 3-trial average (29.85, 29.22, 30.71) TUG Impairment Rating 100% Impaired (Score 20) PT-OP-J Posture/Palpation/Skin Start: 05/17/21 17:35 Freq: Status: Active Protocol: Document 05/17/21 15:25 DCW (Rec: 05/18/21 10:48 IDW [id number]) Posture Evaluation Position Standing Evaluation View Posterior Head/C-Spine Posture Forward Head T-Spine Posture Fixed Scoliosis on (R), Increased Kyphosis L-Spine Posture Flattened,Fixed Scoliosis on ( L) PT-OP-M Strength Start: 05/17/21 17:35 Freq: Status: Active Protocol: Document 05/17/21 15:25 DCW (Rec: 05/18/21 10:48 [facility] [id number]) Hip Strength Hip Manual Muscle Testing Right Flexion (L2) 4- Good- Abduction 3+ Fair+ Adduction 4- Good- Left Flexion (L2) 4- Good- Abduction 3+ Fair+ Adduction 4- Good- Knee Strength Knee Manual Muscle Testing Right Flexion (S2) 4 Good Extension (L3) 4- Good- Left Flexion (S2) 4- Good- Extension (L3) 3+ Fair+ PT-OP-Q Treatments Start: 05/17/21 17:35 Freq: Status: Active Protocol: Document 05/19/21 11:22 DCW (Rec: 05/19/21 11:58 DCW [id number]) Cardio Equipment Recumbent Elliptical (Biodex) Duration (Minutes) 6 Resistance 1 Seat Position 6 Gym Equipment Shuttle Balance Red Details WBOS (EO/EC), Staggered Stance Comments Min A, wt shifting/ stationary Therapeutic Exercises Standing Exercises 1 Standing Exercise Name Heel Raises Neuro Re-Education Treatment Balance Activities Toe-taps Details Cross body toe-taps on cones Equipment 5# Ball pick-up/Toss Details Ball pick-up/toss Hurdles Equipment Hurdles Comments Forward, side-stepping SLS Details SLS Equipment // bars Foam Stance Details EO/EC Surface Pascual PT-OP-T Assessment and Plan Start: 05/17/21 17:35 Freq: Status: Active Protocol: Document 05/19/21 11:22 DCW (Rec: 05/19/21 11:58 DCW [id number]) Physical Therapy Assessment Impairments Impairments Activity Tolerance,Balance, Functional Activities, Functional Mobility,Gait,Pain, Posture,Soft Tissue Mobility, Strength Goals Three Impairment Pt does not have an appropriate home exercise program Short Term Goal (STG) Pt to be independent and compliant with an appropriate HEP STG Duration 07/15/21 Two Impairment Pt exhibits bilateral weakness in hip abduction Alf Goal (LTG) Pt to increase hip abduction MMT bilaterally to at least 4/ 5 to improve stability and gait LTG Duration 08/14/21 One Impairment Pt displays increased falls risk per Yanez and TUG Alf Goal (LTG) Pt to increase Yanez score by at least 9 points to 45/56 to demonstrate a reduced falls risk. LTG Duration 08/14/21 Assessment Summary Assessment Pt showing some good righting reactions with balance challenges, still limited by some LE weakness and decreased activity tolerance. Physical Therapy Plan Frequency and Duration Frequency of Treatment 2x/Week Duration of Treatment Three months Plan of Care Start Date 05/17/21 Plan of Care End Date 08/14/21 Therapeutic Interventions Therapeutic Interventions Aquatic Therapy,Balance Training,Gait Training,Home Exercise Program,Joint Mobilizations,Manual Therapy, Neuromuscular Re-education, Patient/Caregiver Education, Self-Care/Home Management,Soft Tissue Mobilization, Therapeutic Activities, Therapeutic Exercises Modalities Cold Pack/Ice Massage,Electric Stimulation,Hot Packs Next Visit Focus/Plan Next Note Type Treatment Note Next Visit Plan LE strengthening, balance training
--- NOTE | 2021-05-23 16:48 | PT.OTN ---
Current Diagnoses Scoliosis, unspecified (05/23/21) Unsteadiness on feet (05/23/21) History of falling (05/23/21) Physical Therapy Treatment Note PT-OP-A Visit Information Start: 05/17/21 17:35 Freq: Status: Active Protocol: Document 05/23/21 16:00 DCW (Rec: 05/23/21 16:48 DCW [id number]) Out-Patient Physical Therapy Visit Information Visit Information Visit Type Treatment Note Visit Start Time 16:00 Visit Stop Time 16:45 Total Visit Minutes 45 Visit Number 3 Number of STATIONARY ENGINEER REFRIGERATION Visits 0 Evaluation Information Evaluation Date 05/17/21 PT-OP-B Current Condition Start: 05/17/21 17:35 Freq: Status: Active Protocol: Document 05/17/21 15:25 DCW (Rec: 05/18/21 10:48 DCW [id number]) Current Condition History of Current Condition Onset Date Multi-year history Current Complaints Decreased balance, recent fall , esteves pain, back pain History of Current Condition Pt is an 86 year old female well known to this clinic presenting with complaints of declining balance, decreased activity tolerance, and leg/ back pain. Pt has undergone multiple rounds of therapy at this clinic for these same complaints, with varying levels of success. Pt notes that she experiences esteves pain fairly frequently, and her back bothers her if she stands longer than one minute.Admits to a fall a few days ago in her garage because she was rushing around, trying to do things too fast. Reports she landed on her back, which hurt at the time, but is now back to normal. Pt is also spending more energy caring for her recently, who has been struggling more with dementia . Pt was last in therapy three months ago, and feels like she has declined quite a bit since then. Treatment Goals Patient/Caregiver Goals Improve balance, activity tolerance, and decrease pain PT-OP-C Subjective Start: 05/17/21 17:35 Freq: Status: Active Protocol: Document 05/23/21 16:00 DCW (Rec: 05/23/21 16:48 DCW [id number]) OP-PT Subjective Patient Comments Patient Comments I'm tired today, but other than that I'm alright. PT-OP-D Balance Start: 05/17/21 17:35 Freq: Status: Active Protocol: Document 05/17/21 15:25 DCW (Rec: 05/18/21 10:48 DCW [id number]) OP-PT Balance Assessment Sitting Balance Static Sitting Balance Ability Good Dynamic Sitting Balance Ability Good Standing Balance Static Standing Balance Ability Fair Dynamic Standing Balance Ability Poor Balance Tests Yanez Balance Test Yanez Balance Test Score 36/56 Yanez Impairment Rating 20 to 39% Impaired (Score 34- 44) Yanez Balance Assessment Evaluation Sitting to Standing Ability Independent w/Hands Unsupported Stance 30 seconds Sitting Unsupported, Feet on Floor Safely- 2 minutes Standing to Sitting Ability Safely, Minimal Hand Use Transfer Ability Safely, Hand Use Unsupported Stance- Eyes Closed Supervision, 10 seconds Unsupported Stance- Eyes Open Supervision to maintain Reaching Forward Standing Safely, 2 inches Pick- Up Object From Floor Supervision Look Behind Shoulder - Standing Turns Sideways Only Turning 360 Degrees Turns slowly, but safely Unsupported Stance, Alternating Feet on 4 Steps w/Supervision Stair Unsupported Tandem Stance Small Step- 30 seconds Unilateral Leg Stance Lifts Leg/Unable to Hold Total Score Yanez Total Score (out of 56 points) 36 Yanez Impairment Rating 20 to 39% Impaired (Score 34- 44) Mensah Fall Scale Copyright Permission PT-OP-E Functional Tests Start: 05/17/21 17:35 Freq: Status: Active Protocol: Document 05/17/21 15:25 DCW (Rec: 05/17/21 17:54 DCW [id number]) Functional Tests Timed Up and Go (TUG) Score 29.93 /c SPC Comments 3-trial average (29.85, 29.22, 30.71) TUG Impairment Rating 100% Impaired (Score 20) PT-OP-J Posture/Palpation/Skin Start: 05/17/21 17:35 Freq: Status: Active Protocol: Document 05/17/21 15:25 DCW (Rec: 05/18/21 10:48 SCW [id number]) Posture Evaluation Position Standing Evaluation View Posterior Head/C-Spine Posture Forward Head T-Spine Posture Fixed Scoliosis on (R), Increased Kyphosis L-Spine Posture Flattened,Fixed Scoliosis on ( L) PT-OP-M Strength Start: 05/17/21 17:35 Freq: Status: Active Protocol: Document 05/17/21 15:25 DCW (Rec: 05/18/21 10:48 DCW [id number]) Hip Strength Hip Manual Muscle Testing Right Flexion (L2) 4- Good- Abduction 3+ Fair+ Adduction 4- Good- Left Flexion (L2) 4- Good- Abduction 3+ Fair+ Adduction 4- Good- Knee Strength Knee Manual Muscle Testing Right Flexion (S2) 4 Good Extension (L3) 4- Good- Left Flexion (S2) 4- Good- Extension (L3) 3+ Fair+ PT-OP-Q Treatments Start: 05/17/21 17:35 Freq: Status: Active Protocol: Document 05/23/21 16:00 DCW (Rec: 05/23/21 16:48 [facility] [id number]) Cardio Equipment Recumbent Elliptical (Biodex) Duration (Minutes) 5 Resistance 4 Seat Position 8 Gym Equipment Shuttle Balance Red Details WBOS (EO/EC), Staggered Stance Comments Min A, wt shifting/ stationary Neuro Re-Education Treatment Balance Activities NBOS Details NBOS Limits of stability, cone movements Toe-taps Details Cross body toe-taps on cones Equipment 4# Ball pick-up/Toss Details Ball pick-up/toss Hurdles Details Hurdles Equipment 4# Comments Forward, side-stepping PT-OP-T Assessment and Plan Start: 05/17/21 17:35 Freq: Status: Active Protocol: Document 05/23/21 16:00 DCW (Rec: 05/23/21 16:48 DCW [id number]) Physical Therapy Assessment Impairments Impairments Activity Tolerance,Balance, Functional Activities, Functional Mobility,Gait,Pain, Posture,Soft Tissue Mobility, Strength Goals Three Impairment Pt does not have an appropriate home exercise program Short Term Goal (STG) Pt to be independent and compliant with an appropriate HEP STG Duration 07/15/21 Two Impairment Pt exhibits bilateral weakness in hip abduction Room Service Associate Goal (LTG) Pt to increase hip abduction MMT bilaterally to at least 4/ 5 to improve stability and gait LTG Duration 08/14/21 One Impairment Pt displays increased falls risk per Yanez and TUG Room Service Associate Goal (LTG) Pt to increase Yanez score by at least 9 points to 45/56 to demonstrate a reduced falls risk. LTG Duration 08/14/21 Assessment Summary Assessment Pt worked pretty hard today on the stepper, became out of breath, but did well with balance challenges. Physical Therapy Plan Frequency and Duration Frequency of Treatment 2x/Week Duration of Treatment Three months Plan of Care Start Date 05/17/21 Plan of Care End Date 08/14/21 Therapeutic Interventions Therapeutic Interventions Aquatic Therapy,Balance Training,Gait Training,Home Exercise Program,Joint Mobilizations,Manual Therapy, Neuromuscular Re-education, Patient/Caregiver Education, Self-Care/Home Management,Soft Tissue Mobilization, Therapeutic Activities, Therapeutic Exercises Modalities Cold Pack/Ice Massage,Electric Stimulation,Hot Packs Next Visit Focus/Plan Next Note Type Treatment Note Next Visit Plan LE strengthening, balance training
--- NOTE | 2021-05-26 16:46 | PT.OTN ---
Current Diagnoses Scoliosis, unspecified (05/26/21) Unsteadiness on feet (05/26/21) History of falling (05/26/21) Physical Therapy Treatment Note PT-OP-A Visit Information Start: 05/17/21 17:35 Freq: Status: Active Protocol: Document 05/26/21 16:00 DCW (Rec: 05/26/21 16:45 DCW [id number]) Out-Patient Physical Therapy Visit Information Visit Information Visit Type Treatment Note Visit Start Time 16:00 Visit Stop Time 16:45 Total Visit Minutes 45 Visit Number 4 Number of IOS SOFTWARE ENGINEER Visits 0 Evaluation Information Evaluation Date 05/17/21 PT-OP-B Current Condition Start: 05/17/21 17:35 Freq: Status: Active Protocol: Document 05/17/21 15:25 DCW (Rec: 05/18/21 10:48 DCW [id number]) Current Condition History of Current Condition Onset Date Multi-year history Current Complaints Decreased balance, recent fall , esteves pain, back pain History of Current Condition Pt is an 86 year old female well known to this clinic presenting with complaints of declining balance, decreased activity tolerance, and leg/ back pain. Pt has undergone multiple rounds of therapy at this clinic for these same complaints, with varying levels of success. Pt notes that she experiences esteves pain fairly frequently, and her back bothers her if she stands longer than one minute.Admits to a fall a few days ago in her garage because she was rushing around, trying to do things too fast. Reports she landed on her back, which hurt at the time, but is now back to normal. Pt is also spending more energy caring for her recently, who has been struggling more with dementia . Pt was last in therapy three months ago, and feels like she has declined quite a bit since then. Treatment Goals Patient/Caregiver Goals Improve balance, activity tolerance, and decrease pain PT-OP-C Subjective Start: 05/17/21 17:35 Freq: Status: Active Protocol: Document 05/26/21 16:00 DCW (Rec: 05/26/21 16:45 DCW [id number]) OP-PT Subjective Patient Comments Patient Comments Pt is pretty good, I think. PT-OP-D Balance Start: 05/17/21 17:35 Freq: Status: Active Protocol: Document 05/17/21 15:25 DCW (Rec: 05/18/21 10:48 DCW [id number]) OP-PT Balance Assessment Sitting Balance Static Sitting Balance Ability Good Dynamic Sitting Balance Ability Good Standing Balance Static Standing Balance Ability Fair Dynamic Standing Balance Ability Poor Balance Tests Yanez Balance Test Yanez Balance Test Score 36/56 Yanez Impairment Rating 20 to 39% Impaired (Score 34- 44) Yanez Balance Assessment Evaluation Sitting to Standing Ability Independent w/Hands Unsupported Stance 30 seconds Sitting Unsupported, Feet on Floor Safely- 2 minutes Standing to Sitting Ability Safely, Minimal Hand Use Transfer Ability Safely, Hand Use Unsupported Stance- Eyes Closed Supervision, 10 seconds Unsupported Stance- Eyes Open Supervision to maintain Reaching Forward Standing Safely, 2 inches Pick- Up Object From Floor Supervision Look Behind Shoulder - Standing Turns Sideways Only Turning 360 Degrees Turns slowly, but safely Unsupported Stance, Alternating Feet on 4 Steps w/Supervision Stair Unsupported Tandem Stance Small Step- 30 seconds Unilateral Leg Stance Lifts Leg/Unable to Hold Total Score Yanez Total Score (out of 56 points) 36 Yanez Impairment Rating 20 to 39% Impaired (Score 34- 44) Mensah Fall Scale Copyright Permission PT-OP-E Functional Tests Start: 05/17/21 17:35 Freq: Status: Active Protocol: Document 05/17/21 15:25 DCW (Rec: 05/17/21 17:54 DCW [id number]) Functional Tests Timed Up and Go (TUG) Score 29.93 /c SPC Comments 3-trial average (29.85, 29.22, 30.71) TUG Impairment Rating 100% Impaired (Score 20) PT-OP-J Posture/Palpation/Skin Start: 05/17/21 17:35 Freq: Status: Active Protocol: Document 05/17/21 15:25 DCW (Rec: 05/18/21 10:48 WIW [id number]) Posture Evaluation Position Standing Evaluation View Posterior Head/C-Spine Posture Forward Head T-Spine Posture Fixed Scoliosis on (R), Increased Kyphosis L-Spine Posture Flattened,Fixed Scoliosis on ( L) PT-OP-M Strength Start: 05/17/21 17:35 Freq: Status: Active Protocol: Document 05/17/21 15:25 DCW (Rec: 05/18/21 10:48 [facility] [id number]) Hip Strength Hip Manual Muscle Testing Right Flexion (L2) 4- Good- Abduction 3+ Fair+ Adduction 4- Good- Left Flexion (L2) 4- Good- Abduction 3+ Fair+ Adduction 4- Good- Knee Strength Knee Manual Muscle Testing Right Flexion (S2) 4 Good Extension (L3) 4- Good- Left Flexion (S2) 4- Good- Extension (L3) 3+ Fair+ PT-OP-Q Treatments Start: 05/17/21 17:35 Freq: Status: Active Protocol: Document 05/26/21 16:00 DCW (Rec: 05/26/21 16:45 DCW [id number]) Cardio Equipment Recumbent Elliptical (Biodex) Duration (Minutes) 5 Resistance 4 Seat Position 8 Gym Equipment Shuttle Balance Red Details WBOS (EO/EC), Staggered Stance Comments Min A, wt shifting/ stationary Neuro Re-Education Treatment Balance Activities NBOS Details NBOS Limits of stability, cone movements Toe-taps Details Cross body toe-taps on cones Equipment 4# Ball pick-up/Toss Details Ball pick-up/toss Hurdles Details Hurdles Equipment 4# Comments Forward, side-stepping PT-OP-T Assessment and Plan Start: 05/17/21 17:35 Freq: Status: Active Protocol: Document 05/26/21 16:00 DCW (Rec: 05/26/21 16:45 DCW [id number]) Physical Therapy Assessment Impairments Impairments Activity Tolerance,Balance, Functional Activities, Functional Mobility,Gait,Pain, Posture,Soft Tissue Mobility, Strength Goals Three Impairment Pt does not have an appropriate home exercise program Short Term Goal (STG) Pt to be independent and compliant with an appropriate HEP STG Duration 07/15/21 Two Impairment Pt exhibits bilateral weakness in hip abduction Mcc Goal (LTG) Pt to increase hip abduction MMT bilaterally to at least 4/ 5 to improve stability and gait LTG Duration 08/14/21 One Impairment Pt displays increased falls risk per Yanez and TUG Hostage Negotiator Goal (LTG) Pt to increase Yanez score by at least 9 points to 45/56 to demonstrate a reduced falls risk. LTG Duration 08/14/21 Assessment Summary Assessment Pt tolerated stepper better today, less SOB. Showing improvement with stability with weight shifting and on shuttle balance. Physical Therapy Plan Frequency and Duration Frequency of Treatment 2x/Week Duration of Treatment Three months Plan of Care Start Date 05/17/21 Plan of Care End Date 08/14/21 Therapeutic Interventions Therapeutic Interventions Aquatic Therapy,Balance Training,Gait Training,Home Exercise Program,Joint Mobilizations,Manual Therapy, Neuromuscular Re-education, Patient/Caregiver Education, Self-Care/Home Management,Soft Tissue Mobilization, Therapeutic Activities, Therapeutic Exercises Modalities Cold Pack/Ice Massage,Electric Stimulation,Hot Packs Next Visit Focus/Plan Next Note Type Treatment Note Next Visit Plan LE strengthening, balance training
--- NOTE | 2021-05-31 16:01 | PT.OTN ---
Current Diagnoses Scoliosis, unspecified (05/31/21) Unsteadiness on feet (05/31/21) History of falling (05/31/21) Physical Therapy Treatment Note PT-OP-A Visit Information Start: 05/17/21 17:35 Freq: Status: Active Protocol: Document 05/31/21 15:15 DCW (Rec: 05/31/21 16:01 DCW [id number]) Out-Patient Physical Therapy Visit Information Visit Information Visit Type Treatment Note Visit Start Time 15:15 Visit Stop Time 16:00 Total Visit Minutes 45 Visit Number 5 Number of HOTEL SUPPLIES SALESPERSON Visits 0 Evaluation Information Evaluation Date 05/17/21 PT-OP-B Current Condition Start: 05/17/21 17:35 Freq: Status: Active Protocol: Document 05/17/21 15:25 DCW (Rec: 05/18/21 10:48 DCW [id number]) Current Condition History of Current Condition Onset Date Multi-year history Current Complaints Decreased balance, recent fall , esteves pain, back pain History of Current Condition Pt is an 86 year old female well known to this clinic presenting with complaints of declining balance, decreased activity tolerance, and leg/ back pain. Pt has undergone multiple rounds of therapy at this clinic for these same complaints, with varying levels of success. Pt notes that she experiences esteves pain fairly frequently, and her back bothers her if she stands longer than one minute.Admits to a fall a few days ago in her garage because she was rushing around, trying to do things too fast. Reports she landed on her back, which hurt at the time, but is now back to normal. Pt is also spending more energy caring for her recently, who has been struggling more with dementia . Pt was last in therapy three months ago, and feels like she has declined quite a bit since then. Treatment Goals Patient/Caregiver Goals Improve balance, activity tolerance, and decrease pain PT-OP-C Subjective Start: 05/17/21 17:35 Freq: Status: Active Protocol: Document 05/31/21 15:15 DCW (Rec: 05/31/21 16:01 DCW [id number]) OP-PT Subjective Patient Comments Patient Comments It's just been one of those days... PT-OP-D Balance Start: 05/17/21 17:35 Freq: Status: Active Protocol: Document 05/17/21 15:25 DCW (Rec: 05/18/21 10:48 DCW [id number]) OP-PT Balance Assessment Sitting Balance Static Sitting Balance Ability Good Dynamic Sitting Balance Ability Good Standing Balance Static Standing Balance Ability Fair Dynamic Standing Balance Ability Poor Balance Tests Yanez Balance Test Yanez Balance Test Score 36/56 Yanez Impairment Rating 20 to 39% Impaired (Score 34- 44) Yanez Balance Assessment Evaluation Sitting to Standing Ability Independent w/Hands Unsupported Stance 30 seconds Sitting Unsupported, Feet on Floor Safely- 2 minutes Standing to Sitting Ability Safely, Minimal Hand Use Transfer Ability Safely, Hand Use Unsupported Stance- Eyes Closed Supervision, 10 seconds Unsupported Stance- Eyes Open Supervision to maintain Reaching Forward Standing Safely, 2 inches Pick- Up Object From Floor Supervision Look Behind Shoulder - Standing Turns Sideways Only Turning 360 Degrees Turns slowly, but safely Unsupported Stance, Alternating Feet on 4 Steps w/Supervision Stair Unsupported Tandem Stance Small Step- 30 seconds Unilateral Leg Stance Lifts Leg/Unable to Hold Total Score Yanez Total Score (out of 56 points) 36 Yanez Impairment Rating 20 to 39% Impaired (Score 34- 44) Mensah Fall Scale Copyright Permission PT-OP-E Functional Tests Start: 05/17/21 17:35 Freq: Status: Active Protocol: Document 05/17/21 15:25 DCW (Rec: 05/17/21 17:54 DCW [id number]) Functional Tests Timed Up and Go (TUG) Score 29.93 /c SPC Comments 3-trial average (29.85, 29.22, 30.71) TUG Impairment Rating 100% Impaired (Score 20) PT-OP-J Posture/Palpation/Skin Start: 05/17/21 17:35 Freq: Status: Active Protocol: Document 05/17/21 15:25 DCW (Rec: 05/18/21 10:48 NEW [id number]) Posture Evaluation Position Standing Evaluation View Posterior Head/C-Spine Posture Forward Head T-Spine Posture Fixed Scoliosis on (R), Increased Kyphosis L-Spine Posture Flattened,Fixed Scoliosis on ( L) PT-OP-M Strength Start: 05/17/21 17:35 Freq: Status: Active Protocol: Document 05/17/21 15:25 DCW (Rec: 05/18/21 10:48 NEW [id number]) Hip Strength Hip Manual Muscle Testing Right Flexion (L2) 4- Good- Abduction 3+ Fair+ Adduction 4- Good- Left Flexion (L2) 4- Good- Abduction 3+ Fair+ Adduction 4- Good- Knee Strength Knee Manual Muscle Testing Right Flexion (S2) 4 Good Extension (L3) 4- Good- Left Flexion (S2) 4- Good- Extension (L3) 3+ Fair+ PT-OP-Q Treatments Start: 05/17/21 17:35 Freq: Status: Active Protocol: Document 05/31/21 15:15 DCW (Rec: 05/31/21 16:01 [facility] [id number]) Cardio Equipment Recumbent Elliptical (Biodex) Duration (Minutes) 5 Resistance 4 Seat Position 8 Gym Equipment Shuttle Balance Red Details WBOS (EO/EC), Staggered Stance Comments Min A, wt shifting/ stationary Neuro Re-Education Treatment Balance Activities NBOS Details NBOS Limits of stability, cone movements Toe-taps Details Cross body toe-taps on cones Equipment 4# Ball pick-up/Toss Details Ball pick-up/toss Hurdles Details Hurdles Equipment 4# Comments Forward, side-stepping PT-OP-T Assessment and Plan Start: 05/17/21 17:35 Freq: Status: Active Protocol: Document 05/31/21 15:15 DCW (Rec: 05/31/21 16:01 [facility] [id number]) Physical Therapy Assessment Impairments Impairments Activity Tolerance,Balance, Functional Activities, Functional Mobility,Gait,Pain, Posture,Soft Tissue Mobility, Strength Goals Three Impairment Pt does not have an appropriate home exercise program Short Term Goal (STG) Pt to be independent and compliant with an appropriate HEP STG Duration 07/15/21 Two Impairment Pt exhibits bilateral weakness in hip abduction Longterm Goal (LTG) Pt to increase hip abduction MMT bilaterally to at least 4/ 5 to improve stability and gait LTG Duration 08/14/21 One Impairment Pt displays increased falls risk per Yanez and TUG Longterm Goal (LTG) Pt to increase Yanez score by at least 9 points to 45/56 to demonstrate a reduced falls risk. LTG Duration 08/14/21 Assessment Summary Assessment Pt still struggling more with SOB on stepper and clearance going over the hurdles. Physical Therapy Plan Frequency and Duration Frequency of Treatment 2x/Week Duration of Treatment Three months Plan of Care Start Date 05/17/21 Plan of Care End Date 08/14/21 Therapeutic Interventions Therapeutic Interventions Aquatic Therapy,Balance Training,Gait Training,Home Exercise Program,Joint Mobilizations,Manual Therapy, Neuromuscular Re-education, Patient/Caregiver Education, Self-Care/Home Management,Soft Tissue Mobilization, Therapeutic Activities, Therapeutic Exercises Modalities Cold Pack/Ice Massage,Electric Stimulation,Hot Packs Next Visit Focus/Plan Next Note Type Treatment Note Next Visit Plan LE strengthening, balance training
--- NOTE | 2021-06-02 16:00 | PT.OTN ---
Current Diagnoses Scoliosis, unspecified (06/02/21) Unsteadiness on feet (06/02/21) History of falling (06/02/21) Physical Therapy Treatment Note PT-OP-A Visit Information Start: 05/17/21 17:35 Freq: Status: Active Protocol: Document 06/02/21 15:15 DCW (Rec: 06/02/21 16:00 DCW [id number]) Out-Patient Physical Therapy Visit Information Visit Information Visit Type Treatment Note Visit Start Time 15:15 Visit Stop Time 16:00 Total Visit Minutes 45 Visit Number 6 Number of OAKES MACHINE OPERATOR Visits 0 Evaluation Information Evaluation Date 05/17/21 PT-OP-B Current Condition Start: 05/17/21 17:35 Freq: Status: Active Protocol: Document 05/17/21 15:25 DCW (Rec: 05/18/21 10:48 DCW [id number]) Current Condition History of Current Condition Onset Date Multi-year history Current Complaints Decreased balance, recent fall , esteves pain, back pain History of Current Condition Pt is an 86 year old female well known to this clinic presenting with complaints of declining balance, decreased activity tolerance, and leg/ back pain. Pt has undergone multiple rounds of therapy at this clinic for these same complaints, with varying levels of success. Pt notes that she experiences esteves pain fairly frequently, and her back bothers her if she stands longer than one minute.Admits to a fall a few days ago in her garage because she was rushing around, trying to do things too fast. Reports she landed on her back, which hurt at the time, but is now back to normal. Pt is also spending more energy caring for her recently, who has been struggling more with dementia . Pt was last in therapy three months ago, and feels like she has declined quite a bit since then. Treatment Goals Patient/Caregiver Goals Improve balance, activity tolerance, and decrease pain PT-OP-C Subjective Start: 05/17/21 17:35 Freq: Status: Active Protocol: Document 06/02/21 15:15 DCW (Rec: 06/02/21 16:00 DCW [id number]) OP-PT Subjective Patient Comments Patient Comments Pt feeling a little creaky today. PT-OP-D Balance Start: 05/17/21 17:35 Freq: Status: Active Protocol: Document 05/17/21 15:25 DCW (Rec: 05/18/21 10:48 DCW [id number]) OP-PT Balance Assessment Sitting Balance Static Sitting Balance Ability Good Dynamic Sitting Balance Ability Good Standing Balance Static Standing Balance Ability Fair Dynamic Standing Balance Ability Poor Balance Tests Yanez Balance Test Yanez Balance Test Score 36/56 Yanez Impairment Rating 20 to 39% Impaired (Score 34- 44) Yanez Balance Assessment Evaluation Sitting to Standing Ability Independent w/Hands Unsupported Stance 30 seconds Sitting Unsupported, Feet on Floor Safely- 2 minutes Standing to Sitting Ability Safely, Minimal Hand Use Transfer Ability Safely, Hand Use Unsupported Stance- Eyes Closed Supervision, 10 seconds Unsupported Stance- Eyes Open Supervision to maintain Reaching Forward Standing Safely, 2 inches Pick- Up Object From Floor Supervision Look Behind Shoulder - Standing Turns Sideways Only Turning 360 Degrees Turns slowly, but safely Unsupported Stance, Alternating Feet on 4 Steps w/Supervision Stair Unsupported Tandem Stance Small Step- 30 seconds Unilateral Leg Stance Lifts Leg/Unable to Hold Total Score Yanez Total Score (out of 56 points) 36 Yanez Impairment Rating 20 to 39% Impaired (Score 34- 44) Mensah Fall Scale Copyright Permission PT-OP-E Functional Tests Start: 05/17/21 17:35 Freq: Status: Active Protocol: Document 05/17/21 15:25 DCW (Rec: 05/17/21 17:54 DCW [id number]) Functional Tests Timed Up and Go (TUG) Score 29.93 /c SPC Comments 3-trial average (29.85, 29.22, 30.71) TUG Impairment Rating 100% Impaired (Score 20) PT-OP-J Posture/Palpation/Skin Start: 05/17/21 17:35 Freq: Status: Active Protocol: Document 05/17/21 15:25 DCW (Rec: 05/18/21 10:48 MOW [id number]) Posture Evaluation Position Standing Evaluation View Posterior Head/C-Spine Posture Forward Head T-Spine Posture Fixed Scoliosis on (R), Increased Kyphosis L-Spine Posture Flattened,Fixed Scoliosis on ( L) PT-OP-M Strength Start: 05/17/21 17:35 Freq: Status: Active Protocol: Document 05/17/21 15:25 DCW (Rec: 05/18/21 10:48 [facility] [id number]) Hip Strength Hip Manual Muscle Testing Right Flexion (L2) 4- Good- Abduction 3+ Fair+ Adduction 4- Good- Left Flexion (L2) 4- Good- Abduction 3+ Fair+ Adduction 4- Good- Knee Strength Knee Manual Muscle Testing Right Flexion (S2) 4 Good Extension (L3) 4- Good- Left Flexion (S2) 4- Good- Extension (L3) 3+ Fair+ PT-OP-Q Treatments Start: 05/17/21 17:35 Freq: Status: Active Protocol: Document 06/02/21 15:15 DCW (Rec: 06/02/21 16:00 DCW [id number]) Cardio Equipment Recumbent Elliptical (Biodex) Duration (Minutes) 5 Resistance 4 Seat Position 8 Gym Equipment Shuttle Balance Red Details WBOS (EO/EC), Staggered Stance Comments Min A, wt shifting/ stationary Neuro Re-Education Treatment Balance Activities NBOS Details NBOS Limits of stability, cone movements Toe-taps Details Cross body toe-taps on cones Equipment 4# Ball pick-up/Toss Details Ball pick-up/toss Hurdles Details Hurdles Equipment 4# Comments Forward, side-stepping PT-OP-T Assessment and Plan Start: 05/17/21 17:35 Freq: Status: Active Protocol: Document 06/02/21 15:15 DCW (Rec: 06/02/21 16:00 DCW [id number]) Physical Therapy Assessment Impairments Impairments Activity Tolerance,Balance, Functional Activities, Functional Mobility,Gait,Pain, Posture,Soft Tissue Mobility, Strength Goals Three Impairment Pt does not have an appropriate home exercise program Short Term Goal (STG) Pt to be independent and compliant with an appropriate HEP STG Duration 07/15/21 Two Impairment Pt exhibits bilateral weakness in hip abduction Revenue Stamp Clerk Goal (LTG) Pt to increase hip abduction MMT bilaterally to at least 4/ 5 to improve stability and gait LTG Duration 08/14/21 One Impairment Pt displays increased falls risk per Yanez and TUG Revenue Stamp Clerk Goal (LTG) Pt to increase Yanez score by at least 9 points to 45/56 to demonstrate a reduced falls risk. LTG Duration 08/14/21 Assessment Summary Assessment Pt showed increased stability today with balance challenges. Physical Therapy Plan Frequency and Duration Frequency of Treatment 2x/Week Duration of Treatment Three months Plan of Care Start Date 05/17/21 Plan of Care End Date 08/14/21 Therapeutic Interventions Therapeutic Interventions Aquatic Therapy,Balance Training,Gait Training,Home Exercise Program,Joint Mobilizations,Manual Therapy, Neuromuscular Re-education, Patient/Caregiver Education, Self-Care/Home Management,Soft Tissue Mobilization, Therapeutic Activities, Therapeutic Exercises Modalities Cold Pack/Ice Massage,Electric Stimulation,Hot Packs Next Visit Focus/Plan Next Note Type Treatment Note Next Visit Plan LE strengthening, balance training
--- NOTE | 2021-06-09 15:18 | PT.OTN ---
Current Diagnoses Scoliosis, unspecified (06/09/21) Unsteadiness on feet (06/09/21) History of falling (06/09/21) Physical Therapy Treatment Note PT-OP-A Visit Information Start: 05/17/21 17:35 Freq: Status: Active Protocol: Document 06/09/21 14:30 DCW (Rec: 06/09/21 15:17 DCW [id number]) Out-Patient Physical Therapy Visit Information Visit Information Visit Type Treatment Note Visit Start Time 14:30 Visit Stop Time 15:15 Total Visit Minutes 45 Visit Number 7 Number of BOTTLE PACKER Visits 0 Evaluation Information Evaluation Date 05/17/21 PT-OP-B Current Condition Start: 05/17/21 17:35 Freq: Status: Active Protocol: Document 05/17/21 15:25 DCW (Rec: 05/18/21 10:48 DCW [id number]) Current Condition History of Current Condition Onset Date Multi-year history Current Complaints Decreased balance, recent fall , esteves pain, back pain History of Current Condition Pt is an 86 year old female well known to this clinic presenting with complaints of declining balance, decreased activity tolerance, and leg/ back pain. Pt has undergone multiple rounds of therapy at this clinic for these same complaints, with varying levels of success. Pt notes that she experiences esteves pain fairly frequently, and her back bothers her if she stands longer than one minute.Admits to a fall a few days ago in her garage because she was rushing around, trying to do things too fast. Reports she landed on her back, which hurt at the time, but is now back to normal. Pt is also spending more energy caring for her recently, who has been struggling more with dementia . Pt was last in therapy three months ago, and feels like she has declined quite a bit since then. Treatment Goals Patient/Caregiver Goals Improve balance, activity tolerance, and decrease pain PT-OP-C Subjective Start: 05/17/21 17:35 Freq: Status: Active Protocol: Document 06/09/21 14:30 DCW (Rec: 06/09/21 15:17 DCW [id number]) OP-PT Subjective Patient Comments Patient Comments My backs hurting. It's been a horrible week. I didn't come Sunday because we had gone to get a Hamburger, and the car . PT-OP-D Balance Start: 05/17/21 17:35 Freq: Status: Active Protocol: Document 05/17/21 15:25 DCW (Rec: 05/18/21 10:48 DCW [id number]) OP-PT Balance Assessment Sitting Balance Static Sitting Balance Ability Good Dynamic Sitting Balance Ability Good Standing Balance Static Standing Balance Ability Fair Dynamic Standing Balance Ability Poor Balance Tests Yanez Balance Test Yanez Balance Test Score 36/56 Yanez Impairment Rating 20 to 39% Impaired (Score 34- 44) Yanez Balance Assessment Evaluation Sitting to Standing Ability Independent w/Hands Unsupported Stance 30 seconds Sitting Unsupported, Feet on Floor Safely- 2 minutes Standing to Sitting Ability Safely, Minimal Hand Use Transfer Ability Safely, Hand Use Unsupported Stance- Eyes Closed Supervision, 10 seconds Unsupported Stance- Eyes Open Supervision to maintain Reaching Forward Standing Safely, 2 inches Pick- Up Object From Floor Supervision Look Behind Shoulder - Standing Turns Sideways Only Turning 360 Degrees Turns slowly, but safely Unsupported Stance, Alternating Feet on 4 Steps w/Supervision Stair Unsupported Tandem Stance Small Step- 30 seconds Unilateral Leg Stance Lifts Leg/Unable to Hold Total Score Yanez Total Score (out of 56 points) 36 Yanez Impairment Rating 20 to 39% Impaired (Score 34- 44) Mensah Fall Scale Copyright Permission PT-OP-E Functional Tests Start: 05/17/21 17:35 Freq: Status: Active Protocol: Document 05/17/21 15:25 DCW (Rec: 05/17/21 17:54 DCW [id number]) Functional Tests Timed Up and Go (TUG) Score 29.93 /c SPC Comments 3-trial average (29.85, 29.22, 30.71) TUG Impairment Rating 100% Impaired (Score 20) PT-OP-J Posture/Palpation/Skin Start: 05/17/21 17:35 Freq: Status: Active Protocol: Document 05/17/21 15:25 DCW (Rec: 05/18/21 10:48 DCW [id number]) Posture Evaluation Position Standing Evaluation View Posterior Head/C-Spine Posture Forward Head T-Spine Posture Fixed Scoliosis on (R), Increased Kyphosis L-Spine Posture Flattened,Fixed Scoliosis on ( L) PT-OP-M Strength Start: 05/17/21 17:35 Freq: Status: Active Protocol: Document 05/17/21 15:25 DCW (Rec: 05/18/21 10:48 DCW [id number]) Hip Strength Hip Manual Muscle Testing Right Flexion (L2) 4- Good- Abduction 3+ Fair+ Adduction 4- Good- Left Flexion (L2) 4- Good- Abduction 3+ Fair+ Adduction 4- Good- Knee Strength Knee Manual Muscle Testing Right Flexion (S2) 4 Good Extension (L3) 4- Good- Left Flexion (S2) 4- Good- Extension (L3) 3+ Fair+ PT-OP-Q Treatments Start: 05/17/21 17:35 Freq: Status: Active Protocol: Document 06/09/21 14:30 DCW (Rec: 06/09/21 15:17 DCW [id number]) Cardio Equipment Recumbent Elliptical (Biodex) Duration (Minutes) 5 Resistance 4 Seat Position 8 Gym Equipment Shuttle Balance Red Details WBOS (EO/EC), Staggered Stance Comments Min A, wt shifting/ stationary Neuro Re-Education Treatment Balance Activities NBOS Details NBOS Limits of stability, cone movements Toe-taps Details Cross body toe-taps on cones Equipment 5# Ball pick-up/Toss Details Ball pick-up/toss Hurdles Details Hurdles Equipment 5# Comments Forward, side-stepping PT-OP-T Assessment and Plan Start: 05/17/21 17:35 Freq: Status: Active Protocol: Document 06/09/21 14:30 DCW (Rec: 06/09/21 15:17 DCW [id number]) Physical Therapy Assessment Impairments Impairments Activity Tolerance,Balance, Functional Activities, Functional Mobility,Gait,Pain, Posture,Soft Tissue Mobility, Strength Goals Three Impairment Pt does not have an appropriate home exercise program Short Term Goal (STG) Pt to be independent and compliant with an appropriate HEP STG Duration 07/15/21 Two Impairment Pt exhibits bilateral weakness in hip abduction Validation Engineer Goal (LTG) Pt to increase hip abduction MMT bilaterally to at least 4/ 5 to improve stability and gait LTG Duration 08/14/21 One Impairment Pt displays increased falls risk per Yanez and TUG Validation Engineer Goal (LTG) Pt to increase Yanez score by at least 9 points to 45/56 to demonstrate a reduced falls risk. LTG Duration 08/14/21 Assessment Summary Assessment Pt did well today with balance , did have a little extra difficulty with dorota stepping with added ankle weights. Physical Therapy Plan Frequency and Duration Frequency of Treatment 2x/Week Duration of Treatment Three months Plan of Care Start Date 05/17/21 Plan of Care End Date 08/14/21 Therapeutic Interventions Therapeutic Interventions Aquatic Therapy,Balance Training,Gait Training,Home Exercise Program,Joint Mobilizations,Manual Therapy, Neuromuscular Re-education, Patient/Caregiver Education, Self-Care/Home Management,Soft Tissue Mobilization, Therapeutic Activities, Therapeutic Exercises Modalities Cold Pack/Ice Massage,Electric Stimulation,Hot Packs Next Visit Focus/Plan Next Note Type Treatment Note Next Visit Plan LE strengthening, balance training
--- NOTE | 2021-06-14 15:12 | PT.OTN ---
Current Diagnoses Scoliosis, unspecified (06/14/21) Unsteadiness on feet (06/14/21) History of falling (06/14/21) Physical Therapy Treatment Note PT-OP-A Visit Information Start: 05/17/21 17:35 Freq: Status: Active Protocol: Document 06/14/21 14:30 DCW (Rec: 06/14/21 15:12 DCW [id number]) Out-Patient Physical Therapy Visit Information Visit Information Visit Type Treatment Note Visit Start Time 14:30 Visit Stop Time 15:15 Total Visit Minutes 45 Visit Number 8 Number of GLOBAL CHIEF EXPERIENCE OFFICER Visits 0 Evaluation Information Evaluation Date 05/17/21 PT-OP-B Current Condition Start: 05/17/21 17:35 Freq: Status: Active Protocol: Document 05/17/21 15:25 DCW (Rec: 05/18/21 10:48 DCW [id number]) Current Condition History of Current Condition Onset Date Multi-year history Current Complaints Decreased balance, recent fall , esteves pain, back pain History of Current Condition Pt is an 86 year old female well known to this clinic presenting with complaints of declining balance, decreased activity tolerance, and leg/ back pain. Pt has undergone multiple rounds of therapy at this clinic for these same complaints, with varying levels of success. Pt notes that she experiences esteves pain fairly frequently, and her back bothers her if she stands longer than one minute.Admits to a fall a few days ago in her garage because she was rushing around, trying to do things too fast. Reports she landed on her back, which hurt at the time, but is now back to normal. Pt is also spending more energy caring for her recently, who has been struggling more with dementia . Pt was last in therapy three months ago, and feels like she has declined quite a bit since then. Treatment Goals Patient/Caregiver Goals Improve balance, activity tolerance, and decrease pain PT-OP-C Subjective Start: 05/17/21 17:35 Freq: Status: Active Protocol: Document 06/14/21 14:30 DCW (Rec: 06/14/21 15:12 DCW [id number]) OP-PT Subjective Patient Comments Patient Comments Pt doing a bit better overall, her back is bothering her a bit, but better than it had been. PT-OP-D Balance Start: 05/17/21 17:35 Freq: Status: Active Protocol: Document 05/17/21 15:25 DCW (Rec: 05/18/21 10:48 DCW [id number]) OP-PT Balance Assessment Sitting Balance Static Sitting Balance Ability Good Dynamic Sitting Balance Ability Good Standing Balance Static Standing Balance Ability Fair Dynamic Standing Balance Ability Poor Balance Tests Yanez Balance Test Yanez Balance Test Score 36/56 Yanez Impairment Rating 20 to 39% Impaired (Score 34- 44) Yanez Balance Assessment Evaluation Sitting to Standing Ability Independent w/Hands Unsupported Stance 30 seconds Sitting Unsupported, Feet on Floor Safely- 2 minutes Standing to Sitting Ability Safely, Minimal Hand Use Transfer Ability Safely, Hand Use Unsupported Stance- Eyes Closed Supervision, 10 seconds Unsupported Stance- Eyes Open Supervision to maintain Reaching Forward Standing Safely, 2 inches Pick- Up Object From Floor Supervision Look Behind Shoulder - Standing Turns Sideways Only Turning 360 Degrees Turns slowly, but safely Unsupported Stance, Alternating Feet on 4 Steps w/Supervision Stair Unsupported Tandem Stance Small Step- 30 seconds Unilateral Leg Stance Lifts Leg/Unable to Hold Total Score Yanez Total Score (out of 56 points) 36 Yanez Impairment Rating 20 to 39% Impaired (Score 34- 44) Mensah Fall Scale Copyright Permission PT-OP-E Functional Tests Start: 05/17/21 17:35 Freq: Status: Active Protocol: Document 05/17/21 15:25 DCW (Rec: 05/17/21 17:54 DCW [id number]) Functional Tests Timed Up and Go (TUG) Score 29.93 /c SPC Comments 3-trial average (29.85, 29.22, 30.71) TUG Impairment Rating 100% Impaired (Score 20) PT-OP-J Posture/Palpation/Skin Start: 05/17/21 17:35 Freq: Status: Active Protocol: Document 05/17/21 15:25 DCW (Rec: 05/18/21 10:48 DCW [id number]) Posture Evaluation Position Standing Evaluation View Posterior Head/C-Spine Posture Forward Head T-Spine Posture Fixed Scoliosis on (R), Increased Kyphosis L-Spine Posture Flattened,Fixed Scoliosis on ( L) PT-OP-M Strength Start: 05/17/21 17:35 Freq: Status: Active Protocol: Document 05/17/21 15:25 DCW (Rec: 05/18/21 10:48 DCW [id number]) Hip Strength Hip Manual Muscle Testing Right Flexion (L2) 4- Good- Abduction 3+ Fair+ Adduction 4- Good- Left Flexion (L2) 4- Good- Abduction 3+ Fair+ Adduction 4- Good- Knee Strength Knee Manual Muscle Testing Right Flexion (S2) 4 Good Extension (L3) 4- Good- Left Flexion (S2) 4- Good- Extension (L3) 3+ Fair+ PT-OP-Q Treatments Start: 05/17/21 17:35 Freq: Status: Active Protocol: Document 06/14/21 14:30 DCW (Rec: 06/14/21 15:12 DCW [id number]) Cardio Equipment Recumbent Elliptical (Biodex) Duration (Minutes) 6 Resistance 4 Seat Position 8 Gym Equipment Shuttle Balance Red Details WBOS (EO/EC), Staggered Stance Comments Min A, wt shifting/ stationary Therapeutic Exercises Standing Exercises 2 Standing Exercise Name Toe Taps Side bilateral Resistance 5# 1 Standing Exercise Name Heel Raises Neuro Re-Education Treatment Balance Activities NBOS Details NBOS Limits of stability, cone movements Toe-taps Details Cross body toe-taps on cones Equipment 5# Ball pick-up/Toss Details Ball pick-up/toss PT-OP-T Assessment and Plan Start: 05/17/21 17:35 Freq: Status: Active Protocol: Document 06/14/21 14:30 DCW (Rec: 06/14/21 15:12 DCW [id number]) Physical Therapy Assessment Impairments Impairments Activity Tolerance,Balance, Functional Activities, Functional Mobility,Gait,Pain, Posture,Soft Tissue Mobility, Strength Goals Three Impairment Pt does not have an appropriate home exercise program Short Term Goal (STG) Pt to be independent and compliant with an appropriate HEP STG Duration 07/15/21 Two Impairment Pt exhibits bilateral weakness in hip abduction Clinical Resource Director Goal (LTG) Pt to increase hip abduction MMT bilaterally to at least 4/ 5 to improve stability and gait LTG Duration 08/14/21 One Impairment Pt displays increased falls risk per Yanez and TUG Care Home Goal (LTG) Pt to increase Yanez score by at least 9 points to 45/56 to demonstrate a reduced falls risk. LTG Duration 08/14/21 Assessment Summary Assessment Pt showing some improved balance with weight shifting. Physical Therapy Plan Frequency and Duration Frequency of Treatment 2x/Week Duration of Treatment Three months Plan of Care Start Date 05/17/21 Plan of Care End Date 08/14/21 Therapeutic Interventions Therapeutic Interventions Aquatic Therapy,Balance Training,Gait Training,Home Exercise Program,Joint Mobilizations,Manual Therapy, Neuromuscular Re-education, Patient/Caregiver Education, Self-Care/Home Management,Soft Tissue Mobilization, Therapeutic Activities, Therapeutic Exercises Modalities Cold Pack/Ice Massage,Electric Stimulation,Hot Packs Next Visit Focus/Plan Next Note Type Treatment Note Next Visit Plan LE strengthening, balance training
--- NOTE | 2021-06-16 15:16 | PT.OTN ---
Current Diagnoses Scoliosis, unspecified (06/16/21) Unsteadiness on feet (06/16/21) History of falling (06/16/21) Physical Therapy Treatment Note PT-OP-A Visit Information Start: 05/17/21 17:35 Freq: Status: Active Protocol: Document 06/16/21 14:32 DCW (Rec: 06/16/21 15:16 DCW [id number]) Out-Patient Physical Therapy Visit Information Visit Information Visit Type Treatment Note Visit Start Time 14:32 Visit Stop Time 15:15 Total Visit Minutes 43 Visit Number 9 Number of SENIOR ANDROID SOFTWARE ENGINEER Visits 0 Evaluation Information Evaluation Date 05/17/21 PT-OP-B Current Condition Start: 05/17/21 17:35 Freq: Status: Active Protocol: Document 05/17/21 15:25 DCW (Rec: 05/18/21 10:48 DCW [id number]) Current Condition History of Current Condition Onset Date Multi-year history Current Complaints Decreased balance, recent fall , esteves pain, back pain History of Current Condition Pt is an 86 year old female well known to this clinic presenting with complaints of declining balance, decreased activity tolerance, and leg/ back pain. Pt has undergone multiple rounds of therapy at this clinic for these same complaints, with varying levels of success. Pt notes that she experiences esteves pain fairly frequently, and her back bothers her if she stands longer than one minute.Admits to a fall a few days ago in her garage because she was rushing around, trying to do things too fast. Reports she landed on her back, which hurt at the time, but is now back to normal. Pt is also spending more energy caring for her recently, who has been struggling more with dementia . Pt was last in therapy three months ago, and feels like she has declined quite a bit since then. Treatment Goals Patient/Caregiver Goals Improve balance, activity tolerance, and decrease pain PT-OP-C Subjective Start: 05/17/21 17:35 Freq: Status: Active Protocol: Document 06/16/21 14:32 DCW (Rec: 06/16/21 15:16 DCW [id number]) OP-PT Subjective Patient Comments Patient Comments Pt doing fairly well today, not having as much back pain as what she has been. PT-OP-D Balance Start: 05/17/21 17:35 Freq: Status: Active Protocol: Document 05/17/21 15:25 DCW (Rec: 05/18/21 10:48 DCW [id number]) OP-PT Balance Assessment Sitting Balance Static Sitting Balance Ability Good Dynamic Sitting Balance Ability Good Standing Balance Static Standing Balance Ability Fair Dynamic Standing Balance Ability Poor Balance Tests Yanez Balance Test Yanez Balance Test Score 36/56 Yanez Impairment Rating 20 to 39% Impaired (Score 34- 44) Yanez Balance Assessment Evaluation Sitting to Standing Ability Independent w/Hands Unsupported Stance 30 seconds Sitting Unsupported, Feet on Floor Safely- 2 minutes Standing to Sitting Ability Safely, Minimal Hand Use Transfer Ability Safely, Hand Use Unsupported Stance- Eyes Closed Supervision, 10 seconds Unsupported Stance- Eyes Open Supervision to maintain Reaching Forward Standing Safely, 2 inches Pick- Up Object From Floor Supervision Look Behind Shoulder - Standing Turns Sideways Only Turning 360 Degrees Turns slowly, but safely Unsupported Stance, Alternating Feet on 4 Steps w/Supervision Stair Unsupported Tandem Stance Small Step- 30 seconds Unilateral Leg Stance Lifts Leg/Unable to Hold Total Score Yanez Total Score (out of 56 points) 36 Yanez Impairment Rating 20 to 39% Impaired (Score 34- 44) Mensah Fall Scale Copyright Permission PT-OP-E Functional Tests Start: 05/17/21 17:35 Freq: Status: Active Protocol: Document 05/17/21 15:25 DCW (Rec: 05/17/21 17:54 DCW [id number]) Functional Tests Timed Up and Go (TUG) Score 29.93 /c SPC Comments 3-trial average (29.85, 29.22, 30.71) TUG Impairment Rating 100% Impaired (Score 20) PT-OP-J Posture/Palpation/Skin Start: 05/17/21 17:35 Freq: Status: Active Protocol: Document 05/17/21 15:25 DCW (Rec: 05/18/21 10:48 UTW [id number]) Posture Evaluation Position Standing Evaluation View Posterior Head/C-Spine Posture Forward Head T-Spine Posture Fixed Scoliosis on (R), Increased Kyphosis L-Spine Posture Flattened,Fixed Scoliosis on ( L) PT-OP-M Strength Start: 05/17/21 17:35 Freq: Status: Active Protocol: Document 05/17/21 15:25 DCW (Rec: 05/18/21 10:48 DCW [id number]) Hip Strength Hip Manual Muscle Testing Right Flexion (L2) 4- Good- Abduction 3+ Fair+ Adduction 4- Good- Left Flexion (L2) 4- Good- Abduction 3+ Fair+ Adduction 4- Good- Knee Strength Knee Manual Muscle Testing Right Flexion (S2) 4 Good Extension (L3) 4- Good- Left Flexion (S2) 4- Good- Extension (L3) 3+ Fair+ PT-OP-Q Treatments Start: 05/17/21 17:35 Freq: Status: Active Protocol: Document 06/16/21 14:32 DCW (Rec: 06/16/21 15:16 [facility] [id number]) Cardio Equipment Recumbent Elliptical (Biodex) Duration (Minutes) 5 Resistance 4 Seat Position 8 Gym Equipment Shuttle Balance Red Details WBOS (EO/EC), Staggered Stance Comments Min A, wt shifting/ stationary Neuro Re-Education Treatment Balance Activities NBOS Details NBOS Limits of stability, cone movements Toe-taps Details Cross body toe-taps on cones Equipment 5# Ball pick-up/Toss Details Ball pick-up/toss Hurdles Details Hurdles Equipment 5# Comments Forward, side-stepping PT-OP-T Assessment and Plan Start: 05/17/21 17:35 Freq: Status: Active Protocol: Document 06/16/21 14:32 DCW (Rec: 06/16/21 15:16 DCW [id number]) Physical Therapy Assessment Impairments Impairments Activity Tolerance,Balance, Functional Activities, Functional Mobility,Gait,Pain, Posture,Soft Tissue Mobility, Strength Goals Three Impairment Pt does not have an appropriate home exercise program Short Term Goal (STG) Pt to be independent and compliant with an appropriate HEP STG Duration 07/15/21 Two Impairment Pt exhibits bilateral weakness in hip abduction Data Management Manager Goal (LTG) Pt to increase hip abduction MMT bilaterally to at least 4/ 5 to improve stability and gait LTG Duration 08/14/21 One Impairment Pt displays increased falls risk per Yanez and TUG Care Home Goal (LTG) Pt to increase Yanez score by at least 9 points to 45/56 to demonstrate a reduced falls risk. LTG Duration 08/14/21 Assessment Summary Assessment Pt did fairly well today, did have a self-corrected LOB while stepping over hurdles. Showing some increased confidence during normal gait. Physical Therapy Plan Frequency and Duration Frequency of Treatment 2x/Week Duration of Treatment Three months Plan of Care Start Date 05/17/21 Plan of Care End Date 08/14/21 Therapeutic Interventions Therapeutic Interventions Aquatic Therapy,Balance Training,Gait Training,Home Exercise Program,Joint Mobilizations,Manual Therapy, Neuromuscular Re-education, Patient/Caregiver Education, Self-Care/Home Management,Soft Tissue Mobilization, Therapeutic Activities, Therapeutic Exercises Modalities Cold Pack/Ice Massage,Electric Stimulation,Hot Packs Next Visit Focus/Plan Next Note Type Treatment Note Next Visit Plan LE strengthening, balance training
--- NOTE | 2021-06-23 12:50 | PT.OTN ---
Current Diagnoses Scoliosis, unspecified (06/23/21) Unsteadiness on feet (06/23/21) History of falling (06/23/21) Physical Therapy Treatment Note PT-OP-A Visit Information Start: 05/17/21 17:35 Freq: Status: Active Protocol: Document 06/23/21 12:00 DCW (Rec: 06/23/21 12:50 DCW [id number]) Out-Patient Physical Therapy Visit Information Visit Information Visit Type Treatment Note Visit Start Time 12:00 Visit Stop Time 12:45 Total Visit Minutes 45 Visit Number 10 Number of WEBSITE PROGRAMMER Visits 0 Evaluation Information Evaluation Date 05/17/21 PT-OP-B Current Condition Start: 05/17/21 17:35 Freq: Status: Active Protocol: Document 05/17/21 15:25 DCW (Rec: 05/18/21 10:48 DCW [id number]) Current Condition History of Current Condition Onset Date Multi-year history Current Complaints Decreased balance, recent fall , esteves pain, back pain History of Current Condition Pt is an 86 year old female well known to this clinic presenting with complaints of declining balance, decreased activity tolerance, and leg/ back pain. Pt has undergone multiple rounds of therapy at this clinic for these same complaints, with varying levels of success. Pt notes that she experiences esteves pain fairly frequently, and her back bothers her if she stands longer than one minute.Admits to a fall a few days ago in her garage because she was rushing around, trying to do things too fast. Reports she landed on her back, which hurt at the time, but is now back to normal. Pt is also spending more energy caring for her recently, who has been struggling more with dementia . Pt was last in therapy three months ago, and feels like she has declined quite a bit since then. Treatment Goals Patient/Caregiver Goals Improve balance, activity tolerance, and decrease pain PT-OP-C Subjective Start: 05/17/21 17:35 Freq: Status: Active Protocol: Document 06/23/21 12:00 DCW (Rec: 06/23/21 12:50 DCW [id number]) OP-PT Subjective Patient Comments Patient Comments Pt notes she is just tired, mad, and frustrated. Reports she had to have EMS out to her home once again after her had a fall. PT-OP-D Balance Start: 05/17/21 17:35 Freq: Status: Active Protocol: Document 05/17/21 15:25 DCW (Rec: 05/18/21 10:48 DCW [id number]) OP-PT Balance Assessment Sitting Balance Static Sitting Balance Ability Good Dynamic Sitting Balance Ability Good Standing Balance Static Standing Balance Ability Fair Dynamic Standing Balance Ability Poor Balance Tests Yanez Balance Test Yanez Balance Test Score 36/56 Yanez Impairment Rating 20 to 39% Impaired (Score 34- 44) Yanez Balance Assessment Evaluation Sitting to Standing Ability Independent w/Hands Unsupported Stance 30 seconds Sitting Unsupported, Feet on Floor Safely- 2 minutes Standing to Sitting Ability Safely, Minimal Hand Use Transfer Ability Safely, Hand Use Unsupported Stance- Eyes Closed Supervision, 10 seconds Unsupported Stance- Eyes Open Supervision to maintain Reaching Forward Standing Safely, 2 inches Pick- Up Object From Floor Supervision Look Behind Shoulder - Standing Turns Sideways Only Turning 360 Degrees Turns slowly, but safely Unsupported Stance, Alternating Feet on 4 Steps w/Supervision Stair Unsupported Tandem Stance Small Step- 30 seconds Unilateral Leg Stance Lifts Leg/Unable to Hold Total Score Yanez Total Score (out of 56 points) 36 Yanez Impairment Rating 20 to 39% Impaired (Score 34- 44) Mensah Fall Scale Copyright Permission PT-OP-E Functional Tests Start: 05/17/21 17:35 Freq: Status: Active Protocol: Document 05/17/21 15:25 DCW (Rec: 05/17/21 17:54 DCW [id number]) Functional Tests Timed Up and Go (TUG) Score 29.93 /c SPC Comments 3-trial average (29.85, 29.22, 30.71) TUG Impairment Rating 100% Impaired (Score 20) PT-OP-J Posture/Palpation/Skin Start: 05/17/21 17:35 Freq: Status: Active Protocol: Document 05/17/21 15:25 DCW (Rec: 05/18/21 10:48 NHW [id number]) Posture Evaluation Position Standing Evaluation View Posterior Head/C-Spine Posture Forward Head T-Spine Posture Fixed Scoliosis on (R), Increased Kyphosis L-Spine Posture Flattened,Fixed Scoliosis on ( L) PT-OP-M Strength Start: 05/17/21 17:35 Freq: Status: Active Protocol: Document 05/17/21 15:25 DCW (Rec: 05/18/21 10:48 DCW [id number]) Hip Strength Hip Manual Muscle Testing Right Flexion (L2) 4- Good- Abduction 3+ Fair+ Adduction 4- Good- Left Flexion (L2) 4- Good- Abduction 3+ Fair+ Adduction 4- Good- Knee Strength Knee Manual Muscle Testing Right Flexion (S2) 4 Good Extension (L3) 4- Good- Left Flexion (S2) 4- Good- Extension (L3) 3+ Fair+ PT-OP-Q Treatments Start: 05/17/21 17:35 Freq: Status: Active Protocol: Document 06/23/21 12:00 DCW (Rec: 06/23/21 12:50 DCW [id number]) Cardio Equipment Recumbent Elliptical (Biodex) Duration (Minutes) 5 Resistance 4 Seat Position 8 Gym Equipment Shuttle Balance Red Details WBOS (EO/EC), Staggered Stance Comments Min A, wt shifting/ stationary Neuro Re-Education Treatment Balance Activities NBOS Details NBOS Limits of stability, cone movements Toe-taps Details Cross body toe-taps on cones Equipment 5# Ball pick-up/Toss Details Ball pick-up/toss Hurdles Details Hurdles Equipment 5# Comments Forward, side-stepping SLS Details SLS Equipment // bars PT-OP-T Assessment and Plan Start: 05/17/21 17:35 Freq: Status: Active Protocol: Document 06/23/21 12:00 DCW (Rec: 06/23/21 12:50 DCW [id number]) Physical Therapy Assessment Impairments Impairments Activity Tolerance,Balance, Functional Activities, Functional Mobility,Gait,Pain, Posture,Soft Tissue Mobility, Strength Goals Three Impairment Pt does not have an appropriate home exercise program Short Term Goal (STG) Pt to be independent and compliant with an appropriate HEP STG Duration 07/15/21 Two Impairment Pt exhibits bilateral weakness in hip abduction Production Operator Goal (LTG) Pt to increase hip abduction MMT bilaterally to at least 4/ 5 to improve stability and gait LTG Duration 08/14/21 One Impairment Pt displays increased falls risk per Yanez and TUG [facility] Goal (LTG) Pt to increase Yanez score by at least 9 points to 45/56 to demonstrate a reduced falls risk. 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 Pt still working hard on balance challenges. Physical Therapy Plan Frequency and Duration Frequency of Treatment 2x/Week Duration of Treatment Three months Plan of Care Start Date 05/17/21 Plan of Care End Date 08/14/21 Therapeutic Interventions Therapeutic Interventions Aquatic Therapy,Balance Training,Gait Training,Home Exercise Program,Joint Mobilizations,Manual Therapy, Neuromuscular Re-education, Patient/Caregiver Education, Self-Care/Home Management,Soft Tissue Mobilization, Therapeutic Activities, Therapeutic Exercises Modalities Cold Pack/Ice Massage,Electric Stimulation,Hot Packs Next Visit Focus/Plan Next Note Type Treatment Note Next Visit Plan LE strengthening, balance training
--- NOTE | 2021-07-11 11:58 | PT.OTN ---
Current Diagnoses Scoliosis, unspecified (07/11/21) Unsteadiness on feet (07/11/21) History of falling (07/11/21) Physical Therapy Treatment Note PT-OP-A Visit Information Start: 05/17/21 17:35 Freq: Status: Active Protocol: Document 07/11/21 11:15 DCW (Rec: 07/11/21 11:58 DCW [id number]) Out-Patient Physical Therapy Visit Information Visit Information Visit Type Treatment Note Visit Start Time 11:15 Visit Stop Time 12:00 Total Visit Minutes 45 Visit Number 11 Number of STAFF PSYCHOLOGIST Visits 0 Evaluation Information Evaluation Date 05/17/21 PT-OP-B Current Condition Start: 05/17/21 17:35 Freq: Status: Active Protocol: Document 05/17/21 15:25 DCW (Rec: 05/18/21 10:48 DCW [id number]) Current Condition History of Current Condition Onset Date Multi-year history Current Complaints Decreased balance, recent fall , esteves pain, back pain History of Current Condition Pt is an 86 year old female well known to this clinic presenting with complaints of declining balance, decreased activity tolerance, and leg/ back pain. Pt has undergone multiple rounds of therapy at this clinic for these same complaints, with varying levels of success. Pt notes that she experiences esteves pain fairly frequently, and her back bothers her if she stands longer than one minute.Admits to a fall a few days ago in her garage because she was rushing around, trying to do things too fast. Reports she landed on her back, which hurt at the time, but is now back to normal. Pt is also spending more energy caring for her recently, who has been struggling more with dementia . Pt was last in therapy three months ago, and feels like she has declined quite a bit since then. Treatment Goals Patient/Caregiver Goals Improve balance, activity tolerance, and decrease pain PT-OP-C Subjective Start: 05/17/21 17:35 Freq: Status: Active Protocol: Document 07/11/21 11:15 DCW (Rec: 07/11/21 11:58 DCW [id number]) OP-PT Subjective Patient Comments Patient Comments I was happy to get a call this morning, I've been needing this. PT-OP-D Balance Start: 05/17/21 17:35 Freq: Status: Active Protocol: Document 05/17/21 15:25 DCW (Rec: 05/18/21 10:48 DCW [id number]) OP-PT Balance Assessment Sitting Balance Static Sitting Balance Ability Good Dynamic Sitting Balance Ability Good Standing Balance Static Standing Balance Ability Fair Dynamic Standing Balance Ability Poor Balance Tests Yanez Balance Test Yanez Balance Test Score 36/56 Yanez Impairment Rating 20 to 39% Impaired (Score 34- 44) Yanez Balance Assessment Evaluation Sitting to Standing Ability Independent w/Hands Unsupported Stance 30 seconds Sitting Unsupported, Feet on Floor Safely- 2 minutes Standing to Sitting Ability Safely, Minimal Hand Use Transfer Ability Safely, Hand Use Unsupported Stance- Eyes Closed Supervision, 10 seconds Unsupported Stance- Eyes Open Supervision to maintain Reaching Forward Standing Safely, 2 inches Pick- Up Object From Floor Supervision Look Behind Shoulder - Standing Turns Sideways Only Turning 360 Degrees Turns slowly, but safely Unsupported Stance, Alternating Feet on 4 Steps w/Supervision Stair Unsupported Tandem Stance Small Step- 30 seconds Unilateral Leg Stance Lifts Leg/Unable to Hold Total Score Yanez Total Score (out of 56 points) 36 Yanez Impairment Rating 20 to 39% Impaired (Score 34- 44) Mensah Fall Scale Copyright Permission PT-OP-E Functional Tests Start: 05/17/21 17:35 Freq: Status: Active Protocol: Document 05/17/21 15:25 DCW (Rec: 05/17/21 17:54 DCW [id number]) Functional Tests Timed Up and Go (TUG) Score 29.93 /c SPC Comments 3-trial average (29.85, 29.22, 30.71) TUG Impairment Rating 100% Impaired (Score 20) PT-OP-J Posture/Palpation/Skin Start: 05/17/21 17:35 Freq: Status: Active Protocol: Document 05/17/21 15:25 DCW (Rec: 05/18/21 10:48 DCW [id number]) Posture Evaluation Position Standing Evaluation View Posterior Head/C-Spine Posture Forward Head T-Spine Posture Fixed Scoliosis on (R), Increased Kyphosis L-Spine Posture Flattened,Fixed Scoliosis on ( L) PT-OP-M Strength Start: 05/17/21 17:35 Freq: Status: Active Protocol: Document 05/17/21 15:25 DCW (Rec: 05/18/21 10:48 DCW [id number]) Hip Strength Hip Manual Muscle Testing Right Flexion (L2) 4- Good- Abduction 3+ Fair+ Adduction 4- Good- Left Flexion (L2) 4- Good- Abduction 3+ Fair+ Adduction 4- Good- Knee Strength Knee Manual Muscle Testing Right Flexion (S2) 4 Good Extension (L3) 4- Good- Left Flexion (S2) 4- Good- Extension (L3) 3+ Fair+ PT-OP-Q Treatments Start: 05/17/21 17:35 Freq: Status: Active Protocol: Document 07/11/21 11:15 DCW (Rec: 07/11/21 11:58 AKW [id number]) Cardio Equipment Recumbent Elliptical (Biodex) Duration (Minutes) 5 Resistance 4 Seat Position 8 Gym Equipment Shuttle Balance Red Details WBOS (EO/EC), Staggered Stance Comments Min A, wt shifting/ stationary Neuro Re-Education Treatment Balance Activities NBOS Details NBOS Limits of stability, cone movements Toe-taps Details Cross body toe-taps on cones Equipment 5# Ball pick-up/Toss Details Ball pick-up/toss Hurdles Details Hurdles Equipment 5# Comments Forward, side-stepping PT-OP-T Assessment and Plan Start: 05/17/21 17:35 Freq: Status: Active Protocol: Document 07/11/21 11:15 DCW (Rec: 07/11/21 11:58 DCW [id number]) Physical Therapy Assessment Impairments Impairments Activity Tolerance,Balance, Functional Activities, Functional Mobility,Gait,Pain, Posture,Soft Tissue Mobility, Strength Goals Three Impairment Pt does not have an appropriate home exercise program Short Term Goal (STG) Pt to be independent and compliant with an appropriate HEP STG Duration 07/15/21 Two Impairment Pt exhibits bilateral weakness in hip abduction Cms Expert Goal (LTG) Pt to increase hip abduction MMT bilaterally to at least 4/ 5 to improve stability and gait LTG Duration 08/14/21 One Impairment Pt displays increased falls risk per Yanez and TUG [facility] Goal (LTG) Pt to increase Yanez score by at least 9 points to 45/56 to demonstrate a reduced falls risk. LTG Duration 08/14/21 Assessment Summary Assessment Pt slightly better today, less fatigue, required fewer breaks . Showing improved weight- shifting. Physical Therapy Plan Frequency and Duration Frequency of Treatment 2x/Week Duration of Treatment Three months Plan of Care Start Date 05/17/21 Plan of Care End Date 08/14/21 Therapeutic Interventions Therapeutic Interventions Aquatic Therapy,Balance Training,Gait Training,Home Exercise Program,Joint Mobilizations,Manual Therapy, Neuromuscular Re-education, Patient/Caregiver Education, Self-Care/Home Management,Soft Tissue Mobilization, Therapeutic Activities, Therapeutic Exercises Modalities Cold Pack/Ice Massage,Electric Stimulation,Hot Packs Next Visit Focus/Plan Next Note Type Treatment Note Next Visit Plan LE strengthening, balance training
--- NOTE | 2021-07-19 15:38 | PT-OP ANOTE ---
Pt no-showed to 07/19/21. Phoned pt, she was very apologetic, reported she had written down 4:15, not 3:15. Reminded pt of next appointment date and time.
--- NOTE | 2021-07-22 15:15 | PT.OTN ---
Current Diagnoses Scoliosis, unspecified (07/22/21) Unsteadiness on feet (07/22/21) History of falling (07/22/21) Physical Therapy Treatment Note PT-OP-A Visit Information Start: 05/17/21 17:35 Freq: Status: Active Protocol: Document 07/22/21 14:30 DCW (Rec: 07/22/21 15:15 DCW [id number]) Out-Patient Physical Therapy Visit Information Visit Information Visit Type Treatment Note Visit Start Time 14:30 Visit Stop Time 15:15 Total Visit Minutes 45 Visit Number 12 Number of SUPERVISOR CURING ROOM Visits 0 Evaluation Information Evaluation Date 05/17/21 PT-OP-B Current Condition Start: 05/17/21 17:35 Freq: Status: Active Protocol: Document 05/17/21 15:25 DCW (Rec: 05/18/21 10:48 DCW [id number]) Current Condition History of Current Condition Onset Date Multi-year history Current Complaints Decreased balance, recent fall , esteves pain, back pain History of Current Condition Pt is an 86 year old female well known to this clinic presenting with complaints of declining balance, decreased activity tolerance, and leg/ back pain. Pt has undergone multiple rounds of therapy at this clinic for these same complaints, with varying levels of success. Pt notes that she experiences esteves pain fairly frequently, and her back bothers her if she stands longer than one minute.Admits to a fall a few days ago in her garage because she was rushing around, trying to do things too fast. Reports she landed on her back, which hurt at the time, but is now back to normal. Pt is also spending more energy caring for her recently, who has been struggling more with dementia . Pt was last in therapy three months ago, and feels like she has declined quite a bit since then. Treatment Goals Patient/Caregiver Goals Improve balance, activity tolerance, and decrease pain PT-OP-C Subjective Start: 05/17/21 17:35 Freq: Status: Active Protocol: Document 07/22/21 14:30 DCW (Rec: 07/22/21 15:15 DCW [id number]) OP-PT Subjective Patient Comments Patient Comments Pt feeling like I'm all bend over, but that's probably pecause I am. PT-OP-D Balance Start: 05/17/21 17:35 Freq: Status: Active Protocol: Document 05/17/21 15:25 DCW (Rec: 05/18/21 10:48 DCW [id number]) OP-PT Balance Assessment Sitting Balance Static Sitting Balance Ability Good Dynamic Sitting Balance Ability Good Standing Balance Static Standing Balance Ability Fair Dynamic Standing Balance Ability Poor Balance Tests Yanez Balance Test Yanez Balance Test Score 36/56 Yanez Impairment Rating 20 to 39% Impaired (Score 34- 44) Yanez Balance Assessment Evaluation Sitting to Standing Ability Independent w/Hands Unsupported Stance 30 seconds Sitting Unsupported, Feet on Floor Safely- 2 minutes Standing to Sitting Ability Safely, Minimal Hand Use Transfer Ability Safely, Hand Use Unsupported Stance- Eyes Closed Supervision, 10 seconds Unsupported Stance- Eyes Open Supervision to maintain Reaching Forward Standing Safely, 2 inches Pick- Up Object From Floor Supervision Look Behind Shoulder - Standing Turns Sideways Only Turning 360 Degrees Turns slowly, but safely Unsupported Stance, Alternating Feet on 4 Steps w/Supervision Stair Unsupported Tandem Stance Small Step- 30 seconds Unilateral Leg Stance Lifts Leg/Unable to Hold Total Score Yanez Total Score (out of 56 points) 36 Yanez Impairment Rating 20 to 39% Impaired (Score 34- 44) Mensah Fall Scale Copyright Permission PT-OP-E Functional Tests Start: 05/17/21 17:35 Freq: Status: Active Protocol: Document 05/17/21 15:25 DCW (Rec: 05/17/21 17:54 DCW [id number]) Functional Tests Timed Up and Go (TUG) Score 29.93 /c SPC Comments 3-trial average (29.85, 29.22, 30.71) TUG Impairment Rating 100% Impaired (Score 20) PT-OP-J Posture/Palpation/Skin Start: 05/17/21 17:35 Freq: Status: Active Protocol: Document 05/17/21 15:25 DCW (Rec: 05/18/21 10:48 DCW [id number]) Posture Evaluation Position Standing Evaluation View Posterior Head/C-Spine Posture Forward Head T-Spine Posture Fixed Scoliosis on (R), Increased Kyphosis L-Spine Posture Flattened,Fixed Scoliosis on ( L) PT-OP-M Strength Start: 05/17/21 17:35 Freq: Status: Active Protocol: Document 05/17/21 15:25 DCW (Rec: 05/18/21 10:48 DCW [id number]) Hip Strength Hip Manual Muscle Testing Right Flexion (L2) 4- Good- Abduction 3+ Fair+ Adduction 4- Good- Left Flexion (L2) 4- Good- Abduction 3+ Fair+ Adduction 4- Good- Knee Strength Knee Manual Muscle Testing Right Flexion (S2) 4 Good Extension (L3) 4- Good- Left Flexion (S2) 4- Good- Extension (L3) 3+ Fair+ PT-OP-Q Treatments Start: 05/17/21 17:35 Freq: Status: Active Protocol: Document 07/22/21 14:30 DCW (Rec: 07/22/21 15:15 DCW [id number]) Cardio Equipment Recumbent Elliptical (Biodex) Duration (Minutes) 5 Resistance 4 Seat Position 8 Gym Equipment Shuttle Balance Red Details WBOS (EO/EC), Staggered Stance Comments Min A, wt shifting/ stationary Neuro Re-Education Treatment Balance Activities NBOS Details NBOS Limits of stability, cone movements Toe-taps Details Cross body toe-taps on cones Equipment 5# Ball pick-up/Toss Details Ball pick-up/toss Hurdles Details Hurdles Equipment 5# Comments Forward, side-stepping SLS Details SLS Equipment // bars PT-OP-T Assessment and Plan Start: 05/17/21 17:35 Freq: Status: Active Protocol: Document 07/22/21 14:30 DCW (Rec: 07/22/21 15:15 DCW [id number]) Physical Therapy Assessment Impairments Impairments Activity Tolerance,Balance, Functional Activities, Functional Mobility,Gait,Pain, Posture,Soft Tissue Mobility, Strength Goals Three Impairment Pt does not have an appropriate home exercise program Short Term Goal (STG) Pt to be independent and compliant with an appropriate HEP STG Duration 07/15/21 Two Impairment Pt exhibits bilateral weakness in hip abduction Assisted Goal (LTG) Pt to increase hip abduction MMT bilaterally to at least 4/ 5 to improve stability and gait LTG Duration 08/14/21 One Impairment Pt displays increased falls risk per Yanez and TUG Assisted Goal (LTG) Pt to increase Yanez score by at least 9 points to 45/56 to demonstrate a reduced falls risk. LTG Duration 08/14/21 Assessment Summary Assessment Did well today maintaining balance, no complaints of pain . Still struggles with foot clearance when using hurdles. Physical Therapy Plan Frequency and Duration Frequency of Treatment 2x/Week Duration of Treatment Three months Plan of Care Start Date 05/17/21 Plan of Care End Date 08/14/21 Therapeutic Interventions Therapeutic Interventions Aquatic Therapy,Balance Training,Gait Training,Home Exercise Program,Joint Mobilizations,Manual Therapy, Neuromuscular Re-education, Patient/Caregiver Education, Self-Care/Home Management,Soft Tissue Mobilization, Therapeutic Activities, Therapeutic Exercises Modalities Cold Pack/Ice Massage,Electric Stimulation,Hot Packs Next Visit Focus/Plan Next Note Type Treatment Note Next Visit Plan LE strengthening, balance training
--- NOTE | 2021-07-26 15:59 | PT.OTN ---
Current Diagnoses Scoliosis, unspecified (07/26/21) Unsteadiness on feet (07/26/21) History of falling (07/26/21) Physical Therapy Treatment Note PT-OP-A Visit Information Start: 05/17/21 17:35 Freq: Status: Active Protocol: Document 07/26/21 15:17 DCW (Rec: 07/26/21 15:58 DCW [id number]) Out-Patient Physical Therapy Visit Information Visit Information Visit Type Treatment Note Visit Start Time 15:17 Visit Stop Time 16:00 Total Visit Minutes 43 Visit Number 13 Number of PROGRESS WORKER Visits 0 Evaluation Information Evaluation Date 05/17/21 PT-OP-B Current Condition Start: 05/17/21 17:35 Freq: Status: Active Protocol: Document 05/17/21 15:25 DCW (Rec: 05/18/21 10:48 DCW [id number]) Current Condition History of Current Condition Onset Date Multi-year history Current Complaints Decreased balance, recent fall , esteves pain, back pain History of Current Condition Pt is an 86 year old female well known to this clinic presenting with complaints of declining balance, decreased activity tolerance, and leg/ back pain. Pt has undergone multiple rounds of therapy at this clinic for these same complaints, with varying levels of success. Pt notes that she experiences esteves pain fairly frequently, and her back bothers her if she stands longer than one minute.Admits to a fall a few days ago in her garage because she was rushing around, trying to do things too fast. Reports she landed on her back, which hurt at the time, but is now back to normal. Pt is also spending more energy caring for her recently, who has been struggling more with dementia . Pt was last in therapy three months ago, and feels like she has declined quite a bit since then. Treatment Goals Patient/Caregiver Goals Improve balance, activity tolerance, and decrease pain PT-OP-C Subjective Start: 05/17/21 17:35 Freq: Status: Active Protocol: Document 07/26/21 15:17 DCW (Rec: 07/26/21 15:58 DCW [id number]) OP-PT Subjective Patient Comments Patient Comments Pt feeling reasonable today. PT-OP-D Balance Start: 05/17/21 17:35 Freq: Status: Active Protocol: Document 05/17/21 15:25 DCW (Rec: 05/18/21 10:48 DCW [id number]) OP-PT Balance Assessment Sitting Balance Static Sitting Balance Ability Good Dynamic Sitting Balance Ability Good Standing Balance Static Standing Balance Ability Fair Dynamic Standing Balance Ability Poor Balance Tests Yanez Balance Test Yanez Balance Test Score 36/56 Yanez Impairment Rating 20 to 39% Impaired (Score 34- 44) Yanez Balance Assessment Evaluation Sitting to Standing Ability Independent w/Hands Unsupported Stance 30 seconds Sitting Unsupported, Feet on Floor Safely- 2 minutes Standing to Sitting Ability Safely, Minimal Hand Use Transfer Ability Safely, Hand Use Unsupported Stance- Eyes Closed Supervision, 10 seconds Unsupported Stance- Eyes Open Supervision to maintain Reaching Forward Standing Safely, 2 inches Pick- Up Object From Floor Supervision Look Behind Shoulder - Standing Turns Sideways Only Turning 360 Degrees Turns slowly, but safely Unsupported Stance, Alternating Feet on 4 Steps w/Supervision Stair Unsupported Tandem Stance Small Step- 30 seconds Unilateral Leg Stance Lifts Leg/Unable to Hold Total Score Yanez Total Score (out of 56 points) 36 Yanez Impairment Rating 20 to 39% Impaired (Score 34- 44) Mensah Fall Scale Copyright Permission PT-OP-E Functional Tests Start: 05/17/21 17:35 Freq: Status: Active Protocol: Document 05/17/21 15:25 DCW (Rec: 05/17/21 17:54 DCW [id number]) Functional Tests Timed Up and Go (TUG) Score 29.93 /c SPC Comments 3-trial average (29.85, 29.22, 30.71) TUG Impairment Rating 100% Impaired (Score 20) PT-OP-J Posture/Palpation/Skin Start: 05/17/21 17:35 Freq: Status: Active Protocol: Document 05/17/21 15:25 DCW (Rec: 05/18/21 10:48 OHW [id number]) Posture Evaluation Position Standing Evaluation View Posterior Head/C-Spine Posture Forward Head T-Spine Posture Fixed Scoliosis on (R), Increased Kyphosis L-Spine Posture Flattened,Fixed Scoliosis on ( L) PT-OP-M Strength Start: 05/17/21 17:35 Freq: Status: Active Protocol: Document 05/17/21 15:25 DCW (Rec: 05/18/21 10:48 OHW [id number]) Hip Strength Hip Manual Muscle Testing Right Flexion (L2) 4- Good- Abduction 3+ Fair+ Adduction 4- Good- Left Flexion (L2) 4- Good- Abduction 3+ Fair+ Adduction 4- Good- Knee Strength Knee Manual Muscle Testing Right Flexion (S2) 4 Good Extension (L3) 4- Good- Left Flexion (S2) 4- Good- Extension (L3) 3+ Fair+ PT-OP-Q Treatments Start: 05/17/21 17:35 Freq: Status: Active Protocol: Document 07/26/21 15:17 DCW (Rec: 07/26/21 15:58 DCW [id number]) Cardio Equipment Recumbent Elliptical (Biodex) Duration (Minutes) 5 Resistance 5 Seat Position 8 Gym Equipment Shuttle Balance Red Details WBOS (EO/EC), Staggered Stance Comments Min A, wt shifting/ stationary Neuro Re-Education Treatment Balance Activities Toe-taps Details Cross body toe-taps on cones Equipment 5# Ball pick-up/Toss Details Ball pick-up/toss Hurdles Details Hurdles Equipment 5# Comments Forward, side-stepping SLS Details SLS Equipment // bars PT-OP-T Assessment and Plan Start: 05/17/21 17:35 Freq: Status: Active Protocol: Document 07/26/21 15:17 DCW (Rec: 07/26/21 15:58 DCW [id number]) Physical Therapy Assessment Impairments Impairments Activity Tolerance,Balance, Functional Activities, Functional Mobility,Gait,Pain, Posture,Soft Tissue Mobility, Strength Goals Three Impairment Pt does not have an appropriate home exercise program Short Term Goal (STG) Pt to be independent and compliant with an appropriate HEP STG Duration 07/15/21 Two Impairment Pt exhibits bilateral weakness in hip abduction Hvac Service Tech Goal (LTG) Pt to increase hip abduction MMT bilaterally to at least 4/ 5 to improve stability and gait LTG Duration 08/14/21 One Impairment Pt displays increased falls risk per Yanez and TUG Hvac Service Tech Goal (LTG) Pt to increase Yanez score by at least 9 points to 45/56 to demonstrate a reduced falls risk. LTG Duration 08/14/21 Assessment Summary Assessment Tolerating balance challenges better, still fatiguing pretty quickly with more advanced activity. Physical Therapy Plan Frequency and Duration Frequency of Treatment 2x/Week Duration of Treatment Three months Plan of Care Start Date 05/17/21 Plan of Care End Date 08/14/21 Therapeutic Interventions Therapeutic Interventions Aquatic Therapy,Balance Training,Gait Training,Home Exercise Program,Joint Mobilizations,Manual Therapy, Neuromuscular Re-education, Patient/Caregiver Education, Self-Care/Home Management,Soft Tissue Mobilization, Therapeutic Activities, Therapeutic Exercises Modalities Cold Pack/Ice Massage,Electric Stimulation,Hot Packs Next Visit Focus/Plan Next Note Type Treatment Note Next Visit Plan LE strengthening, balance training
--- NOTE | 2021-07-28 15:14 | PT.OTN ---
Current Diagnoses Scoliosis, unspecified (07/28/21) Unsteadiness on feet (07/28/21) History of falling (07/28/21) Physical Therapy Treatment Note PT-OP-A Visit Information Start: 05/17/21 17:35 Freq: Status: Active Protocol: Document 07/28/21 14:30 DCW (Rec: 07/28/21 15:14 DCW [id number]) Out-Patient Physical Therapy Visit Information Visit Information Visit Type Treatment Note Visit Start Time 14:30 Visit Stop Time 15:15 Total Visit Minutes 45 Visit Number 14 Number of COAL HANDLING SUPERVISOR Visits 0 Evaluation Information Evaluation Date 05/17/21 PT-OP-B Current Condition Start: 05/17/21 17:35 Freq: Status: Active Protocol: Document 05/17/21 15:25 DCW (Rec: 05/18/21 10:48 DCW [id number]) Current Condition History of Current Condition Onset Date Multi-year history Current Complaints Decreased balance, recent fall , esteves pain, back pain History of Current Condition Pt is an 86 year old female well known to this clinic presenting with complaints of declining balance, decreased activity tolerance, and leg/ back pain. Pt has undergone multiple rounds of therapy at this clinic for these same complaints, with varying levels of success. Pt notes that she experiences esteves pain fairly frequently, and her back bothers her if she stands longer than one minute.Admits to a fall a few days ago in her garage because she was rushing around, trying to do things too fast. Reports she landed on her back, which hurt at the time, but is now back to normal. Pt is also spending more energy caring for her recently, who has been struggling more with dementia . Pt was last in therapy three months ago, and feels like she has declined quite a bit since then. Treatment Goals Patient/Caregiver Goals Improve balance, activity tolerance, and decrease pain PT-OP-C Subjective Start: 05/17/21 17:35 Freq: Status: Active Protocol: Document 07/28/21 14:30 DCW (Rec: 07/28/21 15:14 DCW [id number]) OP-PT Subjective Patient Comments Patient Comments Pt has spent most of today out gardening, notes some increased back pain, but that 's kind of expected. PT-OP-D Balance Start: 05/17/21 17:35 Freq: Status: Active Protocol: Document 05/17/21 15:25 DCW (Rec: 05/18/21 10:48 DCW [id number]) OP-PT Balance Assessment Sitting Balance Static Sitting Balance Ability Good Dynamic Sitting Balance Ability Good Standing Balance Static Standing Balance Ability Fair Dynamic Standing Balance Ability Poor Balance Tests Yanez Balance Test Yanez Balance Test Score 36/56 Yanez Impairment Rating 20 to 39% Impaired (Score 34- 44) Yanez Balance Assessment Evaluation Sitting to Standing Ability Independent w/Hands Unsupported Stance 30 seconds Sitting Unsupported, Feet on Floor Safely- 2 minutes Standing to Sitting Ability Safely, Minimal Hand Use Transfer Ability Safely, Hand Use Unsupported Stance- Eyes Closed Supervision, 10 seconds Unsupported Stance- Eyes Open Supervision to maintain Reaching Forward Standing Safely, 2 inches Pick- Up Object From Floor Supervision Look Behind Shoulder - Standing Turns Sideways Only Turning 360 Degrees Turns slowly, but safely Unsupported Stance, Alternating Feet on 4 Steps w/Supervision Stair Unsupported Tandem Stance Small Step- 30 seconds Unilateral Leg Stance Lifts Leg/Unable to Hold Total Score Yanez Total Score (out of 56 points) 36 Yanez Impairment Rating 20 to 39% Impaired (Score 34- 44) Mensah Fall Scale Copyright Permission PT-OP-E Functional Tests Start: 05/17/21 17:35 Freq: Status: Active Protocol: Document 05/17/21 15:25 DCW (Rec: 05/17/21 17:54 DCW [id number]) Functional Tests Timed Up and Go (TUG) Score 29.93 /c SPC Comments 3-trial average (29.85, 29.22, 30.71) TUG Impairment Rating 100% Impaired (Score 20) PT-OP-J Posture/Palpation/Skin Start: 05/17/21 17:35 Freq: Status: Active Protocol: Document 05/17/21 15:25 DCW (Rec: 05/18/21 10:48 DCW [id number]) Posture Evaluation Position Standing Evaluation View Posterior Head/C-Spine Posture Forward Head T-Spine Posture Fixed Scoliosis on (R), Increased Kyphosis L-Spine Posture Flattened,Fixed Scoliosis on ( L) PT-OP-M Strength Start: 05/17/21 17:35 Freq: Status: Active Protocol: Document 05/17/21 15:25 DCW (Rec: 05/18/21 10:48 DCW [id number]) Hip Strength Hip Manual Muscle Testing Right Flexion (L2) 4- Good- Abduction 3+ Fair+ Adduction 4- Good- Left Flexion (L2) 4- Good- Abduction 3+ Fair+ Adduction 4- Good- Knee Strength Knee Manual Muscle Testing Right Flexion (S2) 4 Good Extension (L3) 4- Good- Left Flexion (S2) 4- Good- Extension (L3) 3+ Fair+ PT-OP-Q Treatments Start: 05/17/21 17:35 Freq: Status: Active Protocol: Document 07/28/21 14:30 DCW (Rec: 07/28/21 15:14 DCW [id number]) Cardio Equipment Recumbent Elliptical (Biodex) Duration (Minutes) 5 Resistance 5 Seat Position 8 Gym Equipment Shuttle Balance Red Details WBOS (EO/EC), Staggered Stance Comments Min A, wt shifting/ stationary Neuro Re-Education Treatment Balance Activities NBOS Details NBOS Limits of stability, cone movements Toe-taps Details Cross body toe-taps on cones Equipment 5# Ball pick-up/Toss Details Ball pick-up/toss Surface Pascual foam Hurdles Details Hurdles Equipment 5# Comments Forward, side-stepping PT-OP-T Assessment and Plan Start: 05/17/21 17:35 Freq: Status: Active Protocol: Document 07/28/21 14:30 DCW (Rec: 07/28/21 15:14 DCW [id number]) Physical Therapy Assessment Impairments Impairments Activity Tolerance,Balance, Functional Activities, Functional Mobility,Gait,Pain, Posture,Soft Tissue Mobility, Strength Goals Three Impairment Pt does not have an appropriate home exercise program Short Term Goal (STG) Pt to be independent and compliant with an appropriate HEP STG Duration 07/15/21 Two Impairment Pt exhibits bilateral weakness in hip abduction Care Home Goal (LTG) Pt to increase hip abduction MMT bilaterally to at least 4/ 5 to improve stability and gait LTG Duration 08/14/21 One Impairment Pt displays increased falls risk per Yanez and TUG Continuous Pickling Line Pickler Goal (LTG) Pt to increase Yanez score by at least 9 points to 45/56 to demonstrate a reduced falls risk. LTG Duration 08/14/21 Assessment Summary Assessment Pt struggled more today with hurdles, kept arms out and grabbed for rails more frequently with balance challenges. Physical Therapy Plan Frequency and Duration Frequency of Treatment 2x/Week Duration of Treatment Three months Plan of Care Start Date 05/17/21 Plan of Care End Date 08/14/21 Therapeutic Interventions Therapeutic Interventions Aquatic Therapy,Balance Training,Gait Training,Home Exercise Program,Joint Mobilizations,Manual Therapy, Neuromuscular Re-education, Patient/Caregiver Education, Self-Care/Home Management,Soft Tissue Mobilization, Therapeutic Activities, Therapeutic Exercises Modalities Cold Pack/Ice Massage,Electric Stimulation,Hot Packs Next Visit Focus/Plan Next Note Type Treatment Note Next Visit Plan LE strengthening, balance training
--- NOTE | 2021-08-04 15:14 | PT.OTN ---
Current Diagnoses Scoliosis, unspecified (08/04/21) Unsteadiness on feet (08/04/21) History of falling (08/04/21) Physical Therapy Treatment Note PT-OP-A Visit Information Start: 05/17/21 17:35 Freq: Status: Active Protocol: Document 08/04/21 14:30 DCW (Rec: 08/04/21 15:14 DCW [id number]) Out-Patient Physical Therapy Visit Information Visit Information Visit Type Treatment Note Visit Start Time 14:30 Visit Stop Time 15:00 Total Visit Minutes 30 Visit Number 15 Number of TOXICS PROGRAM OFFICER Visits 0 Evaluation Information Evaluation Date 05/17/21 PT-OP-B Current Condition Start: 05/17/21 17:35 Freq: Status: Active Protocol: Document 05/17/21 15:25 DCW (Rec: 05/18/21 10:48 DCW [id number]) Current Condition History of Current Condition Onset Date Multi-year history Current Complaints Decreased balance, recent fall , esteves pain, back pain History of Current Condition Pt is an 86 year old female well known to this clinic presenting with complaints of declining balance, decreased activity tolerance, and leg/ back pain. Pt has undergone multiple rounds of therapy at this clinic for these same complaints, with varying levels of success. Pt notes that she experiences esteves pain fairly frequently, and her back bothers her if she stands longer than one minute.Admits to a fall a few days ago in her garage because she was rushing around, trying to do things too fast. Reports she landed on her back, which hurt at the time, but is now back to normal. Pt is also spending more energy caring for her recently, who has been struggling more with dementia . Pt was last in therapy three months ago, and feels like she has declined quite a bit since then. Treatment Goals Patient/Caregiver Goals Improve balance, activity tolerance, and decrease pain PT-OP-C Subjective Start: 05/17/21 17:35 Freq: Status: Active Protocol: Document 08/04/21 14:30 DCW (Rec: 08/04/21 15:14 DCW [id number]) OP-PT Subjective Patient Comments Patient Comments It's been kind of a shaky day , and I don't know why. Reports that her right hip is really bothering her today, but doesn't remember doing anything to it. PT-OP-D Balance Start: 05/17/21 17:35 Freq: Status: Active Protocol: Document 05/17/21 15:25 DCW (Rec: 05/18/21 10:48 DCW [id number]) OP-PT Balance Assessment Sitting Balance Static Sitting Balance Ability Good Dynamic Sitting Balance Ability Good Standing Balance Static Standing Balance Ability Fair Dynamic Standing Balance Ability Poor Balance Tests Yanez Balance Test Yanez Balance Test Score 36/56 Yanez Impairment Rating 20 to 39% Impaired (Score 34- 44) Yanez Balance Assessment Evaluation Sitting to Standing Ability Independent w/Hands Unsupported Stance 30 seconds Sitting Unsupported, Feet on Floor Safely- 2 minutes Standing to Sitting Ability Safely, Minimal Hand Use Transfer Ability Safely, Hand Use Unsupported Stance- Eyes Closed Supervision, 10 seconds Unsupported Stance- Eyes Open Supervision to maintain Reaching Forward Standing Safely, 2 inches Pick- Up Object From Floor Supervision Look Behind Shoulder - Standing Turns Sideways Only Turning 360 Degrees Turns slowly, but safely Unsupported Stance, Alternating Feet on 4 Steps w/Supervision Stair Unsupported Tandem Stance Small Step- 30 seconds Unilateral Leg Stance Lifts Leg/Unable to Hold Total Score Yanez Total Score (out of 56 points) 36 Yanez Impairment Rating 20 to 39% Impaired (Score 34- 44) Mensah Fall Scale Copyright Permission PT-OP-E Functional Tests Start: 05/17/21 17:35 Freq: Status: Active Protocol: Document 05/17/21 15:25 DCW (Rec: 05/17/21 17:54 DCW [id number]) Functional Tests Timed Up and Go (TUG) Score 29.93 /c SPC Comments 3-trial average (29.85, 29.22, 30.71) TUG Impairment Rating 100% Impaired (Score 20) PT-OP-J Posture/Palpation/Skin Start: 05/17/21 17:35 Freq: Status: Active Protocol: Document 05/17/21 15:25 DCW (Rec: 05/18/21 10:48 DCW [id number]) Posture Evaluation Position Standing Evaluation View Posterior Head/C-Spine Posture Forward Head T-Spine Posture Fixed Scoliosis on (R), Increased Kyphosis L-Spine Posture Flattened,Fixed Scoliosis on ( L) PT-OP-M Strength Start: 05/17/21 17:35 Freq: Status: Active Protocol: Document 05/17/21 15:25 DCW (Rec: 05/18/21 10:48 DCW [id number]) Hip Strength Hip Manual Muscle Testing Right Flexion (L2) 4- Good- Abduction 3+ Fair+ Adduction 4- Good- Left Flexion (L2) 4- Good- Abduction 3+ Fair+ Adduction 4- Good- Knee Strength Knee Manual Muscle Testing Right Flexion (S2) 4 Good Extension (L3) 4- Good- Left Flexion (S2) 4- Good- Extension (L3) 3+ Fair+ PT-OP-Q Treatments Start: 05/17/21 17:35 Freq: Status: Active Protocol: Document 08/04/21 14:30 DCW (Rec: 08/04/21 15:14 DCW [id number]) Cardio Equipment Recumbent Elliptical ([employer]) Duration (Minutes) 5 Resistance 5 Seat Position 8 Gym Equipment Shuttle Balance Red Details WBOS (EO/EC), Staggered Stance Comments Min A, wt shifting/ stationary Therapeutic Exercises Sitting Exercises 1 Sitting Exercise Name Hip abduction Side bilateral Resistance Lv 3 Comments Stopped d/t R hip pain Neuro Re-Education Treatment Balance Activities NBOS Details NBOS Limits of stability, cone movements Toe-taps Details Cross body toe-taps on cones Comments Seated d/t hip pain Ball pick-up/Toss Details Ball pick-up/toss PT-OP-T Assessment and Plan Start: 05/17/21 17:35 Freq: Status: Active Protocol: Document 08/04/21 14:30 DCW (Rec: 08/04/21 15:14 DCW [id number]) Physical Therapy Assessment Impairments Impairments Activity Tolerance,Balance, Functional Activities, Functional Mobility,Gait,Pain, Posture,Soft Tissue Mobility, Strength Goals Three Impairment Pt does not have an appropriate home exercise program Short Term Goal (STG) Pt to be independent and compliant with an appropriate HEP STG Duration 07/15/21 Two Impairment Pt exhibits bilateral weakness in hip abduction Care Home Goal (LTG) Pt to increase hip abduction MMT bilaterally to at least 4/ 5 to improve stability and gait LTG Duration 08/14/21 One Impairment Pt displays increased falls risk per Yanez and TUG Care Home Goal (LTG) Pt to increase Yanez score by at least 9 points to 45/56 to demonstrate a reduced falls risk. LTG Duration 08/14/21 Assessment Summary Assessment Pt did well overall with balance today, but was noticeably limited due to her unusual right hip pain. Had to stop early due to pt's continuing hip pain. Physical Therapy Plan Frequency and Duration Frequency of Treatment 2x/Week Duration of Treatment Three months Plan of Care Start Date 05/17/21 Plan of Care End Date 08/14/21 Therapeutic Interventions Therapeutic Interventions Aquatic Therapy,Balance Training,Gait Training,Home Exercise Program,Joint Mobilizations,Manual Therapy, Neuromuscular Re-education, Patient/Caregiver Education, Self-Care/Home Management,Soft Tissue Mobilization, Therapeutic Activities, Therapeutic Exercises Modalities Cold Pack/Ice Massage,Electric Stimulation,Hot Packs Next Visit Focus/Plan Next Note Type Treatment Note Next Visit Plan LE strengthening, balance training
--- NOTE | 2021-09-06 12:12 | PT.OTN ---
Current Diagnoses Scoliosis, unspecified (09/06/21) Unsteadiness on feet (09/06/21) History of falling (09/06/21) Physical Therapy Treatment Note PT-OP-A Visit Information Start: 05/17/21 17:35 Freq: Status: Active Protocol: Document 09/06/21 11:18 DCW (Rec: 09/06/21 12:12 DCW [id number]) Out-Patient Physical Therapy Visit Information Visit Information Visit Type Progress Note Visit Start Time 11:18 Visit Stop Time 12:00 Total Visit Minutes 42 Visit Number 16 Number of BROADCAST CHIEF ENGINEER Visits 0 Evaluation Information Evaluation Date 05/17/21 PT-OP-B Current Condition Start: 05/17/21 17:35 Freq: Status: Active Protocol: Document 05/17/21 15:25 DCW (Rec: 05/18/21 10:48 DCW [id number]) Current Condition History of Current Condition Onset Date Multi-year history Current Complaints Decreased balance, recent fall , esteves pain, back pain History of Current Condition Pt is an 86 year old female well known to this clinic presenting with complaints of declining balance, decreased activity tolerance, and leg/ back pain. Pt has undergone multiple rounds of therapy at this clinic for these same complaints, with varying levels of success. Pt notes that she experiences esteves pain fairly frequently, and her back bothers her if she stands longer than one minute.Admits to a fall a few days ago in her garage because she was rushing around, trying to do things too fast. Reports she landed on her back, which hurt at the time, but is now back to normal. Pt is also spending more energy caring for her recently, who has been struggling more with dementia . Pt was last in therapy three months ago, and feels like she has declined quite a bit since then. Treatment Goals Patient/Caregiver Goals Improve balance, activity tolerance, and decrease pain PT-OP-C Subjective Start: 05/17/21 17:35 Freq: Status: Active Protocol: Document 09/06/21 11:18 DCW (Rec: 09/06/21 12:12 DCW [id number]) OP-PT Subjective Patient Comments Patient Comments I just always hurt in random places. PT-OP-D Balance Start: 05/17/21 17:35 Freq: Status: Active Protocol: Document 09/06/21 11:18 DCW (Rec: 09/06/21 11:43 DC [id number]) OP-PT Balance Assessment Sitting Balance Static Sitting Balance Ability Good Dynamic Sitting Balance Ability Good Standing Balance Static Standing Balance Ability Fair Dynamic Standing Balance Ability Poor Balance Tests Yanez Balance Test Yanez Balance Test Score 37/56 Yanez Impairment Rating 20 to 39% Impaired (Score 34- 44) Yanez Balance Assessment Evaluation Sitting to Standing Ability Independent w/Hands Unsupported Stance Supervision- 2 minutes Sitting Unsupported, Feet on Floor Safely- 2 minutes Standing to Sitting Ability Safely, Minimal Hand Use Transfer Ability Safely, Hand Use Unsupported Stance- Eyes Closed Supervision, 10 seconds Unsupported Stance- Eyes Open Supervision to maintain Reaching Forward Standing Safely, 2 inches Pick- Up Object From Floor Independent/Safe Look Behind Shoulder - Standing Turns Sideways Only Turning 360 Degrees Turns slowly, but safely Unsupported Stance, Alternating Feet on 2 Steps w/Minimum Assist Stair Unsupported Tandem Stance Small Step- 30 seconds Unilateral Leg Stance Lifts Leg/Unable to Hold Total Score Yanez Total Score (out of 56 points) 37 Yanez Impairment Rating 20 to 39% Impaired (Score 34- 44) Mensah Fall Scale Copyright Permission PT-OP-E Functional Tests Start: 05/17/21 17:35 Freq: Status: Active Protocol: Document 09/06/21 11:18 DCW (Rec: 09/06/21 11:43 [facility] [id number]) Functional Tests Timed Up and Go (TUG) Score 23.29 /c SPC Comments 3-trial average (22.57, 22.95, 24.36) TUG Impairment Rating 100% Impaired (Score 20) PT-OP-J Posture/Palpation/Skin Start: 05/17/21 17:35 Freq: Status: Active Protocol: Document 09/06/21 11:18 DCW (Rec: 09/06/21 11:43 [facility] [id number]) Posture Evaluation Position Standing Evaluation View Posterior Head/C-Spine Posture Forward Head T-Spine Posture Fixed Scoliosis on (R), Increased Kyphosis L-Spine Posture Flattened,Fixed Scoliosis on ( L) PT-OP-M Strength Start: 05/17/21 17:35 Freq: Status: Active Protocol: Document 09/06/21 11:18 DCW (Rec: 09/06/21 11:43 [facility] [id number]) Hip Strength Hip Manual Muscle Testing Right Flexion (L2) 3+ Fair+ Abduction 4 Good Adduction 4 Good Comments R Groin pain today limited MMT Left Flexion (L2) 4 Good Abduction 4 Good Adduction 4 Good Knee Strength Knee Manual Muscle Testing Right Flexion (S2) 4 Good Extension (L3) 4 Good Left Flexion (S2) 4 Good Extension (L3) 4 Good PT-OP-Q Treatments Start: 05/17/21 17:35 Freq: Status: Active Protocol: Document 09/06/21 11:18 DCW (Rec: 09/06/21 12:12 DCW [id number]) Cardio Equipment Recumbent Elliptical ([employer]) Duration (Minutes) 5 Resistance 5 Seat Position 9 Therapeutic Exercises Sitting Exercises 1 Sitting Exercise Name Hip abduction Side bilateral Resistance Lv 3 Comments Stopped d/t R hip pain Neuro Re-Education Treatment Other Activities Testing Details Yanez, TUG, MMT PT-OP-T Assessment and Plan Start: 05/17/21 17:35 Freq: Status: Active Protocol: Document 09/06/21 11:18 DCW (Rec: 09/06/21 12:12 DCW [id number]) Physical Therapy Assessment Impairments Impairments Activity Tolerance,Balance, Functional Activities, Functional Mobility,Gait,Pain, Posture,Soft Tissue Mobility, Strength Goals Three Impairment Pt does not have an appropriate home exercise program Short Term Goal (STG) Pt to be independent and compliant with an appropriate HEP STG Duration 10/06/21 - Improving Two Impairment Pt exhibits bilateral weakness in hip abduction Short Term Goal (STG) Pt to increase hip abduction MMT bilaterally to at least 4/ 5 to improve stability and gait STG Duration Met Fish Filleter Goal (LTG) Pt to increase left hip flexion MMT to at least 4/5 to improve stability and gait LTG Duration 12/15/21 One Impairment Pt displays increased falls risk per Yanez and TUG Fish Filleter Goal (LTG) Pt to increase Yanez score by at least 9 points to 45/56 to demonstrate a reduced falls risk. LTG Duration 12/15/21 - Improving Assessment Summary Assessment Pt returns following a month- long layoff from therapy, has been trying to get some relief from ongoing back pain, has been meeting with Ortho and received injections. Today's reassessment showed good improvement with TUG, more than a 6.5 second improvement compared to eval. some good improvement with hip MMT. Minimal (1 point) gains in Yanez. Will likely benefit from continued therapy focused on improved balance and LE strength. Physical Therapy Plan Frequency and Duration Frequency of Treatment 2x/Week Duration of Treatment 90 days Plan of Care Start Date 09/06/21 Plan of Care End Date 12/05/21 Therapeutic Interventions Therapeutic Interventions Aquatic Therapy,Balance Training,Gait Training,Home Exercise Program,Joint Mobilizations,Manual Therapy, Neuromuscular Re-education, Patient/Caregiver Education, Self-Care/Home Management,Soft Tissue Mobilization, Therapeutic Activities, Therapeutic Exercises Modalities Cold Pack/Ice Massage,Electric Stimulation,Hot Packs Next Visit Focus/Plan Next Note Type Treatment Note Next Visit Plan LE strengthening, balance training
--- NOTE | 2021-09-06 12:13 | PT.OPPOC ---
Physical, Occupational & Speech Therapy At [facility] Current Diagnoses Scoliosis, unspecified (09/06/21) Unsteadiness on feet (09/06/21) History of falling (09/06/21) Visit Care Team Role Provider Type Jia Sheridan MD Family Provider Physician Primary Care Provider Specialty: Family Practice Address: [address] [place] [address], [facility] [place], [address] Email: [email or web address] DO Attending Provider Physician Referring Provider Specialty: Physiatry Pain Management Address: [address] [place] [address], [id number] Email: [email or web address] Plan Of Care PT-OP-T Assessment and Plan Start: 05/17/21 17:35 Freq: Status: Active Protocol: Document 09/06/21 11:18 DCW (Rec: 09/06/21 12:12 DCW [id number]) Physical Therapy Assessment Impairments Impairments Activity Tolerance,Balance, Functional Activities, Functional Mobility,Gait,Pain, Posture,Soft Tissue Mobility, Strength Goals Three Impairment Pt does not have an appropriate home exercise program Short Term Goal (STG) Pt to be independent and compliant with an appropriate HEP STG Duration 10/06/21 - Improving Two Impairment Pt exhibits bilateral weakness in hip abduction Short Term Goal (STG) Pt to increase hip abduction MMT bilaterally to at least 4/ 5 to improve stability and gait STG Duration Met [facility] Goal (LTG) Pt to increase left hip flexion MMT to at least 4/5 to improve stability and gait LTG Duration 12/15/21 One Impairment Pt displays increased falls risk per Yanez and TUG Lockstitch Back Maker Goal (LTG) Pt to increase Yanez score by at least 9 points to 45/56 to demonstrate a reduced falls risk. LTG Duration 12/15/21 - Improving Assessment Summary Assessment Pt returns following a month- long layoff from therapy, has been trying to get some relief from ongoing back pain, has been meeting with Ortho and received injections. Today's reassessment showed good improvement with TUG, more than a 6.5 second improvement compared to eval. some good improvement with hip MMT. Minimal (1 point) gains in Yanez. Will likely benefit from continued therapy focused on improved balance and LE strength. Physical Therapy Plan Frequency and Duration Frequency of Treatment 2x/Week Duration of Treatment 90 days Plan of Care Start Date 09/06/21 Plan of Care End Date 12/05/21 Therapeutic Interventions Therapeutic Interventions Aquatic Therapy,Balance Training,Gait Training,Home Exercise Program,Joint Mobilizations,Manual Therapy, Neuromuscular Re-education, Patient/Caregiver Education, Self-Care/Home Management,Soft Tissue Mobilization, Therapeutic Activities, Therapeutic Exercises Modalities Cold Pack/Ice Massage,Electric Stimulation,Hot Packs Next Visit Focus/Plan Next Note Type Treatment Note Next Visit Plan LE strengthening, balance training Plan of Care Dates Plan of Care Start Date 09/06/21 Plan of Care End Date 12/05/21 Electronically Signed by: Wallace Wilson, PT 09/06/21 2988 If you are in agreement with this Plan of Care, please return a signed and dated copy. I have reviewed this Plan of Care and certify that the skilled therapy services above are required to meet the patient?s needs. Physician Signature Date Printed Name and Credentials Clinical Instructor Signature Printed Name and Credentials
--- NOTE | 2021-09-13 17:34 | PT.OTN ---
Current Diagnoses Scoliosis, unspecified (09/13/21) Unsteadiness on feet (09/13/21) History of falling (09/13/21) Physical Therapy Treatment Note PT-OP-A Visit Information Start: 05/17/21 17:35 Freq: Status: Active Protocol: Document 09/13/21 16:45 DCW (Rec: 09/13/21 17:33 DCW [id number]) Out-Patient Physical Therapy Visit Information Visit Information Visit Type Treatment Note Visit Start Time 16:45 Visit Stop Time 17:30 Total Visit Minutes 45 Visit Number 17 Number of PRESIDENT CELEBRITY ACQUISTION Visits 0 Evaluation Information Evaluation Date 05/17/21 PT-OP-B Current Condition Start: 05/17/21 17:35 Freq: Status: Active Protocol: Document 05/17/21 15:25 DCW (Rec: 05/18/21 10:48 DCW [id number]) Current Condition History of Current Condition Onset Date Multi-year history Current Complaints Decreased balance, recent fall , esteves pain, back pain History of Current Condition Pt is an 86 year old female well known to this clinic presenting with complaints of declining balance, decreased activity tolerance, and leg/ back pain. Pt has undergone multiple rounds of therapy at this clinic for these same complaints, with varying levels of success. Pt notes that she experiences esteves pain fairly frequently, and her back bothers her if she stands longer than one minute.Admits to a fall a few days ago in her garage because she was rushing around, trying to do things too fast. Reports she landed on her back, which hurt at the time, but is now back to normal. Pt is also spending more energy caring for her recently, who has been struggling more with dementia . Pt was last in therapy three months ago, and feels like she has declined quite a bit since then. Treatment Goals Patient/Caregiver Goals Improve balance, activity tolerance, and decrease pain PT-OP-C Subjective Start: 05/17/21 17:35 Freq: Status: Active Protocol: Document 09/13/21 16:45 DCW (Rec: 09/13/21 17:33 DCW [id number]) OP-PT Subjective Patient Comments Patient Comments The pain in my leg has gone away quite a bit, it's still there a little bit. PT-OP-D Balance Start: 05/17/21 17:35 Freq: Status: Active Protocol: Document 09/06/21 11:18 DCW (Rec: 09/06/21 11:43 DCW [id number]) OP-PT Balance Assessment Sitting Balance Static Sitting Balance Ability Good Dynamic Sitting Balance Ability Good Standing Balance Static Standing Balance Ability Fair Dynamic Standing Balance Ability Poor Balance Tests Yanez Balance Test Yanez Balance Test Score 37/56 Yanez Impairment Rating 20 to 39% Impaired (Score 34- 44) Yanez Balance Assessment Evaluation Sitting to Standing Ability Independent w/Hands Unsupported Stance Supervision- 2 minutes Sitting Unsupported, Feet on Floor Safely- 2 minutes Standing to Sitting Ability Safely, Minimal Hand Use Transfer Ability Safely, Hand Use Unsupported Stance- Eyes Closed Supervision, 10 seconds Unsupported Stance- Eyes Open Supervision to maintain Reaching Forward Standing Safely, 2 inches Pick- Up Object From Floor Independent/Safe Look Behind Shoulder - Standing Turns Sideways Only Turning 360 Degrees Turns slowly, but safely Unsupported Stance, Alternating Feet on 2 Steps w/Minimum Assist Stair Unsupported Tandem Stance Small Step- 30 seconds Unilateral Leg Stance Lifts Leg/Unable to Hold Total Score Yanez Total Score (out of 56 points) 37 Yanez Impairment Rating 20 to 39% Impaired (Score 34- 44) Mensah Fall Scale Copyright Permission PT-OP-E Functional Tests Start: 05/17/21 17:35 Freq: Status: Active Protocol: Document 09/06/21 11:18 DCW (Rec: 09/06/21 11:43 DCW [id number]) Functional Tests Timed Up and Go (TUG) Score 23.29 /c SPC Comments 3-trial average (22.57, 22.95, 24.36) TUG Impairment Rating 100% Impaired (Score 20) PT-OP-J Posture/Palpation/Skin Start: 05/17/21 17:35 Freq: Status: Active Protocol: Document 09/06/21 11:18 DCW (Rec: 09/06/21 11:43 DCW [id number]) Posture Evaluation Position Standing Evaluation View Posterior Head/C-Spine Posture Forward Head T-Spine Posture Fixed Scoliosis on (R), Increased Kyphosis L-Spine Posture Flattened,Fixed Scoliosis on ( L) PT-OP-M Strength Start: 05/17/21 17:35 Freq: Status: Active Protocol: Document 09/06/21 11:18 DCW (Rec: 09/06/21 11:43 DCW [id number]) Hip Strength Hip Manual Muscle Testing Right Flexion (L2) 3+ Fair+ Abduction 4 Good Adduction 4 Good Comments R Groin pain today limited MMT Left Flexion (L2) 4 Good Abduction 4 Good Adduction 4 Good Knee Strength Knee Manual Muscle Testing Right Flexion (S2) 4 Good Extension (L3) 4 Good Left Flexion (S2) 4 Good Extension (L3) 4 Good PT-OP-Q Treatments Start: 05/17/21 17:35 Freq: Status: Active Protocol: Document 09/13/21 16:45 DCW (Rec: 09/13/21 17:33 [facility] [id number]) Cardio Equipment Recumbent Elliptical (Biodex) Duration (Minutes) 5 Resistance 5 Seat Position 9 Gym Equipment Shuttle Balance Red Details WBOS (EO/EC), Staggered Stance Comments Min A, wt shifting/ stationary Therapeutic Exercises Sitting Exercises 1 Sitting Exercise Name Hip abduction Side bilateral Resistance Lv 3 Neuro Re-Education Treatment Balance Activities NBOS Details NBOS Limits of stability, cone movements Toe-taps Details Cross body toe-taps on cones Ball pick-up/Toss Details Ball pick-up/toss SLS Details SLS Surface Pascual foam Equipment // bars PT-OP-T Assessment and Plan Start: 05/17/21 17:35 Freq: Status: Active Protocol: Document 09/13/21 16:45 DCW (Rec: 09/13/21 17:33 DC [id number]) Physical Therapy Assessment Impairments Impairments Activity Tolerance,Balance, Functional Activities, Functional Mobility,Gait,Pain, Posture,Soft Tissue Mobility, Strength Goals Three Impairment Pt does not have an appropriate home exercise program Short Term Goal (STG) Pt to be independent and compliant with an appropriate HEP STG Duration 10/06/21 - Improving Two Impairment Pt exhibits bilateral weakness in hip abduction Short Term Goal (STG) Pt to increase hip abduction MMT bilaterally to at least 4/ 5 to improve stability and gait STG Duration Met Assisted Goal (LTG) Pt to increase left hip flexion MMT to at least 4/5 to improve stability and gait LTG Duration 12/15/21 One Impairment Pt displays increased falls risk per Yanez and TUG Tunnel Kiln Repairer Goal (LTG) Pt to increase Yanez score by at least 9 points to 45/56 to demonstrate a reduced falls risk. LTG Duration 12/15/21 - Improving Assessment Summary Assessment Pt performing much better today, no complaints of hip or leg pain, performed her balance exercises with increased challenge. Physical Therapy Plan Frequency and Duration Frequency of Treatment 2x/Week Duration of Treatment 90 days Plan of Care Start Date 09/06/21 Plan of Care End Date 12/05/21 Therapeutic Interventions Therapeutic Interventions Aquatic Therapy,Balance Training,Gait Training,Home Exercise Program,Joint Mobilizations,Manual Therapy, Neuromuscular Re-education, Patient/Caregiver Education, Self-Care/Home Management,Soft Tissue Mobilization, Therapeutic Activities, Therapeutic Exercises Modalities Cold Pack/Ice Massage,Electric Stimulation,Hot Packs Next Visit Focus/Plan Next Note Type Treatment Note Next Visit Plan LE strengthening, balance training
--- NOTE | 2021-09-23 10:29 | PT.OTN ---
Current Diagnoses Scoliosis, unspecified (09/23/21) Unsteadiness on feet (09/23/21) History of falling (09/23/21) Physical Therapy Treatment Note PT-OP-A Visit Information Start: 05/17/21 17:35 Freq: Status: Active Protocol: Document 09/23/21 09:53 DCW (Rec: 09/23/21 10:29 DCW [id number]) Out-Patient Physical Therapy Visit Information Visit Information Visit Type Treatment Note Visit Note 9 min late Visit Start Time 09:54 Visit Stop Time 10:30 Total Visit Minutes 36 Visit Number 18 Number of SALES PROJECT ADMINISTRATOR Visits 0 Evaluation Information Evaluation Date 05/17/21 PT-OP-B Current Condition Start: 05/17/21 17:35 Freq: Status: Active Protocol: Document 05/17/21 15:25 DCW (Rec: 05/18/21 10:48 DCW [id number]) Current Condition History of Current Condition Onset Date Multi-year history Current Complaints Decreased balance, recent fall , esteves pain, back pain History of Current Condition Pt is an 86 year old female well known to this clinic presenting with complaints of declining balance, decreased activity tolerance, and leg/ back pain. Pt has undergone multiple rounds of therapy at this clinic for these same complaints, with varying levels of success. Pt notes that she experiences esteves pain fairly frequently, and her back bothers her if she stands longer than one minute.Admits to a fall a few days ago in her garage because she was rushing around, trying to do things too fast. Reports she landed on her back, which hurt at the time, but is now back to normal. Pt is also spending more energy caring for her recently, who has been struggling more with dementia . Pt was last in therapy three months ago, and feels like she has declined quite a bit since then. Treatment Goals Patient/Caregiver Goals Improve balance, activity tolerance, and decrease pain PT-OP-C Subjective Start: 05/17/21 17:35 Freq: Status: Active Protocol: Document 09/23/21 09:53 DCW (Rec: 09/23/21 10:29 DCW [id number]) OP-PT Subjective Patient Comments Patient Comments Pt notes her has been having a lot of falls and she is struggling with a lot right now. PT-OP-D Balance Start: 05/17/21 17:35 Freq: Status: Active Protocol: Document 09/06/21 11:18 DCW (Rec: 09/06/21 11:43 DCW [id number]) OP-PT Balance Assessment Sitting Balance Static Sitting Balance Ability Good Dynamic Sitting Balance Ability Good Standing Balance Static Standing Balance Ability Fair Dynamic Standing Balance Ability Poor Balance Tests Yanez Balance Test Yanez Balance Test Score 37/56 Yanez Impairment Rating 20 to 39% Impaired (Score 34- 44) Yanez Balance Assessment Evaluation Sitting to Standing Ability Independent w/Hands Unsupported Stance Supervision- 2 minutes Sitting Unsupported, Feet on Floor Safely- 2 minutes Standing to Sitting Ability Safely, Minimal Hand Use Transfer Ability Safely, Hand Use Unsupported Stance- Eyes Closed Supervision, 10 seconds Unsupported Stance- Eyes Open Supervision to maintain Reaching Forward Standing Safely, 2 inches Pick- Up Object From Floor Independent/Safe Look Behind Shoulder - Standing Turns Sideways Only Turning 360 Degrees Turns slowly, but safely Unsupported Stance, Alternating Feet on 2 Steps w/Minimum Assist Stair Unsupported Tandem Stance Small Step- 30 seconds Unilateral Leg Stance Lifts Leg/Unable to Hold Total Score Yanez Total Score (out of 56 points) 37 Yanez Impairment Rating 20 to 39% Impaired (Score 34- 44) Mensah Fall Scale Copyright Permission PT-OP-E Functional Tests Start: 05/17/21 17:35 Freq: Status: Active Protocol: Document 09/06/21 11:18 DCW (Rec: 09/06/21 11:43 DC [id number]) Functional Tests Timed Up and Go (TUG) Score 23.29 /c SPC Comments 3-trial average (22.57, 22.95, 24.36) TUG Impairment Rating 100% Impaired (Score 20) PT-OP-J Posture/Palpation/Skin Start: 05/17/21 17:35 Freq: Status: Active Protocol: Document 09/06/21 11:18 DCW (Rec: 09/06/21 11:43 DCW [id number]) Posture Evaluation Position Standing Evaluation View Posterior Head/C-Spine Posture Forward Head T-Spine Posture Fixed Scoliosis on (R), Increased Kyphosis L-Spine Posture Flattened,Fixed Scoliosis on ( L) PT-OP-M Strength Start: 05/17/21 17:35 Freq: Status: Active Protocol: Document 09/06/21 11:18 DCW (Rec: 09/06/21 11:43 DCW [id number]) Hip Strength Hip Manual Muscle Testing Right Flexion (L2) 3+ Fair+ Abduction 4 Good Adduction 4 Good Comments R Groin pain today limited MMT Left Flexion (L2) 4 Good Abduction 4 Good Adduction 4 Good Knee Strength Knee Manual Muscle Testing Right Flexion (S2) 4 Good Extension (L3) 4 Good Left Flexion (S2) 4 Good Extension (L3) 4 Good PT-OP-Q Treatments Start: 05/17/21 17:35 Freq: Status: Active Protocol: Document 09/23/21 09:53 DC (Rec: 09/23/21 10:29 DC [id number]) Cardio Equipment Recumbent Elliptical (Biodex) Duration (Minutes) 5 Resistance 5 Seat Position 9 Neuro Re-Education Treatment Balance Activities Toe-taps Details Cross body toe-taps on cones Ball pick-up/Toss Details Ball pick-up/toss SLS Details SLS Surface Pascual foam Equipment // bars PT-OP-T Assessment and Plan Start: 05/17/21 17:35 Freq: Status: Active Protocol: Document 09/23/21 09:53 DC (Rec: 09/23/21 10:29 DC [id number]) Physical Therapy Assessment Impairments Impairments Activity Tolerance,Balance, Functional Activities, Functional Mobility,Gait,Pain, Posture,Soft Tissue Mobility, Strength Goals Three Impairment Pt does not have an appropriate home exercise program Short Term Goal (STG) Pt to be independent and compliant with an appropriate HEP STG Duration 10/06/21 - Improving Two Impairment Pt exhibits bilateral weakness in hip abduction Short Term Goal (STG) Pt to increase hip abduction MMT bilaterally to at least 4/ 5 to improve stability and gait STG Duration Met Care Home Goal (LTG) Pt to increase left hip flexion MMT to at least 4/5 to improve stability and gait LTG Duration 12/15/21 One Impairment Pt displays increased falls risk per Yanez and TUG Trading Analyst Goal (LTG) Pt to increase Yanez score by at least 9 points to 45/56 to demonstrate a reduced falls risk. LTG Duration 12/15/21 - Improving Assessment Summary Assessment Pt struggled more today, clearly distracted with more personal and emotional issues today. Physical Therapy Plan Frequency and Duration Frequency of Treatment 2x/Week Duration of Treatment 90 days Plan of Care Start Date 09/06/21 Plan of Care End Date 12/05/21 Therapeutic Interventions Therapeutic Interventions Aquatic Therapy,Balance Training,Gait Training,Home Exercise Program,Joint Mobilizations,Manual Therapy, Neuromuscular Re-education, Patient/Caregiver Education, Self-Care/Home Management,Soft Tissue Mobilization, Therapeutic Activities, Therapeutic Exercises Modalities Cold Pack/Ice Massage,Electric Stimulation,Hot Packs Next Visit Focus/Plan Next Note Type Treatment Note Next Visit Plan LE strengthening, balance training
--- NOTE | 2021-09-29 11:56 | PT.OTN ---
Current Diagnoses Scoliosis, unspecified (09/29/21) Unsteadiness on feet (09/29/21) History of falling (09/29/21) Physical Therapy Treatment Note PT-OP-A Visit Information Start: 05/17/21 17:35 Freq: Status: Active Protocol: Document 09/29/21 11:17 DCW (Rec: 09/29/21 11:55 DCW [id number]) Out-Patient Physical Therapy Visit Information Visit Information Visit Type Treatment Note Visit Start Time 11:17 Visit Stop Time 12:00 Total Visit Minutes 43 Visit Number 19 Number of COREMAKER MACHINE Visits 0 Evaluation Information Evaluation Date 05/17/21 PT-OP-B Current Condition Start: 05/17/21 17:35 Freq: Status: Active Protocol: Document 05/17/21 15:25 DCW (Rec: 05/18/21 10:48 DCW [id number]) Current Condition History of Current Condition Onset Date Multi-year history Current Complaints Decreased balance, recent fall , esteves pain, back pain History of Current Condition Pt is an 86 year old female well known to this clinic presenting with complaints of declining balance, decreased activity tolerance, and leg/ back pain. Pt has undergone multiple rounds of therapy at this clinic for these same complaints, with varying levels of success. Pt notes that she experiences esteves pain fairly frequently, and her back bothers her if she stands longer than one minute.Admits to a fall a few days ago in her garage because she was rushing around, trying to do things too fast. Reports she landed on her back, which hurt at the time, but is now back to normal. Pt is also spending more energy caring for her recently, who has been struggling more with dementia . Pt was last in therapy three months ago, and feels like she has declined quite a bit since then. Treatment Goals Patient/Caregiver Goals Improve balance, activity tolerance, and decrease pain PT-OP-C Subjective Start: 05/17/21 17:35 Freq: Status: Active Protocol: Document 09/29/21 11:17 DCW (Rec: 09/29/21 11:55 DCW [id number]) OP-PT Subjective Patient Comments Patient Comments My shoulder and arm are giving me fits, my legs are swollen, my feet are swollen. I'm just poor to awful. PT-OP-D Balance Start: 05/17/21 17:35 Freq: Status: Active Protocol: Document 09/06/21 11:18 DCW (Rec: 09/06/21 11:43 DCW [id number]) OP-PT Balance Assessment Sitting Balance Static Sitting Balance Ability Good Dynamic Sitting Balance Ability Good Standing Balance Static Standing Balance Ability Fair Dynamic Standing Balance Ability Poor Balance Tests Yanez Balance Test Yanez Balance Test Score 37/56 Yanez Impairment Rating 20 to 39% Impaired (Score 34- 44) Yanez Balance Assessment Evaluation Sitting to Standing Ability Independent w/Hands Unsupported Stance Supervision- 2 minutes Sitting Unsupported, Feet on Floor Safely- 2 minutes Standing to Sitting Ability Safely, Minimal Hand Use Transfer Ability Safely, Hand Use Unsupported Stance- Eyes Closed Supervision, 10 seconds Unsupported Stance- Eyes Open Supervision to maintain Reaching Forward Standing Safely, 2 inches Pick- Up Object From Floor Independent/Safe Look Behind Shoulder - Standing Turns Sideways Only Turning 360 Degrees Turns slowly, but safely Unsupported Stance, Alternating Feet on 2 Steps w/Minimum Assist Stair Unsupported Tandem Stance Small Step- 30 seconds Unilateral Leg Stance Lifts Leg/Unable to Hold Total Score Yanez Total Score (out of 56 points) 37 Yanez Impairment Rating 20 to 39% Impaired (Score 34- 44) Mensah Fall Scale Copyright Permission PT-OP-E Functional Tests Start: 05/17/21 17:35 Freq: Status: Active Protocol: Document 09/06/21 11:18 DCW (Rec: 09/06/21 11:43 DC [id number]) Functional Tests Timed Up and Go (TUG) Score 23.29 /c SPC Comments 3-trial average (22.57, 22.95, 24.36) TUG Impairment Rating 100% Impaired (Score 20) PT-OP-J Posture/Palpation/Skin Start: 05/17/21 17:35 Freq: Status: Active Protocol: Document 09/06/21 11:18 DCW (Rec: 09/06/21 11:43 DCW [id number]) Posture Evaluation Position Standing Evaluation View Posterior Head/C-Spine Posture Forward Head T-Spine Posture Fixed Scoliosis on (R), Increased Kyphosis L-Spine Posture Flattened,Fixed Scoliosis on ( L) PT-OP-M Strength Start: 05/17/21 17:35 Freq: Status: Active Protocol: Document 09/06/21 11:18 DCW (Rec: 09/06/21 11:43 DCW [id number]) Hip Strength Hip Manual Muscle Testing Right Flexion (L2) 3+ Fair+ Abduction 4 Good Adduction 4 Good Comments R Groin pain today limited MMT Left Flexion (L2) 4 Good Abduction 4 Good Adduction 4 Good Knee Strength Knee Manual Muscle Testing Right Flexion (S2) 4 Good Extension (L3) 4 Good Left Flexion (S2) 4 Good Extension (L3) 4 Good PT-OP-Q Treatments Start: 05/17/21 17:35 Freq: Status: Active Protocol: Document 09/29/21 11:17 DCW (Rec: 09/29/21 11:55 DCW [id number]) Cardio Equipment Recumbent Stepper (Sci-Fit) Duration (Minutes) 5 Resistance 2.5 Seat Position 9 Gym Equipment Shuttle Balance Red Details WBOS (EO/EC), Staggered Stance Comments Min A, wt shifting/ stationary Neuro Re-Education Treatment Balance Activities NBOS Details NBOS Limits of stability, cone movements Toe-taps Details Cross body toe-taps on cones Ball pick-up/Toss Details Ball pick-up/toss SLS Details SLS Surface Pascual foam Equipment // bars PT-OP-T Assessment and Plan Start: 05/17/21 17:35 Freq: Status: Active Protocol: Document 09/29/21 11:17 DCW (Rec: 09/29/21 11:55 [facility] [id number]) Physical Therapy Assessment Impairments Impairments Activity Tolerance,Balance, Functional Activities, Functional Mobility,Gait,Pain, Posture,Soft Tissue Mobility, Strength Goals Three Impairment Pt does not have an appropriate home exercise program Short Term Goal (STG) Pt to be independent and compliant with an appropriate HEP STG Duration 10/06/21 - Improving Two Impairment Pt exhibits bilateral weakness in hip abduction Short Term Goal (STG) Pt to increase hip abduction MMT bilaterally to at least 4/ 5 to improve stability and gait STG Duration Met Hog Cooler Goal (LTG) Pt to increase left hip flexion MMT to at least 4/5 to improve stability and gait LTG Duration 12/15/21 One Impairment Pt displays increased falls risk per Yanez and TUG Hog Cooler Goal (LTG) Pt to increase Yanez score by at least 9 points to 45/56 to demonstrate a reduced falls risk. LTG Duration 12/15/21 - Improving Assessment Summary Assessment Pt doing better today than last week, still stressed about her . Pt showing significant LE edema today. Physical Therapy Plan Frequency and Duration Frequency of Treatment 2x/Week Duration of Treatment 90 days Plan of Care Start Date 09/06/21 Plan of Care End Date 12/05/21 Therapeutic Interventions Therapeutic Interventions Aquatic Therapy,Balance Training,Gait Training,Home Exercise Program,Joint Mobilizations,Manual Therapy, Neuromuscular Re-education, Patient/Caregiver Education, Self-Care/Home Management,Soft Tissue Mobilization, Therapeutic Activities, Therapeutic Exercises Modalities Cold Pack/Ice Massage,Electric Stimulation,Hot Packs Next Visit Focus/Plan Next Note Type Treatment Note Next Visit Plan LE strengthening, balance training
--- NOTE | 2021-10-11 17:31 | PT.OTN ---
Current Diagnoses Scoliosis, unspecified (10/11/21) Unsteadiness on feet (10/11/21) History of falling (10/11/21) Physical Therapy Treatment Note PT-OP-A Visit Information Start: 05/17/21 17:35 Freq: Status: Active Protocol: Document 10/11/21 16:45 DCW (Rec: 10/11/21 17:31 DCW [id number]) Out-Patient Physical Therapy Visit Information Visit Information Visit Type Treatment Note Visit Start Time 16:45 Visit Stop Time 17:30 Total Visit Minutes 45 Visit Number 20 Number of ORACLE APPLICATION ARCHITECT Visits 0 Evaluation Information Evaluation Date 05/17/21 PT-OP-B Current Condition Start: 05/17/21 17:35 Freq: Status: Active Protocol: Document 05/17/21 15:25 DCW (Rec: 05/18/21 10:48 DCW [id number]) Current Condition History of Current Condition Onset Date Multi-year history Current Complaints Decreased balance, recent fall , esteves pain, back pain History of Current Condition Pt is an 86 year old female well known to this clinic presenting with complaints of declining balance, decreased activity tolerance, and leg/ back pain. Pt has undergone multiple rounds of therapy at this clinic for these same complaints, with varying levels of success. Pt notes that she experiences esteves pain fairly frequently, and her back bothers her if she stands longer than one minute.Admits to a fall a few days ago in her garage because she was rushing around, trying to do things too fast. Reports she landed on her back, which hurt at the time, but is now back to normal. Pt is also spending more energy caring for her recently, who has been struggling more with dementia . Pt was last in therapy three months ago, and feels like she has declined quite a bit since then. Treatment Goals Patient/Caregiver Goals Improve balance, activity tolerance, and decrease pain PT-OP-C Subjective Start: 05/17/21 17:35 Freq: Status: Active Protocol: Document 10/11/21 16:45 DCW (Rec: 10/11/21 17:31 DCW [id number]) OP-PT Subjective Patient Comments Patient Comments Other than my legs swelling up, physically I'm doing alright. Mentally though, not so much. PT-OP-D Balance Start: 05/17/21 17:35 Freq: Status: Active Protocol: Document 09/06/21 11:18 DCW (Rec: 09/06/21 11:43 DCW [id number]) OP-PT Balance Assessment Sitting Balance Static Sitting Balance Ability Good Dynamic Sitting Balance Ability Good Standing Balance Static Standing Balance Ability Fair Dynamic Standing Balance Ability Poor Balance Tests Yanez Balance Test Yanez Balance Test Score 37/56 Yanez Impairment Rating 20 to 39% Impaired (Score 34- 44) Yanez Balance Assessment Evaluation Sitting to Standing Ability Independent w/Hands Unsupported Stance Supervision- 2 minutes Sitting Unsupported, Feet on Floor Safely- 2 minutes Standing to Sitting Ability Safely, Minimal Hand Use Transfer Ability Safely, Hand Use Unsupported Stance- Eyes Closed Supervision, 10 seconds Unsupported Stance- Eyes Open Supervision to maintain Reaching Forward Standing Safely, 2 inches Pick- Up Object From Floor Independent/Safe Look Behind Shoulder - Standing Turns Sideways Only Turning 360 Degrees Turns slowly, but safely Unsupported Stance, Alternating Feet on 2 Steps w/Minimum Assist Stair Unsupported Tandem Stance Small Step- 30 seconds Unilateral Leg Stance Lifts Leg/Unable to Hold Total Score Yanez Total Score (out of 56 points) 37 Yanez Impairment Rating 20 to 39% Impaired (Score 34- 44) Mensah Fall Scale Copyright Permission PT-OP-E Functional Tests Start: 05/17/21 17:35 Freq: Status: Active Protocol: Document 09/06/21 11:18 DCW (Rec: 09/06/21 11:43 DCW [id number]) Functional Tests Timed Up and Go (TUG) Score 23.29 /c SPC Comments 3-trial average (22.57, 22.95, 24.36) TUG Impairment Rating 100% Impaired (Score 20) PT-OP-J Posture/Palpation/Skin Start: 05/17/21 17:35 Freq: Status: Active Protocol: Document 09/06/21 11:18 DCW (Rec: 09/06/21 11:43 DCW [id number]) Posture Evaluation Position Standing Evaluation View Posterior Head/C-Spine Posture Forward Head T-Spine Posture Fixed Scoliosis on (R), Increased Kyphosis L-Spine Posture Flattened,Fixed Scoliosis on ( L) PT-OP-M Strength Start: 05/17/21 17:35 Freq: Status: Active Protocol: Document 09/06/21 11:18 DCW (Rec: 09/06/21 11:43 DCW [id number]) Hip Strength Hip Manual Muscle Testing Right Flexion (L2) 3+ Fair+ Abduction 4 Good Adduction 4 Good Comments R Groin pain today limited MMT Left Flexion (L2) 4 Good Abduction 4 Good Adduction 4 Good Knee Strength Knee Manual Muscle Testing Right Flexion (S2) 4 Good Extension (L3) 4 Good Left Flexion (S2) 4 Good Extension (L3) 4 Good PT-OP-Q Treatments Start: 05/17/21 17:35 Freq: Status: Active Protocol: Document 10/11/21 16:45 DCW (Rec: 10/11/21 17:31 DCW [id number]) Cardio Equipment Recumbent Elliptical (Biodex) Duration (Minutes) 5 Resistance 5 Seat Position 9 Gym Equipment Shuttle Balance Red Details WBOS (EO/EC), Staggered Stance Comments Min A, wt shifting/ stationary Neuro Re-Education Treatment Balance Activities NBOS Details NBOS Limits of stability, cone movements Toe-taps Details Cross body toe-taps on cones Ball pick-up/Toss Details Ball pick-up/toss Hurdles Details Hurdles Equipment 5# Comments Forward, side-stepping Foam Stance Details EO/EC Surface Blue Foam PT-OP-T Assessment and Plan Start: 05/17/21 17:35 Freq: Status: Active Protocol: Document 10/11/21 16:45 DCW (Rec: 10/11/21 17:31 DCW [id number]) Physical Therapy Assessment Impairments Impairments Activity Tolerance,Balance, Functional Activities, Functional Mobility,Gait,Pain, Posture,Soft Tissue Mobility, Strength Goals Three Impairment Pt does not have an appropriate home exercise program Short Term Goal (STG) Pt to be independent and compliant with an appropriate HEP STG Duration 10/06/21 - Improving Two Impairment Pt exhibits bilateral weakness in hip abduction Short Term Goal (STG) Pt to increase hip abduction MMT bilaterally to at least 4/ 5 to improve stability and gait STG Duration Met Custodial Goal (LTG) Pt to increase left hip flexion MMT to at least 4/5 to improve stability and gait LTG Duration 12/15/21 One Impairment Pt displays increased falls risk per Yanez and TUG Principal Statistical Scientist Goal (LTG) Pt to increase Yanez score by at least 9 points to 45/56 to demonstrate a reduced falls risk. LTG Duration 12/15/21 - Improving Assessment Summary Assessment LE edema still affecting pt's mobility, but did much better than usual with hurdles. Physical Therapy Plan Frequency and Duration Frequency of Treatment 2x/Week Duration of Treatment 90 days Plan of Care Start Date 09/06/21 Plan of Care End Date 12/05/21 Therapeutic Interventions Therapeutic Interventions Aquatic Therapy,Balance Training,Gait Training,Home Exercise Program,Joint Mobilizations,Manual Therapy, Neuromuscular Re-education, Patient/Caregiver Education, Self-Care/Home Management,Soft Tissue Mobilization, Therapeutic Activities, Therapeutic Exercises Modalities Cold Pack/Ice Massage,Electric Stimulation,Hot Packs Next Visit Focus/Plan Next Note Type Treatment Note Next Visit Plan LE strengthening, balance training
--- NOTE | 2021-11-02 11:18 | PT.OTN ---
Current Diagnoses Scoliosis, unspecified (11/02/21) Unsteadiness on feet (11/02/21) History of falling (11/02/21) Physical Therapy Treatment Note PT-OP-A Visit Information Start: 05/17/21 17:35 Freq: Status: Active Protocol: Document 11/02/21 10:40 DCW (Rec: 11/02/21 11:18 DCW [id number]) Out-Patient Physical Therapy Visit Information Visit Information Visit Type Treatment Note Visit Start Time 10:40 Visit Stop Time 11:20 Total Visit Minutes 40 Visit Number 21 Number of CODE MACHINE OPERATOR Visits 0 Evaluation Information Evaluation Date 05/17/21 PT-OP-B Current Condition Start: 05/17/21 17:35 Freq: Status: Active Protocol: Document 05/17/21 15:25 DCW (Rec: 05/18/21 10:48 DCW [id number]) Current Condition History of Current Condition Onset Date Multi-year history Current Complaints Decreased balance, recent fall , esteves pain, back pain History of Current Condition Pt is an 86 year old female well known to this clinic presenting with complaints of declining balance, decreased activity tolerance, and leg/ back pain. Pt has undergone multiple rounds of therapy at this clinic for these same complaints, with varying levels of success. Pt notes that she experiences esteves pain fairly frequently, and her back bothers her if she stands longer than one minute.Admits to a fall a few days ago in her garage because she was rushing around, trying to do things too fast. Reports she landed on her back, which hurt at the time, but is now back to normal. Pt is also spending more energy caring for her recently, who has been struggling more with dementia . Pt was last in therapy three months ago, and feels like she has declined quite a bit since then. Treatment Goals Patient/Caregiver Goals Improve balance, activity tolerance, and decrease pain PT-OP-C Subjective Start: 05/17/21 17:35 Freq: Status: Active Protocol: Document 11/02/21 10:40 DCW (Rec: 11/02/21 11:18 DCW [id number]) OP-PT Subjective Patient Comments Patient Comments My left shoulder is bothering me, but they don't want me to come in and get it checked out until after my back appointment next week. PT-OP-D Balance Start: 05/17/21 17:35 Freq: Status: Active Protocol: Document 09/06/21 11:18 DCW (Rec: 09/06/21 11:43 DCW [id number]) OP-PT Balance Assessment Sitting Balance Static Sitting Balance Ability Good Dynamic Sitting Balance Ability Good Standing Balance Static Standing Balance Ability Fair Dynamic Standing Balance Ability Poor Balance Tests Yanez Balance Test Yanez Balance Test Score 37/56 Yanez Impairment Rating 20 to 39% Impaired (Score 34- 44) Yanez Balance Assessment Evaluation Sitting to Standing Ability Independent w/Hands Unsupported Stance Supervision- 2 minutes Sitting Unsupported, Feet on Floor Safely- 2 minutes Standing to Sitting Ability Safely, Minimal Hand Use Transfer Ability Safely, Hand Use Unsupported Stance- Eyes Closed Supervision, 10 seconds Unsupported Stance- Eyes Open Supervision to maintain Reaching Forward Standing Safely, 2 inches Pick- Up Object From Floor Independent/Safe Look Behind Shoulder - Standing Turns Sideways Only Turning 360 Degrees Turns slowly, but safely Unsupported Stance, Alternating Feet on 2 Steps w/Minimum Assist Stair Unsupported Tandem Stance Small Step- 30 seconds Unilateral Leg Stance Lifts Leg/Unable to Hold Total Score Yanez Total Score (out of 56 points) 37 Yanez Impairment Rating 20 to 39% Impaired (Score 34- 44) Mensah Fall Scale Copyright Permission PT-OP-E Functional Tests Start: 05/17/21 17:35 Freq: Status: Active Protocol: Document 09/06/21 11:18 DCW (Rec: 09/06/21 11:43 DC [id number]) Functional Tests Timed Up and Go (TUG) Score 23.29 /c SPC Comments 3-trial average (22.57, 22.95, 24.36) TUG Impairment Rating 100% Impaired (Score 20) PT-OP-J Posture/Palpation/Skin Start: 05/17/21 17:35 Freq: Status: Active Protocol: Document 09/06/21 11:18 DCW (Rec: 09/06/21 11:43 DCW [id number]) Posture Evaluation Position Standing Evaluation View Posterior Head/C-Spine Posture Forward Head T-Spine Posture Fixed Scoliosis on (R), Increased Kyphosis L-Spine Posture Flattened,Fixed Scoliosis on ( L) PT-OP-M Strength Start: 05/17/21 17:35 Freq: Status: Active Protocol: Document 09/06/21 11:18 DCW (Rec: 06/07/22 11:43 DCW [id number]) Hip Strength Hip Manual Muscle Testing Right Flexion (L2) 3+ Fair+ Abduction 4 Good Adduction 4 Good Comments R Groin pain today limited MMT Left Flexion (L2) 4 Good Abduction 4 Good Adduction 4 Good Knee Strength Knee Manual Muscle Testing Right Flexion (S2) 4 Good Extension (L3) 4 Good Left Flexion (S2) 4 Good Extension (L3) 4 Good PT-OP-Q Treatments Start: 05/17/21 17:35 Freq: Status: Active Protocol: Document 11/02/21 10:40 DCW (Rec: 11/02/21 11:18 DCW [id number]) Cardio Equipment Recumbent Stepper (Sci-Fit) Duration (Minutes) 5 Resistance 2.5 Seat Position 9 Gym Equipment Shuttle Balance Red Details WBOS (EO/EC), Staggered Stance Comments Min A, wt shifting/ stationary Neuro Re-Education Treatment Balance Activities Toe-taps Details Cross body toe-taps on cones Ball pick-up/Toss Details Ball pick-up/toss SLS Details SLS Surface Pascual foam Equipment // bars Tandem Stance Details Tandem Stance Equipment // bars Foam Stance Details EO/EC Surface Blue Foam PT-OP-T Assessment and Plan Start: 05/17/21 17:35 Freq: Status: Active Protocol: Document 11/02/21 10:40 DCW (Rec: 11/02/21 11:18 DCW [id number]) Physical Therapy Assessment Impairments Impairments Activity Tolerance,Balance, Functional Activities, Functional Mobility,Gait,Pain, Posture,Soft Tissue Mobility, Strength Goals Three Impairment Pt does not have an appropriate home exercise program Short Term Goal (STG) Pt to be independent and compliant with an appropriate HEP STG Duration 10/06/21 - Improving Two Impairment Pt exhibits bilateral weakness in hip abduction Short Term Goal (STG) Pt to increase hip abduction MMT bilaterally to at least 4/ 5 to improve stability and gait STG Duration Met Offbearer Goal (LTG) Pt to increase left hip flexion MMT to at least 4/5 to improve stability and gait LTG Duration 12/15/21 One Impairment Pt displays increased falls risk per Yanez and TUG Offbearer Goal (LTG) Pt to increase Yanez score by at least 9 points to 45/56 to demonstrate a reduced falls risk. LTG Duration 12/15/21 - Improving Assessment Summary Assessment Pt showing decreased LE edema today, tolerated treatment well. Physical Therapy Plan Frequency and Duration Frequency of Treatment 2x/Week Duration of Treatment 90 days Plan of Care Start Date 09/06/21 Plan of Care End Date 12/05/21 Therapeutic Interventions Therapeutic Interventions Aquatic Therapy,Balance Training,Gait Training,Home Exercise Program,Joint Mobilizations,Manual Therapy, Neuromuscular Re-education, Patient/Caregiver Education, Self-Care/Home Management,Soft Tissue Mobilization, Therapeutic Activities, Therapeutic Exercises Modalities Cold Pack/Ice Massage,Electric Stimulation,Hot Packs Next Visit Focus/Plan Next Note Type Treatment Note Next Visit Plan LE strengthening, balance training
--- NOTE | 2021-11-04 11:13 | PT.OTN ---
Current Diagnoses Scoliosis, unspecified (11/04/21) Unsteadiness on feet (11/04/21) History of falling (11/04/21) Physical Therapy Treatment Note PT-OP-A Visit Information Start: 05/17/21 17:35 Freq: Status: Active Protocol: Document 11/04/21 10:30 DCW (Rec: 11/04/21 11:13 DCW [id number]) Out-Patient Physical Therapy Visit Information Visit Information Visit Type Treatment Note Visit Start Time 10:30 Visit Stop Time 11:15 Total Visit Minutes 45 Visit Number 22 Number of TELEGRAPH OFFICE MANAGER Visits 0 Evaluation Information Evaluation Date 05/17/21 PT-OP-B Current Condition Start: 05/17/21 17:35 Freq: Status: Active Protocol: Document 05/17/21 15:25 DCW (Rec: 05/18/21 10:48 DCW [id number]) Current Condition History of Current Condition Onset Date Multi-year history Current Complaints Decreased balance, recent fall , esteves pain, back pain History of Current Condition Pt is an 86 year old female well known to this clinic presenting with complaints of declining balance, decreased activity tolerance, and leg/ back pain. Pt has undergone multiple rounds of therapy at this clinic for these same complaints, with varying levels of success. Pt notes that she experiences esteves pain fairly frequently, and her back bothers her if she stands longer than one minute.Admits to a fall a few days ago in her garage because she was rushing around, trying to do things too fast. Reports she landed on her back, which hurt at the time, but is now back to normal. Pt is also spending more energy caring for her recently, who has been struggling more with dementia . Pt was last in therapy three months ago, and feels like she has declined quite a bit since then. Treatment Goals Patient/Caregiver Goals Improve balance, activity tolerance, and decrease pain PT-OP-C Subjective Start: 05/17/21 17:35 Freq: Status: Active Protocol: Document 11/04/21 10:30 DCW (Rec: 11/04/21 11:13 DCW [id number]) OP-PT Subjective Patient Comments Patient Comments I'm stiff, sore, tired, etc, etc. PT-OP-D Balance Start: 05/17/21 17:35 Freq: Status: Active Protocol: Document 09/06/21 11:18 DCW (Rec: 09/06/21 11:43 DC [id number]) OP-PT Balance Assessment Sitting Balance Static Sitting Balance Ability Good Dynamic Sitting Balance Ability Good Standing Balance Static Standing Balance Ability Fair Dynamic Standing Balance Ability Poor Balance Tests Yanez Balance Test Yanez Balance Test Score 37/56 Yanez Impairment Rating 20 to 39% Impaired (Score 34- 44) Yanez Balance Assessment Evaluation Sitting to Standing Ability Independent w/Hands Unsupported Stance Supervision- 2 minutes Sitting Unsupported, Feet on Floor Safely- 2 minutes Standing to Sitting Ability Safely, Minimal Hand Use Transfer Ability Safely, Hand Use Unsupported Stance- Eyes Closed Supervision, 10 seconds Unsupported Stance- Eyes Open Supervision to maintain Reaching Forward Standing Safely, 2 inches Pick- Up Object From Floor Independent/Safe Look Behind Shoulder - Standing Turns Sideways Only Turning 360 Degrees Turns slowly, but safely Unsupported Stance, Alternating Feet on 2 Steps w/Minimum Assist Stair Unsupported Tandem Stance Small Step- 30 seconds Unilateral Leg Stance Lifts Leg/Unable to Hold Total Score Yanez Total Score (out of 56 points) 37 Yanez Impairment Rating 20 to 39% Impaired (Score 34- 44) Mensah Fall Scale Copyright Permission PT-OP-E Functional Tests Start: 05/17/21 17:35 Freq: Status: Active Protocol: Document 09/06/21 11:18 DCW (Rec: 09/06/21 11:43 [facility] [id number]) Functional Tests Timed Up and Go (TUG) Score 23.29 /c SPC Comments 3-trial average (22.57, 22.95, 24.36) TUG Impairment Rating 100% Impaired (Score 20) PT-OP-J Posture/Palpation/Skin Start: 05/17/21 17:35 Freq: Status: Active Protocol: Document 09/06/21 11:18 DCW (Rec: 09/06/21 11:43 [facility] [id number]) Posture Evaluation Position Standing Evaluation View Posterior Head/C-Spine Posture Forward Head T-Spine Posture Fixed Scoliosis on (R), Increased Kyphosis L-Spine Posture Flattened,Fixed Scoliosis on ( L) PT-OP-M Strength Start: 05/17/21 17:35 Freq: Status: Active Protocol: Document 09/06/21 11:18 DCW (Rec: 09/06/21 11:43 [facility] [id number]) Hip Strength Hip Manual Muscle Testing Right Flexion (L2) 3+ Fair+ Abduction 4 Good Adduction 4 Good Comments R Groin pain today limited MMT Left Flexion (L2) 4 Good Abduction 4 Good Adduction 4 Good Knee Strength Knee Manual Muscle Testing Right Flexion (S2) 4 Good Extension (L3) 4 Good Left Flexion (S2) 4 Good Extension (L3) 4 Good PT-OP-Q Treatments Start: 05/17/21 17:35 Freq: Status: Active Protocol: Document 11/04/21 10:30 DCW (Rec: 11/04/21 11:13 CTW [id number]) Cardio Equipment Recumbent Elliptical (Biodex) Duration (Minutes) 5 Resistance 5 Seat Position 9 Gym Equipment Shuttle Balance Red Details WBOS (EO/EC), Staggered Stance Comments Min A, wt shifting/ stationary Neuro Re-Education Treatment Balance Activities Toe-taps Details Cross body toe-taps on cones Ball pick-up/Toss Details Ball pick-up/toss Hurdles Details Hurdles Equipment 5# Comments Forward, side-stepping SLS Details SLS Surface Pascual foam Equipment // bars Tandem Stance Details Tandem Stance Equipment // bars PT-OP-T Assessment and Plan Start: 05/17/21 17:35 Freq: Status: Active Protocol: Document 11/04/21 10:30 DCW (Rec: 11/04/21 11:13 DCW [id number]) Physical Therapy Assessment Impairments Impairments Activity Tolerance,Balance, Functional Activities, Functional Mobility,Gait,Pain, Posture,Soft Tissue Mobility, Strength Goals Three Impairment Pt does not have an appropriate home exercise program Short Term Goal (STG) Pt to be independent and compliant with an appropriate HEP STG Duration 10/06/21 - Improving Two Impairment Pt exhibits bilateral weakness in hip abduction Short Term Goal (STG) Pt to increase hip abduction MMT bilaterally to at least 4/ 5 to improve stability and gait STG Duration Met Detention Goal (LTG) Pt to increase left hip flexion MMT to at least 4/5 to improve stability and gait LTG Duration 12/15/21 One Impairment Pt displays increased falls risk per Yanez and TUG Detention Goal (LTG) Pt to increase Yanez score by at least 9 points to 45/56 to demonstrate a reduced falls risk. LTG Duration 12/15/21 - Improving Assessment Summary Assessment Pt did well with tandem stance and SLS today, improving balance and gait overall. Physical Therapy Plan Frequency and Duration Frequency of Treatment 2x/Week Duration of Treatment 90 days Plan of Care Start Date 09/06/21 Plan of Care End Date 12/05/21 Therapeutic Interventions Therapeutic Interventions Aquatic Therapy,Balance Training,Gait Training,Home Exercise Program,Joint Mobilizations,Manual Therapy, Neuromuscular Re-education, Patient/Caregiver Education, Self-Care/Home Management,Soft Tissue Mobilization, Therapeutic Activities, Therapeutic Exercises Modalities Cold Pack/Ice Massage,Electric Stimulation,Hot Packs Next Visit Focus/Plan Next Note Type Treatment Note Next Visit Plan LE strengthening, balance training
--- NOTE | 2021-11-08 11:14 | PT.OTN ---
Current Diagnoses Scoliosis, unspecified (11/08/21) Unsteadiness on feet (11/08/21) History of falling (11/08/21) Physical Therapy Treatment Note PT-OP-A Visit Information Start: 05/17/21 17:35 Freq: Status: Active Protocol: Document 11/08/21 10:35 DCW (Rec: 11/08/21 11:14 DCW [id number]) Out-Patient Physical Therapy Visit Information Visit Information Visit Type Treatment Note Visit Start Time 10:35 Visit Stop Time 11:15 Total Visit Minutes 40 Visit Number [address] DRIVER Visits 0 Evaluation Information Evaluation Date 05/17/21 PT-OP-B Current Condition Start: 05/17/21 17:35 Freq: Status: Active Protocol: Document 05/17/21 15:25 DCW (Rec: 05/18/21 10:48 DCW [id number]) Current Condition History of Current Condition Onset Date Multi-year history Current Complaints Decreased balance, recent fall , esteves pain, back pain History of Current Condition Pt is an 86 year old female well known to this clinic presenting with complaints of declining balance, decreased activity tolerance, and leg/ back pain. Pt has undergone multiple rounds of therapy at this clinic for these same complaints, with varying levels of success. Pt notes that she experiences esteves pain fairly frequently, and her back bothers her if she stands longer than one minute.Admits to a fall a few days ago in her garage because she was rushing around, trying to do things too fast. Reports she landed on her back, which hurt at the time, but is now back to normal. Pt is also spending more energy caring for her recently, who has been struggling more with dementia . Pt was last in therapy three months ago, and feels like she has declined quite a bit since then. Treatment Goals Patient/Caregiver Goals Improve balance, activity tolerance, and decrease pain PT-OP-C Subjective Start: 05/17/21 17:35 Freq: Status: Active Protocol: Document 11/08/21 10:35 DCW (Rec: 11/08/21 11:14 DCW [id number]) OP-PT Subjective Patient Comments Patient Comments I've been needing the bathroom every 20 minutes, so I don't know if this is going to work this morning. PT-OP-D Balance Start: 05/17/21 17:35 Freq: Status: Active Protocol: Document 09/06/21 11:18 DCW (Rec: 09/06/21 11:43 DCW [id number]) OP-PT Balance Assessment Sitting Balance Static Sitting Balance Ability Good Dynamic Sitting Balance Ability Good Standing Balance Static Standing Balance Ability Fair Dynamic Standing Balance Ability Poor Balance Tests Yanez Balance Test Yanez Balance Test Score 37/56 Yanez Impairment Rating 20 to 39% Impaired (Score 34- 44) Yanez Balance Assessment Evaluation Sitting to Standing Ability Independent w/Hands Unsupported Stance Supervision- 2 minutes Sitting Unsupported, Feet on Floor Safely- 2 minutes Standing to Sitting Ability Safely, Minimal Hand Use Transfer Ability Safely, Hand Use Unsupported Stance- Eyes Closed Supervision, 10 seconds Unsupported Stance- Eyes Open Supervision to maintain Reaching Forward Standing Safely, 2 inches Pick- Up Object From Floor Independent/Safe Look Behind Shoulder - Standing Turns Sideways Only Turning 360 Degrees Turns slowly, but safely Unsupported Stance, Alternating Feet on 2 Steps w/Minimum Assist Stair Unsupported Tandem Stance Small Step- 30 seconds Unilateral Leg Stance Lifts Leg/Unable to Hold Total Score Yanez Total Score (out of 56 points) 37 Yanez Impairment Rating 20 to 39% Impaired (Score 34- 44) Mensah Fall Scale Copyright Permission PT-OP-E Functional Tests Start: 05/17/21 17:35 Freq: Status: Active Protocol: Document 09/06/21 11:18 DCW (Rec: 09/06/21 11:43 DC [id number]) Functional Tests Timed Up and Go (TUG) Score 23.29 /c SPC Comments 3-trial average (22.57, 22.95, 24.36) TUG Impairment Rating 100% Impaired (Score 20) PT-OP-J Posture/Palpation/Skin Start: 05/17/21 17:35 Freq: Status: Active Protocol: Document 09/06/21 11:18 DCW (Rec: 09/06/21 11:43 DCW [id number]) Posture Evaluation Position Standing Evaluation View Posterior Head/C-Spine Posture Forward Head T-Spine Posture Fixed Scoliosis on (R), Increased Kyphosis L-Spine Posture Flattened,Fixed Scoliosis on ( L) PT-OP-M Strength Start: 05/17/21 17:35 Freq: Status: Active Protocol: Document 09/06/21 11:18 DCW (Rec: 09/06/21 11:43 DCW [id number]) Hip Strength Hip Manual Muscle Testing Right Flexion (L2) 3+ Fair+ Abduction 4 Good Adduction 4 Good Comments R Groin pain today limited MMT Left Flexion (L2) 4 Good Abduction 4 Good Adduction 4 Good Knee Strength Knee Manual Muscle Testing Right Flexion (S2) 4 Good Extension (L3) 4 Good Left Flexion (S2) 4 Good Extension (L3) 4 Good PT-OP-Q Treatments Start: 05/17/21 17:35 Freq: Status: Active Protocol: Document 11/08/21 10:35 DCW (Rec: 11/08/21 11:14 [facility] [id number]) Cardio Equipment Recumbent Elliptical (Biodex) Duration (Minutes) 5 Resistance 5 Seat Position 9 Gym Equipment Shuttle Balance Red Details WBOS (EO/EC), Staggered Stance Comments Min A, wt shifting/ stationary Neuro Re-Education Treatment Balance Activities Toe-taps Details Cross body toe-taps on cones Ball pick-up/Toss Details Ball pick-up/toss Hurdles Details Hurdles Equipment 5# Comments Forward, side-stepping SLS Details SLS Surface Pascual foam Equipment // bars Foam Stance Details EO/EC Surface Blue Foam PT-OP-T Assessment and Plan Start: 05/17/21 17:35 Freq: Status: Active Protocol: Document 11/08/21 10:35 DCW (Rec: 11/08/21 11:14 [facility] [id number]) Physical Therapy Assessment Impairments Impairments Activity Tolerance,Balance, Functional Activities, Functional Mobility,Gait,Pain, Posture,Soft Tissue Mobility, Strength Goals Three Impairment Pt does not have an appropriate home exercise program Short Term Goal (STG) Pt to be independent and compliant with an appropriate HEP STG Duration 10/06/21 - Improving Two Impairment Pt exhibits bilateral weakness in hip abduction Short Term Goal (STG) Pt to increase hip abduction MMT bilaterally to at least 4/ 5 to improve stability and gait STG Duration Met Card Decorator Goal (LTG) Pt to increase left hip flexion MMT to at least 4/5 to improve stability and gait LTG Duration 12/15/21 One Impairment Pt displays increased falls risk per Yanez and TUG Group Home Goal (LTG) Pt to increase Yanez score by at least 9 points to 45/56 to demonstrate a reduced falls risk. LTG Duration 12/15/21 - Improving Assessment Summary Assessment Pt continues to make slight improvements overall, SLS appears to be doing well recently. Physical Therapy Plan Frequency and Duration Frequency of Treatment 2x/Week Duration of Treatment 90 days Plan of Care Start Date 09/06/21 Plan of Care End Date 12/05/21 Therapeutic Interventions Therapeutic Interventions Aquatic Therapy,Balance Training,Gait Training,Home Exercise Program,Joint Mobilizations,Manual Therapy, Neuromuscular Re-education, Patient/Caregiver Education, Self-Care/Home Management,Soft Tissue Mobilization, Therapeutic Activities, Therapeutic Exercises Modalities Cold Pack/Ice Massage,Electric Stimulation,Hot Packs Next Visit Focus/Plan Next Note Type Treatment Note Next Visit Plan LE strengthening, balance training
--- NOTE | 2021-11-10 13:41 | PT.OTN ---
Current Diagnoses Scoliosis, unspecified (11/10/21) Unsteadiness on feet (11/10/21) History of falling (11/10/21) Physical Therapy Treatment Note PT-OP-A Visit Information Start: 05/17/21 17:35 Freq: Status: Active Protocol: Document 11/10/21 12:00 DCW (Rec: 11/10/21 13:40 DCW [id number]) Out-Patient Physical Therapy Visit Information Visit Information Visit Type Treatment Note Visit Start Time 12:00 Visit Stop Time 12:45 Total Visit Minutes 45 Visit Number 24 Number of BUILDING ENERGY CONSULTANT Visits 0 Evaluation Information Evaluation Date 05/17/21 PT-OP-B Current Condition Start: 05/17/21 17:35 Freq: Status: Active Protocol: Document 05/17/21 15:25 DCW (Rec: 05/18/21 10:48 DCW [id number]) Current Condition History of Current Condition Onset Date Multi-year history Current Complaints Decreased balance, recent fall , esteves pain, back pain History of Current Condition Pt is an 86 year old female well known to this clinic presenting with complaints of declining balance, decreased activity tolerance, and leg/ back pain. Pt has undergone multiple rounds of therapy at this clinic for these same complaints, with varying levels of success. Pt notes that she experiences esteves pain fairly frequently, and her back bothers her if she stands longer than one minute.Admits to a fall a few days ago in her garage because she was rushing around, trying to do things too fast. Reports she landed on her back, which hurt at the time, but is now back to normal. Pt is also spending more energy caring for her recently, who has been struggling more with dementia . Pt was last in therapy three months ago, and feels like she has declined quite a bit since then. Treatment Goals Patient/Caregiver Goals Improve balance, activity tolerance, and decrease pain PT-OP-C Subjective Start: 05/17/21 17:35 Freq: Status: Active Protocol: Document 11/10/21 12:00 DCW (Rec: 11/10/21 13:40 DCW [id number]) OP-PT Subjective Patient Comments Patient Comments Pt struggling more with personal issues recently, specifically the declining function of her . PT-OP-D Balance Start: 05/17/21 17:35 Freq: Status: Active Protocol: Document 09/06/21 11:18 DCW (Rec: 09/06/21 11:43 DCW [id number]) OP-PT Balance Assessment Sitting Balance Static Sitting Balance Ability Good Dynamic Sitting Balance Ability Good Standing Balance Static Standing Balance Ability Fair Dynamic Standing Balance Ability Poor Balance Tests Yanez Balance Test Yanez Balance Test Score 37/56 Yanez Impairment Rating 20 to 39% Impaired (Score 34- 44) Yanez Balance Assessment Evaluation Sitting to Standing Ability Independent w/Hands Unsupported Stance Supervision- 2 minutes Sitting Unsupported, Feet on Floor Safely- 2 minutes Standing to Sitting Ability Safely, Minimal Hand Use Transfer Ability Safely, Hand Use Unsupported Stance- Eyes Closed Supervision, 10 seconds Unsupported Stance- Eyes Open Supervision to maintain Reaching Forward Standing Safely, 2 inches Pick- Up Object From Floor Independent/Safe Look Behind Shoulder - Standing Turns Sideways Only Turning 360 Degrees Turns slowly, but safely Unsupported Stance, Alternating Feet on 2 Steps w/Minimum Assist Stair Unsupported Tandem Stance Small Step- 30 seconds Unilateral Leg Stance Lifts Leg/Unable to Hold Total Score Yanez Total Score (out of 56 points) 37 Yanez Impairment Rating 20 to 39% Impaired (Score 34- 44) Mensah Fall Scale Copyright Permission PT-OP-E Functional Tests Start: 05/17/21 17:35 Freq: Status: Active Protocol: Document 09/06/21 11:18 DCW (Rec: 09/06/21 11:43 [facility] [id number]) Functional Tests Timed Up and Go (TUG) Score 23.29 /c SPC Comments 3-trial average (22.57, 22.95, 24.36) TUG Impairment Rating 100% Impaired (Score 20) PT-OP-J Posture/Palpation/Skin Start: 05/17/21 17:35 Freq: Status: Active Protocol: Document 09/06/21 11:18 DCW (Rec: 09/06/21 11:43 [facility] [id number]) Posture Evaluation Position Standing Evaluation View Posterior Head/C-Spine Posture Forward Head T-Spine Posture Fixed Scoliosis on (R), Increased Kyphosis L-Spine Posture Flattened,Fixed Scoliosis on ( L) PT-OP-M Strength Start: 05/17/21 17:35 Freq: Status: Active Protocol: Document 09/06/21 11:18 DCW (Rec: 09/06/21 11:43 [facility] [id number]) Hip Strength Hip Manual Muscle Testing Right Flexion (L2) 3+ Fair+ Abduction 4 Good Adduction 4 Good Comments R Groin pain today limited MMT Left Flexion (L2) 4 Good Abduction 4 Good Adduction 4 Good Knee Strength Knee Manual Muscle Testing Right Flexion (S2) 4 Good Extension (L3) 4 Good Left Flexion (S2) 4 Good Extension (L3) 4 Good PT-OP-Q Treatments Start: 05/17/21 17:35 Freq: Status: Active Protocol: Document 11/10/21 12:00 DCW (Rec: 11/10/21 13:40 [facility] [id number]) Cardio Equipment Recumbent Elliptical (Biodex) Duration (Minutes) 5 Resistance 5 Seat Position 9 Gym Equipment Shuttle Balance Red Details WBOS (EO/EC), Staggered Stance Comments Min A, wt shifting/ stationary Neuro Re-Education Treatment Balance Activities Toe-taps Details Cross body toe-taps on cones Ball pick-up/Toss Details Ball pick-up/toss SLS Details SLS Surface Pascual foam Equipment // bars Tandem Stance Details Tandem Stance Equipment // bars Foam Stance Details EO/EC Surface Blue Foam PT-OP-T Assessment and Plan Start: 05/17/21 17:35 Freq: Status: Active Protocol: Document 11/10/21 12:00 DCW (Rec: 11/10/21 13:40 [facility] [id number]) Physical Therapy Assessment Impairments Impairments Activity Tolerance,Balance, Functional Activities, Functional Mobility,Gait,Pain, Posture,Soft Tissue Mobility, Strength Goals Three Impairment Pt does not have an appropriate home exercise program Short Term Goal (STG) Pt to be independent and compliant with an appropriate HEP STG Duration 10/06/21 - Improving Two Impairment Pt exhibits bilateral weakness in hip abduction Short Term Goal (STG) Pt to increase hip abduction MMT bilaterally to at least 4/ 5 to improve stability and gait STG Duration Met Halfway Goal (LTG) Pt to increase left hip flexion MMT to at least 4/5 to improve stability and gait LTG Duration 12/15/21 One Impairment Pt displays increased falls risk per Yanez and TUG Halfway Goal (LTG) Pt to increase Yanez score by at least 9 points to 45/56 to demonstrate a reduced falls risk. LTG Duration 12/15/21 - Improving Assessment Summary Assessment Pt clearly a little more distressed today emotionally, which was reflected in her physical stability today, had a harder time with balance and stability. Physical Therapy Plan Frequency and Duration Frequency of Treatment 2x/Week Duration of Treatment 90 days Plan of Care Start Date 09/06/21 Plan of Care End Date 12/05/21 Therapeutic Interventions Therapeutic Interventions Aquatic Therapy,Balance Training,Gait Training,Home Exercise Program,Joint Mobilizations,Manual Therapy, Neuromuscular Re-education, Patient/Caregiver Education, Self-Care/Home Management,Soft Tissue Mobilization, Therapeutic Activities, Therapeutic Exercises Modalities Cold Pack/Ice Massage,Electric Stimulation,Hot Packs Next Visit Focus/Plan Next Note Type Treatment Note Next Visit Plan LE strengthening, balance training
--- NOTE | 2021-11-15 14:31 | PT.OTN ---
Current Diagnoses Scoliosis, unspecified (11/15/21) Unsteadiness on feet (11/15/21) History of falling (11/15/21) Physical Therapy Treatment Note PT-OP-A Visit Information Start: 05/17/21 17:35 Freq: Status: Active Protocol: Document 11/15/21 13:45 DCW (Rec: 11/15/21 14:31 DCW [id number]) Out-Patient Physical Therapy Visit Information Visit Information Visit Type Treatment Note Visit Start Time 13:45 Visit Stop Time 14:30 Total Visit Minutes 45 Visit Number 25 Number of SUPERVISOR LEAD REFINERY Visits 0 Evaluation Information Evaluation Date 05/17/21 PT-OP-B Current Condition Start: 05/17/21 17:35 Freq: Status: Active Protocol: Document 05/17/21 15:25 DCW (Rec: 05/18/21 10:48 DCW [id number]) Current Condition History of Current Condition Onset Date Multi-year history Current Complaints Decreased balance, recent fall , esteves pain, back pain History of Current Condition Pt is an 86 year old female well known to this clinic presenting with complaints of declining balance, decreased activity tolerance, and leg/ back pain. Pt has undergone multiple rounds of therapy at this clinic for these same complaints, with varying levels of success. Pt notes that she experiences esteves pain fairly frequently, and her back bothers her if she stands longer than one minute.Admits to a fall a few days ago in her garage because she was rushing around, trying to do things too fast. Reports she landed on her back, which hurt at the time, but is now back to normal. Pt is also spending more energy caring for her recently, who has been struggling more with dementia . Pt was last in therapy three months ago, and feels like she has declined quite a bit since then. Treatment Goals Patient/Caregiver Goals Improve balance, activity tolerance, and decrease pain PT-OP-C Subjective Start: 05/17/21 17:35 Freq: Status: Active Protocol: Document 11/15/21 13:45 DCW (Rec: 11/15/21 14:31 DCW [id number]) OP-PT Subjective Patient Comments Patient Comments How am I doing? I'm not sure, it changes moment to moment. PT-OP-D Balance Start: 05/17/21 17:35 Freq: Status: Active Protocol: Document 09/06/21 11:18 DCW (Rec: 09/06/21 11:43 DCW [id number]) OP-PT Balance Assessment Sitting Balance Static Sitting Balance Ability Good Dynamic Sitting Balance Ability Good Standing Balance Static Standing Balance Ability Fair Dynamic Standing Balance Ability Poor Balance Tests Yanez Balance Test Yanez Balance Test Score 37/56 Yanez Impairment Rating 20 to 39% Impaired (Score 34- 44) Yanez Balance Assessment Evaluation Sitting to Standing Ability Independent w/Hands Unsupported Stance Supervision- 2 minutes Sitting Unsupported, Feet on Floor Safely- 2 minutes Standing to Sitting Ability Safely, Minimal Hand Use Transfer Ability Safely, Hand Use Unsupported Stance- Eyes Closed Supervision, 10 seconds Unsupported Stance- Eyes Open Supervision to maintain Reaching Forward Standing Safely, 2 inches Pick- Up Object From Floor Independent/Safe Look Behind Shoulder - Standing Turns Sideways Only Turning 360 Degrees Turns slowly, but safely Unsupported Stance, Alternating Feet on 2 Steps w/Minimum Assist Stair Unsupported Tandem Stance Small Step- 30 seconds Unilateral Leg Stance Lifts Leg/Unable to Hold Total Score Yanez Total Score (out of 56 points) 37 Yanez Impairment Rating 20 to 39% Impaired (Score 34- 44) Mensah Fall Scale Copyright Permission PT-OP-E Functional Tests Start: 05/17/21 17:35 Freq: Status: Active Protocol: Document 09/06/21 11:18 DCW (Rec: 09/06/21 11:43 [facility] [id number]) Functional Tests Timed Up and Go (TUG) Score 23.29 /c SPC Comments 3-trial average (22.57, 22.95, 24.36) TUG Impairment Rating 100% Impaired (Score 20) PT-OP-J Posture/Palpation/Skin Start: 05/17/21 17:35 Freq: Status: Active Protocol: Document 09/06/21 11:18 DCW (Rec: 09/06/21 11:43 [facility] [id number]) Posture Evaluation Position Standing Evaluation View Posterior Head/C-Spine Posture Forward Head T-Spine Posture Fixed Scoliosis on (R), Increased Kyphosis L-Spine Posture Flattened,Fixed Scoliosis on ( L) PT-OP-M Strength Start: 05/17/21 17:35 Freq: Status: Active Protocol: Document 09/06/21 11:18 DCW (Rec: 09/06/21 11:43 [facility] [id number]) Hip Strength Hip Manual Muscle Testing Right Flexion (L2) 3+ Fair+ Abduction 4 Good Adduction 4 Good Comments R Groin pain today limited MMT Left Flexion (L2) 4 Good Abduction 4 Good Adduction 4 Good Knee Strength Knee Manual Muscle Testing Right Flexion (S2) 4 Good Extension (L3) 4 Good Left Flexion (S2) 4 Good Extension (L3) 4 Good PT-OP-Q Treatments Start: 05/17/21 17:35 Freq: Status: Active Protocol: Document 11/15/21 13:45 DCW (Rec: 11/15/21 14:31 [facility] [id number]) Cardio Equipment Recumbent Elliptical (Biodex) Duration (Minutes) 5 Resistance 5 Seat Position 9 Gym Equipment Shuttle Balance Red Details WBOS (EO/EC), Staggered Stance Comments Min A, wt shifting/ stationary Therapeutic Exercises Standing Exercises 3 Standing Exercise Name Hamstring curls Side bilateral Resistance 4# 2 Standing Exercise Name Toe Taps Side bilateral Resistance 5# 1 Standing Exercise Name Heel Raises Side bilateral Neuro Re-Education Treatment Balance Activities Toe-taps Details Cross body toe-taps on cones Ball pick-up/Toss Details Ball pick-up/toss Tandem Stance Details Tandem Stance Equipment // bars Foam Stance Details EO/EC Surface Blue Foam PT-OP-T Assessment and Plan Start: 05/17/21 17:35 Freq: Status: Active Protocol: Document 11/15/21 13:45 DCW (Rec: 11/15/21 14:31 [facility] [id number]) Physical Therapy Assessment Impairments Impairments Activity Tolerance,Balance, Functional Activities, Functional Mobility,Gait,Pain, Posture,Soft Tissue Mobility, Strength Goals Three Impairment Pt does not have an appropriate home exercise program Short Term Goal (STG) Pt to be independent and compliant with an appropriate HEP STG Duration 10/06/21 - Improving Two Impairment Pt exhibits bilateral weakness in hip abduction Short Term Goal (STG) Pt to increase hip abduction MMT bilaterally to at least 4/ 5 to improve stability and gait STG Duration Met Bio Medical Technician Goal (LTG) Pt to increase left hip flexion MMT to at least 4/5 to improve stability and gait LTG Duration 12/15/21 One Impairment Pt displays increased falls risk per Yanez and TUG Care Home Goal (LTG) Pt to increase Yanez score by at least 9 points to 45/56 to demonstrate a reduced falls risk. LTG Duration 12/15/21 - Improving Assessment Summary Assessment Pt did well with treatment today, improved balance with tandem standing and eyes closed on blue foam. Physical Therapy Plan Frequency and Duration Frequency of Treatment 2x/Week Duration of Treatment 90 days Plan of Care Start Date 09/06/21 Plan of Care End Date 12/05/21 Therapeutic Interventions Therapeutic Interventions Aquatic Therapy,Balance Training,Gait Training,Home Exercise Program,Joint Mobilizations,Manual Therapy, Neuromuscular Re-education, Patient/Caregiver Education, Self-Care/Home Management,Soft Tissue Mobilization, Therapeutic Activities, Therapeutic Exercises Modalities Cold Pack/Ice Massage,Electric Stimulation,Hot Packs Next Visit Focus/Plan Next Note Type Treatment Note Next Visit Plan LE strengthening, balance training
--- NOTE | 2021-11-22 14:31 | PT.OTN ---
Current Diagnoses Scoliosis, unspecified (11/22/21) Unsteadiness on feet (11/22/21) History of falling (11/22/21) Physical Therapy Treatment Note PT-OP-A Visit Information Start: 05/17/21 17:35 Freq: Status: Active Protocol: Document 11/22/21 13:49 DCW (Rec: 11/22/21 14:31 DCW [id number]) Out-Patient Physical Therapy Visit Information Visit Information Visit Type Treatment Note Visit Start Time 13:49 Visit Stop Time 14:30 Total Visit Minutes 41 Visit Number 26 Number of LYRIC WRITER Visits 0 Evaluation Information Evaluation Date 05/17/21 PT-OP-B Current Condition Start: 05/17/21 17:35 Freq: Status: Active Protocol: Document 05/17/21 15:25 DCW (Rec: 05/18/21 10:48 DCW [id number]) Current Condition History of Current Condition Onset Date Multi-year history Current Complaints Decreased balance, recent fall , esteves pain, back pain History of Current Condition Pt is an 86 year old female well known to this clinic presenting with complaints of declining balance, decreased activity tolerance, and leg/ back pain. Pt has undergone multiple rounds of therapy at this clinic for these same complaints, with varying levels of success. Pt notes that she experiences esteves pain fairly frequently, and her back bothers her if she stands longer than one minute.Admits to a fall a few days ago in her garage because she was rushing around, trying to do things too fast. Reports she landed on her back, which hurt at the time, but is now back to normal. Pt is also spending more energy caring for her recently, who has been struggling more with dementia . Pt was last in therapy three months ago, and feels like she has declined quite a bit since then. Treatment Goals Patient/Caregiver Goals Improve balance, activity tolerance, and decrease pain PT-OP-C Subjective Start: 05/17/21 17:35 Freq: Status: Active Protocol: Document 11/22/21 13:49 DCW (Rec: 11/22/21 14:31 DCW [id number]) OP-PT Subjective Patient Comments Patient Comments I'm tired and upset and etc, etc. PT-OP-D Balance Start: 05/17/21 17:35 Freq: Status: Active Protocol: Document 09/06/21 11:18 DCW (Rec: 09/06/21 11:43 DC [id number]) OP-PT Balance Assessment Sitting Balance Static Sitting Balance Ability Good Dynamic Sitting Balance Ability Good Standing Balance Static Standing Balance Ability Fair Dynamic Standing Balance Ability Poor Balance Tests Yanez Balance Test Yanez Balance Test Score 37/56 Yanez Impairment Rating 20 to 39% Impaired (Score 34- 44) Yanez Balance Assessment Evaluation Sitting to Standing Ability Independent w/Hands Unsupported Stance Supervision- 2 minutes Sitting Unsupported, Feet on Floor Safely- 2 minutes Standing to Sitting Ability Safely, Minimal Hand Use Transfer Ability Safely, Hand Use Unsupported Stance- Eyes Closed Supervision, 10 seconds Unsupported Stance- Eyes Open Supervision to maintain Reaching Forward Standing Safely, 2 inches Pick- Up Object From Floor Independent/Safe Look Behind Shoulder - Standing Turns Sideways Only Turning 360 Degrees Turns slowly, but safely Unsupported Stance, Alternating Feet on 2 Steps w/Minimum Assist Stair Unsupported Tandem Stance Small Step- 30 seconds Unilateral Leg Stance Lifts Leg/Unable to Hold Total Score Yanez Total Score (out of 56 points) 37 Yanez Impairment Rating 20 to 39% Impaired (Score 34- 44) Mensah Fall Scale Copyright Permission PT-OP-E Functional Tests Start: 05/17/21 17:35 Freq: Status: Active Protocol: Document 09/06/21 11:18 DCW (Rec: 09/06/21 11:43 [facility] [id number]) Functional Tests Timed Up and Go (TUG) Score 23.29 /c SPC Comments 3-trial average (22.57, 22.95, 24.36) TUG Impairment Rating 100% Impaired (Score 20) PT-OP-J Posture/Palpation/Skin Start: 05/17/21 17:35 Freq: Status: Active Protocol: Document 09/06/21 11:18 DCW (Rec: 09/06/21 11:43 [facility] [id number]) Posture Evaluation Position Standing Evaluation View Posterior Head/C-Spine Posture Forward Head T-Spine Posture Fixed Scoliosis on (R), Increased Kyphosis L-Spine Posture Flattened,Fixed Scoliosis on ( L) PT-OP-M Strength Start: 05/17/21 17:35 Freq: Status: Active Protocol: Document 09/06/21 11:18 DCW (Rec: 09/06/21 11:43 [facility] [id number]) Hip Strength Hip Manual Muscle Testing Right Flexion (L2) 3+ Fair+ Abduction 4 Good Adduction 4 Good Comments R Groin pain today limited MMT Left Flexion (L2) 4 Good Abduction 4 Good Adduction 4 Good Knee Strength Knee Manual Muscle Testing Right Flexion (S2) 4 Good Extension (L3) 4 Good Left Flexion (S2) 4 Good Extension (L3) 4 Good PT-OP-Q Treatments Start: 05/17/21 17:35 Freq: Status: Active Protocol: Document 11/22/21 13:49 DCW (Rec: 11/22/21 14:31 RIW [id number]) Cardio Equipment Recumbent Bicycle Duration (Minutes) 5 Resistance 2 Seat Position 4 Gym Equipment Shuttle Balance Red Details WBOS (EO/EC), Staggered Stance Comments Min A, wt shifting/ stationary Neuro Re-Education Treatment Balance Activities Toe-taps Details Cross body toe-taps on cones Ball pick-up/Toss Details Ball pick-up/toss SLS Details SLS Surface Pascual foam Equipment // bars Tandem Stance Details Tandem Stance Equipment // bars PT-OP-T Assessment and Plan Start: 05/17/21 17:35 Freq: Status: Active Protocol: Document 11/22/21 13:49 DCW (Rec: 11/22/21 14:31 RIW [id number]) Physical Therapy Assessment Impairments Impairments Activity Tolerance,Balance, Functional Activities, Functional Mobility,Gait,Pain, Posture,Soft Tissue Mobility, Strength Goals Three Impairment Pt does not have an appropriate home exercise program Short Term Goal (STG) Pt to be independent and compliant with an appropriate HEP STG Duration 10/06/21 - Improving Two Impairment Pt exhibits bilateral weakness in hip abduction Short Term Goal (STG) Pt to increase hip abduction MMT bilaterally to at least 4/ 5 to improve stability and gait STG Duration Met Custodial Goal (LTG) Pt to increase left hip flexion MMT to at least 4/5 to improve stability and gait LTG Duration 12/15/21 One Impairment Pt displays increased falls risk per Yanez and TUG Custodial Goal (LTG) Pt to increase Yanez score by at least 9 points to 45/56 to demonstrate a reduced falls risk. LTG Duration 12/15/21 - Improving Assessment Summary Assessment Pt did well today, tolerated activity very well, minimal rest breaks needed. Pt has been having some increased difficulty with personal issues, but is hopeful she is going to be getting more help with care for her Physical Therapy Plan Frequency and Duration Frequency of Treatment 2x/Week Duration of Treatment 90 days Plan of Care Start Date 09/06/21 Plan of Care End Date 12/05/21 Therapeutic Interventions Therapeutic Interventions Aquatic Therapy,Balance Training,Gait Training,Home Exercise Program,Joint Mobilizations,Manual Therapy, Neuromuscular Re-education, Patient/Caregiver Education, Self-Care/Home Management,Soft Tissue Mobilization, Therapeutic Activities, Therapeutic Exercises Modalities Cold Pack/Ice Massage,Electric Stimulation,Hot Packs Next Visit Focus/Plan Next Note Type Treatment Note Next Visit Plan LE strengthening, balance training
--- NOTE | 2021-11-24 14:30 | PT.OTN ---
Current Diagnoses Scoliosis, unspecified (11/24/21) Unsteadiness on feet (11/24/21) History of falling (11/24/21) Physical Therapy Treatment Note PT-OP-A Visit Information Start: 05/17/21 17:35 Freq: Status: Active Protocol: Document 11/24/21 13:49 DCW (Rec: 11/24/21 14:29 DCW [id number]) Out-Patient Physical Therapy Visit Information Visit Information Visit Type Treatment Note Visit Start Time 13:49 Visit Stop Time 14:30 Total Visit Minutes 41 Visit Number 27 Number of PARTS DEPARTMENT MANAGER Visits 0 Evaluation Information Evaluation Date 05/17/21 PT-OP-B Current Condition Start: 05/17/21 17:35 Freq: Status: Active Protocol: Document 05/17/21 15:25 DCW (Rec: 05/18/21 10:48 DCW [id number]) Current Condition History of Current Condition Onset Date Multi-year history Current Complaints Decreased balance, recent fall , esteves pain, back pain History of Current Condition Pt is an 86 year old female well known to this clinic presenting with complaints of declining balance, decreased activity tolerance, and leg/ back pain. Pt has undergone multiple rounds of therapy at this clinic for these same complaints, with varying levels of success. Pt notes that she experiences esteves pain fairly frequently, and her back bothers her if she stands longer than one minute.Admits to a fall a few days ago in her garage because she was rushing around, trying to do things too fast. Reports she landed on her back, which hurt at the time, but is now back to normal. Pt is also spending more energy caring for her recently, who has been struggling more with dementia . Pt was last in therapy three months ago, and feels like she has declined quite a bit since then. Treatment Goals Patient/Caregiver Goals Improve balance, activity tolerance, and decrease pain PT-OP-C Subjective Start: 05/17/21 17:35 Freq: Status: Active Protocol: Document 11/24/21 13:49 DCW (Rec: 11/24/21 14:29 DCW [id number]) OP-PT Subjective Patient Comments Patient Comments My shoulders are killing me, but besides that, the rest of me is feeling pretty good. PT-OP-D Balance Start: 05/17/21 17:35 Freq: Status: Active Protocol: Document 06/07/22 11:18 DCW (Rec: 09/06/21 11:43 DCW [id number]) OP-PT Balance Assessment Sitting Balance Static Sitting Balance Ability Good Dynamic Sitting Balance Ability Good Standing Balance Static Standing Balance Ability Fair Dynamic Standing Balance Ability Poor Balance Tests Yanez Balance Test Yanez Balance Test Score 37/56 Yanez Impairment Rating 20 to 39% Impaired (Score 34- 44) Yanez Balance Assessment Evaluation Sitting to Standing Ability Independent w/Hands Unsupported Stance Supervision- 2 minutes Sitting Unsupported, Feet on Floor Safely- 2 minutes Standing to Sitting Ability Safely, Minimal Hand Use Transfer Ability Safely, Hand Use Unsupported Stance- Eyes Closed Supervision, 10 seconds Unsupported Stance- Eyes Open Supervision to maintain Reaching Forward Standing Safely, 2 inches Pick- Up Object From Floor Independent/Safe Look Behind Shoulder - Standing Turns Sideways Only Turning 360 Degrees Turns slowly, but safely Unsupported Stance, Alternating Feet on 2 Steps w/Minimum Assist Stair Unsupported Tandem Stance Small Step- 30 seconds Unilateral Leg Stance Lifts Leg/Unable to Hold Total Score Yanez Total Score (out of 56 points) 37 Yanez Impairment Rating 20 to 39% Impaired (Score 34- 44) Mensah Fall Scale Copyright Permission PT-OP-E Functional Tests Start: 05/17/21 17:35 Freq: Status: Active Protocol: Document 09/06/21 11:18 DCW (Rec: 09/06/21 11:43 DCW [id number]) Functional Tests Timed Up and Go (TUG) Score 23.29 /c SPC Comments 3-trial average (22.57, 22.95, 24.36) TUG Impairment Rating 100% Impaired (Score 20) PT-OP-J Posture/Palpation/Skin Start: 05/17/21 17:35 Freq: Status: Active Protocol: Document 09/06/21 11:18 DCW (Rec: 09/06/21 11:43 DCW [id number]) Posture Evaluation Position Standing Evaluation View Posterior Head/C-Spine Posture Forward Head T-Spine Posture Fixed Scoliosis on (R), Increased Kyphosis L-Spine Posture Flattened,Fixed Scoliosis on ( L) PT-OP-M Strength Start: 05/17/21 17:35 Freq: Status: Active Protocol: Document 09/06/21 11:18 DCW (Rec: 09/06/21 11:43 DCW [id number]) Hip Strength Hip Manual Muscle Testing Right Flexion (L2) 3+ Fair+ Abduction 4 Good Adduction 4 Good Comments R Groin pain today limited MMT Left Flexion (L2) 4 Good Abduction 4 Good Adduction 4 Good Knee Strength Knee Manual Muscle Testing Right Flexion (S2) 4 Good Extension (L3) 4 Good Left Flexion (S2) 4 Good Extension (L3) 4 Good PT-OP-Q Treatments Start: 05/17/21 17:35 Freq: Status: Active Protocol: Document 11/24/21 13:49 DCW (Rec: 11/24/21 14:29 [facility] [id number]) Cardio Equipment Recumbent Elliptical (Biodex) Duration (Minutes) 5 Resistance 5 Seat Position 8 Gym Equipment Shuttle Balance Red Details WBOS (EO/EC), Staggered Stance Comments Min A, wt shifting/ stationary Therapeutic Exercises Standing Exercises 3 Standing Exercise Name Hamstring curls Side bilateral Resistance 5# 2 Standing Exercise Name Toe Taps Side bilateral Resistance 5# 1 Standing Exercise Name Heel Raises Side bilateral Neuro Re-Education Treatment Balance Activities Toe-taps Details Cross body toe-taps on cones Ball pick-up/Toss Details Ball pick-up/toss SLS Details SLS Surface Pascual foam Equipment // bars Tandem Stance Details Tandem Stance Equipment // bars PT-OP-T Assessment and Plan Start: 05/17/21 17:35 Freq: Status: Active Protocol: Document 11/24/21 13:49 DCW (Rec: 11/24/21 14:29 [facility] [id number]) Physical Therapy Assessment Impairments Impairments Activity Tolerance,Balance, Functional Activities, Functional Mobility,Gait,Pain, Posture,Soft Tissue Mobility, Strength Goals Three Impairment Pt does not have an appropriate home exercise program Short Term Goal (STG) Pt to be independent and compliant with an appropriate HEP STG Duration 10/06/21 - Improving Two Impairment Pt exhibits bilateral weakness in hip abduction Short Term Goal (STG) Pt to increase hip abduction MMT bilaterally to at least 4/ 5 to improve stability and gait STG Duration Met Fdc Goal (LTG) Pt to increase left hip flexion MMT to at least 4/5 to improve stability and gait LTG Duration 12/15/21 One Impairment Pt displays increased falls risk per Yanez and TUG Netting Inspector Goal (LTG) Pt to increase Yanez score by at least 9 points to 45/56 to demonstrate a reduced falls risk. LTG Duration 12/15/21 - Improving Assessment Summary Assessment Pt doing better with tandem stance and SLS. Minimal fatigue with activity today, continue to focus on strength and balance. Physical Therapy Plan Frequency and Duration Frequency of Treatment 2x/Week Duration of Treatment 90 days Plan of Care Start Date 09/06/21 Plan of Care End Date 12/05/21 Therapeutic Interventions Therapeutic Interventions Aquatic Therapy,Balance Training,Gait Training,Home Exercise Program,Joint Mobilizations,Manual Therapy, Neuromuscular Re-education, Patient/Caregiver Education, Self-Care/Home Management,Soft Tissue Mobilization, Therapeutic Activities, Therapeutic Exercises Modalities Cold Pack/Ice Massage,Electric Stimulation,Hot Packs Next Visit Focus/Plan Next Note Type Treatment Note Next Visit Plan LE strengthening, balance training
--- NOTE | 2021-11-29 14:29 | PT.OTN ---
Current Diagnoses Scoliosis, unspecified (11/29/21) Unsteadiness on feet (11/29/21) History of falling (11/29/21) Physical Therapy Treatment Note PT-OP-A Visit Information Start: 05/17/21 17:35 Freq: Status: Active Protocol: Document 11/29/21 13:48 DCW (Rec: 11/29/21 14:29 DCW [id number]) Out-Patient Physical Therapy Visit Information Visit Information Visit Type Treatment Note Visit Start Time 13:48 Visit Stop Time 14:30 Total Visit Minutes 42 Visit Number 28 Number of BUSINESS CONTINUITY PLANNING DIRECTOR Visits 0 Evaluation Information Evaluation Date 05/17/21 PT-OP-B Current Condition Start: 05/17/21 17:35 Freq: Status: Active Protocol: Document 05/17/21 15:25 DCW (Rec: 05/18/21 10:48 DCW [id number]) Current Condition History of Current Condition Onset Date Multi-year history Current Complaints Decreased balance, recent fall , esteves pain, back pain History of Current Condition Pt is an 86 year old female well known to this clinic presenting with complaints of declining balance, decreased activity tolerance, and leg/ back pain. Pt has undergone multiple rounds of therapy at this clinic for these same complaints, with varying levels of success. Pt notes that she experiences esteves pain fairly frequently, and her back bothers her if she stands longer than one minute.Admits to a fall a few days ago in her garage because she was rushing around, trying to do things too fast. Reports she landed on her back, which hurt at the time, but is now back to normal. Pt is also spending more energy caring for her recently, who has been struggling more with dementia . Pt was last in therapy three months ago, and feels like she has declined quite a bit since then. Treatment Goals Patient/Caregiver Goals Improve balance, activity tolerance, and decrease pain PT-OP-C Subjective Start: 05/17/21 17:35 Freq: Status: Active Protocol: Document 11/29/21 13:48 DCW (Rec: 11/29/21 14:29 DCW [id number]) OP-PT Subjective Patient Comments Patient Comments I'm here physically, maybe not mentally. PT-OP-D Balance Start: 05/17/21 17:35 Freq: Status: Active Protocol: Document 09/06/21 11:18 DCW (Rec: 09/06/21 11:43 DCW [id number]) OP-PT Balance Assessment Sitting Balance Static Sitting Balance Ability Good Dynamic Sitting Balance Ability Good Standing Balance Static Standing Balance Ability Fair Dynamic Standing Balance Ability Poor Balance Tests Yanez Balance Test Yanez Balance Test Score 37/56 Yanez Impairment Rating 20 to 39% Impaired (Score 34- 44) Yanez Balance Assessment Evaluation Sitting to Standing Ability Independent w/Hands Unsupported Stance Supervision- 2 minutes Sitting Unsupported, Feet on Floor Safely- 2 minutes Standing to Sitting Ability Safely, Minimal Hand Use Transfer Ability Safely, Hand Use Unsupported Stance- Eyes Closed Supervision, 10 seconds Unsupported Stance- Eyes Open Supervision to maintain Reaching Forward Standing Safely, 2 inches Pick- Up Object From Floor Independent/Safe Look Behind Shoulder - Standing Turns Sideways Only Turning 360 Degrees Turns slowly, but safely Unsupported Stance, Alternating Feet on 2 Steps w/Minimum Assist Stair Unsupported Tandem Stance Small Step- 30 seconds Unilateral Leg Stance Lifts Leg/Unable to Hold Total Score Yanez Total Score (out of 56 points) 37 Yanez Impairment Rating 20 to 39% Impaired (Score 34- 44) Mensah Fall Scale Copyright Permission PT-OP-E Functional Tests Start: 05/17/21 17:35 Freq: Status: Active Protocol: Document 09/06/21 11:18 DCW (Rec: 09/06/21 11:43 [facility] [id number]) Functional Tests Timed Up and Go (TUG) Score 23.29 /c SPC Comments 3-trial average (22.57, 22.95, 24.36) TUG Impairment Rating 100% Impaired (Score 20) PT-OP-J Posture/Palpation/Skin Start: 05/17/21 17:35 Freq: Status: Active Protocol: Document 09/06/21 11:18 DCW (Rec: 09/06/21 11:43 [facility] [id number]) Posture Evaluation Position Standing Evaluation View Posterior Head/C-Spine Posture Forward Head T-Spine Posture Fixed Scoliosis on (R), Increased Kyphosis L-Spine Posture Flattened,Fixed Scoliosis on ( L) PT-OP-M Strength Start: 05/17/21 17:35 Freq: Status: Active Protocol: Document 09/06/21 11:18 DCW (Rec: 09/06/21 11:43 [facility] [id number]) Hip Strength Hip Manual Muscle Testing Right Flexion (L2) 3+ Fair+ Abduction 4 Good Adduction 4 Good Comments R Groin pain today limited MMT Left Flexion (L2) 4 Good Abduction 4 Good Adduction 4 Good Knee Strength Knee Manual Muscle Testing Right Flexion (S2) 4 Good Extension (L3) 4 Good Left Flexion (S2) 4 Good Extension (L3) 4 Good PT-OP-Q Treatments Start: 05/17/21 17:35 Freq: Status: Active Protocol: Document 11/29/21 13:48 DCW (Rec: 11/29/21 14:29 DCW [id number]) Cardio Equipment Recumbent Elliptical (Biodex) Duration (Minutes) 5 Resistance 5 Seat Position 8 Gym Equipment Shuttle Balance Red Details WBOS (EO/EC), Staggered Stance Comments Min A, wt shifting/stationary Neuro Re-Education Treatment Balance Activities Toe-taps Details Cross body toe-taps on cones Ball pick-up/Toss Details Ball pick-up/toss SLS Details SLS Surface Pascual foam Equipment // bars Tandem Stance Details Tandem Stance Equipment // bars Foam Stance Details EO/EC Surface Blue Foam PT-OP-T Assessment and Plan Start: 05/17/21 17:35 Freq: Status: Active Protocol: Document 11/29/21 13:48 DCW (Rec: 11/29/21 14:29 DCW [id number]) Physical Therapy Assessment Impairments Impairments Activity Tolerance,Balance, Functional Activities, Functional Mobility,Gait,Pain, Posture,Soft Tissue Mobility, Strength Goals Three Impairment Pt does not have an appropriate home exercise program Short Term Goal (STG) Pt to be independent and compliant with an appropriate HEP STG Duration 10/06/21 - Improving Two Impairment Pt exhibits bilateral weakness in hip abduction Short Term Goal (STG) Pt to increase hip abduction MMT bilaterally to at least 4/ 5 to improve stability and gait STG Duration Met Rn Military Goal (LTG) Pt to increase left hip flexion MMT to at least 4/5 to improve stability and gait LTG Duration 12/15/21 One Impairment Pt displays increased falls risk per Yanez and TUG Rn Military Goal (LTG) Pt to increase Yanez score by at least 9 points to 45/56 to demonstrate a reduced falls risk. LTG Duration 12/15/21 - Improving Assessment Summary Assessment Pt once again did not display any signs of fatigue, moving right from one activity to the next, improving balance, continues to have significant difficulty with forward posture due to severe scoliosis/kyphosis Physical Therapy Plan Frequency and Duration Frequency of Treatment 2x/Week Duration of Treatment 90 days Plan of Care Start Date 09/06/21 Plan of Care End Date 12/05/21 Therapeutic Interventions Therapeutic Interventions Aquatic Therapy,Balance Training,Gait Training,Home Exercise Program,Joint Mobilizations,Manual Therapy, Neuromuscular Re-education, Patient/Caregiver Education, Self-Care/Home Management,Soft Tissue Mobilization, Therapeutic Activities, Therapeutic Exercises Modalities Cold Pack/Ice Massage,Electric Stimulation,Hot Packs Next Visit Focus/Plan Next Note Type Treatment Note Next Visit Plan LE strengthening, balance training
--- NOTE | 2021-12-01 14:31 | PT.OTN ---
Current Diagnoses Scoliosis, unspecified (12/01/21) Unsteadiness on feet (12/01/21) History of falling (12/01/21) Physical Therapy Treatment Note PT-OP-A Visit Information Start: 05/17/21 17:35 Freq: Status: Active Protocol: Document 12/01/21 13:45 DCW (Rec: 12/01/21 14:30 DCW [id number]) Out-Patient Physical Therapy Visit Information Visit Information Visit Type Treatment Note Visit Start Time 13:45 Visit Stop Time 14:30 Total Visit Minutes 45 Visit Number 29 Number of LOSS PREVENTION OFFICER Visits 0 Evaluation Information Evaluation Date 05/17/21 PT-OP-B Current Condition Start: 05/17/21 17:35 Freq: Status: Active Protocol: Document 05/17/21 15:25 DCW (Rec: 05/18/21 10:48 DCW [id number]) Current Condition History of Current Condition Onset Date Multi-year history Current Complaints Decreased balance, recent fall , esteves pain, back pain History of Current Condition Pt is an 86 year old female well known to this clinic presenting with complaints of declining balance, decreased activity tolerance, and leg/ back pain. Pt has undergone multiple rounds of therapy at this clinic for these same complaints, with varying levels of success. Pt notes that she experiences esteves pain fairly frequently, and her back bothers her if she stands longer than one minute.Admits to a fall a few days ago in her garage because she was rushing around, trying to do things too fast. Reports she landed on her back, which hurt at the time, but is now back to normal. Pt is also spending more energy caring for her recently, who has been struggling more with dementia . Pt was last in therapy three months ago, and feels like she has declined quite a bit since then. Treatment Goals Patient/Caregiver Goals Improve balance, activity tolerance, and decrease pain PT-OP-C Subjective Start: 05/17/21 17:35 Freq: Status: Active Protocol: Document 12/01/21 13:45 DCW (Rec: 12/01/21 14:30 DCW [id number]) OP-PT Subjective Patient Comments Patient Comments Pt comes in today with increased LE edema, admits she doesn't use her diuretics often because if she is out, she can't stop at bathrooms frequently. PT-OP-D Balance Start: 05/17/21 17:35 Freq: Status: Active Protocol: Document 09/06/21 11:18 DCW (Rec: 09/06/21 11:43 DCW [id number]) OP-PT Balance Assessment Sitting Balance Static Sitting Balance Ability Good Dynamic Sitting Balance Ability Good Standing Balance Static Standing Balance Ability Fair Dynamic Standing Balance Ability Poor Balance Tests Yanez Balance Test Yanez Balance Test Score 37/56 Yanez Impairment Rating 20 to 39% Impaired (Score 34- 44) Yanez Balance Assessment Evaluation Sitting to Standing Ability Independent w/Hands Unsupported Stance Supervision- 2 minutes Sitting Unsupported, Feet on Floor Safely- 2 minutes Standing to Sitting Ability Safely, Minimal Hand Use Transfer Ability Safely, Hand Use Unsupported Stance- Eyes Closed Supervision, 10 seconds Unsupported Stance- Eyes Open Supervision to maintain Reaching Forward Standing Safely, 2 inches Pick- Up Object From Floor Independent/Safe Look Behind Shoulder - Standing Turns Sideways Only Turning 360 Degrees Turns slowly, but safely Unsupported Stance, Alternating Feet on 2 Steps w/Minimum Assist Stair Unsupported Tandem Stance Small Step- 30 seconds Unilateral Leg Stance Lifts Leg/Unable to Hold Total Score Yanez Total Score (out of 56 points) 37 Yanez Impairment Rating 20 to 39% Impaired (Score 34- 44) Mensah Fall Scale Copyright Permission PT-OP-E Functional Tests Start: 05/17/21 17:35 Freq: Status: Active Protocol: Document 09/06/21 11:18 DCW (Rec: 09/06/21 11:43 DC [id number]) Functional Tests Timed Up and Go (TUG) Score 23.29 /c SPC Comments 3-trial average (22.57, 22.95, 24.36) TUG Impairment Rating 100% Impaired (Score 20) PT-OP-J Posture/Palpation/Skin Start: 05/17/21 17:35 Freq: Status: Active Protocol: Document 09/06/21 11:18 DCW (Rec: 09/06/21 11:43 DCW [id number]) Posture Evaluation Position Standing Evaluation View Posterior Head/C-Spine Posture Forward Head T-Spine Posture Fixed Scoliosis on (R), Increased Kyphosis L-Spine Posture Flattened,Fixed Scoliosis on ( L) PT-OP-M Strength Start: 05/17/21 17:35 Freq: Status: Active Protocol: Document 09/06/21 11:18 DCW (Rec: 09/06/21 11:43 DCW [id number]) Hip Strength Hip Manual Muscle Testing Right Flexion (L2) 3+ Fair+ Abduction 4 Good Adduction 4 Good Comments R Groin pain today limited MMT Left Flexion (L2) 4 Good Abduction 4 Good Adduction 4 Good Knee Strength Knee Manual Muscle Testing Right Flexion (S2) 4 Good Extension (L3) 4 Good Left Flexion (S2) 4 Good Extension (L3) 4 Good PT-OP-Q Treatments Start: 05/17/21 17:35 Freq: Status: Active Protocol: Document 12/01/21 13:45 DCW (Rec: 12/01/21 14:30 DCW [id number]) Cardio Equipment Recumbent Elliptical (Biodex) Duration (Minutes) 5 Resistance 5 Seat Position 8 Gym Equipment Shuttle Balance Red Details WBOS (EO/EC), Staggered Stance Comments Min A, wt shifting/stationary Therapeutic Exercises Standing Exercises 3 Standing Exercise Name Hamstring curls Side bilateral Resistance 5# Neuro Re-Education Treatment Balance Activities Toe-taps Details Cross body toe-taps on cones Ball pick-up/Toss Details Ball pick-up/toss SLS Details SLS Surface Pascual foam Equipment // bars Tandem Stance Details Tandem Stance Equipment // bars Foam Stance Details EO/EC Surface Blue Foam PT-OP-T Assessment and Plan Start: 05/17/21 17:35 Freq: Status: Active Protocol: Document 12/01/21 13:45 DCW (Rec: 12/01/21 14:30 DCW [id number]) Physical Therapy Assessment Impairments Impairments Activity Tolerance,Balance, Functional Activities, Functional Mobility,Gait,Pain, Posture,Soft Tissue Mobility, Strength Goals Three Impairment Pt does not have an appropriate home exercise program Short Term Goal (STG) Pt to be independent and compliant with an appropriate HEP STG Duration 10/06/21 - Improving Two Impairment Pt exhibits bilateral weakness in hip abduction Short Term Goal (STG) Pt to increase hip abduction MMT bilaterally to at least 4/ 5 to improve stability and gait STG Duration Met Back Line Cook Goal (LTG) Pt to increase left hip flexion MMT to at least 4/5 to improve stability and gait LTG Duration 12/15/21 One Impairment Pt displays increased falls risk per Yanez and TUG Mcfp Goal (LTG) Pt to increase Yanez score by at least 9 points to 45/56 to demonstrate a reduced falls risk. LTG Duration 12/15/21 - Improving Assessment Summary Assessment Pt doing better today, much less imbalance and LE weakness . Pt may be approaching progress plateau, will perform reassessment at next visit to determine need for continued therapy. Physical Therapy Plan Frequency and Duration Frequency of Treatment 2x/Week Duration of Treatment 90 days Plan of Care Start Date 09/06/21 Plan of Care End Date 12/05/21 Therapeutic Interventions Therapeutic Interventions Aquatic Therapy,Balance Training,Gait Training,Home Exercise Program,Joint Mobilizations,Manual Therapy, Neuromuscular Re-education, Patient/Caregiver Education, Self-Care/Home Management,Soft Tissue Mobilization, Therapeutic Activities, Therapeutic Exercises Modalities Cold Pack/Ice Massage,Electric Stimulation,Hot Packs Next Visit Focus/Plan Next Note Type Progress Note Next Visit Plan LE strengthening, balance training
--- NOTE | 2021-12-20 11:55 | PT.OTN ---
Current Diagnoses Scoliosis, unspecified (12/20/21) Unsteadiness on feet (12/20/21) History of falling (12/20/21) Physical Therapy Treatment Note PT-OP-A Visit Information Start: 05/17/21 17:35 Freq: Status: Active Protocol: Document 12/20/21 11:21 DCW (Rec: 12/20/21 11:55 DCW [id number]) Out-Patient Physical Therapy Visit Information Visit Information Visit Type Discharge Summary Visit Start Time 11:21 Visit Stop Time 12:00 Total Visit Minutes 39 Visit Number 30 Number of ENGINEERING TECHNICAL WRITER Visits 0 Evaluation Information Evaluation Date 05/17/21 PT-OP-B Current Condition Start: 05/17/21 17:35 Freq: Status: Active Protocol: Document 05/17/21 15:25 DCW (Rec: 05/18/21 10:48 DCW [id number]) Current Condition History of Current Condition Onset Date Multi-year history Current Complaints Decreased balance, recent fall , esteves pain, back pain History of Current Condition Pt is an 86 year old female well known to this clinic presenting with complaints of declining balance, decreased activity tolerance, and leg/ back pain. Pt has undergone multiple rounds of therapy at this clinic for these same complaints, with varying levels of success. Pt notes that she experiences esteves pain fairly frequently, and her back bothers her if she stands longer than one minute.Admits to a fall a few days ago in her garage because she was rushing around, trying to do things too fast. Reports she landed on her back, which hurt at the time, but is now back to normal. Pt is also spending more energy caring for her recently, who has been struggling more with dementia . Pt was last in therapy three months ago, and feels like she has declined quite a bit since then. Treatment Goals Patient/Caregiver Goals Improve balance, activity tolerance, and decrease pain PT-OP-C Subjective Start: 05/17/21 17:35 Freq: Status: Active Protocol: Document 12/20/21 11:21 DCW (Rec: 12/20/21 11:55 DCW [id number]) OP-PT Subjective Patient Comments Patient Comments Pt suffered a fall with her a week ago, notes she caught her foot on a stone and took them both down. No ongoing injuries. Pt also recently received a new PT referral for shoulder, would like to discharge current case and undergo new eval for shoulder next visit. PT-OP-D Balance Start: 05/17/21 17:35 Freq: Status: Active Protocol: Document 12/20/21 11:21 DCW (Rec: 12/20/21 11:48 DCW [id number]) OP-PT Balance Assessment Sitting Balance Static Sitting Balance Ability Good Dynamic Sitting Balance Ability Good Standing Balance Static Standing Balance Ability Fair Dynamic Standing Balance Ability Poor Balance Tests Yanez Balance Test Yanez Balance Test Score 38/56 Yanez Impairment Rating 20 to 39% Impaired (Score 34- 44) Yanez Balance Assessment Evaluation Sitting to Standing Ability Independent w/out Hands Unsupported Stance Supervision- 2 minutes Sitting Unsupported, Feet on Floor Safely- 2 minutes Standing to Sitting Ability Safely, Minimal Hand Use Transfer Ability Safely, Minimal Hand Use Unsupported Stance- Eyes Closed Supervision, 10 seconds Unsupported Stance- Eyes Open Assist to attain, 15 secs Reaching Forward Standing Safely, 2 inches Pick- Up Object From Floor Independent/Safe Look Behind Shoulder - Standing Turns Sideways Only Turning 360 Degrees Turns slowly, but safely Unsupported Stance, Alternating Feet on 4 Steps w/Supervision Stair Unsupported Tandem Stance Small Step- 30 seconds Unilateral Leg Stance Lifts Leg/Unable to Hold Total Score Yanez Total Score (out of 56 points) 38 Yanez Impairment Rating 20 to 39% Impaired (Score 34- 44) Mensah Fall Scale Copyright Permission PT-OP-E Functional Tests Start: 05/17/21 17:35 Freq: Status: Active Protocol: Document 12/20/21 11:21 DCW (Rec: 12/20/21 11:48 DCW [id number]) Functional Tests Timed Up and Go (TUG) Score 22.29 /c SPC Comments 3-trial average (20.68, 21.22, 24.99) TUG Impairment Rating 100% Impaired (Score 20) PT-OP-J Posture/Palpation/Skin Start: 05/17/21 17:35 Freq: Status: Active Protocol: Document 12/20/21 11:21 DCW (Rec: 12/20/21 11:48 DCW [id number]) Posture Evaluation Position Standing Evaluation View Posterior Head/C-Spine Posture Forward Head T-Spine Posture Fixed Scoliosis on (R), Increased Kyphosis L-Spine Posture Flattened,Fixed Scoliosis on ( L) PT-OP-M Strength Start: 02/15/22 17:35 Freq: Status: Active Protocol: Document 12/20/21 11:21 DCW (Rec: 12/20/21 11:48 DCW [id number]) Hip Strength Hip Manual Muscle Testing Right Flexion (L2) 4 Good Abduction 4 Good Adduction 4 Good Left Flexion (L2) 4 Good Abduction 4 Good Adduction 4 Good Knee Strength Knee Manual Muscle Testing Right Flexion (S2) 4 Good Extension (L3) 4 Good Left Flexion (S2) 4 Good Extension (L3) 4 Good PT-OP-Q Treatments Start: 05/17/21 17:35 Freq: Status: Active Protocol: Document 12/20/21 11:21 DCW (Rec: 12/20/21 11:55 DCW [id number]) Neuro Re-Education Treatment Other Activities Testing Details Yanez, TUG, MMT PT-OP-T Assessment and Plan Start: 05/17/21 17:35 Freq: Status: Active Protocol: Document 12/20/21 11:21 DCW (Rec: 12/20/21 11:55 DCW [id number]) Physical Therapy Assessment Impairments Impairments Activity Tolerance,Balance, Functional Activities, Functional Mobility,Gait,Pain, Posture,Soft Tissue Mobility, Strength Goals Three Impairment Pt does not have an appropriate home exercise program Short Term Goal (STG) Pt to be independent and compliant with an appropriate HEP STG Duration Met Two Impairment Pt exhibits bilateral weakness in hip abduction Short Term Goal (STG) Pt to increase hip abduction MMT bilaterally to at least 4/ 5 to improve stability and gait STG Duration Met Retail Support Manager Goal (LTG) Pt to increase left hip flexion MMT to at least 4/5 to improve stability and gait LTG Duration Met One Impairment Pt displays increased falls risk per Yanez and TUG [facility] Goal (LTG) Pt to increase Yanez score by at least 9 points to 45/56 to demonstrate a reduced falls risk. LTG Duration 12/15/21 - Improving Assessment Summary Assessment Pt progress has largely plateaued, will discharge following today's visit. In addition, pt has received new referral for shoulder, that she would prefer to address with new evaluation. Physical Therapy Plan Frequency and Duration Frequency of Treatment 2x/Week Duration of Treatment 90 days Plan of Care Start Date 09/06/21 Plan of Care End Date 12/05/21 Therapeutic Interventions Therapeutic Interventions Aquatic Therapy,Balance Training,Gait Training,Home Exercise Program,Joint Mobilizations,Manual Therapy, Neuromuscular Re-education, Patient/Caregiver Education, Self-Care/Home Management,Soft Tissue Mobilization, Therapeutic Activities, Therapeutic Exercises Modalities Cold Pack/Ice Massage,Electric Stimulation,Hot Packs Next Visit Focus/Plan Next Note Type Progress Note Next Visit Plan LE strengthening, balance training
--- NOTE | 2021-12-20 11:56 | PT.OPPOC ---
Physical, Occupational & Speech Therapy At [facility] Current Diagnoses Scoliosis, unspecified (12/20/21) Unsteadiness on feet (12/20/21) History of falling (12/20/21) Visit Care Team Role Provider Type Jia Sheridan MD Family Provider Physician Primary Care Provider Specialty: Family Practice Address: [address] [place] [address] [place], [address] Email: [email or web address] Al Kunz DO Attending Provider Physician Referring Provider Specialty: Physiatry Pain Management Address: [address] [place] [address], [address] Email: [email or web address] Plan Of Care PT-OP-T Assessment and Plan Start: 05/17/21 17:35 Freq: Status: Active Protocol: Document 12/20/21 11:21 DCW (Rec: 12/20/21 11:55 DCW [id number]) Physical Therapy Assessment Impairments Impairments Activity Tolerance,Balance, Functional Activities, Functional Mobility,Gait,Pain, Posture,Soft Tissue Mobility, Strength Goals Three Impairment Pt does not have an appropriate home exercise program Short Term Goal (STG) Pt to be independent and compliant with an appropriate HEP STG Duration Met Two Impairment Pt exhibits bilateral weakness in hip abduction Short Term Goal (STG) Pt to increase hip abduction MMT bilaterally to at least 4/ 5 to improve stability and gait STG Duration Met Shelter Goal (LTG) Pt to increase left hip flexion MMT to at least 4/5 to improve stability and gait LTG Duration Met One Impairment Pt displays increased falls risk per Yanez and TUG Shelter Goal (LTG) Pt to increase Yanez score by at least 9 points to 45/56 to demonstrate a reduced falls risk. LTG Duration 12/15/21 - Improving Assessment Summary Assessment Pt progress has largely plateaued, will discharge following today's visit. In addition, pt has received new referral for shoulder, that she would prefer to address with new evaluation. Physical Therapy Plan Frequency and Duration Frequency of Treatment 1x/Week Duration of Treatment 1 day Plan of Care Start Date 12/20/21 Plan of Care End Date 12/21/21 Therapeutic Interventions Therapeutic Interventions Aquatic Therapy,Balance Training,Gait Training,Home Exercise Program,Joint Mobilizations,Manual Therapy, Neuromuscular Re-education, Patient/Caregiver Education, Self-Care/Home Management,Soft Tissue Mobilization, Therapeutic Activities, Therapeutic Exercises Modalities Cold Pack/Ice Massage,Electric Stimulation,Hot Packs Next Visit Focus/Plan Next Note Type Progress Note Next Visit Plan LE strengthening, balance training Plan of Care Dates Plan of Care Start Date 12/20/21 Plan of Care End Date 12/21/21 Electronically Signed by: Wallace Wilson, PT 12/20/21 [id number] If you are in agreement with this Plan of Care, please return a signed and dated copy. I have reviewed this Plan of Care and certify that the skilled therapy services above are required to meet the patient?s needs. Physician Signature Date Printed Name and Credentials Clinical Instructor Signature Printed Name and Credentials
--- NOTE | 2021-12-20 11:57 | PT.OPDS ---
Current Diagnoses Scoliosis, unspecified (12/20/21) Unsteadiness on feet (12/20/21) History of falling (12/20/21) Visit Care Team Role Provider Type Jia Sheridan MD Family Provider Physician Primary Care Provider Specialty: Family Practice Address: [facility], [facility] [place], [address] Email: [email or web address] Al Kunz DO Attending Provider Physician Referring Provider Specialty: Physiatry Pain Management Address: [facility] [place], [address] Email: [email or web address] Visit Number Visit Number 30 Discharge Summary PT-OP-B Current Condition Start: 05/17/21 17:35 Freq: Status: Active Protocol: Document 05/17/21 15:25 DCW (Rec: 05/18/21 10:48 DCW [id number]) Current Condition History of Current Condition Onset Date Multi-year history Current Complaints Decreased balance, recent fall , esteves pain, back pain History of Current Condition Pt is an 86 year old female well known to this clinic presenting with complaints of declining balance, decreased activity tolerance, and leg/ back pain. Pt has undergone multiple rounds of therapy at this clinic for these same complaints, with varying levels of success. Pt notes that she experiences esteves pain fairly frequently, and her back bothers her if she stands longer than one minute.Admits to a fall a few days ago in her garage because she was rushing around, trying to do things too fast. Reports she landed on her back, which hurt at the time, but is now back to normal. Pt is also spending more energy caring for her recently, who has been struggling more with dementia . Pt was last in therapy three months ago, and feels like she has declined quite a bit since then. Treatment Goals Patient/Caregiver Goals Improve balance, activity tolerance, and decrease pain PT-OP-C Subjective Start: 05/17/21 17:35 Freq: Status: Active Protocol: Document 12/20/21 11:21 DCW (Rec: 12/20/21 11:55 DCW [id number]) OP-PT Subjective Patient Comments Patient Comments Pt suffered a fall with her a week ago, notes she caught her foot on a stone and took them both down. No ongoing injuries. Pt also recently received a new PT referral for shoulder, would like to discharge current case and undergo new eval for shoulder next visit. PT-OP-D Balance Start: 05/17/21 17:35 Freq: Status: Active Protocol: Document 12/20/21 11:21 DCW (Rec: 12/20/21 11:48 DCW [id number]) OP-PT Balance Assessment Sitting Balance Static Sitting Balance Ability Good Dynamic Sitting Balance Ability Good Standing Balance Static Standing Balance Ability Fair Dynamic Standing Balance Ability Poor Balance Tests Yanez Balance Test Yanez Balance Test Score 38/56 Yanez Impairment Rating 20 to 39% Impaired (Score 34- 44) Yanez Balance Assessment Evaluation Sitting to Standing Ability Independent w/out Hands Unsupported Stance Supervision- 2 minutes Sitting Unsupported, Feet on Floor Safely- 2 minutes Standing to Sitting Ability Safely, Minimal Hand Use Transfer Ability Safely, Minimal Hand Use Unsupported Stance- Eyes Closed Supervision, 10 seconds Unsupported Stance- Eyes Open Assist to attain, 15 secs Reaching Forward Standing Safely, 2 inches Pick- Up Object From Floor Independent/Safe Look Behind Shoulder - Standing Turns Sideways Only Turning 360 Degrees Turns slowly, but safely Unsupported Stance, Alternating Feet on 4 Steps w/Supervision Stair Unsupported Tandem Stance Small Step- 30 seconds Unilateral Leg Stance Lifts Leg/Unable to Hold Total Score Yanez Total Score (out of 56 points) 38 Yanez Impairment Rating 20 to 39% Impaired (Score 34- 44) Mensah Fall Scale Copyright Permission PT-OP-E Functional Tests Start: 05/17/21 17:35 Freq: Status: Active Protocol: Document 12/20/21 11:21 DCW (Rec: 12/20/21 11:48 DCW [id number]) Functional Tests Timed Up and Go (TUG) Score 22.29 /c SPC Comments 3-trial average (20.68, 21.22, 24.99) TUG Impairment Rating 100% Impaired (Score 20) PT-OP-J Posture/Palpation/Skin Start: 05/17/21 17:35 Freq: Status: Active Protocol: Document 12/20/21 11:21 DCW (Rec: 12/20/21 11:48 DCW [id number]) Posture Evaluation Position Standing Evaluation View Posterior Head/C-Spine Posture Forward Head T-Spine Posture Fixed Scoliosis on (R), Increased Kyphosis L-Spine Posture Flattened,Fixed Scoliosis on ( L) PT-OP-M Strength Start: 05/17/21 17:35 Freq: Status: Active Protocol: Document 12/20/21 11:21 DCW (Rec: 12/20/21 11:48 DCW [id number]) Hip Strength Hip Manual Muscle Testing Right Flexion (L2) 4 Good Abduction 4 Good Adduction 4 Good Left Flexion (L2) 4 Good Abduction 4 Good Adduction 4 Good Knee Strength Knee Manual Muscle Testing Right Flexion (S2) 4 Good Extension (L3) 4 Good Left Flexion (S2) 4 Good Extension (L3) 4 Good PT-OP-T Assessment and Plan Start: 05/17/21 17:35 Freq: Status: Active Protocol: Document 12/20/21 11:21 DCW (Rec: 12/20/21 11:55 DCW [id number]) Physical Therapy Assessment Impairments Impairments Activity Tolerance,Balance, Functional Activities, Functional Mobility,Gait,Pain, Posture,Soft Tissue Mobility, Strength Goals Three Impairment Pt does not have an appropriate home exercise program Short Term Goal (STG) Pt to be independent and compliant with an appropriate HEP STG Duration Met Two Impairment Pt exhibits bilateral weakness in hip abduction Short Term Goal (STG) Pt to increase hip abduction MMT bilaterally to at least 4/ 5 to improve stability and gait STG Duration Met Retail Support Associate Goal (LTG) Pt to increase left hip flexion MMT to at least 4/5 to improve stability and gait LTG Duration Met One Impairment Pt displays increased falls risk per Yanez and TUG Chcf Goal (LTG) Pt to increase Yanez score by at least 9 points to 45/56 to demonstrate a reduced falls risk. LTG Duration 12/15/21 - Improving Assessment Summary Assessment Pt progress has largely plateaued, will discharge following today's visit. In addition, pt has received new referral for shoulder, that she would prefer to address with new evaluation. Physical Therapy Plan Frequency and Duration Frequency of Treatment 1x/Week Duration of Treatment 1 day Plan of Care Start Date 12/20/21 Plan of Care End Date 12/21/21 Therapeutic Interventions Therapeutic Interventions Aquatic Therapy,Balance Training,Gait Training,Home Exercise Program,Joint Mobilizations,Manual Therapy, Neuromuscular Re-education, Patient/Caregiver Education, Self-Care/Home Management,Soft Tissue Mobilization, Therapeutic Activities, Therapeutic Exercises Modalities Cold Pack/Ice Massage,Electric Stimulation,Hot Packs Next Visit Focus/Plan Next Note Type Progress Note Next Visit Plan LE strengthening, balance training
--- NOTE | 2021-12-20 11:58 | PT.OPPOC ---
Physical, Occupational & Speech Therapy At [facility] Current Diagnoses Scoliosis, unspecified (12/20/21) Unsteadiness on feet (12/20/21) History of falling (12/20/21) Visit Care Team Role Provider Type Jia Sheridan MD Family Provider Physician Primary Care Provider Specialty: Family Practice Address: [address] [place] [address] [place], [address] Email: [email or web address] Al Kunz DO Attending Provider Physician Referring Provider Specialty: Physiatry Pain Management Address: [address] [place] [address], [address] Email: [email or web address] Plan Of Care PT-OP-T Assessment and Plan Start: 05/17/21 17:35 Freq: Status: Active Protocol: Document 12/20/21 11:21 DCW (Rec: 12/20/21 11:55 DCW [id number]) Physical Therapy Assessment Impairments Impairments Activity Tolerance,Balance, Functional Activities, Functional Mobility,Gait,Pain, Posture,Soft Tissue Mobility, Strength Goals Three Impairment Pt does not have an appropriate home exercise program Short Term Goal (STG) Pt to be independent and compliant with an appropriate HEP STG Duration Met Two Impairment Pt exhibits bilateral weakness in hip abduction Short Term Goal (STG) Pt to increase hip abduction MMT bilaterally to at least 4/ 5 to improve stability and gait STG Duration Met Halfway Goal (LTG) Pt to increase left hip flexion MMT to at least 4/5 to improve stability and gait LTG Duration Met One Impairment Pt displays increased falls risk per Yanez and TUG Halfway Goal (LTG) Pt to increase Yanez score by at least 9 points to 45/56 to demonstrate a reduced falls risk. LTG Duration 12/15/21 - Improving Assessment Summary Assessment Pt progress has largely plateaued, will discharge following today's visit. In addition, pt has received new referral for shoulder, that she would prefer to address with new evaluation. Physical Therapy Plan Frequency and Duration Frequency of Treatment 1x/Week Duration of Treatment 1 day Plan of Care Start Date 12/20/21 Plan of Care End Date 12/21/21 Therapeutic Interventions Therapeutic Interventions Aquatic Therapy,Balance Training,Gait Training,Home Exercise Program,Joint Mobilizations,Manual Therapy, Neuromuscular Re-education, Patient/Caregiver Education, Self-Care/Home Management,Soft Tissue Mobilization, Therapeutic Activities, Therapeutic Exercises Modalities Cold Pack/Ice Massage,Electric Stimulation,Hot Packs Next Visit Focus/Plan Next Note Type Progress Note Next Visit Plan LE strengthening, balance training Plan of Care Dates Plan of Care Start Date 12/20/21 Plan of Care End Date 12/21/21 Electronically Signed by: Wallace Wilson, PT 12/20/21 2196 If you are in agreement with this Plan of Care, please return a signed and dated copy. I have reviewed this Plan of Care and certify that the skilled therapy services above are required to meet the patient?s needs. Physician Signature Date Printed Name and Credentials Clinical Instructor Signature Printed Name and Credentials
== END 2021-12-23 09:19 | disposition home or self-care (01) ==
LOC: PHYS 11:15
PROVIDERS: Family Provider Family Medicine; PCP Family Medicine; Referring Provider Physical Medicine & Rehabilitation; Visit Provider Physical Medicine & Rehabilitation
DX: R26.81 Unsteadiness on feet (principal); M41.9 Scoliosis, unspecified; Z91.81 History of falling
CPT/HCPCS: 97110; 97112; 97162

== ENCOUNTER → 2021-12-22 14:40 | Outpatient (CLI) | payer MEDICARE, OTHER, SELFPAY ==
[2021-10-22 15:34] VITALS: BMI 26.7
== END ==
PROVIDERS: Family Provider Family Medicine; PCP Family Medicine; Referring Provider Family Medicine; Visit Provider Family Medicine
DX: R06.02 Shortness of breath (principal); I10 Essential (primary) hypertension; I07.1 Rheumatic tricuspid insufficiency; I51.7 Cardiomegaly
CPT/HCPCS: 93306

== ENCOUNTER 2022-02-21 14:30 | Outpatient (RCR) | payer MEDICARE, OTHER, SELFPAY ==
[2021-10-22 15:34] VITALS: BMI 26.7
--- NOTE | 2022-01-10 17:51 | PT.OIE ---
Current Diagnoses Pain in left shoulder (01/10/22) Stiffness of left shoulder, not elsewhere classified (01/10/22) Bicipital tendinitis, left shoulder (01/10/22) Bursitis of left shoulder (01/10/22) Past Medical History (Last Reviewed 12/19/21 @ 16:05 by Al Kunz DO) Facet arthropathy, lumbar Gait instability Impingement syndrome of left shoulder Lumbar radiculopathy Multilevel foraminal stenosis Scoliosis Past Surgical History (Last Reviewed 12/19/21 @ 16:05 by Al Kunz DO) H/O bladder repair surgery Visit Care Team Role Provider Type Jia Sheridan MD Family Provider Physician Primary Care Provider Specialty: Family Practice Address: [address] [place] [address], [address] Email: [email or web address] Dozier MD Attending Provider Physician Referring Provider Specialty: Orthopedics Orthopedic Surgery Address: [address] [place] [address], [address] Email: [email or web address] Physical Therapy Initial Evaluation PT-OP-A Visit Information Start: 01/10/22 15:07 Freq: Status: Active Protocol: Document 01/10/22 14:30 DCW (Rec: 01/10/22 15:11 DCW [id number]) Out-Patient Physical Therapy Visit Information Visit Information Visit Type Initial Evaluation Visit Start Time 14:30 Visit Stop Time 15:05 Total Visit Minutes 35 Visit Number 1 Number of CANE CUTTER Visits 0 Evaluation Information Evaluation Date 01/10/22 PT-OP-B Current Condition Start: 01/10/22 15:07 Freq: Status: Active Protocol: Document 01/10/22 14:30 DCW (Rec: 01/10/22 17:51 DCW [id number]) Current Condition History of Current Condition Onset Date 3-4 month history Current Complaints Left shoulder pain and stiffness History of Current Condition Pt is an 86 year old female well known to this clinic presenting with complaints of left shoulder pain and stiffness. Pt reports she is unable to reach her arm overhead, has difficulty lowering items using her left arm, and will frequently lose painter spray on her laundry basket with her left arm, resulting in her laundry dumping out. Reports she received an injection from Dr Kunz in her shoulder six weeks ago, and has not felt that there has been much improvement. At baseline, pt additionally has severe thoracic kyphosis and scoliosis, with also results in limited shoulder ROM bilaterally due to severe rounded shoulder posturing. Prior Treatments and Tests Pt has been seen frequently at this facility for prior PT on various body parts, including her back, her posture, and her balance, with varying degrees of success. Treatment Goals Patient/Caregiver Goals I'd like to get back the use of my left arm. PT-OP-C Subjective Start: 01/10/22 15:07 Freq: Status: Active Protocol: Document 01/10/22 14:30 DCW (Rec: 01/10/22 17:51 DCW [id number]) OP-PT Subjective Patient Comments Patient Comments I'm just falling apart. Patient Questionnaires Quick Dash- Upper Extremity Quick Dash UE Score 45% Quick Dash UE Impairment 40 to 59% Impaired (Score 40- 59) PT-OP-E Functional Tests Start: 01/10/22 15:07 Freq: Status: Active Protocol: Document 01/10/22 14:30 DCW (Rec: 01/10/22 15:11 DCW [id number]) Functional Tests Apley's Scratch Test Action 1- Left Lateral opposite shoulder Action 1- Right Posterior opposite shoulder Action 2- Left Left upper trap Action 2- Right T4 Action 3- Left L2 Action 3- Right T10 PT-OP-F Manual Assessment Start: 01/10/22 15:07 Freq: Status: Active Protocol: Document 01/10/22 14:30 DCW (Rec: 01/10/22 15:11 DCW [id number]) Manual Assessments Soft Tissue Assessment Soft Tissue Mobility Assessment Moderate tone with tenderness to palpation 3/4: wincing and withdraw along left subscap, infraspinatus, rhomboids Joint Mobility Assessment Joint Mobility Assessment Moderate-severe crepitus and grinding with all passive mobilization of left GH PT-OP-K Range of Motion Start: 01/10/22 15:07 Freq: Status: Active Protocol: Document 01/10/22 14:30 DCW (Rec: 01/10/22 15:15 DCW [id number]) Shoulder Goniometric Range of Motion Shoulder Right Active Shoulder ROM WFL No Testing Position Sitting Flexion 134 Abduction 112 External Rotation at 0 degrees Abduction 53 Internal Rotation Behind Back (text) T10 Left Passive Shoulder ROM WFL No Testing Position Sitting Flexion 122 Abduction 105 External Rotation at 0 degrees Abduction 53 Left Active Shoulder ROM WFL No Testing Position Sitting Flexion 96 Abduction 90 External Rotation at 0 degrees Abduction 38 Internal Rotation Behind Back (text) L2 PT-OP-L Special Tests Start: 01/10/22 15:07 Freq: Status: Active Protocol: Document 01/10/22 14:30 DCW (Rec: 01/10/22 15:15 DCW [id number]) Special Tests Shoulder Special Tests Yergason's Biceps Test Results Positive L Speed's Biceps Test Results Negative Painful Arc Test Results Negative Passive ER Rotator Cuff Test Results Negative Lift-Off Rotator Cuff Test Results Negative [place] Impingement Test Results Positive L Grind Labrum Test Results Positive L Drop Arm Rotator Cuff Test Results Negative Clunk Test Test Results Positive L Belly Press Test Results Positive L AC Joint Compression Test Results Negative PT-OP-M Strength Start: 01/10/22 15:07 Freq: Status: Active Protocol: Document 01/10/22 14:30 DCW (Rec: 01/10/22 17:51 [facility] [id number]) Shoulder Strength Shoulder Manual Muscle Testing Right Flexion 4- Good- Abduction (C5) 4 Good External Rotation 4 Good Internal Rotation 4 Good Left Flexion 3 Fair Abduction (C5) 3 Fair External Rotation 4 Good Internal Rotation 4 Good PT-OP-T Assessment and Plan Start: 01/10/22 15:07 Freq: Status: Active Protocol: Document 01/10/22 14:30 DCW (Rec: 01/10/22 17:51 [facility] [id number]) Physical Therapy Assessment Rehab Potential Rehabilitation Potential Good Evaluation Complexity Number of Personal Factors/Comorbidities 3 or More Number of Body Systems Impaired 4 or More Clinical Presentation at Evaluation Evolving Impairments Impairments Functional Activities, Functional Mobility,Pain,ROM, Soft Tissue Mobility,Strength, Tone Goals Three Impairment Pt displays limited left shoulder active range of motion Correction Goal (LTG) Pt to improve left shoulder AROM to >110? flexion and abduction to improve ability to reach overhead to kitchen cabinets. 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 LTG Duration 03/21/22 One Impairment Pt does not have an appropriate home exercise program Short Term Goal (STG) Pt to be independent and compliant with an appropriate HEP STG Duration 02/14/22 Assessment Summary Assessment Pt presents with signs and symptoms consistent with referring diagnosis of shoulder bursitis, as well as general degenerative joint disease and possible bicipital tendonitis. Pt fairly limited with both strength and RO in her left shoulder. Special testing positive for biceps tendon involvement and degenerative changes. Pt additionally exhibits increased tone and tenderness in left r/c and parascapular musculature. Pt should benefit from general strengthening and mobilization of her shoulder girdle, as well as potential modalities for bursitis and tendonitis. Potential is somewhat limited by severe thoracic kyphosis and scoliosis limiting her shoulder mobility at baseline due to fairly severe forward posturing. Physical Therapy Plan Frequency and Duration Frequency of Treatment 2x/Week Duration of treatment (weeks) 10 Plan of Care Start Date 01/10/22 Plan of Care End Date 03/21/22 Therapeutic Interventions Therapeutic Interventions Home Exercise Program,Joint Mobilizations,Manual Therapy, Patient/Caregiver Education, Self-Care/Home Management,Soft Tissue Mobilization, Therapeutic Activities, Therapeutic Exercises Modalities Cold Pack/Ice Massage,Electric Stimulation,Hot Packs, Ultrasound Next Visit Focus/Plan Next Note Type Treatment Note Next Visit Plan GH mobs, Passive/active ROM, flexibility, strengthening.
--- NOTE | 2022-01-10 17:52 | PT.OPPOC ---
Physical, Occupational & Speech Therapy At [facility] Current Diagnoses Pain in left shoulder (01/10/22) Stiffness of left shoulder, not elsewhere classified (01/10/22) Bicipital tendinitis, left shoulder (01/10/22) Bursitis of left shoulder (01/10/22) Visit Care Team Role Provider Type Jia Sheridan MD Family Provider Physician Primary Care Provider Specialty: Family Practice Address: [address] [place] [address], [facility] [place], [address] Email: [email or web address] Ajay Dozier MD Attending Provider Physician Referring Provider Specialty: Orthopedics Orthopedic Surgery Address: [address] [place] [address], [id number] Email: [email or web address] Plan Of Care PT-OP-T Assessment and Plan Start: 01/10/22 15:07 Freq: Status: Active Protocol: Document 01/10/22 14:30 DCW (Rec: 01/10/22 17:51 DCW [id number]) Physical Therapy Assessment Rehab Potential Rehabilitation Potential Good Evaluation Complexity Number of Personal Factors/Comorbidities 3 or More Number of Body Systems Impaired 4 or More Clinical Presentation at Evaluation Evolving Impairments Impairments Functional Activities, Functional Mobility,Pain,ROM, Soft Tissue Mobility,Strength, Tone Goals Three Impairment Pt displays limited left shoulder active range of motion Snf Goal (LTG) Pt to improve left shoulder AROM to >110? flexion and abduction to improve ability to reach overhead to kitchen cabinets. 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 LTG Duration 03/21/22 One Impairment Pt does not have an appropriate home exercise program Short Term Goal (STG) Pt to be independent and compliant with an appropriate HEP STG Duration 02/14/22 Assessment Summary Assessment Pt presents with signs and symptoms consistent with referring diagnosis of shoulder bursitis, as well as general degenerative joint disease and possible bicipital tendonitis. Pt fairly limited with both strength and ROM in her left shoulder. Special testing positive for biceps tendon involvement and degenerative changes. Pt additionally exhibits increased tone and tenderness in left r/c and parascapular musculature. Pt should benefit from general strengthening and mobilization of her shoulder girdle, as well as potential modalities for bursitis and tendonitis. Potential is somewhat limited by severe thoracic kyphosis and scoliosis limiting her shoulder mobility at baseline due to fairly severe forward posturing. Physical Therapy Plan Frequency and Duration Frequency of Treatment 2x/Week Duration of treatment (weeks) 10 Plan of Care Start Date 01/10/22 Plan of Care End Date 03/21/22 Therapeutic Interventions Therapeutic Interventions Home Exercise Program,Joint Mobilizations,Manual Therapy, Patient/Caregiver Education, Self-Care/Home Management,Soft Tissue Mobilization, Therapeutic Activities, Therapeutic Exercises Modalities Cold Pack/Ice Massage,Electric Stimulation,Hot Packs, Ultrasound Next Visit Focus/Plan Next Note Type Treatment Note Next Visit Plan GH mobs, Passive/active ROM, flexibility, strengthening. Plan of Care Dates Plan of Care Start Date 01/10/22 Plan of Care End Date 03/21/22 Electronically Signed by: Wallace Wilson, PT 01/10/22 [id number] If you are in agreement with this Plan of Care, please return a signed and dated copy. I have reviewed this Plan of Care and certify that the skilled therapy services above are required to meet the patient?s needs. Physician Signature Date Printed Name and Credentials Clinical Instructor Signature Printed Name and Credentials
--- NOTE | 2022-01-16 15:14 | PT.OTN ---
Current Diagnoses Pain in left shoulder (01/16/22) Stiffness of left shoulder, not elsewhere classified (01/16/22) Bicipital tendinitis, left shoulder (01/16/22) Bursitis of left shoulder (01/16/22) Physical Therapy Treatment Note PT-OP-A Visit Information Start: 01/10/22 15:07 Freq: Status: Active Protocol: Document 01/16/22 14:30 DCW (Rec: 01/16/22 15:14 DCW [id number]) Out-Patient Physical Therapy Visit Information Visit Information Visit Type Treatment Note Visit Start Time 14:30 Visit Stop Time 15:15 Total Visit Minutes 45 Visit Number 2 Number of ADMINISTRATION PHYSICIAN Visits 0 Evaluation Information Evaluation Date 01/10/22 PT-OP-B Current Condition Start: 01/10/22 15:07 Freq: Status: Active Protocol: Document 01/10/22 14:30 DCW (Rec: 01/10/22 17:51 DCW [id number]) Current Condition History of Current Condition Onset Date 3-4 month history Current Complaints Left shoulder pain and stiffness History of Current Condition Pt is an 86 year old female well known to this clinic presenting with complaints of left shoulder pain and stiffness. 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 Reports she received an injection from Dr Kunz in her shoulder six weeks ago, and has not felt that there has been much improvement. At baseline, pt additionally has severe thoracic kyphosis and scoliosis, with also results in limited shoulder ROM bilaterally due to severe rounded shoulder posturing. Prior Treatments and Tests Pt has been seen frequently at this facility for prior PT on various body parts, including her back, her posture, and her balance, with varying degrees of success. Treatment Goals Patient/Caregiver Goals I'd like to get back the use of my left arm. PT-OP-C Subjective Start: 01/10/22 15:07 Freq: Status: Active Protocol: Document 01/16/22 14:30 DCW (Rec: 01/16/22 15:14 DCW [id number]) OP-PT Subjective Patient Comments Patient Comments I'm annoyed with everything today, mainly myself. PT-OP-E Functional Tests Start: 01/10/22 15:07 Freq: Status: Active Protocol: Document 01/10/22 14:30 DCW (Rec: 01/10/22 15:11 DCW [id number]) Functional Tests Apley's Scratch Test Action 1- Left Lateral opposite shoulder Action 1- Right Posterior opposite shoulder Action 2- Left Left upper trap Action 2- Right T4 Action 3- Left L2 Action 3- Right T10 PT-OP-F Manual Assessment Start: 01/10/22 15:07 Freq: Status: Active Protocol: Document 01/10/22 14:30 DCW (Rec: 01/10/22 15:11 DCW [id number]) Manual Assessments Soft Tissue Assessment Soft Tissue Mobility Assessment Moderate tone with tenderness to palpation 3/4: wincing and withdraw along left subscap, infraspinatus, rhomboids Joint Mobility Assessment Joint Mobility Assessment Moderate-severe crepitus and grinding with all passive mobilization of left GH PT-OP-K Range of Motion Start: 01/10/22 15:07 Freq: Status: Active Protocol: Document 01/10/22 14:30 DCW (Rec: 01/10/22 15:15 DCW [id number]) Shoulder Goniometric Range of Motion Shoulder Right Active Shoulder ROM WFL No Testing Position Sitting Flexion 134 Abduction 112 External Rotation at 0 degrees Abduction 53 Internal Rotation Behind Back (text) T10 Left Passive Shoulder ROM WFL No Testing Position Sitting Flexion 122 Abduction 105 External Rotation at 0 degrees Abduction 53 Left Active Shoulder ROM WFL No Testing Position Sitting Flexion 96 Abduction 90 External Rotation at 0 degrees Abduction 38 Internal Rotation Behind Back (text) L2 PT-OP-L Special Tests Start: 01/10/22 15:07 Freq: Status: Active Protocol: Document 01/10/22 14:30 DCW (Rec: 01/10/22 15:15 DCW [id number]) Special Tests Shoulder Special Tests Yergason's Biceps Test Results Positive L Speed's Biceps Test Results Negative Painful Arc Test Results Negative Passive ER Rotator Cuff Test Results Negative Lift-Off Rotator Cuff Test Results Negative Parish Jett Impingement Test Results Positive L Grind Labrum Test Results Positive L Drop Arm Rotator Cuff Test Results Negative Clunk Test Test Results Positive L Belly Press Test Results Positive L AC Joint Compression Test Results Negative PT-OP-M Strength Start: 01/10/22 15:07 Freq: Status: Active Protocol: Document 01/10/22 14:30 DCW (Rec: 01/10/22 17:51 DCW [id number]) Shoulder Strength Shoulder Manual Muscle Testing Right Flexion 4- Good- Abduction (C5) 4 Good External Rotation 4 Good Internal Rotation 4 Good Left Flexion 3 Fair Abduction (C5) 3 Fair External Rotation 4 Good Internal Rotation 4 Good PT-OP-Q Treatments Start: 01/10/22 15:07 Freq: Status: Active Protocol: Document 01/16/22 14:30 DCW (Rec: 01/16/22 15:14 DCW [id number]) Cardio Equipment Upper Body Ergometer (UBE) Duration (Minutes) 5 RPM 60 Seat Position 12 Height 2 Therapeutic Exercises Sitting Exercises Rows Sitting Exercise Name Rows Side bilateral Resistance Lv 2 Comments Therapist-anchored Lat [place] Sitting Exercise Name Lat [place] Side bilateral Resistance Lv 2 Comments Therapist-anchored Chest press Sitting Exercise Name Chest Press Resistance 1# Equipment Used PVC Pulleys Sitting Exercise Name PROM GH Flexion Side bilateral Standing Exercises PROM Standing Exercise Name PROM Flexion/Abduction /c PVC Side left Manual Therapy Treatment Soft Tissue Mobilization Parascapulars Body Location L Infraspinatus, Subscap Mobilization Type Sustained Pressure,Trigger Point Release Intensity/Depth Moderate Body Position Sitting Joint Mobilizations GH Joint L GH Direction Inf Grade III Body Position Sitting PT-OP-T Assessment and Plan Start: 01/10/22 15:07 Freq: Status: Active Protocol: Document 01/16/22 14:30 DCW (Rec: 01/16/22 15:14 DCW [id number]) Physical Therapy Assessment Impairments Impairments Functional Activities, Functional Mobility,Pain,ROM, Soft Tissue Mobility,Strength, Tone Goals Three Impairment Pt displays limited left shoulder active range of motion Studio Artist Goal (LTG) Pt to improve left shoulder AROM to >110? flexion and abduction to improve ability to reach overhead to kitchen cabinets. 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 LTG Duration 03/21/22 One Impairment Pt does not have an appropriate home exercise program Short Term Goal (STG) Pt to be independent and compliant with an appropriate HEP STG Duration 02/14/22 Assessment Summary Assessment Pt tolerated treatment well, clearly fairly tender with STM in parascapular areas. Limited PROM mainly due to pain. Will add wand exercises to HEP next visit. Physical Therapy Plan Frequency and Duration Frequency of Treatment 2x/Week Duration of treatment (weeks) 10 Plan of Care Start Date 01/10/22 Plan of Care End Date 03/21/22 Therapeutic Interventions Therapeutic Interventions Home Exercise Program,Joint Mobilizations,Manual Therapy, Patient/Caregiver Education, Self-Care/Home Management,Soft Tissue Mobilization, Therapeutic Activities, Therapeutic Exercises Modalities Cold Pack/Ice Massage,Electric Stimulation,Hot Packs, Ultrasound Next Visit Focus/Plan Next Note Type Treatment Note Next Visit Plan GH mobs, Passive/active ROM, flexibility, strengthening.
--- NOTE | 2022-01-19 17:25 | PT.OTN ---
Current Diagnoses Pain in left shoulder (01/19/22) Stiffness of left shoulder, not elsewhere classified (01/19/22) Bicipital tendinitis, left shoulder (01/19/22) Bursitis of left shoulder (01/19/22) Physical Therapy Treatment Note PT-OP-A Visit Information Start: 01/10/22 15:07 Freq: Status: Active Protocol: Document 01/19/22 16:45 DCW (Rec: 01/19/22 17:25 DCW [id number]) Out-Patient Physical Therapy Visit Information Visit Information Visit Type Treatment Note Visit Start Time 16:45 Visit Stop Time 17:30 Total Visit Minutes 45 Visit Number 3 Number of ORGANIC EXTRACTIONS TECHNICIAN Visits 0 Evaluation Information Evaluation Date 01/10/22 PT-OP-B Current Condition Start: 01/10/22 15:07 Freq: Status: Active Protocol: Document 01/10/22 14:30 DCW (Rec: 01/10/22 17:51 DCW [id number]) Current Condition History of Current Condition Onset Date 3-4 month history Current Complaints Left shoulder pain and stiffness History of Current Condition Pt is an 86 year old female well known to this clinic presenting with complaints of left shoulder pain and stiffness. Pt reports she is unable to reach her arm overhead, has difficulty lowering items using her left arm, and will frequently lose horse buyer on her laundry basket with her left arm, resulting in her laundry dumping out. Reports she received an injection from Dr Kunz in her shoulder six weeks ago, and has not felt that there has been much improvement. At baseline, pt additionally has severe thoracic kyphosis and scoliosis, with also results in limited shoulder ROM bilaterally due to severe rounded shoulder posturing. Prior Treatments and Tests Pt has been seen frequently at this facility for prior PT on various body parts, including her back, her posture, and her balance, with varying degrees of success. Treatment Goals Patient/Caregiver Goals I'd like to get back the use of my left arm. PT-OP-C Subjective Start: 01/10/22 15:07 Freq: Status: Active Protocol: Document 01/19/22 16:45 DCW (Rec: 01/19/22 17:25 DCW [id number]) OP-PT Subjective Patient Comments Patient Comments Pt very tired today, notes she slept poorly last night. PT-OP-E Functional Tests Start: 01/10/22 15:07 Freq: Status: Active Protocol: Document 01/10/22 14:30 DCW (Rec: 01/10/22 15:11 DCW [id number]) Functional Tests Apley's Scratch Test Action 1- Left Lateral opposite shoulder Action 1- Right Posterior opposite shoulder Action 2- Left Left upper trap Action 2- Right T4 Action 3- Left L2 Action 3- Right T10 PT-OP-F Manual Assessment Start: 01/10/22 15:07 Freq: Status: Active Protocol: Document 01/10/22 14:30 DCW (Rec: 01/10/22 15:11 DCW [id number]) Manual Assessments Soft Tissue Assessment Soft Tissue Mobility Assessment Moderate tone with tenderness to palpation 3/4: wincing and withdraw along left subscap, infraspinatus, rhomboids Joint Mobility Assessment Joint Mobility Assessment Moderate-severe crepitus and grinding with all passive mobilization of left GH PT-OP-K Range of Motion Start: 01/10/22 15:07 Freq: Status: Active Protocol: Document 01/10/22 14:30 DCW (Rec: 01/10/22 15:15 DCW [id number]) Shoulder Goniometric Range of Motion Shoulder Right Active Shoulder ROM WFL No Testing Position Sitting Flexion 134 Abduction 112 External Rotation at 0 degrees Abduction 53 Internal Rotation Behind Back (text) T10 Left Passive Shoulder ROM WFL No Testing Position Sitting Flexion 122 Abduction 105 External Rotation at 0 degrees Abduction 53 Left Active Shoulder ROM WFL No Testing Position Sitting Flexion 96 Abduction 90 External Rotation at 0 degrees Abduction 38 Internal Rotation Behind Back (text) L2 PT-OP-L Special Tests Start: 01/10/22 15:07 Freq: Status: Active Protocol: Document 01/10/22 14:30 DCW (Rec: 01/10/22 15:15 DCW [id number]) Special Tests Shoulder Special Tests Yergason's Biceps Test Results Positive L Speed's Biceps Test Results Negative Painful Arc Test Results Negative Passive ER Rotator Cuff Test Results Negative Lift-Off Rotator Cuff Test Results Negative [place] Jett Impingement Test Results Positive L Grind Labrum Test Results Positive L Drop Arm Rotator Cuff Test Results Negative Clunk Test Test Results Positive L Belly Press Test Results Positive L AC Joint Compression Test Results Negative PT-OP-M Strength Start: 01/10/22 15:07 Freq: Status: Active Protocol: Document 01/10/22 14:30 DCW (Rec: 01/10/22 17:51 DCW [id number]) Shoulder Strength Shoulder Manual Muscle Testing Right Flexion 4- Good- Abduction (C5) 4 Good External Rotation 4 Good Internal Rotation 4 Good Left Flexion 3 Fair Abduction (C5) 3 Fair External Rotation 4 Good Internal Rotation 4 Good PT-OP-Q Treatments Start: 01/10/22 15:07 Freq: Status: Active Protocol: Document 01/19/22 16:45 DCW (Rec: 01/19/22 17:25 DCW [id number]) Cardio Equipment Upper Body Ergometer (UBE) Duration (Minutes) 5 RPM 60 Seat Position 13 Height 2 Therapeutic Exercises Sitting Exercises Rows Sitting Exercise Name Rows Side bilateral Resistance Lv 2 Comments Therapist-anchored Lat Pul[place]own Sitting Exercise Name Lat [place] Side bilateral Resistance Lv 2 Comments Therapist-anchored Chest press Sitting Exercise Name Chest Press Resistance 1# Equipment Used PVC Pulleys Sitting Exercise Name PROM GH Flexion Side bilateral Standing Exercises PROM Standing Exercise Name PROM Flexion/Abduction /c PVC Side left Manual Therapy Treatment Soft Tissue Mobilization Parascapulars Body Location L Infraspinatus, Subscap Mobilization Type Sustained Pressure,Trigger Point Release Intensity/Depth Moderate Body Position Sitting Joint Mobilizations GH Joint L GH Direction Inf Grade III Body Position Sitting PT-OP-T Assessment and Plan Start: 01/10/22 15:07 Freq: Status: Active Protocol: Document 01/19/22 16:45 DCW (Rec: 01/19/22 17:25 DCW [id number]) Physical Therapy Assessment Impairments Impairments Functional Activities, Functional Mobility,Pain,ROM, Soft Tissue Mobility,Strength, Tone Goals Three Impairment Pt displays limited left shoulder active range of motion Skilled Nursing Goal (LTG) Pt to improve left shoulder AROM to >110? flexion and abduction to improve ability to reach overhead to kitchen cabinets. 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 LTG Duration 03/21/22 One Impairment Pt does not have an appropriate home exercise program Short Term Goal (STG) Pt to be independent and compliant with an appropriate HEP STG Duration 02/14/22 Assessment Summary Assessment Pt continues to be fairly sore with limited shoulder ROM, however tolerated treatment very well today. Look to increase difficulty of strengthening activities as tolerated. Physical Therapy Plan Frequency and Duration Frequency of Treatment 2x/Week Duration of treatment (weeks) 10 Plan of Care Start Date 01/10/22 Plan of Care End Date 03/21/22 Therapeutic Interventions Therapeutic Interventions Home Exercise Program,Joint Mobilizations,Manual Therapy, Patient/Caregiver Education, Self-Care/Home Management,Soft Tissue Mobilization, Therapeutic Activities, Therapeutic Exercises Modalities Cold Pack/Ice Massage,Electric Stimulation,Hot Packs, Ultrasound Next Visit Focus/Plan Next Note Type Treatment Note Next Visit Plan GH mobs, Passive/active ROM, flexibility, strengthening.
--- NOTE | 2022-01-24 12:43 | PT.OTN ---
Current Diagnoses Pain in left shoulder (01/24/22) Stiffness of left shoulder, not elsewhere classified (01/24/22) Bicipital tendinitis, left shoulder (01/24/22) Bursitis of left shoulder (01/24/22) Physical Therapy Treatment Note PT-OP-A Visit Information Start: 01/10/22 15:07 Freq: Status: Active Protocol: Document 01/24/22 12:05 DCW (Rec: 01/24/22 12:42 DCW [id number]) Out-Patient Physical Therapy Visit Information Visit Information Visit Type Treatment Note Visit Start Time 12:05 Visit Stop Time 12:45 Total Visit Minutes 40 Visit Number 4 Number of SAFETY AND SECURITY OFFICER Visits 0 Evaluation Information Evaluation Date 01/10/22 PT-OP-B Current Condition Start: 01/10/22 15:07 Freq: Status: Active Protocol: Document 01/10/22 14:30 DCW (Rec: 01/10/22 17:51 DCW [id number]) Current Condition History of Current Condition Onset Date 3-4 month history Current Complaints Left shoulder pain and stiffness History of Current Condition Pt is an 86 year old female well known to this clinic presenting with complaints of left shoulder pain and stiffness. Pt reports she is unable to reach her arm overhead, has difficulty lowering items using her left arm, and will frequently lose die developer on her laundry basket with her left arm, resulting in her laundry dumping out. Reports she received an injection from Dr Kunz in her shoulder six weeks ago, and has not felt that there has been much improvement. At baseline, pt additionally has severe thoracic kyphosis and scoliosis, with also results in limited shoulder ROM bilaterally due to severe rounded shoulder posturing. Prior Treatments and Tests Pt has been seen frequently at this facility for prior PT on various body parts, including her back, her posture, and her balance, with varying degrees of success. Treatment Goals Patient/Caregiver Goals I'd like to get back the use of my left arm. PT-OP-C Subjective Start: 01/10/22 15:07 Freq: Status: Active Protocol: Document 01/24/22 12:05 DCW (Rec: 01/24/22 12:42 DCW [id number]) OP-PT Subjective Patient Comments Patient Comments Both shoulders are hurting today. PT-OP-E Functional Tests Start: 01/10/22 15:07 Freq: Status: Active Protocol: Document 01/10/22 14:30 DCW (Rec: 01/10/22 15:11 DCW [id number]) Functional Tests Apley's Scratch Test Action 1- Left Lateral opposite shoulder Action 1- Right Posterior opposite shoulder Action 2- Left Left upper trap Action 2- Right T4 Action 3- Left L2 Action 3- Right T10 PT-OP-F Manual Assessment Start: 01/10/22 15:07 Freq: Status: Active Protocol: Document 01/10/22 14:30 DCW (Rec: 01/10/22 15:11 DCW [id number]) Manual Assessments Soft Tissue Assessment Soft Tissue Mobility Assessment Moderate tone with tenderness to palpation 3/4: wincing and withdraw along left subscap, infraspinatus, rhomboids Joint Mobility Assessment Joint Mobility Assessment Moderate-severe crepitus and grinding with all passive mobilization of left GH PT-OP-K Range of Motion Start: 01/10/22 15:07 Freq: Status: Active Protocol: Document 01/10/22 14:30 DCW (Rec: 01/10/22 15:15 DCW [id number]) Shoulder Goniometric Range of Motion Shoulder Right Active Shoulder ROM WFL No Testing Position Sitting Flexion 134 Abduction 112 External Rotation at 0 degrees Abduction 53 Internal Rotation Behind Back (text) T10 Left Passive Shoulder ROM WFL No Testing Position Sitting Flexion 122 Abduction 105 External Rotation at 0 degrees Abduction 53 Left Active Shoulder ROM WFL No Testing Position Sitting Flexion 96 Abduction 90 External Rotation at 0 degrees Abduction 38 Internal Rotation Behind Back (text) L2 PT-OP-L Special Tests Start: 01/10/22 15:07 Freq: Status: Active Protocol: Document 01/10/22 14:30 DCW (Rec: 01/10/22 15:15 DCW [id number]) Special Tests Shoulder Special Tests Yergason's Biceps Test Results Positive L Speed's Biceps Test Results Negative Painful Arc Test Results Negative Passive ER Rotator Cuff Test Results Negative Lift-Off Rotator Cuff Test Results Negative [place] Jett Impingement Test Results Positive L Grind Labrum Test Results Positive L Drop Arm Rotator Cuff Test Results Negative Clunk Test Test Results Positive L Belly Press Test Results Positive L AC Joint Compression Test Results Negative PT-OP-M Strength Start: 01/10/22 15:07 Freq: Status: Active Protocol: Document 01/10/22 14:30 DCW (Rec: 01/10/22 17:51 DCW [id number]) Shoulder Strength Shoulder Manual Muscle Testing Right Flexion 4- Good- Abduction (C5) 4 Good External Rotation 4 Good Internal Rotation 4 Good Left Flexion 3 Fair Abduction (C5) 3 Fair External Rotation 4 Good Internal Rotation 4 Good PT-OP-Q Treatments Start: 01/10/22 15:07 Freq: Status: Active Protocol: Document 01/24/22 12:05 DCW (Rec: 01/24/22 12:42 DC [id number]) Cardio Equipment Upper Body Ergometer (UBE) Duration (Minutes) 5 RPM 60 Seat Position 13 Height 2 Therapeutic Exercises Sitting Exercises Rows Sitting Exercise Name Rows Side bilateral Resistance Lv 2 Comments Therapist-anchored Lat [place] Sitting Exercise Name Lat [place] Side bilateral Resistance Lv 2 Comments Therapist-anchored Chest press Sitting Exercise Name Chest Press Resistance 2# Equipment Used PVC Pulleys Sitting Exercise Name PROM GH Flexion Side bilateral Standing Exercises PROM Standing Exercise Name PROM Flexion/Abduction /c PVC Side left Manual Therapy Treatment Soft Tissue Mobilization Parascapulars Body Location B Infraspinatus, Subscap Mobilization Type Sustained Pressure,Trigger Point Release Intensity/Depth Moderate Body Position Sitting Joint Mobilizations GH Joint L GH Direction Inf Grade III Body Position Sitting PT-OP-T Assessment and Plan Start: 01/10/22 15:07 Freq: Status: Active Protocol: Document 01/24/22 12:05 DCW (Rec: 01/24/22 12:42 [facility] [id number]) Physical Therapy Assessment Impairments Impairments Functional Activities, Functional Mobility,Pain,ROM, Soft Tissue Mobility,Strength, Tone Goals Three Impairment Pt displays limited left shoulder active range of motion Cosmetic Counselor Goal (LTG) Pt to improve left shoulder AROM to >110? flexion and abduction to improve ability to reach overhead to kitchen cabinets. LTG Duration 03/21/22 Two Impairment Pt struggles carrying laundry basket due to L shoulder weakness Retirement Goal (LTG) Pt to demonstrate improved left shoulder MMT to at least 4-/5 in both flexion and abduction to improve carrying ability for insect control aide. LTG Duration 03/21/22 One Impairment Pt does not have an appropriate home exercise program Short Term Goal (STG) Pt to be independent and compliant with an appropriate HEP STG Duration 02/14/22 Assessment Summary Assessment Increased soreness bilaterally today, unclear what caused decline. Pt tolerated treatment well, decreased tone by end of session. Physical Therapy Plan Frequency and Duration Frequency of Treatment 2x/Week Duration of treatment (weeks) 10 Plan of Care Start Date 01/10/22 Plan of Care End Date 03/21/22 Therapeutic Interventions Therapeutic Interventions Home Exercise Program,Joint Mobilizations,Manual Therapy, Patient/Caregiver Education, Self-Care/Home Management,Soft Tissue Mobilization, Therapeutic Activities, Therapeutic Exercises Modalities Cold Pack/Ice Massage,Electric Stimulation,Hot Packs, Ultrasound Next Visit Focus/Plan Next Note Type Treatment Note Next Visit Plan GH mobs, Passive/active ROM, flexibility, strengthening.
--- NOTE | 2022-01-26 15:17 | PT.OTN ---
Current Diagnoses Pain in left shoulder (01/26/22) Stiffness of left shoulder, not elsewhere classified (01/26/22) Bicipital tendinitis, left shoulder (01/26/22) Bursitis of left shoulder (01/26/22) Physical Therapy Treatment Note PT-OP-A Visit Information Start: 01/10/22 15:07 Freq: Status: Active Protocol: Document 01/26/22 14:30 DCW (Rec: 01/26/22 15:17 DCW [id number]) Out-Patient Physical Therapy Visit Information Visit Information Visit Type Treatment Note Visit Start Time 14:30 Visit Stop Time 15:15 Total Visit Minutes 45 Visit Number 5 Number of SWITCH FOREMAN Visits 0 Evaluation Information Evaluation Date 01/10/22 PT-OP-B Current Condition Start: 01/10/22 15:07 Freq: Status: Active Protocol: Document 01/10/22 14:30 DCW (Rec: 01/10/22 17:51 DCW [id number]) Current Condition History of Current Condition Onset Date 3-4 month history Current Complaints Left shoulder pain and stiffness History of Current Condition Pt is an 86 year old female well known to this clinic presenting with complaints of left shoulder pain and stiffness. 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 Reports she received an injection from Dr Kunz in her shoulder six weeks ago, and has not felt that there has been much improvement. At baseline, pt additionally has severe thoracic kyphosis and scoliosis, with also results in limited shoulder ROM bilaterally due to severe rounded shoulder posturing. Prior Treatments and Tests Pt has been seen frequently at this facility for prior PT on various body parts, including her back, her posture, and her balance, with varying degrees of success. Treatment Goals Patient/Caregiver Goals I'd like to get back the use of my left arm. PT-OP-C Subjective Start: 01/10/22 15:07 Freq: Status: Active Protocol: Document 01/26/22 14:30 DCW (Rec: 01/26/22 15:17 DCW [id number]) OP-PT Subjective Patient Comments Patient Comments My right one (shoulder) is worse than my left for some reason. Taking off my jacket is uncomfortable. Putting my seat belt on is really uncomfortable. PT-OP-E Functional Tests Start: 01/10/22 15:07 Freq: Status: Active Protocol: Document 01/10/22 14:30 DCW (Rec: 01/10/22 15:11 DCW [id number]) Functional Tests Apley's Scratch Test Action 1- Left Lateral opposite shoulder Action 1- Right Posterior opposite shoulder Action 2- Left Left upper trap Action 2- Right T4 Action 3- Left L2 Action 3- Right T10 PT-OP-F Manual Assessment Start: 01/10/22 15:07 Freq: Status: Active Protocol: Document 01/10/22 14:30 DCW (Rec: 01/10/22 15:11 DCW [id number]) Manual Assessments Soft Tissue Assessment Soft Tissue Mobility Assessment Moderate tone with tenderness to palpation 3/4: wincing and withdraw along left subscap, infraspinatus, rhomboids Joint Mobility Assessment Joint Mobility Assessment Moderate-severe crepitus and grinding with all passive mobilization of left GH PT-OP-K Range of Motion Start: 01/10/22 15:07 Freq: Status: Active Protocol: Document 01/10/22 14:30 DCW (Rec: 01/10/22 15:15 DCW [id number]) Shoulder Goniometric Range of Motion Shoulder Right Active Shoulder ROM WFL No Testing Position Sitting Flexion 134 Abduction 112 External Rotation at 0 degrees Abduction 53 Internal Rotation Behind Back (text) T10 Left Passive Shoulder ROM WFL No Testing Position Sitting Flexion 122 Abduction 105 External Rotation at 0 degrees Abduction 53 Left Active Shoulder ROM WFL No Testing Position Sitting Flexion 96 Abduction 90 External Rotation at 0 degrees Abduction 38 Internal Rotation Behind Back (text) L2 PT-OP-L Special Tests Start: 01/10/22 15:07 Freq: Status: Active Protocol: Document 01/10/22 14:30 DCW (Rec: 01/10/22 15:15 DCW [id number]) Special Tests Shoulder Special Tests Yergason's Biceps Test Results Positive L Speed's Biceps Test Results Negative Painful Arc Test Results Negative Passive ER Rotator Cuff Test Results Negative Lift-Off Rotator Cuff Test Results Negative [place] Impingement Test Results Positive L Grind Labrum Test Results Positive L Drop Arm Rotator Cuff Test Results Negative Clunk Test Test Results Positive L Belly Press Test Results Positive L AC Joint Compression Test Results Negative PT-OP-M Strength Start: 01/10/22 15:07 Freq: Status: Active Protocol: Document 01/10/22 14:30 DCW (Rec: 01/10/22 17:51 DCW [id number]) Shoulder Strength Shoulder Manual Muscle Testing Right Flexion 4- Good- Abduction (C5) 4 Good External Rotation 4 Good Internal Rotation 4 Good Left Flexion 3 Fair Abduction (C5) 3 Fair External Rotation 4 Good Internal Rotation 4 Good PT-OP-Q Treatments Start: 01/10/22 15:07 Freq: Status: Active Protocol: Document 01/26/22 14:30 DCW (Rec: 01/26/22 15:17 DCW [id number]) Cardio Equipment Upper Body Ergometer (UBE) Duration (Minutes) 5 RPM 60 Seat Position 13 Height 2 Therapeutic Exercises Sitting Exercises Rows Sitting Exercise Name Rows Side bilateral Resistance Lv 2 Comments Therapist-anchored Lat [place] Sitting Exercise Name Lat [place] Side bilateral Resistance Lv 2 Comments Therapist-anchored Chest press Sitting Exercise Name Chest Press Resistance 2# Equipment Used PVC Pulleys Sitting Exercise Name PROM GH Flexion Side bilateral Standing Exercises PROM Standing Exercise Name PROM Flexion/Abduction /c PVC Side bilateral Manual Therapy Treatment Soft Tissue Mobilization Parascapulars Body Location B Infraspinatus, Subscap Mobilization Type Sustained Pressure,Trigger Point Release Intensity/Depth Moderate Body Position Sitting Joint Mobilizations GH Joint L GH Direction Inf Grade III Body Position Sitting PT-OP-T Assessment and Plan Start: 01/10/22 15:07 Freq: Status: Active Protocol: Document 01/26/22 14:30 DCW (Rec: 01/26/22 15:17 DCW [id number]) Physical Therapy Assessment Impairments Impairments Functional Activities, Functional Mobility,Pain,ROM, Soft Tissue Mobility,Strength, Tone Goals Three Impairment Pt displays limited left shoulder active range of motion Shelter Goal (LTG) Pt to improve left shoulder AROM to >110? flexion and abduction to improve ability to reach overhead to kitchen cabinets. LTG Duration 03/21/22 Two Impairment Pt struggles carrying laundry basket due to L shoulder weakness Chief Operating Engineer Goal (LTG) Pt to demonstrate improved left shoulder MMT to at least 4-/5 in both flexion and abduction to improve carrying ability for bottom sander. LTG Duration 03/21/22 One Impairment Pt does not have an appropriate home exercise program Short Term Goal (STG) Pt to be independent and compliant with an appropriate HEP STG Duration 02/14/22 Assessment Summary Assessment Pt appears to be showing improving PROM with therapeutic activities, however continues to complain of worsening pain and stiffness when performing ADLs Physical Therapy Plan Frequency and Duration Frequency of Treatment 2x/Week Duration of treatment (weeks) 10 Plan of Care Start Date 01/10/22 Plan of Care End Date 03/21/22 Therapeutic Interventions Therapeutic Interventions Home Exercise Program,Joint Mobilizations,Manual Therapy, Patient/Caregiver Education, Self-Care/Home Management,Soft Tissue Mobilization, Therapeutic Activities, Therapeutic Exercises Modalities Cold Pack/Ice Massage,Electric Stimulation,Hot Packs, Ultrasound Next Visit Focus/Plan Next Note Type Treatment Note Next Visit Plan GH mobs, Passive/active ROM, flexibility, strengthening.
--- NOTE | 2022-01-31 15:15 | PT.OTN ---
Current Diagnoses Pain in left shoulder (01/31/22) Stiffness of left shoulder, not elsewhere classified (01/31/22) Bicipital tendinitis, left shoulder (01/31/22) Bursitis of left shoulder (01/31/22) Physical Therapy Treatment Note PT-OP-A Visit Information Start: 01/10/22 15:07 Freq: Status: Active Protocol: Document 01/31/22 14:36 DCW (Rec: 01/31/22 15:14 DCW [id number]) Out-Patient Physical Therapy Visit Information Visit Information Visit Type Treatment Note Visit Start Time 14:36 Visit Stop Time 15:15 Total Visit Minutes 39 Visit Number 6 Number of SENIOR INFORMATICA ETL DEVELOPER Visits 0 Evaluation Information Evaluation Date 01/10/22 PT-OP-B Current Condition Start: 01/10/22 15:07 Freq: Status: Active Protocol: Document 01/10/22 14:30 DCW (Rec: 01/10/22 17:51 DCW [id number]) Current Condition History of Current Condition Onset Date 3-4 month history Current Complaints Left shoulder pain and stiffness History of Current Condition Pt is an 86 year old female well known to this clinic presenting with complaints of left shoulder pain and stiffness. 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 Reports she received an injection from Dr Kunz in her shoulder six weeks ago, and has not felt that there has been much improvement. At baseline, pt additionally has severe thoracic kyphosis and scoliosis, with also results in limited shoulder ROM bilaterally due to severe rounded shoulder posturing. Prior Treatments and Tests Pt has been seen frequently at this facility for prior PT on various body parts, including her back, her posture, and her balance, with varying degrees of success. Treatment Goals Patient/Caregiver Goals I'd like to get back the use of my left arm. PT-OP-C Subjective Start: 01/10/22 15:07 Freq: Status: Active Protocol: Document 01/31/22 14:36 DCW (Rec: 01/31/22 15:14 DCW [id number]) OP-PT Subjective Patient Comments Patient Comments I was up quite a bit last night. My shoulder was bothering me, and now my hip is bothering me. PT-OP-E Functional Tests Start: 01/10/22 15:07 Freq: Status: Active Protocol: Document 01/10/22 14:30 DCW (Rec: 01/10/22 15:11 DCW [id number]) Functional Tests Apley's Scratch Test Action 1- Left Lateral opposite shoulder Action 1- Right Posterior opposite shoulder Action 2- Left Left upper trap Action 2- Right T4 Action 3- Left L2 Action 3- Right T10 PT-OP-F Manual Assessment Start: 01/10/22 15:07 Freq: Status: Active Protocol: Document 01/10/22 14:30 DCW (Rec: 01/10/22 15:11 DCW [id number]) Manual Assessments Soft Tissue Assessment Soft Tissue Mobility Assessment Moderate tone with tenderness to palpation 3/4: wincing and withdraw along left subscap, infraspinatus, rhomboids Joint Mobility Assessment Joint Mobility Assessment Moderate-severe crepitus and grinding with all passive mobilization of left GH PT-OP-K Range of Motion Start: 01/10/22 15:07 Freq: Status: Active Protocol: Document 01/10/22 14:30 DCW (Rec: 01/10/22 15:15 DCW [id number]) Shoulder Goniometric Range of Motion Shoulder Right Active Shoulder ROM WFL No Testing Position Sitting Flexion 134 Abduction 112 External Rotation at 0 degrees Abduction 53 Internal Rotation Behind Back (text) T10 Left Passive Shoulder ROM WFL No Testing Position Sitting Flexion 122 Abduction 105 External Rotation at 0 degrees Abduction 53 Left Active Shoulder ROM WFL No Testing Position Sitting Flexion 96 Abduction 90 External Rotation at 0 degrees Abduction 38 Internal Rotation Behind Back (text) L2 PT-OP-L Special Tests Start: 01/10/22 15:07 Freq: Status: Active Protocol: Document 01/10/22 14:30 DCW (Rec: 01/10/22 15:15 DCW [id number]) Special Tests Shoulder Special Tests Yergason's Biceps Test Results Positive L Speed's Biceps Test Results Negative Painful Arc Test Results Negative Passive ER Rotator Cuff Test Results Negative Lift-Off Rotator Cuff Test Results Negative [place] Impingement Test Results Positive L Grind Labrum Test Results Positive L Drop Arm Rotator Cuff Test Results Negative Clunk Test Test Results Positive L Belly Press Test Results Positive L AC Joint Compression Test Results Negative PT-OP-M Strength Start: 01/10/22 15:07 Freq: Status: Active Protocol: Document 01/10/22 14:30 DCW (Rec: 01/10/22 17:51 DCW [id number]) Shoulder Strength Shoulder Manual Muscle Testing Right Flexion 4- Good- Abduction (C5) 4 Good External Rotation 4 Good Internal Rotation 4 Good Left Flexion 3 Fair Abduction (C5) 3 Fair External Rotation 4 Good Internal Rotation 4 Good PT-OP-Q Treatments Start: 01/10/22 15:07 Freq: Status: Active Protocol: Document 01/31/22 14:36 DCW (Rec: 01/31/22 15:14 DCW [id number]) Cardio Equipment Upper Body Ergometer (UBE) Duration (Minutes) 5 RPM 60 Seat Position 13 Height 2 Therapeutic Exercises Sitting Exercises Rows Sitting Exercise Name Rows Side bilateral Resistance Lv 2 Comments Therapist-anchored Lat [place] Sitting Exercise Name Lat [place] Side bilateral Resistance Lv 2 Comments Therapist-anchored Chest press Sitting Exercise Name Chest Press Resistance 2# Equipment Used PVC Pulleys Sitting Exercise Name PROM GH Flexion Side bilateral Standing Exercises PROM Standing Exercise Name PROM Flexion/Abduction /c PVC Side bilateral Manual Therapy Treatment Soft Tissue Mobilization Parascapulars Body Location B Infraspinatus, Subscap Mobilization Type Sustained Pressure,Trigger Point Release Intensity/Depth Moderate Body Position Sitting Joint Mobilizations GH Joint L GH Direction Inf Grade III Body Position Sitting PT-OP-T Assessment and Plan Start: 01/10/22 15:07 Freq: Status: Active Protocol: Document 01/31/22 14:36 DCW (Rec: 01/31/22 15:14 DCW [id number]) Physical Therapy Assessment Impairments Impairments Functional Activities, Functional Mobility,Pain,ROM, Soft Tissue Mobility,Strength, Tone Goals Three Impairment Pt displays limited left shoulder active range of motion Residential Goal (LTG) Pt to improve left shoulder AROM to >110? flexion and abduction to improve ability to reach overhead to kitchen cabinets. LTG Duration 03/21/22 Two Impairment Pt struggles carrying laundry basket due to L shoulder weakness Vehicle Maintenance Technician Goal (LTG) Pt to demonstrate improved left shoulder MMT to at least 4-/5 in both flexion and abduction to improve carrying ability for household assistant. LTG Duration 03/21/22 One Impairment Pt does not have an appropriate home exercise program Short Term Goal (STG) Pt to be independent and compliant with an appropriate HEP STG Duration 02/14/22 Assessment Summary Assessment Pt continues to be very sore with all activities in PT, noticeable worsening of right shoulder now, decreased ROM, increased pain. Physical Therapy Plan Frequency and Duration Frequency of Treatment 2x/Week Duration of treatment (weeks) 10 Plan of Care Start Date 01/10/22 Plan of Care End Date 03/21/22 Therapeutic Interventions Therapeutic Interventions Home Exercise Program,Joint Mobilizations,Manual Therapy, Patient/Caregiver Education, Self-Care/Home Management,Soft Tissue Mobilization, Therapeutic Activities, Therapeutic Exercises Modalities Cold Pack/Ice Massage,Electric Stimulation,Hot Packs, Ultrasound Next Visit Focus/Plan Next Note Type Treatment Note Next Visit Plan GH mobs, Passive/active ROM, flexibility, strengthening.
--- NOTE | 2022-02-02 15:14 | PT.OTN ---
Current Diagnoses Pain in left shoulder (02/02/22) Stiffness of left shoulder, not elsewhere classified (02/02/22) Bicipital tendinitis, left shoulder (02/02/22) Bursitis of left shoulder (02/02/22) Physical Therapy Treatment Note PT-OP-A Visit Information Start: 01/10/22 15:07 Freq: Status: Active Protocol: Document 02/02/22 14:37 DCW (Rec: 02/02/22 15:14 DCW [id number]) Out-Patient Physical Therapy Visit Information Visit Information Visit Type Treatment Note Visit Start Time 14:37 Visit Stop Time 15:15 Total Visit Minutes 38 Visit Number 7 Number of ASSOCIATE MERCHANDISE PLANNER Visits 0 Evaluation Information Evaluation Date 01/10/22 PT-OP-B Current Condition Start: 01/10/22 15:07 Freq: Status: Active Protocol: Document 01/10/22 14:30 DCW (Rec: 01/10/22 17:51 DCW [id number]) Current Condition History of Current Condition Onset Date 3-4 month history Current Complaints Left shoulder pain and stiffness History of Current Condition Pt is an 86 year old female well known to this clinic presenting with complaints of left shoulder pain and stiffness. Pt reports she is unable to reach her arm overhead, has difficulty lowering items using her left arm, and will frequently lose internet network specialist on her laundry basket with her left arm, resulting in her laundry dumping out. Reports she received an injection from Dr Kunz in her shoulder six weeks ago, and has not felt that there has been much improvement. At baseline, pt additionally has severe thoracic kyphosis and scoliosis, with also results in limited shoulder ROM bilaterally due to severe rounded shoulder posturing. Prior Treatments and Tests Pt has been seen frequently at this facility for prior PT on various body parts, including her back, her posture, and her balance, with varying degrees of success. Treatment Goals Patient/Caregiver Goals I'd like to get back the use of my left arm. PT-OP-C Subjective Start: 01/10/22 15:07 Freq: Status: Active Protocol: Document 02/02/22 14:37 DCW (Rec: 02/02/22 15:14 DCW [id number]) OP-PT Subjective Patient Comments Patient Comments Pt notes shoulders are quite sore today, struggled getting jacket off. PT-OP-E Functional Tests Start: 01/10/22 15:07 Freq: Status: Active Protocol: Document 01/10/22 14:30 DCW (Rec: 01/10/22 15:11 DCW [id number]) Functional Tests Apley's Scratch Test Action 1- Left Lateral opposite shoulder Action 1- Right Posterior opposite shoulder Action 2- Left Left upper trap Action 2- Right T4 Action 3- Left L2 Action 3- Right T10 PT-OP-F Manual Assessment Start: 01/10/22 15:07 Freq: Status: Active Protocol: Document 01/10/22 14:30 DCW (Rec: 01/10/22 15:11 DCW [id number]) Manual Assessments Soft Tissue Assessment Soft Tissue Mobility Assessment Moderate tone with tenderness to palpation 3/4: wincing and withdraw along left subscap, infraspinatus, rhomboids Joint Mobility Assessment Joint Mobility Assessment Moderate-severe crepitus and grinding with all passive mobilization of left GH PT-OP-K Range of Motion Start: 01/10/22 15:07 Freq: Status: Active Protocol: Document 01/10/22 14:30 DCW (Rec: 01/10/22 15:15 DCW [id number]) Shoulder Goniometric Range of Motion Shoulder Right Active Shoulder ROM WFL No Testing Position Sitting Flexion 134 Abduction 112 External Rotation at 0 degrees Abduction 53 Internal Rotation Behind Back (text) T10 Left Passive Shoulder ROM WFL No Testing Position Sitting Flexion 122 Abduction 105 External Rotation at 0 degrees Abduction 53 Left Active Shoulder ROM WFL No Testing Position Sitting Flexion 96 Abduction 90 External Rotation at 0 degrees Abduction 38 Internal Rotation Behind Back (text) L2 PT-OP-L Special Tests Start: 01/10/22 15:07 Freq: Status: Active Protocol: Document 01/10/22 14:30 DCW (Rec: 01/10/22 15:15 DCW [id number]) Special Tests Shoulder Special Tests Yergason's Biceps Test Results Positive L Speed's Biceps Test Results Negative Painful Arc Test Results Negative Passive ER Rotator Cuff Test Results Negative Lift-Off Rotator Cuff Test Results Negative [place] Jett Impingement Test Results Positive L Grind Labrum Test Results Positive L Drop Arm Rotator Cuff Test Results Negative Clunk Test Test Results Positive L Belly Press Test Results Positive L AC Joint Compression Test Results Negative PT-OP-M Strength Start: 01/10/22 15:07 Freq: Status: Active Protocol: Document 01/10/22 14:30 DCW (Rec: 01/10/22 17:51 DCW [id number]) Shoulder Strength Shoulder Manual Muscle Testing Right Flexion 4- Good- Abduction (C5) 4 Good External Rotation 4 Good Internal Rotation 4 Good Left Flexion 3 Fair Abduction (C5) 3 Fair External Rotation 4 Good Internal Rotation 4 Good PT-OP-Q Treatments Start: 01/10/22 15:07 Freq: Status: Active Protocol: Document 02/02/22 14:37 DCW (Rec: 02/02/22 15:14 DCW [id number]) Cardio Equipment Upper Body Ergometer (UBE) Duration (Minutes) 5 RPM 60 Seat Position 13 Height 2 Therapeutic Exercises Sitting Exercises Rows Sitting Exercise Name Rows Side bilateral Resistance Lv 2 Comments Therapist-anchored Lat [place] Sitting Exercise Name Lat [place] Side bilateral Resistance Lv 2 Comments Therapist-anchored Chest press Sitting Exercise Name Chest Press Resistance 2# Equipment Used PVC Pulleys Sitting Exercise Name PROM GH Flexion Side bilateral Standing Exercises PROM Standing Exercise Name PROM Flexion/Abduction /c PVC Side bilateral Manual Therapy Treatment Soft Tissue Mobilization Parascapulars Body Location B Infraspinatus, Subscap Mobilization Type Sustained Pressure,Trigger Point Release Intensity/Depth Moderate Body Position Sitting Joint Mobilizations GH Joint L GH Direction Inf Grade III Body Position Sitting PT-OP-T Assessment and Plan Start: 01/10/22 15:07 Freq: Status: Active Protocol: Document 02/02/22 14:37 DCW (Rec: 02/02/22 15:14 DC [id number]) Physical Therapy Assessment Impairments Impairments Functional Activities, Functional Mobility,Pain,ROM, Soft Tissue Mobility,Strength, Tone Goals Three Impairment Pt displays limited left shoulder active range of motion Assisted Goal (LTG) Pt to improve left shoulder AROM to >110? flexion and abduction to improve ability to reach overhead to kitchen cabinets. 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 LTG Duration 03/21/22 One Impairment Pt does not have an appropriate home exercise program Short Term Goal (STG) Pt to be independent and compliant with an appropriate HEP STG Duration 02/14/22 Assessment Summary Assessment Pt struggling more today, increased tone and tenderness bilaterally. Physical Therapy Plan Frequency and Duration Frequency of Treatment 2x/Week Duration of treatment (weeks) 10 Plan of Care Start Date 01/10/22 Plan of Care End Date 03/21/22 Therapeutic Interventions Therapeutic Interventions Home Exercise Program,Joint Mobilizations,Manual Therapy, Patient/Caregiver Education, Self-Care/Home Management,Soft Tissue Mobilization, Therapeutic Activities, Therapeutic Exercises Modalities Cold Pack/Ice Massage,Electric Stimulation,Hot Packs, Ultrasound Next Visit Focus/Plan Next Note Type Treatment Note Next Visit Plan GH mobs, Passive/active ROM, flexibility, strengthening.
--- NOTE | 2022-02-07 15:13 | PT.OTN ---
Current Diagnoses Pain in left shoulder (02/07/22) Stiffness of left shoulder, not elsewhere classified (02/07/22) Bicipital tendinitis, left shoulder (02/07/22) Bursitis of left shoulder (02/07/22) Physical Therapy Treatment Note PT-OP-A Visit Information Start: 01/10/22 15:07 Freq: Status: Active Protocol: Document 02/07/22 14:30 DCW (Rec: 02/07/22 15:13 DCW [id number]) Out-Patient Physical Therapy Visit Information Visit Information Visit Type Treatment Note Visit Start Time 14:30 Visit Stop Time 15:15 Total Visit Minutes 45 Visit Number 8 Number of DATA ENTRY REPRESENTATIVE Visits 0 Evaluation Information Evaluation Date 01/10/22 PT-OP-B Current Condition Start: 01/10/22 15:07 Freq: Status: Active Protocol: Document 01/10/22 14:30 DCW (Rec: 01/10/22 17:51 DCW [id number]) Current Condition History of Current Condition Onset Date 3-4 month history Current Complaints Left shoulder pain and stiffness History of Current Condition Pt is an 86 year old female well known to this clinic presenting with complaints of left shoulder pain and stiffness. Pt reports she is unable to reach her arm overhead, has difficulty lowering items using her left arm, and will frequently lose wooden shade hardware installer on her laundry basket with her left arm, resulting in her laundry dumping out. Reports she received an injection from Dr Kunz in her shoulder six weeks ago, and has not felt that there has been much improvement. At baseline, pt additionally has severe thoracic kyphosis and scoliosis, with also results in limited shoulder ROM bilaterally due to severe rounded shoulder posturing. Prior Treatments and Tests Pt has been seen frequently at this facility for prior PT on various body parts, including her back, her posture, and her balance, with varying degrees of success. Treatment Goals Patient/Caregiver Goals I'd like to get back the use of my left arm. PT-OP-C Subjective Start: 01/10/22 15:07 Freq: Status: Active Protocol: Document 02/07/22 14:30 DCW (Rec: 02/07/22 15:13 DCW [id number]) OP-PT Subjective Patient Comments Patient Comments I'm between miserable and awful today. Admits that her shoulders are actually feeling better, she's more just mentally struggling today. PT-OP-E Functional Tests Start: 01/10/22 15:07 Freq: Status: Active Protocol: Document 01/10/22 14:30 DCW (Rec: 01/10/22 15:11 DCW [id number]) Functional Tests Apley's Scratch Test Action 1- Left Lateral opposite shoulder Action 1- Right Posterior opposite shoulder Action 2- Left Left upper trap Action 2- Right T4 Action 3- Left L2 Action 3- Right T10 PT-OP-F Manual Assessment Start: 01/10/22 15:07 Freq: Status: Active Protocol: Document 01/10/22 14:30 DCW (Rec: 01/10/22 15:11 DCW [id number]) Manual Assessments Soft Tissue Assessment Soft Tissue Mobility Assessment Moderate tone with tenderness to palpation 3/4: wincing and withdraw along left subscap, infraspinatus, rhomboids Joint Mobility Assessment Joint Mobility Assessment Moderate-severe crepitus and grinding with all passive mobilization of left GH PT-OP-K Range of Motion Start: 01/10/22 15:07 Freq: Status: Active Protocol: Document 01/10/22 14:30 DCW (Rec: 01/10/22 15:15 DCW [id number]) Shoulder Goniometric Range of Motion Shoulder Right Active Shoulder ROM WFL No Testing Position Sitting Flexion 134 Abduction 112 External Rotation at 0 degrees Abduction 53 Internal Rotation Behind Back (text) T10 Left Passive Shoulder ROM WFL No Testing Position Sitting Flexion 122 Abduction 105 External Rotation at 0 degrees Abduction 53 Left Active Shoulder ROM WFL No Testing Position Sitting Flexion 96 Abduction 90 External Rotation at 0 degrees Abduction 38 Internal Rotation Behind Back (text) L2 PT-OP-L Special Tests Start: 01/10/22 15:07 Freq: Status: Active Protocol: Document 01/10/22 14:30 DCW (Rec: 01/10/22 15:15 DCW [id number]) Special Tests Shoulder Special Tests Yergason's Biceps Test Results Positive L Speed's Biceps Test Results Negative Painful Arc Test Results Negative Passive ER Rotator Cuff Test Results Negative Lift-Off Rotator Cuff Test Results Negative [place] Impingement Test Results Positive L Grind Labrum Test Results Positive L Drop Arm Rotator Cuff Test Results Negative Clunk Test Test Results Positive L Belly Press Test Results Positive L AC Joint Compression Test Results Negative PT-OP-M Strength Start: 01/10/22 15:07 Freq: Status: Active Protocol: Document 01/10/22 14:30 DCW (Rec: 01/10/22 17:51 DCW [id number]) Shoulder Strength Shoulder Manual Muscle Testing Right Flexion 4- Good- Abduction (C5) 4 Good External Rotation 4 Good Internal Rotation 4 Good Left Flexion 3 Fair Abduction (C5) 3 Fair External Rotation 4 Good Internal Rotation 4 Good PT-OP-Q Treatments Start: 01/10/22 15:07 Freq: Status: Active Protocol: Document 02/07/22 14:30 DCW (Rec: 02/07/22 15:13 DCW [id number]) Cardio Equipment Upper Body Ergometer (UBE) Duration (Minutes) 5 RPM 60 Seat Position 12 Height 2 Therapeutic Exercises Sitting Exercises Internal Rotation Sitting Exercise Name Shoulder IR Side bilateral Resistance Lv 2 External Rotation Sitting Exercise Name Shoulder ER Side bilateral Resistance Lv 2 Rows Sitting Exercise Name Rows Side bilateral Resistance Lv 2 Comments Therapist-anchored Lat [place] Sitting Exercise Name Lat [place] Side bilateral Resistance Lv 2 Comments Therapist-anchored Chest press Sitting Exercise Name Chest Press Resistance 2# Equipment Used PVC Pulleys Sitting Exercise Name PROM GH Flexion Side bilateral Standing Exercises PROM Standing Exercise Name PROM Flexion/Abduction /c PVC Side bilateral Manual Therapy Treatment Soft Tissue Mobilization Parascapulars Body Location B Infraspinatus, Subscap Mobilization Type Sustained Pressure,Trigger Point Release Intensity/Depth Moderate Body Position Sitting Joint Mobilizations GH Joint L GH Direction Inf Grade III Body Position Sitting PT-OP-T Assessment and Plan Start: 01/10/22 15:07 Freq: Status: Active Protocol: Document 02/07/22 14:30 DCW (Rec: 02/07/22 15:13 DCW [id number]) Physical Therapy Assessment Impairments Impairments Functional Activities, Functional Mobility,Pain,ROM, Soft Tissue Mobility,Strength, Tone Goals Three Impairment Pt displays limited left shoulder active range of motion Nursing Home Goal (LTG) Pt to improve left shoulder AROM to >110? flexion and abduction to improve ability to reach overhead to kitchen cabinets. 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 LTG Duration 03/21/22 One Impairment Pt does not have an appropriate home exercise program Short Term Goal (STG) Pt to be independent and compliant with an appropriate HEP STG Duration 02/14/22 Assessment Summary Assessment Pt showing improvement from last week, although still struggling with ROM secondary to posture and pain. Physical Therapy Plan Frequency and Duration Frequency of Treatment 2x/Week Duration of treatment (weeks) 10 Plan of Care Start Date 01/10/22 Plan of Care End Date 03/21/22 Therapeutic Interventions Therapeutic Interventions Home Exercise Program,Joint Mobilizations,Manual Therapy, Patient/Caregiver Education, Self-Care/Home Management,Soft Tissue Mobilization, Therapeutic Activities, Therapeutic Exercises Modalities Cold Pack/Ice Massage,Electric Stimulation,Hot Packs, Ultrasound Next Visit Focus/Plan Next Note Type Treatment Note Next Visit Plan GH mobs, Passive/active ROM, flexibility, strengthening.
--- NOTE | 2022-02-09 15:16 | PT.OTN ---
Current Diagnoses Pain in left shoulder (02/09/22) Stiffness of left shoulder, not elsewhere classified (02/09/22) Bicipital tendinitis, left shoulder (02/09/22) Bursitis of left shoulder (02/09/22) Physical Therapy Treatment Note PT-OP-A Visit Information Start: 01/10/22 15:07 Freq: Status: Active Protocol: Document 02/09/22 14:30 DCW (Rec: 02/09/22 15:16 DCW [id number]) Out-Patient Physical Therapy Visit Information Visit Information Visit Type Treatment Note Visit Start Time 14:30 Visit Stop Time 15:15 Total Visit Minutes 45 Visit Number 9 Number of FINANCIAL COUNSELOR Visits 0 Evaluation Information Evaluation Date 01/10/22 PT-OP-B Current Condition Start: 01/10/22 15:07 Freq: Status: Active Protocol: Document 01/10/22 14:30 DCW (Rec: 01/10/22 17:51 DCW [id number]) Current Condition History of Current Condition Onset Date 3-4 month history Current Complaints Left shoulder pain and stiffness History of Current Condition Pt is an 86 year old female well known to this clinic presenting with complaints of left shoulder pain and stiffness. 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 Reports she received an injection from Dr Kunz in her shoulder six weeks ago, and has not felt that there has been much improvement. At baseline, pt additionally has severe thoracic kyphosis and scoliosis, with also results in limited shoulder ROM bilaterally due to severe rounded shoulder posturing. Prior Treatments and Tests Pt has been seen frequently at this facility for prior PT on various body parts, including her back, her posture, and her balance, with varying degrees of success. Treatment Goals Patient/Caregiver Goals I'd like to get back the use of my left arm. PT-OP-C Subjective Start: 01/10/22 15:07 Freq: Status: Active Protocol: Document 02/09/22 14:30 DCW (Rec: 02/09/22 15:16 DCW [id number]) OP-PT Subjective Patient Comments Patient Comments Pt feeling reasonable today. Notes shoulders feel achy today when taking her jacket off. PT-OP-E Functional Tests Start: 01/10/22 15:07 Freq: Status: Active Protocol: Document 01/10/22 14:30 DCW (Rec: 01/10/22 15:11 DCW [id number]) Functional Tests Apley's Scratch Test Action 1- Left Lateral opposite shoulder Action 1- Right Posterior opposite shoulder Action 2- Left Left upper trap Action 2- Right T4 Action 3- Left L2 Action 3- Right T10 PT-OP-F Manual Assessment Start: 01/10/22 15:07 Freq: Status: Active Protocol: Document 01/10/22 14:30 DCW (Rec: 01/10/22 15:11 DCW [id number]) Manual Assessments Soft Tissue Assessment Soft Tissue Mobility Assessment Moderate tone with tenderness to palpation 3/4: wincing and withdraw along left subscap, infraspinatus, rhomboids Joint Mobility Assessment Joint Mobility Assessment Moderate-severe crepitus and grinding with all passive mobilization of left GH PT-OP-K Range of Motion Start: 01/10/22 15:07 Freq: Status: Active Protocol: Document 01/10/22 14:30 DCW (Rec: 01/10/22 15:15 DCW [id number]) Shoulder Goniometric Range of Motion Shoulder Right Active Shoulder ROM WFL No Testing Position Sitting Flexion 134 Abduction 112 External Rotation at 0 degrees Abduction 53 Internal Rotation Behind Back (text) T10 Left Passive Shoulder ROM WFL No Testing Position Sitting Flexion 122 Abduction 105 External Rotation at 0 degrees Abduction 53 Left Active Shoulder ROM WFL No Testing Position Sitting Flexion 96 Abduction 90 External Rotation at 0 degrees Abduction 38 Internal Rotation Behind Back (text) L2 PT-OP-L Special Tests Start: 01/10/22 15:07 Freq: Status: Active Protocol: Document 01/10/22 14:30 DCW (Rec: 01/10/22 15:15 DCW [id number]) Special Tests Shoulder Special Tests Yergason's Biceps Test Results Positive L Speed's Biceps Test Results Negative Painful Arc Test Results Negative Passive ER Rotator Cuff Test Results Negative Lift-Off Rotator Cuff Test Results Negative [place] Impingement Test Results Positive L Grind Labrum Test Results Positive L Drop Arm Rotator Cuff Test Results Negative Clunk Test Test Results Positive L Belly Press Test Results Positive L AC Joint Compression Test Results Negative PT-OP-M Strength Start: 01/10/22 15:07 Freq: Status: Active Protocol: Document 01/10/22 14:30 DCW (Rec: 01/10/22 17:51 DCW [id number]) Shoulder Strength Shoulder Manual Muscle Testing Right Flexion 4- Good- Abduction (C5) 4 Good External Rotation 4 Good Internal Rotation 4 Good Left Flexion 3 Fair Abduction (C5) 3 Fair External Rotation 4 Good Internal Rotation 4 Good PT-OP-Q Treatments Start: 01/10/22 15:07 Freq: Status: Active Protocol: Document 02/09/22 14:30 DCW (Rec: 02/09/22 15:16 DCW [id number]) Cardio Equipment Upper Body Ergometer (UBE) Duration (Minutes) 5 RPM 60 Seat Position 12 Height 2 Therapeutic Exercises Sitting Exercises Internal Rotation Sitting Exercise Name Shoulder IR Side bilateral Resistance Lv 2 External Rotation Sitting Exercise Name Shoulder ER Side bilateral Resistance Lv 2 Rows Sitting Exercise Name Rows Side bilateral Resistance Lv 2 Comments Therapist-anchored Lat [place] Sitting Exercise Name Lat [place] Side bilateral Resistance Lv 2 Comments Therapist-anchored Chest press Sitting Exercise Name Chest Press Resistance 2# Equipment Used PVC Pulleys Sitting Exercise Name PROM GH Flexion Side bilateral Standing Exercises PROM Standing Exercise Name PROM Flexion/Abduction /c PVC Side bilateral Manual Therapy Treatment Soft Tissue Mobilization Parascapulars Body Location B Infraspinatus, Subscap Mobilization Type Sustained Pressure,Trigger Point Release Intensity/Depth Moderate Body Position Sitting Joint Mobilizations GH Joint L GH Direction Inf Grade III Body Position Sitting PT-OP-T Assessment and Plan Start: 01/10/22 15:07 Freq: Status: Active Protocol: Document 02/09/22 14:30 DCW (Rec: 02/09/22 15:16 [facility] [id number]) Physical Therapy Assessment Impairments Impairments Functional Activities, Functional Mobility,Pain,ROM, Soft Tissue Mobility,Strength, Tone Goals Three Impairment Pt displays limited left shoulder active range of motion Machine Learning Intern Goal (LTG) Pt to improve left shoulder AROM to >110? flexion and abduction to improve ability to reach overhead to kitchen cabinets. 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 LTG Duration 03/21/22 One Impairment Pt does not have an appropriate home exercise program Short Term Goal (STG) Pt to be independent and compliant with an appropriate HEP STG Duration 02/14/22 Assessment Summary Assessment Pt going much better overall today, improved strength and ROM bilaterally in shoulders, decrease in tenderness during STM. Physical Therapy Plan Frequency and Duration Frequency of Treatment 2x/Week Duration of treatment (weeks) 10 Plan of Care Start Date 01/10/22 Plan of Care End Date 03/21/22 Therapeutic Interventions Therapeutic Interventions Home Exercise Program,Joint Mobilizations,Manual Therapy, Patient/Caregiver Education, Self-Care/Home Management,Soft Tissue Mobilization, Therapeutic Activities, Therapeutic Exercises Modalities Cold Pack/Ice Massage,Electric Stimulation,Hot Packs, Ultrasound Next Visit Focus/Plan Next Note Type Treatment Note Next Visit Plan GH mobs, Passive/active ROM, flexibility, strengthening.
--- NOTE | 2022-02-14 15:14 | PT.OTN ---
Current Diagnoses Pain in left shoulder (02/14/22) Stiffness of left shoulder, not elsewhere classified (02/14/22) Bicipital tendinitis, left shoulder (02/14/22) Bursitis of left shoulder (02/14/22) Physical Therapy Treatment Note PT-OP-A Visit Information Start: 01/10/22 15:07 Freq: Status: Active Protocol: Document 02/14/22 14:30 DCW (Rec: 02/14/22 15:14 DCW [id number]) Out-Patient Physical Therapy Visit Information Visit Information Visit Type Treatment Note Visit Start Time 14:30 Visit Stop Time 15:15 Total Visit Minutes 45 Visit Number 10 Number of AUDIO VISUAL ARTS DIRECTOR Visits 0 Evaluation Information Evaluation Date 01/10/22 PT-OP-B Current Condition Start: 01/10/22 15:07 Freq: Status: Active Protocol: Document 01/10/22 14:30 DCW (Rec: 01/10/22 17:51 DCW [id number]) Current Condition History of Current Condition Onset Date 3-4 month history Current Complaints Left shoulder pain and stiffness History of Current Condition Pt is an 86 year old female well known to this clinic presenting with complaints of left shoulder pain and stiffness. 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 Reports she received an injection from Dr Kunz in her shoulder six weeks ago, and has not felt that there has been much improvement. At baseline, pt additionally has severe thoracic kyphosis and scoliosis, with also results in limited shoulder ROM bilaterally due to severe rounded shoulder posturing. Prior Treatments and Tests Pt has been seen frequently at this facility for prior PT on various body parts, including her back, her posture, and her balance, with varying degrees of success. Treatment Goals Patient/Caregiver Goals I'd like to get back the use of my left arm. PT-OP-C Subjective Start: 01/10/22 15:07 Freq: Status: Active Protocol: Document 02/14/22 14:30 DCW (Rec: 02/14/22 15:14 DCW [id number]) OP-PT Subjective Patient Comments Patient Comments Pt reports she is okay today , admits her shoulders are Feeling pretty good. PT-OP-E Functional Tests Start: 01/10/22 15:07 Freq: Status: Active Protocol: Document 01/10/22 14:30 DCW (Rec: 01/10/22 15:11 DCW [id number]) Functional Tests Apley's Scratch Test Action 1- Left Lateral opposite shoulder Action 1- Right Posterior opposite shoulder Action 2- Left Left upper trap Action 2- Right T4 Action 3- Left L2 Action 3- Right T10 PT-OP-F Manual Assessment Start: 01/10/22 15:07 Freq: Status: Active Protocol: Document 01/10/22 14:30 DCW (Rec: 01/10/22 15:11 DCW [id number]) Manual Assessments Soft Tissue Assessment Soft Tissue Mobility Assessment Moderate tone with tenderness to palpation 3/4: wincing and withdraw along left subscap, infraspinatus, rhomboids Joint Mobility Assessment Joint Mobility Assessment Moderate-severe crepitus and grinding with all passive mobilization of left GH PT-OP-K Range of Motion Start: 01/10/22 15:07 Freq: Status: Active Protocol: Document 01/10/22 14:30 DCW (Rec: 01/10/22 15:15 DCW [id number]) Shoulder Goniometric Range of Motion Shoulder Right Active Shoulder ROM WFL No Testing Position Sitting Flexion 134 Abduction 112 External Rotation at 0 degrees Abduction 53 Internal Rotation Behind Back (text) T10 Left Passive Shoulder ROM WFL No Testing Position Sitting Flexion 122 Abduction 105 External Rotation at 0 degrees Abduction 53 Left Active Shoulder ROM WFL No Testing Position Sitting Flexion 96 Abduction 90 External Rotation at 0 degrees Abduction 38 Internal Rotation Behind Back (text) L2 PT-OP-L Special Tests Start: 01/10/22 15:07 Freq: Status: Active Protocol: Document 01/10/22 14:30 DCW (Rec: 01/10/22 15:15 DCW [id number]) Special Tests Shoulder Special Tests Yergason's Biceps Test Results Positive L Speed's Biceps Test Results Negative Painful Arc Test Results Negative Passive ER Rotator Cuff Test Results Negative Lift-Off Rotator Cuff Test Results Negative [place] Jett Impingement Test Results Positive L Grind Labrum Test Results Positive L Drop Arm Rotator Cuff Test Results Negative Clunk Test Test Results Positive L Belly Press Test Results Positive L AC Joint Compression Test Results Negative PT-OP-M Strength Start: 01/10/22 15:07 Freq: Status: Active Protocol: Document 01/10/22 14:30 DCW (Rec: 01/10/22 17:51 DCW [id number]) Shoulder Strength Shoulder Manual Muscle Testing Right Flexion 4- Good- Abduction (C5) 4 Good External Rotation 4 Good Internal Rotation 4 Good Left Flexion 3 Fair Abduction (C5) 3 Fair External Rotation 4 Good Internal Rotation 4 Good PT-OP-Q Treatments Start: 01/10/22 15:07 Freq: Status: Active Protocol: Document 02/14/22 14:30 DCW (Rec: 02/14/22 15:14 DCW [id number]) Cardio Equipment Upper Body Ergometer (UBE) Duration (Minutes) 5 RPM 60 Seat Position 12 Height 2 Therapeutic Exercises Sitting Exercises Chest press Sitting Exercise Name Chest Press Resistance 2# Equipment Used PVC Pulleys Sitting Exercise Name PROM GH Flexion Side bilateral Standing Exercises PROM Standing Exercise Name PROM Flexion/Abduction /c PVC Side bilateral Manual Therapy Treatment Soft Tissue Mobilization Parascapulars Body Location B Infraspinatus, Subscap Mobilization Type Sustained Pressure,Trigger Point Release Intensity/Depth Moderate Body Position Sitting Joint Mobilizations GH Joint L GH Direction Inf Grade III Body Position Sitting PT-OP-T Assessment and Plan Start: 01/10/22 15:07 Freq: Status: Active Protocol: Document 02/14/22 14:30 DCW (Rec: 02/14/22 15:14 DCW [id number]) Physical Therapy Assessment Impairments Impairments Functional Activities, Functional Mobility,Pain,ROM, Soft Tissue Mobility,Strength, Tone Goals Three Impairment Pt displays limited left shoulder active range of motion [facility] Goal (LTG) Pt to improve left shoulder AROM to >110? flexion and abduction to improve ability to reach overhead to kitchen cabinets. 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 LTG Duration 03/21/22 One Impairment Pt does not have an appropriate home exercise program Short Term Goal (STG) Pt to be independent and compliant with an appropriate HEP STG Duration 02/14/22 Assessment Summary Assessment Pt showing some good improvement today with pain- control and mobility, still fairly tender to palpation. Physical Therapy Plan Frequency and Duration Frequency of Treatment 2x/Week Duration of treatment (weeks) 10 Plan of Care Start Date 01/10/22 Plan of Care End Date 03/21/22 Therapeutic Interventions Therapeutic Interventions Home Exercise Program,Joint Mobilizations,Manual Therapy, Patient/Caregiver Education, Self-Care/Home Management,Soft Tissue Mobilization, Therapeutic Activities, Therapeutic Exercises Modalities Cold Pack/Ice Massage,Electric Stimulation,Hot Packs, Ultrasound Next Visit Focus/Plan Next Note Type Treatment Note Next Visit Plan GH mobs, Passive/active ROM, flexibility, strengthening.
--- NOTE | 2022-02-14 15:16 | PT.OPPN ---
Current Diagnoses Pain in left shoulder (02/14/22) Stiffness of left shoulder, not elsewhere classified (02/14/22) Bicipital tendinitis, left shoulder (02/14/22) Bursitis of left shoulder (02/14/22) Physical Therapy Progress Note PT-OP-A Visit Information Start: 01/10/22 15:07 Freq: Status: Active Protocol: Document 02/14/22 14:30 DCW (Rec: 02/14/22 15:14 DCW [id number]) Out-Patient Physical Therapy Visit Information Visit Information Visit Type Treatment Note Visit Start Time 14:30 Visit Stop Time 15:15 Total Visit Minutes 45 Visit Number 10 Number of STRAPPING MACHINE OPERATOR Visits 0 Evaluation Information Evaluation Date 01/10/22 PT-OP-B Current Condition Start: 01/10/22 15:07 Freq: Status: Active Protocol: Document 01/10/22 14:30 DCW (Rec: 01/10/22 17:51 DCW [id number]) Current Condition History of Current Condition Onset Date 3-4 month history Current Complaints Left shoulder pain and stiffness History of Current Condition Pt is an 86 year old female well known to this clinic presenting with complaints of left shoulder pain and stiffness. 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 Reports she received an injection from Dr Kunz in her shoulder six weeks ago, and has not felt that there has been much improvement. At baseline, pt additionally has severe thoracic kyphosis and scoliosis, with also results in limited shoulder ROM bilaterally due to severe rounded shoulder posturing. Prior Treatments and Tests Pt has been seen frequently at this facility for prior PT on various body parts, including her back, her posture, and her balance, with varying degrees of success. Treatment Goals Patient/Caregiver Goals I'd like to get back the use of my left arm. PT-OP-C Subjective Start: 01/10/22 15:07 Freq: Status: Active Protocol: Document 02/14/22 14:30 DCW (Rec: 02/14/22 15:14 DCW [id number]) OP-PT Subjective Patient Comments Patient Comments Pt reports she is okay today , admits her shoulders are Feeling pretty good. PT-OP-E Functional Tests Start: 01/10/22 15:07 Freq: Status: Active Protocol: Document 01/10/22 14:30 DCW (Rec: 01/10/22 15:11 VAW [id number]) Functional Tests Apley's Scratch Test Action 1: The subject is instructed to touch the opposite shoulder with his/her hand. This motion checks Glenohumeral adduction, internal rotation , horizontal adduction and scapular protraction Action 2: The subject is instructed to place his/her arm overhead and reach behind the neck to touch his/her upper back. This motion checks Glenohumeral abduction, external rotation and scapular upward rotation and elevation. Action 3: The subject puts his/her hand on the lower back and reaches upward as far as possible. This motion checks glenohumeral adduction, internal rotation and scapular retraction with downward rotation Action 1- Left Lateral opposite shoulder Action 1- Right Posterior opposite shoulder Action 2- Left Left upper trap Action 2- Right T4 Action 3- Left L2 Action 3- Right T10 PT-OP-F Manual Assessment Start: 01/10/22 15:07 Freq: Status: Active Protocol: Document 01/10/22 14:30 DCW (Rec: 01/10/22 15:11 DCW [id number]) Manual Assessments Soft Tissue Assessment Soft Tissue Mobility Assessment Moderate tone with tenderness to palpation 3/4: wincing and withdraw along left subscap, infraspinatus, rhomboids Joint Mobility Assessment Joint Mobility Assessment Moderate-severe crepitus and grinding with all passive mobilization of left GH PT-OP-K Range of Motion Start: 01/10/22 15:07 Freq: Status: Active Protocol: Document 01/10/22 14:30 DCW (Rec: 01/10/22 15:15 DCW [id number]) Shoulder Goniometric Range of Motion Shoulder Measured in Degrees Right Active Shoulder ROM WFL No Testing Position Sitting Flexion 134 Abduction 112 External Rotation at 0 degrees Abduction 53 Internal Rotation Behind Back (text) T10 Left Passive Shoulder ROM WFL No Testing Position Sitting Flexion 122 Abduction 105 External Rotation at 0 degrees Abduction 53 Left Active Shoulder ROM WFL No Testing Position Sitting Flexion 96 Abduction 90 External Rotation at 0 degrees Abduction 38 Internal Rotation Behind Back (text) L2 PT-OP-L Special Tests Start: 01/10/22 15:07 Freq: Status: Active Protocol: Document 01/10/22 14:30 DCW (Rec: 01/10/22 15:15 DCW [id number]) Special Tests Shoulder Special Tests Yergason's Biceps Test Results Positive L Speed's Biceps Test Results Negative Painful Arc Test Results Negative Passive ER Rotator Cuff Test Results Negative Lift-Off Rotator Cuff Test Results Negative [place] Impingement Test Results Positive L Grind Labrum Test Results Positive L Drop Arm Rotator Cuff Test Results Negative Clunk Test Test Results Positive L Belly Press Test Results Positive L AC Joint Compression Test Results Negative PT-OP-M Strength Start: 01/10/22 15:07 Freq: Status: Active Protocol: Document 01/10/22 14:30 DCW (Rec: 01/10/22 17:51 DCW [id number]) Shoulder Strength Shoulder Manual Muscle Testing Right Flexion 4- Good- Abduction (C5) 4 Good External Rotation 4 Good Internal Rotation 4 Good Left Flexion 3 Fair Abduction (C5) 3 Fair External Rotation 4 Good Internal Rotation 4 Good PT-OP-T Assessment and Plan Start: 01/10/22 15:07 Freq: Status: Active Protocol: Document 02/14/22 14:30 DCW (Rec: 02/14/22 15:14 DCW [id number]) Physical Therapy Assessment Impairments Impairments Functional Activities, Functional Mobility,Pain,ROM, Soft Tissue Mobility,Strength, Tone Goals Three Impairment Pt displays limited left shoulder active range of motion Ironer Hand Goal (LTG) Pt to improve left shoulder AROM to >110? flexion and abduction to improve ability to reach overhead to kitchen cabinets. 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 LTG Duration 03/21/22 One Impairment Pt does not have an appropriate home exercise program Short Term Goal (STG) Pt to be independent and compliant with an appropriate HEP STG Duration 02/14/22 Assessment Summary Assessment Pt showing some good improvement today with pain- control and mobility, still fairly tender to palpation. Physical Therapy Plan Frequency and Duration Frequency of Treatment 2x/Week Duration of treatment (weeks) 10 Plan of Care Start Date 01/10/22 Plan of Care End Date 03/21/22 Therapeutic Interventions Therapeutic Interventions Home Exercise Program,Joint Mobilizations,Manual Therapy, Patient/Caregiver Education, Self-Care/Home Management,Soft Tissue Mobilization, Therapeutic Activities, Therapeutic Exercises Modalities Cold Pack/Ice Massage,Electric Stimulation,Hot Packs, Ultrasound Next Visit Focus/Plan Next Note Type Treatment Note Next Visit Plan GH mobs, Passive/active ROM, flexibility, strengthening.
--- NOTE | 2022-02-16 15:10 | PT.OTN ---
Current Diagnoses Pain in left shoulder (02/14/22) Stiffness of left shoulder, not elsewhere classified (02/14/22) Bicipital tendinitis, left shoulder (02/14/22) Bursitis of left shoulder (02/14/22) Physical Therapy Treatment Note PT-OP-A Visit Information Start: 01/10/22 15:07 Freq: Status: Active Protocol: Document 02/16/22 14:34 DCW (Rec: 02/16/22 15:09 DCW [id number]) Out-Patient Physical Therapy Visit Information Visit Information Visit Type Treatment Note Visit Start Time 14:34 Visit Stop Time 15:15 Total Visit Minutes 41 Visit Number 10 Number of SEA CAPTAIN Visits 0 Evaluation Information Evaluation Date 01/10/22 PT-OP-B Current Condition Start: 01/10/22 15:07 Freq: Status: Active Protocol: Document 01/10/22 14:30 DCW (Rec: 01/10/22 17:51 DCW [id number]) Current Condition History of Current Condition Onset Date 3-4 month history Current Complaints Left shoulder pain and stiffness History of Current Condition Pt is an 86 year old female well known to this clinic presenting with complaints of left shoulder pain and stiffness. 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 Reports she received an injection from Dr Kunz in her shoulder six weeks ago, and has not felt that there has been much improvement. At baseline, pt additionally has severe thoracic kyphosis and scoliosis, with also results in limited shoulder ROM bilaterally due to severe rounded shoulder posturing. Prior Treatments and Tests Pt has been seen frequently at this facility for prior PT on various body parts, including her back, her posture, and her balance, with varying degrees of success. Treatment Goals Patient/Caregiver Goals I'd like to get back the use of my left arm. PT-OP-C Subjective Start: 01/10/22 15:07 Freq: Status: Active Protocol: Document 02/16/22 14:34 DCW (Rec: 02/16/22 15:09 DCW [id number]) OP-PT Subjective Patient Comments Patient Comments Pt reports she is pretty well today. PT-OP-E Functional Tests Start: 01/10/22 15:07 Freq: Status: Active Protocol: Document 01/10/22 14:30 DCW (Rec: 01/10/22 15:11 DCW [id number]) Functional Tests Apley's Scratch Test Action 1- Left Lateral opposite shoulder Action 1- Right Posterior opposite shoulder Action 2- Left Left upper trap Action 2- Right T4 Action 3- Left L2 Action 3- Right T10 PT-OP-F Manual Assessment Start: 01/10/22 15:07 Freq: Status: Active Protocol: Document 01/10/22 14:30 DCW (Rec: 01/10/22 15:11 DCW [id number]) Manual Assessments Soft Tissue Assessment Soft Tissue Mobility Assessment Moderate tone with tenderness to palpation 3/4: wincing and withdraw along left subscap, infraspinatus, rhomboids Joint Mobility Assessment Joint Mobility Assessment Moderate-severe crepitus and grinding with all passive mobilization of left GH PT-OP-K Range of Motion Start: 01/10/22 15:07 Freq: Status: Active Protocol: Document 01/10/22 14:30 DCW (Rec: 01/10/22 15:15 DCW [id number]) Shoulder Goniometric Range of Motion Shoulder Right Active Shoulder ROM WFL No Testing Position Sitting Flexion 134 Abduction 112 External Rotation at 0 degrees Abduction 53 Internal Rotation Behind Back (text) T10 Left Passive Shoulder ROM WFL No Testing Position Sitting Flexion 122 Abduction 105 External Rotation at 0 degrees Abduction 53 Left Active Shoulder ROM WFL No Testing Position Sitting Flexion 96 Abduction 90 External Rotation at 0 degrees Abduction 38 Internal Rotation Behind Back (text) L2 PT-OP-L Special Tests Start: 01/10/22 15:07 Freq: Status: Active Protocol: Document 01/10/22 14:30 DCW (Rec: 01/10/22 15:15 DCW [id number]) Special Tests Shoulder Special Tests Yergason's Biceps Test Results Positive L Speed's Biceps Test Results Negative Painful Arc Test Results Negative Passive ER Rotator Cuff Test Results Negative Lift-Off Rotator Cuff Test Results Negative [place] Impingement Test Results Positive L Grind Labrum Test Results Positive L Drop Arm Rotator Cuff Test Results Negative Clunk Test Test Results Positive L Belly Press Test Results Positive L AC Joint Compression Test Results Negative PT-OP-M Strength Start: 01/10/22 15:07 Freq: Status: Active Protocol: Document 01/10/22 14:30 DCW (Rec: 01/10/22 17:51 DCW [id number]) Shoulder Strength Shoulder Manual Muscle Testing Right Flexion 4- Good- Abduction (C5) 4 Good External Rotation 4 Good Internal Rotation 4 Good Left Flexion 3 Fair Abduction (C5) 3 Fair External Rotation 4 Good Internal Rotation 4 Good PT-OP-Q Treatments Start: 01/10/22 15:07 Freq: Status: Active Protocol: Document 02/16/22 14:34 DCW (Rec: 02/16/22 15:09 DCW [id number]) Cardio Equipment Upper Body Ergometer (UBE) Duration (Minutes) 5 RPM 60 Seat Position 12 Height 2 Therapeutic Exercises Sitting Exercises Internal Rotation Sitting Exercise Name Shoulder IR Side bilateral Resistance Lv 2 External Rotation Sitting Exercise Name Shoulder ER Side bilateral Resistance Lv 2 Rows Sitting Exercise Name Rows Side bilateral Resistance Lv 2 Comments Therapist-anchored Lat [place] Sitting Exercise Name Lat [place] Side bilateral Resistance Lv 2 Comments Therapist-anchored Chest press Sitting Exercise Name Chest Press Resistance 2# Equipment Used PVC Pulleys Sitting Exercise Name PROM GH Flexion Side bilateral Standing Exercises PROM Standing Exercise Name PROM Flexion/Abduction /c PVC Side bilateral Manual Therapy Treatment Soft Tissue Mobilization Parascapulars Body Location B Infraspinatus, Subscap Mobilization Type Sustained Pressure,Trigger Point Release Intensity/Depth Moderate Body Position Sitting Joint Mobilizations GH Joint L GH Direction Inf Grade III Body Position Sitting PT-OP-T Assessment and Plan Start: 01/10/22 15:07 Freq: Status: Active Protocol: Document 02/16/22 14:34 DCW (Rec: 02/16/22 15:09 [facility] [id number]) Physical Therapy Assessment Impairments Impairments Functional Activities, Functional Mobility,Pain,ROM, Soft Tissue Mobility,Strength, Tone Goals Three Impairment Pt displays limited left shoulder active range of motion Commercial Singer Goal (LTG) Pt to improve left shoulder AROM to >110? flexion and abduction to improve ability to reach overhead to kitchen cabinets. 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 LTG Duration 03/21/22 One Impairment Pt does not have an appropriate home exercise program Short Term Goal (STG) Pt to be independent and compliant with an appropriate HEP STG Duration 02/14/22 Assessment Summary Assessment Pt experiencing less tone and tenderness in parascapular musculature. Physical Therapy Plan Frequency and Duration Frequency of Treatment 2x/Week Duration of treatment (weeks) 10 Plan of Care Start Date 01/10/22 Plan of Care End Date 03/21/22 Therapeutic Interventions Therapeutic Interventions Home Exercise Program,Joint Mobilizations,Manual Therapy, Patient/Caregiver Education, Self-Care/Home Management,Soft Tissue Mobilization, Therapeutic Activities, Therapeutic Exercises Modalities Cold Pack/Ice Massage,Electric Stimulation,Hot Packs, Ultrasound Next Visit Focus/Plan Next Note Type Treatment Note Next Visit Plan GH mobs, Passive/active ROM, flexibility, strengthening.
--- NOTE | 2022-02-21 15:16 | PT.OTN ---
Current Diagnoses Pain in left shoulder (02/21/22) Stiffness of left shoulder, not elsewhere classified (02/21/22) Bicipital tendinitis, left shoulder (02/21/22) Bursitis of left shoulder (02/21/22) Physical Therapy Treatment Note PT-OP-A Visit Information Start: 01/10/22 15:07 Freq: Status: Active Protocol: Document 02/21/22 14:35 DCW (Rec: 02/21/22 15:16 DCW [id number]) Out-Patient Physical Therapy Visit Information Visit Information Visit Type Treatment Note Visit Start Time 14:35 Visit Stop Time 15:15 Total Visit Minutes 40 Visit Number 11 Number of SAND OPERATOR Visits 0 Evaluation Information Evaluation Date 01/10/22 PT-OP-B Current Condition Start: 01/10/22 15:07 Freq: Status: Active Protocol: Document 01/10/22 14:30 DCW (Rec: 01/10/22 17:51 DCW [id number]) Current Condition History of Current Condition Onset Date 3-4 month history Current Complaints Left shoulder pain and stiffness History of Current Condition Pt is an 86 year old female well known to this clinic presenting with complaints of left shoulder pain and stiffness. 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 Reports she received an injection from Dr Kunz in her shoulder six weeks ago, and has not felt that there has been much improvement. At baseline, pt additionally has severe thoracic kyphosis and scoliosis, with also results in limited shoulder ROM bilaterally due to severe rounded shoulder posturing. Prior Treatments and Tests Pt has been seen frequently at this facility for prior PT on various body parts, including her back, her posture, and her balance, with varying degrees of success. Treatment Goals Patient/Caregiver Goals I'd like to get back the use of my left arm. PT-OP-C Subjective Start: 01/10/22 15:07 Freq: Status: Active Protocol: Document 02/21/22 14:35 DCW (Rec: 02/21/22 15:16 DCW [id number]) OP-PT Subjective Patient Comments Patient Comments Pt not sure how she is feeling today, PT-OP-E Functional Tests Start: 01/10/22 15:07 Freq: Status: Active Protocol: Document 01/10/22 14:30 DCW (Rec: 01/10/22 15:11 DCW [id number]) Functional Tests Apley's Scratch Test Action 1- Left Lateral opposite shoulder Action 1- Right Posterior opposite shoulder Action 2- Left Left upper trap Action 2- Right T4 Action 3- Left L2 Action 3- Right T10 PT-OP-F Manual Assessment Start: 01/10/22 15:07 Freq: Status: Active Protocol: Document 01/10/22 14:30 DCW (Rec: 01/10/22 15:11 DCW [id number]) Manual Assessments Soft Tissue Assessment Soft Tissue Mobility Assessment Moderate tone with tenderness to palpation 3/4: wincing and withdraw along left subscap, infraspinatus, rhomboids Joint Mobility Assessment Joint Mobility Assessment Moderate-severe crepitus and grinding with all passive mobilization of left GH PT-OP-K Range of Motion Start: 01/10/22 15:07 Freq: Status: Active Protocol: Document 01/10/22 14:30 DCW (Rec: 01/10/22 15:15 DCW [id number]) Shoulder Goniometric Range of Motion Shoulder Right Active Shoulder ROM WFL No Testing Position Sitting Flexion 134 Abduction 112 External Rotation at 0 degrees Abduction 53 Internal Rotation Behind Back (text) T10 Left Passive Shoulder ROM WFL No Testing Position Sitting Flexion 122 Abduction 105 External Rotation at 0 degrees Abduction 53 Left Active Shoulder ROM WFL No Testing Position Sitting Flexion 96 Abduction 90 External Rotation at 0 degrees Abduction 38 Internal Rotation Behind Back (text) L2 PT-OP-L Special Tests Start: 01/10/22 15:07 Freq: Status: Active Protocol: Document 01/10/22 14:30 DCW (Rec: 01/10/22 15:15 DCW [id number]) Special Tests Shoulder Special Tests Yergason's Biceps Test Results Positive L Speed's Biceps Test Results Negative Painful Arc Test Results Negative Passive ER Rotator Cuff Test Results Negative Lift-Off Rotator Cuff Test Results Negative Parish Jett Impingement Test Results Positive L Grind Labrum Test Results Positive L Drop Arm Rotator Cuff Test Results Negative Clunk Test Test Results Positive L Belly Press Test Results Positive L AC Joint Compression Test Results Negative PT-OP-M Strength Start: 01/10/22 15:07 Freq: Status: Active Protocol: Document 01/10/22 14:30 DCW (Rec: 01/10/22 17:51 DCW [id number]) Shoulder Strength Shoulder Manual Muscle Testing Right Flexion 4- Good- Abduction (C5) 4 Good External Rotation 4 Good Internal Rotation 4 Good Left Flexion 3 Fair Abduction (C5) 3 Fair External Rotation 4 Good Internal Rotation 4 Good PT-OP-Q Treatments Start: 01/10/22 15:07 Freq: Status: Active Protocol: Document 02/21/22 14:35 DCW (Rec: 02/21/22 15:16 DCW [id number]) Cardio Equipment Upper Body Ergometer (UBE) Duration (Minutes) 5 RPM 60 Seat Position 12 Height 2 Therapeutic Exercises Sitting Exercises Internal Rotation Sitting Exercise Name Shoulder IR Side bilateral Resistance Lv 2 External Rotation Sitting Exercise Name Shoulder ER Side bilateral Resistance Lv 2 Rows Sitting Exercise Name Rows Side bilateral Resistance Lv 2 Comments Therapist-anchored Lat [place] Sitting Exercise Name Lat [place] Side bilateral Resistance Lv 2 Comments Therapist-anchored Chest press Sitting Exercise Name Chest Press Resistance 4# Equipment Used PVC Pulleys Sitting Exercise Name PROM GH Flexion Side bilateral Standing Exercises PROM Standing Exercise Name PROM Flexion/Abduction /c PVC Side bilateral Manual Therapy Treatment Soft Tissue Mobilization Parascapulars Body Location B Infraspinatus, Subscap Mobilization Type Sustained Pressure,Trigger Point Release Intensity/Depth Moderate Body Position Sitting Joint Mobilizations GH Joint L GH Direction Inf Grade III Body Position Sitting PT-OP-T Assessment and Plan Start: 01/10/22 15:07 Freq: Status: Active Protocol: Document 02/21/22 14:35 DCW (Rec: 02/21/22 15:16 DCW [id number]) Physical Therapy Assessment Impairments Impairments Functional Activities, Functional Mobility,Pain,ROM, Soft Tissue Mobility,Strength, Tone Goals Three Impairment Pt displays limited left shoulder active range of motion Lemon Grower Goal (LTG) Pt to improve left shoulder AROM to >110? flexion and abduction to improve ability to reach overhead to kitchen cabinets. LTG Duration 03/21/22 Two Impairment Pt struggles carrying laundry basket due to L shoulder weakness Fci Goal (LTG) Pt to demonstrate improved left shoulder MMT to at least 4-/5 in both flexion and abduction to improve carrying ability for household worker. LTG Duration 03/21/22 One Impairment Pt does not have an appropriate home exercise program Short Term Goal (STG) Pt to be independent and compliant with an appropriate HEP STG Duration 02/14/22 Assessment Summary Assessment Pt showing good movement overall with her shoulders bilaterally, feels like she has made good progress. Physical Therapy Plan Frequency and Duration Frequency of Treatment 2x/Week Duration of treatment (weeks) 10 Plan of Care Start Date 01/10/22 Plan of Care End Date 03/21/22 Therapeutic Interventions Therapeutic Interventions Home Exercise Program,Joint Mobilizations,Manual Therapy, Patient/Caregiver Education, Self-Care/Home Management,Soft Tissue Mobilization, Therapeutic Activities, Therapeutic Exercises Modalities Cold Pack/Ice Massage,Electric Stimulation,Hot Packs, Ultrasound Next Visit Focus/Plan Next Note Type Treatment Note Next Visit Plan GH mobs, Passive/active ROM, flexibility, strengthening.
--- NOTE | 2022-09-04 16:51 | PT.OPDS ---
Current Diagnoses Pain in left shoulder (02/21/22) Stiffness of left shoulder, not elsewhere classified (02/21/22) Bicipital tendinitis, left shoulder (02/21/22) Bursitis of left shoulder (02/21/22) Visit Care Team Role Provider Type Jia Sheridan MD Family Provider Physician Primary Care Provider Specialty: Family Practice Address: [address] [place] [address], [facility] [place] [place], [address] Email: [email or web address] Ajay Dozier MD Attending Provider Physician Referring Provider Specialty: Orthopedics Orthopedic Surgery Address: [address] [place] [address], [place], [address] Email: [email or web address] Visit Number Visit Number 11 Discharge Summary PT-OP-B Current Condition Start: 01/10/22 15:07 Freq: Status: Active Protocol: Document 01/10/22 14:30 DCW (Rec: 01/10/22 17:51 DCW [id number]) Current Condition History of Current Condition Onset Date 3-4 month history Current Complaints Left shoulder pain and stiffness History of Current Condition Pt is an 86 year old female well known to this clinic presenting with complaints of left shoulder pain and stiffness. 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 Reports she received an injection from Dr Kunz in her shoulder six weeks ago, and has not felt that there has been much improvement. At baseline, pt additionally has severe thoracic kyphosis and scoliosis, with also results in limited shoulder ROM bilaterally due to severe rounded shoulder posturing. Prior Treatments and Tests Pt has been seen frequently at this facility for prior PT on various body parts, including her back, her posture, and her balance, with varying degrees of success. Treatment Goals Patient/Caregiver Goals I'd like to get back the use of my left arm. PT-OP-C Subjective Start: 01/10/22 15:07 Freq: Status: Active Protocol: Document 02/21/22 14:35 DCW (Rec: 02/21/22 15:16 DCW [id number]) OP-PT Subjective Patient Comments Patient Comments Pt not sure how she is feeling today, PT-OP-E Functional Tests Start: 01/10/22 15:07 Freq: Status: Active Protocol: Document 01/10/22 14:30 DCW (Rec: 01/10/22 15:11 DCW [id number]) Functional Tests Apley's Scratch Test Action 1- Left Lateral opposite shoulder Action 1- Right Posterior opposite shoulder Action 2- Left Left upper trap Action 2- Right T4 Action 3- Left L2 Action 3- Right T10 PT-OP-F Manual Assessment Start: 01/10/22 15:07 Freq: Status: Active Protocol: Document 01/10/22 14:30 DCW (Rec: 01/10/22 15:11 DCW [id number]) Manual Assessments Soft Tissue Assessment Soft Tissue Mobility Assessment Moderate tone with tenderness to palpation 3/4: wincing and withdraw along left subscap, infraspinatus, rhomboids Joint Mobility Assessment Joint Mobility Assessment Moderate-severe crepitus and grinding with all passive mobilization of left GH PT-OP-K Range of Motion Start: 01/10/22 15:07 Freq: Status: Active Protocol: Document 01/10/22 14:30 DCW (Rec: 01/10/22 15:15 DCW [id number]) Shoulder Goniometric Range of Motion Shoulder Right Active Shoulder ROM WFL No Testing Position Sitting Flexion 134 Abduction 112 External Rotation at 0 degrees Abduction 53 Internal Rotation Behind Back (text) T10 Left Passive Shoulder ROM WFL No Testing Position Sitting Flexion 122 Abduction 105 External Rotation at 0 degrees Abduction 53 Left Active Shoulder ROM WFL No Testing Position Sitting Flexion 96 Abduction 90 External Rotation at 0 degrees Abduction 38 Internal Rotation Behind Back (text) L2 PT-OP-L Special Tests Start: 01/10/22 15:07 Freq: Status: Active Protocol: Document 01/10/22 14:30 DCW (Rec: 01/10/22 15:15 DCW [id number]) Special Tests Shoulder Special Tests Yergason's Biceps Test Results Positive L Speed's Biceps Test Results Negative Painful Arc Test Results Negative Passive ER Rotator Cuff Test Results Negative Lift-Off Rotator Cuff Test Results Negative [place] Impingement Test Results Positive L Grind Labrum Test Results Positive L Drop Arm Rotator Cuff Test Results Negative Clunk Test Test Results Positive L Belly Press Test Results Positive L AC Joint Compression Test Results Negative PT-OP-M Strength Start: 01/10/22 15:07 Freq: Status: Active Protocol: Document 01/10/22 14:30 DCW (Rec: 01/10/22 17:51 DCW [id number]) Shoulder Strength Shoulder Manual Muscle Testing Right Flexion 4- Good- Abduction (C5) 4 Good External Rotation 4 Good Internal Rotation 4 Good Left Flexion 3 Fair Abduction (C5) 3 Fair External Rotation 4 Good Internal Rotation 4 Good PT-OP-T Assessment and Plan Start: 01/10/22 15:07 Freq: Status: Active Protocol: Document 09/04/22 16:50 DCW (Rec: 09/04/22 16:51 DCW [id number]) Physical Therapy Assessment Assessment Summary Assessment Pt has now not been seen in more than six months, POC has now . Pt will require a new referral in order to return to skilled therapy. Pt will be discharged from PT at this time. Physical Therapy Plan Discharge Physical Therapy Discharge Reasons No Longer Attending PT
== END 2022-09-05 12:04 | disposition home or self-care (01) ==
LOC: PHYS 14:30
PROVIDERS: Family Provider Family Medicine; PCP Family Medicine; Referring Provider Orthopaedic Surgery; Visit Provider Orthopaedic Surgery
DX: M75.52 Bursitis of left shoulder (principal); M25.612 Stiffness of left shoulder, not elsewhere classified; M25.512 Pain in left shoulder; M75.22 Bicipital tendinitis, left shoulder
CPT/HCPCS: 97110; 97140; 97162

== ENCOUNTER → 2022-08-10 14:27 | Outpatient (CLI) | payer MEDICARE, OTHER, SELFPAY ==
[2021-10-22 15:34] VITALS: BMI 26.7
--- NOTE | 2022-08-10 | DI.MG.S_ITS ---
BILATERAL DIGITAL SCREENING MAMMOGRAM 3D/2D WITH CAD: 08/10/2022 CLINICAL: Routine screening. Family history of breast cancer. Comparison is made to exams dated: 05/20/2021 mammogram, 05/14/2020 mammogram, 05/05/2019 mammogram, and 04/05/2018 mammogram - [facility]. There are scattered areas of fibroglandular density in both breasts (category b / 25%-50% glandular tissue). Current study was also evaluated with a Computer Aided Detection (CAD) system. There are benign vascular calcifications in both breasts. No significant masses, calcifications, or other findings are seen in either breast. There has been no significant interval change. IMPRESSION: BENIGN There is no mammographic evidence of malignancy. A 1 year screening mammogram is recommended. This exam was interpreted at Station ID: [id number]. NOTE: For mammograms, a report in lay terms will be sent to the patient. Approximately 15% of breast malignancies will not be visualized mammographically. In the management of a palpable breast mass, a negative mammogram must not discourage biopsy of a clinically suspicious lesion. Electronically Signed By: Juan R denney/wilma:08/10/2022 15:44:29 letter sent: Normal Exam ACR BI-RADS Category 2: Benign Finding(s) 3342F
== END ==
PROVIDERS: Family Provider Family Medicine; PCP Family Medicine; Referring Provider Family Medicine; Visit Provider Family Medicine
DX: Z12.31 Encounter for screening mammogram for malignant neoplasm of breast (principal); Z80.3 Family history of malignant neoplasm of breast
CPT/HCPCS: 77063; 77067

== ENCOUNTER → 2023-04-26 09:11 | Outpatient (CLI) | payer MEDICARE, OTHER, SELFPAY ==
[2021-10-22 15:34] VITALS: BMI 26.7
--- NOTE | 2023-04-26 | DI.US.S_ITS ---
ULTRASOUND OF RIGHT BREAST AND AXILLA: 04/26/2023 CLINICAL: New right breast mass. Comparison is made to exams dated: 04/26/2023 mammogram, 08/10/2022 mammogram, 05/20/2021 mammogram, 05/14/2020 mammogram, 05/05/2019 mammogram, and 04/05/2018 mammogram - [facility]. Ultrasound of the right breast axilla was performed. There is a 1.1 cm x 1.5 cm x 0.8 cm oval mass with an indistinct margin in the right breast at 11 o'clock middle depth 10 cm from the nipple. This correlates as palpated. No significant abnormalities were seen sonographically in the right axilla. IMPRESSION: SUSPICIOUS OF MALIGNANCY The 1.1 cm x 1.5 cm x 0.8 cm oval mass in the right breast is suspicious of malignancy. An ultrasound guided biopsy is recommended. No significant abnormalities were seen sonographically in the right axilla. This exam was interpreted at Station ID: [id number]. Electronically Signed By: Jesse Palomo M.D. lc/:04/26/2023 10:41:07 letter sent: Biopsy Required Ultrasound BI-RADS: 4 Suspicious for malignancy
--- NOTE | 2023-04-26 | DI.MG.S_ITS ---
UNILATERAL RIGHT DIGITAL DIAGNOSTIC MAMMOGRAM 3D/2D: 04/26/2023 CLINICAL: New mass of the Right breast. Comparison is made to exams dated: 08/10/2022 mammogram, 05/20/2021 mammogram, and 05/14/2020 mammogram - [facility]. There are scattered areas of fibroglandular density in the right breast (category b / 25%-50% glandular tissue). There is a new 1.2 cm irregular mass with an obscured margin in the right breast at 11 o'clock middle depth. This correlates as palpated. No other significant masses or calcifications are seen in the breast. IMPRESSION: INCOMPLETE: NEEDS ADDITIONAL IMAGING EVALUATION The new 1.2 cm irregular mass in the right breast is indeterminate. An ultrasound is recommended. This exam was interpreted at Station ID: [id number]. NOTE: For mammograms, a report in lay terms will be sent to the patient. Approximately 15% of breast malignancies will not be visualized mammographically. In the management of a palpable breast mass, a negative mammogram must not discourage biopsy of a clinically suspicious lesion. Electronically Signed By: Jesse Palomo M.D. lc/:04/26/2023 10:38:12 ACR BI-RADS Category 0: Incomplete [id number]
== END ==
LOC: MAMMO 09:12
PROVIDERS: Family Provider Family Medicine; PCP Family Medicine; Referring Provider Family Medicine; Visit Provider Family Medicine
DX: N63.11 Unspecified lump in the right breast, upper outer quadrant (principal); N63.13 Unspecified lump in the right breast, lower outer quadrant; R92.8 Other abnormal and inconclusive findings on diagnostic imaging of breast
CPT/HCPCS: 76642; 77065; G0279

== ENCOUNTER → 2023-04-26 09:13 | Outpatient (CLI) | payer MEDICARE, OTHER, SELFPAY ==
[2021-10-22 15:34] VITALS: BMI 26.7
--- NOTE | 2023-04-26 | DI.RAD.S_ITS ---
PROCEDURE: FL UPPER GI SERIES INDICATIONS: Gastro-esophageal reflux disease wo esophagititis COMPARISON: None available at the time of dictation FINDINGS: KUB: Preprocedural automatic line set up mechanic film demonstrates a normal bowel gas pattern. No suspicious abdominal calcifications. Visualized solid organ contours appear unremarkable noting limitations of the study due to distortion by severe scoliosis. Esophagus: Abnormality of the esophageal mucosa is poorly assessed due to patient immobility. However the contour the soft vaginal mucosa of the motility do not appear normal.. Areas of irregularity and tertiary contractions are seen with a probable large hiatal hernia. Delayed transit is seen of the contrast esophagus. Stomach: Difficult to assess the stomach due to patient immobility however large hiatal hernia is suggested on difficult to obtain images. An endoscopy may provide additional diagnostic benefit if indicated. IMPRESSION: The study was very limited due to patient immobility. Marked abnormality of the esophagus with mucosal irregularity, tertiary contractions and large hiatal hernia partially visualized. An endoscopy may provide additional diagnostic benefit if indicated. Dictated by: Gael Odonnell M.D. on 04/27/2023 at 9:42 Approved by: Gael Odonnell M.D. on 04/27/2023 at 9:54
== END ==
LOC: RAD 09:13
PROVIDERS: Family Provider Family Medicine; PCP Family Medicine; Referring Provider Family Medicine; Visit Provider Family Medicine
DX: K21.9 Gastro-esophageal reflux disease without esophagitis (principal); R13.13 Dysphagia, pharyngeal phase; K44.9 Diaphragmatic hernia without obstruction or gangrene
CPT/HCPCS: 74240; 76642; 77065; G0279

== ENCOUNTER → 2023-05-17 | Outpatient (CLI) | payer MEDICARE, OTHER, SELFPAY ==
[2021-10-22 15:34] VITALS: BMI 26.7
--- NOTE | 2023-05-17 | PATH_ITS ---
[facility] Accession Number: [id number] No. of containers..01 Tissue . 01 Material submitted: . breast - RIGHT BREAST MASS 11:00 10CMFN . 01 Diagnosis: RIGHT BREAST, 11 O'CLOCK, 10 CM FROM NIPPLE, IMAGE-GUIDED CORE BIOPSY: Invasive ductal carcinoma, well-differentiated. - Giovanni score: 5 out of 9 possible (histologic=2, nuclear=2, mitotic rate=1). - In situ carcinoma: Not identified. - Lymphovascular invasion: Not identified. - Microcalcifications: Present, associated with carcinoma. - Greatest linear extent of invasive carcinoma: 4 mm, as measured from the glass slide. - Predictive markers: Estrogen and progesterone receptors, and HER2 by immunohistochemistry pending, reported as an addendum. MRV 05/21/2023 1358 Local . 01 Comment: The results of this case are verbally provided by Dr. Braun to [facility] on 05/21/2023 at 1:10 p.m. . 01 Electronically signed: . Layla Braun MD, Pathologist NPI- [id number] . 01 Gross description: . Specimen is received in formalin labeled with the patient's name, , and right breast 11 o'clock 10 cm FN, and consists of multiple yellow to lawrence soft tissue fragments admixed with hemorrhagic material aggregating to 1.5 x 1.2 x 0.2 cm. Inked green, filtered, and submitted entirely in cassette A1. The specimen was removed on 05/17/2023 at 1552 hours, time in formalin not provided, cold ischemic time cannot be calculated, total fixation time is approximately 35 hours. ([id number]) /NARAYAN 05/18/2023 0853 Local . 01 Pathologist provided ICD-10: C50.911 . 01 CPT . 459077, 741124, 271885, 620609 Performed at: [facility] [address] [place] [address], [place], [place] [id number] MD Ihsan Tracey MD Phone: [phone]
--- NOTE | 2023-05-17 14:25 | DI.US.S_ITS ---
ULTRASOUND GUIDED BIOPSY RIGHT BREAST USING VACUUM DEVICE WITH POST MAMMOGRAPHIC AND ULTRASOUND IMAGIN05/17/2023 CLINICAL: Right breast biopsy. PATIENT CONSENT: Risks (minor bleeding, infection, vasovagal reaction and repeat procedure), benefits and alternatives were explained to the patient and written informed consent was obtained. Correlation is made to exams dated: 05/17/2023 mammogram, 04/26/2023 ultrasound, 04/26/2023 mammogram, and 08/10/2022 mammogram - [facility]. An ultrasound guided biopsy using real-time ultrasound was performed for the oval mass located in the right breast at 11 o'clock middle depth. This was described on the previous ultrasound report. The skin was prepped in the usual manner. Local anesthetic was administered to the access site. The abnormality was approached from the lateral aspect. A 13 gauge biopsy needle was placed adjacent to the abnormality under ultrasound guidance. Once the needle was documented to be in the correct location, five specimens were obtained using the Mammotome biopsy system. Post procedure mammographic and ultrasound imaging demonstrates the clip at the targeted area. The specimens were sent to the laboratory for pathological analysis. IMPRESSION: ULTRASOUND GUIDED BIOPSY MALIGNANT Ultrasound guided biopsy of the mass in the right breast middle depth was successful. Pathology indicates malignant invasive ductal carcinoma (ID). Pathology results are concordant with imaging findings. A surgical/oncologic consultation is recommended. Results and recommendations will be communicated to the ordering provider's office. This exam was interpreted at Station ID: [id number]. Gonzalo Hartmann M.D. fx,krg/:05/25/2023 12:14:59
--- NOTE | 2023-05-17 14:26 | DI.MG.S_ITS ---
UNILATERAL RIGHT DIGITAL DIAGNOSTIC MAMMOGRAM 3D/2D: 05/17/2023 CLINICAL: Post clip. Comparison is made to exams dated: 04/26/2023 ultrasound, 04/26/2023 mammogram, 08/10/2022 mammogram, and 05/20/2021 mammogram - [facility]. There are scattered areas of fibroglandular density in the right breast (category b / 25%-50% glandular tissue). There is a biopsy marker at the biopsy site. No significant masses, calcifications, or other findings are seen in the breast. IMPRESSION: POST PROCEDURE MAMMOGRAM FOR MARKER PLACEMENT A biopsy marker at the biopsy site. This exam was interpreted at Station ID: [id number]. NOTE: For mammograms, a report in lay terms will be sent to the patient. Approximately 15% of breast malignancies will not be visualized mammographically. In the management of a palpable breast mass, a negative mammogram must not discourage biopsy of a clinically suspicious lesion. Electronically Signed By: Gonzalo Head M.D. fx/:05/17/2023 15:47:11 ACR BI-RADS Category Post-procedure mammogram for marker placement
== END ==
PROVIDERS: Family Provider Family Medicine; PCP Family Medicine; Referring Provider Family Medicine; Visit Provider Family Medicine
DX: C50.411 Malignant neoplasm of upper-outer quadrant of right female breast (principal); Z17.0 Estrogen receptor positive status [ER+]
CPT/HCPCS: 19083; 77065

== ENCOUNTER 2023-06-19 10:56 | Day surgery (SDC) | payer MEDICARE, OTHER, SELFPAY ==
[2021-10-22 15:34] VITALS: BMI 26.7
[2023-06-08 12:30] VITALS: BMI 22.6
--- NOTE | 2023-06-19 | PATH_ITS ---
[facility] Accession Number: [id number] No. of containers..02 Tissue . 01 Material submitted: . PART A: breast - RIGHT BREAST PART B: axillary tail of breast - RIGHT AXILLARY LYMPH NODE . 01 Diagnosis: A. RIGHT BREAST, LUMPECTOMY: Invasive (ductal) carcinoma, grade 2 of 3 ([place] combined histologic grade, total score 6-7/9), with the following specific features: 1. Tumor size (invasive component): 1.6 cm by gross measurement. 2. Nuclear pleomorphism: Intermediate to high. (2-3/3) 3. Mitotic rate: Intermediate. (2/3) 4. Tubular differentiation: Moderate degree. (2/3) 5. Ductal carcinoma in situ: Not definitively identified. 6. Calcifications: Present in association with invasive carcinoma, media of blood vessels, and benign stroma and ducts. 7. Lymphatic invasion: Not identified in the lumpectomy specimen; see part B below. 8. Resection margins: - Invasive carcinoma: Negative, 2 mm or more for all margins. 9. Prognostic markers (performed on prior biopsy, collection date 05/18/2023, case #[id number]), with the following reported results: - Estrogen receptor status: Positive. - Progesterone receptor status: Positive. - HER2 status: Negative. 10. Regional lymph node status: See part B below, no lymph nodes identified within the lumpectomy specimen: - One out of one (non-sentinel) lymph node positive for carcinoma (04/02). - Size of largest metastatic deposit: 8 mm. - Extranodal extension: Present. 11. Additional findings: - Skin, nipple, and skeletal muscle are not present. - Biopsy clip/biopsy site changes are seen. 12. Preoperative therapy: None known. 13. If additional ancillary studies are required, the optimal tissue block of tumor is A3. 14. Pathologic stage: pT1c pN1a . B. RIGHT AXILLARY LYMPH NODE, DISSECTION: - One out of one (non-sentinel) lymph node positive for carcinoma (04/02). - Size of largest metastatic deposit: 8 mm. - Extranodal extension: Present. MRV 06/25/2023 1542 Local . 01 Electronically signed: Jolene Salas MD, Pathologist NPI- [id number] . 01 Gross description: . A. Received: In formalin, with two identifiers and R breast tissue. Specimen: An oriented right lumpectomy, previously inked. Weight: 10 grams. Measurement: 3.8 cm from superior to inferior, 2.2 cm from medial to lateral, and 2.5 cm anterior to posterior. Skin ellipse: Absent. Wire: Absent. Margins: Inked by the surgeon as follows: Anterior green; inferior blue; lateral orange; medial yellow; posterior black; superior red. A shorter suture is located within the red-inked superior margin, and a longer suture is located within the orange-inked lateral margin, with no designation per the requisition. The inking is reinforced at the bench. Sliced: From superior to inferior into eight slices. Lesion: One lesion identified. Description: A firm, ill-defined, white mass. Size: 1.6 x 1.3 x 0.8 cm. Slices involved: Slices 2-5. Biopsy site: A Vision shaped biopsy clip is identified within slice 5. Distance to margins: 0.1 cm from the red-inked margin; 0.3 cm from the yellow-inked margin; 0.3 cm from the green-inked margin; 0.4 cm from the black-inked margin; and greater than 1 cm from the remaining blue margin. Other: The remaining cut surfaces are yellow to white fibroadipose tissue with fibrous tissue occupying approximately 20% of the cut surface, with no additional lesions identified. Fixation: The specimen was removed on 06/19/2023, time not provided. Cold ischemic time cannot be calculated. Total fixation time is approximately 53 hours. The specimen is submitted entirely as follows: A1: Slice 1 perpendicular. A2: Slice 2. A3: Slice 3. A4: Slice 4. A5: Slice 5. A6: Slice 6. A7: Slice 7. A8-A9: Slice 8 perpendicular . B. Received in formalin with two identifiers and R axillary lymph node, is a fragment of yellow lobulated soft tissue measuring 1.7 x 1.3 x0.9 cm. Palpation reveals a lawrence lymph node candidate measuring 1.6 x 0.8 x 0.5 cm. Serially sectioned and submitted entirely in cassettes B1-B2. . Removed on 06/19/2023, time not provided. Cold ischemic time cannot be calculated. Total fixation time is approximately 53 hours. ([id number]) /MRV 06/25/2023 1431 Local . 01 Pathologist provided ICD-10: C50.911 . 01 CPT . 506107, [id number] Specimen Comment: A courtesy copy of this report has been sent to [phone] Performed at: 01 [facility] [address] [place] [address], [place], [place] [id number] MD Ihsan Tracey MD Phone: [phone]
[2023-06-19] MEDS: LACTATED RINGERS 1,000 ML 42 ML IV (13:08)
[2023-06-19 13:09] VITALS: BMI 22.6
[2023-06-19 13:15] VITALS: BP 163/71; PULSE 75; RESP 18; TEMP 37.2; O2SAT 100
--- NOTE | 2023-06-19 13:23 | SUR.PREOP ---
pre-op tylenol not given as patient has difficulty with pills and water, choking sometimes and usually takes pills in applesauce
--- NOTE | 2023-06-19 13:42 | SUR.OPER ---
Supine on padded OR bed, head on pillow, arms secured on padded arm boards at <90 degrees abduction, legs uncrossed, safety belt at thigh, tape over blanket over lower legs.
--- NOTE | 2023-06-19 13:45 | PM.PREOP ---
Pre-operative Note COVID-19 COVID-19 status: Not tested Interval Note History & Physical reviewed/Exam performed by Physician: Yes Changes to H&P: No ASA Class (for procedural sedation): III
[2023-06-19] MEDS: ACETAMINOPHEN IV 1,000 MG/100 ML VIAL 400 MG IV (14:27)
[2023-06-19] MEDS: LIDOCAINE 1% W/EPI 10 ML INJ (14:35)
[2023-06-19] MEDS: BUPIVACAINE 0.5% (PF) 30 ML VIAL INJ (14:37)
--- NOTE | 2023-06-19 15:18 | PM.OP.1 ---
Operative Date/Time/Diagnoses Date of procedure: 06/19/23 Time of procedure: 15:20 Pre-op diagnosis: Right breast invasive ductal carcinoma Post-op diagnosis: same Procedure & Clinicians Procedure: Right breast lumpectomy Right maxillary lymph node excisional biopsy Same procedure as scheduled: No (Right lymph node excised because it was palpable and larger than before) Surgeon: Mark [employer] Inspector: Jewel Hernández Anesthesia Type: General Operative Notes Procedure in detail: The patient is an 88-year-old woman who presented with a right breast invasive ductal carcinoma. She had had an ultrasound that found no abnormalities in the right axilla. She had a palpable lymph node at the time of her preoperative evaluation but it was felt to be normal in size and consistency. The patient was marked in the preoperative holding area and consent was obtained. The patient was brought to the operating room and placed on the table in the supine position with the right arm abducted on an arm board. The right breast and axilla were prepped and draped in the usual fashion and a time-out was performed. 5 cm radial incision made over the palpable breast mass in the lateral right breast. A lumpectomy was performed extending down to the fascia. A short silk stitch was placed superiorly and a long stitch laterally to orient the specimen. Once the specimen was excised it was further oriented with the paint. Was sent off in formalin. A few bleeders were cauterized in the lumpectomy cavity. We then turned to the axilla. Because the palpable node felt slightly larger than did on the preoperative evaluation a decision was made to perform an excision node. A 3.5 cm transverse incision was axillary hairline. The large firm node along with a normal sized smaller node were dissected free from the surrounding axillary contents. We then closed both wounds in layers using multiple interrupted 3-0 Vicryl dermal sutures followed by a running 4-0 Monocryl subcuticular stitch. Steri-Strips and fluffs were applied followed by a breast binder. EBL: 10 mL Specimen: Right breast lump and right axillary lymph node Post-operative Condition: stable Disposition: PACU
[2023-06-19 15:29] VITALS: BP 194/83; PULSE 79; RESP 14; TEMP 36.7; O2SAT 98
[2023-06-19 15:34] VITALS: BP 192/93; PULSE 74; RESP 13; TEMP 36.7; O2SAT 98
[2023-06-19 15:41] VITALS: BP 159/77; PULSE 79; RESP 12; TEMP 36.4; O2SAT 98
[2023-06-19 15:47] VITALS: BP 150/82; PULSE 77; RESP 15; TEMP 36.4; O2SAT 97
== END 2023-06-19 16:28 | disposition home or self-care (01) ==
PROVIDERS: Family Provider Family Medicine; PCP Family Medicine; Referring Provider Surgery; Visit Provider Surgery
PROC: (CPT 19301; principal; 2023-06-19 13:30)
DX: C50.411 Malignant neoplasm of upper-outer quadrant of right female breast (principal); Z17.0 Estrogen receptor positive status [ER+]; C77.3 Secondary and unspecified malignant neoplasm of axilla and upper limb lymph nodes
CPT/HCPCS: 38525; 19301; 82962; J0136; J1100; J2405; J2704; J3010

== ENCOUNTER → 2023-08-22 14:53 | Outpatient (CLI) | payer MEDICARE, OTHER, SELFPAY ==
[2021-10-22 15:34] VITALS: BMI 26.7
--- NOTE | 2023-08-22 14:55 | DI.RAD.S_ITS ---
PROCEDURE: XR CHEST 2V INDICATIONS: Breast cancer TECHNIQUE: 2 views of the chest were acquired. COMPARISON: [facility], , CHEST 1 VIEW, 10/13/2015, 19:57. FINDINGS: Surgical changes and devices: None. Lungs and pleura: Lungs are clear. No pleural effusions or pneumothorax. Mediastinum: Large hiatal hernia. Heart size is normal. Bones and chest wall: No suspicious bony abnormalities. Soft tissues appear unremarkable. IMPRESSION: No acute cardiopulmonary abnormality is seen. Dictated by: Tim Delaney M.D. on 08/22/2023 at 17:16 Approved by: Tim Delaney M.D. on 08/22/2023 at 17:17
[2023-08-22 16:01] LABS: Add Manual Diff / Slide Review NO; Basophils Absolute Auto 100 /uL (0-100); Basophils Percent Auto 1.2 % (0-2); Eosinophils Absolute Auto 200 /uL (0-450); Eosinophils Percent Auto 4.6 % (2-4); Hematocrit 33.2 % (36-46); Hemoglobin 11.1 g/dL (12.0-16.0); Lymphocytes Absolute Auto 2000 /uL (1100-4500); Mean Corpuscular HGB Conc 33.5 % (30-36); Mean Corpuscular Hemoglobin 29.8 PG (26-34); Monocytes Absolute Auto 400 /uL (0-900); Neutrophils Absolute Auto 2400 /uL (1500-7000); Neutrophils Percent Auto 47.2 % (50-75); Platelet Count 252 X10^3/uL (150-400); Red Blood Cell Count 3.73 X10^6/uL (4.0-5.2); Red Cell Distribution Width 14.8 % (11.6-14.8); White Blood Cell Count 5.1 X10^3/uL (4.5-11.0)
[2023-08-22 16:24] LABS: Alanine Aminotransferase 37 IU/L (<35); Albumin Globulin Ratio 1.5 (1.0-2.8); Alkaline Phosphatase 63 U/L (38-126); Aspartate Aminotransferase 41 IU/L (14-36); BUN Creatinine Ratio 26.8 (6-22); Bilirubin Total 0.6 mg/dL (0.2-1.3); Blood Urea Nitrogen 19 mg/dL (7-17); Calcium 9.1 mg/dL (8.4-10.2); Carbon Dioxide 31 mmol/L (22-32); Chloride 103 mmol/L (98-107); Estimated Glomerular Filt Rate > 60 mL/min (>60); Globulin 2.6 g/dL (1.7-4.1); Glucose 112 mg/dL (80-110); HEMOLYSIS < 15 (0-50); Potassium 4.5 mmol/L (3.4-5.1); Sodium 138 mmol/L (137-145); Total Protein 6.6 g/dL (6.3-8.2)
== END ==
PROVIDERS: Family Provider Family Medicine; PCP Family Medicine; Referring Provider Surgery; Visit Provider Surgery
DX: C50.411 Malignant neoplasm of upper-outer quadrant of right female breast (principal); Z17.0 Estrogen receptor positive status [ER+]
CPT/HCPCS: 36415; 71046; 80053; 85025; 99215

== ENCOUNTER → 2024-01-01 14:54 | Outpatient (CLI) | payer MEDICARE, OTHER, SELFPAY ==
[2021-10-22 15:34] VITALS: BMI 26.7
--- NOTE | 2024-01-01 14:55 | DI.RAD.S_ITS ---
PROCEDURE: XR SHOULDER RT MIN 2V INDICATIONS: RIGHT SHOULDER PAIN TECHNIQUE: 3 views of the shoulder were acquired. COMPARISON: None. FINDINGS: Bones: No fractures or dislocations. No suspicious bony lesions. Visualized ribs appear intact. Superior subluxation of the humeral head. No remodeling. Soft tissues: No suspicious soft tissue calcifications. IMPRESSION: Superior subluxation probably reflects chronic rotator cuff tear. No fracture. Approved by: Chris Archer M.D. on 01/01/2024 at 16:56
--- NOTE | 2024-01-01 14:55 | DI.RAD.S_ITS ---
PROCEDURE: XR SHOULDER LT MIN 2V INDICATIONS: LEFT SHOULDER PAIN TECHNIQUE: 3 views of the shoulder were acquired. COMPARISON: [facility], CR, XR SHOULDER RT MIN 2V, 01/01/2024, 14:08. FINDINGS: Bones: No fractures or dislocations. No suspicious bony lesions. Visualized ribs appear intact. Superior humeral subluxation Soft tissues: No suspicious soft tissue calcifications. IMPRESSION: Mild superior subluxation of the humeral head may reflect a rotator cuff tear. No fracture. Approved by: Chris Archer M.D. on 01/01/2024 at 16:58
== END ==
LOC: RAD 14:55
PROVIDERS: Family Provider Family Medicine; PCP Family Medicine; Referring Provider Physical Medicine & Rehabilitation; Visit Provider Physical Medicine & Rehabilitation
DX: S43.001A Unspecified subluxation of right shoulder joint, initial encounter (principal); S43.002A Unspecified subluxation of left shoulder joint, initial encounter; M75.42 Impingement syndrome of left shoulder; M25.511 Pain in right shoulder
CPT/HCPCS: 73030

== ENCOUNTER → 2024-07-18 14:59 | Outpatient (CLI) | payer MEDICARE, OTHER, SELFPAY ==
[2021-10-22 15:34] VITALS: BMI 26.7
--- NOTE | 2024-07-18 15:00 | DI.ECHO.S_ITS ---
[place] [facility]---------+ [facility] : : [address] : : [place] : : [id number] : : Phone: [phone] Echocardiogram Report + + :Name: LIZY BEE Study Date: 07/18/2024 Height: 60 in : :[facility] ReadingLocation: Weight: 116 lb : : Gender: Female BSA: 1.5 m2 : :: 1935 Age: 89 yrs BP: 129/71 mmHg: :Reason For Study: SYSTOLIC MURMUR : :Ordering Physician: MAHI, : :CARLOS Performed By: Fernando Contreras : :Referring: CARLOS CHAMPAGNE : + + Interpretation Summary Severe pulmonary hypertension is present. Normal biventricular size and systolic function. LVEF is 65-70% LA is severely dilated. Mild aortic stenosis explains the murmur on exam. There is moderate tricuspid regurgitation present. Other findings as below. When compared to TTE dated 12/22/21, pHTN has worsened. Procedure: A two-dimensional transthoracic echocardiogram with color flow and Doppler was performed. The study quality was technically good. Comparison is made with the echocardiogram of 12/22/2021. The patient was in normal sinus rhythm during the exam. Left Ventricle: The left ventricle is normal in size. There is normal left ventricular wall thickness. Proximal septal thickening is noted. There is no ventricular septal defect visualized. The ejection fraction is estimated to be 65-70%. There are no focal wall motion abnormalities. Diastolic parameters suggest a relaxation abnormality of the left ventricle, consistent with probable normal filling pressures. Right Ventricle: The right ventricle is normal in size and function. Atria: The left atrium is severely dilated. Right atrial size is normal. There is no Doppler evidence for an interatrial shunt. Mitral Valve: The mitral valve leaflets appear mildly thickened, but open well. There is trace mitral regurgitation. Aortic Valve: The aortic valve is trileaflet. The aortic valve is moderately calcified. There is mild to moderate aortic stenosis. The peak aortic velocity is 2.7 m/sec. The aortic valve mean gradient is 19.3 mmHg. The calculated aortic valve area is 1.2 cm2. There is trace aortic regurgitation. Tricuspid Valve: The tricuspid valve leaflets are thin and pliable. There is moderate tricuspid regurgitation. The right ventricular systolic pressure is estimated to be at least 57 mmHg based on an estimated right atrial pressure of 8 mm Hg. Pulmonic Valve: The pulmonic valve leaflets are thin and pliable; valve motion is normal. There is no pulmonic valvular regurgitation. Great Vessels: The aortic root is normal size. The dimensions of the ascending aorta are normal. The pulmonary artery is normal size. The IVC is dilated (diameter is greater than 2.1 cm) yet it collapses greater than 50% with a sniff. This suggests a right atrial pressure of 8 mm Hg. Pericardium/ Pleura There is no pericardial effusion. There is no pleural effusion. MMode/2D Measurements & Calculations LVIDd: 4.2 cm LVOT diam: 1.8 cm LVIDs: 2.4 cm Ao root diam: 2.6 cm FS: 42.7 % asc Aorta Diam: 3.6 cm EPSS: 0.43 cm Ao Arch Diam (Prox Trans): 1.6 cm IVSd: 0.75 cm LVPWd: 0.69 cm LV mabry. diameter/BSA (cm/m^2): 2.8 LV sys. diameter/BSA (cm/m^2): 1.6 LA A2 area: 15.9 cm2 RA long axis: 3.8 cm LA A4 area: 22.0 cm2 RA area: 9.2 cm2 LA length (vol): 5.4 cm RA vol: 18.7 ml LA vol: 55.5 ml RA : 12.6 ml/m2 LA vol index: 37.5 ml/m2 IVC diam: 2.1 cm RVD1 (basal): 3.3 cm RVD2 (mid): 2.5 cm TAPSE: 2.5 cm Doppler Measurements & Calculations Ao V2 max: 270.2 cm/sec LVOT Max Saúl: 135.1 cm/sec Ao V2 mean: 212.7 cm/sec LV V1 max P.3 mmHg Ao max P.2 mmHg LV V1 VTI: 27.9 cm Ao mean P.3 mmHg DOUGLAS(I,D): 1.2 cm2 Ao V2 VTI: 59.9 cm DOUGLAS(V,D): 1.3 cm2 sev ratio: 0.47 DOUGLAS indexed to BSA (cm^2/m^2): 0.79 MV E max saúl: 83.8 cm/sec TR max saúl: 351.5 cm/sec MV A max saúl: 109.1 cm/sec TR max P.4 mmHg MV E/A: 0.77 PA V2 max: 156.1 cm/sec Med Peak E' Saúl: 6.5 cm/sec PA V2 mean: 100.2 cm/sec E/E' med: 12.9 PA mean P.5 mmHg Lat Peak E' Saúl: 8.7 cm/sec PA pr(Accel): 56.7 mmHg E/E' lat: 9.6 E/e' average: 11.2 MV dec time: 0.26 sec SV(LVOT): 70.4 ml Reading Physician:04:39 PM
== END ==
PROVIDERS: Family Provider Family Medicine; PCP Family Medicine; Referring Provider Family Medicine; Visit Provider Family Medicine
DX: R01.1 Cardiac murmur, unspecified (principal); I27.20 Pulmonary hypertension, unspecified; I35.0 Nonrheumatic aortic (valve) stenosis; I07.1 Rheumatic tricuspid insufficiency
CPT/HCPCS: 93306

== ENCOUNTER 2024-08-08 09:00 | Outpatient (RCR) | payer MEDICARE, OTHER, SELFPAY ==
[2021-10-22 15:34] VITALS: BMI 26.7
--- NOTE | 2024-01-15 16:15 | PT.OIE ---
Current Diagnoses Low back pain, unspecified (01/15/24) Muscle weakness (generalized) (01/15/24) Unsteadiness on feet (01/15/24) Past Medical History (Last Reviewed 01/02/24 @ 14:15 by Al Kunz DO) Anemia Facet arthropathy, lumbar Gait instability GERD (gastroesophageal reflux disease) Impingement syndrome of left shoulder Lumbar radiculopathy Multilevel foraminal stenosis Osteoporosis Scoliosis Past Surgical History (Last Reviewed 01/02/24 @ 14:15 by Al Kunz DO) H/O bladder repair surgery Visit Care Team Role Provider Type Jia Sheridan MD Attending Provider Physician Family Provider Primary Care Provider Referring Provider Specialty: Family Practice Address: [address] [place] [address] [place], [facility] Email: [email or web address] Physical Therapy Initial Evaluation PT-OP-A Visit Information Start: 01/15/24 16:42 Freq: Status: Active Protocol: Document 01/15/24 15:35 DCW (Rec: 01/15/24 16:52 DCW [id number]) Out-Patient Physical Therapy Visit Information Visit Information Visit Type Initial Evaluation Visit Note Arrived 27 minutes late Visit Start Time 15:35 Visit Stop Time 14:05 Visit Number 1 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 Pt notes she uses her 4WW around the house, which makes her feel more stable, but she cannot get the walker in or out of her car, so she relies on a SPC out in the community. 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 Pt unfortunately lost her earlier this year, and was also diagnosed with breast cancer, although she notes the cancer was excised recently and she believes it is mostly gone. Pt denies any falls, but feels that due to weakness in her legs and her inability to stand up straight, a fall is getting more likely. 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 Treatment Goals Patient/Caregiver Goals Decrease risk of falls PT-OP-C Subjective Start: 01/15/24 16:42 Freq: Status: Active Protocol: Document 01/15/24 15:35 DCW (Rec: 01/15/24 16:52 DCW [id number]) OP-PT Subjective Patient Comments Patient Comments I'm just going downhill Patient Reported Progress Worse Patient Questionnaires Oswestry Low Back Index Oswestry Score 25/50 = 50% Oswestry Impairment 40 to 59% Impaired (Score 40- 59) PT-OP-D Balance Start: 01/15/24 16:42 Freq: Status: Active Protocol: Document 01/15/24 15:35 DCW (Rec: 01/15/24 16:52 DCW [id number]) Balance Tests Yanez Balance Test Yanez Balance Test Score 23/56 Yanez Impairment Rating 40 to 59% Impaired (Score 23- 33) Yanez Balance Assessment Evaluation Sitting to Standing Ability Several Tries w/Hands Unsupported Stance Safely- 2 minutes Sitting Unsupported, Feet on Floor 30 seconds Standing to Sitting Ability Assist, Control w/Hands Transfer Ability Supervision, Verbal Cues Unsupported Stance- Eyes Closed Falls Without Assistance Unsupported Stance- Eyes Open Assist to attain, 15 secs Reaching Forward Standing Safely, 2 inches Pick- Up Object From Floor Requires Supervision Look Behind Shoulder - Standing Supervision w/Turning Turning 360 Degrees Supervision/Verbal Cues Unsupported Stance, Alternating Feet on 2 Steps w/Minimum Assist Stair Unsupported Tandem Stance Small Step- 30 seconds Unilateral Leg Stance Lifts Leg/Unable to Hold Total Score Yanez Total Score (out of 56 points) 23 Yanez Impairment Rating 40 to 59% Impaired (Score 23- 33) PT-OP-E Functional Tests Start: 01/15/24 16:42 Freq: Status: Active Protocol: Document 01/15/24 15:35 DCW (Rec: 01/15/24 16:52 DCW [id number]) Functional Tests Five Times Sit to Stand Test Score 1:51.63 Comments Table at lowest height PT-OP-J Posture/Palpation/Skin Start: 01/15/24 16:42 Freq: Status: Active Protocol: Document 01/15/24 15:35 DCW (Rec: 01/15/24 16:52 DCW [id number]) Posture Evaluation Comments Posture Comments Pt presents with severe scoliosis and worsening excessive kyphosis. PT-OP-M Strength Start: 01/15/24 16:42 Freq: Status: Active Protocol: Document 01/15/24 15:35 DCW (Rec: 01/15/24 16:52 DCW [id number]) Hip Strength Hip Manual Muscle Testing Right Flexion (L2) 3+ Fair+ Abduction 4- Good- Adduction 4- Good- Left Flexion (L2) 3+ Fair+ Abduction 4- Good- Adduction 4- Good- Knee Strength Knee Manual Muscle Testing Right Flexion (S2) 4 Good Extension (L3) 4 Good Left Flexion (S2) 4 Good Extension (L3) 4 Good Ankle/Foot Strength Ankle and Foot Manual Muscle Testing Right Dorsiflexion (L4) 3+ Fair+ Left Dorsiflexion (L4) 3+ Fair+ PT-OP-T Assessment and Plan Start: 01/15/24 16:42 Freq: Status: Active Protocol: Document 01/15/24 15:35 DCW (Rec: 01/15/24 17:53 DCW [id number]) Physical Therapy Assessment Rehab Potential Rehabilitation Potential Fair Evaluation Complexity Number of Personal Factors/Comorbidities 3 or More Number of Body Systems Impaired 4 or More Clinical Presentation at Evaluation Unstable Impairments Impairments Activity Tolerance,Balance, Functional Activities, Functional Mobility,Gait,Pain, Posture,Soft Tissue Mobility, Strength,Tone Goals Three Impairment Pt completes a five times sit to stand test in 1:51.63 Manager Audio Goal (LTG) Pt to complete her 5xStS test <60 seconds in order to demonstrate an improvement in activity tolerance. LTG Duration 04/14/24 Two Impairment Pt presents as a high falls risk, per Yanez score (23/56) Manager Audio Goal (LTG) Pt to demonstrate a decrease in falls risk by improving Yanez score by at least seven points, to 30/56 LTG Duration 04/14/24 One Impairment Pt does not have an appropriate home exercise program Short Term Goal (STG) Pt to be independent and compliant with an appropriate HEP STG Duration 02/15/24 Assessment Summary Assessment Pt presents with signs and symptoms consistent with referring diagnosis. Pt displays a very high falls risk, per Yanez score (23/56), as well as LE weakness, poor activity tolerance, decreased functional mobility, and general weakness, in addition to very poor posture secondary to degenerative changes through entire spine. Pt has been seen many times in this clinic for various complaints, and has significantly functionally declined since she was last treated two years ago. Pt may benefit from skilled therapeutic intervention focusing on balance training, LE strengthening, lumbar mobility /stretching, functional mobility, and activity tolerance. Physical Therapy Plan Frequency and Duration Frequency of Treatment 2x/Week Plan of Care Start Date 01/15/24 Plan of Care End Date 04/14/24 Therapeutic Interventions Therapeutic Interventions Balance Training,Coordination Training,Gait Training,Home Exercise Program,Joint Mobilizations,Manual Therapy, Neuromuscular Re-education, Patient/Caregiver Education, Self-Care/Home Management,Soft Tissue Mobilization, Therapeutic Activities, Therapeutic Exercises Modalities Cold Pack/Ice Massage,Electric Stimulation,Hot Packs Next Visit Focus/Plan Next Note Type Treatment Note Next Visit Plan LE strengthening, balance challenges, gait training, posture
--- NOTE | 2024-01-15 16:15 | PT.OPPOC ---
Physical, Occupational & Speech Therapy At [facility] Current Diagnoses Low back pain, unspecified (01/15/24) Muscle weakness (generalized) (01/15/24) Unsteadiness on feet (01/15/24) Visit Care Team Role Provider Type Jia Sheridan MD Attending Provider Physician Family Provider Primary Care Provider Referring Provider Specialty: Family Practice Address: [address] [place] [address], [facility] [place], [facility] Email: [email or web address] Plan Of Care PT-OP-B Current Condition Start: 01/15/24 16:42 Freq: Status: Active Protocol: Document 01/15/24 15:35 DCW (Rec: 01/15/24 17:44 DCW [id number]) Current Condition History of Current Condition Onset Date Multi-year history Current Complaints Low back pain, leg weakness, poor balance History of Current Condition Pt is an 88 year old female very well known to this clinic presenting with worsening low back pain, imbalance, leg weakness, and increased fear of falling. Pt notes she uses her 4WW around the house, which makes her feel more stable, but she cannot get the walker in or out of her car, so she relies on a SPC out in the community. 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 Pt unfortunately lost her earlier this year, and was also diagnosed with breast cancer, although she notes the cancer was excised recently and she believes it is mostly gone. Pt denies any falls, but feels that due to weakness in her legs and her inability to stand up straight, a fall is getting more likely. 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 Treatment Goals Patient/Caregiver Goals Decrease risk of falls PT-OP-T Assessment and Plan Start: 01/15/24 16:42 Freq: Status: Active Protocol: Document 01/15/24 15:35 DCW (Rec: 01/15/24 17:53 DCW [id number]) Physical Therapy Assessment Rehab Potential Rehabilitation Potential Fair Evaluation Complexity Number of Personal Factors/Comorbidities 3 or More Number of Body Systems Impaired 4 or More Clinical Presentation at Evaluation Unstable Impairments Impairments Activity Tolerance,Balance, Functional Activities, Functional Mobility,Gait,Pain, Posture,Soft Tissue Mobility, Strength,Tone Goals Three Impairment Pt completes a five times sit to stand test in 1:51.63 Paleologist Goal (LTG) Pt to complete her 5xStS test <60 seconds in order to demonstrate an improvement in activity tolerance. LTG Duration 04/14/24 Two Impairment Pt presents as a high falls risk, per Yanez score (23/56) Custodial Goal (LTG) Pt to demonstrate a decrease in falls risk by improving Yanez score by at least seven points, to 30/56 LTG Duration 04/14/24 One Impairment Pt does not have an appropriate home exercise program Short Term Goal (STG) Pt to be independent and compliant with an appropriate HEP STG Duration 02/15/24 Assessment Summary Assessment Pt presents with signs and symptoms consistent with referring diagnosis. Pt displays a very high falls risk, per Yanez score (23/56), as well as LE weakness, poor activity tolerance, decreased functional mobility, and general weakness, in addition to very poor posture secondary to degenerative changes through entire spine. Pt has been seen many times in this clinic for various complaints, and has significantly functionally declined since she was last treated two years ago. Pt may benefit from skilled therapeutic intervention focusing on balance training, LE strengthening, lumbar mobility /stretching, functional mobility, and activity tolerance. Physical Therapy Plan Frequency and Duration Frequency of Treatment 2x/Week Plan of Care Start Date 01/15/24 Plan of Care End Date 04/14/24 Therapeutic Interventions Therapeutic Interventions Balance Training,Coordination Training,Gait Training,Home Exercise Program,Joint Mobilizations,Manual Therapy, Neuromuscular Re-education, Patient/Caregiver Education, Self-Care/Home Management,Soft Tissue Mobilization, Therapeutic Activities, Therapeutic Exercises Modalities Cold Pack/Ice Massage,Electric Stimulation,Hot Packs Next Visit Focus/Plan Next Note Type Treatment Note Next Visit Plan LE strengthening, balance challenges, gait training, posture Plan of Care Dates Plan of Care Start Date 01/15/24 Plan of Care End Date 04/14/24 Electronically Signed by: Wallace Wilson, PT 01/16/24 6171 If you are in agreement with this Plan of Care, please return a signed and dated copy. I have reviewed this Plan of Care and certify that the skilled therapy services above are required to meet the patient?s needs. Physician Signature Date Printed Name and Credentials Clinical Instructor Signature Printed Name and Credentials
--- NOTE | 2024-01-18 13:02 | PT.OTN ---
Current Diagnoses Low back pain, unspecified (01/18/24) Muscle weakness (generalized) (01/18/24) Unsteadiness on feet (01/18/24) Physical Therapy Treatment Note PT-OP-A Visit Information Start: 01/15/24 16:42 Freq: Status: Active Protocol: Document 01/18/24 12:33 DCW (Rec: 01/18/24 13:02 DCW [id number]) Out-Patient Physical Therapy Visit Information Visit Information Visit Type Treatment Note Visit Note Arrived 18 minutes late Visit Start Time 12:33 Visit Stop Time 13:00 Visit Number 2 Number of WINDOWS LAPTOP TECHNICIAN Visits 0 Evaluation Information Evaluation Date 01/15/24 PT-OP-B Current Condition Start: 01/15/24 16:42 Freq: Status: Active Protocol: Document 01/15/24 15:35 DCW (Rec: 01/15/24 17:44 DCW [id number]) Current Condition History of Current Condition Onset Date Multi-year history Current Complaints Low back pain, leg weakness, poor balance History of Current Condition Pt is an 88 year old female very well known to this clinic presenting with worsening low back pain, imbalance, leg weakness, and increased fear of falling. Pt notes she uses her 4WW around the house, which makes her feel more stable, but she cannot get the walker in or out of her car, so she relies on a SPC out in the community. 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 Pt unfortunately lost her earlier this year, and was also diagnosed with breast cancer, although she notes the cancer was excised recently and she believes it is mostly gone. Pt denies any falls, but feels that due to weakness in her legs and her inability to stand up straight, a fall is getting more likely. Low back pain is typically worse with lying supine in bed, bending over, or trying to molded goods spot picker something heavy. Treatment Goals Patient/Caregiver Goals Decrease risk of falls PT-OP-C Subjective Start: 01/15/24 16:42 Freq: Status: Active Protocol: Document 01/18/24 12:33 DCW (Rec: 01/18/24 13:02 DCW [id number]) OP-PT Subjective Patient Comments Patient Comments Pt apologizes for running late . Notes she woke up yesterday and could barely get up because her back was bothering her. PT-OP-D Balance Start: 01/15/24 16:42 Freq: Status: Active Protocol: Document 01/15/24 15:35 DCW (Rec: 01/15/24 16:52 DCW [id number]) Balance Tests Yanez Balance Test Yanez Balance Test Score 23/56 Yanez Impairment Rating 40 to 59% Impaired (Score 23- 33) Yanez Balance Assessment Evaluation Sitting to Standing Ability Several Tries w/Hands Unsupported Stance Safely- 2 minutes Sitting Unsupported, Feet on Floor 30 seconds Standing to Sitting Ability Assist, Control w/Hands Transfer Ability Supervision, Verbal Cues Unsupported Stance- Eyes Closed Falls Without Assistance Unsupported Stance- Eyes Open Assist to attain, 15 secs Reaching Forward Standing Safely, 2 inches Pick- Up Object From Floor Requires Supervision Look Behind Shoulder - Standing Supervision w/Turning Turning 360 Degrees Supervision/Verbal Cues Unsupported Stance, Alternating Feet on 2 Steps w/Minimum Assist Stair Unsupported Tandem Stance Small Step- 30 seconds Unilateral Leg Stance Lifts Leg/Unable to Hold Total Score Yanez Total Score (out of 56 points) 23 Yanez Impairment Rating 40 to 59% Impaired (Score 23- 33) PT-OP-E Functional Tests Start: 01/15/24 16:42 Freq: Status: Active Protocol: Document 01/15/24 15:35 DCW (Rec: 01/15/24 16:52 DCW [id number]) Functional Tests Five Times Sit to Stand Test Score 1:51.63 Comments Table at lowest height PT-OP-J Posture/Palpation/Skin Start: 01/15/24 16:42 Freq: Status: Active Protocol: Document 01/15/24 15:35 DCW (Rec: 01/15/24 16:52 DCW [id number]) Posture Evaluation Comments Posture Comments Pt presents with severe scoliosis and worsening excessive kyphosis. PT-OP-M Strength Start: 01/15/24 16:42 Freq: Status: Active Protocol: Document 01/15/24 15:35 DCW (Rec: 01/15/24 16:52 DCW [id number]) Hip Strength Hip Manual Muscle Testing Right Flexion (L2) 3+ Fair+ Abduction 4- Good- Adduction 4- Good- Left Flexion (L2) 3+ Fair+ Abduction 4- Good- Adduction 4- Good- Knee Strength Knee Manual Muscle Testing Right Flexion (S2) 4 Good Extension (L3) 4 Good Left Flexion (S2) 4 Good Extension (L3) 4 Good Ankle/Foot Strength Ankle and Foot Manual Muscle Testing Right Dorsiflexion (L4) 3+ Fair+ Left Dorsiflexion (L4) 3+ Fair+ PT-OP-Q Treatments Start: 01/15/24 16:42 Freq: Status: Active Protocol: Document 01/18/24 12:33 DCW (Rec: 01/18/24 13:02 DCW [id number]) Cardio Equipment Recumbent Elliptical (Biodex) Duration (Minutes) 4 Resistance 3 Seat Position 7 Therapeutic Exercises Standing Exercises Heel Raises Standing Exercise Name Heel Raises Side bilateral Resistance 2# Equipment Used // bars Hamstring Curls Standing Exercise Name Hamstring Curls Side bilateral Resistance 2# Equipment Used // bars Other Exercises Toe Taps Other Exercise Name Toe-taps Side bilateral Resistance 2# Equipment Used // bars, 4 step Side-stepping Other Exercise Name Side-stepping Reps/Minutes // bars Neuro Re-Education Treatment Balance Activities Foam Details NBOS, Head turns Tandem Details Tandem Stance Equipment // bars PT-OP-T Assessment and Plan Start: 01/15/24 16:42 Freq: Status: Active Protocol: Document 01/18/24 12:33 DCW (Rec: 01/18/24 13:02 DCW [id number]) Physical Therapy Assessment Impairments Impairments Activity Tolerance,Balance, Functional Activities, Functional Mobility,Gait,Pain, Posture,Soft Tissue Mobility, Strength,Tone Goals Three Impairment Pt completes a five times sit to stand test in 1:51.63 Half-Way Goal (LTG) Pt to complete her 5xStS test <60 seconds in order to demonstrate an improvement in activity tolerance. LTG Duration 04/14/24 Two Impairment Pt presents as a high falls risk, per Yanez score (23/56) [employer] Obiee Developer Goal (LTG) Pt to demonstrate a decrease in falls risk by improving Yanez score by at least seven points, to 30/56 LTG Duration 04/14/24 One Impairment Pt does not have an appropriate home exercise program Short Term Goal (STG) Pt to be independent and compliant with an appropriate HEP STG Duration 02/15/24 Assessment Summary Assessment Shortened session due to late arrival. Pt tolerated treatment fairly well. Required CGA with all balance challenges. Continue to work on LE/core strengthening, balance challenges, and functional mobility. Physical Therapy Plan Frequency and Duration Frequency of Treatment 2x/Week Plan of Care Start Date 01/15/24 Plan of Care End Date 04/14/24 Therapeutic Interventions Therapeutic Interventions Balance Training,Coordination Training,Gait Training,Home Exercise Program,Joint Mobilizations,Manual Therapy, Neuromuscular Re-education, Patient/Caregiver Education, Self-Care/Home Management,Soft Tissue Mobilization, Therapeutic Activities, Therapeutic Exercises Modalities Cold Pack/Ice Massage,Electric Stimulation,Hot Packs Next Visit Focus/Plan Next Note Type Treatment Note Next Visit Plan LE strengthening, balance challenges, gait training, posture
--- NOTE | 2024-01-22 16:00 | PT.OTN ---
Current Diagnoses Low back pain, unspecified (01/22/24) Muscle weakness (generalized) (01/22/24) Unsteadiness on feet (01/22/24) Physical Therapy Treatment Note PT-OP-A Visit Information Start: 01/15/24 16:42 Freq: Status: Active Protocol: Document 01/22/24 15:15 DCW (Rec: 01/22/24 16:00 DCW [id number]) Out-Patient Physical Therapy Visit Information Visit Information Visit Type Treatment Note Visit Start Time 15:15 Visit Stop Time 16:00 Visit Number 3 Number of TIMBER CUTTER Visits 0 Evaluation Information Evaluation Date 01/15/24 PT-OP-B Current Condition Start: 01/15/24 16:42 Freq: Status: Active Protocol: Document 01/15/24 15:35 DCW (Rec: 01/15/24 17:44 DCW [id number]) Current Condition History of Current Condition Onset Date Multi-year history Current Complaints Low back pain, leg weakness, poor balance History of Current Condition Pt is an 88 year old female very well known to this clinic presenting with worsening low back pain, imbalance, leg weakness, and increased fear of falling. Pt notes she uses her 4WW around the house, which makes her feel more stable, but she cannot get the walker in or out of her car, so she relies on a SPC out in the community. 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 Pt unfortunately lost her earlier this year, and was also diagnosed with breast cancer, although she notes the cancer was excised recently and she believes it is mostly gone. Pt denies any falls, but feels that due to weakness in her legs and her inability to stand up straight, a fall is getting more likely. Low back pain is typically worse with lying supine in bed, bending over, or trying to poultry picker something heavy. Treatment Goals Patient/Caregiver Goals Decrease risk of falls PT-OP-C Subjective Start: 01/15/24 16:42 Freq: Status: Active Protocol: Document 01/22/24 15:15 DCW (Rec: 01/22/24 16:00 DCW [id number]) OP-PT Subjective Patient Comments Patient Comments I'd be so happy if I could get more than three hours of sleep at a time. PT-OP-D Balance Start: 01/15/24 16:42 Freq: Status: Active Protocol: Document 01/15/24 15:35 DCW (Rec: 01/15/24 16:52 NJW [id number]) Balance Tests Yanez Balance Test Yanez Balance Test Score 23/56 Yanez Impairment Rating 40 to 59% Impaired (Score 23- 33) Yanez Balance Assessment Evaluation Sitting to Standing Ability Several Tries w/Hands Unsupported Stance Safely- 2 minutes Sitting Unsupported, Feet on Floor 30 seconds Standing to Sitting Ability Assist, Control w/Hands Transfer Ability Supervision, Verbal Cues Unsupported Stance- Eyes Closed Falls Without Assistance Unsupported Stance- Eyes Open Assist to attain, 15 secs Reaching Forward Standing Safely, 2 inches Pick- Up Object From Floor Requires Supervision Look Behind Shoulder - Standing Supervision w/Turning Turning 360 Degrees Supervision/Verbal Cues Unsupported Stance, Alternating Feet on 2 Steps w/Minimum Assist Stair Unsupported Tandem Stance Small Step- 30 seconds Unilateral Leg Stance Lifts Leg/Unable to Hold Total Score Yanez Total Score (out of 56 points) 23 Yanez Impairment Rating 40 to 59% Impaired (Score 23- 33) PT-OP-E Functional Tests Start: 01/15/24 16:42 Freq: Status: Active Protocol: Document 01/15/24 15:35 DCW (Rec: 01/15/24 16:52 DCW [id number]) Functional Tests Five Times Sit to Stand Test Score 1:51.63 Comments Table at lowest height PT-OP-J Posture/Palpation/Skin Start: 01/15/24 16:42 Freq: Status: Active Protocol: Document 01/15/24 15:35 DCW (Rec: 01/15/24 16:52 NJW [id number]) Posture Evaluation Comments Posture Comments Pt presents with severe scoliosis and worsening excessive kyphosis. PT-OP-M Strength Start: 01/15/24 16:42 Freq: Status: Active Protocol: Document 01/15/24 15:35 DCW (Rec: 01/15/24 16:52 DCW [id number]) Hip Strength Hip Manual Muscle Testing Right Flexion (L2) 3+ Fair+ Abduction 4- Good- Adduction 4- Good- Left Flexion (L2) 3+ Fair+ Abduction 4- Good- Adduction 4- Good- Knee Strength Knee Manual Muscle Testing Right Flexion (S2) 4 Good Extension (L3) 4 Good Left Flexion (S2) 4 Good Extension (L3) 4 Good Ankle/Foot Strength Ankle and Foot Manual Muscle Testing Right Dorsiflexion (L4) 3+ Fair+ Left Dorsiflexion (L4) 3+ Fair+ PT-OP-Q Treatments Start: 01/15/24 16:42 Freq: Status: Active Protocol: Document 01/22/24 15:15 DCW (Rec: 01/22/24 16:00 DCW [id number]) Cardio Equipment Recumbent Stepper (Sci-Fit) Duration (Minutes) 5 Resistance 2 Seat Position 11 Gym Equipment Shuttle Balance Red Details WBOS, Staggered Stance Comments Min A Therapeutic Exercises Standing Exercises Wall Posture Standing Exercise Name Straightening up against wall (with pillow) Reps/Minutes 10 hold x5 Other Exercises Toe Taps Other Exercise Name Toe-taps Side bilateral Resistance 2# Equipment Used // bars, 6 step Neuro Re-Education Treatment Balance Activities Hurdles Details Hurdles Equipment // bars, 2# ankle weights Comments Forward, Side-stepping Tandem Details Tandem Stance Equipment // bars PT-OP-T Assessment and Plan Start: 01/15/24 16:42 Freq: Status: Active Protocol: Document 01/22/24 15:15 DCW (Rec: 01/22/24 16:00 DCW [id number]) Physical Therapy Assessment Impairments Impairments Activity Tolerance,Balance, Functional Activities, Functional Mobility,Gait,Pain, Posture,Soft Tissue Mobility, Strength,Tone Goals Three Impairment Pt completes a five times sit to stand test in 1:51.63 Retirement Goal (LTG) Pt to complete her 5xStS test <60 seconds in order to demonstrate an improvement in activity tolerance. LTG Duration 04/14/24 Two Impairment Pt presents as a high falls risk, per Yanez score (23/56) Retirement Goal (LTG) Pt to demonstrate a decrease in falls risk by improving Yanez score by at least seven points, to 30/56 LTG Duration 04/14/24 One Impairment Pt does not have an appropriate home exercise program Short Term Goal (STG) Pt to be independent and compliant with an appropriate HEP STG Duration 02/15/24 Assessment Summary Assessment Did well today with balance challenges. Pt required a couple brief rest breaks, but did much better than expected on Shuttle balance. Continue to focus on dynamic balance, gait, core/hip strengthening, and posture. Physical Therapy Plan Frequency and Duration Frequency of Treatment 2x/Week Plan of Care Start Date 01/15/24 Plan of Care End Date 04/14/24 Therapeutic Interventions Therapeutic Interventions Balance Training,Coordination Training,Gait Training,Home Exercise Program,Joint Mobilizations,Manual Therapy, Neuromuscular Re-education, Patient/Caregiver Education, Self-Care/Home Management,Soft Tissue Mobilization, Therapeutic Activities, Therapeutic Exercises Modalities Cold Pack/Ice Massage,Electric Stimulation,Hot Packs Next Visit Focus/Plan Next Note Type Treatment Note Next Visit Plan LE strengthening, balance challenges, gait training, posture
--- NOTE | 2024-01-25 16:23 | PT.OTN ---
Current Diagnoses Low back pain, unspecified (01/25/24) Muscle weakness (generalized) (01/25/24) Unsteadiness on feet (01/25/24) Physical Therapy Treatment Note PT-OP-A Visit Information Start: 01/15/24 16:42 Freq: Status: Active Protocol: Document 01/25/24 14:16 AB (Rec: 01/25/24 16:23 AB [id number]) Out-Patient Physical Therapy Visit Information Visit Information Visit Type Treatment Note Visit Note Access Code: [email or web address] Visit Start Time 15:20 Visit Stop Time 16:10 Visit Number 4 Number of YARD SPOTTER Visits 1 Evaluation Information Evaluation Date 01/15/24 PT-OP-B Current Condition Start: 01/15/24 16:42 Freq: Status: Active Protocol: Document 01/15/24 15:35 DCW (Rec: 01/15/24 17:44 DCW [id number]) Current Condition History of Current Condition Onset Date Multi-year history Current Complaints Low back pain, leg weakness, poor balance History of Current Condition Pt is an 88 year old female very well known to this clinic presenting with worsening low back pain, imbalance, leg weakness, and increased fear of falling. Pt notes she uses her 4WW around the house, which makes her feel more stable, but she cannot get the walker in or out of her car, so she relies on a SPC out in the community. 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 Pt unfortunately lost her earlier this year, and was also diagnosed with breast cancer, although she notes the cancer was excised recently and she believes it is mostly gone. Pt denies any falls, but feels that due to weakness in her legs and her inability to stand up straight, a fall is getting more likely. Low back pain is typically worse with lying supine in bed, bending over, or trying to pick up attendant something heavy. Treatment Goals Patient/Caregiver Goals Decrease risk of falls PT-OP-C Subjective Start: 01/15/24 16:42 Freq: Status: Active Protocol: Document 01/25/24 14:16 AB (Rec: 01/25/24 16:23 AB [id number]) OP-PT Subjective Patient Comments Patient Comments Patient reports she has hand no falls since previous session. Patient comments PT was talking about checking her height. PT-OP-D Balance Start: 01/15/24 16:42 Freq: Status: Active Protocol: Document 01/15/24 15:35 DCW (Rec: 01/15/24 16:52 DCW [id number]) Balance Tests Yanez Balance Test Yanez Balance Test Score 23/56 Yanez Impairment Rating 40 to 59% Impaired (Score 23- 33) Yanez Balance Assessment Evaluation Sitting to Standing Ability Several Tries w/Hands Unsupported Stance Safely- 2 minutes Sitting Unsupported, Feet on Floor 30 seconds Standing to Sitting Ability Assist, Control w/Hands Transfer Ability Supervision, Verbal Cues Unsupported Stance- Eyes Closed Falls Without Assistance Unsupported Stance- Eyes Open Assist to attain, 15 secs Reaching Forward Standing Safely, 2 inches Pick- Up Object From Floor Requires Supervision Look Behind Shoulder - Standing Supervision w/Turning Turning 360 Degrees Supervision/Verbal Cues Unsupported Stance, Alternating Feet on 2 Steps w/Minimum Assist Stair Unsupported Tandem Stance Small Step- 30 seconds Unilateral Leg Stance Lifts Leg/Unable to Hold Total Score Yanez Total Score (out of 56 points) 23 Yanez Impairment Rating 40 to 59% Impaired (Score 23- 33) PT-OP-E Functional Tests Start: 01/15/24 16:42 Freq: Status: Active Protocol: Document 01/15/24 15:35 DCW (Rec: 01/15/24 16:52 DCW [id number]) Functional Tests Five Times Sit to Stand Test Score 1:51.63 Comments Table at lowest height PT-OP-J Posture/Palpation/Skin Start: 01/15/24 16:42 Freq: Status: Active Protocol: Document 01/15/24 15:35 DCW (Rec: 01/15/24 16:52 DCW [id number]) Posture Evaluation Comments Posture Comments Pt presents with severe scoliosis and worsening excessive kyphosis. PT-OP-M Strength Start: 01/15/24 16:42 Freq: Status: Active Protocol: Document 01/15/24 15:35 DCW (Rec: 01/15/24 16:52 DCW [id number]) Hip Strength Hip Manual Muscle Testing Right Flexion (L2) 3+ Fair+ Abduction 4- Good- Adduction 4- Good- Left Flexion (L2) 3+ Fair+ Abduction 4- Good- Adduction 4- Good- Knee Strength Knee Manual Muscle Testing Right Flexion (S2) 4 Good Extension (L3) 4 Good Left Flexion (S2) 4 Good Extension (L3) 4 Good Ankle/Foot Strength Ankle and Foot Manual Muscle Testing Right Dorsiflexion (L4) 3+ Fair+ Left Dorsiflexion (L4) 3+ Fair+ PT-OP-Q Treatments Start: 01/15/24 16:42 Freq: Status: Active Protocol: Document 01/25/24 14:16 AB (Rec: 01/25/24 16:23 AB [id number]) Gym Equipment Shuttle Balance Red Details WBOS, Staggered Stance Comments Min A to CGA, head turns and visual scanning Therapeutic Exercises Sitting Exercises seated hip abd with band Sitting Exercise Name HEP Side bilateral Resistance level 3 [place] green band Reps/Minutes one min hold for activation X15 without hold Comments verbal cues Standing Exercises sit to stand Standing Exercise Name with UE use HEP Side bilateral Reps/Minutes X2 and X 3 Comments verbal cues to lean fwd Wall Posture Standing Exercise Name Straightening up against wall (with pillow) Equipment Used Pt questions height, in this position with paper on head [id number] in Reps/Minutes X3 Comments VC to hold posture as long as able when stepping away from wall Heel Raises Standing Exercise Name Heel Raises Side bilateral Equipment Used // bars Reps/Minutes X12 Comments VC to lower heels to floor slowly Neuro Re-Education Treatment Balance Activities retro stepping Details CGA hands abov bars Reps/Duration 10 feet Hurdles Details Hurdles Equipment // bars, with UE use Comments Forward, Side-stepping Tandem Details tandem stepping Equipment hands above parallel bars CGA Reps/Duration 10 feet PT-OP-T Assessment and Plan Start: 01/15/24 16:42 Freq: Status: Active Protocol: Document 01/25/24 14:16 AB (Rec: 01/25/24 16:23 AB [id number]) Physical Therapy Assessment Goals Three Impairment Pt completes a five times sit to stand test in 1:51.63 Senior Care Goal (LTG) Pt to complete her 5xStS test <60 seconds in order to demonstrate an improvement in activity tolerance. LTG Duration 04/14/24 Two Impairment Pt presents as a high falls risk, per Yanez score (23/56) Policewoman Goal (LTG) Pt to demonstrate a decrease in falls risk by improving Yanez score by at least seven points, to 30/56 LTG Duration 04/14/24 One Impairment Pt does not have an appropriate home exercise program Short Term Goal (STG) Pt to be independent and compliant with an appropriate HEP STG Duration 02/15/24 Assessment Summary Assessment Stacey able to transfer sit to stand with a less quad dominant pattern, but fatigues rapidly required a brief rest post X 2 then performed 3 more sit to stands. Verbal cues for posture throughout session with good response. Physical Therapy Plan Frequency and Duration Frequency of Treatment 2x/Week Plan of Care Start Date 01/15/24 Plan of Care End Date 04/14/24 Next Visit Focus/Plan Next Note Type Treatment Note Next Visit Plan LE strengthening, balance challenges, gait training, posture
--- NOTE | 2024-02-01 13:45 | PT.OTN ---
Current Diagnoses Low back pain, unspecified (02/01/24) Muscle weakness (generalized) (02/01/24) Unsteadiness on feet (02/01/24) Physical Therapy Treatment Note PT-OP-A Visit Information Start: 01/15/24 16:42 Freq: Status: Active Protocol: Document 02/01/24 13:09 SP (Rec: 02/01/24 13:46 SP [id number]) Out-Patient Physical Therapy Visit Information Visit Information Visit Type Treatment Note Visit Start Time 13:03 Visit Stop Time 13:45 Visit Number 5 Number of DICE PERSON Visits 2 Evaluation Information Evaluation Date 01/15/24 PT-OP-B Current Condition Start: 01/15/24 16:42 Freq: Status: Active Protocol: Document 01/15/24 15:35 DCW (Rec: 01/15/24 17:44 DCW [id number]) Current Condition History of Current Condition Onset Date Multi-year history Current Complaints Low back pain, leg weakness, poor balance History of Current Condition Pt is an 88 year old female very well known to this clinic presenting with worsening low back pain, imbalance, leg weakness, and increased fear of falling. Pt notes she uses her 4WW around the house, which makes her feel more stable, but she cannot get the walker in or out of her car, so she relies on a SPC out in the community. 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 Pt unfortunately lost her earlier this year, and was also diagnosed with breast cancer, although she notes the cancer was excised recently and she believes it is mostly gone. Pt denies any falls, but feels that due to weakness in her legs and her inability to stand up straight, a fall is getting more likely. Low back pain is typically worse with lying supine in bed, bending over, or trying to bean picker machine operator something heavy. Treatment Goals Patient/Caregiver Goals Decrease risk of falls PT-OP-C Subjective Start: 01/15/24 16:42 Freq: Status: Active Protocol: Document 02/01/24 13:09 SP (Rec: 02/01/24 13:46 SP [id number]) OP-PT Subjective Patient Comments Patient Comments Pt reports compliant with HEP with bands given last tx. She reports her toes curl under and so sometimes hurt when walks. PT-OP-D Balance Start: 01/15/24 16:42 Freq: Status: Active Protocol: Document 01/15/24 15:35 DCW (Rec: 01/15/24 16:52 DCW [id number]) Balance Tests Yanez Balance Test Yanez Balance Test Score 23/56 Yanez Impairment Rating 40 to 59% Impaired (Score 23- 33) Yanez Balance Assessment Evaluation Sitting to Standing Ability Several Tries w/Hands Unsupported Stance Safely- 2 minutes Sitting Unsupported, Feet on Floor 30 seconds Standing to Sitting Ability Assist, Control w/Hands Transfer Ability Supervision, Verbal Cues Unsupported Stance- Eyes Closed Falls Without Assistance Unsupported Stance- Eyes Open Assist to attain, 15 secs Reaching Forward Standing Safely, 2 inches Pick- Up Object From Floor Requires Supervision Look Behind Shoulder - Standing Supervision w/Turning Turning 360 Degrees Supervision/Verbal Cues Unsupported Stance, Alternating Feet on 2 Steps w/Minimum Assist Stair Unsupported Tandem Stance Small Step- 30 seconds Unilateral Leg Stance Lifts Leg/Unable to Hold Total Score Yanez Total Score (out of 56 points) 23 Yanez Impairment Rating 40 to 59% Impaired (Score 23- 33) PT-OP-E Functional Tests Start: 01/15/24 16:42 Freq: Status: Active Protocol: Document 01/15/24 15:35 DCW (Rec: 01/15/24 16:52 ILW [id number]) Functional Tests Five Times Sit to Stand Test Score 1:51.63 Comments Table at lowest height PT-OP-J Posture/Palpation/Skin Start: 01/15/24 16:42 Freq: Status: Active Protocol: Document 01/15/24 15:35 DCW (Rec: 01/15/24 16:52 ILW [id number]) Posture Evaluation Comments Posture Comments Pt presents with severe scoliosis and worsening excessive kyphosis. PT-OP-M Strength Start: 01/15/24 16:42 Freq: Status: Active Protocol: Document 01/15/24 15:35 DCW (Rec: 01/15/24 16:52 DCW [id number]) Hip Strength Hip Manual Muscle Testing Right Flexion (L2) 3+ Fair+ Abduction 4- Good- Adduction 4- Good- Left Flexion (L2) 3+ Fair+ Abduction 4- Good- Adduction 4- Good- Knee Strength Knee Manual Muscle Testing Right Flexion (S2) 4 Good Extension (L3) 4 Good Left Flexion (S2) 4 Good Extension (L3) 4 Good Ankle/Foot Strength Ankle and Foot Manual Muscle Testing Right Dorsiflexion (L4) 3+ Fair+ Left Dorsiflexion (L4) 3+ Fair+ PT-OP-Q Treatments Start: 01/15/24 16:42 Freq: Status: Active Protocol: Document 02/01/24 13:09 SP (Rec: 02/01/24 13:46 SP [id number]) Cardio Equipment Recumbent Stepper (Sci-Fit) Duration (Minutes) 7 Resistance 2.5>2.0 Seat Position 11 Other 35-43 RPM Therapeutic Exercises Sitting Exercises seated hip abd with band Sitting Exercise Name HEP Side bilateral Resistance level 3 [place] green band Reps/Minutes one min hold for activation then X15 reps without hold Comments verbal cues for elongated sitting posture Standing Exercises sit to stand Standing Exercise Name with UE use HEP Side bilateral Reps/Minutes x8 reps Comments verbal cues to lean fwd descend more than ascend Other Exercises Toe Taps Other Exercise Name Toe-taps Side bilateral Resistance 2# Equipment Used // bars, 6 step Side-stepping Other Exercise Name Side-stepping Resistance TB #3 at shins Reps/Minutes // bars Comments cues upright posture Neuro Re-Education Treatment Balance Activities retro stepping Equipment CGA hands glide> hover above / / bars Reps/Duration 10 ftx2 laps Comments intermittent cues for head up and rhomboid fac to improved posture. Tandem Details tandem stepping Equipment 2>1 light contact glide parallel bars CGA Reps/Duration 10 feet x2 laps Comments intermittent cues for head up and rhomboid fac to improved posture. PT-OP-T Assessment and Plan Start: 01/15/24 16:42 Freq: Status: Active Protocol: Document 02/01/24 13:09 SP (Rec: 02/01/24 13:46 SP [id number]) Physical Therapy Assessment Goals Three Impairment Pt completes a five times sit to stand test in 1:51.63 Solar Panel Technician Goal (LTG) Pt to complete her 5xStS test <60 seconds in order to demonstrate an improvement in activity tolerance. LTG Duration 04/14/24 Two Impairment Pt presents as a high falls risk, per Yanez score (23/56) Solar Panel Technician Goal (LTG) Pt to demonstrate a decrease in falls risk by improving Yanez score by at least seven points, to 30/56 LTG Duration 04/14/24 One Impairment Pt does not have an appropriate home exercise program Short Term Goal (STG) Pt to be independent and compliant with an appropriate HEP STG Duration 02/15/24 Assessment Summary Assessment Pt tolerated resistance to BLEs during standing activities, cues for hip hinge during sit standing activities but continues require UE support with less quad dominant pattern, able to reduce UE support on //bars with cues for head up and posture during stepping activities. Physical Therapy Plan Frequency and Duration Frequency of Treatment 2x/Week Plan of Care Start Date 01/15/24 Plan of Care End Date 04/14/24 Therapeutic Interventions Therapeutic Interventions Balance Training,Coordination Training,Gait Training,Home Exercise Program,Joint Mobilizations,Manual Therapy, Neuromuscular Re-education, Patient/Caregiver Education, Self-Care/Home Management,Soft Tissue Mobilization, Therapeutic Activities, Therapeutic Exercises Modalities Cold Pack/Ice Massage,Electric Stimulation,Hot Packs Next Visit Focus/Plan Next Note Type Treatment Note Next Visit Plan LE strengthening, balance challenges, gait training, posture
--- NOTE | 2024-02-08 17:05 | PT.OTN ---
Current Diagnoses Low back pain, unspecified (02/08/24) Muscle weakness (generalized) (02/08/24) Unsteadiness on feet (02/08/24) Physical Therapy Treatment Note PT-OP-A Visit Information Start: 01/15/24 16:42 Freq: Status: Active Protocol: Document 02/08/24 14:49 NBM (Rec: 02/08/24 17:05 NBM [id number]) Out-Patient Physical Therapy Visit Information Visit Information Visit Type Treatment Note Visit Start Time 14:41 Visit Stop Time 15:25 Visit Number 6 Number of EMBROIDERY PATTERNMAKER Visits 3 Evaluation Information Evaluation Date 01/15/24 PT-OP-B Current Condition Start: 01/15/24 16:42 Freq: Status: Active Protocol: Document 01/15/24 15:35 DCW (Rec: 01/15/24 17:44 DCW [id number]) Current Condition History of Current Condition Onset Date Multi-year history Current Complaints Low back pain, leg weakness, poor balance History of Current Condition Pt is an 88 year old female very well known to this clinic presenting with worsening low back pain, imbalance, leg weakness, and increased fear of falling. Pt notes she uses her 4WW around the house, which makes her feel more stable, but she cannot get the walker in or out of her car, so she relies on a SPC out in the community. 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 Pt unfortunately lost her earlier this year, and was also diagnosed with breast cancer, although she notes the cancer was excised recently and she believes it is mostly gone. Pt denies any falls, but feels that due to weakness in her legs and her inability to stand up straight, a fall is getting more likely. 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 Treatment Goals Patient/Caregiver Goals Decrease risk of falls PT-OP-C Subjective Start: 01/15/24 16:42 Freq: Status: Active Protocol: Document 02/08/24 14:49 NBM (Rec: 02/08/24 17:05 NBM [id number]) OP-PT Subjective Patient Comments Patient Comments Stacey reports her R hip is giving her fits today. 6-7/10 R hip pain. It kept her awake for awhile last night and she finally took a Tramadol and that took care of it. She wants to work on balance today . 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 PT-OP-D Balance Start: 01/15/24 16:42 Freq: Status: Active Protocol: Document 01/15/24 15:35 DCW (Rec: 01/15/24 16:52 DCW [id number]) Balance Tests Yanez Balance Test Yanez Balance Test Score 23/56 Yanez Impairment Rating 40 to 59% Impaired (Score 23- 33) Yanez Balance Assessment Evaluation Sitting to Standing Ability Several Tries w/Hands Unsupported Stance Safely- 2 minutes Sitting Unsupported, Feet on Floor 30 seconds Standing to Sitting Ability Assist, Control w/Hands Transfer Ability Supervision, Verbal Cues Unsupported Stance- Eyes Closed Falls Without Assistance Unsupported Stance- Eyes Open Assist to attain, 15 secs Reaching Forward Standing Safely, 2 inches Pick- Up Object From Floor Requires Supervision Look Behind Shoulder - Standing Supervision w/Turning Turning 360 Degrees Supervision/Verbal Cues Unsupported Stance, Alternating Feet on 2 Steps w/Minimum Assist Stair Unsupported Tandem Stance Small Step- 30 seconds Unilateral Leg Stance Lifts Leg/Unable to Hold Total Score Yanez Total Score (out of 56 points) 23 Yanez Impairment Rating 40 to 59% Impaired (Score 23- 33) PT-OP-E Functional Tests Start: 01/15/24 16:42 Freq: Status: Active Protocol: Document 01/15/24 15:35 DCW (Rec: 01/15/24 16:52 DCW [id number]) Functional Tests Five Times Sit to Stand Test Score 1:51.63 Comments Table at lowest height PT-OP-J Posture/Palpation/Skin Start: 01/15/24 16:42 Freq: Status: Active Protocol: Document 01/15/24 15:35 DCW (Rec: 01/15/24 16:52 DCW [id number]) Posture Evaluation Comments Posture Comments Pt presents with severe scoliosis and worsening excessive kyphosis. PT-OP-M Strength Start: 01/15/24 16:42 Freq: Status: Active Protocol: Document 01/15/24 15:35 DCW (Rec: 01/15/24 16:52 DCW [id number]) Hip Strength Hip Manual Muscle Testing Right Flexion (L2) 3+ Fair+ Abduction 4- Good- Adduction 4- Good- Left Flexion (L2) 3+ Fair+ Abduction 4- Good- Adduction 4- Good- Knee Strength Knee Manual Muscle Testing Right Flexion (S2) 4 Good Extension (L3) 4 Good Left Flexion (S2) 4 Good Extension (L3) 4 Good Ankle/Foot Strength Ankle and Foot Manual Muscle Testing Right Dorsiflexion (L4) 3+ Fair+ Left Dorsiflexion (L4) 3+ Fair+ PT-OP-Q Treatments Start: 01/15/24 16:42 Freq: Status: Active Protocol: Document 02/08/24 14:49 NB (Rec: 02/08/24 17:05 [facility] [id number]) Gym Equipment Shuttle Balance Red Details WBOS, NBOS Comments WBOS: 1.stilling platform 2.a/p weightshifting 3.EO/EC 30s ea x2 without UE support - B CLIENT CARE SPECIALIST> 2-finger touch>1 CLIENT CARE SPECIALIST>no UE support. 4.balloon vollyball x1 CLIENT CARE SPECIALIST: WBOS, NBOS - progresses from Aide catch and hit to hitting consecutively. vc for upright posture and looking up to reduce anterior shift of COM d/t thoracic kyphosis. Therapeutic Ball Low Trunk Rotation Exercise Details Low trunk Rotation Ball Size/Color Blue - 45 cm Body Position Hooklying Reps/Duration x10 ea Comments 4 pillow support d/t thoracic kyphosis. Therapeutic Exercises Sitting Exercises seated hip abd with band Sitting Exercise Name HEP - verbal review w/ instruction to perform AROM after hold. Side bilateral Resistance level 3 [place] green band Reps/Minutes one min hold for activation then X15 reps without hold Comments verbal cues for elongated sitting posture Standing Exercises sit to stand Standing Exercise Name with UE use -HEP review Side bilateral Equipment Used standard mesh chair Reps/Minutes x5 reps Comments verbal cues to lean fwd, feet under, hip hinge w/ ascent Manual Therapy Treatment Consent Patient gave verbal consent for manual Yes treatment Soft Tissue Mobilization R hip Body Location R superior gluteal border, TFL Mobilization Type Cross-Friction,Rolling Intensity/Depth Moderate Body Position Sidelying Comments gentle, monitored for pain. pillow supports between LEs. Manual Techniques hip flexor stretch Type manual Body Location R hip flexor Body Position Sidelying Reps/Duration x30s Comments gentle PT-OP-T Assessment and Plan Start: 01/15/24 16:42 Freq: Status: Active Protocol: Document 02/08/24 14:49 NBM (Rec: 02/08/24 17:05 NBM [id number]) Physical Therapy Assessment Goals Three Impairment Pt completes a five times sit to stand test in 1:51.63 Shelter Goal (LTG) Pt to complete her 5xStS test <60 seconds in order to demonstrate an improvement in activity tolerance. LTG Duration 04/14/24 Two Impairment Pt presents as a high falls risk, per Yanez score (/56) [employer] Structural Glass Goal (LTG) Pt to demonstrate a decrease in falls risk by improving Yanez score by at least seven points, to 30/56 LTG Duration 04/14/24 One Impairment Pt does not have an appropriate home exercise program Short Term Goal (STG) Pt to be independent and compliant with an appropriate HEP STG Duration 02/15/24 Assessment Summary Assessment Extra time for transitions. Treatment focus on LE strengthening, manual therapy to R hip, and balance. Stacey presents w/ R hip pain 6-7/10 which improves to 4-5/10 end of session. Verbal review of HEP reveals lack of carryover for seated hip abduction AROM following hold so she is instructed to perform AROM after 1 min hold and expresses understanding. With sit to stands pt remembers hip hinge during descent but requires cues for hip hinge with ascent . She also requires cues during balance on Shuttle Balance for upright posture and to look up to reduce anterior shift of center of mass due to thoracic kyphosis. She requires CGA to modA for balance due to excessive posterior lean with Eyes closed. She progresses UE support both with eyes open and eyes closed from Jose CLIENT CARE SPECIALIST > 2-finger touch>1 CLIENT CARE SPECIALIST>no UE support, and progresses w/ balloon volleyball in WBOS and NBOS from Aide catching balloon to hitting consecutively. Physical Therapy Plan Frequency and Duration Frequency of Treatment 2x/Week Plan of Care Start Date 01/15/24 Plan of Care End Date 04/14/24 Therapeutic Interventions Therapeutic Interventions Balance Training,Coordination Training,Gait Training,Home Exercise Program,Joint Mobilizations,Manual Therapy, Neuromuscular Re-education, Patient/Caregiver Education, Self-Care/Home Management,Soft Tissue Mobilization, Therapeutic Activities, Therapeutic Exercises Modalities Cold Pack/Ice Massage,Electric Stimulation,Hot Packs Next Visit Focus/Plan Next Note Type Treatment Note Next Visit Plan Check response to manual therapy for R post. hip. POC: LE strengthening, balance challenges, gait training, posture
--- NOTE | 2024-02-22 10:28 | PT.OTN ---
Current Diagnoses Low back pain, unspecified (02/15/24) Muscle weakness (generalized) (02/15/24) Unsteadiness on feet (02/15/24) Physical Therapy Treatment Note PT-OP-A Visit Information Start: 01/15/24 16:42 Freq: Status: Active Protocol: Document 02/15/24 13:08 NBM (Rec: 02/15/24 13:52 NBM [id number]) Out-Patient Physical Therapy Visit Information Visit Information Visit Type Treatment Note Visit Start Time 13:05 Visit Stop Time 13:45 Visit Number 7 Number of STRETCHING MACHINE OPERATOR Visits 4 Evaluation Information Evaluation Date 01/15/24 PT-OP-B Current Condition Start: 01/15/24 16:42 Freq: Status: Active Protocol: Document 01/15/24 15:35 DCW (Rec: 01/15/24 17:44 DCW [id number]) Current Condition History of Current Condition Onset Date Multi-year history Current Complaints Low back pain, leg weakness, poor balance History of Current Condition Pt is an 88 year old female very well known to this clinic presenting with worsening low back pain, imbalance, leg weakness, and increased fear of falling. Pt notes she uses her 4WW around the house, which makes her feel more stable, but she cannot get the walker in or out of her car, so she relies on a SPC out in the community. 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 Pt unfortunately lost her earlier this year, and was also diagnosed with breast cancer, although she notes the cancer was excised recently and she believes it is mostly gone. Pt denies any falls, but feels that due to weakness in her legs and her inability to stand up straight, a fall is getting more likely. Low back pain is typically worse with lying supine in bed, bending over, or trying to crop picker something heavy. Treatment Goals Patient/Caregiver Goals Decrease risk of falls PT-OP-C Subjective Start: 01/15/24 16:42 Freq: Status: Active Protocol: Document 02/15/24 13:08 NBM (Rec: 02/15/24 13:52 NBM [id number]) OP-PT Subjective Patient Comments Patient Comments Stacey reports she got shots in back of L shoulder. He'll do her back in a couple of months. Her toes are giving her fits. PT-OP-D Balance Start: 01/15/24 16:42 Freq: Status: Active Protocol: Document 01/15/24 15:35 DCW (Rec: 01/15/24 16:52 DCW [id number]) Balance Tests Yanez Balance Test Yanez Balance Test Score 23/56 Yanez Impairment Rating 40 to 59% Impaired (Score 23- 33) Yanez Balance Assessment Evaluation Sitting to Standing Ability Several Tries w/Hands Unsupported Stance Safely- 2 minutes Sitting Unsupported, Feet on Floor 30 seconds Standing to Sitting Ability Assist, Control w/Hands Transfer Ability Supervision, Verbal Cues Unsupported Stance- Eyes Closed Falls Without Assistance Unsupported Stance- Eyes Open Assist to attain, 15 secs Reaching Forward Standing Safely, 2 inches Pick- Up Object From Floor Requires Supervision Look Behind Shoulder - Standing Supervision w/Turning Turning 360 Degrees Supervision/Verbal Cues Unsupported Stance, Alternating Feet on 2 Steps w/Minimum Assist Stair Unsupported Tandem Stance Small Step- 30 seconds Unilateral Leg Stance Lifts Leg/Unable to Hold Total Score Yanez Total Score (out of 56 points) 23 Yanez Impairment Rating 40 to 59% Impaired (Score 23- 33) PT-OP-E Functional Tests Start: 01/15/24 16:42 Freq: Status: Active Protocol: Document 01/15/24 15:35 DCW (Rec: 01/15/24 16:52 DCW [id number]) Functional Tests Five Times Sit to Stand Test Score 1:51.63 Comments Table at lowest height PT-OP-J Posture/Palpation/Skin Start: 01/15/24 16:42 Freq: Status: Active Protocol: Document 01/15/24 15:35 DCW (Rec: 01/15/24 16:52 DCW [id number]) Posture Evaluation Comments Posture Comments Pt presents with severe scoliosis and worsening excessive kyphosis. PT-OP-M Strength Start: 01/15/24 16:42 Freq: Status: Active Protocol: Document 01/15/24 15:35 DCW (Rec: 01/15/24 16:52 DCW [id number]) Hip Strength Hip Manual Muscle Testing Right Flexion (L2) 3+ Fair+ Abduction 4- Good- Adduction 4- Good- Left Flexion (L2) 3+ Fair+ Abduction 4- Good- Adduction 4- Good- Knee Strength Knee Manual Muscle Testing Right Flexion (S2) 4 Good Extension (L3) 4 Good Left Flexion (S2) 4 Good Extension (L3) 4 Good Ankle/Foot Strength Ankle and Foot Manual Muscle Testing Right Dorsiflexion (L4) 3+ Fair+ Left Dorsiflexion (L4) 3+ Fair+ PT-OP-Q Treatments Start: 01/15/24 16:42 Freq: Status: Active Protocol: Document 02/15/24 13:08 [facility] (Rec: 02/15/24 13:52 [facility] [id number]) Therapeutic Exercises Sitting Exercises Hip adduction Sitting Exercise Name ball squeeze Side bilateral Equipment Used blue/white ball Reps/Minutes 10x5 Comments cues for breath DL Iso press Sitting Exercise Name hands pressing into thighs Equipment Used standard mesh chair Reps/Minutes 10 x2 ea Comments pain-free LAQ Sitting Exercise Name 1. AROM 2. w/ Lvl 1 Tb Side bilateral Equipment Used standard mesh chair Reps/Minutes 1. x10 2. x5 seated hip abd with band Sitting Exercise Name HEP review- AROM after hold. Side bilateral Resistance level 3 [place] green band Reps/Minutes one min hold for activation then X10 reps without hold Comments verbal cues for elongated sitting posture Standing Exercises sit to stand Standing Exercise Name with UE use on seat -HEP review Side bilateral Equipment Used standard mesh chair Reps/Minutes x5 reps Comments verbal cues to lean fwd, hip hinge w/ ascent, hand placement on seat Other Exercises Toe Taps Other Exercise Name Toe-taps Side bilateral Resistance 2# Equipment Used // bars, 6 step Reps/Minutes x12 ea Side-stepping Other Exercise Name Side-stepping Resistance TB #3 at shins Reps/Minutes // bars Comments cues upright posture PT-OP-T Assessment and Plan Start: 01/15/24 16:42 Freq: Status: Active Protocol: Document 02/15/24 13:08 [facility] (Rec: 02/15/24 13:52 [facility] [id number]) Physical Therapy Assessment Goals Three Impairment Pt completes a five times sit to stand test in 1:51.63 Immigration Judge Goal (LTG) Pt to complete her 5xStS test <60 seconds in order to demonstrate an improvement in activity tolerance. LTG Duration 04/14/24 Two Impairment Pt presents as a high falls risk, per Yanez score (23/56) Halfway Goal (LTG) Pt to demonstrate a decrease in falls risk by improving Yanez score by at least seven points, to 30/56 LTG Duration 04/14/24 One Impairment Pt does not have an appropriate home exercise program Short Term Goal (STG) Pt to be independent and compliant with an appropriate HEP STG Duration 02/15/24 Assessment Summary Assessment Stacey is cued for hand placement with sit to stand and improves hip hinge and bilateral shoulder pain with cueing for pushing off of seat instead of arm rests. Cueing for upright posture through gluteal activation needed throughout treatment, particularly as pt fatigues. Pt educated for tall postuer when seated. Physical Therapy Plan Frequency and Duration Frequency of Treatment 2x/Week Plan of Care Start Date 01/15/24 Plan of Care End Date 04/14/24 Therapeutic Interventions Therapeutic Interventions Balance Training,Coordination Training,Gait Training,Home Exercise Program,Joint Mobilizations,Manual Therapy, Neuromuscular Re-education, Patient/Caregiver Education, Self-Care/Home Management,Soft Tissue Mobilization, Therapeutic Activities, Therapeutic Exercises Modalities Cold Pack/Ice Massage,Electric Stimulation,Hot Packs Next Visit Focus/Plan Next Note Type Treatment Note Next Visit Plan POC: LE strengthening, balance challenges, gait training, posture
--- NOTE | 2024-02-22 11:32 | PT.OTN ---
Current Diagnoses Low back pain, unspecified (02/22/24) Muscle weakness (generalized) (02/22/24) Unsteadiness on feet (02/22/24) Physical Therapy Treatment Note PT-OP-A Visit Information Start: 01/15/24 16:42 Freq: Status: Active Protocol: Document 02/22/24 10:59 DCW (Rec: 02/22/24 11:32 DCW [id number]) Out-Patient Physical Therapy Visit Information Visit Information Visit Type Treatment Note Visit Note 14 minutes late Visit Start Time 10:59 Visit Stop Time 11:30 Visit Number 8 Number of STEAM CONDITIONER FILLING Visits 0 Evaluation Information Evaluation Date 01/15/24 PT-OP-B Current Condition Start: 01/15/24 16:42 Freq: Status: Active Protocol: Document 01/15/24 15:35 DCW (Rec: 01/15/24 17:44 DCW [id number]) Current Condition History of Current Condition Onset Date Multi-year history Current Complaints Low back pain, leg weakness, poor balance History of Current Condition Pt is an 88 year old female very well known to this clinic presenting with worsening low back pain, imbalance, leg weakness, and increased fear of falling. Pt notes she uses her 4WW around the house, which makes her feel more stable, but she cannot get the walker in or out of her car, so she relies on a SPC out in the community. 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 Pt unfortunately lost her earlier this year, and was also diagnosed with breast cancer, although she notes the cancer was excised recently and she believes it is mostly gone. Pt denies any falls, but feels that due to weakness in her legs and her inability to stand up straight, a fall is getting more likely. Low back pain is typically worse with lying supine in bed, bending over, or trying to cigar packer and picker something heavy. Treatment Goals Patient/Caregiver Goals Decrease risk of falls PT-OP-C Subjective Start: 01/15/24 16:42 Freq: Status: Active Protocol: Document 02/22/24 10:59 DCW (Rec: 02/22/24 11:32 DCW [id number]) OP-PT Subjective Patient Comments Patient Comments A little shaky today for some reason. PT-OP-D Balance Start: 01/15/24 16:42 Freq: Status: Active Protocol: Document 01/15/24 15:35 DCW (Rec: 01/15/24 16:52 DCW [id number]) Balance Tests Yanez Balance Test Yanez Balance Test Score 23/56 Yanez Impairment Rating 40 to 59% Impaired (Score 23- 33) Yanez Balance Assessment Evaluation Sitting to Standing Ability Several Tries w/Hands Unsupported Stance Safely- 2 minutes Sitting Unsupported, Feet on Floor 30 seconds Standing to Sitting Ability Assist, Control w/Hands Transfer Ability Supervision, Verbal Cues Unsupported Stance- Eyes Closed Falls Without Assistance Unsupported Stance- Eyes Open Assist to attain, 15 secs Reaching Forward Standing Safely, 2 inches Pick- Up Object From Floor Requires Supervision Look Behind Shoulder - Standing Supervision w/Turning Turning 360 Degrees Supervision/Verbal Cues Unsupported Stance, Alternating Feet on 2 Steps w/Minimum Assist Stair Unsupported Tandem Stance Small Step- 30 seconds Unilateral Leg Stance Lifts Leg/Unable to Hold Total Score Yanez Total Score (out of 56 points) 23 Yanez Impairment Rating 40 to 59% Impaired (Score 23- 33) PT-OP-E Functional Tests Start: 01/15/24 16:42 Freq: Status: Active Protocol: Document 01/15/24 15:35 DCW (Rec: 01/15/24 16:52 DCW [id number]) Functional Tests Five Times Sit to Stand Test Score 1:51.63 Comments Table at lowest height PT-OP-J Posture/Palpation/Skin Start: 01/15/24 16:42 Freq: Status: Active Protocol: Document 01/15/24 15:35 DCW (Rec: 01/15/24 16:52 DCW [id number]) Posture Evaluation Comments Posture Comments Pt presents with severe scoliosis and worsening excessive kyphosis. PT-OP-M Strength Start: 01/15/24 16:42 Freq: Status: Active Protocol: Document 01/15/24 15:35 DCW (Rec: 01/15/24 16:52 DCW [id number]) Hip Strength Hip Manual Muscle Testing Right Flexion (L2) 3+ Fair+ Abduction 4- Good- Adduction 4- Good- Left Flexion (L2) 3+ Fair+ Abduction 4- Good- Adduction 4- Good- Knee Strength Knee Manual Muscle Testing Right Flexion (S2) 4 Good Extension (L3) 4 Good Left Flexion (S2) 4 Good Extension (L3) 4 Good Ankle/Foot Strength Ankle and Foot Manual Muscle Testing Right Dorsiflexion (L4) 3+ Fair+ Left Dorsiflexion (L4) 3+ Fair+ PT-OP-Q Treatments Start: 01/15/24 16:42 Freq: Status: Active Protocol: Document 02/22/24 10:59 DCW (Rec: 02/22/24 11:32 DCW [id number]) Gym Equipment Shuttle Balance Red Details WBOS, Staggered Therapeutic Exercises Sitting Exercises LAQ Sitting Exercise Name LAQ Side bilateral Resistance 4# Equipment Used standard mesh chair Other Exercises Toe Taps Other Exercise Name Toe-taps Side bilateral Resistance 4# Equipment Used 6 step @ rail Reps/Minutes x10 Side-stepping Other Exercise Name Side-stepping Resistance Green Reps/Minutes @ rail Comments cues upright posture Neuro Re-Education Treatment Balance Activities Hurdles Details Hurdles/Foam Equipment @ rail Comments Forward Tandem Details Tandem Ambulation Equipment @ rail Reps/Duration 15' laps x4 PT-OP-T Assessment and Plan Start: 01/15/24 16:42 Freq: Status: Active Protocol: Document 02/22/24 10:59 DCW (Rec: 02/22/24 11:32 DCW [id number]) Physical Therapy Assessment Impairments Impairments Activity Tolerance,Balance, Functional Activities, Functional Mobility,Gait,Pain, Posture,Soft Tissue Mobility, Strength,Tone Goals Three Impairment Pt completes a five times sit to stand test in 1:51.63 Surface Miner Goal (LTG) Pt to complete her 5xStS test <60 seconds in order to demonstrate an improvement in activity tolerance. LTG Duration 04/14/24 Two Impairment Pt presents as a high falls risk, per Yanez score (23/56) Alf Goal (LTG) Pt to demonstrate a decrease in falls risk by improving Yanez score by at least seven points, to 30/56 LTG Duration 04/14/24 One Impairment Pt does not have an appropriate home exercise program Short Term Goal (STG) Pt to be independent and compliant with an appropriate HEP STG Duration 02/15/24 Assessment Summary Assessment Reviewed with pt pushing from chair instead of armrests. Pt admitted she was trying to remember it at home, but often didn't think about it. Did well with increased challenges today, like increased weight for LAQ and toe-taps, did struggle a bit with addition of foam on hurdles. Physical Therapy Plan Frequency and Duration Frequency of Treatment 2x/Week Plan of Care Start Date 01/15/24 Plan of Care End Date 04/14/24 Therapeutic Interventions Therapeutic Interventions Balance Training,Coordination Training,Gait Training,Home Exercise Program,Joint Mobilizations,Manual Therapy, Neuromuscular Re-education, Patient/Caregiver Education, Self-Care/Home Management,Soft Tissue Mobilization, Therapeutic Activities, Therapeutic Exercises Modalities Cold Pack/Ice Massage,Electric Stimulation,Hot Packs Next Visit Focus/Plan Next Note Type Treatment Note Next Visit Plan POC: LE strengthening, balance challenges, gait training, posture
--- NOTE | 2024-02-26 12:13 | PT.OTN ---
Current Diagnoses Low back pain, unspecified (02/26/24) Muscle weakness (generalized) (02/26/24) Unsteadiness on feet (02/26/24) Physical Therapy Treatment Note PT-OP-A Visit Information Start: 01/15/24 16:42 Freq: Status: Active Protocol: Document 02/26/24 11:30 DCW (Rec: 02/26/24 12:13 DCW [id number]) Out-Patient Physical Therapy Visit Information Visit Information Visit Type Treatment Note Visit Start Time 11:30 Visit Stop Time 12:15 Visit Number 9 Number of SORT OPERATIONS SUPERVISOR Visits 0 Evaluation Information Evaluation Date 01/15/24 PT-OP-B Current Condition Start: 01/15/24 16:42 Freq: Status: Active Protocol: Document 01/15/24 15:35 DCW (Rec: 01/15/24 17:44 DCW [id number]) Current Condition History of Current Condition Onset Date Multi-year history Current Complaints Low back pain, leg weakness, poor balance History of Current Condition Pt is an 88 year old female very well known to this clinic presenting with worsening low back pain, imbalance, leg weakness, and increased fear of falling. Pt notes she uses her 4WW around the house, which makes her feel more stable, but she cannot get the walker in or out of her car, so she relies on a SPC out in the community. 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 Pt unfortunately lost her earlier this year, and was also diagnosed with breast cancer, although she notes the cancer was excised recently and she believes it is mostly gone. Pt denies any falls, but feels that due to weakness in her legs and her inability to stand up straight, a fall is getting more likely. Low back pain is typically worse with lying supine in bed, bending over, or trying to pick pulling machine operator something heavy. Treatment Goals Patient/Caregiver Goals Decrease risk of falls PT-OP-C Subjective Start: 01/15/24 16:42 Freq: Status: Active Protocol: Document 02/26/24 11:30 DCW (Rec: 02/26/24 12:13 DCW [id number]) OP-PT Subjective Patient Comments Patient Comments Pt feeling a little off balance today, but overall doing alright. PT-OP-D Balance Start: 01/15/24 16:42 Freq: Status: Active Protocol: Document 01/15/24 15:35 DCW (Rec: 01/15/24 16:52 DCW [id number]) Balance Tests Yanez Balance Test Yanez Balance Test Score 23/56 Yanez Impairment Rating 40 to 59% Impaired (Score 23- 33) Yanez Balance Assessment Evaluation Sitting to Standing Ability Several Tries w/Hands Unsupported Stance Safely- 2 minutes Sitting Unsupported, Feet on Floor 30 seconds Standing to Sitting Ability Assist, Control w/Hands Transfer Ability Supervision, Verbal Cues Unsupported Stance- Eyes Closed Falls Without Assistance Unsupported Stance- Eyes Open Assist to attain, 15 secs Reaching Forward Standing Safely, 2 inches Pick- Up Object From Floor Requires Supervision Look Behind Shoulder - Standing Supervision w/Turning Turning 360 Degrees Supervision/Verbal Cues Unsupported Stance, Alternating Feet on 2 Steps w/Minimum Assist Stair Unsupported Tandem Stance Small Step- 30 seconds Unilateral Leg Stance Lifts Leg/Unable to Hold Total Score Yanez Total Score (out of 56 points) 23 Yanez Impairment Rating 40 to 59% Impaired (Score 23- 33) PT-OP-E Functional Tests Start: 01/15/24 16:42 Freq: Status: Active Protocol: Document 01/15/24 15:35 DCW (Rec: 01/15/24 16:52 DCW [id number]) Functional Tests Five Times Sit to Stand Test Score 1:51.63 Comments Table at lowest height PT-OP-J Posture/Palpation/Skin Start: 01/15/24 16:42 Freq: Status: Active Protocol: Document 01/15/24 15:35 DCW (Rec: 01/15/24 16:52 DCW [id number]) Posture Evaluation Comments Posture Comments Pt presents with severe scoliosis and worsening excessive kyphosis. PT-OP-M Strength Start: 01/15/24 16:42 Freq: Status: Active Protocol: Document 01/15/24 15:35 DCW (Rec: 01/15/24 16:52 DCW [id number]) Hip Strength Hip Manual Muscle Testing Right Flexion (L2) 3+ Fair+ Abduction 4- Good- Adduction 4- Good- Left Flexion (L2) 3+ Fair+ Abduction 4- Good- Adduction 4- Good- Knee Strength Knee Manual Muscle Testing Right Flexion (S2) 4 Good Extension (L3) 4 Good Left Flexion (S2) 4 Good Extension (L3) 4 Good Ankle/Foot Strength Ankle and Foot Manual Muscle Testing Right Dorsiflexion (L4) 3+ Fair+ Left Dorsiflexion (L4) 3+ Fair+ PT-OP-Q Treatments Start: 01/15/24 16:42 Freq: Status: Active Protocol: Document 02/26/24 11:30 DCW (Rec: 02/26/24 12:13 DCW [id number]) Gym Equipment Shuttle Balance Red Details WBOS, Staggered Therapeutic Exercises Other Exercises Toe Taps Other Exercise Name Toe-taps Side bilateral Resistance 4# Equipment Used 6 step @ rail Reps/Minutes x10 Neuro Re-Education Treatment Balance Activities Dynamic gait Details Head turns during gait Equipment // bars Reps/Duration 10' x4 each Comments Horizontal/Vertical head turns retro stepping Equipment CGA hands glide> hover above / / bars Reps/Duration 10 ftx2 laps Hurdles Details Hurdles/Foam Equipment @ rail Comments Forward Tandem Details Tandem Ambulation Equipment // bars Reps/Duration 10' x4 PT-OP-T Assessment and Plan Start: 01/15/24 16:42 Freq: Status: Active Protocol: Document 02/26/24 11:30 DCW (Rec: 02/26/24 12:13 DCW [id number]) Physical Therapy Assessment Impairments Impairments Activity Tolerance,Balance, Functional Activities, Functional Mobility,Gait,Pain, Posture,Soft Tissue Mobility, Strength,Tone Goals Three Impairment Pt completes a five times sit to stand test in 1:51.63 Automobile Repossessor Goal (LTG) Pt to complete her 5xStS test <60 seconds in order to demonstrate an improvement in activity tolerance. LTG Duration 04/14/24 Two Impairment Pt presents as a high falls risk, per Yanez score (56) Penitentiary Goal (LTG) Pt to demonstrate a decrease in falls risk by improving Yanez score by at least seven points, to 30/56 LTG Duration 04/14/24 One Impairment Pt does not have an appropriate home exercise program Short Term Goal (STG) Pt to be independent and compliant with an appropriate HEP STG Duration 02/15/24 Assessment Summary Assessment Pt showing some good overall progress, doing much better on Shuttle balance. Continue to focus on balance, LE strength, and functional mobility. Physical Therapy Plan Frequency and Duration Frequency of Treatment 2x/Week Plan of Care Start Date 01/15/24 Plan of Care End Date 04/14/24 Therapeutic Interventions Therapeutic Interventions Balance Training,Coordination Training,Gait Training,Home Exercise Program,Joint Mobilizations,Manual Therapy, Neuromuscular Re-education, Patient/Caregiver Education, Self-Care/Home Management,Soft Tissue Mobilization, Therapeutic Activities, Therapeutic Exercises Modalities Cold Pack/Ice Massage,Electric Stimulation,Hot Packs Next Visit Focus/Plan Next Note Type Treatment Note Next Visit Plan POC: LE strengthening, balance challenges, gait training, posture
--- NOTE | 2024-03-04 16:05 | PT.OTN ---
Current Diagnoses Low back pain, unspecified (03/04/24) Muscle weakness (generalized) (03/04/24) Unsteadiness on feet (03/04/24) Physical Therapy Treatment Note PT-OP-A Visit Information Start: 01/15/24 16:42 Freq: Status: Active Protocol: Document 03/04/24 13:22 AB (Rec: 03/04/24 15:42 AB [id number]) Out-Patient Physical Therapy Visit Information Visit Information Visit Type Treatment Note Visit Start Time 13:49 Visit Stop Time 14:31 Visit Number 10 Number of INTRAMURAL DIRECTOR Visits 1 Evaluation Information Evaluation Date 01/15/24 PT-OP-B Current Condition Start: 01/15/24 16:42 Freq: Status: Active Protocol: Document 01/15/24 15:35 DCW (Rec: 01/15/24 17:44 DCW [id number]) Current Condition History of Current Condition Onset Date Multi-year history Current Complaints Low back pain, leg weakness, poor balance History of Current Condition Pt is an 88 year old female very well known to this clinic presenting with worsening low back pain, imbalance, leg weakness, and increased fear of falling. Pt notes she uses her 4WW around the house, which makes her feel more stable, but she cannot get the walker in or out of her car, so she relies on a SPC out in the community. 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 Pt unfortunately lost her earlier this year, and was also diagnosed with breast cancer, although she notes the cancer was excised recently and she believes it is mostly gone. Pt denies any falls, but feels that due to weakness in her legs and her inability to stand up straight, a fall is getting more likely. Low back pain is typically worse with lying supine in bed, bending over, or trying to crop picker something heavy. Treatment Goals Patient/Caregiver Goals Decrease risk of falls PT-OP-C Subjective Start: 01/15/24 16:42 Freq: Status: Active Protocol: Document 03/04/24 13:22 AB (Rec: 03/04/24 15:42 AB [id number]) OP-PT Subjective Patient Comments Patient Comments Patient reports left foot hurts due to arthritis and toes curling under making it hard to walk. Patient rates back and foot pain 3/10 start of session. Sit to stand X 5 at 23.72 seconds webbed chair, hands on chair seat. Unable without UE use. PT-OP-D Balance Start: 01/15/24 16:42 Freq: Status: Active Protocol: Document 03/04/24 13:22 AB (Rec: 03/04/24 15:48 AB [id number]) Balance Tests Yanez Balance Test Yanez Balance Test Score 34/56 Yanez Impairment Rating 20 to 39% Impaired (Score 34- 44) Yanez Balance Assessment Evaluation Sitting to Standing Ability Independent w/Hands Unsupported Stance Safely- 2 minutes Sitting Unsupported, Feet on Floor Safely- 2 minutes Standing to Sitting Ability Assist, Control w/Hands Transfer Ability Safely, Hand Use Unsupported Stance- Eyes Closed Safely, 10 seconds Unsupported Stance- Eyes Open Assist to attain, 15 secs Reaching Forward Standing Safely, 2 inches Pick- Up Object From Floor Supervision Look Behind Shoulder - Standing Shifts Weight Unilateral Turning 360 Degrees Turns slowly, but safely Unsupported Stance, Alternating Feet on 2 Steps w/Minimum Assist Stair Unsupported Tandem Stance Balance Lost- Step/Stand Unilateral Leg Stance Lifts Leg/Unable to Hold Total Score Yanez Total Score (out of 56 points) 34 Yanez Impairment Rating 20 to 39% Impaired (Score 34- 44) PT-OP-E Functional Tests Start: 01/15/24 16:42 Freq: Status: Active Protocol: Document 03/04/24 13:22 AB (Rec: 03/04/24 15:48 AB [id number]) Functional Tests Five Times Sit to Stand Test Score 23.72 seconds Comments with UE use hands on seat of webbed chair, unable without UE use PT-OP-J Posture/Palpation/Skin Start: 01/15/24 16:42 Freq: Status: Active Protocol: Document 01/15/24 15:35 DCW (Rec: 01/15/24 16:52 DCW [id number]) Posture Evaluation Comments Posture Comments Pt presents with severe scoliosis and worsening excessive kyphosis. PT-OP-M Strength Start: 01/15/24 16:42 Freq: Status: Active Protocol: Document 01/15/24 15:35 DCW (Rec: 01/15/24 16:52 DCW [id number]) Hip Strength Hip Manual Muscle Testing Right Flexion (L2) 3+ Fair+ Abduction 4- Good- Adduction 4- Good- Left Flexion (L2) 3+ Fair+ Abduction 4- Good- Adduction 4- Good- Knee Strength Knee Manual Muscle Testing Right Flexion (S2) 4 Good Extension (L3) 4 Good Left Flexion (S2) 4 Good Extension (L3) 4 Good Ankle/Foot Strength Ankle and Foot Manual Muscle Testing Right Dorsiflexion (L4) 3+ Fair+ Left Dorsiflexion (L4) 3+ Fair+ PT-OP-Q Treatments Start: 01/15/24 16:42 Freq: Status: Active Protocol: Document 03/04/24 13:22 AB (Rec: 03/04/24 15:42 AB [id number]) Gym Equipment Shuttle Balance Red Details WBOS, Staggered Comments CGA visual scanning with WBOS Therapeutic Exercises Sitting Exercises seated hip abd with band Sitting Exercise Name HEP review- AROM after hold. Side bilateral Resistance level 3 [place] band Reps/Minutes one min hold for activation then X10 reps without hold Comments verbal cues for elongated sitting posture Neuro Re-Education Treatment Balance Activities Tandem Details Tandem Ambulation Equipment // bars Reps/Duration 10' x2 Comments CGA PT-OP-T Assessment and Plan Start: 01/15/24 16:42 Freq: Status: Active Protocol: Document 03/04/24 13:22 AB (Rec: 03/04/24 15:42 AB [id number]) Physical Therapy Assessment Goals Three Impairment Pt completes a five times sit to stand test in 1:51.63 Auto Damage Estimator Goal (LTG) Pt to complete her 5xStS test <60 seconds in order to demonstrate an improvement in activity tolerance. LTG Duration 04/14/24 Two Impairment Pt presents as a high falls risk, per Yanez score (23/56) Auto Damage Estimator Goal (LTG) Pt to demonstrate a decrease in falls risk by improving Yanez score by at least seven points, to 30/56 LTG Duration 04/14/24 One Impairment Pt does not have an appropriate home exercise program Short Term Goal (STG) Pt to be independent and compliant with an appropriate HEP 03/04/2024 Patient reports she is doing the seated hip with band exercise, but not the exercise that requires foot in cabinet under sink as it makes her unsteady and not sit to stand as she does that throughout the day. STG Duration 11/15/24 Assessment Summary Assessment Improved Yanez score and 5X sit to stand today compared to previous scores. Yanez score continues to be at an impaired level. Stacey continues to have signficant deficits in LE strength and balance. Physical Therapy Plan Frequency and Duration Frequency of Treatment 2x/Week Plan of Care Start Date 01/15/24 Plan of Care End Date 04/14/24 Next Visit Focus/Plan Next Note Type Progress Note Next Visit Plan POC: LE strengthening, balance challenges, gait training, posture
--- NOTE | 2024-03-04 16:13 | PT.OPPN ---
Current Diagnoses Low back pain, unspecified (03/04/24) Muscle weakness (generalized) (03/04/24) Unsteadiness on feet (03/04/24) Physical Therapy Progress Note PT-OP-A Visit Information Start: 01/15/24 16:42 Freq: Status: Active Protocol: Document 03/04/24 13:22 AB (Rec: 03/04/24 15:42 AB [id number]) Out-Patient Physical Therapy Visit Information Visit Information Visit Type Treatment Note Visit Start Time 13:49 Visit Stop Time 14:31 Visit Number 10 Number of PRODUCTION INSPECTOR Visits 1 Evaluation Information Evaluation Date 01/15/24 PT-OP-B Current Condition Start: 01/15/24 16:42 Freq: Status: Active Protocol: Document 01/15/24 15:35 DCW (Rec: 01/15/24 17:44 DCW [id number]) Current Condition History of Current Condition Onset Date Multi-year history Current Complaints Low back pain, leg weakness, poor balance History of Current Condition Pt is an 88 year old female very well known to this clinic presenting with worsening low back pain, imbalance, leg weakness, and increased fear of falling. Pt notes she uses her 4WW around the house, which makes her feel more stable, but she cannot get the walker in or out of her car, so she relies on a SPC out in the community. 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 Pt unfortunately lost her earlier this year, and was also diagnosed with breast cancer, although she notes the cancer was excised recently and she believes it is mostly gone. Pt denies any falls, but feels that due to weakness in her legs and her inability to stand up straight, a fall is getting more likely. Low back pain is typically worse with lying supine in bed, bending over, or trying to pear picker something heavy. Treatment Goals Patient/Caregiver Goals Decrease risk of falls PT-OP-C Subjective Start: 01/15/24 16:42 Freq: Status: Active Protocol: Document 03/04/24 13:22 AB (Rec: 03/04/24 15:42 AB [id number]) OP-PT Subjective Patient Comments Patient Comments Patient reports left foot hurts due to arthritis and toes curling under making it hard to walk. Patient rates back and foot pain 3/10 start of session. Sit to stand X 5 at 23.72 seconds webbed chair, hands on chair seat. Unable without UE use. PT-OP-D Balance Start: 01/15/24 16:42 Freq: Status: Active Protocol: Document 03/04/24 13:22 AB (Rec: 03/04/24 15:48 AB [id number]) Balance Tests Yanez Balance Test Yanez Balance Test Score 34/56 Yanez Impairment Rating 20 to 39% Impaired (Score 34- 44) Yanez Balance Assessment Evaluation Sitting to Standing Ability Independent w/Hands Unsupported Stance Safely- 2 minutes Sitting Unsupported, Feet on Floor Safely- 2 minutes Standing to Sitting Ability Assist, Control w/Hands Transfer Ability Safely, Hand Use Unsupported Stance- Eyes Closed Safely, 10 seconds Unsupported Stance- Eyes Open Assist to attain, 15 secs Reaching Forward Standing Safely, 2 inches Pick- Up Object From Floor Supervision Look Behind Shoulder - Standing Shifts Weight Unilateral Turning 360 Degrees Turns slowly, but safely Unsupported Stance, Alternating Feet on 2 Steps w/Minimum Assist Stair Unsupported Tandem Stance Balance Lost- Step/Stand Unilateral Leg Stance Lifts Leg/Unable to Hold Total Score Yanez Total Score (out of 56 points) 34 Yanez Impairment Rating 20 to 39% Impaired (Score 34- 44) PT-OP-E Functional Tests Start: 01/15/24 16:42 Freq: Status: Active Protocol: Document 03/04/24 13:22 AB (Rec: 03/04/24 15:48 AB [id number]) Functional Tests Five Times Sit to Stand Test Score 23.72 seconds Comments with UE use hands on seat of webbed chair, unable without UE use PT-OP-J Posture/Palpation/Skin Start: 01/15/24 16:42 Freq: Status: Active Protocol: Document 01/15/24 15:35 DCW (Rec: 01/15/24 16:52 DCW [id number]) Posture Evaluation Comments Posture Comments Pt presents with severe scoliosis and worsening excessive kyphosis. PT-OP-M Strength Start: 01/15/24 16:42 Freq: Status: Active Protocol: Document 01/15/24 15:35 DCW (Rec: 01/15/24 16:52 DCW [id number]) Hip Strength Hip Manual Muscle Testing Right Flexion (L2) 3+ Fair+ Abduction 4- Good- Adduction 4- Good- Left Flexion (L2) 3+ Fair+ Abduction 4- Good- Adduction 4- Good- Knee Strength Knee Manual Muscle Testing Right Flexion (S2) 4 Good Extension (L3) 4 Good Left Flexion (S2) 4 Good Extension (L3) 4 Good Ankle/Foot Strength Ankle and Foot Manual Muscle Testing Right Dorsiflexion (L4) 3+ Fair+ Left Dorsiflexion (L4) 3+ Fair+ PT-OP-T Assessment and Plan Start: 01/15/24 16:42 Freq: Status: Active Protocol: Document 03/04/24 16:09 DCW (Rec: 03/04/24 16:13 DCW [id number]) Physical Therapy Assessment Impairments Impairments Activity Tolerance,Balance, Functional Activities, Functional Mobility,Gait,Pain, Posture,Soft Tissue Mobility, Strength,Tone Goals Three Impairment Pt completes a five times sit to stand test in 1:51.63 Short Term Goal (STG) Pt to complete her 5xStS test <60 seconds in order to demonstrate an improvement in activity tolerance. STG Duration Met Roof Fixer Goal (LTG) Pt to complete her 5xStS test <30 seconds without UE assistance in order to demonstrate an improvement in activity tolerance. LTG Duration 04/14/24 Two Impairment Pt presents as a high falls risk, per Yanez score (23/56) Short Term Goal (STG) Pt to demonstrate a decrease in falls risk by improving Yanez score by at least seven points, to 30/56 STG Duration Met Roof Fixer Goal (LTG) Pt to demonstrate a decrease in falls risk by improving Yanez score by at least seven points, to 50/56 LTG Duration 04/14/24 One Impairment Pt does not have an appropriate home exercise program Short Term Goal (STG) Pt to be independent and compliant with an appropriate HEP 03/04/2024 Patient reports she is doing the seated hip with band exercise, but not the exercise that requires foot in cabinet under sink as it makes her unsteady and not sit to stand as she does that throughout the day. STG Duration 02/15/24 Assessment Summary Assessment Pt showing very good improvement since initial evaluation. 5xStS score improved by nearly 90 seconds, Yanez improved by 11 points. PT should continue to focus on strength, balance, activity tolerance, and functional mobility. Physical Therapy Plan Frequency and Duration Frequency of Treatment 2x/Week Plan of Care Start Date 01/15/24 Plan of Care End Date 04/14/24 Next Visit Focus/Plan Next Note Type Progress Note Next Visit Plan POC: LE strengthening, balance challenges, gait training, posture
--- NOTE | 2024-03-07 13:44 | PT.OTN ---
Current Diagnoses Low back pain, unspecified (03/07/24) Muscle weakness (generalized) (03/07/24) Unsteadiness on feet (03/07/24) Physical Therapy Treatment Note PT-OP-A Visit Information Start: 01/15/24 16:42 Freq: Status: Active Protocol: Document 03/07/24 13:05 SP (Rec: 03/07/24 13:48 SP [id number]) Out-Patient Physical Therapy Visit Information Visit Information Visit Type Treatment Note Visit Start Time 13:05 Visit Stop Time 13:44 Visit Number 11 Number of ASSISTANT MEN'S SOCCER COACH Visits 2 Evaluation Information Evaluation Date 01/15/24 PT-OP-B Current Condition Start: 01/15/24 16:42 Freq: Status: Active Protocol: Document 01/15/24 15:35 DCW (Rec: 01/15/24 17:44 DCW [id number]) Current Condition History of Current Condition Onset Date Multi-year history Current Complaints Low back pain, leg weakness, poor balance History of Current Condition Pt is an 88 year old female very well known to this clinic presenting with worsening low back pain, imbalance, leg weakness, and increased fear of falling. Pt notes she uses her 4WW around the house, which makes her feel more stable, but she cannot get the walker in or out of her car, so she relies on a SPC out in the community. 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 Pt unfortunately lost her earlier this year, and was also diagnosed with breast cancer, although she notes the cancer was excised recently and she believes it is mostly gone. Pt denies any falls, but feels that due to weakness in her legs and her inability to stand up straight, a fall is getting more likely. Low back pain is typically worse with lying supine in bed, bending over, or trying to medicinal plant picker something heavy. Treatment Goals Patient/Caregiver Goals Decrease risk of falls PT-OP-C Subjective Start: 01/15/24 16:42 Freq: Status: Active Protocol: Document 03/07/24 13:05 SP (Rec: 03/07/24 13:48 SP [id number]) OP-PT Subjective Patient Comments Patient Comments Pt reports did ok after last tx. PT-OP-D Balance Start: 01/15/24 16:42 Freq: Status: Active Protocol: Document 03/04/24 13:22 AB (Rec: 03/04/24 15:48 AB [id number]) Balance Tests Yanez Balance Test Yanez Balance Test Score 34/56 Yanez Impairment Rating 20 to 39% Impaired (Score 34- 44) Yanez Balance Assessment Evaluation Sitting to Standing Ability Independent w/Hands Unsupported Stance Safely- 2 minutes Sitting Unsupported, Feet on Floor Safely- 2 minutes Standing to Sitting Ability Assist, Control w/Hands Transfer Ability Safely, Hand Use Unsupported Stance- Eyes Closed Safely, 10 seconds Unsupported Stance- Eyes Open Assist to attain, 15 secs Reaching Forward Standing Safely, 2 inches Pick- Up Object From Floor Supervision Look Behind Shoulder - Standing Shifts Weight Unilateral Turning 360 Degrees Turns slowly, but safely Unsupported Stance, Alternating Feet on 2 Steps w/Minimum Assist Stair Unsupported Tandem Stance Balance Lost- Step/Stand Unilateral Leg Stance Lifts Leg/Unable to Hold Total Score Yanez Total Score (out of 56 points) 34 Yanez Impairment Rating 20 to 39% Impaired (Score 34- 44) PT-OP-E Functional Tests Start: 01/15/24 16:42 Freq: Status: Active Protocol: Document 03/04/24 13:22 AB (Rec: 03/04/24 15:48 AB [id number]) Functional Tests Five Times Sit to Stand Test Score 23.72 seconds Comments with UE use hands on seat of webbed chair, unable without UE use PT-OP-J Posture/Palpation/Skin Start: 01/15/24 16:42 Freq: Status: Active Protocol: Document 01/15/24 15:35 DCW (Rec: 01/15/24 16:52 DCW [id number]) Posture Evaluation Comments Posture Comments Pt presents with severe scoliosis and worsening excessive kyphosis. PT-OP-M Strength Start: 01/15/24 16:42 Freq: Status: Active Protocol: Document 01/15/24 15:35 DCW (Rec: 01/15/24 16:52 DCW [id number]) Hip Strength Hip Manual Muscle Testing Right Flexion (L2) 3+ Fair+ Abduction 4- Good- Adduction 4- Good- Left Flexion (L2) 3+ Fair+ Abduction 4- Good- Adduction 4- Good- Knee Strength Knee Manual Muscle Testing Right Flexion (S2) 4 Good Extension (L3) 4 Good Left Flexion (S2) 4 Good Extension (L3) 4 Good Ankle/Foot Strength Ankle and Foot Manual Muscle Testing Right Dorsiflexion (L4) 3+ Fair+ Left Dorsiflexion (L4) 3+ Fair+ PT-OP-Q Treatments Start: 01/15/24 16:42 Freq: Status: Active Protocol: Document 03/07/24 13:05 SP (Rec: 03/07/24 13:48 SP [id number]) Gym Equipment Shuttle Balance Red Details WBOS, Staggered (fwd), WBOS lateral Comments CGA-10%A WBOS: no UE support- head turns CGA-10%A stagger stance wt shift CG- 10%A lateral, wt shift Therapeutic Exercises Sitting Exercises LAQ Sitting Exercise Name LAQ- added to HEP /c HO Side bilateral Resistance TB #2 over ankle, under opp foot- ed use tongs help on/off ankles Equipment Used standard mesh chair Reps/Minutes x10 each LE Comments kick to target TKE seated hip abd with band Sitting Exercise Name HEP review Side bilateral Resistance level 3> 4# dark blue around thighs Reps/Minutes one min hold for activation then X10 reps without hold Comments verbal cues for elongated sitting posture Standing Exercises sit to stand Standing Exercise Name with UE use on seat -HEP review Side bilateral Equipment Used BUE on chair ascend, lap descend Reps/Minutes x10 Comments verbal cues to lean fwd, hip hinge w/ ascent, hand placement on seat Neuro Re-Education Treatment Balance Activities Dynamic gait Details Head turns during gait Equipment hallway /c hurry cane Reps/Duration 20' x4 Comments cues for elongated posture retro stepping Equipment hallway /c hurry cane Reps/Duration 10 ftx2 laps Comments cues for elongated posture Tandem Details Tandem Ambulation Equipment light touch glide 1 UE rail Reps/Duration 10' x2 laps Comments Tends to perform semitandem, cues LLE more front improves. PT-OP-T Assessment and Plan Start: 01/15/24 16:42 Freq: Status: Active Protocol: Document 03/07/24 13:05 SP (Rec: 03/07/24 13:48 SP [id number]) Physical Therapy Assessment Goals Three Impairment Pt completes a five times sit to stand test in 1:51.63 Short Term Goal (STG) Pt to complete her 5xStS test <60 seconds in order to demonstrate an improvement in activity tolerance. STG Duration Met Natural Science Manager Goal (LTG) Pt to complete her 5xStS test <30 seconds without UE assistance in order to demonstrate an improvement in activity tolerance. LTG Duration 04/14/24 Two Impairment Pt presents as a high falls risk, per Yanez score (23/56) Short Term Goal (STG) Pt to demonstrate a decrease in falls risk by improving Yanez score by at least seven points, to 30/56 STG Duration Met Natural Science Manager Goal (LTG) Pt to demonstrate a decrease in falls risk by improving Yanez score by at least seven points, to 50/56 LTG Duration 04/14/24 One Impairment Pt does not have an appropriate home exercise program Short Term Goal (STG) Pt to be independent and compliant with an appropriate HEP 03/04/2024 Patient reports she is doing the seated hip with band exercise, but not the exercise that requires foot in cabinet under sink as it makes her unsteady and not sit to stand as she does that throughout the day. STG Duration 02/15/24 Assessment Summary Assessment Pt improved postural corrections with cuing during gait and balance activities. Provided HO and band for progression LE strengthening for home carryover. Physical Therapy Plan Frequency and Duration Frequency of Treatment 2x/Week Plan of Care Start Date 01/15/24 Plan of Care End Date 04/14/24 Therapeutic Interventions Therapeutic Interventions Balance Training,Coordination Training,Gait Training,Home Exercise Program,Joint Mobilizations,Manual Therapy, Neuromuscular Re-education, Patient/Caregiver Education, Self-Care/Home Management,Soft Tissue Mobilization, Therapeutic Activities, Therapeutic Exercises Modalities Cold Pack/Ice Massage,Electric Stimulation,Hot Packs Next Visit Focus/Plan Next Note Type Treatment Note Next Visit Plan Continue initiate LE ex, increase stride gait during gait, progressing balance activities. Next revisit hurdles. POC: LE strengthening, balance challenges, gait training, posture
--- NOTE | 2024-03-11 14:29 | PT.OTN ---
Current Diagnoses Low back pain, unspecified (03/11/24) Muscle weakness (generalized) (03/11/24) Unsteadiness on feet (03/11/24) Physical Therapy Treatment Note PT-OP-A Visit Information Start: 01/15/24 16:42 Freq: Status: Active Protocol: Document 03/11/24 13:55 DCW (Rec: 03/11/24 14:29 DCW [id number]) Out-Patient Physical Therapy Visit Information Visit Information Visit Type Treatment Note Visit Note Late arrival Visit Start Time 13:55 Visit Stop Time 14:30 Visit Number 12 Number of NUTRITION WORKER Visits 0 Evaluation Information Evaluation Date 01/15/24 PT-OP-B Current Condition Start: 01/15/24 16:42 Freq: Status: Active Protocol: Document 01/15/24 15:35 DCW (Rec: 01/15/24 17:44 DCW [id number]) Current Condition History of Current Condition Onset Date Multi-year history Current Complaints Low back pain, leg weakness, poor balance History of Current Condition Pt is an 88 year old female very well known to this clinic presenting with worsening low back pain, imbalance, leg weakness, and increased fear of falling. Pt notes she uses her 4WW around the house, which makes her feel more stable, but she cannot get the walker in or out of her car, so she relies on a SPC out in the community. 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 Pt unfortunately lost her earlier this year, and was also diagnosed with breast cancer, although she notes the cancer was excised recently and she believes it is mostly gone. Pt denies any falls, but feels that due to weakness in her legs and her inability to stand up straight, a fall is getting more likely. Low back pain is typically worse with lying supine in bed, bending over, or trying to fruit picker machine operator something heavy. Treatment Goals Patient/Caregiver Goals Decrease risk of falls PT-OP-C Subjective Start: 01/15/24 16:42 Freq: Status: Active Protocol: Document 03/11/24 13:55 DCW (Rec: 03/11/24 14:29 DCW [id number]) OP-PT Subjective Patient Comments Patient Comments Back hurts, feet hurts, it's just rough. PT-OP-D Balance Start: 01/15/24 16:42 Freq: Status: Active Protocol: Document 03/04/24 13:22 AB (Rec: 03/04/24 15:48 AB [id number]) Balance Tests Yanez Balance Test Yanez Balance Test Score 34/56 Yanez Impairment Rating 20 to 39% Impaired (Score 34- 44) Yanez Balance Assessment Evaluation Sitting to Standing Ability Independent w/Hands Unsupported Stance Safely- 2 minutes Sitting Unsupported, Feet on Floor Safely- 2 minutes Standing to Sitting Ability Assist, Control w/Hands Transfer Ability Safely, Hand Use Unsupported Stance- Eyes Closed Safely, 10 seconds Unsupported Stance- Eyes Open Assist to attain, 15 secs Reaching Forward Standing Safely, 2 inches Pick- Up Object From Floor Supervision Look Behind Shoulder - Standing Shifts Weight Unilateral Turning 360 Degrees Turns slowly, but safely Unsupported Stance, Alternating Feet on 2 Steps w/Minimum Assist Stair Unsupported Tandem Stance Balance Lost- Step/Stand Unilateral Leg Stance Lifts Leg/Unable to Hold Total Score Yanez Total Score (out of 56 points) 34 Yanez Impairment Rating 20 to 39% Impaired (Score 34- 44) PT-OP-E Functional Tests Start: 01/15/24 16:42 Freq: Status: Active Protocol: Document 03/04/24 13:22 AB (Rec: 03/04/24 15:48 AB [id number]) Functional Tests Five Times Sit to Stand Test Score 23.72 seconds Comments with UE use hands on seat of webbed chair, unable without UE use PT-OP-J Posture/Palpation/Skin Start: 01/15/24 16:42 Freq: Status: Active Protocol: Document 01/15/24 15:35 DCW (Rec: 01/15/24 16:52 DCW [id number]) Posture Evaluation Comments Posture Comments Pt presents with severe scoliosis and worsening excessive kyphosis. PT-OP-M Strength Start: 01/15/24 16:42 Freq: Status: Active Protocol: Document 01/15/24 15:35 DCW (Rec: 01/15/24 16:52 DCW [id number]) Hip Strength Hip Manual Muscle Testing Right Flexion (L2) 3+ Fair+ Abduction 4- Good- Adduction 4- Good- Left Flexion (L2) 3+ Fair+ Abduction 4- Good- Adduction 4- Good- Knee Strength Knee Manual Muscle Testing Right Flexion (S2) 4 Good Extension (L3) 4 Good Left Flexion (S2) 4 Good Extension (L3) 4 Good Ankle/Foot Strength Ankle and Foot Manual Muscle Testing Right Dorsiflexion (L4) 3+ Fair+ Left Dorsiflexion (L4) 3+ Fair+ PT-OP-Q Treatments Start: 01/15/24 16:42 Freq: Status: Active Protocol: Document 03/11/24 13:55 DCW (Rec: 03/11/24 14:29 DCW [id number]) Gym Equipment Shuttle Balance Red Details WBOS, Staggered Therapeutic Exercises Other Exercises Toe Taps Other Exercise Name Toe-taps Side bilateral Resistance 4# Equipment Used 6 step @ rail Reps/Minutes x10 Side-stepping Other Exercise Name Side-stepping Resistance Green Reps/Minutes @ rail Comments cues upright posture Neuro Re-Education Treatment Balance Activities Hurdles Details Hurdles/Foam Equipment @ rail Comments Forward, Lateral Foam Details Stepping Stones Comments varied foam pads Tandem Details Tandem Ambulation Equipment @ rail, light UE touch Reps/Duration 10' x4 Comments CGA PT-OP-T Assessment and Plan Start: 01/15/24 16:42 Freq: Status: Active Protocol: Document 03/11/24 13:55 DCW (Rec: 03/11/24 14:29 DCW [id number]) Physical Therapy Assessment Impairments Impairments Activity Tolerance,Balance, Functional Activities, Functional Mobility,Gait,Pain, Posture,Soft Tissue Mobility, Strength,Tone Goals Three Impairment Pt completes a five times sit to stand test in 1:51.63 Short Term Goal (STG) Pt to complete her 5xStS test <60 seconds in order to demonstrate an improvement in activity tolerance. STG Duration Met Railroad Dispatcher Goal (LTG) Pt to complete her 5xStS test <30 seconds without UE assistance in order to demonstrate an improvement in activity tolerance. LTG Duration 04/14/24 Two Impairment Pt presents as a high falls risk, per Yanez score (56) Short Term Goal (STG) Pt to demonstrate a decrease in falls risk by improving Yanez score by at least seven points, to 30/56 STG Duration Met Railroad Dispatcher Goal (LTG) Pt to demonstrate a decrease in falls risk by improving Yanez score by at least seven points, to 50/56 LTG Duration 1/13/25 One Impairment Pt does not have an appropriate home exercise program Short Term Goal (STG) Pt to be independent and compliant with an appropriate HEP 03/04/2024 Patient reports she is doing the seated hip with band exercise, but not the exercise that requires foot in cabinet under sink as it makes her unsteady and not sit to stand as she does that throughout the day. STG Duration 02/15/24 Assessment Summary Assessment Pt did well today, although time limitations due to late arrival. Continue to work on leg strength, balance, and activity tolerance. Physical Therapy Plan Frequency and Duration Frequency of Treatment 2x/Week Plan of Care Start Date 01/15/24 Plan of Care End Date 04/14/24 Therapeutic Interventions Therapeutic Interventions Balance Training,Coordination Training,Gait Training,Home Exercise Program,Joint Mobilizations,Manual Therapy, Neuromuscular Re-education, Patient/Caregiver Education, Self-Care/Home Management,Soft Tissue Mobilization, Therapeutic Activities, Therapeutic Exercises Modalities Cold Pack/Ice Massage,Electric Stimulation,Hot Packs Next Visit Focus/Plan Next Note Type Treatment Note Next Visit Plan Continue initiate LE ex, increase stride gait during gait, progressing balance activities. Next revisit hurdles. POC: LE strengthening, balance challenges, gait training, posture
--- NOTE | 2024-03-14 13:46 | PT.OTN ---
Current Diagnoses Low back pain, unspecified (03/14/24) Muscle weakness (generalized) (03/14/24) Unsteadiness on feet (03/14/24) Physical Therapy Treatment Note PT-OP-A Visit Information Start: 01/15/24 16:42 Freq: Status: Active Protocol: Document 03/14/24 13:03 SP (Rec: 03/14/24 13:49 SP [id number]) Out-Patient Physical Therapy Visit Information Visit Information Visit Type Treatment Note Visit Start Time 13:03 Visit Stop Time 13:46 Visit Number 13 Number of MATERIALS ENGINEERING TECHNICIAN Visits 1 Evaluation Information Evaluation Date 01/15/24 PT-OP-B Current Condition Start: 01/15/24 16:42 Freq: Status: Active Protocol: Document 01/15/24 15:35 DCW (Rec: 01/15/24 17:44 DCW [id number]) Current Condition History of Current Condition Onset Date Multi-year history Current Complaints Low back pain, leg weakness, poor balance History of Current Condition Pt is an 88 year old female very well known to this clinic presenting with worsening low back pain, imbalance, leg weakness, and increased fear of falling. Pt notes she uses her 4WW around the house, which makes her feel more stable, but she cannot get the walker in or out of her car, so she relies on a SPC out in the community. 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 Pt unfortunately lost her earlier this year, and was also diagnosed with breast cancer, although she notes the cancer was excised recently and she believes it is mostly gone. Pt denies any falls, but feels that due to weakness in her legs and her inability to stand up straight, a fall is getting more likely. Low back pain is typically worse with lying supine in bed, bending over, or trying to pecan picker something heavy. Treatment Goals Patient/Caregiver Goals Decrease risk of falls PT-OP-C Subjective Start: 01/15/24 16:42 Freq: Status: Active Protocol: Document 03/14/24 13:03 SP (Rec: 03/14/24 13:49 SP [id number]) OP-PT Subjective Patient Comments Patient Comments Nothing new to report. PT-OP-D Balance Start: 01/15/24 16:42 Freq: Status: Active Protocol: Document 03/04/24 13:22 AB (Rec: 03/04/24 15:48 AB [id number]) Balance Tests Yanez Balance Test Yanez Balance Test Score 34/56 Yanez Impairment Rating 20 to 39% Impaired (Score 34- 44) Yanez Balance Assessment Evaluation Sitting to Standing Ability Independent w/Hands Unsupported Stance Safely- 2 minutes Sitting Unsupported, Feet on Floor Safely- 2 minutes Standing to Sitting Ability Assist, Control w/Hands Transfer Ability Safely, Hand Use Unsupported Stance- Eyes Closed Safely, 10 seconds Unsupported Stance- Eyes Open Assist to attain, 15 secs Reaching Forward Standing Safely, 2 inches Pick- Up Object From Floor Supervision Look Behind Shoulder - Standing Shifts Weight Unilateral Turning 360 Degrees Turns slowly, but safely Unsupported Stance, Alternating Feet on 2 Steps w/Minimum Assist Stair Unsupported Tandem Stance Balance Lost- Step/Stand Unilateral Leg Stance Lifts Leg/Unable to Hold Total Score Yanez Total Score (out of 56 points) 34 Yanez Impairment Rating 20 to 39% Impaired (Score 34- 44) PT-OP-E Functional Tests Start: 01/15/24 16:42 Freq: Status: Active Protocol: Document 03/04/24 13:22 AB (Rec: 03/04/24 15:48 AB [id number]) Functional Tests Five Times Sit to Stand Test Score 23.72 seconds Comments with UE use hands on seat of webbed chair, unable without UE use PT-OP-J Posture/Palpation/Skin Start: 01/15/24 16:42 Freq: Status: Active Protocol: Document 01/15/24 15:35 DCW (Rec: 01/15/24 16:52 DCW [id number]) Posture Evaluation Comments Posture Comments Pt presents with severe scoliosis and worsening excessive kyphosis. PT-OP-M Strength Start: 01/15/24 16:42 Freq: Status: Active Protocol: Document 01/15/24 15:35 DCW (Rec: 01/15/24 16:52 DCW [id number]) Hip Strength Hip Manual Muscle Testing Right Flexion (L2) 3+ Fair+ Abduction 4- Good- Adduction 4- Good- Left Flexion (L2) 3+ Fair+ Abduction 4- Good- Adduction 4- Good- Knee Strength Knee Manual Muscle Testing Right Flexion (S2) 4 Good Extension (L3) 4 Good Left Flexion (S2) 4 Good Extension (L3) 4 Good Ankle/Foot Strength Ankle and Foot Manual Muscle Testing Right Dorsiflexion (L4) 3+ Fair+ Left Dorsiflexion (L4) 3+ Fair+ PT-OP-Q Treatments Start: 01/15/24 16:42 Freq: Status: Active Protocol: Document 03/14/24 13:03 SP (Rec: 03/14/24 13:49 SP [id number]) Gym Equipment Shuttle Balance Red Details WBOS, Staggered Therapeutic Exercises Standing Exercises shld ext Standing Exercise Name trialed in PT Resistance Tb #2 orange Reps/Minutes x10 Comments cued elongated posture Other Exercises Toe Taps Other Exercise Name Toe-taps Side bilateral Resistance 4# leg wt Equipment Used 6 step, R HR during RLE tap none during LLE taps Reps/Minutes 20 reps alternating Comments cues for upright elongated posture Side-stepping Other Exercise Name Side-stepping Resistance Green Reps/Minutes @ rail Comments cues upright posture Gait Training Gait Activity AD Distance/Duration hallway 50 ft x2 laps Treatment Focus increase stride, posture Neuro Re-Education Treatment Balance Activities Dynamic gait Equipment //bars, 1 rail semi tandem, no rail back stepping Reps/Duration 10 ft x3 laps tandem fwd, back stepping Comments cues for elongated posture, looking up at X on wall Hurdles Details Hurdles/Foam: fwd- receiprocal , lateral Equipment 1 rail Reps/Duration 3 laps each Comments cued upright posture PT-OP-T Assessment and Plan Start: 01/15/24 16:42 Freq: Status: Active Protocol: Document 03/14/24 13:03 SP (Rec: 03/14/24 13:49 SP [id number]) Physical Therapy Assessment Goals Three Impairment Pt completes a five times sit to stand test in 1:51.63 Short Term Goal (STG) Pt to complete her 5xStS test <60 seconds in order to demonstrate an improvement in activity tolerance. STG Duration Met Fisherman Helper Goal (LTG) Pt to complete her 5xStS test <30 seconds without UE assistance in order to demonstrate an improvement in activity tolerance. LTG Duration 04/14/24 Two Impairment Pt presents as a high falls risk, per Yanez score (23/56) Short Term Goal (STG) Pt to demonstrate a decrease in falls risk by improving Yanez score by at least seven points, to 30/56 STG Duration Met Alf Goal (LTG) Pt to demonstrate a decrease in falls risk by improving Yanez score by at least seven points, to 50/56 LTG Duration 04/14/24 One Impairment Pt does not have an appropriate home exercise program Short Term Goal (STG) Pt to be independent and compliant with an appropriate HEP 03/04/2024 Patient reports she is doing the seated hip with band exercise, but not the exercise that requires foot in cabinet under sink as it makes her unsteady and not sit to stand as she does that throughout the day. STG Duration 02/15/24 Assessment Summary Assessment Pt cuing for upright posturing throughout tx, progress decrease to 1 HR throughout balance activities. Cuing for increase stride and L arm swing progression normalizing longer distance gait. Physical Therapy Plan Frequency and Duration Frequency of Treatment 2x/Week Plan of Care Start Date 01/15/24 Plan of Care End Date 04/14/24 Therapeutic Interventions Therapeutic Interventions Balance Training,Coordination Training,Gait Training,Home Exercise Program,Joint Mobilizations,Manual Therapy, Neuromuscular Re-education, Patient/Caregiver Education, Self-Care/Home Management,Soft Tissue Mobilization, Therapeutic Activities, Therapeutic Exercises Modalities Cold Pack/Ice Massage,Electric Stimulation,Hot Packs Next Visit Focus/Plan Next Note Type Treatment Note Next Visit Plan Continue initiate LE ex, increase stride gait during gait, progressing balance activities. POC: LE strengthening, balance challenges, gait training, posture
--- NOTE | 2024-03-18 17:37 | PT.OTN ---
Current Diagnoses Low back pain, unspecified (03/18/24) Muscle weakness (generalized) (03/18/24) Unsteadiness on feet (03/18/24) Physical Therapy Treatment Note PT-OP-A Visit Information Start: 01/15/24 16:42 Freq: Status: Active Protocol: Document 03/18/24 16:45 DCW (Rec: 03/18/24 17:36 DCW [id number]) Out-Patient Physical Therapy Visit Information Visit Information Visit Type Treatment Note Visit Start Time 16:45 Visit Stop Time 17:30 Visit Number 14 Number of GOLD LEAF PRINTER Visits 0 Evaluation Information Evaluation Date 01/15/24 PT-OP-B Current Condition Start: 01/15/24 16:42 Freq: Status: Active Protocol: Document 01/15/24 15:35 DCW (Rec: 01/15/24 17:44 DCW [id number]) Current Condition History of Current Condition Onset Date Multi-year history Current Complaints Low back pain, leg weakness, poor balance History of Current Condition Pt is an 88 year old female very well known to this clinic presenting with worsening low back pain, imbalance, leg weakness, and increased fear of falling. Pt notes she uses her 4WW around the house, which makes her feel more stable, but she cannot get the walker in or out of her car, so she relies on a SPC out in the community. 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 Pt unfortunately lost her earlier this year, and was also diagnosed with breast cancer, although she notes the cancer was excised recently and she believes it is mostly gone. Pt denies any falls, but feels that due to weakness in her legs and her inability to stand up straight, a fall is getting more likely. Low back pain is typically worse with lying supine in bed, bending over, or trying to pick up worker something heavy. Treatment Goals Patient/Caregiver Goals Decrease risk of falls PT-OP-C Subjective Start: 01/15/24 16:42 Freq: Status: Active Protocol: Document 03/18/24 16:45 DCW (Rec: 03/18/24 17:37 DCW [id number]) OP-PT Subjective Patient Comments Patient Comments Pt feeling pretty good, but doesn't like having appointments this late. PT-OP-D Balance Start: 01/15/24 16:42 Freq: Status: Active Protocol: Document 03/04/24 13:22 AB (Rec: 03/04/24 15:48 AB [id number]) Balance Tests Yanez Balance Test Yanez Balance Test Score 34/56 Yanez Impairment Rating 20 to 39% Impaired (Score 34- 44) Yanez Balance Assessment Evaluation Sitting to Standing Ability Independent w/Hands Unsupported Stance Safely- 2 minutes Sitting Unsupported, Feet on Floor Safely- 2 minutes Standing to Sitting Ability Assist, Control w/Hands Transfer Ability Safely, Hand Use Unsupported Stance- Eyes Closed Safely, 10 seconds Unsupported Stance- Eyes Open Assist to attain, 15 secs Reaching Forward Standing Safely, 2 inches Pick- Up Object From Floor Supervision Look Behind Shoulder - Standing Shifts Weight Unilateral Turning 360 Degrees Turns slowly, but safely Unsupported Stance, Alternating Feet on 2 Steps w/Minimum Assist Stair Unsupported Tandem Stance Balance Lost- Step/Stand Unilateral Leg Stance Lifts Leg/Unable to Hold Total Score Yanez Total Score (out of 56 points) 34 Yanez Impairment Rating 20 to 39% Impaired (Score 34- 44) PT-OP-E Functional Tests Start: 01/15/24 16:42 Freq: Status: Active Protocol: Document 03/04/24 13:22 AB (Rec: 03/04/24 15:48 AB [id number]) Functional Tests Five Times Sit to Stand Test Score 23.72 seconds Comments with UE use hands on seat of webbed chair, unable without UE use PT-OP-J Posture/Palpation/Skin Start: 01/15/24 16:42 Freq: Status: Active Protocol: Document 01/15/24 15:35 DCW (Rec: 01/15/24 16:52 DCW [id number]) Posture Evaluation Comments Posture Comments Pt presents with severe scoliosis and worsening excessive kyphosis. PT-OP-M Strength Start: 01/15/24 16:42 Freq: Status: Active Protocol: Document 01/15/24 15:35 DCW (Rec: 01/15/24 16:52 DCW [id number]) Hip Strength Hip Manual Muscle Testing Right Flexion (L2) 3+ Fair+ Abduction 4- Good- Adduction 4- Good- Left Flexion (L2) 3+ Fair+ Abduction 4- Good- Adduction 4- Good- Knee Strength Knee Manual Muscle Testing Right Flexion (S2) 4 Good Extension (L3) 4 Good Left Flexion (S2) 4 Good Extension (L3) 4 Good Ankle/Foot Strength Ankle and Foot Manual Muscle Testing Right Dorsiflexion (L4) 3+ Fair+ Left Dorsiflexion (L4) 3+ Fair+ PT-OP-Q Treatments Start: 01/15/24 16:42 Freq: Status: Active Protocol: Document 03/18/24 16:45 DCW (Rec: 03/18/24 17:36 DCW [id number]) Gym Equipment Shuttle Balance Red Details WBOS, Staggered Therapeutic Exercises Standing Exercises Hamstring Curls Standing Exercise Name Hamstring Curls Side bilateral Resistance 5# Equipment Used // bars Other Exercises Toe Taps Other Exercise Name Toe-taps Side bilateral Resistance 5# leg wt Equipment Used 6 step Reps/Minutes 20 reps alternating Neuro Re-Education Treatment Balance Activities SLS Details SLS Equipment // bars Dynamic gait Equipment // bars Comments retro ambulation, lateral stepping Hurdles Details Hurdles/Foam Equipment // bars Comments Forward, Lateral Foam Details DL stance Comments EO/EC, X1 Tandem Details Tandem Ambulation Equipment // bars, light UE touch Reps/Duration 10' x6 Comments CGA PT-OP-T Assessment and Plan Start: 01/15/24 16:42 Freq: Status: Active Protocol: Document 03/18/24 16:45 DCW (Rec: 03/18/24 17:36 DCW [id number]) Physical Therapy Assessment Impairments Impairments Activity Tolerance,Balance, Functional Activities, Functional Mobility,Gait,Pain, Posture,Soft Tissue Mobility, Strength,Tone Goals Three Impairment Pt completes a five times sit to stand test in 1:51.63 Short Term Goal (STG) Pt to complete her 5xStS test <60 seconds in order to demonstrate an improvement in activity tolerance. STG Duration Met Business Machines Teacher Goal (LTG) Pt to complete her 5xStS test <30 seconds without UE assistance in order to demonstrate an improvement in activity tolerance. LTG Duration 04/14/24 Two Impairment Pt presents as a high falls risk, per Yanez score () Short Term Goal (STG) Pt to demonstrate a decrease in falls risk by improving Yanez score by at least seven points, to STG Duration Met Assisted Goal (LTG) Pt to demonstrate a decrease in falls risk by improving Yanez score by at least seven points, to 50/56 LTG Duration 04/14/24 One Impairment Pt does not have an appropriate home exercise program Short Term Goal (STG) Pt to be independent and compliant with an appropriate HEP 03/04/2024 Patient reports she is doing the seated hip with band exercise, but not the exercise that requires foot in cabinet under sink as it makes her unsteady and not sit to stand as she does that throughout the day. STG Duration 02/15/24 Assessment Summary Assessment Pt clearly struggles with upright posture due to excessive kyphosis and scoliosis. Continues to require verbal cues for stride length. Physical Therapy Plan Frequency and Duration Frequency of Treatment 2x/Week Plan of Care Start Date 01/15/24 Plan of Care End Date 04/14/24 Therapeutic Interventions Therapeutic Interventions Balance Training,Coordination Training,Gait Training,Home Exercise Program,Joint Mobilizations,Manual Therapy, Neuromuscular Re-education, Patient/Caregiver Education, Self-Care/Home Management,Soft Tissue Mobilization, Therapeutic Activities, Therapeutic Exercises Modalities Cold Pack/Ice Massage,Electric Stimulation,Hot Packs Next Visit Focus/Plan Next Note Type Treatment Note Next Visit Plan Continue initiate LE ex, increase stride gait during gait, progressing balance activities. POC: LE strengthening, balance challenges, gait training, posture
--- NOTE | 2024-03-21 14:30 | PT.OTN ---
Current Diagnoses Low back pain, unspecified (03/21/24) Muscle weakness (generalized) (03/21/24) Unsteadiness on feet (03/21/24) Physical Therapy Treatment Note PT-OP-A Visit Information Start: 01/15/24 16:42 Freq: Status: Active Protocol: Document 03/21/24 13:55 DCW (Rec: 03/21/24 14:30 DCW [id number]) Out-Patient Physical Therapy Visit Information Visit Information Visit Type Treatment Note Visit Note Arrived 10 minutes late Visit Start Time 13:55 Visit Stop Time 14:30 Visit Number 15 Number of HOME HEALTH CLINICAL LIAISON Visits 0 Evaluation Information Evaluation Date 01/15/24 PT-OP-B Current Condition Start: 01/15/24 16:42 Freq: Status: Active Protocol: Document 01/15/24 15:35 DCW (Rec: 01/15/24 17:44 DCW [id number]) Current Condition History of Current Condition Onset Date Multi-year history Current Complaints Low back pain, leg weakness, poor balance History of Current Condition Pt is an 88 year old female very well known to this clinic presenting with worsening low back pain, imbalance, leg weakness, and increased fear of falling. Pt notes she uses her 4WW around the house, which makes her feel more stable, but she cannot get the walker in or out of her car, so she relies on a SPC out in the community. 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 Pt unfortunately lost her earlier this year, and was also diagnosed with breast cancer, although she notes the cancer was excised recently and she believes it is mostly gone. Pt denies any falls, but feels that due to weakness in her legs and her inability to stand up straight, a fall is getting more likely. Low back pain is typically worse with lying supine in bed, bending over, or trying to tow picker something heavy. Treatment Goals Patient/Caregiver Goals Decrease risk of falls PT-OP-C Subjective Start: 01/15/24 16:42 Freq: Status: Active Protocol: Document 03/21/24 13:55 DCW (Rec: 03/21/24 14:30 DCW [id number]) OP-PT Subjective Patient Comments Patient Comments Well, I made it here, so I'm alright. PT-OP-D Balance Start: 01/15/24 16:42 Freq: Status: Active Protocol: Document 03/04/24 13:22 AB (Rec: 03/04/24 15:48 AB [id number]) Balance Tests Yanez Balance Test Yanez Balance Test Score 34/56 Yanez Impairment Rating 20 to 39% Impaired (Score 34- 44) Yanez Balance Assessment Evaluation Sitting to Standing Ability Independent w/Hands Unsupported Stance Safely- 2 minutes Sitting Unsupported, Feet on Floor Safely- 2 minutes Standing to Sitting Ability Assist, Control w/Hands Transfer Ability Safely, Hand Use Unsupported Stance- Eyes Closed Safely, 10 seconds Unsupported Stance- Eyes Open Assist to attain, 15 secs Reaching Forward Standing Safely, 2 inches Pick- Up Object From Floor Supervision Look Behind Shoulder - Standing Shifts Weight Unilateral Turning 360 Degrees Turns slowly, but safely Unsupported Stance, Alternating Feet on 2 Steps w/Minimum Assist Stair Unsupported Tandem Stance Balance Lost- Step/Stand Unilateral Leg Stance Lifts Leg/Unable to Hold Total Score Yanez Total Score (out of 56 points) 34 Yanez Impairment Rating 20 to 39% Impaired (Score 34- 44) PT-OP-E Functional Tests Start: 01/15/24 16:42 Freq: Status: Active Protocol: Document 03/04/24 13:22 AB (Rec: 03/04/24 15:48 AB [id number]) Functional Tests Five Times Sit to Stand Test Score 23.72 seconds Comments with UE use hands on seat of webbed chair, unable without UE use PT-OP-J Posture/Palpation/Skin Start: 01/15/24 16:42 Freq: Status: Active Protocol: Document 01/15/24 15:35 DCW (Rec: 01/15/24 16:52 DCW [id number]) Posture Evaluation Comments Posture Comments Pt presents with severe scoliosis and worsening excessive kyphosis. PT-OP-M Strength Start: 01/15/24 16:42 Freq: Status: Active Protocol: Document 01/15/24 15:35 DCW (Rec: 01/15/24 16:52 DCW [id number]) Hip Strength Hip Manual Muscle Testing Right Flexion (L2) 3+ Fair+ Abduction 4- Good- Adduction 4- Good- Left Flexion (L2) 3+ Fair+ Abduction 4- Good- Adduction 4- Good- Knee Strength Knee Manual Muscle Testing Right Flexion (S2) 4 Good Extension (L3) 4 Good Left Flexion (S2) 4 Good Extension (L3) 4 Good Ankle/Foot Strength Ankle and Foot Manual Muscle Testing Right Dorsiflexion (L4) 3+ Fair+ Left Dorsiflexion (L4) 3+ Fair+ PT-OP-Q Treatments Start: 01/15/24 16:42 Freq: Status: Active Protocol: Document 03/21/24 13:55 DCW (Rec: 03/21/24 14:30 DCW [id number]) Gym Equipment Shuttle Balance Red Details WBOS, Staggered Neuro Re-Education Treatment Balance Activities SLS Details SLS Equipment // bars Dynamic gait Equipment @ rail Comments tandem ambulation, retro ambulation, lateral stepping Hurdles Details Hurdles Equipment @ rail Comments Forward, Lateral Foam Details Balloon Shad PT-OP-T Assessment and Plan Start: 01/15/24 16:42 Freq: Status: Active Protocol: Document 03/21/24 13:55 DCW (Rec: 03/21/24 14:30 DCW [id number]) Physical Therapy Assessment Impairments Impairments Activity Tolerance,Balance, Functional Activities, Functional Mobility,Gait,Pain, Posture,Soft Tissue Mobility, Strength,Tone Goals Three Impairment Pt completes a five times sit to stand test in 1:51.63 Short Term Goal (STG) Pt to complete her 5xStS test <60 seconds in order to demonstrate an improvement in activity tolerance. STG Duration Met Halfway Goal (LTG) Pt to complete her 5xStS test <30 seconds without UE assistance in order to demonstrate an improvement in activity tolerance. LTG Duration 04/14/24 Two Impairment Pt presents as a high falls risk, per Yanez score (23/56) Short Term Goal (STG) Pt to demonstrate a decrease in falls risk by improving Yanez score by at least seven points, to 30/56 STG Duration Met Medical Technical Writer Goal (LTG) Pt to demonstrate a decrease in falls risk by improving Yanez score by at least seven points, to 50/56 LTG Duration 04/14/24 One Impairment Pt does not have an appropriate home exercise program Short Term Goal (STG) Pt to be independent and compliant with an appropriate HEP 03/04/2024 Patient reports she is doing the seated hip with band exercise, but not the exercise that requires foot in cabinet under sink as it makes her unsteady and not sit to stand as she does that throughout the day. STG Duration 02/15/24 Assessment Summary Assessment Pt struggled a bit when instructed to let go of railing when attempting to hit balloon. Is showing some improvement with side-stepping and dorota clearance. Physical Therapy Plan Frequency and Duration Frequency of Treatment 2x/Week Plan of Care Start Date 01/15/24 Plan of Care End Date 04/14/24 Therapeutic Interventions Therapeutic Interventions Balance Training,Coordination Training,Gait Training,Home Exercise Program,Joint Mobilizations,Manual Therapy, Neuromuscular Re-education, Patient/Caregiver Education, Self-Care/Home Management,Soft Tissue Mobilization, Therapeutic Activities, Therapeutic Exercises Modalities Cold Pack/Ice Massage,Electric Stimulation,Hot Packs Next Visit Focus/Plan Next Note Type Treatment Note Next Visit Plan Continue initiate LE ex, increase stride gait during gait, progressing balance activities. POC: LE strengthening, balance challenges, gait training, posture
--- NOTE | 2024-03-24 14:30 | PT.OTN ---
Current Diagnoses Low back pain, unspecified (03/24/24) Muscle weakness (generalized) (03/24/24) Unsteadiness on feet (03/24/24) Physical Therapy Treatment Note PT-OP-A Visit Information Start: 01/15/24 16:42 Freq: Status: Active Protocol: Document 03/24/24 13:48 SP (Rec: 03/24/24 14:35 SP [id number]) Out-Patient Physical Therapy Visit Information Visit Information Visit Type Treatment Note Visit Start Time 13:48 Visit Stop Time 14:30 Visit Number 16 (10/09 with PN) Number of 411 DIRECTORY ASSISTANCE OPERATOR Visits 1 Evaluation Information Evaluation Date 01/15/24 PT-OP-B Current Condition Start: 01/15/24 16:42 Freq: Status: Active Protocol: Document 01/15/24 15:35 DCW (Rec: 01/15/24 17:44 DCW [id number]) Current Condition History of Current Condition Onset Date Multi-year history Current Complaints Low back pain, leg weakness, poor balance History of Current Condition Pt is an 88 year old female very well known to this clinic presenting with worsening low back pain, imbalance, leg weakness, and increased fear of falling. Pt notes she uses her 4WW around the house, which makes her feel more stable, but she cannot get the walker in or out of her car, so she relies on a SPC out in the community. 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 Pt unfortunately lost her earlier this year, and was also diagnosed with breast cancer, although she notes the cancer was excised recently and she believes it is mostly gone. Pt denies any falls, but feels that due to weakness in her legs and her inability to stand up straight, a fall is getting more likely. Low back pain is typically worse with lying supine in bed, bending over, or trying to cigar packer and picker something heavy. Treatment Goals Patient/Caregiver Goals Decrease risk of falls PT-OP-C Subjective Start: 01/15/24 16:42 Freq: Status: Active Protocol: Document 03/24/24 13:48 SP (Rec: 03/24/24 14:35 SP [id number]) OP-PT Subjective Patient Comments Patient Comments Pt reports I feel fine today . PT-OP-D Balance Start: 01/15/24 16:42 Freq: Status: Active Protocol: Document 03/04/24 13:22 AB (Rec: 03/04/24 15:48 AB [id number]) Balance Tests Yanez Balance Test Yanez Balance Test Score 34/56 Yanez Impairment Rating 20 to 39% Impaired (Score 34- 44) Yanez Balance Assessment Evaluation Sitting to Standing Ability Independent w/Hands Unsupported Stance Safely- 2 minutes Sitting Unsupported, Feet on Floor Safely- 2 minutes Standing to Sitting Ability Assist, Control w/Hands Transfer Ability Safely, Hand Use Unsupported Stance- Eyes Closed Safely, 10 seconds Unsupported Stance- Eyes Open Assist to attain, 15 secs Reaching Forward Standing Safely, 2 inches Pick- Up Object From Floor Supervision Look Behind Shoulder - Standing Shifts Weight Unilateral Turning 360 Degrees Turns slowly, but safely Unsupported Stance, Alternating Feet on 2 Steps w/Minimum Assist Stair Unsupported Tandem Stance Balance Lost- Step/Stand Unilateral Leg Stance Lifts Leg/Unable to Hold Total Score Yanez Total Score (out of 56 points) 34 Yanez Impairment Rating 20 to 39% Impaired (Score 34- 44) PT-OP-E Functional Tests Start: 01/15/24 16:42 Freq: Status: Active Protocol: Document 03/04/24 13:22 AB (Rec: 03/04/24 15:48 AB [id number]) Functional Tests Five Times Sit to Stand Test Score 23.72 seconds Comments with UE use hands on seat of webbed chair, unable without UE use PT-OP-J Posture/Palpation/Skin Start: 01/15/24 16:42 Freq: Status: Active Protocol: Document 01/15/24 15:35 DCW (Rec: 01/15/24 16:52 DCW [id number]) Posture Evaluation Comments Posture Comments Pt presents with severe scoliosis and worsening excessive kyphosis. PT-OP-M Strength Start: 01/15/24 16:42 Freq: Status: Active Protocol: Document 01/15/24 15:35 DCW (Rec: 01/15/24 16:52 DCW [id number]) Hip Strength Hip Manual Muscle Testing Right Flexion (L2) 3+ Fair+ Abduction 4- Good- Adduction 4- Good- Left Flexion (L2) 3+ Fair+ Abduction 4- Good- Adduction 4- Good- Knee Strength Knee Manual Muscle Testing Right Flexion (S2) 4 Good Extension (L3) 4 Good Left Flexion (S2) 4 Good Extension (L3) 4 Good Ankle/Foot Strength Ankle and Foot Manual Muscle Testing Right Dorsiflexion (L4) 3+ Fair+ Left Dorsiflexion (L4) 3+ Fair+ PT-OP-Q Treatments Start: 01/15/24 16:42 Freq: Status: Active Protocol: Document 03/24/24 13:48 SP (Rec: 03/24/24 14:35 SP [id number]) Cardio Equipment Recumbent Stepper (Sci-Fit) Duration (Minutes) 4 Resistance 3.0 Seat Position 10 Other BUE&BLEs, 47 RPMs, 0.71 ,miles Gym Equipment Shuttle Balance Red Details WBOS (4s), Staggered (4s) Comments stationary stance -CG/Min A, cued for wt shift into fwd even BLE WB, more upright posture, improved decrease UE support Neuro Re-Education Treatment Balance Activities Dynamic gait Comments fwd metronome 82-84 bpm /c SPC , cued stride, HTs every 2-4 steps near @ rail: tandem ambulation , retro ambulation, lateral stepping Hurdles Details Hurdles Equipment trialed SPC but to challenging > light 1 hand onrail Reps/Duration 10 ft 3 laps each Comments Forward, Lateral Tandem Details Tandem Ambulation Surface foam Equipment near rail Reps/Duration 27 sec R ft fwd, 30 sec L ft fwd Comments CGA Cued upright posture, wt shift fwd equad BLE WB PT-OP-T Assessment and Plan Start: 01/15/24 16:42 Freq: Status: Active Protocol: Document 03/24/24 13:48 SP (Rec: 03/24/24 14:35 SP [id number]) Physical Therapy Assessment Goals Three Impairment Pt completes a five times sit to stand test in 1:51.63 Short Term Goal (STG) Pt to complete her 5xStS test <60 seconds in order to demonstrate an improvement in activity tolerance. STG Duration Met Correction Goal (LTG) Pt to complete her 5xStS test <30 seconds without UE assistance in order to demonstrate an improvement in activity tolerance. LTG Duration 04/14/24 Two Impairment Pt presents as a high falls risk, per Yanez score (23/56) Short Term Goal (STG) Pt to demonstrate a decrease in falls risk by improving Yanez score by at least seven points, to 30/56 STG Duration Met Certified Dietary Manager Goal (LTG) Pt to demonstrate a decrease in falls risk by improving Yanez score by at least seven points, to 50/56 LTG Duration 04/14/24 One Impairment Pt does not have an appropriate home exercise program Short Term Goal (STG) Pt to be independent and compliant with an appropriate HEP 03/04/2024 Patient reports she is doing the seated hip with band exercise, but not the exercise that requires foot in cabinet under sink as it makes her unsteady and not sit to stand as she does that throughout the day. STG Duration 02/15/24 Assessment Summary Assessment Tx focused on increase stride and trunk wt shift into advanced LE during stance time on stationary leg with more upright posturing cues. Pt improved decreased UE support with intermittent cues wt shift fwd equal BLE WB stagger stance on shuttle balance and foam (27-30 sec) today. Improved stride during dynamic gait cues for increase stride approx 80-82bpm metronome use , was able to incorporate head turns every 4 steps. Pt challenged receiprocal dorota stepping with SPC, especially RLE stance time during LLE advancement. Physical Therapy Plan Frequency and Duration Frequency of Treatment 2x/Week Plan of Care Start Date 01/15/24 Plan of Care End Date 04/14/24 Therapeutic Interventions Therapeutic Interventions Balance Training,Coordination Training,Gait Training,Home Exercise Program,Joint Mobilizations,Manual Therapy, Neuromuscular Re-education, Patient/Caregiver Education, Self-Care/Home Management,Soft Tissue Mobilization, Therapeutic Activities, Therapeutic Exercises Modalities Cold Pack/Ice Massage,Electric Stimulation,Hot Packs Next Visit Focus/Plan Next Note Type Treatment Note Next Visit Plan Continue initiate LE ex, increase stride gait during gait, progressing balance activities. POC: LE strengthening, balance challenges, gait training, posture
--- NOTE | 2024-03-28 15:23 | PT-OP ANOTE ---
Pt called last min, lost her garage door operator, unable to make appt.
--- NOTE | 2024-03-31 14:29 | PT.OTN ---
Current Diagnoses Low back pain, unspecified (03/31/24) Muscle weakness (generalized) (03/31/24) Unsteadiness on feet (03/31/24) Physical Therapy Treatment Note PT-OP-A Visit Information Start: 01/15/24 16:42 Freq: Status: Active Protocol: Document 03/31/24 13:45 DCW (Rec: 03/31/24 14:29 DCW [id number]) Out-Patient Physical Therapy Visit Information Visit Information Visit Type Treatment Note Visit Start Time 13:45 Visit Stop Time 14:30 Visit Number 17 (11/09 PN) Number of BUNCHER HAND Visits 0 Evaluation Information Evaluation Date 01/15/24 PT-OP-B Current Condition Start: 01/15/24 16:42 Freq: Status: Active Protocol: Document 01/15/24 15:35 DCW (Rec: 01/15/24 17:44 DCW [id number]) Current Condition History of Current Condition Onset Date Multi-year history Current Complaints Low back pain, leg weakness, poor balance History of Current Condition Pt is an 88 year old female very well known to this clinic presenting with worsening low back pain, imbalance, leg weakness, and increased fear of falling. Pt notes she uses her 4WW around the house, which makes her feel more stable, but she cannot get the walker in or out of her car, so she relies on a SPC out in the community. 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 Pt unfortunately lost her earlier this year, and was also diagnosed with breast cancer, although she notes the cancer was excised recently and she believes it is mostly gone. Pt denies any falls, but feels that due to weakness in her legs and her inability to stand up straight, a fall is getting more likely. Low back pain is typically worse with lying supine in bed, bending over, or trying to flower buncher or picker something heavy. Treatment Goals Patient/Caregiver Goals Decrease risk of falls PT-OP-C Subjective Start: 01/15/24 16:42 Freq: Status: Active Protocol: Document 03/31/24 13:45 DCW (Rec: 03/31/24 14:29 DCW [id number]) OP-PT Subjective Patient Comments Patient Comments I feel like I have a whole train of woes. PT-OP-D Balance Start: 01/15/24 16:42 Freq: Status: Active Protocol: Document 03/04/24 13:22 AB (Rec: 03/04/24 15:48 AB [id number]) Balance Tests Yanez Balance Test Yanez Balance Test Score 34/56 Yanez Impairment Rating 20 to 39% Impaired (Score 34- 44) Yanez Balance Assessment Evaluation Sitting to Standing Ability Independent w/Hands Unsupported Stance Safely- 2 minutes Sitting Unsupported, Feet on Floor Safely- 2 minutes Standing to Sitting Ability Assist, Control w/Hands Transfer Ability Safely, Hand Use Unsupported Stance- Eyes Closed Safely, 10 seconds Unsupported Stance- Eyes Open Assist to attain, 15 secs Reaching Forward Standing Safely, 2 inches Pick- Up Object From Floor Supervision Look Behind Shoulder - Standing Shifts Weight Unilateral Turning 360 Degrees Turns slowly, but safely Unsupported Stance, Alternating Feet on 2 Steps w/Minimum Assist Stair Unsupported Tandem Stance Balance Lost- Step/Stand Unilateral Leg Stance Lifts Leg/Unable to Hold Total Score Yanez Total Score (out of 56 points) 34 Yanez Impairment Rating 20 to 39% Impaired (Score 34- 44) PT-OP-E Functional Tests Start: 01/15/24 16:42 Freq: Status: Active Protocol: Document 03/04/24 13:22 AB (Rec: 03/04/24 15:48 AB [id number]) Functional Tests Five Times Sit to Stand Test Score 23.72 seconds Comments with UE use hands on seat of webbed chair, unable without UE use PT-OP-J Posture/Palpation/Skin Start: 01/15/24 16:42 Freq: Status: Active Protocol: Document 01/15/24 15:35 DCW (Rec: 01/15/24 16:52 DCW [id number]) Posture Evaluation Comments Posture Comments Pt presents with severe scoliosis and worsening excessive kyphosis. PT-OP-M Strength Start: 01/15/24 16:42 Freq: Status: Active Protocol: Document 01/15/24 15:35 DCW (Rec: 01/15/24 16:52 DCW [id number]) Hip Strength Hip Manual Muscle Testing Right Flexion (L2) 3+ Fair+ Abduction 4- Good- Adduction 4- Good- Left Flexion (L2) 3+ Fair+ Abduction 4- Good- Adduction 4- Good- Knee Strength Knee Manual Muscle Testing Right Flexion (S2) 4 Good Extension (L3) 4 Good Left Flexion (S2) 4 Good Extension (L3) 4 Good Ankle/Foot Strength Ankle and Foot Manual Muscle Testing Right Dorsiflexion (L4) 3+ Fair+ Left Dorsiflexion (L4) 3+ Fair+ PT-OP-Q Treatments Start: 01/15/24 16:42 Freq: Status: Active Protocol: Document 03/31/24 13:45 DCW (Rec: 03/31/24 14:29 DCW [id number]) Gym Equipment Shuttle Balance Red Details WBOS, Staggered Therapeutic Exercises Other Exercises Toe Taps Other Exercise Name Toe-taps Side bilateral Resistance 5# leg wt Equipment Used 6 step Reps/Minutes 20 reps alternating Side-stepping Other Exercise Name Side-stepping Resistance Green Reps/Minutes @ rail Comments cues upright posture Neuro Re-Education Treatment Balance Activities SLS Details SLS Equipment // bars Hurdles Details Hurdles Equipment // bars Comments Forward, Lateral Foam Details Foam stance, EO/EC Surface AirEx PT-OP-T Assessment and Plan Start: 01/15/24 16:42 Freq: Status: Active Protocol: Document 03/31/24 13:45 DCW (Rec: 03/31/24 14:29 DCW [id number]) Physical Therapy Assessment Impairments Impairments Activity Tolerance,Balance, Functional Activities, Functional Mobility,Gait,Pain, Posture,Soft Tissue Mobility, Strength,Tone Goals Three Impairment Pt completes a five times sit to stand test in 1:51.63 Short Term Goal (STG) Pt to complete her 5xStS test <60 seconds in order to demonstrate an improvement in activity tolerance. STG Duration Met Fpc Goal (LTG) Pt to complete her 5xStS test <30 seconds without UE assistance in order to demonstrate an improvement in activity tolerance. LTG Duration 04/14/24 Two Impairment Pt presents as a high falls risk, per Yanez score (56) Short Term Goal (STG) Pt to demonstrate a decrease in falls risk by improving Yanez score by at least seven points, to 30/56 STG Duration Met Fpc Goal (LTG) Pt to demonstrate a decrease in falls risk by improving Yanez score by at least seven points, to 50/56 LTG Duration 04/14/24 One Impairment Pt does not have an appropriate home exercise program Short Term Goal (STG) Pt to be independent and compliant with an appropriate HEP 03/04/2024 Patient reports she is doing the seated hip with band exercise, but not the exercise that requires foot in cabinet under sink as it makes her unsteady and not sit to stand as she does that throughout the day. STG Duration 02/15/24 Assessment Summary Assessment Pt did well today, minimal rest breaks required. Good overall response to treatment. Physical Therapy Plan Frequency and Duration Frequency of Treatment 2x/Week Plan of Care Start Date 01/15/24 Plan of Care End Date 04/14/24 Therapeutic Interventions Therapeutic Interventions Balance Training,Coordination Training,Gait Training,Home Exercise Program,Joint Mobilizations,Manual Therapy, Neuromuscular Re-education, Patient/Caregiver Education, Self-Care/Home Management,Soft Tissue Mobilization, Therapeutic Activities, Therapeutic Exercises Modalities Cold Pack/Ice Massage,Electric Stimulation,Hot Packs Next Visit Focus/Plan Next Note Type Treatment Note Next Visit Plan Continue initiate LE ex, increase stride gait during gait, progressing balance activities. POC: LE strengthening, balance challenges, gait training, posture
--- NOTE | 2024-04-03 14:30 | PT.OTN ---
Current Diagnoses Low back pain, unspecified (04/03/24) Muscle weakness (generalized) (04/03/24) Unsteadiness on feet (04/03/24) Physical Therapy Treatment Note PT-OP-A Visit Information Start: 01/15/24 16:42 Freq: Status: Active Protocol: Document 04/03/24 13:55 SP (Rec: 04/03/24 14:35 SP [id number]) Out-Patient Physical Therapy Visit Information Visit Information Visit Type Treatment Note Visit Note Pt needed use bathroom when arrived, started late. Visit Start Time 13:55 Visit Stop Time 14:30 Visit Number 17 (12/10 PN) Number of HEALTH CENTER ASSOCIATE Visits 1 Evaluation Information Evaluation Date 01/15/24 PT-OP-B Current Condition Start: 01/15/24 16:42 Freq: Status: Active Protocol: Document 01/15/24 15:35 DCW (Rec: 01/15/24 17:44 DCW [id number]) Current Condition History of Current Condition Onset Date Multi-year history Current Complaints Low back pain, leg weakness, poor balance History of Current Condition Pt is an 88 year old female very well known to this clinic presenting with worsening low back pain, imbalance, leg weakness, and increased fear of falling. Pt notes she uses her 4WW around the house, which makes her feel more stable, but she cannot get the walker in or out of her car, so she relies on a SPC out in the community. 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 Pt unfortunately lost her earlier this year, and was also diagnosed with breast cancer, although she notes the cancer was excised recently and she believes it is mostly gone. Pt denies any falls, but feels that due to weakness in her legs and her inability to stand up straight, a fall is getting more likely. Low back pain is typically worse with lying supine in bed, bending over, or trying to picker and sorter load and unload something heavy. Treatment Goals Patient/Caregiver Goals Decrease risk of falls PT-OP-C Subjective Start: 01/15/24 16:42 Freq: Status: Active Protocol: Document 04/03/24 13:55 SP (Rec: 04/03/24 14:35 SP [id number]) OP-PT Subjective Patient Comments Patient Comments She reports PT-OP-D Balance Start: 01/15/24 16:42 Freq: Status: Active Protocol: Document 03/04/24 13:22 AB (Rec: 03/04/24 15:48 AB [id number]) Balance Tests Yanez Balance Test Yanez Balance Test Score 34/56 Yanez Impairment Rating 20 to 39% Impaired (Score 34- 44) Yanez Balance Assessment Evaluation Sitting to Standing Ability Independent w/Hands Unsupported Stance Safely- 2 minutes Sitting Unsupported, Feet on Floor Safely- 2 minutes Standing to Sitting Ability Assist, Control w/Hands Transfer Ability Safely, Hand Use Unsupported Stance- Eyes Closed Safely, 10 seconds Unsupported Stance- Eyes Open Assist to attain, 15 secs Reaching Forward Standing Safely, 2 inches Pick- Up Object From Floor Supervision Look Behind Shoulder - Standing Shifts Weight Unilateral Turning 360 Degrees Turns slowly, but safely Unsupported Stance, Alternating Feet on 2 Steps w/Minimum Assist Stair Unsupported Tandem Stance Balance Lost- Step/Stand Unilateral Leg Stance Lifts Leg/Unable to Hold Total Score Yanez Total Score (out of 56 points) 34 Yanez Impairment Rating 20 to 39% Impaired (Score 34- 44) PT-OP-E Functional Tests Start: 01/15/24 16:42 Freq: Status: Active Protocol: Document 03/04/24 13:22 AB (Rec: 03/04/24 15:48 AB [id number]) Functional Tests Five Times Sit to Stand Test Score 23.72 seconds Comments with UE use hands on seat of webbed chair, unable without UE use PT-OP-J Posture/Palpation/Skin Start: 01/15/24 16:42 Freq: Status: Active Protocol: Document 01/15/24 15:35 DCW (Rec: 01/15/24 16:52 DCW [id number]) Posture Evaluation Comments Posture Comments Pt presents with severe scoliosis and worsening excessive kyphosis. PT-OP-M Strength Start: 01/15/24 16:42 Freq: Status: Active Protocol: Document 01/15/24 15:35 DCW (Rec: 01/15/24 16:52 DCW [id number]) Hip Strength Hip Manual Muscle Testing Right Flexion (L2) 3+ Fair+ Abduction 4- Good- Adduction 4- Good- Left Flexion (L2) 3+ Fair+ Abduction 4- Good- Adduction 4- Good- Knee Strength Knee Manual Muscle Testing Right Flexion (S2) 4 Good Extension (L3) 4 Good Left Flexion (S2) 4 Good Extension (L3) 4 Good Ankle/Foot Strength Ankle and Foot Manual Muscle Testing Right Dorsiflexion (L4) 3+ Fair+ Left Dorsiflexion (L4) 3+ Fair+ PT-OP-Q Treatments Start: 01/15/24 16:42 Freq: Status: Active Protocol: Document 04/03/24 13:55 SP (Rec: 04/03/24 14:35 SP [id number]) Gym Equipment Shuttle Recovery bilateral squat Resistance 50 # 2 navy Reps/Time x20 Therapeutic Exercises Standing Exercises Heel Raises Standing Exercise Name Heel Raises Side bilateral Resistance 5# leg wt Equipment Used @ rail Reps/Minutes x15 Comments VC to lower heels to floor slowly Hamstring Curls Standing Exercise Name Hamstring Curls Side bilateral Resistance 5# leg wt Equipment Used @ rail Reps/Minutes x20 alternating Other Exercises Toe Taps Other Exercise Name Toe-taps Side bilateral Resistance 5# leg wt Equipment Used 6 step, light contact 1 rail> no rail lat 4 reps Reps/Minutes 20 reps alternating Comments cued posturing, increase height step up Side-stepping Other Exercise Name Retro & Side-stepping Resistance Green Reps/Minutes @ rail Comments cues upright posture, increase IVETTE Neuro Re-Education Treatment Balance Activities SLS Details SLS Equipment mary index finger Reps/Duration 10 SH x3 reps each LE Comments cued upight posturing Hurdles Details Forward, Lateral Equipment @ rail, 6 hurdles Tandem Details Semi/Tandem Ambulation Surface foam Equipment near rail Reps/Duration 7 sec R ft tandem fwd, 15 sec semi tandem L ft fwd Comments CGA Cued upright posture, wt shift fwd equad BLE WB PT-OP-T Assessment and Plan Start: 01/15/24 16:42 Freq: Status: Active Protocol: Document 04/03/24 13:55 SP (Rec: 04/03/24 14:35 SP [id number]) Physical Therapy Assessment Goals Three Impairment Pt completes a five times sit to stand test in 1:51.63 Short Term Goal (STG) Pt to complete her 5xStS test <60 seconds in order to demonstrate an improvement in activity tolerance. STG Duration Met [facility] Goal (LTG) Pt to complete her 5xStS test <30 seconds without UE assistance in order to demonstrate an improvement in activity tolerance. LTG Duration 04/14/24 Two Impairment Pt presents as a high falls risk, per Yanez score (/56) Short Term Goal (STG) Pt to demonstrate a decrease in falls risk by improving Yanez score by at least seven points, to 30/56 STG Duration Met [facility] Goal (LTG) Pt to demonstrate a decrease in falls risk by improving Yanez score by at least seven points, to 50/56 LTG Duration 04/14/24 One Impairment Pt does not have an appropriate home exercise program Short Term Goal (STG) Pt to be independent and compliant with an appropriate HEP 03/04/2024 Patient reports she is doing the seated hip with band exercise, but not the exercise that requires foot in cabinet under sink as it makes her unsteady and not sit to stand as she does that throughout the day. STG Duration 02/15/24 Assessment Summary Assessment Pt little late starting due to need use restroom when arrived. Good effort, cues for upright posturing was able to decreased to 1 UE support during balance activities and 1 finger each hand during SLS time improved self posture corrections. Pt required 2 seated rest breaks with hydration support. Educational cues increased stride during to/from waiting room. Physical Therapy Plan Frequency and Duration Frequency of Treatment 2x/Week Plan of Care Start Date 01/15/24 Plan of Care End Date 04/14/24 Therapeutic Interventions Therapeutic Interventions Balance Training,Coordination Training,Gait Training,Home Exercise Program,Joint Mobilizations,Manual Therapy, Neuromuscular Re-education, Patient/Caregiver Education, Self-Care/Home Management,Soft Tissue Mobilization, Therapeutic Activities, Therapeutic Exercises Modalities Cold Pack/Ice Massage,Electric Stimulation,Hot Packs Next Visit Focus/Plan Next Note Type Treatment Note Next Visit Plan Continue initiate LE ex, increase stride gait during gait, progressing balance activities. POC: LE strengthening, balance challenges, gait training, posture
--- NOTE | 2024-04-07 14:31 | PT.OTN ---
Current Diagnoses Low back pain, unspecified (04/07/24) Muscle weakness (generalized) (04/07/24) Unsteadiness on feet (04/07/24) Physical Therapy Treatment Note PT-OP-A Visit Information Start: 01/15/24 16:42 Freq: Status: Active Protocol: Document 04/07/24 13:51 DCW (Rec: 04/07/24 14:31 DCW [id number]) Out-Patient Physical Therapy Visit Information Visit Information Visit Type Progress Note Visit Start Time 13:51 Visit Stop Time 14:30 Visit Number 19 Number of ANIMAL WARDEN Visits 0 PT-OP-B Current Condition Start: 01/15/24 16:42 Freq: Status: Active Protocol: Document 01/15/24 15:35 DCW (Rec: 01/15/24 17:44 DCW [id number]) Current Condition History of Current Condition Onset Date Multi-year history Current Complaints Low back pain, leg weakness, poor balance History of Current Condition Pt is an 88 year old female very well known to this clinic presenting with worsening low back pain, imbalance, leg weakness, and increased fear of falling. Pt notes she uses her 4WW around the house, which makes her feel more stable, but she cannot get the walker in or out of her car, so she relies on a SPC out in the community. 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 Pt unfortunately lost her earlier this year, and was also diagnosed with breast cancer, although she notes the cancer was excised recently and she believes it is mostly gone. Pt denies any falls, but feels that due to weakness in her legs and her inability to stand up straight, a fall is getting more likely. Low back pain is typically worse with lying supine in bed, bending over, or trying to fruit picker something heavy. Treatment Goals Patient/Caregiver Goals Decrease risk of falls PT-OP-C Subjective Start: 01/15/24 16:42 Freq: Status: Active Protocol: Document 04/07/24 13:51 DCW (Rec: 04/07/24 14:31 DCW [id number]) OP-PT Subjective Patient Comments Patient Comments Pt feeling fairly good overall , noting that her balance seems to have improved. I'm still glad that I have the pole by the bed, though. PT-OP-D Balance Start: 01/15/24 16:42 Freq: Status: Active Protocol: Document 04/07/24 13:51 DCW (Rec: 04/07/24 14:09 [facility] [id number]) Balance Tests Yanez Balance Test Yanez Balance Test Score 37/56 Yanez Impairment Rating 20 to 39% Impaired (Score 34- 44) Yanez Balance Assessment Evaluation Sitting to Standing Ability Independent w/Hands Unsupported Stance Safely- 2 minutes Sitting Unsupported, Feet on Floor Safely- 2 minutes Standing to Sitting Ability Assist, Control w/Hands Transfer Ability Safely, Hand Use Unsupported Stance- Eyes Closed Safely, 10 seconds Unsupported Stance- Eyes Open Independent, <30 seconds Reaching Forward Standing Safely, 5 inches Pick- Up Object From Floor Supervision Look Behind Shoulder - Standing Shifts Weight Unilateral Turning 360 Degrees Turns slowly, but safely Unsupported Stance, Alternating Feet on 2 Steps w/Minimum Assist Stair Unsupported Tandem Stance Assist to Step-15 seconds Unilateral Leg Stance Lifts Leg/Unable to Hold Total Score Yanez Total Score (out of 56 points) 37 Yanez Impairment Rating 20 to 39% Impaired (Score 34- 44) PT-OP-E Functional Tests Start: 01/15/24 16:42 Freq: Status: Active Protocol: Document 04/07/24 13:51 DCW (Rec: 04/07/24 14:09 [facility] [id number]) Functional Tests Five Times Sit to Stand Test Score 14.03 Comments with UE use hands on seat of webbed chair, unable without UE use PT-OP-J Posture/Palpation/Skin Start: 01/15/24 16:42 Freq: Status: Active Protocol: Document 04/07/24 13:51 DCW (Rec: 04/07/24 14:09 [facility] [id number]) Posture Evaluation Comments Posture Comments Pt presents with severe scoliosis and worsening excessive kyphosis. PT-OP-M Strength Start: 01/15/24 16:42 Freq: Status: Active Protocol: Document 04/07/24 13:51 DCW (Rec: 04/07/24 14:09 [facility] [id number]) Hip Strength Hip Manual Muscle Testing Right Flexion (L2) 4- Good- Abduction 4 Good Adduction 4 Good Left Flexion (L2) 4- Good- Abduction 4 Good Adduction 4 Good Knee Strength Knee Manual Muscle Testing Right Flexion (S2) 4 Good Extension (L3) 4+ Good+ Left Flexion (S2) 4 Good Extension (L3) 4+ Good+ Ankle/Foot Strength Ankle and Foot Manual Muscle Testing Right Dorsiflexion (L4) 4- Good- Left Dorsiflexion (L4) 4- Good- PT-OP-Q Treatments Start: 01/15/24 16:42 Freq: Status: Active Protocol: Document 04/07/24 13:51 DCW (Rec: 04/07/24 14:31 DCW [id number]) Gym Equipment Shuttle Balance Red Details WBOS, Staggered Neuro Re-Education Treatment Balance Activities Hurdles Details Hurdles Equipment // bars Comments Forward, Lateral Foam Details Foam stance, EO/EC Surface AirEx PT-OP-T Assessment and Plan Start: 01/15/24 16:42 Freq: Status: Active Protocol: Document 04/07/24 13:51 DCW (Rec: 04/07/24 14:31 DCW [id number]) Physical Therapy Assessment Impairments Impairments Activity Tolerance,Balance, Functional Activities, Functional Mobility,Gait,Pain, Posture,Soft Tissue Mobility, Strength,Tone Goals Three Impairment Pt completes a five times sit to stand test in 1:51.63 Short Term Goal (STG) Pt to complete her 5xStS test <60 seconds in order to demonstrate an improvement in activity tolerance. STG Duration Met Chcf Goal (LTG) Pt to complete her 5xStS test <30 seconds without UE assistance in order to demonstrate an improvement in activity tolerance. LTG Duration 06/05/24 Two Impairment Pt presents as a high falls risk, per Yanez score (23/56) Short Term Goal (STG) Pt to demonstrate a decrease in falls risk by improving Yanez score by at least seven points, to 30/56 STG Duration Met Sheep Or Calf Grader Goal (LTG) Pt to demonstrate a decrease in falls risk by improving Yanez score by at least seven points, to 50/56 LTG Duration 06/05/24 One Impairment Pt does not have an appropriate home exercise program Short Term Goal (STG) Pt to be independent and compliant with an appropriate HEP 03/04/2024 Patient reports she is doing the seated hip with band exercise, but not the exercise that requires foot in cabinet under sink as it makes her unsteady and not sit to stand as she does that throughout the day. STG Duration 05/08/24 Progress Towards Goals Progress Towards Goals Progressing Toward Goals Assessment Summary Assessment Pt showing some good progress overall. Since initial evaluation, 5xStS has improved from 1:51.63 to 14.03. Yanez has also significantly improved since eval, from to 37. Continue to focus on pt LE strength, balance challenges, activity tolerance , and posture. Physical Therapy Plan Frequency and Duration Frequency of Treatment 2x/Week Plan of Care Start Date 04/07/24 Plan of Care End Date 06/05/24 Therapeutic Interventions Therapeutic Interventions Balance Training,Coordination Training,Gait Training,Home Exercise Program,Joint Mobilizations,Manual Therapy, Neuromuscular Re-education, Patient/Caregiver Education, Self-Care/Home Management,Soft Tissue Mobilization, Therapeutic Activities, Therapeutic Exercises Modalities Cold Pack/Ice Massage,Electric Stimulation,Hot Packs Next Visit Focus/Plan Next Note Type Treatment Note Next Visit Plan Continue initiate LE ex, increase stride gait during gait, progressing balance activities. POC: LE strengthening, balance challenges, gait training, posture
--- NOTE | 2024-04-07 14:32 | PT.OPPOC ---
Physical, Occupational & Speech Therapy At [facility] Current Diagnoses Low back pain, unspecified (04/07/24) Muscle weakness (generalized) (04/07/24) Unsteadiness on feet (04/07/24) Visit Care Team Role Provider Type Jia Sheridan MD Attending Provider Physician Family Provider Primary Care Provider Referring Provider Specialty: Family Practice Address: [address] [place] [address], [facility] [place], [facility] Email: [email or web address] Plan Of Care PT-OP-B Current Condition Start: 01/15/24 16:42 Freq: Status: Active Protocol: Document 01/15/24 15:35 DCW (Rec: 01/15/24 17:44 DCW [id number]) Current Condition History of Current Condition Onset Date Multi-year history Current Complaints Low back pain, leg weakness, poor balance History of Current Condition Pt is an 88 year old female very well known to this clinic presenting with worsening low back pain, imbalance, leg weakness, and increased fear of falling. Pt notes she uses her 4WW around the house, which makes her feel more stable, but she cannot get the walker in or out of her car, so she relies on a SPC out in the community. 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 Pt unfortunately lost her earlier this year, and was also diagnosed with breast cancer, although she notes the cancer was excised recently and she believes it is mostly gone. Pt denies any falls, but feels that due to weakness in her legs and her inability to stand up straight, a fall is getting more likely. Low back pain is typically worse with lying supine in bed, bending over, or trying to pick up man something heavy. Treatment Goals Patient/Caregiver Goals Decrease risk of falls PT-OP-T Assessment and Plan Start: 01/15/24 16:42 Freq: Status: Active Protocol: Document 04/07/24 13:51 DCW (Rec: 04/07/24 14:31 DCW [id number]) Physical Therapy Assessment Impairments Impairments Activity Tolerance,Balance, Functional Activities, Functional Mobility,Gait,Pain, Posture,Soft Tissue Mobility, Strength,Tone Goals Three Impairment Pt completes a five times sit to stand test in 1:51.63 Short Term Goal (STG) Pt to complete her 5xStS test <60 seconds in order to demonstrate an improvement in activity tolerance. STG Duration Met Shelter Goal (LTG) Pt to complete her 5xStS test <30 seconds without UE assistance in order to demonstrate an improvement in activity tolerance. LTG Duration 06/05/24 Two Impairment Pt presents as a high falls risk, per Yanez score () Short Term Goal (STG) Pt to demonstrate a decrease in falls risk by improving Yanez score by at least seven points, to 30/56 STG Duration Met Anchor Operator Goal (LTG) Pt to demonstrate a decrease in falls risk by improving Yanez score by at least seven points, to 50/ LTG Duration 06/05/24 One Impairment Pt does not have an appropriate home exercise program Short Term Goal (STG) Pt to be independent and compliant with an appropriate HEP 03/04/2024 Patient reports she is doing the seated hip with band exercise, but not the exercise that requires foot in cabinet under sink as it makes her unsteady and not sit to stand as she does that throughout the day. STG Duration 05/08/24 Progress Towards Goals Progress Towards Goals Progressing Toward Goals Assessment Summary Assessment Pt showing some good progress overall. Since initial evaluation, 5xStS has improved from 1:51.63 to 14.03. Yanez has also significantly improved since eval, from 23/ 56 to 37/56. Continue to focus on pt LE strength, balance challenges, activity tolerance , and posture. Physical Therapy Plan Frequency and Duration Frequency of Treatment 2x/Week Plan of Care Start Date 04/07/24 Plan of Care End Date 06/05/24 Therapeutic Interventions Therapeutic Interventions Balance Training,Coordination Training,Gait Training,Home Exercise Program,Joint Mobilizations,Manual Therapy, Neuromuscular Re-education, Patient/Caregiver Education, Self-Care/Home Management,Soft Tissue Mobilization, Therapeutic Activities, Therapeutic Exercises Modalities Cold Pack/Ice Massage,Electric Stimulation,Hot Packs Next Visit Focus/Plan Next Note Type Treatment Note Next Visit Plan Continue initiate LE ex, increase stride gait during gait, progressing balance activities. POC: LE strengthening, balance challenges, gait training, posture Plan of Care Dates Plan of Care Start Date 04/07/24 Plan of Care End Date 06/05/24 Electronically Signed by: Wallace Wilson, PT 04/07/24 [id number] If you are in agreement with this Plan of Care, please return a signed and dated copy. I have reviewed this Plan of Care and certify that the skilled therapy services above are required to meet the patient?s needs. Physician Signature Date Printed Name and Credentials Clinical Instructor Signature Printed Name and Credentials
--- NOTE | 2024-04-10 14:40 | PT.OTN ---
Current Diagnoses Low back pain, unspecified (04/10/24) Muscle weakness (generalized) (04/10/24) Unsteadiness on feet (04/10/24) Physical Therapy Treatment Note PT-OP-A Visit Information Start: 01/15/24 16:42 Freq: Status: Active Protocol: Document 04/10/24 13:48 AB (Rec: 04/10/24 14:40 AB [id number]) Out-Patient Physical Therapy Visit Information Visit Information Visit Type Treatment Note Visit Start Time 13:48 Visit Stop Time 14:32 Visit Number 19 Number of ADOPTION COORDINATOR Visits 1 Evaluation Information Evaluation Date 01/15/24 PT-OP-B Current Condition Start: 01/15/24 16:42 Freq: Status: Active Protocol: Document 01/15/24 15:35 DCW (Rec: 01/15/24 17:44 DCW [id number]) Current Condition History of Current Condition Onset Date Multi-year history Current Complaints Low back pain, leg weakness, poor balance History of Current Condition Pt is an 88 year old female very well known to this clinic presenting with worsening low back pain, imbalance, leg weakness, and increased fear of falling. Pt notes she uses her 4WW around the house, which makes her feel more stable, but she cannot get the walker in or out of her car, so she relies on a SPC out in the community. 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 Pt unfortunately lost her earlier this year, and was also diagnosed with breast cancer, although she notes the cancer was excised recently and she believes it is mostly gone. Pt denies any falls, but feels that due to weakness in her legs and her inability to stand up straight, a fall is getting more likely. 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 Treatment Goals Patient/Caregiver Goals Decrease risk of falls PT-OP-C Subjective Start: 01/15/24 16:42 Freq: Status: Active Protocol: Document 04/10/24 13:48 AB (Rec: 04/10/24 14:40 AB [id number]) OP-PT Subjective Patient Comments Patient Comments Patient reports performing HEp 5 X a week, and reports having no falls, continues to use 4 wheeled walker at [facility]. PT-OP-D Balance Start: 01/15/24 16:42 Freq: Status: Active Protocol: Document 04/07/24 13:51 DCW (Rec: 04/07/24 14:09 [facility] [id number]) Balance Tests Yanez Balance Test Yanez Balance Test Score 37/56 Yanez Impairment Rating 20 to 39% Impaired (Score 34- 44) Yanez Balance Assessment Evaluation Sitting to Standing Ability Independent w/Hands Unsupported Stance Safely- 2 minutes Sitting Unsupported, Feet on Floor Safely- 2 minutes Standing to Sitting Ability Assist, Control w/Hands Transfer Ability Safely, Hand Use Unsupported Stance- Eyes Closed Safely, 10 seconds Unsupported Stance- Eyes Open Independent, <30 seconds Reaching Forward Standing Safely, 5 inches Pick- Up Object From Floor Supervision Look Behind Shoulder - Standing Shifts Weight Unilateral Turning 360 Degrees Turns slowly, but safely Unsupported Stance, Alternating Feet on 2 Steps w/Minimum Assist Stair Unsupported Tandem Stance Assist to Step-15 seconds Unilateral Leg Stance Lifts Leg/Unable to Hold Total Score Yanez Total Score (out of 56 points) 37 Yanez Impairment Rating 20 to 39% Impaired (Score 34- 44) PT-OP-E Functional Tests Start: 01/15/24 16:42 Freq: Status: Active Protocol: Document 04/07/24 13:51 DCW (Rec: 04/07/24 14:09 [facility] [id number]) Functional Tests Five Times Sit to Stand Test Score 14.03 Comments with UE use hands on seat of webbed chair, unable without UE use PT-OP-J Posture/Palpation/Skin Start: 01/15/24 16:42 Freq: Status: Active Protocol: Document 04/07/24 13:51 DCW (Rec: 04/07/24 14:09 [facility] [id number]) Posture Evaluation Comments Posture Comments Pt presents with severe scoliosis and worsening excessive kyphosis. PT-OP-M Strength Start: 01/15/24 16:42 Freq: Status: Active Protocol: Document 04/07/24 13:51 DCW (Rec: 04/07/24 14:09 [facility] [id number]) Hip Strength Hip Manual Muscle Testing Right Flexion (L2) 4- Good- Abduction 4 Good Adduction 4 Good Left Flexion (L2) 4- Good- Abduction 4 Good Adduction 4 Good Knee Strength Knee Manual Muscle Testing Right Flexion (S2) 4 Good Extension (L3) 4+ Good+ Left Flexion (S2) 4 Good Extension (L3) 4+ Good+ Ankle/Foot Strength Ankle and Foot Manual Muscle Testing Right Dorsiflexion (L4) 4- Good- Left Dorsiflexion (L4) 4- Good- PT-OP-Q Treatments Start: 01/15/24 16:42 Freq: Status: Active Protocol: Document 04/10/24 13:48 AB (Rec: 04/10/24 14:40 AB [id number]) Therapeutic Exercises Sitting Exercises Hip adduction Sitting Exercise Name ball squeeze Side bilateral Equipment Used blue/white ball Reps/Minutes 10x5 Comments cues for breath DL Iso press Sitting Exercise Name hands pressing into thighs Equipment Used standard mesh chair Reps/Minutes 10 x Comments pain-free LAQ Sitting Exercise Name LAQ- added to HEP /c HO Side bilateral Resistance TB #2 over ankle, under opp foot- ed use tongs help on/off ankles Equipment Used standard mesh chair Reps/Minutes x10 each LE Comments verbal cues to fully extend knee seated hip abd with band Sitting Exercise Name HEP review Side bilateral Resistance 4# dark blue around thighs Reps/Minutes one min hold for activation then X15 reps without hold Comments verbal cues for elongated sitting posture Standing Exercises stepping with band Standing Exercise Name side stepping, retro stepping Resistance level 2 band Reps/Minutes 10 feet X 2 left and right, 10 feet retro X 4 Comments with UE support and CGA Neuro Re-Education Treatment Balance Activities tilt board Details for balancing board Reps/Duration 1-2 min Comments CGA initiates hands above bars, VC for posture step up taps Details CGA Equipment 2 inch block Reps/Duration X10 Comments Increased use of bars, initiates ~ half of reps without UE SLS Details SLS on and off foam Reps/Duration 2 min Comments CGA without UE use Hurdles Details Hurdles Equipment // bars Reps/Duration 10fet/6 hurdles Comments Forward, X4 Lateral X 2 CGA/increased UE use Foam Details Foam Romberg, EO/EC Surface AirEx Reps/Duration initaites with hands above bars CGA 1-2 min PT-OP-T Assessment and Plan Start: 01/15/24 16:42 Freq: Status: Active Protocol: Document 04/10/24 13:48 AB (Rec: 04/10/24 14:40 AB [id number]) Physical Therapy Assessment Goals Three Impairment Pt completes a five times sit to stand test in 1:51.63 Short Term Goal (STG) Pt to complete her 5xStS test <60 seconds in order to demonstrate an improvement in activity tolerance. STG Duration Met International Operations Manager Goal (LTG) Pt to complete her 5xStS test <30 seconds without UE assistance in order to demonstrate an improvement in activity tolerance. LTG Duration 06/05/24 Two Impairment Pt presents as a high falls risk, per Yanez score (56) Short Term Goal (STG) Pt to demonstrate a decrease in falls risk by improving Yanez score by at least seven points, to 30/56 STG Duration Met International Operations Manager Goal (LTG) Pt to demonstrate a decrease in falls risk by improving Yanez score by at least seven points, to 5056 LTG Duration 06/05/24 One Impairment Pt does not have an appropriate home exercise program Short Term Goal (STG) Pt to be independent and compliant with an appropriate HEP 03/04/2024 Patient reports she is doing the seated hip with band exercise, but not the exercise that requires foot in cabinet under sink as it makes her unsteady and not sit to stand as she does that throughout the day. STG Duration 05/08/24 Assessment Summary Assessment Continues to require increased UE use with hurdles, step up taps, tilt board, but very motivated and initiates many trials, with hands above bars . Stacey reports hip is sore, but no more than prior to session, shoulders 5/10 pain, which weren't painful start of session, but comments she does get injections for her shoulders. Physical Therapy Plan Frequency and Duration Frequency of Treatment 2x/Week Plan of Care Start Date 04/07/24 Plan of Care End Date 06/05/24 Next Visit Focus/Plan Next Note Type Treatment Note Next Visit Plan Continue initiate LE ex, increase stride gait during gait, progressing balance activities. POC: LE strengthening, balance challenges, gait training, posture
--- NOTE | 2024-04-14 14:31 | PT.OTN ---
Current Diagnoses Low back pain, unspecified (04/14/24) Muscle weakness (generalized) (04/14/24) Unsteadiness on feet (04/14/24) Physical Therapy Treatment Note PT-OP-A Visit Information Start: 01/15/24 16:42 Freq: Status: Active Protocol: Document 04/14/24 13:50 DCW (Rec: 04/14/24 14:30 DCW [id number]) Out-Patient Physical Therapy Visit Information Visit Information Visit Type Treatment Note Visit Start Time 13:50 Visit Stop Time 14:32 Visit Number 21 Number of REFRIGERATOR MOVER Visits 0 Evaluation Information Evaluation Date 01/15/24 PT-OP-B Current Condition Start: 01/15/24 16:42 Freq: Status: Active Protocol: Document 01/15/24 15:35 DCW (Rec: 01/15/24 17:44 DCW [id number]) Current Condition History of Current Condition Onset Date Multi-year history Current Complaints Low back pain, leg weakness, poor balance History of Current Condition Pt is an 88 year old female very well known to this clinic presenting with worsening low back pain, imbalance, leg weakness, and increased fear of falling. Pt notes she uses her 4WW around the house, which makes her feel more stable, but she cannot get the walker in or out of her car, so she relies on a SPC out in the community. 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 Pt unfortunately lost her earlier this year, and was also diagnosed with breast cancer, although she notes the cancer was excised recently and she believes it is mostly gone. Pt denies any falls, but feels that due to weakness in her legs and her inability to stand up straight, a fall is getting more likely. Low back pain is typically worse with lying supine in bed, bending over, or trying to brain picker something heavy. Treatment Goals Patient/Caregiver Goals Decrease risk of falls PT-OP-C Subjective Start: 01/15/24 16:42 Freq: Status: Active Protocol: Document 04/14/24 13:50 DCW (Rec: 04/14/24 14:30 DCW [id number]) OP-PT Subjective Patient Comments Patient Comments My back is really killing me today. PT-OP-D Balance Start: 01/15/24 16:42 Freq: Status: Active Protocol: Document 04/07/24 13:51 DCW (Rec: 04/07/24 14:09 [facility] [id number]) Balance Tests Yanez Balance Test Yanez Balance Test Score 37/56 Yanez Impairment Rating 20 to 39% Impaired (Score 34- 44) Yanez Balance Assessment Evaluation Sitting to Standing Ability Independent w/Hands Unsupported Stance Safely- 2 minutes Sitting Unsupported, Feet on Floor Safely- 2 minutes Standing to Sitting Ability Assist, Control w/Hands Transfer Ability Safely, Hand Use Unsupported Stance- Eyes Closed Safely, 10 seconds Unsupported Stance- Eyes Open Independent, <30 seconds Reaching Forward Standing Safely, 5 inches Pick- Up Object From Floor Supervision Look Behind Shoulder - Standing Shifts Weight Unilateral Turning 360 Degrees Turns slowly, but safely Unsupported Stance, Alternating Feet on 2 Steps w/Minimum Assist Stair Unsupported Tandem Stance Assist to Step-15 seconds Unilateral Leg Stance Lifts Leg/Unable to Hold Total Score Yanez Total Score (out of 56 points) 37 Yanez Impairment Rating 20 to 39% Impaired (Score 34- 44) PT-OP-E Functional Tests Start: 01/15/24 16:42 Freq: Status: Active Protocol: Document 04/07/24 13:51 DCW (Rec: 04/07/24 14:09 [facility] [id number]) Functional Tests Five Times Sit to Stand Test Score 14.03 Comments with UE use hands on seat of webbed chair, unable without UE use PT-OP-J Posture/Palpation/Skin Start: 01/15/24 16:42 Freq: Status: Active Protocol: Document 04/07/24 13:51 DCW (Rec: 04/07/24 14:09 [facility] [id number]) Posture Evaluation Comments Posture Comments Pt presents with severe scoliosis and worsening excessive kyphosis. PT-OP-M Strength Start: 01/15/24 16:42 Freq: Status: Active Protocol: Document 04/07/24 13:51 DCW (Rec: 04/07/24 14:09 [facility] [id number]) Hip Strength Hip Manual Muscle Testing Right Flexion (L2) 4- Good- Abduction 4 Good Adduction 4 Good Left Flexion (L2) 4- Good- Abduction 4 Good Adduction 4 Good Knee Strength Knee Manual Muscle Testing Right Flexion (S2) 4 Good Extension (L3) 4+ Good+ Left Flexion (S2) 4 Good Extension (L3) 4+ Good+ Ankle/Foot Strength Ankle and Foot Manual Muscle Testing Right Dorsiflexion (L4) 4- Good- Left Dorsiflexion (L4) 4- Good- PT-OP-Q Treatments Start: 01/15/24 16:42 Freq: Status: Active Protocol: Document 04/14/24 13:50 DCW (Rec: 04/14/24 14:30 DCW [id number]) Gym Equipment Shuttle Balance Red Details WBOS, Staggered Therapeutic Exercises Sitting Exercises LAQ Sitting Exercise Name LAQ- added to HEP /c HO Side bilateral Resistance 2# Equipment Used standard mesh chair Reps/Minutes x10 each LE Comments verbal cues to fully extend knee Standing Exercises Hamstring Curls Standing Exercise Name Hamstring Curls Side bilateral Resistance 3# leg wt Equipment Used // bars Neuro Re-Education Treatment Balance Activities step up taps Details CGA Equipment 4 Reps/Duration x10 Comments Increased use of bars, initiates ~ half of reps without UE SLS Details SLS Equipment // bars retro stepping Details Retro ambulation Equipment // bars Hurdles Details Hurdles Equipment // bars Reps/Duration 6 hurdles Comments Forward, x4 Lateral x2 CGA/increased UE use Foam Details Foam stance, EO/EC Surface AirEx Tandem Details Tandem Ambulation Equipment // bars PT-OP-T Assessment and Plan Start: 01/15/24 16:42 Freq: Status: Active Protocol: Document 04/14/24 13:50 DCW (Rec: 04/14/24 14:30 DCW [id number]) Physical Therapy Assessment Impairments Impairments Activity Tolerance,Balance, Functional Activities, Functional Mobility,Gait,Pain, Posture,Soft Tissue Mobility, Strength,Tone Goals Three Impairment Pt completes a five times sit to stand test in 1:51.63 Short Term Goal (STG) Pt to complete her 5xStS test <60 seconds in order to demonstrate an improvement in activity tolerance. STG Duration Met Halfway Goal (LTG) Pt to complete her 5xStS test <30 seconds without UE assistance in order to demonstrate an improvement in activity tolerance. LTG Duration 06/05/24 Two Impairment Pt presents as a high falls risk, per Yanez score (23/56) Short Term Goal (STG) Pt to demonstrate a decrease in falls risk by improving Yanez score by at least seven points, to 30/56 STG Duration Met Halfway Goal (LTG) Pt to demonstrate a decrease in falls risk by improving Yanez score by at least seven points, to 50/56 LTG Duration 06/05/24 One Impairment Pt does not have an appropriate home exercise program Short Term Goal (STG) Pt to be independent and compliant with an appropriate HEP 03/04/2024 Patient reports she is doing the seated hip with band exercise, but not the exercise that requires foot in cabinet under sink as it makes her unsteady and not sit to stand as she does that throughout the day. STG Duration 05/08/24 Assessment Summary Assessment Pt tolerated treatment well today, noting improvement in overall balance/stability. Continue to focus on static/ dynamic balance and LE strength. Physical Therapy Plan Frequency and Duration Frequency of Treatment 2x/Week Plan of Care Start Date 04/07/24 Plan of Care End Date 06/05/24 Therapeutic Interventions Therapeutic Interventions Balance Training,Coordination Training,Gait Training,Home Exercise Program,Joint Mobilizations,Manual Therapy, Neuromuscular Re-education, Patient/Caregiver Education, Self-Care/Home Management,Soft Tissue Mobilization, Therapeutic Activities, Therapeutic Exercises Modalities Cold Pack/Ice Massage,Electric Stimulation,Hot Packs Next Visit Focus/Plan Next Note Type Treatment Note Next Visit Plan Continue initiate LE ex, increase stride gait during gait, progressing balance activities. POC: LE strengthening, balance challenges, gait training, posture
--- NOTE | 2024-04-17 14:31 | PT.OTN ---
Current Diagnoses Low back pain, unspecified (04/17/24) Muscle weakness (generalized) (04/17/24) Unsteadiness on feet (04/17/24) Physical Therapy Treatment Note PT-OP-A Visit Information Start: 01/15/24 16:42 Freq: Status: Active Protocol: Document 04/17/24 13:48 SP (Rec: 04/17/24 14:31 SP [id number]) Out-Patient Physical Therapy Visit Information Visit Information Visit Type Treatment Note Visit Start Time 13:51 Visit Stop Time 14:31 Visit Number 24 ([id number] with PN) Number of CASCARA BARK CUTTER Visits 1 Evaluation Information Evaluation Date 01/15/24 PT-OP-B Current Condition Start: 01/15/24 16:42 Freq: Status: Active Protocol: Document 01/15/24 15:35 DCW (Rec: 01/15/24 17:44 DCW [id number]) Current Condition History of Current Condition Onset Date Multi-year history Current Complaints Low back pain, leg weakness, poor balance History of Current Condition Pt is an 88 year old female very well known to this clinic presenting with worsening low back pain, imbalance, leg weakness, and increased fear of falling. Pt notes she uses her 4WW around the house, which makes her feel more stable, but she cannot get the walker in or out of her car, so she relies on a SPC out in the community. 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 Pt unfortunately lost her earlier this year, and was also diagnosed with breast cancer, although she notes the cancer was excised recently and she believes it is mostly gone. Pt denies any falls, but feels that due to weakness in her legs and her inability to stand up straight, a fall is getting more likely. Low back pain is typically worse with lying supine in bed, bending over, or trying to pick up attendant something heavy. Treatment Goals Patient/Caregiver Goals Decrease risk of falls PT-OP-C Subjective Start: 01/15/24 16:42 Freq: Status: Active Protocol: Document 04/17/24 13:48 SP (Rec: 04/17/24 14:31 SP [id number]) OP-PT Subjective Patient Comments Patient Comments Pt 6 min late including needed use bathroom upon arrival . She saw yesterday for urine frequency and not emptying in bladder, has UTI. PT-OP-D Balance Start: 01/15/24 16:42 Freq: Status: Active Protocol: Document 04/07/24 13:51 DCW (Rec: 04/07/24 14:09 DC [id number]) Balance Tests Yanez Balance Test Yanez Balance Test Score 37/56 Yanez Impairment Rating 20 to 39% Impaired (Score 34- 44) Yanez Balance Assessment Evaluation Sitting to Standing Ability Independent w/Hands Unsupported Stance Safely- 2 minutes Sitting Unsupported, Feet on Floor Safely- 2 minutes Standing to Sitting Ability Assist, Control w/Hands Transfer Ability Safely, Hand Use Unsupported Stance- Eyes Closed Safely, 10 seconds Unsupported Stance- Eyes Open Independent, <30 seconds Reaching Forward Standing Safely, 5 inches Pick- Up Object From Floor Supervision Look Behind Shoulder - Standing Shifts Weight Unilateral Turning 360 Degrees Turns slowly, but safely Unsupported Stance, Alternating Feet on 2 Steps w/Minimum Assist Stair Unsupported Tandem Stance Assist to Step-15 seconds Unilateral Leg Stance Lifts Leg/Unable to Hold Total Score Yanez Total Score (out of 56 points) 37 Yanez Impairment Rating 20 to 39% Impaired (Score 34- 44) PT-OP-E Functional Tests Start: 01/15/24 16:42 Freq: Status: Active Protocol: Document 04/07/24 13:51 DCW (Rec: 04/07/24 14:09 [facility] [id number]) Functional Tests Five Times Sit to Stand Test Score 14.03 Comments with UE use hands on seat of webbed chair, unable without UE use PT-OP-J Posture/Palpation/Skin Start: 01/15/24 16:42 Freq: Status: Active Protocol: Document 04/07/24 13:51 DCW (Rec: 04/07/24 14:09 [facility] [id number]) Posture Evaluation Comments Posture Comments Pt presents with severe scoliosis and worsening excessive kyphosis. PT-OP-M Strength Start: 01/15/24 16:42 Freq: Status: Active Protocol: Document 04/07/24 13:51 DCW (Rec: 04/07/24 14:09 DCW [id number]) Hip Strength Hip Manual Muscle Testing Right Flexion (L2) 4- Good- Abduction 4 Good Adduction 4 Good Left Flexion (L2) 4- Good- Abduction 4 Good Adduction 4 Good Knee Strength Knee Manual Muscle Testing Right Flexion (S2) 4 Good Extension (L3) 4+ Good+ Left Flexion (S2) 4 Good Extension (L3) 4+ Good+ Ankle/Foot Strength Ankle and Foot Manual Muscle Testing Right Dorsiflexion (L4) 4- Good- Left Dorsiflexion (L4) 4- Good- PT-OP-Q Treatments Start: 01/15/24 16:42 Freq: Status: Active Protocol: Document 04/17/24 13:48 SP (Rec: 04/17/24 14:31 SP [id number]) Therapeutic Exercises Sitting Exercises LAQ Sitting Exercise Name LAQ- added to HEP /c HO Side bilateral Resistance 3# leg wt Equipment Used standard mesh chair Reps/Minutes x10 each LE Comments verbal cues to fully extend knee Standing Exercises Hip Abduction Standing Exercise Name initiated today Side bilateral Resistance 3# leg wt Equipment Used //bars Reps/Minutes 30 alternating Comments cued upright posture sit to stand Standing Exercise Name with UE use on seat -HEP review Side bilateral Equipment Used BUE on chair ascend, lap descend Reps/Minutes x10 Comments verbal cues to lean fwd, hip hinge w/ ascent, hand placement on seat Heel Raises Standing Exercise Name Heel Raises Side bilateral Resistance 3# leg wt Equipment Used @ rail Reps/Minutes x15 Comments VC to lower heels to floor slowly Hamstring Curls Standing Exercise Name Hamstring Curls Side bilateral Resistance 3# leg wt Equipment Used // bars Reps/Minutes 30 alternating Other Exercises Toe Taps Comments cued posturing, increase height step up Side-stepping Other Exercise Name Retro & Side-stepping Resistance Green Equipment Used 1-2 UE rail Reps/Minutes 10 ft x2 laps Comments cues upright posture, increase IVETTE Neuro Re-Education Treatment Balance Activities tilt board Details for balancing board Reps/Duration 11 sec R ft fwd, 3 sec L ft fwd Comments CGA initiates hands above bars, VC for posture Tandem Details Semi-Tandem Ambulation Equipment // bars- light 1 UE contact Reps/Duration 10 ft x2 laps PT-OP-T Assessment and Plan Start: 01/15/24 16:42 Freq: Status: Active Protocol: Document 04/17/24 13:48 SP (Rec: 04/17/24 14:31 SP [id number]) Physical Therapy Assessment Goals Three Impairment Pt completes a five times sit to stand test in 1:51.63 Short Term Goal (STG) Pt to complete her 5xStS test <60 seconds in order to demonstrate an improvement in activity tolerance. STG Duration Met Tile Fitter Goal (LTG) Pt to complete her 5xStS test <30 seconds without UE assistance in order to demonstrate an improvement in activity tolerance. LTG Duration 06/05/24 Two Impairment Pt presents as a high falls risk, per Yanez score (/56) Short Term Goal (STG) Pt to demonstrate a decrease in falls risk by improving Yanez score by at least seven points, to 30/56 STG Duration Met Tile Fitter Goal (LTG) Pt to demonstrate a decrease in falls risk by improving Yanez score by at least seven points, to 50/56 LTG Duration 06/05/24 One Impairment Pt does not have an appropriate home exercise program Short Term Goal (STG) Pt to be independent and compliant with an appropriate HEP 03/04/2024 Patient reports she is doing the seated hip with band exercise, but not the exercise that requires foot in cabinet under sink as it makes her unsteady and not sit to stand as she does that throughout the day. STG Duration 05/08/24 Assessment Summary Assessment Pt tired quicker, seated rest and hydration between activities. Tolerated progressed LE strengthening 3# leg wts 30 reps, BUE support. Physical Therapy Plan Frequency and Duration Frequency of Treatment 2x/Week Plan of Care Start Date 04/07/24 Plan of Care End Date 06/05/24 Therapeutic Interventions Therapeutic Interventions Balance Training,Coordination Training,Gait Training,Home Exercise Program,Joint Mobilizations,Manual Therapy, Neuromuscular Re-education, Patient/Caregiver Education, Self-Care/Home Management,Soft Tissue Mobilization, Therapeutic Activities, Therapeutic Exercises Modalities Cold Pack/Ice Massage,Electric Stimulation,Hot Packs Next Visit Focus/Plan Next Note Type Treatment Note Next Visit Plan Continue initiate LE ex, increase stride gait during gait, progressing balance activities. POC: LE strengthening, balance challenges, gait training, posture
--- NOTE | 2024-04-21 14:40 | PT.OTN ---
Current Diagnoses Low back pain, unspecified (04/21/24) Muscle weakness (generalized) (04/21/24) Unsteadiness on feet (04/21/24) Physical Therapy Treatment Note PT-OP-A Visit Information Start: 01/15/24 16:42 Freq: Status: Active Protocol: Document 04/21/24 14:08 SP (Rec: 04/21/24 15:12 SP [id number]) Out-Patient Physical Therapy Visit Information Visit Information Visit Type Treatment Note Visit Start Time 14:08 Visit Stop Time 14:40 Visit Number 25 (08/09 with PN) Number of GRAPHIC DESIGN PROFESSOR Visits 2 Evaluation Information Evaluation Date 01/15/24 PT-OP-B Current Condition Start: 01/15/24 16:42 Freq: Status: Active Protocol: Document 01/15/24 15:35 DCW (Rec: 01/15/24 17:44 DCW [id number]) Current Condition History of Current Condition Onset Date Multi-year history Current Complaints Low back pain, leg weakness, poor balance History of Current Condition Pt is an 88 year old female very well known to this clinic presenting with worsening low back pain, imbalance, leg weakness, and increased fear of falling. Pt notes she uses her 4WW around the house, which makes her feel more stable, but she cannot get the walker in or out of her car, so she relies on a SPC out in the community. 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 Pt unfortunately lost her earlier this year, and was also diagnosed with breast cancer, although she notes the cancer was excised recently and she believes it is mostly gone. Pt denies any falls, but feels that due to weakness in her legs and her inability to stand up straight, a fall is getting more likely. Low back pain is typically worse with lying supine in bed, bending over, or trying to molded goods spot picker something heavy. Treatment Goals Patient/Caregiver Goals Decrease risk of falls PT-OP-C Subjective Start: 01/15/24 16:42 Freq: Status: Active Protocol: Document 04/21/24 14:08 SP (Rec: 04/21/24 15:12 SP [id number]) OP-PT Subjective Patient Comments Patient Comments Pt arrives 15 min late for appt. She states her neck is really stiff and uncomfortable in middle. PT-OP-D Balance Start: 01/15/24 16:42 Freq: Status: Active Protocol: Document 04/07/24 13:51 DCW (Rec: 04/07/24 14:09 [facility] [id number]) Balance Tests Yanez Balance Test Yanez Balance Test Score 37/56 Yanez Impairment Rating 20 to 39% Impaired (Score 34- 44) Yanez Balance Assessment Evaluation Sitting to Standing Ability Independent w/Hands Unsupported Stance Safely- 2 minutes Sitting Unsupported, Feet on Floor Safely- 2 minutes Standing to Sitting Ability Assist, Control w/Hands Transfer Ability Safely, Hand Use Unsupported Stance- Eyes Closed Safely, 10 seconds Unsupported Stance- Eyes Open Independent, <30 seconds Reaching Forward Standing Safely, 5 inches Pick- Up Object From Floor Supervision Look Behind Shoulder - Standing Shifts Weight Unilateral Turning 360 Degrees Turns slowly, but safely Unsupported Stance, Alternating Feet on 2 Steps w/Minimum Assist Stair Unsupported Tandem Stance Assist to Step-15 seconds Unilateral Leg Stance Lifts Leg/Unable to Hold Total Score Yanez Total Score (out of 56 points) 37 Yanez Impairment Rating 20 to 39% Impaired (Score 34- 44) PT-OP-E Functional Tests Start: 01/15/24 16:42 Freq: Status: Active Protocol: Document 04/07/24 13:51 DCW (Rec: 04/07/24 14:09 [facility] [id number]) Functional Tests Five Times Sit to Stand Test Score 14.03 Comments with UE use hands on seat of webbed chair, unable without UE use PT-OP-J Posture/Palpation/Skin Start: 01/15/24 16:42 Freq: Status: Active Protocol: Document 04/07/24 13:51 DCW (Rec: 04/07/24 14:09 [facility] [id number]) Posture Evaluation Comments Posture Comments Pt presents with severe scoliosis and worsening excessive kyphosis. PT-OP-M Strength Start: 01/15/24 16:42 Freq: Status: Active Protocol: Document 04/07/24 13:51 DCW (Rec: 04/07/24 14:09 [facility] [id number]) Hip Strength Hip Manual Muscle Testing Right Flexion (L2) 4- Good- Abduction 4 Good Adduction 4 Good Left Flexion (L2) 4- Good- Abduction 4 Good Adduction 4 Good Knee Strength Knee Manual Muscle Testing Right Flexion (S2) 4 Good Extension (L3) 4+ Good+ Left Flexion (S2) 4 Good Extension (L3) 4+ Good+ Ankle/Foot Strength Ankle and Foot Manual Muscle Testing Right Dorsiflexion (L4) 4- Good- Left Dorsiflexion (L4) 4- Good- PT-OP-Q Treatments Start: 01/15/24 16:42 Freq: Status: Active Protocol: Document 04/21/24 14:08 SP (Rec: 04/21/24 15:12 SP [id number]) Gym Equipment Shuttle Recovery bilateral squat Details pillow behind mid back & head plus wedge Resistance 50 # 2 navy Reps/Time x30 Therapeutic Exercises Sidelying Exercises openbook Sidelying Exercise Name trialed in PT after manual Side bilateral Reps/Minutes 5 reps Comments VCs and tactile cue Sitting Exercises STS Sitting Exercise Name performance post manual Equipment Used UE support asc/desc on elevated table Reps/Minutes 5 reps Comments cued full stand: upright head/ UEs at side humeral ER/TKE- impr bal COG Gait Training Gait Activity AD Device Used hurrycane Distance/Duration 80 ft x2 Treatment Focus increase stride, posture Comments cues upright posture, increase stride, arm swing with TS/ ribcage rotation for support bal and mobility Manual Therapy Treatment Consent Patient gave verbal consent for manual Yes treatment Soft Tissue Mobilization periscapular muscles Body Location B pec, rhomboid, ES mid thoracic Mobilization Type Rolling Body Position SL Comments pillows between BLEs & under head Gentle STMs then assisted scapulothoracic adduction/ depression/TS rotation with ed head turn with arm if comfortable durign open book. neck Body Location UT, LS, SCM Mobilization Type Rolling Body Position SL Comments pillows between BLEs & under head gentle STMs Self-Care/Home Management Treatment Education Patient Education Body Mechanics,Posture,Safety Other Education Short time spent postural awareness head up, scap back, TKE and carryover awareness side sleeping head back, pillows between BLEs, added open book before gets up ( declined HO) to allow postural ROM to support gait and midline stability. PT-OP-T Assessment and Plan Start: 01/15/24 16:42 Freq: Status: Active Protocol: Document 04/21/24 14:08 SP (Rec: 04/21/24 15:12 SP [id number]) Physical Therapy Assessment Goals Three Impairment Pt completes a five times sit to stand test in 1:51.63 Short Term Goal (STG) Pt to complete her 5xStS test <60 seconds in order to demonstrate an improvement in activity tolerance. STG Duration Met Fishing Captain Goal (LTG) Pt to complete her 5xStS test <30 seconds without UE assistance in order to demonstrate an improvement in activity tolerance. LTG Duration 06/05/24 Two Impairment Pt presents as a high falls risk, per Yanez score () Short Term Goal (STG) Pt to demonstrate a decrease in falls risk by improving Yanez score by at least seven points, to STG Duration Met Fishing Captain Goal (LTG) Pt to demonstrate a decrease in falls risk by improving Yanez score by at least seven points, to 50 LTG Duration 06/05/24 One Impairment Pt does not have an appropriate home exercise program Short Term Goal (STG) Pt to be independent and compliant with an appropriate HEP 03/04/2024 Patient reports she is doing the seated hip with band exercise, but not the exercise that requires foot in cabinet under sink as it makes her unsteady and not sit to stand as she does that throughout the day. STG Duration 05/08/24 Assessment Summary Assessment Pt reports decreased neck tightness post manual, cues for chintuck and open book motion before getting up for postural mobility and support standing body mechanics. REviewed STS for upright postural awareness before walking to allow stability. Cues for arm swing, thoracic rotation, increase stride length to support normalizing gait. Pt reports neck not as tight and able to move better end of tx. Physical Therapy Plan Frequency and Duration Frequency of Treatment 2x/Week Plan of Care Start Date 04/07/24 Plan of Care End Date 06/05/24 Therapeutic Interventions Therapeutic Interventions Balance Training,Coordination Training,Gait Training,Home Exercise Program,Joint Mobilizations,Manual Therapy, Neuromuscular Re-education, Patient/Caregiver Education, Self-Care/Home Management,Soft Tissue Mobilization, Therapeutic Activities, Therapeutic Exercises Modalities Cold Pack/Ice Massage,Electric Stimulation,Hot Packs Next Visit Focus/Plan Next Note Type Treatment Note Next Visit Plan Ask response to Continue initiate LE ex, increase stride gait during gait, progressing balance activities . POC: LE strengthening, balance challenges, gait training, posture
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
--- NOTE | 2024-04-28 14:30 | PT.OTN ---
Current Diagnoses Low back pain, unspecified (04/28/24) Muscle weakness (generalized) (04/28/24) Unsteadiness on feet (04/28/24) Physical Therapy Treatment Note PT-OP-A Visit Information Start: 01/15/24 16:42 Freq: Status: Active Protocol: Document 04/28/24 13:56 SP (Rec: 04/28/24 14:51 SP [id number]) Out-Patient Physical Therapy Visit Information Visit Information Visit Type Treatment Note Visit Note Arrives 12 minutes late Visit Start Time 13:56 Visit Stop Time 14:30 Visit Number 27 (10/09 with PN) Number of AUTO WASH BUFFER Visits 0 Evaluation Information Evaluation Date 01/15/24 PT-OP-B Current Condition Start: 01/15/24 16:42 Freq: Status: Active Protocol: Document 01/15/24 15:35 DCW (Rec: 01/15/24 17:44 DCW [id number]) Current Condition History of Current Condition Onset Date Multi-year history Current Complaints Low back pain, leg weakness, poor balance History of Current Condition Pt is an 88 year old female very well known to this clinic presenting with worsening low back pain, imbalance, leg weakness, and increased fear of falling. Pt notes she uses her 4WW around the house, which makes her feel more stable, but she cannot get the walker in or out of her car, so she relies on a SPC out in the community. 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 Pt unfortunately lost her earlier this year, and was also diagnosed with breast cancer, although she notes the cancer was excised recently and she believes it is mostly gone. Pt denies any falls, but feels that due to weakness in her legs and her inability to stand up straight, a fall is getting more likely. Low back pain is typically worse with lying supine in bed, bending over, or trying to continuous pickling line pickler helper something heavy. Treatment Goals Patient/Caregiver Goals Decrease risk of falls PT-OP-C Subjective Start: 01/15/24 16:42 Freq: Status: Active Protocol: Document 04/28/24 13:56 SP (Rec: 04/28/24 14:51 SP [id number]) OP-PT Subjective Patient Comments Patient Comments Pt reports her neck felt alot better after worked on it last with AUTO WASH BUFFER. PT-OP-D Balance Start: 01/15/24 16:42 Freq: Status: Active Protocol: Document 04/07/24 13:51 DCW (Rec: 04/07/24 14:09 [facility] [id number]) Balance Tests Yanez Balance Test Yanez Balance Test Score 37/56 Yanez Impairment Rating 20 to 39% Impaired (Score 34- 44) Yanez Balance Assessment Evaluation Sitting to Standing Ability Independent w/Hands Unsupported Stance Safely- 2 minutes Sitting Unsupported, Feet on Floor Safely- 2 minutes Standing to Sitting Ability Assist, Control w/Hands Transfer Ability Safely, Hand Use Unsupported Stance- Eyes Closed Safely, 10 seconds Unsupported Stance- Eyes Open Independent, <30 seconds Reaching Forward Standing Safely, 5 inches Pick- Up Object From Floor Supervision Look Behind Shoulder - Standing Shifts Weight Unilateral Turning 360 Degrees Turns slowly, but safely Unsupported Stance, Alternating Feet on 2 Steps w/Minimum Assist Stair Unsupported Tandem Stance Assist to Step-15 seconds Unilateral Leg Stance Lifts Leg/Unable to Hold Total Score Yanez Total Score (out of 56 points) 37 Yanez Impairment Rating 20 to 39% Impaired (Score 34- 44) PT-OP-E Functional Tests Start: 01/15/24 16:42 Freq: Status: Active Protocol: Document 04/07/24 13:51 DCW (Rec: 04/07/24 14:09 [facility] [id number]) Functional Tests Five Times Sit to Stand Test Score 14.03 Comments with UE use hands on seat of webbed chair, unable without UE use PT-OP-J Posture/Palpation/Skin Start: 01/15/24 16:42 Freq: Status: Active Protocol: Document 04/07/24 13:51 DCW (Rec: 04/07/24 14:09 [facility] [id number]) Posture Evaluation Comments Posture Comments Pt presents with severe scoliosis and worsening excessive kyphosis. PT-OP-M Strength Start: 01/15/24 16:42 Freq: Status: Active Protocol: Document 04/07/24 13:51 DCW (Rec: 04/07/24 14:09 [facility] [id number]) Hip Strength Hip Manual Muscle Testing Right Flexion (L2) 4- Good- Abduction 4 Good Adduction 4 Good Left Flexion (L2) 4- Good- Abduction 4 Good Adduction 4 Good Knee Strength Knee Manual Muscle Testing Right Flexion (S2) 4 Good Extension (L3) 4+ Good+ Left Flexion (S2) 4 Good Extension (L3) 4+ Good+ Ankle/Foot Strength Ankle and Foot Manual Muscle Testing Right Dorsiflexion (L4) 4- Good- Left Dorsiflexion (L4) 4- Good- PT-OP-Q Treatments Start: 01/15/24 16:42 Freq: Status: Active Protocol: Document 04/28/24 13:56 SP (Rec: 04/28/24 14:51 SP [id number]) Gym Equipment Shuttle Balance Red Details WBOS, Staggered Comments stationary stance, HTs none to light 1 UE contact rail. (CG/10%A) Therapeutic Exercises Other Exercises Side-stepping Other Exercise Name Side-stepping, retro stepping Resistance Lv 2 loop Equipment Used 1-2 UE rail Reps/Minutes 10 ft x2 laps each Comments cues upright posture, increase IVETTE Neuro Re-Education Treatment Balance Activities retro stepping Details Retro ambulation Equipment // bars Reps/Duration 2 laps Comments none/light 1 UE contact, cues increase IVETTE improved posture. Hurdles Details Forward, Lateral Equipment //bars Reps/Duration 6 hurdles Comments light 1 UE support, cued heel and trail LE toe clearance Tandem Details Tandem gait- Forward Equipment //bars, light 1 UE contact Comments cued improve posture, better stability demonstrated PT-OP-T Assessment and Plan Start: 01/15/24 16:42 Freq: Status: Active Protocol: Document 04/28/24 13:56 SP (Rec: 04/28/24 14:51 SP [id number]) Physical Therapy Assessment Goals Three Impairment Pt completes a five times sit to stand test in 1:51.63 Short Term Goal (STG) Pt to complete her 5xStS test <60 seconds in order to demonstrate an improvement in activity tolerance. STG Duration Met Putty Worker Goal (LTG) Pt to complete her 5xStS test <30 seconds without UE assistance in order to demonstrate an improvement in activity tolerance. LTG Duration 06/05/24 Two Impairment Pt presents as a high falls risk, per Yanez score () Short Term Goal (STG) Pt to demonstrate a decrease in falls risk by improving Yanez score by at least seven points, to STG Duration Met Senior Care Goal (LTG) Pt to demonstrate a decrease in falls risk by improving Yanez score by at least seven points, to 50/56 LTG Duration 06/05/24 One Impairment Pt does not have an appropriate home exercise program Short Term Goal (STG) Pt to be independent and compliant with an appropriate HEP 03/04/2024 Patient reports she is doing the seated hip with band exercise, but not the exercise that requires foot in cabinet under sink as it makes her unsteady and not sit to stand as she does that throughout the day. STG Duration 05/08/24 Assessment Summary Assessment Pt requested seated rest between activities today for recovery rest. Cues for more upright posture and increase stride and IVETTE during balance activities. Physical Therapy Plan Frequency and Duration Frequency of Treatment 2x/Week Plan of Care Start Date 04/07/24 Plan of Care End Date 06/05/24 Therapeutic Interventions Therapeutic Interventions Balance Training,Coordination Training,Gait Training,Home Exercise Program,Joint Mobilizations,Manual Therapy, Neuromuscular Re-education, Patient/Caregiver Education, Self-Care/Home Management,Soft Tissue Mobilization, Therapeutic Activities, Therapeutic Exercises Modalities Cold Pack/Ice Massage,Electric Stimulation,Hot Packs Next Visit Focus/Plan Next Note Type Treatment Note Next Visit Plan Continue initiate LE ex, increase stride gait during gait, progressing balance activities. POC: LE strengthening, balance challenges, gait training, posture
--- NOTE | 2024-05-01 14:31 | PT.OTN ---
Current Diagnoses Low back pain, unspecified (05/01/24) Muscle weakness (generalized) (05/01/24) Unsteadiness on feet (05/01/24) Physical Therapy Treatment Note PT-OP-A Visit Information Start: 01/15/24 16:42 Freq: Status: Active Protocol: Document 05/01/24 13:47 DCW (Rec: 05/01/24 14:31 DCW [id number]) Out-Patient Physical Therapy Visit Information Visit Information Visit Type Treatment Note Visit Stop Time 14:30 Visit Number 28 (11/09 PN) Number of DIE FITTER Visits 0 Evaluation Information Evaluation Date 01/15/24 PT-OP-B Current Condition Start: 01/15/24 16:42 Freq: Status: Active Protocol: Document 01/15/24 15:35 DCW (Rec: 01/15/24 17:44 DCW [id number]) Current Condition History of Current Condition Onset Date Multi-year history Current Complaints Low back pain, leg weakness, poor balance History of Current Condition Pt is an 88 year old female very well known to this clinic presenting with worsening low back pain, imbalance, leg weakness, and increased fear of falling. Pt notes she uses her 4WW around the house, which makes her feel more stable, but she cannot get the walker in or out of her car, so she relies on a SPC out in the community. 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 Pt unfortunately lost her earlier this year, and was also diagnosed with breast cancer, although she notes the cancer was excised recently and she believes it is mostly gone. Pt denies any falls, but feels that due to weakness in her legs and her inability to stand up straight, a fall is getting more likely. Low back pain is typically worse with lying supine in bed, bending over, or trying to cone picker something heavy. Treatment Goals Patient/Caregiver Goals Decrease risk of falls PT-OP-C Subjective Start: 01/15/24 16:42 Freq: Status: Active Protocol: Document 05/01/24 13:47 DCW (Rec: 05/01/24 14:31 DCW [id number]) OP-PT Subjective Patient Comments Patient Comments Pt admits she has been feeling pretty down about things lately PT-OP-D Balance Start: 01/15/24 16:42 Freq: Status: Active Protocol: Document 04/07/24 13:51 DCW (Rec: 04/07/24 14:09 [facility] [id number]) Balance Tests Yanez Balance Test Yanez Balance Test Score 37/56 Yanez Impairment Rating 20 to 39% Impaired (Score 34- 44) Yanez Balance Assessment Evaluation Sitting to Standing Ability Independent w/Hands Unsupported Stance Safely- 2 minutes Sitting Unsupported, Feet on Floor Safely- 2 minutes Standing to Sitting Ability Assist, Control w/Hands Transfer Ability Safely, Hand Use Unsupported Stance- Eyes Closed Safely, 10 seconds Unsupported Stance- Eyes Open Independent, <30 seconds Reaching Forward Standing Safely, 5 inches Pick- Up Object From Floor Supervision Look Behind Shoulder - Standing Shifts Weight Unilateral Turning 360 Degrees Turns slowly, but safely Unsupported Stance, Alternating Feet on 2 Steps w/Minimum Assist Stair Unsupported Tandem Stance Assist to Step-15 seconds Unilateral Leg Stance Lifts Leg/Unable to Hold Total Score Yanez Total Score (out of 56 points) 37 Yanez Impairment Rating 20 to 39% Impaired (Score 34- 44) PT-OP-E Functional Tests Start: 01/15/24 16:42 Freq: Status: Active Protocol: Document 04/07/24 13:51 DCW (Rec: 04/07/24 14:09 [facility] [id number]) Functional Tests Five Times Sit to Stand Test Score 14.03 Comments with UE use hands on seat of webbed chair, unable without UE use PT-OP-J Posture/Palpation/Skin Start: 01/15/24 16:42 Freq: Status: Active Protocol: Document 04/07/24 13:51 DCW (Rec: 04/07/24 14:09 [facility] [id number]) Posture Evaluation Comments Posture Comments Pt presents with severe scoliosis and worsening excessive kyphosis. PT-OP-M Strength Start: 01/15/24 16:42 Freq: Status: Active Protocol: Document 04/07/24 13:51 DCW (Rec: 04/07/24 14:09 [facility] [id number]) Hip Strength Hip Manual Muscle Testing Right Flexion (L2) 4- Good- Abduction 4 Good Adduction 4 Good Left Flexion (L2) 4- Good- Abduction 4 Good Adduction 4 Good Knee Strength Knee Manual Muscle Testing Right Flexion (S2) 4 Good Extension (L3) 4+ Good+ Left Flexion (S2) 4 Good Extension (L3) 4+ Good+ Ankle/Foot Strength Ankle and Foot Manual Muscle Testing Right Dorsiflexion (L4) 4- Good- Left Dorsiflexion (L4) 4- Good- PT-OP-Q Treatments Start: 01/15/24 16:42 Freq: Status: Active Protocol: Document 05/01/24 13:47 DCW (Rec: 05/01/24 14:31 DCW [id number]) Gym Equipment Shuttle Balance Red Details WBOS, Staggered Therapeutic Exercises Other Exercises Side-stepping Other Exercise Name Side-stepping, retro stepping Resistance Lv 2 loop Equipment Used 1-2 UE rail Reps/Minutes 10 ft x2 laps each Comments cues upright posture, increase IVETTE Neuro Re-Education Treatment Balance Activities step up taps Details CGA Equipment 4 Reps/Duration x10 Comments VCs to decrease use of bars SLS Details SLS Equipment // bars Hurdles Details Hurdles Equipment // bars, UE support Reps/Duration 6 hurdles Comments Forward, Lateral Foam Details Foam stance, EO/EC, X1 Surface AirEx Tandem Details Tandem Stance PT-OP-T Assessment and Plan Start: 01/15/24 16:42 Freq: Status: Active Protocol: Document 05/01/24 13:47 DCW (Rec: 05/01/24 14:31 DCW [id number]) Physical Therapy Assessment Goals Three Impairment Pt completes a five times sit to stand test in 1:51.63 Short Term Goal (STG) Pt to complete her 5xStS test <60 seconds in order to demonstrate an improvement in activity tolerance. STG Duration Met Silverware Etcher Goal (LTG) Pt to complete her 5xStS test <30 seconds without UE assistance in order to demonstrate an improvement in activity tolerance. LTG Duration 06/05/24 Two Impairment Pt presents as a high falls risk, per Yanez score (23/56) Short Term Goal (STG) Pt to demonstrate a decrease in falls risk by improving Yanez score by at least seven points, to 30/56 STG Duration Met Custodial Goal (LTG) Pt to demonstrate a decrease in falls risk by improving Yanez score by at least seven points, to 50/56 LTG Duration 06/05/24 One Impairment Pt does not have an appropriate home exercise program Short Term Goal (STG) Pt to be independent and compliant with an appropriate HEP 03/04/2024 Patient reports she is doing the seated hip with band exercise, but not the exercise that requires foot in cabinet under sink as it makes her unsteady and not sit to stand as she does that throughout the day. STG Duration 05/08/24 Assessment Summary Assessment Pt did well today, showing improvement with toe-taps without UE assist. Continue to focus on balance and posture training. Physical Therapy Plan Frequency and Duration Frequency of Treatment 2x/Week Plan of Care Start Date 04/07/24 Plan of Care End Date 06/05/24 Therapeutic Interventions Therapeutic Interventions Balance Training,Coordination Training,Gait Training,Home Exercise Program,Joint Mobilizations,Manual Therapy, Neuromuscular Re-education, Patient/Caregiver Education, Self-Care/Home Management,Soft Tissue Mobilization, Therapeutic Activities, Therapeutic Exercises Modalities Cold Pack/Ice Massage,Electric Stimulation,Hot Packs Next Visit Focus/Plan Next Note Type Treatment Note Next Visit Plan Continue initiate LE ex, increase stride gait during gait, progressing balance activities. POC: LE strengthening, balance challenges, gait training, posture
--- NOTE | 2024-05-12 13:00 | PT.OTN ---
Current Diagnoses Low back pain, unspecified (05/12/24) Muscle weakness (generalized) (05/12/24) Unsteadiness on feet (05/12/24) Physical Therapy Treatment Note PT-OP-A Visit Information Start: 01/15/24 16:42 Freq: Status: Active Protocol: Document 05/12/24 12:22 DCW (Rec: 05/12/24 13:00 DCW [id number]) Out-Patient Physical Therapy Visit Information Visit Information Visit Type Treatment Note Visit Start Time 12:22 Visit Stop Time 13:00 Visit Number 29 (12/10 PN) Number of ENGRAVER SEALS Visits 0 Evaluation Information Evaluation Date 01/15/24 PT-OP-B Current Condition Start: 01/15/24 16:42 Freq: Status: Active Protocol: Document 01/15/24 15:35 DCW (Rec: 01/15/24 17:44 DCW [id number]) Current Condition History of Current Condition Onset Date Multi-year history Current Complaints Low back pain, leg weakness, poor balance History of Current Condition Pt is an 88 year old female very well known to this clinic presenting with worsening low back pain, imbalance, leg weakness, and increased fear of falling. Pt notes she uses her 4WW around the house, which makes her feel more stable, but she cannot get the walker in or out of her car, so she relies on a SPC out in the community. 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 Pt unfortunately lost her earlier this year, and was also diagnosed with breast cancer, although she notes the cancer was excised recently and she believes it is mostly gone. Pt denies any falls, but feels that due to weakness in her legs and her inability to stand up straight, a fall is getting more likely. 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 Treatment Goals Patient/Caregiver Goals Decrease risk of falls PT-OP-C Subjective Start: 01/15/24 16:42 Freq: Status: Active Protocol: Document 05/12/24 12:22 DCW (Rec: 05/12/24 13:00 DCW [id number]) OP-PT Subjective Patient Comments Patient Comments I'm actually feeling pretty good. PT-OP-D Balance Start: 01/15/24 16:42 Freq: Status: Active Protocol: Document 04/07/24 13:51 DCW (Rec: 04/07/24 14:09 [facility] [id number]) Balance Tests Yanez Balance Test Yanez Balance Test Score 37/56 Yanez Impairment Rating 20 to 39% Impaired (Score 34- 44) Yanez Balance Assessment Evaluation Sitting to Standing Ability Independent w/Hands Unsupported Stance Safely- 2 minutes Sitting Unsupported, Feet on Floor Safely- 2 minutes Standing to Sitting Ability Assist, Control w/Hands Transfer Ability Safely, Hand Use Unsupported Stance- Eyes Closed Safely, 10 seconds Unsupported Stance- Eyes Open Independent, <30 seconds Reaching Forward Standing Safely, 5 inches Pick- Up Object From Floor Supervision Look Behind Shoulder - Standing Shifts Weight Unilateral Turning 360 Degrees Turns slowly, but safely Unsupported Stance, Alternating Feet on 2 Steps w/Minimum Assist Stair Unsupported Tandem Stance Assist to Step-15 seconds Unilateral Leg Stance Lifts Leg/Unable to Hold Total Score Yanez Total Score (out of 56 points) 37 Yanez Impairment Rating 20 to 39% Impaired (Score 34- 44) PT-OP-E Functional Tests Start: 01/15/24 16:42 Freq: Status: Active Protocol: Document 04/07/24 13:51 DCW (Rec: 04/07/24 14:09 [facility] [id number]) Functional Tests Five Times Sit to Stand Test Score 14.03 Comments with UE use hands on seat of webbed chair, unable without UE use PT-OP-J Posture/Palpation/Skin Start: 01/15/24 16:42 Freq: Status: Active Protocol: Document 04/07/24 13:51 DCW (Rec: 04/07/24 14:09 [facility] [id number]) Posture Evaluation Comments Posture Comments Pt presents with severe scoliosis and worsening excessive kyphosis. PT-OP-M Strength Start: 01/15/24 16:42 Freq: Status: Active Protocol: Document 04/07/24 13:51 DCW (Rec: 04/07/24 14:09 [facility] [id number]) Hip Strength Hip Manual Muscle Testing Right Flexion (L2) 4- Good- Abduction 4 Good Adduction 4 Good Left Flexion (L2) 4- Good- Abduction 4 Good Adduction 4 Good Knee Strength Knee Manual Muscle Testing Right Flexion (S2) 4 Good Extension (L3) 4+ Good+ Left Flexion (S2) 4 Good Extension (L3) 4+ Good+ Ankle/Foot Strength Ankle and Foot Manual Muscle Testing Right Dorsiflexion (L4) 4- Good- Left Dorsiflexion (L4) 4- Good- PT-OP-Q Treatments Start: 01/15/24 16:42 Freq: Status: Active Protocol: Document 05/12/24 12:22 DCW (Rec: 05/12/24 13:00 NDW [id number]) Gym Equipment Shuttle Balance Red Details WBOS, Staggered Therapeutic Exercises Standing Exercises Hamstring Curls Standing Exercise Name Hamstring Curls Side bilateral Resistance 3# leg wt Equipment Used // bars Reps/Minutes 30 alternating Other Exercises Side-stepping Other Exercise Name Side-stepping, retro stepping Resistance Lv 2 loop Equipment Used 1-2 UE rail Reps/Minutes 10 ft x2 laps each Comments cues upright posture, increase IVETTE Neuro Re-Education Treatment Balance Activities step up taps Details CGA Equipment 4 step, 2# ankle weights Reps/Duration x10 Comments VCs to decrease use of bars SLS Details SLS Equipment // bars retro stepping Details Retro ambulation Equipment // bars Reps/Duration 2 laps Comments none/light 1 UE contact, cues increase IVETTE improved posture. Hurdles Details Hurdles Equipment // bars, UE support Reps/Duration 6 hurdles Comments Forward, Lateral Foam Details Foam stance, EO/EC Surface AirEx Tandem Details Tandem Stance PT-OP-T Assessment and Plan Start: 01/15/24 16:42 Freq: Status: Active Protocol: Document 05/12/24 12:22 DCW (Rec: 05/12/24 13:00 NDW [id number]) Physical Therapy Assessment Goals Three Impairment Pt completes a five times sit to stand test in 1:51.63 Short Term Goal (STG) Pt to complete her 5xStS test <60 seconds in order to demonstrate an improvement in activity tolerance. STG Duration Met Prison Goal (LTG) Pt to complete her 5xStS test <30 seconds without UE assistance in order to demonstrate an improvement in activity tolerance. LTG Duration 06/05/24 Two Impairment Pt presents as a high falls risk, per Yanez score (23/56) Short Term Goal (STG) Pt to demonstrate a decrease in falls risk by improving Yanez score by at least seven points, to 30/56 STG Duration Met Prison Goal (LTG) Pt to demonstrate a decrease in falls risk by improving Yanez score by at least seven points, to 50/56 LTG Duration 06/05/24 One Impairment Pt does not have an appropriate home exercise program Short Term Goal (STG) Pt to be independent and compliant with an appropriate HEP 03/04/2024 Patient reports she is doing the seated hip with band exercise, but not the exercise that requires foot in cabinet under sink as it makes her unsteady and not sit to stand as she does that throughout the day. STG Duration 05/08/24 Assessment Summary Assessment Pt continues to move relatively slow, but is experiencing fewer instances of LOB. Continue to focus on balance and strengthening. Physical Therapy Plan Frequency and Duration Frequency of Treatment 2x/Week Plan of Care Start Date 04/07/24 Plan of Care End Date 06/05/24 Therapeutic Interventions Therapeutic Interventions Balance Training,Coordination Training,Gait Training,Home Exercise Program,Joint Mobilizations,Manual Therapy, Neuromuscular Re-education, Patient/Caregiver Education, Self-Care/Home Management,Soft Tissue Mobilization, Therapeutic Activities, Therapeutic Exercises Modalities Cold Pack/Ice Massage,Electric Stimulation,Hot Packs Next Visit Focus/Plan Next Note Type Progress Note Next Visit Plan Prog note
--- NOTE | 2024-05-15 17:02 | PT.OTN ---
Current Diagnoses Low back pain, unspecified (05/15/24) Muscle weakness (generalized) (05/15/24) Unsteadiness on feet (05/15/24) Physical Therapy Treatment Note PT-OP-A Visit Information Start: 01/15/24 16:42 Freq: Status: Active Protocol: Document 05/15/24 16:22 DCW (Rec: 05/15/24 17:02 DCW [id number]) Out-Patient Physical Therapy Visit Information Visit Information Visit Type Treatment Note Visit Start Time 16:22 Visit Stop Time 17:00 Visit Number 30 Number of TECHNICAL SUPPORT ANALYST Visits 0 Evaluation Information Evaluation Date 01/15/24 PT-OP-B Current Condition Start: 01/15/24 16:42 Freq: Status: Active Protocol: Document 01/15/24 15:35 DCW (Rec: 01/15/24 17:44 DCW [id number]) Current Condition History of Current Condition Onset Date Multi-year history Current Complaints Low back pain, leg weakness, poor balance History of Current Condition Pt is an 88 year old female very well known to this clinic presenting with worsening low back pain, imbalance, leg weakness, and increased fear of falling. Pt notes she uses her 4WW around the house, which makes her feel more stable, but she cannot get the walker in or out of her car, so she relies on a SPC out in the community. 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 Pt unfortunately lost her earlier this year, and was also diagnosed with breast cancer, although she notes the cancer was excised recently and she believes it is mostly gone. Pt denies any falls, but feels that due to weakness in her legs and her inability to stand up straight, a fall is getting more likely. 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 Treatment Goals Patient/Caregiver Goals Decrease risk of falls PT-OP-C Subjective Start: 01/15/24 16:42 Freq: Status: Active Protocol: Document 05/15/24 16:22 DCW (Rec: 05/15/24 17:02 DCW [id number]) OP-PT Subjective Patient Comments Patient Comments My back hurts, but it alwasys hurts. PT-OP-D Balance Start: 01/15/24 16:42 Freq: Status: Active Protocol: Document 04/07/24 13:51 DCW (Rec: 04/07/24 14:09 [facility] [id number]) Balance Tests Yanez Balance Test Yanez Balance Test Score 37/56 Yanez Impairment Rating 20 to 39% Impaired (Score 34- 44) Yanez Balance Assessment Evaluation Sitting to Standing Ability Independent w/Hands Unsupported Stance Safely- 2 minutes Sitting Unsupported, Feet on Floor Safely- 2 minutes Standing to Sitting Ability Assist, Control w/Hands Transfer Ability Safely, Hand Use Unsupported Stance- Eyes Closed Safely, 10 seconds Unsupported Stance- Eyes Open Independent, <30 seconds Reaching Forward Standing Safely, 5 inches Pick- Up Object From Floor Supervision Look Behind Shoulder - Standing Shifts Weight Unilateral Turning 360 Degrees Turns slowly, but safely Unsupported Stance, Alternating Feet on 2 Steps w/Minimum Assist Stair Unsupported Tandem Stance Assist to Step-15 seconds Unilateral Leg Stance Lifts Leg/Unable to Hold Total Score Yanez Total Score (out of 56 points) 37 Yanez Impairment Rating 20 to 39% Impaired (Score 34- 44) PT-OP-E Functional Tests Start: 01/15/24 16:42 Freq: Status: Active Protocol: Document 04/07/24 13:51 DCW (Rec: 04/07/24 14:09 [facility] [id number]) Functional Tests Five Times Sit to Stand Test Score 14.03 Comments with UE use hands on seat of webbed chair, unable without UE use PT-OP-J Posture/Palpation/Skin Start: 01/15/24 16:42 Freq: Status: Active Protocol: Document 04/07/24 13:51 DCW (Rec: 04/07/24 14:09 [facility] [id number]) Posture Evaluation Comments Posture Comments Pt presents with severe scoliosis and worsening excessive kyphosis. PT-OP-M Strength Start: 01/15/24 16:42 Freq: Status: Active Protocol: Document 04/07/24 13:51 DCW (Rec: 04/07/24 14:09 [facility] [id number]) Hip Strength Hip Manual Muscle Testing Right Flexion (L2) 4- Good- Abduction 4 Good Adduction 4 Good Left Flexion (L2) 4- Good- Abduction 4 Good Adduction 4 Good Knee Strength Knee Manual Muscle Testing Right Flexion (S2) 4 Good Extension (L3) 4+ Good+ Left Flexion (S2) 4 Good Extension (L3) 4+ Good+ Ankle/Foot Strength Ankle and Foot Manual Muscle Testing Right Dorsiflexion (L4) 4- Good- Left Dorsiflexion (L4) 4- Good- PT-OP-Q Treatments Start: 01/15/24 16:42 Freq: Status: Active Protocol: Document 05/15/24 16:22 DCW (Rec: 05/15/24 17:02 [facility] [id number]) Gym Equipment Shuttle Balance Red Details WBOS, Staggered Therapeutic Exercises Other Exercises Side-stepping Other Exercise Name Side-stepping, retro stepping Resistance Lv 2 loop Equipment Used 1-2 UE rail Reps/Minutes 10 ft x2 laps each Comments cues upright posture, increase IVETTE Neuro Re-Education Treatment Balance Activities step up taps Details CGA Equipment 6 step Reps/Duration x10 Comments VCs to decrease use of bars SLS Details SLS Equipment // bars retro stepping Details Retro ambulation Equipment // bars Reps/Duration 2 laps Comments none/light 1 UE contact, cues increase IVETTE improved posture. Hurdles Details Hurdles Equipment // bars, UE support Reps/Duration 6 hurdles Comments Forward, Lateral Foam Details Foam stance, EO/EC Surface AirEx Tandem Details Tandem Stance PT-OP-T Assessment and Plan Start: 01/15/24 16:42 Freq: Status: Active Protocol: Document 05/15/24 16:22 DCW (Rec: 05/15/24 17:02 [facility] [id number]) Physical Therapy Assessment Goals Three Impairment Pt completes a five times sit to stand test in 1:51.63 Short Term Goal (STG) Pt to complete her 5xStS test <60 seconds in order to demonstrate an improvement in activity tolerance. STG Duration Met Chcf Goal (LTG) Pt to complete her 5xStS test <30 seconds without UE assistance in order to demonstrate an improvement in activity tolerance. LTG Duration 06/05/24 Two Impairment Pt presents as a high falls risk, per Yanez score (23/56) Short Term Goal (STG) Pt to demonstrate a decrease in falls risk by improving Yanez score by at least seven points, to 30/56 STG Duration Met Chcf Goal (LTG) Pt to demonstrate a decrease in falls risk by improving Yanez score by at least seven points, to 50/56 LTG Duration 06/05/24 One Impairment Pt does not have an appropriate home exercise program Short Term Goal (STG) Pt to be independent and compliant with an appropriate HEP 03/04/2024 Patient reports she is doing the seated hip with band exercise, but not the exercise that requires foot in cabinet under sink as it makes her unsteady and not sit to stand as she does that throughout the day. STG Duration 05/08/24 Assessment Summary Assessment Pt struggled a little more with balance today, relied more on her UEs for stability. Is making some progress with activity tolerance, but continues to fatigue quickly. Physical Therapy Plan Frequency and Duration Frequency of Treatment 2x/Week Plan of Care Start Date 04/07/24 Plan of Care End Date 06/05/24 Therapeutic Interventions Therapeutic Interventions Balance Training,Coordination Training,Gait Training,Home Exercise Program,Joint Mobilizations,Manual Therapy, Neuromuscular Re-education, Patient/Caregiver Education, Self-Care/Home Management,Soft Tissue Mobilization, Therapeutic Activities, Therapeutic Exercises Modalities Cold Pack/Ice Massage,Electric Stimulation,Hot Packs Next Visit Focus/Plan Next Note Type Treatment Note Next Visit Plan Continue initiate LE ex, increase stride gait during gait, progressing balance activities. POC: LE strengthening, balance challenges, gait training, posture
--- NOTE | 2024-05-19 16:00 | PT.OTN ---
Current Diagnoses Low back pain, unspecified (05/19/24) Muscle weakness (generalized) (05/19/24) Unsteadiness on feet (05/19/24) Physical Therapy Treatment Note PT-OP-A Visit Information Start: 01/15/24 16:42 Freq: Status: Active Protocol: Document 05/19/24 15:19 DCW (Rec: 05/19/24 16:00 DCW [id number]) Out-Patient Physical Therapy Visit Information Visit Information Visit Type Treatment Note Visit Start Time 15:19 Visit Stop Time 16:00 Visit Number 31 (04/11 PN) Number of ED PHYSICIANS Visits 0 Evaluation Information Evaluation Date 01/15/24 PT-OP-B Current Condition Start: 01/15/24 16:42 Freq: Status: Active Protocol: Document 01/15/24 15:35 DCW (Rec: 01/15/24 17:44 DCW [id number]) Current Condition History of Current Condition Onset Date Multi-year history Current Complaints Low back pain, leg weakness, poor balance History of Current Condition Pt is an 88 year old female very well known to this clinic presenting with worsening low back pain, imbalance, leg weakness, and increased fear of falling. Pt notes she uses her 4WW around the house, which makes her feel more stable, but she cannot get the walker in or out of her car, so she relies on a SPC out in the community. 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 Pt unfortunately lost her earlier this year, and was also diagnosed with breast cancer, although she notes the cancer was excised recently and she believes it is mostly gone. Pt denies any falls, but feels that due to weakness in her legs and her inability to stand up straight, a fall is getting more likely. 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 Treatment Goals Patient/Caregiver Goals Decrease risk of falls PT-OP-C Subjective Start: 01/15/24 16:42 Freq: Status: Active Protocol: Document 05/19/24 15:19 DCW (Rec: 05/19/24 16:00 DCW [id number]) OP-PT Subjective Patient Comments Patient Comments Pt doing basically pretty well today. PT-OP-D Balance Start: 01/15/24 16:42 Freq: Status: Active Protocol: Document 04/07/24 13:51 DCW (Rec: 04/07/24 14:09 [facility] [id number]) Balance Tests Yanez Balance Test Yanez Balance Test Score 37/56 Yanez Impairment Rating 20 to 39% Impaired (Score 34- 44) Yanez Balance Assessment Evaluation Sitting to Standing Ability Independent w/Hands Unsupported Stance Safely- 2 minutes Sitting Unsupported, Feet on Floor Safely- 2 minutes Standing to Sitting Ability Assist, Control w/Hands Transfer Ability Safely, Hand Use Unsupported Stance- Eyes Closed Safely, 10 seconds Unsupported Stance- Eyes Open Independent, <30 seconds Reaching Forward Standing Safely, 5 inches Pick- Up Object From Floor Supervision Look Behind Shoulder - Standing Shifts Weight Unilateral Turning 360 Degrees Turns slowly, but safely Unsupported Stance, Alternating Feet on 2 Steps w/Minimum Assist Stair Unsupported Tandem Stance Assist to Step-15 seconds Unilateral Leg Stance Lifts Leg/Unable to Hold Total Score Yanez Total Score (out of 56 points) 37 Yanez Impairment Rating 20 to 39% Impaired (Score 34- 44) PT-OP-E Functional Tests Start: 01/15/24 16:42 Freq: Status: Active Protocol: Document 04/07/24 13:51 DCW (Rec: 04/07/24 14:09 [facility] [id number]) Functional Tests Five Times Sit to Stand Test Score 14.03 Comments with UE use hands on seat of webbed chair, unable without UE use PT-OP-J Posture/Palpation/Skin Start: 01/15/24 16:42 Freq: Status: Active Protocol: Document 04/07/24 13:51 DCW (Rec: 04/07/24 14:09 [facility] [id number]) Posture Evaluation Comments Posture Comments Pt presents with severe scoliosis and worsening excessive kyphosis. PT-OP-M Strength Start: 01/15/24 16:42 Freq: Status: Active Protocol: Document 04/07/24 13:51 DCW (Rec: 04/07/24 14:09 [facility] [id number]) Hip Strength Hip Manual Muscle Testing Right Flexion (L2) 4- Good- Abduction 4 Good Adduction 4 Good Left Flexion (L2) 4- Good- Abduction 4 Good Adduction 4 Good Knee Strength Knee Manual Muscle Testing Right Flexion (S2) 4 Good Extension (L3) 4+ Good+ Left Flexion (S2) 4 Good Extension (L3) 4+ Good+ Ankle/Foot Strength Ankle and Foot Manual Muscle Testing Right Dorsiflexion (L4) 4- Good- Left Dorsiflexion (L4) 4- Good- PT-OP-Q Treatments Start: 01/15/24 16:42 Freq: Status: Active Protocol: Document 05/19/24 15:19 DCW (Rec: 05/19/24 16:00 DCW [id number]) Gym Equipment Shuttle Balance Red Details WBOS, Staggered Therapeutic Exercises Other Exercises Side-stepping Other Exercise Name Side-stepping Resistance Lv 2 loop Equipment Used 1-2 UE rail Reps/Minutes 10 ft x2 laps Comments cues upright posture, increase IVETTE Neuro Re-Education Treatment Balance Activities step up taps Details CGA Equipment 6 step Reps/Duration x10 Comments VCs to decrease use of bars SLS Details SLS Equipment // bars retro stepping Details Retro ambulation Equipment // bars Reps/Duration 2 laps Comments none/light 1 UE contact, cues increase IVETTE improved posture. Hurdles Details Hurdles Equipment // bars, UE support Reps/Duration 6 hurdles Comments Forward, Lateral Foam Details Foam stance, EO/EC, X1 Surface AirEx PT-OP-T Assessment and Plan Start: 01/15/24 16:42 Freq: Status: Active Protocol: Document 05/19/24 15:19 DCW (Rec: 05/19/24 16:00 [facility] [id number]) Physical Therapy Assessment Impairments Impairments Activity Tolerance,Balance, Functional Activities, Functional Mobility,Gait,Pain, Posture,Soft Tissue Mobility, Strength,Tone Goals Three Impairment Pt completes a five times sit to stand test in 1:51.63 Short Term Goal (STG) Pt to complete her 5xStS test <60 seconds in order to demonstrate an improvement in activity tolerance. STG Duration Met Truck Repair Service Estimator Goal (LTG) Pt to complete her 5xStS test <30 seconds without UE assistance in order to demonstrate an improvement in activity tolerance. LTG Duration 06/05/24 Two Impairment Pt presents as a high falls risk, per Yanez score (56) Short Term Goal (STG) Pt to demonstrate a decrease in falls risk by improving Yanez score by at least seven points, to 3056 STG Duration Met Half-Way Goal (LTG) Pt to demonstrate a decrease in falls risk by improving Yanez score by at least seven points, to 50/56 LTG Duration 06/05/24 One Impairment Pt does not have an appropriate home exercise program Short Term Goal (STG) Pt to be independent and compliant with an appropriate HEP 03/04/2024 Patient reports she is doing the seated hip with band exercise, but not the exercise that requires foot in cabinet under sink as it makes her unsteady and not sit to stand as she does that throughout the day. STG Duration 05/08/24 Assessment Summary Assessment Pt having a bit more difficulty today with hurdles and fatigue. Working on balance, stabilization, LE strengthening, and gait. Physical Therapy Plan Frequency and Duration Frequency of Treatment 2x/Week Plan of Care Start Date 04/07/24 Plan of Care End Date 06/05/24 Therapeutic Interventions Therapeutic Interventions Balance Training,Coordination Training,Gait Training,Home Exercise Program,Joint Mobilizations,Manual Therapy, Neuromuscular Re-education, Patient/Caregiver Education, Self-Care/Home Management,Soft Tissue Mobilization, Therapeutic Activities, Therapeutic Exercises Modalities Cold Pack/Ice Massage,Electric Stimulation,Hot Packs Next Visit Focus/Plan Next Note Type Treatment Note Next Visit Plan Continue initiate LE ex, increase stride gait during gait, progressing balance activities. POC: LE strengthening, balance challenges, gait training, posture
--- NOTE | 2024-05-22 14:15 | PT.OTN ---
Current Diagnoses Low back pain, unspecified (05/22/24) Muscle weakness (generalized) (05/22/24) Unsteadiness on feet (05/22/24) Physical Therapy Treatment Note PT-OP-A Visit Information Start: 01/15/24 16:42 Freq: Status: Active Protocol: Document 05/22/24 13:35 SP (Rec: 05/22/24 14:22 SP [id number]) Out-Patient Physical Therapy Visit Information Visit Information Visit Type Treatment Note Visit Start Time 13:35 Visit Stop Time 14:15 Visit Number 32 (2/10 PN) Number of REGION MANAGER Visits 1 Evaluation Information Evaluation Date 01/15/24 PT-OP-B Current Condition Start: 01/15/24 16:42 Freq: Status: Active Protocol: Document 01/15/24 15:35 DCW (Rec: 01/15/24 17:44 DCW [id number]) Current Condition History of Current Condition Onset Date Multi-year history Current Complaints Low back pain, leg weakness, poor balance History of Current Condition Pt is an 88 year old female very well known to this clinic presenting with worsening low back pain, imbalance, leg weakness, and increased fear of falling. Pt notes she uses her 4WW around the house, which makes her feel more stable, but she cannot get the walker in or out of her car, so she relies on a SPC out in the community. 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 Pt unfortunately lost her earlier this year, and was also diagnosed with breast cancer, although she notes the cancer was excised recently and she believes it is mostly gone. Pt denies any falls, but feels that due to weakness in her legs and her inability to stand up straight, a fall is getting more likely. 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 Treatment Goals Patient/Caregiver Goals Decrease risk of falls PT-OP-C Subjective Start: 01/15/24 16:42 Freq: Status: Active Protocol: Document 05/22/24 13:35 SP (Rec: 05/22/24 14:22 SP [id number]) OP-PT Subjective Patient Comments Patient Comments Pt reports midread appt time, 35 min late, took next appt slot . PT-OP-D Balance Start: 01/15/24 16:42 Freq: Status: Active Protocol: Document 04/07/24 13:51 DCW (Rec: 04/07/24 14:09 [facility] [id number]) Balance Tests Yanez Balance Test Yanez Balance Test Score 37/56 Yanez Impairment Rating 20 to 39% Impaired (Score 34- 44) Yanez Balance Assessment Evaluation Sitting to Standing Ability Independent w/Hands Unsupported Stance Safely- 2 minutes Sitting Unsupported, Feet on Floor Safely- 2 minutes Standing to Sitting Ability Assist, Control w/Hands Transfer Ability Safely, Hand Use Unsupported Stance- Eyes Closed Safely, 10 seconds Unsupported Stance- Eyes Open Independent, <30 seconds Reaching Forward Standing Safely, 5 inches Pick- Up Object From Floor Supervision Look Behind Shoulder - Standing Shifts Weight Unilateral Turning 360 Degrees Turns slowly, but safely Unsupported Stance, Alternating Feet on 2 Steps w/Minimum Assist Stair Unsupported Tandem Stance Assist to Step-15 seconds Unilateral Leg Stance Lifts Leg/Unable to Hold Total Score Yanez Total Score (out of 56 points) 37 Yanez Impairment Rating 20 to 39% Impaired (Score 34- 44) PT-OP-E Functional Tests Start: 01/15/24 16:42 Freq: Status: Active Protocol: Document 04/07/24 13:51 DCW (Rec: 04/07/24 14:09 [facility] [id number]) Functional Tests Five Times Sit to Stand Test Score 14.03 Comments with UE use hands on seat of webbed chair, unable without UE use PT-OP-J Posture/Palpation/Skin Start: 01/15/24 16:42 Freq: Status: Active Protocol: Document 04/07/24 13:51 DCW (Rec: 04/07/24 14:09 [facility] [id number]) Posture Evaluation Comments Posture Comments Pt presents with severe scoliosis and worsening excessive kyphosis. PT-OP-M Strength Start: 01/15/24 16:42 Freq: Status: Active Protocol: Document 04/07/24 13:51 DCW (Rec: 04/07/24 14:09 [facility] [id number]) Hip Strength Hip Manual Muscle Testing Right Flexion (L2) 4- Good- Abduction 4 Good Adduction 4 Good Left Flexion (L2) 4- Good- Abduction 4 Good Adduction 4 Good Knee Strength Knee Manual Muscle Testing Right Flexion (S2) 4 Good Extension (L3) 4+ Good+ Left Flexion (S2) 4 Good Extension (L3) 4+ Good+ Ankle/Foot Strength Ankle and Foot Manual Muscle Testing Right Dorsiflexion (L4) 4- Good- Left Dorsiflexion (L4) 4- Good- PT-OP-Q Treatments Start: 01/15/24 16:42 Freq: Status: Active Protocol: Document 05/22/24 13:35 SP (Rec: 05/22/24 14:22 SP [id number]) Therapeutic Exercises Sitting Exercises LAQ Sitting Exercise Name LAQ- added to HEP /c HO Side bilateral Resistance 5# leg wt Equipment Used standard mesh chair Reps/Minutes 30 alternating Comments verbal cues to fully extend knee Standing Exercises stepping with band Standing Exercise Name side stepping, retro stepping Resistance GTB Reps/Minutes 10 feet X 3, 10 feet retro X 3 Comments no UE support , cued head up Neuro Re-Education Treatment Balance Activities semi tandem walking Details fwd Equipment inside //bars Comments only light RUE outside hand contact during RLE advnacement , no UE LLE advancement step up taps Details CGA Equipment 8 step, 5# leg wt Reps/Duration 30 alternating BLE s Comments light rail retro stepping Details Retro ambulation Equipment inside // bars Reps/Duration 2 laps Comments none/light 0 UE contact, cued head up Hurdles Details Hurdles Equipment // bars, UE support Reps/Duration 6 hurdles x3 laps each direction Comments Forward, Lateral Tandem Details SEmi Tandem Stance Equipment foam Comments LLE fwd 28 sec RLE fwd 30 sec PT-OP-T Assessment and Plan Start: 01/15/24 16:42 Freq: Status: Active Protocol: Document 05/22/24 13:35 SP (Rec: 05/22/24 14:22 SP [id number]) Physical Therapy Assessment Goals Three Impairment Pt completes a five times sit to stand test in 1:51.63 Short Term Goal (STG) Pt to complete her 5xStS test <60 seconds in order to demonstrate an improvement in activity tolerance. STG Duration Met District Director Goal (LTG) Pt to complete her 5xStS test <30 seconds without UE assistance in order to demonstrate an improvement in activity tolerance. LTG Duration 06/05/24 Two Impairment Pt presents as a high falls risk, per Yanez score (23/56) Short Term Goal (STG) Pt to demonstrate a decrease in falls risk by improving Yanez score by at least seven points, to 30/56 STG Duration Met Snf Goal (LTG) Pt to demonstrate a decrease in falls risk by improving Yanez score by at least seven points, to 50/56 LTG Duration 06/05/24 One Impairment Pt does not have an appropriate home exercise program Short Term Goal (STG) Pt to be independent and compliant with an appropriate HEP 03/04/2024 Patient reports she is doing the seated hip with band exercise, but not the exercise that requires foot in cabinet under sink as it makes her unsteady and not sit to stand as she does that throughout the day. STG Duration 05/08/24 Assessment Summary Assessment Pt good effort today, tolerated increased resistance during ther ex, decreased to 1 UE contact during dorota stepping (future trial SPC) and able complete semitandem stance no UE contact 28-30 sec . Physical Therapy Plan Frequency and Duration Frequency of Treatment 2x/Week Plan of Care Start Date 04/07/24 Plan of Care End Date 06/05/24 Therapeutic Interventions Therapeutic Interventions Balance Training,Coordination Training,Gait Training,Home Exercise Program,Joint Mobilizations,Manual Therapy, Neuromuscular Re-education, Patient/Caregiver Education, Self-Care/Home Management,Soft Tissue Mobilization, Therapeutic Activities, Therapeutic Exercises Modalities Cold Pack/Ice Massage,Electric Stimulation,Hot Packs Next Visit Focus/Plan Next Note Type Treatment Note Next Visit Plan Check if added 1 more appt up to POC 06/05. Next gait increased stride, trial use metronome. Continue initiate LE ex, increase stride gait during gait, progressing balance activities. POC: LE strengthening, balance challenges, gait training, posture
--- NOTE | 2024-05-26 14:30 | PT.OTN ---
Current Diagnoses Low back pain, unspecified (05/26/24) Muscle weakness (generalized) (05/26/24) Unsteadiness on feet (05/26/24) Physical Therapy Treatment Note PT-OP-A Visit Information Start: 01/15/24 16:42 Freq: Status: Active Protocol: Document 05/26/24 13:50 SP (Rec: 05/26/24 14:33 SP [id number]) Out-Patient Physical Therapy Visit Information Visit Information Visit Type Treatment Note Visit Start Time 13:50 Visit Stop Time 14:30 Visit Number 33 (3/10 PN) Number of RN NEONATAL Visits 2 Evaluation Information Evaluation Date 01/15/24 PT-OP-B Current Condition Start: 01/15/24 16:42 Freq: Status: Active Protocol: Document 01/15/24 15:35 DCW (Rec: 01/15/24 17:44 DCW [id number]) Current Condition History of Current Condition Onset Date Multi-year history Current Complaints Low back pain, leg weakness, poor balance History of Current Condition Pt is an 88 year old female very well known to this clinic presenting with worsening low back pain, imbalance, leg weakness, and increased fear of falling. Pt notes she uses her 4WW around the house, which makes her feel more stable, but she cannot get the walker in or out of her car, so she relies on a SPC out in the community. 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 Pt unfortunately lost her earlier this year, and was also diagnosed with breast cancer, although she notes the cancer was excised recently and she believes it is mostly gone. Pt denies any falls, but feels that due to weakness in her legs and her inability to stand up straight, a fall is getting more likely. 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 Treatment Goals Patient/Caregiver Goals Decrease risk of falls PT-OP-C Subjective Start: 01/15/24 16:42 Freq: Status: Active Protocol: Document 05/26/24 13:50 SP (Rec: 05/26/24 14:33 SP [id number]) OP-PT Subjective Patient Comments Patient Comments Pt reported felt fine after last tx. PT-OP-D Balance Start: 01/15/24 16:42 Freq: Status: Active Protocol: Document 04/07/24 13:51 DCW (Rec: 04/07/24 14:09 [facility] [id number]) Balance Tests Yanez Balance Test Yanez Balance Test Score 37/56 Yanez Impairment Rating 20 to 39% Impaired (Score 34- 44) Yanez Balance Assessment Evaluation Sitting to Standing Ability Independent w/Hands Unsupported Stance Safely- 2 minutes Sitting Unsupported, Feet on Floor Safely- 2 minutes Standing to Sitting Ability Assist, Control w/Hands Transfer Ability Safely, Hand Use Unsupported Stance- Eyes Closed Safely, 10 seconds Unsupported Stance- Eyes Open Independent, <30 seconds Reaching Forward Standing Safely, 5 inches Pick- Up Object From Floor Supervision Look Behind Shoulder - Standing Shifts Weight Unilateral Turning 360 Degrees Turns slowly, but safely Unsupported Stance, Alternating Feet on 2 Steps w/Minimum Assist Stair Unsupported Tandem Stance Assist to Step-15 seconds Unilateral Leg Stance Lifts Leg/Unable to Hold Total Score Yanez Total Score (out of 56 points) 37 Yanez Impairment Rating 20 to 39% Impaired (Score 34- 44) PT-OP-E Functional Tests Start: 01/15/24 16:42 Freq: Status: Active Protocol: Document 04/07/24 13:51 DCW (Rec: 04/07/24 14:09 [facility] [id number]) Functional Tests Five Times Sit to Stand Test Score 14.03 Comments with UE use hands on seat of webbed chair, unable without UE use PT-OP-J Posture/Palpation/Skin Start: 01/15/24 16:42 Freq: Status: Active Protocol: Document 04/07/24 13:51 DCW (Rec: 04/07/24 14:09 [facility] [id number]) Posture Evaluation Comments Posture Comments Pt presents with severe scoliosis and worsening excessive kyphosis. PT-OP-M Strength Start: 01/15/24 16:42 Freq: Status: Active Protocol: Document 04/07/24 13:51 DCW (Rec: 04/07/24 14:09 [facility] [id number]) Hip Strength Hip Manual Muscle Testing Right Flexion (L2) 4- Good- Abduction 4 Good Adduction 4 Good Left Flexion (L2) 4- Good- Abduction 4 Good Adduction 4 Good Knee Strength Knee Manual Muscle Testing Right Flexion (S2) 4 Good Extension (L3) 4+ Good+ Left Flexion (S2) 4 Good Extension (L3) 4+ Good+ Ankle/Foot Strength Ankle and Foot Manual Muscle Testing Right Dorsiflexion (L4) 4- Good- Left Dorsiflexion (L4) 4- Good- PT-OP-Q Treatments Start: 01/15/24 16:42 Freq: Status: Active Protocol: Document 05/26/24 13:50 SP (Rec: 05/26/24 14:33 SP [id number]) Therapeutic Exercises Sitting Exercises LAQ Sitting Exercise Name LAQ Side bilateral Resistance 5# leg wt Equipment Used standard mesh chair Reps/Minutes 30 alternating Comments verbal cues to fully extend knee Standing Exercises Hip Abduction Standing Exercise Name initiated today Side bilateral Resistance 5# leg wt Equipment Used //bars Reps/Minutes 30 alternating Comments cued upright posture Hamstring Curls Standing Exercise Name Hamstring Curls Side bilateral Resistance 5# leg wt Equipment Used // bars Reps/Minutes 30 alternating Comments good form Other Exercises Toe Taps Equipment Used light taps, 1 light HR stability Comments cued posturing, increase height step up, 1 foot caught Gait Training Gait Activity AD Device Used hurrycane Distance/Duration 80 ft x2 Treatment Focus increase stride, posture Comments cues upright posture, increase stride pass each other, arm swing with TS/ribcage rotation for support bal and mobility Neuro Re-Education Treatment Balance Activities lateral stepping Details open area gym Equipment carrying hurry cane PRN contact floor Reps/Duration 30 steps x2 laps Comments cues upright posture semi tandem walking Details fwd Equipment inside //bars Reps/Duration 3 lengths Comments only light RUE hand contact during RLE advnacement, no UE LLE advancement retro stepping Details Retro ambulation Equipment inside // bars, outside //bars open area Reps/Duration 3 laps inside //bars, 30 steps Comments 0 UE contact, cued head up Hurdles Details Hurdles: receiprocal stepping Equipment // bars stable 1 UE> hurry cane more challenging during RLE stance time Reps/Duration 6 hurdles x3 laps Comments Forward PT-OP-T Assessment and Plan Start: 01/15/24 16:42 Freq: Status: Active Protocol: Document 05/26/24 13:50 SP (Rec: 05/26/24 14:33 SP [id number]) Physical Therapy Assessment Goals Three Impairment Pt completes a five times sit to stand test in 1:51.63 Short Term Goal (STG) Pt to complete her 5xStS test <60 seconds in order to demonstrate an improvement in activity tolerance. STG Duration Met Custodial Goal (LTG) Pt to complete her 5xStS test <30 seconds without UE assistance in order to demonstrate an improvement in activity tolerance. LTG Duration 06/05/24 Two Impairment Pt presents as a high falls risk, per Yanez score () Short Term Goal (STG) Pt to demonstrate a decrease in falls risk by improving Yanez score by at least seven points, to 30/56 STG Duration Met Manager Goal (LTG) Pt to demonstrate a decrease in falls risk by improving Yanez score by at least seven points, to 50/56 LTG Duration 06/05/24 One Impairment Pt does not have an appropriate home exercise program Short Term Goal (STG) Pt to be independent and compliant with an appropriate HEP 03/04/2024 Patient reports she is doing the seated hip with band exercise, but not the exercise that requires foot in cabinet under sink as it makes her unsteady and not sit to stand as she does that throughout the day. STG Duration 05/08/24 Assessment Summary Assessment Pt good tolerance to resisted exercises today, report hip muscle tiring. Progressed balance outside of //bars no UE support lateral and backward stepping with cues for corrections posture as able and dynamic forward gait with head turns cues for increased stride. Semitandem stepping most challenging, requires 1 UE support. Trialed dorota stepping with less support, use of cane in 1 UE. Physical Therapy Plan Frequency and Duration Frequency of Treatment 2x/Week Plan of Care Start Date 04/07/24 Plan of Care End Date 06/05/24 Therapeutic Interventions Therapeutic Interventions Balance Training,Coordination Training,Gait Training,Home Exercise Program,Joint Mobilizations,Manual Therapy, Neuromuscular Re-education, Patient/Caregiver Education, Self-Care/Home Management,Soft Tissue Mobilization, Therapeutic Activities, Therapeutic Exercises Modalities Cold Pack/Ice Massage,Electric Stimulation,Hot Packs Next Visit Focus/Plan Next Note Type Progress Note Next Visit Plan Next visit is last scheduled, provided paper last tx to add 1-2 more appts. Check if added appts up to POC 06/05. Next gait increased stride, trial use metronome. Continue progression LE ex strengthening, increase stride gait during gait, progressing balance activities. POC: LE strengthening, balance challenges, gait training, posture
--- NOTE | 2024-05-30 14:32 | PT.OTN ---
Current Diagnoses Low back pain, unspecified (05/30/24) Muscle weakness (generalized) (05/30/24) Unsteadiness on feet (05/30/24) Physical Therapy Treatment Note PT-OP-A Visit Information Start: 01/15/24 16:42 Freq: Status: Active Protocol: Document 05/30/24 13:45 DCW (Rec: 05/30/24 14:31 DCW [id number]) Out-Patient Physical Therapy Visit Information Visit Information Visit Type Treatment Note Visit Start Time 13:45 Visit Stop Time 14:30 Visit Number 34 (4/10 PN) Number of DRY PLASTERER Visits 9 Evaluation Information Evaluation Date 01/15/24 PT-OP-B Current Condition Start: 01/15/24 16:42 Freq: Status: Active Protocol: Document 01/15/24 15:35 DCW (Rec: 01/15/24 17:44 DCW [id number]) Current Condition History of Current Condition Onset Date Multi-year history Current Complaints Low back pain, leg weakness, poor balance History of Current Condition Pt is an 88 year old female very well known to this clinic presenting with worsening low back pain, imbalance, leg weakness, and increased fear of falling. Pt notes she uses her 4WW around the house, which makes her feel more stable, but she cannot get the walker in or out of her car, so she relies on a SPC out in the community. 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 Pt unfortunately lost her earlier this year, and was also diagnosed with breast cancer, although she notes the cancer was excised recently and she believes it is mostly gone. Pt denies any falls, but feels that due to weakness in her legs and her inability to stand up straight, a fall is getting more likely. 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 Treatment Goals Patient/Caregiver Goals Decrease risk of falls PT-OP-C Subjective Start: 01/15/24 16:42 Freq: Status: Active Protocol: Document 05/30/24 13:45 DCW (Rec: 05/30/24 14:31 DCW [id number]) OP-PT Subjective Patient Comments Patient Comments Pt doing well today. PT-OP-D Balance Start: 01/15/24 16:42 Freq: Status: Active Protocol: Document 04/07/24 13:51 DCW (Rec: 04/07/24 14:09 [facility] [id number]) Balance Tests Yanez Balance Test Yanez Balance Test Score 37/56 Yanez Impairment Rating 20 to 39% Impaired (Score 34- 44) Yanez Balance Assessment Evaluation Sitting to Standing Ability Independent w/Hands Unsupported Stance Safely- 2 minutes Sitting Unsupported, Feet on Floor Safely- 2 minutes Standing to Sitting Ability Assist, Control w/Hands Transfer Ability Safely, Hand Use Unsupported Stance- Eyes Closed Safely, 10 seconds Unsupported Stance- Eyes Open Independent, <30 seconds Reaching Forward Standing Safely, 5 inches Pick- Up Object From Floor Supervision Look Behind Shoulder - Standing Shifts Weight Unilateral Turning 360 Degrees Turns slowly, but safely Unsupported Stance, Alternating Feet on 2 Steps w/Minimum Assist Stair Unsupported Tandem Stance Assist to Step-15 seconds Unilateral Leg Stance Lifts Leg/Unable to Hold Total Score Yanez Total Score (out of 56 points) 37 Yanez Impairment Rating 20 to 39% Impaired (Score 34- 44) PT-OP-E Functional Tests Start: 01/15/24 16:42 Freq: Status: Active Protocol: Document 04/07/24 13:51 DCW (Rec: 04/07/24 14:09 [facility] [id number]) Functional Tests Five Times Sit to Stand Test Score 14.03 Comments with UE use hands on seat of webbed chair, unable without UE use PT-OP-J Posture/Palpation/Skin Start: 01/15/24 16:42 Freq: Status: Active Protocol: Document 04/07/24 13:51 DCW (Rec: 04/07/24 14:09 [facility] [id number]) Posture Evaluation Comments Posture Comments Pt presents with severe scoliosis and worsening excessive kyphosis. PT-OP-M Strength Start: 01/15/24 16:42 Freq: Status: Active Protocol: Document 04/07/24 13:51 DCW (Rec: 04/07/24 14:09 [facility] [id number]) Hip Strength Hip Manual Muscle Testing Right Flexion (L2) 4- Good- Abduction 4 Good Adduction 4 Good Left Flexion (L2) 4- Good- Abduction 4 Good Adduction 4 Good Knee Strength Knee Manual Muscle Testing Right Flexion (S2) 4 Good Extension (L3) 4+ Good+ Left Flexion (S2) 4 Good Extension (L3) 4+ Good+ Ankle/Foot Strength Ankle and Foot Manual Muscle Testing Right Dorsiflexion (L4) 4- Good- Left Dorsiflexion (L4) 4- Good- PT-OP-Q Treatments Start: 01/15/24 16:42 Freq: Status: Active Protocol: Document 05/30/24 13:45 DCW (Rec: 05/30/24 14:31 DCW [id number]) Gym Equipment Shuttle Balance Red Details WBOS, Staggered Neuro Re-Education Treatment Balance Activities semi tandem walking Details fwd Equipment inside //bars Reps/Duration 3 lengths Comments only light RUE hand contact during RLE advnacement, no UE LLE advancement step up taps Details CGA Surface Black foam Equipment 8 step Reps/Duration 30 alternating BLE s Comments light rail SLS Details SLS Equipment // bars retro stepping Details Retro ambulation Equipment inside // bars, outside //bars open area Reps/Duration 3 laps inside //bars, 30 steps Comments 0 UE contact, cued head up Hurdles Details Hurdles Equipment // bars, UE support Reps/Duration 6 hurdles x3 laps each direction Comments Forward, Lateral Foam Details Foam stance, EO/EC, X1 Surface AirEx PT-OP-T Assessment and Plan Start: 01/15/24 16:42 Freq: Status: Active Protocol: Document 05/30/24 13:45 DCW (Rec: 05/30/24 14:31 DCW [id number]) Physical Therapy Assessment Impairments Impairments Activity Tolerance,Balance, Functional Activities, Functional Mobility,Gait,Pain, Posture,Soft Tissue Mobility, Strength,Tone Goals Three Impairment Pt completes a five times sit to stand test in 1:51.63 Short Term Goal (STG) Pt to complete her 5xStS test <60 seconds in order to demonstrate an improvement in activity tolerance. STG Duration Met School Athletic Director Goal (LTG) Pt to complete her 5xStS test <30 seconds without UE assistance in order to demonstrate an improvement in activity tolerance. LTG Duration 06/05/24 Two Impairment Pt presents as a high falls risk, per Yanez score () Short Term Goal (STG) Pt to demonstrate a decrease in falls risk by improving Yanez score by at least seven points, to STG Duration Met School Athletic Director Goal (LTG) Pt to demonstrate a decrease in falls risk by improving Yanez score by at least seven points, to 50/56 LTG Duration 06/05/24 One Impairment Pt does not have an appropriate home exercise program Short Term Goal (STG) Pt to be independent and compliant with an appropriate HEP 03/04/2024 Patient reports she is doing the seated hip with band exercise, but not the exercise that requires foot in cabinet under sink as it makes her unsteady and not sit to stand as she does that throughout the day. STG Duration 05/08/24 Assessment Summary Assessment Pt tolerated well, continue to focus on increased activity toelrance and balance. Physical Therapy Plan Frequency and Duration Frequency of Treatment 2x/Week Plan of Care Start Date 04/07/24 Plan of Care End Date 06/05/24 Therapeutic Interventions Therapeutic Interventions Balance Training,Coordination Training,Gait Training,Home Exercise Program,Joint Mobilizations,Manual Therapy, Neuromuscular Re-education, Patient/Caregiver Education, Self-Care/Home Management,Soft Tissue Mobilization, Therapeutic Activities, Therapeutic Exercises Modalities Cold Pack/Ice Massage,Electric Stimulation,Hot Packs Next Visit Focus/Plan Next Note Type Progress Note Next Visit Plan Next visit is last scheduled, provided paper last tx to add 1-2 more appts. Check if added appts up to POC 06/05. Next gait increased stride, trial use metronome. Continue progression LE ex strengthening, increase stride gait during gait, progressing balance activities. POC: LE strengthening, balance challenges, gait training, posture
--- NOTE | 2024-06-17 17:44 | PT.OTN ---
Current Diagnoses Low back pain, unspecified (06/17/24) Muscle weakness (generalized) (06/17/24) Unsteadiness on feet (06/17/24) Physical Therapy Treatment Note PT-OP-A Visit Information Start: 01/15/24 16:42 Freq: Status: Active Protocol: Document 06/17/24 17:00 DCW (Rec: 06/17/24 17:44 DCW [id number]) Out-Patient Physical Therapy Visit Information Visit Information Visit Type Progress Note Visit Start Time 17:00 Visit Stop Time 17:45 Visit Number 35 Number of ELEVATOR MECHANIC APPRENTICE Visits 0 Evaluation Information Evaluation Date 01/15/24 PT-OP-B Current Condition Start: 01/15/24 16:42 Freq: Status: Active Protocol: Document 01/15/24 15:35 DCW (Rec: 01/15/24 17:44 DCW [id number]) Current Condition History of Current Condition Onset Date Multi-year history Current Complaints Low back pain, leg weakness, poor balance History of Current Condition Pt is an 88 year old female very well known to this clinic presenting with worsening low back pain, imbalance, leg weakness, and increased fear of falling. Pt notes she uses her 4WW around the house, which makes her feel more stable, but she cannot get the walker in or out of her car, so she relies on a SPC out in the community. 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 Pt unfortunately lost her earlier this year, and was also diagnosed with breast cancer, although she notes the cancer was excised recently and she believes it is mostly gone. Pt denies any falls, but feels that due to weakness in her legs and her inability to stand up straight, a fall is getting more likely. 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 Treatment Goals Patient/Caregiver Goals Decrease risk of falls PT-OP-C Subjective Start: 01/15/24 16:42 Freq: Status: Active Protocol: Document 06/17/24 17:00 DCW (Rec: 06/17/24 17:44 DCW [id number]) OP-PT Subjective Patient Comments Patient Comments Denies any recent falls, admits she tripped on a rug last night, but was able to catch herself. Notes she may have to get rid of her rug. PT-OP-D Balance Start: 01/15/24 16:42 Freq: Status: Active Protocol: Document 06/17/24 17:00 DCW (Rec: 06/17/24 17:23 DCW [id number]) Balance Tests Yanez Balance Test Yanez Balance Test Score 39/56 Yanez Impairment Rating 20 to 39% Impaired (Score 34- 44) Yanez Balance Assessment Evaluation Sitting to Standing Ability Independent w/Hands Unsupported Stance Safely- 2 minutes Sitting Unsupported, Feet on Floor Safely- 2 minutes Standing to Sitting Ability Assist, Control w/Hands Transfer Ability Safely, Hand Use Unsupported Stance- Eyes Closed Safely, 10 seconds Unsupported Stance- Eyes Open Supervision to maintain Reaching Forward Standing Safely, 5 inches Pick- Up Object From Floor Supervision Look Behind Shoulder - Standing Shifts Weight Unilateral Turning 360 Degrees Turns slowly, but safely Unsupported Stance, Alternating Feet on 4 Steps w/Supervision Stair Unsupported Tandem Stance Assist to Step-15 seconds Unilateral Leg Stance Lifts Leg/Unable to Hold Total Score Yanez Total Score (out of 56 points) 39 Yanez Impairment Rating 20 to 39% Impaired (Score 34- 44) PT-OP-E Functional Tests Start: 01/15/24 16:42 Freq: Status: Active Protocol: Document 06/17/24 17:00 DCW (Rec: 06/17/24 17:23 DCW [id number]) Functional Tests Five Times Sit to Stand Test Score 13.82 Comments minimal UE use hands on seat of webbed chair, unable without UE use PT-OP-J Posture/Palpation/Skin Start: 01/15/24 16:42 Freq: Status: Active Protocol: Document 04/07/24 13:51 DCW (Rec: 04/07/24 14:09 DCW [id number]) Posture Evaluation Comments Posture Comments Pt presents with severe scoliosis and worsening excessive kyphosis. PT-OP-M Strength Start: 01/15/24 16:42 Freq: Status: Active Protocol: Document 06/17/24 17:00 DCW (Rec: 06/17/24 17:23 DCW [id number]) Hip Strength Hip Manual Muscle Testing Right Flexion (L2) 4 Good Abduction 4 Good Adduction 4 Good Left Flexion (L2) 4 Good Abduction 4 Good Adduction 4 Good Knee Strength Knee Manual Muscle Testing Right Flexion (S2) 4+ Good+ Extension (L3) 4+ Good+ Left Flexion (S2) 4+ Good+ Extension (L3) 4+ Good+ Ankle/Foot Strength Ankle and Foot Manual Muscle Testing Right Dorsiflexion (L4) 4 Good Left Dorsiflexion (L4) 4- Good- PT-OP-Q Treatments Start: 01/15/24 16:42 Freq: Status: Active Protocol: Document 06/17/24 17:00 DCW (Rec: 06/17/24 17:44 DCW [id number]) Gym Equipment Shuttle Balance Red Details WBOS, Staggered PT-OP-T Assessment and Plan Start: 01/15/24 16:42 Freq: Status: Active Protocol: Document 06/17/24 17:00 DCW (Rec: 06/17/24 17:44 DCW [id number]) Physical Therapy Assessment Impairments Impairments Activity Tolerance,Balance, Functional Activities, Functional Mobility,Gait,Pain, Posture,Soft Tissue Mobility, Strength,Tone Goals Three Impairment Pt completes a five times sit to stand test in 1:51.63 Short Term Goal (STG) Pt to complete her 5xStS test <60 seconds in order to demonstrate an improvement in activity tolerance. STG Duration Met [facility]cf Goal (LTG) Pt to complete her 5xStS test <30 seconds without UE assistance in order to demonstrate an improvement in activity tolerance. LTG Duration 08/17/24 Two Impairment Pt presents as a high falls risk, per Yanez score (23/56) Short Term Goal (STG) Pt to demonstrate a decrease in falls risk by improving Yanez score by at least seven points, to 30/56 STG Duration Met Ore Charger Goal (LTG) Pt to demonstrate a decrease in falls risk by improving Yanez score by at least seven points, to 50/56 LTG Duration 08/17/24 One Impairment Pt does not have an appropriate home exercise program Short Term Goal (STG) Pt to be independent and compliant with an appropriate HEP 03/04/2024 Patient reports she is doing the seated hip with band exercise, but not the exercise that requires foot in cabinet under sink as it makes her unsteady and not sit to stand as she does that throughout the day. STG Duration 07/18/24 Assessment Summary Assessment Pt continues to show some improvements in all areas of testing, but does appear to be approaching a progress plateau. Will continue to work on balance, strength, and activity tolerance, with understanding that she will likely be discharged at end of POC, unless pt makes unexpected gains. Physical Therapy Plan Frequency and Duration Frequency of Treatment 2x/Week Plan of Care Start Date 06/17/24 Plan of Care End Date 08/17/24 Therapeutic Interventions Therapeutic Interventions Balance Training,Coordination Training,Gait Training,Home Exercise Program,Joint Mobilizations,Manual Therapy, Neuromuscular Re-education, Patient/Caregiver Education, Self-Care/Home Management,Soft Tissue Mobilization, Therapeutic Activities, Therapeutic Exercises Modalities Cold Pack/Ice Massage,Electric Stimulation,Hot Packs Next Visit Focus/Plan Next Note Type Treatment Note Next Visit Plan Next gait increased stride, trial use metronome. Continue progression LE ex strengthening, increase stride gait during gait, progressing balance activities. POC: LE strengthening, balance challenges, gait training, posture
--- NOTE | 2024-06-17 17:45 | PT.OPPOC ---
Physical, Occupational & Speech Therapy At [facility] Current Diagnoses Low back pain, unspecified (06/17/24) Muscle weakness (generalized) (06/17/24) Unsteadiness on feet (06/17/24) Visit Care Team Role Provider Type Jia Sheridan MD Attending Provider Physician Family Provider Primary Care Provider Referring Provider Specialty: Family Practice Address: [address] [place] [address], [facility] [place], [place], [facility] Email: [email or web address] Plan Of Care PT-OP-B Current Condition Start: 01/15/24 16:42 Freq: Status: Active Protocol: Document 01/15/24 15:35 DCW (Rec: 01/15/24 17:44 DCW [id number]) Current Condition History of Current Condition Onset Date Multi-year history Current Complaints Low back pain, leg weakness, poor balance History of Current Condition Pt is an 88 year old female very well known to this clinic presenting with worsening low back pain, imbalance, leg weakness, and increased fear of falling. Pt notes she uses her 4WW around the house, which makes her feel more stable, but she cannot get the walker in or out of her car, so she relies on a SPC out in the community. 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 Pt unfortunately lost her earlier this year, and was also diagnosed with breast cancer, although she notes the cancer was excised recently and she believes it is mostly gone. Pt denies any falls, but feels that due to weakness in her legs and her inability to stand up straight, a fall is getting more likely. Low back pain is typically worse with lying supine in bed, bending over, or trying to warehouse picker something heavy. Treatment Goals Patient/Caregiver Goals Decrease risk of falls PT-OP-T Assessment and Plan Start: 01/15/24 16:42 Freq: Status: Active Protocol: Document 06/17/24 17:00 DCW (Rec: 06/17/24 17:44 DCW [id number]) Physical Therapy Assessment Impairments Impairments Activity Tolerance,Balance, Functional Activities, Functional Mobility,Gait,Pain, Posture,Soft Tissue Mobility, Strength,Tone Goals Three Impairment Pt completes a five times sit to stand test in 1:51.63 Short Term Goal (STG) Pt to complete her 5xStS test <60 seconds in order to demonstrate an improvement in activity tolerance. STG Duration Met Nursing Home Goal (LTG) Pt to complete her 5xStS test <30 seconds without UE assistance in order to demonstrate an improvement in activity tolerance. LTG Duration 08/17/24 Two Impairment Pt presents as a high falls risk, per Yanez score () Short Term Goal (STG) Pt to demonstrate a decrease in falls risk by improving Yanez score by at least seven points, to 3056 STG Duration Met Nursing Home Goal (LTG) Pt to demonstrate a decrease in falls risk by improving Yanez score by at least seven points, to 5056 LTG Duration 08/17/24 One Impairment Pt does not have an appropriate home exercise program Short Term Goal (STG) Pt to be independent and compliant with an appropriate HEP 03/04/2024 Patient reports she is doing the seated hip with band exercise, but not the exercise that requires foot in cabinet under sink as it makes her unsteady and not sit to stand as she does that throughout the day. STG Duration 07/18/24 Assessment Summary Assessment Pt continues to show some improvements in all areas of testing, but does appear to be approaching a progress plateau. Will continue to work on balance, strength, and activity tolerance, with understanding that she will likely be discharged at end of POC, unless pt makes unexpected gains. Physical Therapy Plan Frequency and Duration Frequency of Treatment 2x/Week Plan of Care Start Date 06/17/24 Plan of Care End Date 08/17/24 Therapeutic Interventions Therapeutic Interventions Balance Training,Coordination Training,Gait Training,Home Exercise Program,Joint Mobilizations,Manual Therapy, Neuromuscular Re-education, Patient/Caregiver Education, Self-Care/Home Management,Soft Tissue Mobilization, Therapeutic Activities, Therapeutic Exercises Modalities Cold Pack/Ice Massage,Electric Stimulation,Hot Packs Next Visit Focus/Plan Next Note Type Treatment Note Next Visit Plan Next gait increased stride, trial use metronome. Continue progression LE ex strengthening, increase stride gait during gait, progressing balance activities. POC: LE strengthening, balance challenges, gait training, posture Plan of Care Dates Plan of Care Start Date 06/17/24 Plan of Care End Date 08/17/24 Electronically Signed by: Wallace Wilson, PT 06/17/24 1745 If you are in agreement with this Plan of Care, please return a signed and dated copy. I have reviewed this Plan of Care and certify that the skilled therapy services above are required to meet the patient?s needs. Physician Signature Date Printed Name and Credentials Clinical Instructor Signature Printed Name and Credentials
--- NOTE | 2024-06-20 14:32 | PT.OTN ---
Current Diagnoses Low back pain, unspecified (06/20/24) Muscle weakness (generalized) (06/20/24) Unsteadiness on feet (06/20/24) Physical Therapy Treatment Note PT-OP-A Visit Information Start: 01/15/24 16:42 Freq: Status: Active Protocol: Document 06/20/24 13:50 DCW (Rec: 06/20/24 14:32 DCW [id number]) Out-Patient Physical Therapy Visit Information Visit Information Visit Type Treatment Note Visit Start Time 13:50 Visit Stop Time 14:30 Visit Number 36 Number of DEPUTY JUVENILE OFFICER Visits 0 Evaluation Information Evaluation Date 01/15/24 PT-OP-B Current Condition Start: 01/15/24 16:42 Freq: Status: Active Protocol: Document 01/15/24 15:35 DCW (Rec: 01/15/24 17:44 DCW [id number]) Current Condition History of Current Condition Onset Date Multi-year history Current Complaints Low back pain, leg weakness, poor balance History of Current Condition Pt is an 88 year old female very well known to this clinic presenting with worsening low back pain, imbalance, leg weakness, and increased fear of falling. Pt notes she uses her 4WW around the house, which makes her feel more stable, but she cannot get the walker in or out of her car, so she relies on a SPC out in the community. 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 Pt unfortunately lost her earlier this year, and was also diagnosed with breast cancer, although she notes the cancer was excised recently and she believes it is mostly gone. Pt denies any falls, but feels that due to weakness in her legs and her inability to stand up straight, a fall is getting more likely. Low back pain is typically worse with lying supine in bed, bending over, or trying to miner pick something heavy. Treatment Goals Patient/Caregiver Goals Decrease risk of falls PT-OP-C Subjective Start: 01/15/24 16:42 Freq: Status: Active Protocol: Document 06/20/24 13:50 DCW (Rec: 06/20/24 14:32 DCW [id number]) OP-PT Subjective Patient Comments Patient Comments I'm alright I guess, it's been an interesting 3 days. PT-OP-D Balance Start: 01/15/24 16:42 Freq: Status: Active Protocol: Document 06/17/24 17:00 DCW (Rec: 06/17/24 17:23 DCW [id number]) Balance Tests Yanez Balance Test Yanez Balance Test Score 39/56 Yanez Impairment Rating 20 to 39% Impaired (Score 34- 44) Yanez Balance Assessment Evaluation Sitting to Standing Ability Independent w/Hands Unsupported Stance Safely- 2 minutes Sitting Unsupported, Feet on Floor Safely- 2 minutes Standing to Sitting Ability Assist, Control w/Hands Transfer Ability Safely, Hand Use Unsupported Stance- Eyes Closed Safely, 10 seconds Unsupported Stance- Eyes Open Supervision to maintain Reaching Forward Standing Safely, 5 inches Pick- Up Object From Floor Supervision Look Behind Shoulder - Standing Shifts Weight Unilateral Turning 360 Degrees Turns slowly, but safely Unsupported Stance, Alternating Feet on 4 Steps w/Supervision Stair Unsupported Tandem Stance Assist to Step-15 seconds Unilateral Leg Stance Lifts Leg/Unable to Hold Total Score Yanez Total Score (out of 56 points) 39 Yanez Impairment Rating 20 to 39% Impaired (Score 34- 44) PT-OP-E Functional Tests Start: 01/15/24 16:42 Freq: Status: Active Protocol: Document 06/17/24 17:00 DCW (Rec: 06/17/24 17:23 DCW [id number]) Functional Tests Five Times Sit to Stand Test Score 13.82 Comments minimal UE use hands on seat of webbed chair, unable without UE use PT-OP-J Posture/Palpation/Skin Start: 01/15/24 16:42 Freq: Status: Active Protocol: Document 04/07/24 13:51 DCW (Rec: 04/07/24 14:09 DCW [id number]) Posture Evaluation Comments Posture Comments Pt presents with severe scoliosis and worsening excessive kyphosis. PT-OP-M Strength Start: 01/15/24 16:42 Freq: Status: Active Protocol: Document 06/17/24 17:00 DCW (Rec: 06/17/24 17:23 DCW [id number]) Hip Strength Hip Manual Muscle Testing Right Flexion (L2) 4 Good Abduction 4 Good Adduction 4 Good Left Flexion (L2) 4 Good Abduction 4 Good Adduction 4 Good Knee Strength Knee Manual Muscle Testing Right Flexion (S2) 4+ Good+ Extension (L3) 4+ Good+ Left Flexion (S2) 4+ Good+ Extension (L3) 4+ Good+ Ankle/Foot Strength Ankle and Foot Manual Muscle Testing Right Dorsiflexion (L4) 4 Good Left Dorsiflexion (L4) 4- Good- PT-OP-Q Treatments Start: 01/15/24 16:42 Freq: Status: Active Protocol: Document 06/20/24 13:50 DCW (Rec: 06/20/24 14:32 DCW [id number]) Gym Equipment Shuttle Balance Red Details WBOS, Staggered Neuro Re-Education Treatment Balance Activities SLS Details SLS Equipment // bars Hurdles Details Hurdles Equipment // bars, UE support Reps/Duration 6 hurdles x3 laps each direction Comments Forward, Lateral Foam Details Foam stance, EO/EC, X1 Surface AirEx Tandem Details Semi Tandem Stance Equipment // bars PT-OP-T Assessment and Plan Start: 01/15/24 16:42 Freq: Status: Active Protocol: Document 06/20/24 13:50 DCW (Rec: 06/20/24 14:32 DCW [id number]) Physical Therapy Assessment Impairments Impairments Activity Tolerance,Balance, Functional Activities, Functional Mobility,Gait,Pain, Posture,Soft Tissue Mobility, Strength,Tone Goals Three Impairment Pt completes a five times sit to stand test in 1:51.63 Short Term Goal (STG) Pt to complete her 5xStS test <60 seconds in order to demonstrate an improvement in activity tolerance. STG Duration Met Mcfp Goal (LTG) Pt to complete her 5xStS test <30 seconds without UE assistance in order to demonstrate an improvement in activity tolerance. LTG Duration 08/17/24 Two Impairment Pt presents as a high falls risk, per Yanez score (23/56) Short Term Goal (STG) Pt to demonstrate a decrease in falls risk by improving Yanez score by at least seven points, to 30/56 STG Duration Met Mcfp Goal (LTG) Pt to demonstrate a decrease in falls risk by improving Yanez score by at least seven points, to 50/56 LTG Duration 08/17/24 One Impairment Pt does not have an appropriate home exercise program Short Term Goal (STG) Pt to be independent and compliant with an appropriate HEP 03/04/2024 Patient reports she is doing the seated hip with band exercise, but not the exercise that requires foot in cabinet under sink as it makes her unsteady and not sit to stand as she does that throughout the day. STG Duration 07/18/24 Assessment Summary Assessment Good response to activity today, pt does appear to be more confident with increased balance challenges, including shuttle balance and hurdles. Continue to focus on static and dynamic balance challenges . Physical Therapy Plan Frequency and Duration Frequency of Treatment 2x/Week Plan of Care Start Date 06/17/24 Plan of Care End Date 08/17/24 Therapeutic Interventions Therapeutic Interventions Balance Training,Coordination Training,Gait Training,Home Exercise Program,Joint Mobilizations,Manual Therapy, Neuromuscular Re-education, Patient/Caregiver Education, Self-Care/Home Management,Soft Tissue Mobilization, Therapeutic Activities, Therapeutic Exercises Modalities Cold Pack/Ice Massage,Electric Stimulation,Hot Packs Next Visit Focus/Plan Next Note Type Treatment Note Next Visit Plan Next gait increased stride, trial use metronome. Continue progression LE ex strengthening, increase stride gait during gait, progressing balance activities. POC: LE strengthening, balance challenges, gait training, posture
--- NOTE | 2024-06-24 16:10 | PT.OTN ---
Current Diagnoses Low back pain, unspecified (06/24/24) Muscle weakness (generalized) (06/24/24) Unsteadiness on feet (06/24/24) Physical Therapy Treatment Note PT-OP-A Visit Information Start: 01/15/24 16:42 Freq: Status: Active Protocol: Document 06/24/24 15:22 DCW (Rec: 06/24/24 16:10 DCW [id number]) Out-Patient Physical Therapy Visit Information Visit Information Visit Type Treatment Note Visit Start Time 15:22 Visit Stop Time 16:00 Visit Number 37 Number of BUILDING PERFORMANCE SPECIALIST Visits 0 Evaluation Information Evaluation Date 01/15/24 PT-OP-B Current Condition Start: 01/15/24 16:42 Freq: Status: Active Protocol: Document 01/15/24 15:35 DCW (Rec: 01/15/24 17:44 DCW [id number]) Current Condition History of Current Condition Onset Date Multi-year history Current Complaints Low back pain, leg weakness, poor balance History of Current Condition Pt is an 88 year old female very well known to this clinic presenting with worsening low back pain, imbalance, leg weakness, and increased fear of falling. Pt notes she uses her 4WW around the house, which makes her feel more stable, but she cannot get the walker in or out of her car, so she relies on a SPC out in the community. 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 Pt unfortunately lost her earlier this year, and was also diagnosed with breast cancer, although she notes the cancer was excised recently and she believes it is mostly gone. Pt denies any falls, but feels that due to weakness in her legs and her inability to stand up straight, a fall is getting more likely. 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 Treatment Goals Patient/Caregiver Goals Decrease risk of falls PT-OP-C Subjective Start: 01/15/24 16:42 Freq: Status: Active Protocol: Document 06/24/24 15:22 DCW (Rec: 06/24/24 16:10 DCW [id number]) OP-PT Subjective Patient Comments Patient Comments Physically I'm fairly well, mentally I'm very angry. PT-OP-D Balance Start: 01/15/24 16:42 Freq: Status: Active Protocol: Document 06/17/24 17:00 DCW (Rec: 06/17/24 17:23 DCW [id number]) Balance Tests Yanez Balance Test Yanez Balance Test Score 39/56 Yanez Impairment Rating 20 to 39% Impaired (Score 34- 44) Yanez Balance Assessment Evaluation Sitting to Standing Ability Independent w/Hands Unsupported Stance Safely- 2 minutes Sitting Unsupported, Feet on Floor Safely- 2 minutes Standing to Sitting Ability Assist, Control w/Hands Transfer Ability Safely, Hand Use Unsupported Stance- Eyes Closed Safely, 10 seconds Unsupported Stance- Eyes Open Supervision to maintain Reaching Forward Standing Safely, 5 inches Pick- Up Object From Floor Supervision Look Behind Shoulder - Standing Shifts Weight Unilateral Turning 360 Degrees Turns slowly, but safely Unsupported Stance, Alternating Feet on 4 Steps w/Supervision Stair Unsupported Tandem Stance Assist to Step-15 seconds Unilateral Leg Stance Lifts Leg/Unable to Hold Total Score Yanez Total Score (out of 56 points) 39 Yanez Impairment Rating 20 to 39% Impaired (Score 34- 44) PT-OP-E Functional Tests Start: 01/15/24 16:42 Freq: Status: Active Protocol: Document 06/17/24 17:00 DCW (Rec: 06/17/24 17:23 DCW [id number]) Functional Tests Five Times Sit to Stand Test Score 13.82 Comments minimal UE use hands on seat of webbed chair, unable without UE use PT-OP-J Posture/Palpation/Skin Start: 01/15/24 16:42 Freq: Status: Active Protocol: Document 04/07/24 13:51 DCW (Rec: 04/07/24 14:09 DCW [id number]) Posture Evaluation Comments Posture Comments Pt presents with severe scoliosis and worsening excessive kyphosis. PT-OP-M Strength Start: 01/15/24 16:42 Freq: Status: Active Protocol: Document 06/17/24 17:00 DCW (Rec: 06/17/24 17:23 DCW [id number]) Hip Strength Hip Manual Muscle Testing Right Flexion (L2) 4 Good Abduction 4 Good Adduction 4 Good Left Flexion (L2) 4 Good Abduction 4 Good Adduction 4 Good Knee Strength Knee Manual Muscle Testing Right Flexion (S2) 4+ Good+ Extension (L3) 4+ Good+ Left Flexion (S2) 4+ Good+ Extension (L3) 4+ Good+ Ankle/Foot Strength Ankle and Foot Manual Muscle Testing Right Dorsiflexion (L4) 4 Good Left Dorsiflexion (L4) 4- Good- PT-OP-Q Treatments Start: 01/15/24 16:42 Freq: Status: Active Protocol: Document 06/24/24 15:22 DCW (Rec: 06/24/24 16:10 DCW [id number]) Gym Equipment Shuttle Balance Red Details WBOS, Staggered Therapeutic Exercises Standing Exercises Hamstring Curls Standing Exercise Name Hamstring Curls Side bilateral Resistance 4# leg wt Equipment Used // bars Neuro Re-Education Treatment Balance Activities step up taps Details Toe-taps Equipment 6 step Reps/Duration 4# Comments light rail SLS Details SLS Equipment // bars Hurdles Details Hurdles Equipment // bars, UE support Reps/Duration 6 hurdles x3 laps each direction Comments Forward, Lateral Foam Details Foam stance, EO/EC Surface AirEx Tandem Details Semi Tandem Stance Equipment // bars PT-OP-T Assessment and Plan Start: 01/15/24 16:42 Freq: Status: Active Protocol: Document 06/24/24 15:22 DCW (Rec: 06/24/24 16:10 DCW [id number]) Physical Therapy Assessment Impairments Impairments Activity Tolerance,Balance, Functional Activities, Functional Mobility,Gait,Pain, Posture,Soft Tissue Mobility, Strength,Tone Goals Three Impairment Pt completes a five times sit to stand test in 1:51.63 Short Term Goal (STG) Pt to complete her 5xStS test <60 seconds in order to demonstrate an improvement in activity tolerance. STG Duration Met Parking Meter Installer Goal (LTG) Pt to complete her 5xStS test <30 seconds without UE assistance in order to demonstrate an improvement in activity tolerance. LTG Duration 08/17/24 Two Impairment Pt presents as a high falls risk, per Yanez score (23/56) Short Term Goal (STG) Pt to demonstrate a decrease in falls risk by improving Yanez score by at least seven points, to 30/56 STG Duration Met Parking Meter Installer Goal (LTG) Pt to demonstrate a decrease in falls risk by improving Yanez score by at least seven points, to 50/56 LTG Duration 08/17/24 One Impairment Pt does not have an appropriate home exercise program Short Term Goal (STG) Pt to be independent and compliant with an appropriate HEP 03/04/2024 Patient reports she is doing the seated hip with band exercise, but not the exercise that requires foot in cabinet under sink as it makes her unsteady and not sit to stand as she does that throughout the day. STG Duration 07/18/24 Assessment Summary Assessment Continue focus on balance and bigger movements, work on increased stride length in hopes to improve gait speed. Tolerated treatment well. Physical Therapy Plan Frequency and Duration Frequency of Treatment 2x/Week Plan of Care Start Date 06/17/24 Plan of Care End Date 08/17/24 Therapeutic Interventions Therapeutic Interventions Balance Training,Coordination Training,Gait Training,Home Exercise Program,Joint Mobilizations,Manual Therapy, Neuromuscular Re-education, Patient/Caregiver Education, Self-Care/Home Management,Soft Tissue Mobilization, Therapeutic Activities, Therapeutic Exercises Modalities Cold Pack/Ice Massage,Electric Stimulation,Hot Packs Next Visit Focus/Plan Next Note Type Treatment Note Next Visit Plan Continue progression LE ex strengthening, increase stride gait during gait, progressing balance activities. POC: LE strengthening, balance challenges, gait training, posture
--- NOTE | 2024-06-27 15:59 | PT.OTN ---
Current Diagnoses Low back pain, unspecified (06/27/24) Muscle weakness (generalized) (06/27/24) Unsteadiness on feet (06/27/24) Physical Therapy Treatment Note PT-OP-A Visit Information Start: 01/15/24 16:42 Freq: Status: Active Protocol: Document 06/27/24 15:19 DCW (Rec: 06/27/24 15:59 DCW [id number]) Out-Patient Physical Therapy Visit Information Visit Information Visit Type Treatment Note Visit Start Time 15:19 Visit Stop Time 16:00 Visit Number 38 Number of CLIN APPLICATION SPECIALIST Visits 0 Evaluation Information Evaluation Date 01/15/24 PT-OP-B Current Condition Start: 01/15/24 16:42 Freq: Status: Active Protocol: Document 01/15/24 15:35 DCW (Rec: 01/15/24 17:44 DCW [id number]) Current Condition History of Current Condition Onset Date Multi-year history Current Complaints Low back pain, leg weakness, poor balance History of Current Condition Pt is an 88 year old female very well known to this clinic presenting with worsening low back pain, imbalance, leg weakness, and increased fear of falling. Pt notes she uses her 4WW around the house, which makes her feel more stable, but she cannot get the walker in or out of her car, so she relies on a SPC out in the community. 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 Pt unfortunately lost her earlier this year, and was also diagnosed with breast cancer, although she notes the cancer was excised recently and she believes it is mostly gone. Pt denies any falls, but feels that due to weakness in her legs and her inability to stand up straight, a fall is getting more likely. 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 Treatment Goals Patient/Caregiver Goals Decrease risk of falls PT-OP-C Subjective Start: 01/15/24 16:42 Freq: Status: Active Protocol: Document 06/27/24 15:19 DCW (Rec: 06/27/24 15:59 DCW [id number]) OP-PT Subjective Patient Comments Patient Comments Pt doing better today. PT-OP-D Balance Start: 01/15/24 16:42 Freq: Status: Active Protocol: Document 06/17/24 17:00 DCW (Rec: 06/17/24 17:23 DCW [id number]) Balance Tests Yanez Balance Test Yanez Balance Test Score 39/56 Yanez Impairment Rating 20 to 39% Impaired (Score 34- 44) Yanez Balance Assessment Evaluation Sitting to Standing Ability Independent w/Hands Unsupported Stance Safely- 2 minutes Sitting Unsupported, Feet on Floor Safely- 2 minutes Standing to Sitting Ability Assist, Control w/Hands Transfer Ability Safely, Hand Use Unsupported Stance- Eyes Closed Safely, 10 seconds Unsupported Stance- Eyes Open Supervision to maintain Reaching Forward Standing Safely, 5 inches Pick- Up Object From Floor Supervision Look Behind Shoulder - Standing Shifts Weight Unilateral Turning 360 Degrees Turns slowly, but safely Unsupported Stance, Alternating Feet on 4 Steps w/Supervision Stair Unsupported Tandem Stance Assist to Step-15 seconds Unilateral Leg Stance Lifts Leg/Unable to Hold Total Score Yanez Total Score (out of 56 points) 39 Yanez Impairment Rating 20 to 39% Impaired (Score 34- 44) PT-OP-E Functional Tests Start: 01/15/24 16:42 Freq: Status: Active Protocol: Document 06/17/24 17:00 DCW (Rec: 06/17/24 17:23 DCW [id number]) Functional Tests Five Times Sit to Stand Test Score 13.82 Comments minimal UE use hands on seat of webbed chair, unable without UE use PT-OP-J Posture/Palpation/Skin Start: 01/15/24 16:42 Freq: Status: Active Protocol: Document 04/07/24 13:51 DCW (Rec: 04/07/24 14:09 DCW [id number]) Posture Evaluation Comments Posture Comments Pt presents with severe scoliosis and worsening excessive kyphosis. PT-OP-M Strength Start: 01/15/24 16:42 Freq: Status: Active Protocol: Document 06/17/24 17:00 DCW (Rec: 06/17/24 17:23 DCW [id number]) Hip Strength Hip Manual Muscle Testing Right Flexion (L2) 4 Good Abduction 4 Good Adduction 4 Good Left Flexion (L2) 4 Good Abduction 4 Good Adduction 4 Good Knee Strength Knee Manual Muscle Testing Right Flexion (S2) 4+ Good+ Extension (L3) 4+ Good+ Left Flexion (S2) 4+ Good+ Extension (L3) 4+ Good+ Ankle/Foot Strength Ankle and Foot Manual Muscle Testing Right Dorsiflexion (L4) 4 Good Left Dorsiflexion (L4) 4- Good- PT-OP-Q Treatments Start: 01/15/24 16:42 Freq: Status: Active Protocol: Document 06/27/24 15:19 DCW (Rec: 06/27/24 15:59 DCW [id number]) Gym Equipment Shuttle Balance Red Details WBOS, Staggered Therapeutic Exercises Standing Exercises Hamstring Curls Standing Exercise Name Hamstring Curls Side bilateral Resistance 5# leg wt Equipment Used // bars Neuro Re-Education Treatment Balance Activities step up taps Details Toe-taps Equipment 6 step Reps/Duration 5# Comments light rail SLS Details SLS Equipment // bars Hurdles Details Hurdles Equipment // bars, UE support Reps/Duration 6 hurdles x3 laps each direction Comments Forward, Lateral Foam Details Foam stance, EO/EC Surface AirEx PT-OP-T Assessment and Plan Start: 01/15/24 16:42 Freq: Status: Active Protocol: Document 06/27/24 15:19 DCW (Rec: 06/27/24 15:59 DCW [id number]) Physical Therapy Assessment Impairments Impairments Activity Tolerance,Balance, Functional Activities, Functional Mobility,Gait,Pain, Posture,Soft Tissue Mobility, Strength,Tone Goals Three Impairment Pt completes a five times sit to stand test in 1:51.63 Short Term Goal (STG) Pt to complete her 5xStS test <60 seconds in order to demonstrate an improvement in activity tolerance. STG Duration Met Assisted Goal (LTG) Pt to complete her 5xStS test <30 seconds without UE assistance in order to demonstrate an improvement in activity tolerance. LTG Duration 08/17/24 Two Impairment Pt presents as a high falls risk, per Yanez score (23/56) Short Term Goal (STG) Pt to demonstrate a decrease in falls risk by improving Yanez score by at least seven points, to 30/56 STG Duration Met Surveillance Officer Goal (LTG) Pt to demonstrate a decrease in falls risk by improving Yanez score by at least seven points, to 50/56 LTG Duration 08/17/24 One Impairment Pt does not have an appropriate home exercise program Short Term Goal (STG) Pt to be independent and compliant with an appropriate HEP 03/04/2024 Patient reports she is doing the seated hip with band exercise, but not the exercise that requires foot in cabinet under sink as it makes her unsteady and not sit to stand as she does that throughout the day. STG Duration 07/18/24 Assessment Summary Assessment Good response to treatment today, pt continues to do better with balance challenges . Physical Therapy Plan Frequency and Duration Frequency of Treatment 2x/Week Plan of Care Start Date 06/17/24 Plan of Care End Date 08/17/24 Therapeutic Interventions Therapeutic Interventions Balance Training,Coordination Training,Gait Training,Home Exercise Program,Joint Mobilizations,Manual Therapy, Neuromuscular Re-education, Patient/Caregiver Education, Self-Care/Home Management,Soft Tissue Mobilization, Therapeutic Activities, Therapeutic Exercises Modalities Cold Pack/Ice Massage,Electric Stimulation,Hot Packs Next Visit Focus/Plan Next Note Type Treatment Note Next Visit Plan Continue progression LE ex strengthening, increase stride gait during gait, progressing balance activities. POC: LE strengthening, balance challenges, gait training, posture
--- NOTE | 2024-07-01 17:03 | PT.OTN ---
Current Diagnoses Low back pain, unspecified (07/01/24) Muscle weakness (generalized) (07/01/24) Unsteadiness on feet (07/01/24) Physical Therapy Treatment Note PT-OP-A Visit Information Start: 01/15/24 16:42 Freq: Status: Active Protocol: Document 07/01/24 16:17 DCW (Rec: 07/01/24 17:02 DCW [id number]) Out-Patient Physical Therapy Visit Information Visit Information Visit Type Treatment Note Visit Start Time 16:17 Visit Stop Time 17:00 Visit Number [address] LIAISON Visits 0 Evaluation Information Evaluation Date 01/15/24 PT-OP-B Current Condition Start: 01/15/24 16:42 Freq: Status: Active Protocol: Document 01/15/24 15:35 DCW (Rec: 01/15/24 17:44 DCW [id number]) Current Condition History of Current Condition Onset Date Multi-year history Current Complaints Low back pain, leg weakness, poor balance History of Current Condition Pt is an 88 year old female very well known to this clinic presenting with worsening low back pain, imbalance, leg weakness, and increased fear of falling. Pt notes she uses her 4WW around the house, which makes her feel more stable, but she cannot get the walker in or out of her car, so she relies on a SPC out in the community. 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 Pt unfortunately lost her earlier this year, and was also diagnosed with breast cancer, although she notes the cancer was excised recently and she believes it is mostly gone. Pt denies any falls, but feels that due to weakness in her legs and her inability to stand up straight, a fall is getting more likely. Low back pain is typically worse with lying supine in bed, bending over, or trying to sampler pickup something heavy. Treatment Goals Patient/Caregiver Goals Decrease risk of falls PT-OP-C Subjective Start: 01/15/24 16:42 Freq: Status: Active Protocol: Document 07/01/24 16:17 DCW (Rec: 07/01/24 17:02 DCW [id number]) OP-PT Subjective Patient Comments Patient Comments I'm alright. Kind of tired, I don't know why. PT-OP-D Balance Start: 01/15/24 16:42 Freq: Status: Active Protocol: Document 06/17/24 17:00 DCW (Rec: 06/17/24 17:23 DCW [id number]) Balance Tests Yanez Balance Test Yanez Balance Test Score 39/56 Yanez Impairment Rating 20 to 39% Impaired (Score 34- 44) Yanez Balance Assessment Evaluation Sitting to Standing Ability Independent w/Hands Unsupported Stance Safely- 2 minutes Sitting Unsupported, Feet on Floor Safely- 2 minutes Standing to Sitting Ability Assist, Control w/Hands Transfer Ability Safely, Hand Use Unsupported Stance- Eyes Closed Safely, 10 seconds Unsupported Stance- Eyes Open Supervision to maintain Reaching Forward Standing Safely, 5 inches Pick- Up Object From Floor Supervision Look Behind Shoulder - Standing Shifts Weight Unilateral Turning 360 Degrees Turns slowly, but safely Unsupported Stance, Alternating Feet on 4 Steps w/Supervision Stair Unsupported Tandem Stance Assist to Step-15 seconds Unilateral Leg Stance Lifts Leg/Unable to Hold Total Score Yanez Total Score (out of 56 points) 39 Yanez Impairment Rating 20 to 39% Impaired (Score 34- 44) PT-OP-E Functional Tests Start: 01/15/24 16:42 Freq: Status: Active Protocol: Document 06/17/24 17:00 DCW (Rec: 06/17/24 17:23 DCW [id number]) Functional Tests Five Times Sit to Stand Test Score 13.82 Comments minimal UE use hands on seat of webbed chair, unable without UE use PT-OP-J Posture/Palpation/Skin Start: 01/15/24 16:42 Freq: Status: Active Protocol: Document 04/07/24 13:51 DCW (Rec: 04/07/24 14:09 DCW [id number]) Posture Evaluation Comments Posture Comments Pt presents with severe scoliosis and worsening excessive kyphosis. PT-OP-M Strength Start: 01/15/24 16:42 Freq: Status: Active Protocol: Document 06/17/24 17:00 DCW (Rec: 06/17/24 17:23 DCW [id number]) Hip Strength Hip Manual Muscle Testing Right Flexion (L2) 4 Good Abduction 4 Good Adduction 4 Good Left Flexion (L2) 4 Good Abduction 4 Good Adduction 4 Good Knee Strength Knee Manual Muscle Testing Right Flexion (S2) 4+ Good+ Extension (L3) 4+ Good+ Left Flexion (S2) 4+ Good+ Extension (L3) 4+ Good+ Ankle/Foot Strength Ankle and Foot Manual Muscle Testing Right Dorsiflexion (L4) 4 Good Left Dorsiflexion (L4) 4- Good- PT-OP-Q Treatments Start: 01/15/24 16:42 Freq: Status: Active Protocol: Document 07/01/24 16:17 DCW (Rec: 07/01/24 17:02 DCW [id number]) Gym Equipment Shuttle Balance Red Details WBOS, Staggered Therapeutic Exercises Standing Exercises Hamstring Curls Standing Exercise Name Hamstring Curls Side bilateral Resistance 5# leg wt Equipment Used // bars Neuro Re-Education Treatment Balance Activities step up taps Details Toe-taps Equipment 6 step Reps/Duration 5# Comments light rail SLS Details SLS Equipment // bars Dynamic gait Equipment // bars Comments Head Turns Hurdles Details Hurdles Equipment // bars, UE support Reps/Duration 6 hurdles x3 laps each direction Comments Forward, Lateral Foam Details Foam stance, EO/EC Surface AirEx Tandem Details Semi Tandem Stance Equipment // bars PT-OP-T Assessment and Plan Start: 01/15/24 16:42 Freq: Status: Active Protocol: Document 07/01/24 16:17 DCW (Rec: 07/01/24 17:02 DCW [id number]) Physical Therapy Assessment Impairments Impairments Activity Tolerance,Balance, Functional Activities, Functional Mobility,Gait,Pain, Posture,Soft Tissue Mobility, Strength,Tone Goals Three Impairment Pt completes a five times sit to stand test in 1:51.63 Short Term Goal (STG) Pt to complete her 5xStS test <60 seconds in order to demonstrate an improvement in activity tolerance. STG Duration Met Detention Goal (LTG) Pt to complete her 5xStS test <30 seconds without UE assistance in order to demonstrate an improvement in activity tolerance. LTG Duration 08/17/24 Two Impairment Pt presents as a high falls risk, per Yanez score (23/56) Short Term Goal (STG) Pt to demonstrate a decrease in falls risk by improving Yanez score by at least seven points, to 30/56 STG Duration Met Detention Goal (LTG) Pt to demonstrate a decrease in falls risk by improving Yanez score by at least seven points, to 50/56 LTG Duration 08/17/24 One Impairment Pt does not have an appropriate home exercise program Short Term Goal (STG) Pt to be independent and compliant with an appropriate HEP 03/04/2024 Patient reports she is doing the seated hip with band exercise, but not the exercise that requires foot in cabinet under sink as it makes her unsteady and not sit to stand as she does that throughout the day. STG Duration 07/18/24 Assessment Summary Assessment Pt exhibiting a little more fatigue today, increased rest breaks. Balance looking okay, focus on balance and strengthening. Physical Therapy Plan Frequency and Duration Frequency of Treatment 2x/Week Plan of Care Start Date 06/17/24 Plan of Care End Date 08/17/24 Therapeutic Interventions Therapeutic Interventions Balance Training,Coordination Training,Gait Training,Home Exercise Program,Joint Mobilizations,Manual Therapy, Neuromuscular Re-education, Patient/Caregiver Education, Self-Care/Home Management,Soft Tissue Mobilization, Therapeutic Activities, Therapeutic Exercises Modalities Cold Pack/Ice Massage,Electric Stimulation,Hot Packs Next Visit Focus/Plan Next Note Type Treatment Note Next Visit Plan Continue progression LE ex strengthening, increase stride gait during gait, progressing balance activities. POC: LE strengthening, balance challenges, gait training, posture
--- NOTE | 2024-07-08 14:45 | PT.OTN ---
Current Diagnoses Low back pain, unspecified (07/08/24) Muscle weakness (generalized) (07/08/24) Unsteadiness on feet (07/08/24) Physical Therapy Treatment Note PT-OP-A Visit Information Start: 01/15/24 16:42 Freq: Status: Active Protocol: Document 07/08/24 11:40 NBM (Rec: 07/08/24 12:34 NBM [id number]) Out-Patient Physical Therapy Visit Information Visit Information Visit Type Treatment Note Visit Start Time 11:42 Visit Stop Time 12:22 Visit Number 40 Number of FAMILY HELPER Visits 1 Evaluation Information Evaluation Date 01/15/24 PT-OP-B Current Condition Start: 01/15/24 16:42 Freq: Status: Active Protocol: Document 01/15/24 15:35 DCW (Rec: 01/15/24 17:44 DCW [id number]) Current Condition History of Current Condition Onset Date Multi-year history Current Complaints Low back pain, leg weakness, poor balance History of Current Condition Pt is an 88 year old female very well known to this clinic presenting with worsening low back pain, imbalance, leg weakness, and increased fear of falling. Pt notes she uses her 4WW around the house, which makes her feel more stable, but she cannot get the walker in or out of her car, so she relies on a SPC out in the community. 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 Pt unfortunately lost her earlier this year, and was also diagnosed with breast cancer, although she notes the cancer was excised recently and she believes it is mostly gone. Pt denies any falls, but feels that due to weakness in her legs and her inability to stand up straight, a fall is getting more likely. Low back pain is typically worse with lying supine in bed, bending over, or trying to hand picker something heavy. Treatment Goals Patient/Caregiver Goals Decrease risk of falls PT-OP-C Subjective Start: 01/15/24 16:42 Freq: Status: Active Protocol: Document 07/08/24 11:40 NBM (Rec: 07/08/24 12:34 NBM [id number]) OP-PT Subjective Patient Comments Patient Comments Stacey reports the back of her neck is really sore today. PT-OP-D Balance Start: 01/15/24 16:42 Freq: Status: Active Protocol: Document 06/17/24 17:00 DCW (Rec: 06/17/24 17:23 DCW [id number]) Balance Tests Yanez Balance Test Yanez Balance Test Score 39/56 Yanez Impairment Rating 20 to 39% Impaired (Score 34- 44) Yanez Balance Assessment Evaluation Sitting to Standing Ability Independent w/Hands Unsupported Stance Safely- 2 minutes Sitting Unsupported, Feet on Floor Safely- 2 minutes Standing to Sitting Ability Assist, Control w/Hands Transfer Ability Safely, Hand Use Unsupported Stance- Eyes Closed Safely, 10 seconds Unsupported Stance- Eyes Open Supervision to maintain Reaching Forward Standing Safely, 5 inches Pick- Up Object From Floor Supervision Look Behind Shoulder - Standing Shifts Weight Unilateral Turning 360 Degrees Turns slowly, but safely Unsupported Stance, Alternating Feet on 4 Steps w/Supervision Stair Unsupported Tandem Stance Assist to Step-15 seconds Unilateral Leg Stance Lifts Leg/Unable to Hold Total Score Yanez Total Score (out of 56 points) 39 Yanez Impairment Rating 20 to 39% Impaired (Score 34- 44) PT-OP-E Functional Tests Start: 01/15/24 16:42 Freq: Status: Active Protocol: Document 06/17/24 17:00 DCW (Rec: 06/17/24 17:23 DCW [id number]) Functional Tests Five Times Sit to Stand Test Score 13.82 Comments minimal UE use hands on seat of webbed chair, unable without UE use PT-OP-J Posture/Palpation/Skin Start: 01/15/24 16:42 Freq: Status: Active Protocol: Document 04/07/24 13:51 DCW (Rec: 04/07/24 14:09 DCW [id number]) Posture Evaluation Comments Posture Comments Pt presents with severe scoliosis and worsening excessive kyphosis. PT-OP-M Strength Start: 01/15/24 16:42 Freq: Status: Active Protocol: Document 06/17/24 17:00 DCW (Rec: 06/17/24 17:23 DCW [id number]) Hip Strength Hip Manual Muscle Testing Right Flexion (L2) 4 Good Abduction 4 Good Adduction 4 Good Left Flexion (L2) 4 Good Abduction 4 Good Adduction 4 Good Knee Strength Knee Manual Muscle Testing Right Flexion (S2) 4+ Good+ Extension (L3) 4+ Good+ Left Flexion (S2) 4+ Good+ Extension (L3) 4+ Good+ Ankle/Foot Strength Ankle and Foot Manual Muscle Testing Right Dorsiflexion (L4) 4 Good Left Dorsiflexion (L4) 4- Good- PT-OP-Q Treatments Start: 01/15/24 16:42 Freq: Status: Active Protocol: Document 07/08/24 11:40 NBM (Rec: 07/08/24 12:34 NBM [id number]) Therapeutic Exercises Sitting Exercises DF Sitting Exercise Name B seated toe raises Side bilateral Reps/Minutes x10 ea Comments L>R challenged, initial cues for eccentric control LAQ Sitting Exercise Name LAQ w/ tall sitting posture Side bilateral Resistance 5# leg wt Equipment Used standard mesh chair Reps/Minutes 30 alternating Standing Exercises calf stretch Standing Exercise Name w/ gentle STM (rolling) to gastrocnemius m Side bilateral Equipment Used at lobby stairs for handhold assist Reps/Minutes 45 sec ea Comments L>R tightness Gait Training Gait Activity AD Description w/ 5# AW Device Used hurrycane Level of Assistance CGA Surface carpet Distance/Duration 35 ft Treatment Focus increase stride, posture Comments cues upright posture, increase stride pass each other, arm swing with TS/ribcage rotation for support bal and mobility Manual Therapy Treatment Consent Patient gave verbal consent for manual Yes treatment Soft Tissue Mobilization periscapular muscles Body Location B rhomboid, ES thoracic Mobilization Type Rolling Body Position Sitting Comments Gentle STMs feels good neck Body Location L>R UT, LS, SCM, SOR Mobilization Type Rolling Intensity/Depth Moderate Body Position SL Comments 3 pillows under head, bolster under LEs gentle STMs, circular strokes distal to proximal Neuro Re-Education Treatment Balance Activities step up taps Details Toe-taps Equipment 6 training steps Reps/Duration 5# Comments light rail, no toe clipping, one instance of R plantar scuffing. SLS Details SLS Equipment handrail, CGA Reps/Duration trials progressively decreasing UE support B: DEPUTY CLERK OF SUPERIOR COURT>2 -finger>1 finger> no UE Comments focus on maintaining gluteal activation with upright posture and decreasing UE support Tandem Details Semi Tandem Stance B Surface firm Equipment handrail, CGA Comments balance control improves with cues for gluteal activation and upright posture. PT-OP-T Assessment and Plan Start: 01/15/24 16:42 Freq: Status: Active Protocol: Document 07/08/24 11:40 [facility] (Rec: 07/08/24 12:34 [facility] [id number]) Physical Therapy Assessment Goals Three Impairment Pt completes a five times sit to stand test in 1:51.63 Short Term Goal (STG) Pt to complete her 5xStS test <60 seconds in order to demonstrate an improvement in activity tolerance. STG Duration Met Inspector Tubes Goal (LTG) Pt to complete her 5xStS test <30 seconds without UE assistance in order to demonstrate an improvement in activity tolerance. LTG Duration 08/17/24 Two Impairment Pt presents as a high falls risk, per Yanez score (/56) Short Term Goal (STG) Pt to demonstrate a decrease in falls risk by improving Yanez score by at least seven points, to 30/56 STG Duration Met Inspector Tubes Goal (LTG) Pt to demonstrate a decrease in falls risk by improving Yanez score by at least seven points, to 50/56 LTG Duration 08/17/24 One Impairment Pt does not have an appropriate home exercise program Short Term Goal (STG) Pt to be independent and compliant with an appropriate HEP 03/04/2024 Patient reports she is doing the seated hip with band exercise, but not the exercise that requires foot in cabinet under sink as it makes her unsteady and not sit to stand as she does that throughout the day. STG Duration 07/18/24 Assessment Summary Assessment Stacey requires cues for gluteal activation w/ standing balance and for upright posture in sitting. She has increased back pain without UE support in SLS and tandem balance and is challenged to maintain upright posture, and requires Ramirez for balance control without UE support. Palpable tension to L cervical paraspinals and UT m. improve with manual therapy. Calf stretch bilaterally end of session for improved stride length and foot clearance. Physical Therapy Plan Frequency and Duration Frequency of Treatment 2x/Week Plan of Care Start Date 06/17/24 Plan of Care End Date 08/17/24 Therapeutic Interventions Therapeutic Interventions Balance Training,Coordination Training,Gait Training,Home Exercise Program,Joint Mobilizations,Manual Therapy, Neuromuscular Re-education, Patient/Caregiver Education, Self-Care/Home Management,Soft Tissue Mobilization, Therapeutic Activities, Therapeutic Exercises Modalities Cold Pack/Ice Massage,Electric Stimulation,Hot Packs Next Visit Focus/Plan Next Note Type Treatment Note Next Visit Plan Continue progression LE ex strengthening, increase stride gait during gait, progressing balance activities. POC: LE strengthening, balance challenges, gait training, posture
--- NOTE | 2024-07-11 12:14 | PT.OTN ---
Current Diagnoses Low back pain, unspecified (07/11/24) Muscle weakness (generalized) (07/11/24) Unsteadiness on feet (07/11/24) Physical Therapy Treatment Note PT-OP-A Visit Information Start: 01/15/24 16:42 Freq: Status: Active Protocol: Document 07/11/24 11:36 DCW (Rec: 07/11/24 12:14 DCW [id number]) Out-Patient Physical Therapy Visit Information Visit Information Visit Type Treatment Note Visit Start Time 11:36 Visit Stop Time 12:15 Visit Number 41 Number of RELAY SHOP SUPERVISOR Visits 0 Evaluation Information Evaluation Date 01/15/24 PT-OP-B Current Condition Start: 01/15/24 16:42 Freq: Status: Active Protocol: Document 01/15/24 15:35 DCW (Rec: 01/15/24 17:44 DCW [id number]) Current Condition History of Current Condition Onset Date Multi-year history Current Complaints Low back pain, leg weakness, poor balance History of Current Condition Pt is an 88 year old female very well known to this clinic presenting with worsening low back pain, imbalance, leg weakness, and increased fear of falling. Pt notes she uses her 4WW around the house, which makes her feel more stable, but she cannot get the walker in or out of her car, so she relies on a SPC out in the community. 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 Pt unfortunately lost her earlier this year, and was also diagnosed with breast cancer, although she notes the cancer was excised recently and she believes it is mostly gone. Pt denies any falls, but feels that due to weakness in her legs and her inability to stand up straight, a fall is getting more likely. Low back pain is typically worse with lying supine in bed, bending over, or trying to coal picker something heavy. Treatment Goals Patient/Caregiver Goals Decrease risk of falls PT-OP-C Subjective Start: 01/15/24 16:42 Freq: Status: Active Protocol: Document 07/11/24 11:36 DCW (Rec: 07/11/24 12:14 DCW [id number]) OP-PT Subjective Patient Comments Patient Comments Pt notes her neck isn't hurting quite so badly today. PT-OP-D Balance Start: 01/15/24 16:42 Freq: Status: Active Protocol: Document 06/17/24 17:00 DCW (Rec: 06/17/24 17:23 DCW [id number]) Balance Tests Yanez Balance Test Yanez Balance Test Score 39/56 Yanez Impairment Rating 20 to 39% Impaired (Score 34- 44) Yanez Balance Assessment Evaluation Sitting to Standing Ability Independent w/Hands Unsupported Stance Safely- 2 minutes Sitting Unsupported, Feet on Floor Safely- 2 minutes Standing to Sitting Ability Assist, Control w/Hands Transfer Ability Safely, Hand Use Unsupported Stance- Eyes Closed Safely, 10 seconds Unsupported Stance- Eyes Open Supervision to maintain Reaching Forward Standing Safely, 5 inches Pick- Up Object From Floor Supervision Look Behind Shoulder - Standing Shifts Weight Unilateral Turning 360 Degrees Turns slowly, but safely Unsupported Stance, Alternating Feet on 4 Steps w/Supervision Stair Unsupported Tandem Stance Assist to Step-15 seconds Unilateral Leg Stance Lifts Leg/Unable to Hold Total Score Yanez Total Score (out of 56 points) 39 Yanez Impairment Rating 20 to 39% Impaired (Score 34- 44) PT-OP-E Functional Tests Start: 01/15/24 16:42 Freq: Status: Active Protocol: Document 06/17/24 17:00 DCW (Rec: 06/17/24 17:23 DCW [id number]) Functional Tests Five Times Sit to Stand Test Score 13.82 Comments minimal UE use hands on seat of webbed chair, unable without UE use PT-OP-J Posture/Palpation/Skin Start: 01/15/24 16:42 Freq: Status: Active Protocol: Document 04/07/24 13:51 DCW (Rec: 04/07/24 14:09 DCW [id number]) Posture Evaluation Comments Posture Comments Pt presents with severe scoliosis and worsening excessive kyphosis. PT-OP-M Strength Start: 01/15/24 16:42 Freq: Status: Active Protocol: Document 06/17/24 17:00 DCW (Rec: 06/17/24 17:23 DCW [id number]) Hip Strength Hip Manual Muscle Testing Right Flexion (L2) 4 Good Abduction 4 Good Adduction 4 Good Left Flexion (L2) 4 Good Abduction 4 Good Adduction 4 Good Knee Strength Knee Manual Muscle Testing Right Flexion (S2) 4+ Good+ Extension (L3) 4+ Good+ Left Flexion (S2) 4+ Good+ Extension (L3) 4+ Good+ Ankle/Foot Strength Ankle and Foot Manual Muscle Testing Right Dorsiflexion (L4) 4 Good Left Dorsiflexion (L4) 4- Good- PT-OP-Q Treatments Start: 01/15/24 16:42 Freq: Status: Active Protocol: Document 07/11/24 11:36 DCW (Rec: 07/11/24 12:14 DCW [id number]) Gym Equipment Shuttle Balance Red Details WBOS, Staggered Neuro Re-Education Treatment Balance Activities SLS Details SLS Equipment // bars Dynamic gait Equipment // bars Comments Head Turns retro stepping Details Retro ambulation Equipment inside // bars, outside //bars open area Reps/Duration 3 laps inside //bars, 30 steps Comments 0 UE contact, cued head up Hurdles Details Hurdles Equipment // bars, UE support Reps/Duration 6 hurdles x3 laps each direction Comments Forward, Lateral Foam Details Foam stance, EO/EC Surface AirEx Tandem Details Semi Tandem Stance Equipment // bars PT-OP-T Assessment and Plan Start: 01/15/24 16:42 Freq: Status: Active Protocol: Document 07/11/24 11:36 DCW (Rec: 07/11/24 12:14 DCW [id number]) Physical Therapy Assessment Impairments Impairments Activity Tolerance,Balance, Functional Activities, Functional Mobility,Gait,Pain, Posture,Soft Tissue Mobility, Strength,Tone Goals Three Impairment Pt completes a five times sit to stand test in 1:51.63 Short Term Goal (STG) Pt to complete her 5xStS test <60 seconds in order to demonstrate an improvement in activity tolerance. STG Duration Met Cooker Tender Goal (LTG) Pt to complete her 5xStS test <30 seconds without UE assistance in order to demonstrate an improvement in activity tolerance. LTG Duration 08/17/24 Two Impairment Pt presents as a high falls risk, per Yanez score (23/56) Short Term Goal (STG) Pt to demonstrate a decrease in falls risk by improving Yanez score by at least seven points, to 30/56 STG Duration Met Senior Living Goal (LTG) Pt to demonstrate a decrease in falls risk by improving Yanez score by at least seven points, to 50/56 LTG Duration 08/17/24 One Impairment Pt does not have an appropriate home exercise program Short Term Goal (STG) Pt to be independent and compliant with an appropriate HEP 03/04/2024 Patient reports she is doing the seated hip with band exercise, but not the exercise that requires foot in cabinet under sink as it makes her unsteady and not sit to stand as she does that throughout the day. STG Duration 07/18/24 Assessment Summary Assessment Pt showing some improvement today, not as fatigued as last week. Continue to focus on balance, LE strengthening. Physical Therapy Plan Frequency and Duration Frequency of Treatment 2x/Week Plan of Care Start Date 06/17/24 Plan of Care End Date 08/17/24 Therapeutic Interventions Therapeutic Interventions Balance Training,Coordination Training,Gait Training,Home Exercise Program,Joint Mobilizations,Manual Therapy, Neuromuscular Re-education, Patient/Caregiver Education, Self-Care/Home Management,Soft Tissue Mobilization, Therapeutic Activities, Therapeutic Exercises Modalities Cold Pack/Ice Massage,Electric Stimulation,Hot Packs Next Visit Focus/Plan Next Note Type Treatment Note Next Visit Plan Continue progression LE ex strengthening, increase stride gait during gait, progressing balance activities. POC: LE strengthening, balance challenges, gait training, posture
--- NOTE | 2024-07-29 17:44 | PT.OTN ---
Current Diagnoses Low back pain, unspecified (07/29/24) Muscle weakness (generalized) (07/29/24) Unsteadiness on feet (07/29/24) Physical Therapy Treatment Note PT-OP-A Visit Information Start: 01/15/24 16:42 Freq: Status: Active Protocol: Document 07/29/24 17:00 DCW (Rec: 07/29/24 17:44 DCW [id number]) Out-Patient Physical Therapy Visit Information Visit Information Visit Type Treatment Note Visit Start Time 17:00 Visit Stop Time 17:45 Visit Number 42 Number of PAINTLESS DENT REPAIR TECHNICIAN Visits 0 Evaluation Information Evaluation Date 01/15/24 PT-OP-B Current Condition Start: 01/15/24 16:42 Freq: Status: Active Protocol: Document 01/15/24 15:35 DCW (Rec: 01/15/24 17:44 DCW [id number]) Current Condition History of Current Condition Onset Date Multi-year history Current Complaints Low back pain, leg weakness, poor balance History of Current Condition Pt is an 88 year old female very well known to this clinic presenting with worsening low back pain, imbalance, leg weakness, and increased fear of falling. Pt notes she uses her 4WW around the house, which makes her feel more stable, but she cannot get the walker in or out of her car, so she relies on a SPC out in the community. 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 Pt unfortunately lost her earlier this year, and was also diagnosed with breast cancer, although she notes the cancer was excised recently and she believes it is mostly gone. Pt denies any falls, but feels that due to weakness in her legs and her inability to stand up straight, a fall is getting more likely. 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 Treatment Goals Patient/Caregiver Goals Decrease risk of falls PT-OP-C Subjective Start: 01/15/24 16:42 Freq: Status: Active Protocol: Document 07/29/24 17:00 DCW (Rec: 07/29/24 17:44 DCW [id number]) OP-PT Subjective Patient Comments Patient Comments Pt reports she dropped her phone under her chair last week, and had to get on the floor to get it. Notes it was a bit of a struggle to get herself up off the floor. Since then, her shoulder has been bothering her. PT-OP-D Balance Start: 01/15/24 16:42 Freq: Status: Active Protocol: Document 06/17/24 17:00 DCW (Rec: 06/17/24 17:23 DCW [id number]) Balance Tests Yanez Balance Test Yanez Balance Test Score 39/56 Yanez Impairment Rating 20 to 39% Impaired (Score 34- 44) Yanez Balance Assessment Evaluation Sitting to Standing Ability Independent w/Hands Unsupported Stance Safely- 2 minutes Sitting Unsupported, Feet on Floor Safely- 2 minutes Standing to Sitting Ability Assist, Control w/Hands Transfer Ability Safely, Hand Use Unsupported Stance- Eyes Closed Safely, 10 seconds Unsupported Stance- Eyes Open Supervision to maintain Reaching Forward Standing Safely, 5 inches Pick- Up Object From Floor Supervision Look Behind Shoulder - Standing Shifts Weight Unilateral Turning 360 Degrees Turns slowly, but safely Unsupported Stance, Alternating Feet on 4 Steps w/Supervision Stair Unsupported Tandem Stance Assist to Step-15 seconds Unilateral Leg Stance Lifts Leg/Unable to Hold Total Score Yanez Total Score (out of 56 points) 39 Yanez Impairment Rating 20 to 39% Impaired (Score 34- 44) PT-OP-E Functional Tests Start: 01/15/24 16:42 Freq: Status: Active Protocol: Document 06/17/24 17:00 DCW (Rec: 06/17/24 17:23 DCW [id number]) Functional Tests Five Times Sit to Stand Test Score 13.82 Comments minimal UE use hands on seat of webbed chair, unable without UE use PT-OP-J Posture/Palpation/Skin Start: 01/15/24 16:42 Freq: Status: Active Protocol: Document 04/07/24 13:51 DCW (Rec: 04/07/24 14:09 DCW [id number]) Posture Evaluation Comments Posture Comments Pt presents with severe scoliosis and worsening excessive kyphosis. PT-OP-M Strength Start: 01/15/24 16:42 Freq: Status: Active Protocol: Document 06/17/24 17:00 DCW (Rec: 06/17/24 17:23 DCW [id number]) Hip Strength Hip Manual Muscle Testing Right Flexion (L2) 4 Good Abduction 4 Good Adduction 4 Good Left Flexion (L2) 4 Good Abduction 4 Good Adduction 4 Good Knee Strength Knee Manual Muscle Testing Right Flexion (S2) 4+ Good+ Extension (L3) 4+ Good+ Left Flexion (S2) 4+ Good+ Extension (L3) 4+ Good+ Ankle/Foot Strength Ankle and Foot Manual Muscle Testing Right Dorsiflexion (L4) 4 Good Left Dorsiflexion (L4) 4- Good- PT-OP-Q Treatments Start: 01/15/24 16:42 Freq: Status: Active Protocol: Document 07/29/24 17:00 DCW (Rec: 07/29/24 17:44 DCW [id number]) Gym Equipment Shuttle Balance Red Details WBOS, Staggered Neuro Re-Education Treatment Balance Activities tilt board Details for balancing board Reps/Duration 11 sec R ft fwd, 3 sec L ft fwd Comments CGA initiates hands above bars, VC for posture step up taps Details Cone toe-taps Equipment // bars SLS Details SLS Equipment // bars Dynamic gait Equipment // bars Comments Head Turns Hurdles Details Hurdles Equipment // bars, UE support Reps/Duration 6 hurdles x3 laps each direction Comments Forward, Lateral Foam Details Foam stance, EO/EC Surface AirEx Tandem Details Semi Tandem Stance Equipment // bars PT-OP-T Assessment and Plan Start: 01/15/24 16:42 Freq: Status: Active Protocol: Document 07/29/24 17:00 DCW (Rec: 07/29/24 17:44 DCW [id number]) Physical Therapy Assessment Impairments Impairments Activity Tolerance,Balance, Functional Activities, Functional Mobility,Gait,Pain, Posture,Soft Tissue Mobility, Strength,Tone Goals Three Impairment Pt completes a five times sit to stand test in 1:51.63 Short Term Goal (STG) Pt to complete her 5xStS test <60 seconds in order to demonstrate an improvement in activity tolerance. STG Duration Met Usp Goal (LTG) Pt to complete her 5xStS test <30 seconds without UE assistance in order to demonstrate an improvement in activity tolerance. LTG Duration 08/17/24 Two Impairment Pt presents as a high falls risk, per Yanez score () Short Term Goal (STG) Pt to demonstrate a decrease in falls risk by improving Yanez score by at least seven points, to STG Duration Met Stone Rougher Goal (LTG) Pt to demonstrate a decrease in falls risk by improving Yanez score by at least seven points, to 50/56 LTG Duration 08/17/24 One Impairment Pt does not have an appropriate home exercise program Short Term Goal (STG) Pt to be independent and compliant with an appropriate HEP 03/04/2024 Patient reports she is doing the seated hip with band exercise, but not the exercise that requires foot in cabinet under sink as it makes her unsteady and not sit to stand as she does that throughout the day. STG Duration 07/18/24 Assessment Summary Assessment Pt requiring fewer rest breaks . Showing some mild progress with gait and balance. Physical Therapy Plan Frequency and Duration Frequency of Treatment 2x/Week Plan of Care Start Date 06/17/24 Plan of Care End Date 08/17/24 Therapeutic Interventions Therapeutic Interventions Balance Training,Coordination Training,Gait Training,Home Exercise Program,Joint Mobilizations,Manual Therapy, Neuromuscular Re-education, Patient/Caregiver Education, Self-Care/Home Management,Soft Tissue Mobilization, Therapeutic Activities, Therapeutic Exercises Modalities Cold Pack/Ice Massage,Electric Stimulation,Hot Packs Next Visit Focus/Plan Next Note Type Treatment Note Next Visit Plan Continue progression LE ex strengthening, increase stride gait during gait, progressing balance activities. POC: LE strengthening, balance challenges, gait training, posture
--- NOTE | 2024-08-08 09:54 | PT.OTN ---
Current Diagnoses Low back pain, unspecified (08/08/24) Muscle weakness (generalized) (08/08/24) Unsteadiness on feet (08/08/24) Physical Therapy Treatment Note PT-OP-A Visit Information Start: 01/15/24 16:42 Freq: Status: Active Protocol: Document 08/08/24 09:03 DCW (Rec: 08/08/24 09:54 DCW [id number]) Out-Patient Physical Therapy Visit Information Visit Information Visit Type Discharge Summary Visit Start Time 09:03 Visit Stop Time 09:45 Visit Number 43 Number of IMPLEMENT MECHANIC Visits 0 Evaluation Information Evaluation Date 01/15/24 PT-OP-B Current Condition Start: 01/15/24 16:42 Freq: Status: Active Protocol: Document 01/15/24 15:35 DCW (Rec: 01/15/24 17:44 DCW [id number]) Current Condition History of Current Condition Onset Date Multi-year history Current Complaints Low back pain, leg weakness, poor balance History of Current Condition Pt is an 88 year old female very well known to this clinic presenting with worsening low back pain, imbalance, leg weakness, and increased fear of falling. Pt notes she uses her 4WW around the house, which makes her feel more stable, but she cannot get the walker in or out of her car, so she relies on a SPC out in the community. 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 Pt unfortunately lost her earlier this year, and was also diagnosed with breast cancer, although she notes the cancer was excised recently and she believes it is mostly gone. Pt denies any falls, but feels that due to weakness in her legs and her inability to stand up straight, a fall is getting more likely. Low back pain is typically worse with lying supine in bed, bending over, or trying to pickler helper something heavy. Treatment Goals Patient/Caregiver Goals Decrease risk of falls PT-OP-C Subjective Start: 01/15/24 16:42 Freq: Status: Active Protocol: Document 08/08/24 09:03 DCW (Rec: 08/08/24 09:54 DCW [id number]) OP-PT Subjective Patient Comments Patient Comments Pt had a light fall this past week, lost her balance after getting out of bed and kind of tipped into a lamp in her room. No lingering injuries. Overall feeling like she has improved quite a bit since initial eval. PT-OP-D Balance Start: 01/15/24 16:42 Freq: Status: Active Protocol: Document 08/08/24 09:03 DCW (Rec: 08/08/24 09:20 DCW [id number]) Balance Tests Yanez Balance Test Yanez Balance Test Score 36/56 Yanez Impairment Rating 20 to 39% Impaired (Score 34- 44) Yanez Balance Assessment Evaluation Sitting to Standing Ability Independent w/Hands Unsupported Stance Safely- 2 minutes Sitting Unsupported, Feet on Floor Safely- 2 minutes Standing to Sitting Ability Assist, Control w/Hands Transfer Ability Safely, Hand Use Unsupported Stance- Eyes Closed Safely, 10 seconds Unsupported Stance- Eyes Open Assist to attain, 15 secs Reaching Forward Standing Safely, 5 inches Pick- Up Object From Floor Independent/Safe Look Behind Shoulder - Standing Turns Sideways Only Turning 360 Degrees Turns slowly, but safely Unsupported Stance, Alternating Feet on 2 Steps w/Minimum Assist Stair Unsupported Tandem Stance Assist to Step-15 seconds Unilateral Leg Stance Lifts Leg/Unable to Hold Total Score Yanez Total Score (out of 56 points) 36 Yanez Impairment Rating 20 to 39% Impaired (Score 34- 44) PT-OP-E Functional Tests Start: 01/15/24 16:42 Freq: Status: Active Protocol: Document 08/08/24 09:03 DCW (Rec: 08/08/24 09:20 DCW [id number]) Functional Tests Five Times Sit to Stand Test Score 8.45 Comments minimal UE use hands on seat of webbed chair PT-OP-J Posture/Palpation/Skin Start: 01/15/24 16:42 Freq: Status: Active Protocol: Document 08/08/24 09:03 DCW (Rec: 08/08/24 09:20 DCW [id number]) Posture Evaluation Comments Posture Comments Pt presents with severe scoliosis and worsening excessive kyphosis. PT-OP-M Strength Start: 01/15/24 16:42 Freq: Status: Active Protocol: Document 06/17/24 17:00 DCW (Rec: 06/17/24 17:23 DCW [id number]) Hip Strength Hip Manual Muscle Testing Right Flexion (L2) 4 Good Abduction 4 Good Adduction 4 Good Left Flexion (L2) 4 Good Abduction 4 Good Adduction 4 Good Knee Strength Knee Manual Muscle Testing Right Flexion (S2) 4+ Good+ Extension (L3) 4+ Good+ Left Flexion (S2) 4+ Good+ Extension (L3) 4+ Good+ Ankle/Foot Strength Ankle and Foot Manual Muscle Testing Right Dorsiflexion (L4) 4 Good Left Dorsiflexion (L4) 4- Good- PT-OP-Q Treatments Start: 01/15/24 16:42 Freq: Status: Active Protocol: Document 08/08/24 09:03 DCW (Rec: 08/08/24 09:54 [facility] [id number]) Manual Therapy Treatment Soft Tissue Mobilization periscapular muscles Body Location B rhomboid, ES thoracic Mobilization Type Strumming,Sustained Pressure, Trigger Point Release Body Position Sitting neck Body Location L>R UT, LS, SCM, SOR Mobilization Type Strumming,Sustained Pressure Intensity/Depth Moderate Body Position Sitting PT-OP-T Assessment and Plan Start: 01/15/24 16:42 Freq: Status: Active Protocol: Document 08/08/24 09:03 DCW (Rec: 08/08/24 09:54 [facility] [id number]) Physical Therapy Assessment Impairments Impairments Activity Tolerance,Balance, Functional Activities, Functional Mobility,Gait,Pain, Posture,Soft Tissue Mobility, Strength,Tone Goals Three Impairment Pt completes a five times sit to stand test in 1:51.63 Short Term Goal (STG) Pt to complete her 5xStS test <60 seconds in order to demonstrate an improvement in activity tolerance. STG Duration Met Motor Room Controller Goal (LTG) Pt to complete her 5xStS test <30 seconds without UE assistance in order to demonstrate an improvement in activity tolerance. LTG Duration 08/17/24 Two Impairment Pt presents as a high falls risk, per Yanez score (23/56) Short Term Goal (STG) Pt to demonstrate a decrease in falls risk by improving Yanez score by at least seven points, to 30/56 STG Duration Met Penitentiary Goal (LTG) Pt to demonstrate a decrease in falls risk by improving Yanez score by at least seven points, to 50/56 LTG Duration 08/17/24 One Impairment Pt does not have an appropriate home exercise program Short Term Goal (STG) Pt to be independent and compliant with an appropriate HEP STG Duration Met Assessment Summary Assessment Pt's progress has largely plateaued. Last few Yanez Balance scores have largely been unchanged. Has made fantastic progress since initial evaluation, with her 5xStS score improving from 1' 51.63 to 8.45, and her Yanez improved from 23/56 to 36/56. Pt instructed to continue safe balance challenges at home. Understands she is being discharged from skilled therapy at this time, and will require a new referral in order to return. Pt in agreement with this plan. Physical Therapy Plan Frequency and Duration Frequency of Treatment 2x/Week Plan of Care Start Date 06/17/24 Plan of Care End Date 08/17/24 Therapeutic Interventions Therapeutic Interventions Balance Training,Coordination Training,Gait Training,Home Exercise Program,Joint Mobilizations,Manual Therapy, Neuromuscular Re-education, Patient/Caregiver Education, Self-Care/Home Management,Soft Tissue Mobilization, Therapeutic Activities, Therapeutic Exercises Modalities Cold Pack/Ice Massage,Electric Stimulation,Hot Packs Discharge Physical Therapy Discharge Reasons Plateau in Progress Next Visit Focus/Plan Next Note Type Discharge Summary
== END 2024-08-08 13:52 | disposition home or self-care (01) ==
LOC: PHYS 09:00
PROVIDERS: Family Provider Family Medicine; PCP Family Medicine; Referring Provider Family Medicine; Visit Provider Family Medicine
DX: M54.50 Low back pain, unspecified (principal); R26.81 Unsteadiness on feet; M62.81 Muscle weakness (generalized)
CPT/HCPCS: 97110; 97112; 97116; 97140; 97163

== ENCOUNTER 2024-09-03 15:12 | Emergency (ER) | payer MEDICARE, OTHER, SELFPAY ==
[2021-10-22 15:34] VITALS: BMI 26.7
[2024-09-03] VITALS (11 sets, daily range): BP systolic 114–141; BP diastolic 57–65; PULSE 71–89; RESP 16–24; TEMP 36.6; O2SAT 94–98; BMI 22.6
--- NOTE | 2024-09-03 15:17 | ED.AMS ---
HPI - Altered Mental Status General Chief Complaint: Chest Pain Stated Complaint: AMS/Pain Time Seen by Provider: 09/03/24 15:17 History of Present Illness HPI narrative: 89-year-old female with past medical history of hypertension, hyperlipidemia, comes into the ED from home via EMS for evaluation of mental status change, patient states that she lives at home alone has a director outcomes she states that when her director outcomes came she was concerned that she was not answering questions appropriately therefore called medics, at time of evaluation patient is A&O x4 not having any complaints, she states that she feels fine at this time. She denies any headache visual disturbances chest pain shortness breath fever chills nausea vomiting abdominal pain or any other GI/ symptoms. Related Data Home Medications ?Medication ?Instructions ?Recorded ?Confirmed darifenacin 15 mg tablet,extended 15 mg PO DAILY 06/16/20 02/13/24 release 24 hr losartan 100 mg tablet 100 mg PO DAILY 06/16/20 02/13/24 oxybutynin chloride 5 mg tablet 5 mg PO BID-TID PRN unknown 06/16/20 02/13/24 simvastatin 10 mg tablet 10 mg PO BEDTIME 06/16/20 02/13/24 cyclosporine 0.05 % eye drops in a 1 drp EYE-BOTH ONCE 08/17/21 02/13/24 dropperette latanoprost 0.005 % eye drops 1 drp EYE-BOTH DAILY 08/17/21 02/13/24 esomeprazole magnesium 20 mg 40 mg PO BID 05/28/23 02/13/24 capsule,delayed release (Nexium) glucosamine-chondroitin 500 mg-400 1 tab PO DAILY 05/28/23 02/13/24 mg tablet ipratropium bromide 21 mcg (0.03 2 spray intranasal BID PRN 05/28/23 02/13/24 %) nasal spray allergies tramadol 50 mg tablet 50 mg PO Q6H PRN Back pain 05/28/23 02/13/24 fluticasone propionate 220 2 puff inhalation ONCE 01/02/24 02/13/24 mcg/actuation HFA aerosol inhaler Previous Rx's ?Medication ?Instructions ?Recorded cephalexin 500 mg capsule 500 mg PO Q8H 7 days #21 caps 09/03/24 Allergies Allergy/AdvReac Type Severity Reaction Status Date / Time ciprofloxacin (From Cipro) Allergy Intermediate MOUTH SORES Verified 09/03/24 15:16 codeine (CODEINE) Allergy Unknown Verified 09/03/24 15:16 Review of Systems Review of Systems Narrative: General: Denies fever, chills, weight loss HEENT: Denies headache, eye drainage, eye irritation, head trauma, sore throat, voice change Cardiovascular: Denies any chest pain, palpitations, tachycardia Respiratory: Denies any shortness of breath, cough, wheeze, stridor GI/: Denies any abdominal pain, nausea, vomiting, diarrhea, bright red blood per rectum, melanotic stools, urinary frequency, urinary retention, dysuria, hematuria MSK: Denies any joint pain, muscle pains, swelling Skin: Denies any rashes, lesions, discoloration Neuro: Positive mental status change, Denies any headache, lightheadedness, dizziness, fainting, weakness Psych: Denies SI/HI Patient History Medical History Osteoporosis Anemia GERD (gastroesophageal reflux disease) Impingement syndrome of left shoulder Facet arthropathy, lumbar Lumbar radiculopathy Gait instability Multilevel foraminal stenosis Scoliosis Surgical History H/O bladder repair surgery Family History Father Bleeding acute gastric ulcer Mother Cancer Arthritis Social History household members: none Smoking Status: Never smoker alcohol intake: current alcohol intake frequency: holidays/special occasions only Exam Narrative Exam Narrative: General: Cooperative, well-developed, not in acute distress HEENT: Normocephalic, atraumatic, PERRLA, normal sclera, eyelids normal Neck: Active full range of motion, atraumatic Chest: Normal to inspection, negative crepitus, no overlying erythema ecchymosis Respiratory: Normal respiratory effort, not in acute respiratory distress, clear to auscultation bilaterally negative cough, wheeze, tachypnea, rhonchi, rales Cardiology: Regular rate rhythm negative gallop, murmur, rubs GI/: No tenderness to palpation, soft, non rigid, normal to inspection, exam deferred MSK: Full active range of motion in all 4 extremities, atraumatic, no tenderness to palpation of any bony prominences Skin: No rashes or lesions noted Neuro: Alert awake oriented x3, moves all 4 extremities spontaneously, cranial nerves intact, able to answer all questions appropriately follows commands appropriately Psych: Cooperative, negative suicidal or homicidal ideations Initial Vital Signs Initial Vital Signs: Vital Signs Temperature 98 F 09/03/24 15:16 Pulse Rate 84 09/03/24 15:16 Respiratory Rate 20 09/03/24 15:16 Blood Pressure 141/65 H 09/03/24 15:16 Pulse Oximetry 96 09/03/24 15:16 Oxygen Delivery Method Room Air 09/03/24 15:16 Course Orders Ordered: ED Orders 09/03/24 15:15 Complete Blood Count AUTO DIFF Stat Comprehensive Metabolic Panel Stat Lipase Stat Magnesium Stat NT-proBNP (BNP-Adult 18+) Stat PTT Partial Thromboplastin Joseph Stat Prothrombin Time INR Stat Troponin & CK Cardiac Panel Stat 09/03/24 15:22 XR chest 1V Stat EKG-12 Lead Stat 09/03/24 15:31 CT angio chest PE protocol Stat 09/03/24 15:32 CT head/brain wo con Stat 09/03/24 16:30 Covid-19 + FLU A/B + RSV - PCR Stat 09/03/24 17:35 Urinalysis and Microscopic Stat Urine Culture Stat Discontinued Medications Aspirin (Aspirin 81 Mg Chew Tab) 324 mg PO NOW ONE Stop: 09/03/24 15:22 Last Admin: 09/03/24 18:31 Dose: Not Given Documented By: [facility] Vital Signs Vital signs: Vital Signs - 8 hr 09/03/24 15:16 09/03/24 15:21 09/03/24 15:30 Temperature 98 F Pulse Rate 84 81 Respiratory Rate 20 19 Blood Pressure 141/65 H 122/57 L Pulse Oximetry 96 97 Oxygen Delivery Method Room Air 09/03/24 15:30 09/03/24 16:00 09/03/24 16:00 Temperature Pulse Rate 79 82 Respiratory Rate 16 18 Blood Pressure 114/57 L Pulse Oximetry 97 95 Oxygen Delivery Method Room Air 09/03/24 16:30 09/03/24 16:36 09/03/24 16:36 Temperature Pulse Rate 89 82 Respiratory Rate 24 18 Blood Pressure 132/63 Pulse Oximetry 96 96 Oxygen Delivery Method 09/03/24 17:00 09/03/24 17:00 09/03/24 17:30 Temperature Pulse Rate 74 Respiratory Rate 21 Blood Pressure 120/58 L 137/65 Pulse Oximetry 96 Oxygen Delivery Method Room Air 09/03/24 17:30 09/03/24 18:00 09/03/24 18:00 Temperature Pulse Rate 76 71 Respiratory Rate 19 17 Blood Pressure 131/60 Pulse Oximetry 95 97 Oxygen Delivery Method Room Air MDM - Altered Mental Status Differential Diagnosis Differential diagnosis: Likely altered mental status, other and subarachnoid hemorrhage Lab Data 09/03/24 15:15 09/03/24 15:15 Labs: Lab Results 09/03/24 09/03/24 09/03/24 Range/Units 15:15 16:30 17:35 WBC 5.1 (4.5-11.0) X10^3/uL RBC 4.09 (4.0-5.2) X10^6/uL Hgb 12.1 (12.0-16.0) g/dL Hct 36.1 (36-46) % MCV 88.3 (80-100) fL MCH 29.6 (26-34) PG MCHC 33.5 (30-36) % RDW 14.5 (11.6-14.8) % Plt Count 285 (150-400) X10^3/uL Neut % (Auto) 52.9 (50-75) % Lymph % (Auto) 35.6 (25-40) % Mercer % (Auto) 7.0 (3-14) % Eos % (Auto) 3.7 (2-4) % Baso % (Auto) 0.8 (0-2) % Neut # (Auto) 2700 (1019-4565) /uL Lymph # (Auto) 1800 (9717-3721) /uL Mercer # (Auto) 400 (0-900) /uL Eos # (Auto) 200 (0-450) /uL Baso # (Auto) 0 (0-100) /uL PT 11.9 (9.4-12.5) SECONDS INR 1.1 (0.9-1.3) APTT 31 (25.1-36.5) SECONDS Sodium 141 (137-145) mmol/L Potassium 3.9 (3.4-5.1) mmol/L Chloride 106 (98-107) mmol/L Carbon Dioxide 27 (22-32) mmol/L BUN 28 H (7-17) mg/dL Creatinine 0.69 (0.52-1.04) mg/dL Estimated GFR > 60 (>60) mL/min BUN/Creatinine Ratio 40.6 H (6-22) Glucose 148 H (70-99) mg/dL Calcium 9.2 (8.4-10.2) mg/dL Magnesium 1.6 (1.6-2.3) mg/dL Total Bilirubin 0.5 (0.2-1.3) mg/dL AST 39 H (14-36) IU/L ALT 32 (<35) IU/L Alkaline Phosphatase 63 (38-126) U/L Total Creatine Kinase 248 H (30-135) U/L Troponin I < 0.012 (0.01-0.034) ng/mL NT-Pro-B Natriuret Pep 62 (<450) pg/mL Total Protein 7.1 (6.3-8.2) g/dL Albumin 4.2 (3.5-5.0) g/dL Globulin 2.9 (1.7-4.1) g/dL Albumin/Globulin Ratio 1.4 (1.0-2.8) Lipase 62 (23-300) U/L Urine Color Yellow Urine Appearance Cloudy Urine pH 6.0 (4.5-8.0) Ur Specific [place] 1.020 (1.000-1.035) Urine Protein Trace H (Negative) Urine Glucose (UA) Negative (Negative) g/dL Urine Ketones Trace H (NEGATIVE) Urine Occult Blood Negative (Negative) Urine Nitrate Positive H (Negative) Urine Bilirubin Negative (NEGATIVE) Urine Urobilinogen 0.2 (0.2) E.U./dL Ur Leukocyte Esterase 1+ H (NEGATIVE) Urine RBC None seen (0-5/HPF) Urine WBC >100/hpf H (0-5/HPF) Ur Squamous Epith Cells None seen (0-5/HPF) Urine Bacteria Many (>30) H (None) Ur Culture Indicated? Specimen cultured Vol Urine Centrifuged 10ml (spun) SARS-CoV-2 (PCR) Negative (Negative) Influenza A (RT-PCR) Flu a negative (NEGATIVE) Influenza B (RT-PCR) Flu b negative (NEGATIVE) RSV (PCR) Negative (Negative) Imaging Data CT scan - head: Radiologist's Impression: [address] [address] [address] Scan Report Signed Patient: Stacey Ferguson MR#: [id number] : 1935 Acct:[id number] Age/Sex: 89 / F Date of Service: 09/03/24 Loc: ED Accession Number: [id number] Procedure: CT head/brain wo con Ordering Provider: Dm Mancera D.O. PROCEDURE: CT HEAD/BRAIN WO CON INDICATIONS: AMS TECHNIQUE: Noncontrast 4.5 mm thick angled axial sections acquired from the foramen magnum to the vertex, with coronal and sagittal reformats. For radiation dose reduction, the following was used: automated exposure control, adjustment of mA and/or kV according to patient size. COMPARISON: None. FINDINGS: Image quality: Diagnostic. CSF spaces: Basal cisterns are patent. No extra-axial fluid collections. The ventricles are symmetric in size and shape. Brain: No intracranial bleeds or mass effect. There is cerebral volume loss, with resultant ventricular and sulcal prominence. There are periventricular and deep white matter chronic small vessel ischemic changes. There is intracranial internal carotid artery atherosclerosis. Skull and face: Calvarium and visualized facial bones appear intact, without suspicious lesions. Sinuses: Visualized sinuses and mastoids are clear. IMPRESSION: No acute intracranial pathology. Chest x-ray: Radiologist's Impression: [address] [address] XRay Report Signed Patient: Stacey Ferguson MR#: [id number] : 1935 Acct:[id number] Age/Sex: 89 / F Date of Service: 09/03/24 Loc: ED Accession Number: [id number] Procedure: XR chest 1V Ordering Provider: Dm Mancera D.O. PROCEDURE: XR CHEST 1V INDICATIONS: Chest Pain TECHNIQUE: One view of the chest was acquired. COMPARISON: [facility], CR, XR CHEST 2V, 08/22/2023, 14:59. [facility], CR, XR CHEST 1V, 10/22/2021, 11:15. FINDINGS: Surgical changes and devices: None. Lungs and pleura: Lungs are clear. No pleural effusions or pneumothorax. Mediastinum: Large air-filled hiatal hernia. Mediastinal contours appear normal. Heart size is normal. Bones and chest wall: No suspicious bony lesions. Overlying soft tissues appear unremarkable. IMPRESSION: No acute cardiopulmonary abnormality is seen. Large hiatal hernia. CTA PE: Radiologist's Impression: [address] [address] [address] Scan Report Signed Patient: Stacey Ferguson MR#: [id number] : 1935 Acct:[id number] Age/Sex: 89 / F Date of Service: 09/03/24 Loc: ED Accession Number: [id number] Procedure: CT angio chest PE protocol Ordering Provider: Dm Mancera D.O. PROCEDURE: CT ANGIO CHEST PE PROTOCOL INDICATIONS: SOB / AMS TECHNIQUE: After the administration of intravenous contrast, 2 mm thick sections acquired from the pulmonary apices to the posterior costophrenic angles. 3-dimensional maximum intensity projection (MIP) coronal and sagittal reformats were then acquired through the thorax. For radiation dose reduction, the following was used: automated exposure control, adjustment of mA and/or kV according to patient size. COMPARISON: None. FINDINGS: Image quality: Diagnostic. Pulmonary arteries: Pulmonary arteries are normal in size, and demonstrate no intraluminal filling defects to suggest central pulmonary embolism. Lower Neck: No enlarged lymph nodes. Thyroid: No thyroid nodules which require sonographic follow up, per consensus guidelines. Axillae: No enlarged lymph nodes. Chest Wall: Unremarkable. Bones: Unremarkable. Lungs and Pleura: No pneumothorax or pleural effusions. No consolidation or suspicious nodules. Heart: Heart size is normal. No pericardial effusion. Thoracic Vessels: No aortic aneurysm. Mediastinum and Jacquelin: No enlarged lymph nodes. Esophagus: No wall thickening. Large hiatal hernia containing stomach with a large amount of fluid present within the stomach. Upper Abdomen: Visualized upper abdomen solid organs and bowel loops appear normal. IMPRESSION: 1. No acute pulmonary emboli. 2. No acute pulmonary process. 3. Large hiatal hernia. ECG Data Interpretation: EKG interpreted ED physician, sinus at 83, QTC 439 normal axis no STEMI MDM Narrative Medical decision making narrative: 89-year-old female with past medical history of hyperlipidemia hyper tension presenting from home via EMS for evaluation of altered mental status, patient states that she has a director outcomes who came states that the director outcomes was worried that she was answering questions wrong/not acting herself, however at time of evaluation patient A&O x4 not coughing any complaints at this time. Patient did have lab work imaging EKG performed here in the emergency department. EKG nonischemic in nature. Chest x-ray only showing large hiatal hernia, CT PE without any PE. CT head without any acute findings. Lab work without any leukocytosis Chem panel unremarkable troponin negative, urinalysis was consistent acute urinary tract infection 1st dose around about his here sent home with p.o. antibiotics patient was given strict return precautions she verbalized understanding of this and agrees to being discharged home with outpatient follow up Discharge Plan Departure Patient Disposition: Home Clinical Impression: Urinary tract infection Instructions: DI for Urinary Tract Infection (UTI) Activity Restrictions/Additional Instructions: Please follow up with the primary care doctor Please read the discharge instructions sheet carefully and bring all papers to all doctor follow-up visits, as it may contain information that your doctor may want to see. Disease processes change and evolve, if your symptoms worsen or if you develop any new symptoms that are concerning to you please return for evaluation. Your evaluation today does not show any evidence of any life-threatening/serious illnesses requiring admission to the hospital or surgery. Please follow-up with your doctor for re-evaluation in approximately 1 day. Seek immediate medical attention for any worrisome symptoms. *If you do not have a primary care provider please contact the [facility] Resource line at [phone]. They will ask some questions about your medical history and help get you set up with a doctor in the community. Prescriptions: New cephalexin 500 mg capsule 500 mg PO Q8H 7 Days Qty: 21 0RF No Action glucosamine-chondroitin 500-400 mg tablet 1 tab PO DAILY ipratropium bromide 21 mcg (0.03 %) spray,non-aerosol 2 spray intranasal BID PRN (Reason: allergies) Rx Instructions: administer into each nostril fluticasone propionate 220 mcg/actuation HFA aerosol inhaler 2 puff inhalation ONCE oxybutynin chloride 5 mg tablet 5 mg PO BID-TID PRN (Reason: unknown) darifenacin 15 mg tablet extended release 24 hr 15 mg PO DAILY losartan 100 mg tablet 100 mg PO DAILY simvastatin 10 mg tablet 10 mg PO BEDTIME esomeprazole magnesium [Nexium] 20 mg capsule,delayed release(DR/EC) 40 mg PO BID tramadol 50 mg tablet 50 mg PO Q6H PRN (Reason: Back pain) latanoprost 0.005 % drops 1 drp EYE-BOTH DAILY Patient Comments: INSTILL ONE DROP INTO EACH EYE ONCE DAILY IN THE EVENING cyclosporine 0.05 % dropperette 1 drp EYE-BOTH ONCE Referrals: Jia Sheridan MD [Primary Care Provider, Family Practice] Stand Alone Forms: Patient Portal/API
--- NOTE | 2024-09-03 15:22 | DI.RAD.S_ITS ---
PROCEDURE: XR CHEST 1V INDICATIONS: Chest Pain TECHNIQUE: One view of the chest was acquired. COMPARISON: [facility], CR, XR CHEST 2V, 08/22/2023, 14:59. [facility], CR, XR CHEST 1V, 10/22/2021, 11:15. FINDINGS: Surgical changes and devices: None. Lungs and pleura: Lungs are clear. No pleural effusions or pneumothorax. Mediastinum: Large air-filled hiatal hernia. Mediastinal contours appear normal. Heart size is normal. Bones and chest wall: No suspicious bony lesions. Overlying soft tissues appear unremarkable. IMPRESSION: No acute cardiopulmonary abnormality is seen. Large hiatal hernia. Approved by: Ronal Reyes M.D. on 09/03/2024 at 15:55
--- NOTE | 2024-09-03 15:22 | EKG_ITS ---
[address] [address] Test Date: 2024-09-03 Pat Name: Stacey Lawson Department: Room: Gender: Female Compensation Coordinator: SARI : 1935 Requested By: Order Number: [id number] Reading MD: John Ledesma Measurements Intervals [place] Rate: 83 P: 58 ND: 166 QRS: 66 QRSD: 86 T: 72 QT: 374 QTc: 439 Interpretive Statements Sinus rhythm with premature atrial complexes Electronically Signed On 09-04-2024 18:59:23 PDT by John Ledesma
--- NOTE | 2024-09-03 15:31 | DI.CT.S_ITS ---
PROCEDURE: CT ANGIO CHEST PE PROTOCOL INDICATIONS: SOB / AMS TECHNIQUE: After the administration of intravenous contrast, 2 mm thick sections acquired from the pulmonary apices to the posterior costophrenic angles. 3-dimensional maximum intensity projection (MIP) coronal and sagittal reformats were then acquired through the thorax. For radiation dose reduction, the following was used: automated exposure control, adjustment of mA and/or kV according to patient size. COMPARISON: None. FINDINGS: Image quality: Diagnostic. Pulmonary arteries: Pulmonary arteries are normal in size, and demonstrate no intraluminal filling defects to suggest central pulmonary embolism. Lower Neck: No enlarged lymph nodes. Thyroid: No thyroid nodules which require sonographic follow up, per consensus guidelines. Axillae: No enlarged lymph nodes. Chest Wall: Unremarkable. Bones: Unremarkable. Lungs and Pleura: No pneumothorax or pleural effusions. No consolidation or suspicious nodules. Heart: Heart size is normal. No pericardial effusion. Thoracic Vessels: No aortic aneurysm. Mediastinum and Jacquelin: No enlarged lymph nodes. Esophagus: No wall thickening. Large hiatal hernia containing stomach with a large amount of fluid present within the stomach. Upper Abdomen: Visualized upper abdomen solid organs and bowel loops appear normal. IMPRESSION: 1. No acute pulmonary emboli. 2. No acute pulmonary process. 3. Large hiatal hernia. Dictated by: Milton Mayo M.D. on 09/03/2024 at 16:44 Approved by: Milton Mayo M.D. on 09/03/2024 at 16:46
--- NOTE | 2024-09-03 15:32 | DI.CT.S_ITS ---
PROCEDURE: CT HEAD/BRAIN WO CON INDICATIONS: AMS TECHNIQUE: Noncontrast 4.5 mm thick angled axial sections acquired from the foramen magnum to the vertex, with coronal and sagittal reformats. For radiation dose reduction, the following was used: automated exposure control, adjustment of mA and/or kV according to patient size. COMPARISON: None. FINDINGS: Image quality: Diagnostic. CSF spaces: Basal cisterns are patent. No extra-axial fluid collections. The ventricles are symmetric in size and shape. Brain: No intracranial bleeds or mass effect. There is cerebral volume loss, with resultant ventricular and sulcal prominence. There are periventricular and deep white matter chronic small vessel ischemic changes. There is intracranial internal carotid artery atherosclerosis. Skull and face: Calvarium and visualized facial bones appear intact, without suspicious lesions. Sinuses: Visualized sinuses and mastoids are clear. IMPRESSION: No acute intracranial pathology. Dictated by: Milton Mayo M.D. on 09/03/2024 at 16:43 Approved by: Milton Mayo M.D. on 09/03/2024 at 16:43
[2024-09-03 15:35] LABS: Add Manual Diff / Slide Review NO; Basophils Absolute Auto 0 /uL (0-100); Basophils Percent Auto 0.8 % (0-2); Eosinophils Absolute Auto 200 /uL (0-450); Eosinophils Percent Auto 3.7 % (2-4); Hematocrit 36.1 % (36-46); Hemoglobin 12.1 g/dL (12.0-16.0); Lymphocytes Absolute Auto 1800 /uL (1100-4500); Lymphocytes Percent Auto 35.6 % (25-40); Mean Corpuscular HGB Conc 33.5 % (30-36); Mean Corpuscular Hemoglobin 29.6 PG (26-34); Mean Corpuscular Volume 88.3 fL (80-100); Monocytes Absolute Auto 400 /uL (0-900); Neutrophils Absolute Auto 2700 /uL (1500-7000); Neutrophils Percent Auto 52.9 % (50-75); Platelet Count 285 X10^3/uL (150-400); Red Blood Cell Count 4.09 X10^6/uL (4.0-5.2); Red Cell Distribution Width 14.5 % (11.6-14.8); White Blood Cell Count 5.1 X10^3/uL (4.5-11.0)
[2024-09-03 15:36] LABS: INR 1.1 (0.9-1.3); Prothrombin Time 11.9 SECONDS (9.4-12.5)
[2024-09-03 15:39] LABS: Alanine Aminotransferase 32 IU/L (<35); Albumin 4.2 g/dL (3.5-5.0); Albumin Globulin Ratio 1.4 (1.0-2.8); Alkaline Phosphatase 63 U/L (38-126); Aspartate Aminotransferase 39 IU/L (14-36); BUN Creatinine Ratio 40.6 (6-22); Bilirubin Total 0.5 mg/dL (0.2-1.3); Blood Urea Nitrogen 28 mg/dL (7-17); Calcium 9.2 mg/dL (8.4-10.2); Carbon Dioxide 27 mmol/L (22-32); Chloride 106 mmol/L (98-107); Creatine Kinase 248 U/L (30-135); Estimated Glomerular Filt Rate > 60 mL/min (>60); Globulin 2.9 g/dL (1.7-4.1); Glucose 148 mg/dL (70-99); HEMOLYSIS < 15 (0-50); Lipase 62 U/L (23-300); Magnesium 1.6 mg/dL (1.6-2.3); PTT Partial Thromboplastin Tim 31 SECONDS (25.1-36.5); Potassium 3.9 mmol/L (3.4-5.1); Sodium 141 mmol/L (137-145); Total Protein 7.1 g/dL (6.3-8.2)
[2024-09-03 15:51] LABS: NT-proBNP (BNP-Adult 18+) 62 pg/mL (<450); Troponin I < 0.012 ng/mL (0.01-0.034)
--- NOTE | 2024-09-03 16:38 | PC.NURSE ---
This JUICE BAR TEAM MEMBER placed a Pure[place] at 1630.
[2024-09-03 17:15] LABS: Influenza A - CEPHEID Flu A NEGATIVE (NEGATIVE); Influenza B - CEPHEID Flu B NEGATIVE (NEGATIVE); Respiratory Syncytial Virus Negative (Negative)
[2024-09-03 17:51] LABS: Appearance Urine UA CLOUDY; Bilirubin Urine UA NEGATIVE (NEGATIVE); Color Urine UA YELLOW; Glucose Urine UA NEGATIVE (Negative); Ketones Urine UA TRACE (NEGATIVE); Leukocyte Esterase Urine UA 1+ (NEGATIVE); Nitrite Urine UA POSITIVE (Negative); Occult Blood Urine UA NEGATIVE (Negative); Protein Urine UA TRACE (Negative); Urobilinogen Urine UA 0.2 E.U./dL (0.2)
[2024-09-03 18:00] LABS: COVID-19 CEPHEID 4-PLEX PCR Negative (Negative)
[2024-09-03 18:10] LABS: Bacteria Urine Many (>30); RBC Urine None Seen (0-5/HPF); Squamous Epithelial Cell Urine None Seen (0-5/HPF); Urine Volume 10mL (spun); WBC Urine >100/HPF (0-5/HPF)
[2024-09-03 18:11] LABS: Culture Indicated Urine Specimen Cultured
[2024-09-03] MEDS: cephALEXin 250 MG CAPSULE 500 MG PO (18:55)
== END 2024-09-03 19:09 | disposition home or self-care (01) ==
PROVIDERS: Emergency Provider Student in an Organized Health Care Education/Training Program; Family Provider Family Medicine; PCP Family Medicine
DX: N39.0 Urinary tract infection, site not specified (principal); R07.9 Chest pain, unspecified
CPT/HCPCS: 0241U; 36415; 70450; 71045; 71275; 80053; 81001; 82550; 83690; 83735; 83880; 84484; 85025; 85610; 85730; 87077; 87086; 87186; 93005; 99284; Q9967

== ENCOUNTER → 2025-01-08 20:09 | Outpatient (ROUT) | payer MEDICARE, OTHER, SELFPAY ==
[2024-11-17 10:07] VITALS: BMI 26.7
== END ==
PROVIDERS: PCP Family Medicine
DX: Z79.899 Other long term (current) drug therapy (principal); B99.9 Unspecified infectious disease; L03.90 Cellulitis, unspecified
CPT/HCPCS: 87070; 87075; 87205